=== PATIENT | female | born 1960 | race Caucasian/White ===

== ENCOUNTER 2016-06-16 14:40 | Emergency (ER) | payer OTHER ==
[2016-06-16] MEDS ORDERED: ONDANSETRON 4 MG/2 ML VIAL IVP STA ×2 (17:26→18:56)
[2016-06-16] MEDS ORDERED: SODIUM CHLORIDE 0.9% 1,000 ML IV STA ×2 (17:26)
--- NOTE | 2016-06-16 17:30 | ED ---
General Adult HPI - General Chief complaint: Recheck/Abnormal Lab/Rx Stated complaint: diabetes, sugar high Time Seen by Provider: 06/16/16 17:19 Source: patient, RN notes reviewed Mode of arrival: ambulatory - History of Present Illness Initial comments: Patient is a 56-year-old female who presents emergency room today with a chief complaint of elevated blood glucose. She does admit that earlier today her meter read high. She states last dose of insulin was around lunchtime. She states after that she checked her sugar and meter was elevated. Did not give her number. She states she has had some symptoms of nausea. Does make to some lower abdominal pain. Does make to a slight migraine headache that is just starting. Patient states she's felt a little dizzy. She denies any other complaints or symptoms. Patient denies any recent fever, chills, shortness of breath, chest pain, back pain, vomiting, numbness or tingling, dysuria or hematuria, constipation or diarrhea, headaches or visual changes, or any other complaints. - Related Data Home Medications Medication Instructions Recorded Confirmed Insulin Glargine,Hum.rec.anlog 30 unit SQ HS 03/29/14 06/16/16 [Lantus Solostar] Atorvastatin [Lipitor] 80 mg PO HS 04/28/15 06/16/16 Clopidogrel [Plavix] 75 mg PO DAILY 04/28/15 06/16/16 Insulin Glulisine [Apidra] 7 unit SQ AC-TID 04/28/15 06/16/16 Levothyroxine Sodium [Synthroid] 200 mcg PO DAILY 04/28/15 06/16/16 Omeprazole [PriLOSEC] 20 mg PO BID 04/28/15 06/16/16 Venlafaxine HCl ER [Effexor XR] 150 mg PO DAILY 04/28/15 06/16/16 cloNIDine HCL [Catapres] 0.1 mg PO HS 04/28/15 06/16/16 Ergocalciferol [Vitamin D2 50,000 unit PO TU 10/11/15 06/16/16 (DRISDOL)] Aspirin 81 mg PO HS 11/09/15 06/16/16 Loratadine [Claritin] 10 mg PO DAILY 11/09/15 06/16/16 Calcium Carbonate [Calcium] 600 mg PO DAILY 03/07/16 06/16/16 Multivitamins, Thera [Multivitamin] 1 tab PO DAILY 03/07/16 06/16/16 Gabapentin [Neurontin] 300 mg PO TID 05/01/16 06/16/16 Previous Rx's Medication Instructions Recorded Linagliptin [Tradjenta] 5 mg PO DAILY #30 tablet 05/13/16 metFORMIN HCL [Glucophage] 500 mg PO AC-SUPPER tab 05/16/16 Allergies Allergy/AdvReac Type Severity Reaction Status Date / Time latex Allergy Rash/Hives Verified 06/16/16 16:45 Sulfa (Sulfonamide Allergy Rash/Hives Verified 06/16/16 16:45 Antibiotics) hydrocodone AdvReac Nausea Verified 06/16/16 16:45 prochlorperazine edisylate AdvReac Vomiting Verified 06/16/16 16:45 [From Compazine] prochlorperazine maleate AdvReac Vomiting Verified 06/16/16 16:45 [From Compazine] Review of Systems ROS Statement: Those systems with pertinent positive or pertinent negative responses have been documented in the HPI. ROS Other: All systems not noted in ROS Statement are negative. 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 Source:: URINE E.COLI, EC GALLINARUM Past Surgical History: Appendectomy, Section, Heart Catheterization Additional Past Surgical History / Comment(s): thyroidectomy(non functioning) heart cath 06-18-12 100% occluded lad unable to stent, part of lt kidney removed d /t cancer Past Anesthesia/Blood Transfusion Reactions: No Reported Reaction Past Psychological History: Anxiety, Depression Additional Psychological History / Comment(s): TAKES EFFEXOR FOR DEPRESSION STATED SHE FEELS MAINTAINED ON THAT MEDICATION.DENIES ANY THOUGHTS OF HARMING SELF.pt lives with her twin sister,is independant,gets ssi assistance. Smoking Status: Current every day smoker Past Alcohol Use History: None Reported Additional Past Alcohol Use History / Comment(s): STARTED SMOKING AT AGE 10.HAD WORKED UP TO 3 PPD BUT HAS CUT DOWN IN ATTEMP TO QUIT NOQ SMOKES 1 PPD Past Drug Use History: Marijuana Additional Drug Use History / Comment(s): OCC USES MARIJUANA-LASRT USED 1 WEEK AGO. - Past Family History Father Family Medical History: Myocardial Infarction ([place]) Additional Family Medical History / Comment(s): from mi at age 48 Mother Family Medical History: Cancer Additional Family Medical History / Comment(s): maeve breasts removed d/t cancer, hysterectomy d/t cancer General Exam - General Exam Comments Initial Comments: General: The patient is awake and alert, in no distress, and does not appear acutely ill. Eye: Pupils are equal, round and reactive to light, extra-ocular movements are intact. No nystagmus. There is normal conjunctiva bilaterally. No signs of icterus. Ears, nose, mouth and throat: There are moist mucous membranes and no oral lesions. Neck: The neck is supple, there is no tenderness or JVD. Cardiovascular: There is a regular rate and rhythm. No murmur, rub or gallop is appreciated. Respiratory: Lungs are clear to auscultation, respirations are non-labored, breath sounds are equal. No wheezes, stridor, rales, or rhonchi. Gastrointestinal: Soft, non-distended, non-tender abdomen without masses or organomegaly noted. There is no rebound or guarding present. No CVA tenderness. Bowel sounds are unremarkable. Musculoskeletal: Normal ROM, no tenderness. Strength 5/5. Sensation intact. Pulses equal bilaterally 2+. Neurological: A&O x 3. CN II-XII intact, There are no obvious motor or sensory deficits. Coordination appears grossly intact. Speech is normal. Skin: Skin is warm and dry and no rashes or lesions are noted. Psychiatric: Cooperative, appropriate mood & affect, normal judgment. Course Vital Signs 06/16/16 06/16/16 06/16/16 16:41 18:23 18:45 Temperature 97.9 F Pulse Rate 94 80 81 Respiratory 18 18 15 Rate Blood Pressure 132/82 121/71 127/79 O2 Sat by Pulse 98 98 100 Oximetry 06/16/16 19:46 Temperature Pulse Rate 86 Respiratory 16 Rate Blood Pressure 127/79 O2 Sat by Pulse 98 Oximetry EKG Findings - EKG Comments: EKG Findings:: EKG performed at 1734: Shows normal sinus rhythm at 83 beats per minute. MD interval 128. QRS 86. QT/QTC 384/451. No acute ST changes. Medical Decision Making - Medical Decision Making Patient's labs been reviewed. Does show elevated blood glucose. Patient's acetone negative. Patient feeling better after nausea medication and fluids here in emergency room. Patient's also complained of a migraine headache. States migraines located in the front. States consistent with migraines is had in the past. States she usually takes Excedrin. Was given Excedrin here in emergency room. Patient also given Toradol for migraine. States she's feeling better. Patient states she does have an appointment with her family doctor this coming week. Patient will be discharged home advised continued sliding scale and following up with family doctor. Advised return if symptoms increase or worsen or for any other concerns. - Lab Data Result diagrams: 06/16/16 18:20 06/16/16 18:20 Lab Results 06/16/16 06/16/16 06/16/16 Range/Units 17:33 18:20 18:20 WBC 5.2 (3.8-10.6) k/uL RBC 4.21 (3.80-5.40) m/uL Hgb 11.8 (11.4-16.0) gm/dL Hct 36.2 (34.0-46.0) % MCV 86.0 (80.0-100.0) fL MCH 28.1 (25.0-35.0) pg MCHC 32.7 (31.0-37.0) g/dL RDW 14.0 (11.5-15.5) % Plt Count 180 (150-450) k/uL Neutrophils % 46 % Lymphocytes % 42 % Monocytes % 5 % Eosinophils % 4 % Basophils % 0 % Neutrophils # 2.4 (1.3-7.7) k/uL Lymphocytes # 2.2 (1.0-4.8) k/uL Monocytes # 0.3 (0-1.0) k/uL Eosinophils # 0.2 (0-0.7) k/uL Basophils # 0.0 (0-0.2) k/uL Sodium 134 L (137-145) mmol/L Potassium 4.3 (3.5-5.1) mmol/L Chloride 94 L (98-107) mmol/L Carbon Dioxide 29 (22-30) mmol/L Anion Gap 11 mmol/L BUN 16 (7-17) mg/dL Creatinine 0.80 (0.52-1.04) mg/dL Est GFR (MDRD) Af Amer >60 (>60 ml/min/1.73 sqM) Est GFR (MDRD) Non-Af >60 (>60 ml/min/1.73 sqM) Glucose 465 H* (74-99) mg/dL POC Glucose (mg/dL) 515 H (75-99) mg/dL POC Glu Heat Treater Helper ID [place] Calcium 9.9 (8.4-10.2) mg/dL Total Bilirubin 0.4 (0.2-1.3) mg/dL AST 19 (14-36) U/L ALT 33 (9-52) U/L Alkaline Phosphatase 137 H (38-126) U/L Total Protein 6.5 (6.3-8.2) g/dL Albumin 4.0 (3.5-5.0) g/dL Amylase <30 L (30-110) U/L Lipase 85 (23-300) U/L Urine Color Urine Appearance (Clear) Urine pH (5.0-8.0) Ur Specific [place] (1.001-1.035) Urine Protein (Negative) Urine Glucose (UA) (Negative) Urine Ketones (Negative) Urine Blood (Negative) Urine Nitrate (Negative) Urine Bilirubin (Negative) Urine Urobilinogen (<2.0) mg/dL Ur Leukocyte Esterase (Negative) Acetone, Qual Negative (Negative) 06/16/16 06/16/16 06/16/16 Range/Units 18:20 18:48 19:45 WBC (3.8-10.6) k/uL RBC (3.80-5.40) m/uL Hgb (11.4-16.0) gm/dL Hct (34.0-46.0) % MCV (80.0-100.0) fL MCH (25.0-35.0) pg MCHC (31.0-37.0) g/dL RDW (11.5-15.5) % Plt Count (150-450) k/uL Neutrophils % % Lymphocytes % % Monocytes % % Eosinophils % % Basophils % % Neutrophils # (1.3-7.7) k/uL Lymphocytes # (1.0-4.8) k/uL Monocytes # (0-1.0) k/uL Eosinophils # (0-0.7) k/uL Basophils # (0-0.2) k/uL Sodium (137-145) mmol/L Potassium (3.5-5.1) mmol/L Chloride (98-107) mmol/L Carbon Dioxide (22-30) mmol/L Anion Gap mmol/L BUN (7-17) mg/dL Creatinine (0.52-1.04) mg/dL Est GFR (MDRD) Af Amer (>60 ml/min/1.73 sqM) Est GFR (MDRD) Non-Af (>60 ml/min/1.73 sqM) Glucose (74-99) mg/dL POC Glucose (mg/dL) 388 H 305 H (75-99) mg/dL POC Glu Heat Treater Helper ID Ana Gomez Erin Calcium (8.4-10.2) mg/dL Total Bilirubin (0.2-1.3) mg/dL AST (14-36) U/L ALT (9-52) U/L Alkaline Phosphatase (38-126) U/L Total Protein (6.3-8.2) g/dL Albumin (3.5-5.0) g/dL Amylase (30-110) U/L Lipase (23-300) U/L Urine Color Light Yellow Urine Appearance Clear (Clear) Urine pH 7.0 (5.0-8.0) Ur Specific [place] 1.019 (1.001-1.035) Urine Protein Negative (Negative) Urine Glucose (UA) 4+ H (Negative) Urine Ketones Negative (Negative) Urine Blood Negative (Negative) Urine Nitrate Negative (Negative) Urine Bilirubin Negative (Negative) Urine Urobilinogen <2.0 (<2.0) mg/dL Ur Leukocyte Esterase Negative (Negative) Acetone, Qual (Negative) Disposition Clinical Impression: Hyperglycemia, Migraine, Nausea & vomiting Disposition: HOME SELF-CARE Condition: Good Instructions: Diabetic Hyperglycemia (ED) Additional Instructions: Please follow-up with family doctor in the next 2 days of symptoms have not improved. Please return to emergency room if the symptoms increase or worsen or for any other concerns. Referrals: Josep Nagel MD [Primary Care Provider] - 1-2 days Time of Disposition: 20:02
[2016-06-16 17:34] LABS: Glucose,Whole Blood 515 mg/dL (75-99)
[2016-06-16] MEDS ORDERED: INSULIN LISPRO (humaLOG) 300 UNIT/3 ML VIAL SQ ONE ×2 (17:41→18:54)
--- NOTE | 2016-06-16 18:17 | XR ---
EXAMINATION TYPE: XR KUB DATE OF EXAM: 06/16/2016 6:10 PM COMPARISON: 05/01/2016 HISTORY: Abdominal pain TECHNIQUE: 2 views FINDINGS: Bowel gas pattern is normal. There is no sign of intestinal obstruction or pneumoperitoneum . Fecal pattern is normal. Lung bases are clear. IMPRESSION: Nonacute abdomen.
[2016-06-16] MEDS ORDERED: ASPIRIN-ACET-CAFF 250-250-65MG 1 EACH TAB PO STA (18:29)
[2016-06-16 18:42] LABS: Appearance,Urine Clear (Clear); Bilirubin,Urine Negative (Negative); Glucose,Urine (UA) 4+ (Negative); Ketones,Urine Negative (Negative); Leukocyte Esterase,Urine Negative (Negative); Nitrite,Urine Negative (Negative); Protein,Urine Negative (Negative); Specific Gravity,Urine 1.019 (1.001-1.035); UA Billing (MACRO vs. MICRO) CHEM; Urobilinogen,Urine <2.0 mg/dL (<2.0)
[2016-06-16 18:51] LABS: Basophils % (A) 0 %; CH 29.7; CHCM 34.7; Eosinophils # (A) 0.2 k/uL (0-0.7); Eosinophils % (A) 4 %; HCT 36.2 % (34.0-46.0); HDW 2.96; HGB 11.8 gm/dL (11.4-16.0); Luc % (Auto) 2; Lymphocytes # (A) 2.2 k/uL (1.0-4.8); Lymphocytes % (A) 42 %; MCH 28.1 pg (25.0-35.0); MCHC 32.7 g/dL (31.0-37.0); Mean Platelet Volume 7.8; Monocytes # (A) 0.3 k/uL (0-1.0); Monocytes % (A) 5 %; Neutrophils # (A) 2.4 k/uL (1.3-7.7); Neutrophils % (A) 46 %; RBC 4.21 m/uL (3.80-5.40); WBC 5.2 k/uL (3.8-10.6)
[2016-06-16 18:51] LABS: Glucose,Whole Blood 388 mg/dL (75-99)
[2016-06-16 18:53] LABS: ALT 33 U/L (9-52); AST 19 U/L (14-36); Alkaline Phosphatase 137 U/L (38-126); Amylase <30 U/L (30-110); Anion Gap 11 mmol/L; Blood Urea Nitrogen 16 mg/dL (7-17); Calcium 9.9 mg/dL (8.4-10.2); Carbon Dioxide 29 mmol/L (22-30); Chloride 94 mmol/L (98-107); Non-African American GFR(MDRD) >60 (>60 ml/min/1.73 sqM); Potassium 4.3 mmol/L (3.5-5.1); Sodium 134 mmol/L (137-145); Total Bilirubin 0.4 mg/dL (0.2-1.3); Total Protein 6.5 g/dL (6.3-8.2)
[2016-06-16 19:20] LABS: Glucose 465 mg/dL (74-99)
[2016-06-16] MEDS ORDERED: KETOROLAC 30 MG/ML 1 ML VIAL IVP STA (19:37)
[2016-06-16 19:46] LABS: Glucose,Whole Blood 305 mg/dL (75-99)
[2016-06-16 20:27] VITALS: BP 132/75; PULSE 83; RESP 20; TEMP 97.7
== END 2016-06-16 20:27 | disposition home or self-care (01) ==
LOC: EC 14:40
DX: E11.65 Type 2 diabetes mellitus with hyperglycemia (principal); G43.909 Migraine, unspecified, not intractable, without status migrainosus; I10 Essential (primary) hypertension; K21.9 Gastro-esophageal reflux disease without esophagitis; E78.5 Hyperlipidemia, unspecified; E07.9 Disorder of thyroid, unspecified; F32.9 Major depressive disorder, single episode, unspecified; F41.9 Anxiety disorder, unspecified; F17.200 Nicotine dependence, unspecified, uncomplicated; I25.2 Old myocardial infarction; Z79.4 Long term (current) use of insulin; Z79.84 Long term (current) use of oral hypoglycemic drugs; Z79.02 Long term (current) use of antithrombotics/antiplatelets; Z79.82 Long term (current) use of aspirin; Z79.899 Other long term (current) drug therapy; Z91.040 Latex allergy status; Z88.2 Allergy status to sulfonamides
CPT/HCPCS: 99285; 96374; 96375; 96376; 96361 ×2; 36415; 93005; 80053; 82150; 82009; 83690; 85025; 81003; 74000; J2405; J1885

== ENCOUNTER 2016-07-05 13:57 | Emergency (ER) | payer OTHER ==
[2016-07-05 14:33] VITALS: RESP 16
[2016-07-05] MEDS ORDERED: SODIUM CHLORIDE 0.9% 1,000 ML IV STA (15:00)
--- NOTE | 2016-07-05 15:03 | ED ---
General Adult HPI - General Chief complaint: Recheck/Abnormal Lab/Rx Stated complaint: High Sugar Time Seen by Provider: 07/05/16 14:55 Source: patient, RN notes reviewed Mode of arrival: wheelchair Limitations: no limitations - History of Present Illness Initial comments: 56-year-old female presents emergency Department chief complaint diarrhea, hyperglycemia. Patient states she's been having ongoing diarrhea she states she has about 3 episodes a week. Patient denies any abdominal pain associated with. She states she does have some right flank pain and she has urinary tract infections frequently. Patient denies any vomiting states she saline nauseated. Patient states that she was at [facility] in which she checked her blood sugar and told it was high. She went home rechecked it was 550. Patient states that she did take her Lantus this morning along with her pager. She states that she did not eat lunch and did not take her up he drilled at lunch. Patient states that she has not been taken her Januvia as it recently has not been covered by her insurance. Patient denies any chest pain or shortness breath. Denies any dysuria or hematuria. - Related Data Home Medications Medication Instructions Recorded Confirmed Insulin Glargine,Hum.rec.anlog 30 unit SQ W/SUPPER 03/29/14 07/05/16 [Lantus Solostar] Atorvastatin [Lipitor] 80 mg PO HS 04/28/15 07/05/16 Clopidogrel [Plavix] 75 mg PO DAILY 04/28/15 07/05/16 Insulin Glulisine [Apidra] 7 unit SQ AC-BID 04/28/15 07/05/16 Levothyroxine Sodium [Synthroid] 200 mcg PO DAILY 04/28/15 07/05/16 Omeprazole [PriLOSEC] 20 mg PO BID 04/28/15 07/05/16 Venlafaxine HCl ER [Effexor XR] 150 mg PO DAILY 04/28/15 07/05/16 cloNIDine HCL [Catapres] 0.1 mg PO HS 04/28/15 07/05/16 Ergocalciferol [Vitamin D2 50,000 unit PO TU 10/11/15 07/05/16 (DRISDOL)] Loratadine [Claritin] 10 mg PO DAILY 11/09/15 07/05/16 Calcium Carbonate [Calcium] 600 mg PO DAILY 03/07/16 07/05/16 Multivitamins, Thera [Multivitamin] 1 tab PO DAILY 03/07/16 07/05/16 Gabapentin [Neurontin] 300 mg PO TID 05/01/16 07/05/16 Insulin Glargine,Hum.rec.anlog 15 unit SQ DAILY 07/05/16 07/05/16 [Lantus Solostar] metFORMIN HCL [Glucophage] 500 mg PO BID 07/05/16 07/05/16 Previous Rx's Medication Instructions Recorded Linagliptin [Tradjenta] 5 mg PO DAILY #30 tablet 05/13/16 Ondansetron Odt [Zofran ODT] 4 mg PO Q8HR PRN #15 tab 06/16/16 Allergies Allergy/AdvReac Type Severity Reaction Status Date / Time latex Allergy Rash/Hives Verified 07/05/16 14:50 Sulfa (Sulfonamide Allergy Rash/Hives Verified 07/05/16 14:50 Antibiotics) hydrocodone AdvReac Nausea Verified 07/05/16 14:50 prochlorperazine edisylate AdvReac Vomiting Verified 07/05/16 14:50 [From Compazine] prochlorperazine maleate AdvReac Vomiting Verified 07/05/16 14:50 [From Compazine] Review of Systems ROS Statement: Those systems with pertinent positive or pertinent negative responses have been documented in the HPI. ROS Other: All systems not noted in ROS Statement are negative. 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 Source:: URINE E.COLI, EC GALLINARUM Past Surgical History: Appendectomy, Section, Heart Catheterization Additional Past Surgical History / Comment(s): thyroidectomy(non functioning) heart cath 06-18-12 100% occluded lad unable to stent, part of lt kidney removed d /t cancer Past Anesthesia/Blood Transfusion Reactions: No Reported Reaction Past Psychological History: Anxiety, Depression Additional Psychological History / Comment(s): TAKES EFFEXOR FOR DEPRESSION STATED SHE FEELS MAINTAINED ON THAT MEDICATION.DENIES ANY THOUGHTS OF HARMING SELF.pt lives with her twin sister,is independant,gets ssi assistance. Smoking Status: Current every day smoker Past Alcohol Use History: None Reported Additional Past Alcohol Use History / Comment(s): STARTED SMOKING AT AGE 10.HAD WORKED UP TO 3 PPD BUT HAS CUT DOWN IN ATTEMP TO QUIT NOQ SMOKES 1 PPD Past Drug Use History: Marijuana Additional Drug Use History / Comment(s): OCC USES MARIJUANA-LASRT USED 1 WEEK AGO. - Past Family History Father Family Medical History: Myocardial Infarction ([place]) Additional Family Medical History / Comment(s): from [place] at age 48 Mother Family Medical History: Cancer Additional Family Medical History / Comment(s): maeve breasts removed d/t cancer, hysterectomy d/t cancer General Exam Limitations: no limitations General appearance: alert, in no apparent distress Head exam: Present: atraumatic, normocephalic, normal inspection Neck exam: Present: normal inspection, full ROM. Absent: tenderness, meningismus, lymphadenopathy Respiratory exam: Present: normal lung sounds bilaterally. Absent: respiratory distress, wheezes, rales, rhonchi, stridor Cardiovascular Exam: Present: normal rhythm, tachycardia, normal heart sounds. Absent: systolic murmur, diastolic murmur, rubs, gallop, clicks GI/Abdominal exam: Present: soft, normal bowel sounds. Absent: distended, tenderness, guarding, rebound, rigid Back exam: Absent: CVA tenderness (R), CVA tenderness (L) Skin exam: Present: warm, dry, intact, normal color. Absent: rash Course Vital Signs 07/05/16 07/05/16 14:29 15:56 Temperature 98.3 F Pulse Rate 118 H 88 Respiratory 16 16 Rate Blood Pressure 110/75 118/74 O2 Sat by Pulse 96 Oximetry Medical Decision Making - Medical Decision Making 56-year-old female presented emergency department with chief complaint of hyperglycemia. Patient's hyperglycemia is most likely related to her not taken her Januvia. I discussed her that she is on insulin and that if she is not going to take oral medications that they need to adjust her insulin dosing. Patient blood glucose went from 620 07/19/1963. Patient is requesting to be discharged at this time. I did advise that she needs to closely monitor her blood sugar at home, give herself her a Gee weavershakiraleandreturnifsymptomsworsen. - Lab Data Result diagrams: 07/05/16 15:36 07/05/16 15:36 Lab Results 07/05/16 07/05/16 07/05/16 Range/Units 15:36 15:36 15:36 WBC 6.6 (3.8-10.6) k/uL RBC 4.67 (3.80-5.40) m/uL Hgb 13.2 (11.4-16.0) gm/dL Hct 39.9 (34.0-46.0) % MCV 85.5 (80.0-100.0) fL MCH 28.3 (25.0-35.0) pg MCHC 33.1 (31.0-37.0) g/dL RDW 13.9 (11.5-15.5) % Plt Count 227 (150-450) k/uL Neutrophils % 64 % Lymphocytes % 29 % Monocytes % 3 % Eosinophils % 2 % Basophils % 0 % Neutrophils # 4.2 (1.3-7.7) k/uL Lymphocytes # 1.9 (1.0-4.8) k/uL Monocytes # 0.2 (0-1.0) k/uL Eosinophils # 0.2 (0-0.7) k/uL Basophils # 0.0 (0-0.2) k/uL Sodium 134 L (137-145) mmol/L Potassium 4.5 (3.5-5.1) mmol/L Chloride 95 L (98-107) mmol/L Carbon Dioxide 24 (22-30) mmol/L Anion Gap 15 mmol/L BUN 17 (7-17) mg/dL Creatinine 0.78 (0.52-1.04) mg/dL Est GFR (MDRD) Af Amer >60 (>60 ml/min/1.73 sqM) Est GFR (MDRD) Non-Af >60 (>60 ml/min/1.73 sqM) Glucose 620 H* (74-99) mg/dL POC Glucose (mg/dL) (75-99) mg/dL POC Glu Speech And Language Assistant ID Calcium 10.1 (8.4-10.2) mg/dL Total Bilirubin 0.5 (0.2-1.3) mg/dL AST 20 (14-36) U/L ALT 31 (9-52) U/L Alkaline Phosphatase 191 H (38-126) U/L Total Protein 7.3 (6.3-8.2) g/dL Albumin 4.3 (3.5-5.0) g/dL Amylase <30 L (30-110) U/L Lipase 105 (23-300) U/L Urine Color Light Yellow Urine Appearance Clear (Clear) Urine pH 5.0 (5.0-8.0) Ur Specific [place] 1.025 (1.001-1.035) Urine Protein Negative (Negative) Urine Glucose (UA) 4+ H (Negative) Urine Ketones Negative (Negative) Urine Blood Negative (Negative) Urine Nitrate Negative (Negative) Urine Bilirubin Negative (Negative) Urine Urobilinogen <2.0 (<2.0) mg/dL Ur Leukocyte Esterase Negative (Negative) Acetone, Qual Negative (Negative) 07/05/16 07/05/16 07/05/16 Range/Units 15:51 15:52 17:27 WBC (3.8-10.6) k/uL RBC (3.80-5.40) m/uL Hgb (11.4-16.0) gm/dL Hct (34.0-46.0) % MCV (80.0-100.0) fL MCH (25.0-35.0) pg MCHC (31.0-37.0) g/dL RDW (11.5-15.5) % Plt Count (150-450) k/uL Neutrophils % % Lymphocytes % % Monocytes % % Eosinophils % % Basophils % % Neutrophils # (1.3-7.7) k/uL Lymphocytes # (1.0-4.8) k/uL Monocytes # (0-1.0) k/uL Eosinophils # (0-0.7) k/uL Basophils # (0-0.2) k/uL Sodium (137-145) mmol/L Potassium (3.5-5.1) mmol/L Chloride (98-107) mmol/L Carbon Dioxide (22-30) mmol/L Anion Gap mmol/L BUN (7-17) mg/dL Creatinine (0.52-1.04) mg/dL Est GFR (MDRD) Af Amer (>60 ml/min/1.73 sqM) Est GFR (MDRD) Non-Af (>60 ml/min/1.73 sqM) Glucose (74-99) mg/dL POC Glucose (mg/dL) 577 H 592 H 364 H (75-99) mg/dL POC Glu Speech And Language Assistant Melvin Connor, Debbie Cooper Calcium (8.4-10.2) mg/dL Total Bilirubin (0.2-1.3) mg/dL AST (14-36) U/L ALT (9-52) U/L Alkaline Phosphatase (38-126) U/L Total Protein (6.3-8.2) g/dL Albumin (3.5-5.0) g/dL Amylase (30-110) U/L Lipase (23-300) U/L Urine Color Urine Appearance (Clear) Urine pH (5.0-8.0) Ur Specific [place] (1.001-1.035) Urine Protein (Negative) Urine Glucose (UA) (Negative) Urine Ketones (Negative) Urine Blood (Negative) Urine Nitrate (Negative) Urine Bilirubin (Negative) Urine Urobilinogen (<2.0) mg/dL Ur Leukocyte Esterase (Negative) Acetone, Qual (Negative) Disposition Clinical Impression: Hyperglycemia Disposition: HOME SELF-CARE Condition: Stable Instructions: Diabetic Hyperglycemia (ED) Additional Instructions: Please return to the Emergency Department if symptoms worsen or any other concerns. Time of Disposition: 17:33
[2016-07-05 15:44] LABS: Basophils % (A) 0 %; CHCM 34.1; Eosinophils # (A) 0.2 k/uL (0-0.7); Eosinophils % (A) 2 %; HCT 39.9 % (34.0-46.0); HDW 3.19; HGB 13.2 gm/dL (11.4-16.0); Luc # (Auto) 0.08; Luc % (Auto) 1; Lymphocytes # (A) 1.9 k/uL (1.0-4.8); Lymphocytes % (A) 29 %; MCH 28.3 pg (25.0-35.0); MCHC 33.1 g/dL (31.0-37.0); MCV 85.5 fL (80.0-100.0); Mean Platelet Volume 7.4; Monocytes # (A) 0.2 k/uL (0-1.0); Monocytes % (A) 3 %; Neutrophils # (A) 4.2 k/uL (1.3-7.7); Neutrophils % (A) 64 %; RBC 4.67 m/uL (3.80-5.40); RDW 13.9 % (11.5-15.5); WBC 6.6 k/uL (3.8-10.6); WBC (Perox) 6.71
[2016-07-05 15:48] LABS: Appearance,Urine Clear (Clear); Bilirubin,Urine Negative (Negative); Glucose,Urine (UA) 4+ (Negative); Ketones,Urine Negative (Negative); Leukocyte Esterase,Urine Negative (Negative); Nitrite,Urine Negative (Negative); Protein,Urine Negative (Negative); Specific Gravity,Urine 1.025 (1.001-1.035); UA Billing (MACRO vs. MICRO) CHEM; Urobilinogen,Urine <2.0 mg/dL (<2.0)
[2016-07-05] MEDS ORDERED: INSULIN REGULAR 100 UNIT/ML VIAL IV ONE (15:55)
[2016-07-05 16:05] LABS: Glucose,Whole Blood 577 mg/dL (75-99)
[2016-07-05 16:05] LABS: Glucose,Whole Blood 592 mg/dL (75-99)
[2016-07-05 16:31] LABS: ALT 31 U/L (9-52); AST 20 U/L (14-36); Alkaline Phosphatase 191 U/L (38-126); Amylase <30 U/L (30-110); Anion Gap 15 mmol/L; Blood Urea Nitrogen 17 mg/dL (7-17); Calcium 10.1 mg/dL (8.4-10.2); Carbon Dioxide 24 mmol/L (22-30); Chloride 95 mmol/L (98-107); Non-African American GFR(MDRD) >60 (>60 ml/min/1.73 sqM); Potassium 4.5 mmol/L (3.5-5.1); Sodium 134 mmol/L (137-145); Total Bilirubin 0.5 mg/dL (0.2-1.3); Total Protein 7.3 g/dL (6.3-8.2)
[2016-07-05 16:40] LABS: Glucose 620 mg/dL (74-99)
[2016-07-05] MEDS ORDERED: SODIUM CHLORIDE 0.9% 1,000 ML IV ONE (16:42)
[2016-07-05 17:30] LABS: Glucose,Whole Blood 364 mg/dL (75-99)
[2016-07-05 17:54] VITALS: BP 128/82; PULSE 76; TEMP 98
[2016-07-05] MEDS ORDERED: KETOROLAC 30 MG/ML 1 ML VIAL IVP STA (18:04)
== END 2016-07-05 18:35 | disposition home or self-care (01) ==
LOC: EC 13:57
DX: E11.65 Type 2 diabetes mellitus with hyperglycemia (principal); R19.7 Diarrhea, unspecified; I10 Essential (primary) hypertension; R10.9 Unspecified abdominal pain; E78.5 Hyperlipidemia, unspecified; E07.9 Disorder of thyroid, unspecified; K21.9 Gastro-esophageal reflux disease without esophagitis; I25.2 Old myocardial infarction; F32.9 Major depressive disorder, single episode, unspecified; F41.9 Anxiety disorder, unspecified; G25.81 Restless legs syndrome; J45.909 Unspecified asthma, uncomplicated; Z85.528 Personal history of other malignant neoplasm of kidney; Z79.4 Long term (current) use of insulin; Z79.02 Long term (current) use of antithrombotics/antiplatelets; Z79.84 Long term (current) use of oral hypoglycemic drugs; Z88.5 Allergy status to narcotic agent; Z88.2 Allergy status to sulfonamides; Z88.8 Allergy status to other drugs, medicaments and biological substances; Z91.040 Latex allergy status; F17.200 Nicotine dependence, unspecified, uncomplicated; Z87.440 Personal history of urinary (tract) infections
CPT/HCPCS: 36415; 80053; 82150; 82009; 83690; 85025; 81003; 87086; 96374; 96361 ×3; 99283; J1885

== ENCOUNTER 2016-09-04 14:52 | Emergency (ER) | payer OTHER ==
[2016-09-04 15:03] LABS: Glucose,Whole Blood 166 mg/dL (75-99)
[2016-09-04 15:08] VITALS: RESP 16
--- NOTE | 2016-09-04 16:01 | ED ---
General Adult HPI - General Chief complaint: Dizziness Stated complaint: VERTIGO, DIABETIC Time Seen by Provider: 09/04/16 15:01 Source: patient, EMS, RN notes reviewed, old records reviewed Mode of arrival: EMS Limitations: no limitations - History of Present Illness Initial comments: This is a 56-year-old female with a ER for evaluation. Today this patient presents for evaluation of multiple complaints. Patient states she has history of dizziness with history of vertigo for 3 weeks. Patient also complains of her blood sugar being low. Patient did take some sugar at home. Patient has multiple medical comorbidities is but states her main issue right now is that she wants to kill her boyfriend. He's been going in and out of the emergency room or see her heart attack and that is something that bothers her. She states she is very stressed very depressed and has been admitted to psychiatric floor and states that she needs psychiatric treatment at this time - Related Data Home Medications Medication Instructions Recorded Confirmed Insulin Glargine,Hum.rec.anlog 30 unit SQ W/SUPPER 03/29/14 09/04/16 [Lantus Solostar] Clopidogrel [Plavix] 75 mg PO DAILY 04/28/15 09/04/16 Insulin Glulisine [Apidra] 10 unit SQ AC-BID 04/28/15 09/04/16 Levothyroxine Sodium [Synthroid] 200 mcg PO DAILY 04/28/15 09/04/16 Omeprazole [PriLOSEC] 40 mg PO DAILY 04/28/15 09/04/16 Venlafaxine HCl ER [Effexor XR] 150 mg PO DAILY 04/28/15 09/04/16 cloNIDine HCL [Catapres] 0.1 mg PO HS 04/28/15 09/04/16 Ergocalciferol [Vitamin D2 50,000 unit PO TU 10/11/15 09/04/16 (DRISDOL)] Insulin Glargine,Hum.rec.anlog 20 unit SQ W/BRKFST 07/05/16 09/04/16 [Lantus Solostar] Aspirin [Adult Low Dose Aspirin EC] 81 mg PO DAILY 09/04/16 09/04/16 Atorvastatin [Lipitor] 40 mg PO HS 09/04/16 09/04/16 Baclofen 10 mg PO DAILY 09/04/16 09/04/16 Insulin Glargine,Hum.rec.anlog 10 unit SQ W/LUNCH 09/04/16 09/04/16 [Lantus Solostar] Naproxen [Naprosyn] 500 mg PO BID 09/04/16 09/04/16 Allergies Allergy/AdvReac Type Severity Reaction Status Date / Time bee pollen Allergy Unknown Verified 09/04/16 15:26 latex Allergy Rash/Hives Verified 09/04/16 15:26 Sulfa (Sulfonamide Allergy Rash/Hives Verified 09/04/16 15:26 Antibiotics) hydrocodone AdvReac Nausea Verified 09/04/16 15:26 morphine AdvReac Unknown Verified 09/04/16 15:26 prochlorperazine edisylate AdvReac Vomiting Verified 09/04/16 15:26 [From Compazine] prochlorperazine maleate AdvReac Vomiting Verified 09/04/16 15:26 [From Compazine] Review of Systems ROS Statement: Those systems with pertinent positive or pertinent negative responses have been documented in the HPI. ROS Other: All systems not noted in ROS Statement are negative. Past Medical History Past Medical History: Asthma, Cancer, Chest Pain / Angina, Diabetes Mellitus, GERD/Reflux, Hyperlipidemia, Hypertension, Myocardial Infarction ([place]), Thyroid Disorder Additional Past Medical History / Comment(s): rls, KIDNEY CANCER, Last Myocardial Infarction Date:: 2012 History of Any Multi-Drug Resistant Organisms: ESBL Date of last positivie culture/infection: 05/07/16 ESBL, 05/15/16 VRE MDRO Source:: URINE E.COLI, EC GALLINARUM Past Surgical History: Appendectomy, Section, Heart Catheterization Additional Past Surgical History / Comment(s): thyroidectomy(non functioning) heart cath 06-18-12 100% occluded lad unable to stent, part of lt kidney removed d /t cancer Past Anesthesia/Blood Transfusion Reactions: No Reported Reaction Past Psychological History: Anxiety, Depression Additional Psychological History / Comment(s): TAKES EFFEXOR FOR DEPRESSION STATED SHE FEELS MAINTAINED ON THAT MEDICATION.DENIES ANY THOUGHTS OF HARMING SELF.pt lives with her twin sister,is independant,gets ssi assistance. Smoking Status: Current every day smoker Past Alcohol Use History: None Reported Additional Past Alcohol Use History / Comment(s): STARTED SMOKING AT AGE 10.HAD WORKED UP TO 3 PPD BUT HAS CUT DOWN IN ATTEMP TO QUIT NOQ SMOKES 1 PPD Past Drug Use History: Marijuana Additional Drug Use History / Comment(s): OCC USES MARIJUANA-LASRT USED 1 WEEK AGO. - Past Family History Father Family Medical History: Myocardial Infarction ([place]) Additional Family Medical History / Comment(s): from [place] at age 48 Mother Family Medical History: Cancer Additional Family Medical History / Comment(s): maeve breasts removed d/t cancer, hysterectomy d/t cancer General Exam Limitations: no limitations General appearance: alert, in no apparent distress Head exam: Present: atraumatic, normocephalic, normal inspection Eye exam: Present: normal appearance, PERRL, EOMI. Absent: scleral icterus, conjunctival injection, periorbital swelling ENT exam: Present: normal exam, mucous membranes moist Neck exam: Present: normal inspection. Absent: tenderness, meningismus, lymphadenopathy Respiratory exam: Present: normal lung sounds bilaterally. Absent: respiratory distress, wheezes, rales, rhonchi, stridor Cardiovascular Exam: Present: regular rate, normal rhythm, normal heart sounds. Absent: systolic murmur, diastolic murmur, rubs, gallop, clicks GI/Abdominal exam: Present: soft, normal bowel sounds. Absent: distended, tenderness, guarding, rebound, rigid Extremities exam: Present: normal inspection, full ROM, normal capillary refill. Absent: tenderness, pedal edema, joint swelling, calf tenderness Back exam: Present: normal inspection Neurological exam: Present: alert, oriented X3, CN II-XII intact Psychiatric exam: Present: normal affect, normal mood Skin exam: Present: warm, dry, intact, normal color. 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
[2016-09-04 19:46] VITALS: BP 129/77; PULSE 77; TEMP 98.1
== END 2016-09-04 19:45 | disposition home or self-care (01) ==
LOC: EC 14:52
DX: E11.9 Type 2 diabetes mellitus without complications (principal); F32.9 Major depressive disorder, single episode, unspecified; R42 Dizziness and giddiness; K21.9 Gastro-esophageal reflux disease without esophagitis; E78.5 Hyperlipidemia, unspecified; F41.9 Anxiety disorder, unspecified; I10 Essential (primary) hypertension; I25.2 Old myocardial infarction; E07.9 Disorder of thyroid, unspecified; F17.200 Nicotine dependence, unspecified, uncomplicated; Z79.4 Long term (current) use of insulin; Z79.82 Long term (current) use of aspirin; Z79.1 Long term (current) use of non-steroidal anti-inflammatories (NSAID); Z79.899 Other long term (current) drug therapy; Z91.030 Bee allergy status; Z91.040 Latex allergy status; Z88.2 Allergy status to sulfonamides; Z88.5 Allergy status to narcotic agent; Z88.8 Allergy status to other drugs, medicaments and biological substances; Z95.818 Presence of other cardiac implants and grafts
CPT/HCPCS: 36415; 82075; 99284

== ENCOUNTER 2016-09-16 07:50 | Inpatient (IN) | payer OTHER ==
[2016-09-16] MEDS ORDERED: SODIUM CHLORIDE 0.9% 1,000 ML IV STA (08:05)
[2016-09-16] MEDS ORDERED: ONDANSETRON 4 MG/2 ML VIAL IVP STA (08:21)
[2016-09-16] MEDS ORDERED: HYDROmorphone 1 MG/ML 1 ML SYRINGE IVP STA ×2 (08:21→11:02)
--- NOTE | 2016-09-16 08:32 | ED ---
Abdominal Pain HPI - General Chief Complaint: Abdominal Pain Stated Complaint: abd pain,diff breathing Time Seen by Provider: 09/16/16 08:04 Source: patient, EMS Mode of arrival: EMS - History of Present Illness Initial Comments: 56-year-old female patient presents to emergency department today for evaluation of upper abdominal pain and multiple episodes of vomiting. She states that symptoms started last night. Patient describes the pain as sharp and crampy, mostly in the left upper quadrant. She denies any constipation or diarrhea. She denies any blood in her vomit. Patient denies any dysuria, hematuria, urinary urgency. She states she has been urinating more frequently. Patient states she is mildly short of breath. She does have a cough but states this is chronic due to her smoking. She denies any chest, neck, or back pain. She denies any fever or chills. - Related Data Home Medications Medication Instructions Recorded Confirmed Insulin Glargine,Hum.rec.anlog 30 unit SQ W/SUPPER 03/29/14 09/16/16 [Lantus Solostar] Clopidogrel [Plavix] 75 mg PO DAILY 04/28/15 09/16/16 Insulin Glulisine [Apidra] 10 unit SQ AC-BID 04/28/15 09/16/16 Levothyroxine Sodium [Synthroid] 200 mcg PO DAILY 04/28/15 09/16/16 Omeprazole [PriLOSEC] 40 mg PO DAILY 04/28/15 09/16/16 Venlafaxine HCl ER [Effexor XR] 150 mg PO DAILY 04/28/15 09/16/16 cloNIDine HCL [Catapres] 0.1 mg PO HS 04/28/15 09/16/16 Ergocalciferol [Vitamin D2 50,000 unit PO TU 10/11/15 09/16/16 (DRISDOL)] Insulin Glargine,Hum.rec.anlog 20 unit SQ W/BRKFST 07/05/16 09/16/16 [Lantus Solostar] Aspirin [Adult Low Dose Aspirin EC] 81 mg PO DAILY 09/04/16 09/16/16 Atorvastatin [Lipitor] 40 mg PO HS 09/04/16 09/16/16 Baclofen 10 mg PO DAILY 09/04/16 09/16/16 Insulin Glargine,Hum.rec.anlog 10 unit SQ W/LUNCH 09/04/16 09/16/16 [Lantus Solostar] Naproxen [Naprosyn] 500 mg PO BID 09/04/16 09/16/16 Allergies Allergy/AdvReac Type Severity Reaction Status Date / Time bee pollen Allergy Unknown Verified 09/16/16 08:26 latex Allergy Rash/Hives Verified 09/16/16 08:26 Sulfa (Sulfonamide Allergy Rash/Hives Verified 09/16/16 08:26 Antibiotics) hydrocodone AdvReac Nausea Verified 09/16/16 08:26 morphine AdvReac Unknown Verified 09/16/16 08:26 prochlorperazine edisylate AdvReac Vomiting Verified 09/16/16 08:26 [From Compazine] prochlorperazine maleate AdvReac Vomiting Verified 09/16/16 08:26 [From Compazine] Review of Systems ROS Statement: Those systems with pertinent positive or pertinent negative responses have been documented in the HPI. ROS Other: All systems not noted in ROS Statement are negative. Past Medical History Past Medical History: Asthma, Cancer, Chest Pain / Angina, Diabetes Mellitus, GERD/Reflux, Hyperlipidemia, Hypertension, Myocardial Infarction ([place]), Thyroid Disorder Additional Past Medical History / Comment(s): rls, KIDNEY CANCER, Last Myocardial Infarction Date:: 2012 History of Any Multi-Drug Resistant Organisms: ESBL Date of last positivie culture/infection: 05/07/16 ESBL, 05/15/16 VRE MDRO Source:: URINE E.COLI, EC GALLINARUM Past Surgical History: Appendectomy, Section, Heart Catheterization Additional Past Surgical History / Comment(s): thyroidectomy(non functioning) heart cath 06-18-12 100% occluded lad unable to stent, part of lt kidney removed d /t cancer Past Anesthesia/Blood Transfusion Reactions: No Reported Reaction Past Psychological History: Anxiety, Depression Additional Psychological History / Comment(s): TAKES EFFEXOR FOR DEPRESSION STATED SHE FEELS MAINTAINED ON THAT MEDICATION.DENIES ANY THOUGHTS OF HARMING SELF.pt lives with her twin sister,is independant,gets ssi assistance. Smoking Status: Current every day smoker Past Alcohol Use History: None Reported Additional Past Alcohol Use History / Comment(s): STARTED SMOKING AT AGE 10.HAD WORKED UP TO 3 PPD BUT HAS CUT DOWN IN ATTEMP TO QUIT NOQ SMOKES 1 PPD Past Drug Use History: Marijuana Additional Drug Use History / Comment(s): OCC USES MARIJUANA-LASRT USED 1 WEEK AGO. - Past Family History Father Family Medical History: Myocardial Infarction ([place]) Additional Family Medical History / Comment(s): from [place] at age 48 Mother Family Medical History: Cancer Additional Family Medical History / Comment(s): maeve breasts removed d/t cancer, hysterectomy d/t cancer General Exam General appearance: alert, in no apparent distress Eye exam: Present: normal appearance, PERRL, EOMI. Absent: scleral icterus, conjunctival injection, periorbital swelling ENT exam: Present: normal exam, normal oropharynx, mucous membranes moist Neck exam: Present: normal inspection. Absent: tenderness, meningismus, lymphadenopathy Respiratory exam: Present: normal lung sounds bilaterally. Absent: respiratory distress, wheezes, rales, rhonchi, stridor Cardiovascular Exam: Present: normal rhythm, tachycardia, normal heart sounds. Absent: systolic murmur, diastolic murmur, rubs, gallop, clicks GI/Abdominal exam: Present: soft, tenderness (Left upper quadrant, midepigastric ), normal bowel sounds. Absent: distended, guarding, rebound, rigid Back exam: Present: normal inspection Neurological exam: Present: alert, oriented X3, CN II-XII intact Psychiatric exam: Present: normal affect, normal mood Skin exam: Present: warm, dry, intact, normal color. Absent: rash Course Vital Signs 09/16/16 09/16/16 09/16/16 07:51 09:53 11:10 Temperature 98.8 F 99.3 F 98.3 F Pulse Rate 126 H 110 H 110 H Respiratory 18 16 18 Rate Blood Pressure 164/91 121/69 163/97 O2 Sat by Pulse 98 99 98 Oximetry Medical Decision Making - Medical Decision Making Case was discussed with Dr. Hill by Dr. Dawkins. They felt they she may need ICU treatment. He did discuss with Dr. melchor and felt that she is stable for telemetry. Patient was started on antibiotics at this time consult surgery. Patient most likely has lung metastasis from her prior kidney cancer rather than septic emboli. Patient will be treated for pneumonia and small bowel obstruction.. Patient has no vomiting at this time. - Lab Data Result diagrams: 09/16/16 08:00 09/16/16 08:00 Lab Results 09/16/16 09/16/16 09/16/16 Range/Units 08:00 08:00 08:00 WBC 7.7 (3.8-10.6) k/uL RBC 4.83 (3.80-5.40) m/uL Hgb 13.4 (11.4-16.0) gm/dL Hct 42.8 (34.0-46.0) % MCV 88.6 (80.0-100.0) fL MCH 27.7 (25.0-35.0) pg MCHC 31.3 (31.0-37.0) g/dL RDW 13.9 (11.5-15.5) % Plt Count 266 (150-450) k/uL Neutrophils % 73 % Lymphocytes % 21 % Monocytes % 3 % Eosinophils % 1 % Basophils % 0 % Neutrophils # 5.6 (1.3-7.7) k/uL Lymphocytes # 1.6 (1.0-4.8) k/uL Monocytes # 0.2 (0-1.0) k/uL Eosinophils # 0.1 (0-0.7) k/uL Basophils # 0.0 (0-0.2) k/uL PT 10.4 (9.0-12.0) sec INR 1.0 (<1.1) APTT 18.6 L (22.0-30.0) sec D-Dimer (<0.60) mg/L FEU Sodium 143 (137-145) mmol/L Potassium 5.2 H (3.5-5.1) mmol/L Chloride 101 (98-107) mmol/L Carbon Dioxide 28 (22-30) mmol/L Anion Gap 14 mmol/L BUN 13 (7-17) mg/dL Creatinine 0.64 (0.52-1.04) mg/dL Est GFR (MDRD) Af Amer >60 (>60 ml/min/1.73 sqM) Est GFR (MDRD) Non-Af >60 (>60 ml/min/1.73 sqM) Glucose 365 H (74-99) mg/dL Calcium 10.3 H (8.4-10.2) mg/dL Total Bilirubin 0.6 (0.2-1.3) mg/dL AST 22 (14-36) U/L ALT 36 (9-52) U/L Alkaline Phosphatase 168 H (38-126) U/L Troponin I (0.000-0.034) ng/mL Total Protein 7.4 (6.3-8.2) g/dL Albumin 4.3 (3.5-5.0) g/dL Amylase 47 (30-110) U/L Lipase 63 (23-300) U/L Urine Color Urine Appearance (Clear) Urine pH (5.0-8.0) Ur Specific [place] (1.001-1.035) Urine Protein (Negative) Urine Glucose (UA) (Negative) Urine Ketones (Negative) Urine Blood (Negative) Urine Nitrite (Negative) Urine Bilirubin (Negative) Urine Urobilinogen (<2.0) mg/dL Ur Leukocyte Esterase (Negative) Acetone, Qual (Negative) 09/16/16 09/16/16 09/16/16 Range/Units 08:00 08:00 08:00 WBC (3.8-10.6) k/uL RBC (3.80-5.40) m/uL Hgb (11.4-16.0) gm/dL Hct (34.0-46.0) % MCV (80.0-100.0) fL MCH (25.0-35.0) pg MCHC (31.0-37.0) g/dL RDW (11.5-15.5) % Plt Count (150-450) k/uL Neutrophils % % Lymphocytes % % Monocytes % % Eosinophils % % Basophils % % Neutrophils # (1.3-7.7) k/uL Lymphocytes # (1.0-4.8) k/uL Monocytes # (0-1.0) k/uL Eosinophils # (0-0.7) k/uL Basophils # (0-0.2) k/uL PT (9.0-12.0) sec INR (<1.1) APTT (22.0-30.0) sec D-Dimer 13.57 H (<0.60) mg/L FEU Sodium (137-145) mmol/L Potassium (3.5-5.1) mmol/L Chloride (98-107) mmol/L Carbon Dioxide (22-30) mmol/L Anion Gap mmol/L BUN (7-17) mg/dL Creatinine (0.52-1.04) mg/dL Est GFR (MDRD) Af Amer (>60 ml/min/1.73 sqM) Est GFR (MDRD) Non-Af (>60 ml/min/1.73 sqM) Glucose (74-99) mg/dL Calcium (8.4-10.2) mg/dL Total Bilirubin (0.2-1.3) mg/dL AST (14-36) U/L ALT (9-52) U/L Alkaline Phosphatase (38-126) U/L Troponin I <0.012 (0.000-0.034) ng/mL Total Protein (6.3-8.2) g/dL Albumin (3.5-5.0) g/dL Amylase (30-110) U/L Lipase (23-300) U/L Urine Color Urine Appearance (Clear) Urine pH (5.0-8.0) Ur Specific [place] (1.001-1.035) Urine Protein (Negative) Urine Glucose (UA) (Negative) Urine Ketones (Negative) Urine Blood (Negative) Urine Nitrite (Negative) Urine Bilirubin (Negative) Urine Urobilinogen (<2.0) mg/dL Ur Leukocyte Esterase (Negative) Acetone, Qual Positive (Negative) 09/16/16 Range/Units 09:12 WBC (3.8-10.6) k/uL RBC (3.80-5.40) m/uL Hgb (11.4-16.0) gm/dL Hct (34.0-46.0) % MCV (80.0-100.0) fL MCH (25.0-35.0) pg MCHC (31.0-37.0) g/dL RDW (11.5-15.5) % Plt Count (150-450) k/uL Neutrophils % % Lymphocytes % % Monocytes % % Eosinophils % % Basophils % % Neutrophils # (1.3-7.7) k/uL Lymphocytes # (1.0-4.8) k/uL Monocytes # (0-1.0) k/uL Eosinophils # (0-0.7) k/uL Basophils # (0-0.2) k/uL PT (9.0-12.0) sec INR (<1.1) APTT (22.0-30.0) sec D-Dimer (<0.60) mg/L FEU Sodium (137-145) mmol/L Potassium (3.5-5.1) mmol/L Chloride (98-107) mmol/L Carbon Dioxide (22-30) mmol/L Anion Gap mmol/L BUN (7-17) mg/dL Creatinine (0.52-1.04) mg/dL Est GFR (MDRD) Af Amer (>60 ml/min/1.73 sqM) Est GFR (MDRD) Non-Af (>60 ml/min/1.73 sqM) Glucose (74-99) mg/dL Calcium (8.4-10.2) mg/dL Total Bilirubin (0.2-1.3) mg/dL AST (14-36) U/L ALT (9-52) U/L Alkaline Phosphatase (38-126) U/L Troponin I (0.000-0.034) ng/mL Total Protein (6.3-8.2) g/dL Albumin (3.5-5.0) g/dL Amylase (30-110) U/L Lipase (23-300) U/L Urine Color Yellow Urine Appearance Clear (Clear) Urine pH 6.5 (5.0-8.0) Ur Specific [place] 1.019 (1.001-1.035) Urine Protein Negative (Negative) Urine Glucose (UA) 4+ H (Negative) Urine Ketones Trace H (Negative) Urine Blood Negative (Negative) Urine Nitrite Negative (Negative) Urine Bilirubin Negative (Negative) Urine Urobilinogen <2.0 (<2.0) mg/dL Ur Leukocyte Esterase Negative (Negative) Acetone, Qual (Negative) - EKG Data -: EKG Interpreted by Me 09/16/16 08:35 EKG obtained at 08 26 reveals sinus tachycardia, minimal voltage criteria for LVH, or maybe normal variant. Anterior infarct with age undetermined. Ventricular rate 120, VA interval 140, QRS duration 84, QT 332, QTC 469. No evidence of ST elevation or depression. Disposition Clinical Impression: Small bowel obstruction, Pneumonia, Lung metastasis, DKA (diabetic ketoacidoses ) Disposition: ADMITTED IP TO THIS [facility] Condition: Fair
[2016-09-16 08:43] LABS: Basophils % (A) 0 %; CH 28.3; CHCM 32.1; Eosinophils # (A) 0.1 k/uL (0-0.7); Eosinophils % (A) 1 %; HCT 42.8 % (34.0-46.0); HGB 13.4 gm/dL (11.4-16.0); Luc # (Auto) 0.09; Luc % (Auto) 1; Lymphocytes # (A) 1.6 k/uL (1.0-4.8); Lymphocytes % (A) 21 %; MCH 27.7 pg (25.0-35.0); MCHC 31.3 g/dL (31.0-37.0); MCV 88.6 fL (80.0-100.0); Mean Platelet Volume 7.1; Monocytes # (A) 0.2 k/uL (0-1.0); Monocytes % (A) 3 %; Neutrophils # (A) 5.6 k/uL (1.3-7.7); Neutrophils % (A) 73 %; RBC 4.83 m/uL (3.80-5.40); RDW 13.9 % (11.5-15.5); WBC 7.7 k/uL (3.8-10.6); WBC (Perox) 8.51
[2016-09-16 08:47] LABS: Prothrombin Time 10.4 sec (9.0-12.0)
--- NOTE | 2016-09-16 08:47 | XR ---
EXAMINATION TYPE: XR chest 2V DATE OF EXAM: 09/16/2016 8:41 AM HISTORY: SOB. REFERENCE: Previous study dated 06/09/2016. FINDINGS: There is a stable nodular density in the left lower lung. There is some patchy bilateral in filtrates. The heart is not enlarged. Pleural spaces are clear. IMPRESSION: 1. PATCHY BILATERAL INFILTRATES MAY REPRESENT PNEUMONIA. 2. EVIDENCE OF OLD GRANULOMATOUS DISEASE.
--- NOTE | 2016-09-16 08:48 | XR ---
EXAMINATION TYPE: XR KUB DATE OF EXAM ORDERED: 09/16/2016 8:41 AM HISTORY: abdominal pain. COMPARISON: Previous study dated 06/16/2016. FINDINGS: There are 2 mildly prominent loops of small bowel in the midabdomen on the right side of t he abdomen. There are numerous air-fluid levels. There is no evidence of free air. No unusual calcifi cations are seen. IMPRESSION: FINDINGS MOST CONSISTENT WITH EARLY ILEUS.
[2016-09-16 08:56] LABS: ALT 36 U/L (9-52); AST 22 U/L (14-36); Alkaline Phosphatase 168 U/L (38-126); Amylase 47 U/L (30-110); Anion Gap 14 mmol/L; Blood Urea Nitrogen 13 mg/dL (7-17); Calcium 10.3 mg/dL (8.4-10.2); Carbon Dioxide 28 mmol/L (22-30); Chloride 101 mmol/L (98-107); Glucose 365 mg/dL (74-99); Non-African American GFR(MDRD) >60 (>60 ml/min/1.73 sqM); Potassium 5.2 mmol/L (3.5-5.1); Sodium 143 mmol/L (137-145); Total Bilirubin 0.6 mg/dL (0.2-1.3); Total Protein 7.4 g/dL (6.3-8.2)
[2016-09-16 09:05] LABS: Partial Thromboplastin Time 18.6 sec (22.0-30.0)
[2016-09-16 09:30] LABS: Appearance,Urine Clear (Clear); Bilirubin,Urine Negative (Negative); Glucose,Urine (UA) 4+ (Negative); Ketones,Urine Trace (Negative); Leukocyte Esterase,Urine Negative (Negative); Nitrite,Urine Negative (Negative); PH, Urine 6.5 (5.0-8.0); Protein,Urine Negative (Negative); Specific Gravity,Urine 1.019 (1.001-1.035); UA Billing (MACRO vs. MICRO) CHEM; Urobilinogen,Urine <2.0 mg/dL (<2.0)
[2016-09-16] MEDS ORDERED: RX INFO: IV CONTRAST WAS GIVEN 1 EACH MISC MISCELLANE PRN (09:53)
--- NOTE | 2016-09-16 10:56 | CT ---
EXAMINATION TYPE: CT angio chest DATE OF EXAM: 09/16/2016 10:40 AM COMPARISON: CTA chest May 15, 2016 HISTORY: SOB, Difficulty breathing and Abdominal pain CT DLP: 1861 mGycm. Automated Exposure Control for Dose Reduction was Utilized. CONTRAST: CTA scan of the thorax is performed with IV Contrast, patient injected with 100 ml mL of Omnipaque 35 0, pulmonary embolism protocol. MIP Images are created on CT scanner and reviewed. FINDINGS: LUNGS: There are multifocal areas of nodular infiltrates bilaterally more prominent in the upper lobe s versus lower lobes. There are 2 cavitary lesions seen in the right midlung, largest measures 1.4 x 1.2 cm on axial image 47. No pleural effusion or pneumothorax is seen. There is stable calcified 11 m m nodule in the left lower lobe on axial image 76. MEDIASTINUM: There is satisfactory enhancement of the pulmonary artery and its branches, there is no CT evidence for pulmonary embolism. There are no greater than 1 cm noncalcified hilar or mediastinal lymph nodes. There are prominent but calcified subcarinal and left hilar lymph nodes . No pericardi al effusion is seen. Heart size is stable and mildly enlarged. OTHER: Please refer to same day CT abdomen and pelvis report for complete details of the upper abdome n. Osseous structures are demineralized. There is multilevel disc space narrowing with subchondral cy stic change and endplate sclerosis and spurring in the mid to lower thoracic spine redemonstrated. IMPRESSION: 1. No CT evidence for pulmonary embolism. 2. Multifocal bilateral nodular infiltrates with some cavitary lesions present most prominent in uppe r lungs, findings are strongly suggestive of septic emboli of infectious etiology. Clinical correlati on advised.
[2016-09-16] MEDS ORDERED: LEVOFLOXACIN 750MG-D5W PMX 750 MG in DEXTROSE/WATER 1 150ML.BAG IVPB STA (10:58)
--- NOTE | 2016-09-16 11:07 | CT ---
EXAMINATION TYPE: CT abdomen pelvis w con DATE OF EXAM: 09/16/2016 10:39 AM REFERENCE: Previous study dated 05/01/2016. HISTORY: Pain HISTORY: SOB, Difficulty breathing and Abdominal pain REFERENCE: NONE CT DLP: 1861 mGy Automated exposure control for dose reduction was used. TECHNIQUE: Helical acquisition through the abdomen and pelvis was obtained following the oral ingesti on of without Oral Contrast and following intravenous administration of 100 ml mL of Omnipaque 350. T he data was reformatted in axial, coronal and sagittal projections. FINDINGS: There is a calcified granuloma in the posterior basal segment of the left lower lobe. Ther e is dependent atelectasis within the lungs. There is no pleural or pericardial fluid. The heart is m ildly prominent. Within the abdomen, the gallbladder is contracted. The liver is normal in size. There is pneumobilia. The spleen appears normal. There is a stable 1.6 cm right adrenal mass. The left adrenal gland appears normal. There is been a partial nephrectomy on the left. There is a stable 6.6 x 14 mm calcification in the p osterior middle pole calyx of the left kidney. This may be the beginning of a staghorn calculus. This is unchanged from previous. Right kidney appears normal. The pancreas is unremarkable. There is atheromatous calcification of the abdominal aorta. There is no significant retroperitoneal, iliac or inguinal adenopathy. There is a fibroid uterus. The ovaries are not visualized with certainty. There is no significant diverticular change and there is no radiographic evidence of diverticulitis. There is dilatation of the small bowel without a definite transition point. There is some free fluid within the pelvis. There appears to been some previous gastric surgery. There is a ventral hernia containing fat only. There is a 2.5 cm neck. The fat within the hernia appe ars somewhat attenuated. No free air is seen. There is a bilateral lysis at L5 with a grade 1 bordering on grade 2 spondylolisthesis of L5 on S1. T here is degenerative disc disease and sclerotic endplate changes at L1 to in several of the dorsal ve rtebra. No bony destructive lesion is seen. IMPRESSION: 1. SMALL BOWEL OBSTRUCTION WITHOUT A DEFINITE TRANSITION POINT. 2. EVIDENCE OF OLD GRANULOMATOUS DISEASE. 3. PNEUMOBILIA. 4. STATUS POST PARTIAL LEFT NEPHRECTOMY. THERE IS A STABLE LEFT-SIDED RENAL CALCULUS WHICH MAY BE AN EARLY STAGHORN CALCULUS. 5. STABLE, 1.6 CM RIGHT ADRENAL MASS. 6. FIBROID UTERUS. 7. VENTRAL HERNIA CONTAINING FAT ONLY. THE FAT WITHIN THE HERNIA APPEARS SOMEWHAT INDURATED. 8. BILATERAL LYSIS AT L5 WITH A GRADE 1 BORDERING ON GRADE 2 SPONDYLOLISTHESIS OF L5 ON S1. 9. MODERATE DEGENERATIVE CHANGES WITHIN THE SPINE.
[2016-09-16] MEDS ORDERED: SODIUM CHLORIDE 0.9% 1,000 ML IV ONE (11:11)
[2016-09-16] MEDS ORDERED: INSULIN REGULAR 100 UNIT in SODIUM CHLORIDE 0.9% 100 ML IV ONE ×4 (11:14)
[2016-09-16] MEDS ORDERED: SODIUM CHLORIDE 0.9% 1,000 ML IV SCH (11:15)
[2016-09-16] MEDS ORDERED: NALOXONE 0.4 MG/ML 1 ML VIAL IV PRN (11:22)
[2016-09-16] MEDS ORDERED: PIPERACILLIN-TAZOBACTAM 3.375 GM in DEXTROSE/WATER 1 50ML.BAG IVPB STA (11:28)
[2016-09-16 12:59] LABS: Glucose,Whole Blood 324 mg/dL (75-99)
[2016-09-16] MEDS ORDERED: Potassium Replacement Protocol 1 EACH MISC MISCELLANE PRN (13:24)
[2016-09-16] MEDS ORDERED: Magnesium Replacement Protocol 1 EACH MISC MISCELLANE PRN (13:24)
[2016-09-16] MEDS ORDERED: D5-0.45% NACL WITH KCL 20MEQ/L 1,000 ML IV SCH (13:30)
[2016-09-16] MEDS: INSULIN REGULAR 100 UNIT in SODIUM CHLORIDE 0.9% 100 ML IV SCH ×3 (13:30→18:24)
[2016-09-16] MEDS: SODIUM CHLORIDE 0.9% 1,000 ML IV SCH ×3 (13:45→18:10)
[2016-09-16 13:57] LABS: Glucose,Whole Blood 268 mg/dL (75-99)
[2016-09-16 14:01] LABS: Hemoglobin A1C 14.4 % (4.2-6.1)
[2016-09-16] MEDS: ONDANSETRON 4 MG/2 ML VIAL IVP PRN ×2 (14:41→23:09)
[2016-09-16 14:44] LABS: Blood Urea Nitrogen 12 mg/dL (7-17); Non-African American GFR(MDRD) >60 (>60 ml/min/1.73 sqM); Phosphorous 4.1 mg/dL (2.5-4.5); Potassium 4.5 mmol/L (3.5-5.1)
[2016-09-16 15:00] LABS: Glucose,Whole Blood 200 mg/dL (75-99)
[2016-09-16] MEDS: HYDROmorphone 1 MG/ML 1 ML SYRINGE IV PRN ×3 (15:07→21:14)
[2016-09-16 15:53] LABS: Glucose,Whole Blood 138 mg/dL (75-99)
[2016-09-16 16:21] LABS: Glucose,Whole Blood 147 mg/dL (75-99)
[2016-09-16] MEDS: INSULIN LISPRO (humaLOG) 300 UNIT/3 ML VIAL SQ SCH (17:22)
[2016-09-16 18:07] LABS: Glucose,Whole Blood 226 mg/dL (75-99)
--- NOTE | 2016-09-16 18:15 | P.CNPUL ---
History of Present Illness Consult date: 09/16/16 Reason for consult: abnormal CXR/CT History of present illness: This is a 56-year-old female patient with a previous history of renal cell carcinoma status post partial nephrectomy approximately 10 years ago, along with previous history of cholecystectomy, presented to the burst department with a few days history of abdominal pain and distention. The patient was mario alberto yet she hasn't had any bowel movements over the past 24-48 hours. In addition, over the past 24 hours the patient had multiple episodes of emesis. Denied having any bright red blood per rectum. No melena. No hematochezia. The patient came into the burst department for that reason and as part of further investigation a CAT scan of the chest abdomen and pelvis was done. A CAT scan of the abdomen and pelvis showed evidence of small bowel obstruction without a definitive transition point. There was evidence of a granuloma in the left lower lobe. There is also evidence of partial left nephrectomy with a stable left sided renal calculus which may be an early staghorn calculus. There was evidence of a ventral hernia containing fat only. There was evidence of bilateral lysis at the level of L5 spine and moderate degenerative changes in the spine. The CAT scan of the chest however showed multifocal areas of moderate infiltrates bilaterally predominantly in the upper lobe and 2 of these lesions were essentially cavitating and the largest measuring 1.4 x 1.2 cm in size on the right. This raises the suspicion for metastatic emboli versus septic emboli versus metastatic cancer. Clinically, the patient denies having any respiratory difficulties. No cough or sputum production. No chest tightness. No wheezing. No hemoptysis. In addition, she denies having any fever. Most of any endocarditis or valvular heart disease. No history of any cardiac problems. The patient was treated in the past for a gram-negative urine checked infection with E. coli and she had a PICC line inserted that was subsequently removed after the completion of IV antibiotics which included IV Invanz treatment. This was essentially during a hospitalization back in April 2016 and this was done under the supervision of Dr. Mills. The echocardiogram from that time in April 2016 showed no significant abnormalities and the patient ejection fraction was around 55% with some segmental wall motion abnormalities especially in the basal and inferior wall of the myocardium. The valves were all essentially within normal limits. Currently, the patient has no leukocytosis, she is afebrile, she has no hypotension and she is on 2 L of oxygen nasal cannula and her pulse ox is 98% Review of Systems For review of system was done and the positive findings are almost above the history of present illness Past Medical History Past Medical History: Asthma, Cancer, Chest Pain / Angina, COPD, CVA/TIA, Diabetes Mellitus, GERD/Reflux, Hyperlipidemia, Hypertension, Myocardial Infarction ([place]), Syncope, Thyroid Disorder Additional Past Medical History / Comment(s): Left renal cell carcinoma status post partial nephrectomy, CVA 4, diabetes mellitus, COPD, hypothyroidism, chronic back pain, urine checked infection with sepsis secondary to ESBL producing E. coli in April 2016 requiring a PICC line insertion for IV antibiotics, coronary artery disease with previous [place], restless leg syndrome, peripheral neuropathy, hypertension, hypothyroidism, hyperlipidemia, GE reflux, depression Last Myocardial Infarction Date:: 2012 History of Any Multi-Drug Resistant Organisms: ESBL Date of last positivie culture/infection: 05/07/16 ESBL, 05/15/16 VRE MDRO Source:: URINE E.COLI, EC GALLINARUM Past Surgical History: Appendectomy, Section, Heart Catheterization Additional Past Surgical History / Comment(s): thyroidectomy(non functioning) heart cath 06-18-12 100% occluded LAD unable to stent, partial nephrectomy for a left kidney renal cell carcinoma, PICC line insertion (since removed), colonoscopy, bilateral cataract removal with lens implants, 2 C-Sections. Past Anesthesia/Blood Transfusion Reactions: No Reported Reaction Past Psychological History: Anxiety, Depression Additional Psychological History / Comment(s): TAKES EFFEXOR FOR DEPRESSION STATED SHE FEELS MAINTAINED ON THAT MEDICATION.DENIES ANY THOUGHTS OF HARMING SELF. Pt lives with her significant other and is independant. Smoking Status: Current every day smoker Past Alcohol Use History: None Reported Additional Past Alcohol Use History / Comment(s): STARTED SMOKING AT AGE 10.HAD WORKED UP TO 3 PPD BUT HAS CUT DOWN IN ATTEMPT TO QUIT NOW SMOKES 1 PPD Past Drug Use History: Marijuana Additional Drug Use History / Comment(s): OCC USES MARIJUANA-LASRT USED 3 WEEKS AGO. - Past Family History Father Family Medical History: Myocardial Infarction ([place]) Additional Family Medical History / Comment(s): from [place] at age 48 Mother Family Medical History: Cancer Additional Family Medical History / Comment(s): maeve breasts removed d/t cancer, hysterectomy d/t cancer Medications and Allergies Home Medications Medication Instructions Recorded Confirmed Type Insulin Glargine,Hum.rec.anlog 30 unit SQ W/SUPPER 03/29/14 09/16/16 History [Lantus Solostar] Clopidogrel [Plavix] 75 mg PO DAILY 04/28/15 09/16/16 History Insulin Glulisine [Apidra] 10 unit SQ AC-BID 04/28/15 09/16/16 History Levothyroxine Sodium [Synthroid] 200 mcg PO DAILY 04/28/15 09/16/16 History Omeprazole [PriLOSEC] 40 mg PO DAILY 04/28/15 09/16/16 History Venlafaxine HCl ER [Effexor XR] 150 mg PO DAILY 04/28/15 09/16/16 History cloNIDine HCL [Catapres] 0.1 mg PO HS 04/28/15 09/16/16 History Ergocalciferol [Vitamin D2 50,000 unit PO TU 10/11/15 09/16/16 History (DRISDOL)] Insulin Glargine,Hum.rec.anlog 20 unit SQ W/BRKFST 07/05/16 09/16/16 History [Lantus Solostar] Aspirin [Adult Low Dose Aspirin EC] 81 mg PO DAILY 09/04/16 09/16/16 History Atorvastatin [Lipitor] 40 mg PO HS 09/04/16 09/16/16 History Baclofen 10 mg PO DAILY 09/04/16 09/16/16 History Insulin Glargine,Hum.rec.anlog 10 unit SQ W/LUNCH 09/04/16 09/16/16 History [Lantus Solostar] Naproxen [Naprosyn] 500 mg PO BID 09/04/16 09/16/16 History Allergies Allergy/AdvReac Type Severity Reaction Status Date / Time bee pollen Allergy Unknown Verified 09/16/16 08:26 latex Allergy Rash/Hives Verified 09/16/16 08:26 Sulfa (Sulfonamide Allergy Rash/Hives Verified 09/16/16 08:26 Antibiotics) hydrocodone AdvReac Nausea Verified 09/16/16 08:26 morphine AdvReac Unknown Verified 09/16/16 08:26 prochlorperazine edisylate AdvReac Vomiting Verified 09/16/16 08:26 [From Compazine] prochlorperazine maleate AdvReac Vomiting Verified 09/16/16 08:26 [From Compazine] Physical Exam Vitals: Vital Signs Temp Pulse Pulse Resp BP BP Pulse Ox 09/16/16 15:42 97.1 F L 126 H 18 132/74 98 09/16/16 13:36 97 F L 102 H 18 99 09/16/16 13:17 98.2 F 104 H 20 117/74 99 Intake and Output 09/16/16 09/16/16 09/16/16 06:59 14:59 22:59 Intake Total 1003.074 13.784 Balance 1003.074 13.784 Intake: Amount of Fluid Infused ( 1000 ml) Intake, IV Titration 3.074 13.784 Amount Insulin Regular 100 unit 3.074 13.784 In Sodium Chloride 0.9% 100 ml @ 0.1 UNITS/KG/HR 5.95 mls/hr IV .[id number] [facility] Rx#:[id number] Head exam was generally normal. There was no scleral icterus or corneal arcus. Mucous membranes were moist.Neck was supple and without jugular venous distension, thyromegaly, or carotid bruits. Carotids were easily palpable bilaterally. There was no adenopathy.Lungs were clear to auscultation and percussion, and with normal diaphragmatic excursion. No wheezes or rales were noted. Cardiac exam revealed the PMI to be normally situated and sized. The rhythm was regular and no extrasystoles were noted during several minutes of auscultation. The first and second heart sounds were normal and physiologic splitting of the second heart sound was noted. There were no murmurs, rubs, clicks, or gallops. Abdomen is slightly distended. There is no direct tenderness. There is no rebound tenderness. There is no guarding. Bowel sounds are hypoactive at the present. No ascites.Examination of the extremities revealed easily palpable radial, femoral and pedal pulses. There was no cyanosis, clubbing or edema. Results - Laboratory Findings CBC and BMP: 09/16/16 08:00 09/16/16 14:04 PT/INR, D-dimer PT 10.4 sec (9.0-12.0) 09/16/16 08:00 INR 1.0 (<1.1) 09/16/16 08:00 D-Dimer 13.57 mg/L FEU (<0.60) H 09/16/16 08:00 Abnormal lab findings: Abnormal Labs 09/16/16 09/16/16 09/16/16 12:49 13:56 14:58 POC Glucose (mg/dL) 324 H 268 H 200 H 09/16/16 09/16/16 15:52 16:20 POC Glucose (mg/dL) 138 H 147 H - Diagnostic Findings Chest x-ray: image reviewed CT scan - chest: image reviewed Assessment and Plan Plan: Assessment 1 bilateral pulmonary lesions with 2 a cavitating disease involving the right lung, largest being 1.4 cm in size. Rule out metastatic poorly lesions with early cavitation, rule out septic emboli. Tuberculosis felt to be less likely. Other necrotizing pneumonia are felt to be less likely specially the patient is not acting septic at all. Vasculitis is also less likely taken in account the patient's clinical circumstances. Note that a CAT scan of the chest that was done back in April 2016 showed no abnormalities in the upper lobes. 2 renal cell carcinoma status post partial nephrectomy on the left 3 CVA 4 with some residual left-sided weakness 4 COPD 5 coronary artery disease 6 history of recent urine checked infection force the patient was hospitalized back in April 2016 and the patient was found to have an ESBL producing E. coli requiring inpatient and then outpatient IV antibiotics utilizing a PICC line and IV Invanz 7 previous myocardial infarction 8 peripheral neuropathy 9 hypertension 10 restless leg syndrome 11 COPD 12 chronic back pain. 13 hypothyroidism 14 smoker Plan Sent 2 sets of blood cultures. Cover the patient with empiric antibiotic coverage utilizing IV Zosyn. Obtain echocardiogram to assess the patient's LV function and rule out any right-sided endocarditis. Check MAYA, p-ANCA and c- ANCA along with a sed rate as part of vasculitis workup. Cardiology consultation. ID consultation. Bronchoscopy if the above-mentioned workup comes back negative. Time with Patient: Greater than 30
--- NOTE | 2016-09-16 19:21 | P.PN ---
Progress Note - Text Patient seen and evaluated with history of small bowel obstruction. She reports at that time requiring surgery for relief. Recommend NG tube placement with IVF hydration. Please see full dictated consult.
[2016-09-16 19:35] LABS: Glucose,Whole Blood 218 mg/dL (75-99)
--- NOTE | 2016-09-16 20:05 | P.CONS ---
History of Present Illness - Reason for Consult Consult date: 09/16/16 - Chief Complaint Nausea and emesis - History of Present Illness 56-year-old female who has a history of multiple medical troubles that includes diabetes mellitus type 2 poorly controlled over time, the history of ESBL E. coli infection with sepsis, renal cell carcinoma with left partial nephrectomy. She presents to the emergency center with approximately a day of increasing abdominal pain in the periumbilical area associated with multiple bouts of nausea and emesis. She was unable to take in food or fluids. She was at her blood sugars were becoming elevated in counseling she presented to the emergency center she had markedly elevated blood sugar, she was acetone positive , A presentation evaluations performed including imaging studies showed evidence of a small bowel obstruction. She continues been admitted and receiving fluids. Antibiotic therapy was started with concerns of her prior urine infection and abdominal infection. With concerns of sepsis the infectious diseases consultation was requested. This time the patient feels quite poorly. She has ongoing periumbilical abdominal pain that she relates as a 7 out of 10. She has relate the nausea seems to be slightly better. She did have emesis a while ago. She's been evaluated by general surgery and NG tube will be placed to see if this can improve her symptoms. Of note she's had computed tomography scan that shows evidence of new abnormalities into her chest. Concerns to cavitary pneumonia, metastatic disease, septic pulmonary emboli. Review of Systems 56-year-old woman feels very poorly with ongoing abdominal pain, nausea and some weakness HEENT:Denies headache or acute visual change. Denies sinus or mouth discomforts. Denies neck stiffness or pain. Denies significant oral cavity pain. Denies difficulty on swallowing. Lungs: Denies significant shortness of breath, cough, sputum production, or hemoptysis. Cardiovascular: Denies significant shortness of breath, chest pain, chest wall pain, orthopnea, dyspnea on exertion, syncope Gastrointestinal: As per the HPI Musculoskeletal: denies significant myalgias or arthralgias. No new joint swelling. Denies new back pain. Skin: Denies new rash or lesions. No new ulcers or wounds are related.. Neuro: Denies headache or visual change. Denies any new onset weakness or difficulty with ambulation. Denies falls or seizures. Psychiatric: Chronic anxiety Endocrine: Has fatigue and has had lost weight with the acute illness but not ongoing weight loss Past Medical History Past Medical History: Asthma, Cancer, Chest Pain / Angina, COPD, CVA/TIA, Diabetes Mellitus, GERD/Reflux, Hyperlipidemia, Hypertension, Myocardial Infarction ([place]), Syncope, Thyroid Disorder Additional Past Medical History / Comment(s): Left renal cell carcinoma status post partial nephrectomy, CVA 4, diabetes mellitus, COPD, hypothyroidism, chronic back pain, urine checked infection with sepsis secondary to ESBL producing E. coli in April 2016 requiring a PICC line insertion for IV antibiotics, coronary artery disease with previous [place], restless leg syndrome, peripheral neuropathy, hypertension, hypothyroidism, hyperlipidemia, GE reflux, depression Last Myocardial Infarction Date:: 2012 History of Any Multi-Drug Resistant Organisms: ESBL Year Discovered:: 05/07/16 ESBL, 05/15/16 VRE MDRO Source:: URINE E.COLI, EC GALLINARUM Past Surgical History: Appendectomy, Section, Heart Catheterization Additional Past Surgical History / Comment(s): thyroidectomy(non functioning) heart cath 06-18-12 100% occluded LAD unable to stent, partial nephrectomy for a left kidney renal cell carcinoma, PICC line insertion (since removed), colonoscopy, bilateral cataract removal with lens implants, 2 C-Sections. Past Anesthesia/Blood Transfusion Reactions: No Reported Reaction Past Psychological History: Anxiety, Depression Additional Psychological History / Comment(s): TAKES EFFEXOR FOR DEPRESSION STATED SHE FEELS MAINTAINED ON THAT MEDICATION.DENIES ANY THOUGHTS OF HARMING SELF. Pt lives with her significant other in [facility] and is independant. Smoking Status: Current every day smoker Past Alcohol Use History: None Reported Additional Past Alcohol Use History / Comment(s): STARTED SMOKING AT AGE 10.HAD WORKED UP TO 3 PPD BUT HAS CUT DOWN IN ATTEMPT TO QUIT NOW SMOKES 1 PPD Past Drug Use History: Marijuana Additional Drug Use History / Comment(s): [facility] USES MARIJUANA-LASRT USED 3 WEEKS AGO. - Past Family History Father Family Medical History: Myocardial Infarction ([place]) Additional Family Medical History / Comment(s): from [place] age 48 Mother Family Medical History: Cancer Additional Family Medical History / Comment(s): maeve breasts removed d/t cancer, hysterectomy d/t cancer Medications and Allergies Home Medications and Allergies Comment(s): Current Medications Clonidine (Catapres) 0.1 mg PO HS [facility] Heparin Sodium (Porcine) (Heparin) 5,000 unit SQ Q12HR [facility] Hydromorphone HCl (Dilaudid) 0.5 mg IV Q3HR PRN PRN Reason: Severe Pain Last Admin: 09/16/16 18:11 Dose: 0.5 mg Sodium Chloride (Saline 0.9%) 1,000 mls @ 75 mls/hr IV .[id number] [facility] Last Admin: 09/16/16 18:10 Dose: 75 mls/hr Insulin Human Regular 100 unit (/ Sodium Chloride) 101 mls @ 0 mls/hr IV .Q0M [facility]; Titrate PRN Reason: Protocol Last Admin: 09/16/16 18:24 Dose: 4 units/hr, 4.04 mls/hr Insulin Human Lispro (Humalog) 8 unit SQ AC-TID [facility] Last Admin: 09/16/16 17:22 Dose: Not Given Levothyroxine Sodium (Synthroid) 200 mcg PO DAILY@0630 [facility] Miscellaneous Information (Rx Info: Iv Contrast Was Given) 1 each MISCELLANE DAILY PRN PRN Reason: Per Protocol Stop: 09/18/16 09:53 Last Admin: 09/16/16 09:54 Dose: 1 each Miscellaneous Information (Magnesium Per Protocol) 1 each MISCELLANE DAILY PRN ; Protocol PRN Reason: Per Protocol Miscellaneous Information (Potassium Per Protocol) 1 each MISCELLANE DAILY PRN PRN Reason: Per Protocol Naloxone HCl (Narcan) 0.2 mg IV Q2M PRN PRN Reason: Opioid Reversal Ondansetron HCl (Zofran) 4 mg IVP Q8HR PRN PRN Reason: Nausea And Vomiting Last Admin: 09/16/16 14:41 Dose: 4 mg Venlafaxine HCl (Effexor Xr) 150 mg PO DAILY [facility] Home Medications Medication Instructions Recorded Confirmed Type Insulin Glargine,Hum.rec.anlog 30 unit SQ W/SUPPER 03/29/14 09/16/16 History [Lantus Solostar] Clopidogrel [Plavix] 75 mg PO DAILY 04/28/15 09/16/16 History Insulin Glulisine [Apidra] 10 unit SQ AC-BID 04/28/15 09/16/16 History Levothyroxine Sodium [Synthroid] 200 mcg PO DAILY 04/28/15 09/16/16 History Omeprazole [PriLOSEC] 40 mg PO DAILY 04/28/15 09/16/16 History Venlafaxine HCl ER [Effexor XR] 150 mg PO DAILY 04/28/15 09/16/16 History cloNIDine HCL [Catapres] 0.1 mg PO HS 04/28/15 09/16/16 History Ergocalciferol [Vitamin D2 50,000 unit PO TU 10/11/15 09/16/16 History (DRISDOL)] Insulin Glargine,Hum.rec.anlog 20 unit SQ W/BRKFST 07/05/16 09/16/16 History [Lantus Solostar] Aspirin [Adult Low Dose Aspirin EC] 81 mg PO DAILY 09/04/16 09/16/16 History Atorvastatin [Lipitor] 40 mg PO HS 09/04/16 09/16/16 History Baclofen 10 mg PO DAILY 09/04/16 09/16/16 History Insulin Glargine,Hum.rec.anlog 10 unit SQ W/LUNCH 09/04/16 09/16/16 History [Lantus Solostar] Naproxen [Naprosyn] 500 mg PO BID 09/04/16 09/16/16 History Allergies Allergy/AdvReac Type Severity Reaction Status Date / Time bee pollen Allergy Unknown Verified 09/16/16 08:26 latex Allergy Rash/Hives Verified 09/16/16 08:26 Sulfa (Sulfonamide Allergy Rash/Hives Verified 09/16/16 08:26 Antibiotics) hydrocodone AdvReac Nausea Verified 09/16/16 08:26 morphine AdvReac Unknown Verified 09/16/16 08:26 prochlorperazine edisylate AdvReac Vomiting Verified 09/16/16 08:26 [From Compazine] prochlorperazine maleate AdvReac Vomiting Verified 09/16/16 08:26 [From Compazine] Physical Exam Vitals: Vital Signs Temp Pulse Pulse Resp BP BP Pulse Ox 09/16/16 15:42 97.1 F L 126 H 18 132/74 98 09/16/16 13:36 97 F L 102 H 18 99 09/16/16 13:17 98.2 F 104 H 20 117/74 99 Intake and Output 09/16/16 09/16/16 09/16/16 06:59 14:59 22:59 Intake Total 1003.074 13.784 Balance 1003.074 13.784 Intake: Amount of Fluid Infused ( 1000 ml) Intake, IV Titration 3.074 13.784 Amount Insulin Regular 100 unit 3. 13.784 In Sodium Chloride 0.9% 100 ml @ 0.1 UNITS/KG/HR 5.95 mls/hr IV .[id number] [facility] Rx#:[id number] Other: Weight 63.3 kg Patient Weight 09/17/16 06:59 Weight 63.3 kg HEENT: Anicteric conjunctiva are pink and moist nasal mucosa grossly intact without significant lesions, there is no thrush. Fully edentulous Neck: The neck is supple without significant lymphadenopathy or thyromegaly. Lungs: Symmetrical air entry with few expiratory wheezes no chris bronchial sounds. Heart: Regular rate and rhythm with an audible S1-S2, no S3 no S4. There is no significant murmur click or rub, PMI was nondisplaced. Abdomen: Minimally distended. Few high pitched bowel sounds, distinctly tender over the periumbilical area, and then the was not rigid and there was no rebound Extremities: The upper extremities have excellent pulses they are symmetric, no significant petechiae or telangiectasia. No splinter hemorrhages were noted. The lower extremities are free from significant edema. The peripheral pulses were 2+ and symmetric. Neuro: Awake alert oriented to person place and time. There are no acute new gross focal sensory motor deficits. Results CBC & Chem 7: 09/16/16 08:00 09/16/16 14:04 Labs: Abnormal Lab Results - Last 24 Hours (Table) 09/16/16 09/16/16 09/16/16 Range/Units 12:49 13:56 14:58 POC Glucose (mg/dL) 324 H 268 H 200 H (75-99) mg/dL 09/16/16 09/16/16 09/16/16 Range/Units 15:52 16:20 18:06 POC Glucose (mg/dL) 138 H 147 H 226 H (75-99) mg/dL 09/16/16 Range/Units 19:34 POC Glucose (mg/dL) 218 H (75-99) mg/dL Laboratory Results WBC 7.7 k/uL (3.8-10.6) 09/16/16 08:00 RBC 4.83 m/uL (3.80-5.40) 09/16/16 08:00 Hgb 13.4 gm/dL (11.4-16.0) 09/16/16 08:00 Hct 42.8 % (34.0-46.0) 09/16/16 08:00 MCV 88.6 fL (80.0-100.0) 09/16/16 08:00 MCH 27.7 pg (25.0-35.0) 09/16/16 08:00 MCHC 31.3 g/dL (31.0-37.0) 09/16/16 08:00 RDW 13.9 % (11.5-15.5) 09/16/16 08:00 Plt Count 266 k/uL (150-450) 09/16/16 08:00 Neutrophils % 73 % 09/16/16 08:00 Lymphocytes % 21 % 09/16/16 08:00 Monocytes % 3 % 09/16/16 08:00 Eosinophils % 1 % 09/16/16 08:00 Basophils % 0 % 09/16/16 08:00 Neutrophils # 5.6 k/uL (1.3-7.7) 09/16/16 08:00 Lymphocytes # 1.6 k/uL (1.0-4.8) 09/16/16 08:00 Monocytes # 0.2 k/uL (0-1.0) 09/16/16 08:00 Eosinophils # 0.1 k/uL (0-0.7) 09/16/16 08:00 Basophils # 0.0 k/uL (0-0.2) 09/16/16 08:00 PT 10.4 sec (9.0-12.0) 09/16/16 08:00 INR 1.0 (<1.1) 09/16/16 08:00 APTT 18.6 sec (22.0-30.0) L 09/16/16 08:00 D-Dimer 13.57 mg/L FEU (<0.60) H 09/16/16 08:00 Sodium 142 mmol/L (137-145) 09/16/16 14:04 Potassium 4.5 mmol/L (3.5-5.1) 09/16/16 14:04 Chloride 106 mmol/L (98-107) 09/16/16 14:04 Carbon Dioxide 25 mmol/L (22-30) 09/16/16 14:04 Anion Gap 11 mmol/L 09/16/16 14:04 BUN 12 mg/dL (7-17) 09/16/16 14:04 Creatinine 0.62 mg/dL (0.52-1.04) 09/16/16 14:04 Est GFR (MDRD) Af Amer >60 (>60 ml/min/1.73 sqM) 09/16/16 14:04 Est GFR (MDRD) Non-Af >60 (>60 ml/min/1.73 sqM) 09/16/16 14:04 Glucose 365 mg/dL (74-99) H 09/16/16 08:00 POC Glucose (mg/dL) 218 mg/dL (75-99) H 09/16/16 19:34 POC Glu [employer] Worker Bartolo Chamberlain 09/16/16 19:[address] Glu mg/dL 367 mg/dL 09/16/16 08:51 Hemoglobin A1c 14.4 % (4.2-6.1) H 09/16/16 08:51 Plasma Lactic Acid Ab 1.1 mmol/L (0.7-2.0) 09/16/16 11:09 Calcium 10.3 mg/dL (8.4-10.2) H 09/16/16 08:00 Phosphorus 4.1 mg/dL (2.5-4.5) 09/16/16 14:04 Total Bilirubin 0.6 mg/dL (0.2-1.3) 09/16/16 08:00 AST 22 U/L (14-36) 09/16/16 08:00 ALT 36 U/L (9-52) 09/16/16 08:00 Alkaline Phosphatase 168 U/L (38-126) H 09/16/16 08:00 Troponin I <0.012 ng/mL (0.000-0.034) 09/16/16 08:00 Total Protein 7.4 g/dL (6.3-8.2) 09/16/16 08:00 Albumin 4.3 g/dL (3.5-5.0) 09/16/16 08:00 Amylase 47 U/L (30-110) 09/16/16 08:00 Lipase 63 U/L (23-300) 09/16/16 08:00 Urine Color Yellow 09/16/16 09:12 Urine Appearance Clear (Clear) 09/16/16 09:12 Urine pH 6.5 (5.0-8.0) 09/16/16 09:12 Ur Specific Julian 1.019 (1.001-1.035) 09/16/16 09:12 Urine Protein Negative (Negative) 09/16/16 09:12 Urine Glucose (UA) 4+ (Negative) H 09/16/16 09:12 Urine Ketones Trace (Negative) H 09/16/16 09:12 Urine Blood Negative (Negative) 09/16/16 09:12 Urine Nitrite Negative (Negative) 09/16/16 09:12 Urine Bilirubin Negative (Negative) 09/16/16 09:12 Urine Urobilinogen <2.0 mg/dL (<2.0) 09/16/16 09:12 Ur Leukocyte Esterase Negative (Negative) 09/16/16 09:12 Acetone, Qual Positive (Negative) 09/16/16 08:00 Rheumatoid Factor <9 IU/mL (<12) 09/16/16 08:00 History of ESBL E. coli Assessment and Plan (1) Small bowel obstruction Narrative/Plan: 56-year-old woman presents to emergency center with significant abdominal pain who was found to have evidence of a small bowel obstruction has been seen by surgery. Plans for NG tube placement and monitoring. Pain control appears to be adequate at this time. She also had what appears to be diabetic ketoacidosis his admission there is no much improved and is on a reducing insulin drip. Also receiving fluids. Does have a history of ESBL E. coli urinary tract infection. Of note because of her symptoms on admission ,imaging was performed showing the difficulty of the small bowel obstruction, however imaging of the chest showed evidence of 2 cavitary lung lesions with the largest being 1.4 x 1.2 cm in the right midlung. Concern from the radiologist would be to underlying septic pulmonary emboli versus metastasis with her history of renal cell carcinoma. At this time workup for endocarditis will be performed with multiple blood cultures and echocardiogram have been ordered. Pulmonology will be looking for possible vasculitis as etiology of the pulmonary process. She does not appear to have a urinary tract infection at this time. After blood cultures have been drawn antibiotic therapy with Zosyn has been requested but workup is in process. Status: Acute (2) DKA (diabetic ketoacidoses) Status: Acute (3) History of renal cell carcinoma Status: Acute (4) Cavitary lesion of lung Status: Acute
--- NOTE | 2016-09-16 20:34 | HP ---
DATE OF ADMISSION: 09/16/2016 CHIEF COMPLAINT: Abdominal pain as well as shortness of breath. HISTORY OF PRESENT ILLNESS: This 56-year-old woman with a past medical history of asthma, COPD, history of chest pain, CVA, TIA, diabetes mellitus, type 2, GERD, hypertension, hyperlipidemia, history of myocardial infarction, history of hypothyroidism, history of left kidney cancer with partial nephrectomy at [facility] about 10 years ago, also had gallbladder surgery at [facility]. The patient is complaining of abdominal pain which is diffusely situated, mostly in the upper abdomen with multiple episodes of vomiting since last night. The pain was crampy. There was no radiation. There was no diarrhea. Patient was rather constipated and the patient came to [facility], admitted for further evaluation and treatment. The patient also did not take her insulin for diabetes, and her blood sugar was found to be high. The ketones were positive but anion gap was normal as well as CO2 normal also. The D-dimer was found to be 13.57. The patient had multiple evaluations, including chest CTA as well as abdomen and pelvis CT. The abdomen and pelvis CT showed small bowel obstruction without definite transition point; evidence of old granulomatous disease; pneumobilia; as well as partial left nephrectomy, stable, and right adrenal mass which is stable, ventral hernia, bilateral lysis at the L5 with a grade 1 spondylolisthesis and moderate degenerative changes in the spine also. The CTA of the chest showed no CT evidence of pulmonary embolism; multifocal bilateral nodule infiltrate with some cavitary lesions present, most prominent in the upper lungs. Findings are suggestive of septic emboli of infectious etiology. Clinical correlation suggested. The patient is admitted for further evaluation and treatment. There is no history of any fever, rigor or chills at this time. PAST MEDICAL HISTORY: 1. History of asthma. 2. COPD. 3. CVA, TIA. 4. Diabetes mellitus, type 2. 5. GERD. 6. Hypertension. 7. Hyperlipidemia. 8. History of myocardial infarction. 9. Syncope. 10. Hypothyroidism. 11. History of cardiac catheterization. 12. ESBL. 13. Anxiety. 14. Depression. HOME MEDICATIONS: 1. Clonidine. 2. Catapres 0.1 p.o. at bedtime. 3. Effexor XR 150 mg daily. 4. Prilosec 40 mg daily. 5. Naprosyn 500 mg b.i.d. 6. Synthroid 200 mcg p.o. daily. 7. Apidra 10 units before meals b.i.d. 8. Lantus 10 units with lunch and 20 units with breakfast and 30 units with supper. 9. Drisdol 50,000 units Friday. 10. Plavix 75 mg p.o. daily. 11. Baclofen 10 mg daily. 12. Lipitor 40 mg at bedtime. 13. Aspirin 81 mg p.o. daily. ALLERGIES: 1. BEE POLLEN. 2. LATEX. 3. SULFA. 4. HYDROCODONE. 5. MORPHINE. 6. PROCHLORPERAZINE. FAMILY HISTORY: History of myocardial infarction in the family. SOCIAL HISTORY: History of smoking; cut down the smoking. Occasional alcohol intake. No history of substance abuse. REVIEW OF SYSTEMS: ENT: No diminished hearing. No diminished vision. CARDIOVASCULAR SYSTEM: As mentioned earlier. RESPIRATORY SYSTEM: As mentioned earlier. GI: As mentioned earlier. : As mentioned earlier. NERVOUS SYSTEM: No numbness or weakness. ALLERGY/IMMUNOLOGY: No asthma or hayfever. MUSCULOSKELETAL: As mentioned earlier. HEMATOLOGY/ONCOLOGY: As mentioned earlier. ENDOCRINE: As mentioned earlier. CONSTITUTIONAL: As mentioned earlier. DERMATOLOGY: Negative. RHEUMATOLOGY: Negative. PSYCHIATRY: As mentioned earlier. PHYSICAL EXAMINATION: Patient is alert and oriented x3. Pulse is 126, blood pressure 132/74, respiration 18, temperature 97.1, pulse ox 98% on 2 L. HEENT: Conjunctivae normal. Oral mucosa moist. NECK: No jugular venous distention. No carotid bruit. No lymph node enlargement. CARDIOVASCULAR SYSTEM: S1 normal. S2 normal. No S3. No S4. RESPIRATORY SYSTEM: Breath sounds diminished at the bases. A few scattered rhonchi and crackles. ABDOMEN: Soft. Mild diffuse discomfort on palpation. No guarding. No rigidity. No mass palpable. LEGS: No edema. No swelling. NERVOUS SYSTEM: Higher functions as mentioned earlier. Moves all 4 limbs. No focal motor or sensory deficit. LYMPHATICS: No lymph node palpable in neck, axillae or groin. SKIN: No ulcer, rash, bleeding. LABS: CBC within normal limits. D-dimer is 13.57. Glucose 138. Hemoglobin A1C is 14.4. Calcium is 10.3. Serum acetone is positive. Urine ketones: only trace. ASSESSMENT: 1. Small bowel obstruction or paralytic ileus. 2. Sepsis of undetermined etiology with possible septic emboli with cavitary lesions in both lungs. 3. Uncontrolled diabetes mellitus, type 2, without any evidence of diabetic ketoacidosis. 4. Possible starvation ketoacidosis from vomiting. 5. Increased D-dimer without any evidence of pulmonary embolism. 6. History of asthma, chronic obstructive pulmonary disease. 7. History of cerebrovascular accident, transient ischemic attack. 8. Diabetes mellitus, type 2. 9. Gastroesophageal reflux disease. 10. Hypertension. 11. Hyperlipidemia. 12. History of myocardial infarction. 13. History of syncope. 14. Hypothyroidism. 15. History of left kidney cancer with partial nephrectomy. 16. Peripheral neuropathy secondary to diabetes mellitus, type 2. 17. Hemoglobin A1C of 14 with uncontrolled diabetes mellitus, type 2. 18. Chronic back pain and degenerative joint disease. 19. History of vertigo. 20. History of sepsis. 21. History of ESBL. 22. History of anxiety, depression. 23. History of continued ongoing nicotine dependence. 24. History of tetrahydrocannabinol. 25. FULL CODE. RECOMMENDATIONS AND DISCUSSION: In this 56-year-old woman who presented with multiple complex medical issues, we will monitor the patient closely, continue the current medications, continue with symptomatic treatment. Otherwise, I recommend broad-spectrum IV antibiotics. Obtain a surgical evaluation. I would also recommend infectious disease evaluation as well as pulmonary evaluation. Overall prognosis guarded because of multiple complex medical issues. The CT results are reviewed personally by me and chest x-ray was also done which showed increased bronchial vascularity. Otherwise, prognosis guarded because of multiple complex medical issues. Further recommendations to follow. A copy of this dictation is being forwarded to Dr. Schroeder, who is the primary physician. Discussed with the patient, who understands and agrees. Discussed with staff. See orders for further details. Will keep the patient currently n.p.o. except for medications until further recommendations or further notice.
[2016-09-16] MEDS: cloNIDine HCL 0.1 MG TAB PO SCH (21:08)
[2016-09-16] MEDS: HEPARIN SODIUM,PORCINE 5,000 UNIT/ML 1 ML VIAL SQ SCH (21:18)
[2016-09-16 22:00] LABS: Glucose,Whole Blood 119 mg/dL (75-99)
[2016-09-16 22:59] LABS: Glucose,Whole Blood 156 mg/dL (75-99)
[2016-09-16] MEDS: PIPERACILLIN-TAZOBACTAM 3.375 GM in DEXTROSE/WATER 1 50ML.BAG IVPB SCH (23:08)
[2016-09-17] MEDS: HYDROmorphone 1 MG/ML 1 ML SYRINGE IV PRN ×6 (00:44→22:55)
[2016-09-17 01:22] LABS: Glucose,Whole Blood 174 mg/dL (75-99)
[2016-09-17 03:07] LABS: Glucose,Whole Blood 172 mg/dL (75-99)
[2016-09-17 05:05] LABS: Glucose,Whole Blood 161 mg/dL (75-99)
--- NOTE | 2016-09-17 07:12 | P.PN ---
Progress Note - Text Please see full dictated consult. Patient with history of bowel obstruction. Recommend nasogastric tube decompression. We'll follow.
[2016-09-17 07:13] LABS: Glucose,Whole Blood 214 mg/dL (75-99)
--- NOTE | 2016-09-17 08:35 | XR ---
EXAMINATION TYPE: XR abdomen 2V DATE OF EXAM: 09/17/2016 6:42 AM COMPARISON: 09/16/2016 HISTORY: Bowel obstruction TECHNIQUE: One view abdominal series FINDINGS: The osseous structures are intact. The bowel gas pattern is nonspecific. The persistent dilated smal l bowel loops within the upper and mid abdomen. Extensive retained fecal debris throughout the colon. Calcified granuloma left lower lobe. Arthropathy of the shoulders. Numerous air-fluid levels are seen. Linear lucency in the right upper q uadrant could potentially be biliary correlate clinically. IMPRESSION: 1. Nonspecific abdomen. Findings again suspicious for small bowel obstruction. 2. Findings suggest pneumobilia.
[2016-09-17 09:08] LABS: Glucose,Whole Blood 180 mg/dL (75-99)
[2016-09-17] MEDS: SODIUM CHLORIDE 0.9% 1,000 ML IV SCH ×2 (09:10→15:36)
[2016-09-17] MEDS: VENLAFAXINE HCL ER 150 MG CAP PO SCH (09:22)
[2016-09-17] MEDS: INSULIN LISPRO (humaLOG) 300 UNIT/3 ML VIAL SQ SCH ×3 (09:22→17:21)
[2016-09-17] MEDS: LEVOTHYROXINE 100 MCG TAB PO SCH (09:22)
[2016-09-17] MEDS: PIPERACILLIN-TAZOBACTAM 3.375 GM in DEXTROSE/WATER 1 50ML.BAG IVPB SCH ×3 (09:30→22:37)
[2016-09-17] MEDS: HEPARIN SODIUM,PORCINE 5,000 UNIT/ML 1 ML VIAL SQ SCH ×2 (09:30→19:57)
[2016-09-17 09:55] LABS: Basophils % (A) 0 %; CH 28.3; CHCM 32.7; Eosinophils # (A) 0.1 k/uL (0-0.7); Eosinophils % (A) 1 %; HCT 38.5 % (34.0-46.0); HDW 2.78; HGB 12.9 gm/dL (11.4-16.0); Luc # (Auto) 0.08; Luc % (Auto) 1; Lymphocytes # (A) 1.2 k/uL (1.0-4.8); Lymphocytes % (A) 19 %; MCH 29.2 pg (25.0-35.0); MCHC 33.5 g/dL (31.0-37.0); MCV 87.2 fL (80.0-100.0); Monocytes # (A) 0.2 k/uL (0-1.0); Monocytes % (A) 3 %; Neutrophils # (A) 4.8 k/uL (1.3-7.7); Neutrophils % (A) 76 %; RBC 4.42 m/uL (3.80-5.40); WBC 6.3 k/uL (3.8-10.6); WBC (Perox) 6.51
[2016-09-17] MEDS: ONDANSETRON 4 MG/2 ML VIAL IVP PRN ×2 (10:30→18:45)
[2016-09-17 10:44] LABS: ALT 24 U/L (9-52); AST 18 U/L (14-36); Alkaline Phosphatase 118 U/L (38-126); Anion Gap 12 mmol/L; Blood Urea Nitrogen 9 mg/dL (7-17); Calcium 9.8 mg/dL (8.4-10.2); Carbon Dioxide 26 mmol/L (22-30); Chloride 105 mmol/L (98-107); Glucose 180 mg/dL (74-99); Non-African American GFR(MDRD) >60 (>60 ml/min/1.73 sqM); Potassium 4.5 mmol/L (3.5-5.1); Sodium 143 mmol/L (137-145); Total Bilirubin 0.5 mg/dL (0.2-1.3); Total Protein 6.3 g/dL (6.3-8.2)
--- NOTE | 2016-09-17 11:27 | ECHOF ---
Referral Reason:rule out vegetation MEASUREMENTS -------- HEIGHT: 160.0 cm WEIGHT: 59.0 kg BP: 117/74 RVIDd: 2.9 cm (< 3.3) IVSd: 1.2 cm (0.6 - 1.1) LVIDd: 4.4 cm (3.9 - 5.3) LVPWd: 1.3 cm (0.6 - 1.1) IVSs: 1.8 cm LVIDs: 3.5 cm LVPWs: 1.5 cm LA Diam: 3.2 cm (2.7 - 3.8) LAESV Index (A-L): 29.85 ml/m Ao Diam: 3.2 cm (2.0 - 3.7) AV Cusp: 2.2 cm (1.5 - 2.6) LA Diam: 2.7 cm (2.7 - 3.8) MV EXCURSION: 18.395 mm (> 18.000) MV EF SLOPE: 155 mm/s (70 - 150) EPSS: 0.6 cm MV E Manoj: 0.98 m/s MV DecT: 103 ms MV A Manoj: 0.54 m/s MV E/A Ratio: 1.82 RAP: 5.00 mmHg RVSP: 28.51 mmHg FINDINGS -------- Resting tachycardia (HR>100bpm). This was a technically good study. There is mild concentric left ventricular hypertrophy. Overall left ventricular systolic function is low-normal with, an EF between 50 - 55 %. The right ventricle is normal in size. LA is midly dilated 29-33ml/m2. The right atrium is normal in size. Aortic valve is trileaflet and is mildly thickened. The mitral valve leaflets are mildly thickened. Mild mitral annular calcification present. There is trace mitral regurgitation. Possible MV loose chordea Mild tricuspid regurgitation present. The right ventricular systolic pressure, as measured by Doppler, is 28.51mmHg. Pulmonic valve appears structurally normal. The aortic root size is normal. Normal inferior vena cava with normal inspiratory collapse consistent with estimated right atrial pressure of 5 mmHg. There is no pericardial effusion. CONCLUSIONS -------- 1. Resting tachycardia (HR>100bpm). 2. There is trace mitral regurgitation. 3. Possible MV loose chordea 4. Mild tricuspid regurgitation present. 5. The right ventricular systolic pressure, as measured by Doppler, is 28.51mmHg. 6. Pulmonic valve appears structurally normal. 7. The aortic root size is normal. 8. Normal inferior vena cava with normal inspiratory collapse consistent with estimated right atrial pressure of 5 mmHg. 9. There is no pericardial effusion. 10. There is mild concentric left ventricular hypertrophy. 11. Overall left ventricular systolic function is low-normal with, an EF between 50 - 55 %. 12. The right ventricle is normal in size. 13. LA is midly dilated 29-33ml/m2. 14. The right atrium is normal in size. 15. Aortic valve is trileaflet and is mildly thickened. 16. The mitral valve leaflets are mildly thickened. 17. Mild mitral annular calcification present. [employer] APPRENTICE: Clement Dial RDCS
[2016-09-17 11:28] LABS: Glucose,Whole Blood 153 mg/dL (75-99)
--- NOTE | 2016-09-17 12:00 | P.PN ---
Subjective This is a 56-year-old female patient with a previous history of renal cell carcinoma status post partial nephrectomy approximately 10 years ago, along with previous history of cholecystectomy, presented to the burst department with a few days history of abdominal pain and distention. The patient was mario alberto yet she hasn't had any bowel movements over the past 24-48 hours. In addition, over the past 24 hours the patient had multiple episodes of emesis. Denied having any bright red blood per rectum. No melena. No hematochezia. The patient came into the burst department for that reason and as part of further investigation a CAT scan of the chest abdomen and pelvis was done. A CAT scan of the abdomen and pelvis showed evidence of small bowel obstruction without a definitive transition point. There was evidence of a granuloma in the left lower lobe. There is also evidence of partial left nephrectomy with a stable left sided renal calculus which may be an early staghorn calculus. There was evidence of a ventral hernia containing fat only. There was evidence of bilateral lysis at the level of L5 spine and moderate degenerative changes in the spine. The CAT scan of the chest however showed multifocal areas of moderate infiltrates bilaterally predominantly in the upper lobe and 2 of these lesions were essentially cavitating and the largest measuring 1.4 x 1.2 cm in size on the right. This raises the suspicion for metastatic emboli versus septic emboli versus metastatic cancer. Clinically, the patient denies having any respiratory difficulties. No cough or sputum production. No chest tightness. No wheezing. No hemoptysis. In addition, she denies having any fever. Most of any endocarditis or valvular heart disease. No history of any cardiac problems. The patient was treated in the past for a gram-negative urine checked infection with E. coli and she had a PICC line inserted that was subsequently removed after the completion of IV antibiotics which included IV Invanz treatment. This was essentially during a hospitalization back in April 2016 and this was done under the supervision of Dr. Mills. The echocardiogram from that time in April 2016 showed no significant abnormalities and the patient ejection fraction was around 55% with some segmental wall motion abnormalities especially in the basal and inferior wall of the myocardium. The valves were all essentially within normal limits. Currently, the patient has no leukocytosis, she is afebrile, she has no hypotension and she is on 2 L of oxygen nasal cannula and her pulse ox is 98% On 09/17/2016 the patient is being seen in follow-up. She was hospitalized yesterday for a bowel obstruction and subsequently she was found to have bilateral pulmonary nodules that discussed earlier. There is a suspicion for septic versus malignant cancerous pulmonary emboli. In any rate, the patient was still having some abdominal distention and nausea and emesis and earlier this morning and NG tube was inserted and total of 400 mL of gastric juice was aspirated. She has having bowel movements still and she is not completely obstructed and I suspect she has a partial small bowel obstruction. She has adequate bowel sounds. No respiratory difficulties. No fever or chills. Blood cultures were sent and the results are still pending for now. Echocardiogram was also done and the results are still pending for now. No respiratory difficulties whatsoever. Objective - Vital Signs Vital signs: Vital Signs Temp 98.3 F 09/17/16 08:00 Pulse 108 H 09/17/16 08:00 Resp 18 09/17/16 08:00 BP 149/65 09/17/16 08:00 Pulse Ox 95 09/17/16 08:00 Intake & Output 09/16/16 09/17/16 09/17/16 18:59 06:59 18:59 Intake Total 1016.858 472.902 11.000 Output Total 600 58 Balance 1016.858 -127.098 -47.000 Weight 63.3 kg 62.8 kg Intake: Amount of Fluid Infused ( 1000 ml) Intake, IV Titration 16.858 472.902 11.000 Amount Insulin Regular 100 unit 16.858 In Sodium Chloride 0.9% 100 ml @ 0.1 UNITS/KG/HR 5.95 mls/hr IV .[id number] D[facility] Rx#:[id number] Insulin Regular 100 unit 22.902 11.000 In Sodium Chloride 0.9% 100 ml @ Titrate IV .Q0M [facility] Rx#:[id number] Piperacillin-Tazobactam 3 50 .375 gm In Dextrose/Water 1 50ml.bag @ 12.5 mls/hr IVPB Q8HR [facility] Rx#: [id number] Sodium Chloride 0.9% 1, 400 000 ml @ 75 mls/hr IV . [id number] [facility]GA Rx#:[id number] Oral 0 Output: Gastric Drainage 50 Urine 600 Stool 8 Other: Voiding Method Toilet Toilet # Voids 1 1 # Bowel Movements 2 # Emeses 2 - Exam Head exam was generally normal. The patient has an NG tube in place. There was no scleral icterus or corneal arcus. Mucous membranes were moist.Neck was supple and without jugular venous distension, thyromegaly, or carotid bruits. Carotids were easily palpable bilaterally. There was no adenopathy.Lungs were clear to auscultation and percussion, and with normal diaphragmatic excursion. No wheezes or rales were noted. Cardiac exam revealed the PMI to be normally situated and sized. The rhythm was regular and no extrasystoles were noted during several minutes of auscultation. The first and second heart sounds were normal and physiologic splitting of the second heart sound was noted. There were no murmurs, rubs, clicks, or gallops. Abdomen is slightly distended. There is no direct tenderness. There is no rebound tenderness. There is no guarding. Bowel sounds are hypoactive at the present. No ascites.Examination of the extremities revealed easily palpable radial, femoral and pedal pulses. There was no cyanosis, clubbing or edema. - Labs CBC & Chem 7: 09/17/16 09:28 09/17/16 09:28 Labs: Abnormal Lab Results - Last 24 Hours (Table) 09/16/16 09/16/16 09/16/16 Range/Units 12:49 13:56 14:58 Glucose (74-99) mg/dL POC Glucose (mg/dL) 324 H 268 H 200 H (75-99) mg/dL 09/16/16 09/16/16 09/16/16 Range/Units 15:52 16:20 18:06 Glucose (74-99) mg/dL POC Glucose (mg/dL) 138 H 147 H 226 H (75-99) mg/dL 09/16/16 09/16/16 09/16/16 Range/Units 19:34 21:59 22:57 Glucose (74-99) mg/dL POC Glucose (mg/dL) 218 H 119 H 156 H (75-99) mg/dL 09/17/16 09/17/16 09/17/16 Range/Units 01:10 03:05 05:04 Glucose (74-99) mg/dL POC Glucose (mg/dL) 174 H 172 H 161 H (75-99) mg/dL 09/17/16 09/17/16 09/17/16 Range/Units 07:01 09:04 09:28 Glucose 180 H (74-99) mg/dL POC Glucose (mg/dL) 214 H 180 H (75-99) mg/dL 09/17/16 Range/Units 11:07 Glucose (74-99) mg/dL POC Glucose (mg/dL) 153 H (75-99) mg/dL Assessment and Plan Plan: Assessment 1 bilateral pulmonary lesions with 2 a cavitating disease involving the right lung, largest being 1.4 cm in size. Rule out metastatic poorly lesions with early cavitation, rule out septic emboli. Tuberculosis felt to be less likely. Other necrotizing pneumonia are felt to be less likely specially the patient is not acting septic at all. Vasculitis is also less likely taken in account the patient's clinical circumstances. Note that a CAT scan of the chest that was done back in April 2016 showed no abnormalities in the upper lobes. On 09/17/2016, the workup is in progress. Results of the blood culture on echocardiogram are still pending for now. Meanwhile vasculitis workup is also been sent. 2 renal cell carcinoma status post partial nephrectomy on the left 3 small bowel obstruction, likely partial and the patient has an NG tube in place for persistent nausea and emesis. General surgeries on the case. She likely has bowel adhesions taken account of extensive intra-abdominal surgeries in the past. 4 COPD 5 coronary artery disease 6 history of recent urine checked infection force the patient was hospitalized back in April 2016 and the patient was found to have an ESBL producing E. coli requiring inpatient and then outpatient IV antibiotics utilizing a PICC line and IV Invanz 7 previous myocardial infarction 8 peripheral neuropathy 9 hypertension 10 restless leg syndrome 11 COPD 12 chronic back pain. 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 Awaiting blood culture. Awaiting echocardiogram. ID consult was obtained. Will be kept on IV Zosyn. We'll follow.
[2016-09-17 13:43] LABS: Glucose,Whole Blood 163 mg/dL (75-99)
[2016-09-17 15:23] LABS: Glucose,Whole Blood 149 mg/dL (75-99)
--- NOTE | 2016-09-17 15:32 | P.GSCN ---
History of Present Illness Consult date: 09/17/16 Reason for Consult: Surgical eval possible small bowel obstruction History of present illness: A 56-year-old female being seen at the request of the attending for surgical eval for left upper quadrant abdominal pain suspect small bowel obstruction. Patient stated that she been experiencing upper abdominal pain with multiple episodes of vomiting and inability keep fluids down. She described the pain as sharp and cramping mostly in the left upper quadrant. There was no change in bowel habits. There is no constipation or loose stools. Patient denied vomiting any blood. CAT scan of the abdomen and pelvis was done. It showed evidence of a small bowel obstruction without a definitive transition point.. Additionally the patient did have a CAT scan of the chest it showed multifocal areas of moderate infiltrates bilaterally upper lobes. Pulmonology participating in the plan of care. Patient's past surgical history significant for left renal cell cancer status post left partial nephrectomy. Additionally patient is a history of a small bowel obstruction reportedly requiring surgery for relief. Nasal gastric tube was inserted this morning with 400 mL returned abdomen softer patient states she had 2 bowel movements last night is not passing gas not belching Review of Systems Essentially unremarkable except as mentioned in the present illness Past Medical History Past Medical History: Asthma, Cancer, Chest Pain / Angina, COPD, CVA/TIA, Diabetes Mellitus, GERD/Reflux, Hyperlipidemia, Hypertension, Myocardial Infarction ([place]), Syncope, Thyroid Disorder Additional Past Medical History / Comment(s): Left renal cell carcinoma status post partial nephrectomy, CVA 4, diabetes mellitus, COPD, hypothyroidism, chronic back pain, urine checked infection with sepsis secondary to ESBL producing E. coli in April 2016 requiring a PICC line insertion for IV antibiotics, coronary artery disease with previous [place], restless leg syndrome, peripheral neuropathy, hypertension, hypothyroidism, hyperlipidemia, GE reflux, depression Last Myocardial Infarction Date:: 2012 History of Any Multi-Drug Resistant Organisms: ESBL Year Discovered:: 05/07/16 ESBL, 05/15/16 VRE MDRO Source:: URINE E.COLI, EC GALLINARUM Past Surgical History: Appendectomy, Section, Heart Catheterization Additional Past Surgical History / Comment(s): thyroidectomy(non functioning) heart cath 1-3-13 100% occluded LAD unable to stent, partial nephrectomy for a left kidney renal cell carcinoma, PICC line insertion (since removed), colonoscopy, bilateral cataract removal with lens implants, 2 C-Sections. Past Anesthesia/Blood Transfusion Reactions: No Reported Reaction Past Psychological History: Anxiety, Depression Additional Psychological History / Comment(s): TAKES EFFEXOR FOR DEPRESSION STATED SHE FEELS MAINTAINED ON THAT MEDICATION.DENIES ANY THOUGHTS OF HARMING SELF. Pt lives with her significant other in [facility] and is independant. Smoking Status: Current every day smoker Past Alcohol Use History: None Reported Additional Past Alcohol Use History / Comment(s): STARTED SMOKING AT AGE 10.HAD WORKED UP TO 3 PPD BUT HAS CUT DOWN IN ATTEMPT TO QUIT NOW SMOKES 1 PPD Past Drug Use History: Marijuana Additional Drug Use History / Comment(s): [facility] USES MARIJUANA-LASRT USED 3 WEEKS AGO. - Past Family History Father Family Medical History: Myocardial Infarction ([place]) Additional Family Medical History / Comment(s): from [place] at age 48 Mother Family Medical History: Cancer Additional Family Medical History / Comment(s): maeve breasts removed d/t cancer, hysterectomy d/t cancer Medications and Allergies Home Medications Medication Instructions Recorded Confirmed Type Insulin Glargine,Hum.rec.anlog 30 unit SQ W/SUPPER 03/29/14 09/16/16 History [Lantus Solostar] Clopidogrel [Plavix] 75 mg PO DAILY 04/28/15 09/16/16 History Insulin Glulisine [Apidra] 10 unit SQ AC-BID 04/28/15 09/16/16 History Levothyroxine Sodium [Synthroid] 200 mcg PO DAILY 04/28/15 09/16/16 History Omeprazole [PriLOSEC] 40 mg PO DAILY 04/28/15 09/16/16 History Venlafaxine HCl ER [Effexor XR] 150 mg PO DAILY 04/28/15 09/16/16 History cloNIDine HCL [Catapres] 0.1 mg PO HS 04/28/15 09/16/16 History Ergocalciferol [Vitamin D2 50,000 unit PO TU 10/11/15 09/16/16 History (DRISDOL)] Insulin Glargine,Hum.rec.anlog 20 unit SQ W/BRKFST 07/05/16 09/16/16 History [Lantus Solostar] Aspirin [Adult Low Dose Aspirin EC] 81 mg PO DAILY 09/04/16 09/16/16 History Atorvastatin [Lipitor] 40 mg PO HS 09/04/16 09/16/16 History Baclofen 10 mg PO DAILY 09/04/16 09/16/16 History Insulin Glargine,Hum.rec.anlog 10 unit SQ W/LUNCH 09/04/16 09/16/16 History [Lantus Solostar] Naproxen [Naprosyn] 500 mg PO BID 09/04/16 09/16/16 History Allergies Allergy/AdvReac Type Severity Reaction Status Date / Time bee pollen Allergy Unknown Verified 09/16/16 08:26 latex Allergy Rash/Hives Verified 09/16/16 08:26 Sulfa (Sulfonamide Allergy Rash/Hives Verified 09/16/16 08:26 Antibiotics) hydrocodone AdvReac Nausea Verified 09/16/16 08:26 morphine AdvReac Unknown Verified 09/16/16 08:26 prochlorperazine edisylate AdvReac Vomiting Verified 09/16/16 08:26 [From Compazine] prochlorperazine maleate AdvReac Vomiting Verified 09/16/16 08:26 [From Compazine] Surgical - Exam Vital Signs Temp Pulse Resp BP Pulse Ox 98.8 F 126 H 18 164/91 98 09/16/16 07:51 09/16/16 07:51 09/16/16 07:51 09/16/16 07:51 09/16/16 07:51 GENERAL APPEARANCE: 56-year-old female patient is alert, oriented, in no acute distress. VITAL SIGNS: Reviewed HEENT: Head is normocephalic and atraumatic. Pupils are equal and reactive. The nares are patent. Oropharynx is clear without lesions. NECK: Supple without lymphadenopathy. Traches midline. HEART: S1, S2. Regular rate and rhythm. Denying chest pain monitor sinus LUNGS: No crackles or wheezes are heard. Bilateral adequate air movement sats are 96% on room air ABDOMEN: Soft, slight tenderness, slightly distended with good bowel sounds. No peritoneal signs. No palpable organomegaly or masses. Nasal gastric tube connected to suction states had 2 bowel movements last night states urinating no difficulty EXTREMITIES: Normal skin color and turgor. No cyanosis, rash, ulceration, clubbing or edema. Radial pedal pulses are 2/4 bilaterally. NEUROLOGICAL: No focal deficits. Strength and sensation are grossly intact. Results - Labs 09/17/16 09:28 09/17/16 09:28 Abnormal Lab Results - Last 24 Hours (Table) 09/16/16 09/16/16 09/16/16 Range/Units 15:52 16:20 18:06 Glucose (74-99) mg/dL POC Glucose (mg/dL) 138 H 147 H 226 H (75-99) mg/dL 09/16/16 09/16/16 09/16/16 Range/Units 19:34 21:59 22:57 Glucose (74-99) mg/dL POC Glucose (mg/dL) 218 H 119 H 156 H (75-99) mg/dL 09/17/16 09/17/16 09/17/16 Range/Units 01:10 03:05 05:04 Glucose (74-99) mg/dL POC Glucose (mg/dL) 174 H 172 H 161 H (75-99) mg/dL 09/17/16 09/17/16 09/17/16 Range/Units 07:01 09:04 09:28 Glucose 180 H (74-99) mg/dL POC Glucose (mg/dL) 214 H 180 H (75-99) mg/dL 09/17/16 09/17/16 Range/Units 11:07 13:41 Glucose (74-99) mg/dL POC Glucose (mg/dL) 153 H 163 H (75-99) mg/dL Microbiology - Last 24 Hours (Table) 09/16/16 21:45 Urine Culture - Preliminary Urine,Voided Diabetes panel 09/17/16 Range/Units 09:28 Sodium 143 (137-145) mmol/L Potassium 4.5 (3.5-5.1) mmol/L Chloride 105 (98-107) mmol/L Carbon Dioxide 26 (22-30) mmol/L BUN 9 (7-17) mg/dL Creatinine 0.65 (0.52-1.04) mg/dL Glucose 180 H (74-99) mg/dL Calcium 9.8 (8.4-10.2) mg/dL AST 18 (14-36) U/L ALT 24 (9-52) U/L Alkaline Phosphatase 118 (38-126) U/L Total Protein 6.3 (6.3-8.2) g/dL Albumin 3.6 (3.5-5.0) g/dL Calcium panel 09/17/16 Range/Units 09:28 Calcium 9.8 (8.4-10.2) mg/dL Albumin 3.6 (3.5-5.0) g/dL Pituitary panel 09/17/16 Range/Units 09:28 Sodium 143 (137-145) mmol/L Potassium 4.5 (3.5-5.1) mmol/L Chloride 105 (98-107) mmol/L Carbon Dioxide 26 (22-30) mmol/L BUN 9 (7-17) mg/dL Creatinine 0.65 (0.52-1.04) mg/dL Glucose 180 H (74-99) mg/dL Calcium 9.8 (8.4-10.2) mg/dL Adrenal panel 09/17/16 Range/Units 09:28 Sodium 143 (137-145) mmol/L Potassium 4.5 (3.5-5.1) mmol/L Chloride 105 (98-107) mmol/L Carbon Dioxide 26 (22-30) mmol/L BUN 9 (7-17) mg/dL Creatinine 0.65 (0.52-1.04) mg/dL Glucose 180 H (74-99) mg/dL Calcium 9.8 (8.4-10.2) mg/dL Total Bilirubin 0.5 (0.2-1.3) mg/dL AST 18 (14-36) U/L ALT 24 (9-52) U/L Alkaline Phosphatase 118 (38-126) U/L Total Protein 6.3 (6.3-8.2) g/dL Albumin 3.6 (3.5-5.0) g/dL Assessment and Plan Plan: Impression Present on admission abdominal pain suspect due to a partial small bowel obstruction Chronic nicotine dependency greater than a 40 year history 1 pack a day COPD no evidence of acute exacerbation History of renal cell carcinoma CAT scan of the chest show cavitary lesion lung CAT scan of the chest bilateral pulmonary nodules Persistent abdominal nausea emesis abdominal distention relieved with a nasal gastric tube 400 mL obtained after insertion done on September 17 Echocardiogram done on September 16 left ventricular systolic function low normal with an EF between 50 and 55%. Depressive disorder nonspecified History of a prior CVA with mild residual left-sided weakness UTI in April 2016 found to have ESBL with E. coli Chronic back pain Plan Continue with the nasal gastric tube connected to suction pain control Monitor labs IV fluid for hydration DVT and GI prophylaxis Attempt to increase activity as tolerated Thank you for allowing us to participate in the surgical management of your patient further surgical recommendations pending The above dictated assessment and findings were discussed with dr Magdalena Richards and the plan of care have been dictated as directed. Shaina Dockery nurse practitioner acting as a scribe for Magdalena
[2016-09-17] MEDS: INSULIN REGULAR 100 UNIT in SODIUM CHLORIDE 0.9% 100 ML IV SCH (15:38)
[2016-09-17] MEDS ORDERED: TEMAZEPAM 15 MG CAP PO PRN (16:57)
[2016-09-17 17:04] LABS: Glucose,Whole Blood 132 mg/dL (75-99)
--- NOTE | 2016-09-17 17:26 | P.PN ---
Subjective Date of service 09/17/2016. Progress note being dictated for Dr. Hill. Interval history: This is a 56-year-old female admitted with possible small bowel obstruction and multiple other medical issues. Evaluated by surgery. Abdominal x-ray reporting nonspecific abdomen, suspicious for small bowel obstruction with extensive retained fecal debris throughout the colon. NG tube placed for decompression, 400 MLS immediate return. States she had 2 bowel movements earlier this morning. Blood cultures pending. CT reported no evidence for PE, multifocal bilateral nodular infiltrates with some cavitary lesions present with prominent in upper lungs, suggestive of septic emboli to infectious etiology Review of systems: HEENT: Denies headache or focal deficits. Denies any dizziness or lightheadedness. Respiratory: Denies any increased shortness of breath. Cardiac: Denies any chest pain, palpitations. GI: Denies any nausea, vomiting, or diarrhea. Denies any abdominal tenderness. : Denies any dysuria. Psychiatry: Denies any anxiety or depression. Active Medications Clonidine (Catapres) 0.1 mg PO HS [facility] Last Admin: 09/16/16 21:08 Dose: Not Given Heparin Sodium (Porcine) (Heparin) 5,000 unit SQ Q12HR [facility] Last Admin: 09/17/16 09:30 Dose: 5,000 unit Hydromorphone HCl (Dilaudid) 0.5 mg IV Q3HR PRN PRN Reason: Severe Pain Last Admin: 09/17/16 13:02 Dose: 0.5 mg Sodium Chloride (Saline 0.9%) 1,000 mls @ 75 mls/hr IV .[id number] [facility] Last Admin: 09/17/16 15:36 Dose: Not Given Insulin Human Regular 100 unit (/ Sodium Chloride) 101 mls @ 0 mls/hr IV .Q0M [facility]; Titrate PRN Reason: Protocol Last Admin: 09/17/16 15:38 Dose: 1 units/hr, 1.01 mls/hr Piperacillin/Tazobactam/ (Dextrose 3.375 gm/ IV Solution) 50 mls @ 12.5 mls/hr IVPB Q8HR [facility] Last Admin: 09/17/16 15:38 Dose: 12.5 mls/hr Insulin Human Lispro (Humalog) 8 unit SQ AC-TID [facility] Last Admin: 09/17/16 11:16 Dose: Not Given Levothyroxine Sodium (Synthroid) 200 mcg PO DAILY@0630 [facility] Last Admin: 09/17/16 09:22 Dose: Not Given Miscellaneous Information (Rx Info: Iv Contrast Was Given) 1 each MISCELLANE DAILY PRN PRN Reason: Per Protocol Stop: 09/18/16 09:53 Last Admin: 09/16/16 09:54 Dose: 1 each Miscellaneous Information (Magnesium Per Protocol) 1 each MISCELLANE DAILY PRN ; Protocol PRN Reason: Per Protocol Miscellaneous Information (Potassium Per Protocol) 1 each MISCELLANE DAILY PRN PRN Reason: Per Protocol Naloxone HCl (Narcan) 0.2 mg IV Q2M PRN PRN Reason: Opioid Reversal Ondansetron HCl (Zofran) 4 mg IVP Q8HR PRN PRN Reason: Nausea And Vomiting Last Admin: 09/17/16 10:30 Dose: 4 mg Venlafaxine HCl (Effexor Xr) 150 mg PO DAILY [facility] Last Admin: 09/17/16 09:22 Dose: Not Given Objective - Vital Signs Vital signs: Vital Signs Temp 98.6 F 09/17/16 12:00 Pulse 98 09/17/16 12:00 Resp 18 09/17/16 12:00 BP 152/68 09/17/16 12:00 Pulse Ox 96 09/17/16 12:00 Intake & Output 09/16/16 09/17/16 09/17/16 18:59 06:59 18:59 Intake Total 1016.858 472.902 13.458 Output Total 600 62 Balance 1016.858 -127.098 -48.542 Weight 63.3 kg 62.8 kg 62.8 kg Intake: Amount of Fluid Infused ( 1000 ml) Intake, IV Titration 16.858 472.902 13.458 Amount Insulin Regular 100 unit 16.858 In Sodium Chloride 0.9% 100 ml @ 0.1 UNITS/KG/HR 5.95 mls/hr IV .[id number] [facility] Rx#:[id number] Insulin Regular 100 unit 22.902 13.458 In Sodium Chloride 0.9% 100 ml @ Titrate IV .Q0M [facility] Rx#:[id number] Piperacillin-Tazobactam 3 50 .375 gm In Dextrose/Water 1 50ml.bag @ 12.5 mls/hr IVPB Q8HR [facility] Rx#: [id number] Sodium Chloride 0.9% 1, 400 000 ml @ 75 mls/hr IV . [id number] [facility] Rx#:[id number] Oral 0 Output: Gastric Drainage 50 Urine 600 Stool 12 Other: Voiding Method Toilet Toilet # Voids 1 1 # Bowel Movements 2 # Emeses 2 - Exam PHYSICAL EXAM: VITAL SIGNS: As above GENERAL: [Sitting up in bed, tired appearing] HEENT: [Pupils equal conjunctiva normal.] NECK: [Supple, no JVD] RESPIRATORY EFFORT:[Normal] LUNGS: [Essentially clear, bilateral bases diminished, no rhonchi, wheezing or crackles] CARDIOVASCULAR[regular S1-S2, no murmurs rubs or gallops no edema] GI: [Abdomen softer, distended, minimally generalized diffuse tenderness, hypoactive bowel sounds. No guarding, no rigidity.] PSYCH: [Alert and oriented -3, mood and affect normal.] NEURO: [No focal deficits, moves all 4 extremities, strength and sensation grossly intact] - Labs CBC & Chem 7: 09/17/16 09:28 09/17/16 09:28 Labs: Abnormal Lab Results - Last 24 Hours (Table) 09/16/16 09/16/16 09/16/16 Range/Units 14:58 15:52 16:20 Glucose (74-99) mg/dL POC Glucose (mg/dL) 200 H 138 H 147 H (75-99) mg/dL 09/16/16 09/16/16 09/16/16 Range/Units 18:06 19:34 21:59 Glucose (74-99) mg/dL POC Glucose (mg/dL) 226 H 218 H 119 H (75-99) mg/dL 09/16/16 09/17/16 09/17/16 Range/Units 22:57 01:10 03:05 Glucose (74-99) mg/dL POC Glucose (mg/dL) 156 H 174 H 172 H (75-99) mg/dL 09/17/16 09/17/16 09/17/16 Range/Units 05:04 07:01 09:04 Glucose (74-99) mg/dL POC Glucose (mg/dL) 161 H 214 H 180 H (75-99) mg/dL 09/17/16 09/17/1617 Range/Units 09:28 11:07 13:41 Glucose 180 H (74-99) mg/dL POC Glucose (mg/dL) 153 H 163 H (75-99) mg/dL Microbiology - Last 24 Hours (Table) 09/16/16 21:45 Urine Culture - Preliminary Urine,Voided Assessment and Plan Plan: 1. [Small bowel obstruction, possibly partial,]. 2. [Sepsis of undetermined etiology with possible septic emboli with cavitary lesions in bilateral lung]. 3. [Diabetes mellitus type 2, uncontrolled without evidence of DKA, on insulin drip]. Hemoglobin A1c 14 4. [Possible starvation ketoacidosis secondary to vomiting]. 5. [Increased d-dimer without evidence of pulmonary embolism]. 6. [History of intermittent chronic asthma, COPD]. 7. [History of CVA, TIA]. 8. Gastroesophageal reflux disease 9. Hypertension 10. Hyperlipidemia 11. CAD, history of [place] 12. Hypothyroidism 13. History of left kidney cancer with partial nephrectomy 14. Peripheral neuropathy secondary to diabetes mellitus II 15. Chronic back pain with degenerative joint disease 16. History of ESBL 17. History of anxiety and depression 18. continued ongoing nicotine dependence 19. History of THC. Plan: Continue on current medication regime, broad spectrum antibiotics, monitoring and symptomatic treatment. Follow blood cultures closely. Antibiotics as per infectious disease. GI and DVT prophylaxis in place. Maintain IV fluid hydration. Restoril added to med regime for patient's complaints of insomnia. Maintain insulin drip with close monitoring of Accu- Cheks. Increase activity as tolerated. Follow closely with surgery. Smoking cessation readdressed .Further recommendations to follow. Prognosis guarded given multiple complex medical issues. The impression and plan of care has been dictated as directed. : I performed a H&P examination of this patient and discussed the same with the dictator. I agree with the dictator's note. Any additional findings/opinions/ etc. will be noted.
--- NOTE | 2016-09-17 18:52 | PN ---
DATE OF SERVICE: 09/15/2016 This 56-year-old woman who was admitted with small bowel obstruction, paralytic ileus, also had possible sepsis. The patient also has been seen by multiple consultants. Patient is still has NG tube in situ. Seen and evaluated the patient along with the nurse practitioner. Please refer to the nurse practitioner notes and impression documented for further information. Prognosis guarded. Further recommendations to follow.
[2016-09-17 18:53] LABS: Glucose,Whole Blood 169 mg/dL (75-99)
[2016-09-17] MEDS: cloNIDine HCL 0.1 MG TAB PO SCH (19:35)
[2016-09-17 21:05] LABS: Glucose,Whole Blood 153 mg/dL (75-99)
[2016-09-17 23:06] LABS: Glucose,Whole Blood 161 mg/dL (75-99)
[2016-09-17 23:20] LABS: Glucose,Whole Blood 176 mg/dL (75-99)
[2016-09-18 01:02] LABS: Glucose,Whole Blood 147 mg/dL (75-99)
[2016-09-18] MEDS: HYDROmorphone 1 MG/ML 1 ML SYRINGE IV PRN ×6 (01:22→20:05)
[2016-09-18] MEDS: INSULIN LISPRO (humaLOG) 300 UNIT/3 ML VIAL SQ SCH ×3 (03:06→13:27)
[2016-09-18] MEDS: ONDANSETRON 4 MG/2 ML VIAL IVP PRN ×2 (03:12→10:53)
[2016-09-18 03:22] LABS: Glucose,Whole Blood 173 mg/dL (75-99)
[2016-09-18 04:55] LABS: Glucose,Whole Blood 160 mg/dL (75-99)
[2016-09-18] MEDS: LEVOTHYROXINE 100 MCG TAB PO SCH (06:09)
[2016-09-18 07:30] LABS: Glucose,Whole Blood 162 mg/dL (75-99)
--- NOTE | 2016-09-18 08:28 | XR ---
EXAMINATION TYPE: XR abdomen 2V DATE OF EXAM ORDERED: 09/18/2016 6:33 AM HISTORY: Bowel obstruction. COMPARISON: Previous study dated 09/17/2016. FINDINGS: There is evidence of pneumobilia. There are innumerable air-fluid levels within the small bowel. There is no bowel dilatation or free a ir. An NG tube is been passed. The tip is within the stomach. There is moderate feces on the right si de of the colon. IMPRESSION: STABLE APPEARANCE TO THE ABDOMEN WITH FINDINGS CONSISTENT WITH SMALL BOWEL OBSTRUCTION VERSUS ILEUS.
[2016-09-18] MEDS: VENLAFAXINE HCL ER 150 MG CAP PO SCH (08:49)
[2016-09-18] MEDS: HEPARIN SODIUM,PORCINE 5,000 UNIT/ML 1 ML VIAL SQ SCH ×2 (09:04→20:04)
[2016-09-18] MEDS: PIPERACILLIN-TAZOBACTAM 3.375 GM in DEXTROSE/WATER 1 50ML.BAG IVPB SCH ×2 (09:04→15:22)
[2016-09-18] MEDS: SODIUM CHLORIDE 0.9% 1,000 ML IV SCH (09:04)
--- NOTE | 2016-09-18 09:28 | P.PN ---
Subjective A 56-year-old female being seen this morning on rounds. Currently resting in bed. Patient states the abdominal pain "feels the same it's no better no worse " patient states is not passing any gas. Patient reports that she had 3 bowel movements yesterday no stool this morning. Nasogastric tube is in place connected to suction. Abdominal x-ray reviewed shows findings consistent with a small bowel obstruction or ileus. Abdomen currently soft a few hypoactive bowel tones noted afebrile. Patient's been seen by surgical service at the request of the attending for an evaluation of a possible small bowel obstruction. Nasogastric tube for the last 8 hours 900 mL documented Objective - Vital Signs Vital signs: Vital Signs Temp 97.9 F 09/18/16 04:00 Pulse 108 H 09/18/16 04:00 Resp 17 09/18/16 04:00 BP 155/87 09/18/16 04:00 Pulse Ox 99 09/18/16 04:00 Intake & Output 09/17/16 09/18/16 09/18/16 18:59 06:59 18:59 Intake Total 17.626 13.986 3.523 Output Total 458 1304 Balance -440.374 -1290.014 3.523 Weight 62.8 kg 61 kg Intake: Intake, IV Titration 17.626 13.986 3.523 Amount Insulin Regular 100 unit 17.626 13.986 3.523 In Sodium Chloride 0.9% 100 ml @ Titrate IV .Q0M [facility] Rx#:[id number] Oral 0 Output: Gastric Drainage 450 500 Urine 800 Stool 8 4 Other: Voiding Method Toilet Bedside Commode # Voids 1 1 # Bowel Movements 2 - Exam Physical exam A 56-year-old female resting in bed pleasant cooperative oriented 3. Patient states anxious to get out of bed" Lungs essentially clear with adequate air movement sats are documented 96% on room air Heart S1-S2 audible regular denying chest pain monitor sinus rhythm no ectopy no murmur Abdomen soft no facial grimacing with palpitation to the abdominal wall nasal gastric tube connected to suction no stool no gas states urinating no difficulty extremities no evidence of edema bilaterally - Labs CBC & Chem 7: 09/17/16 09:28 09/17/16 09:28 Labs: Abnormal Lab Results - Last 24 Hours (Table) 09/17/16 09/17/16 09/17/16 Range/Units 09:28 11:07 13:41 Glucose 180 H (74-99) mg/dL POC Glucose (mg/dL) 153 H 163 H (75-99) mg/dL 09/17/16 09/17/16 09/17/16 Range/Units 15:11 17:01 18:51 Glucose (74-99) mg/dL POC Glucose (mg/dL) 149 H 132 H 169 H (75-99) mg/dL 09/17/16 09/17/16 09/17/16 Range/Units 21:04 23:04 23:08 Glucose (74-99) mg/dL POC Glucose (mg/dL) 153 H 161 H 176 H (75-99) mg/dL 09/18/16 09/18/16 09/18/16 Range/Units 00:57 03:21 04:53 Glucose (74-99) mg/dL POC Glucose (mg/dL) 147 H 173 H 160 H (75-99) mg/dL 09/18/16 Range/Units 07:18 Glucose (74-99) mg/dL POC Glucose (mg/dL) 162 H (75-99) mg/dL Microbiology - Last 24 Hours (Table) 09/16/16 21:15 Blood Culture - Preliminary Blood No Growth after 24 hours 09/16/16 21:45 Urine Culture - Preliminary Urine,Voided Assessment and Plan Plan: Impression Present on admission abdominal pain suspect due to a partial small bowel obstruction Chronic nicotine dependency greater than a 40 year history 1 pack a day COPD no evidence of acute exacerbation History of renal cell carcinoma CAT scan of the chest show cavitary lesion lung CAT scan of the chest bilateral pulmonary nodules Persistent abdominal nausea emesis abdominal distention relieved with a nasal gastric tube 400 mL obtained after insertion done on September 17 Echocardiogram done on September 16 left ventricular systolic function low normal with an EF between 50 and 55%. Depressive disorder nonspecified History of a prior CVA with mild residual left-sided weakness UTI in April 2016 found to have ESBL with E. coli Chronic back pain Plan Continue with the nasal gastric tube connected to suction pain control Monitor labs IV fluid for hydration DVT and GI prophylaxis Attempt to increase activity as tolerated Thank you for allowing us to participate in the surgical management of your patient further surgical recommendations pending The above dictated assessment and findings were discussed with dr Magdalena Impression and the plan of care have been dictated as directed. Shaina Dockery nurse practitioner acting as a scribe for Magdalena
[2016-09-18 09:30] LABS: Glucose,Whole Blood 150 mg/dL (75-99)
[2016-09-18] MEDS: PANTOPRAZOLE 40 MG/10 ML VIAL IVP SCH ×2 (10:53→20:04)
[2016-09-18 10:54] LABS: Glucose,Whole Blood 145 mg/dL (75-99)
[2016-09-18] MEDS: NICOTINE 21MG/24HR PATCH TRANSDERM SCH (11:49)
[2016-09-18 13:25] LABS: Glucose,Whole Blood 157 mg/dL (75-99)
[2016-09-18 15:26] LABS: Glucose,Whole Blood 133 mg/dL (75-99)
[2016-09-18 15:49] LABS: C-ANCA <1:20 Titer (<1:20); P-ANCA <1:20 Titer (<1:20)
--- NOTE | 2016-09-18 16:09 | P.PN ---
Subjective Date of service 09/18/2016. Progress note being dictated for Dr. Hill. Interval history: This is a 56-year-old female admitted with possible small bowel obstruction and multiple other medical issues. NG tube placed yesterday for decompression. Persistent abdominal pain, denies worsening. No bowel movements nor flatus this morning, states 3 bowel movements yesterday. Abdominal x-ray repeated, reporting stable appearance, consistent small bowel obstruction versus ileus. Review of systems: HEENT: Denies headache or focal deficits. Denies any dizziness or lightheadedness. Respiratory: Denies any increased shortness of breath. Cardiac: Denies any chest pain, palpitations. GI: Denies any nausea, vomiting, or diarrhea. Denies any abdominal tenderness. : Denies any dysuria. Psychiatry: Denies any anxiety or depression. Active Medications Clonidine (Catapres) 0.1 mg PO HS [facility] Last Admin: 09/17/16 19:35 Dose: Not Given Heparin Sodium (Porcine) (Heparin) 5,000 unit SQ Q12HR [facility] Last Admin: 09/18/16 09:04 Dose: 5,000 unit Hydromorphone HCl (Dilaudid) 0.5 mg IV Q3HR PRN PRN Reason: Severe Pain Last Admin: 09/18/16 11:49 Dose: 0.5 mg Sodium Chloride (Saline 0.9%) 1,000 mls @ 75 mls/hr IV .[id number] [facility] Last Admin: 09/18/16 09:04 Dose: 75 mls/hr Insulin Human Regular 100 unit (/ Sodium Chloride) 101 mls @ 0 mls/hr IV .Q0M [facility]; Titrate PRN Reason: Protocol Last Titration: 09/18/16 15:44 Dose: 0 units/hr, 0 mls/hr Piperacillin/Tazobactam/ (Dextrose 3.375 gm/ IV Solution) 50 mls @ 12.5 mls/hr IVPB Q8HR [facility] Last Admin: 09/18/16 15:22 Dose: 12.5 mls/hr Insulin Human Lispro (Humalog) 8 unit SQ AC-TID [facility] Last Admin: 09/18/16 13:27 Dose: Not Given Levothyroxine Sodium (Synthroid) 200 mcg PO DAILY@0630 [facility] Last Admin: 09/18/16 06:09 Dose: 200 mcg Miscellaneous Information (Magnesium Per Protocol) 1 each MISCELLANE DAILY PRN ; Protocol PRN Reason: Per Protocol Miscellaneous Information (Potassium Per Protocol) 1 each MISCELLANE DAILY PRN PRN Reason: Per Protocol Naloxone HCl (Narcan) 0.2 mg IV Q2M PRN PRN Reason: Opioid Reversal Nicotine (Habitrol 21mg/24hr Patch) 1 patch TRANSDERM DAILY [facility] Last Admin: 09/18/16 11:49 Dose: 1 patch Ondansetron HCl (Zofran) 4 mg IVP Q8HR PRN PRN Reason: Nausea And Vomiting Last Admin: 09/18/16 10:53 Dose: 4 mg Pantoprazole Sodium (Protonix) 40 mg IVP BID [facility] Last Admin: 09/18/16 10:53 Dose: 40 mg Temazepam (Restoril) 15 mg PO HS PRN PRN Reason: Insomnia Last Admin: 09/17/16 21:17 Dose: 15 mg Venlafaxine HCl (Effexor Xr) 150 mg PO DAILY [facility] Last Admin: 09/18/16 08:49 Dose: Not Given Objective - Vital Signs Vital signs: Vital Signs Temp 97.9 F 09/18/16 04:00 Pulse 108 H 09/18/16 04:00 Resp 17 09/18/16 04:00 BP 155/87 09/18/16 04:00 Pulse Ox 99 09/18/16 04:00 Intake & Output 09/17/16 09/18/16 09/18/16 18:59 06:59 18:59 Intake Total 17.626 13.986 3.523 Output Total 458 1304 Balance -440.374 -1290.014 3.523 Weight 62.8 kg 61 kg Intake: Intake, IV Titration 17.626 13.986 3.523 Amount Insulin Regular 100 unit 17.626 13.986 3.523 In Sodium Chloride 0.9% 100 ml @ Titrate IV .Q0M [facility] Rx#:[id number] Oral 0 Output: Gastric Drainage 450 500 Urine 800 Stool 8 4 Other: Voiding Method Toilet Bedside Commode # Voids 1 1 # Bowel Movements 2 - Exam PHYSICAL EXAM: VITAL SIGNS: As above GENERAL: [Sitting up in bed, no acute distress] HEENT: [Pupils equal conjunctiva normal. NG tube present] NECK: [Supple, no JVD] RESPIRATORY EFFORT:[Normal] LUNGS: [Essentially clear, bilateral bases diminished, no rhonchi, wheezing or crackles] CARDIOVASCULAR[regular S1-S2, no murmurs rubs or gallops no edema] GI: [Abdomen softer, distended, minimally generalized diffuse tenderness, hypoactive bowel sounds. No guarding, no rigidity.] PSYCH: [Alert and oriented -3, mood and affect normal.] NEURO: [No focal deficits, moves all 4 extremities, strength and sensation grossly intact] Microbiology 09/16/16 08:00 Blood Blood Culture - Preliminary No Growth after 48 hours 09/16/16 21:45 Urine,Voided Urine Culture - Final 09/16/16 21:15 Blood Blood Culture - Preliminary No Growth after 24 hours - Labs CBC & Chem 7: 09/17/16 09:28 09/17/16 09:28 Labs: Abnormal Lab Results - Last 24 Hours (Table) 09/17/16 09/17/16 09/17/16 Range/Units 09:28 11:07 13:41 Glucose 180 H (74-99) mg/dL POC Glucose (mg/dL) 153 H 163 H (75-99) mg/dL 09/17/16 09/17/16 09/17/16 Range/Units 15:11 17:01 18:51 Glucose (74-99) mg/dL POC Glucose (mg/dL) 149 H 132 H 169 H (75-99) mg/dL 09/17/16 09/17/16 09/17/16 Range/Units 21:04 23:04 23:08 Glucose (74-99) mg/dL POC Glucose (mg/dL) 153 H 161 H 176 H (75-99) mg/dL 09/18/16 09/18/16 09/18/16 Range/Units 00:57 03:21 04:53 Glucose (74-99) mg/dL POC Glucose (mg/dL) 147 H 173 H 160 H (75-99) mg/dL 09/18/16 Range/Units 07:18 Glucose (74-99) mg/dL POC Glucose (mg/dL) 162 H (75-99) mg/dL Microbiology - Last 24 Hours (Table) 09/16/16 21:15 Blood Culture - Preliminary Blood No Growth after 24 hours 09/16/16 21:45 Urine Culture - Preliminary Urine,Voided Assessment and Plan Plan: 1. [Small bowel obstruction, possibly partial, possible ileus]. 2. [Sepsis of undetermined etiology with possible septic emboli with cavitary lesions in bilateral lung]. 3. [Diabetes mellitus type 2, uncontrolled without evidence of DKA, on insulin drip]. Hemoglobin A1c 14 4. [Possible starvation ketoacidosis secondary to vomiting]. 5. [Increased d-dimer without evidence of pulmonary embolism]. 6. [History of intermittent chronic asthma, COPD]. 7. [History of CVA, TIA]. 8. Gastroesophageal reflux disease 9. Hypertension 10. Hyperlipidemia 11. CAD, history of [place] 12. Hypothyroidism 13. History of left kidney cancer with partial nephrectomy 14. Peripheral neuropathy secondary to diabetes mellitus II 15. Chronic back pain with degenerative joint disease 16. History of ESBL 17. History of anxiety and depression 18. continued ongoing nicotine dependence 19. History of THC. Plan: Continue on current medication regime, broad spectrum antibiotics, monitoring and symptomatic treatment. Maintain IV fluid hydration. Potential Surgery tomorrow .Follow blood cultures closely. Antibiotics as per infectious disease. GI and DVT prophylaxis in place. Maintain IV fluid hydration. Maintain insulin drip with close monitoring of Accu-Cheks. Increase activity as tolerated. Follow closely with surgery. Smoking cessation readdressed .Further recommendations to follow. Prognosis guarded given multiple complex medical issues. The impression and plan of care has been dictated as directed. : I performed a H&P examination of this patient and discussed the same with the dictator. I agree with the dictator's note. Any additional findings/opinions/ etc. will be noted.
[2016-09-18 17:29] LABS: Glucose,Whole Blood 135 mg/dL (75-99)
[2016-09-18 18:59] LABS: Glucose,Whole Blood 163 mg/dL (75-99)
--- NOTE | 2016-09-18 19:46 | P.PN ---
Progress Note - Text Patient seen and reevaluated this evening. Despite conservative measures including placement of a nasogastric tube, she denies any passage of flatus. She still reports diffuse abdominal pain. She has history of multiple abdominal surgeries which puts her at risk for intra- abdominal adhesions. I have recommended open exploratory laparotomy with planned incisions described. Possibility of small bowel resection was also reviewed with her in detail. All her questions were answered. We'll proceed with exploration tomorrow.
[2016-09-18] MEDS: cloNIDine HCL 0.1 MG TAB PO SCH (20:04)
--- NOTE | 2016-09-18 20:09 | PN ---
DATE OF SERVICE: 09/18/2016 This 56-year-old woman who was admitted with multiple medical problems, including small bowel obstruction also suspected sepsis also, the patient diabetes mellitus also and starvation ketoacidosis as well. Surgery is planning surgery, surgery. Seen and evaluated the patient along with nurse practitioner. Please refer to the nurse practitioner notes and impression; documented as a scribe for further information. Prognosis guarded. Further recommendations to follow. MTDD
[2016-09-18 20:48] LABS: Glucose,Whole Blood 235 mg/dL (75-99)
--- NOTE | 2016-09-18 22:43 | P.PN ---
Subjective Principal diagnosis: Nausea and emesis 56-year-old female who has a history of multiple medical troubles that includes diabetes mellitus type 2 poorly controlled over time, the history of ESBL E. coli infection with sepsis, renal cell carcinoma with left partial nephrectomy. She presents to the emergency center with approximately a day of increasing abdominal pain in the periumbilical area associated with multiple bouts of nausea and emesis. She was unable to take in food or fluids. She was at her blood sugars were becoming elevated in counseling she presented to the emergency center she had markedly elevated blood sugar, she was acetone positive , A presentation evaluations performed including imaging studies showed evidence of a small bowel obstruction. She continues been admitted and receiving fluids. Antibiotic therapy was started with concerns of her prior urine infection and abdominal infection. With concerns of sepsis the infectious diseases consultation was requested. This time the patient feels quite poorly. She has ongoing periumbilical abdominal pain that she relates as a 7 out of 10. She has relate the nausea seems to be slightly better. She did have emesis a while ago. She's been evaluated by general surgery and NG tube will be placed to see if this can improve her symptoms. Of note she's had computed tomography scan that shows evidence of new abnormalities into her chest. Concerns to cavitary pneumonia, metastatic disease, septic pulmonary emboli. Apparently is going to the operating room tomorrow for exploratory laparotomy Objective - Vital Signs Vital signs: Vital Signs Temp 98 F 09/18/16 20:00 Pulse 108 H 09/18/16 20:00 Resp 18 09/18/16 20:00 BP 162/72 09/18/16 20:00 Pulse Ox 100 09/18/16 20:00 Intake & Output 09/18/16 09/18/16 09/19/16 06:59 18:59 06:59 Intake Total 13.986 14.408 361.7 Output Total 1304 300 Balance -1290.014 -285.592 361.7 Weight 61 kg Intake: Intake, IV Titration 13.986 14.408 1.7 Amount Insulin Regular 100 unit 13.986 14.408 1.7 In Sodium Chloride 0.9% 100 ml @ Titrate IV .Q0M [facility] Rx#:[id number] Oral 0 360 Output: Gastric Drainage 500 Urine 800 300 Stool 4 Other: Voiding Method Bedside Commode Bedside Commode Bedside Commode # Voids 1 - Exam HEENT: Anicteric conjunctiva are pink and moist nasal mucosa grossly intact without significant lesions, there is no thrush. Fully edentulous Neck: The neck is supple without significant lymphadenopathy or thyromegaly. Lungs: Symmetrical air entry with few expiratory wheezes no chris bronchial sounds. Heart: Regular rate and rhythm with an audible S1-S2, no S3 no S4. There is no significant murmur click or rub, PMI was nondisplaced. Abdomen: Minimally distended. Few high pitched bowel sounds, distinctly tender over the periumbilical area, and then the was not rigid and there was no rebound Extremities: The upper extremities have excellent pulses they are symmetric, no significant petechiae or telangiectasia. No splinter hemorrhages were noted. The lower extremities are free from significant edema. The peripheral pulses were 2+ and symmetric. Neuro: Awake alert oriented to person place and time. There are no acute new gross focal sensory motor deficits. - Labs CBC & Chem 7: 09/17/16 09:28 09/17/16 09:28 Labs: Abnormal Lab Results - Last 24 Hours (Table) 09/17/16 09/17/16 09/18/16 Range/Units 23:04 23:08 00:57 POC Glucose (mg/dL) 161 H 176 H 147 H (75-99) mg/dL 09/18/16 09/18/16 09/18/16 Range/Units 03:21 04:53 07:18 POC Glucose (mg/dL) 173 H 160 H 162 H (75-99) mg/dL 09/18/16 09/18/16 09/18/16 Range/Units 09:00 10:52 13:23 POC Glucose (mg/dL) 150 H 145 H 157 H (75-99) mg/dL 09/18/16 09/18/16 09/18/16 Range/Units 15:13 17:19 18:58 POC Glucose (mg/dL) 133 H 135 H 163 H (75-99) mg/dL 09/18/16 Range/Units 20:47 POC Glucose (mg/dL) 235 H (75-99) mg/dL Microbiology - Last 24 Hours (Table) 09/16/16 21:45 Urine Culture - Final Urine,Voided 09/16/16 21:15 Blood Culture - Preliminary Blood No Growth after 24 hours Laboratory Results WBC 6.3 k/uL (3.8-10.6) 09/17/16 09:28 RBC 4.42 m/uL (3.80-5.40) 09/17/16 09: Hgb 12.9 gm/dL (11.4-16.0) 09/17/16: Hct 38.5 % (34.0-46.0) 09/17/16: MCV 87.2 fL (80.0-100.0) 09/17/16: MCH 29.2 pg (25.0-35.0) 09/17/16: MCHC 33.5 g/dL (31.0-37.0) 09/17/16: RDW 14.0 % (11.5-15.5) 09/17/16: Plt Count 195 k/uL (150-450) 09/17/16 09: Neutrophils % 76 % 09/17/16 09: Lymphocytes % 19 % 09/17/16 09: Monocytes % 3 % 09/17/16 09:28 Eosinophils % 1 % 09/17/16 09: Basophils % 0 % 09/17/16:28 Neutrophils # 4.8 k/uL (1.3-7.7) 09/17/16 09: Lymphocytes # 1.2 k/uL (1.0-4.8) 09/17/16 09: Monocytes # 0.2 k/uL (0-1.0) 09/17/16: Eosinophils # 0.1 k/uL (0-0.7) 09/17/16 09: Basophils # 0.0 k/uL (0-0.2) 09/17/16 09: ESR 25 mm/hr (0-20) H 09/16/16 08:00 PT 10.4 sec (9.0-12.0) 09/16/16 08:00 INR 1.0 (<1.1) 09/16/16 08:00 APTT 18.6 sec (22.0-30.0) L 09/16/16 08:00 D-Dimer 13.57 mg/L FEU (<0.60) H 09/16/16 08:00 Sodium 143 mmol/L (137-145) 09/17/16 09:28 Potassium 4.5 mmol/L (3.5-5.1) 09/17/16 09:28 Chloride 105 mmol/L (98-107) 09/17/16 09:28 Carbon Dioxide 26 mmol/L (22-30) 09/17/16 09:28 Anion Gap 12 mmol/L 09/17/16 09:28 BUN 9 mg/dL (7-17) 09/17/16 09:28 Creatinine 0.65 mg/dL (0.52-1.04) 09/17/16 09:28 Est GFR (MDRD) Af Amer >60 (>60 ml/min/1.73 sqM) 09/17/16 09:28 Est GFR (MDRD) Non-Af >60 (>60 ml/min/1.73 sqM) 09/17/16 09:28 Glucose 180 mg/dL (74-99) H 09/17/16 09:28 POC Glucose (mg/dL) 235 mg/dL (75-99) H 09/18/16 20:47 POC Glu [employer] Ewa Jerez 09/18/16 20:[address] Glu mg/dL 367 mg/dL 09/16/16 08:51 Hemoglobin A1c 14.4 % (4.2-6.1) H 09/16/16 08:51 Plasma Lactic Acid Ab 1.1 mmol/L (0.7-2.0) 09/16/16 11:09 Calcium 9.8 mg/dL (8.4-10.2) 09/17/16 09:28 Phosphorus 4.1 mg/dL (2.5-4.5) 09/16/16 14:04 Total Bilirubin 0.5 mg/dL (0.2-1.3) 09/17/16 09:28 AST 18 U/L (14-36) 09/17/16 09:28 ALT 24 U/L (9-52) 09/17/16 09:28 Alkaline Phosphatase 118 U/L (38-126) 09/17/16 09:28 Troponin I <0.012 ng/mL (0.000-0.034) 09/16/16 08:00 Total Protein 6.3 g/dL (6.3-8.2) 09/17/16 09:28 Albumin 3.6 g/dL (3.5-5.0) 09/17/16 09:28 Amylase 47 U/L (30-110) 09/16/16 08:00 Lipase 63 U/L (23-300) 09/16/16 08:00 Urine Color Yellow 09/16/16 09:12 Urine Appearance Clear (Clear) 09/16/16 09:12 Urine pH 6.5 (5.0-8.0) 09/16/16 09:12 Ur Specific Reedy 1.019 (1.001-1.035) 09/16/16 09:12 Urine Protein Negative (Negative) 09/16/16 09:12 Urine Glucose (UA) 4+ (Negative) H 09/16/16 09:12 Urine Ketones Trace (Negative) H 09/16/16 09:12 Urine Blood Negative (Negative) 09/16/16 09:12 Urine Nitrite Negative (Negative) 09/16/16 09:12 Urine Bilirubin Negative (Negative) 09/16/16 09:12 Urine Urobilinogen <2.0 mg/dL (<2.0) 09/16/16 09:12 Ur Leukocyte Esterase Negative (Negative) 09/16/16 09:12 Acetone, Qual Positive (Negative) 09/16/16 08:00 Rheumatoid Factor <9 IU/mL (<12) 09/16/16 08:00 c-ANCA <1:20 Titer (<1:20) 09/16/16 08:00 p-ANCA <1:20 Titer (<1:20) 09/16/16 08:00 Microbiology 09/16/16 08:00 Blood Blood Culture - Preliminary No Growth after 48 hours 09/16/16 21:45 Urine,Voided Urine Culture - Final 09/16/16 21:15 Blood Blood Culture - Preliminary No Growth after 24 hours Assessment and Plan (1) Small bowel obstruction Narrative/Plan: 56-year-old woman presents to emergency center with significant abdominal pain who was found to have evidence of a small bowel obstruction has been seen by surgery. Plans for NG tube placement and monitoring. Pain control appears to be adequate at this time. She also had what appears to be diabetic ketoacidosis his admission there is no much improved and is on a reducing insulin drip. Also receiving fluids. Does have a history of ESBL E. coli urinary tract infection. Of note because of her symptoms on admission ,imaging was performed showing the difficulty of the small bowel obstruction, however imaging of the chest showed evidence of 2 cavitary lung lesions with the largest being 1.4 x 1.2 cm in the right midlung. Concern from the radiologist would be to underlying septic pulmonary emboli versus metastasis with her history of renal cell carcinoma. At this time workup for endocarditis will be performed with multiple blood cultures and echocardiogram have been ordered. Pulmonology will be looking for possible vasculitis as etiology of the pulmonary process. She does not appear to have a urinary tract infection at this time. After blood cultures have been drawn antibiotic therapy with Zosyn has been requested but workup is in process. Cultures are negative so far. Would not alter antibiotic therapy until after the surgical intervention tomorrow. Status: Acute (2) DKA (diabetic ketoacidoses) Status: Acute (3) History of renal cell carcinoma Status: Acute (4) Cavitary lesion of lung Status: Acute
[2016-09-18 23:05] LABS: Glucose,Whole Blood 219 mg/dL (75-99)
[2016-09-19] MEDS ORDERED: LACTATED RINGERS 1,000 ML IV ONE ×4 (00:22→23:06)
[2016-09-19] MEDS: SODIUM CHLORIDE 0.9% 1,000 ML IV SCH (00:39)
[2016-09-19] MEDS: HYDROmorphone 1 MG/ML 1 ML SYRINGE IV PRN ×6 (00:39→18:06)
[2016-09-19] MEDS: PIPERACILLIN-TAZOBACTAM 3.375 GM in DEXTROSE/WATER 1 50ML.BAG IVPB SCH ×3 (00:54→16:35)
[2016-09-19] MEDS: ONDANSETRON 4 MG/2 ML VIAL IVP PRN ×3 (00:58→14:56)
[2016-09-19 00:59] LABS: Glucose,Whole Blood 177 mg/dL (75-99)
[2016-09-19 02:56] LABS: Glucose,Whole Blood 188 mg/dL (75-99)
[2016-09-19] MEDS: LEVOTHYROXINE 100 MCG TAB PO SCH (04:57)
[2016-09-19 05:05] LABS: Glucose,Whole Blood 184 mg/dL (75-99)
[2016-09-19] MEDS ORDERED: SODIUM CHLORIDE 0.9% 2,000 ML IV ONE (06:08)
--- NOTE | 2016-09-19 06:10 | P.HPADDEND ---
H&P Addendum H&P Addendum Date: 09/19/16 The patient presents with previous history of small bowel obstruction. Despite hospitalization, her abdominal pain continues. She has not been able to pass flatus in several days despite nasogastric tube decompression. Surgical intervention with open exploratory laparotomy and possible bowel section was reviewed. We'll continue with nasogastric tube postop. In the interim, IV fluid hydration for dehydration.
[2016-09-19 07:07] LABS: Basophils % (A) 0 %; CHCM 32.4; Eosinophils # (A) 0.1 k/uL (0-0.7); Eosinophils % (A) 1 %; HCT 34.3 % (34.0-46.0); HDW 2.89; HGB 11.5 gm/dL (11.4-16.0); Luc % (Auto) 2; Lymphocytes # (A) 1.5 k/uL (1.0-4.8); Lymphocytes % (A) 27 %; MCH 29.2 pg (25.0-35.0); MCHC 33.5 g/dL (31.0-37.0); MCV 87.1 fL (80.0-100.0); Mean Platelet Volume 6.8; Monocytes # (A) 0.3 k/uL (0-1.0); Monocytes % (A) 5 %; Neutrophils # (A) 3.7 k/uL (1.3-7.7); Neutrophils % (A) 65 %; RBC 3.94 m/uL (3.80-5.40); RDW 13.9 % (11.5-15.5); WBC 5.6 k/uL (3.8-10.6)
[2016-09-19 07:18] LABS: ALT 24 U/L (9-52); AST 12 U/L (14-36); Alkaline Phosphatase 87 U/L (38-126); Anion Gap 12 mmol/L; Blood Urea Nitrogen 9 mg/dL (7-17); Calcium 8.9 mg/dL (8.4-10.2); Carbon Dioxide 24 mmol/L (22-30); Chloride 106 mmol/L (98-107); Glucose 157 mg/dL (74-99); Non-African American GFR(MDRD) >60 (>60 ml/min/1.73 sqM); Potassium 3.6 mmol/L (3.5-5.1); Sodium 142 mmol/L (137-145); Total Bilirubin 0.4 mg/dL (0.2-1.3); Total Protein 5.8 g/dL (6.3-8.2)
[2016-09-19] MEDS: HEPARIN SODIUM,PORCINE 5,000 UNIT/ML 1 ML VIAL SQ SCH (07:23)
[2016-09-19] MEDS: NICOTINE 21MG/24HR PATCH TRANSDERM SCH (07:23)
[2016-09-19] MEDS: PANTOPRAZOLE 40 MG/10 ML VIAL IVP SCH (07:23)
[2016-09-19 07:24] LABS: Glucose,Whole Blood 161 mg/dL (75-99)
[2016-09-19] MEDS: VENLAFAXINE HCL ER 150 MG CAP PO SCH (07:24)
[2016-09-19] MEDS: INSULIN LISPRO (humaLOG) 300 UNIT/3 ML VIAL SQ SCH ×3 (07:26→17:14)
[2016-09-19 09:03] LABS: Glucose,Whole Blood 141 mg/dL (75-99)
--- NOTE | 2016-09-19 09:29 | P.PN ---
Subjective Date of service 09/19/2016. Progress note being dictated for Dr. Hill. Interval history: This is a 56-year-old female admitted with small bowel obstruction and multiple other medical issues. Maintained on IV fluid hydration , NG tube for decompression, Zosyn, insulin drip. Persistent abdominal pain, mildly improved currently rating it at a" 6 ". Passing flatus this morning. No bowel movements. Yesterday abdominal x-ray repeated, reporting consistent small bowel obstruction versus ileus, scheduled for surgery this afternoon. Denies chest pain, palpitations or increased shortness of breath. Afebrile. Review of systems: HEENT: Denies headache or focal deficits. Denies any dizziness or lightheadedness. Respiratory: Denies any increased shortness of breath. Cardiac: Denies any chest pain, palpitations. GI: Denies any nausea, vomiting, or diarrhea. Complains of decreasing abdominal pain as mentioned above. : Denies any dysuria. Psychiatry: Denies any anxiety or depression. Active Medications Generic Name Dose Route Start Last Admin Trade Name Freq PRN Reason Stop Dose Admin Clonidine 0.1 mg 09/16/16 21:00 09/18/16 20:04 Catapres PO 0.1 mg HS [facility] Administration Heparin Sodium (Porcine) 5,000 unit 09/16/16 21:00 09/19/16 07:23 Heparin SQ Not Given Q12HR [facility] Hydromorphone HCl 0.5 mg 09/16/16 11:22 09/19/16 07:42 Dilaudid IV 0.5 mg Q3HR PRN Administration Severe Pain Sodium Chloride 1,000 mls @ 75 mls/hr 09/16/16 16:30 09/19/16 00:39 Saline 0.9% IV 75 mls/hr .[id number] [facility] Administration Insulin Human Regular 100 unit 101 mls @ 0 mls/hr 09/16/16 17:00 09/19/16 04: 50 / Sodium Chloride IV 1.48 units/hr .Q0M [facility] 1.5 mls/hr Protocol Titration Titrate Piperacillin/Tazobactam/ 50 mls @ 12.5 mls/hr 09/17/16 00:00 09/19/16 07:44 Dextrose 3.375 gm/ IV Solution IVPB 12.5 mls/hr Q8HR [facility] Administration Insulin Human Lispro 8 unit 09/16/16 17:30 09/19/16 07:26 Humalog SQ Not Given AC-TID [facility] Levothyroxine Sodium 200 mcg 09/17/16 06:30 09/19/16 04:57 Synthroid PO 200 mcg DAILY@0630 [facility] Administration Miscellaneous Information 1 each 09/16/16 13:24 Magnesium Per Protocol MISCELLANE DAILY PRN Per Protocol Protocol Miscellaneous Information 1 each 09/16/16 13:24 Potassium Per Protocol MISCELLANE DAILY PRN Per Protocol Naloxone HCl 0.2 mg 09/16/16 11:22 Narcan IV Q2M PRN Opioid Reversal Nicotine 1 patch 09/18/16 11:00 09/19/16 07:23 Habitrol 21mg/24hr Patch TRANSDERM 1 patch DAILY [facility] Administration Ondansetron HCl 4 mg 09/16/16 11:22 09/19/16 08:35 Zofran IVP 4 mg Q8HR PRN Administration Nausea And Vomiting Pantoprazole Sodium 40 mg 09/18/16 09:30 09/19/16 07:23 Protonix IVP 40 mg BID [facility] Administration Temazepam 15 mg 09/17/16 16:57 09/17/16 21:17 Restoril PO 15 mg HS PRN Administration Insomnia Venlafaxine HCl 150 mg 09/17/16 09:00 09/19/16 07:24 Effexor Xr PO Not Given DAILY [facility] Objective - Vital Signs Vital signs: Vital Signs Temp 98.3 F 09/19/16 07:19 Pulse 102 H 09/19/16 07:19 Resp 16 09/19/16 07:19 BP 143/75 09/19/16 07:19 Pulse Ox 96 09/19/16 07:19 Intake & Output 09/18/16 09/19/16 09/19/16 18:59 06:59 18:59 Intake Total 14.408 953.223 Output Total 300 150 Balance -285.592 803.223 Intake: Intake, IV Titration 14.408 593.223 Amount Insulin Regular 100 unit 14.408 18.223 In Sodium Chloride 0.9% 100 ml @ Titrate IV .Q0M [facility] Rx#:[id number] Piperacillin-Tazobactam 3 50 .375 gm In Dextrose/Water 1 50ml.bag @ 12.5 mls/hr IVPB Q8HR [facility] Rx#: [id number] Sodium Chloride 0.9% 1, 525 000 ml @ 75 mls/hr IV . [id number] [facility] Rx#:[id number] Oral 360 Output: Gastric Drainage 150 Urine 300 Other: Voiding Method Bedside Commode Bedside Commode # Voids 3 - Exam PHYSICAL EXAM: VITAL SIGNS: As above GENERAL: [Lying in bed, no acute distress] HEENT: [Pupils equal conjunctiva normal. NG tube present] NECK: [Supple, no JVD] RESPIRATORY EFFORT:[Normal] LUNGS: [Essentially clear, bilateral bases diminished, no rhonchi, wheezing or crackles] CARDIOVASCULAR[regular S1-S2, no murmurs rubs or gallops no edema] GI: [Abdomen softer, distended, minimally generalized diffuse tenderness, hypoactive bowel sounds. No guarding, no rigidity.] PSYCH: [Alert and oriented -3, mood and affect normal.] NEURO: [No focal deficits, moves all 4 extremities, strength and sensation grossly intact] Microbiology 09/16/16 21:15 Blood Blood Culture - Preliminary No Growth after 48 hours 09/16/16 08:00 Blood Blood Culture - Preliminary No Growth after 48 hours 09/16/16 21:45 Urine,Voided Urine Culture - Final - Labs CBC & Chem 7: 09/19/16 06:48 09/19/16 06:48 Labs: Abnormal Lab Results - Last 24 Hours (Table) 09/18/16 09/18/16 09/18/16 Range/Units 09:00 10:52 13:23 Glucose (74-99) mg/dL POC Glucose (mg/dL) 150 H 145 H 157 H (75-99) mg/dL AST (14-36) U/L Total Protein (6.3-8.2) g/dL Albumin (3.5-5.0) g/dL 09/18/16 09/18/16 09/18/16 Range/Units 15:13 17:19 18:58 Glucose (74-99) mg/dL POC Glucose (mg/dL) 133 H 135 H 163 H (75-99) mg/dL AST (14-36) U/L Total Protein (6.3-8.2) g/dL Albumin (3.5-5.0) g/dL 09/18/16 09/18/16 09/19/16 Range/Units 20:47 23:04 00:58 Glucose (74-99) mg/dL POC Glucose (mg/dL) 235 H 219 H 177 H (75-99) mg/dL AST (14-36) U/L Total Protein (6.3-8.2) g/dL Albumin (3.5-5.0) g/dL 09/19/16 09/19/16 09/19/16 Range/Units 02:53 04:50 06:48 Glucose 157 H (74-99) mg/dL POC Glucose (mg/dL) 188 H 184 H (75-99) mg/dL AST 12 L (14-36) U/L Total Protein 5.8 L (6.3-8.2) g/dL Albumin 3.2 L (3.5-5.0) g/dL 09/19/16 09/19/16 Range/Units 07:22 09:00 Glucose (74-99) mg/dL POC Glucose (mg/dL) 161 H 141 H (75-99) mg/dL AST (14-36) U/L Total Protein (6.3-8.2) g/dL Albumin (3.5-5.0) g/dL Microbiology - Last 24 Hours (Table) 09/16/16 21:15 Blood Culture - Preliminary Blood No Growth after 48 hours 09/16/16 21:45 Urine Culture - Final Urine,Voided Assessment and Plan Plan: 1. [Small bowel obstruction, possibly partial, possible ileus]. 2. [Sepsis of undetermined etiology with possible septic emboli with cavitary lesions in bilateral lung]. 3. [Diabetes mellitus type 2, uncontrolled without evidence of DKA, on insulin drip]. Hemoglobin A1c 14 4. [Possible starvation ketoacidosis secondary to vomiting]. 5. [Increased d-dimer without evidence of pulmonary embolism]. 6. [History of intermittent chronic asthma, COPD]. 7. [History of CVA, TIA]. 8. Gastroesophageal reflux disease 9. Hypertension 10. Hyperlipidemia 11. CAD, history of MO 12. Hypothyroidism 13. History of left kidney cancer with partial nephrectomy 14. Peripheral neuropathy secondary to diabetes mellitus II 15. Chronic back pain with degenerative joint disease 16. History of ESBL 17. History of anxiety and depression 18. continued ongoing nicotine dependence 19. History of THC. Plan: Continue on current medication regime, GI and DVT prophylaxis, broad spectrum antibiotics, monitoring and symptomatic treatment. Maintain IV fluid hydration. Pending Surgery today .Follow blood cultures closely. Antibiotics as per infectious disease. Maintain insulin drip with close monitoring of Accu -Cheks. Follow closely with surgery. Smoking cessation readdressed .Further recommendations to follow. Prognosis guarded given multiple complex medical issues. The impression and plan of care has been dictated as directed. .: I performed a H&P examination of this patient and discussed the same with the dictator. I agree with the dictator's note. Any additional findings/opinions/ etc. will be noted.
[2016-09-19 11:19] LABS: Glucose,Whole Blood 114 mg/dL (75-99)
[2016-09-19 12:32] LABS: Glucose,Whole Blood 160 mg/dL (75-99)
[2016-09-19 13:44] LABS: Glucose,Whole Blood 148 mg/dL (75-99)
[2016-09-19 15:01] LABS: Glucose,Whole Blood 157 mg/dL (75-99)
[2016-09-19 17:17] LABS: Glucose,Whole Blood 142 mg/dL (75-99)
--- NOTE | 2016-09-19 18:06 | P.PN ---
Subjective This is a 56-year-old female patient with a previous history of renal cell carcinoma status post partial nephrectomy approximately 10 years ago, along with previous history of cholecystectomy, presented to the burst department with a few days history of abdominal pain and distention. The patient was mario alberto yet she hasn't had any bowel movements over the past 24-48 hours. In addition, over the past 24 hours the patient had multiple episodes of emesis. Denied having any bright red blood per rectum. No melena. No hematochezia. The patient came into the burst department for that reason and as part of further investigation a CAT scan of the chest abdomen and pelvis was done. A CAT scan of the abdomen and pelvis showed evidence of small bowel obstruction without a definitive transition point. There was evidence of a granuloma in the left lower lobe. There is also evidence of partial left nephrectomy with a stable left sided renal calculus which may be an early staghorn calculus. There was evidence of a ventral hernia containing fat only. There was evidence of bilateral lysis at the level of L5 spine and moderate degenerative changes in the spine. The CAT scan of the chest however showed multifocal areas of moderate infiltrates bilaterally predominantly in the upper lobe and 2 of these lesions were essentially cavitating and the largest measuring 1.4 x 1.2 cm in size on the right. This raises the suspicion for metastatic emboli versus septic emboli versus metastatic cancer. Clinically, the patient denies having any respiratory difficulties. No cough or sputum production. No chest tightness. No wheezing. No hemoptysis. In addition, she denies having any fever. Most of any endocarditis or valvular heart disease. No history of any cardiac problems. The patient was treated in the past for a gram-negative urine checked infection with E. coli and she had a PICC line inserted that was subsequently removed after the completion of IV antibiotics which included IV Invanz treatment. This was essentially during a hospitalization back in April 2016 and this was done under the supervision of Dr. Mills. The echocardiogram from that time in April 2016 showed no significant abnormalities and the patient ejection fraction was around 55% with some segmental wall motion abnormalities especially in the basal and inferior wall of the myocardium. The valves were all essentially within normal limits. Currently, the patient has no leukocytosis, she is afebrile, she has no hypotension and she is on 2 L of oxygen nasal cannula and her pulse ox is 98% On 09/17/2016 the patient is being seen in follow-up. She was hospitalized yesterday for a bowel obstruction and subsequently she was found to have bilateral pulmonary nodules that discussed earlier. There is a suspicion for septic versus malignant cancerous pulmonary emboli. In any rate, the patient was still having some abdominal distention and nausea and emesis and earlier this morning and NG tube was inserted and total of 400 mL of gastric juice was aspirated. She has having bowel movements still and she is not completely obstructed and I suspect she has a partial small bowel obstruction. She has adequate bowel sounds. No respiratory difficulties. No fever or chills. Blood cultures were sent and the results are still pending for now. Echocardiogram was also done and the results are still pending for now. No respiratory difficulties whatsoever. On 09/19/2016 the patient remains on a surgical floor. The patient still has an NG tube in place. Doppler was considerably high. Abdomen remains somewhat distended and the patient will be taken to the operating room for an explanation. The patient is dry heaving and she is quite nauseated. No cough. No sputum production. No chest that is. No wheezing. Would consider been negative. Echocardiogram shows no evidence of endocarditis. Objective - Vital Signs Vital signs: Vital Signs Temp 98.5 F 09/19/16 16:00 Pulse 88 09/19/16 16:00 Resp 16 09/19/16 16:00 BP 154/76 09/19/16 16:00 Pulse Ox 98 09/19/16 16:00 Intake & Output 09/18/16 09/19/16 09/19/16 18:59 06:59 18:59 Intake Total 14.408 956.223 6 Output Total 273 424 7764 Balance -285.592 806.223 -1406 Weight 61 kg Intake: Intake, IV Titration 14.408 596.223 6 Amount Insulin Regular 100 unit 14.408 21.223 6 In Sodium Chloride 0.9% 100 ml @ Titrate IV .Q0M [facility] Rx#:[id number] Piperacillin-Tazobactam 3 50 .375 gm In Dextrose/Water 1 50ml.bag @ 12.5 mls/hr IVPB Q8HR [facility] Rx#: [id number] Sodium Chloride 0.9% 1, 525 000 ml @ 75 mls/hr IV . [id number] [facility] Rx#:[id number] Oral 360 Output: Gastric Drainage 150 200 Urine 300 1200 Stool 12 Other: Voiding Method Bedside Commode Bedside Commode Bedside Commode # Voids 3 3 # Bowel Movements 1 - Exam Head exam was generally normal. The patient has an NG tube in place. There was no scleral icterus or corneal arcus. Mucous membranes were moist.Neck was supple and without jugular venous distension, thyromegaly, or carotid bruits. Carotids were easily palpable bilaterally. There was no adenopathy.Lungs were clear to auscultation and percussion, and with normal diaphragmatic excursion. No wheezes or rales were noted. Cardiac exam revealed the PMI to be normally situated and sized. The rhythm was regular and no extrasystoles were noted during several minutes of auscultation. The first and second heart sounds were normal and physiologic splitting of the second heart sound was noted. There were no murmurs, rubs, clicks, or gallops. Abdomen is slightly distended. There is no direct tenderness. There is no rebound tenderness. There is no guarding. Bowel sounds are hypoactive at the present. No ascites.Examination of the extremities revealed easily palpable radial, femoral and pedal pulses. There was no cyanosis, clubbing or edema. - Labs CBC & Chem 7: 09/19/16 06:48 09/19/16 06:48 Labs: Abnormal Lab Results - Last 24 Hours (Table) 09/18/16 09/18/16 09/18/16 Range/Units 18:58 20:47 23:04 Glucose (74-99) mg/dL POC Glucose (mg/dL) 163 H 235 H 219 H (75-99) mg/dL AST (14-36) U/L Total Protein (6.3-8.2) g/dL Albumin (3.5-5.0) g/dL 09/19/16 09/19/16 09/19/16 Range/Units 00:58 02:53 04:50 Glucose (74-99) mg/dL POC Glucose (mg/dL) 177 H 188 H 184 H (75-99) mg/dL AST (14-36) U/L Total Protein (6.3-8.2) g/dL Albumin (3.5-5.0) g/dL 04/06/17 04/06/17 04/06/17 Range/Units 06:48 07:22 09:00 Glucose 157 H (74-99) mg/dL POC Glucose (mg/dL) 161 H 141 H (75-99) mg/dL AST 12 L (14-36) U/L Total Protein 5.8 L (6.3-8.2) g/dL Albumin 3.2 L (3.5-5.0) g/dL 09/19/16 09/19/16 09/19/16 Range/Units 11:12 12:29 13:40 Glucose (74-99) mg/dL POC Glucose (mg/dL) 114 H 160 H 148 H (75-99) mg/dL AST (14-36) U/L Total Protein (6.3-8.2) g/dL Albumin (3.5-5.0) g/dL 09/19/16 09/19/16 Range/Units 14:57 16:56 Glucose (74-99) mg/dL POC Glucose (mg/dL) 157 H 142 H (75-99) mg/dL AST (14-36) U/L Total Protein (6.3-8.2) g/dL Albumin (3.5-5.0) g/dL Microbiology - Last 24 Hours (Table) 09/16/16 21:15 Blood Culture - Preliminary Blood No Growth after 48 hours Assessment and Plan Plan: Assessment 1 bilateral pulmonary lesions with 2 a cavitating disease involving the right lung, largest being 1.4 cm in size. Rule out metastatic poorly lesions with early cavitation, rule out septic emboli. Tuberculosis felt to be less likely. Other necrotizing pneumonia are felt to be less likely specially the patient is not acting septic at all. Vasculitis is also less likely taken in account the patient's clinical circumstances. Note that a CAT scan of the chest that was done back in April 2016 showed no abnormalities in the upper lobes. On 09/17/2016, the workup is in progress. Results of the blood culture on echocardiogram are still pending for now. Meanwhile vasculitis workup is also been sent. On 09/19/2016, there is no clear evidence of any septic emboli to the lungs. Echocardiogram was negative. Blood cultures of been negative. 2 renal cell carcinoma status post partial nephrectomy on the left 3 small bowel obstruction, awaiting surgical exploration 4 COPD 5 coronary artery disease 6 history of recent urine checked infection force the patient was hospitalized back in April 2016 and the patient was found to have an ESBL producing E. coli requiring inpatient and then outpatient IV antibiotics utilizing a PICC line and IV Invanz 7 previous myocardial infarction 8 peripheral neuropathy 9 hypertension 10 restless leg syndrome 11 COPD 12 chronic back pain. 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 Keep NG tube in place. We'll follow. Keep IV fluids. Will follow.
[2016-09-19] MEDS: fentaNYL (PF) 50 MCG/ML 2 ML AMP IV ONE ×2 (20:04→20:25)
[2016-09-19] MEDS: MIDAZOLAM 2 MG/2 ML VIAL IV ONE ×2 (20:05→20:25)
--- NOTE | 2016-09-19 20:23 | PN ---
DATE OF SERVICE: 09/19/2016 56-year-old woman was admitted with features of small bowel obstruction and multiple other complex medical issues. Also the patient has NG tube. I have seen and evaluated the patient with the nurse practitioner. Please refer to the nurse practitioner's notes and impression documented as a scribe for further information. Surgery is planning possible laparotomy and surgery today. Guarded prognosis. Further recommendations to follow.
[2016-09-19] MEDS ORDERED: fentaNYL (PF) 50 MCG/ML 2 ML AMP ONE (20:36)
[2016-09-19] MEDS ORDERED: SUCCINYLCHOLINE CHLORIDE 100 MG/5 ML SYR IV ONE (20:36)
[2016-09-19] MEDS ORDERED: LIDOCAINE 1% INJ 10MG/ML (20 ML MDV) ONE (20:36)
[2016-09-19] MEDS ORDERED: NEOSTIGMINE 1 MG/ML 10 ML VIAL ONE (20:36)
[2016-09-19] MEDS ORDERED: PROPOFOL 10 MG/ML 20 ML VIAL IV ONE (20:36)
[2016-09-19] MEDS ORDERED: HYDROmorphone (PF) 1 MG/ML ONE (20:36)
[2016-09-19] MEDS ORDERED: SODIUM CHLORIDE 0.9% 1,000 ML IV ONE (20:36)
[2016-09-19] MEDS ORDERED: VECURONIUM 10 MG VIAL IV ONE (20:36)
[2016-09-19] MEDS ORDERED: GLYCOPYRROLATE 0.2 MG/ML 2 ML VIAL ONE (20:36)
[2016-09-19] MEDS ORDERED: PHENYLEPHRINE-0.9% NACL SYG 1 MG/10 ML SYRINGE ONE (20:36)
[2016-09-19] MEDS ORDERED: NALBUPHINE 10 MG/ML AMPUL IV PRN (20:58)
[2016-09-19] MEDS ORDERED: NALOXONE 0.4 MG/ML 1 ML VIAL IV PRN (20:58)
[2016-09-19] MEDS ORDERED: BUPIVACAIN-EPI 0.25%-1:200,000 30 ML VIAL SQ ONE (21:15)
[2016-09-19 22:18] LABS: Glucose,Whole Blood 154 mg/dL (75-99)
--- NOTE | 2016-09-19 23:20 | P.PN ---
Subjective Principal diagnosis: Nausea and emesis 56-year-old female who has a history of multiple medical troubles that includes diabetes mellitus type 2 poorly controlled over time, the history of ESBL E. coli infection with sepsis, renal cell carcinoma with left partial nephrectomy. She presents to the emergency center with approximately a day of increasing abdominal pain in the periumbilical area associated with multiple bouts of nausea and emesis. She was unable to take in food or fluids. She was at her blood sugars were becoming elevated in counseling she presented to the emergency center she had markedly elevated blood sugar, she was acetone positive , A presentation evaluations performed including imaging studies showed evidence of a small bowel obstruction. She continues been admitted and receiving fluids. Antibiotic therapy was started with concerns of her prior urine infection and abdominal infection. With concerns of sepsis the infectious diseases consultation was requested. This time the patient feels quite poorly. She has ongoing periumbilical abdominal pain that she relates as a 7 out of 10. She has relate the nausea seems to be slightly better. She did have emesis a while ago. She's been evaluated by general surgery and NG tube will be placed to see if this can improve her symptoms. Of note she's had computed tomography scan that shows evidence of new abnormalities into her chest. Concerns to cavitary pneumonia, metastatic disease, septic pulmonary emboli. Apparently is going to the operating room tonight for exploratory laparotomy Objective - Vital Signs Vital signs: Vital Signs Temp 98.5 F 09/19/16 16:00 Pulse 88 09/19/16 16:00 Resp 16 09/19/16 16:00 BP 154/76 09/19/16 16:00 Pulse Ox 98 09/19/16 16:00 Intake & Output 09/19/16 09/19/16 09/20/16 06:59 18:59 06:59 Intake Total 956.223 6 1800 Output Total 150 1412 Balance 806.223 -1406 1800 Weight 61 kg Intake: IV 1800 Intake, IV Titration 596.223 6 Amount Insulin Regular 100 unit 21.223 6 In Sodium Chloride 0.9% 100 ml @ Titrate IV .Q0M [facility] Rx#:[id number] Piperacillin-Tazobactam 3 50 .375 gm In Dextrose/Water 1 50ml.bag @ 12.5 mls/hr IVPB Q8HR [facility] Rx#: [id number] Sodium Chloride 0.9% 1, 525 000 ml @ 75 mls/hr IV . [id number] [facility] Rx#:[id number] Oral 360 Output: Gastric Drainage 150 200 Urine 1200 Stool 12 Other: Voiding Method Bedside Commode Bedside Commode # Voids 3 3 # Bowel Movements 1 - Exam HEENT: Anicteric conjunctiva are pink and moist nasal mucosa grossly intact without significant lesions, there is no thrush. Fully edentulous Neck: The neck is supple without significant lymphadenopathy or thyromegaly. Lungs: Symmetrical air entry with few expiratory wheezes no chris bronchial sounds. Heart: Regular rate and rhythm with an audible S1-S2, no S3 no S4. There is no significant murmur click or rub, PMI was nondisplaced. Abdomen: Minimally distended. Few high pitched bowel sounds, distinctly tender over the periumbilical area, and then the was not rigid and there was no rebound Extremities: The upper extremities have excellent pulses they are symmetric, no significant petechiae or telangiectasia. No splinter hemorrhages were noted. The lower extremities are free from significant edema. The peripheral pulses were 2+ and symmetric. Neuro: Awake alert oriented to person place and time. Anxious. There are no acute new gross focal sensory motor deficits. - Labs CBC & Chem 7: 09/19/16 06:48 09/19/16 06:48 Labs: Abnormal Lab Results - Last 24 Hours (Table) 09/19/16 09/19/16 09/19/16 Range/Units 00:58 02:53 04:50 Glucose (74-99) mg/dL POC Glucose (mg/dL) 177 H 188 H 184 H (75-99) mg/dL AST (14-36) U/L Total Protein (6.3-8.2) g/dL Albumin (3.5-5.0) g/dL 09/19/16 09/19/16 09/19/16 Range/Units 06:48 07:22 09:00 Glucose 157 H (74-99) mg/dL POC Glucose (mg/dL) 161 H 141 H (75-99) mg/dL AST 12 L (14-36) U/L Total Protein 5.8 L (6.3-8.2) g/dL Albumin 3.2 L (3.5-5.0) g/dL 09/19/16 09/19/16 09/19/16 Range/Units 11:12 12:29 13:40 Glucose (74-99) mg/dL POC Glucose (mg/dL) 114 H 160 H 148 H (75-99) mg/dL AST (14-36) U/L Total Protein (6.3-8.2) g/dL Albumin (3.5-5.0) g/dL 09/19/16 09/19/16 09/19/16 Range/Units 14:57 16:56 21:55 Glucose (74-99) mg/dL POC Glucose (mg/dL) 157 H 142 H 154 H (75-99) mg/dL AST (14-36) U/L Total Protein (6.3-8.2) g/dL Albumin (3.5-5.0) g/dL Microbiology - Last 24 Hours (Table) 09/16/16 21:15 Blood Culture - Preliminary Blood No Growth after 48 hours Laboratory Results WBC 5.6 k/uL (3.8-10.6) 09/19/16 06:48 RBC 3.94 m/uL (3.80-5.40) 09/19/16 06:48 Hgb 11.5 gm/dL (11.4-16.0) 09/19/16 06:48 Hct 34.3 % (34.0-46.0) 09/19/16 06:48 MCV 87.1 fL (80.0-100.0) 09/19/16 06:48 MCH 29.2 pg (25.0-35.0) 09/19/16 06:48 MCHC 33.5 g/dL (31.0-37.0) 09/19/16 06:48 RDW 13.9 % (11.5-15.5) 09/19/16 06:48 Plt Count 213 k/uL (150-450) 09/19/16 06:48 Neutrophils % 65 % 09/19/16 06:48 Lymphocytes % 27 % 09/19/16 06:48 Monocytes % 5 % 09/19/16 06:48 Eosinophils % 1 % 09/19/16 06:48 Basophils % 0 % 09/19/16 06:48 Neutrophils # 3.7 k/uL (1.3-7.7) 09/19/16 06:48 Lymphocytes # 1.5 k/uL (1.0-4.8) 09/19/16 06:48 Monocytes # 0.3 k/uL (0-1.0) 09/19/16 06:48 Eosinophils # 0.1 k/uL (0-0.7) 09/19/16 06:48 Basophils # 0.0 k/uL (0-0.2) 09/19/16 06:48 ESR 25 mm/hr (0-20) H 09/16/16 08:00 PT 10.4 sec (9.0-12.0) 09/16/16 08:00 INR 1.0 (<1.1) 09/16/16 08:00 APTT 18.6 sec (22.0-30.0) L 09/16/16 08:00 D-Dimer 13.57 mg/L FEU (<0.60) H 09/16/16 08:00 Sodium 142 mmol/L (137-145) 09/19/16 06:48 Potassium 3.6 mmol/L (3.5-5.1) 09/19/16 06:48 Chloride 106 mmol/L (98-107) 09/19/16 06:48 Carbon Dioxide 24 mmol/L (22-30) 09/19/16 06:48 Anion Gap 12 mmol/L 09/19/16 06:48 BUN 9 mg/dL (7-17) 09/19/16 06:48 Creatinine 0.60 mg/dL (0.52-1.04) 09/19/16 06:48 Est GFR (MDRD) Af Amer >60 (>60 ml/min/1.73 sqM) 09/19/16 06:48 Est GFR (MDRD) Non-Af >60 (>60 ml/min/1.73 sqM) 09/19/16 06:48 Glucose 157 mg/dL (74-99) H 09/19/16 06:48 POC Glucose (mg/dL) 154 mg/dL (75-99) H 09/19/16 21:55 POC Glu Lead Dental Assistant CAMILLE Nicolette Resendiz 09/19/16 21:[address] Glu mg/dL 367 mg/dL 09/16/16 08:51 Hemoglobin A1c 14.4 % (4.2-6.1) H 09/16/16 08:51 Plasma Lactic Acid Ab 1.1 mmol/L (0.7-2.0) 09/16/16 11:09 Calcium 8.9 mg/dL (8.4-10.2) 09/19/16 06:48 Phosphorus 4.1 mg/dL (2.5-4.5) 09/16/16 14:04 Total Bilirubin 0.4 mg/dL (0.2-1.3) 09/19/16 06:48 AST 12 U/L (14-36) L 09/19/16 06:48 ALT 24 U/L (9-52) 09/19/16 06:48 Alkaline Phosphatase 87 U/L (38-126) 09/19/16 06:48 Troponin I <0.012 ng/mL (0.000-0.034) 09/16/16 08:00 Total Protein 5.8 g/dL (6.3-8.2) L 09/19/16 06:48 Albumin 3.2 g/dL (3.5-5.0) L 09/19/16 06:48 Amylase 47 U/L (30-110) 09/16/16 08:00 Lipase 63 U/L (23-300) 09/16/16 08:00 Urine Color Yellow 09/16/16 09:12 Urine Appearance Clear (Clear) 09/16/16 09:12 Urine pH 6.5 (5.0-8.0) 09/16/16 09:12 Ur Specific [place] 1.019 (1.001-1.035) 09/16/16 09:12 Urine Protein Negative (Negative) 09/16/16 09:12 Urine Glucose (UA) 4+ (Negative) H 09/16/16 09:12 Urine Ketones Trace (Negative) H 09/16/16 09:12 Urine Blood Negative (Negative) 09/16/16 09:12 Urine Nitrite Negative (Negative) 09/16/16 09:12 Urine Bilirubin Negative (Negative) 09/16/16 09:12 Urine Urobilinogen <2.0 mg/dL (<2.0) 09/16/16 09:12 Ur Leukocyte Esterase Negative (Negative) 09/16/16 09:12 Acetone, Qual Positive (Negative) 09/16/16 08:00 Rheumatoid Factor <9 IU/mL (<12) 09/16/16 08:00 c-ANCA <1:20 Titer (<1:20) 09/16/16 08:00 p-ANCA <1:20 Titer (<1:20) 09/16/16 08:00 Blood Type A Positive 09/19/16 12:22 Blood Type Confirm A Positive 09/19/16 06:48 Blood Type Recheck CABO Indicated 09/19/16 12:22 Antibody Screen NEGATIVE 09/19/16 12:22 Spec Expiration Date 09/22/2016 - 232109/19/16 12:22 Microbiology 09/16/16 08:00 Blood Blood Culture - Preliminary No Growth after 72 hours 09/16/16 21:15 Blood Blood Culture - Preliminary No Growth after 48 hours 09/16/16 21:45 Urine,Voided Urine Culture - Final Assessment and Plan (1) Small bowel obstruction Narrative/Plan: 56-year-old woman presents to emergency center with significant abdominal pain who was found to have evidence of a small bowel obstruction has been seen by surgery. Plans for NG tube placement and monitoring. Pain control appears to be adequate at this time. She also had what appears to be diabetic ketoacidosis his admission there is no much improved and is on a reducing insulin drip. Also receiving fluids. Does have a history of ESBL E. coli urinary tract infection. Of note because of her symptoms on admission ,imaging was performed showing the difficulty of the small bowel obstruction, however imaging of the chest showed evidence of 2 cavitary lung lesions with the largest being 1.4 x 1.2 cm in the right midlung. Concern from the radiologist would be to underlying septic pulmonary emboli versus metastasis with her history of renal cell carcinoma. At this time workup for endocarditis will be performed with multiple blood cultures and echocardiogram have been ordered. Pulmonology will be looking for possible vasculitis as etiology of the pulmonary process. She does not appear to have a urinary tract infection at this time. After blood cultures have been drawn antibiotic therapy with Zosyn has been requested but workup is in process. Cultures are negative so far. Would not alter antibiotic therapy until after the surgical intervention tonight. We have further data. Status: Acute (2) DKA (diabetic ketoacidoses) Status: Acute (3) History of renal cell carcinoma Status: Acute (4) Cavitary lesion of lung Status: Acute
[2016-09-20] MEDS: BUPIVACAINE (PF) 0.5% 50 ML, HYDROmorphone 5 MG in SODIUM CHLORIDE 0.9% 198 ML EPIDURAL PRN (01:00)
[2016-09-20] MEDS ORDERED: ACETAMINOPHEN IV (For NPO) 1,000 MG in EMPTY BAG 1 BAG IVPB ONE (01:08)
--- NOTE | 2016-09-20 01:08 | P.PCN ---
Date of Procedure: 09/19/16 Preoperative Diagnosis: Small bowel obstruction, history of sepsis, history of multiple abdominal surgeries, history of intestinal adhesions Postoperative Diagnosis: Same, frozen abdomen, bowel obstruction with 6 feet of food bezoar Procedure(s) Performed: 1. Open exploratory laparotomy 2. Extensive lysis of adhesions over 3-1/2 hours. 3. Evacuation of over 6 feet of incarcerated food bezoar involving mid to distal jejunum 4. Small bowel resection, mid jejunum 5. Repair of incarcerated incisional hernia epigastrium 4 cm involving omentum 6. Abdominal washout 6 L. 7. Placement of round up and 19 CATHRYN drain via right lower quadrant Anesthesia: GETA, local (30 mL Marcaine with Epinephrine), epidural Surgeon: Piedad Nichols Estimated Blood Loss (ml): 500 Pathology: other (Food bezoar) Condition: stable Disposition: floor Operative Findings: 1. Frozen abdomen involving the mid jejunum dilated. 2. Ileum completely decompressed and without pathology. 3. Findings of hepaticojejunostomy from previous open chevron incision and common bile duct repair 4. Retained incarcerated food bezoar over 6 feet involving the jejunum via decompressive enterotomy 5. Incarcerated hernia 4 cm incision involving the epigastrium 6. Abdominal washout over 6 L normal saline. 7. CATHRYN drain along the right lower quadrant. 8. After 3-1/2-4 hours extensive lysis of adhesions and evacuation of incarcerated food bezoar, small bowel along jejunum with free flowing effluent. 9. Patient reported immediate improvement of abdominal pain in the recovery area.
[2016-09-20] MEDS ORDERED: ONDANSETRON 4 MG/2 ML VIAL IVP ONE (01:09)
[2016-09-20 01:12] LABS: Glucose,Whole Blood 199 mg/dL (75-99)
[2016-09-20] MEDS: diphenhydrAMINE 50 MG/ML 1 ML VIAL IVP PRN ×4 (01:19→22:38)
[2016-09-20] MEDS: cloNIDine HCL 0.1 MG TAB PO SCH (01:56)
[2016-09-20] MEDS: HEPARIN SODIUM,PORCINE 5,000 UNIT/ML 1 ML VIAL SQ SCH ×3 (01:56→22:05)
[2016-09-20] MEDS: SODIUM CHLORIDE 0.9% 1,000 ML IV SCH ×9 (01:56→22:08)
[2016-09-20] MEDS: PANTOPRAZOLE 40 MG/10 ML VIAL IVP SCH ×2 (01:57→14:27)
[2016-09-20] MEDS: ONDANSETRON 4 MG/2 ML VIAL IVP PRN ×3 (02:07→15:07)
[2016-09-20] MEDS: PIPERACILLIN-TAZOBACTAM 3.375 GM in DEXTROSE/WATER 1 50ML.BAG IVPB SCH ×3 (02:50→15:07)
[2016-09-20 03:36] LABS: Glucose,Whole Blood 216 mg/dL (75-99)
[2016-09-20 05:32] LABS: Glucose,Whole Blood 187 mg/dL (75-99)
[2016-09-20] MEDS: LEVOTHYROXINE 100 MCG TAB PO SCH (06:00)
--- NOTE | 2016-09-20 06:42 | PN ---
DATE OF SERVICE: 09/19/2016 This 56-year-old woman who was admitted with small bowel obstruction, possibly partial is not improving at this time. The patient slated to undergo surgery because of the continued symptoms. Seen and evaluated the patient along with the nurse practitioner. Please refer to nurse practitioner notes and impression documented for further information. Prognosis guarded. Further recommendations to follow.
[2016-09-20 07:22] LABS: Glucose,Whole Blood 128 mg/dL (75-99)
[2016-09-20] MEDS ORDERED: SODIUM CHLORIDE 0.9% 300 ML IV ONE (07:30)
[2016-09-20] MEDS ORDERED: SODIUM CHLORIDE 0.9% 2,000 ML IV ONE (07:38)
[2016-09-20] MEDS ORDERED: SCOPOLAMINE 1.5MG/72HR PATCH TRANSDERM STA (07:44)
[2016-09-20 08:21] LABS: ALT 39 U/L (9-52); AST 27 U/L (14-36); Alkaline Phosphatase 79 U/L (38-126); Anion Gap 14 mmol/L; Blood Urea Nitrogen 14 mg/dL (7-17); Calcium 8.1 mg/dL (8.4-10.2); Carbon Dioxide 19 mmol/L (22-30); Chloride 109 mmol/L (98-107); Glucose 103 mg/dL (74-99); Magnesium 1.1 mg/dL (1.6-2.3); Non-African American GFR(MDRD) >60 (>60 ml/min/1.73 sqM); Potassium 3.5 mmol/L (3.5-5.1); Sodium 142 mmol/L (137-145); Total Bilirubin 0.6 mg/dL (0.2-1.3); Total Protein 4.7 g/dL (6.3-8.2)
[2016-09-20] MEDS: INSULIN LISPRO (humaLOG) 300 UNIT/3 ML VIAL SQ SCH ×3 (08:34→18:01)
--- NOTE | 2016-09-20 08:37 | P.PN ---
Progress Note - Text [id number] Anesthesia POD 1. Status Post exploratory laparotomy, extensive lysis of adhesions, small bowel resection, etc. under general endotracheal anesthesia with an epidrual catheter placed at T10 for post surgical pain releif. VAS (2, 5) with Bupivicaine 0.1 % and Dilaudid 20 mcg / cc running at 3 cc / hr. Lower extremity strength (4/4). Minimal sedation. Site looks OK.
[2016-09-20 09:08] LABS: Basophils % (A) 0 %; CH 28.1; CHCM 31.8; Eosinophils % (A) 1 %; HCT 33.3 % (34.0-46.0); HDW 2.98; Hypochromasia Slight; Luc # (Auto) 0.06; Luc % (Auto) 1; Lymphocytes # (A) 1.2 k/uL (1.0-4.8); Lymphocytes % (A) 17 %; MCH 29.3 pg (25.0-35.0); MCHC 33.1 g/dL (31.0-37.0); MCV 88.6 fL (80.0-100.0); Mean Platelet Volume 8.9; Monocytes # (A) 0.4 k/uL (0-1.0); Monocytes % (A) 5 %; Neutrophils # (A) 5.3 k/uL (1.3-7.7); Neutrophils % (A) 76 %; RBC 3.76 m/uL (3.80-5.40); RDW 13.9 % (11.5-15.5); WBC 6.9 k/uL (3.8-10.6); WBC (Perox) 7.13
[2016-09-20 10:02] LABS: Glucose,Whole Blood 145 mg/dL (75-99)
[2016-09-20 10:26] LABS: Glucose,Whole Blood 188 mg/dL (75-99)
[2016-09-20 11:33] VITALS: BMI 23.8
[2016-09-20 12:10] LABS: Glucose,Whole Blood 309 mg/dL (75-99)
[2016-09-20] MEDS: METOCLOPRAMIDE 5 MG/ML 2 ML VIAL IVP SCH ×2 (12:14→18:04)
[2016-09-20] MEDS: NICOTINE 21MG/24HR PATCH TRANSDERM SCH (12:14)
--- NOTE | 2016-09-20 14:12 | P.PN ---
Subjective 56-year-old female being seen on rounds this morning. Currently resting in bed. Did note the systolic blood pressures in the 80s. Patient is receiving a fluid bolus. Patient states pain medication has been effective for pain control. This not passing gas no stool. Patients being treated for small bowel obstruction in a patient who has had a history of multiple abdominal surgeries with intestinal adhesions. Patient underwent on September 19 Open exploratory laparotomy 2. Extensive lysis of adhesions over 3-1/2 hours. 3. Evacuation of over 6 feet of incarcerated food bezoar involving mid to distal jejunum 4. Small bowel resection, mid jejunum 5. Repair of incarcerated incisional hernia epigastrium 4 cm involving omentum 6. Abdominal washout 6 L. 7. Placement of round up and 19 CATHRYN drain via right lower quadrant frozen abdomen, bowel obstruction with 6 feet of food bezoar Operative Findings: 1. Frozen abdomen involving the mid jejunum dilated. 2. Ileum completely decompressed and without pathology. 3. Findings of hepaticojejunostomy from previous open chevron incision and common bile duct repair 4. Retained incarcerated food bezoar over 6 feet involving the jejunum via decompressive enterotomy 5. Incarcerated hernia 4 cm incision involving the epigastrium 6. Abdominal washout over 6 L normal saline. 7. CATHRYN drain along the right lower quadrant. 8. After 3-1/2-4 hours extensive lysis of adhesions and evacuation of incarcerated food bezoar, small bowel along jejunum with free flowing effluent. 9. Patient reported immediate improvement of abdominal pain in the recovery area. Objective - Vital Signs Vital signs: Vital Signs Temp 99.1 F 09/20/16 07:00 Pulse 110 H 09/20/16 10:09 Resp 16 09/20/16 07:00 BP 101/48 09/20/16 10:09 Pulse Ox 96 09/20/16 07:00 Intake & Output 09/19/16 09/20/16 09/20/16 18:59 06:59 18:59 Intake Total 6 2817.268 3.242 Output Total 1412 460 300 Balance -1406 2357.268 -296.758 Weight 61 kg 61.2 kg 61.2 kg Intake: IV 2800 Intake, IV Titration 6 17.268 3.242 Amount Insulin Regular 100 unit 6 17.268 3.242 In Sodium Chloride 0.9% 100 ml @ Titrate IV .Q0M [facility] Rx#:[id number] Output: Gastric Drainage 200 250 300 Drainage 210 Abdomen 210 Urine 1200 Stool 12 Other: Voiding Method Bedside Commode Indwelling Catheter Indwelling Catheter # Voids 3 # Bowel Movements 1 - Exam Physical exam A 56-year-old female resting in bed pleasant cooperative oriented 3. Nasal gastric tube in place. Did note the systolic blood pressures in the 80s patient currently is receiving IV fluid bolus Lungs essentially clear with adequate air movement sats are documented 96% on room air Heart S1-S2 audible regular denying chest pain monitor sinus rhythm no ectopy no murmur Abdomen soft surgical dressing abdominal dry with a Sundar-Cortez drain in place serous drainage noted in the bulb nasal gastric tube connected to suction no stool no gas states urinating no difficulty indwelling Mccann catheter in place extremities no evidence of edema bilaterally - Labs CBC & Chem 7: 09/20/16 07:11 09/20/16 07:11 Labs: Abnormal Lab Results - Last 24 Hours (Table) 09/19/16 09/19/16 09/19/16 Range/Units 14:57 16:56 21:55 RBC (3.80-5.40) m/uL Hgb (11.4-16.0) gm/dL Hct (34.0-46.0) % Chloride (98-107) mmol/L Carbon Dioxide (22-30) mmol/L Glucose (74-99) mg/dL POC Glucose (mg/dL) 157 H 142 H 154 H (75-99) mg/dL Calcium (8.4-10.2) mg/dL Magnesium (1.6-2.3) mg/dL Total Protein (6.3-8.2) g/dL Albumin (3.5-5.0) g/dL 09/20/16 09/20/16 09/20/16 Range/Units 01:10 03:15 05:01 RBC (3.80-5.40) m/uL Hgb (11.4-16.0) gm/dL Hct (34.0-46.0) % Chloride (98-107) mmol/L Carbon Dioxide (22-30) mmol/L Glucose (74-99) mg/dL POC Glucose (mg/dL) 199 H 216 H 187 H (75-99) mg/dL Calcium (8.4-10.2) mg/dL Magnesium (1.6-2.3) mg/dL Total Protein (6.3-8.2) g/dL Albumin (3.5-5.0) g/dL 09/20/16 09/20/16 09/20/16 Range/Units 07:04 07:11 07:11 RBC 3.76 L (3.80-5.40) m/uL Hgb 11.0 L (11.4-16.0) gm/dL Hct 33.3 L (34.0-46.0) % Chloride 109 H (98-107) mmol/L Carbon Dioxide 19 L (22-30) mmol/L Glucose 103 H (74-99) mg/dL POC Glucose (mg/dL) 128 H (75-99) mg/dL Calcium 8.1 L (8.4-10.2) mg/dL Magnesium 1.1 L (1.6-2.3) mg/dL Total Protein 4.7 L (6.3-8.2) g/dL Albumin 2.6 L (3.5-5.0) g/dL 09/20/16 09/20/16 09/20/16 Range/Units 08:18 10:05 12:08 RBC (3.80-5.40) m/uL Hgb (11.4-16.0) gm/dL Hct (34.0-46.0) % Chloride (98-107) mmol/L Carbon Dioxide (22-30) mmol/L Glucose (74-99) mg/dL POC Glucose (mg/dL) 145 H 188 H 309 H (75-99) mg/dL Calcium (8.4-10.2) mg/dL Magnesium (1.6-2.3) mg/dL Total Protein (6.3-8.2) g/dL Albumin (3.5-5.0) g/dL Microbiology - Last 24 Hours (Table) 09/16/16 21:15 Blood Culture - Preliminary Blood No Growth after 72 hours Assessment and Plan Plan: Impression Present on admission abdominal pain suspect due to a partial small bowel obstruction Chronic nicotine dependency greater than a 40 year history 1 pack a day COPD no evidence of acute exacerbation History of renal cell carcinoma CAT scan of the chest show cavitary lesion lung CAT scan of the chest bilateral pulmonary nodules Persistent abdominal nausea emesis abdominal distention relieved with a nasal gastric tube 400 mL obtained after insertion done on September 17 Echocardiogram done on September 16 left ventricular systolic function low normal with an EF between 50 and 55%. Depressive disorder nonspecified History of a prior CVA with mild residual left-sided weakness UTI in April 2016 found to have ESBL with E. coli Chronic back pain Postoperative Diagnosis: , frozen abdomen small bowel, bowel obstruction with 6 feet of food bezoar noted Procedure(s) Performed: On 09/19/2016 1. Open exploratory laparotomy 2. Extensive lysis of adhesions over 3-1/2 hours. 3. Evacuation of over 6 feet of incarcerated food bezoar involving mid to distal jejunum 4. Small bowel resection, mid jejunum 5. Repair of incarcerated incisional hernia epigastrium 4 cm involving omentum 6. Abdominal washout 6 L. 7. Placement of round up and 19 CATHRYN drain via right lower quadrant Plan Continue with the nasal gastric tube connected to suction pain control Monitor labs IV fluid for hydration DVT and GI prophylaxis Attempt to increase activity as tolerated Clear liquid diet Increase activity ambulate in [place] at least 3 times a day Continue postop surgical care Repeat labs in the morning The above dictated assessment and findings were discussed with dr Magdalena Richards and the plan of care have been dictated as directed. Shaina Dockery nurse practitioner acting as a scribe for Magdalena
[2016-09-20 14:21] LABS: Glucose,Whole Blood 283 mg/dL (75-99)
[2016-09-20] MEDS: INSULIN REGULAR 100 UNIT in SODIUM CHLORIDE 0.9% 100 ML IV SCH (16:12)
[2016-09-20 16:15] LABS: Glucose,Whole Blood 222 mg/dL (75-99)
--- NOTE | 2016-09-20 16:39 | PN ---
DATE OF SERVICE: 09/20/2016 This 56-year-old woman who was admitted with small-bowel obstruction had exploratory laparotomy, open, with lysis of adhesions and evacuation of 6 feet of incarcerated food bezoar involving the mid to distal jejunum, history of small bowel resection, repair of incarcerated incisional hernia and abdominal washout and placement of the CATHRYN drain by Dr. Nichols yesterday. Currently the patient's CATHRYN drain of abdominal pain postoperatively. Seen and evaluated the patient along with the nurse practitioner. Please refer to the nurse practitioner's notes and impressions documented as a scribe for further information. Further recommendations to follow. MTDD
--- NOTE | 2016-09-20 17:13 | P.PN ---
Subjective Date of service 09/20/2016. Progress note being dictated for Dr. Hill. Interval history: This is a 56-year-old female admitted with small bowel obstruction and multiple other medical issues. Maintained on IV fluid hydration , NG tube Zosyn, insulin drip. Yesterday underwent exploratory laparotomy, extensive lysis of adhesions, evacuation of incarcerated food bezoar, small bowel resection, repair of incarcerated incisional hernia. Tolerated procedure well. No flatus or bowel movement .Pain controlled on epidural. This morning became mildly hypotensive with systolic blood pressure decreased into the 80s, tachycardic with heart rate in the 120s, asymptomatic. Receiving a total of 2 L fluid boluses. Anesthesia evaluated epidural with rate decreased. CBC pending. Mildly febrile, 99.1. Review of systems: HEENT: Denies headache or focal deficits. Denies any dizziness or lightheadedness. Respiratory: Denies any increased shortness of breath. Cardiac: Denies any chest pain, palpitations. GI: Denies any nausea, vomiting, or diarrhea. States pain controlled on epidural. : Denies any dysuria. Psychiatry: Denies any anxiety or depression. Active Medications Diphenhydramine HCl (Benadryl) 25 mg IVP Q6HR PRN PRN Reason: Itching Last Admin: 09/20/16 16:22 Dose: 25 mg Heparin Sodium (Porcine) (Heparin) 5,000 unit SQ Q12HR [facility] Last Admin: 09/20/16 12:14 Dose: 5,000 unit Hydromorphone HCl (Dilaudid) 0.5 mg IV Q3HR PRN PRN Reason: Severe Pain Last Admin: 09/19/16 18:06 Dose: 0.5 mg Sodium Chloride (Saline 0.9%) 1,000 mls @ 150 mls/hr IV .Q6H40M [facility] Last Admin: 09/20/16 16:13 Dose: 150 mls/hr Insulin Human Regular 100 unit (/ Sodium Chloride) 101 mls @ 0 mls/hr IV .Q0M [facility]; Titrate PRN Reason: Protocol Last Admin: 09/20/16 16:12 Dose: 1 units/hr, 1.01 mls/hr Piperacillin/Tazobactam/ (Dextrose 3.375 gm/ IV Solution) 50 mls @ 12.5 mls/hr IVPB Q8HR [facility] Last Admin: 09/20/16 15:07 Dose: 12.5 mls/hr Bupivacaine HCl 50 ml/Hydromorphone HCl 5 mg/ Sodium Chloride 250.5 mls @ 0 mls /hr EPIDURAL .Q0M PRN; Protocol; Per Protocol PRN Reason: Pain Control Last Admin: 09/20/16 01:00 Dose: 0 mls Insulin Human Lispro (Humalog) 8 unit SQ AC-TID [facility] Last Admin: 09/20/16 12:12 Dose: Not Given Metoclopramide HCl (Reglan) 10 mg IVP Q6HR [facility] Last Admin: 09/20/16 12:14 Dose: 10 mg Miscellaneous Information (Magnesium Per Protocol) 1 each MISCELLANE DAILY PRN ; Protocol PRN Reason: Per Protocol Miscellaneous Information (Potassium Per Protocol) 1 each MISCELLANE DAILY PRN PRN Reason: Per Protocol Nalbuphine HCl (Nubain) 2.5 mg IV Q4HR PRN PRN Reason: Itching Last Admin: 09/20/16 03:07 Dose: 2.5 mg Naloxone HCl (Narcan) 0.2 mg IV Q2M PRN PRN Reason: Opioid Reversal Nicotine (Habitrol 21mg/24hr Patch) 1 patch TRANSDERM DAILY [facility] Last Admin: 09/20/16 12:14 Dose: 1 patch Ondansetron HCl (Zofran) 4 mg IVP Q6HR PRN PRN Reason: Nausea And Vomiting Last Admin: 09/20/16 15:07 Dose: 4 mg Pantoprazole Sodium (Protonix) 40 mg PO AC-BID [facility] Objective - Vital Signs Vital signs: Vital Signs Temp 99.1 F 09/20/16 07:00 Pulse 126 H 09/20/16 07:00 Resp 16 09/20/16 07:00 BP 84/46 09/20/16 07:00 Pulse Ox 96 09/20/16 07:00 Intake & Output 09/19/16 09/20/16 09/20/16 18:59 06:59 18:59 Intake Total 6 2817.268 2.167 Output Total 1412 460 Balance -1406 2357.268 2.167 Weight 61 kg 61.2 kg Intake: IV 2800 Intake, IV Titration 6 .268 2.167 Amount Insulin Regular 100 unit 6 .268 2.167 In Sodium Chloride 0.9% 100 ml @ Titrate IV .Q0M [facility] Rx#:[id number] Output: Gastric Drainage 200 250 Drainage 210 Abdomen 210 Urine 1200 Stool 12 Other: Voiding Method Bedside Commode Indwelling Catheter Indwelling Catheter # Voids 3 # Bowel Movements 1 - Exam PHYSICAL EXAM: VITAL SIGNS: As above GENERAL: [Lying in bed, no acute distress] HEENT: [Pupils equal conjunctiva normal. NG tube present] NECK: [Supple, no JVD] RESPIRATORY EFFORT:[Normal] LUNGS: [Essentially clear, bilateral bases diminished, no rhonchi, wheezing or crackles] CARDIOVASCULAR[regular S1-S2, no murmurs rubs or gallops no edema] GI: [Abdomen soft, status post surgery, dressing clean dry and intact, CATHRYN present with serous drainage,hypoactive bowel sounds..] PSYCH: [Alert and oriented -3, mood and affect normal. NEURO: [No focal deficits, moves all 4 extremities, strength and sensation grossly intact] Microbiology 09/16/16 21:15 Blood Blood Culture - Preliminary No Growth after 48 hours 09/16/16 08:00 Blood Blood Culture - Preliminary No Growth after 48 hours 09/16/16 21:45 Urine,Voided Urine Culture - Final - Labs CBC & Chem 7: 09/20/16 07:11 09/20/16 07:11 Labs: Abnormal Lab Results - Last 24 Hours (Table) 09/19/16 09/19/16 09/19/16 Range/Units 11:12 12:29 13:40 RBC (3.80-5.40) m/uL Hgb (11.4-16.0) gm/dL Hct (34.0-46.0) % Chloride (98-107) mmol/L Carbon Dioxide (22-30) mmol/L Glucose (74-99) mg/dL POC Glucose (mg/dL) 114 H 160 H 148 H (75-99) mg/dL Calcium (8.4-10.2) mg/dL Magnesium (1.6-2.3) mg/dL Total Protein (6.3-8.2) g/dL Albumin (3.5-5.0) g/dL 09/19/16 09/19/16 09/19/16 Range/Units 14:57 16:56 21:55 RBC (3.80-5.40) m/uL Hgb (11.4-16.0) gm/dL Hct (34.0-46.0) % Chloride (98-107) mmol/L Carbon Dioxide (22-30) mmol/L Glucose (74-99) mg/dL POC Glucose (mg/dL) 157 H 142 H 154 H (75-99) mg/dL Calcium (8.4-10.2) mg/dL Magnesium (1.6-2.3) mg/dL Total Protein (6.3-8.2) g/dL Albumin (3.5-5.0) g/dL 09/20/16 09/20/16 09/20/16 Range/Units 01:10 03:15 05:01 RBC (3.80-5.40) m/uL Hgb (11.4-16.0) gm/dL Hct (34.0-46.0) % Chloride (98-107) mmol/L Carbon Dioxide (22-30) mmol/L Glucose (74-99) mg/dL POC Glucose (mg/dL) 199 H 216 H 187 H (75-99) mg/dL Calcium (8.4-10.2) mg/dL Magnesium (1.6-2.3) mg/dL Total Protein (6.3-8.2) g/dL Albumin (3.5-5.0) g/dL 09/20/16 09/20/16 09/20/16 Range/Units 07:04 07:11 07:11 RBC 3.76 L (3.80-5.40) m/uL Hgb 11.0 L (11.4-16.0) gm/dL Hct 33.3 L (34.0-46.0) % Chloride 109 H (98-107) mmol/L Carbon Dioxide 19 L (22-30) mmol/L Glucose 103 H (74-99) mg/dL POC Glucose (mg/dL) 128 H (75-99) mg/dL Calcium 8.1 L (8.4-10.2) mg/dL Magnesium 1.1 L (1.6-2.3) mg/dL Total Protein 4.7 L (6.3-8.2) g/dL Albumin 2.6 L (3.5-5.0) g/dL Microbiology - Last 24 Hours (Table) 09/16/16 21:15 Blood Culture - Preliminary Blood No Growth after 72 hours Assessment and Plan Plan: 1. [Small bowel obstruction, status post exploratory laparotomy, open, with lysis of adhesions and evacuation of 6 feet of incarcerated food bezoar, repair of incarcerated incisional hernia, abdominal washout ]. 2. [Sepsis of undetermined etiology with possible septic emboli with cavitary lesions in bilateral lung]. 3. [Diabetes mellitus type 2, uncontrolled without evidence of DKA, on insulin drip]. Hemoglobin A1c 14 4. [Possible starvation ketoacidosis secondary to vomiting]. 5. [Increased d-dimer without evidence of pulmonary embolism]. 6. [History of intermittent chronic asthma, COPD]. 7. [History of CVA, TIA]. 8. Gastroesophageal reflux disease 9. Hypertension 10. Hyperlipidemia 11. CAD, history of [place] 12. Hypothyroidism 13. History of left kidney cancer with partial nephrectomy 14. Peripheral neuropathy secondary to diabetes mellitus II 15. Chronic back pain with degenerative joint disease 16. History of ESBL 17. History of anxiety and depression 18. continued ongoing nicotine dependence 19. History of THC. Plan: Continue on current medication regime, GI and DVT prophylaxis, broad spectrum antibiotics, monitoring and symptomatic treatment. CBC/labs pending. Maintain IV fluid hydration. Diet advancement as per surgery.Follow cultures closely. Antibiotics as per infectious disease. Maintain insulin drip with close monitoring of Accu-Cheks. Follow closely with surgery. Further recommendations to follow. Prognosis guarded given multiple complex medical issues. The impression and plan of care has been dictated as directed. : I performed a H&P examination of this patient and discussed the same with the dictator. I agree with the dictator's note. Any additional findings/opinions/ etc. will be noted.
[2016-09-20] MEDS: PANTOPRAZOLE 40 MG TABLET PO SCH (18:01)
[2016-09-20 18:10] LABS: Glucose,Whole Blood 184 mg/dL (75-99)
[2016-09-20 20:05] LABS: Glucose,Whole Blood 253 mg/dL (75-99)
[2016-09-20 22:30] LABS: Glucose,Whole Blood 283 mg/dL (75-99)
--- NOTE | 2016-09-20 22:30 | P.PN ---
Subjective Principal diagnosis: Nausea and emesis 56-year-old female who has a history of multiple medical troubles that includes diabetes mellitus type 2 poorly controlled over time, the history of ESBL E. coli infection with sepsis, renal cell carcinoma with left partial nephrectomy. She presents to the emergency center with approximately a day of increasing abdominal pain in the periumbilical area associated with multiple bouts of nausea and emesis. She was unable to take in food or fluids. She was at her blood sugars were becoming elevated in counseling she presented to the emergency center she had markedly elevated blood sugar, she was acetone positive , A presentation evaluations performed including imaging studies showed evidence of a small bowel obstruction. She continues been admitted and receiving fluids. Antibiotic therapy was started with concerns of her prior urine infection and abdominal infection. As noted she had worsened and now has been taken to the OR for the resection and is feeling much better today. Objective - Vital Signs Vital signs: Vital Signs Temp 97.2 F L 09/20/16 15:00 Pulse 110 H 09/20/16 16:34 Resp 18 09/20/16 15:00 BP 137/67 09/20/16 15:00 Pulse Ox 96 09/20/16 15:00 Intake & Output 09/20/16 09/20/16 09/21/16 06:59 18:59 06:59 Intake Total 2817.268 2975.529 Output Total 460 1660 Balance 2357.268 1315.529 Weight 61.2 kg 61.2 kg Intake: IV 2800 2950 Piperacillin-Tazobactam 3 50 .375 gm In Dextrose/Water 1 50ml.bag @ 12.5 mls/hr IVPB Q8HR [facility] Rx#: [id number] Sodium Chloride 0.9% 1, 600 000 ml @ 150 mls/hr IV . Q6H40M [facility] Rx#:[id number] Sodium Chloride 0.9% 2, 2000 000 ml @ 999 mls/hr IV . Q2H1M [facility] Rx#:[id number] Sodium Chloride 0.9% 300 300 ml @ 999 mls/hr IV .Q19M [facility] Rx#:[id number] Intake, IV Titration 17.268 25.529 Amount Insulin Regular 100 unit 17.268 25.529 In Sodium Chloride 0.9% 100 ml @ Titrate IV .Q0M [facility] Rx#:[id number] Output: Gastric Drainage 250 1200 Drainage 210 60 Abdomen 210 60 Urine 400 Other: Voiding Method Indwelling Catheter Indwelling Catheter - Exam HEENT: Anicteric conjunctiva are pink and moist nasal mucosa grossly intact without significant lesions, there is no thrush. Fully edentulous Neck: The neck is supple without significant lymphadenopathy or thyromegaly. Lungs: Symmetrical air entry with few expiratory wheezes no chris bronchial sounds. Heart: Regular rate and rhythm with an audible S1-S2, no S3 no S4. There is no significant murmur click or rub, PMI was nondisplaced. Abdomen: post operative abdomen with some tenderness Extremities: The upper extremities have excellent pulses they are symmetric, no significant petechiae or telangiectasia. No splinter hemorrhages were noted. The lower extremities are free from significant edema. The peripheral pulses were 2+ and symmetric. Neuro: Awake alert oriented to person place and time. Anxious. There are no acute new gross focal sensory motor deficits. - Labs CBC & Chem 7: 09/20/16 07:11 09/20/16 07:11 Labs: Abnormal Lab Results - Last 24 Hours (Table) 09/20/16 09/20/16 09/20/16 Range/Units 01:10 03:15 05:01 RBC (3.80-5.40) m/uL Hgb (11.4-16.0) gm/dL Hct (34.0-46.0) % Chloride (98-107) mmol/L Carbon Dioxide (22-30) mmol/L Glucose (74-99) mg/dL POC Glucose (mg/dL) 199 H 216 H 187 H (75-99) mg/dL Calcium (8.4-10.2) mg/dL Magnesium (1.6-2.3) mg/dL Total Protein (6.3-8.2) g/dL Albumin (3.5-5.0) g/dL 09/20/16 09/20/16 09/20/16 Range/Units 07:04 07:11 07:11 RBC 3.76 L (3.80-5.40) m/uL Hgb 11.0 L (11.4-16.0) gm/dL Hct 33.3 L (34.0-46.0) % Chloride 109 H (98-107) mmol/L Carbon Dioxide 19 L (22-30) mmol/L Glucose 103 H (74-99) mg/dL POC Glucose (mg/dL) 128 H (75-99) mg/dL Calcium 8.1 L (8.4-10.2) mg/dL Magnesium 1.1 L (1.6-2.3) mg/dL Total Protein 4.7 L (6.3-8.2) g/dL Albumin 2.6 L (3.5-5.0) g/dL 09/20/16 09/20/16 09/20/16 Range/Units 08:18 10:05 12:08 RBC (3.80-5.40) m/uL Hgb (11.4-16.0) gm/dL Hct (34.0-46.0) % Chloride (98-107) mmol/L Carbon Dioxide (22-30) mmol/L Glucose (74-99) mg/dL POC Glucose (mg/dL) 145 H 188 H 309 H (75-99) mg/dL Calcium (8.4-10.2) mg/dL Magnesium (1.6-2.3) mg/dL Total Protein (6.3-8.2) g/dL Albumin (3.5-5.0) g/dL 09/20/16 09/20/16 09/20/16 Range/Units 14:09 16:11 18:05 RBC (3.80-5.40) m/uL Hgb (11.4-16.0) gm/dL Hct (34.0-46.0) % Chloride (98-107) mmol/L Carbon Dioxide (22-30) mmol/L Glucose (74-99) mg/dL POC Glucose (mg/dL) 283 H 222 H 184 H (75-99) mg/dL Calcium (8.4-10.2) mg/dL Magnesium (1.6-2.3) mg/dL Total Protein (6.3-8.2) g/dL Albumin (3.5-5.0) g/dL 09/20/16 Range/Units 19:58 RBC (3.80-5.40) m/uL Hgb (11.4-16.0) gm/dL Hct (34.0-46.0) % Chloride (98-107) mmol/L Carbon Dioxide (22-30) mmol/L Glucose (74-99) mg/dL POC Glucose (mg/dL) 253 H (75-99) mg/dL Calcium (8.4-10.2) mg/dL Magnesium (1.6-2.3) mg/dL Total Protein (6.3-8.2) g/dL Albumin (3.5-5.0) g/dL Microbiology - Last 24 Hours (Table) 09/16/16 21:15 Blood Culture - Preliminary Blood No Growth after 72 hours Laboratory Results WBC 6.9 k/uL (3.8-10.6) 09/20/16 07:11 RBC 3.76 m/uL (3.80-5.40) L 09/20/16 07:11 Hgb 11.0 gm/dL (11.4-16.0) L 09/20/16 07:11 Hct 33.3 % (34.0-46.0) L 09/20/16 07:11 MCV 88.6 fL (80.0-100.0) 09/20/16 07:11 MCH 29.3 pg (25.0-35.0) 09/20/16 07:11 MCHC 33.1 g/dL (31.0-37.0) 09/20/16 07:11 RDW 13.9 % (11.5-15.5) 09/20/16 07:11 Plt Count 151 k/uL (150-450) 09/20/16 07:11 Neutrophils % 76 % 09/20/16 07:11 Lymphocytes % 17 % 09/20/16 07:11 Monocytes % 5 % 09/20/16 07:11 Eosinophils % 1 % 09/20/16 07:11 Basophils % 0 % 09/20/16 07:11 Neutrophils # 5.3 k/uL (1.3-7.7) 09/20/16 07:11 Lymphocytes # 1.2 k/uL (1.0-4.8) 09/20/16 07:11 Monocytes # 0.4 k/uL (0-1.0) 09/20/16 07:11 Eosinophils # 0.0 k/uL (0-0.7) 09/20/16 07:11 Basophils # 0.0 k/uL (0-0.2) 09/20/16 07:11 Hypochromasia Slight 09/20/16 07:11 ESR 25 mm/hr (0-20) H 09/16/16 08:00 PT 10.4 sec (9.0-12.0) 09/16/16 08:00 INR 1.0 (<1.1) 09/16/16 08:00 APTT 18.6 sec (22.0-30.0) L 09/16/16 08:00 D-Dimer 13.57 mg/L FEU (<0.60) H 09/16/16 08:00 Sodium 142 mmol/L (137-145) 09/20/16 07:11 Potassium 3.5 mmol/L (3.5-5.1) 09/20/16 07:11 Chloride 109 mmol/L (98-107) H 09/20/16 07:11 Carbon Dioxide 19 mmol/L (22-30) L 09/20/16 07:11 Anion Gap 14 mmol/L 09/20/16 07:11 BUN 14 mg/dL (7-17) 09/20/16 07:11 Creatinine 0.91 mg/dL (0.52-1.04) 09/20/16 07:11 Est GFR (MDRD) Af Amer >60 (>60 ml/min/1.73 sqM) 09/20/16 07:11 Est GFR (MDRD) Non-Af >60 (>60 ml/min/1.73 sqM) 09/20/16 07:11 Glucose 103 mg/dL (74-99) H 09/20/16 07:11 POC Glucose (mg/dL) 253 mg/dL (75-99) H 09/20/16 19:58 POC Glu [employer] [place] Ewa Gannon 09/20/16 19:[address] Glu mg/dL 367 mg/dL 09/16/16 08:51 Hemoglobin A1c 14.4 % (4.2-6.1) H 09/16/16 08:51 Plasma Lactic Acid Ab 1.1 mmol/L (0.7-2.0) 09/16/16 11:09 Calcium 8.1 mg/dL (8.4-10.2) L 09/20/16 07:11 Phosphorus 4.1 mg/dL (2.5-4.5) 09/16/16 14:04 Magnesium 1.1 mg/dL (1.6-2.3) L 09/20/16 07:11 Total Bilirubin 0.6 mg/dL (0.2-1.3) 09/20/16 07:11 AST 27 U/L (14-36) 09/20/16 07:11 ALT 39 U/L (9-52) 09/20/16 07:11 Alkaline Phosphatase 79 U/L (38-126) 09/20/16 07:11 Troponin I <0.012 ng/mL (0.000-0.034) 09/16/16 08:00 Total Protein 4.7 g/dL (6.3-8.2) L 09/20/16 07:11 Albumin 2.6 g/dL (3.5-5.0) L 09/20/16 07:11 Amylase 47 U/L (30-110) 09/16/16 08:00 Lipase 63 U/L (23-300) 09/16/16 08:00 Urine Color Yellow 09/16/16 09:12 Urine Appearance Clear (Clear) 09/16/16 09:12 Urine pH 6.5 (5.0-8.0) 09/16/16 09:12 Ur Specific [place] 1.019 (1.001-1.035) 09/16/16 09:12 Urine Protein Negative (Negative) 09/16/16 09:12 Urine Glucose (UA) 4+ (Negative) H 09/16/16 09:12 Urine Ketones Trace (Negative) H 09/16/16 09:12 Urine Blood Negative (Negative) 09/16/16 09:12 Urine Nitrite Negative (Negative) 09/16/16 09:12 Urine Bilirubin Negative (Negative) 09/16/16 09:12 Urine Urobilinogen <2.0 mg/dL (<2.0) 09/16/16 09:12 Ur Leukocyte Esterase Negative (Negative) 09/16/16 09:12 Acetone, Qual Positive (Negative) 09/16/16 08:00 Rheumatoid Factor <9 IU/mL (<12) 09/16/16 08:00 c-ANCA <1:20 Titer (<1:20) 09/16/16 08:00 p-ANCA <1:20 Titer (<1:20) 09/16/16 08:00 Blood Type A Positive 09/19/16 12:22 Blood Type Confirm A Positive 09/19/16 06:48 Blood Type Recheck CABO Indicated 09/19/16 12:22 Antibody Screen NEGATIVE 09/19/16 12:22 Spec Expiration Date 09/22/2016 - 232109/19/16 12:22 Microbiology 09/16/16 08:00 Blood Blood Culture - Preliminary No Growth after 96 hours 09/16/16 21:15 Blood Blood Culture - Preliminary No Growth after 72 hours 09/16/16 21:45 Urine,Voided Urine Culture - Final Assessment and Plan (1) Small bowel obstruction Narrative/Plan: 56-year-old woman presents to emergency center with significant abdominal pain who was found to have evidence of a small bowel obstruction has been seen by surgery. Plans for NG tube placement and monitoring. Pain control appears to be adequate at this time. She also had what appears to be diabetic ketoacidosis his admission there is no much improved and is on a reducing insulin drip. Also receiving fluids. Does have a history of ESBL E. coli urinary tract infection. Of note because of her symptoms on admission ,imaging was performed showing the difficulty of the small bowel obstruction, however imaging of the chest showed evidence of 2 cavitary lung lesions with the largest being 1.4 x 1.2 cm in the right midlung. Concern from the radiologist would be to underlying septic pulmonary emboli versus metastasis with her history of renal cell carcinoma. At this time workup for endocarditis will be performed with multiple blood cultures and echocardiogram have been ordered. Pulmonology will be looking for possible vasculitis as etiology of the pulmonary process. She does not appear to have a urinary tract infection at this time. Continue Zosyn for now] did well with surgery Status: Acute (2) DKA (diabetic ketoacidoses) Status: Acute (3) History of renal cell carcinoma Status: Acute (4) Cavitary lesion of lung Status: Acute
[2016-09-21 00:03] LABS: Glucose,Whole Blood 183 mg/dL (75-99)
[2016-09-21] MEDS: PIPERACILLIN-TAZOBACTAM 3.375 GM in DEXTROSE/WATER 1 50ML.BAG IVPB SCH ×4 (00:40→21:39)
[2016-09-21] MEDS: METOCLOPRAMIDE 5 MG/ML 2 ML VIAL IVP SCH ×5 (00:42→23:57)
[2016-09-21 03:30] LABS: Glucose,Whole Blood 151 mg/dL (75-99)
[2016-09-21 04:25] LABS: Glucose,Whole Blood 158 mg/dL (75-99)
[2016-09-21] MEDS: SODIUM CHLORIDE 0.9% 1,000 ML IV SCH ×3 (05:28→10:34)
[2016-09-21 06:04] LABS: Glucose,Whole Blood 133 mg/dL (75-99)
[2016-09-21 07:00] LABS: Basophils % (A) 0 %; CH 28.2; CHCM 31.5; Eosinophils # (A) 0.2 k/uL (0-0.7); Eosinophils % (A) 2 %; HCT 28.7 % (34.0-46.0); HDW 2.95; Hypochromasia Slight; Luc # (Auto) 0.15; Luc % (Auto) 2; Lymphocytes # (A) 1.2 k/uL (1.0-4.8); Lymphocytes % (A) 12 %; MCHC 31.1 g/dL (31.0-37.0); Mean Platelet Volume 7.4; Monocytes # (A) 0.5 k/uL (0-1.0); Monocytes % (A) 5 %; Neutrophils # (A) 7.8 k/uL (1.3-7.7); Neutrophils % (A) 80 %; RBC 3.19 m/uL (3.80-5.40); RDW 14.5 % (11.5-15.5); WBC 9.8 k/uL (3.8-10.6); WBC (Perox) 10.47
[2016-09-21 07:07] LABS: HGB 8.9 gm/dL (11.4-16.0)
[2016-09-21 07:26] LABS: ALT 31 U/L (9-52); AST 16 U/L (14-36); Alkaline Phosphatase 71 U/L (38-126); Anion Gap 8 mmol/L; Blood Urea Nitrogen 14 mg/dL (7-17); Carbon Dioxide 22 mmol/L (22-30); Chloride 110 mmol/L (98-107); Glucose 131 mg/dL (74-99); Non-African American GFR(MDRD) >60 (>60 ml/min/1.73 sqM); Potassium 3.1 mmol/L (3.5-5.1); Sodium 140 mmol/L (137-145); Total Bilirubin 0.3 mg/dL (0.2-1.3); Total Protein 4.4 g/dL (6.3-8.2)
[2016-09-21 08:17] LABS: Glucose,Whole Blood 172 mg/dL (75-99)
[2016-09-21] MEDS: INSULIN LISPRO (humaLOG) 300 UNIT/3 ML VIAL SQ SCH ×3 (08:56→23:55)
[2016-09-21] MEDS: diphenhydrAMINE 50 MG/ML 1 ML VIAL IVP PRN (09:30)
[2016-09-21] MEDS: NICOTINE 21MG/24HR PATCH TRANSDERM SCH (09:44)
[2016-09-21] MEDS: PANTOPRAZOLE 40 MG TABLET PO SCH (09:45)
[2016-09-21] MEDS: HEPARIN SODIUM,PORCINE 5,000 UNIT/ML 1 ML VIAL SQ SCH ×2 (09:46→21:11)
[2016-09-21] MEDS ORDERED: PANTOPRAZOLE 40 MG/10 ML VIAL IVP SCH (10:00)
[2016-09-21 10:22] LABS: Glucose,Whole Blood 196 mg/dL (75-99)
--- NOTE | 2016-09-21 11:23 | P.PN ---
Subjective Principal diagnosis: Bowel obstruction with sepsis The patient is a 56-year-old female who is status post extensive lysis of adhesions over 4-1/2 hours with bowel resection. She is postoperative day #2. She reports improvement of her abdominal pain. No passage of flatus. No bowel movements this morning. Her pain is well-controlled. She still has her epidural. Objective - Vital Signs Vital signs: Vital Signs Temp 98 F 09/21/16 07:00 Pulse 103 H 09/21/16 07:00 Resp 16 09/21/16 07:00 BP 112/55 09/21/16 07:00 Pulse Ox 94 L 09/21/16 07:00 Intake & Output 09/20/16 09/21/16 09/21/16 18:59 06:59 18:59 Intake Total 2975.529 1732.638 79.279 Output Total 1660 350 125 Balance 0503.797 1133.638 -45.721 Weight 61.2 kg 61.2 kg Intake: IV 2950 1725 Piperacillin-Tazobactam 3 50 .375 gm In Dextrose/Water 1 50ml.bag @ 12.5 mls/hr IVPB Q8HR [facility] Rx#: [id number] Sodium Chloride 0.9% 1, 600 1725 000 ml @ 150 mls/hr IV . Q6H40M [facility] Rx#:[id number] Sodium Chloride 0.9% 2, 2000 000 ml @ 999 mls/hr IV . Q2H1M [facility] Rx#:[id number] Sodium Chloride 0.9% 300 300 ml @ 999 mls/hr IV .Q19M [facility] Rx#:[id number] Intake, IV Titration 25.529 7.638 4.279 Amount Insulin Regular 100 unit 25.529 7.638 4.279 In Sodium Chloride 0.9% 100 ml @ Titrate IV .Q0M [facility] Rx#:[id number] Oral 75 Output: Gastric Drainage 1200 125 Drainage 60 22 Abdomen 60 22 Urine 400 320 Uretheral (Mccann) 320 Stool 8 Other: Voiding Method Indwelling Catheter Indwelling Catheter - Exam GENERAL: Well developed and in no acute distress. Pleasant. HEENT: No sclera icterus. Extraocular movements grossly intact. Moist buccal mucosa. Head is atraumatic, normocephalic. Hears conversational speech. No nasal drainage. Nasogastric tube present. Edentulous. NECK: Supple without lymphadenopathy. No JV distention. CHEST: Non-labored respirations and equal bilateral excursions. CARDIOVASCULAR: Regular rate and rhythm. Palpable 2+ radial pulses. ABDOMEN: Soft, minimal alexa-incisional tenderness. Dressing intact with minimal serosanguineous shadowing along the inferior portion of the incision. CATHRYN serosanguineous. MUSCULOSKELETAL: No clubbing, cyanosis or edema. NEUROLOGIC: No focal or lateralizing signs. PSYCH: Appropriate affect. Alert and oriented to person, place and time. - Labs CBC & Chem 7: 09/21/16 06:22 09/21/16 06:22 Labs: Abnormal Lab Results - Last 24 Hours (Table) 09/20/16 09/20/16 09/20/16 Range/Units 12:08 14:09 16:11 RBC (3.80-5.40) m/uL Hgb (11.4-16.0) gm/dL Hct (34.0-46.0) % Neutrophils # (1.3-7.7) k/uL Potassium (3.5-5.1) mmol/L Chloride (98-107) mmol/L Glucose (74-99) mg/dL POC Glucose (mg/dL) 309 H 283 H 222 H (75-99) mg/dL Calcium (8.4-10.2) mg/dL Total Protein (6.3-8.2) g/dL Albumin (3.5-5.0) g/dL 09/20/16 09/20/16 09/20/16 Range/Units 18:05 19:58 22:29 RBC (3.80-5.40) m/uL Hgb (11.4-16.0) gm/dL Hct (34.0-46.0) % Neutrophils # (1.3-7.7) k/uL Potassium (3.5-5.1) mmol/L Chloride (98-107) mmol/L Glucose (74-99) mg/dL POC Glucose (mg/dL) 184 H 253 H 283 H (75-99) mg/dL Calcium (8.4-10.2) mg/dL Total Protein (6.3-8.2) g/dL Albumin (3.5-5.0) g/dL 09/21/16 09/21/16 09/21/16 Range/Units 00:01 03:23 04:08 RBC (3.80-5.40) m/uL Hgb (11.4-16.0) gm/dL Hct (34.0-46.0) % Neutrophils # (1.3-7.7) k/uL Potassium (3.5-5.1) mmol/L Chloride (98-107) mmol/L Glucose (74-99) mg/dL POC Glucose (mg/dL) 183 H 151 H 158 H (75-99) mg/dL Calcium (8.4-10.2) mg/dL Total Protein (6.3-8.2) g/dL Albumin (3.5-5.0) g/dL 09/21/16 09/21/16 09/21/16 Range/Units 05:57 06:22 06:22 RBC 3.19 L (3.80-5.40) m/uL Hgb 8.9 L D (11.4-16.0) gm/dL Hct 28.7 L (34.0-46.0) % Neutrophils # 7.8 H (1.3-7.7) k/uL Potassium 3.1 L (3.5-5.1) mmol/L Chloride 110 H (98-107) mmol/L Glucose 131 H (74-99) mg/dL POC Glucose (mg/dL) 133 H (75-99) mg/dL Calcium 8.0 L (8.4-10.2) mg/dL Total Protein 4.4 L (6.3-8.2) g/dL Albumin 2.2 L (3.5-5.0) g/dL 09/21/16 09/21/16 Range/Units 08:15 10:19 RBC (3.80-5.40) m/uL Hgb (11.4-16.0) gm/dL Hct (34.0-46.0) % Neutrophils # (1.3-7.7) k/uL Potassium (3.5-5.1) mmol/L Chloride (98-107) mmol/L Glucose (74-99) mg/dL POC Glucose (mg/dL) 172 H 196 H (75-99) mg/dL Calcium (8.4-10.2) mg/dL Total Protein (6.3-8.2) g/dL Albumin (3.5-5.0) g/dL Microbiology - Last 24 Hours (Table) 09/16/16 21:15 Blood Culture - Preliminary Blood No Growth after 96 hours Assessment and Plan (1) S/P small bowel resection Status: Acute (2) Peritoneal adhesions Status: Acute (3) S/P exploratory laparotomy Status: Acute (4) Small bowel obstruction Status: Acute (5) Hypomagnesemia Status: Acute (6) Hypokalemia due to inadequate potassium intake Status: Acute (7) Inadequate dietary intake of protein Status: Acute (8) Poorly controlled type 2 diabetes mellitus Status: Acute (9) Dehydration Status: Acute (10) Gastroesophageal reflux disease Status: Acute (11) Diabetic gastroparesis Status: Acute Plan: 1. Replace magnesium. 2. Replace potassium. IV fluid adjusted to include potassium. 3. Discontinue protonix as this intact denies his magnesium metabolism and potassium. 4. Insulin sliding scale as patient is on clear liquid diet. 5. Continue NG tube until passage of flatus or bowel movement. 6. Antibiotic management per infectious disease. 7. Discontinue epidural on postop day #3 with Mccann catheter removal at that time. 8. IV fluid hydration for dehydration.
[2016-09-21 11:52] LABS: Glucose,Whole Blood 169 mg/dL (75-99)
[2016-09-21] MEDS: MAGNESIUM SULFATE-D5W PMX 1 GM in DEXTROSE/WATER 1 100ML.BAG IVPB SCH ×4 (13:30→19:48)
[2016-09-21] MEDS: 0.9% NACL WITH KCL 40 MEQ/L 1,000 ML IV SCH ×2 (13:34→22:23)
[2016-09-21 15:29] LABS: Hemoglobin A1C 13.4 % (4.2-6.1)
[2016-09-21] MEDS: SCOPOLAMINE 1.5MG/72HR PATCH TRANSDERM SCH (15:48)
[2016-09-21] MEDS: POTASSIUM CHLORIDE 20 MEQ, LIDOCAINE 2% INJ 20 MG in SODIUM CHLORIDE 0.9% 100 ML IVPB SCH ×3 (15:50→20:34)
[2016-09-21 17:58] LABS: Glucose,Whole Blood 297 mg/dL (75-99)
--- NOTE | 2016-09-21 18:26 | P.PN ---
Subjective Principal diagnosis: Nausea and emesis 56-year-old female who has a history of multiple medical troubles that includes diabetes mellitus type 2 poorly controlled over time, the history of ESBL E. coli infection with sepsis, renal cell carcinoma with left partial nephrectomy. She presents to the emergency center with approximately a day of increasing abdominal pain in the periumbilical area associated with multiple bouts of nausea and emesis. She was unable to take in food or fluids. She was at her blood sugars were becoming elevated in counseling she presented to the emergency center she had markedly elevated blood sugar, she was acetone positive , A presentation evaluations performed including imaging studies showed evidence of a small bowel obstruction. She continues been admitted and receiving fluids. Antibiotic therapy was started with concerns of her prior urine infection and abdominal infection. As noted she had worsened and now has been taken to the OR for the resection and is feeling much better today. Objective - Vital Signs Vital signs: Vital Signs Temp 98.8 F 09/21/16 15:00 Pulse 113 H 09/21/16 15:00 Resp 16 09/21/16 15:00 BP 126/89 09/21/16 15:00 Pulse Ox 94 L 09/21/16 15:00 Intake & Output 09/20/16 09/21/16 09/21/16 18:59 06:59 18:59 Intake Total 2975.529 1732.638 203.353 Output Total 1660 350 725 Balance 6793.901 7725.638 -521.647 Weight 61.2 kg 61.2 kg Intake: IV 2950 1725 Piperacillin-Tazobactam 3 50 .375 gm In Dextrose/Water 1 50ml.bag @ 12.5 mls/hr IVPB Q8HR [facility] Rx#: [id number] Sodium Chloride 0.9% 1, 600 1725 000 ml @ 150 mls/hr IV . Q6H40M [facility] Rx#:[id number] Sodium Chloride 0.9% 2, 2000 000 ml @ 999 mls/hr IV . Q2H1M ONE Rx#:[id number] Sodium Chloride 0.9% 300 300 ml @ 999 mls/hr IV .Q19M ONE Rx#:[id number] Intake, IV Titration 25.529 7.638 8.353 Amount Insulin Regular 100 unit 25.529 7.638 8.353 In Sodium Chloride 0.9% 100 ml @ Titrate IV .Q0M [facility] Rx#:[id number] Oral 195 Output: Gastric Drainage 1200 125 Drainage 60 22 Abdomen 60 22 Urine 400 320 600 Uretheral (Mccann) 320 600 Stool 8 Other: Voiding Method Indwelling Catheter Indwelling Catheter - Exam HEENT: Anicteric conjunctiva are pink and moist nasal mucosa grossly intact without significant lesions, there is no thrush. Fully edentulous Neck: The neck is supple without significant lymphadenopathy or thyromegaly. Lungs: Symmetrical air entry with few expiratory wheezes no chris bronchial sounds. Heart: Regular rate and rhythm with an audible S1-S2, no S3 no S4. There is no significant murmur click or rub, PMI was nondisplaced. Abdomen: post operative abdomen with some tenderness Extremities: The upper extremities have excellent pulses they are symmetric, no significant petechiae or telangiectasia. No splinter hemorrhages were noted. The lower extremities are free from significant edema. The peripheral pulses were 2+ and symmetric. Neuro: Awake alert oriented to person place and time. Anxious. There are no acute new gross focal sensory motor deficits. - Labs CBC & Chem 7: 09/21/16 06:22 09/21/16 06:22 Labs: Abnormal Lab Results - Last 24 Hours (Table) 09/20/16 09/20/16 09/21/16 Range/Units 19:58 22:29 00:01 RBC (3.80-5.40) m/uL Hgb (11.4-16.0) gm/dL Hct (34.0-46.0) % Neutrophils # (1.3-7.7) k/uL Potassium (3.5-5.1) mmol/L Chloride (98-107) mmol/L Glucose (74-99) mg/dL POC Glucose (mg/dL) 253 H 283 H 183 H (75-99) mg/dL Hemoglobin A1c (4.2-6.1) % Calcium (8.4-10.2) mg/dL Phosphorus (2.5-4.5) mg/dL Magnesium (1.6-2.3) mg/dL Total Protein (6.3-8.2) g/dL Albumin (3.5-5.0) g/dL 09/21/16 09/21/16 09/21/16 Range/Units 03:23 04:08 05:57 RBC (3.80-5.40) m/uL Hgb (11.4-16.0) gm/dL Hct (34.0-46.0) % Neutrophils # (1.3-7.7) k/uL Potassium (3.5-5.1) mmol/L Chloride (98-107) mmol/L Glucose (74-99) mg/dL POC Glucose (mg/dL) 151 H 158 H 133 H (75-99) mg/dL Hemoglobin A1c (4.2-6.1) % Calcium (8.4-10.2) mg/dL Phosphorus (2.5-4.5) mg/dL Magnesium (1.6-2.3) mg/dL Total Protein (6.3-8.2) g/dL Albumin (3.5-5.0) g/dL 09/21/16 09/21/16 09/21/16 Range/Units 06:22 06:22 06:22 RBC 3.19 L (3.80-5.40) m/uL Hgb 8.9 L D (11.4-16.0) gm/dL Hct 28.7 L (34.0-46.0) % Neutrophils # 7.8 H (1.3-7.7) k/uL Potassium 3.1 L (3.5-5.1) mmol/L Chloride 110 H (98-107) mmol/L Glucose 131 H (74-99) mg/dL POC Glucose (mg/dL) (75-99) mg/dL Hemoglobin A1c 13.4 H (4.2-6.1) % Calcium 8.0 L (8.4-10.2) mg/dL Phosphorus (2.5-4.5) mg/dL Magnesium (1.6-2.3) mg/dL Total Protein 4.4 L (6.3-8.2) g/dL Albumin 2.2 L (3.5-5.0) g/dL 09/21/16 09/21/16 09/21/16 Range/Units 06:22 06:22 08:15 RBC (3.80-5.40) m/uL Hgb (11.4-16.0) gm/dL Hct (34.0-46.0) % Neutrophils # (1.3-7.7) k/uL Potassium (3.5-5.1) mmol/L Chloride (98-107) mmol/L Glucose (74-99) mg/dL POC Glucose (mg/dL) 172 H (75-99) mg/dL Hemoglobin A1c (4.2-6.1) % Calcium (8.4-10.2) mg/dL Phosphorus 2.2 L (2.5-4.5) mg/dL Magnesium 1.2 L (1.6-2.3) mg/dL Total Protein (6.3-8.2) g/dL Albumin (3.5-5.0) g/dL 09/21/16 09/21/16 09/21/16 Range/Units 10:19 11:49 17:44 RBC (3.80-5.40) m/uL Hgb (11.4-16.0) gm/dL Hct (34.0-46.0) % Neutrophils # (1.3-7.7) k/uL Potassium (3.5-5.1) mmol/L Chloride (98-107) mmol/L Glucose (74-99) mg/dL POC Glucose (mg/dL) 196 H 169 H 297 H (75-99) mg/dL Hemoglobin A1c (4.2-6.1) % Calcium (8.4-10.2) mg/dL Phosphorus (2.5-4.5) mg/dL Magnesium (1.6-2.3) mg/dL Total Protein (6.3-8.2) g/dL Albumin (3.5-5.0) g/dL Microbiology - Last 24 Hours (Table) 09/16/16 21:15 Blood Culture - Preliminary Blood No Growth after 96 hours Laboratory Results WBC 9.8 k/uL (3.8-10.6) 09/21/16 06:22 RBC 3.19 m/uL (3.80-5.40) L 09/21/16 06:22 Hgb 8.9 gm/dL (11.4-16.0) L D 09/21/16 06:22 Hct 28.7 % (34.0-46.0) L 09/21/16 06:22 MCV 90.0 fL (80.0-100.0) 09/21/16 06:22 MCH 28.0 pg (25.0-35.0) 09/21/16 06:22 MCHC 31.1 g/dL (31.0-37.0) 09/21/16 06:22 RDW 14.5 % (11.5-15.5) 09/21/16 06:22 Plt Count 197 k/uL (150-450) 09/21/16 06:22 Neutrophils % 80 % 09/21/16 06:22 Lymphocytes % 12 % 09/21/16 06:22 Monocytes % 5 % 09/21/16 06:22 Eosinophils % 2 % 09/21/16 06:22 Basophils % 0 % 09/21/16 06:22 Neutrophils # 7.8 k/uL (1.3-7.7) H 09/21/16 06:22 Lymphocytes # 1.2 k/uL (1.0-4.8) 09/21/16 06:22 Monocytes # 0.5 k/uL (0-1.0) 09/21/16 06:22 Eosinophils # 0.2 k/uL (0-0.7) 09/21/16 06:22 Basophils # 0.0 k/uL (0-0.2) 09/21/16 06:22 Hypochromasia Slight 09/21/16 06:22 ESR 25 mm/hr (0-20) H 09/16/16 08:00 PT 10.4 sec (9.0-12.0) 09/16/16 08:00 INR 1.0 (<1.1) 09/16/16 08:00 APTT 18.6 sec (22.0-30.0) L 09/16/16 08:00 D-Dimer 13.57 mg/L FEU (<0.60) H 09/16/16 08:00 Sodium 140 mmol/L (137-145) 09/21/16 06:22 Potassium 3.1 mmol/L (3.5-5.1) L 09/21/16 06:22 Chloride 110 mmol/L (98-107) H 09/21/16 06:22 Carbon Dioxide 22 mmol/L (22-30) 09/21/16 06:22 Anion Gap 8 mmol/L 09/21/16 06:22 BUN 14 mg/dL (7-17) 09/21/16 06:22 Creatinine 0.76 mg/dL (0.52-1.04) 09/21/16 06:22 Est GFR (MDRD) Af Amer >60 (>60 ml/min/1.73 sqM) 09/21/16 06:22 Est GFR (MDRD) Non-Af >60 (>60 ml/min/1.73 sqM) 09/21/16 06:22 Glucose 131 mg/dL (74-99) H 09/21/16 06:22 POC Glucose (mg/dL) 297 mg/dL (75-99) H 09/21/16 17:44 POC Glu [employer] ID Ivy Jennings 09/21/16 17:[address] Glu mg/dL 338 mg/dL 09/21/16 06:22 Hemoglobin A1c 13.4 % (4.2-6.1) H 09/21/16 06:22 Plasma Lactic Acid Ab 1.1 mmol/L (0.7-2.0) 09/16/16 11:09 Calcium 8.0 mg/dL (8.4-10.2) L 09/21/16 06:22 Phosphorus 2.2 mg/dL (2.5-4.5) L 09/21/16 06:22 Magnesium 1.2 mg/dL (1.6-2.3) L 09/21/16 06:22 Total Bilirubin 0.3 mg/dL (0.2-1.3) 09/21/16 06:22 AST 16 U/L (14-36) 09/21/16 06:22 ALT 31 U/L (9-52) 09/21/16 06:22 Alkaline Phosphatase 71 U/L (38-126) 09/21/16 06:22 Troponin I <0.012 ng/mL (0.000-0.034) 09/16/16 08:00 Total Protein 4.4 g/dL (6.3-8.2) L 09/21/16 06:22 Albumin 2.2 g/dL (3.5-5.0) L 09/21/16 06:22 Amylase 47 U/L (30-110) 09/16/16 08:00 Lipase 63 U/L (23-300) 09/16/16 08:00 Urine Color Yellow 09/16/16 09:12 Urine Appearance Clear (Clear) 09/16/16 09:12 Urine pH 6.5 (5.0-8.0) 09/16/16 09:12 Ur Specific [place] 1.019 (1.001-1.035) 09/16/16 09:12 Urine Protein Negative (Negative) 09/16/16 09:12 Urine Glucose (UA) 4+ (Negative) H 09/16/16 09:12 Urine Ketones Trace (Negative) H 09/16/16 09:12 Urine Blood Negative (Negative) 09/16/16 09:12 Urine Nitrite Negative (Negative) 09/16/16 09:12 Urine Bilirubin Negative (Negative) 09/16/16 09:12 Urine Urobilinogen <2.0 mg/dL (<2.0) 09/16/16 09:12 Ur Leukocyte Esterase Negative (Negative) 09/16/16 09:12 Acetone, Qual Positive (Negative) 09/16/16 08:00 Rheumatoid Factor <9 IU/mL (<12) 09/16/16 08:00 c-ANCA <1:20 Titer (<1:20) 09/16/16 08:00 p-ANCA <1:20 Titer (<1:20) 09/16/16 08:00 Blood Type A Positive 09/19/16 12:22 Blood Type Confirm A Positive 09/19/16 06:48 Blood Type Recheck CABO Indicated 09/19/16 12:22 Antibody Screen NEGATIVE 09/19/16 12:22 Spec Expiration Date 09/22/2016232109/19/16 12:22 Microbiology 09/16/16 08:00 Blood Blood Culture - Preliminary No Growth after 120 hours 09/16/16 21:15 Blood Blood Culture - Preliminary No Growth after 96 hours 09/16/16 21:45 Urine,Voided Urine Culture - Final Assessment and Plan (1) Small bowel obstruction Narrative/Plan: 56-year-old woman presents to emergency center with significant abdominal pain who was found to have evidence of a small bowel obstruction has been seen by surgery. Plans for NG tube placement and monitoring. Pain control appears to be adequate at this time. She also had what appears to be diabetic ketoacidosis his admission there is no much improved and is on a reducing insulin drip. Also receiving fluids. Does have a history of ESBL E. coli urinary tract infection. Of note because of her symptoms on admission ,imaging was performed showing the difficulty of the small bowel obstruction, however imaging of the chest showed evidence of 2 cavitary lung lesions with the largest being 1.4 x 1.2 cm in the right midlung. Concern from the radiologist would be to underlying septic pulmonary emboli versus metastasis with her history of renal cell carcinoma. At this time workup for endocarditis will be performed with multiple blood cultures and echocardiogram have been ordered. Pulmonology will be looking for possible vasculitis as etiology of the pulmonary process. She does not appear to have a urinary tract infection at this time. Continue Zosyn for now] and is showing some improvement. did well with surgery and is having some improvement looks forward is sitting up further today. Status: Acute (2) DKA (diabetic ketoacidoses) Status: Acute (3) History of renal cell carcinoma Status: Acute (4) Cavitary lesion of lung Status: Acute
--- NOTE | 2016-09-21 18:45 | P.PN ---
Progress Note - Text 09/21 1862 56-year-old female status post exploratory lap with Dr. Nichols. We will solution running at 5 mL an hour with a VAS of 5. No motor or sensory deficits. Plan to DC epidural morning
[2016-09-21] MEDS: BUPIVACAINE (PF) 0.5% 50 ML, HYDROmorphone 5 MG in SODIUM CHLORIDE 0.9% 198 ML EPIDURAL PRN (19:04)
--- NOTE | 2016-09-21 20:25 | PN ---
DATE OF SERVICE: 09/21/2016 This 56-year-old woman who was admitted with small-bowel obstruction also had surgery. The patient is being closely monitored. The patient still has NG tube. No chest pain or palpitations. No fever. On exam, alert and oriented x3. Pulse 113, blood pressure 136/89, respirations 16, temperature 98.9, pulse ox 94% on room air. HEENT: Conjunctivae normal. NECK: No jugular venous distension. CARDIOVASCULAR: S1 and S2 muffled. RESPIRATORY: Breath sounds diminished in the bases. No rhonchi. No crackles. ABDOMEN: Soft, status post surgery. LEGS: No edema. No swelling. NERVOU SYSTEM: Nonfocal. LABS: Hemoglobin 8.9. Potassium is 3.1. Otherwise, albumin is 2.2. ASSESSMENT: 1. Small-bowel obstruction, status post exploratory laparotomy, open, with lysis of adhesions, evacuation of 6 feet incarcerated food bezoar, repair of incarcerated incisional hernia and abdominal washout. 2. Sepsis of undetermined etiology with possible septic emboli with a cavitary lesion in the bilateral lungs. 3. Diabetes mellitus type 2, uncontrolled, without any evidence for diabetic ketoacidosis, was on insulin drip. Hemoglobin A1c 14. 4. Possible starvation ketoacidosis secondary to vomiting present on admission. 5. Increased D-dimer with no evidence of pulmonary embolism. 6. History of intermittent chronic asthma, chronic obstructive pulmonary disease. 7. History of cerebrovascular accident, transient ischemic attack. 8. History of gastroesophageal reflux disease. 9. Hypertension. 10. Hyperlipidemia. 11. History of coronary artery disease. 12. History of myocardial infarction. 13. Hypothyroidism. 14. History of left kidney cancer with partial nephrectomy. 15. Peripheral neuropathy secondary to diabetes mellitus type 2. 16. Chronic back pain with degenerative joint disease. 17. History of extended-spectrum beta-lactamase Escherichia coli. 18. History of anxiety, depression. 19. History of ongoing nicotine dependence. 20. History of THC. RECOMMENDATIONS AND DISCUSSION: Recommend to continue current medications. Continue with monitoring and symptomatic treatment. Otherwise, at this time I would recommend continuing the current medications, follow closely, supplement the magnesium and potassium. Otherwise, repeat labs. Further recommendations to follow.
[2016-09-22 00:12] LABS: Glucose,Whole Blood 305 mg/dL (75-99)
[2016-09-22] MEDS: PIPERACILLIN-TAZOBACTAM 3.375 GM in DEXTROSE/WATER 1 50ML.BAG IVPB SCH ×3 (02:18→15:54)
[2016-09-22] MEDS: 0.9% NACL WITH KCL 40 MEQ/L 1,000 ML IV SCH ×4 (04:42→20:53)
[2016-09-22] MEDS: INSULIN LISPRO (humaLOG) 300 UNIT/3 ML VIAL SQ SCH ×3 (05:30→17:53)
[2016-09-22] MEDS: METOCLOPRAMIDE 5 MG/ML 2 ML VIAL IVP SCH ×3 (05:30→18:15)
[2016-09-22 05:38] LABS: Glucose,Whole Blood 223 mg/dL (75-99)
[2016-09-22] MEDS: NICOTINE 21MG/24HR PATCH TRANSDERM SCH (08:12)
[2016-09-22] MEDS: HEPARIN SODIUM,PORCINE 5,000 UNIT/ML 1 ML VIAL SQ SCH ×2 (08:13→20:44)
[2016-09-22] MEDS ORDERED: FAMOTIDINE 20 MG in SODIUM CHLORIDE 0.9% 50 ML IVPB SCH (09:00)
[2016-09-22 09:35] LABS: Basophils % (A) 0 %; CH 27.8; CHCM 30.3; Eosinophils # (A) 0.2 k/uL (0-0.7); Eosinophils % (A) 3 %; HCT 20.4 % (34.0-46.0); HDW 2.96; Hypochromasia Marked; Luc % (Auto) 2; Lymphocytes # (A) 0.7 k/uL (1.0-4.8); Lymphocytes % (A) 11 %; MCH 29.9 pg (25.0-35.0); MCHC 32.3 g/dL (31.0-37.0); MCV 92.4 fL (80.0-100.0); Mean Platelet Volume 7.8; Monocytes # (A) 0.4 k/uL (0-1.0); Monocytes % (A) 5 %; Neutrophils # (A) 5.2 k/uL (1.3-7.7); Neutrophils % (A) 79 %; RDW 14.5 % (11.5-15.5); WBC 6.6 k/uL (3.8-10.6); WBC (Perox) 6.65
[2016-09-22 09:38] LABS: HGB 6.6 gm/dL (11.4-16.0)
[2016-09-22 09:49] LABS: Polychromasia Present
[2016-09-22] MEDS ORDERED: FAMOTIDINE 20 MG in SODIUM CHLORIDE 0.9% 50 ML IVP SCH (09:50)
[2016-09-22 10:17] LABS: ALT 25 U/L (9-52); AST 11 U/L (14-36); Alkaline Phosphatase 92 U/L (38-126); Anion Gap 8 mmol/L; Blood Urea Nitrogen 8 mg/dL (7-17); Calcium 8.2 mg/dL (8.4-10.2); Carbon Dioxide 19 mmol/L (22-30); Chloride 114 mmol/L (98-107); Glucose 214 mg/dL (74-99); Magnesium 1.8 mg/dL (1.6-2.3); Non-African American GFR(MDRD) >60 (>60 ml/min/1.73 sqM); Potassium 4.6 mmol/L (3.5-5.1); Sodium 141 mmol/L (137-145); Total Bilirubin 0.4 mg/dL (0.2-1.3); Total Protein 4.7 g/dL (6.3-8.2)
--- NOTE | 2016-09-22 10:36 | P.PN ---
Subjective Principal diagnosis: Small bowel obstruction 56 years old female status post exploratory laparotomy, small bowel resection and primary anastomosis with extensive lysis of adhesion, postop day #3. No flatus or bowel movements yet. Nasogastric tube in position-dark output and no gross blood. No flatus or bowel movements yet. Epidural in place. Patient does not complain of incisional pain but states she feels tired. Objective - Vital Signs Vital signs: Vital Signs Temp 97.8 F 09/22/16 07:00 Pulse 94 09/22/16 07:00 Resp 15 09/22/16 07:00 BP 142/72 09/22/16 07:00 Pulse Ox 95 09/22/16 07:00 Intake & Output 09/21/16 09/22/16 09/22/16 18:59 06:59 18:59 Intake Total 676.856 3399 40 Output Total 850 820 Balance -033.162 3926 40 Intake: IV 650 Piperacillin-Tazobactam 3 50 .375 gm In Dextrose/Water 1 50ml.bag @ 12.5 mls/hr IVPB Q8HR [facility] Rx#: [id number] Sodium Chloride 0.9% 1, 600 000 ml @ 150 mls/hr IV . Q6H40M [facility] Rx#:[id number] Intake, IV Titration 8.353 1200 Amount 0.9% NaCl with KCl 40 Meq 1200 /l 1,000 ml @ 150 mls/hr IV .Q6H40M [facility] Rx#: [id number] Insulin Regular 100 unit 8.353 In Sodium Chloride 0.9% 100 ml @ Titrate IV .Q0M [facility] Rx#:[id number] Oral 195 40 Output: Gastric Drainage 250 50 Drainage 0 20 Abdomen 0 20 Urine 600 750 Uretheral (Mccann) 600 Other: Voiding Method Indwelling Catheter Indwelling Catheter Indwelling Catheter - Exam General: Patient is alert and oriented to time, place and person and cooperative with exam. HEENT: Pallor present, no icterus Chest: Bilateral equal breath sounds present. No wheezes, no crackles. Cardiovascular: Regular rate and rhythm. Abdomen: Mild distention present. The dressing is soaked on the lower aspect and is draining serous fluid. The inferior portion of the dressing has come off Integumentary: Bilateral pitting edema up to ankles Neurologic: Cranial nerves II-XII intact. Strength upper and lower extremities 5/5. No focal neurologic deficits. - Labs CBC & Chem 7: 09/22/16 08:26 09/22/16 09:43 Labs: Abnormal Lab Results - Last 24 Hours (Table) 09/21/16 09/21/16 09/21/16 Range/Units 06:22 06:22 06:22 RBC (3.80-5.40) m/uL Hgb (11.4-16.0) gm/dL Hct (34.0-46.0) % Plt Count (150-450) k/uL Lymphocytes # (1.0-4.8) k/uL Chloride (98-107) mmol/L Carbon Dioxide (22-30) mmol/L Glucose (74-99) mg/dL POC Glucose (mg/dL) (75-99) mg/dL Hemoglobin A1c 13.4 H (4.2-6.1) % Calcium (8.4-10.2) mg/dL Phosphorus 2.2 L (2.5-4.5) mg/dL Magnesium 1.2 L (1.6-2.3) mg/dL AST (14-36) U/L Total Protein (6.3-8.2) g/dL Albumin (3.5-5.0) g/dL 09/21/16 09/21/16 09/21/16 Range/Units 11:49 17:44 23:53 RBC (3.80-5.40) m/uL Hgb (11.4-16.0) gm/dL Hct (34.0-46.0) % Plt Count (150-450) k/uL Lymphocytes # (1.0-4.8) k/uL Chloride (98-107) mmol/L Carbon Dioxide (22-30) mmol/L Glucose (74-99) mg/dL POC Glucose (mg/dL) 169 H 297 H 305 H (75-99) mg/dL Hemoglobin A1c (4.2-6.1) % Calcium (8.4-10.2) mg/dL Phosphorus (2.5-4.5) mg/dL Magnesium (1.6-2.3) mg/dL AST (14-36) U/L Total Protein (6.3-8.2) g/dL Albumin (3.5-5.0) g/dL 09/22/16 09/22/16 09/22/16 Range/Units 05:28 08:26 09:43 RBC 2.20 L (3.80-5.40) m/uL Hgb 6.6 L* D (11.4-16.0) gm/dL Hct 20.4 L (34.0-46.0) % Plt Count 138 L (150-450) k/uL Lymphocytes # 0.7 L (1.0-4.8) k/uL Chloride 114 H (98-107) mmol/L Carbon Dioxide 19 L (22-30) mmol/L Glucose 214 H (74-99) mg/dL POC Glucose (mg/dL) 223 H (75-99) mg/dL Hemoglobin A1c (4.2-6.1) % Calcium 8.2 L (8.4-10.2) mg/dL Phosphorus (2.5-4.5) mg/dL Magnesium (1.6-2.3) mg/dL AST 11 L (14-36) U/L Total Protein 4.7 L (6.3-8.2) g/dL Albumin 2.3 L (3.5-5.0) g/dL Microbiology - Last 24 Hours (Table) 09/16/16 21:15 Blood Culture - Preliminary Blood No Growth after 120 hours Assessment and Plan (1) Diabetes Status: Acute (2) HTN (hypertension) Status: Acute Plan: 56 years old female status post exposure laparotomy, lysis of adhesions and small bowel resection with anastomosis postop day #3 1. A.m. labs noted. Repeat CBC and CMP, PT PTT INR stat 2. Discontinue epidural 3. Continue Mccann catheter for strict I's and O's 4. Reapply new dressing on the incision 5. DVT and GI prophylaxis 6. Encourage IS use
[2016-09-22 11:10] LABS: Basophils % (A) 0 %; CHCM 29.9; Eosinophils # (A) 0.3 k/uL (0-0.7); Eosinophils % (A) 4 %; HCT 29.4 % (34.0-46.0); HDW 2.87; Hypochromasia Marked; Luc # (Auto) 0.09; Luc % (Auto) 1; Lymphocytes # (A) 1.1 k/uL (1.0-4.8); Lymphocytes % (A) 12 %; MCH 28.1 pg (25.0-35.0); MCHC 29.8 g/dL (31.0-37.0); MCV 94.2 fL (80.0-100.0); Mean Platelet Volume 7.4; Monocytes # (A) 0.2 k/uL (0-1.0); Monocytes % (A) 2 %; Neutrophils # (A) 7.4 k/uL (1.3-7.7); Neutrophils % (A) 81 %; RBC 3.11 m/uL (3.80-5.40); RDW 14.5 % (11.5-15.5); WBC 9.1 k/uL (3.8-10.6); WBC (Perox) 9.38
[2016-09-22 11:13] LABS: HGB 8.8 gm/dL (11.4-16.0)
[2016-09-22 11:14] LABS: INR 1.1 (<1.1); Prothrombin Time 11.2 sec (9.0-12.0)
--- NOTE | 2016-09-22 11:33 | P.PN ---
Progress Note - Text 09/22 1035 56-year-old female status post exploratory lap with Dr. Nichols. Epidural solution running at 5 mL an hour, no motor or sensory deficit, no change in the pain score since yesterday, ambulating well. DC epidural nurse informed
[2016-09-22] MEDS: FAMOTIDINE 20 MG/2 ML VIAL IVP SCH (11:43)
[2016-09-22 11:50] LABS: Glucose,Whole Blood 293 mg/dL (75-99)
[2016-09-22 12:37] LABS: Iron 12 ug/dL (37-170)
[2016-09-22 12:46] LABS: % Iron Saturation 6.9 % (20-50); Total Iron Binding Capacity 173 ug/dL (265-497)
[2016-09-22] MEDS: SODIUM FERRIC GLUCONAT-SUCROSE 125 MG in SODIUM CHLORIDE 0.9% 100 ML IVPB SCH (14:38)
[2016-09-22 17:37] LABS: Glucose,Whole Blood 288 mg/dL (75-99)
[2016-09-22] MEDS: SODIUM PHOSPHATE 10 MMOL in SODIUM CHLORIDE 0.9% 250 ML IVPB SCH ×4 (18:39→23:30)
[2016-09-22] MEDS: HYDROmorphone 1 MG/ML 1 ML SYRINGE IV PRN (20:42)
--- NOTE | 2016-09-22 20:51 | PN ---
This 56-year-old woman who was admitted small bowel obstruction and also had exploratory laparotomy. The patient also had hemoglobin 6.6 at this time this morning, but apparently repeat hemoglobin came as 8.8, which is compatible with baseline. The patient has NG tube. On exam, alert and oriented times three. Pulse 94, blood pressure 142/72, respiratory rate 15, temperature 97.8, pulse ox 94% on room air. HEENT: Conjunctivae normal. NECK: No jugular venous distention. CARDIOVASCULAR: S1, S2 muffled. RESPIRATORY: Breath sounds diminished at the bases. A few scattered rhonchi. No crackles. ABDOMEN: Soft, status post surgery. Legs: No edema, no swelling. Nervous system: No focal deficits. LABS: At time shows WBC 9.1, hemoglobin 8.8. Glucose 293. ASSESSMENT: 1. Small bowel obstruction, status post exploratory laparotomy, open as well as lysis of lesions and evacuation of 6 feet incarcerated food bezoar, repair of incarcerated incisional hernia and as well as abdominal washout. 2. Sepsis of undetermined etiology with possible septic component with cavitary lesion in the bilateral legs present on admission. 3. Diabetes mellitus type 2, uncontrolled, without any evidence for diabetic ketoacidosis with insulin drip. Hemoglobin A1c 14. 4. Possible starvation ketoacidosis secondary to vomiting present on admission. 5. Increased d-dimer with no evidence of pulmonary embolus. 6. History of intermittent chronic asthma, chronic obstructive pulmonary disease. 7. History of cerebrovascular accident, transient ischemic attack. 8. History of gastroesophageal reflux disease. 9. Hypertension, essential. 10. Hyperlipidemia. 11. History of coronary artery disease. 12. History of myocardial infarction. 13. Hypothyroidism. 14. History of skin or kidney cancer with partial nephrectomy. 15. Peripheral neuropathy secondary to diabetes Type 2. 16. History of chronic pain and degenerative joint disease, back pain and degenerative joint disease. 17. History of spectrum beta lactamase Escherichia coli infection. 18. History of anxiety, depression. 19. History ongoing nicotine dependence. 20. History of THC. 21. FULL CODE. RECOMMENDATIONS AND DISCUSSION: In this 56-year-old woman who presented with multiple complex medical issues, we will monitor the patient closely. Continue the current medications. Continue symptomatic treatment. Otherwise, at this time, I would recommend continuing with monitoring along with the surgery, otherwise repeat labs will be ordered, hemoglobin as mentioned earlier lauren to 8.8 at this time and continue to monitor. Further recommendations to follow. MTDD
[2016-09-22 23:50] LABS: Glucose,Whole Blood 235 mg/dL (75-99)
[2016-09-23] MEDS: HYDROmorphone 1 MG/ML 1 ML SYRINGE IV PRN ×8 (00:15→23:39)
[2016-09-23] MEDS: METOCLOPRAMIDE 5 MG/ML 2 ML VIAL IVP SCH ×5 (00:17→23:14)
[2016-09-23] MEDS: PIPERACILLIN-TAZOBACTAM 3.375 GM in DEXTROSE/WATER 1 50ML.BAG IVPB SCH ×4 (00:18→23:53)
[2016-09-23] MEDS: INSULIN LISPRO (humaLOG) 300 UNIT/3 ML VIAL SQ SCH ×5 (00:26→23:53)
[2016-09-23] MEDS: 0.9% NACL WITH KCL 40 MEQ/L 1,000 ML IV SCH ×2 (05:48→13:37)
[2016-09-23 05:52] LABS: Glucose,Whole Blood 279 mg/dL (75-99)
[2016-09-23 07:18] LABS: Basophils % (A) 0 %; CH 27.7; CHCM 30.9; Eosinophils # (A) 0.3 k/uL (0-0.7); Eosinophils % (A) 5 %; HCT 24.7 % (34.0-46.0); HDW 3.01; Hypochromasia Moderate; Luc % (Auto) 2; Lymphocytes # (A) 1.3 k/uL (1.0-4.8); Lymphocytes % (A) 20 %; MCH 29.1 pg (25.0-35.0); MCHC 32.3 g/dL (31.0-37.0); MCV 90.1 fL (80.0-100.0); Monocytes # (A) 0.2 k/uL (0-1.0); Monocytes % (A) 3 %; Neutrophils # (A) 4.6 k/uL (1.3-7.7); Neutrophils % (A) 71 %; RBC 2.75 m/uL (3.80-5.40); RDW 14.4 % (11.5-15.5); WBC 6.5 k/uL (3.8-10.6); WBC (Perox) 6.61
[2016-09-23 07:34] LABS: Glucose 242 mg/dL (74-99); Total Protein 4.4 g/dL (6.3-8.2)
[2016-09-23 07:35] LABS: ALT 22 U/L (9-52); AST 13 U/L (14-36); Alkaline Phosphatase 76 U/L (38-126); Anion Gap 9 mmol/L; Blood Urea Nitrogen 3 mg/dL (7-17); Calcium 7.6 mg/dL (8.4-10.2); Carbon Dioxide 19 mmol/L (22-30); Chloride 111 mmol/L (98-107); Magnesium 1.3 mg/dL (1.6-2.3); Non-African American GFR(MDRD) >60 (>60 ml/min/1.73 sqM); Phosphorous 2.1 mg/dL (2.5-4.5); Potassium 3.6 mmol/L (3.5-5.1); Sodium 139 mmol/L (137-145); Total Bilirubin 0.3 mg/dL (0.2-1.3)
[2016-09-23] MEDS: SODIUM FERRIC GLUCONAT-SUCROSE 125 MG in SODIUM CHLORIDE 0.9% 100 ML IVPB SCH (08:01)
[2016-09-23] MEDS: NICOTINE 21MG/24HR PATCH TRANSDERM SCH (08:05)
[2016-09-23] MEDS: FAMOTIDINE 20 MG/2 ML VIAL IVP SCH (08:05)
[2016-09-23] MEDS: HEPARIN SODIUM,PORCINE 5,000 UNIT/ML 1 ML VIAL SQ SCH ×2 (08:05→20:07)
[2016-09-23] MEDS: MAGNESIUM SULFATE-D5W PMX 1 GM in DEXTROSE/WATER 1 100ML.BAG IVPB SCH ×3 (10:23→13:39)
--- NOTE | 2016-09-23 10:25 | P.PN ---
Subjective Date of service 09/23/2016. Progress note being dictated for Dr. Hill. Interval history: This is a 56-year-old female admitted with small bowel obstruction, status post exploratory laparotomy with extensive lysis of adhesions, evacuation of incarcerated food bezoar, small bowel resection, repair of incarcerated incisional hernia, and multiple other medical issues. Maintained on IV fluid hydration, NG tube Zosyn. Epidural has been discontinued , pain controlled on Dilaudid every 3 hours PRN. Passing both flatus and bowel movement. Surgery discussing potential removal of NG tube . Afebrile, T-max 99.1. Hemoglobin 8, asymptomatic. Review of systems: HEENT: Denies headache or focal deficits. Denies any dizziness or lightheadedness. Respiratory: Denies any increased shortness of breath. Denies shortness of breath with minimal exertion Cardiac: Denies any chest pain, palpitations. GI: Denies any nausea, vomiting, past a couple of loose stools, States pain controlled on Dilaudid. : Denies any dysuria. Psychiatry: Denies any anxiety or depression. Active Medications Diphenhydramine HCl (Benadryl) 25 mg IVP Q6HR PRN PRN Reason: Itching Last Admin: 09/21/16 09:30 Dose: 25 mg Famotidine (Pepcid) 20 mg IVP DAILY [facility] Last Admin: 09/23/16 08:05 Dose: 20 mg Heparin Sodium (Porcine) (Heparin) 5,000 unit SQ Q12HR [facility] Last Admin: 09/23/16 08:05 Dose: 5,000 unit Hydromorphone HCl (Dilaudid) 0.5 mg IV Q3HR PRN PRN Reason: Severe Pain Last Admin: 09/23/16 09:21 Dose: 0.5 mg Piperacillin/Tazobactam/ (Dextrose 3.375 gm/ IV Solution) 50 mls @ 12.5 mls/hr IVPB Q8HR [facility] Last Admin: 09/23/16 09:21 Dose: 12.5 mls/hr Bupivacaine HCl 50 ml/Hydromorphone HCl 5 mg/ Sodium Chloride 250.5 mls @ 0 mls /hr EPIDURAL .Q0M PRN; Protocol; Per Protocol PRN Reason: Pain Control Last Admin: 09/21/16 19:04 Dose: 5 mls/hr Potassium Chloride/Sodium Chloride (Ns-Kcl 40 Meq/L Iv Solution) 1,000 mls @ 100 mls/hr IV .Q10H [facility] Last Admin: 09/23/16 05:48 Dose: 100 mls/hr Ferric Sodium Gluconate 125 mg (/ Sodium Chloride) 110 mls @ 100 mls/hr IVPB DAILY [facility] Stop: 09/24/16 10:05 Last Admin: 09/23/16 08:01 Dose: 100 mls/hr Insulin Human Lispro (Humalog) 0 unit SQ Q6HR [facility] PRN Reason: Protocol Last Admin: 09/23/16 06:12 Dose: 4 unit Metoclopramide HCl (Reglan) 10 mg IVP Q6HR [facility] Last Admin: 09/23/16 06:17 Dose: 10 mg Miscellaneous Information (Magnesium Per Protocol) 1 each MISCELLANE DAILY PRN ; Protocol PRN Reason: Per Protocol Miscellaneous Information (Potassium Per Protocol) 1 each MISCELLANE DAILY PRN PRN Reason: Per Protocol Nalbuphine HCl (Nubain) 2.5 mg IV Q4HR PRN PRN Reason: Itching Last Admin: 09/20/16 03:07 Dose: 2.5 mg Naloxone HCl (Narcan) 0.2 mg IV Q2M PRN PRN Reason: Opioid Reversal Nicotine (Habitrol 21mg/24hr Patch) 1 patch TRANSDERM DAILY [facility] Last Admin: 09/23/16 08:05 Dose: 1 patch Ondansetron HCl (Zofran) 4 mg IVP Q6HR PRN PRN Reason: Nausea And Vomiting Last Admin: 09/20/16 15:07 Dose: 4 mg Scopolamine (Transderm-Scop 1.5mg/72hr Patch) 1 patch TRANSDERM Q72H [facility] Last Admin: 09/21/16 15:48 Dose: 1 patch Objective - Vital Signs Vital signs: Vital Signs Temp 98.7 F 09/23/16 01:57 Pulse 108 H 09/23/16 01:57 Resp 16 09/23/16 01:57 BP 128/69 09/23/16 01:57 Pulse Ox 97 09/23/16 01:57 Intake & Output 09/22/16 09/23/16 09/23/16 18:59 06:59 18:59 Intake Total 40 800 Output Total 804 620 Balance -764 180 Intake: IV 800 0.9% NaCl with KCl 40 Meq 800 /l 1,000 ml @ 100 mls/hr IV .Q10H [facility] Rx#: [id number] Oral 40 Output: Gastric Drainage 50 Drainage 0 20 Abdomen 0 20 Urine 800 550 Uretheral (Mccann) 800 Stool 4 Other: Voiding Method Indwelling Catheter Toilet - Exam PHYSICAL EXAM: VITAL SIGNS: As above GENERAL: [Lying in bed, no acute distress] HEENT: [Pupils equal conjunctiva normal. NG tube present] NECK: [Supple, no JVD] RESPIRATORY EFFORT:[Normal] LUNGS: [Essentially clear, bilateral bases diminished, occasional rhonchi, wheezing or crackles] CARDIOVASCULAR[regular S1-S2, no murmurs rubs or gallops no edema] GI: [Abdomen soft, status post surgery, positive bowel sounds PSYCH: [Alert and oriented -3, mood and affect normal. NEURO: [No focal deficits, moves all 4 extremities, strength and sensation grossly intact] Microbiology 09/16/16 21:15 Blood Blood Culture - Final No Growth after 144 hours 09/16/16 08:00 Blood Blood Culture - Final No Growth after 144 hours 09/16/16 21:45 Urine,Voided Urine Culture - Final - Labs CBC & Chem 7: 09/23/16 07:03 09/23/16 07:03 Labs: Abnormal Lab Results - Last 24 Hours (Table) 09/22/16 09/22/16 09/22/16 Range/Units 08:26 09:43 10:58 RBC 2.20 L 3.11 L (3.80-5.40) m/uL Hgb 6.6 L* D 8.8 L D (11.4-16.0) gm/dL Hct 20.4 L 29.4 L (34.0-46.0) % MCHC 29.8 L (31.0-37.0) g/dL Plt Count 138 L (150-450) k/uL Lymphocytes # 0.7 L (1.0-4.8) k/uL Chloride 114 H (98-107) mmol/L Carbon Dioxide 19 L (22-30) mmol/L BUN (7-17) mg/dL Glucose 214 H (74-99) mg/dL POC Glucose (mg/dL) (75-99) mg/dL Calcium 8.2 L (8.4-10.2) mg/dL Phosphorus (2.5-4.5) mg/dL Magnesium (1.6-2.3) mg/dL Iron 12 L (37-170) ug/dL TIBC 173 L (265-497) ug/dL % Saturation 6.9 L (20-50) % AST 11 L (14-36) U/L Total Protein 4.7 L (6.3-8.2) g/dL Albumin 2.3 L (3.5-5.0) g/dL 09/22/16 09/22/16 09/22/16 Range/Units 11:47 17:36 23:48 RBC (3.80-5.40) m/uL Hgb (11.4-16.0) gm/dL Hct (34.0-46.0) % MCHC (31.0-37.0) g/dL Plt Count (150-450) k/uL Lymphocytes # (1.0-4.8) k/uL Chloride (98-107) mmol/L Carbon Dioxide (22-30) mmol/L BUN (7-17) mg/dL Glucose (74-99) mg/dL POC Glucose (mg/dL) 293 H 288 H 235 H (75-99) mg/dL Calcium (8.4-10.2) mg/dL Phosphorus (2.5-4.5) mg/dL Magnesium (1.6-2.3) mg/dL Iron (37-170) ug/dL TIBC (265-497) ug/dL % Saturation (20-50) % AST (14-36) U/L Total Protein (6.3-8.2) g/dL Albumin (3.5-5.0) g/dL 09/23/16 09/23/16 09/23/16 Range/Units 05:47 07:03 07:03 RBC 2.75 L (3.80-5.40) m/uL Hgb 8.0 L (11.4-16.0) gm/dL Hct 24.7 L (34.0-46.0) % MCHC (31.0-37.0) g/dL Plt Count (150-450) k/uL Lymphocytes # (1.0-4.8) k/uL Chloride 111 H (98-107) mmol/L Carbon Dioxide 19 L (22-30) mmol/L BUN 3 L (7-17) mg/dL Glucose 242 H (74-99) mg/dL POC Glucose (mg/dL) 279 H (75-99) mg/dL Calcium 7.6 L (8.4-10.2) mg/dL Phosphorus 2.1 L (2.5-4.5) mg/dL Magnesium 1.3 L (1.6-2.3) mg/dL Iron (37-170) ug/dL TIBC (265-497) ug/dL % Saturation (20-50) % AST 13 L (14-36) U/L Total Protein 4.4 L (6.3-8.2) g/dL Albumin 2.2 L (3.5-5.0) g/dL Microbiology - Last 24 Hours (Table) 09/16/16 21:15 Blood Culture - Final Blood No Growth after 144 hours Assessment and Plan Plan: 1. [Small bowel obstruction, status post exploratory laparotomy, open, with lysis of adhesions and evacuation of 6 feet of incarcerated food bezoar, repair of incarcerated incisional hernia, abdominal washout ]. 2. [Sepsis of undetermined etiology with possible septic emboli with cavitary lesions in bilateral lung, present on admission]. 3. [Diabetes mellitus type 2, uncontrolled without evidence of DKA, Hemoglobin A1c 14 4. [Possible starvation ketoacidosis secondary to vomiting]. 5. [Increased d-dimer without evidence of pulmonary embolism]. 6. [History of intermittent chronic asthma, COPD]. 7. [History of CVA, TIA]. 8. Gastroesophageal reflux disease 9. Hypertension 10. Hyperlipidemia 11. CAD, history of UT 12. Hypothyroidism 13. History of left kidney cancer with partial nephrectomy 14. Peripheral neuropathy secondary to diabetes mellitus II 15. Chronic back pain with degenerative joint disease 16. History of ESBL 17. History of anxiety and depression 18. continued ongoing nicotine dependence 19. History of THC. 20. Hypomagnesemia Plan: Continue on current medication regime, GI and DVT prophylaxis, broad spectrum antibiotics, monitoring and symptomatic treatment. Electrolyte supplements ordered, repeat lites at 1600. CBC/labs pending. Maintain IV fluid hydration. Potential DC of NG tube today with diet advancement as per surgery.aggressive pulmonary toileting .Follow cultures closely. Antibiotics as per infectious disease. close monitoring of Accu-Cheks. Follow closely with surgery. Further recommendations to follow. Prognosis guarded given multiple complex medical issues. The impression and plan of care has been dictated as directed. : I performed a H&P examination of this patient and discussed the same with the dictator. I agree with the dictator's note. Any additional findings/opinions/ etc. will be noted.
[2016-09-23 11:34] LABS: Glucose,Whole Blood 297 mg/dL (75-99)
--- NOTE | 2016-09-23 14:50 | P.PN ---
Subjective 56-year-old female being seen up ambulating in the room has been up ambulating in the hallway. Patient states is passing flatus had 1 small stool this afternoon reportedly had 2 stools earlier. Patient states she's anxious to have the nasal gastric tube removed. Patient is postop on September 19 underwent lysis of adhesions evacuation of an incarcerated food bezor small bowel resection and repair of an incarcerated incisional hernia. Objective - Vital Signs Vital signs: Vital Signs Temp 98.2 F 09/23/16 13:47 Pulse 71 09/23/16 13:47 Resp 16 09/23/16 13:47 BP 142/78 09/23/16 13:47 Pulse Ox 98 09/23/16 13:47 Intake & Output 09/22/16 09/23/16 09/23/16 18:59 06:59 18:59 Intake Total 40 800 Output Total 804 620 Balance -764 180 Intake: IV 800 0.9% NaCl with KCl 40 Meq 800 /l 1,000 ml @ 100 mls/hr IV .Q10H [facility] Rx#: [id number] Oral 40 Output: Gastric Drainage 50 Drainage 0 20 Abdomen 0 20 Urine 800 550 Uretheral (Mccann) 800 Stool 4 Other: Voiding Method Indwelling Catheter Toilet - Exam Physical exam A 56-year-old female pleasant cooperative oriented 3. Nasal gastric tube in place. Up ambulating in the room Lungs essentially clear with adequate air movement sats are documented 96% on room air Heart S1-S2 audible regular denying chest pain monitor sinus rhythm no ectopy no murmur Abdomen soft surgical dressing abdominal dry with a Sundar-Cortez drain in place serous drainage noted in the bulb nasal gastric tube in place clamped tolerating clear liquids states passing gas 1 small stool this afternoon no nausea no vomiting extremities no evidence of edema bilaterally - Labs CBC & Chem 7: 09/23/16 07:03 09/23/16 07:03 Labs: Abnormal Lab Results - Last 24 Hours (Table) 09/22/16 09/22/16 09/23/16 Range/Units 17:36 23:48 05:47 RBC (3.80-5.40) m/uL Hgb (11.4-16.0) gm/dL Hct (34.0-46.0) % Chloride (98-107) mmol/L Carbon Dioxide (22-30) mmol/L BUN (7-17) mg/dL Glucose (74-99) mg/dL POC Glucose (mg/dL) 288 H 235 H 279 H (75-99) mg/dL Calcium (8.4-10.2) mg/dL Phosphorus (2.5-4.5) mg/dL Magnesium (1.6-2.3) mg/dL AST (14-36) U/L Total Protein (6.3-8.2) g/dL Albumin (3.5-5.0) g/dL 09/23/16 09/23/16 09/23/16 Range/Units 07:03 07:03 11:33 RBC 2.75 L (3.80-5.40) m/uL Hgb 8.0 L (11.4-16.0) gm/dL Hct 24.7 L (34.0-46.0) % Chloride 111 H (98-107) mmol/L Carbon Dioxide 19 L (22-30) mmol/L BUN 3 L (7-17) mg/dL Glucose 242 H (74-99) mg/dL POC Glucose (mg/dL) 297 H (75-99) mg/dL Calcium 7.6 L (8.4-10.2) mg/dL Phosphorus 2.1 L (2.5-4.5) mg/dL Magnesium 1.3 L (1.6-2.3) mg/dL AST 13 L (14-36) U/L Total Protein 4.4 L (6.3-8.2) g/dL Albumin 2.2 L (3.5-5.0) g/dL Microbiology - Last 24 Hours (Table) 09/16/16 21:15 Blood Culture - Final Blood No Growth after 144 hours Assessment and Plan Plan: Impression Present on admission abdominal pain suspect due to a partial small bowel obstruction Chronic nicotine dependency greater than a 40 year history 1 pack a day COPD no evidence of acute exacerbation History of renal cell carcinoma CAT scan of the chest show cavitary lesion lung CAT scan of the chest bilateral pulmonary nodules Persistent abdominal nausea emesis abdominal distention relieved with a nasal gastric tube 400 mL obtained after insertion done on September 17 Echocardiogram done on September 16 left ventricular systolic function low normal with an EF between 50 and 55%. Depressive disorder nonspecified History of a prior CVA with mild residual left-sided weakness UTI in April 2016 found to have ESBL with E. coli Chronic back pain Postoperative Diagnosis: , frozen abdomen small bowel, bowel obstruction with 6 feet of food bezoar noted Procedure(s) Performed: On 09/19/2016 1. Open exploratory laparotomy 2. Extensive lysis of adhesions over 3-1/2 hours. 3. Evacuation of over 6 feet of incarcerated food bezoar involving mid to distal jejunum 4. Small bowel resection, mid jejunum 5. Repair of incarcerated incisional hernia epigastrium 4 cm involving omentum 6. Abdominal washout 6 L. 7. Placement of round up and 19 CATHRYN drain via right lower quadrant Plan Remove the nasal gastric tube pain control Monitor labs IV fluid for hydration DVT and GI prophylaxis Attempt to increase activity as tolerated Advance the diet Increase activity ambulate in velarde at least 3 times a day Continue postop surgical care Repeat labs in the morning The above dictated assessment and findings were discussed with dr Magdalena Richards and the plan of care have been dictated as directed. Shaina Dockery nurse practitioner acting as a scribe for Magdalena
--- NOTE | 2016-09-23 15:16 | P.PN ---
Subjective Principal diagnosis: Acute small bowel obstruction requiring exploratory laparotomy and lysis of adhesions. This is a 56-year-old female patient with a previous history of renal cell carcinoma status post partial nephrectomy approximately 10 years ago, along with previous history of cholecystectomy, presented to the burst department with a few days history of abdominal pain and distention. The patient was mario alberto yet she hasn't had any bowel movements over the past 24-48 hours. In addition, over the past 24 hours the patient had multiple episodes of emesis. Denied having any bright red blood per rectum. No melena. No hematochezia. The patient came into the burst department for that reason and as part of further investigation a CAT scan of the chest abdomen and pelvis was done. A CAT scan of the abdomen and pelvis showed evidence of small bowel obstruction without a definitive transition point. There was evidence of a granuloma in the left lower lobe. There is also evidence of partial left nephrectomy with a stable left sided renal calculus which may be an early staghorn calculus. There was evidence of a ventral hernia containing fat only. There was evidence of bilateral lysis at the level of L5 spine and moderate degenerative changes in the spine. The CAT scan of the chest however showed multifocal areas of moderate infiltrates bilaterally predominantly in the upper lobe and 2 of these lesions were essentially cavitating and the largest measuring 1.4 x 1.2 cm in size on the right. This raises the suspicion for metastatic emboli versus septic emboli versus metastatic cancer. Clinically, the patient denies having any respiratory difficulties. No cough or sputum production. No chest tightness. No wheezing. No hemoptysis. In addition, she denies having any fever. Most of any endocarditis or valvular heart disease. No history of any cardiac problems. The patient was treated in the past for a gram-negative urine checked infection with E. coli and she had a PICC line inserted that was subsequently removed after the completion of IV antibiotics which included IV Invanz treatment. This was essentially during a hospitalization back in April 2016 and this was done under the supervision of Dr. Mills. The echocardiogram from that time in April 2016 showed no significant abnormalities and the patient ejection fraction was around 55% with some segmental wall motion abnormalities especially in the basal and inferior wall of the myocardium. The valves were all essentially within normal limits. Currently, the patient has no leukocytosis, she is afebrile, she has no hypotension and she is on 2 L of oxygen nasal cannula and her pulse ox is 98% On 09/17/2016 the patient is being seen in follow-up. She was hospitalized yesterday for a bowel obstruction and subsequently she was found to have bilateral pulmonary nodules that discussed earlier. There is a suspicion for septic versus malignant cancerous pulmonary emboli. In any rate, the patient was still having some abdominal distention and nausea and emesis and earlier this morning and NG tube was inserted and total of 400 mL of gastric juice was aspirated. She has having bowel movements still and she is not completely obstructed and I suspect she has a partial small bowel obstruction. She has adequate bowel sounds. No respiratory difficulties. No fever or chills. Blood cultures were sent and the results are still pending for now. Echocardiogram was also done and the results are still pending for now. No respiratory difficulties whatsoever. On 09/19/2016 the patient remains on a surgical floor. The patient still has an NG tube in place. Doppler was considerably high. Abdomen remains somewhat distended and the patient will be taken to the operating room for an explanation. The patient is dry heaving and she is quite nauseated. No cough. No sputum production. No chest that is. No wheezing. Would consider been negative. Echocardiogram shows no evidence of endocarditis. On 09/23/2016, patient is status post expiratory laparotomy and extensive lysis of adhesions with evacuation of food bezoar, small bowel resection, repair of incarcerated incisional hernia, and we have been seeing her for cavitary lesions in both lungs, felt to be likely either metastatic or septic emboli. These are to be addressed on an outpatient basis when the patient is discharged home eventually. No active pulmonary symptoms at present. CBC was reviewed basic metabolic profile was also noted. Objective - Vital Signs Vital signs: Vital Signs Temp 98.2 F 09/23/16 13:47 Pulse 71 09/23/16 13:47 Resp 16 09/23/16 13:47 BP 142/78 09/23/16 13:47 Pulse Ox 98 09/23/16 13:47 Intake & Output 09/22/16 09/23/16 09/23/16 18:59 06:59 18:59 Intake Total 40 800 Output Total 804 620 Balance -764 180 Intake: IV 800 0.9% NaCl with KCl 40 Meq 800 /l 1,000 ml @ 100 mls/hr IV .Q10H [facility] Rx#: [id number] Oral 40 Output: Gastric Drainage 50 Drainage 0 20 Abdomen 0 20 Urine 800 550 Uretheral (Mccann) 800 Stool 4 Other: Voiding Method Indwelling Catheter Toilet - Exam GENERAL: [Lying in bed, no acute distress] HEENT: [Pupils equal conjunctiva normal. NG tube present] NECK: [Supple, no JVD] RESPIRATORY EFFORT:[Normal] LUNGS: [Essentially clear, bilateral bases diminished, occasional rhonchi, wheezing or crackles] CARDIOVASCULAR[regular S1-S2, no murmurs rubs or gallops no edema] GI: [Abdomen soft, status post surgery, positive bowel sounds PSYCH: [Alert and oriented -3, mood and affect normal. NEURO: [No focal deficits, moves all 4 extremities, strength and sensation grossly intact] - Labs CBC & Chem 7: 09/23/16 07:03 09/23/16 07:03 Labs: Abnormal Lab Results - Last 24 Hours (Table) 09/22/16 09/22/16 09/23/16 Range/Units 17:36 23:48 05:47 RBC (3.80-5.40) m/uL Hgb (11.4-16.0) gm/dL Hct (34.0-46.0) % Chloride (98-107) mmol/L Carbon Dioxide (22-30) mmol/L BUN (7-17) mg/dL Glucose (74-99) mg/dL POC Glucose (mg/dL) 288 H 235 H 279 H (75-99) mg/dL Calcium (8.4-10.2) mg/dL Phosphorus (2.5-4.5) mg/dL Magnesium (1.6-2.3) mg/dL AST (14-36) U/L Total Protein (6.3-8.2) g/dL Albumin (3.5-5.0) g/dL 09/23/16 09/23/16 09/23/16 Range/Units 07:03 07:03 11:33 RBC 2.75 L (3.80-5.40) m/uL Hgb 8.0 L (11.4-16.0) gm/dL Hct 24.7 L (34.0-46.0) % Chloride 111 H (98-107) mmol/L Carbon Dioxide 19 L (22-30) mmol/L BUN 3 L (7-17) mg/dL Glucose 242 H (74-99) mg/dL POC Glucose (mg/dL) 297 H (75-99) mg/dL Calcium 7.6 L (8.4-10.2) mg/dL Phosphorus 2.1 L (2.5-4.5) mg/dL Magnesium 1.3 L (1.6-2.3) mg/dL AST 13 L (14-36) U/L Total Protein 4.4 L (6.3-8.2) g/dL Albumin 2.2 L (3.5-5.0) g/dL Microbiology - Last 24 Hours (Table) 09/16/16 21:15 Blood Culture - Final Blood No Growth after 144 hours Assessment and Plan Plan: 1 bilateral pulmonary lesions with 2 a cavitating disease involving the right lung, largest being 1.4 cm in size. Rule out metastatic poorly lesions with early cavitation, rule out septic emboli. Tuberculosis felt to be less likely. Other necrotizing pneumonia are felt to be less likely specially the patient is not acting septic at all. Vasculitis is also less likely taken in account the patient's clinical circumstances. Note that a CAT scan of the chest that was done back in April 2016 showed no abnormalities in the upper lobes. On 09/17/2016, the workup is in progress. Results of the blood culture on echocardiogram are still pending for now. Meanwhile vasculitis workup is also been sent. On 09/19/2016, there is no clear evidence of any septic emboli to the lungs. Echocardiogram was negative. Blood cultures of been negative. On 09/23/2016, patient is status post exploratory laparotomy as noted above in history of the present illness, and lysis of adhesions. Relatively uneventful postoperative course so far. 2 renal cell carcinoma status post partial nephrectomy on the left 3 small bowel obstruction, awaiting surgical exploration 4 COPD 5 coronary artery disease 6 history of recent urine checked infection force the patient was hospitalized back in April 2016 and the patient was found to have an ESBL producing E. coli requiring inpatient and then outpatient IV antibiotics utilizing a PICC line and IV Invanz 7 previous myocardial infarction 8 peripheral neuropathy 9 hypertension 10 restless leg syndrome 11 COPD 12 chronic back pain. 13 hypothyroidism 14 CVA 4 with some residual left-sided weakness 15 smoker Recommendation: Continue present treatment plan, must have outpatient follow-up upon discharge with Dr. Carey for her pulmonary nodules or cavitary lesions which need to be addressed on an outpatient basis. Time with Patient: Less than 30
[2016-09-23] MEDS: ONDANSETRON 4 MG/2 ML VIAL IVP PRN (15:27)
[2016-09-23] MEDS: POTASSIUM CHLORIDE 20 MEQ, LIDOCAINE 2% INJ 20 MG in SODIUM CHLORIDE 0.9% 100 ML IVPB SCH ×2 (15:32→17:31)
[2016-09-23 17:27] LABS: Glucose,Whole Blood 275 mg/dL (75-99)
--- NOTE | 2016-09-23 18:23 | P.PN ---
Progress Note - Text Patient seen and reevaluated this evening. She is passing flatus. She had a bowel movement him. Abdominal pain moderately improved since after surgery. Electrolytes are being corrected including low magnesium and low phosphate. May advance diet with protein supplements. Patient is surgically clear for discharge home upon correction of electrolytes and tolerating diet. Follow-up in the office 1 week.
[2016-09-23] MEDS: SODIUM PHOSPHATE 10 MMOL in SODIUM CHLORIDE 0.9% 250 ML IVPB SCH ×2 (20:00→23:07)
--- NOTE | 2016-09-23 21:12 | PN ---
DATE OF SERVICE: 09/23/2016 This 56-year-old woman who was admitted after bowel surgery had electrolyte imbalance, also. Seen and evaluated the patient along with the nurse practitioner. Please refer to the nurse practitioner's notes and impressions documented as a scribe for further information. Continue to follow with Surgery. The patient appears to be improving at this point. Further recommendations to follow.
--- NOTE | 2016-09-23 22:13 | P.PN ---
Subjective Principal diagnosis: Nausea and emesis 56-year-old female who has a history of multiple medical troubles that includes diabetes mellitus type 2 poorly controlled over time, the history of ESBL E. coli infection with sepsis, renal cell carcinoma with left partial nephrectomy. She presents to the emergency center with approximately a day of increasing abdominal pain in the periumbilical area associated with multiple bouts of nausea and emesis. She was unable to take in food or fluids. She was at her blood sugars were becoming elevated in counseling she presented to the emergency center she had markedly elevated blood sugar, she was acetone positive , A presentation evaluations performed including imaging studies showed evidence of a small bowel obstruction. She continues been admitted and receiving fluids. Antibiotic therapy was started with concerns of her prior urine infection and abdominal infection. She is status post resection. Doing considerably better. NG tube was removed. Eating food and feeling considerably better. Objective - Vital Signs Vital signs: Vital Signs Temp 99.2 F 09/23/16 20:00 Pulse 100 09/23/16 20:00 Resp 16 09/23/16 20:00 BP 142/87 09/23/16 20:00 Pulse Ox 98 09/23/16 20:00 Intake & Output 09/23/16 09/23/16 09/24/16 06:59 18:59 06:59 Intake Total 800 850 Output Total 620 Balance 180 850 Intake: IV 800 850 0.9% NaCl with KCl 40 Meq 800 400 /l 1,000 ml @ 100 mls/hr IV .Q10H [facility] Rx#: [id number] Magnesium Sulfate-D5w Pmx 300 1 gm In Dextrose/Water 1 100ml.bag @ 100 mls/hr IVPB Q1H [facility] Rx#: [id number] Piperacillin-Tazobactam 3 50 .375 gm In Dextrose/Water 1 50ml.bag @ 12.5 mls/hr IVPB Q8HR [facility] Rx#: [id number] Sodium Ferric Gluconat- 100 Sucrose 125 mg In Sodium Chloride 0.9% 100 ml @ 100 mls/hr IVPB DAILY [facility]GA Rx#:[id number] Output: Gastric Drainage 50 Drainage 20 Abdomen 20 Urine 550 Other: Voiding Method Toilet - Exam HEENT: Anicteric conjunctiva are pink and moist nasal mucosa grossly intact without significant lesions, there is no thrush. Fully edentulous Neck: The neck is supple without significant lymphadenopathy or thyromegaly. Lungs: Symmetrical air entry with few expiratory wheezes no chris bronchial sounds. Heart: Regular rate and rhythm with an audible S1-S2, no S3 no S4. There is no significant murmur click or rub, PMI was nondisplaced. Abdomen: post operative abdomen positive bowel sounds soft very little tenderness. Return of GI function is noted Extremities: The upper extremities have excellent pulses they are symmetric, no significant petechiae or telangiectasia. No splinter hemorrhages were noted. The lower extremities are free from significant edema. The peripheral pulses were 2+ and symmetric. Neuro: Awake alert oriented to person place and time. Anxious. There are no acute new gross focal sensory motor deficits. - Labs CBC & Chem 7: 09/23/16 07:03 09/23/16 07:03 Labs: Abnormal Lab Results - Last 24 Hours (Table) 09/22/16 09/23/16 09/23/16 Range/Units 23:48 05:47 07:03 RBC 2.75 L (3.80-5.40) m/uL Hgb 8.0 L (11.4-16.0) gm/dL Hct 24.7 L (34.0-46.0) % Chloride (98-107) mmol/L Carbon Dioxide (22-30) mmol/L BUN (7-17) mg/dL Glucose (74-99) mg/dL POC Glucose (mg/dL) 235 H 279 H (75-99) mg/dL Calcium (8.4-10.2) mg/dL Phosphorus (2.5-4.5) mg/dL Magnesium (1.6-2.3) mg/dL AST (14-36) U/L Total Protein (6.3-8.2) g/dL Albumin (3.5-5.0) g/dL 09/23/16 09/23/16 09/23/16 Range/Units 07:03 11:33 17:26 RBC (3.80-5.40) m/uL Hgb (11.4-16.0) gm/dL Hct (34.0-46.0) % Chloride 111 H (98-107) mmol/L Carbon Dioxide 19 L (22-30) mmol/L BUN 3 L (7-17) mg/dL Glucose 242 H (74-99) mg/dL POC Glucose (mg/dL) 297 H 275 H (75-99) mg/dL Calcium 7.6 L (8.4-10.2) mg/dL Phosphorus 2.1 L (2.5-4.5) mg/dL Magnesium 1.3 L (1.6-2.3) mg/dL AST 13 L (14-36) U/L Total Protein 4.4 L (6.3-8.2) g/dL Albumin 2.2 L (3.5-5.0) g/dL Microbiology - Last 24 Hours (Table) 09/16/16 21:15 Blood Culture - Final Blood No Growth after 144 hours Laboratory Results WBC 6.5 k/uL (3.8-10.6) 09/23/16 07:03 RBC 2.75 m/uL (3.80-5.40) L 09/23/16 07:03 Hgb 8.0 gm/dL (11.4-16.0) L 09/23/16 07:03 Hct 24.7 % (34.0-46.0) L 09/23/16 07:03 MCV 90.1 fL (80.0-100.0) 09/23/16 07:03 MCH 29.1 pg (25.0-35.0) 09/23/16 07:03 MCHC 32.3 g/dL (31.0-37.0) 09/23/16 07:03 RDW 14.4 % (11.5-15.5) 09/23/16 07:03 Plt Count 201 k/uL (150-450) 09/23/16 07:03 Neutrophils % 71 % 09/23/16 07:03 Lymphocytes % 20 % 09/23/16 07:03 Monocytes % 3 % 09/23/16 07:03 Eosinophils % 5 % 09/23/16 07:03 Basophils % 0 % 09/23/16 07:03 Neutrophils # 4.6 k/uL (1.3-7.7) 09/23/16 07:03 Lymphocytes # 1.3 k/uL (1.0-4.8) 09/23/16 07:03 Monocytes # 0.2 k/uL (0-1.0) 09/23/16 07:03 Eosinophils # 0.3 k/uL (0-0.7) 09/23/16 07:03 Basophils # 0.0 k/uL (0-0.2) 09/23/16 07:03 Polychromasia Present 09/22/16 08:26 Hypochromasia Moderate 09/23/16 07:03 ESR 25 mm/hr (0-20) H 09/16/16 08:00 PT 11.2 sec (9.0-12.0) 09/22/16 10:58 INR 1.1 (<1.1) 09/22/16 10:58 APTT 18.6 sec (22.0-30.0) L 09/16/16 08:00 D-Dimer 13.57 mg/L FEU (<0.60) H 09/16/16 08:00 Sodium 139 mmol/L (137-145) 09/23/16 07:03 Potassium 3.6 mmol/L (3.5-5.1) 09/23/16 07:03 Chloride 111 mmol/L (98-107) H 09/23/16 07:03 Carbon Dioxide 19 mmol/L (22-30) L 09/23/16 07:03 Anion Gap 9 mmol/L 09/23/16 07:03 BUN 3 mg/dL (7-17) L 09/23/16 07:03 Creatinine 0.56 mg/dL (0.52-1.04) 09/23/16 07:03 Est GFR (MDRD) Af Amer >60 (>60 ml/min/1.73 sqM) 09/23/16 07:03 Est GFR (MDRD) Non-Af >60 (>60 ml/min/1.73 sqM) 09/23/16 07:03 Glucose 242 mg/dL (74-99) H 09/23/16 07:03 POC Glucose (mg/dL) 275 mg/dL (75-99) H 09/23/16 17:26 POC Glu Flake Drier ID Pia Cleary 09/23/16 17:[address] Glu mg/dL 338 mg/dL 09/21/16 06:22 Hemoglobin A1c 13.4 % (4.2-6.1) H 09/21/16 06:22 Plasma Lactic Acid Ab 1.1 mmol/L (0.7-2.0) 09/16/16 11:09 Calcium 7.6 mg/dL (8.4-10.2) L 09/23/16 07:03 Phosphorus 2.1 mg/dL (2.5-4.5) L 09/23/16 07:03 Magnesium 1.9 mg/dL (1.6-2.3) 09/23/16 16:36 Iron 12 ug/dL (37-170) L 09/22/16 09:43 TIBC 173 ug/dL (265-497) L 09/22/16 09:43 % Saturation 6.9 % (20-50) L 09/22/16 09:43 Total Bilirubin 0.3 mg/dL (0.2-1.3) 09/23/16 07:03 AST 13 U/L (14-36) L 09/23/16 07:03 ALT 22 U/L (9-52) 09/23/16 07:03 Alkaline Phosphatase 76 U/L (38-126) 09/23/16 07:03 Troponin I <0.012 ng/mL (0.000-0.034) 09/16/16 08:00 Total Protein 4.4 g/dL (6.3-8.2) L 09/23/16 07:03 Albumin 2.2 g/dL (3.5-5.0) L 09/23/16 07:03 Amylase 47 U/L (30-110) 09/16/16 08:00 Lipase 63 U/L (23-300) 09/16/16 08:00 Urine Color Yellow 09/16/16 09:12 Urine Appearance Clear (Clear) 09/16/16 09:12 Urine pH 6.5 (5.0-8.0) 09/16/16 09:12 Ur Specific [place] 1.019 (1.001-1.035) 09/16/16 09:12 Urine Protein Negative (Negative) 09/16/16 09:12 Urine Glucose (UA) 4+ (Negative) H 09/16/16 09:12 Urine Ketones Trace (Negative) H 09/16/16 09:12 Urine Blood Negative (Negative) 09/16/16 09:12 Urine Nitrite Negative (Negative) 09/16/16 09:12 Urine Bilirubin Negative (Negative) 09/16/16 09:12 Urine Urobilinogen <2.0 mg/dL (<2.0) 09/16/16 09:12 Ur Leukocyte Esterase Negative (Negative) 09/16/16 09:12 Acetone, Qual Positive (Negative) 09/16/16 08:00 Rheumatoid Factor <9 IU/mL (<12) 09/16/16 08:00 c-ANCA <1:20 Titer (<1:20) 09/16/16 08:00 p-ANCA <1:20 Titer (<1:20) 09/16/16 08:00 Blood Type A Positive 09/19/16 12:22 Blood Type Confirm A Positive 09/19/16 06:48 Blood Type Recheck CABO Indicated 09/19/16 12:22 Antibody Screen NEGATIVE 09/19/16 12:22 Spec Expiration Date 09/22/2016232109/19/16 12:22 Microbiology 09/16/16 21:15 Blood Blood Culture - Final No Growth after 144 hours 09/16/16 08:00 Blood Blood Culture - Final No Growth after 144 hours 09/16/16 21:45 Urine,Voided Urine Culture - Final Assessment and Plan (1) Small bowel obstruction Narrative/Plan: 56-year-old woman presents to emergency center with significant abdominal pain who was found to have evidence of a small bowel obstruction has been seen by surgery. Plans for NG tube placement and monitoring. Pain control appears to be adequate at this time. She also had what appears to be diabetic ketoacidosis on admission and is resolved Does have a history of ESBL E. coli urinary tract infection. Of note because of her symptoms on admission ,imaging was performed showing the difficulty of the small bowel obstruction, however imaging of the chest showed evidence of 2 cavitary lung lesions with the largest being 1.4 x 1.2 cm in the right midlung. Concern from the radiologist would be to underlying septic pulmonary emboli versus metastasis with her history of renal cell carcinoma. At this time workup for endocarditis was negative, Pulmonology will be looking for possible vasculitis as etiology of the pulmonary process. She does not appear to have a urinary tract infection at this time. Continue Zosyn for now] and is showing some improvement. did well with surgery continues to improve. NG is out. Eating food. Feels considerably better. Likely transmission to oral Augmentin 875 mg to complete 7 days of therapy. Status: Acute (2) DKA (diabetic ketoacidoses) Status: Acute (3) History of renal cell carcinoma Status: Acute (4) Cavitary lesion of lung Status: Acute
[2016-09-23 23:50] LABS: Glucose,Whole Blood 226 mg/dL (75-99)
[2016-09-24] MEDS: SODIUM PHOSPHATE 10 MMOL in SODIUM CHLORIDE 0.9% 250 ML IVPB SCH (01:35)
[2016-09-24] MEDS: 0.9% NACL WITH KCL 40 MEQ/L 1,000 ML IV SCH ×2 (01:35→13:01)
[2016-09-24] MEDS: HYDROmorphone 1 MG/ML 1 ML SYRINGE IV PRN ×4 (02:37→14:17)
[2016-09-24] MEDS: METOCLOPRAMIDE 5 MG/ML 2 ML VIAL IVP SCH ×3 (06:00→19:07)
[2016-09-24 06:01] LABS: Glucose,Whole Blood 220 mg/dL (75-99)
[2016-09-24] MEDS: INSULIN LISPRO (humaLOG) 300 UNIT/3 ML VIAL SQ SCH ×4 (06:14→21:55)
[2016-09-24 08:07] LABS: Basophils % (A) 0 %; CH 28.2; CHCM 32.8; Eosinophils # (A) 0.3 k/uL (0-0.7); Eosinophils % (A) 6 %; HCT 26.9 % (34.0-46.0); HDW 3.03; Luc % (Auto) 2; Lymphocytes # (A) 1.4 k/uL (1.0-4.8); Lymphocytes % (A) 25 %; MCH 29.1 pg (25.0-35.0); MCHC 33.6 g/dL (31.0-37.0); MCV 86.5 fL (80.0-100.0); Monocytes # (A) 0.2 k/uL (0-1.0); Monocytes % (A) 4 %; Neutrophils # (A) 3.7 k/uL (1.3-7.7); Neutrophils % (A) 64 %; RBC 3.11 m/uL (3.80-5.40); RDW 14.4 % (11.5-15.5); WBC 5.7 k/uL (3.8-10.6); WBC (Perox) 5.97
[2016-09-24 08:18] LABS: ALT 26 U/L (9-52); AST 12 U/L (14-36); Alkaline Phosphatase 80 U/L (38-126); Anion Gap 9 mmol/L; Blood Urea Nitrogen <2 mg/dL (7-17); Calcium 8.2 mg/dL (8.4-10.2); Carbon Dioxide 24 mmol/L (22-30); Chloride 104 mmol/L (98-107); Glucose 187 mg/dL (74-99); Magnesium 1.4 mg/dL (1.6-2.3); Non-African American GFR(MDRD) >60 (>60 ml/min/1.73 sqM); Phosphorous 3.6 mg/dL (2.5-4.5); Sodium 137 mmol/L (137-145); Total Bilirubin 0.3 mg/dL (0.2-1.3); Total Protein 4.9 g/dL (6.3-8.2)
[2016-09-24] MEDS: MAGNESIUM SULFATE-D5W PMX 1 GM in DEXTROSE/WATER 1 100ML.BAG IVPB SCH ×4 (09:00→15:27)
[2016-09-24] MEDS: NICOTINE 21MG/24HR PATCH TRANSDERM SCH (09:48)
[2016-09-24] MEDS: PIPERACILLIN-TAZOBACTAM 3.375 GM in DEXTROSE/WATER 1 50ML.BAG IVPB SCH ×2 (09:48→17:29)
[2016-09-24] MEDS: FAMOTIDINE 20 MG/2 ML VIAL IVP SCH (09:48)
[2016-09-24] MEDS: HEPARIN SODIUM,PORCINE 5,000 UNIT/ML 1 ML VIAL SQ SCH ×2 (09:51→21:55)
--- NOTE | 2016-09-24 10:49 | P.PN ---
Subjective Acute small bowel obstruction requiring exploratory laparotomy and lysis of adhesions. This is a 56-year-old female patient with a previous history of renal cell carcinoma status post partial nephrectomy approximately 10 years ago, along with previous history of cholecystectomy, presented to the burst department with a few days history of abdominal pain and distention. The patient was mario alberto yet she hasn't had any bowel movements over the past 24-48 hours. In addition, over the past 24 hours the patient had multiple episodes of emesis. Denied having any bright red blood per rectum. No melena. No hematochezia. The patient came into the burst department for that reason and as part of further investigation a CAT scan of the chest abdomen and pelvis was done. A CAT scan of the abdomen and pelvis showed evidence of small bowel obstruction without a definitive transition point. There was evidence of a granuloma in the left lower lobe. There is also evidence of partial left nephrectomy with a stable left sided renal calculus which may be an early staghorn calculus. There was evidence of a ventral hernia containing fat only. There was evidence of bilateral lysis at the level of L5 spine and moderate degenerative changes in the spine. The CAT scan of the chest however showed multifocal areas of moderate infiltrates bilaterally predominantly in the upper lobe and 2 of these lesions were essentially cavitating and the largest measuring 1.4 x 1.2 cm in size on the right. This raises the suspicion for metastatic emboli versus septic emboli versus metastatic cancer. Clinically, the patient denies having any respiratory difficulties. No cough or sputum production. No chest tightness. No wheezing. No hemoptysis. In addition, she denies having any fever. Most of any endocarditis or valvular heart disease. No history of any cardiac problems. The patient was treated in the past for a gram-negative urine checked infection with E. coli and she had a PICC line inserted that was subsequently removed after the completion of IV antibiotics which included IV Invanz treatment. This was essentially during a hospitalization back in April 2016 and this was done under the supervision of Dr. Mills. The echocardiogram from that time in April 2016 showed no significant abnormalities and the patient ejection fraction was around 55% with some segmental wall motion abnormalities especially in the basal and inferior wall of the myocardium. The valves were all essentially within normal limits. Currently, the patient has no leukocytosis, she is afebrile, she has no hypotension and she is on 2 L of oxygen nasal cannula and her pulse ox is 98% On 09/17/2016 the patient is being seen in follow-up. She was hospitalized yesterday for a bowel obstruction and subsequently she was found to have bilateral pulmonary nodules that discussed earlier. There is a suspicion for septic versus malignant cancerous pulmonary emboli. In any rate, the patient was still having some abdominal distention and nausea and emesis and earlier this morning and NG tube was inserted and total of 400 mL of gastric juice was aspirated. She has having bowel movements still and she is not completely obstructed and I suspect she has a partial small bowel obstruction. She has adequate bowel sounds. No respiratory difficulties. No fever or chills. Blood cultures were sent and the results are still pending for now. Echocardiogram was also done and the results are still pending for now. No respiratory difficulties whatsoever. On 09/19/2016 the patient remains on a surgical floor. The patient still has an NG tube in place. Doppler was considerably high. Abdomen remains somewhat distended and the patient will be taken to the operating room for an explanation. The patient is dry heaving and she is quite nauseated. No cough. No sputum production. No chest that is. No wheezing. Would consider been negative. Echocardiogram shows no evidence of endocarditis. On 09/23/2016, patient is status post expiratory laparotomy and extensive lysis of adhesions with evacuation of food bezoar, small bowel resection, repair of incarcerated incisional hernia, and we have been seeing her for cavitary lesions in both lungs, felt to be likely either metastatic or septic emboli. These are to be addressed on an outpatient basis when the patient is discharged home eventually. No active pulmonary symptoms at present. CBC was reviewed basic metabolic profile was also noted. She was seen again today 09/24/2016 in follow-up on the surgical floor. She is awake and alert in no acute distress. She's been up ambulating in the hallway without distress. She denies any shortness of breath, cough or congestion. She is doing well with her incentive spirometer. She is maintaining good O2 saturations in the high 90s on room air. She is afebrile. Her hemoglobin is stable at 9.0. Her electrolytes are within normal limits. Objective - Vital Signs Vital signs: Vital Signs Temp 98.3 F 09/24/16 07:00 Pulse 98 09/24/16 07:00 Resp 16 09/24/16 07:00 BP 156/78 09/24/16 07:00 Pulse Ox 98 09/24/16 07:00 Intake & Output 09/23/16 09/24/16 09/24/16 18:59 06:59 18:59 Intake Total 850 100 Output Total 5 Balance 850 95 Intake: IV 850 0.9% NaCl with KCl 40 Meq 400 /l 1,000 ml @ 100 mls/hr IV .Q10H [facility] Rx#: [id number] Magnesium Sulfate-D5w Pmx 300 1 gm In Dextrose/Water 1 100ml.bag @ 100 mls/hr IVPB Q1H [facility] Rx#: [id number] Piperacillin-Tazobactam 3 50 .375 gm In Dextrose/Water 1 50ml.bag @ 12.5 mls/hr IVPB Q8HR [facility] Rx#: [id number] Sodium Ferric Gluconat- 100 Sucrose 125 mg In Sodium Chloride 0.9% 100 ml @ 100 mls/hr IVPB DAILY [facility] Rx#:[id number] Oral 100 Output: Drainage 5 Abdomen 5 Other: Voiding Method Toilet # Voids 5 - Exam GENERAL EXAM: Alert, active, comfortable in no apparent distress. HEAD: Normocephalic. EYES: Normal reaction of pupils, equal size. NOSE: Clear with pink turbinates. THROAT: No erythema or exudates. NECK: No masses, no JVD. CHEST: No chest wall deformity. LUNGS: Equal air entry with no crackles, wheeze, rhonchi or dullness. CVS: S1 and S2 normal with no audible mumurs, regular rhythm. ABDOMEN: Dressing dry and intact. CATHRYN drain in place, normal bowel sounds, no guarding or rigidity. SPINE: No scoliosis or deformity SKIN: No rashes CENTRAL NERVOUS SYSTEM: No focal deficits, tone is normal in all 4 extremities. Extremities: There is no significant peripheral edema. No clubbing, no cyanosis. Peripheral pulses are intact. - Labs CBC & Chem 7: 09/24/16 07:38 09/24/16 07:38 Labs: Abnormal Lab Results - Last 24 Hours (Table) 09/23/16 09/23/16 09/23/16 Range/Units 11:33 17:26 23:47 RBC (3.80-5.40) m/uL Hgb (11.4-16.0) gm/dL Hct (34.0-46.0) % BUN (7-17) mg/dL Glucose (74-99) mg/dL POC Glucose (mg/dL) 297 H 275 H 226 H (75-99) mg/dL Calcium (8.4-10.2) mg/dL Magnesium (1.6-2.3) mg/dL AST (14-36) U/L Total Protein (6.3-8.2) g/dL Albumin (3.5-5.0) g/dL 09/24/16 09/24/16 09/24/16 Range/Units 05:46 07:38 07:38 RBC 3.11 L (3.80-5.40) m/uL Hgb 9.0 L (11.4-16.0) gm/dL Hct 26.9 L (34.0-46.0) % BUN <2 L (7-17) mg/dL Glucose 187 H (74-99) mg/dL POC Glucose (mg/dL) 220 H (75-99) mg/dL Calcium 8.2 L (8.4-10.2) mg/dL Magnesium 1.4 L (1.6-2.3) mg/dL AST 12 L (14-36) U/L Total Protein 4.9 L (6.3-8.2) g/dL Albumin 2.5 L (3.5-5.0) g/dL Assessment and Plan Plan: Impression: 1 bilateral pulmonary lesions with 2 a cavitating disease involving the right lung, largest being 1.4 cm in size. Rule out metastatic poorly lesions with early cavitation, rule out septic emboli. Tuberculosis felt to be less likely. Other necrotizing pneumonia are felt to be less likely specially the patient is not acting septic at all. Vasculitis is also less likely taken in account the patient's clinical circumstances. Note that a CAT scan of the chest that was done back in April 2016 showed no abnormalities in the upper lobes. 2 renal cell carcinoma status post partial nephrectomy on the left 3 small bowel obstruction, status post exploratory laparotomy with extensive lysis of adhesions and evacuation of over 6 feet of incarcerated food bezoar involving mid to distal jejunum and small bowel resection mid jejunum, repair of incarcerated incisional hernia. 4 COPD 5 coronary artery disease 6 history of recent urine tract infection force the patient was hospitalized back in April 2016 and the patient was found to have an ESBL producing E. coli requiring inpatient and then outpatient IV antibiotics utilizing a PICC line and IV Invanz 7 previous myocardial infarction 8 peripheral neuropathy 9 hypertension 10 restless leg syndrome 11 chronic back pain. 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 Plan: The patient was seen and evaluated by Dr. Sunshine. She is stable from the pulmonary standpoint. The plan is for outpatient workup regarding to the cavitary lesions and pulmonary nodules. She will follow-up in our office in 1- 2 weeks' time. We'll repeat a chest x-ray then. He would also benefit from full pulmonary function testing to evaluate the severity of her COPD and make recommendations for her maintenance medications. She is again educated regarding the importance of complete smoking cessation. NicoDerm patches in place. She is also educated regarding the increased use of the incentive spirometer and cough and deep breathing exercises.
[2016-09-24] MEDS: SODIUM FERRIC GLUCONAT-SUCROSE 125 MG in SODIUM CHLORIDE 0.9% 100 ML IVPB SCH (11:32)
[2016-09-24 12:09] LABS: Glucose,Whole Blood 322 mg/dL (75-99)
[2016-09-24] MEDS ORDERED: INSULIN GLARGINE 100 UNIT/ML 10 ML VIAL SQ SCH ×4 (12:30→22:00)
--- NOTE | 2016-09-24 14:37 | P.PN ---
Subjective 56-year-old female being seen on rounds is up ambulating in the hallway. Patient states pain medication effective for pain control. Patient is tolerating the diet patient denies any chest pain or shortness of breath. Patient currently is on room air keeping a sat 95%. Hemoglobin stable at 9. Electrolytes are within normal limits. Patient states she's anxious to be discharged home. Infectious diseases recommendations reviewed. The recommending that at the time of discharge patient to be discharged home on Augmentin 875 to complete a 7 day course of therapy. Patient is postop on September 19 small bowel resection and a repair of an incarcerated incisional hernia Objective - Vital Signs Vital signs: Vital Signs Temp 98.3 F 09/24/16 07:00 Pulse 98 09/24/16 07:00 Resp 16 09/24/16 07:00 BP 156/78 09/24/16 07:00 Pulse Ox 98 09/24/16 07:00 Intake & Output 09/23/16 09/24/16 09/24/16 18:59 06:59 18:59 Intake Total 850 100 100 Output Total 5 Balance 850 95 100 Intake: IV 850 0.9% NaCl with KCl 40 Meq 400 /l 1,000 ml @ 100 mls/hr IV .Q10H [facility] Rx#: [id number] Magnesium Sulfate-D5w Pmx 300 1 gm In Dextrose/Water 1 100ml.bag @ 100 mls/hr IVPB Q1H [facility] Rx#: [id number] Piperacillin-Tazobactam 3 50 .375 gm In Dextrose/Water 1 50ml.bag @ 12.5 mls/hr IVPB Q8HR [facility] Rx#: [id number] Sodium Ferric Gluconat- 100 Sucrose 125 mg In Sodium Chloride 0.9% 100 ml @ 100 mls/hr IVPB DAILY [facility] Rx#:[id number] Oral 100 100 Output: Drainage 5 Abdomen 5 Other: Voiding Method Toilet # Voids 5 - Exam Physical exam A 56-year-old female pleasant cooperative oriented 3. Up ambulating in the room Lungs essentially clear with adequate air movement sats are documented 96% on room air Heart S1-S2 audible regular denying chest pain Abdomen soft surgical dressing abdominal dry with a Sundar-Cortez drain in place serous drainage noted in the bulb states passing gas no nausea no vomiting stool noted extremities no evidence of edema bilaterally - Labs CBC & Chem 7: 09/24/16 07:38 09/24/16 07:38 Labs: Abnormal Lab Results - Last 24 Hours (Table) 09/23/16 09/23/16 09/24/16 Range/Units 17:26 23:47 05:46 RBC (3.80-5.40) m/uL Hgb (11.4-16.0) gm/dL Hct (34.0-46.0) % BUN (7-17) mg/dL Glucose (74-99) mg/dL POC Glucose (mg/dL) 275 H 226 H 220 H (75-99) mg/dL Calcium (8.4-10.2) mg/dL Magnesium (1.6-2.3) mg/dL AST (14-36) U/L Total Protein (6.3-8.2) g/dL Albumin (3.5-5.0) g/dL 09/24/16 09/24/16 09/24/16 Range/Units 07:38 07:38 11:51 RBC 3.11 L (3.80-5.40) m/uL Hgb 9.0 L (11.4-16.0) gm/dL Hct 26.9 L (34.0-46.0) % BUN <2 L (7-17) mg/dL Glucose 187 H (74-99) mg/dL POC Glucose (mg/dL) 322 H (75-99) mg/dL Calcium 8.2 L (8.4-10.2) mg/dL Magnesium 1.4 L (1.6-2.3) mg/dL AST 12 L (14-36) U/L Total Protein 4.9 L (6.3-8.2) g/dL Albumin 2.5 L (3.5-5.0) g/dL Assessment and Plan Plan: Impression Present on admission abdominal pain suspect due to a partial small bowel obstruction Chronic nicotine dependency greater than a 40 year history 1 pack a day COPD no evidence of acute exacerbation History of renal cell carcinoma CAT scan of the chest show cavitary lesion lung CAT scan of the chest bilateral pulmonary nodules Persistent abdominal nausea emesis abdominal distention relieved with a nasal gastric tube 400 mL obtained after insertion done on September 17 Echocardiogram done on September 16 left ventricular systolic function low normal with an EF between 50 and 55%. Depressive disorder nonspecified History of a prior CVA with mild residual left-sided weakness UTI in April 2016 found to have ESBL with E. coli Chronic back pain Postoperative Diagnosis: , frozen abdomen small bowel, bowel obstruction with 6 feet of food bezoar noted Procedure(s) Performed: On 09/19/2016 1. Open exploratory laparotomy 2. Extensive lysis of adhesions over 3-1/2 hours. 3. Evacuation of over 6 feet of incarcerated food bezoar involving mid to distal jejunum 4. Small bowel resection, mid jejunum 5. Repair of incarcerated incisional hernia epigastrium 4 cm involving omentum 6. Abdominal washout 6 L. 7. Placement of round up and 19 CATHRYN drain via right lower quadrant Plan From a surgical perspective patient is clear for discharge follow-up in the Dr. Nichols office in one week pain control DVT and GI prophylaxis Advance the diet Increase activity ambulate in [place] at least 3 times a day The above dictated assessment and findings were discussed with dr Nichols Impression and the plan of care have been dictated as directed. Shaina Dockery nurse practitioner acting as a scribe for Magdalena
[2016-09-24] MEDS: SCOPOLAMINE 1.5MG/72HR PATCH TRANSDERM SCH (14:42)
[2016-09-24 15:05] LABS: Glucose,Whole Blood 358 mg/dL (75-99)
[2016-09-24] MEDS ORDERED: INSULIN LISPRO (humaLOG) 300 UNIT/3 ML VIAL SQ ONE (15:05)
[2016-09-24] MEDS: INSULIN GLARGINE 100 UNIT/ML 10 ML VIAL SQ SCH (15:06)
[2016-09-24 16:42] LABS: Glucose,Whole Blood 290 mg/dL (75-99)
--- NOTE | 2016-09-24 17:46 | P.PN ---
Subjective Date of service 09/24/2016. Progress note being dictated for Dr. Hill. Interval history: This is a 56-year-old female admitted with small bowel obstruction, status post exploratory laparotomy with extensive lysis of adhesions, evacuation of incarcerated food bezoar, small bowel resection, repair of incarcerated incisional hernia, and multiple other medical issues. Continues on Zosyn. Pain management converted to oral Ultram, pain previously controlled on IV Dilaudid. NG tube has been discontinued, passing both flatus and bowel movement. Diet advanced this morning to soft foods, consistent carb, tolerated well with no nausea vomiting or diarrhea. Blood sugars elevated. Denies chest pain, palpitations or increasing shortness of breath. Objective - Vital Signs Vital signs: Vital Signs Temp 98.3 F 09/24/16 07:00 Pulse 98 09/24/16 07:00 Resp 16 09/24/16 07:00 BP 156/78 09/24/16 07:00 Pulse Ox 98 09/24/16 07:00 Intake & Output 09/23/16 09/24/16 09/24/16 18:59 06:59 18:59 Intake Total 030 849 0241 Output Total 5 Balance 571 08 7734 Intake: IV 850 1100 0.9% NaCl with KCl 40 Meq 400 500 /l 1,000 ml @ 100 mls/hr IV .Q10H DURGA Rx#: [id number] Magnesium Sulfate-D5w Pmx 300 1 gm In Dextrose/Water 1 100ml.bag @ 100 mls/hr IVPB Q1H DURGA Rx#: [id number] Magnesium Sulfate-D5w Pmx 200 1 gm In Dextrose/Water 1 100ml.bag @ 100 mls/hr IVPB Q1H [facility]GA Rx#: [id number] Piperacillin-Tazobactam 3 50 50 .375 gm In Dextrose/Water 1 50ml.bag @ 12.5 mls/hr IVPB Q8HR [facility]GA Rx#: [id number] Sodium Ferric Gluconat- 100 100 Sucrose 125 mg In Sodium Chloride 0.9% 100 ml @ 100 mls/hr IVPB DAILY DURGA Rx#:[id number] Sodium Phosphate 10 mmol 250 In Sodium Chloride 0.9% 250 ml @ 125 mls/hr IVPB Q2H DURGA Rx#:[id number] Oral 100 100 Output: Drainage 5 Abdomen 5 Other: Voiding Method Toilet # Voids 5 - Exam PHYSICAL EXAM: VITAL SIGNS: As above GENERAL: [Lying in bed, no acute distress] HEENT: [Pupils equal conjunctiva normal. NG tube present] NECK: [Supple, no JVD] RESPIRATORY EFFORT:[Normal] LUNGS: [Essentially clear, bilateral bases diminished, occasional rhonchi, wheezing or crackles] CARDIOVASCULAR[regular S1-S2, no murmurs rubs or gallops no edema] GI: [Abdomen soft, status post surgery, positive bowel sounds, CATHRYN present with minimal serous drainage PSYCH: [Alert and oriented -3, mood and affect normal. NEURO: [No focal deficits, moves all 4 extremities, strength and sensation grossly intact] Microbiology 09/16/16 21:15 Blood Blood Culture - Final No Growth after 144 hours 09/16/16 08:00 Blood Blood Culture - Final No Growth after 144 hours 09/16/16 21:45 Urine,Voided Urine Culture - Final - Labs CBC & Chem 7: 09/24/16 07:38 09/24/16 07:38 Labs: Abnormal Lab Results - Last 24 Hours (Table) 09/23/16 09/24/16 09/24/16 Range/Units 23:47 05:46 07:38 RBC 3.11 L (3.80-5.40) m/uL Hgb 9.0 L (11.4-16.0) gm/dL Hct 26.9 L (34.0-46.0) % BUN (7-17) mg/dL Glucose (74-99) mg/dL POC Glucose (mg/dL) 226 H 220 H (75-99) mg/dL Calcium (8.4-10.2) mg/dL Magnesium (1.6-2.3) mg/dL AST (14-36) U/L Total Protein (6.3-8.2) g/dL Albumin (3.5-5.0) g/dL 09/24/16 09/24/16 09/24/16 Range/Units 07:38 11:51 15:00 RBC (3.80-5.40) m/uL Hgb (11.4-16.0) gm/dL Hct (34.0-46.0) % BUN <2 L (7-17) mg/dL Glucose 187 H (74-99) mg/dL POC Glucose (mg/dL) 322 H 358 H (75-99) mg/dL Calcium 8.2 L (8.4-10.2) mg/dL Magnesium 1.4 L (1.6-2.3) mg/dL AST 12 L (14-36) U/L Total Protein 4.9 L (6.3-8.2) g/dL Albumin 2.5 L (3.5-5.0) g/dL 09/24/16 Range/Units 16:40 RBC (3.80-5.40) m/uL Hgb (11.4-16.0) gm/dL Hct (34.0-46.0) % BUN (7-17) mg/dL Glucose (74-99) mg/dL POC Glucose (mg/dL) 290 H (75-99) mg/dL Calcium (8.4-10.2) mg/dL Magnesium (1.6-2.3) mg/dL AST (14-36) U/L Total Protein (6.3-8.2) g/dL Albumin (3.5-5.0) g/dL Assessment and Plan Plan: 1. [Small bowel obstruction, status post exploratory laparotomy, open, with lysis of adhesions and evacuation of 6 feet of incarcerated food bezoar, repair of incarcerated incisional hernia, abdominal washout ]. 2. [Sepsis of undetermined etiology with possible septic emboli with cavitary lesions in bilateral lung, present on admission]. Further workup outpatient with pulmonary. 3. [Diabetes mellitus type 2, uncontrolled without evidence of DKA, Hemoglobin A1c 14 4. [Possible starvation ketoacidosis secondary to vomiting]. 5. [Increased d-dimer without evidence of pulmonary embolism]. 6. [History of intermittent chronic asthma, COPD]. 7. [History of CVA, TIA]. 8. Gastroesophageal reflux disease 9. Hypertension 10. Hyperlipidemia 11. CAD, history of [place] 12. Hypothyroidism 13. History of left kidney cancer with partial nephrectomy 14. Peripheral neuropathy secondary to diabetes mellitus II 15. Chronic back pain with degenerative joint disease 16. History of ESBL 17. History of anxiety and depression 18. continued ongoing nicotine dependence 19. History of THC. 20. Hypomagnesemia Plan: Continue on current medication regime, GI and DVT prophylaxis, broad spectrum antibiotics, monitoring and symptomatic treatment. Diet changed to consistent carb/ soft, insulin sliding scale administration schedule changed to before meals and at bedtime , Lantus to be given as ordered. Close monitoring of Accu-Cheks. Pain management recently changed from IV push Dilaudid to oral tramadol, monitor pain control overnight. Electrolyte supplements ordered, repeat lites at 1600. Continue with aggressive pulmonary toileting .Antibiotics as per infectious disease. Discharge planning in progress for tomorrow pending pain and blood sugars controlled. Further recommendations to follow. Prognosis guarded given multiple complex medical issues. The impression and plan of care has been dictated as directed. : I performed a H&P examination of this patient and discussed the same with the dictator. I agree with the dictator's note. Any additional findings/opinions/ etc. will be noted.
--- NOTE | 2016-09-24 20:25 | P.PN ---
Progress Note - Text Patient seen and -reevaluated this evening. She has moderate drainage along the inferior portion of her incision. She is having bowel movements and passing much flatus. I personally changed her dressings with waterproof foam tape. Patient kept for uncontrolled blood sugars by medicine. Patient is clear from surgical standpoint for discharge when medically cleared.
[2016-09-24] MEDS ORDERED: SODIUM CHLORIDE 0.9% 1,000 ML IV SCH (20:30)
[2016-09-24 20:51] LABS: Glucose,Whole Blood 94 mg/dL (75-99)
[2016-09-24] MEDS: traMADol 50 MG TAB PO SCH ×2 (21:48→21:55)
[2016-09-24] MEDS: ONDANSETRON 4 MG/2 ML VIAL IVP PRN (22:05)
[2016-09-25] MEDS: PIPERACILLIN-TAZOBACTAM 3.375 GM in DEXTROSE/WATER 1 50ML.BAG IVPB SCH ×2 (01:10→09:05)
[2016-09-25] MEDS: METOCLOPRAMIDE 5 MG/ML 2 ML VIAL IVP SCH ×3 (01:10→13:09)
[2016-09-25] MEDS ORDERED: INSULIN GLARGINE 100 UNIT/ML 10 ML VIAL SQ SCH (07:30)
--- NOTE | 2016-09-25 07:54 | PN ---
DATE OF SERVICE: 09/24/2016 This is a 56-year-old woman who was admitted with small bowel obstruction and exploratory laparotomy, is being closely monitored. The patient has low blood sugars at this time. Seen and evaluated the patient with the nurse practitioner. Please refer to the nurse practitioner's notes and impressions document as ascribed for information. Will monitor the patient closely. Further recommendations to follow.
[2016-09-25 08:02] LABS: Glucose,Whole Blood 238 mg/dL (75-99)
[2016-09-25 08:41] VITALS: BP 142/80; PULSE 102; RESP 18; TEMP 98.3
[2016-09-25] MEDS: INSULIN GLARGINE 100 UNIT/ML 10 ML VIAL SQ SCH (08:52)
[2016-09-25] MEDS: INSULIN LISPRO (humaLOG) 300 UNIT/3 ML VIAL SQ SCH ×2 (08:53→13:34)
[2016-09-25] MEDS: NICOTINE 21MG/24HR PATCH TRANSDERM SCH (08:54)
[2016-09-25] MEDS: FAMOTIDINE 20 MG/2 ML VIAL IVP SCH (08:54)
[2016-09-25] MEDS: HEPARIN SODIUM,PORCINE 5,000 UNIT/ML 1 ML VIAL SQ SCH (08:54)
[2016-09-25] MEDS ORDERED: ASPIRIN 81 MG CHEW PO SCH (09:00)
[2016-09-25] MEDS: traMADol 50 MG TAB PO SCH ×2 (09:03→13:15)
--- NOTE | 2016-09-25 09:35 | P.OP ---
Date of Procedure: 09/20/16 Description of Procedure: SURGEON: BRIDGET ARRINGTON MD PREOPERATIVE DIAGNOSIS: 1. Complete small bowel obstruction. 2. History of chronic constipation. 3. Previous history of bowel obstruction. 4. Peritonitis, generalized. 5. Poorly controlled diabetes type 2, insulin-dependent. 6. History of diabetic neuropathy. 7. Previous history of myocardial infarction. 8. History of renal cell carcinoma. 9. Previous history of cerebrovascular accident. 10. Chronic obstructive pulmonary disease. 11. Hypertensive heart disease. 12. Gastroesophageal reflux disease. 13. Asthma. 14. Hypothyroidism. 15. Previous history of sepsis. POSTOPERATIVE DIAGNOSIS: 1. Complete small bowel obstruction. 2. History of chronic constipation. 3. Previous history of bowel obstruction. 4. Peritonitis, generalized. 5. Poorly controlled diabetes type 2, insulin-dependent. 6. History of diabetic neuropathy. 7. Previous history of myocardial infarction. 8. History of renal cell carcinoma. 9. Previous history of cerebrovascular accident. 10. Chronic obstructive pulmonary disease. 11. Hypertensive heart disease. 12. Gastroesophageal reflux disease. 13. Asthma. 14. Hypothyroidism. 15. Previous history of sepsis. 16. Multiple intra-abdominal adhesions with frozen abdomen. 17. Retained food bezoar of 6 feet. 18. Incarcerated incisional hernia, along epigastrium. PROCEDURES PERFORMED: 1. Open exploratory laparotomy 2. Extensive lysis of adhesions over 3-1/2 hours. 3. Evacuation of over 6 feet of incarcerated food bezoar involving mid to distal jejunum 4. Small bowel resection, mid jejunum with primary anastomosis. 5. Repair of incarcerated incisional hernia epigastrium 4 cm involving omentum 6. Abdominal washout 6 L. 7. Placement of round #19 CATHRYN drain via right lower quadrant ANESTHESIA: GETA, local (30 mL Marcaine with Epinephrine), epidural ESTIMATED BLOOD LOSS: 50 mL. SPECIMENS REMOVED: other (Food bezoar) COMPLICATIONS: None. Operative Findings: 1. Frozen abdomen involving the mid jejunum dilated. 2. Ileum completely decompressed. 3. Findings of hepaticojejunostomy from previous open chevron incision and common bile duct repair 4. Retained incarcerated food bezoar over 6 feet involving the jejunum via decompressive enterotomy 5. Incarcerated incisional hernia 4 cm incision involving the epigastrium 6. Abdominal washout over 6 L normal saline. 7. CATHRYN drain along the right lower quadrant. 8. After 3-1/2-4 hours extensive lysis of adhesions and evacuation of incarcerated food bezoar, small bowel along jejunum with free flowing effluent. 9. Patient reported immediate improvement of abdominal pain in the recovery area. INDICATIONS: The patient is a 56-year-old female who presents with chronic constipation. She then developed bowel obstruction with diagnostic imaging confirming findings. She also developed increased abdominal pain and peritonitis. Surgical intervention was described as conservative measures failed. Benefits and risks of surgical intervention was described including however not limited to bleeding, infection, need for further surgery, small bowel resection, cosmetic deformity, and pain for which informed consent was obtained. DESCRIPTION: The patient was brought to the operating room. After general induction, the abdomen was prepped and draped in a standard sterile fashion using ChloraPrep. Nasogastric tube had been present. A Mccann catheter was placed. Ioban draping was also placed. A time-out protocol was confirmed with surgical team regarding the patient's name including procedure to be performed. Preoperative antibiotics were administered. Bilateral SCDs were placed. A midline abdominal incision was placed from the epigastrium down to the pubis. The abdomen was entered carefully using Metzenbaum scissor. Careful entry into the abdomen was performed using blunt dissection including sharp dissection using the Metzenbaum scissors. Immediately, frozen abdomen with multiple interloop adhesions were found. Additionally, a 4 cm incarcerated incisional hernia along the epigastrium was found involving the omentum and small bowel. The omentum and small bowel was carefully mobilized to reduce the incisional hernia. Along the lower abdomen, the small bowel was adherent. Sharp lysis of adhesions was performed with a Metzenbaum scissors. Multiple areas of chronic small bowel obstruction along the ileum and jejunum was found. Extensive lysis of adhesions was performed throughout the small bowel whereby along the proximal bowel, a hepaticojejunostomy was identified. Extensive lysis of adhesions occurred well over 3+ hours. Retrograde inspection of the small bowel was performed to the ligament of Treitz. All adhesive bands were addressed using a Metzenbaum scissor including electro-Bovie cautery. Proximal small bowel dilatation was still present. A thick impacted food bezoar was palpated throughout the jejunum over 6 feet. The small bowel was ran at least another 2 more times proximally and distally to confirm all lysis of adhesions. No spillage had occurred during the case. Next, a decompressive enterotomy was performed along the distal jejunum whereby immediately thick fibrous spinach including broccoli with a green beans was evacuated from the small bowel as a cause of her bowel obstruction. The small bowel was resected using linear dot with a primary anastomosis in a side-to- side fashion. A 3-0 silk stay suture was placed for anti-tension stitch. The abdominal cavity was copiously irrigated with 6 liters of warm normal saline solution. Aerobic and anaerobic cultures were sent. A #19 round CATHRYN drain was placed along the right lateral abdominal wall given moderate fluid and irrigation which was used during the case. A 2-0 nylon drain stitch was placed. A CATHRYN bulb was placed. Her incisional ventral hernia was repaired primarily using double-stranded 0 PDS. Similarly, the abdomen was closed using double-stranded 0 PDS. Around the umbilicus was reapproximated using 3-0 Vicryl. The rest of the incisions were reapproximated using 3-0 Vicryl and then stainless steel skin dot were used for closure of the rest of the abdomen. The subcutaneous tissue was copiously irrigated using warm normal saline solution. Antibiotic Optfioam dressing was placed along the midline and around the CATHRYN insertion site. At the end of the procedure, needle, sponge, and instrument count had been verified correct by neurosurgical nurse practitioner. The patient had tolerated the procedure well and was taken to the postanesthesia care unit in stable condition with Mccann catheter in place. An abdominal binder was placed. The sponge instrument count and needle counts were verified correct by neurosurgical nurse practitioner. The patient was awoken from anesthesia in stable condition. The patient's family were pleased with the level of care.
[2016-09-25 12:35] LABS: Glucose,Whole Blood 226 mg/dL (75-99)
--- NOTE | 2016-09-25 14:50 | P.PN ---
Subjective 56 year old female being seen on rounds is currently up ambulating in the hallway. Patient states anxious to be discharged home was tolerating a diet passing gas. With episodes of stooling Surgical dressing was changed with waterproof foam tape yesterday by the surgeon. Hyperglycemic episodes are being addressed by medicine. From a surgical perspective patient is medically cleared to be discharged Objective - Vital Signs Vital signs: Vital Signs Temp 98.3 F 09/25/16 07:00 Pulse 102 H 09/25/16 07:00 Resp 18 09/25/16 07:00 BP 142/80 09/25/16 07:00 Pulse Ox 97 09/25/16 07:00 Intake & Output 09/24/16 09/25/16 09/25/16 18:59 06:59 18:59 Intake Total 1200 Balance 1200 Intake: IV 1100 0.9% NaCl with KCl 40 Meq 500 /l 1,000 ml @ 100 mls/hr IV .Q10H [facility]GA Rx#: [id number] Magnesium Sulfate-D5w Pmx 200 1 gm In Dextrose/Water 1 100ml.bag @ 100 mls/hr IVPB Q1H [facility]GA Rx#: [id number] Piperacillin-Tazobactam 3 50 .375 gm In Dextrose/Water 1 50ml.bag @ 12.5 mls/hr IVPB Q8HR [facility]GA Rx#: [id number] Sodium Ferric Gluconat- 100 Sucrose 125 mg In Sodium Chloride 0.9% 100 ml @ 100 mls/hr IVPB DAILY DURGA Rx#:[id number] Sodium Phosphate 10 mmol 250 In Sodium Chloride 0.9% 250 ml @ 125 mls/hr IVPB Q2H DURGA Rx#:[id number] Oral 100 Other: Voiding Method Toilet Toilet # Voids 3 1 # Bowel Movements 4 - Exam Physical exam A 56-year-old female pleasant cooperative oriented 3. Up ambulating in the room Lungs essentially clear with adequate air movement sats are documented 96% on room air Heart S1-S2 audible regular denying chest pain Abdomen soft surgical dressing abdominal dry with a Sundar-Cortez drain in place serous drainage noted in the bulb states passing gas no nausea no vomiting stool noted extremities no evidence of edema bilaterally - Labs CBC & Chem 7: 09/24/16 07:38 09/24/16 07:38 Labs: Abnormal Lab Results - Last 24 Hours (Table) 09/24/16 09/24/16 09/25/16 Range/Units 15:00 16:40 07:58 POC Glucose (mg/dL) 358 H 290 H 238 H (75-99) mg/dL 09/25/16 Range/Units 12:32 POC Glucose (mg/dL) 226 H (75-99) mg/dL Assessment and Plan Plan: Impression Present on admission abdominal pain suspect due to a partial small bowel obstruction Chronic nicotine dependency greater than a 40 year history 1 pack a day COPD no evidence of acute exacerbation History of renal cell carcinoma CAT scan of the chest show cavitary lesion lung CAT scan of the chest bilateral pulmonary nodules Persistent abdominal nausea emesis abdominal distention relieved with a nasal gastric tube 400 mL obtained after insertion done on September 17 Echocardiogram done on September 16 left ventricular systolic function low normal with an EF between 50 and 55%. Depressive disorder nonspecified History of a prior CVA with mild residual left-sided weakness UTI in April 2016 found to have ESBL with E. coli Chronic back pain Postoperative Diagnosis: , frozen abdomen small bowel, bowel obstruction with 6 feet of food bezoar noted Procedure(s) Performed: On 09/19/2016 1. Open exploratory laparotomy 2. Extensive lysis of adhesions over 3-1/2 hours. 3. Evacuation of over 6 feet of incarcerated food bezoar involving mid to distal jejunum 4. Small bowel resection, mid jejunum 5. Repair of incarcerated incisional hernia epigastrium 4 cm involving omentum 6. Abdominal washout 6 L. 7. Placement of round up and 19 CATHRYN drain via right lower quadrant Plan From a surgical perspective patient is clear for discharge follow-up in the Dr. Nichols office in one week The above dictated assessment and findings were discussed with dr Nichols Impression and the plan of care have been dictated as directed. Shaina Dockery nurse practitioner acting as a scribe for Magdalena
[2016-09-25] MEDS ORDERED: ATORVASTATIN 40 MG TAB PO SCH (21:00)
--- NOTE | 2016-09-25 23:40 | P.DS ---
Providers Date of admission: 09/16/16 11:24 Expected date of discharge: 09/25/16 Attending physician: Danielle Woods Consults: 09/16/16 16:03 Consult Physician Routine Consulting Provider: Gage Mills Consult Reason/Comments: sepsis Do you want consulting provider notified?: Yes Dr. Koenig, Surgery Primary care physician: Alexandre Dupont [facility] Course: Final Diagnoses : 1. [Small bowel obstruction, status post exploratory laparotomy, open, with lysis of adhesions and evacuation of 6 feet of incarcerated food bezoar, repair of incarcerated incisional hernia, abdominal washout ]. 2. Possible septic emboli with cavitary lesions in bilateral lung, present on admission] Further workup outpatient with pulmonary. 3. [Diabetes mellitus type 2, uncontrolled without evidence of DKA, Hemoglobin A1c 14 4. [Possible starvation ketoacidosis secondary to vomiting]. 5. [Increased d-dimer without evidence of pulmonary embolism]. 6. [History of intermittent chronic asthma, COPD]. 7. [History of CVA, TIA]. 8. Gastroesophageal reflux disease 9. Hypertension 10. Hyperlipidemia 11. CAD, history of [place] 12. Hypothyroidism 13. History of left kidney cancer with partial nephrectomy 14. Peripheral neuropathy secondary to diabetes mellitus II 15. Chronic back pain with degenerative joint disease 16. History of ESBL 17. History of anxiety and depression 18. continued ongoing nicotine dependence 19. History of THC. 20. Hypomagnesemia Hospital course: This is a 56-year-old female admitted with small bowel obstruction and multiple other medical issues. Evaluated by surgery and underwent exploratory laparotomy with extensive lysis of adhesions, evacuation of incarcerated food bezoar, small bowel resection, repair of incarcerated incisional hernia, and multiple other medical issues. Maintained on Zosyn as per ID. evaluated by pulmonary. CT reported no evidence for PE, multifocal bilateral nodular infiltrates with some cavitary lesions present with prominent in upper lungs, suggestive of septic emboli to infectious etiology; Further pulmonary workup outpatient.significant clinical improvement .Cleared for discharge by both infectious disease and surgery. Patient is being discharged home with home care in a stable condition with guarded prognosis. Patient Condition at Discharge: Stable Plan - Discharge Summary New Discharge Prescriptions: Albuterol Inhaler [Ventolin Hfa Inhaler] 1 - 2 puff INHALATION Q6HR PRN #1 inhaler PRN Reason: Shortness Of Breath Amoxic-Pot Clav 875-125Mg [Augmentin 875-125] 1 tab PO Q12HR #10 tablet Budesonide-Formot 160-4.5 Mcg [Symbicort 160-4.5 Mcg Inhaler] 2 puff INHALATION BID #1 inhaler Nicotine 21Mg/24Hr Patch [Habitrol] 1 patch TRANSDERM DAILY #30 patch traMADol HCl [Ultram] 50 mg PO QID #30 tab Discharge Medication List Clopidogrel [Plavix] 75 mg PO DAILY 04/28/15 [History] Levothyroxine Sodium [Synthroid] 200 mcg PO DAILY 04/28/15 [History] Omeprazole [PriLOSEC] 40 mg PO DAILY 04/28/15 [History] Venlafaxine HCl ER [Effexor XR] 150 mg PO DAILY 04/28/15 [History] Ergocalciferol [Vitamin D2 (DRISDOL)] 50,000 unit PO TU 10/11/15 [History] Insulin Glargine,Hum.rec.anlog [Lantus Solostar] 20 unit SQ W/BRKFST 07/05/16 [ History] Aspirin [Adult Low Dose Aspirin EC] 81 mg PO DAILY 09/04/16 [History] Atorvastatin [Lipitor] 40 mg PO HS 09/04/16 [History] Amoxic-Pot Clav 875-125Mg [Augmentin 875-125] 1 tab PO Q12HR #10 tablet [Rx] Insulin Glulisine [Apidra] 10 unit SQ AC-BID #0 09/24/16 [Rx] Nicotine 21Mg/24Hr Patch [Habitrol] 1 patch TRANSDERM DAILY #30 patch 09/24/16 [ Rx] Albuterol Inhaler [Ventolin Hfa Inhaler] 1 - 2 puff INHALATION Q6HR PRN #1 inhaler 09/25/16 [Rx] Budesonide-Formot 160-4.5 Mcg [Symbicort 160-4.5 Mcg Inhaler] 2 puff INHALATION BID #1 inhaler 09/25/16 [Rx] Insulin Glargine,Hum.rec.anlog [Lantus Solostar] 30 unit SQ HS #0 09/25/16 [Rx] traMADol HCl [Ultram] 50 mg PO QID #30 tab 04/12/17 [Rx] Follow up Appointment(s)/Referral(s): Yamile Sunshine MD [STAFF PHYSICIAN] - 10/07/16 10:00 am (for workup regarding pulmonary nodules, cavitary lesions) Kiah Schroeder MD [Primary Care Provider] - 09/30/16 1:40 pm Gage Mills MD [STAFF PHYSICIAN] - As Needed (FOLLOW UP NEEDED ONLY IF ANY PROBLEMS.) Piedad Nichols MD [STAFF PHYSICIAN] - 10/01/16 2:40 pm (Please call to confirm time) [facility], [NON-STAFF] - Ambulatory/Diagnostic Orders: Complete Blood Count w/diff [LAB.AMB] Time Frame: 3 Days, Location: Determined By Patient Miscellaneous Lab Order [LAB.AMB] Time Frame: 3 Days, Location: Determined By Patient Patient Instructions/Handouts: *Surgery [facility] - Scopalamine Patch Instructions, Sundar-Cortez Drain Care (DC), Bowel Resection (DC), Exploratory Laparotomy (DC) , Hypomagnesemia (GEN), Abdominal Binder (GEN) Activity/Diet/Wound Care/Special Instructions: No lifting of 4 pounds in 4 weeks. Protein shakes at least 2-3 times daily. Diet soft consistent carb Accu-Cheks before meals and at bedtime, maintain log, and take to PCP for further recommendations wound care as per surgery Discharge Disposition: HOME WITH HOME HEALTH SERVICES
== END 2016-09-25 16:25 | disposition home health service (06) | DRG 853 ==
LOC: EC 07:50 → 6SEL 11:24 → 3SUR 09-18 16:13
PROVIDERS: ADMIT Hospitalist; ATTEND Hospitalist
PROC: 0DBA0ZZ Excision of Jejunum, Open Approach (ICD-10-PCS; 2016-09-19)
PROC: 0DN60ZZ Release Stomach, Open Approach (ICD-10-PCS; 2016-09-19)
PROC: 0DCA0ZZ Extirpation of Matter from Jejunum, Open Approach (ICD-10-PCS; 2016-09-19)
PROC: 0DNA0ZZ Release Jejunum, Open Approach (ICD-10-PCS; 2016-09-19)
PROC: 3E1M38Z Irrigation of Peritoneal Cavity using Irrigating Substance, Percutaneous Approach (ICD-10-PCS; 2016-09-19)
PROC: 0WQF0ZZ Repair Abdominal Wall, Open Approach (ICD-10-PCS; principal; 2016-09-19 17:05)
DX: A41.9 Sepsis, unspecified organism (principal); I26.90 Septic pulmonary embolism without acute cor pulmonale; I76 Septic arterial embolism; K65.0 Generalized (acute) peritonitis; E87.2 Acidosis; I95.9 Hypotension, unspecified; E11.42 Type 2 diabetes mellitus with diabetic polyneuropathy; I69.354 Hemiplegia and hemiparesis following cerebral infarction affecting left non-dominant side; K43.0 Incisional hernia with obstruction, without gangrene; E11.65 Type 2 diabetes mellitus with hyperglycemia; T18.3XXA Foreign body in small intestine, initial encounter; E11.43 Type 2 diabetes mellitus with diabetic autonomic (poly)neuropathy; I25.82 Chronic total occlusion of coronary artery; E83.42 Hypomagnesemia; K31.84 Gastroparesis; I25.2 Old myocardial infarction; R00.0 Tachycardia, unspecified; E86.0 Dehydration; E87.6 Hypokalemia; I25.10 Atherosclerotic heart disease of native coronary artery without angina pectoris; T38.3X6A Underdosing of insulin and oral hypoglycemic [antidiabetic] drugs, initial encounter; N20.0 Calculus of kidney; K66.0 Peritoneal adhesions (postprocedural) (postinfection); E89.0 Postprocedural hypothyroidism; T73.0XXA Starvation, initial encounter; J98.4 Other disorders of lung; I11.9 Hypertensive heart disease without heart failure; M43.10 Spondylolisthesis, site unspecified; J45.20 Mild intermittent asthma, uncomplicated; E78.5 Hyperlipidemia, unspecified; K21.9 Gastro-esophageal reflux disease without esophagitis; G25.81 Restless legs syndrome; F12.90 Cannabis use, unspecified, uncomplicated; M47.9 Spondylosis, unspecified; J44.9 Chronic obstructive pulmonary disease, unspecified; G89.29 Other chronic pain; G47.00 Insomnia, unspecified; K59.09 Other constipation; F17.200 Nicotine dependence, unspecified, uncomplicated; F41.9 Anxiety disorder, unspecified; F32.9 Major depressive disorder, single episode, unspecified; Z82.49 Family history of ischemic heart disease and other diseases of the circulatory system; Z79.899 Other long term (current) drug therapy; Z79.82 Long term (current) use of aspirin; Z79.02 Long term (current) use of antithrombotics/antiplatelets; Z79.4 Long term (current) use of insulin; Z90.5 Acquired absence of kidney; Z85.528 Personal history of other malignant neoplasm of kidney; Z88.5 Allergy status to narcotic agent; Z88.2 Allergy status to sulfonamides; Z88.8 Allergy status to other drugs, medicaments and biological substances; Z87.19 Personal history of other diseases of the digestive system; Z86.19 Personal history of other infectious and parasitic diseases; Z87.440 Personal history of urinary (tract) infections; Z91.030 Bee allergy status; Z91.040 Latex allergy status; Z79.1 Long term (current) use of non-steroidal anti-inflammatories (NSAID); Z71.3 Dietary counseling and surveillance; Z71.6 Tobacco abuse counseling; Z80.3 Family history of malignant neoplasm of breast; Z80.49 Family history of malignant neoplasm of other genital organs; Z98.42 Cataract extraction status, left eye; Z98.41 Cataract extraction status, right eye; Z96.1 Presence of intraocular lens; Z90.49 Acquired absence of other specified parts of digestive tract
CPT/HCPCS: 36415; 71020; 71275; 74000; 74020; 74177; 80051; 80053; 81003; 82009; 82150; 82565; 83036; 83540; 83550; 83605; 83690; 83735; 84100; 84484; 84520; 85025; 85379; 85610; 85652; 85730; 86255; 86431; 86850; 86900; 86901; 87040; 87086; 88304; 93005; 93306; 96361; 96365; 96366; 96367; 96375; 96376; 99285

== ENCOUNTER 2016-09-30 01:12 | Inpatient (IN) | payer OTHER ==
[2016-09-30 01:58] LABS: Glucose,Whole Blood 281 mg/dL (75-99)
[2016-09-30] MEDS: SODIUM CHLORIDE 0.9% 500 ML IV SCH ×2 (02:17→03:34)
[2016-09-30 02:19] LABS: Appearance,Urine Clear (Clear); Bilirubin,Urine Negative (Negative); Glucose,Urine (UA) 4+ (Negative); Ketones,Urine Negative (Negative); Leukocyte Esterase,Urine Negative (Negative); Nitrite,Urine Negative (Negative); Protein,Urine Negative (Negative); Specific Gravity,Urine 1.025 (1.001-1.035); UA Billing (MACRO vs. MICRO) CHEM; Urobilinogen,Urine <2.0 mg/dL (<2.0)
[2016-09-30 02:22] LABS: Basophils % (A) 0 %; CH 28.6; CHCM 31.9; Eosinophils # (A) 0.5 k/uL (0-0.7); Eosinophils % (A) 7 %; HCT 31.5 % (34.0-46.0); HDW 2.84; HGB 9.9 gm/dL (11.4-16.0); Luc # (Auto) 0.18; Luc % (Auto) 2; Lymphocytes # (A) 1.6 k/uL (1.0-4.8); Lymphocytes % (A) 21 %; MCH 28.3 pg (25.0-35.0); MCHC 31.4 g/dL (31.0-37.0); MCV 90.2 fL (80.0-100.0); Monocytes # (A) 0.2 k/uL (0-1.0); Monocytes % (A) 3 %; Neutrophils # (A) 5.1 k/uL (1.3-7.7); Neutrophils % (A) 67 %; RBC 3.49 m/uL (3.80-5.40); WBC 7.7 k/uL (3.8-10.6); WBC (Perox) 7.93
[2016-09-30 02:29] LABS: ALT 19 U/L (9-52); AST 14 U/L (14-36); Alkaline Phosphatase 116 U/L (38-126); Anion Gap 11 mmol/L; Blood Urea Nitrogen 8 mg/dL (7-17); Calcium 8.9 mg/dL (8.4-10.2); Carbon Dioxide 25 mmol/L (22-30); Chloride 99 mmol/L (98-107); Glucose 255 mg/dL (74-99); Non-African American GFR(MDRD) >60 (>60 ml/min/1.73 sqM); Partial Thromboplastin Time 24.4 sec (22.0-30.0); Potassium 4.6 mmol/L (3.5-5.1); Prothrombin Time 10.1 sec (9.0-12.0); Sodium 135 mmol/L (137-145); Total Bilirubin 0.2 mg/dL (0.2-1.3); Total Protein 5.8 g/dL (6.3-8.2)
[2016-09-30] MEDS ORDERED: SODIUM CHLORIDE 0.9% 1,000 ML IV ONE ×2 (02:40)
[2016-09-30] MEDS ORDERED: INSULIN REGULAR 100 UNIT/ML VIAL IV STA (02:40)
--- NOTE | 2016-09-30 02:56 | XR ---
EXAM: XR Chest, 1 View. CLINICAL HISTORY: Reason: Fever TECHNIQUE: Frontal view of the chest. COMPARISON: No relevant prior studies available. FINDINGS: Lungs: Bilateral pulmonary hyperinflation. No focal consolidation. Stable left lower lobe calcified pulmonary nodule. Pleural space: Unremarkable. No pneumothorax. Heart: Unremarkable. No cardiomegaly. Mediastinum: Unremarkable. Bones/joints: No acute osseous abnormality. IMPRESSION: No acute cardiopulmonary process.
[2016-09-30] MEDS ORDERED: ONDANSETRON 4 MG/2 ML VIAL IVP STA (03:35)
[2016-09-30] MEDS ORDERED: MORPHINE SULFATE 4 MG/ML SYRINGE IV STA (03:35)
[2016-09-30] MEDS ORDERED: HYDROmorphone 1 MG/ML 1 ML SYRINGE IVP STA ×2 (03:39→05:44)
--- NOTE | 2016-09-30 03:42 | XR ---
EXAM: XR Abdomen Complete, 2 or More Views. CLINICAL HISTORY: Reason: Pain TECHNIQUE: Frontal view of the abdomen/pelvis with upright view of the abdomen. COMPARISON: 09/18/2016 FINDINGS: Lower thorax: Stable calcified left lower lobe pulmonary nodule. Intraperitoneal space: No pneumatosis or pneumoperitoneum. Gastrointestinal tract: Nonspecific bowel gas pattern. Air-fluid levels are seen throughout the abdomen. No dilation. Bones/joints: No acute osseous abnormality. Soft tissues: Skin dot project over the midline lower abdomen and pelvis. IMPRESSION: Nonspecific bowel gas pattern with multiple air-fluid levels, possibly an ileus or obstruction. No pneumatosis or pneumoperitoneum.
[2016-09-30 05:28] LABS: Glucose,Whole Blood 106 mg/dL (75-99)
[2016-09-30] MEDS ORDERED: NALOXONE 0.4 MG/ML 1 ML VIAL IV PRN (06:28)
--- NOTE | 2016-09-30 06:46 | ED ---
Abdominal Pain HPI - General Chief Complaint: Recheck/Abnormal Lab/Rx Stated Complaint: Hyperglycemia/Dizziness Time Seen by Provider: 09/30/16 01:29 Source: patient Mode of arrival: ambulatory Limitations: no limitations - History of Present Illness Initial Comments: As patient is a 56-year-old woman who presents with complaint that over the past day she has been feeling worse than when she left after surgery. She states that she has had an increase in abdominal pain, and she is having nausea and vomiting. She also noted which took her blood sugar that was elevated. The patient had surgery here on September 19 for which she describes as a bowel obstruction. She states that she had a small piece of intestine removed. Patient states that she had gone home and had been doing okay then over the past day or so noted that she was having a little bit of increasing pain and then over the course of last night developed nausea and vomiting. She has not been able keep much in way of fluids down. Her blood sugar has been running high overnight. Patient denies fever or chills. She denies cough or shortness of breath. She has not noted a change in urination. MD Complaint: abdominal pain -: hour(s) Location: periumbilical Radiation: none Severity: moderate Quality: cramping, aching Consistency: constant Improves With: nothing Worsens With: nothing Associated Symptoms: nausea, vomiting - Related Data Home Medications Medication Instructions Recorded Confirmed Clopidogrel [Plavix] 75 mg PO DAILY 04/28/15 09/30/16 Levothyroxine Sodium [Synthroid] 200 mcg PO DAILY 04/28/15 09/30/16 Omeprazole [PriLOSEC] 40 mg PO DAILY 04/28/15 09/30/16 Venlafaxine HCl ER [Effexor XR] 150 mg PO DAILY 04/28/15 09/30/16 Ergocalciferol [Vitamin D2 50,000 unit PO TU 10/11/15 09/30/16 (DRISDOL)] Insulin Glargine,Hum.rec.anlog 20 unit SQ W/BRKFST 07/05/16 09/30/16 [Lantus Solostar] Aspirin [Adult Low Dose Aspirin EC] 81 mg PO DAILY 09/04/16 09/30/16 Atorvastatin [Lipitor] 40 mg PO HS 09/04/16 09/30/16 Budesonide-Formot 160-4.5 Mcg 2 puff INHALATION RT-BID 09/30/16 09/30/16 [Symbicort 160-4.5 Mcg Inhaler] Previous Rx's Medication Instructions Recorded Amoxic-Pot Clav 875-125Mg 1 tab PO Q12HR #10 tablet 09/24/16 [Augmentin 875-125] Insulin Glulisine [Apidra] 10 unit SQ AC-BID #0 09/24/16 Nicotine 21Mg/24Hr Patch [Habitrol] 1 patch TRANSDERM DAILY #30 patch 09/24/16 Albuterol Inhaler [Ventolin Hfa 1 - 2 puff INHALATION Q6HR PRN #1 09/25/16 Inhaler] inhaler Insulin Glargine,Hum.rec.anlog 30 unit SQ HS #0 09/25/16 [Lantus Solostar] traMADol HCl [Ultram] 50 mg PO QID #30 tab 09/25/16 Allergies Allergy/AdvReac Type Severity Reaction Status Date / Time bee pollen Allergy Unknown Verified 09/30/16 07:46 latex Allergy Rash/Hives Verified 09/30/16 07:46 Sulfa (Sulfonamide Allergy Rash/Hives Verified 09/30/16 07:46 Antibiotics) hydrocodone AdvReac Nausea Verified 09/30/16 07:46 morphine AdvReac Unknown Verified 09/30/16 07:46 prochlorperazine edisylate AdvReac Vomiting Verified 09/30/16 07:46 [From Compazine] prochlorperazine maleate AdvReac Vomiting Verified 09/30/16 07:46 [From Compazine] Review of Systems ROS Statement: Those systems with pertinent positive or pertinent negative responses have been documented in the HPI. ROS Other: All systems not noted in ROS Statement are negative. Constitutional: Denies: fever, chills Respiratory: Denies: cough, dyspnea, wheezes Cardiovascular: Denies: chest pain, palpitations, edema Gastrointestinal: Reports: as per HPI, abdominal pain, nausea, vomiting, diarrhea. Denies: hematemesis, melena, hematochezia Genitourinary: Denies: dysuria, hematuria Musculoskeletal: Denies: back pain Skin: Denies: rash Neurological: Reports: weakness (Generalized). Denies: headache, numbness Past Medical History Past Medical History: Asthma, Cancer, Chest Pain / Angina, COPD, CVA/TIA, Diabetes Mellitus, GERD/Reflux, Hyperlipidemia, Hypertension, Myocardial Infarction ([place]), Syncope, Thyroid Disorder Additional Past Medical History / Comment(s): Left renal cell carcinoma status post partial nephrectomy, CVA 4, diabetes mellitus, COPD, hypothyroidism, chronic back pain, urine checked infection with sepsis secondary to ESBL producing E. coli in April 2016 requiring a PICC line insertion for IV antibiotics, coronary artery disease with previous [place], restless leg syndrome, peripheral neuropathy, hypertension, hypothyroidism, hyperlipidemia, GE reflux, depression Last Myocardial Infarction Date:: 2012 History of Any Multi-Drug Resistant Organisms: ESBL Date of last positivie culture/infection: 05/07/16 ESBL, 05/15/16 VRE MDRO Source:: URINE E.COLI, EC GALLINARUM Past Surgical History: Appendectomy, Section, Heart Catheterization Additional Past Surgical History / Comment(s): thyroidectomy(non functioning) heart cath 06-18-12 100% occluded LAD unable to stent, partial nephrectomy for a left kidney renal cell carcinoma, PICC line insertion (since removed), colonoscopy, bilateral cataract removal with lens implants, 2 C-Sections. Past Anesthesia/Blood Transfusion Reactions: No Reported Reaction Past Psychological History: Anxiety, Depression Additional Psychological History / Comment(s): TAKES EFFEXOR FOR DEPRESSION STATED SHE FEELS MAINTAINED ON THAT MEDICATION.DENIES ANY THOUGHTS OF HARMING SELF. Pt lives with her significant other in [facility] and is independant. Smoking Status: Current every day smoker Past Alcohol Use History: None Reported Additional Past Alcohol Use History / Comment(s): STARTED SMOKING AT AGE 10.HAD WORKED UP TO 3 PPD BUT HAS CUT DOWN IN ATTEMPT TO QUIT NOW SMOKES 1 PPD Past Drug Use History: Marijuana Additional Drug Use History / Comment(s): OCC USES MARIJUANA-LASRT USED 3 WEEKS AGO. - Past Family History Father Family Medical History: Myocardial Infarction ([place]) Additional Family Medical History / Comment(s): from [place] at age 48 Mother Family Medical History: Cancer Additional Family Medical History / Comment(s): maeve breasts removed d/t cancer, hysterectomy d/t cancer General Exam Limitations: no limitations General appearance: alert, in no apparent distress Head exam: Present: atraumatic, normocephalic ENT exam: Present: mucous membranes dry Neck exam: Present: normal inspection Respiratory exam: Present: normal lung sounds bilaterally. Absent: respiratory distress, wheezes, rales, rhonchi, stridor Cardiovascular Exam: Present: normal rhythm, tachycardia, normal heart sounds. Absent: systolic murmur, diastolic murmur, rubs, gallop GI/Abdominal exam: Present: soft, tenderness (Patient has some mild periumbilical tenderness, no rebound or guarding.), diminished bowel sounds. Absent: distended, guarding, rebound, rigid, mass, pulsatile mass, hernia Extremities exam: Present: normal inspection, normal capillary refill. Absent: pedal edema, calf tenderness Back exam: Present: normal inspection. Absent: CVA tenderness (R), CVA tenderness (L) Neurological exam: Present: alert Skin exam: Present: warm, dry, intact, normal color. Absent: rash Course Vital Signs 09/30/16 09/30/16 09/30/16 01:14 05:45 07:33 Temperature 99.4 F 98.3 F Pulse Rate 113 H 86 88 Respiratory 18 16 17 Rate Blood Pressure 138/79 120/63 116/64 O2 Sat by Pulse 96 97 97 Oximetry 09/30/16 07:51 Temperature 98 F Pulse Rate Respiratory Rate Blood Pressure O2 Sat by Pulse Oximetry Medical Decision Making - Medical Decision Making Patient is a 56-year-old woman with history of diabetes and recent surgical procedure. She does appear to be somewhat dry and the labs show an increased lactic acid. Patient is given fluid bolus. The studies show possible ileus versus possible small bowel obstruction. Case discussed with Dr. Harrington who is covering for Dr. Nichols and will admit the patient. - Lab Data Result diagrams: 10/01/16 08:58 10/01/16 08:58 Lab Results 09/30/16 09/30/16 09/30/16 Range/Units 01:20 01:57 02:02 WBC 7.7 (3.8-10.6) k/uL RBC 3.49 L (3.80-5.40) m/uL Hgb 9.9 L (11.4-16.0) gm/dL Hct 31.5 L (34.0-46.0) % MCV 90.2 (80.0-100.0) fL MCH 28.3 (25.0-35.0) pg MCHC 31.4 (31.0-37.0) g/dL RDW 16.0 H (11.5-15.5) % Plt Count 506 H (150-450) k/uL Neutrophils % 67 % Lymphocytes % 21 % Monocytes % 3 % Eosinophils % 7 % Basophils % 0 % Neutrophils # 5.1 (1.3-7.7) k/uL Lymphocytes # 1.6 (1.0-4.8) k/uL Monocytes # 0.2 (0-1.0) k/uL Eosinophils # 0.5 (0-0.7) k/uL Basophils # 0.0 (0-0.2) k/uL PT (9.0-12.0) sec INR (<1.1) APTT (22.0-30.0) sec Sodium (137-145) mmol/L Potassium (3.5-5.1) mmol/L Chloride (98-107) mmol/L Carbon Dioxide (22-30) mmol/L Anion Gap mmol/L BUN (7-17) mg/dL Creatinine (0.52-1.04) mg/dL Est GFR (MDRD) Af Amer (>60 ml/min/1.73 sqM) Est GFR (MDRD) Non-Af (>60 ml/min/1.73 sqM) Glucose (74-99) mg/dL POC Glucose (mg/dL) 348 H 281 H (75-99) mg/dL POC Glu Product Merchandiser ID Leoncio RosemaryNeto Mejia [address]imated [address] Glu mg/dL mg/dL Hemoglobin A1c (4.2-6.1) % Plasma Lactic Acid Ab (0.7-2.0) mmol/L Calcium (8.4-10.2) mg/dL Phosphorus (2.5-4.5) mg/dL Magnesium (1.6-2.3) mg/dL Total Bilirubin (0.2-1.3) mg/dL AST (14-36) U/L ALT (9-52) U/L Alkaline Phosphatase (38-126) U/L Total Protein (6.3-8.2) g/dL Albumin (3.5-5.0) g/dL Urine Color Urine Appearance (Clear) Urine pH (5.0-8.0) Ur Specific [place] (1.001-1.035) Urine Protein (Negative) Urine Glucose (UA) (Negative) Urine Ketones (Negative) Urine Blood (Negative) Urine Nitrite (Negative) Urine Bilirubin (Negative) Urine Urobilinogen (<2.0) mg/dL Ur Leukocyte Esterase (Negative) Acetone, Qual (Negative) 09/30/16 09/30/16 09/30/16 Range/Units 02:02 02:02 02:02 WBC (3.8-10.6) k/uL RBC (3.80-5.40) m/uL Hgb (11.4-16.0) gm/dL Hct (34.0-46.0) % MCV (80.0-100.0) fL MCH (25.0-35.0) pg MCHC (31.0-37.0) g/dL RDW (11.5-15.5) % Plt Count (150-450) k/uL Neutrophils % % Lymphocytes % % Monocytes % % Eosinophils % % Basophils % % Neutrophils # (1.3-7.7) k/uL Lymphocytes # (1.0-4.8) k/uL Monocytes # (0-1.0) k/uL Eosinophils # (0-0.7) k/uL Basophils # (0-0.2) k/uL PT 10.1 (9.0-12.0) sec INR 1.0 (<1.1) APTT 24.4 (22.0-30.0) sec Sodium 135 L (137-145) mmol/L Potassium 4.6 (3.5-5.1) mmol/L Chloride 99 (98-107) mmol/L Carbon Dioxide 25 (22-30) mmol/L Anion Gap 11 mmol/L BUN 8 (7-17) mg/dL Creatinine 0.80 (0.52-1.04) mg/dL Est GFR (MDRD) Af Amer >60 (>60 ml/min/1.73 sqM) Est GFR (MDRD) Non-Af >60 (>60 ml/min/1.73 sqM) Glucose 255 H (74-99) mg/dL POC Glucose (mg/dL) (75-99) mg/dL POC Glu Product Merchandiser ID Estimated Ave Glu mg/dL mg/dL Hemoglobin A1c (4.2-6.1) % Plasma Lactic Acid Ab 4.4 H* (0.7-2.0) mmol/L Calcium 8.9 (8.4-10.2) mg/dL Phosphorus (2.5-4.5) mg/dL Magnesium (1.6-2.3) mg/dL Total Bilirubin 0.2 (0.2-1.3) mg/dL AST 14 (14-36) U/L ALT 19 (9-52) U/L Alkaline Phosphatase 116 (38-126) U/L Total Protein 5.8 L (6.3-8.2) g/dL Albumin 3.1 L (3.5-5.0) g/dL Urine Color Urine Appearance (Clear) Urine pH (5.0-8.0) Ur Specific [place] (1.001-1.035) Urine Protein (Negative) Urine Glucose (UA) (Negative) Urine Ketones (Negative) Urine Blood (Negative) Urine Nitrite (Negative) Urine Bilirubin (Negative) Urine Urobilinogen (<2.0) mg/dL Ur Leukocyte Esterase (Negative) Acetone, Qual (Negative) 09/30/16 09/30/16 09/30/16 Range/Units 02:02 02:02 02:02 WBC (3.8-10.6) k/uL RBC (3.80-5.40) m/uL Hgb (11.4-16.0) gm/dL Hct (34.0-46.0) % MCV (80.0-100.0) fL MCH (25.0-35.0) pg MCHC (31.0-37.0) g/dL RDW (11.5-15.5) % Plt Count (150-450) k/uL Neutrophils % % Lymphocytes % % Monocytes % % Eosinophils % % Basophils % % Neutrophils # (1.3-7.7) k/uL Lymphocytes # (1.0-4.8) k/uL Monocytes # (0-1.0) k/uL Eosinophils # (0-0.7) k/uL Basophils # (0-0.2) k/uL PT (9.0-12.0) sec INR (<1.1) APTT (22.0-30.0) sec Sodium (137-145) mmol/L Potassium (3.5-5.1) mmol/L Chloride (98-107) mmol/L Carbon Dioxide (22-30) mmol/L Anion Gap mmol/L BUN (7-17) mg/dL Creatinine (0.52-1.04) mg/dL Est GFR (MDRD) Af Amer (>60 ml/min/1.73 sqM) Est GFR (MDRD) Non-Af (>60 ml/min/1.73 sqM) Glucose (74-99) mg/dL POC Glucose (mg/dL) (75-99) mg/dL POC Glu Product Merchandiser ID Estimated Ave Glu mg/dL mg/dL Hemoglobin A1c (4.2-6.1) % Plasma Lactic Acid Ab (0.7-2.0) mmol/L Calcium (8.4-10.2) mg/dL Phosphorus 2.0 L (2.5-4.5) mg/dL Magnesium 1.6 (1.6-2.3) mg/dL Total Bilirubin (0.2-1.3) mg/dL AST (14-36) U/L ALT (9-52) U/L Alkaline Phosphatase (38-126) U/L Total Protein (6.3-8.2) g/dL Albumin (3.5-5.0) g/dL Urine Color Light Yellow Urine Appearance Clear (Clear) Urine pH 7.0 (5.0-8.0) Ur Specific [place] 1.025 (1.001-1.035) Urine Protein Negative (Negative) Urine Glucose (UA) 4+ H (Negative) Urine Ketones Negative (Negative) Urine Blood Negative (Negative) Urine Nitrite Negative (Negative) Urine Bilirubin Negative (Negative) Urine Urobilinogen <2.0 (<2.0) mg/dL Ur Leukocyte Esterase Negative (Negative) Acetone, Qual Negative (Negative) 09/30/16 09/30/16 09/30/16 Range/Units 02:02 05:26 05:56 WBC (3.8-10.6) k/uL RBC (3.80-5.40) m/uL Hgb (11.4-16.0) gm/dL Hct (34.0-46.0) % MCV (80.0-100.0) fL MCH (25.0-35.0) pg MCHC (31.0-37.0) g/dL RDW (11.5-15.5) % Plt Count (150-450) k/uL Neutrophils % % Lymphocytes % % Monocytes % % Eosinophils % % Basophils % % Neutrophils # (1.3-7.7) k/uL Lymphocytes # (1.0-4.8) k/uL Monocytes # (0-1.0) k/uL Eosinophils # (0-0.7) k/uL Basophils # (0-0.2) k/uL PT (9.0-12.0) sec INR (<1.1) APTT (22.0-30.0) sec Sodium (137-145) mmol/L Potassium (3.5-5.1) mmol/L Chloride (98-107) mmol/L Carbon Dioxide (22-30) mmol/L Anion Gap mmol/L BUN (7-17) mg/dL Creatinine (0.52-1.04) mg/dL Est GFR (MDRD) Af Amer (>60 ml/min/1.73 sqM) Est GFR (MDRD) Non-Af (>60 ml/min/1.73 sqM) Glucose (74-99) mg/dL POC Glucose (mg/dL) 106 H (75-99) mg/dL POC Glu Product Merchandiser ID Shu Antony Estimated [address] Glu mg/dL 289 mg/dL Hemoglobin A1c 11.7 H (4.2-6.1) % Plasma Lactic Acid Ab 1.3 (0.7-2.0) mmol/L Calcium (8.4-10.2) mg/dL Phosphorus (2.5-4.5) mg/dL Magnesium (1.6-2.3) mg/dL Total Bilirubin (0.2-1.3) mg/dL AST (14-36) U/L ALT (9-52) U/L Alkaline Phosphatase (38-126) U/L Total Protein (6.3-8.2) g/dL Albumin (3.5-5.0) g/dL Urine Color Urine Appearance (Clear) Urine pH (5.0-8.0) Ur Specific [place] (1.001-1.035) Urine Protein (Negative) Urine Glucose (UA) (Negative) Urine Ketones (Negative) Urine Blood (Negative) Urine Nitrite (Negative) Urine Bilirubin (Negative) Urine Urobilinogen (<2.0) mg/dL Ur Leukocyte Esterase (Negative) Acetone, Qual (Negative) Disposition Clinical Impression: Lactic acid acidosis, Hyperglycemia, Ileus Disposition: ADMITTED IP TO THIS HOSP Condition: Fair
[2016-09-30 07:27] LABS: Glucose,Whole Blood 348 mg/dL (75-99)
[2016-09-30] MEDS: SODIUM CHLORIDE 0.9% 1,000 ML IV SCH ×3 (07:34→21:16)
[2016-09-30] MEDS: ONDANSETRON 4 MG/2 ML VIAL IVP PRN (07:34)
[2016-09-30] MEDS ORDERED: PANTOPRAZOLE 40 MG/10 ML VIAL IV SCH (09:00)
--- NOTE | 2016-09-30 09:18 | P.PN ---
Progress Note - Text AXR reviewed. Findings consistent with ileus NOT OBSTRUCTION. Correct electrolytes. Please see full dictated report.
[2016-09-30] MEDS: HYDROmorphone 1 MG/ML 1 ML SYRINGE IV PRN ×2 (09:34→12:17)
[2016-09-30 11:55] LABS: Glucose,Whole Blood 231 mg/dL (75-99)
[2016-09-30 12:32] LABS: Magnesium 1.6 mg/dL (1.6-2.3)
[2016-09-30] MEDS ORDERED: ALBUTEROL NEBULIZED 2.5 MG/3 ML INHALATION PRN (12:39)
[2016-09-30] MEDS: INSULIN LISPRO (humaLOG) 300 UNIT/3 ML VIAL SQ SCH ×4 (12:53→21:06)
--- NOTE | 2016-09-30 13:30 | P.GSHP ---
History of Present Illness H&P Date: 09/30/16 This is a 56-year-old female who presented on September 30 to the emergency room for chief complaint of developing nausea vomiting abdominal pain. Patient stated that she did check her blood sugar prior to coming into the emergency room was greater than 450. Patient was just discharged on September 25 at that time the patient was treated for small bowel obstruction status post exploratory laparotomy open with lysis of adhesions evacuation of 6 feet of incarcerated food and a repair of incarcerated incisional hernia with an abdominal washout. Patient stated that she been doing relatively well up until the day of the event. X-ray of the abdomen obtained in the emergency room possible ileus no evidence of an obstruction lactic acid was elevated to 4.4 be checked was 1.3 electrolytes were reviewed within normal limits. At the time of this evaluation the patient's blood sugar was 231. Patient denied abdominal pain and stated that she was hungry and no longer was experiencing an nausea sensation or vomiting episodes - Review of Systems Comment: Essentially unremarkable except mentioned in the present illness Past Medical History Past Medical History: Asthma, Cancer, Chest Pain / Angina, COPD, CVA/TIA, Diabetes Mellitus, GERD/Reflux, Hyperlipidemia, Hypertension, Myocardial Infarction ([place]), Syncope, Thyroid Disorder Additional Past Medical History / Comment(s): Pt recently admitted to [facility] on 09/16/16 with SBO with surgery/possible septic emboli with cavitary lesions bilateral lungs. Other hx: left renal cell carcinoma status post partial nephrectomy, CVA 4, diabetes mellitus, COPD, hypothyroidism, chronic back pain , urine checked infection with sepsis secondary to ESBL producing E. coli in April 2016 requiring a PICC line insertion for IV antibiotics, coronary artery disease with previous [place], restless leg syndrome, peripheral neuropathy, hypertension, hypothyroidism, hyperlipidemia, GE reflux, depression Last Myocardial Infarction Date:: 2012 History of Any Multi-Drug Resistant Organisms: ESBL Date of last positivie culture/infection: 05/07/16 ESBL, 05/15/16 VRE MDRO Source:: URINE E.COLI, EC GALLINARUM Past Surgical History: Appendectomy, Bowel Resection, Section, Heart Catheterization Additional Past Surgical History / Comment(s): 09/23/16 exploratory laparotomy, lysis of adhesions bowel resection d/t obstruction evacuation incarcerated food bezoar/repair incarcerated incisional hernia with abdominal washout. Other sx hx: thyroidectomy(non functioning) heart cath 1-3- 100% occluded LAD unable to stent, partial nephrectomy for a left kidney renal cell carcinoma, PICC line insertion (since removed), colonoscopy, bilateral cataract removal with lens implants, 2 C-Sections. Past Anesthesia/Blood Transfusion Reactions: No Reported Reaction Past Psychological History: Anxiety, Depression Additional Psychological History / Comment(s): TAKES EFFEXOR FOR DEPRESSION STATED SHE FEELS MAINTAINED ON THAT MEDICATION.DENIES ANY THOUGHTS OF HARMING SELF. Pt lives with her significant other in [facility] and is independant. She is able to drive, but does not own a car. She arranges rides thru [place] or uses a cab. Smoking Status: Former smoker Past Alcohol Use History: None Reported Additional Past Alcohol Use History / Comment(s): STARTED SMOKING AT AGE 10.HAD WORKED UP TO 3 PPD BUT QUIT 09/16/16. Past Drug Use History: Marijuana Additional Drug Use History / Comment(s): [facility] USES MARIJUANA-LASRT USED 3 WEEKS AGO. - Past Family History Father Family Medical History: Myocardial Infarction ([place]) Additional Family Medical History / Comment(s): [place] at age 48 Mother Family Medical History: Cancer Additional Family Medical History / Comment(s): maeve breasts removed d/t cancer, hysterectomy d/t cancer Medications and Allergies Home Medications Medication Instructions Recorded Confirmed Type Clopidogrel [Plavix] 75 mg PO DAILY 04/28/15 09/30/16 History Levothyroxine Sodium [Synthroid] 200 mcg PO DAILY 04/28/15 09/30/16 History Omeprazole [PriLOSEC] 40 mg PO DAILY 04/28/15 09/30/16 History Venlafaxine HCl ER [Effexor XR] 150 mg PO DAILY 04/28/15 09/30/16 History Ergocalciferol [Vitamin D2 50,000 unit PO TU 10/11/15 09/30/16 History (DRISDOL)] Insulin Glargine,Hum.rec.anlog 20 unit SQ W/BRKFST 07/05/16 09/30/16 History [Lantus Solostar] Aspirin [Adult Low Dose Aspirin EC] 81 mg PO DAILY 09/04/16 09/30/16 History Atorvastatin [Lipitor] 40 mg PO HS 09/04/16 09/30/16 History Budesonide-Formot 160-4.5 Mcg 2 puff INHALATION RT-BID 09/30/16 09/30/16 History [Symbicort 160-4.5 Mcg Inhaler] Allergies Allergy/AdvReac Type Severity Reaction Status Date / Time bee pollen Allergy Unknown Verified 09/30/16 07:46 latex Allergy Rash/Hives Verified 09/30/16 07:46 Sulfa (Sulfonamide Allergy Rash/Hives Verified 09/30/16 07:46 Antibiotics) hydrocodone AdvReac Nausea Verified 09/30/16 07:46 morphine AdvReac Unknown Verified 09/30/16 07:46 prochlorperazine edisylate AdvReac Vomiting Verified 09/30/16 07:46 [From Compazine] prochlorperazine maleate AdvReac Vomiting Verified 09/30/16 07:46 [From Compazine] Surgical - Exam Vital Signs Temp Pulse Resp BP Pulse Ox 99.4 F 113 H 18 138/79 96 09/30/16 01:14 09/30/16 01:14 09/30/16 01:14 09/30/16 01:14 09/30/16 01:14 GENERAL APPEARANCE: 56-year-old female sitting up in bed patient is alert, oriented, in no acute distress. VITAL SIGNS: Reviewed HEENT: Head is normocephalic and atraumatic. Pupils are equal and reactive. The nares are patent. Oropharynx is clear without lesions. NECK: Supple without lymphadenopathy. Traches midline. HEART: S1, S2. Regular rate and rhythm. No murmur noted LUNGS: No crackles or wheezes are heard. Adequate air movement bilaterally sats are 97% on room air ABDOMEN: Soft, nontender, nondistended with good bowel sounds. No peritoneal signs. No palpable organomegaly or masses. EXTREMITIES: Normal skin color and turgor. No cyanosis, rash, ulceration, clubbing or edema. Radial pedal pulses are 2/4 bilaterally. NEUROLOGICAL: No focal deficits. Strength and sensation are grossly intact. Results - Labs 09/30/16 02:02 09/30/16 02:02 Abnormal Lab Results - Last 24 Hours (Table) 09/30/16 Range/Units 11:53 POC Glucose (mg/dL) 231 H (75-99) mg/dL
[2016-09-30 14:02] LABS: Hemoglobin A1C 11.7 % (4.2-6.1)
[2016-09-30 14:33] VITALS: BMI 23.0
[2016-09-30] MEDS: traMADol 50 MG TAB PO SCH ×3 (14:54→22:16)
[2016-09-30] MEDS: MAGNESIUM SULFATE-D5W PMX 1 GM in DEXTROSE/WATER 1 100ML.BAG IVPB SCH ×4 (15:35→21:05)
--- NOTE | 2016-09-30 16:38 | CONS ---
DATE OF CONSULTATION: REASON FOR CONSULTATION: Lactic acidosis, dehydration and diarrhea and management of insulin. 56-year-old who came in with complaints of nausea, vomiting and lower abdominal pain and patient was having diarrhea since her discharge. Patient underwent expiratory laparotomy and lysis of adhesions. Patient denied any fever, chills. Patient denied any cough, runny nose or dysuria. Patient does have lactic acidosis. Patient is on Augmentin. Patient started having diarrhea on Augmentin and patient since we stopped Augmentin yesterday the patient did not have any diarrhea. Try to obtain Clostridium difficile for testing although patient did not have diarrhea today. Patient's lactic acid improved at this point of time to 1.3, 4.4 and IV fluids will be decreased. Patient's blood sugars are fairly controlled today. Surgery is going to remove the dot tomorrow. REVIEW OF SYSTEMS: CONSTITUTIONAL: No fever, no malaise, no fatigue. HEENT: No recent visual problems or hearing problems. Denied any sore throat. CARDIOVASCULAR: No chest pain, orthopnea, PND, no palpitations, no syncope. PULMONARY: No shortness of breath, no cough, no hemoptysis. GASTROINTESTINAL: As described in HPI. NEUROLOGICAL: No headaches, no weakness, no numbness. HEMATOLOGICAL: Denies any bleeding or petechiae. GENITOURINARY: Denies any burning micturition, frequency, or urgency. MUSCULOSKELETAL/RHEUMATOLOGICAL: Denies any joint pain, swelling, or any muscle pain. ENDOCRINE: Denies any polyuria or polydipsia. The rest of the 14 point review of systems is negative. PAST MEDICAL HISTORY: Diabetes mellitus, COPD, cerebrovascular accident/transient ischemic attack in the past, asthma, recent adhesiolysis and patient was discharged on Augmentin. Patient has ESBL in the past, anxiety, depression. Patient quit smoking on September 16, 2016, used to smoke 3 packs per day and patient has occasional use of marijuana. Denied any alcohol abuse. FAMILY HISTORY: Father had myocardial infarction, at age 48. Mother had cancer with bilateral breast removed which is breast cancer. Home medications: 1. Plavix. 2. Levothyroxine. 3. Omeprazole. 4. Venlafaxine. 5. Ergocalciferol. 6. Glargine. 7. Lantus 20 units subcutaneous with breakfast. 8. Aspirin. 9. Atorvastatin. 10. Budesonide. 11. Formoterol. Not sure why patient is on both aspirin and Plavix, will leave further management of those 2 antiplatelet medications to the primary care physician. ALLERGIES: BEE POLLEN, LATEX, SULFA DRUGS, HYDROCODONE, MORPHINE AND COMPAZINE. PHYSICAL EXAMINATION: Temperature 98.5, pulse of 88, respiratory rate of 17, blood pressure 116/64, saturating at 97% on room air. GENERAL: The patient is thin built. Alert and oriented x3, not in any acute distress. HEENT: Pupils are round and equally reacting to light. EOMI. No scleral icterus. No conjunctival pallor. Normocephalic, atraumatic. No pharyngeal erythema. No thyromegaly. CARDIOVASCULAR: S1 and S2 present. No murmurs, rubs, or gallops. PULMONARY: Chest is clear to auscultation, no wheezing or crackles. ABDOMEN: Soft, nontender, nondistended, normoactive bowel sounds. No palpable organomegaly. MUSCULOSKELETAL: No joint swelling or deformity. EXTREMITIES: No cyanosis, clubbing, or pedal edema. NEUROLOGICAL: Gross neurological examination did not reveal any focal deficits. SKIN: No rashes. LABORATORY DATA: Hemoglobin A1c is 11.7. Patient appears to be noncompliant with medications. Lactic acid is 4.4, now come down to 1.3. UA is negative. Chest x-ray did not show any abnormality. Abdominal x-ray showed some dilation and nonspecific bowel gas pattern. ASSESSMENT AND PLAN: 1. Lactic acidosis I believe this is secondary to diarrhea and dehydration. Patient received IV fluids. Recommend to continue with IV fluids and the patient actually from medical perspective, if ready to be discharged from surgical perspective as her diarrhea resolved. 2. Diarrhea secondary to antibiotic use and unable to obtain Clostridium difficile testing as her diarrhea already resolved with discontinuation of antibiotics. 3. Diabetes mellitus. We will start her on her home insulin regimen along with sliding scale. We uptitrate the insulin. If patient is staying here, patient appears to be highly noncompliant with medications, counseling regarding that was provided. Dietary counseling was provided as well. 4. Patient has cavitary lesions in the bilateral lungs for which patient will undergo outpatient work-up by pulmonary. 5. Type 2 diabetes mellitus. 6. Chronic obstructive pulmonary disease without any acute exacerbation. Patient continues to smoke. Extensive counseling regarding that was provided. 7. Hyperlipidemia. 8. Hypertension. 9. Left kidney cancer with partial nephrectomy. 10. Chronic low back pain and degenerative joint disease. 11. Anxiety, depression. For above-mentioned chronic medical problems, we can go ahead and continue her home medications. Thank you for letting me participate in this patient's care. Will continue to follow the patient on as-needed basis. Patient is not in chronic obstructive pulmonary disease exacerbation , can continue inhaled steroids and will not require any systemic steroids.
[2016-09-30 17:09] LABS: Glucose,Whole Blood 181 mg/dL (75-99)
--- NOTE | 2016-09-30 20:49 | P.PN ---
Progress Note - Text Patient evaluated this evening. She's tolerating diet regular. She is passing some flatus. She still reports diarrhea. Recommend C. diff study.
[2016-09-30] MEDS: ATORVASTATIN 40 MG TAB PO SCH (21:05)
[2016-09-30 21:13] LABS: Glucose,Whole Blood 111 mg/dL (75-99)
[2016-09-30] MEDS: INSULIN GLARGINE 100 UNIT/ML 10 ML VIAL SQ SCH (21:13)
[2016-09-30] MEDS: SYMBICORT 160-4.5 MCG INHALER INHALATION SCH (21:22)
[2016-09-30] MEDS: SODIUM PHOSPHATE 10 MMOL in SODIUM CHLORIDE 0.9% 250 ML IVPB SCH (22:17)
[2016-10-01] MEDS: SODIUM PHOSPHATE 10 MMOL in SODIUM CHLORIDE 0.9% 250 ML IVPB SCH ×2 (01:10→03:25)
[2016-10-01] MEDS: ONDANSETRON 4 MG/2 ML VIAL IVP PRN ×2 (02:06→18:19)
[2016-10-01 02:11] LABS: Glucose,Whole Blood 271 mg/dL (75-99)
[2016-10-01] MEDS: LEVOTHYROXINE 100 MCG TAB PO SCH (05:33)
[2016-10-01 07:14] LABS: Glucose,Whole Blood 249 mg/dL (75-99)
[2016-10-01] MEDS: INSULIN LISPRO (humaLOG) 300 UNIT/3 ML VIAL SQ SCH ×6 (07:48→21:40)
[2016-10-01] MEDS: INSULIN GLARGINE 100 UNIT/ML 10 ML VIAL SQ SCH ×2 (07:48→21:40)
[2016-10-01] MEDS: NICOTINE 21MG/24HR PATCH TRANSDERM SCH (07:49)
[2016-10-01] MEDS: CLOPIDOGREL 75 MG TAB PO SCH (07:49)
[2016-10-01] MEDS: VENLAFAXINE HCL ER 150 MG CAP PO SCH (07:49)
[2016-10-01] MEDS: SODIUM CHLORIDE 0.9% 1,000 ML IV SCH ×3 (07:49→22:28)
[2016-10-01] MEDS: PANTOPRAZOLE 40 MG TABLET PO SCH (07:49)
[2016-10-01] MEDS: ASPIRIN 81 MG CHEW PO SCH (07:49)
[2016-10-01] MEDS: traMADol 50 MG TAB PO SCH ×4 (07:49→22:26)
[2016-10-01] MEDS: SYMBICORT 160-4.5 MCG INHALER INHALATION SCH ×2 (08:52→20:16)
[2016-10-01 09:18] LABS: Basophils % (A) 0 %; CHCM 31.7; Eosinophils # (A) 0.5 k/uL (0-0.7); Eosinophils % (A) 8 %; HCT 30.3 % (34.0-46.0); HDW 3.08; HGB 9.5 gm/dL (11.4-16.0); Hypochromasia Slight; Luc # (Auto) 0.12; Luc % (Auto) 2; Lymphocytes # (A) 1.5 k/uL (1.0-4.8); Lymphocytes % (A) 24 %; MCH 28.7 pg (25.0-35.0); MCHC 31.2 g/dL (31.0-37.0); MCV 92.1 fL (80.0-100.0); Mean Platelet Volume 6.5; Monocytes # (A) 0.2 k/uL (0-1.0); Monocytes % (A) 4 %; Neutrophils # (A) 3.9 k/uL (1.3-7.7); Neutrophils % (A) 62 %; RBC 3.29 m/uL (3.80-5.40); RDW 15.8 % (11.5-15.5); WBC 6.2 k/uL (3.8-10.6); WBC (Perox) 6.53
[2016-10-01 09:28] LABS: Anion Gap 8 mmol/L; Blood Urea Nitrogen 5 mg/dL (7-17); Calcium 7.7 mg/dL (8.4-10.2); Carbon Dioxide 27 mmol/L (22-30); Chloride 105 mmol/L (98-107); Glucose 134 mg/dL (74-99); Magnesium 1.9 mg/dL (1.6-2.3); Non-African American GFR(MDRD) >60 (>60 ml/min/1.73 sqM); Phosphorous 3.4 mg/dL (2.5-4.5); Potassium 3.9 mmol/L (3.5-5.1); Sodium 140 mmol/L (137-145)
[2016-10-01 11:48] LABS: Glucose,Whole Blood 141 mg/dL (75-99)
--- NOTE | 2016-10-01 11:55 | CDI ---
In responding to this query, please exercise your independent professional judgment. The [facility] Coding Staff and Clinical Documentation Specialists appreciate your assistance in clarifying documentation, maintaining compliance with coding guidelines, accurately documenting patients condition and capturing severity of illness. The fact that a question is asked does not imply that any particular answer is desired or expected. Communication forms are a method of clarifying documentation and are not made part of the Legal Health Record. Thank you in advance for your clarification. Last Revision, August 2015 Teresita Rasmussen [address] [place] [address] Documentation Clarification Form Date: 10/01/2016 11:09:00 AM From: Karina Manzanares RN, CCDS Admit Date: 09/30/2016 6:29:00 AM Patient Name: Lala Kenyon Visit Number: [id number] Discharge Date: Dr. Piedad Nichols/Shaina Dockery [employer] Ileus, not obstruction is documented in the progress note on 09/30/16 History/Risk Factors: Asthma COPD, CVA/TIA, Diabetes mellitus, Hypertension, current every day smoker Clinical Indicators: Patient was having nausea, vomiting, and abdominal pain. She is post-op small bowel obstruction post exploratory laparotomy open with lysis of adhesions evacuation of 6 feed of incarcerated food bezoar/repair incarcerated incisional hernia with abdominal washout. Vital signs: 138/79 113 18 99.4 96 % RA Labs: HBG 9.9, HCT 31.5, Lactic acid 4.4 Abdominal XR: nonspecific bowel gas pattern with multiple air-fluid levels, possibly an ileus or obstruction. Treatment: IV@125 hr Monitor Labs Zofran IV PRN In order to accurately reflect this patients severity of illness, please clarify if the post-operative diagnosis is: An expected post-procedural or post-surgical condition Integral to the procedure Inherent to the procedure An unexpected post-procedural or post-surgical condition, related to the patients underlying medical co morbidities Other, please specify Unable to determine Please document in your progress notes and discharge summary in order to capture severity of illness and risk of mortality. Include clinical findings that support your diagnosis. FYI: Press F11 to launch patient chart Place X here if this finding has no clinical significance, is not applicable or if you are not able to provide any additional documentation. ileus secondary to patient's co-morbidities has been added to the discharge summary. MTDD
[2016-10-01] MEDS ORDERED: ERGOCALCIFEROL 50,000 UNIT CAP PO SCH (12:00)
[2016-10-01 12:39] LABS: Iron 43 ug/dL (37-170)
[2016-10-01 12:50] LABS: % Iron Saturation 22.3 % (20-50); Total Iron Binding Capacity 193 ug/dL (265-497)
--- NOTE | 2016-10-01 13:06 | P.PN ---
Subjective 56 -year-old female being seen on rounds with the surgical attending this morning. Patient states continues to feel nauseated no stool no emesis. Patient reportedly was able to tolerate a breakfast tray this morning eating greater than 75%. Nursing reports that this been increased serous drainage to the mid incision line dot in place Patient is postop 09/19/2016 from a small bowel obstruction post exploratory laparotomy open with a lysis of adhesions evacuation of 6 feet of incarcerated food BEZOAR repair incarcerated incisional hernia with an abdominal washout patient was discharged on September 25 Patient returned to the emergency room on September 30 after being discharged on the . Patient stated that she noted increased abdominal pain was having episodes of nausea vomiting. Patient additionally noted that her blood sugars have been running high when she was at home. Subsequently the patient did return to the emergency room to be evaluated for the above-mentioned symptoms. Objective - Vital Signs Vital signs: Vital Signs Temp 98.9 F 10/01/16 07:00 Pulse 90 10/01/16 07:00 Resp 20 10/01/16 07:00 BP 163/85 10/01/16 07:00 Pulse Ox 98 10/01/16 07:00 Intake & Output 09/30/16 10/01/16 10/01/16 18:59 06:59 18:59 Intake Total 500 Balance 500 Weight 58.967 kg Intake: Oral 500 Other: Voiding Method Toilet Toilet Diaper Diaper # Voids 4 3 2 # Bowel Movements 2 - Exam GENERAL APPEARANCE: 56-year-old female patient is alert, oriented, in no acute distress. Up ambulating in the room VITAL SIGNS: Reviewed HEENT: Head is normocephalic and atraumatic. Pupils are equal and reactive. The nares are patent. Oropharynx is clear without lesions. NECK: Supple without lymphadenopathy. Traches midline. HEART: S1, S2. Regular rate and rhythm. No murmur noted LUNGS: No crackles or wheezes are heard. On room air no shortness of breath noted ABDOMEN: Soft, nontender, nondistended with good bowel sounds. No peritoneal signs. No palpable organomegaly or masses. Surgical dressings dry abdominal binder in place 2 stools documented this morning. Patient reports a sensation of nausea but no decrease appetite no emesis EXTREMITIES: Normal skin color and turgor. No cyanosis, rash, ulceration, clubbing or edema. Radial pedal pulses are 2/4 bilaterally. NEUROLOGICAL: No focal deficits. Strength and sensation are grossly intact. - Labs CBC & Chem 7: 10/01/16 08:58 10/01/16 08:58 Labs: Abnormal Lab Results - Last 24 Hours (Table) 09/30/16 09/30/16 10/01/16 Range/Units 17:08 21:01 02:08 RBC (3.80-5.40) m/uL Hgb (11.4-16.0) gm/dL Hct (34.0-46.0) % RDW (11.5-15.5) % Plt Count (150-450) k/uL BUN (7-17) mg/dL Glucose (74-99) mg/dL POC Glucose (mg/dL) 181 H 111 H 271 H (75-99) mg/dL Calcium (8.4-10.2) mg/dL TSH (0.465-4.680) mIU/L 10/01/16 10/01/16 10/01/16 Range/Units 07:10 08:58 08:58 RBC 3.29 L (3.80-5.40) m/uL Hgb 9.5 L (11.4-16.0) gm/dL Hct 30.3 L (34.0-46.0) % RDW 15.8 H (11.5-15.5) % Plt Count 516 H (150-450) k/uL BUN 5 L (7-17) mg/dL Glucose 134 H (74-99) mg/dL POC Glucose (mg/dL) 249 H (75-99) mg/dL Calcium 7.7 L (8.4-10.2) mg/dL TSH 5.230 H (0.465-4.680) mIU/L 10/01/16 Range/Units 11:44 RBC (3.80-5.40) m/uL Hgb (11.4-16.0) gm/dL Hct (34.0-46.0) % RDW (11.5-15.5) % Plt Count (150-450) k/uL BUN (7-17) mg/dL Glucose (74-99) mg/dL POC Glucose (mg/dL) 141 H (75-99) mg/dL Calcium (8.4-10.2) mg/dL TSH (0.465-4.680) mIU/L Assessment and Plan Plan: Impression Present on admission nausea vomiting frequent stooling suspect ileus with no evidence of a small bowel obstruction Present on admission hypoglycemic episode Type 2 diabetes insulin requiring uncontrolled without evidence of DKA hemoglobin A1c 14 Electrolyte abnormality significant hypo-magnesium, hypophosphorous present on admission Recent discharge 25 of September small bowel resection status post exploratory laparotomy open with lysis of adhesions and evacuation of 6 feet of incarcerated food repair of incarcerated incisional hernia abdominal washout Present on admission abdominal pain nausea vomiting abdominal findings consistent with an ileus no evidence of small bowel obstruction unexpected postsurgical condition Plan Pain control IV fluid for rehydration Electrolytes to be corrected keep in a therapeutic range monitor medical service to address hyperglycemic episodes Resume home meds as appropriate DVT and GI prophylaxis Further recommendations pending The above dictated assessment and findings were discussed with dr Nichols Impression and the plan of care have been dictated as directed. Shaina Dockery nurse practitioner acting as a scribe for Dr. Nichols.
[2016-10-01 16:44] LABS: Glucose,Whole Blood 115 mg/dL (75-99)
--- NOTE | 2016-10-01 17:39 | P.PN ---
Subjective Date of service 10/01/2016. Progress note being dictated for Dr. Hill. Interval history: This is a 56-year-old female admitted with lactic acidosis, diarrhea, dehydration in a patient with recent small bowel obstruction, post exploratory laparotomy, lysis of adhesions, evacuation of 6feet of incarcerated food Bezoar, incarcerated incisional hernia repair. Good diet intake, consuming 50 to 75% with no further diarrhea. Passing flatus and bms. Abdominal dressing changed this morning with reported serous drainage. Afebrile , normal WBC. Urine culture negative, preliminary blood culture negative. TSH 5.23, free T4 0.71. Currently denies abdominal pain, states controlled on Ultram. Denies chest pain, palpitations or increasing shortness of breath. Ambulating, tolerating increase in exertion well. Objective - Vital Signs Vital signs: Vital Signs Temp 96.6 F L 10/01/16 15:00 Pulse 89 10/01/16 15:00 Resp 20 10/01/16 15:00 BP 146/82 10/01/16 15:00 Pulse Ox 97 10/01/16 15:00 Intake & Output 09/30/16 10/01/16 10/01/16 18:59 06:59 18:59 Intake Total 500 Balance 500 Weight 58.967 kg Intake: Oral 500 Other: Voiding Method Toilet Toilet Diaper Diaper # Voids 4 3 2 # Bowel Movements 2 - Exam PHYSICAL EXAM: VITAL SIGNS: As above GENERAL: [Sitting up in bed, no acute distress] HEENT: [Pupils equal conjunctiva normal. Mucosa moist] NECK: [Supple, no JVD] RESPIRATORY EFFORT:[Normal] LUNGS: [Clear to auscultation, no wheezing crackles or rhonchi] CARDIOVASCULAR[regular S1 and S2, no murmurs rubs or gallops, no edema. GI: soft , status post recent surgery ,nondistended, abdominal dressing clean dry and intact, positive bowel sounds. Abdominal binder present.] PSYCH: [Alert and oriented -3, mood and affect normal.] SKIN: [] NEURO: [Gross neurological examination did not reveal any focal deficits, moves all 4 extremities, strength and sensation grossly intact] - Labs CBC & Chem 7: 10/01/16 08:58 10/01/16 08:58 Labs: Abnormal Lab Results - Last 24 Hours (Table) 04/09/30/16 10/01/16 Range/Units 17:08 21:01 02:08 RBC (3.80-5.40) m/uL Hgb (11.4-16.0) gm/dL Hct (34.0-46.0) % RDW (11.5-15.5) % Plt Count (150-450) k/uL BUN (7-17) mg/dL Glucose (74-99) mg/dL POC Glucose (mg/dL) 181 H 111 H 271 H (75-99) mg/dL Calcium (8.4-10.2) mg/dL TIBC (265-497) ug/dL TSH (0.465-4.680) mIU/L Free T4 (0.78-2.19) ng/dL 10/01/16 10/01/16 10/01/16 Range/Units 07:10 08:58 08:58 RBC 3.29 L (3.80-5.40) m/uL Hgb 9.5 L (11.4-16.0) gm/dL Hct 30.3 L (34.0-46.0) % RDW 15.8 H (11.5-15.5) % Plt Count 516 H (150-450) k/uL BUN 5 L (7-17) mg/dL Glucose 134 H (74-99) mg/dL POC Glucose (mg/dL) 249 H (75-99) mg/dL Calcium 7.7 L (8.4-10.2) mg/dL TIBC 193 L (265-497) ug/dL TSH 5.230 H (0.465-4.680) mIU/L Free T4 0.71 L (0.78-2.19) ng/dL 10/01/16 10/01/16 Range/Units 11:44 16:42 RBC (3.80-5.40) m/uL Hgb (11.4-16.0) gm/dL Hct (34.0-46.0) % RDW (11.5-15.5) % Plt Count (150-450) k/uL BUN (7-17) mg/dL Glucose (74-99) mg/dL POC Glucose (mg/dL) 141 H 115 H (75-99) mg/dL Calcium (8.4-10.2) mg/dL TIBC (265-497) ug/dL TSH (0.465-4.680) mIU/L Free T4 (0.78-2.19) ng/dL Assessment and Plan Plan: 1. [Lactic acidosis secondary to diarrhea, dehydration. 2. [Diarrhea secondary to antibiotic use, subsided with discontinuation of antibiotics 3. [Diabetes mellitus type II. 4. History of cavitary lesions bilateral lungs, further outpatient workup with pulmonary. 5. [COPD without acute exacerbation of]. 6. [Ongoing nicotine abuse]. 7. Hypothyroidism, subtherapeutic. 8. Hyperlipidemia 9. Hypertension 10. Left kidney cancer partial nephrectomy 11. Chronic low back pain with degenerative joint disease 12. Anxiety, depression Plan: Continue on current medication regime , PPI, monitoring and symptomatic treatment. Levothyroxine dose increased. Maintain IV fluid hydration. Close monitoring of electrolytes with repeat labs ordered for a.m. close monitoring of Accu-Cheks,currently controlled. Discharge planning in progress for tomorrow as per surgery. Further recommendations to follow. The impression and plan of care has been dictated as directed. : I performed a H&P examination of this patient and discussed the same with the dictator. I agree with the dictator's note. Any additional findings/opinions/ etc. will be noted.
--- NOTE | 2016-10-01 20:42 | PN ---
DATE OF SERVICE: 10/01/2016 This 56-year-old woman who was admitted with lactic acid and dehydration is being closely monitored. Seen and evaluated the patient along with the nurse practitioner. Please refer to the nurse practitioner's notes and impressions documented as a scribe for further information. Continue to monitor. Further recommendations to follow.
[2016-10-01 21:03] LABS: Glucose,Whole Blood 58 mg/dL (75-99)
[2016-10-01 21:15] LABS: Glucose,Whole Blood 63 mg/dL (75-99)
[2016-10-01 21:31] LABS: Glucose,Whole Blood 80 mg/dL (75-99)
[2016-10-01] MEDS: ATORVASTATIN 40 MG TAB PO SCH (22:27)
[2016-10-01 23:12] VITALS: TEMP 97.9
[2016-10-02 02:06] LABS: Glucose,Whole Blood 173 mg/dL (75-99)
[2016-10-02] MEDS: LEVOTHYROXINE 100 MCG TAB PO SCH (06:03)
[2016-10-02] MEDS ORDERED: LEVOTHYROXINE 25 MCG TAB PO SCH (06:30)
[2016-10-02 07:16] LABS: Glucose,Whole Blood 134 mg/dL (75-99)
[2016-10-02 07:50] VITALS: BP 139/72; PULSE 80; RESP 20
[2016-10-02] MEDS: SYMBICORT 160-4.5 MCG INHALER INHALATION SCH (07:55)
[2016-10-02] MEDS: SODIUM CHLORIDE 0.9% 1,000 ML IV SCH (08:02)
[2016-10-02] MEDS: INSULIN GLARGINE 100 UNIT/ML 10 ML VIAL SQ SCH (08:17)
[2016-10-02] MEDS: NICOTINE 21MG/24HR PATCH TRANSDERM SCH (08:18)
[2016-10-02] MEDS: INSULIN LISPRO (humaLOG) 300 UNIT/3 ML VIAL SQ SCH ×3 (08:19→12:28)
[2016-10-02] MEDS: ASPIRIN 81 MG CHEW PO SCH (08:19)
[2016-10-02] MEDS: CLOPIDOGREL 75 MG TAB PO SCH (08:19)
[2016-10-02] MEDS: PANTOPRAZOLE 40 MG TABLET PO SCH (08:19)
[2016-10-02] MEDS: VENLAFAXINE HCL ER 150 MG CAP PO SCH (08:19)
[2016-10-02] MEDS: traMADol 50 MG TAB PO SCH ×2 (08:23→11:00)
[2016-10-02 12:06] LABS: Glucose,Whole Blood 75 mg/dL (75-99)
--- NOTE | 2016-10-02 14:36 | P.DS ---
Providers Date of admission: 09/30/16 06:29 Expected date of discharge: 10/02/16 Attending physician: Tiburcio Harrington Consults: 09/30/16 06:32 Consult Physician Routine Consulting Provider: Danielle Hill Consult Reason/Comments: medical managment Do you want consulting provider notified?: Yes Primary care physician: Alexandre Hogan [facility] Course: This is a 56-year-old female who presented on September 30 to the emergency room for chief complaint of developing nausea vomiting abdominal pain. Patient stated that she did check her blood sugar prior to coming into the emergency room was greater than 450. Patient was just discharged on September 25 at that time the patient was treated for small bowel obstruction status post exploratory laparotomy open with lysis of adhesions evacuation of 6 feet of incarcerated food and a repair of incarcerated incisional hernia with an abdominal washout. Patient stated that she been doing relatively well up until the day of the event. X-ray of the abdomen obtained in the emergency room possible ileus no evidence of an obstruction lactic acid was elevated to 4.4 be checked was 1.3 electrolytes were reviewed within normal limits. At the time of this evaluation the patient's blood sugar was 231. Patient denied abdominal pain and stated that she was hungry and no longer was experiencing an nausea sensation or vomiting episodes patient was monitored closely throughout the hospitalization. Patient was able to have diet advanced was tolerating. Time of discharge patient was passing gas tolerating a diet had no frequent stooling Is up ambulating in the [place] blood sugars were monitored closely by medicine service. Patient's hemoglobin A1c was 11.7. Insulin was adjusted for better glycemic control the blood and urine cultures were negative patient had no further frequent loose stools. Patient was felt to be hemodynamically stable and appropriate proceed with a discharge to home Impression Present on admission nausea vomiting frequent stooling suspect ileus with no evidence of a small bowel obstruction Present on admission hypoglycemic episode Type 2 diabetes insulin requiring uncontrolled without evidence of DKA hemoglobin A1c 14 Electrolyte abnormality significant hypo-magnesium, hypophosphorous present on admission Recent discharge 25 of September small bowel resection status post exploratory laparotomy open with lysis of adhesions and evacuation of 6 feet of incarcerated food repair of incarcerated incisional hernia abdominal washout Present on admission abdominal pain nausea vomiting abdominal findings consistent with an ileus no evidence of small bowel obstruction unexpected postsurgical condition The above dictated assessment and findings were discussed with dr Nancy Manriquez covering for Dr. Nichols. Impression and the plan of care have been dictated as directed. Shaina Dockery nurse practitioner acting as a scribe for Dr. Mcmanus covering for Dr. Nichols Patient Condition at Discharge: Fair Plan - Discharge Summary Discharge Medication List Clopidogrel [Plavix] 75 mg PO DAILY 04/28/15 [History] Levothyroxine Sodium [Synthroid] 200 mcg PO DAILY 04/28/15 [History] Omeprazole [PriLOSEC] 40 mg PO DAILY 04/28/15 [History] Venlafaxine HCl ER [Effexor XR] 150 mg PO DAILY 04/28/15 [History] Ergocalciferol [Vitamin D2 (DRISDOL)] 50,000 unit PO TU 10/11/15 [History] Insulin Glargine,Hum.rec.anlog [Lantus Solostar] 20 unit SQ W/BRKFST 07/05/16 [ History] Aspirin [Adult Low Dose Aspirin EC] 81 mg PO DAILY 09/04/16 [History] Atorvastatin [Lipitor] 40 mg PO HS 09/04/16 [History] Amoxic-Pot Clav 875-125Mg [Augmentin 875-125] 1 tab PO Q12HR #10 tablet [Rx] Insulin Glulisine [Apidra] 10 unit SQ AC-BID #0 09/24/16 [Rx] Nicotine 21Mg/24Hr Patch [Habitrol] 1 patch TRANSDERM DAILY #30 patch 09/24/16 [ Rx] Albuterol Inhaler [Ventolin Hfa Inhaler] 1 - 2 puff INHALATION Q6HR PRN #1 inhaler 09/25/16 [Rx] Insulin Glargine,Hum.rec.anlog [Lantus Solostar] 30 unit SQ HS #0 09/25/16 [Rx] traMADol HCl [Ultram] 50 mg PO QID #30 tab 09/25/16 [Rx] Budesonide-Formot 160-4.5 Mcg [Symbicort 160-4.5 Mcg Inhaler] 2 puff INHALATION RT-BID 09/30/16 [History] Follow up Appointment(s)/Referral(s): Kiah Schroeder MD [Primary Care Provider] - 1-2 days [facility], [NON-STAFF] - Piedad Nichols MD [STAFF PHYSICIAN] - 1 Week Activity/Diet/Wound Care/Special Instructions: No lifting for 4 weeks anything greater than 4 pounds Protein shakes at least twice a day Diet consist of a soft carb Accu-Cheks before meals and at bedtime maintain a log intake to your primary care provider's office on Friday Discharge Disposition: HOME WITH HOME HEALTH SERVICES
--- NOTE | 2016-10-02 22:35 | P.PN ---
Subjective Date of service 10/02/2016. Progress note being dictated for Dr. Hill. Interval history: This is a 56-year-old female admitted with lactic acidosis, diarrhea, dehydration in a patient with recent small bowel obstruction, post exploratory laparotomy, lysis of adhesions, evacuation of 6feet of incarcerated food Bezoar, incarcerated incisional hernia repair. Doing well, ambulating in hallway, tolerating increase in exertion well. Consuming 75-100 % with no further diarrhea. Positive bowel movement . Afebrile, Urine culture negative, preliminary blood culture negative. Abdominal pain controlled on Ultram. Denies chest pain, palpitations or increasing shortness of breath. Objective - Vital Signs Vital signs: Vital Signs Temp 97.9 F 10/02/16 07:00 Pulse 80 10/02/16 07:00 Resp 20 10/02/16 07:00 BP 139/72 10/02/16 07:00 Pulse Ox 95 10/02/16 07:00 Intake & Output 10/01/16 10/02/16 10/02/16 18:59 06:59 18:59 Intake Total 440 240 Balance 440 240 Intake: Oral 440 240 Other: Voiding Method Toilet Toilet Diaper Diaper # Voids 2 1 # Bowel Movements 0 - Exam PHYSICAL EXAM: VITAL SIGNS: As above GENERAL: [Sitting up in bed, no acute distress] HEENT: [Pupils equal conjunctiva normal. Mucosa moist] NECK: [Supple, no JVD] RESPIRATORY EFFORT:[Normal] LUNGS: [Clear to auscultation, no wheezing crackles or rhonchi] CARDIOVASCULAR[regular S1 and S2, no murmurs rubs or gallops, no edema. GI: soft , status post recent surgery ,nondistended, abdominal dressing clean dry and intact, positive bowel sounds. Abdominal binder present.] PSYCH: [Alert and oriented -3, mood and affect normal.] NEURO: [Gross neurological examination did not reveal any focal deficits, moves all 4 extremities, strength and sensation grossly intact] Microbiology 09/30/16 02:02 Blood Blood Culture - Preliminary No Growth after 48 hours 09/30/16 02:02 Urine,Voided Urine Culture - Final - Labs CBC & Chem 7: 10/01/16 08:58 10/01/16 08:58 Labs: Abnormal Lab Results - Last 24 Hours (Table) 10/01/16 10/01/16 10/01/16 Range/Units 08:58 11:44 16:42 BUN 5 L (7-17) mg/dL Glucose 134 H (74-99) mg/dL POC Glucose (mg/dL) 141 H 115 H (75-99) mg/dL Calcium 7.7 L (8.4-10.2) mg/dL TIBC 193 L (265-497) ug/dL TSH 5.230 H (0.465-4.680) mIU/L Free T4 0.71 L (0.78-2.19) ng/dL 10/01/16 10/01/16 10/02/16 Range/Units 20:57 21:14 02:02 BUN (7-17) mg/dL Glucose (74-99) mg/dL POC Glucose (mg/dL) 58 L 63 L 173 H (75-99) mg/dL Calcium (8.4-10.2) mg/dL TIBC (265-497) ug/dL TSH (0.465-4.680) mIU/L Free T4 (0.78-2.19) ng/dL 10/02/16 Range/Units 07:06 BUN (7-17) mg/dL Glucose (74-99) mg/dL POC Glucose (mg/dL) 134 H (75-99) mg/dL Calcium (8.4-10.2) mg/dL TIBC (265-497) ug/dL TSH (0.465-4.680) mIU/L Free T4 (0.78-2.19) ng/dL Assessment and Plan Plan: 1. [Lactic acidosis secondary to diarrhea, dehydration. 2. [Diarrhea secondary to antibiotic use, subsided with discontinuation of antibiotics 3. [Diabetes mellitus type II. 4. History of cavitary lesions bilateral lungs, further outpatient workup with pulmonary. 5. [COPD without acute exacerbation of]. 6. [Ongoing nicotine abuse]. 7. Hypothyroidism, subtherapeutic. Levothyroxine dose increased. 8. Hyperlipidemia 9. Hypertension 10. Left kidney cancer partial nephrectomy 11. Chronic low back pain with degenerative joint disease 12. Anxiety, depression Plan: Continue on current medication regime , PPI, monitoring and symptomatic treatment. Discharge planning in progress for today as per surgery. Follow up with Dr. Schroeder in 3 days. close monitoring of Accu-Cheks, patient to maintain log and take to follow-up visit with PCP for further recommendations. Repeat in 3 months TSH/FREE T4 as levothyroxine dose increased. The impression and plan of care has been dictated as directed. : I performed a H&P examination of this patient and discussed the same with the dictator. I agree with the dictator's note. Any additional findings/opinions/ etc. will be noted.
--- NOTE | 2016-10-02 22:51 | PN ---
DATE OF SERVICE: 10/02/2016 This 56-year-old woman who was admitted after lactic acidosis, dehydration, is improving significantly. Seen and evaluated the patient along with nurse practitioner. Please refer to the nurse practitioner notes and impression documented as a scribe for further information. Further recommendations to follow.
== END 2016-10-02 15:31 | disposition home health service (06) | DRG 389 ==
LOC: EC 01:12 → 4MS4W 06:29
PROVIDERS: ADMIT Surgery; ATTEND Surgery
DX: K56.7 Ileus, unspecified (principal); E87.2 Acidosis; K52.1 Toxic gastroenteritis and colitis; E11.42 Type 2 diabetes mellitus with diabetic polyneuropathy; E11.649 Type 2 diabetes mellitus with hypoglycemia without coma; E03.9 Hypothyroidism, unspecified; E11.65 Type 2 diabetes mellitus with hyperglycemia; E78.5 Hyperlipidemia, unspecified; E86.0 Dehydration; F17.200 Nicotine dependence, unspecified, uncomplicated; F32.9 Major depressive disorder, single episode, unspecified; F41.9 Anxiety disorder, unspecified; G25.81 Restless legs syndrome; G89.29 Other chronic pain; I10 Essential (primary) hypertension; I25.10 Atherosclerotic heart disease of native coronary artery without angina pectoris; I25.2 Old myocardial infarction; J44.9 Chronic obstructive pulmonary disease, unspecified; J45.909 Unspecified asthma, uncomplicated; K21.9 Gastro-esophageal reflux disease without esophagitis; F12.90 Cannabis use, unspecified, uncomplicated; M54.5 Low back pain; E83.42 Hypomagnesemia; E83.39 Other disorders of phosphorus metabolism; T36.0X5A Adverse effect of penicillins, initial encounter; J98.9 Respiratory disorder, unspecified; Z79.02 Long term (current) use of antithrombotics/antiplatelets; Z79.4 Long term (current) use of insulin; Z79.82 Long term (current) use of aspirin; Z79.899 Other long term (current) drug therapy; Z91.14 Patient's other noncompliance with medication regimen; Z85.528 Personal history of other malignant neoplasm of kidney; Z88.5 Allergy status to narcotic agent; Z88.2 Allergy status to sulfonamides; Z88.8 Allergy status to other drugs, medicaments and biological substances; Z91.040 Latex allergy status; Z82.49 Family history of ischemic heart disease and other diseases of the circulatory system; Y92.009 Unspecified place in unspecified non-institutional (private) residence as the place of occurrence of the external cause
CPT/HCPCS: 36415; 71010; 74020; 80048; 80053; 81003; 82009; 82728; 83036; 83540; 83550; 83605; 83735; 84100; 84439; 84443; 85025; 85610; 85730; 87040; 87086; 93005; 94640; 96361; 96374; 96375; 96376; 99285

== ENCOUNTER 2016-10-21 17:12 | Emergency (ER) | payer OTHER ==
[2016-10-21 17:19] VITALS: RESP 18
[2016-10-21 17:48] LABS: Anisocytosis Slight; Basophils % (A) 0 %; CH 29.5; CHCM 32.5; Eosinophils # (A) 0.3 k/uL (0-0.7); Eosinophils % (A) 3 %; HCT 36.7 % (34.0-46.0); HDW 3.01; HGB 11.7 gm/dL (11.4-16.0); Luc # (Auto) 0.13; Luc % (Auto) 1; Lymphocytes # (A) 2.5 k/uL (1.0-4.8); Lymphocytes % (A) 22 %; MCH 29.1 pg (25.0-35.0); MCHC 31.9 g/dL (31.0-37.0); MCV 91.1 fL (80.0-100.0); Mean Platelet Volume 7.2; Monocytes # (A) 0.4 k/uL (0-1.0); Monocytes % (A) 3 %; Neutrophils # (A) 7.9 k/uL (1.3-7.7); Neutrophils % (A) 70 %; RBC 4.03 m/uL (3.80-5.40); RDW 16.4 % (11.5-15.5); WBC 11.3 k/uL (3.8-10.6); WBC (Perox) 11.68
[2016-10-21 18:03] LABS: ALT 28 U/L (9-52); AST 18 U/L (14-36); Alkaline Phosphatase 115 U/L (38-126); Anion Gap 16 mmol/L; Blood Urea Nitrogen 22 mg/dL (7-17); Calcium 10.3 mg/dL (8.4-10.2); Carbon Dioxide 27 mmol/L (22-30); Chloride 100 mmol/L (98-107); Glucose 79 mg/dL (74-99); Non-African American GFR(MDRD) >60 (>60 ml/min/1.73 sqM); Potassium 3.8 mmol/L (3.5-5.1); Sodium 143 mmol/L (137-145); Total Bilirubin 0.3 mg/dL (0.2-1.3)
--- NOTE | 2016-10-21 18:38 | ED ---
Recheck HPI - General Chief Complaint: Recheck/Abnormal Lab/Rx Stated Complaint: Hypergylcemia Time Seen by Provider: 10/21/16 17:12 Source: patient, EMS, RN notes reviewed Mode of arrival: EMS Limitations: no limitations - History of Present Illness Initial Comments: This is a 56-year-old female history diabetes who apparently took her medications today and apparently did eat but after taking apple was noted she did not respond and wake up easily. She was found have a low blood sugar. She was brought here by EMS. She was given glucose which did improve her sugar and her responsiveness. She is still a bit confused upon arrival for EMS. No reports of trauma fevers chills nausea vomiting sweats or other symptoms. MD Complaint: abnormal lab - Related Data Home Medications Medication Instructions Recorded Confirmed Clopidogrel [Plavix] 75 mg PO DAILY 04/28/15 10/21/16 Levothyroxine Sodium [Synthroid] 200 mcg PO DAILY 04/28/15 10/21/16 Ergocalciferol [Vitamin D2 50,000 unit PO TU 10/11/15 10/21/16 (DRISDOL)] Insulin Glargine,Hum.rec.anlog 20 unit SQ W/BRKFST 07/05/16 10/21/16 [Lantus Solostar] Aspirin [Adult Low Dose Aspirin EC] 81 mg PO DAILY 09/04/16 10/21/16 Budesonide-Formot 160-4.5 Mcg 2 puff INHALATION RT-BID 09/30/16 10/21/16 [Symbicort 160-4.5 Mcg Inhaler] Albuterol Inhaler [Ventolin Hfa 1 - 2 puff INHALATION RT-Q6H PRN 10/21/16 Inhaler] Atorvastatin [Lipitor] 80 mg PO HS 10/21/16 10/21/16 Clindamycin [Cleocin] 150 mg PO Q8H 10/21/16 10/21/16 HYDROcodone/APAP 5-325MG [[place] 1 tab PO Q6HR PRN 10/21/16 10/21/16 5-325] Insulin Glargine,Hum.rec.anlog 50 unit SQ HS 10/21/16 10/21/16 [Lantus Solostar] Insulin Glulisine [Apidra] See Protocol SQ AC-BID 10/21/16 10/21/16 Loratadine [Claritin] 10 mg PO DAILY PRN 10/21/16 10/21/16 Omeprazole [PriLOSEC] 40 mg PO DAILY 10/21/16 10/21/16 Venlafaxine HCl [Venlafaxine HCl 225 mg PO DAILY 10/21/16 10/21/16 ER] Previous Rx's Medication Instructions Recorded Insulin Glulisine [Apidra] 10 unit SQ AC-BID #0 09/24/16 Allergies Allergy/AdvReac Type Severity Reaction Status Date / Time latex Allergy Rash/Hives Verified 10/21/16 17:31 Sulfa (Sulfonamide Allergy Rash/Hives Verified 10/21/16 17:31 Antibiotics) venom-honey bee Allergy Anaphylaxis Verified 10/21/16 17:31 morphine AdvReac Decreased Verified 10/21/16 17:31 Blood Pressure prochlorperazine edisylate AdvReac Vomiting Verified 10/21/16 17:31 [From Compazine] prochlorperazine maleate AdvReac Vomiting Verified 10/21/16 17:31 [From Compazine] Review of Systems ROS Statement: Those systems with pertinent positive or pertinent negative responses have been documented in the HPI. ROS Other: All systems not noted in ROS Statement are negative. Past Medical History Past Medical History: Diabetes Mellitus Additional Past Medical History / Comment(s): Pt recently admitted to [facility] on 09/16/16 with SBO with surgery/possible septic emboli with cavitary lesions bilateral lungs. Other hx: left renal cell carcinoma status post partial nephrectomy, CVA 4, diabetes mellitus, COPD, hypothyroidism, chronic back pain , urine checked infection with sepsis secondary to ESBL producing E. coli in April 2016 requiring a PICC line insertion for IV antibiotics, coronary artery disease with previous [place], restless leg syndrome, peripheral neuropathy, hypertension, hypothyroidism, hyperlipidemia, GE reflux, depression Last Myocardial Infarction Date:: 2012 History of Any Multi-Drug Resistant Organisms: ESBL Date of last positivie culture/infection: 05/07/16 ESBL, 05/15/16 VRE MDRO Source:: URINE E.COLI, EC GALLINARUM Past Surgical History: Appendectomy, Bowel Resection, Section, Heart Catheterization Additional Past Surgical History / Comment(s): 09/23/16 exploratory laparotomy, lysis of adhesions bowel resection d/t obstruction evacuation incarcerated food bezoar/repair incarcerated incisional hernia with abdominal washout. Other sx hx: thyroidectomy(non functioning) heart cath 06-18-12 100% occluded LAD unable to stent, partial nephrectomy for a left kidney renal cell carcinoma, PICC line insertion (since removed), colonoscopy, bilateral cataract removal with lens implants, 2 C-Sections. Past Anesthesia/Blood Transfusion Reactions: No Reported Reaction Past Psychological History: Anxiety, Depression Additional Psychological History / Comment(s): TAKES EFFEXOR FOR DEPRESSION STATED SHE FEELS MAINTAINED ON THAT MEDICATION.DENIES ANY THOUGHTS OF HARMING SELF. Pt lives with her significant other in [facility] and is independant. She is able to drive, but does not own a car. She arranges rides thru [place] or uses a cab. Smoking Status: Former smoker Past Alcohol Use History: None Reported Additional Past Alcohol Use History / Comment(s): STARTED SMOKING AT AGE 10.HAD WORKED UP TO 3 PPD BUT QUIT 09/16/16. Past Drug Use History: Marijuana Additional Drug Use History / Comment(s): [facility] USES MARIJUANA-LASRT USED 3 WEEKS AGO. - Past Family History Father Family Medical History: Myocardial Infarction ([place]) Additional Family Medical History / Comment(s): from [place] at age 48 Mother Family Medical History: Cancer Additional Family Medical History / Comment(s): maeve breasts removed d/t cancer, hysterectomy d/t cancer General Exam - General Exam Comments Initial Comments: This is a well-developed well-nourished awake alert oriented history female Limitations: no limitations General appearance: alert, in no apparent distress Head exam: Present: atraumatic, normocephalic, normal inspection Eye exam: Present: normal appearance, PERRL, EOMI. Absent: scleral icterus, conjunctival injection, periorbital swelling ENT exam: Present: normal exam, mucous membranes moist Neck exam: Present: normal inspection. Absent: tenderness, meningismus, lymphadenopathy Respiratory exam: Present: normal lung sounds bilaterally. Absent: respiratory distress, wheezes, rales, rhonchi, stridor Cardiovascular Exam: Present: regular rate, normal rhythm, normal heart sounds. Absent: systolic murmur, diastolic murmur, rubs, gallop, clicks GI/Abdominal exam: Present: soft, normal bowel sounds. Absent: distended, tenderness, guarding, rebound, rigid Extremities exam: Present: normal inspection, full ROM, normal capillary refill. Absent: tenderness, pedal edema, joint swelling, calf tenderness Back exam: Present: normal inspection Neurological exam: Present: alert, oriented X3, CN II-XII intact Psychiatric exam: Present: normal affect, normal mood Skin exam: Present: warm, dry, intact, normal color. Absent: rash Course Vital Signs 10/21/16 17:16 Temperature 97.8 F Pulse Rate 99 Respiratory 18 Rate Blood Pressure 143/77 O2 Sat by Pulse 100 Oximetry - Reevaluation(s) Reevaluation #1: 10/21/16 18:38 The patient does have chronic abdominal pain she is complaining somewhat of pain to her exam was unremarkable she'll be given some Bentyl. She will be discharged her mentation and glucose level has remained adequate. Medical Decision Making - Lab Data Result diagrams: 10/21/16 17:36 10/21/16 17:36 Lab Results 10/21/16 10/21/16 Range/Units 17:36 17:36 WBC 11.3 H (3.8-10.6) k/uL RBC 4.03 (3.80-5.40) m/uL Hgb 11.7 (11.4-16.0) gm/dL Hct 36.7 (34.0-46.0) % MCV 91.1 (80.0-100.0) fL MCH 29.1 (25.0-35.0) pg MCHC 31.9 (31.0-37.0) g/dL RDW 16.4 H (11.5-15.5) % Plt Count 406 (150-450) k/uL Neutrophils % 70 % Lymphocytes % 22 % Monocytes % 3 % Eosinophils % 3 % Basophils % 0 % Neutrophils # 7.9 H (1.3-7.7) k/uL Lymphocytes # 2.5 (1.0-4.8) k/uL Monocytes # 0.4 (0-1.0) k/uL Eosinophils # 0.3 (0-0.7) k/uL Basophils # 0.0 (0-0.2) k/uL Anisocytosis Slight Sodium 143 (137-145) mmol/L Potassium 3.8 (3.5-5.1) mmol/L Chloride 100 (98-107) mmol/L Carbon Dioxide 27 (22-30) mmol/L Anion Gap 16 mmol/L BUN 22 H (7-17) mg/dL Creatinine 0.81 (0.52-1.04) mg/dL Est GFR (MDRD) Af Amer >60 (>60 ml/min/1.73 sqM) Est GFR (MDRD) Non-Af >60 (>60 ml/min/1.73 sqM) Glucose 79 (74-99) mg/dL Calcium 10.3 H (8.4-10.2) mg/dL Total Bilirubin 0.3 (0.2-1.3) mg/dL AST 18 (14-36) U/L ALT 28 (9-52) U/L Alkaline Phosphatase 115 (38-126) U/L Total Protein 8.0 (6.3-8.2) g/dL Albumin 4.6 (3.5-5.0) g/dL Disposition Clinical Impression: Hypoglycemia, Chronic abdominal pain Disposition: HOME SELF-CARE Condition: Good Instructions: Abdominal Pain (ED), Hypoglycemia in a Person with Diabetes (ED)
[2016-10-21] MEDS ORDERED: DICYCLOMINE 10 MG CAP PO STA (18:40)
[2016-10-21 18:45] VITALS: BP 122/69; PULSE 93; TEMP 98.9
[2016-10-22 07:35] LABS: Glucose,Whole Blood 121 mg/dL (75-99)
== END 2016-10-21 18:47 | disposition home or self-care (01) ==
LOC: EC 17:12
DX: E11.649 Type 2 diabetes mellitus with hypoglycemia without coma (principal); G89.29 Other chronic pain; R10.9 Unspecified abdominal pain; E11.40 Type 2 diabetes mellitus with diabetic neuropathy, unspecified; E03.9 Hypothyroidism, unspecified; I25.10 Atherosclerotic heart disease of native coronary artery without angina pectoris; I25.2 Old myocardial infarction; I10 Essential (primary) hypertension; E78.5 Hyperlipidemia, unspecified; K21.9 Gastro-esophageal reflux disease without esophagitis; F32.9 Major depressive disorder, single episode, unspecified; J44.9 Chronic obstructive pulmonary disease, unspecified; Z86.73 Personal history of transient ischemic attack (TIA), and cerebral infarction without residual deficits; Z95.5 Presence of coronary angioplasty implant and graft; Z88.2 Allergy status to sulfonamides; Z88.5 Allergy status to narcotic agent; Z88.8 Allergy status to other drugs, medicaments and biological substances; Z91.030 Bee allergy status; Z91.040 Latex allergy status; Z79.02 Long term (current) use of antithrombotics/antiplatelets; Z79.4 Long term (current) use of insulin; Z79.51 Long term (current) use of inhaled steroids; Z79.82 Long term (current) use of aspirin; Z79.899 Other long term (current) drug therapy; Z87.891 Personal history of nicotine dependence
CPT/HCPCS: 36415; 80053; 85025; 99285

== ENCOUNTER 2016-10-25 10:02 | Inpatient (IN) | payer OTHER ==
[2016-10-24 11:59] VITALS: BMI 23.9
[~2016-10-25 10:02] MED LIST: DEXAMETHASONE SOD PHOSPHATE 10 MG/ML 1 ML VIAL IV ONE; HEPARIN SODIUM,PORCINE 5,000 UNIT/ML 1 ML VIAL SQ ONE; MIDAZOLAM 2 MG/2 ML VIAL IV PRN; ONDANSETRON 4 MG/2 ML VIAL IVP ONE; Pre Op ABX Message 1 EACH MISC MISCELLANE ONE; SCOPOLAMINE 1.5MG/72HR PATCH TRANSDERM ONE
[2016-10-25] MEDS ORDERED: VANCOMYCIN 1,500 MG in SODIUM CHLORIDE 0.9% 250 ML IVPB ONE (11:00)
[2016-10-25] MEDS: LACTATED RINGERS 1,000 ML IV SCH (11:25)
[2016-10-25] MEDS ORDERED: LIDOCAINE 1% 20 ML VIAL (10MG/ML) FOR IV START INTRADERMA ONE (11:26)
[2016-10-25 11:29] LABS: Glucose,Whole Blood 179 mg/dL (75-99)
[2016-10-25 11:32] LABS: Anisocytosis Slight; Basophils % (A) 0 %; CH 29.4; CHCM 32.4; Eosinophils # (A) 0.3 k/uL (0-0.7); Eosinophils % (A) 5 %; HCT 34.4 % (34.0-46.0); HGB 11.3 gm/dL (11.4-16.0); Luc # (Auto) 0.11; Luc % (Auto) 2; Lymphocytes % (A) 32 %; MCH 30.1 pg (25.0-35.0); MCV 91.2 fL (80.0-100.0); Monocytes # (A) 0.2 k/uL (0-1.0); Monocytes % (A) 4 %; Neutrophils # (A) 3.5 k/uL (1.3-7.7); Neutrophils % (A) 58 %; RBC 3.77 m/uL (3.80-5.40); RDW 16.2 % (11.5-15.5); WBC 6.1 k/uL (3.8-10.6); WBC (Perox) 6.23
--- NOTE | 2016-10-25 14:05 | P.GSHP ---
History of Present Illness H&P Date: 10/25/16 CHIEF COMPLAINT: Chronic abdominal wound. HISTORY OF PRESENT ILLNESS: The patient is a 56-year-old female who presents personal history of coafr-gwne-vmlnkrtbn enterococcus. Separately she has a chronic abdominal wound. Now she preseents for debridement. PAST MEDICAL HISTORY: Please see list. PAST SURGICAL HISTORY: Please see list. MEDICATIONS: Please see list. ALLERGIES: Please see list. SOCIAL HISTORY: No illicit drug use FAMILY HISTORY: No reports of Crohn disease or ulcerative colitis. REVIEW OF ORGAN SYSTEMS: CONSTITUTIONAL: No reports of fevers or chills. GI: Denies any blood in stools or constipation. PHYSICAL EXAM: VITAL SIGNS: Stable GENERAL: Well-developed and pleasant in no acute distress. HEENT: No scleral icterus. Extraocular movements grossly intact. Moist buccal mucosa. NECK: Supple without lymphadenopathy. CHEST: Unlabored respirations. Equal bilateral excursions. CARDIOVASCULAR: Regular rate and rhythm. Distal 2+ pulses. ABDOMEN: Soft, nondistended. Moderate fibrinous exudate midline wound 5 x 6 cm extending to the subcutaneous tissue and fascia. MUSCULOSKELETAL: No clubbing, cyanosis, or edema. ASSESSMENT: 1. Chronic abdominal wound. 2. History of rscwn-lvgu-ankfbrqml enterococcus. PLAN: 1. Vancomycin preoperatively. 2. Recommend excisional wound debridement with application of wound VAC. 3. Inpatient hospitalization discussed. 4. DVT prophylaxis. 5. Antibiotic prophylaxis however with treatment vancomycin. Past Medical History Past Medical History: COPD, CVA/TIA, Diabetes Mellitus, GERD/Reflux, Hyperlipidemia, Hypertension, Myocardial Infarction (DC), Thyroid Disorder Additional Past Medical History / Comment(s): Open incision to abdomen.Pt recently admitted to [facility] on 09/16/16 with SBO with surgery/possible septic emboli with cavitary lesions bilateral lungs. Other hx: left renal cell carcinoma status post partial nephrectomy, CVA 4, diabetes mellitus, COPD, hypothyroidism, chronic back pain, urine checked infection with sepsis secondary to ESBL producing E. coli in April 2016 requiring a PICC line insertion for IV antibiotics, coronary artery disease with previous [place], restless leg syndrome, peripheral neuropathy, hypertension, hypothyroidism, hyperlipidemia, GE reflux, depression Last Myocardial Infarction Date:: 2012 History of Any Multi-Drug Resistant Organisms: ESBL Date of last positivie culture/infection: 05/07/16 ESBL, 05/15/16 VRE MDRO Source:: URINE E.COLI, EC GALLINARUM Past Surgical History: Appendectomy, Bowel Resection, Section, Heart Catheterization Additional Past Surgical History / Comment(s): 09/23/16 exploratory laparotomy, lysis of adhesions bowel resection d/t obstruction evacuation incarcerated food bezoar/repair incarcerated incisional hernia with abdominal washout. Other sx hx: thyroidectomy(non functioning) heart cath 06-18-12 100% occluded LAD unable to stent, partial nephrectomy for a left kidney renal cell carcinoma, PICC line insertion (since removed), colonoscopy, bilateral cataract removal with lens implants, 2 C-Sections. Past Anesthesia/Blood Transfusion Reactions: No Reported Reaction Past Psychological History: Anxiety, Depression Additional Psychological History / Comment(s): TAKES EFFEXOR FOR DEPRESSION STATED SHE FEELS MAINTAINED ON THAT MEDICATION.DENIES ANY THOUGHTS OF HARMING SELF. Pt lives with her significant other in [facility] and is independant. She is able to drive, but does not own a car. She arranges rides thru [place] or uses a cab. Smoking Status: Former smoker Past Alcohol Use History: None Reported Additional Past Alcohol Use History / Comment(s): STARTED SMOKING AT AGE 10.HAD WORKED UP TO 3 PPD BUT QUIT 09/16/16. Past Drug Use History: Marijuana Additional Drug Use History / Comment(s): [facility] USES MARIJUANA-LAST USED September prior to surg. - Past Family History Father Family Medical History: Myocardial Infarction ([place]) Additional Family Medical History / Comment(s): from [place] at age 48 Mother Family Medical History: Cancer Additional Family Medical History / Comment(s): maeve breasts removed d/t cancer, hysterectomy d/t cancer Medications and Allergies Home Medications Medication Instructions Recorded Confirmed Type Clopidogrel [Plavix] 75 mg PO DAILY 04/28/15 10/24/16 History Levothyroxine Sodium [Synthroid] 200 mcg PO QAM 04/28/15 10/24/16 History Ergocalciferol [Vitamin D2 50,000 unit PO TU 10/11/15 10/24/16 History (ISDOL)] Insulin Glargine,Hum.rec.anlog 20 unit SQ W/BRKFST 07/05/16 10/24/16 History [Lantus Solostar] Aspirin [Adult Low Dose Aspirin EC] 81 mg PO DAILY 09/04/16 10/24/16 History Budesonide-Formot 160-4.5 Mcg 2 puff INHALATION RT-BID 09/30/16 10/24/16 History [Symbicort 160-4.5 Mcg Inhaler] Albuterol Inhaler [Ventolin Hfa 1 - 2 puff INHALATION RT-Q6H PRN 10/21/16 History Inhaler] Atorvastatin [Lipitor] 80 mg PO HS 10/21/16 10/24/16 History Insulin Glargine,Hum.rec.anlog 50 unit SQ HS 10/21/16 10/24/16 History [Lantus Solostar] Insulin Glulisine [Apidra] See Protocol SQ AC-BID 10/21/16 10/24/16 History Loratadine [Claritin] 10 mg PO DAILY PRN 10/21/16 10/24/16 History Omeprazole [PriLOSEC] 40 mg PO QAM 10/21/16 10/24/16 History Venlafaxine HCl [Venlafaxine HCl 225 mg PO QAM 10/21/16 10/24/16 History ER] Insulin Glulisine [Apidra] 10 unit SQ BID-W/MEALS 10/24/16 10/24/16 History Allergies Allergy/AdvReac Type Severity Reaction Status Date / Time latex Allergy Rash/Hives Verified 10/25/16 11:00 Sulfa (Sulfonamide Allergy Rash/Hives Verified 10/25/16 11:00 Antibiotics) venom-honey bee Allergy Anaphylaxis Verified 10/25/16 11:00 morphine AdvReac Decreased Verified 10/25/16 11:00 Blood Pressure prochlorperazine edisylate AdvReac Vomiting Verified 10/25/16 11:00 [From Compazine] prochlorperazine maleate AdvReac Vomiting Verified 10/25/16 11:00 [From Compazine] Surgical - Exam Vital Signs Temp Pulse Resp BP Pulse Ox 98.1 F 90 16 118/76 100 10/25/16 10:50 10/25/16 10:50 10/25/16 10:50 10/25/16 10:50 10/25/16 10:50 Results - Labs 10/25/16 11:22 Abnormal Lab Results - Last 24 Hours (Table) 10/25/16 10/25/16 Range/Units 11:19 11:22 RBC 3.77 L (3.80-5.40) m/uL Hgb 11.3 L (11.4-16.0) gm/dL RDW 16.2 H (11.5-15.5) % POC Glucose (mg/dL) 179 H (75-99) mg/dL
[2016-10-25] MEDS ORDERED: LIDOCAINE 1% INJ 10MG/ML (20 ML MDV) ONE (14:38)
[2016-10-25] MEDS ORDERED: MIDAZOLAM 2 MG/2 ML VIAL ONE (14:38)
[2016-10-25] MEDS ORDERED: fentaNYL (PF) 50 MCG/ML 2 ML AMP ONE (14:38)
[2016-10-25] MEDS ORDERED: ePHEDrine 50 MG/ML 1 ML AMP ONE (14:38)
[2016-10-25] MEDS ORDERED: SUCCINYLCHOLINE CHLORIDE 100 MG/5 ML SYR IV ONE (14:38)
[2016-10-25] MEDS ORDERED: PROPOFOL 10 MG/ML 20 ML VIAL IV ONE (14:38)
[2016-10-25] MEDS ORDERED: IV VANCOMYCIN PER PHARMACY 1 EACH MISC MISCELLANE PRN (15:25)
--- NOTE | 2016-10-25 15:25 | P.PCN ---
Date of Procedure: 10/25/16 Preoperative Diagnosis: Chronic abdominal wound with full-thickness necrosis Postoperative Diagnosis: Same, history of multidrug resistant enterococcus Procedure(s) Performed: Full thickness excision of necrotic abdominal wound 4 x 6 x 2 cm, abdominal wall lavage pulse back 2 liters; application of wound vac small sponge Anesthesia: JOSE Surgeon: Piedad Nichols Estimated Blood Loss (ml): 50 Pathology: other Condition: stable Disposition: floor Operative Findings: Full-thickness necrosis of abdominal wall wound 4 x 6 x 2 cm depth. Necrotic wound completely excised down to fascia. Healthy bleeding tissue is obtained. Aerobic and anaerobic cultures obtained. Small wound VAC sponge cut to size and placed to -125 mmHg pressure. No leaks in the system.
[2016-10-25] MEDS ORDERED: LACTATED RINGERS 1,000 ML IV ONE ×2 (15:31→17:13)
[2016-10-25] MEDS ORDERED: NALOXONE 0.4 MG/ML 1 ML VIAL IV PRN (15:31)
[2016-10-25] MEDS ORDERED: ONDANSETRON 4 MG/2 ML VIAL IVP PRN (15:31)
[2016-10-25] MEDS ORDERED: LORATADINE 10 MG TAB PO PRN (15:34)
[2016-10-25] MEDS: HYDROmorphone 1 MG/ML 1 ML SYRINGE IVP PRN ×3 (15:37→16:46)
[2016-10-25 16:26] LABS: Glucose,Whole Blood 204 mg/dL (75-99)
[2016-10-25] MEDS ORDERED: INSULIN LISPRO (humaLOG) 300 UNIT/3 ML VIAL SQ ONE (16:32)
[2016-10-25] MEDS: INSULIN LISPRO (humaLOG) 300 UNIT/3 ML VIAL SQ SCH ×3 (18:44→21:55)
[2016-10-25] MEDS: ATORVASTATIN 80 MG TAB PO SCH (20:01)
[2016-10-25] MEDS: HYDROmorphone 2 MG/ML 1 ML SYRINGE IVP PRN ×2 (20:01→23:22)
--- NOTE | 2016-10-25 20:57 | P.PN ---
Subjective Principal diagnosis: Chronic abdominal wound The patient is resting comfortably. She reports feeling much better since her procedure. She is tolerating diet. Her pain is well-controlled. The patient is status post full-thickness excision of the chronic abdominal wound and application of wound VAC. Objective - Vital Signs Vital signs: Vital Signs Temp 99.4 F 10/25/16 18:32 Pulse 84 10/25/16 18:32 Resp 18 10/25/16 18:32 BP 145/88 10/25/16 18:32 Pulse Ox 95 10/25/16 18:32 Intake & Output 10/25/16 10/25/16 10/26/16 06:59 18:59 06:59 Intake Total 1150 Output Total 450 Balance 700 Weight 61.235 kg Intake: IV 1150 Output: Urine 400 Estimated Blood Loss 50 - Exam GENERAL: Well developed and in no acute distress. Pleasant. HEENT: No sclera icterus. Extraocular movements grossly intact. Moist buccal mucosa. Head is atraumatic, normocephalic. Hears conversational speech. No nasal drainage. NECK: Supple without lymphadenopathy. No JV distention. CHEST: Non-labored respirations and equal bilateral excursions. CARDIOVASCULAR: Regular rate and rhythm. Palpable 2+ radial pulses. ABDOMEN: Wound Vac dressing clean dry and intact. Serosanguineous drainage along the wound VAC system. No leaks identified. Abdomen is soft nontender nondistended. MUSCULOSKELETAL: No clubbing, cyanosis or edema. NEUROLOGIC: No focal or lateralizing signs. PSYCH: Appropriate affect. Alert and oriented to person, place and time. - Labs CBC & Chem 7: 10/25/16 11:22 Labs: Abnormal Lab Results - Last 24 Hours (Table) 10/25/16 10/25/16 10/25/16 Range/Units 11:19 11:22 16:23 RBC 3.77 L (3.80-5.40) m/uL Hgb 11.3 L (11.4-16.0) gm/dL RDW 16.2 H (11.5-15.5) % POC Glucose (mg/dL) 179 H 204 H (75-99) mg/dL Microbiology - Last 24 Hours (Table) 10/25/16 15:00 Anaerobic Culture - Preliminary Abdomen 10/25/16 15:00 Wound Culture - Preliminary Abdomen Assessment and Plan (1) Glycopeptide resistant enterococcus infection, multi-drug resistance Status: Acute (2) At risk for readmission to hospital Status: Acute (3) Chronic abdominal pain Status: Acute (4) HTN (hypertension) Status: Acute (5) Hyperglycemia Status: Resolved Plan: 1. She has previous wound cultures consistent with enterococcus multidrug resistance except to vancomycin. We'll continue with vancomycin postop. 2. Recommend wound VAC for discharge with dimensions of 4 x 6 x 2 cm abdominal wound and small wound VAC sponge. Will need changes 3 times a week including Friday. 3. Consultation to infectious disease also obtained for antibiotic management inpatient and upon discharge.
[2016-10-25 21:20] LABS: Glucose,Whole Blood 313 mg/dL (75-99)
[2016-10-25 21:36] LABS: Hemoglobin A1C 10.2 % (4.2-6.1)
[2016-10-25] MEDS: INSULIN GLARGINE 100 UNIT/ML 10 ML VIAL SQ SCH (21:55)
[2016-10-25] MEDS: VANCOMYCIN 1,250 MG in SODIUM CHLORIDE 0.9% 250 ML IVPB SCH (23:24)
[2016-10-26] MEDS: HYDROmorphone 2 MG/ML 1 ML SYRINGE IVP PRN ×6 (02:05→18:56)
[2016-10-26] MEDS: LEVOTHYROXINE 100 MCG TAB PO SCH (05:43)
[2016-10-26] MEDS: LACTATED RINGERS 1,000 ML IV SCH (05:45)
[2016-10-26 07:40] LABS: Glucose,Whole Blood 47 mg/dL (75-99)
[2016-10-26 07:40] LABS: Glucose,Whole Blood 49 mg/dL (75-99)
[2016-10-26] MEDS ORDERED: DEXTROSE 50%-WATER 50 ML SYRINGE IVP ONE (07:40)
[2016-10-26 08:02] LABS: Glucose,Whole Blood 194 mg/dL (75-99)
[2016-10-26] MEDS: INSULIN LISPRO (humaLOG) 300 UNIT/3 ML VIAL SQ SCH ×5 (08:24→17:57)
[2016-10-26] MEDS: PANTOPRAZOLE 40 MG TABLET PO SCH (08:49)
[2016-10-26] MEDS: INSULIN GLARGINE 100 UNIT/ML 10 ML VIAL SQ SCH (08:49)
[2016-10-26 09:12] LABS: Basophils % (A) 0 %; CH 29.3; CHCM 32.1; Eosinophils # (A) 0.2 k/uL (0-0.7); Eosinophils % (A) 3 %; HDW 2.98; Hypochromasia Slight; Luc # (Auto) 0.12; Luc % (Auto) 2; Lymphocytes # (A) 2.5 k/uL (1.0-4.8); Lymphocytes % (A) 37 %; MCH 29.5 pg (25.0-35.0); MCHC 32.1 g/dL (31.0-37.0); MCV 91.8 fL (80.0-100.0); Mean Platelet Volume 7.1; Monocytes # (A) 0.3 k/uL (0-1.0); Monocytes % (A) 4 %; Neutrophils # (A) 3.6 k/uL (1.3-7.7); Neutrophils % (A) 54 %; RBC 3.38 m/uL (3.80-5.40); WBC 6.7 k/uL (3.8-10.6); WBC (Perox) 6.56
[2016-10-26 09:26] LABS: ALT 27 U/L (9-52); AST 19 U/L (14-36); Alkaline Phosphatase 86 U/L (38-126); Anion Gap 7 mmol/L; Blood Urea Nitrogen 15 mg/dL (7-17); Calcium 9.3 mg/dL (8.4-10.2); Carbon Dioxide 30 mmol/L (22-30); Chloride 106 mmol/L (98-107); Glucose 141 mg/dL (74-99); Non-African American GFR(MDRD) >60 (>60 ml/min/1.73 sqM); Potassium 4.2 mmol/L (3.5-5.1); Sodium 143 mmol/L (137-145); Total Bilirubin 0.2 mg/dL (0.2-1.3); Total Protein 6.3 g/dL (6.3-8.2)
[2016-10-26] MEDS: VENLAFAXINE HCL ER 75 MG CAP PO SCH (09:57)
[2016-10-26] MEDS: CLOPIDOGREL 75 MG TAB PO SCH (09:57)
[2016-10-26] MEDS: ASPIRIN 81 MG CHEW PO SCH (09:57)
[2016-10-26 12:01] LABS: Glucose,Whole Blood 135 mg/dL (75-99)
[2016-10-26] MEDS: VANCOMYCIN 1,250 MG in SODIUM CHLORIDE 0.9% 250 ML IVPB SCH (12:32)
--- NOTE | 2016-10-26 16:13 | OP ---
DATE OF SERVICE: 10/25/2016 SURGEON: BRIDGET ARRINGTON MD PREOPERATIVE DIAGNOSES: 1. History of chronic abdominal wound at umbilicus secondary to non-healing from poorly controlled diabetes. 2. History of poorly controlled diabetes type 2. 3. High risk for readmission. 4. Hypothyroidism. 5. Gastroesophageal reflux disease. 6. History of multidrug resistant enterococcus. 7. Previous history of myocardial infarction. 8. History of multiple abdominal adhesions. 9. Previous history of exploratory laparotomy for bowel obstruction. 10. History of chronic enterococcus infection complicating wound healing. POSTOPERATIVE DIAGNOSES: 1. History of chronic abdominal wound at umbilicus secondary to non-healing from poorly controlled diabetes. 2. History of poorly controlled diabetes type 2. 3. High risk for readmission. 4. Hypothyroidism. 5. Gastroesophageal reflux disease. 6. History of multidrug resistant enterococcus. 7. Previous history of myocardial infarction. 8. History of multiple abdominal adhesions. 9. Previous history of exploratory laparotomy for bowel obstruction. 10. Chronic abdominal wound 4 x 6 x 2 cm with full thickness necrosis. 11. History of chronic enterococcus infection complicating wound healing. OPERATION: 1. Full thickness excision of necrotic abdominal wound 4 x 6 x 2 cm periumbilical area. 2. Abdominal wall lavage 2 liters normal saline. 3. Application of small wound V.A.C. subcutaneous tissue 4 x 6 x 2 cm. ANESTHESIA: General. ESTIMATED BLOOD LOSS: 50 mL SPECIMENS: 1. Full thickness necrosis abdominal wall wound. 2. Aerobic and anaerobic cultures. CONDITION: Stable. COMPLICATIONS: None. OPERATIVE FINDINGS: 1. Full thickness necrosis along the periumbilical area creating a chronic wound 4 x 6 x 2 cm. The wound dimensions are at least 24 square centimeters. 2. Complete excision was performed down to the fascia. 3. Application of small wound V.A.C. sponge placed to -125 mmHg pressure with no leaks in the system. INDICATIONS: Lala Kenyon is a 56-year-old female who over a month ago had an emergent exploratory laparotomy for small bowel obstruction. An enterectomy was performed and she had a foreign body bezoar requiring evacuation. Since then, however, she has poorly controlled diabetes as well as multiple readmissions. Secondary to now a chronic abdominal wound, now she presents for further surgical intervention. Benefits and risks of bleeding, infection, placement of wound V.A.C. sponge were also described. DESCRIPTION: Patient is brought to the operating room, laid in supine position. After general induction, the abdomen had been prepped and draped in standard sterile fashion. Attention was brought to the midline whereby a timeout protocol was confirmed regarding the patient's name including procedures to be performed. The measurements of the wound was consistent with 4 x 6 x 2 cm depth. Using a #10 blade the necrotic tissue was excised full thickness down to the fascia. The specimen was passed off for pathological assessment. Next, of the bed of the tissue, sharp excisional debridement using the Metzenbaum scissors was also performed to excise any necrotic tissue including subcutaneous tissue. Sharp excisional debridement was taken down to healthy bleeding tissues of the fascia. Again, the size of the defect was at least 4 x 6 x 2 cm. Next, using a water jet pulse lavage of 2 liters, the wound was copiously irrigated. Aerobic and anaerobic cultures were obtained along the base of the wound. A small wound VAC sponge was cut to size and placed along the depth of the tissue. Mastisol was placed along the skin. Tegaderm was also placed along the skin and had been cut to size. A scissor was used to create a defect of at least a quarter size over the actual dome of the wound VAC sponge. A negative suction adapter was placed and set to -125 mmHg pressure. No leaks were identified in the system. The patient was transferred to postanesthesia care unit in stable condition. Intraoperative findings were described to the patient's family. The patient will continue for IV vancomycin for history of multidrug resistant enterococcus. Wound VAC management was also described for discharge management. ANAY JAIMES MD [facility]PITALRemi
[2016-10-26 17:04] LABS: Glucose,Whole Blood 113 mg/dL (75-99)
[2016-10-26] MEDS ORDERED: ALBUTEROL NEBULIZED 2.5 MG/3 ML INHALATION PRN (19:06)
[2016-10-26] MEDS ORDERED: ALBUTEROL NEBULIZED 2.5 MG/3 ML INHALATION SCH (20:00)
--- NOTE | 2016-10-26 22:34 | P.PN ---
Subjective S/P Full thickness excision of necrotic abdominal wound 4 x 6 x 2 cm, abdominal wall lavage pulse back 2 liters; application of wound vac small sponge. Patient doing well. Tolerating diet. No acute events overnight. Objective - Vital Signs Vital signs: Vital Signs Temp 97.3 F L 10/26/16 15:00 Pulse 92 10/26/16 15:00 Resp 19 10/26/16 15:00 BP 153/82 10/26/16 15:00 Pulse Ox 97 10/26/16 15:00 Intake & Output 10/26/16 10/26/16 10/27/16 06:59 18:59 06:59 Weight 61.235 kg Other: # Voids 4 3 # Bowel Movements 1 1 - Exam General: Alert and orineted Abdomen: Wound vac is intact - Labs CBC & Chem 7: 10/26/16 08:04 10/26/16 08:04 Labs: Abnormal Lab Results - Last 24 Hours (Table) 10/25/16 10/25/16 10/26/16 Range/Units 11:22 21:17 07:35 RBC (3.80-5.40) m/uL Hgb (11.4-16.0) gm/dL Hct (34.0-46.0) % RDW (11.5-15.5) % Glucose (74-99) mg/dL POC Glucose (mg/dL) 313 H 49 L (75-99) mg/dL Hemoglobin A1c 10.2 H (4.2-6.1) % 10/26/16 10/26/16 10/26/16 Range/Units 07:37 08:00 08:04 RBC 3.38 L (3.80-5.40) m/uL Hgb 10.0 L (11.4-16.0) gm/dL Hct 31.0 L (34.0-46.0) % RDW 16.0 H (11.5-15.5) % Glucose (74-99) mg/dL POC Glucose (mg/dL) 47 L 194 H (75-99) mg/dL Hemoglobin A1c (4.2-6.1) % 10/26/16 10/26/16 10/26/16 Range/Units 08:04 11:58 17:03 RBC (3.80-5.40) m/uL Hgb (11.4-16.0) gm/dL Hct (34.0-46.0) % RDW (11.5-15.5) % Glucose 141 H (74-99) mg/dL POC Glucose (mg/dL) 135 H 113 H (75-99) mg/dL Hemoglobin A1c (4.2-6.1) % Microbiology - Last 24 Hours (Table) 10/25/16 15:00 Gram Stain - Preliminary Abdomen Wound Culture - Preliminary 10/25/16 15:00 Anaerobic Culture - Preliminary Abdomen Assessment and Plan (1) HTN (hypertension) Status: Acute (2) Poorly controlled type 2 diabetes mellitus Status: Acute Plan: 1. Wound vac change on friday 2. Consult case management for discharge planning home with wound vac
[2016-10-26] MEDS ORDERED: HYDROmorphone 2 MG/ML 1 ML SYRINGE ONE (23:00)
[2016-10-26] MEDS ORDERED: ATORVASTATIN 80 MG TAB ONE (23:00)
[2016-10-26 23:05] LABS: Glucose,Whole Blood 63 mg/dL (75-99)
[2016-10-26 23:06] LABS: Glucose,Whole Blood 77 mg/dL (75-99)
[2016-10-27] MEDS: SYMBICORT 160-4.5 MCG INHALER INHALATION SCH ×3 (00:23→20:23)
[2016-10-27] MEDS: HYDROmorphone 2 MG/ML 1 ML SYRINGE IVP PRN ×2 (01:50→11:18)
[2016-10-27] MEDS: LEVOTHYROXINE 100 MCG TAB PO SCH (05:54)
[2016-10-27] MEDS: LACTATED RINGERS 1,000 ML IV SCH (05:59)
[2016-10-27 06:55] LABS: Glucose,Whole Blood 247 mg/dL (75-99)
[2016-10-27] MEDS: ATORVASTATIN 80 MG TAB PO SCH ×2 (08:00→21:33)
[2016-10-27] MEDS: INSULIN GLARGINE 100 UNIT/ML 10 ML VIAL SQ SCH ×3 (08:00→21:33)
[2016-10-27] MEDS: VANCOMYCIN 1,250 MG in SODIUM CHLORIDE 0.9% 250 ML IVPB SCH (08:01)
[2016-10-27] MEDS: INSULIN LISPRO (humaLOG) 300 UNIT/3 ML VIAL SQ SCH ×7 (08:01→21:33)
[2016-10-27] MEDS: VENLAFAXINE HCL ER 75 MG CAP PO SCH (08:50)
[2016-10-27] MEDS: ASPIRIN 81 MG CHEW PO SCH (08:51)
[2016-10-27] MEDS: CLOPIDOGREL 75 MG TAB PO SCH (08:51)
[2016-10-27] MEDS: PANTOPRAZOLE 40 MG TABLET PO SCH (08:51)
--- NOTE | 2016-10-27 08:52 | CONS ---
DATE OF CONSULTATION: 10/26/2016 REASON FOR CONSULTATION: Infected abdominal wound with enterococcus infection. HISTORY OF PRESENT ILLNESS: The patient is a 56-year-old female with a chronic nonhealing wound tract over the abdominal area with a previous infection with penicillin resistant Enterococcus. It was sensitive to vancomycin. The patient has been elected to be admitted to the hospital on 10/25/2016 for debridement of the same wound and antibiotic therapy. Patient was taken to the OR yesterday afternoon and she did have full-thickness excision of the necrotic abdominal wound 4 x 6 x 2 cm, abdominal wound lavage, application of the wound VAC. With the previous culture positive for enterococcus, the patient was started on vancomycin and ID was consulted for recommendations regarding antibiotic therapy. Patient remains to be afebrile this morning. The patient denies significant chest pain or shortness of breath. No significant abdominal pain. No nausea, no vomiting and no diarrhea. REVIEW OF SYSTEMS: CONSTITUTIONAL: Positive for weakness. No high-grade fever. EYES: No complaint. ENT: No complaint. RESPIRATORY: No complaint. CARDIOVASCULAR: No complaint. GENITOURINARY: No complaint. GASTROINTESTINAL: As per HPI. MUSCULOSKELETAL: No complaint. INTEGUMENTARY: No complaint. PSYCHOLOGICAL: No complaint. PAST MEDICAL HISTORY: Diabetes mellitus, hypertension, hyperlipidemia, coronary artery disease, CVA, TIA, COPD, hypothyroidism, abdominal wound infection and VRE infection. PAST SURGICAL HISTORY: , heart catheterization, bowel resection, appendectomy, exploratory laparotomy, lysis of adhesions and chronic wound to the abdominal area. SOCIAL HISTORY: The patient did have history of smoking, smoked about 3 packs per day; quit back in 09/16/2016. Did have some marijuana use. FAMILY HISTORY: Father history of ID, from an ID at the age of 48. Mother with history of breast cancer. ALLERGIES: LATEX, SULFA. Medications include the patient is currently on aspirin, Lipitor, Plavix, vitamin D2, Dilaudid, Lantus, Humalog, lactated Ringers, Synthroid, Claritin, Narcan, Zofran, Protonix, and vancomycin 1250 q.12. On examination, blood pressure 140/82 with a pulse of 98, temperature 98. She is 94% on room air. General description is a middle-age female lying in bed in no distress. No tachypnea or accessory muscle of respiration use. HEENT examination shows pallor. There is no scleral icterus. Oral mucous membranes dry. NECK: Trachea central. There is no thyromegaly. LUNGS: Unlabored breathing. Clear to auscultation anteriorly. HEART: S1, S2. Regular rate and rhythm. ABDOMEN: Soft with the wound VAC applied. No tenderness. No swelling or redness. EXTREMITIES: No edema feet Skin examination no rashes no mass palpable. NEUROLOGICAL: The patient is awake, alert, oriented x3. Mood and affect normal. LABS: Hemoglobin is 10, white count 6.7, BUN of 15, creatinine 0.60. Cultures are obtained and currently pending. Previous culture has been positive for enterococcus that was sensitive to vancomycin. DIAGNOSTIC IMPRESSION: Patient with chronic nonhealing abdominal wound with secondary infection. Culture was positive for enterococcus status post excision and debridement of the same with no evidence of any deep abscess that needed to be drained out. The patient did not have any fever, no elevated white count. PLAN: 1. Vancomycin, pharmacy to dose to continue while awaiting for the culture to finalize. 2. Depending upon the culture results and clinical response over the weekend will adjust antibiotics if needed. 3. As the patient is known to Dr. Mills, patient will be signed off to him on Friday. Thank you for this consultation. Will follow this patient along with you. JAN
[2016-10-27] MEDS ORDERED: VANCOMYCIN TROUGH DUE 1 EACH MISC MISCELLANE ONE (11:00)
--- NOTE | 2016-10-27 11:26 | P.PN ---
Subjective S/P Full thickness excision of necrotic abdominal wound 4 x 6 x 2 cm, abdominal wall lavage pulse back 2 liters; application of wound vac small sponge. Patient doing well. Tolerating diet. No acute events overnight. Objective - Vital Signs Vital signs: Vital Signs Temp 97.9 F 10/27/16 07:00 Pulse 85 10/27/16 07:00 Resp 19 10/27/16 07:00 BP 157/89 10/27/16 07:00 Pulse Ox 97 10/27/16 07:00 Intake & Output 10/26/16 10/27/16 10/27/16 18:59 06:59 18:59 Weight 61.235 kg Other: # Voids 3 1 2 # Bowel Movements 1 1 - Exam General: Alert and orineted Abdomen: Wound vac is intact - Labs CBC & Chem 7: 10/26/16 08:04 10/26/16 08:04 Labs: Abnormal Lab Results - Last 24 Hours (Table) 10/26/16 10/26/16 10/26/16 Range/Units 11:58 17:03 21:23 POC Glucose (mg/dL) 135 H 113 H 63 L (75-99) mg/dL 10/27/16 Range/Units 06:43 POC Glucose (mg/dL) 247 H (75-99) mg/dL Microbiology - Last 24 Hours (Table) 10/25/16 20:07 Blood Culture - Preliminary Blood No Growth after 24 hours 10/25/16 19:36 Blood Culture - Preliminary Blood No Growth after 24 hours Assessment and Plan (1) HTN (hypertension) Status: Acute (2) Poorly controlled type 2 diabetes mellitus Status: Acute Plan: 1. Wound vac change on friday 2. Consult case management for discharge planning home with wound vac 3. On IV vancomycin- Final cultures pending 4.ID following
[2016-10-27 12:32] LABS: Glucose,Whole Blood 149 mg/dL (75-99)
[2016-10-27] MEDS: HYDROcodone/APAP 5-325MG 1 EACH TAB PO PRN ×2 (14:09→20:06)
--- NOTE | 2016-10-27 14:12 | CONS ---
DATE OF CONSULTATION: REASON FOR CONSULTATION: Advice regarding COPD and multiple other medical issues requested by Dr. Nichols. HISTORY OF PRESENT ILLNESS: This 56-year-old woman with a past medical history of multiple medical problems including COPD, cerebrovascular accident, transient ischemic attack, diabetes mellitus, gastroesophageal reflux disease, hypertension, hyperlipidemia, myocardial infarction, history of bowel resection, history of section, being followed by Dr. Schroeder in the outpatient setting was admitted by Dr. Nichols for chronic abdominal wound and history of multiresistant enterococcus. The patient underwent full thickness excision of the necrotic abdominal wound as well as abdominal wall lavage and application of small wound VAC by Dr. Nichols. There is no history of fever, rigors. No history of headaches, loss of consciousness, seizures at this time. PAST MEDICAL HISTORY: History of COPD, history of diabetes mellitus, history of GERD, history of hypertension, hyperlipidemia, history of myocardial infarction, history of small bowel obstruction with surgery, history of possible septic emboli with a calcification in the bilateral legs, COPD, appendectomy and bowel resection. Medications prior to admission include home medications are: 1. Prilosec 40 mg in the morning. 3. Apidra 10 mg subcu b.i.d. 4. Lantus. 5. Zoloft 50 mg q.h.s. 6. Lantus 20 units subcu breakfast. 7. Drisdol 50,000 p.o. Friday. 8. Plavix 75 mg daily. 9. Symbicort 160/4.5, 2 puffs b.i.d. 10. Lipitor 80 mg q.h.s.. 11. Aspirin 81 mg p.o. daily. 12. Ventolin 1 to 2 puffs q.6 p.r.n. 13. Effexor ER 225 mg p.o. daily. 14. Synthroid 200 mg q.a.m. 15. Murdock 5 q.6 p.r.n. ALLERGIES: LATEX, SULFA, VENOM, MORPHINE, FAMILY HISTORY: History of myocardial infarction. SOCIAL HISTORY: Previous history of smoking. Present THC. REVIEW OF SYSTEMS: ENT: No diminished hearing or diminished vision CARDIOVASCULAR: No angina or palpitations. RESPIRATORY: As mentioned earlier. GI: As mentioned earlier. : No dysuria. NERVOUS SYSTEM: No numbness or weakness. ALLERGY/IMMUNOLOGY: As mentioned earlier. MUSCULOSKELETAL: As mentioned earlier. HEMATOLOGY: As mentioned earlier. ENDOCRINE: As mentioned earlier. CONSTITUTIONAL: As mentioned earlier. DERMATOLOGY: Negative. RHEUMATOLOGY: Negative. PSYCHIATRY: As mentioned earlier. PHYSICAL EXAMINATION: Patient is alert and oriented x3. Pulse is 92, blood pressure 150/82, respirations 19, temperature 97.3, pulse ox 97% on room air. HEENT: Conjunctivae normal. Oral mucosa moist. NECK: No jugular venous distention. No carotid bruit. No lymph node enlargement. CARDIOVASCULAR: S1 and S2, muffled. No S3, no S4. RESPIRATORY: Breath sounds diminished at the bases. Bilateral scattered rhonchi and expiratory wheezing and crackles. ABDOMEN: Soft. Mild diffuse discomfort. Status post surgery, wound VAC applied in the middle. LEGS: No edema, no swelling. NERVOUS SYSTEM: Higher function as mentioned. Moves all four limbs. No focal motor deficits. LYMPHATIC: No lymphadenopathy in the neck, axillae or groin. SKIN: No ulcer, rash or bleeding. LABS: At this time shows WBC 6.3, hemoglobin is 10, glucose 194. ASSESSMENT: 1. Chronic abdominal wall wound status post excision, abdominal wall lavage and application of the wound VAC. 2. Diabetes mellitus type 2. 3. History of cavitary lesion and bilateral possible septic emboli. 4. History of chronic obstructive pulmonary disease. 5. History of nicotine dependence. 6. Tetrahydrocannabinol. 7. Hypothyroidism. 8. Hyperlipidemia. 9. Hypertension. 10. Left kidney cancer, partial nephrectomy. 11. Chronic low back pain, degenerative joint disease. 12. Anxiety and depression, not otherwise specified. 13. Increased random blood sugar. 14. Anemia, normocytic anemia of chronic disease. 15. History of multidrug resistant enterococcus. 16. History of myocardial infarction. 17. History of multiple abdominal adhesions. 18. History of recent exploratory laparotomy and bowel surgery. 19. History of ESBL Escherichia coli. 20. History of restless leg syndrome. 21. Peripheral neuropathy secondary to diabetes mellitus type 2. 22. History of gastroesophageal reflux disease. 23. History of incarcerated food bezoar. 24. History of thyroidectomy. 25. FULL CODE. RECOMMENDATIONS AND DISCUSSION: In this 56-year-old woman who presented with multiple complex medical issues, will monitor the patient closely. Continue with the current medications, continue with symptomatic treatment. I recommend to resume the home dose of insulin including Lantus twice daily and coverage. Otherwise, DVT prophylaxis. Will resume the rest of the home medications. Follow the patient closely and antibiotics. Infectious Disease evaluation has been sought. Further recommendations to follow. MTDD
[2016-10-27 17:28] LABS: Glucose,Whole Blood 172 mg/dL (75-99)
[2016-10-27 22:14] LABS: Glucose,Whole Blood 118 mg/dL (75-99)
[2016-10-28] MEDS: HYDROcodone/APAP 5-325MG 1 EACH TAB PO PRN ×4 (06:14→21:55)
[2016-10-28] MEDS: LACTATED RINGERS 1,000 ML IV SCH (06:15)
[2016-10-28] MEDS: LEVOTHYROXINE 100 MCG TAB PO SCH (06:33)
[2016-10-28 07:39] LABS: Glucose,Whole Blood 175 mg/dL (75-99)
[2016-10-28] MEDS: CLOPIDOGREL 75 MG TAB PO SCH (08:25)
[2016-10-28] MEDS: PANTOPRAZOLE 40 MG TABLET PO SCH (08:26)
[2016-10-28] MEDS: ASPIRIN 81 MG CHEW PO SCH (08:26)
[2016-10-28] MEDS: VENLAFAXINE HCL ER 75 MG CAP PO SCH (08:26)
[2016-10-28] MEDS: INSULIN GLARGINE 100 UNIT/ML 10 ML VIAL SQ SCH ×2 (08:26→21:50)
[2016-10-28] MEDS: SYMBICORT 160-4.5 MCG INHALER INHALATION SCH ×2 (08:30→19:48)
[2016-10-28] MEDS: INSULIN LISPRO (humaLOG) 300 UNIT/3 ML VIAL SQ SCH ×6 (08:31→21:49)
[2016-10-28] MEDS ORDERED: LIDOCAINE 2% INJ 20 MG/ML (20 ML MDV) ONE (09:44)
[2016-10-28] MEDS ORDERED: LIDOCAINE 2% INJ 20 MG/ML SQ ONE (09:49)
[2016-10-28 10:08] LABS: Basophils % (A) 0 %; CH 29.2; CHCM 31.6; Eosinophils # (A) 0.4 k/uL (0-0.7); Eosinophils % (A) 7 %; HCT 36.5 % (34.0-46.0); HDW 2.85; HGB 11.4 gm/dL (11.4-16.0); Hypochromasia Slight; Luc # (Auto) 0.08; Luc % (Auto) 1; Lymphocytes # (A) 1.8 k/uL (1.0-4.8); Lymphocytes % (A) 32 %; MCH 29.1 pg (25.0-35.0); MCHC 31.3 g/dL (31.0-37.0); MCV 92.9 fL (80.0-100.0); Monocytes # (A) 0.2 k/uL (0-1.0); Monocytes % (A) 3 %; Neutrophils # (A) 3.2 k/uL (1.3-7.7); Neutrophils % (A) 57 %; RBC 3.93 m/uL (3.80-5.40); RDW 15.9 % (11.5-15.5); WBC 5.6 k/uL (3.8-10.6); WBC (Perox) 5.81
[2016-10-28 10:42] LABS: ALT 31 U/L (9-52); AST 28 U/L (14-36); Alkaline Phosphatase 100 U/L (38-126); Anion Gap 10 mmol/L; Blood Urea Nitrogen 19 mg/dL (7-17); Calcium 9.5 mg/dL (8.4-10.2); Carbon Dioxide 30 mmol/L (22-30); Chloride 103 mmol/L (98-107); Glucose 194 mg/dL (74-99); Non-African American GFR(MDRD) >60 (>60 ml/min/1.73 sqM); Potassium 4.5 mmol/L (3.5-5.1); Sodium 143 mmol/L (137-145); Total Bilirubin 0.4 mg/dL (0.2-1.3); Total Protein 7.1 g/dL (6.3-8.2)
[2016-10-28] MEDS ORDERED: HYDROmorphone 1 MG/ML 1 ML SYRINGE IVP STA (10:42)
--- NOTE | 2016-10-28 10:44 | PN ---
DATE OF SERVICE: 10/27/2016 Reason for followup is abdominal wound infection. INTERVAL HISTORY: The patient is afebrile. She is currently breathing comfortably. Denies any significant pain in the abdominal area. Denies any chest pain, shortness of breath or cough. On examination, blood pressure is 151/80 with a pulse of 95, temperature 97.3. She is 98% on room air. General description is a middle-age female, lying in bed in no distress. RESPIRATORY SYSTEM: Unlabored breathing. Clear to auscultation anteriorly. HEART: S1, S2, regular rate and rhythm. ABDOMEN: Soft. Wound is currently packed with a wound VAC. LABS: Hemoglobin is 10, white count of 6.7. Wound culture with MSSA enterococcus. DIAGNOSTIC IMPRESSION AND PLAN: Patient with an infected abdominal wound, status post resection with wound VAC application, culture positive for methicillin-sensitive Staphylococcus aureus and enterococcus which is resistant to PCN. She is currently on vancomycin. Patient will get a PICC line and continue on IV vanco for at least 2 weeks with close outpatient followup. Continue supportive care. JAN
--- NOTE | 2016-10-28 11:44 | IR ---
PICC LINE PLACEMENT: HISTORY: Infection requiring long-term antibiotic therapy PROCEDURE: Ultrasound and fluoroscopic guidance of PICC line placement. COMPLICATIONS: None ANESTHESIA: 1. 1% Lidocaine locally. FINDINGS/TECHNIQUE: The procedure was explained to the patient. The risks, complications, benefits and alternatives were discussed and any questions were answered. Informed consent was obtained. The patient was placed supine on the fluoroscopic table and prepped and draped in the usual sterile fash ion. Utilizing a 21 gauge needle and sonographic and fluoroscopic guidance, access in the left basi lic vein was achieved and there is placement of a 0.018 guidewire. The vein is patent. A 4-F sheath was placed over the guidewire. The guidewire and dilator were removed and a 4-F. PICC line was plac ed through the sheath with the tip at the level of the SVC. The sheath was removed, the catheter was flushed and sutured into position. The patient was stable throughout the procedure and remained sta ble upon discharge from the Department of Radiology. The vein puncture was patent under ultrasound. A guerrero scale image was obtained to document patency of the vein punctured. All elements of the maximal barrier technique were utilized. FLUOROSCOPY TIME: 0.5 minute IMPRESSION: Successful PICC line placement under ultrasound and fluoroscopic guidance.
[2016-10-28 11:49] LABS: Glucose,Whole Blood 115 mg/dL (75-99)
[2016-10-28] MEDS ORDERED: VANCOMYCIN 1,000 MG in SODIUM CHLORIDE 0.9% 250 ML IVPB SCH (12:15)
--- NOTE | 2016-10-28 13:05 | PN ---
DATE OF SERVICE: 10/27/2016 This is a 56-year-old woman who was admitted with chronic abdominal wall wound infection. Wound had excision and abdominal lavage and wound VAC. At this time no chest pain or palpitation. No fever. The wound cultures are growing staph aureus and enterococcus gallinarium. The staph is MSSA, the enterococcus, multiple drug test . Patient is also being followed by Infectious Disease. Currently, the patient is on vancomycin. No chest pain, no palpitation, no fever. On exam, alert and oriented x3. The pulse is 95, blood pressure 151/80, respirations 18, temperature 97.3, pulse ox 98% on room air. HEENT: Conjunctivae normal. NECK: No jugular venous distension. CARDIOVASCULAR: S1, S2, muffled. RESPIRATORY: Breath sounds diminished at the bases. A few scattered rhonchi, no crackles. ABDOMEN: Soft, status post surgery. LEGS: No edema, no swelling. NERVOUS SYSTEM: No focal deficits. LABS: WBC 6.7, hemoglobin is 10. ASSESSMENT: 1. Chronic abdominal wall wound infection, status post excision, abdominal wall lavage and application of the wound VAC. 2. Diabetes mellitus type 2. 3. History of cavitary lesion and bilateral possible septic emboli. 4. History of chronic obstructive pulmonary disease. 5. History of nicotine dependence. 6. THC. 7. Hypothyroidism. 8. Hyperlipidemia. 9. Essential hypertension. 10. Left kidney cancer, partial nephrectomy 11. Chronic low back pain, degenerative joint disease. 12. Anxiety, depression, not otherwise specified. 13. Increased random blood sugar. 14. Anemia, normocytic anemia of chronic disease. 15. History of multidrug resistant enterococcus. 16. History of myocardial infarction. 17. History of multiple abdominal adhesions. 18. History of recent exploratory laparotomy and bowel surgery. 19. History of ESPL Escherichia coli. 20. History of restless leg syndrome. 21. History of neuropathy secondary to diabetes mellitus type 2. 22. History of gastroesophageal reflux disease. 23. History of incarcerated food bezoar. 24. History of thyroidectomy. 25. FULL CODE. RECOMMENDATION: In this 56-year-old woman who presented with multiple complex medical issues, will monitor the patient closely. Continue with the current antibiotics and symptomatic treatment with antibiotics. Otherwise guarded prognosis because of multiple complex medical issues and further recommendations to follow. MTDD
--- NOTE | 2016-10-28 15:31 | P.PN ---
Subjective Date of service 10/28/2016. Progress note being dictated for Dr. Hill. Interval history: This is a 56-year-old female admitted with chronic abdominal wound infection status post I&D with wound VAC applied. T-max 99. Wound cultures positive for MSSA. PICC line placed this morning for outpatient IV antibiotic therapy. Denies abdominal pain. Good diet intake with no nausea or vomiting. No chest pain, palpitations or shortness of breath. Objective - Vital Signs Vital signs: Vital Signs Temp 99.0 F 10/28/16 15:00 Pulse 100 10/28/16 15:00 Resp 18 10/28/16 15:00 BP 143/83 10/28/16 15:00 Pulse Ox 97 10/28/16 15:00 Intake & Output 10/27/16 10/28/16 10/28/16 18:59 06:59 18:59 Intake Total 300 Balance 300 Intake: Oral 300 Other: # Voids 3 1 4 # Bowel Movements 1 0 - Exam PHYSICAL EXAM: VITAL SIGNS: As above GENERAL: [Sitting up in a chair, no acute distress] HEENT: [Pupils equal conjunctiva normal. No conjunctival pallor] NECK: [Supple, no JVD] RESPIRATORY EFFORT:[ Normal] LUNGS: [Essentially clear, bilateral bases diminished] CARDIOVASCULAR[ regular S1 and S2, no murmurs rubs or gallops, no edema] GI: [Abdomen soft, wound VAC present/dressing clean dry and intact, positive bowel sounds.] PSYCH: [Alert and oriented -3, mood and affect normal.] NEURO: [No focal deficits, moves all 4 extremities, strength and sensation grossly intact] Microbiology 10/25/16 20:07 Blood Blood Culture - Preliminary No Growth after 48 hours 10/25/16 19:36 Blood Blood Culture - Preliminary No Growth after 48 hours 10/25/16 15:00 Abdomen Gram Stain - Final 10/25/16 15:00 Abdomen Wound Culture - Final Staphylococcus aureus Enterococcus gallinarum 10/25/16 15:00 Abdomen Anaerobic Culture - Preliminary - Labs CBC & Chem 7: 10/28/16 09:23 10/28/16 09:23 Labs: Abnormal Lab Results - Last 24 Hours (Table) 10/27/16 10/27/16 10/28/16 Range/Units 17:27 21:33 07:36 RDW (11.5-15.5) % BUN (7-17) mg/dL Glucose (74-99) mg/dL POC Glucose (mg/dL) 172 H 118 H 175 H (75-99) mg/dL 10/28/16 10/28/16 10/28/16 Range/Units 09:23 09:23 11:48 RDW 15.9 H (11.5-15.5) % BUN 19 H (7-17) mg/dL Glucose 194 H (74-99) mg/dL POC Glucose (mg/dL) 115 H (75-99) mg/dL Microbiology - Last 24 Hours (Table) 10/25/16 20:07 Blood Culture - Preliminary Blood No Growth after 48 hours 10/25/16 19:36 Blood Culture - Preliminary Blood No Growth after 48 hours 10/25/16 15:00 Gram Stain - Final Abdomen Wound Culture - Final Staphylococcus aureus Enterococcus gallinarum 10/25/16 15:00 Anaerobic Culture - Preliminary Abdomen Assessment and Plan Plan: 1. [ Chronic abdominal wall wound infection, status post I&D with lavage and application of wound VAC]. Cultures positive for MSSA 2. [ Diabetes mellitus type 2]. 3. [ The cavitary lesion lesion, bilateral, possible septic emboli]. 4. [ COPD, without acute exacerbation]. 5. [ Nicotine dependence, history of]. 6. [ THC]. 7. [ Hypothyroidism]. 8. Hyperlipidemia 9. Essential hypertension 10. Left kidney cancer, partial nephrectomy 11. Chronic low back pain, degenerative joint disease 12. Anxiety, depression, not otherwise specified 13. Anemia, normocytic, of chronic disease 14. History of multiple drug resistant enterococcus, history of ESBL E. coli 15. CAD, history of [place] 16. History of multiple abdominal adhesions 17. History of recent exploratory laparotomy and bowel surgery 18. Restless leg syndrome 19. 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 Gastroesophageal reflux disease 21. Incarcerated food bezoar,hx of Plan: Continue on current medication regime ,monitoring and symptomatic treatment. PICC line has been placed. Antibiotics as per ID. Prognosis guarded secondary to multiple complex medical issues. Discharge planning in progress for [facility] rehab pending preauthorization. Further recommendations to follow. The impression and plan of care has been dictated as directed. : I performed a H&P examination of this patient and discussed the same with the dictator. I agree with the dictator's note. Any additional findings/opinions/ etc. will be noted.
[2016-10-28 16:54] LABS: Glucose,Whole Blood 203 mg/dL (75-99)
--- NOTE | 2016-10-28 18:57 | PN ---
DATE OF SERVICE: 10/28/2016 Reason for follow-up: Abdominal wound infection. INTERVAL HISTORY: The patient is afebrile. He is currently breathing comfortably. Abdominal pain is currently controlled except at time of dressing changes. Patient denies any significant chest pain or shortness of breath. No cough. She does have a PICC line. On examination, blood pressure 140/95 with a pulse of 83, temperature 96.7. She is 98% on room air. General description is a middle-age female lying in bed in no distress. RESPIRATORY SYSTEM: Unlabored breathing. Clear to auscultation anteriorly. HEART: S1, S2. Regular rate and rhythm. ABDOMEN: Soft. No tenderness. LABS: Hemoglobin 11.4, white count 5.6, BUN of 19, creatinine 0.65. Wound culture with MSSA enterococcus. DIAGNOSTIC IMPRESSION AND PLAN: Patient with abdominal wound infection status post debridement. Overall wound is clean. In view of the sensitivities of enterococcus, the patient will be maintained on vancomycin to cover for both pathogens, pharmacy to dose target trough of 15 for another 2 weeks, local wound to continue with the wound VAC with outpatient follow-up. [facility]
[2016-10-28] MEDS: VANCOMYCIN 1,000 MG in SODIUM CHLORIDE 0.9% 250 ML IVPB SCH (20:25)
[2016-10-28 21:17] LABS: Glucose,Whole Blood 176 mg/dL (75-99)
[2016-10-28] MEDS: ATORVASTATIN 80 MG TAB PO SCH (21:50)
[2016-10-29] MEDS: LACTATED RINGERS 1,000 ML IV SCH (06:22)
[2016-10-29] MEDS: SYMBICORT 160-4.5 MCG INHALER INHALATION SCH (07:45)
[2016-10-29 08:10] LABS: Glucose,Whole Blood 114 mg/dL (75-99)
[2016-10-29 08:10] LABS: Glucose,Whole Blood 59 mg/dL (75-99)
--- NOTE | 2016-10-29 08:28 | PN ---
This 56-year-old woman who was admitted with necrotic abdominal wall wound and other multiple medical issues is being closely monitored. ECF rehab is planned. Seen and evaluated the patient along with nurse practitioner. Please refer to the nurse practitioner notes and impression documented as a scribe for further information. Prognosis guarded. Further recommendations to follow.
[2016-10-29] MEDS: INSULIN LISPRO (humaLOG) 300 UNIT/3 ML VIAL SQ SCH ×3 (08:54→13:26)
[2016-10-29] MEDS: LEVOTHYROXINE 100 MCG TAB PO SCH (08:58)
[2016-10-29] MEDS: VANCOMYCIN 1,000 MG in SODIUM CHLORIDE 0.9% 250 ML IVPB SCH (08:58)
[2016-10-29] MEDS: PANTOPRAZOLE 40 MG TABLET PO SCH (08:58)
[2016-10-29] MEDS: VENLAFAXINE HCL ER 75 MG CAP PO SCH (08:59)
[2016-10-29] MEDS: CLOPIDOGREL 75 MG TAB PO SCH (08:59)
[2016-10-29] MEDS: ASPIRIN 81 MG CHEW PO SCH (08:59)
[2016-10-29] MEDS: INSULIN GLARGINE 100 UNIT/ML 10 ML VIAL SQ SCH (09:05)
[2016-10-29] MEDS: HYDROcodone/APAP 5-325MG 1 EACH TAB PO PRN ×2 (09:05→16:06)
--- NOTE | 2016-10-29 11:53 | CDI ---
In responding to this query, please exercise your independent professional judgment. The [facility] Coding Staff and Clinical Documentation Specialists appreciate your assistance in clarifying documentation, maintaining compliance with coding guidelines, accurately documenting patients condition and capturing severity of illness. The fact that a question is asked does not imply that any particular answer is desired or expected. Communication forms are a method of clarifying documentation and are not made part of the Legal Health Record. Thank you in advance for your clarification. Last Revision, April 2015 Teresita Rasmussen [address] [place] [address] Documentation Clarification Form Date: 10/29/2016 11:02:00 AM From: Karina Glenna Admit Date: 10/25/2016 3:28:00 PM Patient Name: Lala Kenyon Visit Number: [id number] Discharge Date: Dr. Piedad Nichols Chronic abdominal woumd is documented in the H&P and progress notes Patient history/risk factors: Diabetes mellitus type 2, uncontrolled, CAD, Hypertension, CVA, COPD, Abdominal wound infection and VRE INFECTION Clinical Indicators: Present with history of multi-drug resistant enterococcus. She has a chronic abdominal wound. She is post-op Open Exploratory laparotomy for bowel obstruction, small bowel resection, lysis of adhesion, on 09/20/16 Lab findings: DWBC 6.1, HGB 11.3, HCT 34.4, Hemoglobin A1c 10.2, Vital Signs: 118/76 90 16 98.1 Other Clinical Indicators: ID: chronic nonhealing wound tract over the abdominal area with a previous infection with penicillin resistant Enterococcus. admitted for debridement of the same wound, and antibiotic therapy. Treatment: IV Vancomycin Excisional debridement with wound VAC management Pain management In your professional opinion, can you please further clarify the chronic abdominal wound? An unexpected post-procedural or post-surgical condition related to: (specify, e.g. complication of care, noncompliance, Other specify) Wound, infection postoperative Wound Surgical, nonhealing Due to: Disruption, infection, Other/unspecified Other, please specify Unable to determine Please document in your progress notes and discharge summary in order to capture severity of illness and risk of mortality. Include clinical findings that support your diagnosis. FYI: Press F11 to launch patient chart. Place X here if this finding has no clinical significance, is not applicable or if you are not able to provide any additional documentation. Wound Surgical, nonhealing Due to: Disruption, infection, Other/unspecified Patient has chronic infections in the past from the same organism, as a result, non-healing from poorly controlled diabetes and chronic infection present prior to surgical intervention....NOT A COMPLICATION OF CARE MTDD
[2016-10-29 12:23] LABS: Glucose,Whole Blood 319 mg/dL (75-99)
--- NOTE | 2016-10-29 13:13 | PN ---
DATE OF SERVICE: 10/29/2016 Reason for followup is infected abdominal wound. INTERVAL HISTORY: The patient is afebrile. He is currently feeling better, breathing comfortably. Still complaining of some pain around the abdominal wound area, but no worsening. Denies any chest pain, shortness of breath or cough. No diarrhea. On examination, blood pressure is 127/71 with a pulse of 86, temperature 98.5. She is 97% on room air. General description is a middle-age female up in the chair in no distress. RESPIRATORY SYSTEM: Unlabored breathing. Clear to auscultation anteriorly. HEART: S1, S2, regular rate and rhythm. ABDOMEN: Soft, no tenderness. LABS: White count of 5.6. DIAGNOSTIC IMPRESSION AND PLAN: Patient with infected abdominal wound with methicillin-susceptible Staphylococcus aureus and enterococcus was resistant to penicillin. Hence, the patient is currently on vancomycin, pharmacy to dose, target of 15 for another 2 weeks along with local wound care with wound VAC to be changed Friday, Friday, Friday with continuous pressure of 125 mmHg and black foam. Plan of care discussed with the liaison sudeep Ratliff and the RN.
[2016-10-29] MEDS: ERGOCALCIFEROL 50,000 UNIT CAP PO SCH ×2 (13:28→14:13)
--- NOTE | 2016-10-29 13:48 | P.DS ---
<SarkisMichelleShaina M - Last Filed: 10/29/16 12:57> Providers Date of admission: 10/25/16 15:28 Expected date of discharge: 10/29/16 Attending physician: Piedad Nichols Consults: 10/25/16 15:30 Consult Physician Routine Consulting Provider: Angelita Santos Consult Reason/Comments: Multidrug Resistant enterococcus Do you want consulting provider notified?: Yes 10/25/16 15:33 Consult Physician Routine Consulting Provider: Danielle Hill Consult Reason/Comments: Medical management Do you want consulting provider notified?: Yes Primary care physician: Stated None Hospital Course: A 56-year-old female well known to the attending service presented for debridement of a abdominal wound. Patient has a history of multi-drug- resistant enterococcus. The recommendations were that the patient undergo excisional wound debridement with application of a wound VAC. Patient has an abdominal wound moderate fibrinous exudate midline wound 5 x 6 cm extending to the subcutaneous tissue and fascia. Patient was just discharged on October 02 patient on September 25 was treated for small bowel resection status post exploratory laparotomy open with lysis of adhesions and evacuation of 6 feet of incarcerated food repair of an incarcerated incisional hernia with abdominal washout that admission the patient was discharged after stabilizing the patient to home 10/25/2016 patient underwent full-thickness excision of necrotic abdominal wound 4 x 6 x 2 abdominal wall a rash with application of a wound VAC operative findings showed full-thickness necrosis of the abdominal wound 4 x 6 x 2 cm depth. Necrotic wound completely excised down to fascia. Healthy tissue obtained. Cultures were also obtained. [place] disease participated in the plan of care. Blood culture showed no growth but the abdominal wound cultures Positive for MSSA. Patient per recommendations of infectious disease did undergo a PICC line patient was felt to be a candidate to be transferred to [facility] subacute rehab. Impression discharge diagnosis Status post full-thickness excision of the chronic abdominal wound with application of a wound VAC on 10/25/2016 Unexpected postsurgical condition abdominal wound suspect due to comorbidities type 2 diabetes uncontrolled hemoglobin A1c 10.5 A recent exploratory laparotomy for small bowel resection lysin of adhesions with an incarcerated food bezoar done on 09/25/2016 Peripheral Neuropathy secondary to type 2 diabetes Restless leg syndrome Known coronary artery disease stable History of [id number] enterococcus with a history of ESBL E. coli April 2016 Anxiety depressive disorder nonspecified Left kidney cancer partial nephrectomy COPD without acute exacerbation hyperlipidemia Urine culture positive for ESBL E. coli 05/15/2016 Excisional debridement with wound VAC management 10/25/2016 Unable to determine abdominal wound surgical nonhealing Chronic debility Type 2 diabetes uncontrolled globin A1c 10.5 Chronic back pain History of a prior CVA with residual left-sided weakness Small bowel obstruction status post exploratory laparotomy extensive lysis of adhesions evacuation of over 6 feet of incarcerated food bezoar involving the mid to distal duodenum and small bowel resection and repair of incarcerated incisional hernia done on 09/25/2016 The above dictated assessment and findings were discussed with dr Nichols. Impression and the plan of care have been dictated as directed. Shaina Dockery nurse practitioner acting as a scribe for Dr. Nichols Patient Condition at Discharge: Stable Plan - Discharge Summary New Discharge Prescriptions: RX: HYDROcodone/APAP 5-325MG [Drummond 5-325] 1 each PO Q6HR PRN #20 tab PRN Reason: Pain RX: INSULIN LISPRO (HumaLOG) [humaLOG] 0 unit SQ ACHS #1 vial RX: Vancomycin 1,000 mg IVPB Q12H #28 bag Discharge Medication List RX: Clopidogrel [Plavix] 75 mg PO DAILY 04/28/15 [History] RX: Levothyroxine Sodium [Synthroid] 200 mcg PO QAM 04/28/15 [History] RX: Ergocalciferol [Vitamin D2 (DRISDOL)] 50,000 unit PO TU 10/11/15 [History] RX: Insulin Glargine,Hum.rec.anlog [Lantus Solostar] 20 unit SQ W/BRKFST [History] RX: Aspirin [Adult Low Dose Aspirin EC] 81 mg PO DAILY 09/04/16 [History] RX: Budesonide-Formot 160-4.5 Mcg [Symbicort 160-4.5 Mcg Inhaler] 2 puff INHALATION RT-BID 09/30/16 [History] RX: Albuterol Inhaler [Ventolin Hfa Inhaler] 1 - 2 puff INHALATION RT-Q6H PRN [History] RX: Atorvastatin [Lipitor] 80 mg PO HS 10/21/16 [History] RX: Insulin Glargine,Hum.rec.anlog [Lantus Solostar] 50 unit SQ HS 10/21/16 [ History] RX: Loratadine [Claritin] 10 mg PO DAILY PRN 10/21/16 [History] RX: Omeprazole [PriLOSEC] 40 mg PO QAM 10/21/16 [History] RX: Venlafaxine HCl [Venlafaxine HCl ER] 225 mg PO QAM 10/21/16 [History] RX: Albuterol Nebulized [Ventolin Nebulized] 2.5 mg INHALATION RT-Q4H PRN #0 nebu 10/28/16 [Rx] RX: HYDROcodone/APAP 5-325MG [Drummond 5-325] 1 each PO Q6HR PRN #20 tab 10/28/16 [ Rx] RX: INSULIN LISPRO (HumaLOG) [humaLOG] 0 unit SQ ACHS #1 vial 10/28/16 [Rx] RX: Insulin Glulisine [Apidra] 10 unit SQ BID-W/MEALS #0 10/28/16 [Rx] RX: Vancomycin 1,000 mg IVPB Q12H vial 10/29/16 [Rx] RX: Vancomycin 1,000 mg IVPB Q12H #28 bag 10/29/16 [Rx] Follow up Appointment(s)/Referral(s): Kiah Schroeder MD [REFERRING] - 1 Week (After DC from [facility]) Donnell Cancino MD [STAFF PHYSICIAN] - 3 Days (While at [facility]) Piedad Nichols MD [STAFF PHYSICIAN] - 11/19/16 Patient Instructions/Handouts: Chronic Wound Care (GEN), Negative Pressure Wound Therapy (DC) Activity/Diet/Wound Care/Special Instructions: [facility] wound VAC/Wound Care/antibiotics as per ID DIet: Cardiac Activity: as tolerated CBC,BMP in 3 days Discharge Disposition: TRANSFER TO [facility] <Piedad Nichols - Last Filed: 11/01/16 18:21> - Discharge Diagnosis(es) (1) Glycopeptide resistant enterococcus infection, multi-drug resistance Status: Acute (2) At risk for readmission to hospital Status: Acute (3) Chronic abdominal pain Status: Acute (4) HTN (hypertension) Status: Acute (5) Hyperglycemia Status: Resolved (6) Necrosis of surgical wound Status: Acute Procedures: Debridement of abdominal wall with application of wound vac
[2016-10-29 14:46] VITALS: BP 149/83; PULSE 88; RESP 16; TEMP 100.3
--- NOTE | 2016-10-29 17:04 | P.PN ---
Subjective Date of service 10/28/2016. Progress note being dictated for Dr. Hill. Interval history: This is a 56-year-old female admitted with chronic abdominal wound infection status post I&D with wound VAC applied. T-max 100.3. Wound cultures positive for MSSA/enterococcus Gallinarum. Maintained on IV antibiotic therapy via PICC line. Wound VAC in place. Denies abdominal pain. Good diet intake with no nausea or vomiting. No chest pain, palpitations or shortness of breath. Objective - Vital Signs Vital signs: Vital Signs Temp 100.3 F H 10/29/16 14:45 Pulse 88 10/29/16 14:45 Resp 16 10/29/16 15:07 BP 149/83 10/29/16 14:45 Pulse Ox 98 10/29/16 14:45 Intake & Output 10/28/16 10/29/16 10/29/16 18:59 06:59 18:59 Intake Total 400 3710 Balance 400 3710 Intake: Intake, IV Titration 250 Amount Vancomycin 1,000 mg In 250 Sodium Chloride 0.9% 250 ml @ 125 mls/hr IVPB Q12H [facility] Rx#:[id number] Oral 400 3460 Other: # Voids 4 2 5 # Bowel Movements 0 - Exam PHYSICAL EXAM: VITAL SIGNS: As above GENERAL: [Sitting up in bed, no acute distress] HEENT: [Pupils equal conjunctiva normal. No conjunctival pallor] NECK: [Supple, no JVD] RESPIRATORY EFFORT:[ Normal] LUNGS: [Essentially clear, bilateral bases diminished] CARDIOVASCULAR[ regular S1 and S2, no murmurs rubs or gallops, no edema] GI: [Abdomen soft, wound VAC present/dressing clean dry and intact, positive bowel sounds.] PSYCH: [Alert and oriented -3, mood and affect normal.] NEURO: [No focal deficits, moves all 4 extremities, strength and sensation grossly intact] Microbiology 10/25/16 15:00 Abdomen Anaerobic Culture - Final 10/25/16 20:07 Blood Blood Culture - Preliminary No Growth after 72 hours 10/25/16 19:36 Blood Blood Culture - Preliminary No Growth after 72 hours 10/25/16 15:00 Abdomen Gram Stain - Final 10/25/16 15:00 Abdomen Wound Culture - Final Staphylococcus aureus Enterococcus gallinarum - Labs CBC & Chem 7: 10/28/16 09:23 10/28/16 09:23 Labs: Abnormal Lab Results - Last 24 Hours (Table) 10/28/16 10/29/16 10/29/16 Range/Units 21:14 07:44 08:07 POC Glucose (mg/dL) 176 H 59 L 114 H (75-99) mg/dL 10/29/16 Range/Units 12:19 POC Glucose (mg/dL) 319 H (75-99) mg/dL Microbiology - Last 24 Hours (Table) 10/25/16 15:00 Anaerobic Culture - Final Abdomen 10/25/16 20:07 Blood Culture - Preliminary Blood No Growth after 72 hours 10/25/16 19:36 Blood Culture - Preliminary Blood No Growth after 72 hours Assessment and Plan Plan: 1. [ Chronic abdominal wall wound infection, status post I&D with lavage and application of wound VAC]. Cultures positive for MSSA/enterococcus Gallinarum. 2. [ Diabetes mellitus type 2]. 3. [ The cavitary lesion lesion, bilateral, possible septic emboli]. 4. [ COPD, without acute exacerbation]. 5. [ Nicotine dependence, history of]. 6. [ THC]. 7. [ Hypothyroidism]. 8. Hyperlipidemia 9. Essential hypertension 10. Left kidney cancer, partial nephrectomy 11. Chronic low back pain, degenerative joint disease 12. Anxiety, depression, not otherwise specified 13. Anemia, normocytic, of chronic disease 14. History of multiple drug resistant enterococcus, history of ESBL E. coli 15. CAD, history of [place] 16. History of multiple abdominal adhesions 17. History of recent exploratory laparotomy and bowel surgery 18. Restless leg syndrome 19. 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 Gastroesophageal reflux disease 21. Incarcerated food bezoar,hx of 22. Status post PICC line placement. Plan: Continue on current medication regime ,monitoring and symptomatic treatment. Antibiotics as per ID. Discharge planning in progress for [facility] rehab pending preauthorization. Further recommendations to follow. The impression and plan of care has been dictated as directed. : I performed a H&P examination of this patient and discussed the same with the dictator. I agree with the dictator's note. Any additional findings/opinions/ etc. will be noted.
--- NOTE | 2016-10-29 22:06 | PN ---
DATE OF SERVICE: 10/29/2016 This 56-year-old woman who was admitted with chronic a abdominal wound had surgery. The patient is slated [facility] for rehab. ( ) is pending at this time. I have seen and evaluated the patient with the nurse practitioner. Please refer to the nurse practitioner's notes and impressions documented as scribe for further information. Monitor blood sugar closely. further recommendations to follow.
[2016-10-30] MEDS ORDERED: VANCOMYCIN TROUGH DUE 1 EACH MISC MISCELLANE ONE (07:00)
== END 2016-10-29 17:05 | DRG 571 ==
LOC: OR 10:02 → 4MS4W 15:28
PROVIDERS: ADMIT Surgery Plastic and Reconstructive Surgery; ATTEND Surgery Plastic and Reconstructive Surgery
PROC: 0HB7XZZ Excision of Abdomen Skin, External Approach (ICD-10-PCS; principal; 2016-10-25 11:30)
PROC: 02HV33Z Insertion of Infusion Device into Superior Vena Cava, Percutaneous Approach (ICD-10-PCS; 2016-10-28 09:39)
DX: S31.105A Unspecified open wound of abdominal wall, periumbilic region without penetration into peritoneal cavity, initial encounter (principal); I69.354 Hemiplegia and hemiparesis following cerebral infarction affecting left non-dominant side; E11.42 Type 2 diabetes mellitus with diabetic polyneuropathy; I25.82 Chronic total occlusion of coronary artery; L08.9 Local infection of the skin and subcutaneous tissue, unspecified; B95.2 Enterococcus as the cause of diseases classified elsewhere; I25.10 Atherosclerotic heart disease of native coronary artery without angina pectoris; D63.8 Anemia in other chronic diseases classified elsewhere; B95.61 Methicillin susceptible Staphylococcus aureus infection as the cause of diseases classified elsewhere; E11.65 Type 2 diabetes mellitus with hyperglycemia; J44.9 Chronic obstructive pulmonary disease, unspecified; I25.2 Old myocardial infarction; I10 Essential (primary) hypertension; G89.29 Other chronic pain; K21.9 Gastro-esophageal reflux disease without esophagitis; M54.5 Low back pain; E89.0 Postprocedural hypothyroidism; E78.5 Hyperlipidemia, unspecified; R53.1 Weakness; F32.9 Major depressive disorder, single episode, unspecified; F41.9 Anxiety disorder, unspecified; G25.81 Restless legs syndrome; F12.90 Cannabis use, unspecified, uncomplicated; Z79.02 Long term (current) use of antithrombotics/antiplatelets; Z16.24 Resistance to multiple antibiotics; Z79.82 Long term (current) use of aspirin; Z79.51 Long term (current) use of inhaled steroids; Z79.899 Other long term (current) drug therapy; Z79.4 Long term (current) use of insulin; Z79.2 Long term (current) use of antibiotics; Z87.891 Personal history of nicotine dependence; Z80.3 Family history of malignant neoplasm of breast; Z82.49 Family history of ischemic heart disease and other diseases of the circulatory system; Z85.528 Personal history of other malignant neoplasm of kidney; Z71.3 Dietary counseling and surveillance; Z90.5 Acquired absence of kidney; Z87.440 Personal history of urinary (tract) infections; Z87.19 Personal history of other diseases of the digestive system; Z90.49 Acquired absence of other specified parts of digestive tract; Z98.42 Cataract extraction status, left eye; Z98.41 Cataract extraction status, right eye; Z96.1 Presence of intraocular lens; Z16.11 Resistance to penicillins; Z79.891 Long term (current) use of opiate analgesic; Z88.5 Allergy status to narcotic agent; Z88.2 Allergy status to sulfonamides; Z88.8 Allergy status to other drugs, medicaments and biological substances; Z91.030 Bee allergy status; Z91.040 Latex allergy status
CPT/HCPCS: 36569; 76937; 77001; 80053; 80202; 83036; 85025; 87040; 87070; 87075; 87077; 87186; 87205; 88304; 94640

== ENCOUNTER 2017-01-06 23:18 | Inpatient (IN) | payer OTHER ==
[2017-01-07] MEDS ORDERED: HYDROmorphone 1 MG/ML 1 ML SYRINGE IVP STA (00:03)
[2017-01-07] MEDS ORDERED: ONDANSETRON 4 MG/2 ML VIAL IVP STA (00:03)
[2017-01-07] MEDS ORDERED: SODIUM CHLORIDE 0.9% 500 ML IV STA (00:03)
[2017-01-07] MEDS ORDERED: RX INFO: IV CONTRAST WAS GIVEN 1 EACH MISC MISCELLANE PRN (00:04)
[2017-01-07 00:39] LABS: Basophils % (A) 1 %; CH 28.7; CHCM 33.9; Eosinophils # (A) 0.2 k/uL (0-0.7); Eosinophils % (A) 4 %; HCT 36.8 % (34.0-46.0); HDW 3.11; HGB 12.4 gm/dL (11.4-16.0); Luc # (Auto) 0.09; Luc % (Auto) 2; Lymphocytes # (A) 1.9 k/uL (1.0-4.8); Lymphocytes % (A) 37 %; MCH 28.6 pg (25.0-35.0); MCHC 33.7 g/dL (31.0-37.0); Monocytes # (A) 0.2 k/uL (0-1.0); Monocytes % (A) 4 %; Neutrophils # (A) 2.7 k/uL (1.3-7.7); Neutrophils % (A) 53 %; RBC 4.34 m/uL (3.80-5.40); RDW 14.7 % (11.5-15.5); WBC 5.1 k/uL (3.8-10.6); WBC (Perox) 4.84
[2017-01-07 00:50] LABS: ALT 38 U/L (9-52); AST 22 U/L (14-36); Alkaline Phosphatase 155 U/L (38-126); Amylase <30 U/L (30-110); Anion Gap 15 mmol/L; Blood Urea Nitrogen 21 mg/dL (7-17); Calcium 9.1 mg/dL (8.4-10.2); Carbon Dioxide 21 mmol/L (22-30); Chloride 95 mmol/L (98-107); Non-African American GFR(MDRD) >60 (>60 ml/min/1.73 sqM); Potassium 4.5 mmol/L (3.5-5.1); Sodium 131 mmol/L (137-145); Total Bilirubin 0.4 mg/dL (0.2-1.3); Total Protein 6.6 g/dL (6.3-8.2)
[2017-01-07 00:58] LABS: Glucose 579 mg/dL (74-99)
[2017-01-07 01:08] LABS: Appearance,Urine Cloudy (Clear); Bacteria,Urine Rare /hpf; Bilirubin,Urine Negative (Negative); Glucose,Urine (UA) 4+ (Negative); Leukocyte Esterase,Urine Moderate (Negative); Mucus,Urine Rare /hpf; Nitrite,Urine Negative (Negative); PH, Urine 5.5 (5.0-8.0); Particle Count 2380; Protein,Urine Negative (Negative); RBC,Urine 3 /hpf (0-5); Specific Gravity,Urine 1.022 (1.001-1.035); UA Billing (MACRO vs. MICRO) MICRO; Urobilinogen,Urine <2.0 mg/dL (<2.0); WBC,Urine 56 /hpf (0-5)
[2017-01-07 01:17] LABS: Ketones,Urine 2+ (Negative)
[2017-01-07] MEDS ORDERED: SODIUM CHLORIDE 0.9% 1,000 ML IV STA (01:18)
[2017-01-07 01:27] LABS: Glucose,Whole Blood 513 mg/dL (75-99)
[2017-01-07] MEDS ORDERED: INSULIN LISPRO (humaLOG) 300 UNIT/3 ML VIAL SQ ONE (01:29)
[2017-01-07 02:16] LABS: Glucose,Whole Blood 455 mg/dL (75-99)
--- NOTE | 2017-01-07 02:42 | CT ---
CT abdomen and pelvis with contrast INDICATION: abdominal pain TECHNIQUE: Multiple, contiguous axial cuts of the abdomen and pelvis are obtained from the lung bases to the ischial tuberosities following the administration of 100 cc omnipaque 300. Sagittal and coronal reformatted images are available. Radiation Dose: DLP: 548.6 mGy-cm This CT exam was performed using one or more of the following dose reduction techniques: automated exposure control, adjustment of the mA and/or kV according to patient size, and/or use of iterative reconstruction technique. COMPARISON: CT abdomen/pelvis 09/16/16 FINDINGS: Nonspecific 4 mm ground-glass opacity in the right lower lobe series 7 image 40. Redemonstrated calcification at the left lower lobe. The heart is unchanged in size. The liver appears normal in size. Redemonstrated pneumobilia. The gallbladder is contracted limiting evaluation. Stable appearance of the spleen. There is nonspecific prominence of the proximal pancreatic duct. There is a 1.5 cm right adrenal gland nodule. The left adrenal gland appears unremarkable. Mild prominence of right renal pelvis. The distal ureters are not well identified. There may have been a left partial nephrectomy. Again seen is a prominent calcification in the left kidney. No evidence for hydronephrosis. The bladder appears thickened for the degree of distention. There may be postsurgical material along the anterior gastric body. The appendix is not reliably identified. There is nonspecific prominence of the small bowel in the left abdomen measuring up to 3.3 cm. There are postsurgical changes of the midline abdominal wall below the level the umbilicus containing small cluster of air. There are inflammatory changes of the abdominal fat along the surgical margin. There are surgical material in the midline lower abdomen. Heterogeneous enhancement of the uterus with areas of lobulation. Atherosclerotic calcifications of the aorta. Multilevel degenerative changes of the lumbar spine. There is a pars defects at L5. There is partial fusion of L5/S1 with grade 1 anterolisthesis of L5/S1. IMPRESSION: 1. Prominence of the small bowel in the left abdomen measuring up to 3.3 cm which may be an area of ileus vs bowel obstruction. 2. Midline lower abdominal surgical changes with small foci of air within the surgical margins which may be related to recent manipulation, however infection is not entirely excluded. Please correlate for timing of surgery. 3. Redemonstrated pneumobilia. 4. Prominence of the proximal pancreatic duct. 5. Likely fibroid uterus. Bladder appears thickened for the degree of distention. Please correlate with urinalysis. 6. Nonspecific 4 mm ground-glass opacity in the right lower lobe. 7. There is a 1.5 cm right adrenal nodule, grossly unchanged in size since prior exam.
[2017-01-07 02:56] LABS: Glucose,Whole Blood 395 mg/dL (75-99)
[2017-01-07] MEDS ORDERED: ONDANSETRON 4 MG/2 ML VIAL IVP PRN (03:02)
[2017-01-07] MEDS ORDERED: NALOXONE 0.4 MG/ML 1 ML VIAL IV PRN (03:02)
--- NOTE | 2017-01-07 03:10 | ED ---
General Adult HPI - General Chief complaint: Skin/Abscess/Foreign Body Stated complaint: open wound/stomach Time Seen by Provider: 01/06/17 23:52 Source: patient Mode of arrival: ambulatory Limitations: no limitations - History of Present Illness Initial comments: 56-year-old female patient presents to emergency department today for evaluation of an open wound to her periumbilical region. Patient states that after her shower this evening she noticed some blood coming from her umbilicus. Patient states that the bleeding has not stopped even with a dressing applied. Patient is also complaining of some right-sided abdominal pain. Patient states that she woke with abdominal pain this morning, she states it is constant, and describes it as crampy pain. She has also had diarrhea for the last 2 days. Patient states the diarrhea started as watery, but now comes out as soft, thin pencillike stools. Patient denies any nausea, vomiting, chest pain, shortness of breath, fever, chills, dizziness, weakness, dysuria, urinary urgency, or frequency. Patient does have an extensive abdominal surgical history including a laparotomy performed for bowel obstruction and lysis of adhesions in September 2016. After the surgery patient did develop a necrotic wound to the surgical site near the umbilicus. She underwent subsequent surgery in October 2016 to remove the necrotic tissue, and had therapy with a wound VAC as well as IV antibiotics via PICC line at [facility]. Patient states that at her last visit with Dr. Koenig, she was told the wound was completely healed and was pain-free. - Related Data Home Medications Medication Instructions Recorded Confirmed Clopidogrel [Plavix] 75 mg PO DAILY 04/28/15 01/06/17 Levothyroxine Sodium [Synthroid] 200 mcg PO QAM 04/28/15 01/06/17 Ergocalciferol [Vitamin D2 50,000 unit PO TU 10/11/15 01/06/17 (DRISDOL)] Insulin Glargine,Hum.rec.anlog 20 unit SQ W/BRKFST 07/05/16 01/06/17 [Lantus Solostar] Aspirin [Adult Low Dose Aspirin EC] 81 mg PO DAILY 09/04/16 01/06/17 Budesonide-Formot 160-4.5 Mcg 2 puff INHALATION RT-BID 09/30/16 01/06/17 [Symbicort 160-4.5 Mcg Inhaler] Albuterol Inhaler [Ventolin Hfa 1 - 2 puff INHALATION RT-Q6H PRN 10/21/16 Inhaler] Atorvastatin [Lipitor] 80 mg PO HS 10/21/16 01/06/17 Insulin Glargine,Hum.rec.anlog 50 unit SQ HS 10/21/16 01/06/17 [Lantus Solostar] Loratadine [Claritin] 10 mg PO DAILY PRN 10/21/16 01/06/17 Omeprazole [PriLOSEC] 40 mg PO QAM 10/21/16 01/06/17 Venlafaxine HCl [Venlafaxine HCl 225 mg PO QAM 10/21/16 01/06/17 ER] Previous Rx's Medication Instructions Recorded Albuterol Nebulized [Ventolin 2.5 mg INHALATION RT-Q4H PRN #0 10/28/16 Nebulized] nebu HYDROcodone/APAP 5-325MG [Pillow 1 each PO Q6HR PRN #20 tab 10/28/16 5-325] INSULIN LISPRO (HumaLOG) [humaLOG] 0 unit SQ ACHS #1 vial 10/28/16 Insulin Glulisine [Apidra] 10 unit SQ BID-W/MEALS #0 10/28/16 Allergies Allergy/AdvReac Type Severity Reaction Status Date / Time latex Allergy Rash/Hives Verified 01/06/17 23:25 Sulfa (Sulfonamide Allergy Rash/Hives Verified 01/06/17 23:25 Antibiotics) venom-honey bee Allergy Anaphylaxis Verified 01/06/17 23:25 morphine AdvReac Decreased Verified 01/06/17 23:25 Blood Pressure prochlorperazine edisylate AdvReac Vomiting Verified 01/06/17 23:25 [From Compazine] prochlorperazine maleate AdvReac Vomiting Verified 01/06/17 23:25 [From Compazine] Review of Systems ROS Statement: Those systems with pertinent positive or pertinent negative responses have been documented in the HPI. ROS Other: All systems not noted in ROS Statement are negative. Past Medical History Past Medical History: COPD, CVA/TIA, Diabetes Mellitus, GERD/Reflux, Hyperlipidemia, Hypertension, Myocardial Infarction (MD), Thyroid Disorder Additional Past Medical History / Comment(s): Open incision to abdomen.Pt recently admitted to [facility] on 09/16/16 with SBO with surgery/possible septic emboli with cavitary lesions bilateral lungs. Other hx: left renal cell carcinoma status post partial nephrectomy, CVA 4, diabetes mellitus, COPD, hypothyroidism, chronic back pain, urine checked infection with sepsis secondary to ESBL producing E. coli in April 2016 requiring a PICC line insertion for IV antibiotics, coronary artery disease with previous MD, restless leg syndrome, peripheral neuropathy, hypertension, hypothyroidism, hyperlipidemia, GE reflux, depression Last Myocardial Infarction Date:: 2012 History of Any Multi-Drug Resistant Organisms: ESBL Date of last positivie culture/infection: 05/07/16 ESBL, 05/15/16 VRE MDRO Source:: URINE E.COLI, EC GALLINARUM Past Surgical History: Appendectomy, Bowel Resection, Section, Heart Catheterization Additional Past Surgical History / Comment(s): 09/23/16 exploratory laparotomy, lysis of adhesions bowel resection d/t obstruction evacuation incarcerated food bezoar/repair incarcerated incisional hernia with abdominal washout. Other sx hx: thyroidectomy(non functioning) heart cath 06-18-12 100% occluded LAD unable to stent, partial nephrectomy for a left kidney renal cell carcinoma, PICC line insertion (since removed), colonoscopy, bilateral cataract removal with lens implants, 2 C-Sections. Past Anesthesia/Blood Transfusion Reactions: No Reported Reaction Past Psychological History: Anxiety, Depression Smoking Status: Former smoker Past Alcohol Use History: None Reported Past Drug Use History: Marijuana - Past Family History Father Family Medical History: Myocardial Infarction (MD) Additional Family Medical History / Comment(s): from [place] at age 48 Mother Family Medical History: Cancer Additional Family Medical History / Comment(s): maeve breasts removed d/t cancer, hysterectomy d/t cancer General Exam Limitations: no limitations General appearance: alert, in no apparent distress Eye exam: Present: normal appearance, PERRL, EOMI. Absent: scleral icterus, conjunctival injection, periorbital swelling ENT exam: Present: normal exam, mucous membranes moist Neck exam: Present: normal inspection. Absent: tenderness, meningismus, lymphadenopathy Respiratory exam: Present: normal lung sounds bilaterally. Absent: respiratory distress, wheezes, rales, rhonchi, stridor Cardiovascular Exam: Present: regular rate, normal rhythm, normal heart sounds. Absent: systolic murmur, diastolic murmur, rubs, gallop, clicks GI/Abdominal exam: Present: soft, tenderness (Right upper quadrant, right lower quadrant), normal bowel sounds, other (Open wound draining a small amount of serosanguineous fluid noted over postsurgical scarring near the umbilicus). Absent: distended, guarding, rebound, rigid Neurological exam: Present: alert, oriented X3, CN II-XII intact Psychiatric exam: Present: normal affect, normal mood Skin exam: Present: warm, dry, intact, normal color. Absent: rash Course Vital Signs 01/06/17 01/07/17 01/07/17 23:22 00:34 01:30 Temperature 97 F L 99.3 F 98.6 F Pulse Rate 92 93 94 Respiratory 18 18 16 Rate Blood Pressure 138/83 127/81 158/77 O2 Sat by Pulse 99 98 96 Oximetry Medical Decision Making - Medical Decision Making His initial female patient presented to emergency department today for evaluation of a draining wound to her umbilicus, as well as some right-sided abdominal pain. Patient was found to be hyperglycemic with a positive acetone. Patient's urine did show possible infection, patient is asymptomatic at this time, will await culture. Patient also had some changes on CT of the abdomen and pelvis. Patient will be admitted to Dr. Hill's group with consult to Dr. Koenig for further evaluation. - Lab Data Result diagrams: 01/07/17 00:25 01/07/17 00:25 Lab Results 01/07/17 01/07/17 01/07/17 Range/Units 00:25 00:25 00:25 WBC 5.1 (3.8-10.6) k/uL RBC 4.34 (3.80-5.40) m/uL Hgb 12.4 (11.4-16.0) gm/dL Hct 36.8 (34.0-46.0) % MCV 85.0 (80.0-100.0) fL MCH 28.6 (25.0-35.0) pg MCHC 33.7 (31.0-37.0) g/dL RDW 14.7 (11.5-15.5) % Plt Count 182 (150-450) k/uL Neutrophils % 53 % Lymphocytes % 37 % Monocytes % 4 % Eosinophils % 4 % Basophils % 1 % Neutrophils # 2.7 (1.3-7.7) k/uL Lymphocytes # 1.9 (1.0-4.8) k/uL Monocytes # 0.2 (0-1.0) k/uL Eosinophils # 0.2 (0-0.7) k/uL Basophils # 0.0 (0-0.2) k/uL Sodium 131 L (137-145) mmol/L Potassium 4.5 (3.5-5.1) mmol/L Chloride 95 L (98-107) mmol/L Carbon Dioxide 21 L (22-30) mmol/L Anion Gap 15 mmol/L BUN 21 H (7-17) mg/dL Creatinine 0.80 (0.52-1.04) mg/dL Est GFR (MDRD) Af Amer >60 (>60 ml/min/1.73 sqM) Est GFR (MDRD) Non-Af >60 (>60 ml/min/1.73 sqM) Glucose 579 H* (74-99) mg/dL POC Glucose (mg/dL) (75-99) mg/dL POC Glu [employer] ID Calcium 9.1 (8.4-10.2) mg/dL Total Bilirubin 0.4 (0.2-1.3) mg/dL AST 22 (14-36) U/L ALT 38 (9-52) U/L Alkaline Phosphatase 155 H (38-126) U/L Total Protein 6.6 (6.3-8.2) g/dL Albumin 4.2 (3.5-5.0) g/dL Amylase <30 L (30-110) U/L Lipase 77 (23-300) U/L Urine Color Urine Appearance (Clear) Urine pH (5.0-8.0) Ur Specific [place] (1.001-1.035) Urine Protein (Negative) Urine Glucose (UA) (Negative) Urine Ketones (Negative) Urine Blood (Negative) Urine Nitrite (Negative) Urine Bilirubin (Negative) Urine Urobilinogen (<2.0) mg/dL Ur Leukocyte Esterase (Negative) Urine RBC (0-5) /hpf Urine WBC (0-5) /hpf Urine WBC Clumps (None) /hpf Urine Bacteria (None) /hpf Urine Mucus (None) /hpf Acetone, Qual Positive (Negative) 01/07/17 01/07/17 01/07/17 Range/Units 00:43 01:25 02:15 WBC (3.8-10.6) k/uL RBC (3.80-5.40) m/uL Hgb (11.4-16.0) gm/dL Hct (34.0-46.0) % MCV (80.0-100.0) fL MCH (25.0-35.0) pg MCHC (31.0-37.0) g/dL RDW (11.5-15.5) % Plt Count (150-450) k/uL Neutrophils % % Lymphocytes % % Monocytes % % Eosinophils % % Basophils % % Neutrophils # (1.3-7.7) k/uL Lymphocytes # (1.0-4.8) k/uL Monocytes # (0-1.0) k/uL Eosinophils # (0-0.7) k/uL Basophils # (0-0.2) k/uL Sodium (137-145) mmol/L Potassium (3.5-5.1) mmol/L Chloride (98-107) mmol/L Carbon Dioxide (22-30) mmol/L Anion Gap mmol/L BUN (7-17) mg/dL Creatinine (0.52-1.04) mg/dL Est GFR (MDRD) Af Amer (>60 ml/min/1.73 sqM) Est GFR (MDRD) Non-Af (>60 ml/min/1.73 sqM) Glucose (74-99) mg/dL POC Glucose (mg/dL) 513 H 455 H (75-99) mg/dL POC Glu [employer] Hel[employer] ID White, Ai White, Ai Calcium (8.4-10.2) mg/dL Total Bilirubin (0.2-1.3) mg/dL AST (14-36) U/L ALT (9-52) U/L Alkaline Phosphatase (38-126) U/L Total Protein (6.3-8.2) g/dL Albumin (3.5-5.0) g/dL Amylase (30-110) U/L Lipase (23-300) U/L Urine Color Light Yellow Urine Appearance Cloudy H (Clear) Urine pH 5.5 (5.0-8.0) Ur Specific [place] 1.022 (1.001-1.035) Urine Protein Negative (Negative) Urine Glucose (UA) 4+ H (Negative) Urine Ketones 2+ H (Negative) Urine Blood Negative (Negative) Urine Nitrite Negative (Negative) Urine Bilirubin Negative (Negative) Urine Urobilinogen <2.0 (<2.0) mg/dL Ur Leukocyte Esterase Moderate H (Negative) Urine RBC 3 (0-5) /hpf Urine WBC 56 H (0-5) /hpf Urine WBC Clumps Few H (None) /hpf Urine Bacteria Rare H (None) /hpf Urine Mucus Rare H (None) /hpf Acetone, Qual (Negative) 01/07/17 Range/Units 02:53 WBC (3.8-10.6) k/uL RBC (3.80-5.40) m/uL Hgb (11.4-16.0) gm/dL Hct (34.0-46.0) % MCV (80.0-100.0) fL MCH (25.0-35.0) pg MCHC (31.0-37.0) g/dL RDW (11.5-15.5) % Plt Count (150-450) k/uL Neutrophils % % Lymphocytes % % Monocytes % % Eosinophils % % Basophils % % Neutrophils # (1.3-7.7) k/uL Lymphocytes # (1.0-4.8) k/uL Monocytes # (0-1.0) k/uL Eosinophils # (0-0.7) k/uL Basophils # (0-0.2) k/uL Sodium (137-145) mmol/L Potassium (3.5-5.1) mmol/L Chloride (98-107) mmol/L Carbon Dioxide (22-30) mmol/L Anion Gap mmol/L BUN (7-17) mg/dL Creatinine (0.52-1.04) mg/dL Est GFR (MDRD) Af Amer (>60 ml/min/1.73 sqM) Est GFR (MDRD) Non-Af (>60 ml/min/1.73 sqM) Glucose (74-99) mg/dL POC Glucose (mg/dL) 395 H (75-99) mg/dL POC Glu [employer] ID Arft, Benjamin Calcium (8.4-10.2) mg/dL Total Bilirubin (0.2-1.3) mg/dL AST (14-36) U/L ALT (9-52) U/L Alkaline Phosphatase (38-126) U/L Total Protein (6.3-8.2) g/dL Albumin (3.5-5.0) g/dL Amylase (30-110) U/L Lipase (23-300) U/L Urine Color Urine Appearance (Clear) Urine pH (5.0-8.0) Ur Specific [place] (1.001-1.035) Urine Protein (Negative) Urine Glucose (UA) (Negative) Urine Ketones (Negative) Urine Blood (Negative) Urine Nitrite (Negative) Urine Bilirubin (Negative) Urine Urobilinogen (<2.0) mg/dL Ur Leukocyte Esterase (Negative) Urine RBC (0-5) /hpf Urine WBC (0-5) /hpf Urine WBC Clumps (None) /hpf Urine Bacteria (None) /hpf Urine Mucus (None) /hpf Acetone, Qual (Negative) - Radiology Data Radiology results: report reviewed, image reviewed CT abdomen and pelvis with contrast reveals prominence of the small bowel the left abdomen measuring up to 3.3 cm which may be an area of ileus versus bowel structure. Midline lower abdominal surgical changes and small foci of air within the surgical margins which may be related to recent manipulation, however infection is not entirely excluded. Please correlate for timing of surgery. Redemonstrated pneumobilia. Prominence of the proximal pancreatic duct. Likely fibroid uterus bladder appears thickened for the degree of distention. Sclerae with urinalysis. Nonspecific 4 mm groundglass opacity in the right lower lobe. There is a 1.5 cm right adrenal nodule, grossly unchanged and size since prior exam. Disposition Clinical Impression: Hyperglycemia, Abdominal pain Disposition: ADMITTED IP TO THIS [facility] Condition: Stable Referrals: Kiah Schroeder MD [Primary Care Provider] - 1-2 days Decision to Admit Reason: Admit from EC Decision Date: 01/07/17 Decision Time: 03:10
[2017-01-07] MEDS: SODIUM CHLORIDE 0.9% 1,000 ML IV SCH ×2 (03:17→16:24)
[2017-01-07] MEDS: HYDROmorphone 1 MG/ML 1 ML SYRINGE IV PRN ×3 (05:29→21:32)
[2017-01-07 07:28] LABS: Glucose,Whole Blood 171 mg/dL (75-99)
[2017-01-07 07:39] VITALS: RESP 16
[2017-01-07] MEDS: INSULIN LISPRO (humaLOG) 300 UNIT/3 ML VIAL SQ SCH ×6 (07:54→21:35)
[2017-01-07] MEDS ORDERED: ALBUTEROL NEBULIZED 2.5 MG/3 ML INHALATION PRN (11:25)
[2017-01-07] MEDS ORDERED: LORATADINE 10 MG TAB PO PRN (11:25)
[2017-01-07] MEDS ORDERED: IV VANCOMYCIN PER PHARMACY 1 EACH MISC MISCELLANE PRN (11:33)
--- NOTE | 2017-01-07 11:48 | P.HPIM ---
History of Present Illness 56-year-old female patient presents to emergency department today for evaluation of an open wound to her periumbilical region. Patient states that after her shower this evening she noticed some pus coming from her umbilicus. Patient states that the bleeding has not stopped even with a dressing applied. Patient is also complaining of some right-sided abdominal pain. Patient states that she woke with abdominal pain this morning, she states it is constant , and describes it as crampy pain. She has also had diarrhea for the last 2 days. Patient denies any nausea, vomiting, chest pain, shortness of breath, fever, chills, dizziness, weakness, dysuria, urinary urgency, or frequency. Patient does have an extensive abdominal surgical history including a laparotomy performed for bowel obstruction and lysis of adhesions in September 2016. After the surgery patient did develop a necrotic wound to the surgical site near the umbilicus. She underwent subsequent surgery in October 2016 to remove the necrotic tissue, and had therapy with a wound VAC as well as IV antibiotics via PICC line at [facility]. Patient states that at her last visit with Dr. Nichols, she was told the wound was completely healed and was pain- free. Patient had a CAT scan of the abdomen which did not show an abscess but suspicious for ileus although patient does not have any clinical signs or symptoms of ileus. Surgery will evaluate the patient. Patient does have significant amount of pus in the medical area for a for which wound cultures were obtained and patient was started on IV vancomycin. And patient the had a nodule on the adrenal gland unchanged compared to the previous exam. Patient blood sugars are very high because of which had patient is having these recurrent infections patient has enterococcus in the past and Staphylococcus in the past and vancomycin should cover both. Patient was on IV insulin which will be discontinued and patient was started on her home regimen will watch her overnight with IV antibiotics and possibly day of discharge tomorrow no oral antibiotics and surgical evaluation is pending Review of Systems REVIEW OF SYSTEMS: CONSTITUTIONAL: No fever, no malaise, no fatigue. HEENT: No recent visual problems or hearing problems. Denied any sore throat. CARDIOVASCULAR: No chest pain, orthopnea, PND, no palpitations, no syncope. PULMONARY: No shortness of breath, no cough, no hemoptysis. GASTROINTESTINAL: No diarrhea, no nausea, no vomiting, no abdominal pain. Normoactive bowel sounds. NEUROLOGICAL: No headaches, no weakness, no numbness. HEMATOLOGICAL: Denies any bleeding or petechiae. GENITOURINARY: Denies any burning micturition, frequency, or urgency. MUSCULOSKELETAL/RHEUMATOLOGICAL: Denies any joint pain, swelling, or any muscle pain. ENDOCRINE: Denies any polyuria or polydipsia. The rest of the 14-point review of systems is negative. Past Medical History Past Medical History: COPD, CVA/TIA, Diabetes Mellitus, GERD/Reflux, Hyperlipidemia, Hypertension, Myocardial Infarction (ND), Thyroid Disorder Additional Past Medical History / Comment(s): Open incision to abdomen.Pt recently admitted to [facility] on 09/16/16 with SBO with surgery/possible septic emboli with cavitary lesions bilateral lungs. Other hx: left renal cell carcinoma status post partial nephrectomy, CVA 4, diabetes mellitus, COPD, hypothyroidism, chronic back pain, urine checked infection with sepsis secondary to ESBL producing E. coli in April 2016 requiring a PICC line insertion for IV antibiotics, coronary artery disease with previous ND, restless leg syndrome, peripheral neuropathy, hypertension, hypothyroidism, hyperlipidemia, GE reflux, depression Last Myocardial Infarction Date:: 2012 History of Any Multi-Drug Resistant Organisms: ESBL, VRE Date of last positivie culture/infection: 05/07/16 ESBL, 05/15/16 VRE MDRO Source:: URINE E.COLI, EC GALLINARUM Past Surgical History: Appendectomy, Bowel Resection, Section, Heart Catheterization Additional Past Surgical History / Comment(s): 09/23/16 exploratory laparotomy, lysis of adhesions bowel resection d/t obstruction evacuation incarcerated food bezoar/repair incarcerated incisional hernia with abdominal washout. Other sx hx: thyroidectomy(non functioning) heart cath --13 100% occluded LAD unable to stent, partial nephrectomy for a left kidney renal cell carcinoma, PICC line insertion (since removed), colonoscopy, bilateral cataract removal with lens implants, 2 C-Sections. Past Anesthesia/Blood Transfusion Reactions: No Reported Reaction Past Psychological History: Anxiety, Depression Additional Psychological History / Comment(s): TAKES EFFEXOR FOR DEPRESSION STATED SHE FEELS MAINTAINED ON THAT MEDICATION.DENIES ANY THOUGHTS OF HARMING SELF. Pt lives with her significant other in [facility] and is independant. She is able to drive, but does not own a car. She arranges rides thru [place] or uses a cab. Smoking Status: Former smoker Past Alcohol Use History: None Reported Additional Past Alcohol Use History / Comment(s): STARTED SMOKING AT AGE 10.HAD WORKED UP TO 3 PPD BUT QUIT 09/16/16. Past Drug Use History: Marijuana Additional Drug Use History / Comment(s): OCC USES MARIJUANA-LAST USED September prior to surg. - Past Family History Father Family Medical History: Myocardial Infarction (ND) Additional Family Medical History / Comment(s): from mi at age 48 Mother Family Medical History: Cancer Additional Family Medical History / Comment(s): maeve breasts removed d/t cancer, hysterectomy d/t cancer Medications and Allergies Home Medications Medication Instructions Recorded Confirmed Type Clopidogrel [Plavix] 75 mg PO DAILY 04/28/15 01/07/17 History Levothyroxine Sodium [Synthroid] 200 mcg PO DAILY 04/28/15 01/07/17 History Insulin Glargine,Hum.rec.anlog 25 unit SQ W/BRKFST 07/05/16 01/07/17 History [Lantus Solostar] Aspirin [Adult Low Dose Aspirin EC] 81 mg PO HS 09/04/16 01/07/17 History Budesonide-Formot 160-4.5 Mcg 2 puff INHALATION RT-BID 09/30/16 01/07/17 History [Symbicort 160-4.5 Mcg Inhaler] Albuterol Inhaler [Ventolin Hfa 2 puff INHALATION RT-Q6H PRN 10/21/16 01/07/17 History Inhaler] Insulin Glargine,Hum.rec.anlog 50 unit SQ HS 10/21/16 01/07/17 History [Lantus Solostar] Loratadine [Claritin] 10 mg PO DAILY PRN 10/21/16 01/07/17 History Venlafaxine HCl [Venlafaxine HCl 225 mg PO DAILY 10/21/16 01/07/17 History ER] Atorvastatin [Lipitor] 40 mg PO DAILY 01/07/17 01/07/17 History Baclofen 10 mg PO BID 01/07/17 01/07/17 History Gabapentin [Neurontin] 200 mg PO BID 01/07/17 01/07/17 History Insulin Glulisine [Apidra] 10 unit SQ TID-W/MEALS 01/07/17 01/07/17 History Levothyroxine Sodium [Synthroid] 25 mcg PO DAILY 01/07/17 01/07/17 History Naproxen 500 mg PO BID 01/07/17 01/07/17 History Omeprazole [PriLOSEC] 20 mg PO BID 01/07/17 01/07/17 History cloNIDine HCL [Catapres] 0.1 mg PO HS 01/07/17 01/07/17 History Allergies Allergy/AdvReac Type Severity Reaction Status Date / Time latex Allergy Rash/Hives Verified 01/07/17 08:10 Sulfa (Sulfonamide Allergy Rash/Hives Verified 01/07/17 08:10 Antibiotics) venom-honey bee Allergy Anaphylaxis Verified 01/07/17 08:10 morphine AdvReac Decreased Verified 01/07/17 08:10 Blood Pressure prochlorperazine edisylate AdvReac Vomiting Verified 01/07/17 08:10 [From Compazine] prochlorperazine maleate AdvReac Vomiting Verified 01/07/17 08:10 [From Compazine] Physical Exam Vitals: Vital Signs Temp Pulse Pulse Resp BP BP Pulse Ox 01/07/17 07:00 97.5 F L 83 16 104/54 99 01/07/17 04:37 97 F L 77 20 138/72 98 01/07/17 03:19 98.4 F 79 16 110/68 97 01/07/17 01:30 98.6 F 94 16 158/77 96 01/07/17 00:34 99.3 F 93 18 127/81 98 01/06/17 23:22 97 F L 92 18 138/83 99 Intake and Output 01/06/17 01/07/17 01/07/17 22:59 06:59 14:59 Intake Total 0 Balance 0 Intake: Oral 0 Other: Voiding Method Toilet Toilet Weight 61.689 kg PHYSICAL EXAMINATION: GENERAL: The patient is alert and oriented x3, not in any acute distress. Well developed, well nourished. HEENT: Pupils are round and equally reacting to light. EOMI. No scleral icterus. No conjunctival pallor. Normocephalic, atraumatic. No pharyngeal erythema. No thyromegaly. CARDIOVASCULAR: S1 and S2 present. No murmurs, rubs, or gallops. PULMONARY: Chest is clear to auscultation, no wheezing or crackles. ABDOMEN: Soft, nontender, nondistended, normoactive bowel sounds. No palpable organomegaly. MUSCULOSKELETAL: No joint swelling or deformity. EXTREMITIES: No cyanosis, clubbing, or pedal edema. NEUROLOGICAL: Gross neurological examination did not reveal any focal deficits. SKIN: Patient has purulent drainage in the apical area without any significant redness. Results CBC & Chem 7: 01/07/17 00:25 01/07/17 00:25 Labs: Abnormal Lab Results - Last 24 Hours (Table) 01/07/17 01/07/17 01/07/17 Range/Units 00:25 00:43 01:25 Sodium 131 L (137-145) mmol/L Chloride 95 L (98-107) mmol/L Carbon Dioxide 21 L (22-30) mmol/L BUN 21 H (7-17) mg/dL Glucose 579 H* (74-99) mg/dL POC Glucose (mg/dL) 513 H (75-99) mg/dL Alkaline Phosphatase 155 H (38-126) U/L Amylase <30 L (30-110) U/L Urine Appearance Cloudy H (Clear) Urine Glucose (UA) 4+ H (Negative) Urine Ketones 2+ H (Negative) Ur Leukocyte Esterase Moderate H (Negative) Urine WBC 56 H (0-5) /hpf Urine WBC Clumps Few H (None) /hpf Urine Bacteria Rare H (None) /hpf Urine Mucus Rare H (None) /hpf 01/07/17 01/07/17 01/07/17 Range/Units 02:15 02:53 07:23 Sodium (137-145) mmol/L Chloride (98-107) mmol/L Carbon Dioxide (22-30) mmol/L BUN (7-17) mg/dL Glucose (74-99) mg/dL POC Glucose (mg/dL) 455 H 395 H 171 H (75-99) mg/dL Alkaline Phosphatase (38-126) U/L Amylase (30-110) U/L Urine Appearance (Clear) Urine Glucose (UA) (Negative) Urine Ketones (Negative) Ur Leukocyte Esterase (Negative) Urine WBC (0-5) /hpf Urine WBC Clumps (None) /hpf Urine Bacteria (None) /hpf Urine Mucus (None) /hpf Thrombosis Risk Factor Assmnt - Choose All That Apply Any of the Below Risk Factors Present?: Yes Each Factor Represents 1 point: Age 41-60 years, History of prior major surgery (<1month) Each Risk Factor Represents 2 Points: Major surgery Thrombosis Risk Factor Assessment Total Risk Factor Score: 4 Thrombosis Risk Factor Assessment Level: Moderate Risk Assessment and Plan Plan: #1 wound infection: Possible abscesses low in the medical area, patient will be started on vancomycin which should cover both enterococcus and MRSA that was seen during her previous hospitalization. #2 severe hyperglycemia: Uncontrolled blood sugars and type 2 diabetes mellitus. Patient blood sugars improved with IV insulin patient will be resumed back on hold home regimen and will watch her overnight. Patient states she is compliant with her medications. Patient recurrent infections are probably due to hyperglycemia. Because of which controlling her blood sugars is really important at this time. Diabetic education. #3 COPD without any acute exacerbatio. #4 hyperlipidemia #5 hypertension #6 hypothyroidism: Patient is on very high-dose of levothyroxine which will be continued and TSH will be obtained. #7 gastroesophageal reflux disease #8 cerebrovascular accident in the past #9 coronary artery disease For rest of the above-mentioned chronic medical problems. Ortega continue her home medications.
[2017-01-07] MEDS ORDERED: VANCOMYCIN 1,500 MG in SODIUM CHLORIDE 0.9% 250 ML IVPB ONE (12:00)
[2017-01-07 12:23] LABS: Glucose,Whole Blood 282 mg/dL (75-99)
[2017-01-07] MEDS: ESOMEPRAZOLE 20 MG in SODIUM CHLORIDE 0.9% 50 ML IVPB SCH (12:55)
--- NOTE | 2017-01-07 15:31 | P.GSCN ---
History of Present Illness Consult date: 01/07/17 Reason for Consult: Open wound History of present illness: The patient is a 56-year-old white female who presented to the emergency room for evaluation of an open wound in her periumbilical region. Of significance is the fact that the patient on September 19 underwent a surgical resection for lysis of adhesions hernia repair and as per the patient skin removal the patient subsequently developed a wound infection and October 25 underwent a surgical procedure to debride the umbilical wound drain it and insert a PICC line. She subsequently had a wound VAC placed and was transferred to a alf facility where she received IV antibiotics until November 25. The patient was then discharged home and was doing well with the wound being packed with saline and dry gauze. She last week's Dr. Nichols in the office and everything seemed to be healed well. She states that last night she was in the shower and when she pushed the area of the wound opened and she had some drainage of purulent material and bloody discharge. She denies any fever or chills. She has had some diarrhea but denies any nausea or vomiting. Patient had a CAT scan performed of the abdomen which did not show any abscess. Past surgical history: 1. Appendectomy 2. Cholecystectomy if followed by surgery for injury of the common bile duct 3. Bilateral cataract surgery 4. Ganglion cyst on her wrist 5. Thyroid removed 6. Partial nephrectomy for renal cell carcinoma 7. Surgery for small bowel obstruction 8. Lysis of adhesions, hernia repair 9. Debridement of infected wound with wound VAC placement of PICC line placement Past medical history: 1. Hypertension 2. Diabetes 3. Anxiety depression 4. Asthma 6. WA in the past 7. Diarrhea 8. UTIs 9. Right adrenal nodule seen on CAT scan Review of systems: HEENT: Negative Heart: WA, murmur since Lungs: Asthma GI: Diarrhea : UTI's Review of Systems - Constitutional Reports as per HPI - Cardiovascular Reports as per HPI - Respiratory Reports as per HPI - Gastrointestinal Reports as per HPI, Reports diarrhea - Genitourinary Genitourinary: Reports as per HPI - Integumentary Integumentary Comment(s): tatoos - Psychiatric Reports as per HPI, Reports anxiety, Reports depression - Endocrine Reports high blood sugars Past Medical History Past Medical History: COPD, CVA/TIA, Diabetes Mellitus, GERD/Reflux, Hyperlipidemia, Hypertension, Myocardial Infarction (WA), Thyroid Disorder Additional Past Medical History / Comment(s): Open incision to abdomen.Pt recently admitted to [facility] on 09/16/16 with SBO with surgery/possible septic emboli with cavitary lesions bilateral lungs. Other hx: left renal cell carcinoma status post partial nephrectomy, CVA 4, diabetes mellitus, COPD, hypothyroidism, chronic back pain, urine checked infection with sepsis secondary to ESBL producing E. coli in April 2016 requiring a PICC line insertion for IV antibiotics, coronary artery disease with previous WA, restless leg syndrome, peripheral neuropathy, hypertension, hypothyroidism, hyperlipidemia, GE reflux, depression Last Myocardial Infarction Date:: 2012 History of Any Multi-Drug Resistant Organisms: ESBL, VRE Year Discovered:: 05/07/16 ESBL, 05/15/16 VRE MDRO Source:: URINE E.COLI, EC GALLINARUM Past Surgical History: Appendectomy, Bowel Resection, Section, Heart Catheterization Additional Past Surgical History / Comment(s): 09/23/16 exploratory laparotomy, lysis of adhesions bowel resection d/t obstruction evacuation incarcerated food bezoar/repair incarcerated incisional hernia with abdominal washout. Other sx hx: thyroidectomy(non functioning) heart cath 06-18-12 100% occluded LAD unable to stent, partial nephrectomy for a left kidney renal cell carcinoma, PICC line insertion (since removed), colonoscopy, bilateral cataract removal with lens implants, 2 C-Sections. Past Anesthesia/Blood Transfusion Reactions: No Reported Reaction Past Psychological History: Anxiety, Depression Additional Psychological History / Comment(s): TAKES EFFEXOR FOR DEPRESSION STATED SHE FEELS MAINTAINED ON THAT MEDICATION.DENIES ANY THOUGHTS OF HARMING SELF. Pt lives with her significant other in [facility] and is independant. She is able to drive, but does not own a car. She arranges rides thru [place] or uses a cab. Smoking Status: Former smoker Past Alcohol Use History: None Reported Additional Past Alcohol Use History / Comment(s): STARTED SMOKING AT AGE 10.HAD WORKED UP TO 3 PPD BUT QUIT 09/16/16. Past Drug Use History: Marijuana Additional Drug Use History / Comment(s): OCC USES MARIJUANA-LAST USED September prior to surg. - Past Family History Father Family Medical History: Myocardial Infarction (WA) Additional Family Medical History / Comment(s): from mi at age 48 Mother Family Medical History: Cancer Additional Family Medical History / Comment(s): maeve breasts removed d/t cancer, hysterectomy d/t cancer Medications and Allergies Home Medications Medication Instructions Recorded Confirmed Type Clopidogrel [Plavix] 75 mg PO DAILY 04/28/15 01/07/17 History Levothyroxine Sodium [Synthroid] 200 mcg PO DAILY 04/28/15 01/07/17 History Insulin Glargine,Hum.rec.anlog 25 unit SQ W/BRKFST 07/05/16 01/07/17 History [Lantus Solostar] Aspirin [Adult Low Dose Aspirin EC] 81 mg PO HS 09/04/16 01/07/17 History Budesonide-Formot 160-4.5 Mcg 2 puff INHALATION RT-BID 09/30/16 01/07/17 History [Symbicort 160-4.5 Mcg Inhaler] Albuterol Inhaler [Ventolin Hfa 2 puff INHALATION RT-Q6H PRN 10/21/16 01/07/17 History Inhaler] Insulin Glargine,Hum.rec.anlog 50 unit SQ HS 10/21/16 01/07/17 History [Lantus Solostar] Loratadine [Claritin] 10 mg PO DAILY PRN 10/21/16 01/07/17 History Venlafaxine HCl [Venlafaxine HCl 225 mg PO DAILY 10/21/16 01/07/17 History ER] Atorvastatin [Lipitor] 40 mg PO DAILY 01/07/17 01/07/17 History Baclofen 10 mg PO BID 01/07/17 01/07/17 History Gabapentin [Neurontin] 200 mg PO BID 01/07/17 01/07/17 History Insulin Glulisine [Apidra] 10 unit SQ TID-W/MEALS 01/07/17 01/07/17 History Levothyroxine Sodium [Synthroid] 25 mcg PO DAILY 01/07/17 01/07/17 History Naproxen 500 mg PO BID 01/07/17 01/07/17 History Omeprazole [PriLOSEC] 20 mg PO BID 01/07/17 01/07/17 History cloNIDine HCL [Catapres] 0.1 mg PO HS 01/07/17 01/07/17 History Allergies Allergy/AdvReac Type Severity Reaction Status Date / Time latex Allergy Rash/Hives Verified 01/07/17 08:10 Sulfa (Sulfonamide Allergy Rash/Hives Verified 01/07/17 08:10 Antibiotics) venom-honey bee Allergy Anaphylaxis Verified 01/07/17 08:10 morphine AdvReac Decreased Verified 01/07/17 08:10 Blood Pressure prochlorperazine edisylate AdvReac Vomiting Verified 01/07/17 08:10 [From Compazine] prochlorperazine maleate AdvReac Vomiting Verified 01/07/17 08:10 [From Compazine] Surgical - Exam Vital Signs Temp Pulse Resp BP Pulse Ox 97 F L 92 18 138/83 99 01/06/17 23:22 01/06/17 23:22 01/06/17 23:22 01/06/17 23:22 01/06/17 23:22 - General obese - Eyes normal ocular movement - ENT normal pinna, normal nares, no hearing loss - Neck no masses, trachea midline, no lymphadectomy - Respiratory normal expansion, normal respiratory effort, clear to auscultation - Cardiovascular Rhythm: regular Heart Sounds: normal: S1, S2 - Abdomen Multiple well-healed scars from prior surgery Infraumbilical incision with granulation tissue, no active bleeding, and no purulent drainage Abdomen: soft, bowel sounds Hernia: none - Integumentary Tattoos - Psychiatric oriented to time, oriented to person, oriented to place, speech is normal Results - Labs 01/07/17 00:25 01/07/17 00:25 Abnormal Lab Results - Last 24 Hours (Table) 01/07/17 01/07/17 01/07/17 Range/Units 00:25 00:43 01:25 Sodium 131 L (137-145) mmol/L Chloride 95 L (98-107) mmol/L Carbon Dioxide 21 L (22-30) mmol/L BUN 21 H (7-17) mg/dL Glucose 579 H* (74-99) mg/dL POC Glucose (mg/dL) 513 H (75-99) mg/dL Alkaline Phosphatase 155 H (38-126) U/L Amylase <30 L (30-110) U/L Urine Appearance Cloudy H (Clear) Urine Glucose (UA) 4+ H (Negative) Urine Ketones 2+ H (Negative) Ur Leukocyte Esterase Moderate H (Negative) Urine WBC 56 H (0-5) /hpf Urine WBC Clumps Few H (None) /hpf Urine Bacteria Rare H (None) /hpf Urine Mucus Rare H (None) /hpf 01/07/17 01/07/17 01/07/17 Range/Units 02:15 02:53 07:23 Sodium (137-145) mmol/L Chloride (98-107) mmol/L Carbon Dioxide (22-30) mmol/L BUN (7-17) mg/dL Glucose (74-99) mg/dL POC Glucose (mg/dL) 455 H 395 H 171 H (75-99) mg/dL Alkaline Phosphatase (38-126) U/L Amylase (30-110) U/L Urine Appearance (Clear) Urine Glucose (UA) (Negative) Urine Ketones (Negative) Ur Leukocyte Esterase (Negative) Urine WBC (0-5) /hpf Urine WBC Clumps (None) /hpf Urine Bacteria (None) /hpf Urine Mucus (None) /hpf 01/07/17 Range/Units 12:19 Sodium (137-145) mmol/L Chloride (98-107) mmol/L Carbon Dioxide (22-30) mmol/L BUN (7-17) mg/dL Glucose (74-99) mg/dL POC Glucose (mg/dL) 282 H (75-99) mg/dL Alkaline Phosphatase (38-126) U/L Amylase (30-110) U/L Urine Appearance (Clear) Urine Glucose (UA) (Negative) Urine Ketones (Negative) Ur Leukocyte Esterase (Negative) Urine WBC (0-5) /hpf Urine WBC Clumps (None) /hpf Urine Bacteria (None) /hpf Urine Mucus (None) /hpf Diabetes panel 01/07/17 Range/Units 00:25 Sodium 131 L (137-145) mmol/L Potassium 4.5 (3.5-5.1) mmol/L Chloride 95 L (98-107) mmol/L Carbon Dioxide 21 L (22-30) mmol/L BUN 21 H (7-17) mg/dL Creatinine 0.80 (0.52-1.04) mg/dL Glucose 579 H* (74-99) mg/dL Calcium 9.1 (8.4-10.2) mg/dL AST 22 (14-36) U/L ALT 38 (9-52) U/L Alkaline Phosphatase 155 H (38-126) U/L Total Protein 6.6 (6.3-8.2) g/dL Albumin 4.2 (3.5-5.0) g/dL Calcium panel 01/07/17 Range/Units 00:25 Calcium 9.1 (8.4-10.2) mg/dL Albumin 4.2 (3.5-5.0) g/dL Pituitary panel 01/07/17 Range/Units 00:25 Sodium 131 L (137-145) mmol/L Potassium 4.5 (3.5-5.1) mmol/L Chloride 95 L (98-107) mmol/L Carbon Dioxide 21 L (22-30) mmol/L BUN 21 H (7-17) mg/dL Creatinine 0.80 (0.52-1.04) mg/dL Glucose 579 H* (74-99) mg/dL Calcium 9.1 (8.4-10.2) mg/dL Adrenal panel 01/07/17 Range/Units 00:25 Sodium 131 L (137-145) mmol/L Potassium 4.5 (3.5-5.1) mmol/L Chloride 95 L (98-107) mmol/L Carbon Dioxide 21 L (22-30) mmol/L BUN 21 H (7-17) mg/dL Creatinine 0.80 (0.52-1.04) mg/dL Glucose 579 H* (74-99) mg/dL Calcium 9.1 (8.4-10.2) mg/dL Total Bilirubin 0.4 (0.2-1.3) mg/dL AST 22 (14-36) U/L ALT 38 (9-52) U/L Alkaline Phosphatase 155 H (38-126) U/L Total Protein 6.6 (6.3-8.2) g/dL Albumin 4.2 (3.5-5.0) g/dL - Imaging CT scan - abdomen: report reviewed Assessment and Plan Plan: Impression/plan: 1. Open wound infraumbilical area in recent surgical site patient has been started on vancomycin 2. Hyperglycemia 3. COPD 4. Hyperlipidemia 5. Hypertension 6. Hypothyroidism 7. Reflux disease 8. Prior [place] 9. CVA in the past 10. History of renal cell carcinoma 11. Anxiety/depression Plan: 1. At this time patient does not have an acute wound which would require any I& D would agree with obtaining cultures and IV antibiotics as appropriate. 2. Medical management of above medical conditions
[2017-01-07 17:31] LABS: Glucose,Whole Blood 169 mg/dL (75-99)
[2017-01-07] MEDS: SYMBICORT 160-4.5 MCG INHALER INHALATION SCH (19:20)
[2017-01-07] MEDS: GABAPENTIN 100 MG CAP PO SCH (19:57)
[2017-01-07] MEDS: BACLOFEN 10 MG TAB PO SCH (19:57)
[2017-01-07] MEDS ORDERED: INSULIN GLARGINE 100 UNIT/ML 10 ML VIAL SQ SCH (21:00)
[2017-01-07] MEDS ORDERED: NON-FORMULARY DRUG (Omeprazole 20 MG) PO SCH (21:00)
[2017-01-07] MEDS ORDERED: ASPIRIN 81 MG CHEW PO SCH (21:00)
[2017-01-07 21:12] LABS: Glucose,Whole Blood 171 mg/dL (75-99)
[2017-01-07] MEDS: VANCOMYCIN 1,000 MG in SODIUM CHLORIDE 0.9% 250 ML IVPB SCH (23:57)
[2017-01-08] MEDS: HYDROmorphone 1 MG/ML 1 ML SYRINGE IV PRN ×2 (03:11→09:58)
[2017-01-08] MEDS ORDERED: LEVOTHYROXINE 25 MCG TAB PO SCH (06:30)
[2017-01-08] MEDS: SODIUM CHLORIDE 0.9% 1,000 ML IV SCH (06:32)
[2017-01-08] MEDS: LEVOTHYROXINE 100 MCG TAB PO SCH (06:32)
[2017-01-08] MEDS ORDERED: INSULIN GLARGINE 100 UNIT/ML 10 ML VIAL SQ SCH (07:30)
[2017-01-08 07:39] LABS: Glucose,Whole Blood 390 mg/dL (75-99)
[2017-01-08] MEDS: INSULIN LISPRO (humaLOG) 300 UNIT/3 ML VIAL SQ SCH ×4 (07:51→13:35)
[2017-01-08] MEDS: BACLOFEN 10 MG TAB PO SCH (07:53)
[2017-01-08] MEDS: GABAPENTIN 100 MG CAP PO SCH (07:55)
[2017-01-08] MEDS: ESOMEPRAZOLE 20 MG in SODIUM CHLORIDE 0.9% 50 ML IVPB SCH (08:06)
[2017-01-08 08:11] VITALS: BP 145/88; PULSE 83; TEMP 98.4
[2017-01-08] MEDS: SYMBICORT 160-4.5 MCG INHALER INHALATION SCH (08:42)
[2017-01-08] MEDS ORDERED: ATORVASTATIN 40 MG TAB PO SCH (09:00)
[2017-01-08] MEDS ORDERED: CLOPIDOGREL 75 MG TAB PO SCH (09:00)
[2017-01-08] MEDS ORDERED: VENLAFAXINE HCL ER 75 MG CAP PO SCH (09:00)
--- NOTE | 2017-01-08 10:21 | P.PN ---
Subjective Patient is a 56-year-old white female who is status post an September surgical lysis of adhesions, hernia repair. Patient subsequently developed a wound infection and had a wound VAC placed and was placed on IV antibiotics until November 25. Patient returns at this time with an opening of her infraumbilical wound. The area appears to be granulating well and is clean. There is a question of some minimal discharge from the base of the wound. The patient herself denies any discharge from the wound. Patient has been started on antibiotics as per medicine. Wound culture from 01/07/17 showed few gram-positive cocci culture in progress Blood culture 01/08/2017 after 24 hours Objective - Vital Signs Vital signs: Vital Signs Temp 98.4 F 01/08/17 07:00 Pulse 83 01/08/17 07:00 Resp 16 01/08/17 07:00 BP 145/88 01/08/17 07:00 Pulse Ox 97 01/08/17 07:00 Intake & Output 01/07/17 01/08/17 01/08/17 18:59 06:59 18:59 Intake Total 760 Balance 760 Intake: Oral 760 Other: Voiding Method Toilet Toilet # Voids 1 1 - Constitutional General appearance: Present: average body habitus - Respiratory Details: Decreased breath sounds at the bases - Cardiovascular Rhythm: regular Heart sounds: normal: S1, S2 - Gastrointestinal Gastrointestinal Comment(s): Infraumbilical incision was granulation tissue, no definite drainage or evidence of infection General gastrointestinal: Present: normal bowel sounds, soft - Integumentary Integumentary Comment(s): Infraumbilical incision with some granulation tissue no definite drainage from the site - Psychiatric Psychiatric: Present: A&O x's 3, appropriate affect, intact judgment & insight - Labs CBC & Chem 7: 01/07/17 00:25 01/07/17 00:25 Labs: Abnormal Lab Results - Last 24 Hours (Table) 01/07/17 01/07/17 01/07/17 Range/Units 12:19 17:11 21:10 POC Glucose (mg/dL) 282 H 169 H 171 H (75-99) mg/dL 01/08/17 Range/Units 07:34 POC Glucose (mg/dL) 390 H (75-99) mg/dL Microbiology - Last 24 Hours (Table) 01/07/17 00:25 Blood Culture - Preliminary Blood No Growth after 24 hours 01/07/17 00:25 Gram Stain - Preliminary Abdomen Wound Culture - Preliminary Assessment and Plan Plan: Impression/plan: 1. Open wound infraumbilical area in recent surgical site patient has been started on vancomycin 2. Hyperglycemia 3. COPD 4. Hyperlipidemia 5. Hypertension 6. Hypothyroidism 7. Reflux disease 8. Prior IN 9. CVA in the past 10. History of renal cell carcinoma 11. Anxiety/depression Plan: 1. At this time patient does not have an acute wound which would require any I& D would agree with obtaining cultures and IV antibiotics as appropriate. 2. Medical management of above medical conditions 3. We'll follow closely to assure that there is not a fistula at the infraumbilical site, however at this time there is no drainage to indicate this , additionally cultures only showed gram-positive cocci awaiting final results
[2017-01-08 10:34] LABS: Basophils % (A) 1 %; CH 28.2; CHCM 32.9; Eosinophils # (A) 0.2 k/uL (0-0.7); Eosinophils % (A) 6 %; HCT 34.8 % (34.0-46.0); HDW 3.11; HGB 11.5 gm/dL (11.4-16.0); Luc # (Auto) 0.08; Luc % (Auto) 2; Lymphocytes # (A) 0.6 k/uL (1.0-4.8); Lymphocytes % (A) 19 %; MCH 28.4 pg (25.0-35.0); Mean Platelet Volume 7.9; Monocytes # (A) 0.1 k/uL (0-1.0); Monocytes % (A) 4 %; Neutrophils # (A) 2.3 k/uL (1.3-7.7); Neutrophils % (A) 69 %; RBC 4.04 m/uL (3.80-5.40); RDW 14.5 % (11.5-15.5); WBC 3.3 k/uL (3.8-10.6)
[2017-01-08 10:57] LABS: ALT 54 U/L (9-52); AST 80 U/L (14-36); Alkaline Phosphatase 140 U/L (38-126); Anion Gap 8 mmol/L; Blood Urea Nitrogen 9 mg/dL (7-17); Calcium 8.7 mg/dL (8.4-10.2); Carbon Dioxide 24 mmol/L (22-30); Chloride 105 mmol/L (98-107); Glucose 309 mg/dL (74-99); Non-African American GFR(MDRD) >60 (>60 ml/min/1.73 sqM); Potassium 4.5 mmol/L (3.5-5.1); Sodium 137 mmol/L (137-145); Total Bilirubin 0.1 mg/dL (0.2-1.3); Total Protein 5.6 g/dL (6.3-8.2)
[2017-01-08 12:07] LABS: Glucose,Whole Blood 189 mg/dL (75-99)
[2017-01-08] MEDS: VANCOMYCIN 1,000 MG in SODIUM CHLORIDE 0.9% 250 ML IVPB SCH (13:34)
--- NOTE | 2017-01-08 14:21 | P.DS ---
Providers Date of admission: 01/07/17 03:10 Attending physician: Danielle Hill Consults: 01/07/17 03:02 Consult Physician Stat Consulting Provider: Piedad Nichols Consult Reason/Comments: Abdominal Pain, Abdominal Wound Do you want consulting provider notified?: Yes 01/08/17 10:50 Consult Physician Urgent Consulting Provider: Gage Mills Reason/Comments: Antibiotic recommendation Do you want consulting provider notified?: Yes Primary care physician: Alexandre Dupont [facility] Course: 56-year-old female admitted for surgical site area infection in the medical area. Patient cultures are presently showing gram-positive cocci. Patient will not need any surgical drainage at this point of time patient can be managed as an outpatient. I did discuss with Dr. Mills on on phone and patient will follow with Dr. Mills as an outpatient. Plan was made to discharge patient on Augmentin for about a week. Patient blood sugars were not under control. But had blood sugars and prevent uncontrolled on home regimen. Excessive counseling regarding compliance with diuretic medications and diabetic diet was provided and patient will be discharged today. Patient did receive diabetic education here. PHYSICAL EXAMINATION: GENERAL: The patient is alert and oriented x3, not in any acute distress. Well developed, well nourished. HEENT: Pupils are round and equally reacting to light. EOMI. No scleral icterus. No conjunctival pallor. Normocephalic, atraumatic. No pharyngeal erythema. No thyromegaly. CARDIOVASCULAR: S1 and S2 present. No murmurs, rubs, or gallops. PULMONARY: Chest is clear to auscultation, no wheezing or crackles. ABDOMEN: Soft, nontender, nondistended, normoactive bowel sounds. No palpable organomegaly. MUSCULOSKELETAL: No joint swelling or deformity. EXTREMITIES: No cyanosis, clubbing, or pedal edema. NEUROLOGICAL: Gross neurological examination did not reveal any focal deficits. SKIN: No rashes. #1 wound infection: umblical area. Management as mentioned above #2 severe hyperglycemia: Uncontrolled blood sugars and type 2 diabetes mellitus. #3 COPD without any acute exacerbatio. #4 hyperlipidemia #5 hypertension #6 hypothyroidism: Patient is on very high-dose of levothyroxine which will be continued and TSH will be obtained. #7 gastroesophageal reflux disease #8 cerebrovascular accident in the past #9 coronary artery disease #10 pseudohyponatremia secondary to hyperglycemia which resolved at this point of time. Patient Condition at Discharge: Stable Plan - Discharge Summary New Discharge Prescriptions: Discontinued cloNIDine HCL [Catapres] 0.1 mg PO HS No Action Levothyroxine Sodium [Synthroid] 200 mcg PO DAILY Clopidogrel [Plavix] 75 mg PO DAILY Insulin Glargine,Hum.rec.anlog [Lantus Solostar] 25 unit SQ W/BRKFST Aspirin [Adult Low Dose Aspirin EC] 81 mg PO HS Budesonide-Formot 160-4.5 Mcg [Symbicort 160-4.5 Mcg Inhaler] 2 puff INHALATION RT-BID Venlafaxine HCl [Venlafaxine HCl ER] 225 mg PO DAILY Loratadine [Claritin] 10 mg PO DAILY PRN PRN Reason: Allergy Symptoms Insulin Glargine,Hum.rec.anlog [Lantus Solostar] 50 unit SQ HS Albuterol Inhaler [Ventolin Hfa Inhaler] 2 puff INHALATION RT-Q6H PRN PRN Reason: Shortness Of Breath Naproxen 500 mg PO BID Atorvastatin [Lipitor] 40 mg PO DAILY Baclofen 10 mg PO BID Omeprazole [PriLOSEC] 20 mg PO BID Levothyroxine Sodium [Synthroid] 25 mcg PO DAILY Insulin Glulisine [Apidra] 10 unit SQ TID-W/MEALS Gabapentin [Neurontin] 200 mg PO BID Discharge Medication List Clopidogrel [Plavix] 75 mg PO DAILY 04/28/15 [History] Levothyroxine Sodium [Synthroid] 200 mcg PO DAILY 04/28/15 [History] Insulin Glargine,Hum.rec.anlog [Lantus Solostar] 25 unit SQ W/BRKFST 07/05/16 [ History] Aspirin [Adult Low Dose Aspirin EC] 81 mg PO HS 09/04/16 [History] Budesonide-Formot 160-4.5 Mcg [Symbicort 160-4.5 Mcg Inhaler] 2 puff INHALATION RT-BID 09/30/16 [History] Albuterol Inhaler [Ventolin Hfa Inhaler] 2 puff INHALATION RT-Q6H PRN 10/21/16 [ History] Insulin Glargine,Hum.rec.anlog [Lantus Solostar] 50 unit SQ HS 10/21/16 [History ] Loratadine [Claritin] 10 mg PO DAILY PRN 10/21/16 [History] Venlafaxine HCl [Venlafaxine HCl ER] 225 mg PO DAILY 10/21/16 [History] Atorvastatin [Lipitor] 40 mg PO DAILY 01/07/17 [History] Baclofen 10 mg PO BID 01/07/17 [History] Gabapentin [Neurontin] 200 mg PO BID 01/07/17 [History] Insulin Glulisine [Apidra] 10 unit SQ TID-W/MEALS 01/07/17 [History] Levothyroxine Sodium [Synthroid] 25 mcg PO DAILY 01/07/17 [History] Naproxen 500 mg PO BID 01/07/17 [History] Omeprazole [PriLOSEC] 20 mg PO BID 01/07/17 [History] Amoxic-Pot Clav 875-125Mg [Augmentin 875-125] 1 tab PO Q12HR #14 tablet [Rx] Follow up Appointment(s)/Referral(s): Kiah Schroeder MD [Primary Care Provider] - 3 Days [facility], [NON-STAFF] - Gage Mills MD [STAFF PHYSICIAN] - 1 Week Discharge Disposition: HOME SELF-CARE
[2017-01-09] MEDS ORDERED: PANTOPRAZOLE 40 MG TABLET PO SCH (07:30)
== END 2017-01-08 16:35 | disposition home health service (06) | DRG 863 ==
LOC: EC 23:18 → 4MS4W 01-07 03:10
PROVIDERS: ADMIT Hospitalist; ATTEND Hospitalist
DX: T81.4XXA Infection following a procedure, initial encounter (principal); E11.40 Type 2 diabetes mellitus with diabetic neuropathy, unspecified; I25.82 Chronic total occlusion of coronary artery; E11.65 Type 2 diabetes mellitus with hyperglycemia; I10 Essential (primary) hypertension; J44.9 Chronic obstructive pulmonary disease, unspecified; E78.5 Hyperlipidemia, unspecified; E03.9 Hypothyroidism, unspecified; K21.9 Gastro-esophageal reflux disease without esophagitis; Z86.73 Personal history of transient ischemic attack (TIA), and cerebral infarction without residual deficits; I25.10 Atherosclerotic heart disease of native coronary artery without angina pectoris; F41.8 Other specified anxiety disorders; I25.2 Old myocardial infarction; E27.9 Disorder of adrenal gland, unspecified; G25.81 Restless legs syndrome; Z79.82 Long term (current) use of aspirin; Z79.51 Long term (current) use of inhaled steroids; Z79.02 Long term (current) use of antithrombotics/antiplatelets; Z79.1 Long term (current) use of non-steroidal anti-inflammatories (NSAID); Z79.4 Long term (current) use of insulin; Z79.899 Other long term (current) drug therapy; Z87.891 Personal history of nicotine dependence; Z87.440 Personal history of urinary (tract) infections; Z90.49 Acquired absence of other specified parts of digestive tract; Z85.528 Personal history of other malignant neoplasm of kidney; Z90.5 Acquired absence of kidney; Z98.42 Cataract extraction status, left eye; Z98.41 Cataract extraction status, right eye; Z96.1 Presence of intraocular lens; F12.90 Cannabis use, unspecified, uncomplicated
CPT/HCPCS: 36415; 74177; 80053; 81001; 82009; 82150; 83036; 83690; 85025; 87040; 87070; 87205; 94640; 96361; 96374; 96375; 99284

== ENCOUNTER → 2017-02-20 | Outpatient (CLI) | payer OTHER | END | disposition home or self-care (01) | LOC: LABWHC1 13:50 | PROVIDERS: ATTEND Internal Medicine | DX: R10.84 Generalized abdominal pain (principal); R19.7 Diarrhea, unspecified; Z79.2 Long term (current) use of antibiotics | CPT/HCPCS: 87328; 87329; 89055 ==

== ENCOUNTER → 2017-03-14 | Outpatient (CLI) | payer OTHER ==
--- NOTE | 2017-03-17 11:37 | MM ---
Reason for exam: screening (asymptomatic). Last mammogram was performed 1 year and 10 months ago. History: Patient history of other cancer. Family history of breast cancer in mother, breast cancer in maternal grandmother, breast cancer in maternal aunt, and breast cancer in maternal cousin. Physical Findings: A clinical breast exam by your physician is recommended on an annual basis and results should be correlated with mammographic findings. MG Screening Mammo w CAD Bilateral CC and MLO view(s) were taken. Prior study comparison: May 10, 2015, mammogram, performed at [facility]. April 07, 2014, mammogram, performed at [facility]. There are scattered fibroglandular densities. Finding: There are few typically benign round calcifications in the right breast. There is no discrete abnormality. ASSESSMENT: Negative, BI-RAD 1 RECOMMENDATION: Routine screening mammogram of both breasts in 1 year.
== END | disposition home or self-care (01) ==
LOC: RADMAMWWP 14:29
PROVIDERS: ATTEND Internal Medicine
DX: Z12.31 Encounter for screening mammogram for malignant neoplasm of breast (principal)

== ENCOUNTER 2017-05-05 14:57 | Emergency (ER) | payer OTHER ==
[2017-05-05] MEDS ORDERED: ONDANSETRON 4 MG/2 ML VIAL IVP STA (16:36)
[2017-05-05] MEDS ORDERED: FAMOTIDINE 20 MG/2 ML VIAL IV STA (16:36)
[2017-05-05] MEDS ORDERED: SODIUM CHLORIDE 0.9% 500 ML IV STA ×2 (16:38→17:13)
--- NOTE | 2017-05-05 16:38 | ED ---
General Adult HPI - General Chief complaint: Abdominal Pain Stated complaint: nausea/sore throat Time Seen by Provider: 05/05/17 16:30 Source: patient, RN notes reviewed, old records reviewed Mode of arrival: ambulatory Limitations: no limitations - History of Present Illness Initial comments: Patient's a 57-year-old female who presents emergency room today with chief complaint of sore throat, with nausea and some soft stool over the last 3 days. She states the stool cultures been green. No diarrhea. Patient doesn't show cramping type abdominal pain off-and-on. No abdominal pain at this time. Doesn 't that she's felt nauseated but no vomiting. Patient also admits to a sore throat over the last 2 days. States it hurts when she swallows. She denies any other complaints or associated symptoms. Patient denies any recent fever, chills, shortness of breath, chest pain, back pain, numbness or tingling, dysuria or hematuria, constipation, headaches or visual changes, or any other complaints. - Related Data Home Medications Medication Instructions Recorded Confirmed Levothyroxine Sodium [Synthroid] 200 mcg PO DAILY 04/28/15 05/05/17 Insulin Glargine,Hum.rec.anlog 25 unit SQ W/BRKFST 07/05/16 05/05/17 [Lantus Solostar] Aspirin [Adult Low Dose Aspirin EC] 81 mg PO HS 09/04/16 05/05/17 Budesonide-Formot 160-4.5 Mcg 2 puff INHALATION RT-BID 09/30/16 05/05/17 [Symbicort 160-4.5 Mcg Inhaler] Albuterol Inhaler [Ventolin Hfa 2 puff INHALATION RT-Q6H PRN 10/21/16 05/05/17 Inhaler] Insulin Glargine,Hum.rec.anlog 55 unit SQ HS 10/21/16 05/05/17 [Lantus Solostar] Loratadine [Claritin] 10 mg PO DAILY PRN 10/21/16 05/05/17 Venlafaxine HCl [Venlafaxine HCl 225 mg PO DAILY 10/21/16 05/05/17 ER] Naproxen 500 mg PO BID 01/07/17 05/05/17 Omeprazole [PriLOSEC] 20 mg PO BID 01/07/17 05/05/17 Butalbital/Aspirin/Caffeine 1 tab PO BID PRN 05/05/17 05/05/17 [Lckgix-Whwvxzr-Xgwckrsx 50-325-40 mg] Cariprazine HCl [Vraylar] 1.5 mg PO DAILY 05/05/17 05/05/17 Cyclobenzaprine [Flexeril] 10 mg PO BID PRN 05/05/17 05/05/17 INSULIN LISPRO (HumaLOG) [HumaLOG] 10 unit SQ AC-TID 05/05/17 05/05/17 Nicotine 21Mg/24Hr Patch [Habitrol 1 patch TRANSDERM DAILY 05/05/17 05/05/17 21Mg/24Hr Patch] Previous Rx's Medication Instructions Recorded Nitrofurantoin Monohyd/M-Cryst 100 mg PO Q12HR #14 cap 05/05/17 [Macrobid] Ondansetron Odt [Zofran ODT] 4 mg PO Q8HR PRN #20 tab 05/05/17 Allergies Allergy/AdvReac Type Severity Reaction Status Date / Time latex Allergy Rash/Hives Verified 05/05/17 16:29 Sulfa (Sulfonamide Allergy Rash/Hives Verified 05/05/17 16:29 Antibiotics) venom-honey bee Allergy Anaphylaxis Verified 05/05/17 16:29 morphine AdvReac Decreased Verified 05/05/17 16:29 Blood Pressure prochlorperazine edisylate AdvReac Vomiting Verified 05/05/17 16:29 [From Compazine] prochlorperazine maleate AdvReac Vomiting Verified 05/05/17 16:29 [From Compazine] Review of Systems ROS Statement: Those systems with pertinent positive or pertinent negative responses have been documented in the HPI. ROS Other: All systems not noted in ROS Statement are negative. Past Medical History Past Medical History: COPD, CVA/TIA, Diabetes Mellitus, GERD/Reflux, Hyperlipidemia, Hypertension, Myocardial Infarction ([place]), Thyroid Disorder Additional Past Medical History / Comment(s): Open incision to abdomen.Pt recently admitted to [facility] on 09/16/16 with SBO with surgery/possible septic emboli with cavitary lesions bilateral lungs. Other hx: left renal cell carcinoma status post partial nephrectomy, CVA 4, diabetes mellitus, COPD, hypothyroidism, chronic back pain, urine checked infection with sepsis secondary to ESBL producing E. coli in April 2016 requiring a PICC line insertion for IV antibiotics, coronary artery disease with previous [place], restless leg syndrome, peripheral neuropathy, hypertension, hypothyroidism, hyperlipidemia, GE reflux, depression Last Myocardial Infarction Date:: 2012 History of Any Multi-Drug Resistant Organisms: ESBL, VRE Date of last positivie culture/infection: 05/07/16 ESBL, 05/15/16 VRE MDRO Source:: URINE E.COLI, EC GALLINARUM Past Surgical History: Appendectomy, Bowel Resection, Section, Heart Catheterization Additional Past Surgical History / Comment(s): 09/23/16 exploratory laparotomy, lysis of adhesions bowel resection d/t obstruction evacuation incarcerated food bezoar/repair incarcerated incisional hernia with abdominal washout. Other sx hx: thyroidectomy(non functioning) heart cath 06-18-12 100% occluded LAD unable to stent, partial nephrectomy for a left kidney renal cell carcinoma, PICC line insertion (since removed), colonoscopy, bilateral cataract removal with lens implants, 2 C-Sections. Past Anesthesia/Blood Transfusion Reactions: No Reported Reaction Past Psychological History: Anxiety, Depression Smoking Status: Current every day smoker Past Alcohol Use History: None Reported Past Drug Use History: Marijuana - Past Family History Father Family Medical History: Myocardial Infarction ([place]) Additional Family Medical History / Comment(s): from mi at age 48 Mother Family Medical History: Cancer Additional Family Medical History / Comment(s): maeve breasts removed d/t cancer, hysterectomy d/t cancer General Exam - General Exam Comments Initial Comments: General: The patient is awake and alert, in no distress, and does not appear acutely ill. Eye: Pupils are equal, round and reactive to light, extra-ocular movements are intact. No nystagmus. There is normal conjunctiva bilaterally. No signs of icterus. Ears, nose, mouth and throat: There are moist mucous membranes and no oral lesions. Neck: The neck is supple, there is no tenderness or JVD. Cardiovascular: There is a regular rate and rhythm. No murmur, rub or gallop is appreciated. Respiratory: Lungs are clear to auscultation, respirations are non-labored, breath sounds are equal. No wheezes, stridor, rales, or rhonchi. Gastrointestinal: Soft, non-distended, non-tender abdomen without masses or organomegaly noted. There is no rebound or guarding present. No CVA tenderness. Bowel sounds are unremarkable. Musculoskeletal: Normal ROM, no tenderness. Strength 5/5. Sensation intact. Pulses equal bilaterally 2+. Neurological: A&O x 3. CN II-XII intact, There are no obvious motor or sensory deficits. Coordination appears grossly intact. Speech is normal. Skin: Skin is warm and dry and no rashes or lesions are noted. Psychiatric: Cooperative, appropriate mood & affect, normal judgment. Limitations: no limitations Course Vital Signs 05/05/17 05/05/17 15:09 17:43 Temperature 98.8 F Pulse Rate 112 H 84 Respiratory 20 16 Rate Blood Pressure 104/66 105/60 O2 Sat by Pulse 98 97 Oximetry Medical Decision Making - Medical Decision Making Patient reexamined at this time shows no signs of distress. Her repeat blood sugar is in the 330s. Patient says she would like to just take her insulin when she gets home. Her urinalysis does show evidence for an infection. Will be started on antibiotic. Does admit to a sore throat. Strep test is negative.. Patient most likely viral illness. Will be treated with nausea medication for symptoms. Abdomen soft nontender will be discharged home and advised follow-up family doctor next 2 days return if any symptoms increase worsen appropriate concerns. Patient states understanding and is in agreement with the plan. - Lab Data Result diagrams: 05/05/17 16:53 05/05/17 16:53 Lab Results 05/05/17 05/05/17 05/05/17 Range/Units 16:53 16:53 16:53 WBC 5.7 (3.8-10.6) k/uL RBC 4.95 (3.80-5.40) m/uL Hgb 14.2 (11.4-16.0) gm/dL Hct 44.1 (34.0-46.0) % MCV 89.1 (80.0-100.0) fL MCH 28.7 (25.0-35.0) pg MCHC 32.2 (31.0-37.0) g/dL RDW 15.6 H (11.5-15.5) % Plt Count 211 (150-450) k/uL Neutrophils % 73 % Lymphocytes % 19 % Monocytes % 6 % Eosinophils % 1 % Basophils % 0 % Neutrophils # 4.1 (1.3-7.7) k/uL Lymphocytes # 1.1 (1.0-4.8) k/uL Monocytes # 0.3 (0-1.0) k/uL Eosinophils # 0.1 (0-0.7) k/uL Basophils # 0.0 (0-0.2) k/uL Sodium 135 L (137-145) mmol/L Potassium 3.9 (3.5-5.1) mmol/L Chloride 98 (98-107) mmol/L Carbon Dioxide 24 (22-30) mmol/L Anion Gap 13 mmol/L BUN 9 (7-17) mg/dL Creatinine 0.61 (0.52-1.04) mg/dL Est GFR (MDRD) Af Amer >60 (>60 ml/min/1.73 sqM) Est GFR (MDRD) Non-Af >60 (>60 ml/min/1.73 sqM) Glucose 430 H (74-99) mg/dL POC Glucose (mg/dL) (75-99) mg/dL POC Glu Soil [employer] Teacher ID Calcium 9.7 (8.4-10.2) mg/dL Total Bilirubin 0.3 (0.2-1.3) mg/dL AST 21 (14-36) U/L ALT 35 (9-52) U/L Alkaline Phosphatase 176 H (38-126) U/L Total Protein 7.0 (6.3-8.2) g/dL Albumin 4.1 (3.5-5.0) g/dL Lipase 18 L (23-300) U/L Urine Color Urine Appearance (Clear) Urine pH (5.0-8.0) Ur Specific [place] (1.001-1.035) Urine Protein (Negative) Urine Glucose (UA) (Negative) Urine Ketones (Negative) Urine Blood (Negative) Urine Nitrite (Negative) Urine Bilirubin (Negative) Urine Urobilinogen (<2.0) mg/dL Ur Leukocyte Esterase (Negative) Urine RBC (0-5) /hpf Urine WBC (0-5) /hpf Urine WBC Clumps (None) /hpf Ur Squamous Epith Cells (0-4) /hpf Urine Bacteria (None) /hpf Urine Yeast (Budding) (None) /hpf Group A Strep Rapid Negative (Negative) 05/05/17 05/05/17 Range/Units 16:53 17:57 WBC (3.8-10.6) k/uL RBC (3.80-5.40) m/uL Hgb (11.4-16.0) gm/dL Hct (34.0-46.0) % MCV (80.0-100.0) fL MCH (25.0-35.0) pg MCHC (31.0-37.0) g/dL RDW (11.5-15.5) % Plt Count (150-450) k/uL Neutrophils % % Lymphocytes % % Monocytes % % Eosinophils % % Basophils % % Neutrophils # (1.3-7.7) k/uL Lymphocytes # (1.0-4.8) k/uL Monocytes # (0-1.0) k/uL Eosinophils # (0-0.7) k/uL Basophils # (0-0.2) k/uL Sodium (137-145) mmol/L Potassium (3.5-5.1) mmol/L Chloride (98-107) mmol/L Carbon Dioxide (22-30) mmol/L Anion Gap mmol/L BUN (7-17) mg/dL Creatinine (0.52-1.04) mg/dL Est GFR (MDRD) Af Amer (>60 ml/min/1.73 sqM) Est GFR (MDRD) Non-Af (>60 ml/min/1.73 sqM) Glucose (74-99) mg/dL POC Glucose (mg/dL) 332 H (75-99) mg/dL POC Glu Soil [employer] Teacher ID Thor Rodriguez Calcium (8.4-10.2) mg/dL Total Bilirubin (0.2-1.3) mg/dL AST (14-36) U/L ALT (9-52) U/L Alkaline Phosphatase (38-126) U/L Total Protein (6.3-8.2) g/dL Albumin (3.5-5.0) g/dL Lipase (23-300) U/L Urine Color Light Yellow Urine Appearance Clear (Clear) Urine pH 5.5 (5.0-8.0) Ur Specific [place] 1.027 (1.001-1.035) Urine Protein Negative (Negative) Urine Glucose (UA) 4+ H (Negative) Urine Ketones 2+ H (Negative) Urine Blood Negative (Negative) Urine Nitrite Negative (Negative) Urine Bilirubin Negative (Negative) Urine Urobilinogen <2.0 (<2.0) mg/dL Ur Leukocyte Esterase Trace H (Negative) Urine RBC 1 (0-5) /hpf Urine WBC 24 H (0-5) /hpf Urine WBC Clumps Few H (None) /hpf Ur Squamous Epith Cells 1 (0-4) /hpf Urine Bacteria Moderate H (None) /hpf Urine Yeast (Budding) Rare H (None) /hpf Group A Strep Rapid (Negative) Disposition Clinical Impression: UTI (urinary tract infection), Nausea & vomiting, Acute pharyngitis Disposition: HOME SELF-CARE Condition: Good Instructions: Pharyngitis (ED) Additional Instructions: Please use medication as discussed. Please follow-up with family doctor in the next 2 days of symptoms have not improved. Please return to emergency room if the symptoms increase or worsen or for any other concerns. Prescriptions: Nitrofurantoin Monohyd/M-Cryst [Macrobid] 100 mg PO Q12HR #14 cap Ondansetron Odt [Zofran ODT] 4 mg PO Q8HR PRN #20 tab PRN Reason: Nausea Referrals: Kiah Schroeder MD [Primary Care Provider] - 1-2 days Time of Disposition: 18:01
[2017-05-05 17:06] LABS: Basophils % (A) 0 %; CH 29.1; CHCM 32.9; Eosinophils # (A) 0.1 k/uL (0-0.7); Eosinophils % (A) 1 %; HCT 44.1 % (34.0-46.0); HDW 2.77; HGB 14.2 gm/dL (11.4-16.0); Luc # (Auto) 0.05; Luc % (Auto) 1; Lymphocytes # (A) 1.1 k/uL (1.0-4.8); Lymphocytes % (A) 19 %; MCH 28.7 pg (25.0-35.0); MCHC 32.2 g/dL (31.0-37.0); MCV 89.1 fL (80.0-100.0); Mean Platelet Volume 8.1; Monocytes # (A) 0.3 k/uL (0-1.0); Monocytes % (A) 6 %; Neutrophils # (A) 4.1 k/uL (1.3-7.7); Neutrophils % (A) 73 %; RBC 4.95 m/uL (3.80-5.40); RDW 15.6 % (11.5-15.5); WBC 5.7 k/uL (3.8-10.6)
[2017-05-05 17:10] LABS: Appearance,Urine Clear (Clear); Bacteria,Urine Moderate /hpf; Bilirubin,Urine Negative (Negative); Glucose,Urine (UA) 4+ (Negative); Leukocyte Esterase,Urine Trace (Negative); Nitrite,Urine Negative (Negative); PH, Urine 5.5 (5.0-8.0); Particle Count 885; Protein,Urine Negative (Negative); RBC,Urine 1 /hpf (0-5); Specific Gravity,Urine 1.027 (1.001-1.035); Squamous Epithelial Cell,Urine 1 /hpf (0-4); UA Billing (MACRO vs. MICRO) MICRO; Urobilinogen,Urine <2.0 mg/dL (<2.0); WBC,Urine 24 /hpf (0-5)
[2017-05-05 17:11] LABS: Ketones,Urine 2+ (Negative)
[2017-05-05 17:29] LABS: ALT 35 U/L (9-52); AST 21 U/L (14-36); Alkaline Phosphatase 176 U/L (38-126); Anion Gap 13 mmol/L; Blood Urea Nitrogen 9 mg/dL (7-17); Calcium 9.7 mg/dL (8.4-10.2); Carbon Dioxide 24 mmol/L (22-30); Chloride 98 mmol/L (98-107); Glucose 430 mg/dL (74-99); Non-African American GFR(MDRD) >60 (>60 ml/min/1.73 sqM); Potassium 3.9 mmol/L (3.5-5.1); Sodium 135 mmol/L (137-145); Total Bilirubin 0.3 mg/dL (0.2-1.3)
[2017-05-05 17:44] VITALS: BP 105/60; PULSE 84; RESP 16
--- NOTE | 2017-05-05 17:51 | XR ---
EXAMINATION TYPE: XR KUB DATE OF EXAM: 05/05/2017 COMPARISON: 09/30/2016 HISTORY: Abdominal pain TECHNIQUE: 2 views FINDINGS: There is no sign of intestinal obstruction or pneumoperitoneum. Fecal pattern is normal. Th ere is a calcified granuloma in the left lower lobe. There are no pathologic calcifications over the kidneys. IMPRESSION: Nonacute abdomen.
[2017-05-05 17:59] LABS: Glucose,Whole Blood 332 mg/dL (75-99)
[2017-05-05 18:32] VITALS: TEMP 97.7
== END 2017-05-05 18:30 | disposition home or self-care (01) ==
LOC: EC 14:57
DX: N39.0 Urinary tract infection, site not specified (principal); R11.2 Nausea with vomiting, unspecified; J02.9 Acute pharyngitis, unspecified; J44.9 Chronic obstructive pulmonary disease, unspecified; E11.42 Type 2 diabetes mellitus with diabetic polyneuropathy; K21.9 Gastro-esophageal reflux disease without esophagitis; E03.9 Hypothyroidism, unspecified; G89.29 Other chronic pain; F32.9 Major depressive disorder, single episode, unspecified; F41.9 Anxiety disorder, unspecified; I25.2 Old myocardial infarction; F17.200 Nicotine dependence, unspecified, uncomplicated; Z79.1 Long term (current) use of non-steroidal anti-inflammatories (NSAID); Z79.4 Long term (current) use of insulin; Z79.51 Long term (current) use of inhaled steroids; Z79.82 Long term (current) use of aspirin; Z79.899 Other long term (current) drug therapy; Z88.2 Allergy status to sulfonamides; Z88.5 Allergy status to narcotic agent; Z88.8 Allergy status to other drugs, medicaments and biological substances; Z91.030 Bee allergy status; Z91.040 Latex allergy status; Z85.528 Personal history of other malignant neoplasm of kidney; Z90.5 Acquired absence of kidney; Z90.49 Acquired absence of other specified parts of digestive tract
CPT/HCPCS: 36415; 80053; 83690; 85025; 81001; 87081; 87430; 74000; 99284; 96374; 96375; 96361; J2405

== ENCOUNTER 2017-07-31 15:31 | Emergency (ER) | payer OTHER ==
[2017-07-31] MEDS ORDERED: SODIUM CHLORIDE 0.9% 1,000 ML IV STA (16:13)
[2017-07-31] MEDS ORDERED: ONDANSETRON 4 MG/2 ML VIAL IVP STA (16:13)
--- NOTE | 2017-07-31 16:15 | ED ---
General Adult HPI - General Chief complaint: Recheck/Abnormal Lab/Rx Stated complaint: Dizzy/Sugar @ 810 Time Seen by Provider: 07/31/17 16:06 Source: patient, RN notes reviewed Mode of arrival: wheelchair - History of Present Illness Initial comments: Patient's a 57-year-old female significant past medical history for diabetes, who presents emergency room today with chief complaint of elevated blood sugar. She states that she was called by the doctor's office today and told that her blood sugar was elevated on the labs that she had obtained recently. She does admit that she's had increased urinary frequency and increased thirst. She does admit to feeling nauseated. She denies any other complaints or symptoms. Patient denies any recent fever, chills, shortness of breath, chest pain, back pain, abdominal pain, vomiting, numbness or tingling, dysuria or hematuria, constipation or diarrhea, headaches or visual changes, or any other complaints. - Related Data Home Medications Medication Instructions Recorded Confirmed Levothyroxine Sodium [Synthroid] 200 mcg PO DAILY 04/28/15 07/31/17 Insulin Glargine,Hum.rec.anlog 50 unit SQ W/BRKFST 07/05/16 07/31/17 [Lantus Solostar] Aspirin [Adult Low Dose Aspirin EC] 81 mg PO HS 09/04/16 07/31/17 Budesonide-Formot 160-4.5 Mcg 2 puff INHALATION RT-BID 09/30/16 07/31/17 [Symbicort 160-4.5 Mcg Inhaler] Albuterol Inhaler [Ventolin Hfa 2 puff INHALATION RT-Q6H PRN 10/21/16 07/31/17 Inhaler] Insulin Glargine,Hum.rec.anlog 100 unit SQ HS 10/21/16 07/31/17 [Lantus Solostar] Loratadine [Claritin] 10 mg PO QAM 10/21/16 07/31/17 Venlafaxine HCl [Venlafaxine HCl 225 mg PO DAILY 10/21/16 07/31/17 ER] Naproxen 500 mg PO BID 01/07/17 07/31/17 Omeprazole [PriLOSEC] 20 mg PO BID 01/07/17 07/31/17 Butalbital/Aspirin/Caffeine 1 tab PO BID PRN 05/05/17 07/31/17 [Iuajrb-Jvcpvob-Ffkrimtm 50-325-40 mg] Cariprazine HCl [Vraylar] 1.5 mg PO DAILY 05/05/17 07/31/17 Cyclobenzaprine [Flexeril] 10 mg PO BID PRN 05/05/17 07/31/17 INSULIN LISPRO (HumaLOG) [humaLOG] 15 unit SQ AC-TID 05/05/17 07/31/17 Nicotine 21Mg/24Hr Patch [Habitrol] 1 patch TRANSDERM DAILY 05/05/17 07/31/17 Atorvastatin [Lipitor] 80 mg PO DAILY 07/31/17 07/31/17 Clopidogrel [Plavix] 75 mg PO DAILY 07/31/17 07/31/17 INSULIN LISPRO (HumaLOG) [HumaLOG] See Protocol SQ AC-TID 07/31/17 07/31/17 Levothyroxine Sodium [Synthroid] 25 mcg PO DAILY 07/31/17 07/31/17 Meclizine [Antivert] 12.5 - 25 mg PO TID PRN 07/31/17 07/31/17 Nystatin 100,000Unit/gm Cream 1 applic TOPICAL BID 07/31/17 07/31/17 [Mycostatin Cream] metFORMIN HCL [Glucophage] 500 mg PO BID 07/31/17 07/31/17 Allergies Allergy/AdvReac Type Severity Reaction Status Date / Time grass pollen Allergy Unknown Verified 07/31/17 16:44 latex Allergy Rash/Hives Verified 07/31/17 16:44 Sulfa (Sulfonamide Allergy Rash/Hives/ Verified 07/31/17 16:44 Antibiotics) Swelling venom-honey bee Allergy Anaphylaxis Verified 07/31/17 16:44 morphine AdvReac Decreased Verified 07/31/17 16:44 Blood Pressure prochlorperazine edisylate AdvReac Vomiting Verified 07/31/17 16:44 [From Compazine] prochlorperazine maleate AdvReac Vomiting Verified 07/31/17 16:44 [From Compazine] Review of Systems ROS Statement: Those systems with pertinent positive or pertinent negative responses have been documented in the HPI. ROS Other: All systems not noted in ROS Statement are negative. Past Medical History Past Medical History: COPD, CVA/TIA, Diabetes Mellitus, GERD/Reflux, Hyperlipidemia, Hypertension, Myocardial Infarction (SC), Thyroid Disorder Additional Past Medical History / Comment(s): Open incision to abdomen.Pt recently admitted to [facility] on 09/16/16 with SBO with surgery/possible septic emboli with cavitary lesions bilateral lungs. Other hx: left renal cell carcinoma status post partial nephrectomy, CVA 4, diabetes mellitus, COPD, hypothyroidism, chronic back pain, urine checked infection with sepsis secondary to ESBL producing E. coli in April 2016 requiring a PICC line insertion for IV antibiotics, coronary artery disease with previous SC, restless leg syndrome, peripheral neuropathy, hypertension, hypothyroidism, hyperlipidemia, GE reflux, depression Last Myocardial Infarction Date:: 2012 History of Any Multi-Drug Resistant Organisms: ESBL, VRE Date of last positivie culture/infection: 05/07/16 ESBL, 05/15/16 VRE MDRO Source:: URINE E.COLI, EC GALLINARUM Past Surgical History: Appendectomy, Bowel Resection, Section, Heart Catheterization Additional Past Surgical History / Comment(s): 09/23/16 exploratory laparotomy, lysis of adhesions bowel resection d/t obstruction evacuation incarcerated food bezoar/repair incarcerated incisional hernia with abdominal washout. Other sx hx: thyroidectomy(non functioning) heart cath 13 100% occluded LAD unable to stent, partial nephrectomy for a left kidney renal cell carcinoma, PICC line insertion (since removed), colonoscopy, bilateral cataract removal with lens implants, 2 C-Sections. Past Anesthesia/Blood Transfusion Reactions: No Reported Reaction Past Psychological History: Anxiety, Depression Smoking Status: Current every day smoker Past Alcohol Use History: None Reported Past Drug Use History: None Reported, Marijuana - Past Family History Father Family Medical History: Myocardial Infarction (SC) Additional Family Medical History / Comment(s): from mi at age 48 Mother Family Medical History: Cancer Additional Family Medical History / Comment(s): maeve breasts removed d/t cancer, hysterectomy d/t cancer General Exam - General Exam Comments Initial Comments: General: The patient is awake and alert, in no distress, and does not appear acutely ill. Eye: Pupils are equal, round and reactive to light, extra-ocular movements are intact. No nystagmus. There is normal conjunctiva bilaterally. No signs of icterus. Ears, nose, mouth and throat: There are moist mucous membranes and no oral lesions. Neck: The neck is supple, there is no tenderness or JVD. Cardiovascular: There is a regular rate and rhythm. No murmur, rub or gallop is appreciated. Respiratory: Lungs are clear to auscultation, respirations are non-labored, breath sounds are equal. No wheezes, stridor, rales, or rhonchi. Gastrointestinal: Soft, non-distended, non-tender abdomen without masses or organomegaly noted. There is no rebound or guarding present. No CVA tenderness. Musculoskeletal: Normal ROM, no tenderness. Strength 5/5. Sensation intact. Pulses equal bilaterally 2+. Neurological: A&O x 3. CN II-XII intact, There are no obvious motor or sensory deficits. Coordination appears grossly intact. Speech is normal. Skin: Skin is warm and dry and no rashes or lesions are noted. Psychiatric: Cooperative, appropriate mood & affect, normal judgment. Course Vital Signs 07/31/17 07/31/17 15:58 17:13 Temperature 99.1 F Pulse Rate 111 H 88 Respiratory 18 16 Rate Blood Pressure 139/95 141/85 O2 Sat by Pulse 98 97 Oximetry Medical Decision Making - Medical Decision Making Patient reexamined at this time shows no signs of distress or x-ray of the right wrist is negative. Patient will be treated with an Pedro wrap advised ice elevate and follow 7-10 days if symptoms persist for repeat x-ray. Patient's labs do show elevated blood glucose. Patient was given a liter bolus and also Humalog here in the emergency room. Blood sugar has improved. Patient feeling better. Acetone negative. Case was discussed with attending physician . Patient will be discharged home advised follow-up family doctor over the next 2 days. Advised return if any symptoms increase worsen. - Lab Data Result diagrams: 07/31/17 16:19 07/31/17 16:19 Lab Results 07/31/17 07/31/17 07/31/17 Range/Units 16:10 16:19 16:19 WBC 5.2 (3.8-10.6) k/uL RBC 4.16 (3.80-5.40) m/uL Hgb 12.1 (11.4-16.0) gm/dL Hct 38.5 (34.0-46.0) % MCV 92.6 (80.0-100.0) fL MCH 29.0 (25.0-35.0) pg MCHC 31.3 (31.0-37.0) g/dL RDW 13.9 (11.5-15.5) % Plt Count 232 (150-450) k/uL Neutrophils % 56 % Lymphocytes % 37 % Monocytes % 3 % Eosinophils % 2 % Basophils % 1 % Neutrophils # 2.9 (1.3-7.7) k/uL Lymphocytes # 1.9 (1.0-4.8) k/uL Monocytes # 0.2 (0-1.0) k/uL Eosinophils # 0.1 (0-0.7) k/uL Basophils # 0.0 (0-0.2) k/uL Sodium 127 L (137-145) mmol/L Potassium 4.9 (3.5-5.1) mmol/L Chloride 88 L (98-107) mmol/L Carbon Dioxide 26 (22-30) mmol/L Anion Gap 13 mmol/L BUN 20 H (7-17) mg/dL Creatinine 0.71 (0.52-1.04) mg/dL Est GFR (MDRD) Af Amer >60 (>60 ml/min/1.73 sqM) Est GFR (MDRD) Non-Af >60 (>60 ml/min/1.73 sqM) Glucose 616 H* (74-99) mg/dL POC Glucose (mg/dL) >600 H (75-99) mg/dL POC Glu Stator Plate Washer ID [facility] [place] Calcium 9.9 (8.4-10.2) mg/dL Total Bilirubin 0.3 (0.2-1.3) mg/dL AST 27 (14-36) U/L ALT 25 (9-52) U/L Alkaline Phosphatase 111 (38-126) U/L Total Protein 6.6 (6.3-8.2) g/dL Albumin 4.1 (3.5-5.0) g/dL Urine Color Urine Appearance (Clear) Urine pH (5.0-8.0) Ur Specific [place] (1.001-1.035) Urine Protein (Negative) Urine Glucose (UA) (Negative) Urine Ketones (Negative) Urine Blood (Negative) Urine Nitrite (Negative) Urine Bilirubin (Negative) Urine Urobilinogen (<2.0) mg/dL Ur Leukocyte Esterase (Negative) Acetone, Qual Negative (Negative) 07/31/17 07/31/17 07/31/17 Range/Units 16:19 17:22 18:48 WBC (3.8-10.6) k/uL RBC (3.80-5.40) m/uL Hgb (11.4-16.0) gm/dL Hct (34.0-46.0) % MCV (80.0-100.0) fL MCH (25.0-35.0) pg MCHC (31.0-37.0) g/dL RDW (11.5-15.5) % Plt Count (150-450) k/uL Neutrophils % % Lymphocytes % % Monocytes % % Eosinophils % % Basophils % % Neutrophils # (1.3-7.7) k/uL Lymphocytes # (1.0-4.8) k/uL Monocytes # (0-1.0) k/uL Eosinophils # (0-0.7) k/uL Basophils # (0-0.2) k/uL Sodium (137-145) mmol/L Potassium (3.5-5.1) mmol/L Chloride (98-107) mmol/L Carbon Dioxide (22-30) mmol/L Anion Gap mmol/L BUN (7-17) mg/dL Creatinine (0.52-1.04) mg/dL Est GFR (MDRD) Af Amer (>60 ml/min/1.73 sqM) Est GFR (MDRD) Non-Af (>60 ml/min/1.73 sqM) Glucose (74-99) mg/dL POC Glucose (mg/dL) 498 H 357 H (75-99) mg/dL POC Glu Stator Plate Washer ID [place], [place] Calcium (8.4-10.2) mg/dL Total Bilirubin (0.2-1.3) mg/dL AST (14-36) U/L ALT (9-52) U/L Alkaline Phosphatase (38-126) U/L Total Protein (6.3-8.2) g/dL Albumin (3.5-5.0) g/dL Urine Color Light Yellow Urine Appearance Clear (Clear) Urine pH 6.0 (5.0-8.0) Ur Specific [place] 1.025 (1.001-1.035) Urine Protein Negative (Negative) Urine Glucose (UA) 4+ H (Negative) Urine Ketones Negative (Negative) Urine Blood Negative (Negative) Urine Nitrite Negative (Negative) Urine Bilirubin Negative (Negative) Urine Urobilinogen <2.0 (<2.0) mg/dL Ur Leukocyte Esterase Negative (Negative) Acetone, Qual (Negative) Disposition Clinical Impression: Hyperglycemia, Wrist sprain Disposition: HOME SELF-CARE Condition: Good Instructions: Wrist Sprain (ED) Additional Instructions: Please follow up with the family doctor over the next 2 days. Please return to emergency room symptoms increase or worsen. Please continue to ice elevate the right wrist this 4 times a day for 20 minutes at a time. Please follow-up 7-10 days if symptoms persist for repeat x-rays as discussed. Referrals: Kiah Schroeder MD [Primary Care Provider] - 1-2 days Time of Disposition: 19:04
[2017-07-31 16:44] LABS: Glucose,Whole Blood >600 mg/dL (75-99)
[2017-07-31 16:45] LABS: Appearance,Urine Clear (Clear); Bilirubin,Urine Negative (Negative); Blood,Urine Negative (Negative); Color,Urine Light Yellow; Glucose,Urine (UA) 4+ (Negative); Ketones,Urine Negative (Negative); Leukocyte Esterase,Urine Negative (Negative); Nitrite,Urine Negative (Negative); Protein,Urine Negative (Negative); Specific Gravity,Urine 1.025 (1.001-1.035); Urobilinogen,Urine <2.0 mg/dL (<2.0)
[2017-07-31 16:47] LABS: Basophils % (A) 1 %; Eosinophils # (A) 0.1 k/uL (0-0.7); Eosinophils % (A) 2 %; HCT 38.5 % (34.0-46.0); HGB 12.1 gm/dL (11.4-16.0); Lymphocytes # (A) 1.9 k/uL (1.0-4.8); Lymphocytes % (A) 37 %; MCHC 31.3 g/dL (31.0-37.0); MCV 92.6 fL (80.0-100.0); Monocytes # (A) 0.2 k/uL (0-1.0); Monocytes % (A) 3 %; Neutrophils # (A) 2.9 k/uL (1.3-7.7); Neutrophils % (A) 56 %; Platelet Count 232 k/uL (150-450); RBC 4.16 m/uL (3.80-5.40); RDW 13.9 % (11.5-15.5); WBC 5.2 k/uL (3.8-10.6)
[2017-07-31 16:55] LABS: ALT 25 U/L (9-52); AST 27 U/L (14-36); Albumin 4.1 g/dL (3.5-5.0); Alkaline Phosphatase 111 U/L (38-126); Anion Gap 13 mmol/L; Blood Urea Nitrogen 20 mg/dL (7-17); Calcium 9.9 mg/dL (8.4-10.2); Carbon Dioxide 26 mmol/L (22-30); Chloride 88 mmol/L (98-107); Potassium 4.9 mmol/L (3.5-5.1); Sodium 127 mmol/L (137-145); Total Bilirubin 0.3 mg/dL (0.2-1.3); Total Protein 6.6 g/dL (6.3-8.2)
[2017-07-31 17:11] LABS: Glucose 616 mg/dL (74-99)
[2017-07-31] MEDS ORDERED: INSULIN ASPART 100 UNIT/ML 1 ML 10 ML VIAL SQ ONE (17:23)
[2017-07-31 17:44] LABS: Glucose,Whole Blood 498 mg/dL (75-99)
--- NOTE | 2017-07-31 18:22 | XR ---
EXAMINATION TYPE: XR wrist complete RT DATE OF EXAM: 07/31/2017 COMPARISON: 10/11/2015 HISTORY: Pain TECHNIQUE: 4 views FINDINGS: I see no fracture nor dislocation. There is minor spurring at the first carpometacarpal magda nt. There are no erosions. Scaphoid is intact. IMPRESSION: No acute abnormality of the right wrist. No change.
[2017-07-31 18:59] LABS: Glucose,Whole Blood 357 mg/dL (75-99)
[2017-07-31 19:14] VITALS: BP 150/78; PULSE 89; RESP 8; TEMP 98.6
== END 2017-07-31 19:14 | disposition home or self-care (01) ==
LOC: EC 15:31
DX: S63.501A Unspecified sprain of right wrist, initial encounter (principal); E11.65 Type 2 diabetes mellitus with hyperglycemia; J44.9 Chronic obstructive pulmonary disease, unspecified; I10 Essential (primary) hypertension; E78.5 Hyperlipidemia, unspecified; K21.9 Gastro-esophageal reflux disease without esophagitis; I25.2 Old myocardial infarction; E03.9 Hypothyroidism, unspecified; I25.10 Atherosclerotic heart disease of native coronary artery without angina pectoris; F32.9 Major depressive disorder, single episode, unspecified; F41.9 Anxiety disorder, unspecified; F17.200 Nicotine dependence, unspecified, uncomplicated; Z86.73 Personal history of transient ischemic attack (TIA), and cerebral infarction without residual deficits; Z85.528 Personal history of other malignant neoplasm of kidney; Z91.09 Other allergy status, other than to drugs and biological substances; Z91.040 Latex allergy status; Z88.2 Allergy status to sulfonamides; Z91.030 Bee allergy status; Z88.5 Allergy status to narcotic agent; Z88.8 Allergy status to other drugs, medicaments and biological substances; Z79.4 Long term (current) use of insulin; Z79.51 Long term (current) use of inhaled steroids; Z79.82 Long term (current) use of aspirin; Z79.02 Long term (current) use of antithrombotics/antiplatelets; Z79.84 Long term (current) use of oral hypoglycemic drugs; Z79.899 Other long term (current) drug therapy; X58.XXXA Exposure to other specified factors, initial encounter
CPT/HCPCS: 36415; 80053; 82009; 85025; 81003; 73110; 99284; 96374; 96361; J2405

== ENCOUNTER 2017-08-15 12:57 | Inpatient (IN) | payer OTHER ==
[2017-08-15] MEDS ORDERED: SODIUM CHLORIDE 0.9% 500 ML IV STA (13:40)
[2017-08-15] MEDS ORDERED: SODIUM CHLORIDE 0.9% 1,000 ML IV STA (13:40)
[2017-08-15 13:46] LABS: Glucose,Whole Blood 587 mg/dL (75-99)
[2017-08-15 13:48] LABS: Glucose,Whole Blood >600 mg/dL (75-99)
--- NOTE | 2017-08-15 13:53 | ED ---
General Adult HPI - General Chief complaint: Recheck/Abnormal Lab/Rx Stated complaint: Dizzy, Light headed, High Sugar Time Seen by Provider: 08/15/17 13:40 Source: patient, RN notes reviewed, old records reviewed Mode of arrival: ambulatory Limitations: no limitations - History of Present Illness Initial comments: This is a 57-year-old female to the ER for evaluation. Patient coming in for evaluation regarding and regular blood sugars. But sugars were high low. Patient is on insulin. No recent change in medications. No nausea vomiting or diarrhea. Patient states she has been having struggling with full her blood.. No nausea vomiting or diarrhea. No fevers. No chest pain shortness of breath or abdominal pain - Related Data Home Medications Medication Instructions Recorded Confirmed Levothyroxine Sodium [Synthroid] 200 mcg PO DAILY 04/28/15 08/15/17 Insulin Glargine,Hum.rec.anlog 20 unit SQ W/BRKFST 07/05/16 08/15/17 [Lantus Solostar] Aspirin [Adult Low Dose Aspirin EC] 81 mg PO HS 09/04/16 08/15/17 Albuterol Inhaler [Ventolin Hfa 2 puff INHALATION RT-Q6H PRN 10/21/16 08/15/17 Inhaler] Insulin Glargine,Hum.rec.anlog 40 unit SQ HS 10/21/16 08/15/17 [Lantus Solostar] Loratadine [Claritin] 10 mg PO QAM 10/21/16 08/15/17 Venlafaxine HCl [Venlafaxine HCl 225 mg PO DAILY 10/21/16 08/15/17 ER] Omeprazole [PriLOSEC] 20 mg PO BID 01/07/17 08/15/17 Butalbital/Aspirin/Caffeine 1 tab PO BID PRN 05/05/17 08/15/17 [Lqcxue-Qfhbksb-Larvlxir 50-325-40 mg] Cariprazine HCl [Vraylar] 1.5 mg PO DAILY 05/05/17 08/15/17 Cyclobenzaprine [Flexeril] 10 mg PO BID PRN 05/05/17 08/15/17 INSULIN LISPRO (HumaLOG) [humaLOG] 10 unit SQ AC-TID 05/05/17 08/15/17 Atorvastatin [Lipitor] 80 mg PO DAILY 07/31/17 08/15/17 Clopidogrel [Plavix] 75 mg PO DAILY 07/31/17 08/15/17 INSULIN LISPRO (HumaLOG) [HumaLOG] See Protocol SQ AC-TID 07/31/17 08/15/17 Levothyroxine Sodium [Synthroid] 25 mcg PO DAILY 07/31/17 08/15/17 Meclizine [Antivert] 12.5 - 25 mg PO TID PRN 07/31/17 08/15/17 metFORMIN HCL [Glucophage] 500 mg PO BID 07/31/17 08/15/17 Cyanocobalamin (Vitamin B-12) 1,000 mcg PO DAILY 08/15/17 08/15/17 [Vitamin B-12] Multivitamins, Thera [Multivitamin 1 tab PO DAILY 08/15/17 08/15/17 (formulary)] Allergies Allergy/AdvReac Type Severity Reaction Status Date / Time grass pollen Allergy Unknown Verified 08/15/17 14:07 latex Allergy Rash/Hives Verified 08/15/17 14:07 Sulfa (Sulfonamide Allergy Rash/Hives/ Verified 08/15/17 14:07 Antibiotics) Swelling venom-honey bee Allergy Anaphylaxis Verified 08/15/17 14:07 morphine AdvReac Decreased Verified 08/15/17 14:07 Blood Pressure prochlorperazine edisylate AdvReac Vomiting Verified 08/15/17 14:07 [From Compazine] prochlorperazine maleate AdvReac Vomiting Verified 08/15/17 14:07 [From Compazine] Review of Systems ROS Statement: Those systems with pertinent positive or pertinent negative responses have been documented in the HPI. ROS Other: All systems not noted in ROS Statement are negative. Past Medical History Past Medical History: COPD, CVA/TIA, Diabetes Mellitus, GERD/Reflux, Hyperlipidemia, Hypertension, Myocardial Infarction (MS), Thyroid Disorder Additional Past Medical History / Comment(s): Open incision to abdomen.Pt recently admitted to [facility] on 09/16/16 with SBO with surgery/possible septic emboli with cavitary lesions bilateral lungs. Other hx: left renal cell carcinoma status post partial nephrectomy, CVA 4, diabetes mellitus, COPD, hypothyroidism, chronic back pain, urine checked infection with sepsis secondary to ESBL producing E. coli in April 2016 requiring a PICC line insertion for IV antibiotics, coronary artery disease with previous MS, restless leg syndrome, peripheral neuropathy, hypertension, hypothyroidism, hyperlipidemia, GE reflux, depression Last Myocardial Infarction Date:: 2012 History of Any Multi-Drug Resistant Organisms: ESBL, VRE Date of last positivie culture/infection: 05/07/16 ESBL, 05/15/16 VRE MDRO Source:: URINE E.COLI, EC GALLINARUM Past Surgical History: Appendectomy, Bowel Resection, Section, Heart Catheterization Additional Past Surgical History / Comment(s): 09/23/16 exploratory laparotomy, lysis of adhesions bowel resection d/t obstruction evacuation incarcerated food bezoar/repair incarcerated incisional hernia with abdominal washout. Other sx hx: thyroidectomy(non functioning) heart cath 06-18-12 100% occluded LAD unable to stent, partial nephrectomy for a left kidney renal cell carcinoma, PICC line insertion (since removed), colonoscopy, bilateral cataract removal with lens implants, 2 C-Sections. Past Anesthesia/Blood Transfusion Reactions: No Reported Reaction Past Psychological History: Anxiety, Depression Smoking Status: Current every day smoker Past Alcohol Use History: None Reported Past Drug Use History: None Reported, Marijuana - Past Family History Father Family Medical History: Myocardial Infarction (MS) Additional Family Medical History / Comment(s): from mi at age 48 Mother Family Medical History: Cancer Additional Family Medical History / Comment(s): maeve breasts removed d/t cancer, hysterectomy d/t cancer General Exam Limitations: no limitations General appearance: alert, in no apparent distress Head exam: Present: atraumatic, normocephalic, normal inspection Eye exam: Present: normal appearance, PERRL, EOMI. Absent: scleral icterus, conjunctival injection, periorbital swelling ENT exam: Present: normal exam, mucous membranes dry Neck exam: Present: normal inspection. Absent: tenderness, meningismus, lymphadenopathy Respiratory exam: Present: normal lung sounds bilaterally. Absent: respiratory distress, wheezes, rales, rhonchi, stridor Cardiovascular Exam: Present: normal rhythm, tachycardia, normal heart sounds. Absent: systolic murmur, diastolic murmur, rubs, gallop, clicks GI/Abdominal exam: Present: soft, normal bowel sounds. Absent: distended, tenderness, guarding, rebound, rigid Extremities exam: Present: normal inspection, full ROM, normal capillary refill. Absent: tenderness, pedal edema, joint swelling, calf tenderness Back exam: Present: normal inspection Neurological exam: Present: alert, oriented X3, CN II-XII intact Psychiatric exam: Present: normal affect, normal mood Skin exam: Present: warm, dry, intact, normal color. Absent: rash Course Vital Signs 08/15/17 13:27 Temperature 99.7 F H Pulse Rate 109 H Respiratory 15 Rate Blood Pressure 123/89 O2 Sat by Pulse 97 Oximetry - Reevaluation(s) Reevaluation #1: 08/15/17 15:17 Patient is feeling better with IV fluid resuscitation EKG Findings - EKG Comments: EKG Findings:: EKG shows normal sinus rhythm rate of 98, OK 136, QRS 86, QTc 469 Medical Decision Making - Medical Decision Making 57 female the ER for evaluation. Patient was essay for evaluation regarding possible blood sugars. Patient's blood sugars severely elevated severe dehydration will admit for blood sugar control and medication adjustment - Lab Data Result diagrams: 08/15/17 13:55 08/15/17 13:55 Lab Results 08/15/17 08/15/17 08/15/17 Range/Units 13:32 13:44 13:54 WBC (3.8-10.6) k/uL RBC (3.80-5.40) m/uL Hgb (11.4-16.0) gm/dL Hct (34.0-46.0) % MCV (80.0-100.0) fL MCH (25.0-35.0) pg MCHC (31.0-37.0) g/dL RDW (11.5-15.5) % Plt Count (150-450) k/uL Neutrophils % % Lymphocytes % % Monocytes % % Eosinophils % % Basophils % % Neutrophils # (1.3-7.7) k/uL Lymphocytes # (1.0-4.8) k/uL Monocytes # (0-1.0) k/uL Eosinophils # (0-0.7) k/uL Basophils # (0-0.2) k/uL Sodium (137-145) mmol/L Potassium (3.5-5.1) mmol/L Chloride (98-107) mmol/L Carbon Dioxide (22-30) mmol/L Anion Gap mmol/L BUN (7-17) mg/dL Creatinine (0.52-1.04) mg/dL Est GFR (MDRD) Af Amer (>60 ml/min/1.73 sqM) Est GFR (MDRD) Non-Af (>60 ml/min/1.73 sqM) Glucose (74-99) mg/dL POC Glucose (mg/dL) >600 H 587 H (75-99) mg/dL POC Glu Marketing Operations Manager ID Ana Gomez Nicole Calcium (8.4-10.2) mg/dL Phosphorus (2.5-4.5) mg/dL Magnesium (1.6-2.3) mg/dL Total Bilirubin (0.2-1.3) mg/dL AST (14-36) U/L ALT (9-52) U/L Alkaline Phosphatase (38-126) U/L Total Protein (6.3-8.2) g/dL Albumin (3.5-5.0) g/dL Urine Color Light Yellow Urine Appearance Clear (Clear) Urine pH 5.5 (5.0-8.0) Ur Specific [place] 1.020 (1.001-1.035) Urine Protein Negative (Negative) Urine Glucose (UA) 4+ H (Negative) Urine Ketones Negative (Negative) Urine Blood Negative (Negative) Urine Nitrite Negative (Negative) Urine Bilirubin Negative (Negative) Urine Urobilinogen <2.0 (<2.0) mg/dL Ur Leukocyte Esterase Negative (Negative) Acetone, Qual (Negative) 08/15/17 08/15/17 08/15/17 Range/Units 13:55 13:55 15:09 WBC 3.4 L (3.8-10.6) k/uL RBC 3.78 L (3.80-5.40) m/uL Hgb 11.2 L (11.4-16.0) gm/dL Hct 34.4 (34.0-46.0) % MCV 91.1 (80.0-100.0) fL MCH 29.5 (25.0-35.0) pg MCHC 32.4 (31.0-37.0) g/dL RDW 14.2 (11.5-15.5) % Plt Count 205 (150-450) k/uL Neutrophils % 48 % Lymphocytes % 42 % Monocytes % 4 % Eosinophils % 2 % Basophils % 1 % Neutrophils # 1.6 (1.3-7.7) k/uL Lymphocytes # 1.4 (1.0-4.8) k/uL Monocytes # 0.1 (0-1.0) k/uL Eosinophils # 0.1 (0-0.7) k/uL Basophils # 0.0 (0-0.2) k/uL Sodium 131 L (137-145) mmol/L Potassium 5.0 (3.5-5.1) mmol/L Chloride 94 L (98-107) mmol/L Carbon Dioxide 23 (22-30) mmol/L Anion Gap 14 mmol/L BUN 16 (7-17) mg/dL Creatinine 0.70 (0.52-1.04) mg/dL Est GFR (MDRD) Af Amer >60 (>60 ml/min/1.73 sqM) Est GFR (MDRD) Non-Af >60 (>60 ml/min/1.73 sqM) Glucose 649 H* (74-99) mg/dL POC Glucose (mg/dL) >600 H (75-99) mg/dL POC Glu Marketing Operations Manager ID Margaret Chou Calcium 9.3 (8.4-10.2) mg/dL Phosphorus 3.8 (2.5-4.5) mg/dL Magnesium 1.6 (1.6-2.3) mg/dL Total Bilirubin 0.2 (0.2-1.3) mg/dL AST 49 H (14-36) U/L ALT 34 (9-52) U/L Alkaline Phosphatase 121 (38-126) U/L Total Protein 6.7 (6.3-8.2) g/dL Albumin 4.1 (3.5-5.0) g/dL Urine Color Urine Appearance (Clear) Urine pH (5.0-8.0) Ur Specific [place] (1.001-1.035) Urine Protein (Negative) Urine Glucose (UA) (Negative) Urine Ketones (Negative) Urine Blood (Negative) Urine Nitrite (Negative) Urine Bilirubin (Negative) Urine Urobilinogen (<2.0) mg/dL Ur Leukocyte Esterase (Negative) Acetone, Qual Negative (Negative) Disposition Clinical Impression: HHNC (hyperglycemic hyperosmolar nonketotic coma) Disposition: ADMITTED IP TO THIS HOSP Condition: Fair Referrals: Kiah Schroeder MD [Primary Care Provider] - 1-2 days
[2017-08-15] MEDS: SODIUM CHLORIDE 0.9% 1,000 ML IV STA ×3 (14:04→15:58)
[2017-08-15 14:11] LABS: Basophils % (A) 1 %; Eosinophils # (A) 0.1 k/uL (0-0.7); Eosinophils % (A) 2 %; HCT 34.4 % (34.0-46.0); HGB 11.2 gm/dL (11.4-16.0); Lymphocytes # (A) 1.4 k/uL (1.0-4.8); Lymphocytes % (A) 42 %; MCH 29.5 pg (25.0-35.0); MCHC 32.4 g/dL (31.0-37.0); MCV 91.1 fL (80.0-100.0); Mean Platelet Volume 7.4; Monocytes # (A) 0.1 k/uL (0-1.0); Monocytes % (A) 4 %; Neutrophils # (A) 1.6 k/uL (1.3-7.7); Neutrophils % (A) 48 %; Platelet Count 205 k/uL (150-450); RBC 3.78 m/uL (3.80-5.40); RDW 14.2 % (11.5-15.5); WBC 3.4 k/uL (3.8-10.6)
[2017-08-15 14:13] LABS: Appearance,Urine Clear (Clear); Bilirubin,Urine Negative (Negative); Blood,Urine Negative (Negative); Color,Urine Light Yellow; Glucose,Urine (UA) 4+ (Negative); Ketones,Urine Negative (Negative); Leukocyte Esterase,Urine Negative (Negative); PH, Urine 5.5 (5.0-8.0); Protein,Urine Negative (Negative); Urobilinogen,Urine <2.0 mg/dL (<2.0)
[2017-08-15 14:24] LABS: ALT 34 U/L (9-52); AST 49 U/L (14-36); Albumin 4.1 g/dL (3.5-5.0); Alkaline Phosphatase 121 U/L (38-126); Anion Gap 14 mmol/L; Blood Urea Nitrogen 16 mg/dL (7-17); Calcium 9.3 mg/dL (8.4-10.2); Carbon Dioxide 23 mmol/L (22-30); Chloride 94 mmol/L (98-107); Phosphorus 3.8 mg/dL (2.5-4.5); Sodium 131 mmol/L (137-145); Total Bilirubin 0.2 mg/dL (0.2-1.3); Total Protein 6.7 g/dL (6.3-8.2)
[2017-08-15 14:41] LABS: Glucose 649 mg/dL (74-99)
[2017-08-15 15:11] LABS: Glucose,Whole Blood >600 mg/dL (75-99)
[2017-08-15] MEDS ORDERED: INSULIN REGULAR BOLUS (FROM DRIP BAG) IV ONE (15:14)
[2017-08-15] MEDS ORDERED: INSULIN REGULAR 100 UNIT in SODIUM CHLORIDE 0.9% 100 ML IV SCH (15:15)
[2017-08-15] MEDS: SODIUM CHLORIDE 0.9% 1,000 ML IV SCH (15:54)
--- NOTE | 2017-08-15 16:00 | ED ---
Medical Decision Making - Medical Decision Making 57 female the ER for evaluation of uncontrolled blood sugar. Patient having elevated blood sugar here in the ER which is respond insulin fluid challenge. Patient be admitted to continue her left foot monitoring and blood sugar control - Lab Data Result diagrams: 08/15/17 13:55 08/15/17 13:55 Lab Results 08/15/17 08/15/17 08/15/17 Range/Units 13:32 13:44 13:54 WBC (3.8-10.6) k/uL RBC (3.80-5.40) m/uL Hgb (11.4-16.0) gm/dL Hct (34.0-46.0) % MCV (80.0-100.0) fL MCH (25.0-35.0) pg MCHC (31.0-37.0) g/dL RDW (11.5-15.5) % Plt Count (150-450) k/uL Neutrophils % % Lymphocytes % % Monocytes % % Eosinophils % % Basophils % % Neutrophils # (1.3-7.7) k/uL Lymphocytes # (1.0-4.8) k/uL Monocytes # (0-1.0) k/uL Eosinophils # (0-0.7) k/uL Basophils # (0-0.2) k/uL Sodium (137-145) mmol/L Potassium (3.5-5.1) mmol/L Chloride (98-107) mmol/L Carbon Dioxide (22-30) mmol/L Anion Gap mmol/L BUN (7-17) mg/dL Creatinine (0.52-1.04) mg/dL Est GFR (MDRD) Af Amer (>60 ml/min/1.73 sqM) Est GFR (MDRD) Non-Af (>60 ml/min/1.73 sqM) Glucose (74-99) mg/dL POC Glucose (mg/dL) >600 H 587 H (75-99) mg/dL POC Glu Nurse Transition Ana Brody Nicole Calcium (8.4-10.2) mg/dL Phosphorus (2.5-4.5) mg/dL Magnesium (1.6-2.3) mg/dL Total Bilirubin (0.2-1.3) mg/dL AST (14-36) U/L ALT (9-52) U/L Alkaline Phosphatase (38-126) U/L Total Protein (6.3-8.2) g/dL Albumin (3.5-5.0) g/dL Urine Color Light Yellow Urine Appearance Clear (Clear) Urine pH 5.5 (5.0-8.0) Ur Specific [place] 1.020 (1.001-1.035) Urine Protein Negative (Negative) Urine Glucose (UA) 4+ H (Negative) Urine Ketones Negative (Negative) Urine Blood Negative (Negative) Urine Nitrite Negative (Negative) Urine Bilirubin Negative (Negative) Urine Urobilinogen <2.0 (<2.0) mg/dL Ur Leukocyte Esterase Negative (Negative) Acetone, Qual (Negative) 08/15/17 08/15/17 08/15/17 Range/Units 13:55 13:55 15:09 WBC 3.4 L (3.8-10.6) k/uL RBC 3.78 L (3.80-5.40) m/uL Hgb 11.2 L (11.4-16.0) gm/dL Hct 34.4 (34.0-46.0) % MCV 91.1 (80.0-100.0) fL MCH 29.5 (25.0-35.0) pg MCHC 32.4 (31.0-37.0) g/dL RDW 14.2 (11.5-15.5) % Plt Count 205 (150-450) k/uL Neutrophils % 48 % Lymphocytes % 42 % Monocytes % 4 % Eosinophils % 2 % Basophils % 1 % Neutrophils # 1.6 (1.3-7.7) k/uL Lymphocytes # 1.4 (1.0-4.8) k/uL Monocytes # 0.1 (0-1.0) k/uL Eosinophils # 0.1 (0-0.7) k/uL Basophils # 0.0 (0-0.2) k/uL Sodium 131 L (137-145) mmol/L Potassium 5.0 (3.5-5.1) mmol/L Chloride 94 L (98-107) mmol/L Carbon Dioxide 23 (22-30) mmol/L Anion Gap 14 mmol/L BUN 16 (7-17) mg/dL Creatinine 0.70 (0.52-1.04) mg/dL Est GFR (MDRD) Af Amer >60 (>60 ml/min/1.73 sqM) Est GFR (MDRD) Non-Af >60 (>60 ml/min/1.73 sqM) Glucose 649 H* (74-99) mg/dL POC Glucose (mg/dL) >600 H (75-99) mg/dL POC Glu Nurse Transition ID Margaret Chou Calcium 9.3 (8.4-10.2) mg/dL Phosphorus 3.8 (2.5-4.5) mg/dL Magnesium 1.6 (1.6-2.3) mg/dL Total Bilirubin 0.2 (0.2-1.3) mg/dL AST 49 H (14-36) U/L ALT 34 (9-52) U/L Alkaline Phosphatase 121 (38-126) U/L Total Protein 6.7 (6.3-8.2) g/dL Albumin 4.1 (3.5-5.0) g/dL Urine Color Urine Appearance (Clear) Urine pH (5.0-8.0) Ur Specific [place] (1.001-1.035) Urine Protein (Negative) Urine Glucose (UA) (Negative) Urine Ketones (Negative) Urine Blood (Negative) Urine Nitrite (Negative) Urine Bilirubin (Negative) Urine Urobilinogen (<2.0) mg/dL Ur Leukocyte Esterase (Negative) Acetone, Qual Negative (Negative) Disposition Clinical Impression: Hyperglycemia Disposition: ADMITTED IP TO THIS HOSP Condition: Fair
[2017-08-15 16:27] LABS: Glucose,Whole Blood 422 mg/dL (75-99)
[2017-08-15] MEDS: D5-0.45% NACL WITH KCL 20MEQ/L 1,000 ML IV SCH (16:57)
[2017-08-15 17:02] LABS: Glucose,Whole Blood 280 mg/dL (75-99)
[2017-08-15 17:22] LABS: Glucose,Whole Blood 244 mg/dL (75-99)
[2017-08-15 18:25] LABS: Glucose,Whole Blood 127 mg/dL (75-99)
[2017-08-15 18:49] LABS: Anion Gap 7 mmol/L; Blood Urea Nitrogen 13 mg/dL (7-17); Carbon Dioxide 26 mmol/L (22-30); Chloride 108 mmol/L (98-107); Glucose 123 mg/dL (74-99); Phosphorus 1.9 mg/dL (2.5-4.5); Potassium 3.4 mmol/L (3.5-5.1); Sodium 141 mmol/L (137-145)
[2017-08-15 19:02] LABS: Glucose,Whole Blood 216 mg/dL (75-99)
[2017-08-15 19:57] LABS: Glucose,Whole Blood 215 mg/dL (75-99)
[2017-08-15 21:06] LABS: Glucose,Whole Blood 213 mg/dL (75-99)
[2017-08-15] MEDS ORDERED: CYCLOBENZAPRINE 10 MG TAB PO PRN (22:00)
[2017-08-15] MEDS ORDERED: MECLIZINE 25 MG TAB PO PRN (22:00)
[2017-08-15 22:32] LABS: Anion Gap 7 mmol/L; Blood Urea Nitrogen 13 mg/dL (7-17); Carbon Dioxide 24 mmol/L (22-30); Chloride 105 mmol/L (98-107); Glucose 232 mg/dL (74-99); Phosphorus 2.3 mg/dL (2.5-4.5); Potassium 3.5 mmol/L (3.5-5.1); Sodium 136 mmol/L (137-145)
[2017-08-15 22:33] LABS: Glucose,Whole Blood 245 mg/dL (75-99)
--- NOTE | 2017-08-15 22:43 | HP ---
HISTORY AND PHYSICAL DATE OF SERVICE: 08/15/2017 CHIEF COMPLAINTS: High blood sugars. HISTORY OF PRESENT ILLNESS: This 57-year-old woman with a the past medical history of multiple medical problems including CVA, TIA, COPD, diabetes, GERD, hypertension, hyperlipidemia, myocardial infarction, hypothyroidism being followed by Dr. Schroeder in the outpatient setting was noted to have a high blood sugars at home. The sugars were more than 500 and the patient came to [facility] Emergency Room and was admitted for further evaluation and treatment. There is no history of fever, rigors. No history of any headache, loss of consciousness, seizures. The blood sugars have been adjusted , being in the outpatient setting at this time. There is no evidence of ketosis. PAST MEDICAL HISTORY: History of CVA, TIA, COPD, diabetes, GERD, hypertension, hyperlipidemia, history of myocardial infarction, history of small bowel obstruction, history of appendectomy. MEDICATIONS: Prior to admission home medications are: 1. Metformin. 2. Glucophage 500 mg p.o. b.i.d. 3. Effexor SR 225 mg. 4. Prilosec 20 mg b.i.d. 5. Multivitamins one p.o. daily. 6. Antivert 12.5 mg t.i.d. p.r.n. 7. Claritin 10 mg q.p.m. 8. Synthroid 225 mcg p.o. daily. 9. Lantus 40 units subcu q.h.s. and 10 units subcu with breakfast,. 10.Humalog 10 units a.c. t.i.d. 11.Flexeril 10 mg b.i.d. p.r.n. 12.Vitamin B2 1000 mcg p.o. daily. 13.Plavix 75 mg mg p.o. 15.Butalbital 1 tab p.o. b.i.d. p.r.n. 16.Lipitor 80 mg. 17.Aspirin 81 mg q.h.s. 18.Ventolin HFA 1 to 2 puffs q.6h p.r.n. ALLERGIES: ARE GRASS, POLLEN, LATEX, SULFA, VENOM, MORPHINE, PROPOFOL, COMPAZINE. FAMILY HISTORY: History of myocardial infarction in the family. SOCIAL HISTORY: No history of smoking. History of marijuana. REVIEW OF SYSTEMS: ENT: No diminished vision. No diminished hearing. CARDIOVASCULAR: No angina or palpitations. RESPIRATORY: As mentioned earlier. GI no nausea or vomiting. : No dysuria. Central nervous system: No numbness. Allergy/Immunology: No asthma or hayfever. Musculoskeletal: As mentioned earlier. Hematology/Oncology: As mentioned earlier. ENDOCRINE: As mentioned earlier. Constitutional: As mentioned earlier. Dermatology: Negative. Rheumatology: Negative. Psychiatric: As mentioned earlier. PHYSICAL EXAMINATION: The patient is alert and oriented times three. Pulse 88, blood pressure 147/69, respiration 16, temp is normal. Pulse ox 99% on room air. HEENT: Conjunctivae normal. Oral mucosa moist. Neck is no jugular venous distention. No carotid bruit. No lymph node enlargement. Cardiovascular System; S1, S2 muffled. Respiration: Breath sounds diminished in the bases. A few scattered rhonchi and no crackles. ABDOMEN: Soft, nontender. No mass palpable. Healed scars are present otherwise. LEGS: No edema and no swelling. NERVOUS SYSTEM: Higher functions as mentioned earlier. Moves all four extremities. No focal deficits. Lymphatics: No lymph nodes palpable in the neck , axillae or groin. SKIN: No ulcer, rashes or bleeding. LABS: WBCntd hemoglobin 11.2, potassium 3.4, CO2 is 26, and glucose noted. ASSESSMENT: 1. Diabetes type 2 uncontrolled. 2. Hypokalemia. 3. No evidence of ketosis. 4. Chronic obstructive pulmonary disease. 5. Cerebrovascular accident, transient ischemic attack. 6. Gastroesophageal reflux disease. 7. Hyperlipidemia. 8. Hypertension. 9. History of myocardial infarction. 10.History of small bowel obstruction surgery and complications previously. 11.History of left renal cell carcinoma. 12.History of chronic obstructive pulmonary disease. 13.Hypothyroidism. 14.Chronic back pain/degenerative joint disease. 15.History of ESBL E coli. 16.History of PICC line. 17.History of peripheral neuropathy. 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 19.History of appendectomy. 20.History of bowel obstruction. 21.Anxiety, depression. 22.History of nicotine dependence. RECOMMENDATIONS AND DISCUSSION: This 57-year-old woman who presented with multiple complex medical issues, we will monitor the patient closely. Continue the current medications, continue management and symptomatic treatment, insulin drip. Otherwise resume the home medications. DVT prophylaxis. We will follow the patient closely. ketosis and guarded prognosis. Further recommendations to follow. Copy of dictation being forwarded to Dr. Schroeder who is the primary physician. We will reinitiate the metformin too. MMODL / IJN: [id number] / JAN
[2017-08-15 23:30] LABS: Glucose,Whole Blood 207 mg/dL (75-99)
[2017-08-16 00:30] LABS: Glucose,Whole Blood 146 mg/dL (75-99)
[2017-08-16 01:14] LABS: Glucose,Whole Blood 158 mg/dL (75-99)
[2017-08-16 02:05] LABS: Glucose,Whole Blood 232 mg/dL (75-99)
[2017-08-16] MEDS ORDERED: INSULIN DETEMIR 100 UNIT/ML 10 ML VIAL SQ SCH ×2 (02:56→07:30)
[2017-08-16] MEDS ORDERED: INSULIN DETEMIR 100 UNIT/ML 10 ML VIAL SQ ONE (03:04)
[2017-08-16 03:14] LABS: Glucose,Whole Blood 245 mg/dL (75-99)
[2017-08-16 06:33] LABS: Glucose,Whole Blood 271 mg/dL (75-99)
[2017-08-16 06:49] LABS: Anion Gap 4 mmol/L; Blood Urea Nitrogen 14 mg/dL (7-17); Calcium 8.5 mg/dL (8.4-10.2); Carbon Dioxide 28 mmol/L (22-30); Chloride 106 mmol/L (98-107); Glucose 269 mg/dL (74-99); Potassium 4.3 mmol/L (3.5-5.1); Sodium 138 mmol/L (137-145)
[2017-08-16] MEDS: INSULIN ASPART 100 UNIT/ML 1 ML 10 ML VIAL SQ SCH ×7 (07:18→21:10)
[2017-08-16 07:39] LABS: Basophils % (A) 0 %; Eosinophils # (A) 0.1 k/uL (0-0.7); Eosinophils % (A) 3 %; HCT 34.1 % (34.0-46.0); Lymphocytes # (A) 1.7 k/uL (1.0-4.8); Lymphocytes % (A) 43 %; MCH 29.1 pg (25.0-35.0); MCHC 32.4 g/dL (31.0-37.0); MCV 89.9 fL (80.0-100.0); Mean Platelet Volume 7.3; Monocytes # (A) 0.2 k/uL (0-1.0); Monocytes % (A) 5 %; Neutrophils # (A) 1.9 k/uL (1.3-7.7); Neutrophils % (A) 47 %; Platelet Count 189 k/uL (150-450); RDW 14.4 % (11.5-15.5)
[2017-08-16] MEDS ORDERED: INFLUENZA VACCINE (6 MOS+) 60 MCG/0.5 ML SYRINGE IM ONE (09:00)
[2017-08-16] MEDS: VENLAFAXINE HCL ER 75 MG CAP PO SCH (10:12)
[2017-08-16] MEDS: CARIPRAZINE HCL 1.5 MG PO SCH (10:12)
[2017-08-16] MEDS: NICOTINE 14MG/24HR PATCH TRANSDERM SCH (10:12)
[2017-08-16] MEDS: CYANOCOBALAMIN 500 MCG TAB PO SCH (10:13)
[2017-08-16] MEDS: LEVOTHYROXINE 100 MCG TAB PO SCH (10:13)
[2017-08-16] MEDS: CLOPIDOGREL 75 MG TAB PO SCH (10:14)
[2017-08-16] MEDS: HEPARIN SODIUM,PORCINE 5,000 UNIT/ML 1 ML VIAL SQ SCH ×2 (10:14→21:10)
[2017-08-16] MEDS: LEVOTHYROXINE 25 MCG TAB PO SCH (10:15)
[2017-08-16] MEDS: PANTOPRAZOLE 40 MG TABLET PO SCH ×2 (10:15→21:10)
[2017-08-16] MEDS: MULTIVITAMINS, THERA 1 EACH TAB PO SCH (10:15)
[2017-08-16] MEDS: metFORMIN 500 MG TAB PO SCH ×2 (10:15→21:10)
[2017-08-16] MEDS: LORATADINE 10 MG TAB PO SCH (10:16)
[2017-08-16] MEDS: ATORVASTATIN 80 MG TAB PO SCH (10:16)
[2017-08-16] MEDS: D5-0.45% NACL WITH KCL 20MEQ/L 1,000 ML IV SCH ×3 (10:17→21:51)
[2017-08-16 12:18] LABS: Glucose,Whole Blood 88 mg/dL (75-99)
[2017-08-16] MEDS: SODIUM CHLORIDE 0.9% 1,000 ML IV SCH (12:32)
[2017-08-16 14:15] LABS: Hemoglobin A1C 18.1 % (4.0-6.0)
[2017-08-16 15:29] LABS: Glucose,Whole Blood 76 mg/dL (75-99)
[2017-08-16] MEDS: ALPRAZolam 0.25 MG TAB PO PRN (16:03)
[2017-08-16 17:14] LABS: Glucose,Whole Blood 199 mg/dL (75-99)
[2017-08-16 20:57] LABS: Glucose,Whole Blood 205 mg/dL (75-99)
[2017-08-16] MEDS: INSULIN DETEMIR 100 UNIT/ML 10 ML VIAL SQ SCH (21:10)
[2017-08-16] MEDS: TEMAZEPAM 15 MG CAP PO PRN (21:10)
[2017-08-16] MEDS: ASPIRIN 81 MG PO SCH (21:11)
--- NOTE | 2017-08-16 22:39 | PN ---
PROGRESS NOTE DATE OF SERVICE: 08/16/2017 This 57-year-old woman is admitted with diabetes mellitus type 2, uncontrolled, is being closely monitored. No chest pain. No palpitations. No fever. EXAM: Alert, oriented x3. Pulse 100 blood. Pressure 160/93, respirations 18, temperature 97.8, pulse ox 99% on room air. HEENT: Conjunctivae normal. NECK: No jugular venous distention. CARDIOVASCULAR: S1, S2 muffled. RESPIRATORY: Breath sounds diminished in the bases. A few rhonchi. No crackles. ABDOMEN: Soft, nontender. No mass palpable. LEGS: No edema. NERVOUS SYSTEM: Nonfocal. LABS: Hemoglobin is 11. Accu-Cheks 270, 180, 76, 199 and 205. ASSESSMENT: 1. Diabetes mellitus type 2, uncontrolled. 2. Hypokalemia. 3. No evidence of ketosis. 4. Chronic obstructive pulmonary disease. 5. Cerebrovascular accident, transient ischemic attack history. 6. Gastroesophageal reflux disease. 7. Hyperlipidemia. 8. Hypertension. 9. History of myocardial infarction. 10.History of small-bowel obstruction surgery and complications previously. 11.History of renal cell carcinoma, left. 12.History of chronic obstructive pulmonary disease. 13.History of hypothyroidism. 14.History of chronic back pain, degenerative joint disease. 15.History extended-spectrum beta lactamase Escherichia coli. 16.History of percutaneously inserted central catheter line. 17.History of peripheral neuropathy. 18.History of vancomycin-resistant Enterococcus. 19.History of appendectomy. 20.History of bowel obstruction. 21.History of depression, anxiety. 22.History of nicotine dependence. RECOMMENDATIONS AND DISCUSSION: In this 57-year-old woman who presented with multiple complex medical issues, will monitor the patient closely. We will initiate reduced dose of Lantus at night. Monitor blood sugars closely. Prognosis guarded. Patient has brittle diabetes mellitus. Continue the rest of the medications. Guarded prognosis. Further recommendations to follow. MMODL / IJN: [id number] /
[2017-08-17] MEDS: D5-0.45% NACL WITH KCL 20MEQ/L 1,000 ML IV SCH ×3 (05:35→17:18)
[2017-08-17 06:02] LABS: Glucose,Whole Blood 316 mg/dL (75-99)
[2017-08-17 06:45] LABS: Basophils % (A) 0 %; Eosinophils # (A) 0.1 k/uL (0-0.7); Eosinophils % (A) 4 %; HCT 37.8 % (34.0-46.0); Lymphocytes # (A) 1.5 k/uL (1.0-4.8); Lymphocytes % (A) 40 %; MCH 29.3 pg (25.0-35.0); MCHC 31.7 g/dL (31.0-37.0); MCV 92.3 fL (80.0-100.0); Mean Platelet Volume 6.8; Monocytes # (A) 0.2 k/uL (0-1.0); Monocytes % (A) 4 %; Neutrophils # (A) 1.9 k/uL (1.3-7.7); Neutrophils % (A) 49 %; Platelet Count 222 k/uL (150-450); RBC 4.09 m/uL (3.80-5.40); RDW 14.2 % (11.5-15.5); WBC 3.8 k/uL (3.8-10.6)
[2017-08-17 07:00] LABS: Anion Gap 5 mmol/L; Blood Urea Nitrogen 18 mg/dL (7-17); Calcium 9.3 mg/dL (8.4-10.2); Carbon Dioxide 28 mmol/L (22-30); Chloride 105 mmol/L (98-107); Glucose 272 mg/dL (74-99); Potassium 4.3 mmol/L (3.5-5.1); Sodium 138 mmol/L (137-145)
[2017-08-17] MEDS: INSULIN ASPART 100 UNIT/ML 1 ML 10 ML VIAL SQ SCH ×7 (07:21→21:46)
[2017-08-17] MEDS ORDERED: INSULIN DETEMIR 100 UNIT/ML 10 ML VIAL SQ SCH (07:30)
[2017-08-17] MEDS: SODIUM CHLORIDE 0.9% 1,000 ML IV SCH (08:50)
[2017-08-17] MEDS: CYANOCOBALAMIN 500 MCG TAB PO SCH (08:55)
[2017-08-17] MEDS: VENLAFAXINE HCL ER 75 MG CAP PO SCH (08:56)
[2017-08-17] MEDS: LEVOTHYROXINE 100 MCG TAB PO SCH (08:56)
[2017-08-17] MEDS: CLOPIDOGREL 75 MG TAB PO SCH (08:57)
[2017-08-17] MEDS: LEVOTHYROXINE 25 MCG TAB PO SCH (08:57)
[2017-08-17] MEDS: metFORMIN 500 MG TAB PO SCH ×2 (08:57→20:03)
[2017-08-17] MEDS: HEPARIN SODIUM,PORCINE 5,000 UNIT/ML 1 ML VIAL SQ SCH ×2 (08:57→20:03)
[2017-08-17] MEDS: MULTIVITAMINS, THERA 1 EACH TAB PO SCH (08:58)
[2017-08-17] MEDS: ATORVASTATIN 80 MG TAB PO SCH (08:58)
[2017-08-17] MEDS: NICOTINE 14MG/24HR PATCH TRANSDERM SCH (08:58)
[2017-08-17] MEDS: PANTOPRAZOLE 40 MG TABLET PO SCH ×2 (08:58→20:03)
[2017-08-17] MEDS: LORATADINE 10 MG TAB PO SCH (08:59)
[2017-08-17] MEDS: CARIPRAZINE HCL 1.5 MG PO SCH (08:59)
[2017-08-17] MEDS: ALPRAZolam 0.25 MG TAB PO PRN (09:40)
[2017-08-17 12:03] LABS: Glucose,Whole Blood 73 mg/dL (75-99)
[2017-08-17] MEDS: BUTALB/APAP/CAFF 50-325-40MG TAB PO PRN (15:53)
[2017-08-17 17:15] LABS: Glucose,Whole Blood 291 mg/dL (75-99)
--- NOTE | 2017-08-17 18:28 | PN ---
PROGRESS NOTE DATE OF SERVICE: 08/17/2017 This 57-year-old woman was admitted with diabetes mellitus type 2 uncontrolled, is being closely monitored. No chest pain. No palpitations. No fever. Patient complains of weakness. EXAM: Alert and oriented x3. Pulse is 96, blood pressure 150/92, respiration 18, temperature 97.4, pulse ox 100% on room air. HEENT: Conjunctivae normal. Oral mucosa normal. NECK: No jugular venous distention. CARDIOVASCULAR: S1, S2. RESPIRATORY: Breath sounds diminished in the bases. No rhonchi, no crackles. ABDOMEN: Soft, nontender. LEGS: No edema, no swelling. NERVOUS SYSTEM: No focal deficits. LABS: CBC within normal limits. Accu-Cheks 272, 316, 73. ASSESSMENT: 1. Diabetes mellitus type 2 uncontrolled. 2. Hypokalemia. 3. No evidence of ketosis. 4. Brittle diabetes mellitus type 2. 5. Chronic obstructive pulmonary disease. 6. Cerebrovascular accident, transient ischemic attack history. 7. Gastroesophageal reflux disease. 8. Hyperlipidemia. 9. Hypertension. 10.History of myocardial infarction. 11.History of small bowel obstruction surgery as well as complications previously. 12.History of renal cell carcinoma of the left. 13.History of chronic obstructive pulmonary disease. 14.History of hypothyroidism. 15.Chronic back pain, degenerative joint disease. 16.History of ESBL E coli. 17.History of PICC line. 18.History of peripheral neuropathy. 19.History of VRE. 20.History of appendectomy. 21.History of bowel obstruction. 22.History of depression, anxiety. 23.History of nicotine dependence. RECOMMENDATIONS AND DISCUSSION: I recommend to continue current medications and symptomatic treatment. At this time I would recommend continue to monitor the insulin. I would recommend twice daily insulin and premeal insulin also to be changed. See orders for details. Guarded prognosis. Further recommendations to follow. MMODL / IJN: [id number] /
[2017-08-17] MEDS: ASPIRIN 81 MG PO SCH (20:03)
[2017-08-17 20:53] LABS: Glucose,Whole Blood 195 mg/dL (75-99)
[2017-08-17] MEDS: ALBUTEROL NEBULIZED 2.5 MG/3 ML INHALATION PRN (21:30)
[2017-08-17] MEDS: INSULIN DETEMIR 100 UNIT/ML 10 ML VIAL SQ SCH (21:46)
[2017-08-17] MEDS: TEMAZEPAM 15 MG CAP PO PRN (22:02)
[2017-08-17 22:06] LABS: Glucose,Whole Blood 316 mg/dL (75-99)
[2017-08-18] MEDS: ALPRAZolam 0.25 MG TAB PO PRN ×3 (00:23→22:34)
[2017-08-18] MEDS: BUTALB/APAP/CAFF 50-325-40MG TAB PO PRN ×2 (00:23→08:51)
[2017-08-18 06:04] LABS: Glucose,Whole Blood 143 mg/dL (75-99)
[2017-08-18] MEDS: D5-0.45% NACL WITH KCL 20MEQ/L 1,000 ML IV SCH ×2 (06:15→06:17)
[2017-08-18] MEDS: SODIUM CHLORIDE 0.9% 1,000 ML IV SCH (06:16)
[2017-08-18 06:44] LABS: Basophils % (A) 1 %; Eosinophils # (A) 0.2 k/uL (0-0.7); Eosinophils % (A) 5 %; HCT 36.9 % (34.0-46.0); HGB 11.7 gm/dL (11.4-16.0); Lymphocytes # (A) 1.9 k/uL (1.0-4.8); Lymphocytes % (A) 50 %; MCH 29.7 pg (25.0-35.0); MCHC 31.8 g/dL (31.0-37.0); MCV 93.3 fL (80.0-100.0); Mean Platelet Volume 6.8; Monocytes # (A) 0.1 k/uL (0-1.0); Monocytes % (A) 4 %; Neutrophils # (A) 1.5 k/uL (1.3-7.7); Neutrophils % (A) 39 %; Platelet Count 229 k/uL (150-450); RBC 3.95 m/uL (3.80-5.40); RDW 14.4 % (11.5-15.5); WBC 3.8 k/uL (3.8-10.6)
[2017-08-18 06:57] LABS: Anion Gap 8 mmol/L; Blood Urea Nitrogen 25 mg/dL (7-17); Calcium 9.6 mg/dL (8.4-10.2); Carbon Dioxide 30 mmol/L (22-30); Chloride 103 mmol/L (98-107); Glucose 135 mg/dL (74-99); Potassium 4.5 mmol/L (3.5-5.1); Sodium 141 mmol/L (137-145)
[2017-08-18] MEDS: INSULIN ASPART 100 UNIT/ML 1 ML 10 ML VIAL SQ SCH ×7 (07:03→22:36)
[2017-08-18] MEDS: ALBUTEROL NEBULIZED 2.5 MG/3 ML INHALATION PRN ×2 (08:05→15:28)
[2017-08-18] MEDS: cefTRIAXone IN SWFI 1,000 MG/10 ML SYRINGE IVP SCH (08:35)
[2017-08-18] MEDS: NICOTINE 14MG/24HR PATCH TRANSDERM SCH (08:35)
[2017-08-18] MEDS: CYANOCOBALAMIN 500 MCG TAB PO SCH (08:36)
[2017-08-18] MEDS: VENLAFAXINE HCL ER 75 MG CAP PO SCH (08:36)
[2017-08-18] MEDS: HEPARIN SODIUM,PORCINE 5,000 UNIT/ML 1 ML VIAL SQ SCH ×2 (08:36→22:35)
[2017-08-18] MEDS: CARIPRAZINE HCL 1.5 MG PO SCH (08:36)
[2017-08-18] MEDS: LEVOTHYROXINE 100 MCG TAB PO SCH (08:37)
[2017-08-18] MEDS: CLOPIDOGREL 75 MG TAB PO SCH (08:37)
[2017-08-18] MEDS: LEVOTHYROXINE 25 MCG TAB PO SCH (08:37)
[2017-08-18] MEDS: metFORMIN 500 MG TAB PO SCH ×2 (08:38→22:35)
[2017-08-18] MEDS: LORATADINE 10 MG TAB PO SCH (08:38)
[2017-08-18] MEDS: MULTIVITAMINS, THERA 1 EACH TAB PO SCH (08:38)
[2017-08-18] MEDS: PANTOPRAZOLE 40 MG TABLET PO SCH ×2 (08:38→22:35)
[2017-08-18] MEDS: ATORVASTATIN 80 MG TAB PO SCH (08:38)
[2017-08-18 12:12] LABS: Glucose,Whole Blood 312 mg/dL (75-99)
[2017-08-18] MEDS: INSULIN DETEMIR 100 UNIT/ML 10 ML VIAL SQ SCH ×2 (13:04→22:36)
[2017-08-18 17:18] LABS: Glucose,Whole Blood 243 mg/dL (75-99)
--- NOTE | 2017-08-18 18:04 | P.PN ---
Subjective Progress Note Date: 08/18/17 Progress note being dictated for Dr. Hill. Interval history: This is a 57-year-old female admitted with uncontrolled diabetes mellitus type 2. Hemoglobin A1c 18.1. Blood sugars uncontrolled ranging from 140s to low 300s. Denies chest pain, palpitations. Objective - Vital Signs Vital signs: Vital Signs Temp 98.7 F 08/18/17 16:22 Pulse 94 08/18/17 16:22 Resp 19 08/18/17 16:22 BP 146/74 08/18/17 16:22 Pulse Ox 97 08/18/17 16:22 Intake & Output 08/17/17 08/18/17 08/18/17 18:59 06:59 18:59 Intake Total 600 400 Output Total 300 1700 900 Balance 300 -1300 -900 Weight 51.5 kg Intake: IV 400 Sodium Chloride 0.9% 1, 400 000 ml @ 50 mls/hr IV . Q20H DURGA Rx#:[id number] Oral 600 Output: Urine 300 1700 900 Other: Voiding Method Toilet Toilet # Voids 2 - Exam PHYSICAL EXAM: VITAL SIGNS: As above GENERAL: Sitting up in bed, no acute distress HEENT: Conjunctivae normal. eyes normal. Oral mucosa moist NECK: No JVD. No thyroid enlargement. No LNs CARDIOVASCULAR: S1, S2 muffled. No murmur RESPIRATION: Breath sounds diminished in the bases. No rhonchi or crackles. ABDOMEN: Soft, nontender. No guarding. no masses palpable.Bowel sounds heard. LEGS: No edema. no swelling PSYCHIATRY: Alert and oriented -3, mood and affect normal. NERVOUS SYSTEM: Cranial N 2-12 grossly normal. Moves all 4 limbs. Diffuse weakness No focal deficits. Joints: No active swelling. No inflammation. - Labs CBC & Chem 7: 08/18/17 05:31 08/18/17 05:31 Labs: Abnormal Lab Results - Last 24 Hours (Table) 08/17/17 08/17/17 08/18/17 Range/Units 20:52 22:05 05:31 BUN 25 H (7-17) mg/dL Glucose 135 H (74-99) mg/dL POC Glucose (mg/dL) 195 H 316 H (75-99) mg/dL 08/18/17 08/18/17 08/18/17 Range/Units 06:02 11:48 17:13 BUN (7-17) mg/dL Glucose (74-99) mg/dL POC Glucose (mg/dL) 143 H 312 H 243 H (75-99) mg/dL Microbiology - Last 24 Hours (Table) 08/15/17 13:54 Urine Culture - Final Urine,Voided Enterobacter aerogenes Assessment and Plan Assessment: 1. Brittle Diabetes mellitus type 2, uncontrolled, hemoglobin A1c 18.1 2. Hypokalemia, resolved 3. No evidence of ketosis 4. COPD 5. CVA, TIA 6. Gastroesophageal reflux disease 7. Hyperlipidemia 8. Hypertension 9. CAD, history of 10. History of renal cell carcinoma of the left 11. Chronic back pain, degenerative joint disease Plan: Continue current medication regime ,monitoring and symptomatic treatment. Levemir increased to 20 units twice a day, 6 units a pre-meal insulin in addition to sliding scale. Close monitoring of Accu-Cheks. Patient may be transferred off telemetry unit to [facility]. Discharge planning in progress for tomorrow. The impression and plan of care has been dictated as directed. : I performed a history and examination of this patient, discussed the same with the dictator. I agree with the dictator's note ,documented as a scribe. Any additional findings or plans will be noted.
[2017-08-18 21:41] LABS: Glucose,Whole Blood 208 mg/dL (75-99)
[2017-08-18] MEDS: ASPIRIN 81 MG PO SCH (22:35)
[2017-08-18] MEDS: TEMAZEPAM 15 MG CAP PO PRN (22:40)
[2017-08-19] MEDS: SODIUM CHLORIDE 0.9% 1,000 ML IV SCH (01:39)
[2017-08-19 07:27] LABS: Glucose,Whole Blood 86 mg/dL (75-99)
[2017-08-19 07:33] LABS: Basophils % (A) 1 %; Eosinophils # (A) 0.2 k/uL (0-0.7); Eosinophils % (A) 4 %; HCT 35.1 % (34.0-46.0); HGB 11.7 gm/dL (11.4-16.0); Lymphocytes # (A) 1.8 k/uL (1.0-4.8); Lymphocytes % (A) 47 %; MCH 29.8 pg (25.0-35.0); MCHC 33.3 g/dL (31.0-37.0); MCV 89.5 fL (80.0-100.0); Mean Platelet Volume 7.2; Monocytes # (A) 0.2 k/uL (0-1.0); Monocytes % (A) 5 %; Neutrophils # (A) 1.6 k/uL (1.3-7.7); Neutrophils % (A) 41 %; Platelet Count 237 k/uL (150-450); RBC 3.92 m/uL (3.80-5.40); RDW 14.4 % (11.5-15.5); WBC 3.8 k/uL (3.8-10.6)
[2017-08-19] MEDS: INSULIN ASPART 100 UNIT/ML 1 ML 10 ML VIAL SQ SCH ×4 (07:33→13:44)
[2017-08-19 07:44] VITALS: BP 138/90; PULSE 92; RESP 18; TEMP 97.6
[2017-08-19 07:47] LABS: Anion Gap 8 mmol/L; Blood Urea Nitrogen 24 mg/dL (7-17); Calcium 9.7 mg/dL (8.4-10.2); Carbon Dioxide 30 mmol/L (22-30); Chloride 106 mmol/L (98-107); Glucose 84 mg/dL (74-99); Potassium 4.9 mmol/L (3.5-5.1); Sodium 144 mmol/L (137-145)
[2017-08-19] MEDS: ALPRAZolam 0.25 MG TAB PO PRN (08:25)
[2017-08-19] MEDS: NICOTINE 14MG/24HR PATCH TRANSDERM SCH (08:26)
[2017-08-19] MEDS: CLOPIDOGREL 75 MG TAB PO SCH (08:26)
[2017-08-19] MEDS: cefTRIAXone IN SWFI 1,000 MG/10 ML SYRINGE IVP SCH (08:26)
[2017-08-19] MEDS: VENLAFAXINE HCL ER 75 MG CAP PO SCH (08:26)
[2017-08-19] MEDS: HEPARIN SODIUM,PORCINE 5,000 UNIT/ML 1 ML VIAL SQ SCH (08:26)
[2017-08-19] MEDS: metFORMIN 500 MG TAB PO SCH (08:27)
[2017-08-19] MEDS: MULTIVITAMINS, THERA 1 EACH TAB PO SCH (08:27)
[2017-08-19] MEDS: LORATADINE 10 MG TAB PO SCH (08:27)
[2017-08-19] MEDS: PANTOPRAZOLE 40 MG TABLET PO SCH (08:27)
[2017-08-19] MEDS: CYANOCOBALAMIN 500 MCG TAB PO SCH (08:28)
[2017-08-19] MEDS: ATORVASTATIN 80 MG TAB PO SCH (08:29)
[2017-08-19] MEDS: INSULIN DETEMIR 100 UNIT/ML 10 ML VIAL SQ SCH (08:29)
[2017-08-19] MEDS: CARIPRAZINE HCL 1.5 MG PO SCH (08:30)
[2017-08-19] MEDS: LEVOTHYROXINE 100 MCG TAB PO SCH (09:01)
[2017-08-19] MEDS: LEVOTHYROXINE 25 MCG TAB PO SCH (09:01)
[2017-08-19 12:30] LABS: Glucose,Whole Blood 128 mg/dL (75-99)
--- NOTE | 2017-08-19 23:45 | DS ---
DISCHARGE SUMMARY DATE OF SERVICE: 08/19/2017 FINAL DIAGNOSES: 1. Brittle diabetes mellitus, type 2, uncontrolled, with hyperglycemia. Hemoglobin A1c 18.1. 2. Hypokalemia, resolved. 3. No evidence of ketosis. 4. Chronic obstructive pulmonary disease. 5. Cerebrovascular accident, transient ischemic attack. 6. History of gastroesophageal reflux disease. 7. Hyperlipidemia. 8. Hypertension. 9. Coronary artery disease history. 10.History of renal cell carcinoma on the left. 11.Chronic back pain, degenerative joint disease. DISCHARGE DISPOSITION: The patient will be discharged in stable condition with guarded prognosis. HISTORY OF PRESENT ILLNESS: This 57-year-old woman with a past medical history of multiple medical problems was admitted with diabetes mellitus and hyperglycemia. There was no evidence of ketosis. Treated with adjust dosage of insulin. The patient improved significantly. Because of the brittleness of diabetes, also recommend diabetic education outpatient in the outpatient setting as well as possibly consultation for an insulin pump. On exam, vitals are stable. CARDIOVASCULAR SYSTEM: S1, S2 muffled. ABDOMEN: Soft. NERVOUS SYSTEM: No focal deficit. DISCHARGE ADVICE AND MEDICATIONS: 1. Diet is cardiac. 2. Activity limited until followup. 3. Follow up with Dr. Schroeder in 2 to 3 days with Accu-Cheks before meals and at bedtime. 4. Follow up with Endocrine, Dr. Wahl. 5. Ventolin HFA 2 puffs q.i.d. p.r.n. 6. Ecotrin 81 mg at bedtime. 7. Lipitor 80 mg p.o. daily. 8. Butalbital 1 tablet b.i.d. p.r.n. 9. Cariprazine 1.5 mg p.o. daily. 10.Ceftin 500 mg p.o. b.i.d. for 5 days. 11.Plavix 75 mg p.o. daily. 12.Vitamin B12 1000 mg daily. 13.Flexeril 10 mg b.i.d. p.r.n. 14.Insulin Lantus 20 units subcutaneously b.i.d. 15.Humalog scale. 16.Humalog 6 units t.i.d. plus scale. Hold if Accu-Chek is less than 120. 17.Synthroid 225 mcg p.o. daily. 18.Claritin 10 mg p.o. each morning. 19.Antivert 12.5 to 25 mg p.r.n. 20.Glucophage 500 mg p.o. b.i.d. 21.Multivitamins 1 p.o. daily. 22.Habitrol 14 daily. 23.Prilosec 20 mg p.o. b.i.d. 24.Effexor XR 225 mg p.o. daily. MMODL / IJN: [id number] /
== END 2017-08-19 14:59 | disposition home or self-care (01) | DRG 638 ==
LOC: EC 12:57 → 6SEL 15:14 → 4MS4W 08-18 16:04
PROVIDERS: ADMIT Hospitalist; ATTEND Hospitalist
DX: E11.65 Type 2 diabetes mellitus with hyperglycemia (principal); N39.0 Urinary tract infection, site not specified; E03.9 Hypothyroidism, unspecified; B96.89 Other specified bacterial agents as the cause of diseases classified elsewhere; E78.5 Hyperlipidemia, unspecified; E87.6 Hypokalemia; F32.9 Major depressive disorder, single episode, unspecified; F41.9 Anxiety disorder, unspecified; G89.29 Other chronic pain; I10 Essential (primary) hypertension; I25.10 Atherosclerotic heart disease of native coronary artery without angina pectoris; I25.2 Old myocardial infarction; J44.9 Chronic obstructive pulmonary disease, unspecified; K21.9 Gastro-esophageal reflux disease without esophagitis; Z82.49 Family history of ischemic heart disease and other diseases of the circulatory system; Z85.528 Personal history of other malignant neoplasm of kidney; Z86.73 Personal history of transient ischemic attack (TIA), and cerebral infarction without residual deficits; Z87.891 Personal history of nicotine dependence; Z90.49 Acquired absence of other specified parts of digestive tract; M19.90 Unspecified osteoarthritis, unspecified site; Z88.2 Allergy status to sulfonamides; Z88.5 Allergy status to narcotic agent; Z91.030 Bee allergy status; Z91.040 Latex allergy status
CPT/HCPCS: 36415; 80048; 80051; 80053; 81003; 82009; 82565; 82947; 83036; 83735; 84100; 84520; 85025; 87077; 87086; 87186; 90686; 93005; 94640; 96360; 96361; 99285

== ENCOUNTER → 2017-08-26 | Outpatient (CLI) | payer OTHER | END | disposition home or self-care (01) | LOC: DBWHC3 14:11 | PROVIDERS: ATTEND Internal Medicine | DX: E11.65 Type 2 diabetes mellitus with hyperglycemia (principal); Z79.84 Long term (current) use of oral hypoglycemic drugs | CPT/HCPCS: G0108 ×2 ==

== ENCOUNTER 2017-08-28 17:03 | Emergency (ER) | payer OTHER ==
[2017-08-28 17:08] VITALS: BP 168/81; RESP 18; TEMP 96.7
[2017-08-28] MEDS ORDERED: ACETAMINOPHEN TAB 325 MG TAB PO STA (17:24)
--- NOTE | 2017-08-28 17:42 | XR ---
EXAMINATION TYPE: XR ankle complete RT DATE OF EXAM: 08/28/2017 COMPARISON: 03/29/2014 HISTORY: Pain TECHNIQUE: 3 views FINDINGS: Ankle mortise is anatomic. I see no fracture nor dislocation. There is a plantar calcaneal spur. IMPRESSION: Calcaneal spurring. No fracture. No adverse change compared to old exam.
--- NOTE | 2017-08-28 17:45 | XR ---
EXAMINATION TYPE: XR foot complete RT DATE OF EXAM: 08/28/2017 COMPARISON: 03/29/2014 HISTORY: Pain TECHNIQUE: 3 views. Findings I see no fracture nor dislocation. Metatarsals are intact. There are no erosions. I see no focal bon e destruction. There is a plantar calcaneal spur. IMPRESSION: Negative right foot exam.
--- NOTE | 2017-08-28 17:51 | ED ---
Lower Extremity Injury HPI - General Chief Complaint: Extremity Injury, Lower Stated Complaint: Ankle pain Time Seen by Provider: 08/28/17 17:16 Source: patient Mode of arrival: wheelchair Limitations: no limitations - History of Present Illness Initial Comments: 57-year-old female patient presents to the emergency department today for complaints of right ankle pain. Patient states that earlier today she twisted her ankle twice. States that after she went home she felt like her ankle gave out on her and she fell down. She denies hitting her head or losing consciousness with the fall. She denies any neck or back pain. States that she is continuing to have pain to the right ankle. She denies any numbness or tingling. Denies any swelling of the foot. Denies any previous injury to the ankle. Patient denies any headache, chest pain, shortness of breath, dizziness, weakness, abdominal pain, nausea, vomiting, or difficulties with bowel movements or urination. - Related Data Home Medications Medication Instructions Recorded Confirmed Levothyroxine Sodium [Synthroid] 200 mcg PO DAILY 04/28/15 08/28/17 Aspirin [Adult Low Dose Aspirin EC] 81 mg PO HS 09/04/16 08/28/17 Albuterol Inhaler [Ventolin Hfa 2 puff INHALATION RT-Q6H PRN 10/21/16 08/28/17 Inhaler] Loratadine [Claritin] 10 mg PO QAM 10/21/16 08/28/17 Venlafaxine HCl [Venlafaxine HCl 225 mg PO DAILY 10/21/16 08/28/17 ER] Omeprazole [PriLOSEC] 20 mg PO BID 01/07/17 08/28/17 Butalbital/Aspirin/Caffeine 1 tab PO BID PRN 05/05/17 08/28/17 [Hstufw-Tkmaaqx-Gvkixcly 50-325-40 mg] Cariprazine HCl [Vraylar] 1.5 mg PO DAILY 05/05/17 08/28/17 Cyclobenzaprine [Flexeril] 10 mg PO BID PRN 05/05/17 08/28/17 Atorvastatin [Lipitor] 80 mg PO DAILY 07/31/17 08/28/17 Clopidogrel [Plavix] 75 mg PO DAILY 07/31/17 08/28/17 Levothyroxine Sodium [Synthroid] 25 mcg PO DAILY 07/31/17 08/28/17 Meclizine [Antivert] 12.5 - 25 mg PO TID PRN 07/31/17 08/28/17 metFORMIN HCL [Glucophage] 500 mg PO BID 07/31/17 08/28/17 Cyanocobalamin (Vitamin B-12) 1,000 mcg PO DAILY 08/15/17 08/28/17 [Vitamin B-12] Multivitamins, Thera [Multivitamin 1 tab PO DAILY 08/15/17 08/28/17 (formulary)] Previous Rx's Medication Instructions Recorded INSULIN LISPRO (HumaLOG) [humaLOG] 0 unit SQ ACHS #1 vial 08/19/17 INSULIN LISPRO (HumaLOG) [humaLOG] 6 unit SQ AC-TID #0 08/19/17 Insulin Glargine,Hum.rec.anlog 20 unit SQ BID #1 insuln.pen 08/19/17 [Lantus Solostar] Allergies Allergy/AdvReac Type Severity Reaction Status Date / Time grass pollen Allergy Unknown Verified 08/28/17 17:12 latex Allergy Rash/Hives Verified 08/28/17 17:12 Sulfa (Sulfonamide Allergy Rash/Hives/ Verified 08/28/17 17:12 Antibiotics) Swelling venom-honey bee Allergy Anaphylaxis Verified 08/28/17 17:12 morphine AdvReac Decreased Verified 08/28/17 17:12 Blood Pressure prochlorperazine edisylate AdvReac Vomiting Verified 08/28/17 17:12 [From Compazine] prochlorperazine maleate AdvReac Vomiting Verified 08/28/17 17:12 [From Compazine] Review of Systems ROS Statement: Those systems with pertinent positive or pertinent negative responses have been documented in the HPI. ROS Other: All systems not noted in ROS Statement are negative. Past Medical History Past Medical History: COPD, CVA/TIA, Diabetes Mellitus, GERD/Reflux, Hyperlipidemia, Hypertension, Myocardial Infarction ([place]), Thyroid Disorder Additional Past Medical History / Comment(s): Open incision to abdomen.Pt recently admitted to [facility] on 09/16/16 with SBO with surgery/possible septic emboli with cavitary lesions bilateral lungs. Other hx: left renal cell carcinoma status post partial nephrectomy, CVA 4, diabetes mellitus, COPD, hypothyroidism, chronic back pain, urine checked infection with sepsis secondary to ESBL producing E. coli in April 2016 requiring a PICC line insertion for IV antibiotics, coronary artery disease with previous [place], restless leg syndrome, peripheral neuropathy, hypertension, hypothyroidism, hyperlipidemia, GE reflux, depression Last Myocardial Infarction Date:: 2012 History of Any Multi-Drug Resistant Organisms: ESBL, VRE Date of last positivie culture/infection: 05/07/16 ESBL, 05/15/16 VRE MDRO Source:: URINE E.COLI, EC GALLINARUM Past Surgical History: Appendectomy, Bowel Resection, Section, Heart Catheterization Additional Past Surgical History / Comment(s): 09/23/16 exploratory laparotomy, lysis of adhesions bowel resection d/t obstruction evacuation incarcerated food bezoar/repair incarcerated incisional hernia with abdominal washout. Other sx hx: thyroidectomy(non functioning) heart cath 06-18-12 100% occluded LAD unable to stent, partial nephrectomy for a left kidney renal cell carcinoma, PICC line insertion (since removed), colonoscopy, bilateral cataract removal with lens implants, 2 C-Sections. Past Anesthesia/Blood Transfusion Reactions: No Reported Reaction Past Psychological History: Anxiety, Depression Smoking Status: Current every day smoker Past Alcohol Use History: Rare Past Drug Use History: None Reported - Past Family History Father Family Medical History: Myocardial Infarction ([place]) Additional Family Medical History / Comment(s): from [place] at age 48 Mother Family Medical History: Cancer Additional Family Medical History / Comment(s): maeve breasts removed d/t cancer, hysterectomy d/t cancer General Exam Limitations: no limitations General appearance: alert, in no apparent distress, other (This is a well- developed, well-nourished adult female patient in no acute distress. Vital signs upon presentation are temperature 96.7F, pulse 116, respirations 18, blood pressure 168/81, pulse ox 100% on room air.) Eye exam: Present: normal appearance, PERRL, EOMI. Absent: scleral icterus, conjunctival injection, periorbital swelling Neck exam: Present: normal inspection, full ROM, other (Nontender, no step-off, no deformity to firm midline palpation of the posterior cervical spine. Full range of motion without pain or limitation.). Absent: tenderness, meningismus, lymphadenopathy Respiratory exam: Present: normal lung sounds bilaterally. Absent: respiratory distress, wheezes, rales, rhonchi, stridor Cardiovascular Exam: Present: regular rate, normal rhythm, normal heart sounds. Absent: systolic murmur, diastolic murmur, rubs, gallop, clicks Extremities exam: Present: normal inspection, full ROM, tenderness (Tenderness over the right lateral malleolus. Tenderness over the base of the fifth metatarsal.), normal capillary refill, other (Skin to the right ankle and foot is pink, warm, and dry. Cap refills less than 3 seconds. Pedal and posttibial pulses are 2+ and equal bilaterally.). Absent: pedal edema, joint swelling, calf tenderness Back exam: Present: normal inspection, other (Nontender, no step-off, no deformity to firm midline palpation of the thoracic and lumbar vertebrae. Full range of motion without pain or limitation.). Absent: vertebral tenderness Neurological exam: Present: alert, oriented X3, CN II-XII intact Psychiatric exam: Present: normal affect, normal mood Skin exam: Present: warm, dry, intact, normal color. Absent: rash Course Vital Signs 08/28/17 08/28/17 17:04 18:03 Temperature 96.7 F L Pulse Rate 116 H 89 Respiratory 18 18 Rate Blood Pressure 168/81 O2 Sat by Pulse 100 98 Oximetry Medical Decision Making - Medical Decision Making 57-year-old female patient presents to the emergency department today for evaluation of right ankle and foot pain. Physical examination was relatively unremarkable other than some tenderness over the right lateral malleolus. Distal pulses are intact. Neurovascular status was intact. X-ray of the ankle and foot showed no acute osseous abnormalities. I did inform patient she most likely is suffering from a sprain. She'll be placed in an Pedro wrap and instructed to rest, ice, and elevate the extremity. She was instructed to obtain repeat x-rays in 7-10 days if her symptoms are not improved. She is instructed to return here immediately for any other new, worsening, or concerning symptoms. She verbalizes understanding and agrees this plan. - Radiology Data Radiology results: report reviewed, image reviewed 3 views of the right foot are obtained and show no fracture nor dislocation. Metatarsals are intact. There are no erosions. I see no focal bone destruction. There is a plantar calcaneal spur. Impression by Dr. Braxton shows negative) exam. 3 views of the right ankle are obtained. Ankle mortise is anatomic. I see no fracture nor dislocation. There is a plantar calcaneal spur. Impression by Dr. Braxton shows calcaneal spurring. No fracture. No adverse change compared to old exam. Disposition Clinical Impression: Right ankle sprain Disposition: HOME SELF-CARE Condition: Good Instructions: Ankle Sprain (ED) Additional Instructions: Use splint for comfort. Keep leg elevated, apply ice, and rest the ankle. Ice 20 minutes at a time at least 4 times daily. Follow-up with your primary care physician for recheck in 1-2 days. Return here immediately for any new, worsening, or concerning symptoms. Referrals: Kiah Schroeder MD [Primary Care Provider] - 1-2 days Time of Disposition: 17:51
[2017-08-28 18:04] VITALS: PULSE 89
== END 2017-08-28 18:22 | disposition home or self-care (01) ==
LOC: EC 17:03
DX: S93.401A Sprain of unspecified ligament of right ankle, initial encounter (principal); E11.9 Type 2 diabetes mellitus without complications; K21.9 Gastro-esophageal reflux disease without esophagitis; E78.5 Hyperlipidemia, unspecified; I10 Essential (primary) hypertension; I25.2 Old myocardial infarction; E03.9 Hypothyroidism, unspecified; F41.9 Anxiety disorder, unspecified; F32.9 Major depressive disorder, single episode, unspecified; F17.200 Nicotine dependence, unspecified, uncomplicated; Z86.73 Personal history of transient ischemic attack (TIA), and cerebral infarction without residual deficits; Z85.528 Personal history of other malignant neoplasm of kidney; Z90.5 Acquired absence of kidney; Z98.890 Other specified postprocedural states; Z79.02 Long term (current) use of antithrombotics/antiplatelets; Z79.82 Long term (current) use of aspirin; Z79.84 Long term (current) use of oral hypoglycemic drugs; Z79.899 Other long term (current) drug therapy; Z88.2 Allergy status to sulfonamides; Z88.5 Allergy status to narcotic agent; Z88.8 Allergy status to other drugs, medicaments and biological substances; Z91.030 Bee allergy status; Z91.040 Latex allergy status; Z91.048 Other nonmedicinal substance allergy status; X50.1XXA Overexertion from prolonged static or awkward postures, initial encounter; W18.39XA Other fall on same level, initial encounter; Y92.009 Unspecified place in unspecified non-institutional (private) residence as the place of occurrence of the external cause
CPT/HCPCS: 99283

== ENCOUNTER 2017-09-08 18:45 | Emergency (ER) | payer OTHER ==
--- NOTE | 2017-09-08 19:41 | XR ---
EXAMINATION TYPE: XR chest 2V DATE OF EXAM: 09/08/2017 COMPARISON: 05/11/2017 HISTORY: Chest pain TECHNIQUE: Frontal and lateral views of the chest are obtained. FINDINGS: Heart and mediastinum are normal. There is a 2 cm calcified granuloma in the left lower lo be. The other lung robertson are clear. There is no pleural effusion. Bony thorax is intact. IMPRESSION: No active cardiopulmonary disease no change.
[2017-09-08 19:46] LABS: Basophils % (A) 1 %; Eosinophils # (A) 0.2 k/uL (0-0.7); Eosinophils % (A) 5 %; HCT 34.8 % (34.0-46.0); HGB 11.4 gm/dL (11.4-16.0); Lymphocytes # (A) 2.1 k/uL (1.0-4.8); Lymphocytes % (A) 44 %; MCH 30.1 pg (25.0-35.0); MCHC 32.7 g/dL (31.0-37.0); Mean Platelet Volume 6.8; Monocytes # (A) 0.2 k/uL (0-1.0); Monocytes % (A) 4 %; Neutrophils # (A) 2.1 k/uL (1.3-7.7); Neutrophils % (A) 45 %; Platelet Count 299 k/uL (150-450); RBC 3.78 m/uL (3.80-5.40); RDW 14.5 % (11.5-15.5); WBC 4.8 k/uL (3.8-10.6)
[2017-09-08 19:51] LABS: ALT 39 U/L (9-52); AST 29 U/L (14-36); Alkaline Phosphatase 109 U/L (38-126); Anion Gap 13 mmol/L; Blood Urea Nitrogen 18 mg/dL (7-17); Calcium 9.2 mg/dL (8.4-10.2); Carbon Dioxide 23 mmol/L (22-30); Chloride 99 mmol/L (98-107); Magnesium 1.9 mg/dL (1.6-2.3); Potassium 4.7 mmol/L (3.5-5.1); Sodium 135 mmol/L (137-145); Total Bilirubin 0.2 mg/dL (0.2-1.3); Total Protein 6.5 g/dL (6.3-8.2)
[2017-09-08 19:54] LABS: Glucose 471 mg/dL (74-99)
[2017-09-08 19:56] LABS: Prothrombin Time 9.6 sec (9.0-12.0)
[2017-09-08 20:01] LABS: Partial Thromboplastin Time 22.3 sec (22.0-30.0)
[2017-09-08 20:13] LABS: Creatine Kinase 204 U/L (30-135)
[2017-09-08 20:25] LABS: Troponin I <0.012 ng/mL (0.000-0.034)
[2017-09-08 20:27] LABS: Creatine Kinase MB 2.6 ng/mL (0.0-2.4)
[2017-09-08] MEDS ORDERED: SODIUM CHLORIDE 0.9% 1,000 ML IV ONE (21:03)
[2017-09-08] MEDS ORDERED: INSULIN REGULAR 100 UNIT/ML VIAL IV ONE (21:03)
[2017-09-08] MEDS ORDERED: ALBUTEROL NEBULIZED 2.5 MG/3 ML INHALATION STA (21:06)
[2017-09-08] MEDS ORDERED: ASPIRIN 81 MG PO STA (21:06)
--- NOTE | 2017-09-08 21:09 | ED ---
Chest Pain HPI - General Chief Complaint: Chest Pain Stated Complaint: CHEST PAIN, HAS HEART Hx Time Seen by Provider: 09/08/17 20:43 Source: patient, RN notes reviewed, old records reviewed Mode of arrival: ambulatory Limitations: no limitations - History of Present Illness Initial Comments: This is a 57-year-old female presents to the emergency department today chief complaint of right sided chest pain onset 1 hour ago. Patient reports that she was outside gardening when this occurred. She states that it's right-sided chest pain in her ribs and sensory and reports when she moves and presses on her ribs the pain is reproducible. She also reports though at this time she has some bilateral hands and arm numbness and tingling. She does have a history of heart attacks and strokes. She reports that she has nausea and is felt a little bit dizzy. - Related Data Home Medications Medication Instructions Recorded Confirmed Levothyroxine Sodium [Synthroid] 200 mcg PO DAILY 04/28/15 09/08/17 Aspirin [Adult Low Dose Aspirin EC] 81 mg PO HS 09/04/16 09/08/17 Albuterol Inhaler [Ventolin Hfa 2 puff INHALATION RT-Q6H PRN 10/21/16 09/08/17 Inhaler] Loratadine [Claritin] 10 mg PO QAM 10/21/16 09/08/17 Venlafaxine HCl [Venlafaxine HCl 225 mg PO DAILY 10/21/16 09/08/17 ER] Omeprazole [PriLOSEC] 20 mg PO BID 01/07/17 09/08/17 Butalbital/Aspirin/Caffeine 1 tab PO BID PRN 05/05/17 09/08/17 [Pogunc-Pmoibbw-Wbtqaeqq 50-325-40 mg] Cariprazine HCl [Vraylar] 1.5 mg PO DAILY 05/05/17 09/08/17 Cyclobenzaprine [Flexeril] 10 mg PO BID PRN 05/05/17 09/08/17 Atorvastatin [Lipitor] 80 mg PO DAILY 07/31/17 09/08/17 Clopidogrel [Plavix] 75 mg PO DAILY 07/31/17 09/08/17 Levothyroxine Sodium [Synthroid] 25 mcg PO DAILY 07/31/17 09/08/17 Meclizine [Antivert] 12.5 - 25 mg PO TID PRN 07/31/17 09/08/17 metFORMIN HCL [Glucophage] 500 mg PO BID 07/31/17 09/08/17 Cyanocobalamin (Vitamin B-12) 1,000 mcg PO DAILY 08/15/17 09/08/17 [Vitamin B-12] Multivitamins, Thera [Multivitamin 1 tab PO DAILY 08/15/17 09/08/17 (formulary)] ALPRAZolam [Xanax] 0.125 mg PO BID 09/08/17 09/08/17 Nicotine 14Mg/24Hr Patch [Habitrol 1 patch TRANSDERM DAILY 09/08/17 09/08/17 14Mg/24Hr Patch] hydrOXYzine HCL 10 mg PO HS 09/08/17 09/08/17 Previous Rx's Medication Instructions Recorded INSULIN LISPRO (HumaLOG) [humaLOG] 0 unit SQ ACHS #1 vial 08/19/17 INSULIN LISPRO (HumaLOG) [humaLOG] 6 unit SQ AC-TID #0 08/19/17 Insulin Glargine,Hum.rec.anlog 20 unit SQ BID #1 insuln.pen 08/19/17 [Lantus Solostar] Cyclobenzaprine [Flexeril] 10 mg PO TID #20 tab 09/09/17 Ibuprofen [Motrin] 600 mg PO Q6HR PRN #20 tab 09/09/17 traMADol HCl [Ultram] 50 mg PO Q4H PRN #10 tab 09/09/17 Allergies Allergy/AdvReac Type Severity Reaction Status Date / Time grass pollen Allergy Unknown Verified 09/08/17 20:53 latex Allergy Rash/Hives Verified 09/08/17 20:53 Sulfa (Sulfonamide Allergy Rash/Hives/ Verified 09/08/17 20:53 Antibiotics) Swelling venom-honey bee Allergy Anaphylaxis Verified 09/08/17 20:53 morphine AdvReac Decreased Verified 09/08/17 20:53 Blood Pressure prochlorperazine edisylate AdvReac Vomiting Verified 09/08/17 20:53 [From Compazine] prochlorperazine maleate AdvReac Vomiting Verified 09/08/17 20:53 [From Compazine] Review of Systems ROS Statement: Those systems with pertinent positive or pertinent negative responses have been documented in the HPI. ROS Other: All systems not noted in ROS Statement are negative. EKG Findings - EKG Comments: EKG Findings:: EKG shows sinus tachycardia, possible left atrial enlargement. Left ventricular hypertrophy. Nonspecific T-wave abnormality. Abnormal EKG noted. Ventricular rate of 108 bpm. OR interval 142 ms. QRS duration 80 ms. QT QTc is 366/490 ms. Past Medical History Past Medical History: COPD, CVA/TIA, Diabetes Mellitus, GERD/Reflux, Hyperlipidemia, Hypertension, Myocardial Infarction ([place]), Thyroid Disorder Additional Past Medical History / Comment(s): Open incision to abdomen.Pt recently admitted to [facility] on 09/16/16 with SBO with surgery/possible septic emboli with cavitary lesions bilateral lungs. Other hx: left renal cell carcinoma status post partial nephrectomy, CVA 4, diabetes mellitus, COPD, hypothyroidism, chronic back pain, urine checked infection with sepsis secondary to ESBL producing E. coli in April 2016 requiring a PICC line insertion for IV antibiotics, coronary artery disease with previous [place], restless leg syndrome, peripheral neuropathy, hypertension, hypothyroidism, hyperlipidemia, GE reflux, depression Last Myocardial Infarction Date:: 2012 History of Any Multi-Drug Resistant Organisms: ESBL, VRE Date of last positivie culture/infection: 05/07/16 ESBL, 05/15/16 VRE MDRO Source:: URINE E.COLI, EC GALLINARUM Past Surgical History: Appendectomy, Bowel Resection, Section, Heart Catheterization Additional Past Surgical History / Comment(s): 09/23/16 exploratory laparotomy, lysis of adhesions bowel resection d/t obstruction evacuation incarcerated food bezoar/repair incarcerated incisional hernia with abdominal washout. Other sx hx: thyroidectomy(non functioning) heart cath 113 100% occluded LAD unable to stent, partial nephrectomy for a left kidney renal cell carcinoma, PICC line insertion (since removed), colonoscopy, bilateral cataract removal with lens implants, 2 C-Sections. Past Anesthesia/Blood Transfusion Reactions: No Reported Reaction Past Psychological History: Anxiety, Depression Smoking Status: Former smoker Past Alcohol Use History: Rare Past Drug Use History: None Reported - Past Family History Father Family Medical History: Myocardial Infarction ([place]) Additional Family Medical History / Comment(s): from [place] at age 48 Mother Family Medical History: Cancer Additional Family Medical History / Comment(s): maeve breasts removed d/t cancer, hysterectomy d/t cancer General Exam - General Exam Comments Initial Comments: This is a 57-year-old female. No acute distress. Limitations: no limitations General appearance: alert, in no apparent distress Head exam: Present: atraumatic, normocephalic, normal inspection Eye exam: Present: normal appearance, PERRL, EOMI. Absent: scleral icterus, conjunctival injection, periorbital swelling ENT exam: Present: normal exam, normal oropharynx, mucous membranes moist Neck exam: Present: normal inspection. Absent: tenderness, meningismus, lymphadenopathy Respiratory exam: Present: normal lung sounds bilaterally, chest wall tenderness (Right-sided rib chest wall tenderness.). Absent: respiratory distress, wheezes, rales, rhonchi, stridor Cardiovascular Exam: Present: regular rate, normal rhythm, normal heart sounds. Absent: systolic murmur, diastolic murmur, rubs, gallop, clicks GI/Abdominal exam: Present: soft, normal bowel sounds. Absent: distended, tenderness, guarding, rebound, rigid Extremities exam: Present: normal inspection, full ROM, normal capillary refill. Absent: tenderness, pedal edema, joint swelling, calf tenderness Back exam: Present: normal inspection Neurological exam: Present: alert, oriented X3, CN II-XII intact Psychiatric exam: Present: normal affect, normal mood Skin exam: Present: warm, dry, intact, normal color. Absent: rash Course Vital Signs 09/08/17 09/08/17 09/08/17 18:51 21:55 22:03 Temperature 97.8 F Pulse Rate 108 H 103 H 110 H Respiratory 18 16 16 Rate Blood Pressure 164/84 O2 Sat by Pulse 97 Oximetry 09/08/17 09/09/17 23:37 01:12 Temperature 97.7 F Pulse Rate 103 H 107 H Respiratory 17 16 Rate Blood Pressure 136/78 153/79 O2 Sat by Pulse 98 97 Oximetry Chest Pain MDM - MDM This is a 57-year-old female presents to the emergency department today chief complaint of right sided chest pain onset 1 hour ago. Patient reports that she was outside gardening when this occurred. She states that it's right-sided chest pain in her ribs and sensory and reports when she moves and presses on her ribs the pain is reproducible. Patient EKG shows no acute chagnes from previous. Initial labs are unremarkable. CXR was normal. She is tender to palpation over right ribs. She was given toradol adn norflex and felt somewhat better. Patient had a repeat troponin which was still negative. Discussed placing patient on antiinflammatory medication for rib pain and advised to follow up with PCP. Return parameters discussed. Disposition Clinical Impression: Rib pain on right side Disposition: HOME SELF-CARE Condition: Good Instructions: Costochondritis (ED) Additional Instructions: Patient denies alternate Motrin and Tylenol. Continue to put heat and ice over the area. Follow-up with primary care provider. Return to emergency department if any alarming signs or symptoms occur. Prescriptions: Cyclobenzaprine [Flexeril] 10 mg PO TID #20 tab Ibuprofen [Motrin] 600 mg PO Q6HR PRN #20 tab PRN Reason: Pain traMADol HCl [Ultram] 50 mg PO Q4H PRN #10 tab PRN Reason: Pain Referrals: Kiah Schroeder MD [Primary Care Provider] - 1-2 days Time of Disposition: 00:40
[2017-09-08] MEDS ORDERED: SODIUM CHLORIDE 0.9% 1,000 ML IV SCH (21:15)
[2017-09-08] MEDS ORDERED: KETOROLAC 30 MG/ML 1 ML VIAL IVP STA (22:47)
[2017-09-08] MEDS ORDERED: CYCLOBENZAPRINE 10 MG TAB PO STA (22:48)
[2017-09-08] MEDS ORDERED: ORPHENADRINE 30 MG/ML 2 ML VIAL IVP STA (23:26)
[2017-09-09 01:14] VITALS: BP 153/79; PULSE 107; RESP 16; TEMP 97.7
[2017-09-09 01:15] LABS: Glucose,Whole Blood 179 mg/dL (75-99)
== END 2017-09-09 01:14 | disposition home or self-care (01) ==
LOC: EC 18:45
DX: R07.81 Pleurodynia (principal); E11.9 Type 2 diabetes mellitus without complications; E78.5 Hyperlipidemia, unspecified; I10 Essential (primary) hypertension; I25.2 Old myocardial infarction; E03.9 Hypothyroidism, unspecified; F41.9 Anxiety disorder, unspecified; K21.9 Gastro-esophageal reflux disease without esophagitis; I25.10 Atherosclerotic heart disease of native coronary artery without angina pectoris; Z86.73 Personal history of transient ischemic attack (TIA), and cerebral infarction without residual deficits; Z95.5 Presence of coronary angioplasty implant and graft; Z85.528 Personal history of other malignant neoplasm of kidney; Z87.891 Personal history of nicotine dependence; Z79.82 Long term (current) use of aspirin; Z79.899 Other long term (current) drug therapy; Z79.02 Long term (current) use of antithrombotics/antiplatelets; Z79.84 Long term (current) use of oral hypoglycemic drugs; Z91.048 Other nonmedicinal substance allergy status; Z91.040 Latex allergy status; Z88.2 Allergy status to sulfonamides; Z91.030 Bee allergy status; Z88.5 Allergy status to narcotic agent; Z88.8 Allergy status to other drugs, medicaments and biological substances
CPT/HCPCS: 99285; 96374; 96375; 96361 ×4; 36415 ×2; 94640; 93005; 85379; 80053; 82550; 82553; 83735; 84484; 85025; 85610; 85730; 83036; 71046; J2360; J1885

== ENCOUNTER 2017-10-29 22:22 | Observation (INO) | payer OTHER ==
[2017-10-29] MEDS ORDERED: SODIUM CHLORIDE 0.9% 1,000 ML IV STA (22:37)
[2017-10-29] MEDS ORDERED: ASPIRIN 81 MG PO STA (22:37)
[2017-10-29] MEDS ORDERED: NITROGLYCERIN OINT 1 INCH/GM PACKET TOPICAL STA (22:37)
--- NOTE | 2017-10-29 22:40 | ED ---
General Adult HPI - General Chief complaint: Chest Pain Stated complaint: Chest Pain Time Seen by Provider: 10/29/17 22:25 Source: patient, EMS, RN notes reviewed Mode of arrival: EMS Limitations: no limitations - History of Present Illness Initial comments: Patient is a pleasant 57-year-old female presenting to the emergency department with complaints of chest discomfort. Patient has not felt well for the past few days. Patient has had some chest discomfort that she states is somewhat similar to previous cardiac problems. Patient is having some nausea and sweating. No dyspnea. Discomfort is mild at this time. Patient is also been having some diarrhea. Patient does have some lower back discomfort is well however that is chronic and unchanged. - Related Data Home Medications Medication Instructions Recorded Confirmed Levothyroxine Sodium [Synthroid] 200 mcg PO DAILY 04/28/15 10/29/17 Aspirin [Adult Low Dose Aspirin EC] 81 mg PO HS 09/04/16 10/29/17 Albuterol Inhaler [Ventolin Hfa 2 puff INHALATION RT-Q6H PRN 10/21/16 10/29/17 Inhaler] Loratadine [Claritin] 10 mg PO QAM 10/21/16 10/29/17 Venlafaxine HCl [Venlafaxine HCl 225 mg PO DAILY 10/21/16 10/29/17 ER] Omeprazole [PriLOSEC] 20 mg PO BID 01/07/17 10/29/17 Cariprazine HCl [Vraylar] 1.5 mg PO DAILY 05/05/17 10/29/17 Cyclobenzaprine [Flexeril] 10 mg PO BID PRN 05/05/17 10/29/17 Clopidogrel [Plavix] 75 mg PO DAILY 07/31/17 10/29/17 Meclizine [Antivert] 12.5 - 25 mg PO TID PRN 07/31/17 10/29/17 metFORMIN HCL [Glucophage] 500 mg PO BID 07/31/17 10/29/17 Cyanocobalamin (Vitamin B-12) 1,000 mcg PO DAILY 08/15/17 10/29/17 [Vitamin B-12] Multivitamins, Thera [Multivitamin 1 tab PO DAILY 08/15/17 10/29/17 (formulary)] ALPRAZolam [Xanax] 0.125 mg PO BID 09/08/17 10/29/17 Nicotine 14Mg/24Hr Patch [Habitrol 1 patch TRANSDERM DAILY 09/08/17 10/29/17 14Mg/24Hr Patch] hydrOXYzine HCL 10 mg PO HS PRN 09/08/17 10/29/17 Albuterol Nebulized (Conc) 2.5 mg INHALATION RT-Q6H PRN 10/29/17 10/29/17 [Ventolin Nebulized (Conc)] Buta/APAP/Caf/Cod 84-744-88-30 1 cap PO Q4H PRN 10/29/17 10/29/17 [Fioricet w/Cod 35-607-06-30MG] INSULIN LISPRO (HumaLOG) [humaLOG] See Protocol SQ ACHS 10/29/17 10/29/17 Mupirocin 2% Oint [Bactroban 2% 1 applic TOPICAL TID PRN 10/29/17 10/29/17 Oint] Pioglitazone [Actos] 15 mg PO DAILY 10/29/17 10/29/17 Promethazine 6.25MG/5Ml [Phenergan 6.25 mg PO Q6H PRN 10/29/17 10/29/17 Syrup] amLODIPine/ATORVASTATIN [Caduet 10 1 tab PO HS 10/29/17 10/29/17 mg-80 mg Tablet] Previous Rx's Medication Instructions Recorded INSULIN LISPRO (HumaLOG) [humaLOG] 6 unit SQ AC-TID #0 08/19/17 Insulin Glargine,Hum.rec.anlog 20 unit SQ BID #1 insuln.pen 08/19/17 [Lantus Solostar] Allergies Allergy/AdvReac Type Severity Reaction Status Date / Time grass pollen Allergy Unknown Verified 10/29/17 22:50 latex Allergy Rash/Hives Verified 10/29/17 22:50 Sulfa (Sulfonamide Allergy Rash/Hives/ Verified 10/29/17 22:50 Antibiotics) Swelling venom-honey bee Allergy Anaphylaxis Verified 10/29/17 22:50 morphine AdvReac Decreased Verified 10/29/17 22:50 Blood Pressure prochlorperazine edisylate AdvReac Vomiting Verified 10/29/17 22:50 [From Compazine] prochlorperazine maleate AdvReac Vomiting Verified 10/29/17 22:50 [From Compazine] Review of Systems ROS Statement: Those systems with pertinent positive or pertinent negative responses have been documented in the HPI. ROS Other: All systems not noted in ROS Statement are negative. Constitutional: Denies: fever Eyes: Denies: eye pain ENT: Denies: ear pain Respiratory: Denies: cough Cardiovascular: Reports: chest pain Endocrine: Reports: fatigue Gastrointestinal: Reports: nausea, diarrhea Genitourinary: Denies: dysuria Musculoskeletal: Reports: back pain (Chronic) Skin: Denies: rash Past Medical History Past Medical History: COPD, CVA/TIA, Diabetes Mellitus, GERD/Reflux, Hyperlipidemia, Hypertension, Myocardial Infarction (PR), Thyroid Disorder Additional Past Medical History / Comment(s): Open incision to abdomen.Pt recently admitted to [facility] on 09/16/16 with SBO with surgery/possible septic emboli with cavitary lesions bilateral lungs. Other hx: left renal cell carcinoma status post partial nephrectomy, CVA 4, diabetes mellitus, COPD, hypothyroidism, chronic back pain, urine checked infection with sepsis secondary to ESBL producing E. coli in April 2016 requiring a PICC line insertion for IV antibiotics, coronary artery disease with previous PR, restless leg syndrome, peripheral neuropathy, hypertension, hypothyroidism, hyperlipidemia, GE reflux, depression Last Myocardial Infarction Date:: 2012 History of Any Multi-Drug Resistant Organisms: ESBL, MRSA, VRE Date of last positivie culture/infection: 05/07/16 ESBL, 05/15/16 VRE MDRO Source:: URINE E.COLI, EC GALLINARUM Past Surgical History: Appendectomy, Bowel Resection, Section, Heart Catheterization Additional Past Surgical History / Comment(s): 09/23/16 exploratory laparotomy, lysis of adhesions bowel resection d/t obstruction evacuation incarcerated food bezoar/repair incarcerated incisional hernia with abdominal washout. Other sx hx: thyroidectomy(non functioning) heart cath 13 100% occluded LAD unable to stent, partial nephrectomy for a left kidney renal cell carcinoma, PICC line insertion (since removed), colonoscopy, bilateral cataract removal with lens implants, 2 C-Sections. Past Anesthesia/Blood Transfusion Reactions: No Reported Reaction Past Psychological History: Anxiety, Depression Smoking Status: Current some day smoker Past Alcohol Use History: Rare Past Drug Use History: None Reported - Past Family History Father Family Medical History: Myocardial Infarction (PR) Additional Family Medical History / Comment(s): from [place] at age 48 Mother Family Medical History: Cancer Additional Family Medical History / Comment(s): maeve breasts removed d/t cancer, hysterectomy d/t cancer General Exam Limitations: no limitations General appearance: alert, in no apparent distress Head exam: Present: atraumatic Eye exam: Present: normal appearance, PERRL ENT exam: Present: normal oropharynx Neck exam: Present: normal inspection Respiratory exam: Present: normal lung sounds bilaterally Cardiovascular Exam: Present: regular rate, normal rhythm Expanded Peripheral pulses: 2+: Radial (R), Radial (L), Dorsalis Pedis (R), Dorsalis Pedis (L) GI/Abdominal exam: Present: soft. Absent: tenderness, pulsatile mass Extremities exam: Present: normal inspection. Absent: pedal edema, calf tenderness Back exam: Present: tenderness (Mild tenderness lower lumbar spine) Neurological exam: Present: alert Psychiatric exam: Present: normal affect, normal mood Skin exam: Present: normal color Course Vital Signs 10/29/17 10/29/17 10/29/17 22:27 22:35 23:24 Temperature 97.1 F L 97.4 F L Pulse Rate 104 H 100 Respiratory 16 16 16 Rate Blood Pressure 122/64 159/67 O2 Sat by Pulse 99 100 Oximetry EKG Findings - EKG Comments: EKG Findings:: Sinus tachycardia 102. KS 118. QRS 98. QT 452. QTC 458. Normal axis. LVH criteria. Lateral T wave inversion. Septal Q waves. Medical Decision Making - Medical Decision Making Patient reevaluated and resting comfortably in bed. No skin and chest discomfort at this time. Patient updated on results and plan. Case was discussed in detail with Dr. Alvarado, who will admit for Dr. Severino. - Lab Data Result diagrams: 10/29/17 22:35 10/29/17 22:35 Lab Results 10/29/17 10/29/17 10/29/17 Range/Units 22:35 22:35 22:35 WBC 5.1 (3.8-10.6) k/uL RBC 3.79 L (3.80-5.40) m/uL Hgb 11.2 L (11.4-16.0) gm/dL Hct 33.8 L (34.0-46.0) % MCV 89.1 (80.0-100.0) fL MCH 29.5 (25.0-35.0) pg MCHC 33.2 (31.0-37.0) g/dL RDW 14.1 (11.5-15.5) % Plt Count 217 (150-450) k/uL Neutrophils % 48 % Lymphocytes % 42 % Monocytes % 4 % Eosinophils % 4 % Basophils % 0 % Neutrophils # 2.5 (1.3-7.7) k/uL Lymphocytes # 2.2 (1.0-4.8) k/uL Monocytes # 0.2 (0-1.0) k/uL Eosinophils # 0.2 (0-0.7) k/uL Basophils # 0.0 (0-0.2) k/uL PT (9.0-12.0) sec INR (<1.2) APTT (22.0-30.0) sec Sodium 144 (137-145) mmol/L Potassium 3.6 (3.5-5.1) mmol/L Chloride 108 H (98-107) mmol/L Carbon Dioxide 23 (22-30) mmol/L Anion Gap 13 mmol/L BUN 22 H (7-17) mg/dL Creatinine 0.70 (0.52-1.04) mg/dL Est GFR (CKD-EPI)AfAm >90 (>60 ml/min/1.73 sqM) Est GFR (CKD-EPI)NonAf >90 (>60 ml/min/1.73 sqM) Glucose 70 L (74-99) mg/dL Calcium 9.0 (8.4-10.2) mg/dL Magnesium 1.8 (1.6-2.3) mg/dL Total Bilirubin 0.2 (0.2-1.3) mg/dL AST 34 (14-36) U/L ALT 38 (9-52) U/L Alkaline Phosphatase 93 (38-126) U/L Total Creatine Kinase 90 (30-135) U/L CK-MB (CK-2) 1.5 (0.0-2.4) ng/mL CK-MB (CK-2) Rel Index 1.7 Troponin I <0.012 (0.000-0.034) ng/mL Total Protein 6.1 L (6.3-8.2) g/dL Albumin 3.6 (3.5-5.0) g/dL Amylase 42 (30-110) U/L Lipase 81 (23-300) U/L 10/29/17 Range/Units 22:35 WBC (3.8-10.6) k/uL RBC (3.80-5.40) m/uL Hgb (11.4-16.0) gm/dL Hct (34.0-46.0) % MCV (80.0-100.0) fL MCH (25.0-35.0) pg MCHC (31.0-37.0) g/dL RDW (11.5-15.5) % Plt Count (150-450) k/uL Neutrophils % % Lymphocytes % % Monocytes % % Eosinophils % % Basophils % % Neutrophils # (1.3-7.7) k/uL Lymphocytes # (1.0-4.8) k/uL Monocytes # (0-1.0) k/uL Eosinophils # (0-0.7) k/uL Basophils # (0-0.2) k/uL PT 9.6 (9.0-12.0) sec INR 1.0 (<1.2) APTT 21.2 L (22.0-30.0) sec Sodium (137-145) mmol/L Potassium (3.5-5.1) mmol/L Chloride (98-107) mmol/L Carbon Dioxide (22-30) mmol/L Anion Gap mmol/L BUN (7-17) mg/dL Creatinine (0.52-1.04) mg/dL Est GFR (CKD-EPI)AfAm (>60 ml/min/1.73 sqM) Est GFR (CKD-EPI)NonAf (>60 ml/min/1.73 sqM) Glucose (74-99) mg/dL Calcium (8.4-10.2) mg/dL Magnesium (1.6-2.3) mg/dL Total Bilirubin (0.2-1.3) mg/dL AST (14-36) U/L ALT (9-52) U/L Alkaline Phosphatase (38-126) U/L Total Creatine Kinase (30-135) U/L CK-MB (CK-2) (0.0-2.4) ng/mL CK-MB (CK-2) Rel Index Troponin I (0.000-0.034) ng/mL Total Protein (6.3-8.2) g/dL Albumin (3.5-5.0) g/dL Amylase (30-110) U/L Lipase (23-300) U/L - Radiology Data Radiology results: image reviewed (Chest x-ray shows no acute process.) Disposition Clinical Impression: Chest pain Disposition: ADMITTED IP TO THIS HOSP Is patient prescribed a controlled substance at d/c from ED?: No Referrals: Lee Severino MD [Primary Care Provider] - 1-2 days Decision Time: 00:12
[2017-10-29 23:01] LABS: Basophils % (A) 0 %; Eosinophils # (A) 0.2 k/uL (0-0.7); Eosinophils % (A) 4 %; HCT 33.8 % (34.0-46.0); HGB 11.2 gm/dL (11.4-16.0); Lymphocytes # (A) 2.2 k/uL (1.0-4.8); Lymphocytes % (A) 42 %; MCH 29.5 pg (25.0-35.0); MCHC 33.2 g/dL (31.0-37.0); MCV 89.1 fL (80.0-100.0); Mean Platelet Volume 6.9; Monocytes # (A) 0.2 k/uL (0-1.0); Monocytes % (A) 4 %; Neutrophils # (A) 2.5 k/uL (1.3-7.7); Neutrophils % (A) 48 %; Platelet Count 217 k/uL (150-450); RBC 3.79 m/uL (3.80-5.40); RDW 14.1 % (11.5-15.5); WBC 5.1 k/uL (3.8-10.6)
[2017-10-29 23:09] LABS: Prothrombin Time 9.6 sec (9.0-12.0)
[2017-10-29 23:10] LABS: ALT 38 U/L (9-52); AST 34 U/L (14-36); Albumin 3.6 g/dL (3.5-5.0); Alkaline Phosphatase 93 U/L (38-126); Amylase 42 U/L (30-110); Anion Gap 13 mmol/L; Blood Urea Nitrogen 22 mg/dL (7-17); Carbon Dioxide 23 mmol/L (22-30); Chloride 108 mmol/L (98-107); Glucose 70 mg/dL (74-99); Lipase 81 U/L (23-300); Magnesium 1.8 mg/dL (1.6-2.3); Potassium 3.6 mmol/L (3.5-5.1); Sodium 144 mmol/L (137-145); Total Bilirubin 0.2 mg/dL (0.2-1.3); Total Protein 6.1 g/dL (6.3-8.2)
[2017-10-29 23:20] LABS: Partial Thromboplastin Time 21.2 sec (22.0-30.0)
[2017-10-29 23:24] LABS: Creatine Kinase 90 U/L (30-135)
[2017-10-29 23:36] LABS: Creatine Kinase MB 1.5 ng/mL (0.0-2.4); Troponin I <0.012 ng/mL (0.000-0.034)
--- NOTE | 2017-10-29 23:45 | XR ---
EXAMINATION TYPE: XR chest 2V DATE OF EXAM: 10/29/2017 COMPARISON: 09/08/2017 HISTORY: COPD. Chest pain. TECHNIQUE: Frontal and lateral views of the chest are obtained. FINDINGS: There is a 1 cm calcified granuloma in the left lower lobe. Heart and mediastinum are norm al. The lungs are clear of consolidation. There is no heart failure. There are chest leads. Bony thor ax is intact. IMPRESSION: Old granulomatous disease. No active cardiopulmonary disease. No change.
[2017-10-30] MEDS ORDERED: NITROGLYCERIN SL TABS 0.4 MG TAB SUBLINGUAL PRN (00:13)
[2017-10-30 04:46] LABS: Creatine Kinase 73 U/L (30-135)
[2017-10-30 04:58] LABS: Creatine Kinase MB 1.2 ng/mL (0.0-2.4); Troponin I <0.012 ng/mL (0.000-0.034)
[2017-10-30] MEDS: NITROGLYCERIN OINT 1 INCH/GM PACKET TOPICAL SCH ×2 (05:21→12:27)
[2017-10-30 07:05] LABS: Glucose,Whole Blood 100 mg/dL (75-99)
[2017-10-30 08:04] VITALS: RESP 18
[2017-10-30] MEDS ORDERED: LISINOPRIL 5 MG TAB PO SCH (09:00)
[2017-10-30] MEDS ORDERED: METOPROLOL SUCCINATE (ER) 25 MG TAB.ER.24H PO SCH (09:00)
[2017-10-30] MEDS ORDERED: ASPIRIN 325 MG TAB PO SCH (09:00)
[2017-10-30 09:06] LABS: Glucose,Whole Blood 46 mg/dL (75-99)
[2017-10-30] MEDS ORDERED: ATORVASTATIN 80 MG TAB PO SCH ×2 (09:15→21:00)
[2017-10-30 09:28] LABS: Glucose,Whole Blood 68 mg/dL (75-99)
[2017-10-30 09:42] LABS: Glucose,Whole Blood 98 mg/dL (75-99)
[2017-10-30] MEDS ORDERED: CYCLOBENZAPRINE 10 MG TAB PO PRN (09:55)
[2017-10-30] MEDS ORDERED: BUTA/APAP/CAF/COD 50-325-40-30 CAP PO PRN (09:55)
[2017-10-30] MEDS ORDERED: ALBUTEROL NEBULIZED 2.5 MG/3 ML INHALATION PRN (09:55)
[2017-10-30] MEDS ORDERED: ALBUTEROL INHALER 60 PUFF/8 GM INHALER INHALATION PRN (09:55)
[2017-10-30] MEDS ORDERED: hydrOXYzine HCL 10 MG TAB PO PRN (09:55)
--- NOTE | 2017-10-30 10:30 | XR ---
EXAMINATION TYPE: XR abdomen 2V DATE OF EXAM: 10/30/2017 COMPARISON: 10/29/2017 HISTORY: Left upper quadrant pain TECHNIQUE: One view abdominal series FINDINGS: The osseous structures are intact. The bowel gas pattern is nonspecific. Granuloma left lung base no delta. Extensive retained fecal debris throughout the colon. Metallic device overlying the right abdome n is seen which may be related to the patient's history of implanted insulin device. IMPRESSION: 1. Nonspecific abdomen. Extensive retained fecal debris throughout the colon. 2. Left lower lobe granuloma.
[2017-10-30] MEDS ORDERED: SODIUM CHLORIDE 0.9% 1,000 ML IV SCH (10:45)
[2017-10-30 10:48] LABS: Creatine Kinase 73 U/L (30-135)
--- NOTE | 2017-10-30 10:56 | P.HPIM ---
History of Present Illness H&P Date: 10/30/17 Chief Complaint: Shortness of breath, chest pain, nausea vomiting and diarrhea HISTORY AND PHYSICAL AND DISCHARGE SUMMARY: This is a 57-year-old female patient of Dr. Severino with a past medical history of diabetes mellitus type [address] Harsh Rodríguez, hypertension, hyperlipidemia, previous myocardial infarction with known coronary artery disease, left renal cell carcinoma, CVA, COPD, hypothyroidism, gastroesophageal reflux disease, recurrent depression. Patient states that she saw Thomas POWELL and Dr. Harsh Rodríguez's office yesterday in the morning and her insulins were adjusted as she was having low blood sugars. She was changed to Lantus 18 units at bedtime and Humalog 8 units with meals plus scale. Patient is also on Actos and metformin. Patient does not know what her hemoglobin A1c is. She states she also saw Dr. Jean yesterday because she has had back pain with history of renal cancer, diarrhea about 3 times every day for the past 3 days and nausea and vomiting. Vomiting was onset last night. Dr. Salter was going to order her an ultrasound which was scheduled for today. Patient states yesterday her blood sugar was down to 54 this was around 6:30 at dinner time and continued to decline during the night. She ate dinner and did not take her insulin. She has also had chest pain on the left side of her chest that goes into the left base of her neck that has been going on for the past few days on and off but seemed worse last evening. She states she has some shortness of breath with it. She recently stopped smoking on October 26 and started on Chantix. She has not home O2 dependent. She also complains of left upper quadrant abdominal pain. Patient came into [facility] emergency center for evaluation. EKG showed T-wave inversion in V4, V5 and V6. Blood sugar was 70 when she arrived. Troponin was 0.012. 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 No active cardio pulmonary disease. No change. Patient was started on nitroglycerin ointment and serial troponins were ordered and patient placed on the observation floor and consult with cardiology. Abdominal x-ray showed nonspecific abdomen. Extensive retained fecal debris throughout the colon. Left lower lobe granuloma. Hemoglobin A1c was 11.9. Patient was seen by cardiology and cleared for discharge home. Discharge Medication List Levothyroxine Sodium [Synthroid] 200 mcg PO DAILY 04/28/15 [History] Aspirin [Adult Low Dose Aspirin EC] 81 mg PO HS 09/04/16 [History] Albuterol Inhaler [Ventolin Hfa Inhaler] 2 puff INHALATION RT-Q6H PRN 10/21/16 [ History] Loratadine [Claritin] 10 mg PO QAM 10/21/16 [History] Venlafaxine HCl [Venlafaxine HCl ER] 225 mg PO DAILY 10/21/16 [History] Cariprazine HCl [Vraylar] 1.5 mg PO DAILY 05/05/17 [History] Cyclobenzaprine [Flexeril] 10 mg PO BID PRN 05/05/17 [History] Clopidogrel [Plavix] 75 mg PO DAILY 07/31/17 [History] Meclizine [Antivert] 12.5 - 25 mg PO TID PRN 07/31/17 [History] metFORMIN HCL [Glucophage] 500 mg PO BID 07/31/17 [History] Cyanocobalamin (Vitamin B-12) [Vitamin B-12] 1,000 mcg PO DAILY 08/15/17 [ History] Multivitamins, Thera [Multivitamin (formulary)] 1 tab PO DAILY 08/15/17 [History ] ALPRAZolam [Xanax] 0.125 mg PO BID 09/08/17 [History] hydrOXYzine HCL 10 mg PO HS PRN 09/08/17 [History] Albuterol Nebulized (Conc) [Ventolin Nebulized (Conc)] 2.5 mg INHALATION RT-Q6H PRN 10/29/17 [History] Buta/APAP/Caf/Cod 46-433-20-30 [Fioricet w/Cod 97-047-88-30MG] 1 cap PO Q4H PRN 10/29/17 [History] INSULIN LISPRO (HumaLOG) [humaLOG] See Protocol SQ ACHS 10/29/17 [History] Pioglitazone [Actos] 15 mg PO DAILY 10/29/17 [History] Promethazine 6.25MG/5Ml [Phenergan Syrup] 6.25 mg PO Q6H PRN 10/29/17 [History] Atorvastatin [Lipitor] 80 mg PO HS #30 tab 05/17/18 [Rx] INSULIN LISPRO (HumaLOG) [humaLOG] 8 unit SQ AC-TID 10/30/17 [History] Insulin Glargine,Hum.rec.anlog [Lantus Solostar] 18 unit SQ HS 10/30/17 [History ] Lisinopril [Zestril] 10 mg PO DAILY #30 tab 10/30/17 [Rx] Metoprolol Succinate (ER) [Toprol XL] 25 mg PO DAILY 10/30/17 [History] Ranitidine HCl [Zantac] 75 mg PO BID 10/30/17 [History] Review of Systems All systems: negative Constitutional: Denies chills, Denies fever Eyes: denies blurred vision, denies pain Ears, nose, mouth and throat: Denies headache, Denies sore throat, Denies vertigo Cardiovascular: Reports chest pain, Reports shortness of breath, Denies leg edema, Denies lightheadedness, Denies syncope Respiratory: Denies cough, Denies excessive sputum, Denies hemoptysis, Denies home oxygen, Denies wheezing Gastrointestinal: Reports abdominal pain, Reports diarrhea, Reports nausea, Reports vomiting Genitourinary: Denies dysuria, Denies hematuria Musculoskeletal: Denies myalgias Integumentary: Denies pruritus, Denies rash Neurological: Denies numbness, Denies weakness Psychiatric: Denies anxiety, Denies depression Endocrine: Denies fatigue, Denies weight change Past Medical History Past Medical History: COPD, CVA/TIA, Diabetes Mellitus, GERD/Reflux, Hyperlipidemia, Hypertension, Myocardial Infarction ([place]), Thyroid Disorder Additional Past Medical History / Comment(s): 09/16/16 with SBO with surgery/ possible septic emboli with cavitary lesions bilateral lungs.Other hx: left renal cell carcinoma status post partial nephrectomy, CVA 4, diabetes mellitus , COPD, hypothyroidism, chronic back pain, urine checked infection with sepsis secondary to ESBL producing E. coli in April 2016 requiring a PICC line insertion for IV antibiotics, coronary artery disease with previous [place], restless leg syndrome, peripheral neuropathy, hypertension, hypothyroidism, hyperlipidemia, GE reflux, depression Last Myocardial Infarction Date:: 2012 History of Any Multi-Drug Resistant Organisms: ESBL, MRSA, VRE Date of last positivie culture/infection: 05/07/16 ESBL, 05/15/16 VRE MDRO Source:: URINE E.COLI, EC GALLINARUM Past Surgical History: Appendectomy, Bowel Resection, Section, Heart Catheterization Additional Past Surgical History / Comment(s): 09/23/16 exploratory laparotomy, lysis of adhesions bowel resection d/t obstruction evacuation incarcerated food bezoar/repair incarcerated incisional hernia with abdominal washout. Other sx hx: thyroidectomy(non functioning) heart cath 06-18-12 100% occluded LAD unable to stent, partial nephrectomy for a left kidney renal cell carcinoma, PICC line insertion (since removed), colonoscopy, bilateral cataract removal with lens implants, 2 C-Sections. Past Anesthesia/Blood Transfusion Reactions: No Reported Reaction Past Psychological History: Anxiety, Depression Smoking Status: Current some day smoker Past Alcohol Use History: Rare Additional Past Alcohol Use History / Comment(s): STARTED SMOKING AT AGE 8 and smokes one to one and half packs per day for 50 years. She started Chantix on 10/26/2017 and is smoking a couple ciggs. per day. 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 Past Drug Use History: None Reported - Past Family History Sister(s) Family Medical History: Cancer, Sleep Apnea/CPAP/BIPAP Additional Family Medical History / Comment(s): Patient has one sister that from liver cancer, borderline DM, PAD, hep. c. Brother(s) Family Medical History: Cancer, Coronary Artery Disease (CAD), Hyperlipidemia Additional Family Medical History / Comment(s): Patient has 1 brother with past ETOH, past drug abuse. She has a second brother that has from throat cancer. Daughter(s) Family Medical History: Myocardial Infarction ([place]) Additional Family Medical History / Comment(s): daughter at 23y/o from massive [place] Father Family Medical History: Myocardial Infarction ([place]) Additional Family Medical History / Comment(s): from mi at age 44 Mother Family Medical History: Cancer Additional Family Medical History / Comment(s): maeve breasts removed d/t cancer, hysterectomy d/t cancer. Mother from metastatic breast cancer. Medications and Allergies Home Medications Medication Instructions Recorded Confirmed Type Levothyroxine Sodium [Synthroid] 200 mcg PO DAILY 04/28/15 10/29/17 History Aspirin [Adult Low Dose Aspirin EC] 81 mg PO HS 09/04/16 10/29/17 History Albuterol Inhaler [Ventolin Hfa 2 puff INHALATION RT-Q6H PRN 10/21/16 10/30/17 History Inhaler] Loratadine [Claritin] 10 mg PO QAM 10/21/16 10/29/17 History Venlafaxine HCl [Venlafaxine HCl 225 mg PO DAILY 10/21/16 10/29/17 History ER] Cariprazine HCl [Vraylar] 1.5 mg PO DAILY 05/05/17 10/29/17 History Cyclobenzaprine [Flexeril] 10 mg PO BID PRN 05/05/17 10/30/17 History Clopidogrel [Plavix] 75 mg PO DAILY 07/31/17 10/29/17 History Meclizine [Antivert] 12.5 - 25 mg PO TID PRN 07/31/17 10/29/17 History metFORMIN HCL [Glucophage] 500 mg PO BID 07/31/17 10/29/17 History Cyanocobalamin (Vitamin B-12) 1,000 mcg PO DAILY 08/15/17 10/29/17 History [Vitamin B-12] Multivitamins, Thera [Multivitamin 1 tab PO DAILY 08/15/17 10/30/17 History (formulary)] ALPRAZolam [Xanax] 0.125 mg PO BID 09/08/17 10/29/17 History hydrOXYzine HCL 10 mg PO HS PRN 09/08/17 10/30/17 History Albuterol Nebulized (Conc) 2.5 mg INHALATION RT-Q6H PRN 10/29/17 10/30/17 History [Ventolin Nebulized (Conc)] Buta/APAP/Caf/Cod 05-893-09-30 1 cap PO Q4H PRN 10/29/17 10/30/17 History [Fioricet w/Cod 70-579-70-30MG] INSULIN LISPRO (HumaLOG) [humaLOG] See Protocol SQ ACHS 10/29/17 10/30/17 History Pioglitazone [Actos] 15 mg PO DAILY 10/29/17 10/29/17 History Promethazine 6.25MG/5Ml [Phenergan 6.25 mg PO Q6H PRN 10/29/17 10/30/17 History Syrup] Atorvastatin [Lipitor] 80 mg PO HS #30 tab 05/17/18 Rx INSULIN LISPRO (HumaLOG) [humaLOG] 8 unit SQ AC-TID 10/30/17 10/30/17 History Insulin Glargine,Hum.rec.anlog 18 unit SQ HS 10/30/17 10/30/17 History [Lantus Solostar] Lisinopril [Zestril] 10 mg PO DAILY #30 tab 10/30/17 Rx Metoprolol Succinate (ER) [Toprol 25 mg PO DAILY 10/30/17 10/30/17 History XL] Ranitidine HCl [Zantac] 75 mg PO BID 10/30/17 10/30/17 History Allergies Allergy/AdvReac Type Severity Reaction Status Date / Time grass pollen Allergy Unknown Verified 10/30/17 01:42 latex Allergy Rash/Hives Verified 10/30/17 01:42 Sulfa (Sulfonamide Allergy Rash/Hives/ Verified 10/30/17 01:42 Antibiotics) Swelling venom-honey bee Allergy Anaphylaxis Verified 10/30/17 01:42 morphine AdvReac Decreased Verified 10/30/17 01:42 Blood Pressure prochlorperazine edisylate AdvReac Vomiting Verified 10/30/17 01:42 [From Compazine] Physical Exam Vitals: Vital Signs Temp Pulse Pulse Resp BP BP Pulse Ox 10/30/17 08:00 106 H 18 10/30/17 07:40 98.0 F 106 H 18 96/50 99 10/30/17 04:00 98.4 F 97 16 116/68 100 10/30/17 01:55 16 10/30/17 01:11 97.7 F 101 H 16 140/79 99 10/30/17 00:31 97.5 F L 96 16 159/67 98 10/29/17 23:24 97.4 F L 100 16 159/67 100 10/29/17 22:35 16 10/29/17 22:27 97.1 F L 104 H 16 122/64 99 Intake and Output 10/29/17 10/30/17 10/30/17 22:59 06:59 14:59 Other: Voiding Method Toilet Toilet Weight 62.142 kg - Constitutional General appearance: average body habitus, no no acute distress - EENT Eyes: no anicteric sclerae, PERRLA ENT: hearing grossly normal - Neck Neck: no lymphadenopathy, normal ROM, no rigidity, no stridor, no thyromegaly - Respiratory Respiratory: bilateral: CTA, negative: diminished, dullness, rales, rhonchi, wheezing - Cardiovascular Rhythm: regular Heart sounds: normal: S1, S2 Abnormal Heart Sounds: systolic murmur - Gastrointestinal General gastrointestinal: no decreased bowel sounds, no distended, no hepatomegaly, normal bowel sounds, no organomegaly, no rigid, no splenomegaly, tenderness Localized gastrointestinal: tender: LUQ - Integumentary Integumentary: no rash, no ulcer - Neurologic Neurologic: CNII-XII intact - Musculoskeletal Musculoskeletal: strength equal bilaterally, no right sided weakness, no left sided weakness - Psychiatric Psychiatric: A&O x's 3, appropriate affect, intact judgment & insight Results CBC & Chem 7: 10/29/17 22:35 10/29/17 22:35 Labs: Abnormal Lab Results - Last 24 Hours (Table) 10/29/17 10/29/17 10/29/17 Range/Units 22:35 22:35 22:35 RBC 3.79 L (3.80-5.40) m/uL Hgb 11.2 L (11.4-16.0) gm/dL Hct 33.8 L (34.0-46.0) % APTT 21.2 L (22.0-30.0) sec Chloride 108 H (98-107) mmol/L BUN 22 H (7-17) mg/dL Glucose 70 L (74-99) mg/dL POC Glucose (mg/dL) (75-99) mg/dL Total Protein 6.1 L (6.3-8.2) g/dL 10/30/17 10/30/17 10/30/17 Range/Units 07:01 09:04 09:22 RBC (3.80-5.40) m/uL Hgb (11.4-16.0) gm/dL Hct (34.0-46.0) % APTT (22.0-30.0) sec Chloride (98-107) mmol/L BUN (7-17) mg/dL Glucose (74-99) mg/dL POC Glucose (mg/dL) 100 H 46 L 68 L (75-99) mg/dL Total Protein (6.3-8.2) g/dL Thrombosis Risk Factor Assmnt - DVT/VTE Prophylaxis DVT/VTE Prophylaxis: Pharmacologic Prophylaxis ordered - Choose All That Apply Any of the Below Risk Factors Present?: Yes Each Factor Represents 1 point: Abnormal pulmonary function (COPD), Hx of IBD Other Risk Factors: Yes Each Risk Factor Represents 2 Points: Age 61-74 years Each Risk Factor Represents 3 Points: History of DVT/PE Other congenital or acquired thrombophilia - If yes, enter type in comment: No Thrombosis Risk Factor Assessment Total Risk Factor Score: 7 Thrombosis Risk Factor Assessment Level: High Risk Assessment and Plan Plan: 1. Left-sided chest pain in a patient with history of coronary artery disease and previous myocardial infarction. Troponins have been negative on 2 draws. Cardiology consult is appreciated. Echocardiogram to be obtained from their office. Continue aspirin 81 mg daily, Plavix 75 mg daily, Toprol-XL 25 mg daily , Nitro-Bid ointment and Nitrostat as needed. 2. Left upper quadrant abdominal pain along with nausea vomiting and diarrhea. Patient is not had any diarrhea since last evening. Continue to monitor. Patient has been given Zofran with improvement of nausea and vomiting. Abdominal x-ray ordered. IV fluids 0.9 normal saline at 75 mL per hour. 3. Diabetes mellitus type 2 with hypoglycemia, uncontrolled. Hemoglobin A1c ordered. Long acting and short acting scheduled insulins discontinued and patient will be on NovoLog scale only. Hemoglobin A1c to be checked. Actos and metformin on hold. 4. Hypertension. Continue Norvasc 10 mg at bedtime, lisinopril 5 mg daily. 5. Previous history of CVA. Continue Plavix and Lipitor. 6. Hypothyroidism. Continue levothyroxine 200 g daily. 7. Hyperlipidemia. Continue on Lipitor 80 mg daily. 8. Recurrent depression. Continue venlafaxine 225 mg daily. 9. Tobacco use and dependence. Patient stopped smoking on October 26. Patient has been using Chantix.. 10. GI prophylaxis. Pepcid. 11. DVT prophylaxis. Heparin subcu. Patient will be admitted to the hospital for a minimum of 2 night stay. Discharge plan: Return home Impression and plan of care have been directed as dictated by the signing physician. Hayley Ferrari nurse practitioner acting as scribe for signing physician.
[2017-10-30 11:01] LABS: Creatine Kinase MB 1.5 ng/mL (0.0-2.4); Troponin I <0.012 ng/mL (0.000-0.034)
[2017-10-30 11:05] LABS: Glucose,Whole Blood 63 mg/dL (75-99)
[2017-10-30 11:28] LABS: Glucose,Whole Blood 59 mg/dL (75-99)
[2017-10-30 11:40] LABS: Glucose,Whole Blood 108 mg/dL (75-99)
[2017-10-30 12:01] LABS: Hemoglobin A1C 11.9 % (4.0-6.0)
[2017-10-30 12:20] LABS: Glucose,Whole Blood 147 mg/dL (75-99)
[2017-10-30] MEDS: INSULIN ASPART 100 UNIT/ML 1 ML 10 ML VIAL SQ SCH ×2 (13:42→17:46)
[2017-10-30] MEDS ORDERED: BISACODYL 10 MG SUPP RECTAL STA (13:46)
[2017-10-30] MEDS ORDERED: LISINOPRIL 5 MG TAB PO STA (13:46)
--- NOTE | 2017-10-30 14:29 | P.CRDCN ---
History of Present Illness Consult date: 10/30/17 History of present illness: Mrs. Kenyon is a pleasant 57-year-old female past medical history significant for systolic heart failure, non-ischemic cardiomyopathy, diabetes mellitus, hypertension, dyslipidemia, gastroesophageal reflux disease, CVA, COPD and hypothyroidism. She follows with Dr. Sierra in the office. She was recently in the office in August after not following for [address] that time Dr[address] Sierra scheduled her for an echocardiogram and stress test. The stress test was negative for reversible cardiac ischemia. The echocardiogram showed a decrease in her systolic function to EF 40% with mild TR, moderate MR and moderately dilated LA. At that time her medications were adjusted appropriately and she was started on toprol and lisinopril. We have been asked to see her in consultation for chest pain. She states for the last few days she has had diarrhea and mild nausea with no vomiting. She has been back and forth to her physician adjusting her insulin dosing recently because her sugars have been on the low side. She states yesterday evening. She checked her sugar and it was in the 50s she started experiencing tightness in the left precordial region that radiated up into her neck. She denies radiation into the back jaw or arm. She was mildly short of breath during this episode and still with ongoing nausea. The pain was very nonspecific and intermittent in nature. It is described as a dull ache she denies associated palpitations, dizziness, vomiting or diaphoresis. She has had no further symptoms of chest pain since arriving into the hospital. Telemetry tracings have been unremarkable. EKG sinus mechanism T-wave abnormalities noted in the inferior and lateral leads. Mild ST depression less than 0.5 mm noted in lead 1. These findings are consistent on previous EKG. Chest x-ray reveals old granulomatous disease with no acute cardiopulmonary process. Laboratory data reviewed, hemoglobin 11.2, platelets 217, sodium 144, potassium 3.6, creatinine 0.7, magnesium 1.8, cardiac enzymes negative 3 Current cardiac medications include Plavix 75 mg daily, aspirin 81 mg daily and Caduet . She also takes promethazine, albuterol, Zantac, Fioricet, hydroxyzine, Flexeril, insulin, venlafaxine, metformin, Antivert, Claritin, Synthroid and Xanax. Review of Systems At the time of my exam: CONSTITUTIONAL: Denies fever. Denies chills. EYES: Denies blurred vision. Denies vision changes. Denies eye pain. EARS, NOSE, MOUTH & THROAT: Denies headache. Denies sore throat. Denies ear pain. CARDIOVASCULAR: Denies chest pain. Denies shortness of breath. Denies orthopnea. Denies PND. Denies palpitations. RESPIRATORY: Denies cough. GASTROINTESTINAL: Denies abdominal pain. Denies diarrhea. Denies constipation. Complains of ongoing nausea. Denies vomiting. MUSCULOSKELETAL: Denies myalgias. INTEGUMENTARY: Denies pruitis. Denies rash. NEUROLOGIC: Denies numbness. Denies tingling. Denies weakness. PSYCHIATRIC: Denies anxiety. Denies depression. ENDOCRINE: Denies fatigue. Denies weight change. Denies polydipsia. Denies polyurina. GENITOURINARY: Denies burning, hematuria or urgency with micturation. HEMATOLOGIC: Denies history of anemia. Denies bleeding. Past Medical History Past Medical History: COPD, CVA/TIA, Diabetes Mellitus, GERD/Reflux, Hyperlipidemia, Hypertension, Myocardial Infarction (VT), Thyroid Disorder Additional Past Medical History / Comment(s): 09/16/16 with SBO with surgery/ possible septic emboli with cavitary lesions bilateral lungs.Other hx: left renal cell carcinoma status post partial nephrectomy, CVA 4, diabetes mellitus , COPD, hypothyroidism, chronic back pain, urine checked infection with sepsis secondary to ESBL producing E. coli in April 2016 requiring a PICC line insertion for IV antibiotics, coronary artery disease with previous VT, restless leg syndrome, peripheral neuropathy, hypertension, hypothyroidism, hyperlipidemia, GE reflux, depression Last Myocardial Infarction Date:: 2012 History of Any Multi-Drug Resistant Organisms: ESBL, MRSA, VRE Date of last positivie culture/infection: 05/07/16 ESBL, 05/15/16 VRE MDRO Source:: URINE E.COLI, EC GALLINARUM Past Surgical History: Appendectomy, Bowel Resection, Section, Heart Catheterization Additional Past Surgical History / Comment(s): 09/23/16 exploratory laparotomy, lysis of adhesions bowel resection d/t obstruction evacuation incarcerated food bezoar/repair incarcerated incisional hernia with abdominal washout. Other sx hx: thyroidectomy(non functioning) heart cath 06-18-12 100% occluded LAD unable to stent, partial nephrectomy for a left kidney renal cell carcinoma, PICC line insertion (since removed), colonoscopy, bilateral cataract removal with lens implants, 2 C-Sections. Past Anesthesia/Blood Transfusion Reactions: No Reported Reaction Past Psychological History: Anxiety, Depression Smoking Status: Current some day smoker Past Alcohol Use History: Rare Additional Past Alcohol Use History / Comment(s): STARTED SMOKING AT AGE 8 and smokes one to one and half packs per day for 50 years. She started Chantix on 10/26/2017 and is smoking a couple ciggs. per day. 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 Past Drug Use History: None Reported - Past Family History Sister(s) Family Medical History: Cancer, Sleep Apnea/CPAP/BIPAP Additional Family Medical History / Comment(s): Patient has one sister that from liver cancer, borderline DM, PAD, hep. c. Brother(s) Family Medical History: Cancer, Coronary Artery Disease (CAD), Hyperlipidemia Additional Family Medical History / Comment(s): Patient has 1 brother with past ETOH, past drug abuse. She has a second brother that has from throat cancer. Daughter(s) Family Medical History: Myocardial Infarction (VT) Additional Family Medical History / Comment(s): daughter at 23y/o from massive VT Father Family Medical History: Myocardial Infarction (VT) Additional Family Medical History / Comment(s): from mi at age 44 Mother Family Medical History: Cancer Additional Family Medical History / Comment(s): maeve breasts removed d/t cancer, hysterectomy d/t cancer. Mother from metastatic breast cancer. Medications and Allergies Home Medications Medication Instructions Recorded Confirmed Type Levothyroxine Sodium [Synthroid] 200 mcg PO DAILY 04/28/15 10/29/17 History Aspirin [Adult Low Dose Aspirin EC] 81 mg PO HS 09/04/16 10/29/17 History Albuterol Inhaler [Ventolin Hfa 2 puff INHALATION RT-Q6H PRN 10/21/16 10/30/17 History Inhaler] Loratadine [Claritin] 10 mg PO QAM 10/21/16 10/29/17 History Venlafaxine HCl [Venlafaxine HCl 225 mg PO DAILY 10/21/16 10/29/17 History ER] Cariprazine HCl [Vraylar] 1.5 mg PO DAILY 05/05/17 10/29/17 History Cyclobenzaprine [Flexeril] 10 mg PO BID PRN 05/05/17 10/30/17 History Clopidogrel [Plavix] 75 mg PO DAILY 07/31/17 10/29/17 History Meclizine [Antivert] 12.5 - 25 mg PO TID PRN 07/31/17 10/29/17 History metFORMIN HCL [Glucophage] 500 mg PO BID 07/31/17 10/29/17 History Cyanocobalamin (Vitamin B-12) 1,000 mcg PO DAILY 08/15/17 10/29/17 History [Vitamin B-12] Multivitamins, Thera [Multivitamin 1 tab PO DAILY 08/15/17 10/30/17 History (formulary)] ALPRAZolam [Xanax] 0.125 mg PO BID 09/08/17 10/29/17 History hydrOXYzine HCL 10 mg PO HS PRN 09/08/17 10/30/17 History Albuterol Nebulized (Conc) 2.5 mg INHALATION RT-Q6H PRN 10/29/17 10/30/17 History [Ventolin Nebulized (Conc)] Buta/APAP/Caf/Cod [id number] 1 cap PO Q4H PRN 10/29/17 10/30/17 History [Fioricet w/Cod 06-779-04-30MG] INSULIN LISPRO (HumaLOG) [humaLOG] See Protocol SQ ACHS 10/29/17 10/30/17 History Pioglitazone [Actos] 15 mg PO DAILY 10/29/17 10/29/17 History Promethazine 6.25MG/5Ml [Phenergan 6.25 mg PO Q6H PRN 10/29/17 10/30/17 History Syrup] amLODIPine/ATORVASTATIN [Caduet 10 1 tab PO HS 10/29/17 10/29/17 History mg-80 mg Tablet] INSULIN LISPRO (HumaLOG) [humaLOG] 8 unit SQ AC-TID 10/30/17 10/30/17 History Insulin Glargine,Hum.rec.anlog 18 unit SQ HS 10/30/17 10/30/17 History [Lantus Solostar] Ranitidine HCl [Zantac] 75 mg PO BID 10/30/17 10/30/17 History Allergies Allergy/AdvReac Type Severity Reaction Status Date / Time grass pollen Allergy Unknown Verified 10/30/17 01:42 latex Allergy Rash/Hives Verified 10/30/17 01:42 Sulfa (Sulfonamide Allergy Rash/Hives/ Verified 10/30/17 01:42 Antibiotics) Swelling venom-honey bee Allergy Anaphylaxis Verified 10/30/17 01:42 morphine AdvReac Decreased Verified 10/30/17 01:42 Blood Pressure prochlorperazine edisylate AdvReac Vomiting Verified 10/30/17 01:42 [From Compazine] Physical Exam Vitals: Vital Signs Temp Pulse Pulse Resp BP BP Pulse Ox 10/30/17 12:00 90 18 10/30/17 10:58 98.0 F 90 136/77 95 10/30/17 08:00 106 H 18 10/30/17 07:40 98.0 F 106 H 18 96/50 99 10/30/17 04:00 98.4 F 97 16 116/68 100 10/30/17 01:55 16 10/30/17 01:11 97.7 F 101 H 16 140/79 99 10/30/17 00:31 97.5 F L 96 16 159/67 98 10/29/17 23:24 97.4 F L 100 16 159/67 100 10/29/17 22:35 16 10/29/17 22:27 97.1 F L 104 H 16 122/64 99 Intake and Output 10/29/17 10/30/17 10/30/17 22:59 06:59 14:59 Other: Voiding Method Toilet Toilet Weight 62.142 kg Blood pressure 136/77 heart rate 90 afebrile maintaining oxygen saturation on room air GENERAL: This is a 57-year-old female in no apparent distress at the time of my examination. HEENT: Head is atraumatic, normocephalic. Pupils are equal, round. Sclerae anicteric. Conjunctivae are clear. Mucous membranes of the mouth are moist. Neck is supple. There is no jugular venous distention. No carotid bruit is heard. LUNGS: Clear to auscultation no wheezes, rales or rhonchi. No chest wall tenderness is noted on palpation or with deep breathing. HEART: Regular rate and rhythm with systolic murmur at the base, no rubs or gallops. S1 and S2 heard. ABDOMEN: Soft, nontender. Bowel sounds are heard. No organomegaly noted. EXTREMITIES: No evidence of peripheral edema and no calf tenderness noted. VASCULAR: Radial and dorsalis pedis pulses palpated, no evidence of clubbing. NEUROLOGIC: Patient is awake, alert and oriented x3. Results 10/29/17 22:35 10/29/17 22:35 Cardiac Enzymes 10/29/17 10/29/17 10/30/17 Range/Units 22:35 22:35 03:53 AST 34 (14-36) U/L CK-MB (CK-2) 1.5 1.2 (0.0-2.4) ng/mL Troponin I <0.012 <0.012 (0.000-0.034) ng/mL 10/30/17 Range/Units 09:56 AST (14-36) U/L CK-MB (CK-2) 1.5 (0.0-2.4) ng/mL Troponin I <0.012 (0.000-0.034) ng/mL Coagulation 10/29/17 Range/Units 22:35 PT 9.6 (9.0-12.0) sec APTT 21.2 L (22.0-30.0) sec CBC 10/29/17 Range/Units 22:35 WBC 5.1 (3.8-10.6) k/uL RBC 3.79 L (3.80-5.40) m/uL Hgb 11.2 L (11.4-16.0) gm/dL Hct 33.8 L (34.0-46.0) % Plt Count 217 (150-450) k/uL Comprehensive Metabolic Panel 10/29/17 Range/Units 22:35 Sodium 144 (137-145) mmol/L Potassium 3.6 (3.5-5.1) mmol/L Chloride 108 H (98-107) mmol/L Carbon Dioxide 23 (22-30) mmol/L BUN 22 H (7-17) mg/dL Creatinine 0.70 (0.52-1.04) mg/dL Glucose 70 L (74-99) mg/dL Calcium 9.0 (8.4-10.2) mg/dL AST 34 (14-36) U/L ALT 38 (9-52) U/L Alkaline Phosphatase 93 (38-126) U/L Total Protein 6.1 L (6.3-8.2) g/dL Albumin 3.6 (3.5-5.0) g/dL Current Medications Generic Name Dose Route Start Last Admin Trade Name Freq PRN Reason Stop Dose Admin Acetam/Butalbital/Caffeine/Codeine 1 each 10/30/17 09:55 Fioricet W/Codeine PO Q4H PRN Headache Albuterol Sulfate 2.5 mg 10/30/17 09:55 Ventolin Nebulized INHALATION RT-Q6H PRN Shortness Of Breath Alprazolam 0.125 mg 10/30/17 21:00 Xanax PO BID [facility] Amlodipine Besylate 10 mg 10/30/17 21:00 Norvasc PO HS [facility] Aspirin 81 mg 10/30/17 21:00 Aspirin PO HS [facility] Atorvastatin Calcium 80 mg 10/30/17 21:00 Lipitor PO HS [facility] Clopidogrel Bisulfate 75 mg 10/31/17 09:00 Plavix PO DAILY [facility] Cyanocobalamin 1,000 mcg 10/31/17 12:00 Vitamin B-12 PO 1200 [facility] Cyclobenzaprine HCl 10 mg 10/30/17 09:55 Flexeril PO BID PRN Muscle Spasm Famotidine 20 mg 10/31/17 09:00 Pepcid PO DAILY [facility] Hydroxyzine HCl 10 mg 10/30/17 09:55 Atarax PO HS PRN Itching Sodium Chloride 1,000 mls @ 75 mls/hr 10/30/17 10:45 10/30/17 10:59 Saline 0.9% IV 75 mls/hr .[id number] [facility] Administration Insulin Aspart 0 unit 10/30/17 12:30 Novolog SQ ACHS [facility] Protocol Levothyroxine Sodium 200 mcg 10/31/17 06:30 Synthroid PO 0630 [facility] Lisinopril 5 mg 10/30/17 09:00 10/30/17 10:59 Zestril PO 5 mg DAILY [facility] Administration Loratadine 10 mg 10/31/17 09:00 Claritin PO QAM [facility] Metoprolol Succinate 25 mg 10/30/17 09:00 10/30/17 10:59 Toprol Xl PO 25 mg DAILY [facility] Administration Nitroglycerin 1 inch 10/30/17 06:00 10/30/17 12:27 Nitro-Bid Oint TOPICAL Not Given Q6HR [facility] Nitroglycerin 0.4 mg 10/30/17 00:13 Nitrostat SUBLINGUAL Q5M PRN Chest Pain Patient's Own ( 1.5 mg 10/31/17 09:00 Cariprazine Hcl [ PO Vraylar] 1.5 Mg) DAILY [facility] Venlafaxine HCl 225 mg 10/31/17 09:00 Effexor Xr PO DAILY [facility] Intake and Output 10/29/17 10/30/17 10/30/17 22:59 06:59 14:59 Other: Voiding Method Toilet Toilet Weight 62.142 kg 10/29/17 22:35 10/29/17 22:35 Assessment and Plan Assessment: ASSESSMENT 1. Chest pain, atypical. An acute coronary event has been ruled out. She has recent normal Lexiscan stress test in the office. 2. History of coronary artery disease, mild nonobstructive 3. Chronic systolic heart failure, currently euvolemic 4. Hypertension 5. Dyslipidemia 6. COPD 7. Diabetes mellitus 8. Chronic tobacco abuse PLAN Medications should be updated to include lisinopril and Toprol. These were started by Dr. Sierra last month. We will discontinue her amlodipine and increase her lisinopril to 10 mg daily. Continue with atorvastatin 80 mg daily. An acute coronary event has been ruled out. Remove nitroglycerin paste and increase activity. Assess for ongoing symptoms of chest discomfort. If she continues to be chest pain-free she is stable from a cardiac perspective. Follow-up with Dr. Sierra upon discharge. Nurse Practitioner note has been reviewed, I agree with a documented findings and plan of care. Patient was seen and examined.
[2017-10-30 17:13] VITALS: BP 146/84; PULSE 97; TEMP 98.5
[2017-10-30 17:27] LABS: Glucose,Whole Blood 263 mg/dL (75-99)
[2017-10-30] MEDS ORDERED: AMLODIPINE PO SCH (21:00)
[2017-10-30] MEDS ORDERED: INSULIN GLARGINE HUM REC ANLOG 18 UNIT SQ SCH (21:00)
[2017-10-30] MEDS ORDERED: amLODIPine 10 MG TAB PO SCH (21:00)
[2017-10-30] MEDS ORDERED: ATORVASTATIN PO SCH (21:00)
[2017-10-30] MEDS ORDERED: FAMOTIDINE 20 MG TAB PO SCH (21:00)
[2017-10-30] MEDS ORDERED: ASPIRIN 81 MG PO SCH (21:00)
[2017-10-30] MEDS ORDERED: ALPRAZolam 0.25 MG TAB PO SCH (21:00)
[2017-10-31] MEDS ORDERED: LEVOTHYROXINE 100 MCG TAB PO SCH (06:30)
[2017-10-31] MEDS ORDERED: LORATADINE 10 MG TAB PO SCH (09:00)
[2017-10-31] MEDS ORDERED: CLOPIDOGREL 75 MG TAB PO SCH (09:00)
[2017-10-31] MEDS ORDERED: LISINOPRIL 10 MG TAB PO SCH (09:00)
[2017-10-31] MEDS ORDERED: CARIPRAZINE HCL 1.5 MG PO SCH (09:00)
[2017-10-31] MEDS ORDERED: VENLAFAXINE HCL ER 75 MG CAP PO SCH (09:00)
[2017-10-31] MEDS ORDERED: FAMOTIDINE 20 MG TAB PO SCH (09:00)
[2017-10-31] MEDS ORDERED: CYANOCOBALAMIN 500 MCG TAB PO SCH (12:00)
== END 2017-10-30 19:20 | disposition home or self-care (01) ==
LOC: EC 22:22 → SUPCPDRO 22:22 → 3OBS 10-30 00:13
PROVIDERS: ADMIT Internal Medicine; ATTEND Internal Medicine
DX: R07.89 Other chest pain (principal); R10.12 Left upper quadrant pain; R19.7 Diarrhea, unspecified; R11.2 Nausea with vomiting, unspecified; I25.10 Atherosclerotic heart disease of native coronary artery without angina pectoris; I11.0 Hypertensive heart disease with heart failure; I50.22 Chronic systolic (congestive) heart failure; J84.10 Pulmonary fibrosis, unspecified; K21.9 Gastro-esophageal reflux disease without esophagitis; J44.9 Chronic obstructive pulmonary disease, unspecified; F33.9 Major depressive disorder, recurrent, unspecified; E78.5 Hyperlipidemia, unspecified; E11.649 Type 2 diabetes mellitus with hypoglycemia without coma; I42.9 Cardiomyopathy, unspecified; E03.9 Hypothyroidism, unspecified; G89.29 Other chronic pain; M54.9 Dorsalgia, unspecified; E11.42 Type 2 diabetes mellitus with diabetic polyneuropathy; F41.9 Anxiety disorder, unspecified; F17.210 Nicotine dependence, cigarettes, uncomplicated; I25.2 Old myocardial infarction; Z90.5 Acquired absence of kidney; Z79.82 Long term (current) use of aspirin; Z79.890 Hormone replacement therapy; Z79.4 Long term (current) use of insulin; Z79.02 Long term (current) use of antithrombotics/antiplatelets; Z79.899 Other long term (current) drug therapy; Z86.73 Personal history of transient ischemic attack (TIA), and cerebral infarction without residual deficits; Z85.528 Personal history of other malignant neoplasm of kidney; Z86.718 Personal history of other venous thrombosis and embolism; Z86.14 Personal history of Methicillin resistant Staphylococcus aureus infection; Z16.21 Resistance to vancomycin; Z16.12 Extended spectrum beta lactamase (ESBL) resistance; Z88.5 Allergy status to narcotic agent; Z88.2 Allergy status to sulfonamides; Z88.8 Allergy status to other drugs, medicaments and biological substances; Z91.038 Other insect allergy status; Z91.040 Latex allergy status; Z91.048 Other nonmedicinal substance allergy status; Z82.49 Family history of ischemic heart disease and other diseases of the circulatory system; Z80.8 Family history of malignant neoplasm of other organs or systems; Z83.1 Family history of other infectious and parasitic diseases; Z80.3 Family history of malignant neoplasm of breast; Z84.89 Family history of other specified conditions; Z81.1 Family history of alcohol abuse and dependence; Z81.4 Family history of other substance abuse and dependence
CPT/HCPCS: 99285 ×2; 36415; 94760; 93005; 80053; 82150; 82550 ×2; 82553 ×2; 83690; 83735; 84484 ×2; 85025; 85610; 85730; 83036; 71046; 74019; G0378

== ENCOUNTER 2018-03-20 14:44 | Day surgery (SDC) | payer OTHER ==
[2018-03-18 10:49] VITALS: BMI 25.7
[~2018-03-20 14:44] MED LIST changes: -HEPARIN SODIUM,PORCINE 5,000 UNIT/ML 1 ML VIAL SQ ONE; +LACTATED RINGERS 1,000 ML IV SCH; -Pre Op ABX Message 1 EACH MISC MISCELLANE ONE; +ceFAZolin IN SWFI 2 GM/20 ML SYRINGE IVP ONE; +fentaNYL (PF) 50 MCG/ML 2 ML AMP IV PRN
[2018-03-20 16:06] LABS: Glucose,Whole Blood 299 mg/dL (75-99)
[2018-03-20 16:06] LABS: Glucose,Whole Blood 272 mg/dL (75-99)
[2018-03-20] MEDS ORDERED: INSULIN ASPART 100 UNIT/ML 1 ML 10 ML VIAL SQ ONE (16:11)
[2018-03-20 16:41] LABS: Glucose,Whole Blood 273 mg/dL (75-99)
[2018-03-20 18:10] LABS: Glucose,Whole Blood 156 mg/dL (75-99)
[2018-03-20] MEDS ORDERED: LIDOCAINE 1% INJ 10MG/ML (20 ML MDV) ONE (19:08)
[2018-03-20] MEDS ORDERED: fentaNYL (PF) 50 MCG/ML 2 ML AMP ONE (19:08)
[2018-03-20] MEDS ORDERED: MIDAZOLAM 2 MG/2 ML VIAL ONE (19:08)
[2018-03-20] MEDS ORDERED: PROPOFOL 10 MG/ML 20 ML VIAL IV ONE (19:08)
[2018-03-20] MEDS ORDERED: HYDROmorphone (PF) 1 MG/ML ONE (19:08)
[2018-03-20] MEDS ORDERED: HYDROcodone/APAP 5-325MG 1 EACH TAB PO PRN (20:22)
--- NOTE | 2018-03-20 20:34 | P.OP ---
Date of Procedure: 03/20/18 Preoperative Diagnosis: 1. Closed, completely displaced left 2nd and 3rd metatarsal neck fractures 2. Minimally displaced left 4th metatarsal neck fracture 3. Type 2 diabetes Postoperative Diagnosis: Same Procedure(s) Performed: 1. Open reduction and percutaneous pinning left second metatarsal neck fracture 2. Open reduction and percutaneous pinning left third metatarsal neck fracture 3. Nonoperative management of left fourth metatarsal neck fracture Anesthesia: GETA Surgeon: Charly Pradhan Estimated Blood Loss (ml): 10 IV fluids (ml): 350 Pathology: none sent Condition: stable Disposition: PACU Indications for Procedure: The patient is a 50-year-old female with multiple medical problems including type 2 diabetes. She sustained an isolated injury to her left foot resulting in completely displaced left second and third metatarsal neck fractures. The patient was met with me in the office to discuss treatment options. Due to her second and third metatarsal neck fractures being completely displaced I recommended reduction and pinning in the operating room. We discussed potential risks and complications of surgery including but not limited to risks from anesthesia, risk of superficial infection, risk of deep infection, risk of delayed wound healing, risk of fracture nonunion, risk of fracture malunion, risk of pin site complications including infection and migration, risk of damage to local blood vessels or nerves, risk of inability to regain preinjury level of function, risk of chronic pain, risk of chronic swelling, risk of metatarsalgia, risk of need for further surgery, risk of DVT risk of PE risk of other medical complications and possibly loss of life or limb. The patient voiced her understanding of this and provided her verbal and written consent to go forward with surgery. Description of Procedure: The patient was identified in preoperative holding and the correct left leg was marked with my initials. I reviewed the consent form with the patient and all of her questions were answered. The patient was brought back to the operating room by anesthesia. She was positioned on the OR table and a general anesthetic was administered. A tourniquet was applied to the proximal aspect of the left leg. A bump was placed under the left buttock internally rotating the leg to neutral all bony prominences were well-padded. The left leg was then prepped and draped in the standard sterile fashion. Prior to starting surgery timeout was performed identifying the correct patient, operative extremity, and procedure. The patient's leg was then elevated, exsanguinated with an Esmarch bandage, and the tourniquet was inflated to 250 mmHg. A radiolucent triangle was placed under the knee to facilitate imaging. I began by making several stab incisions in the second and third webspace. I attempted to use a dental pick to percutaneously reduce her metatarsal neck fractures, after several attempts I was unable to reduce were really move the metatarsal heads Cecilai decided to make a webspace incision and perform an open reduction. A longitudinal incision was made in the second webspace. Dissection was carried down carefully to the subcutaneous tissues. The second metatarsal neck fracture was identified. The distal fragment was identified and a double-ended 0.0625 K wire was driven antegrade through the fracture, out the metatarsal head, and through the skin. I held the second metatarsal neck fracture reduced and an rn first assistant drove the K wire into the metatarsal shaft. I verified that the fracture was reduced and 3 planes with fluoroscopy. I then proceeded to perform a similar closed reduction pinning of the third metatarsal neck fracture. The third metatarsal neck fracture was more distal than the second so the reduction was a little more difficult to obtain. The double- ended 0.0625 K wire was driven out of the metatarsal head and skin. I held the third metatarsal reduced to the shaft and an rn first assistant drove the K wire across the fracture site up into the shaft. Clinically the fracture appeared to be reduced but on x-ray there was lateral displacement. Due to the difficulty in reducing the fracture accept that it. Final fluoroscopic images were taken verifying that the K wires were within bone at the fractures were adequately reduced. The wound was copiously irrigated and closed in layers. I verified that all instrument, sponge, and sharp counts were correct. The tourniquet was let down. A sterile dressing consisting of Betadine soaked Adaptic, 4 x 4, and web roll was applied. The drapes were taken down and a tall cam boot was applied. The patient was awoken from her anesthetic and transferred to PACU having tolerated the procedure well. Plan: The patient is going to be admitted for observation due to her diabetes and need for physical therapy. Internal medicine will be consulted for postoperative medical management. She can heel weight-bear in a tall boot. She will need twice daily pin site care with a Q-tip dipped in peroxide. She will need pain medication and aspirin for DVT prophylaxis. She will need follow -up in the office 2 weeks following discharge.
[2018-03-20] MEDS ORDERED: DEXTROSE 50%-WATER 50 ML SYRINGE IVP ONE (20:45)
[2018-03-20 20:58] LABS: Glucose,Whole Blood 108 mg/dL (75-99)
[2018-03-20 20:58] LABS: Glucose,Whole Blood 45 mg/dL (75-99)
[2018-03-20 20:58] LABS: Glucose,Whole Blood 40 mg/dL (75-99)
[2018-03-20] MEDS ORDERED: SODIUM CHLORIDE 0.9% 1,000 ML IV ONE (21:07)
[2018-03-20] MEDS: LACTATED RINGERS 1,000 ML IV SCH (22:57)
[2018-03-20] MEDS ORDERED: ALBUTEROL NEB (CONC) 2.5 MG/0.5 ML INHALATION PRN (23:20)
[2018-03-20] MEDS ORDERED: ALBUTEROL NEBULIZED 2.5 MG/3 ML INHALATION PRN (23:20)
[2018-03-20] MEDS ORDERED: hydrOXYzine HCL 10 MG TAB PO PRN (23:20)
[2018-03-20] MEDS: HYDROmorphone 1 MG/ML 1 ML SYRINGE IVP PRN (23:36)
[2018-03-21] MEDS: HYDROcodone/APAP 5-325MG 1 EACH TAB PO PRN ×3 (01:57→15:07)
[2018-03-21] MEDS: ceFAZolin IN SWFI 2 GM/20 ML SYRINGE IVP SCH ×2 (03:14→12:53)
[2018-03-21] MEDS: HYDROmorphone 1 MG/ML 1 ML SYRINGE IVP PRN ×2 (03:14→06:22)
--- NOTE | 2018-03-21 05:55 | FL ---
FLUOROSCOPY 31 seconds of fluoroscopy time were utilized during internal fixation of the left foot. 5 images docu ment the procedure.
[2018-03-21] MEDS ORDERED: LEVOTHYROXINE 100 MCG TAB PO SCH (06:30)
[2018-03-21 06:54] LABS: Glucose,Whole Blood 436 mg/dL (75-99)
[2018-03-21] MEDS: INSULIN ASPART 100 UNIT/ML 1 ML 10 ML VIAL SQ SCH ×4 (08:26→12:52)
[2018-03-21] MEDS: LACTATED RINGERS 1,000 ML IV SCH (08:59)
[2018-03-21] MEDS ORDERED: LORATADINE 10 MG TAB PO SCH (09:00)
[2018-03-21] MEDS ORDERED: CARIPRAZINE HCL 1.5 MG PO SCH (09:00)
[2018-03-21] MEDS ORDERED: VENLAFAXINE HCL ER 75 MG CAP PO SCH (09:00)
[2018-03-21] MEDS ORDERED: traMADol 50 MG TAB PO SCH (09:00)
[2018-03-21] MEDS ORDERED: PIOGLITAZONE 15 MG TAB PO SCH (09:00)
[2018-03-21] MEDS ORDERED: SYMBICORT 160-4.5 MCG INHALER INHALATION SCH (09:00)
[2018-03-21] MEDS ORDERED: ENOXAPARIN 30 MG/0.3 ML SYRINGE SQ SCH (09:00)
[2018-03-21] MEDS ORDERED: metFORMIN 500 MG TAB PO SCH (09:00)
[2018-03-21] MEDS ORDERED: CLOPIDOGREL 75 MG TAB PO SCH (09:00)
[2018-03-21 11:39] LABS: Glucose,Whole Blood 367 mg/dL (75-99)
[2018-03-21] MEDS ORDERED: INSULIN ASPART 100 UNIT/ML 1 ML 10 ML VIAL SQ SCH (12:30)
--- NOTE | 2018-03-21 13:35 | P.CONS ---
History of Present Illness - Reason for Consult Consult date: 03/21/18 Medical management - History of Present Illness This is a 58-year-old female who presents for surgical intervention of a metatarsal fracture to the left foot with Dr. Pradhan. Fracture occurred after tripping while walking on the sidewalk. Patient has a history of diabetes type [address] Harsh Rodríguez, hypothyroidism, gastroesophageal reflux disease, recurrent depression. Patient underwent surgical repair of the second third and fourth metatarsal fracture, post surgical repair pins in place. Patient is being seen for diabetes mellitus management and physical/OT therapy. Patient denies any complaints at this time. She denies chest pain, shortness of breath, nausea or vomiting, or diarrhea and constipation. She does report a history of having elevated blood sugars that has required hospitalization in the past, last hospitalization was at the end of January. She is followed by Dr. Jean. Patient does report history of coronary artery disease, deep vein thrombosis, hyperlipidemia, hypertension, [place], left renal cell carcinoma with partial nephrectomy 7 years ago, CVA, rheumatoid arthritis, and sleep apnea requiring a CPAP machine. Patient has a history of multidrug resistant organisms including ESBL, MRSA, VRE. Last day of positive culture with 10/01 for MRSA to the upper lip. Review of Systems All systems: negative Constitutional: Denies fatigue, Denies chills, Denies fever Eyes: denies blurred vision, denies pain Ears, nose, mouth and throat: Denies headache, Denies sore throat Cardiovascular: Reports decreased exercise tolerance, Reports dyspnea on exertion, Denies chest pain, Denies lightheadedness, Denies shortness of breath , Denies syncope Respiratory: Denies cough, Denies cough with sputum, Denies dyspnea, Denies excessive sputum, Denies hemoptysis, Denies home oxygen, Denies wheezing Gastrointestinal: Denies abdominal pain, Denies diarrhea, Denies nausea, Denies vomiting Genitourinary: Denies dysuria Musculoskeletal: Denies myalgias, reports left foot pain Integumentary: Denies pruritus, Denies rash Neurological: Denies numbness, Denies weakness Psychiatric: Denies anxiety, Denies depression Endocrine: Denies fatigue, Denies weight change Past Medical History Past Medical History: Coronary Artery Disease (CAD), Cancer, COPD, CVA/TIA, Diabetes Mellitus, Deep Vein Thrombosis (DVT), Eye Disorder, GERD/Reflux, Hyperlipidemia, Hypertension, Myocardial Infarction ([place]), Renal Disease, Rheumatoid Arthritis (RA), Sleep Apnea/CPAP/BIPAP, Syncope, Thyroid Disorder Additional Past Medical History / Comment(s): 09/16/16 with SBO with surgery/ possible septic emboli with cavitary lesions bilateral lungs. Hx: left renal cell carcinoma with partial nephrectomy 7 yrs ago, CVA 4, last 1 month ago, no residual effects, DVT left leg 7-8 yrs ago, hypothyroidism, chronic back pain, hx UTI with sepsis secondary to ESBL producing E. coli Nov2015 requiring PICC line insertion for IV antibiotics, restless leg syndrome, peripheral neropathy. Hx bilateral glaucoma, hx syncope r/t low blood sugars. No CPAP use. Last Myocardial Infarction Date:: 2012 History of Any Multi-Drug Resistant Organisms: ESBL, MRSA, VRE Year Discovered:: 05/07/16 ESBL, 05/15/16 VRE, MRSA 09/2017 - upper lip MDRO Source:: URINE E.COLI, EC GALLINARUM Past Surgical History: Appendectomy, Bowel Resection, Section, Heart Catheterization, Hernia Repair Additional Past Surgical History / Comment(s): 09/30 exploratory laparotomy, lysis of adhesions bowel resection d/t obstruction. Hx: repair incarcerated incisional hernia with abdominal washout, thyroidectomy(non functioning), heart cath 06/28 - 100% occluded, unable to stent, partial nephrectomy for left kidney renal cell carcinoma, PICC line insertion (since removed), colonoscopy, bilateral cataract removal with lens implants, 2 Sections. Past Anesthesia/Blood Transfusion Reactions: No Reported Reaction Past Psychological History: Anxiety, Depression Additional Psychological History / Comment(s): TAKES EFFEXOR FOR DEPRESSION STATED SHE FEELS MAINTAINED ON THAT MEDICATION.DENIES ANY THOUGHTS OF HARMING SELF. Pt lives with her significant other in [facility] and is independant. She is able to drive, but does not own a car. She arranges rides thru [employer] or uses a cab. Smoking Status: Former smoker (Patient quit smoking 2 weeks ago. A history of smoking 40 years, 1 pack a day) Past Alcohol Use History: None Reported Additional Past Alcohol Use History / Comment(s): STARTED SMOKING AT AGE 8, smoked one to one and half packs per day for 50 years. She started Chantix on 10/26/2017, cut back to 1-2 ciagrettes and quit smoking 2 weeks ago. 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 Past Drug Use History: Cocaine, Marijuana Additional Drug Use History / Comment(s): USES MARIJUANA 1-2X monthly, last used 2 weeks ago. Hx of addiction to cocaine, has not used in 20 yrs. - Past Family History Sister(s) Family Medical History: Cancer, Sleep Apnea/CPAP/BIPAP Additional Family Medical History / Comment(s): Patient has one sister that from liver cancer, borderline DM, PAD, hep. c. Brother(s) Family Medical History: Cancer, Coronary Artery Disease (CAD), Deep Vein Thrombosis (DVT), Hyperlipidemia Additional Family Medical History / Comment(s): Patient has 1 brother with past ETOH, past drug abuse, DVT's. She has a second brother that has from throat cancer. Daughter(s) Family Medical History: Diabetes Mellitus, Myocardial Infarction ([place]) Additional Family Medical History / Comment(s): Daughter at 23 yrs old from massive [place]. Father Family Medical History: Myocardial Infarction ([place]) Additional Family Medical History / Comment(s): from mi at age 44 Mother Family Medical History: Cancer Additional Family Medical History / Comment(s): maeve breasts removed d/t cancer, hysterectomy d/t cancer. Mother from metastatic breast cancer. Medications and Allergies Home Medications Medication Instructions Recorded Confirmed Type Levothyroxine Sodium [Synthroid] 200 mcg PO QAM 04/28/15 03/20/18 History Aspirin [Adult Low Dose Aspirin EC] 81 mg PO HS 09/04/16 03/20/18 History Albuterol Inhaler [Ventolin Hfa 2 puff INHALATION RT-Q6H PRN 10/21/16 03/20/18 History Inhaler] Loratadine [Claritin] 10 mg PO QAM 10/21/16 03/20/18 History Venlafaxine HCl [Venlafaxine HCl 225 mg PO QAM 10/21/16 03/20/18 History ER] Cariprazine HCl [Vraylar] 1.5 mg PO DAILY 05/05/17 03/20/18 History Clopidogrel [Plavix] 75 mg PO DAILY 07/31/17 03/20/18 History Meclizine [Antivert] 12.5 - 25 mg PO TID PRN 07/31/17 03/20/18 History metFORMIN HCL [Glucophage] 1,000 mg PO BID 07/31/17 03/20/18 History Multivitamins, Thera [Multivitamin 1 tab PO DAILY 08/15/17 03/20/18 History (formulary)] hydrOXYzine HCL 10 mg PO HS PRN 09/08/17 03/20/18 History Albuterol Nebulized (Conc) 2.5 mg INHALATION RT-Q6H PRN 10/29/17 03/20/18 History [Ventolin Nebulized (Conc)] INSULIN LISPRO (HumaLOG) [humaLOG] See Protocol SQ ACHS 10/29/17 03/20/18 History Pioglitazone [Actos] 15 mg PO QAM 10/29/17 03/20/18 History Atorvastatin [Lipitor] 80 mg PO HS #30 tab 10/30/17 03/20/18 Rx INSULIN LISPRO (HumaLOG) [humaLOG] 5 unit SQ AC-TID 10/30/17 03/20/18 History Metoprolol Succinate (ER) [Toprol 25 mg PO HS 10/30/17 03/20/18 History XL] Cyanocobalamin [Vitamin B-12 1,000 mcg SQ QMONTH 03/18/18 03/20/18 History Injection] Insulin Degludec [Tresiba 7 unit SQ AC-SUPPER 03/18/18 03/20/18 History Flextouch U-100] Lisinopril [Zestril] 10 mg PO HS 03/18/18 03/20/18 History Pantoprazole Sodium [Protonix] 40 mg PO HS 03/18/18 03/20/18 History traMADol HCL [Ultram] 50 mg PO BID 03/18/18 03/20/18 History Budesonide-Formot 160-4.5 Mcg 2 puff INHALATION BID 03/20/18 03/20/18 History [Symbicort 160-4.5 Mcg Inhaler] Allergies Allergy/AdvReac Type Severity Reaction Status Date / Time grass pollen Allergy Unknown Verified 03/20/18 15:12 latex Allergy Rash/Hives Verified 03/20/18 15:12 Sulfa (Sulfonamide Allergy Rash/Hives/ Verified 03/20/18 15:12 Antibiotics) Swelling venom-honey bee Allergy Anaphylaxis Verified 03/20/18 15:12 morphine AdvReac Decreased Verified 03/20/18 15:12 Blood Pressure prochlorperazine edisylate AdvReac Vomiting Verified 03/20/18 15:12 [From Compazine] Physical Exam Vitals: Vital Signs Temp Pulse Resp BP BP Pulse Ox 03/21/18 08:24 107 H 03/21/18 08:23 97.9 F 111 H 16 177/86 97 03/20/18 23:36 94 164/81 03/20/18 23:00 102 H 166/80 03/20/18 22:45 101 H 170/83 03/20/18 22:30 172/84 03/20/18 22:15 169/83 03/20/18 22:00 110 H 161/70 03/20/18 21:45 108 H 176/86 03/20/18 21:30 98.9 F 96 16 167/74 97 03/20/18 21:06 97 16 173/81 97 03/20/18 20:45 102 H 16 164/79 100 03/20/18 20:30 104 H 16 181/89 100 03/20/18 20:20 97.9 F 94 10 L 188/85 97 03/20/18 15:59 99.5 F 89 16 172/78 93 L Intake and Output 03/20/18 03/21/18 03/21/18 22:59 06:59 14:59 Intake Total 1000 800 320 Output Total 10 Balance 990 800 320 Intake: IV 1000 Intake, IV Titration 800 Amount Lactated Ringers 1,000 ml 800 @ 100 mls/hr IV .Q10H [facility] Rx#:[id number] Oral 320 Output: Estimated Blood Loss 10 Other: Voiding Method Bedpan # Voids 1 3 Weight 65.771 kg Gen: This is a 58-year-old female, in no acute distress, cooperative, average habitus HEENT: Head is atraumatic, normocephalic. Pupils equal, round. Sclerae is anicteric. NECK: Supple. No JVD. No lymphadenopathy. No thyromegaly. LUNGS: Clear to auscultation. No wheezes or rhonchi. No intercostal retractions. HEART: Regular rate and rhythm. No murmur. ABDOMEN: Soft. Bowel sounds are present. No masses. No tenderness. EXTREMITIES: No pedal edema. No calf tenderness. OCL noted to left lower extremity, surgical dressing in place, pins in place, no drainage noted at the site. NEUROLOGICAL: Patient is awake, alert and oriented x3. Cranial nerves 2 through 12 are grossly intact. Results Labs: Abnormal Lab Results - Last 24 Hours (Table) 03/20/18 03/20/18 03/20/18 Range/Units 15:46 15:53 16:39 POC Glucose (mg/dL) 299 H 272 H 273 H (75-99) mg/dL 03/20/18 03/20/18 03/20/18 Range/Units 18:08 20:38 20:40 POC Glucose (mg/dL) 156 H 40 L 45 L (75-99) mg/dL 03/20/18 03/21/18 03/21/18 Range/Units 20:55 06:51 11:37 POC Glucose (mg/dL) 108 H 436 H 367 H (75-99) mg/dL Assessment and Plan Plan: 1. Metatarsal fracture status post surgical intervention, tall cam boot in place, pain care of Q-tip dipped in peroxide twice daily, heel weightbearing Intal boot, consult for physical therapy. Pain management: transition from IV pain management to by mouth pain management, [place] 5-325 as needed every 6 hours , and tramadol 50 mg by mouth twice a day 2. Diabetes mellitus type 2, continue Levemir 7 units before meals, NovoLog 5 units before meals 3 times a day, NovoLog 2 units before meals at bedtime, NovoLog sliding scale as needed, continue metformin, continue Actos 3. Hypertension continues lisinopril, continue metoprolol 4. COPD, continue Ventolin, continue Symbicort 5. Hyperlipidemia, continue Lipitor 6. Coronary artery disease, continue aspirin, Plavix 7. Hypothyroidism, continue Synthroid next 8. Depression, continue Effexor 9. GERD, continue Protonix 40 mg by mouth at night 10. ALLERGIC rhinitis, continue loratadine 11. DVT prophylaxis, continue Lovenox Discharge plan: Home with PT/OT X Impression and plan of care have been directed as dictated by the signing physician. Alexa Rubio nurse practitioner acting as scribe for signing physician.
--- NOTE | 2018-03-21 14:14 | P.DS ---
Providers Date of admission: 03/20/2018 Expected date of discharge: 03/21/18 Attending physician: Charly Pradhan Consults: 03/20/18 20:24 Consult Physician Routine Consulting Provider: Sahra Elder Consult Reason/Comments: post op medical management Do you want consulting provider notified?: Yes, Notify in am Primary care physician: Sahra Elder - Discharge Diagnosis(es) (1) Closed fracture of neck of metatarsal bone of left foot Current Visit: Yes Status: Acute (2) CAD (coronary artery disease) Current Visit: No Status: Acute (3) HTN (hypertension) Current Visit: No Status: Acute (4) Hyperlipemia Current Visit: No Status: Acute (5) Poorly controlled type 2 diabetes mellitus Current Visit: No Status: Acute Hospital Course: This is a pleasant 58-year-old female who presented with close completely displaced left second and third metatarsal neck fractures and minimally displaced left fourth metatarsal neck fracture. She was admitted for an open reduction and percutaneous pinning of the left second metatarsal fracture and left third metatarsal neck fracture. The patient tolerated the procedure well and did well postoperatively. She has been discontinued from IV narcotic pain medications. Her pain continues to be controlled with [place] 5 mg/325 mg. Patient does for she is ready for discharge home. She has a wheeled walker at home which she may use to eat and ambulation. Condition on day of discharge stable. Patient will be discharged home. Patient was cleared preoperatively for surgery by Dr. Elder. Patient currently denies any nausea, vomiting, fever, or chills. Patient is eating and voiding freely without difficulty. Patient may shower Tegaderm dressing intact. Patient should keep dressing and Pedro wrap intact over the left lower extremity. She should keep the dressing dry. She may elevate and apply ice for comfort and support as needed over left lower extremity. She may ambulate on heel only on the left lower extremity. An opioid start talking form has been signed by the patient and myself and placed in the patient's chart. MAPS has been reviewed today, 03/21/2018, with an overall overdosed risk of 410. Prescriptions for [place] 5 mg/325 mg 1-2 tabs every 6 hours as needed for pain, dispensed #56 and aspirin 325 mg 1 tab by mouth twice per day dispense #28 have been written, signed, and placed in the patient's chart. Patient does have a medical history which includes diabetes mellitus type 2, hypertension, COPD, hyperlipidemia, coronary artery disease, and hypothyroidism. Patient should discontinue Ultram at discharge while taking prescribed [place] 5 mg/325 mg. She may resume other prescribed home medications but should hold aspirin 81 mg while taking prescribed aspirin 325 mg. She may resume aspirin 81 mg following completion of her aspirin 325 mg. Physical Exam on day of discharge: Patient is awake, alert, and oriented 3 Vital signs stable Good chest excursion with deep inspiration and expiration Abdomen soft nontender No signs or symptoms of DVT; no calf pain Dressing over the left lower extremity is clean, dry, and intact No active drainage or obvious infection over the left foot or toes of left foot Patient is able to wiggle toes of the left foot No pain with palpation over the left knee Procedures: Open reduction and percutaneous pinning of the left second metatarsal neck fracture and left third metatarsal neck fracture. Patient Condition at Discharge: Stable Plan - Discharge Summary New Discharge Prescriptions: New Aspirin 325 mg PO BID #28 tab Hydrocodone/Acetaminophen [[place] 5-325] 1 - 2 each PO Q6HR PRN #56 tab PRN Reason: Pain No Action Levothyroxine Sodium [Synthroid] 200 mcg PO QAM Aspirin [Adult Low Dose Aspirin EC] 81 mg PO HS Venlafaxine HCl [Venlafaxine HCl ER] 225 mg PO QAM Loratadine [Claritin] 10 mg PO QAM Albuterol Inhaler [Ventolin Hfa Inhaler] 2 puff INHALATION RT-Q6H PRN PRN Reason: Shortness Of Breath Cariprazine HCl [Vraylar] 1.5 mg PO DAILY metFORMIN HCL [Glucophage] 1,000 mg PO BID Meclizine [Antivert] 12.5 - 25 mg PO TID PRN PRN Reason: Vertigo Clopidogrel [Plavix] 75 mg PO DAILY Multivitamins, Thera [Multivitamin (formulary)] 1 tab PO DAILY hydrOXYzine HCL 10 mg PO HS PRN PRN Reason: Itching Pioglitazone [Actos] 15 mg PO QAM INSULIN LISPRO (HumaLOG) [humaLOG] See Protocol SQ ACHS Albuterol Nebulized (Conc) [Ventolin Nebulized (Conc)] 2.5 mg INHALATION RT- Q6H PRN PRN Reason: Shortness Of Breath INSULIN LISPRO (HumaLOG) [humaLOG] 5 unit SQ AC-TID Metoprolol Succinate (ER) [Toprol XL] 25 mg PO HS Atorvastatin [Lipitor] 80 mg PO HS #30 tab Lisinopril [Zestril] 10 mg PO HS Cyanocobalamin [Vitamin B-12 Injection] 1,000 mcg SQ QMONTH Pantoprazole Sodium [Protonix] 40 mg PO HS Insulin Degludec [Tresiba Flextouch U-100] 7 unit SQ AC-SUPPER traMADol HCL [Ultram] 50 mg PO BID Budesonide-Formot 160-4.5 Mcg [Symbicort 160-4.5 Mcg Inhaler] 2 puff INHALATION BID Discharge Medication List Levothyroxine Sodium [Synthroid] 200 mcg PO QAM 04/28/15 [History] Aspirin [Adult Low Dose Aspirin EC] 81 mg PO HS 09/04/16 [History] Albuterol Inhaler [Ventolin Hfa Inhaler] 2 puff INHALATION RT-Q6H PRN 10/21/16 [ History] Loratadine [Claritin] 10 mg PO QAM 10/21/16 [History] Venlafaxine HCl [Venlafaxine HCl ER] 225 mg PO QAM 10/21/16 [History] Cariprazine HCl [Vraylar] 1.5 mg PO DAILY 05/05/17 [History] Clopidogrel [Plavix] 75 mg PO DAILY 07/31/17 [History] Meclizine [Antivert] 12.5 - 25 mg PO TID PRN 07/31/17 [History] metFORMIN HCL [Glucophage] 1,000 mg PO BID 07/31/17 [History] Multivitamins, Thera [Multivitamin (formulary)] 1 tab PO DAILY 08/15/17 [History ] hydrOXYzine HCL 10 mg PO HS PRN 09/08/17 [History] Albuterol Nebulized (Conc) [Ventolin Nebulized (Conc)] 2.5 mg INHALATION RT-Q6H PRN 10/29/17 [History] INSULIN LISPRO (HumaLOG) [humaLOG] See Protocol SQ ACHS 10/29/17 [History] Pioglitazone [Actos] 15 mg PO QAM 10/29/17 [History] Atorvastatin [Lipitor] 80 mg PO HS #30 tab 10/30/17 [Rx] INSULIN LISPRO (HumaLOG) [humaLOG] 5 unit SQ AC-TID 10/30/17 [History] Metoprolol Succinate (ER) [Toprol XL] 25 mg PO HS 10/30/17 [History] Cyanocobalamin [Vitamin B-12 Injection] 1,000 mcg SQ QMONTH 03/18/18 [History] Insulin Degludec [Tresiba Flextouch U-100] 7 unit SQ AC-SUPPER 03/18/18 [History ] Lisinopril [Zestril] 10 mg PO HS 03/18/18 [History] Pantoprazole Sodium [Protonix] 40 mg PO HS 03/18/18 [History] traMADol HCL [Ultram] 50 mg PO BID 03/18/18 [History] Budesonide-Formot 160-4.5 Mcg [Symbicort 160-4.5 Mcg Inhaler] 2 puff INHALATION BID 03/20/18 [History] Aspirin 325 mg PO BID #28 tab 03/21/18 [Rx] Hydrocodone/Acetaminophen [[place] 5-325] 1 - 2 each PO Q6HR PRN #56 tab 03/21/18 [Rx] Follow up Appointment(s)/Referral(s): Charly Pradhan MD [Medical Doctor] - 10 Days (Patient may follow-up with Dr. Pradhan at [facility] in 7-10 days following discharge. ) Activity/Diet/Wound Care/Special Instructions: 1. Keep dressing over the left lower extremity clean, dry, and intact 2. Patient may ambulate on heel only on the left lower extremity 3. Patient may use wheeled walker to aid in ambulation as needed 4. Patient may elevate and apply ice over the left lower extremity for comfort support as needed 5. Take medications as prescribed Discharge Disposition: HOME SELF-CARE
[2018-03-21 14:49] VITALS: BP 163/87; PULSE 81; RESP 17; TEMP 98.4
[2018-03-21] MEDS ORDERED: INSULIN DETEMIR 100 UNIT/ML 10 ML VIAL SQ SCH (17:30)
[2018-03-21] MEDS ORDERED: METOPROLOL SUCCINATE (ER) 25 MG TAB.ER.24H PO SCH (21:00)
[2018-03-21] MEDS ORDERED: ASPIRIN 81 MG PO SCH (21:00)
[2018-03-21] MEDS ORDERED: LISINOPRIL 10 MG TAB PO SCH (21:00)
[2018-03-21] MEDS ORDERED: ATORVASTATIN 80 MG TAB PO SCH (21:00)
[2018-03-21] MEDS ORDERED: PANTOPRAZOLE 40 MG TABLET PO SCH (21:00)
[2018-04-01] MEDS ORDERED: CYANOCOBALAMIN 1,000 MCG/ML 1 ML VIAL SQ SCH (09:00)
== END 2018-03-21 15:30 | disposition home or self-care (01) ==
LOC: OR 14:44 → 3SUR 20:31 → OR 03-21 15:30
PROVIDERS: ATTEND Orthopaedic Surgery
DX: S92.322A Displaced fracture of second metatarsal bone, left foot, initial encounter for closed fracture (principal); S92.332A Displaced fracture of third metatarsal bone, left foot, initial encounter for closed fracture; S92.342A Displaced fracture of fourth metatarsal bone, left foot, initial encounter for closed fracture; W01.0XXA Fall on same level from slipping, tripping and stumbling without subsequent striking against object, initial encounter; F17.210 Nicotine dependence, cigarettes, uncomplicated; I25.10 Atherosclerotic heart disease of native coronary artery without angina pectoris; I10 Essential (primary) hypertension; K21.9 Gastro-esophageal reflux disease without esophagitis; E78.2 Mixed hyperlipidemia; E10.65 Type 1 diabetes mellitus with hyperglycemia; Z79.4 Long term (current) use of insulin; R21 Rash and other nonspecific skin eruption; F32.9 Major depressive disorder, single episode, unspecified; I80.9 Phlebitis and thrombophlebitis of unspecified site; H81.49 Vertigo of central origin, unspecified ear; E03.9 Hypothyroidism, unspecified; J44.9 Chronic obstructive pulmonary disease, unspecified; Z86.718 Personal history of other venous thrombosis and embolism; Z79.02 Long term (current) use of antithrombotics/antiplatelets; I69.359 Hemiplegia and hemiparesis following cerebral infarction affecting unspecified side; Z82.49 Family history of ischemic heart disease and other diseases of the circulatory system; Z79.82 Long term (current) use of aspirin; Z79.890 Hormone replacement therapy; Z79.899 Other long term (current) drug therapy; Z79.891 Long term (current) use of opiate analgesic; Z79.51 Long term (current) use of inhaled steroids; Z88.5 Allergy status to narcotic agent; Z88.2 Allergy status to sulfonamides; Z88.8 Allergy status to other drugs, medicaments and biological substances; Z91.040 Latex allergy status
CPT/HCPCS: 94640; 97162; 73620; 28485 ×2; C1713; J2250; J2405; J2001; J3010; J1650; J1170 ×2; J2704; J0690 ×2

== ENCOUNTER 2018-04-21 17:56 | Emergency (ER) | payer OTHER ==
[2018-04-21] MEDS ORDERED: ONDANSETRON 4 MG/2 ML VIAL IVP STA (18:55)
[2018-04-21] MEDS ORDERED: PANTOPRAZOLE 40 MG/10 ML VIAL IVP STA (18:55)
[2018-04-21] MEDS ORDERED: HYDROmorphone 1 MG/ML 1 ML SYRINGE IVP STA (18:55)
[2018-04-21] MEDS ORDERED: SODIUM CHLORIDE 0.9% 1,000 ML IV STA ×2 (18:55)
[2018-04-21] MEDS ORDERED: KETOROLAC 30 MG/ML 1 ML VIAL IVP STA (18:55)
--- NOTE | 2018-04-21 18:59 | ED ---
Abdominal Pain HPI - General Source: patient, RN notes reviewed, old records reviewed Mode of arrival: ambulatory Limitations: no limitations <Shaista Hidalgo - Last Filed: 04/22/18 04:22> <Yanci Lion - Last Filed: 04/22/18 05:09> - General Chief Complaint: Abdominal Pain Stated Complaint: Flank pain Time Seen by Provider: 04/21/18 18:40 - History of Present Illness Initial Comments: Patient is a 58-year-old female presents emergency department today acutely right-sided abdominal pain and flank pain. Patient denies any changes in urination or bowel habits. Patient states she's been no chest pain or shortness of breath. Patient relates that her pain has been progressive over the past 2 days. She does report she's been vomiting. Patient states she's had diarrhea as well. His surgical history is quite extensive including bowel resection, cholecystectomy appendectomy, sections. Patient has had no recent fevers or chills. She reports that he pain will occasionally radiate towards the flank and side but no significant back pain. (Shaista Hidalgo) - Related Data Home Medications Medication Instructions Recorded Confirmed Levothyroxine Sodium [Synthroid] 200 mcg PO QAM 04/28/15 04/21/18 Aspirin [Adult Low Dose Aspirin EC] 81 mg PO HS 09/04/16 04/21/18 Albuterol Inhaler [Ventolin Hfa 2 puff INHALATION RT-Q6H PRN 10/21/16 04/21/18 Inhaler] Loratadine [Claritin] 10 mg PO QAM 10/21/16 04/21/18 Venlafaxine HCl [Venlafaxine HCl 225 mg PO QAM 10/21/16 04/21/18 ER] Cariprazine HCl [Vraylar] 1.5 mg PO DAILY 05/05/17 04/21/18 Meclizine [Antivert] 12.5 - 25 mg PO TID PRN 07/31/17 04/21/18 metFORMIN HCL [Glucophage] 1,000 mg PO BID 07/31/17 04/21/18 Multivitamins, Thera [Multivitamin 1 tab PO DAILY 08/15/17 04/21/18 (formulary)] hydrOXYzine HCL 10 mg PO HS PRN 09/08/17 04/21/18 Albuterol Nebulized (Conc) 2.5 mg INHALATION RT-Q6H PRN 10/29/17 04/21/18 [Ventolin Nebulized (Conc)] INSULIN LISPRO (HumaLOG) [humaLOG] See Protocol SQ ACHS 10/29/17 04/21/18 Pioglitazone [Actos] 15 mg PO QAM 10/29/17 04/21/18 INSULIN LISPRO (HumaLOG) [humaLOG] 5 unit SQ AC-TID 10/30/17 04/21/18 Metoprolol Succinate (ER) [Toprol 25 mg PO HS 10/30/17 04/21/18 XL] Insulin Degludec [Tresiba 7 unit SQ AC-SUPPER 03/18/18 04/21/18 Flextouch U-100] Lisinopril [Zestril] 10 mg PO HS 03/18/18 04/21/18 Pantoprazole Sodium [Protonix] 40 mg PO HS 03/18/18 04/21/18 Budesonide-Formot 160-4.5 Mcg 2 puff INHALATION BID 03/20/18 04/21/18 [Symbicort 160-4.5 Mcg Inhaler] Atorvastatin [Lipitor] 40 mg PO HS 04/21/18 04/21/18 Cephalexin [Keflex] 500 mg PO QID 04/21/18 04/21/18 Cyanocobalamin (Vitamin B-12) 1,000 mcg PO Q30D 04/21/18 04/21/18 [Vitamin B-12] Hydrocodone/Acetaminophen [Reagan 1 - 2 tab PO Q6HR PRN 04/21/18 04/21/18 5-325] Previous Rx's Medication Instructions Recorded Ibuprofen 600 mg PO TID #20 tablet 04/21/18 Sucralfate [Carafate] 1 gm PO ACHS #20 tablet 04/21/18 Allergies Allergy/AdvReac Type Severity Reaction Status Date / Time grass pollen Allergy Unknown Verified 04/21/18 19:24 latex Allergy Rash/Hives Verified 04/21/18 19:24 Sulfa (Sulfonamide Allergy Rash/Hives/ Verified 04/21/18 19:24 Antibiotics) Swelling venom-honey bee Allergy Anaphylaxis Verified 04/21/18 19:24 morphine AdvReac Decreased Verified 04/21/18 19:24 Blood Pressure prochlorperazine edisylate AdvReac Vomiting Verified 04/21/18 19:24 [From Compazine] Review of Systems ROS Other: All systems not noted in ROS Statement are negative. <Shaista Hidalgo - Last Filed: 04/22/18 04:22> ROS Other: All systems not noted in ROS Statement are negative. <Yanci Lion - Last Filed: 04/22/18 05:09> ROS Statement: Those systems with pertinent positive or pertinent negative responses have been documented in the HPI. Past Medical History Past Medical History: Coronary Artery Disease (CAD), Cancer, COPD, CVA/TIA, Diabetes Mellitus, Deep Vein Thrombosis (DVT), Eye Disorder, GERD/Reflux, Hyperlipidemia, Hypertension, Myocardial Infarction ([place]), Renal Disease, Rheumatoid Arthritis (RA), Sleep Apnea/CPAP/BIPAP, Syncope, Thyroid Disorder Additional Past Medical History / Comment(s): 09/16/16 with SBO with surgery/ possible septic emboli with cavitary lesions bilateral lungs. Hx: left renal cell carcinoma with partial nephrectomy 7 yrs ago, CVA 4, last 1 month ago, no residual effects, DVT left leg 7-8 yrs ago, hypothyroidism, chronic back pain, hx UTI with sepsis secondary to ESBL producing E. coli 2015 requiring PICC line insertion for IV antibiotics, restless leg syndrome, peripheral neropathy. Hx bilateral glaucoma, hx syncope r/t low blood sugars. No CPAP use. Last Myocardial Infarction Date:: 2012 History of Any Multi-Drug Resistant Organisms: ESBL, MRSA, VRE Date of last positivie culture/infection: 05/07/16 ESBL, 05/15/16 VRE, MRSA 2017 - upper lip MDRO Source:: URINE E.COLI, EC GALLINARUM Past Surgical History: Appendectomy, Bowel Resection, Section, Heart Catheterization, Hernia Repair Additional Past Surgical History / Comment(s): 09/30 exploratory laparotomy, lysis of adhesions bowel resection d/t obstruction. Hx: repair incarcerated incisional hernia with abdominal washout, thyroidectomy(non functioning), heart cath 06/28 - 100% occluded, unable to stent, partial nephrectomy for left kidney renal cell carcinoma, PICC line insertion (since removed), colonoscopy, bilateral cataract removal with lens implants, 2 Sections. Past Anesthesia/Blood Transfusion Reactions: No Reported Reaction Past Psychological History: Anxiety, Depression Smoking Status: Former smoker Past Alcohol Use History: None Reported Past Drug Use History: Cocaine, Marijuana - Past Family History Sister(s) Family Medical History: Cancer, Sleep Apnea/CPAP/BIPAP Additional Family Medical History / Comment(s): Patient has one sister that from liver cancer, borderline DM, PAD, hep. c. Brother(s) Family Medical History: Cancer, Coronary Artery Disease (CAD), Deep Vein Thrombosis (DVT), Hyperlipidemia Additional Family Medical History / Comment(s): Patient has 1 brother with past ETOH, past drug abuse, DVT's. She has a second brother that has from throat cancer. Daughter(s) Family Medical History: Diabetes Mellitus, Myocardial Infarction ([place]) Additional Family Medical History / Comment(s): Daughter at 23 yrs old from massive [place]. Father Family Medical History: Myocardial Infarction ([place]) Additional Family Medical History / Comment(s): from mi at age 44 Mother Family Medical History: Cancer Additional Family Medical History / Comment(s): maeve breasts removed d/t cancer, hysterectomy d/t cancer. Mother from metastatic breast cancer. <Shaista Hidalgo - Last Filed: 04/22/18 04:22> General Exam Limitations: no limitations General appearance: alert, in no apparent distress Head exam: Present: atraumatic, normocephalic, normal inspection Eye exam: Present: normal appearance, PERRL, EOMI. Absent: scleral icterus, conjunctival injection, periorbital swelling ENT exam: Present: normal exam, mucous membranes moist Neck exam: Present: normal inspection. Absent: tenderness, meningismus, lymphadenopathy Respiratory exam: Present: normal lung sounds bilaterally. Absent: respiratory distress, wheezes, rales, rhonchi, stridor Cardiovascular Exam: Present: regular rate, normal rhythm, normal heart sounds. Absent: systolic murmur, diastolic murmur, rubs, gallop, clicks GI/Abdominal exam: Present: soft, tenderness (Right upper quadrant and right flank tenderness.), normal bowel sounds. Absent: distended, guarding, rebound, rigid Extremities exam: Present: normal inspection, full ROM, normal capillary refill. Absent: tenderness, pedal edema, joint swelling, calf tenderness Back exam: Present: normal inspection Neurological exam: Present: alert, oriented X3, CN II-XII intact Psychiatric exam: Present: normal affect, normal mood Skin exam: Present: warm, dry, intact, normal color. Absent: rash <Shaista Hidalgo - Last Filed: 04/22/18 04:22> <Yanci Lion P - Last Filed: 04/22/18 05:09> - General Exam Comments Initial Comments: 58-year-old female. Alert and oriented. Patient appears in no acute distress. (Shaista Hidalgo) Vital Signs 04/21/18 04/21/18 04/21/18 18:31 21:10 22:53 Temperature 98.2 F 97.2 F L Pulse Rate 104 H 87 81 Respiratory 20 15 17 Rate Blood Pressure 116/78 138/74 112/72 O2 Sat by Pulse 98 97 98 Oximetry Medical Decision Making - Lab Data Result diagrams: 04/21/18 19:12 04/21/18 19:12 - Radiology Data Radiology results: report reviewed <Shaista Hidalgo - Last Filed: 04/22/18 04:22> - Lab Data Result diagrams: 04/21/18 19:12 04/21/18 19:12 <Yanci Lion P - Last Filed: 04/22/18 05:09> - Medical Decision Making 50-year-old female presents Patient reports a chief complaint of right upper quadrant right flank abdominal pain. Patient reports her pain is mainly right ribs in the low. Patient's lab work was negative for acute process. EKG shows no significant changes. Patient white blood cell count and liver enzymes are within normal limits. Patient continued to complain of some right upper quadrant pain. Concern for possible colitis. At this time Patient did have CT which was negative for any acute process. She does feel better on reevaluation and denies any significant pain. While in the emergency department she did have episodes of low blood sugar and was given juice and then half an amp 50. She reports improvement of her symptoms. Discussed the Patient can follow-up with primary care physician tomorrow. Discussed strict return parameters. ( Shaista Hidalgo) I was available for consultation in the emergency department. The history and physical exam were done by the midlevel provider. I was consulted for this patient's care. I reviewed the case with the midlevel provider and based on their presentation of the patient, I agree with the assessment, medical decision making and plan of care as documented. (Yanci Lion) - Lab Data Lab Results 04/21/18 04/21/18 04/21/18 Range/Units 19:01 19:12 19:12 WBC 5.5 (3.8-10.6) k/uL RBC 3.86 (3.80-5.40) m/uL Hgb 11.3 L (11.4-16.0) gm/dL Hct 34.4 (34.0-46.0) % MCV 89.0 (80.0-100.0) fL MCH 29.2 (25.0-35.0) pg MCHC 32.8 (31.0-37.0) g/dL RDW 14.3 (11.5-15.5) % Plt Count 255 (150-450) k/uL Neutrophils % 46 % Lymphocytes % 43 % Monocytes % 4 % Eosinophils % 5 % Basophils % 0 % Neutrophils # 2.5 (1.3-7.7) k/uL Lymphocytes # 2.4 (1.0-4.8) k/uL Monocytes # 0.2 (0-1.0) k/uL Eosinophils # 0.3 (0-0.7) k/uL Basophils # 0.0 (0-0.2) k/uL PT (9.0-12.0) sec INR (<1.2) APTT (22.0-30.0) sec Sodium 140 (137-145) mmol/L Potassium 4.5 (3.5-5.1) mmol/L Chloride 108 H (98-107) mmol/L Carbon Dioxide 21 L (22-30) mmol/L Anion Gap 11 mmol/L BUN 18 H (7-17) mg/dL Creatinine 0.80 (0.52-1.04) mg/dL Est GFR (CKD-EPI)AfAm >90 (>60 ml/min/1.73 sqM) Est GFR (CKD-EPI)NonAf 82 (>60 ml/min/1.73 sqM) Glucose 162 H (74-99) mg/dL POC Glucose (mg/dL) (75-99) mg/dL POC Glu Veterinary Poultry Inspector ID Calcium 10.4 H (8.4-10.2) mg/dL Total Bilirubin 0.3 (0.2-1.3) mg/dL AST 19 (14-36) U/L ALT 20 (9-52) U/L Alkaline Phosphatase 84 (38-126) U/L Total Protein 7.2 (6.3-8.2) g/dL Albumin 4.3 (3.5-5.0) g/dL Amylase 36 (30-110) U/L Lipase 36 (23-300) U/L Urine Color Yellow Urine Appearance Clear (Clear) Urine pH 5.0 (5.0-8.0) Ur Specific [place] 1.024 (1.001-1.035) Urine Protein Negative (Negative) Urine Glucose (UA) 4+ H (Negative) Urine Ketones Negative (Negative) Urine Blood Negative (Negative) Urine Nitrite Negative (Negative) Urine Bilirubin Negative (Negative) Urine Urobilinogen <2.0 (<2.0) mg/dL Ur Leukocyte Esterase Negative (Negative) 04/21/18 04/21/18 04/21/18 Range/Units 19:12 21:35 21:54 WBC (3.8-10.6) k/uL RBC (3.80-5.40) m/uL Hgb (11.4-16.0) gm/dL Hct (34.0-46.0) % MCV (80.0-100.0) fL MCH (25.0-35.0) pg MCHC (31.0-37.0) g/dL RDW (11.5-15.5) % Plt Count (150-450) k/uL Neutrophils % % Lymphocytes % % Monocytes % % Eosinophils % % Basophils % % Neutrophils # (1.3-7.7) k/uL Lymphocytes # (1.0-4.8) k/uL Monocytes # (0-1.0) k/uL Eosinophils # (0-0.7) k/uL Basophils # (0-0.2) k/uL PT 9.7 (9.0-12.0) sec INR 1.0 (<1.2) APTT 18.7 L (22.0-30.0) sec Sodium (137-145) mmol/L Potassium (3.5-5.1) mmol/L Chloride (98-107) mmol/L Carbon Dioxide (22-30) mmol/L Anion Gap mmol/L BUN (7-17) mg/dL Creatinine (0.52-1.04) mg/dL Est GFR (CKD-EPI)AfAm (>60 ml/min/1.73 sqM) Est GFR (CKD-EPI)NonAf (>60 ml/min/1.73 sqM) Glucose (74-99) mg/dL POC Glucose (mg/dL) 67 L 69 L (75-99) mg/dL POC Glu Veterinary Poultry Inspector ID Gabbie, Bartolo [place], Bartolo Calcium (8.4-10.2) mg/dL Total Bilirubin (0.2-1.3) mg/dL AST (14-36) U/L ALT (9-52) U/L Alkaline Phosphatase (38-126) U/L Total Protein (6.3-8.2) g/dL Albumin (3.5-5.0) g/dL Amylase (30-110) U/L Lipase (23-300) U/L Urine Color Urine Appearance (Clear) Urine pH (5.0-8.0) Ur Specific [place] (1.001-1.035) Urine Protein (Negative) Urine Glucose (UA) (Negative) Urine Ketones (Negative) Urine Blood (Negative) Urine Nitrite (Negative) Urine Bilirubin (Negative) Urine Urobilinogen (<2.0) mg/dL Ur Leukocyte Esterase (Negative) 04/21/18 Range/Units 22:18 WBC (3.8-10.6) k/uL RBC (3.80-5.40) m/uL Hgb (11.4-16.0) gm/dL Hct (34.0-46.0) % MCV (80.0-100.0) fL MCH (25.0-35.0) pg MCHC (31.0-37.0) g/dL RDW (11.5-15.5) % Plt Count (150-450) k/uL Neutrophils % % Lymphocytes % % Monocytes % % Eosinophils % % Basophils % % Neutrophils # (1.3-7.7) k/uL Lymphocytes # (1.0-4.8) k/uL Monocytes # (0-1.0) k/uL Eosinophils # (0-0.7) k/uL Basophils # (0-0.2) k/uL PT (9.0-12.0) sec INR (<1.2) APTT (22.0-30.0) sec Sodium (137-145) mmol/L Potassium (3.5-5.1) mmol/L Chloride (98-107) mmol/L Carbon Dioxide (22-30) mmol/L Anion Gap mmol/L BUN (7-17) mg/dL Creatinine (0.52-1.04) mg/dL Est GFR (CKD-EPI)AfAm (>60 ml/min/1.73 sqM) Est GFR (CKD-EPI)NonAf (>60 ml/min/1.73 sqM) Glucose (74-99) mg/dL POC Glucose (mg/dL) 184 H (75-99) mg/dL POC Glu Veterinary Poultry Inspector ID Bartolo Cartwright Calcium (8.4-10.2) mg/dL Total Bilirubin (0.2-1.3) mg/dL AST (14-36) U/L ALT (9-52) U/L Alkaline Phosphatase (38-126) U/L Total Protein (6.3-8.2) g/dL Albumin (3.5-5.0) g/dL Amylase (30-110) U/L Lipase (23-300) U/L Urine Color Urine Appearance (Clear) Urine pH (5.0-8.0) Ur Specific [place] (1.001-1.035) Urine Protein (Negative) Urine Glucose (UA) (Negative) Urine Ketones (Negative) Urine Blood (Negative) Urine Nitrite (Negative) Urine Bilirubin (Negative) Urine Urobilinogen (<2.0) mg/dL Ur Leukocyte Esterase (Negative) 04/21/18 19:28 EKG shows normal sinus rhythm, left ventricular ectopy with repolarization abnormality. Abnormal EKG. Ventricular rate of 97 bpm. FL interval is 126 ms. QRS duration 92 ms. QT QTc is 332/447 ms. (Shaista Hidalgo) - Radiology Data CT is negative for any acute process. (Shaista Hidalgo) Disposition Is patient prescribed a controlled substance at d/c from ED?: No Time of Disposition: 22:39 <Shaista Hidalgo - Last Filed: 04/22/18 04:22> <Yanci Lion - Last Filed: 04/22/18 05:09> Clinical Impression: Right lateral abdominal pain, Nausea & vomiting Disposition: HOME SELF-CARE Condition: Good Additional Instructions: Patient has follow-up with primary care physician. Return to emergency department if any alarming signs or symptoms occur. Prescriptions: Ibuprofen 600 mg PO TID #20 tablet Sucralfate [Carafate] 1 gm PO ACHS #20 tablet Referrals: Lee Severino MD [Primary Care Provider] - 1-2 days
[2018-04-21 19:24] LABS: Basophils % (A) 0 %; Eosinophils # (A) 0.3 k/uL (0-0.7); Eosinophils % (A) 5 %; HCT 34.4 % (34.0-46.0); HGB 11.3 gm/dL (11.4-16.0); Lymphocytes # (A) 2.4 k/uL (1.0-4.8); Lymphocytes % (A) 43 %; MCH 29.2 pg (25.0-35.0); MCHC 32.8 g/dL (31.0-37.0); Monocytes # (A) 0.2 k/uL (0-1.0); Monocytes % (A) 4 %; Neutrophils # (A) 2.5 k/uL (1.3-7.7); Neutrophils % (A) 46 %; Platelet Count 255 k/uL (150-450); RBC 3.86 m/uL (3.80-5.40); RDW 14.3 % (11.5-15.5); WBC 5.5 k/uL (3.8-10.6)
[2018-04-21 19:26] LABS: Appearance,Urine Clear (Clear); Bilirubin,Urine Negative (Negative); Blood,Urine Negative (Negative); Color,Urine Yellow; Glucose,Urine (UA) 4+ (Negative); Ketones,Urine Negative (Negative); Leukocyte Esterase,Urine Negative (Negative); Nitrite,Urine Negative (Negative); Protein,Urine Negative (Negative); Specific Gravity,Urine 1.024 (1.001-1.035); Urobilinogen,Urine <2.0 mg/dL (<2.0)
[2018-04-21 19:39] LABS: ALT 20 U/L (9-52); AST 19 U/L (14-36); Albumin 4.3 g/dL (3.5-5.0); Alkaline Phosphatase 84 U/L (38-126); Amylase 36 U/L (30-110); Anion Gap 11 mmol/L; Blood Urea Nitrogen 18 mg/dL (7-17); Calcium 10.4 mg/dL (8.4-10.2); Carbon Dioxide 21 mmol/L (22-30); Chloride 108 mmol/L (98-107); Glucose 162 mg/dL (74-99); Lipase 36 U/L (23-300); Potassium 4.5 mmol/L (3.5-5.1); Sodium 140 mmol/L (137-145); Total Bilirubin 0.3 mg/dL (0.2-1.3); Total Protein 7.2 g/dL (6.3-8.2)
--- NOTE | 2018-04-21 19:40 | XR ---
EXAMINATION TYPE: XR KUB, 2 views DATE OF EXAM: 04/21/2018 COMPARISON: NONE HISTORY: Abdominal pain, right side TECHNIQUE: 2 upright views FINDINGS: The visualized lung bases and pleural spaces are negative. There is no pneumoperitoneum or pneumatosis. Bowel gas pattern is normal. No acute soft tissue or skeletal findings. IMPRESSION: Negative examination.
[2018-04-21 19:59] LABS: Prothrombin Time 9.7 sec (9.0-12.0)
[2018-04-21 20:07] LABS: Partial Thromboplastin Time 18.7 sec (22.0-30.0)
[2018-04-21 21:37] LABS: Glucose,Whole Blood 67 mg/dL (75-99)
[2018-04-21 21:55] LABS: Glucose,Whole Blood 69 mg/dL (75-99)
[2018-04-21] MEDS ORDERED: DEXTROSE 50%-WATER 50 ML SYRINGE IVP STA (21:58)
--- NOTE | 2018-04-21 22:03 | CT ---
EXAMINATION TYPE: CT abdomen pelvis w con DATE OF EXAM: 04/21/2018 COMPARISON: 01/07/2017 HISTORY: right sided abdominal pain, nausea, vomiting CT DLP: 705.7 mGycm Automated exposure control for dose reduction was used. TECHNIQUE: Helical acquisition of images was performed from the lung bases through the pelvis. CONTRAST: Performed without Oral Contrast and with IV Contrast, patient injected with 100 mL of Isovue 300. FINDINGS: VISUALIZED LOWER CHEST: (1) A 12 mm left lower lobe pulmonary calcification is noted, consistent with granuloma; this is unchanged from the prior study. (2) Small endocardial calcification noted at the left ventricular apex consistent with remote apical myocardial infarction. Mild cardiomegaly and barbara nary calcifications redemonstrated. LIVER/GB: There is a branching that workup of intrahepatic gas, similar to the prior study and presum ably representing biliary air, but clinical confirmation requested. PANCREAS: No significant abnormality is seen. SPLEEN: No significant abnormality is seen. ADRENALS: No significant abnormality is seen. KIDNEYS: No acute findings. Atrophic left kidney redemonstrated, with staghorn upper pole calcificati on stable in appearance. PERITONEAL CAVITY: No pneumoperitoneum or fluid. ABDOMINAL ADENOPATHY: None visualized REPRODUCTIVE ORGANS: No significant abnormality is seen URINARY BLADDER: No significant abnormality is seen. PELVIC ADENOPATHY: None visualized. OSSEOUS STRUCTURES: No significant abnormality is seen. BOWEL: No significant abnormality is seen. VASCULATURE: No acute findings. IMPRESSION: NO DEFINITE ACUTE PROCESS, ABOVE.
[2018-04-21 22:29] LABS: Glucose,Whole Blood 184 mg/dL (75-99)
[2018-04-21 22:53] VITALS: BP 112/72; PULSE 81; RESP 17; TEMP 97.2
== END 2018-04-21 22:53 | disposition home or self-care (01) ==
LOC: EC 17:56
DX: R10.11 Right upper quadrant pain (principal); R11.2 Nausea with vomiting, unspecified; R19.7 Diarrhea, unspecified; R07.81 Pleurodynia; I25.10 Atherosclerotic heart disease of native coronary artery without angina pectoris; J44.9 Chronic obstructive pulmonary disease, unspecified; E11.40 Type 2 diabetes mellitus with diabetic neuropathy, unspecified; K21.9 Gastro-esophageal reflux disease without esophagitis; E78.5 Hyperlipidemia, unspecified; I10 Essential (primary) hypertension; I25.2 Old myocardial infarction; M06.9 Rheumatoid arthritis, unspecified; G47.30 Sleep apnea, unspecified; Z99.89 Dependence on other enabling machines and devices; F32.9 Major depressive disorder, single episode, unspecified; F41.9 Anxiety disorder, unspecified; E03.9 Hypothyroidism, unspecified; G25.81 Restless legs syndrome; Z85.528 Personal history of other malignant neoplasm of kidney; Z86.718 Personal history of other venous thrombosis and embolism; Z86.73 Personal history of transient ischemic attack (TIA), and cerebral infarction without residual deficits; Z86.14 Personal history of Methicillin resistant Staphylococcus aureus infection; Z87.891 Personal history of nicotine dependence; Z79.4 Long term (current) use of insulin; Z79.51 Long term (current) use of inhaled steroids; Z79.82 Long term (current) use of aspirin; Z79.899 Other long term (current) drug therapy; Z88.2 Allergy status to sulfonamides; Z88.5 Allergy status to narcotic agent; Z91.030 Bee allergy status; Z91.040 Latex allergy status; Z91.048 Other nonmedicinal substance allergy status; Z88.8 Allergy status to other drugs, medicaments and biological substances; Z95.818 Presence of other cardiac implants and grafts; Z90.49 Acquired absence of other specified parts of digestive tract
CPT/HCPCS: 36415; 93005; 80053; 82150; 83690; 85025; 85610; 85730; 81003; 74018; 74177; 99285; 96374; 96375 ×4; 96361 ×3; J2405; J1885; J1170; C9113; Q9967

== ENCOUNTER 2019-03-29 13:37 | Emergency (ER) | payer OTHER ==
[2019-03-29 13:53] VITALS: RESP 16; TEMP 97.9
[2019-03-29] MEDS ORDERED: SODIUM CHLORIDE 0.9% 1,000 ML IV ONE (14:06)
[2019-03-29] MEDS ORDERED: SODIUM CHLORIDE 0.9% 1,000 ML IV SCH (14:15)
--- NOTE | 2019-03-29 14:23 | ED ---
Nausea/Vomiting/Diarrhea HPI - General Chief complaint: Nausea/Vomiting/Diarrhea Stated complaint: Nausea, Diarrhea, Headache Time Seen by Provider: 03/29/19 14:04 Source: patient Mode of arrival: ambulatory Limitations: no limitations - History of Present Illness Initial comments: 59-year-old female with history of DM, HTN, CVA, CAD with stent, appendectomy, previous bowel obstruction with resection, hernia repair presenting for multiple complaints-wiht main complaints of nausea, vomiting, diarrhea x 4 days. Patient states that she has had diarrhea since of last week approximately 4 days ago. Patient states she has been taking Imodium however she continues to have large amounts of brown diarrhea. Patient denies any melanotic stools or hematochezia. Patient states she has also had vomiting and since she's been vomiting she has had a chest pressure, she states there is an occasional sharp pain, but nothing consistent. Denies current on history taking/exam. Patient denies radiation of the pain, or pattern with exertion.Patient denies leg swelling, SOB. Patient states that she was more concerned about the nausea, vomiting and lower abdominal pain. Mostly left to middle of the lower abdomen, its crampy in nature without radiation, increases with bouts of diarrhea. No specific alleviating factors. Patient states she has recorded a fever at home the the past two days that went away today. Patient denies hematemesis, back pain. Patient does admit to occasional headache but states this is very consistent with her chronic migraines. She denies any sudden onset headache best the worst headache of her life, neck stiffness, photophobia, speech changes, weakness or sensation deficits of the UE or LE. Patient states she was not really concerned of the headache. - Related Data Home Medications Medication Instructions Recorded Confirmed Aspirin [Adult Low Dose Aspirin EC] 81 mg PO DAILY 09/04/16 03/29/19 Venlafaxine HCl [Venlafaxine HCl 225 mg PO QAM 10/21/16 03/29/19 ER] Cariprazine HCl [Vraylar] 1.5 mg PO DAILY 05/05/17 03/29/19 Meclizine [Antivert] 12.5 - 25 mg PO TID PRN 07/31/17 03/29/19 Lisinopril [Zestril] 10 mg PO HS 03/18/18 03/29/19 Pantoprazole Sodium [Protonix] 40 mg PO HS 03/18/18 03/29/19 Atorvastatin [Lipitor] 40 mg PO HS 04/21/18 03/29/19 Hydrocodone/Acetaminophen [[place] 1 - 2 tab PO Q6HR PRN 04/21/18 03/29/19 5-325] Albuterol Sulfate [Proair Hfa] 1 - 2 puff INHALATION RT-Q6H PRN 03/29/19 03/29/19 Cyclobenzaprine [Flexeril] 5 mg PO BID 03/29/19 03/29/19 Gabapentin [Neurontin] 100 mg PO BID 03/29/19 03/29/19 Glucagon Emergency Kit 1 mg IM ONCE PRN 03/29/19 03/29/19 Insulin Lispro [Admelog] See Protocol SQ CONTINUOUS 03/29/19 03/29/19 Levothyroxine Sodium [Synthroid] 175 mcg PO [id number] 03/29/19 03/29/19 Levothyroxine Sodium [Synthroid] 262.5 mcg PO KUNZ 03/29/19 03/29/19 Loratadine [Claritin] 10 mg PO DAILY 03/29/19 03/29/19 Metoprolol Tartrate [Lopressor] 25 mg PO DAILY 03/29/19 03/29/19 Ranitidine HCl [Zantac] 150 mg PO DAILY 03/29/19 03/29/19 Allergies Allergy/AdvReac Type Severity Reaction Status Date / Time grass pollen Allergy Unknown Verified 03/29/19 15:14 latex Allergy Rash/Hives Verified 03/29/19 15:14 Sulfa (Sulfonamide Allergy Rash/Hives/ Verified 03/29/19 15:14 Antibiotics) Swelling venom-honey bee Allergy Anaphylaxis Verified 03/29/19 15:14 morphine AdvReac Decreased Verified 03/29/19 15:14 Blood Pressure prochlorperazine edisylate AdvReac Vomiting Verified 03/29/19 15:14 [From Compazine] Review of Systems ROS Statement: Those systems with pertinent positive or pertinent negative responses have been documented in the HPI. ROS Other: All systems not noted in ROS Statement are negative. Past Medical History Past Medical History: Coronary Artery Disease (CAD), Cancer, COPD, CVA/TIA, Diabetes Mellitus, Deep Vein Thrombosis (DVT), Eye Disorder, GERD/Reflux, Hyperlipidemia, Hypertension, Myocardial Infarction (OR), Renal Disease, Rheumatoid Arthritis (RA), Sleep Apnea/CPAP/BIPAP, Syncope, Thyroid Disorder Additional Past Medical History / Comment(s): 09/16/16 with SBO with surgery/possible septic emboli with cavitary lesions bilateral lungs. Hx: left renal cell carcinoma with partial nephrectomy 7 yrs ago, CVA 4, last 1 month ago, no residual effects, DVT left leg 7-8 yrs ago, hypothyroidism, chronic back pain, hx UTI with sepsis secondary to ESBL producing E. coli Nov2015 requiring PICC line insertion for IV antibiotics, restless leg syndrome, peripheral neropathy. Hx bilateral glaucoma, hx syncope r/t low blood sugars. No CPAP use. Last Myocardial Infarction Date:: 2012 History of Any Multi-Drug Resistant Organisms: ESBL, MRSA, VRE Date of last positivie culture/infection: 05/07/16 ESBL, 05/15/16 VRE, MRSA 09/2017 - upper lip MDRO Source:: URINE E.COLI, EC GALLINARUM Past Surgical History: Appendectomy, Bowel Resection, Section, Heart Catheterization, Hernia Repair Additional Past Surgical History / Comment(s): 09/30 exploratory laparotomy, lysis of adhesions bowel resection d/t obstruction. Hx: repair incarcerated incisional hernia with abdominal washout, thyroidectomy(non functioning), heart cath 06/28 - 100% occluded, unable to stent, partial nephrectomy for left kidney renal cell carcinoma, PICC line insertion (since removed), colonoscopy, bilateral cataract removal with lens implants, 2 Sections. Past Anesthesia/Blood Transfusion Reactions: No Reported Reaction Past Psychological History: Anxiety, Depression Smoking Status: Former smoker Past Alcohol Use History: None Reported Past Drug Use History: Cocaine, Marijuana - Past Family History Sister(s) Family Medical History: Cancer, Sleep Apnea/CPAP/BIPAP Additional Family Medical History / Comment(s): Patient has one sister that from liver cancer, borderline DM, PAD, hep. c. Brother(s) Family Medical History: Cancer, Coronary Artery Disease (CAD), Deep Vein Thrombosis (DVT), Hyperlipidemia Additional Family Medical History / Comment(s): Patient has 1 brother with past ETOH, past drug abuse, DVT's. She has a second brother that has from throat cancer. Daughter(s) Family Medical History: Diabetes Mellitus, Myocardial Infarction (OR) Additional Family Medical History / Comment(s): Daughter at 23 yrs old from massive OR. Father Family Medical History: Myocardial Infarction (OR) Additional Family Medical History / Comment(s): from mi at age 44 Mother Family Medical History: Cancer Additional Family Medical History / Comment(s): maeve breasts removed d/t cancer, hysterectomy d/t cancer. Mother from metastatic breast cancer. General Exam - General Exam Comments Initial Comments: General: The patient is awake and alert, in no distress, and does not appear acutely ill. Eye: +3 mm pupils are equal, round and reactive to light, extra-ocular move ments are intact. No nystagmus. There is normal conjunctiva bilaterally. No signs of icterus. Ears, nose, mouth and throat: There are moist mucous membranes and no oral lesions. Neck: The neck is supple, there is no tenderness or JVD. Cardiovascular: There is a regular rate and rhythm. No murmur, rub or gallop is appreciated. Negative Stoddard sign. No diaphoresis. Respiratory: Lungs are clear to auscultation, respirations are non-labored, breath sounds are equal. No wheezes, stridor, rales, or rhonchi. Gastrointestinal: Soft, non-distended, abdomen tender to palpation of the left lower quadrant and mid lower just inferior to the umbilicus, the abdomen without masses or organomegaly noted-no noted hernias. There is no rebound or guarding present. No CVA tenderness. Bowel sounds are unremarkable. Musculoskeletal: Normal ROM, no tenderness. Strength 5/5. Sensation intact. Radial pulses equal bilaterally 2+. Neurological: A&O x 3. CN II-XII intact, There are no obvious motor or sensory deficits. Coordination appears grossly intact. Speech is normal. Skin: Skin is warm and dry and no rashes or lesions are noted. Psychiatric: Cooperative, appropriate mood & affect, normal judgment. Limitations: no limitations Course Vital Signs 03/29/19 03/29/19 13:50 17:06 Temperature 97.9 F 97.9 F Pulse Rate 90 78 Respiratory 16 16 Rate Blood Pressure 137/88 151/76 O2 Sat by Pulse 100 99 Oximetry Medical Decision Making - Medical Decision Making Well-appearing 59-year-old female presenting for nausea vomiting diarrhea x 4 days. Patient's laboratory studies unremarkable. Patient states that she has had chest pain within the last 4 days none current. Troponin negative. EKG compared to previous no acute findings EKG reviewed/interpreted by my attending provider. Patient has no leukocytosis. Stool sample was platelike no chris diarrhea. CT negative for acute process. Clearly in her seen on previous studies. Patient denies any current chest pain appears well. At this time do feel patient is stable for discharge with outpatient primary care follow-up and follow-up with her flap presser. Case discussed in detail with attending provider who recommended discharge. Patient discharged appearing well. agreeable with discharge and return parameters. - Lab Data Result diagrams: 03/29/19 14:17 03/29/19 14:17 Lab Results 03/29/19 03/29/19 03/29/19 Range/Units 14:17 14:17 14:17 WBC 4.6 (3.8-10.6) k/uL RBC 3.93 (3.80-5.40) m/uL Hgb 11.4 (11.4-16.0) gm/dL Hct 34.7 (34.0-46.0) % MCV 88.1 (80.0-100.0) fL MCH 28.9 (25.0-35.0) pg MCHC 32.8 (31.0-37.0) g/dL RDW 14.7 (11.5-15.5) % Plt Count 235 (150-450) k/uL Neutrophils % 55 % Lymphocytes % 36 % Monocytes % 4 % Eosinophils % 2 % Basophils % 0 % Neutrophils # 2.6 (1.3-7.7) k/uL Lymphocytes # 1.7 (1.0-4.8) k/uL Monocytes # 0.2 (0-1.0) k/uL Eosinophils # 0.1 (0-0.7) k/uL Basophils # 0.0 (0-0.2) k/uL Sodium 142 (137-145) mmol/L Potassium 4.3 (3.5-5.1) mmol/L Chloride 114 H (98-107) mmol/L Carbon Dioxide 21 L (22-30) mmol/L Anion Gap 7 mmol/L BUN 21 H (7-17) mg/dL Creatinine 1.07 H (0.52-1.04) mg/dL Est GFR (CKD-EPI)AfAm 66 (>60 ml/min/1.73 sqM) Est GFR (CKD-EPI)NonAf 57 (>60 ml/min/1.73 sqM) Glucose 138 H (74-99) mg/dL Plasma Lactic Acid Ab 0.6 L (0.7-2.0) mmol/L Calcium 8.8 (8.4-10.2) mg/dL Total Bilirubin 0.1 L (0.2-1.3) mg/dL AST 22 (14-36) U/L ALT 19 (9-52) U/L Alkaline Phosphatase 119 (38-126) U/L Troponin I (0.000-0.034) ng/mL Total Protein 6.4 (6.3-8.2) g/dL Albumin 3.7 (3.5-5.0) g/dL Lipase 29 (23-300) U/L Urine Color Urine Appearance (Clear) Urine pH (5.0-8.0) Ur Specific [place] (1.001-1.035) Urine Protein (Negative) Urine Glucose (UA) (Negative) Urine Ketones (Negative) Urine Blood (Negative) Urine Nitrite (Negative) Urine Bilirubin (Negative) Urine Urobilinogen (<2.0) mg/dL Ur Leukocyte Esterase (Negative) Urine RBC (0-5) /hpf Urine WBC (0-5) /hpf Ur Squamous Epith Cells (0-4) /hpf Urine Bacteria (None) /hpf Hyaline Casts (0-2) /lpf Urine Mucus (None) /hpf 03/29/19 03/29/19 Range/Units 14:17 14:17 WBC (3.8-10.6) k/uL RBC (3.80-5.40) m/uL Hgb (11.4-16.0) gm/dL Hct (34.0-46.0) % MCV (80.0-100.0) fL MCH (25.0-35.0) pg MCHC (31.0-37.0) g/dL RDW (11.5-15.5) % Plt Count (150-450) k/uL Neutrophils % % Lymphocytes % % Monocytes % % Eosinophils % % Basophils % % Neutrophils # (1.3-7.7) k/uL Lymphocytes # (1.0-4.8) k/uL Monocytes # (0-1.0) k/uL Eosinophils # (0-0.7) k/uL Basophils # (0-0.2) k/uL Sodium (137-145) mmol/L Potassium (3.5-5.1) mmol/L Chloride (98-107) mmol/L Carbon Dioxide (22-30) mmol/L Anion Gap mmol/L BUN (7-17) mg/dL Creatinine (0.52-1.04) mg/dL Est GFR (CKD-EPI)AfAm (>60 ml/min/1.73 sqM) Est GFR (CKD-EPI)NonAf (>60 ml/min/1.73 sqM) Glucose (74-99) mg/dL Plasma Lactic Acid Ab (0.7-2.0) mmol/L Calcium (8.4-10.2) mg/dL Total Bilirubin (0.2-1.3) mg/dL AST (14-36) U/L ALT (9-52) U/L Alkaline Phosphatase (38-126) U/L Troponin I <0.012 (0.000-0.034) ng/mL Total Protein (6.3-8.2) g/dL Albumin (3.5-5.0) g/dL Lipase (23-300) U/L Urine Color Yellow Urine Appearance Clear (Clear) Urine pH 5.5 (5.0-8.0) Ur Specific [place] 1.027 (1.001-1.035) Urine Protein Trace H (Negative) Urine Glucose (UA) Negative (Negative) Urine Ketones Negative (Negative) Urine Blood Negative (Negative) Urine Nitrite Negative (Negative) Urine Bilirubin Negative (Negative) Urine Urobilinogen <2.0 (<2.0) mg/dL Ur Leukocyte Esterase Small H (Negative) Urine RBC 1 (0-5) /hpf Urine WBC 19 H (0-5) /hpf Ur Squamous Epith Cells 3 (0-4) /hpf Urine Bacteria Rare H (None) /hpf Hyaline Casts 5 H (0-2) /lpf Urine Mucus Rare H (None) /hpf - EKG Data EKG Comments: Ventricular rate 80 bpm, AR interval 138 ms, QRS duration 86 ms, QT/QTC 374/431 ms. Normal sinus T-wave abnormality appreciated on previous EKG no change. No ST elevation or depression. EKG percent interpreted reviewed by my attending provider Disposition Clinical Impression: Diarrhea, Vomiting, Lower abdominal pain, UTI (urinary tract infection), Chest pain Disposition: HOME SELF-CARE Condition: Good Instructions (If sedation given, give patient instructions): Acute Nausea and Vomiting (ED), Acute Diarrhea (ED) Additional Instructions: Please use medication as discussed. Please follow-up with family doctor in the next 2 days, please make an appointment with your flap presser. Please return to emergency room if the symptoms increase or worsen or for any other concerns, return of chest pressure/pain. Is patient prescribed a controlled substance at d/c from ED?: No Referrals: Lee Severino MD [Primary Care Provider] - 1-2 days Time of Disposition: 17:00
[2019-03-29 14:35] LABS: Basophils % (A) 0 %; Eosinophils # (A) 0.1 k/uL (0-0.7); Eosinophils % (A) 2 %; HCT 34.7 % (34.0-46.0); HGB 11.4 gm/dL (11.4-16.0); Lymphocytes # (A) 1.7 k/uL (1.0-4.8); Lymphocytes % (A) 36 %; MCH 28.9 pg (25.0-35.0); MCHC 32.8 g/dL (31.0-37.0); MCV 88.1 fL (80.0-100.0); Mean Platelet Volume 6.2; Monocytes # (A) 0.2 k/uL (0-1.0); Monocytes % (A) 4 %; Neutrophils # (A) 2.6 k/uL (1.3-7.7); Neutrophils % (A) 55 %; Platelet Count 235 k/uL (150-450); RBC 3.93 m/uL (3.80-5.40); RDW 14.7 % (11.5-15.5); WBC 4.6 k/uL (3.8-10.6)
[2019-03-29 14:38] LABS: Albumin 3.7 g/dL (3.5-5.0); Calcium 8.8 mg/dL (8.4-10.2); Potassium 4.3 mmol/L (3.5-5.1); Total Bilirubin 0.1 mg/dL (0.2-1.3); Total Protein 6.4 g/dL (6.3-8.2)
[2019-03-29 15:01] LABS: Appearance,Urine Clear (Clear); Bacteria,Urine Rare /hpf; Bilirubin,Urine Negative (Negative); Blood,Urine Negative (Negative); Color,Urine Yellow; Glucose,Urine (UA) Negative (Negative); Hyaline Casts,Urine 5 /lpf (0-2); Ketones,Urine Negative (Negative); Leukocyte Esterase,Urine Small (Negative); Mucus,Urine Rare /hpf; Nitrite,Urine Negative (Negative); PH, Urine 5.5 (5.0-8.0); Protein,Urine Trace (Negative); RBC,Urine 1 /hpf (0-5); Specific Gravity,Urine 1.027 (1.001-1.035); Squamous Epithelial Cell,Urine 3 /hpf (0-4); Urobilinogen,Urine <2.0 mg/dL (<2.0); WBC,Urine 19 /hpf (0-5)
--- NOTE | 2019-03-29 15:08 | XR ---
EXAMINATION TYPE: XR chest 2V DATE OF EXAM: 03/29/2019 COMPARISON: NONE HISTORY: Chest pain and pressure. History of COPD. Nausea and vomiting as well as diarrhea for 4 days TECHNIQUE: Frontal and lateral views of the chest are obtained. FINDINGS: There is no focal air space opacity, pleural effusion, or pneumothorax seen. Minimal plate like subsegmental atelectasis in the left. Nodular left basilar opacity is similar to 2018 and may re present an overlying nipple shadow. The cardiac silhouette size is upper limits of normal. The osse ous structures are intact. Mild multilevel degenerative changes of the spine. IMPRESSION: 1. Minimal left basilar subsegmental atelectasis otherwise no acute cardiopulmonary process. 2. Nodular density overlying the left lower lung is unchanged from 2018 and could represent a nipple shadow. Nonemergent follow-up x-ray with nipple markers could be performed or CT thorax.
--- NOTE | 2019-03-29 15:56 | CT ---
EXAMINATION TYPE: CT abdomen pelvis w con DATE OF EXAM: 03/29/2019 COMPARISON: 04/21/2018 INDICATION: Left lower quadrant abdominal pain history of adhesions DLP: 940.6 mGycm, Automated exposure control for dose reduction was used. CONTRAST: 100 mL of Isovue 300. Study performed without Oral Contrast TECHNIQUE: Axial images were obtained from above the diaphragm to the pubic rami in the axial plane a t 5 mm thick sections. Reconstructed images are reviewed on the computer in the coronal plane. FINDINGS: Limited CT sections are obtained the lung bases. A 1.0 cm calcification in the posterior lateral lef t lung base.. CT ABDOMEN: Liver: Biliary air is present. Spleen: Normal Pancreas: Normal Adrenal glands: The adrenal glands are normal. Gallbladder: There is air within the gallbladder. Kidneys: No masses are evident. No hydronephrosis is present. No cysts are present. Delayed images were obtained through the kidneys, which remain unremarkable. Left kidney is small compared to the r ight. There is a calcification in the superior pole left kidney measuring 0.6 cm. Aorta: Vascular calcification is within the aorta. Inferior vena cava: Normal. CT PELVIS: Loops of bowel within the abdomen and pelvis are normal. There are loops of bowel which are incom pletely distended or lack oral contrast limiting their evaluation. Appendix: Normal as visualized. Urinary bladder: Normal as visualized. Genitourinary structures: Uterus and ovaries are not identified. Osseous structures: No suspicious lytic or sclerotic lesions. Spondylolysis of L5 is present. IMPRESSIONS: 1. Biliary air. 2. No significant interval change.
[2019-03-29 17:07] VITALS: BP 151/76; PULSE 78
== END 2019-03-29 17:05 | disposition home or self-care (01) ==
LOC: EC 13:37
DX: N39.0 Urinary tract infection, site not specified (principal); R07.9 Chest pain, unspecified; R19.7 Diarrhea, unspecified; I25.10 Atherosclerotic heart disease of native coronary artery without angina pectoris; E11.9 Type 2 diabetes mellitus without complications; K21.9 Gastro-esophageal reflux disease without esophagitis; I10 Essential (primary) hypertension; E78.5 Hyperlipidemia, unspecified; I25.2 Old myocardial infarction; G47.30 Sleep apnea, unspecified; E03.9 Hypothyroidism, unspecified; J44.9 Chronic obstructive pulmonary disease, unspecified; Z79.82 Long term (current) use of aspirin; Z79.4 Long term (current) use of insulin; Z79.890 Hormone replacement therapy; Z79.899 Other long term (current) drug therapy; Z91.018 Allergy to other foods; Z91.040 Latex allergy status; Z88.2 Allergy status to sulfonamides; Z91.030 Bee allergy status; Z88.5 Allergy status to narcotic agent; Z88.8 Allergy status to other drugs, medicaments and biological substances; Z87.891 Personal history of nicotine dependence; Z85.528 Personal history of other malignant neoplasm of kidney; Z86.73 Personal history of transient ischemic attack (TIA), and cerebral infarction without residual deficits; Z90.5 Acquired absence of kidney; Z86.718 Personal history of other venous thrombosis and embolism; Z95.5 Presence of coronary angioplasty implant and graft
CPT/HCPCS: 36415; 93005; 80053; 83605; 83690; 84484; 85025; 81001; 71046; 74177; 99284; 96365; 96361 ×2; J0696; Q9967

== ENCOUNTER 2019-05-05 13:56 | Emergency (ER) | payer OTHER ==
--- NOTE | 2019-05-05 14:28 | ED ---
General Adult HPI - General Chief complaint: Shortness of Breath Stated complaint: Sob Time Seen by Provider: 05/05/19 14:12 Source: patient Mode of arrival: ambulatory Limitations: no limitations - History of Present Illness Initial comments: Dictation was produced using [employer] dictation software. please excuse any grammatical, word or spelling errors. Chief Complaint: 59-year-old female past medical history coronary artery disease, COPD, CVA, DVT presents with chest pain and left lower extremity pain. History of Present Illness: She is 59-year-old female she woke up this morning with sharp left-sided chest pain and rates it the back. Patient states that she also has pain in the left lower extremity and calf area. Patient has a past medical history of DVT. Patient's physician and feeling sick with runny nose. Denies any overt sick contacts. She is a poor historian. Patient denies any associated diaphoresis. This pain is sharp. It's worse with deep inspiration radiates to the left back. Patient has been coughing. Cough is nonproductive of sputum. The ROS documented in this emergency department record has been reviewed and confirmed by me. Those systems with pertinent positive or negative responses have been documented in the HPI. All other systems are other negative and/or noncontributory. PHYSICAL EXAM: General Impression: Alert and oriented x3, not in acute distress HEENT: Normocephalic atraumatic, extra-ocular movements intact, pupils equal and reactive to light bilaterally, mucous membranes moist. Cardiovascular: Heart regular rate and rhythm, S1&S2 audible, no murmurs, rubs or gallops Chest: Lungs clear to auscultation bilaterally, no rhonchi, no wheeze, no rales Abdomen: Bowel sounds present, abdomen soft, non-tender, non-distended, no organomegaly Musculoskeletal: Pulses present and equal in all extremities, no peripheral edema Motor: no focal deficits noted Neurological: CN II-XII grossly intact, no focal motor or sensory deficits noted Skin: Intact with no visualized rashes Psych: Normal affect and mood ED course: 59 y old female presents with atypical chest pain. He also has complaints of left lower extremity pain. Chart review shows that patient's history of DVT. Upon arrival are within acceptable limits. Medications were reviewed. Patient is not on any anticoagulation medications. Abdomen evaluation obtained. No leukocytosis. Hemoglobin stable. Coag panel unremarkable. D-dimer is 1.21. Metabolic panel shows findings within acceptable limits. She is glucose 299. Negative cardiac enzymes. Brain natruretic peptide 500. Urinalysis x-rays not acute. Given elevated d-dimer CT injured the chest was ordered along with venous Doppler ultrasound of the bilateral lower extremities. Venous Doppler of the lower extreme she shows chronic right lower extremity DVT that was present and stable since [address] angioma is negative for pulmonary emboli. No other acute findings seen on CT of the chest. Patient reports still feeling short of breath however she is well-appearing. She is not tachypneic or showing any signs of respi ratory distress. no Clinical suspicion for congestive heart failure or pulmonary emboli. Patient is ambulatory at baseline. Patient is understandable and agreeable to disposition. She is told to follow-up with primary care physician for outpatient management of dyspnea. EKG interpretation: Ventricular rate 93, normal sinus rhythm, AL interval 134, care is 80, QTc 460. No AL prolongation, no QTC prolongation, no ST or T-wave changes noted. EKG compared to 03/29/2019 showing no changes. Overall, this EKG is unremarkable - Related Data Home Medications Medication Instructions Recorded Confirmed Aspirin [Adult Low Dose Aspirin EC] 81 mg PO DAILY 09/04/16 03/29/19 Venlafaxine HCl [Venlafaxine HCl 225 mg PO QAM 10/21/16 03/29/19 ER] Cariprazine HCl [Vraylar] 1.5 mg PO DAILY 05/05/17 03/29/19 Meclizine [Antivert] 12.5 - 25 mg PO TID PRN 07/31/17 03/29/19 Lisinopril [Zestril] 10 mg PO HS 03/18/18 03/29/19 Pantoprazole Sodium [Protonix] 40 mg PO HS 03/18/18 03/29/19 Atorvastatin [Lipitor] 40 mg PO HS 04/21/18 03/29/19 Hydrocodone/Acetaminophen [Loraine 1 - 2 tab PO Q6HR PRN 04/21/18 03/29/19 5-325] Albuterol Sulfate [Proair Hfa] 1 - 2 puff INHALATION RT-Q6H PRN 03/29/19 03/29/19 Cyclobenzaprine [Flexeril] 5 mg PO BID 03/29/19 03/29/19 Gabapentin [Neurontin] 100 mg PO BID 03/29/19 03/29/19 Glucagon Emergency Kit 1 mg IM ONCE PRN 03/29/19 03/29/19 Insulin Lispro [Admelog] See Protocol SQ CONTINUOUS 03/29/19 03/29/19 Levothyroxine Sodium [Synthroid] 175 mcg PO [id number] 03/29/19 03/29/19 Levothyroxine Sodium [Synthroid] 262.5 mcg PO KUNZ 03/29/19 03/29/19 Loratadine [Claritin] 10 mg PO DAILY 03/29/19 03/29/19 Metoprolol Tartrate [Lopressor] 25 mg PO DAILY 03/29/19 03/29/19 Ranitidine HCl [Zantac] 150 mg PO DAILY 03/29/19 03/29/19 Allergies Allergy/AdvReac Type Severity Reaction Status Date / Time grass pollen Allergy Unknown Verified 05/05/19 14:00 latex Allergy Rash/Hives Verified 05/05/19 14:00 Sulfa (Sulfonamide Allergy Rash/Hives/ Verified 05/05/19 14:00 Antibiotics) Swelling venom-honey bee Allergy Anaphylaxis Verified 05/05/19 14:00 morphine AdvReac Decreased Verified 05/05/19 14:00 Blood Pressure prochlorperazine edisylate AdvReac Vomiting Verified 05/05/19 14:00 [From Compazine] Review of Systems ROS Statement: Those systems with pertinent positive or pertinent negative responses have been documented in the HPI. ROS Other: All systems not noted in ROS Statement are negative. Past Medical History Past Medical History: Coronary Artery Disease (CAD), Cancer, COPD, CVA/TIA, Diabetes Mellitus, Deep Vein Thrombosis (DVT), Eye Disorder, GERD/Reflux, Hyperlipidemia, Hypertension, Myocardial Infarction ([place]), Renal Disease, Rheumatoid Arthritis (RA), Sleep Apnea/CPAP/BIPAP, Syncope, Thyroid Disorder Additional Past Medical History / Comment(s): 09/16/16 with SBO with surgery/possible septic emboli with cavitary lesions bilateral lungs. Hx: left renal cell carcinoma with partial nephrectomy 7 yrs ago, CVA 4, last 1 month ago, no residual effects, DVT left leg 7-8 yrs ago, hypothyroidism, chronic back pain, hx UTI with sepsis secondary to ESBL producing E. coli Nov2015 requiring PICC line insertion for IV antibiotics, restless leg syndrome, peripheral neropathy. Hx bilateral glaucoma, hx syncope r/t low blood sugars. No CPAP use. Last Myocardial Infarction Date:: 2012 History of Any Multi-Drug Resistant Organisms: ESBL, MRSA, VRE Date of last positivie culture/infection: 05/07/16 ESBL, 05/15/16 VRE, MRSA 09/2017 - upper lip MDRO Source:: URINE E.COLI, EC GALLINARUM Past Surgical History: Appendectomy, Bowel Resection, Section, Heart Catheterization, Hernia Repair Additional Past Surgical History / Comment(s): 09/30 exploratory laparotomy, lysis of adhesions bowel resection d/t obstruction. Hx: repair incarcerated incisional hernia with abdominal washout, thyroidectomy(non functioning), heart cath 06/28 - 100% occluded, unable to stent, partial nephrectomy for left kidney renal cell carcinoma, PICC line insertion (since removed), colonoscopy, bilateral cataract removal with lens implants, 2 Sections. Past Anesthesia/Blood Transfusion Reactions: No Reported Reaction Past Psychological History: Anxiety, Depression Smoking Status: Former smoker Past Alcohol Use History: None Reported Past Drug Use History: Cocaine, Marijuana - Past Family History Sister(s) Family Medical History: Cancer, Sleep Apnea/CPAP/BIPAP Additional Family Medical History / Comment(s): Patient has one sister that from liver cancer, borderline DM, PAD, hep. c. Brother(s) Family Medical History: Cancer, Coronary Artery Disease (CAD), Deep Vein Thro mbosis (DVT), Hyperlipidemia Additional Family Medical History / Comment(s): Patient has 1 brother with past ETOH, past drug abuse, DVT's. She has a second brother that has from throat cancer. Daughter(s) Family Medical History: Diabetes Mellitus, Myocardial Infarction ([place]) Additional Family Medical History / Comment(s): Daughter at 23 yrs old from massive [place]. Father Family Medical History: Myocardial Infarction ([place]) Additional Family Medical History / Comment(s): from [place] at age 44 Mother Family Medical History: Cancer Additional Family Medical History / Comment(s): maeve breasts removed d/t cancer, hysterectomy d/t cancer. Mother from metastatic breast cancer. General Exam Limitations: no limitations Course Vital Signs 05/05/19 05/05/19 14:00 15:28 Temperature 98.0 F Pulse Rate 99 96 Respiratory 20 18 Rate Blood Pressure 128/80 131/85 O2 Sat by Pulse 98 97 Oximetry Medical Decision Making - Lab Data Result diagrams: 05/05/19 15:02 05/05/19 15:02 Lab Results 05/05/19 05/05/19 05/05/19 Range/Units 15:02 15:02 15:02 WBC 5.1 (3.8-10.6) k/uL RBC 3.71 L (3.80-5.40) m/uL Hgb 11.2 L (11.4-16.0) gm/dL Hct 33.7 L (34.0-46.0) % MCV 90.8 (80.0-100.0) fL MCH 30.2 (25.0-35.0) pg MCHC 33.2 (31.0-37.0) g/dL RDW 14.7 (11.5-15.5) % Plt Count 238 (150-450) k/uL Neutrophils % 55 % Lymphocytes % 35 % Monocytes % 4 % Eosinophils % 4 % Basophils % 0 % Neutrophils # 2.8 (1.3-7.7) k/uL Lymphocytes # 1.8 (1.0-4.8) k/uL Monocytes # 0.2 (0-1.0) k/uL Eosinophils # 0.2 (0-0.7) k/uL Basophils # 0.0 (0-0.2) k/uL PT 9.5 (9.0-12.0) sec INR 0.9 (<1.2) APTT 23.5 (22.0-30.0) sec D-Dimer 1.21 H (<0.60) mg/L FEU Sodium 142 (137-145) mmol/L Potassium 4.4 (3.5-5.1) mmol/L Chloride 112 H (98-107) mmol/L Carbon Dioxide 21 L (22-30) mmol/L Anion Gap 9 mmol/L BUN 20 H (7-17) mg/dL Creatinine 1.07 H (0.52-1.04) mg/dL Est GFR (CKD-EPI)AfAm 66 (>60 ml/min/1.73 sqM) Est GFR (CKD-EPI)NonAf 57 (>60 ml/min/1.73 sqM) Glucose 299 H (74-99) mg/dL Calcium 9.1 (8.4-10.2) mg/dL Magnesium 1.7 (1.6-2.3) mg/dL Troponin I (0.000-0.034) ng/mL NT-Pro-B Natriuret Pep pg/mL 05/05/19 05/05/19 Range/Units 15:02 15:02 WBC (3.8-10.6) k/uL RBC (3.80-5.40) m/uL Hgb (11.4-16.0) gm/dL Hct (34.0-46.0) % MCV (80.0-100.0) fL MCH (25.0-35.0) pg MCHC (31.0-37.0) g/dL RDW (11.5-15.5) % Plt Count (150-450) k/uL Neutrophils % % Lymphocytes % % Monocytes % % Eosinophils % % Basophils % % Neutrophils # (1.3-7.7) k/uL Lymphocytes # (1.0-4.8) k/uL Monocytes # (0-1.0) k/uL Eosinophils # (0-0.7) k/uL Basophils # (0-0.2) k/uL PT (9.0-12.0) sec INR (<1.2) APTT (22.0-30.0) sec D-Dimer (<0.60) mg/L FEU Sodium (137-145) mmol/L Potassium (3.5-5.1) mmol/L Chloride (98-107) mmol/L Carbon Dioxide (22-30) mmol/L Anion Gap mmol/L BUN (7-17) mg/dL Creatinine (0.52-1.04) mg/dL Est GFR (CKD-EPI)AfAm (>60 ml/min/1.73 sqM) Est GFR (CKD-EPI)NonAf (>60 ml/min/1.73 sqM) Glucose (74-99) mg/dL Calcium (8.4-10.2) mg/dL Magnesium (1.6-2.3) mg/dL Troponin I <0.012 (0.000-0.034) ng/mL NT-Pro-B Natriuret Pep 561 pg/mL Disposition Clinical Impression: Dyspnea Disposition: HOME SELF-CARE Condition: Good Instructions (If sedation given, give patient instructions): Dyspnea (ED) Is patient prescribed a controlled substance at d/c from ED?: No Referrals: Lee Severino MD [Primary Care Provider] - 1-2 days Time of Disposition: 16:48
--- NOTE | 2019-05-05 14:46 | XR ---
EXAMINATION TYPE: XR chest 2V DATE OF EXAM: 05/05/2019 COMPARISON: 03/29/2019 TECHNIQUE: PA and lateral views submitted. HISTORY: Pain FINDINGS: The lungs are clear and there is no pneumothorax, pleural effusion, or focal pneumonia. Calcified g ranuloma left lower lobe. Linear density left upper lobe compatible scarring or atelectasis. Diffuse osteopenia. No overt failure. Heart size normal. Degenerative change of the spine. IMPRESSION: 1. No acute process.
[2019-05-05 15:27] LABS: Calcium 9.1 mg/dL (8.4-10.2); Magnesium 1.7 mg/dL (1.6-2.3); Potassium 4.4 mmol/L (3.5-5.1)
[2019-05-05 15:30] VITALS: RESP 18
[2019-05-05 15:32] LABS: INR 0.9 (<1.2); Partial Thromboplastin Time 23.5 sec (22.0-30.0); Prothrombin Time 9.5 sec (9.0-12.0)
[2019-05-05 15:40] LABS: Basophils % (A) 0 %; Eosinophils # (A) 0.2 k/uL (0-0.7); Eosinophils % (A) 4 %; HCT 33.7 % (34.0-46.0); HGB 11.2 gm/dL (11.4-16.0); Lymphocytes # (A) 1.8 k/uL (1.0-4.8); Lymphocytes % (A) 35 %; MCH 30.2 pg (25.0-35.0); MCHC 33.2 g/dL (31.0-37.0); MCV 90.8 fL (80.0-100.0); Mean Platelet Volume 6.2; Monocytes # (A) 0.2 k/uL (0-1.0); Monocytes % (A) 4 %; Neutrophils # (A) 2.8 k/uL (1.3-7.7); Neutrophils % (A) 55 %; Platelet Count 238 k/uL (150-450); RBC 3.71 m/uL (3.80-5.40); RDW 14.7 % (11.5-15.5); WBC 5.1 k/uL (3.8-10.6)
[2019-05-05 15:50] LABS: D-Dimer 1.21 mg/L FEU (<0.60)
--- NOTE | 2019-05-05 16:26 | CT ---
EXAMINATION TYPE: CT angio chest DATE OF EXAM: 05/05/2019 COMPARISON: CTA chest September 16, 2016 HISTORY: Shortness of breath CT DLP: 338.8 mGycm. Automated Exposure Control for Dose Reduction was Utilized. CONTRAST: CTA scan of the thorax is performed with IV Contrast, patient injected with 80 mL of Isovue 370, pulm onary embolism protocol. MIP Images are created on CT scanner and reviewed. FINDINGS: LUNGS: Mild underlying emphysematous changes redemonstrated. No pleural effusion or pneumothorax is s een. There is large calcified nodule or granuloma posteriorly in the left lower lobe redemonstrated. No suspicious consolidation. MEDIASTINUM: There is satisfactory enhancement of the pulmonary artery and its branches, there is no CT evidence for pulmonary embolism. There are no greater than 1 cm noncalcified hilar or mediastinal lymph nodes. Prominent but calcified subcarinal and right infrahilar lymph nodes are redemonstrated No cardiomegaly or pericardial effusion is seen. Coronary artery calcification is redemonstrated whi ch is noted marker for underlying coronary artery disease. OTHER: Central pneumobilia redemonstrated was present in 2017 study. Underlying scoliotic curvature a gain seen. Osseous structures are demineralized. Multilevel vacuum disc phenomenon along with disc sp jerri narrowing and spurring in the thoracic spine is redemonstrated. IMPRESSION: No CT evidence for acute pulmonary embolism. No suspicious new acute pulmonary process.
--- NOTE | 2019-05-05 17:00 | US ---
EXAMINATION TYPE: US venous doppler duplex LE BI DATE OF EXAM: 05/05/2019 4:45 PM COMPARISON: Bilateral lower extremity DVT September 09, 2012 CLINICAL HISTORY: rule out PE. SOB, history of DVT right leg SIDE PERFORMED: bilateral TECHNIQUE: The lower extremity deep venous system is examined utilizing real time linear array sonog radhika with graded compression, doppler sonography and color-flow sonography. VESSELS IMAGED: External Iliac Vein (EIV) Common Femoral Vein Deep Femoral Vein Greater Saphenous Vein * Femoral Vein Popliteal Vein Small Saphenous Vein * Proximal Calf Veins (* superficial vessels) Right Leg: Possible Chronic appearing DVT noted right femoral vein mid and popliteal vein distal , t hready flow with partial compression Left Leg: No evidence of DVT Grayscale, color doppler, spectral doppler imaging performed of the deep veins of the right lower ext remity. There is normal flow, compressibility, vascular waveforms. Persistent incomplete compressib ility of the mid to distal right femoral vein into the popliteal vein with decreased flow similar to prior study. IMPRESSION: Stable partial occlusive chronic DVT right lower extremity. No new acute DVT is evident.
[2019-05-05 17:20] VITALS: BP 139/82; PULSE 98; TEMP 97.8
== END 2019-05-05 17:15 | disposition home or self-care (01) ==
LOC: EC 13:56
DX: R06.02 Shortness of breath (principal); F41.9 Anxiety disorder, unspecified; F32.9 Major depressive disorder, single episode, unspecified; I25.10 Atherosclerotic heart disease of native coronary artery without angina pectoris; J44.9 Chronic obstructive pulmonary disease, unspecified; K21.9 Gastro-esophageal reflux disease without esophagitis; E78.5 Hyperlipidemia, unspecified; I10 Essential (primary) hypertension; I25.2 Old myocardial infarction; M06.9 Rheumatoid arthritis, unspecified; E03.9 Hypothyroidism, unspecified; G89.29 Other chronic pain; M54.9 Dorsalgia, unspecified; E11.42 Type 2 diabetes mellitus with diabetic polyneuropathy; H40.9 Unspecified glaucoma; G25.81 Restless legs syndrome; Z79.82 Long term (current) use of aspirin; Z79.890 Hormone replacement therapy; Z79.4 Long term (current) use of insulin; Z79.51 Long term (current) use of inhaled steroids; Z79.899 Other long term (current) drug therapy; Z91.040 Latex allergy status; Z88.2 Allergy status to sulfonamides; Z91.030 Bee allergy status; Z88.5 Allergy status to narcotic agent; Z88.8 Allergy status to other drugs, medicaments and biological substances; Z95.5 Presence of coronary angioplasty implant and graft; Z86.73 Personal history of transient ischemic attack (TIA), and cerebral infarction without residual deficits; Z86.718 Personal history of other venous thrombosis and embolism; Z87.891 Personal history of nicotine dependence; Z85.528 Personal history of other malignant neoplasm of kidney; Z82.49 Family history of ischemic heart disease and other diseases of the circulatory system; Z90.5 Acquired absence of kidney
CPT/HCPCS: 36415; 71046; 71275; 80048; 83735; 83880; 84484; 85025; 85379; 85610; 85730; 93970; 99285

== ENCOUNTER 2019-12-23 14:13 | Emergency (ER) | payer OTHER ==
[2019-12-23 15:27] LABS: Phencyclidine Screen,Urine Not Detected (NotDetected); Urn Cannabinoid Scrn Detected (NotDetected)
[2019-12-23 15:28] LABS: Amphetamine Screen,Urine Not Detected (NotDetected); Barbiturate Screen,Urine Not Detected (NotDetected); Benzodiazepines Screen,Urine Not Detected (NotDetected); Cocaine Screen,Urine Not Detected (NotDetected); Methadone Screen, Urine Not Detected (NotDetected); Opiate Screen,Urine Detected (NotDetected); Oxycodone Screen, Urine Not Detected (NotDetected); Tricyclic Antidepressant,Urine Detected (NotDetected)
--- NOTE | 2019-12-23 16:16 | ED ---
Psych HPI - General Chief Complaint: Psychiatric Symptoms Stated Complaint: Depression Time Seen by Provider: 12/23/19 14:20 Source: patient, RN notes reviewed Mode of arrival: ambulatory Limitations: no limitations - History of Present Illness Initial Comments: 59-year-old female sent emergency department for psychiatric evaluation. Patient states that she is depressed she is not suicidal. She does have a long history of depression has been admitted to [facility] in the past. She states she is on Effexor which is not helping. Patient denies any homicidal ideation she does use medical marijuana denies any other illicit drug use no alcohol abuse. - Related Data Home Medications Medication Instructions Recorded Confirmed Venlafaxine HCl [Venlafaxine HCl 225 mg PO DAILY 10/21/16 12/23/19 ER] Hydrocodone/Acetaminophen [Kewadin 1 tab PO BID PRN 04/21/18 12/23/19 5-325] Albuterol Sulfate [Proair Hfa] 2 puff INHALATION RT-Q6H PRN 03/29/19 12/23/19 Cyclobenzaprine [Flexeril] 5 mg PO BID PRN 03/29/19 12/23/19 Insulin Lispro [Admelog] 0.01 unit SQ-PUMP CONTINUOUS 03/29/19 12/23/19 Loratadine [Claritin] 10 mg PO DAILY 03/29/19 12/23/19 Albuterol Nebulized [Ventolin 2.5 mg INHALATION RT-QID PRN 12/23/19 12/23/19 Nebulized] Aspirin 81 mg PO DAILY 12/23/19 12/23/19 Atorvastatin [Lipitor] 80 mg PO DAILY 12/23/19 12/23/19 Beclomethasone Dip 80 Mcg/Puff 2 puff INHALATION RT-BID 12/23/19 12/23/19 [Qvar 80 mcg] Cariprazine HCl [Vraylar] 1.5 mg PO DAILY 12/23/19 12/23/19 Gabapentin [Neurontin] 300 mg PO BID 12/23/19 12/23/19 Levothyroxine Sodium [Synthroid] 150 mcg PO DAILY 12/23/19 12/23/19 Pioglitazone [Actos] 15 mg PO DAILY 12/23/19 12/23/19 Topiramate [Topamax] 50 mg PO HS 12/23/19 12/23/19 Allergies Allergy/AdvReac Type Severity Reaction Status Date / Time grass pollen Allergy Unknown Verified 12/23/19 15:47 latex Allergy Rash/Hives Verified 12/23/19 15:47 Sulfa (Sulfonamide Allergy Rash/Hives/ Verified 12/23/19 15:47 Antibiotics) Swelling venom-honey bee Allergy Anaphylaxis Verified 12/23/19 15:47 morphine AdvReac Decreased Verified 12/23/19 15:47 Blood Pressure prochlorperazine edisylate AdvReac Vomiting Verified 12/23/19 15:47 [From Compazine] Review of Systems ROS Statement: Those systems with pertinent positive or pertinent negative responses have been documented in the HPI. ROS Other: All systems not noted in ROS Statement are negative. Past Medical History Past Medical History: Coronary Artery Disease (CAD), Cancer, COPD, CVA/TIA, Diabetes Mellitus, Deep Vein Thrombosis (DVT), Eye Disorder, GERD/Reflux, Hyperlipidemia, Hypertension, Myocardial Infarction ([place]), Renal Disease, Rheumatoid Arthritis (RA), Sleep Apnea/CPAP/BIPAP, Syncope, Thyroid Disorder Additional Past Medical History / Comment(s): 09/16/16 with SBO with surgery/possible septic emboli with cavitary lesions bilateral lungs. Hx: left renal cell carcinoma with partial nephrectomy 7 yrs ago, CVA 4, last 1 month ago, no residual effects, DVT left leg 7-8 yrs ago, hypothyroidism, chronic back pain, hx UTI with sepsis secondary to ESBL producing E. coli 2015 req uiring PICC line insertion for IV antibiotics, restless leg syndrome, peripheral neropathy. Hx bilateral glaucoma, hx syncope r/t low blood sugars. No CPAP use. Last Myocardial Infarction Date:: 2012 History of Any Multi-Drug Resistant Organisms: ESBL, MRSA, VRE Date of last positivie culture/infection: 05/07/16 ESBL, 05/15/16 VRE, MRSA 09/2017 - upper lip MDRO Source:: URINE E.COLI, EC GALLINARUM Past Surgical History: Appendectomy, Bowel Resection, Section, Heart Catheterization, Hernia Repair Additional Past Surgical History / Comment(s): 09/30 exploratory laparotomy, lysis of adhesions bowel resection d/t obstruction. Hx: repair incarcerated incisional hernia with abdominal washout, thyroidectomy(non functioning), heart cath 06/28 - 100% occluded, unable to stent, partial nephrectomy for left kidney renal cell carcinoma, PICC line insertion (since removed), colonoscopy, bilateral cataract removal with lens implants, 2 Sections. Past Anesthesia/Blood Transfusion Reactions: No Reported Reaction Past Psychological History: Anxiety, Depression Smoking Status: Former smoker Past Alcohol Use History: None Reported Past Drug Use History: Cocaine, Marijuana - Past Family History Sister(s) Family Medical History: Cancer, Sleep Apnea/CPAP/BIPAP Additional Family Medical History / Comment(s): Patient has one sister that from liver cancer, borderline DM, PAD, hep. c. Brother(s) Family Medical History: Cancer, Coronary Artery Disease (CAD), Deep Vein Thrombosis (DVT), Hyperlipidemia Additional Family Medical History / Comment(s): Patient has 1 brother with past ETOH, past drug abuse, DVT's. She has a second brother that has from throat cancer. Daughter(s) Family Medical History: Diabetes Mellitus, Myocardial Infarction ([place]) Additional Family Medical History / Comment(s): Daughter at 23 yrs old from massive [place]. Father Family Medical History: Myocardial Infarction ([place]) Additional Family Medical History / Comment(s): from [place] at age 44 Mother Family Medical History: Cancer Additional Family Medical History / Comment(s): maeve breasts removed d/t cancer, hysterectomy d/t cancer. Mother from metastatic breast cancer. General Exam Limitations: no limitations General appearance: alert, in no apparent distress Head exam: Present: atraumatic, normocephalic, normal inspection Eye exam: Present: normal appearance, PERRL, EOMI. Absent: scleral icterus, conjunctival injection, periorbital swelling ENT exam: Present: normal exam, normal oropharynx, mucous membranes moist Neck exam: Present: normal inspection, full ROM. Absent: tenderness, meningismus, lymphadenopathy Respiratory exam: Present: normal lung sounds bilaterally. Absent: respiratory distress, wheezes, rales, rhonchi, stridor Cardiovascular Exam: Present: regular rate, normal rhythm, normal heart sounds. Absent: systolic murmur, diastolic murmur, rubs, gallop, clicks Neurological exam: Present: alert, oriented X3, CN II-XII intact, reflexes normal. Absent: motor sensory deficit Psychiatric exam: Present: depressed Skin exam: Present: warm, dry, intact, normal color. Absent: rash Course Vital Signs 12/23/19 12/23/19 12/23/19 14:16 14:19 15:19 Temperature 98.1 F Pulse Rate 99 Respiratory 18 18 18 Rate Blood Pressure 121/82 O2 Sat by Pulse 96 Oximetry Medical Decision Making - Medical Decision Making Patient evaluated by EPS case discussed with psychiatrist recommends outpatient treatment with [facility] she has set up with this she has a safety plan and is not suicidal. - Lab Data Lab Results 12/23/19 Range/Units 14:43 Urine Opiates Screen Detected H (NotDetected) Ur Oxycodone Screen Not Detected (NotDetected) Urine Methadone Screen Not Detected (NotDetected) Ur Propoxyphene Screen Not Detected (NotDetected) Ur Barbiturates Screen Not Detected (NotDetected) U Tricyclic Antidepress Detected H (NotDetected) Ur Phencyclidine Scrn Not Detected (NotDetected) Ur Amphetamines Screen Not Detected (NotDetected) U Methamphetamines Scrn Not Detected (NotDetected) U Benzodiazepines Scrn Not Detected (NotDetected) Urine Cocaine Screen Not Detected (NotDetected) U Marijuana (THC) Screen Detected H (NotDetected) Disposition Clinical Impression: Depression Disposition: HOME SELF-CARE Condition: Stable Instructions (If sedation given, give patient instructions): Depression (ED) Additional Instructions: Please return to the Emergency Department if symptoms worsen or any other concerns. Is patient prescribed a controlled substance at d/c from ED?: No Referrals: Lee Severino MD [Primary Care Provider] - 1-2 days Time of Disposition: 16:32
[2019-12-24 10:14] VITALS: BP 142/74; PULSE 83; RESP 18; TEMP 98.2
== END 2019-12-23 17:12 | disposition home or self-care (01) ==
LOC: EC 14:13
DX: F32.9 Major depressive disorder, single episode, unspecified (principal); I25.10 Atherosclerotic heart disease of native coronary artery without angina pectoris; J44.9 Chronic obstructive pulmonary disease, unspecified; E11.42 Type 2 diabetes mellitus with diabetic polyneuropathy; K21.9 Gastro-esophageal reflux disease without esophagitis; E78.5 Hyperlipidemia, unspecified; I10 Essential (primary) hypertension; I25.2 Old myocardial infarction; M06.9 Rheumatoid arthritis, unspecified; E07.9 Disorder of thyroid, unspecified; F41.9 Anxiety disorder, unspecified; G47.30 Sleep apnea, unspecified; Z79.51 Long term (current) use of inhaled steroids; Z79.82 Long term (current) use of aspirin; Z79.890 Hormone replacement therapy; Z79.899 Other long term (current) drug therapy; Z79.01 Long term (current) use of anticoagulants; Z88.2 Allergy status to sulfonamides; Z88.5 Allergy status to narcotic agent; Z88.8 Allergy status to other drugs, medicaments and biological substances; Z91.048 Other nonmedicinal substance allergy status; Z91.040 Latex allergy status; Z91.030 Bee allergy status; Z87.891 Personal history of nicotine dependence; Z86.14 Personal history of Methicillin resistant Staphylococcus aureus infection; Z86.718 Personal history of other venous thrombosis and embolism; Z86.73 Personal history of transient ischemic attack (TIA), and cerebral infarction without residual deficits; Z95.5 Presence of coronary angioplasty implant and graft; Z90.89 Acquired absence of other organs; Z98.42 Cataract extraction status, left eye; Z98.41 Cataract extraction status, right eye; Z96.1 Presence of intraocular lens; Z90.5 Acquired absence of kidney; Z85.528 Personal history of other malignant neoplasm of kidney; Z99.89 Dependence on other enabling machines and devices; Z96.41 Presence of insulin pump (external) (internal); Z80.3 Family history of malignant neoplasm of breast; Z80.8 Family history of malignant neoplasm of other organs or systems
CPT/HCPCS: 80306; 82075; 99284

== ENCOUNTER 2020-04-06 08:52 | Inpatient (IN) | payer OTHER ==
[2020-04-06] MEDS ORDERED: IV FLUID CONTINUATION 1,000 ML IV ONE (09:55)
[2020-04-06] MEDS ORDERED: fentaNYL (PF) 50 MCG/ML 2 ML AMP ONE (10:16)
[2020-04-06] MEDS ORDERED: fentaNYL (PF) 50 MCG/ML 2 ML AMP IV ONE (10:17)
[2020-04-06] MEDS ORDERED: MIDAZOLAM 2 MG/2 ML VIAL IV ONE (10:19)
[2020-04-06] MEDS ORDERED: LIDOCAINE 1%-EPI 1:100,000 20 ML VIAL SQ ONE (10:22)
[2020-04-06] MEDS ORDERED: BIVALIRUDIN 250 MG in SODIUM CHLORIDE 0.9% 50 ML IV ONE (10:26)
[2020-04-06] MEDS ORDERED: BIVALIRUDIN BOLUS 250 MG/50 ML IV ONE (10:26)
[2020-04-06] MEDS: NITROGLYCERIN 1000MCG/10ML SYRINGE INTRACORON ONE ×2 (10:36→10:42)
[2020-04-06] MEDS ORDERED: niCARdipine 25 MG/10 ML VIAL ONE (10:41)
[2020-04-06] MEDS ORDERED: niCARdipine Syringe (1,000 mcg/10 mL) INTRACORON ONE (10:42)
[2020-04-06] MEDS ORDERED: HYDROmorphone 1 MG/ML 1 ML SYRINGE ONE (10:45)
[2020-04-06] MEDS ORDERED: IOPAMIDOL-370 125ML BTL INJ ONE (10:49)
[2020-04-06] MEDS ORDERED: HYDROcodone/APAP 5-325MG 1 EACH TAB PO PRN (10:52)
[2020-04-06] MEDS ORDERED: ALBUTEROL NEBULIZED 2.5 MG/3 ML INHALATION PRN (10:52)
[2020-04-06] MEDS ORDERED: CYCLOBENZAPRINE 5 MG TAB PO PRN (10:52)
[2020-04-06] MEDS ORDERED: ALBUTEROL HFA INHALER INHALATION PRN (10:52)
[2020-04-06] MEDS ORDERED: MAG HYDROX/AL HYDROX/SIMETH 30 ML CUP PO PRN (10:53)
[2020-04-06] MEDS ORDERED: RX INFO: IV CONTRAST WAS GIVEN 1 EACH MISC MISCELLANE PRN (10:53)
[2020-04-06] MEDS ORDERED: ZOLPIDEM 5 MG TAB PO PRN (10:53)
[2020-04-06] MEDS ORDERED: NITROGLYCERIN SL TABS 0.4 MG TAB SUBLINGUAL PRN (10:53)
[2020-04-06] MEDS ORDERED: ATROPINE SULFATE 0.1 MG/ML 10ML SYRINGE IV PRN (10:53)
[2020-04-06] MEDS ORDERED: CLOPIDOGREL 75 MG TAB PO ONE (10:54)
[2020-04-06] MEDS ORDERED: SODIUM CHLORIDE 0.9% 1,000 ML IV SCH (11:00)
[2020-04-06 11:32] LABS: Glucose,Whole Blood 174 mg/dL (75-99)
--- NOTE | 2020-04-06 14:05 | PTCA ---
PERCUTANEOUSTRANS CORORONARY ANGIOGRAPHY PERCUTANEOUS CORONARY INTERVENTION: DATE OF SERVICE: 04/06/2020 PERFORMING PHYSICIAN: Wellington Kurtz MD. PROCEDURE PERFORMED: Successful stenting of the proximal left anterior descending artery using 2.5 x 15 mm Xience MAVIS with an excellent angiographic result and reduction of stenosis from 80% to 0%. INDICATION: This is a 60-year-old female patient who sees Dr. Sierra in the office as an outpatient with known coronary artery disease as well as hypertension and dyslipidemia who was admitted to [facility] with chest discomfort and continues to have chest discomfort with exertion concerning for angina. She underwent a heart catheterization over there and that revealed critical disease involving the left anterior descending artery. Because of that, she was brought today to undergo an intervention. APPROACH: Right common femoral artery. COMPLICATION: None. LEVEL OF SEDATION: Moderate with sedation length of 24 minutes. PROCEDURE DESCRIPTION: Please refer to the diagnostic heart catheterization was performed at [facility]. Using 0.35 wire, I did XI did change the old 6-Ethiopian 11 cm sheath into a new 6-Ethiopian 11 cm sheath. Anticoagulation was initiated using Angiomax with bolus and drip per protocol. Subsequently, I did engage the left main using a JL3 guide. I did wire the LAD using a whisper wire. I did balloon angioplasty using 2.0 x 12 mm balloon before I deployed 2.5 x 15 mm Xience MAVIS where the stent was positioned under fluoroscopy guidance and deployed under 12 atmospheres for 20 seconds. The following angiogram showed excellent angiographic results and the procedure was completed without any complication. POSTPROCEDURE MANAGEMENT: 1. Dual anti-platelet therapy. 2. Risk factor modifications. 3. Follow up with the patient. MMODL / IJN: [id number] /
[2020-04-06 14:31] VITALS: BMI 27.7
[2020-04-06 14:59] LABS: Glucose,Whole Blood 110 mg/dL (75-99)
[2020-04-06] MEDS: INSULIN LISPRO (For Pump) 100 UNIT/ML VIAL SQ-PUMP SCH (15:47)
[2020-04-06 17:11] LABS: Glucose,Whole Blood 151 mg/dL (75-99)
[2020-04-06] MEDS: FLUTICASONE 110 MCG INHALER INHALATION SCH (19:30)
[2020-04-06] MEDS: GABAPENTIN 300 MG CAP PO SCH (20:12)
[2020-04-06 20:49] LABS: Glucose,Whole Blood 164 mg/dL (75-99)
[2020-04-06] MEDS ORDERED: TOPIRAMATE 25 MG TAB PO SCH (21:00)
--- NOTE | 2020-04-06 23:45 | P.HPIM ---
History of Present Illness H&P Date: 04/06/20 Chief Complaint: Non-ST SC, CAD post PCI and stent placement of the proximal LAD, severe hyp 60-year-old female one of Dr. hung's patient with past medical history of CAD, COPD, type 2 diabetes and chronic kidney disease who was hospitalized at [facility] last weekend with non-ST SC along with worsening shortness of breath and nonketotic hyperglycemia blood sugar running 300-400 time. Patient was stabilized the continue having chest pain on and off ended up coming for heart cath at [facility] showed significant blockage of the proximal LAD. Patient was sent to the cathode maker at [facility] and ended up haing an angioplasty and stent placement of the proxml LAD with Dr Kurtz successfully was sarted onanicagulation antiplatelet agent along with higher dose of statin and admitted to the hospital afterward for the above problem. Review of Systems CONSTITUTIONAL: Well-developed no acute respiratory distress. Morbidly obese laying in bed EYES: No icterus sclerae, no conjunctivitis. EARS, NOSE, MOUTH, THROAT, and FACE: No sore throat, lymphadenopathy, carotid bruits or deformity. RESPIRATORY: Positive shortness of breath cough wheezes. CARDIOVASCULAR: Positive PND orthopnea and angina. Patient no angina., Palpitation, PND, Orthopnea, or angina. GASTROINTESTINAL: No Abd pain, Nausea or vomiting, no Diarrhea or constipation, No GI Bleed, no distention or masses. GENITOURINARY: Negative for Hematuria or UTI, no kidney stones. INTEGUMENT/BREAST: Negative for any muscular injury with mild osteoarthritis.. HEMATOLOGIC/LYMPHATIC: Negative for bleed or purpura. MUSCULOSKELTAL: Negative for Myalgia or arthralgia. NEURLOGICAL: No LOC, Sz or syncope, blurred vision dizziness or abnormality.. BEHAVIORAL/PSYCH: Negative. ENDOCRINE: Negative. Past Medical History Past Medical History: Coronary Artery Disease (CAD), Cancer, COPD, CVA/TIA, Diabetes Mellitus, Deep Vein Thrombosis (DVT), Eye Disorder, GERD/Reflux, Hearing Disorder / Deafness, Hyperlipidemia, Hypertension, Myocardial Infarction (SC), Renal Disease, Rheumatoid Arthritis (RA), Sleep Apnea/CPAP/BIPAP, Syncope, Thyroid Disorder Additional Past Medical History / Comment(s): 09/16/16 with SBO with surgery/possible septic emboli with cavitary lesions bilateral lungs. 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 coli Nov. 2015 requiring PICC line insertion for IV antibiotics, restless leg syndrome, peripheral neropathy. Hx bilateral glaucoma, hx syncope r/t low blood sugars. No CPAP use. - December 2019 Last Myocardial Infarction Date:: 2012 History of Any Multi-Drug Resistant Organisms: ESBL, MRSA, VRE Date of last positivie culture/infection: 05/07/16 ESBL, 05/15/16 VRE, MRSA 09/2017 - upper lip MDRO Source:: URINE E.COLI, EC GALLINARUM Past Surgical History: Appendectomy, Bowel Resection, Section, Heart Catheterization With Stent, Hernia Repair Additional Past Surgical History / Comment(s): 09/30 exploratory laparotomy, lysis of adhesions bowel resection d/t obstruction. Hx: repair incarcerated incisional hernia with abdominal washout, thyroidectomy(non functioning), heart cath 06/28 - 100% occluded, unable to stent, partial nephrectomy for left kidney renal cell carcinoma, PICC line insertion (since removed), colonoscopy, bilateral cataract removal with lens implants, 2 Sections. Past Anesthesia/Blood Transfusion Reactions: No Reported Reaction Date of Last Stent Placement:: 04/06/2020 Past Psychological History: Anxiety, Depression Additional Psychological History / Comment(s): TAKES EFFEXOR FOR DEPRESSION STATED SHE FEELS MAINTAINED ON THAT MEDICATION.DENIES ANY THOUGHTS OF HARMING SELF. Pt lives with her significant other in [facility] and is independant. She is able to drive, but does not own a car. She arranges rides thru [place] or uses a cab. Smoking Status: Current some day smoker Past Alcohol Use History: None Reported Additional Past Alcohol Use History / Comment(s): STARTED SMOKING AT AGE 8, smoked one to one and half packs per day for 50 years. She started Chantix on 10/26/2017, cut back to 1-2 ciagrettes and quit smoking 2 weeks ago. 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 Past Drug Use History: Cocaine, Marijuana Additional Drug Use History / Comment(s): USES MARIJUANA 1-2X monthly, last used 2 weeks ago. Hx of addiction to cocaine, has not used in 20 yrs. - Past Family History Sister(s) Family Medical History: Cancer, Sleep Apnea/CPAP/BIPAP Additional Family Medical History / Comment(s): Patient has one sister that from liver cancer, borderline DM, PAD, hep. c. Brother(s) Family Medical History: Cancer, Coronary Artery Disease (CAD), Deep Vein Thrombosis (DVT), Hyperlipidemia Additional Family Medical History / Comment(s): Patient has 1 brother with past ETOH, past drug abuse, DVT's. She has a second brother that has from throat cancer. Daughter(s) Family Medical History: Diabetes Mellitus, Myocardial Infarction (SC) Additional Family Medical History / Comment(s): Daughter at 23 yrs old from massive SC. Father Family Medical History: Myocardial Infarction (SC) Additional Family Medical History / Comment(s): from mi at age 44 Mother Family Medical History: Cancer Additional Family Medical History / Comment(s): maeve breasts removed d/t cancer, hysterectomy d/t cancer. Mother from metastatic breast cancer. Medications and Allergies Home Medications Medication Instructions Recorded Confirmed Type Venlafaxine HCl [Venlafaxine HCl 225 mg PO DAILY 10/21/16 04/06/20 History ER] Albuterol Sulfate [Proair Hfa] 2 puff INHALATION RT-Q6H PRN 03/29/19 04/06/20 History Cyclobenzaprine [Flexeril] 5 mg PO BID PRN 03/29/19 04/06/20 History Insulin Lispro [Admelog] 0.01 unit SQ-PUMP CONTINUOUS 03/29/19 04/06/20 History Loratadine [Claritin] 10 mg PO DAILY 03/29/19 04/06/20 History Albuterol Nebulized [Ventolin 2.5 mg INHALATION RT-QID PRN 12/23/19 04/06/20 History Nebulized] Aspirin 81 mg PO DAILY 12/23/19 04/06/20 History Atorvastatin [Lipitor] 80 mg PO HS 12/23/19 04/06/20 History Beclomethasone Dip 80 Mcg/Puff 2 puff INHALATION RT-BID 12/23/19 04/06/20 History [Qvar 80 mcg] Levothyroxine Sodium [Synthroid] 150 mcg PO DAILY 12/23/19 04/06/20 History Pioglitazone [Actos] 15 mg PO DAILY 12/23/19 04/06/20 History Topiramate [Topamax] 50 mg PO HS 12/23/19 04/06/20 History Diclofenac Sodium [Voltaren Gel] 2 gram TOPICAL QID PRN 04/06/20 04/06/20 History Isosorbide Mononitrate ER [Imdur] 60 mg PO DAILY 04/06/20 04/06/20 History Meclizine [Antivert] 12.5 mg PO TID PRN 04/06/20 04/06/20 History Metoprolol Succinate (ER) [Toprol 50 mg PO HS 04/06/20 04/06/20 History Xl] Nitroglycerin Sl Tabs [Nitrostat] 0.4 mg SL Q5M PRN 04/06/20 04/06/20 History Pantoprazole Sodium [Protonix] 40 mg PO DAILY 04/06/20 04/06/20 History Vitamin B Complex 1 cap PO DAILY 04/06/20 04/06/20 History Vitamin C Gummy(Unknown Dose) 1 tab PO DAILY 04/06/20 04/06/20 History Allergies Allergy/AdvReac Type Severity Reaction Status Date / Time grass pollen Allergy Unknown Verified 12/23/19 15:47 latex Allergy Rash/Hives Verified 12/23/19 15:47 Sulfa (Sulfonamide Allergy Rash/Hives/ Verified 12/23/19 15:47 Antibiotics) Swelling venom-honey bee Allergy Anaphylaxis Verified 12/23/19 15:47 morphine AdvReac Decreased Verified 12/23/19 15:47 Blood Pressure prochlorperazine edisylate AdvReac Vomiting Verified 12/23/19 15:47 [From Compazine] Physical Exam Vitals: Vital Signs Pulse Resp BP Pulse Ox 04/06/20 14:45 76 17 123/58 98 04/06/20 14:30 75 16 117/76 99 04/06/20 14:15 70 16 109/72 93 L 04/06/20 14:00 89 16 129/84 97 04/06/20 13:38 65 16 115/65 96 04/06/20 12:22 72 16 119/55 99 04/06/20 12:01 72 16 110/62 04/06/20 11:38 79 16 104/53 10/22/20 11:23 74 16 126/85 10/22/20 11:08 73 16 128/87 99 Intake and Output 04/06/20 04/06/20 04/06/20 06:59 14:59 22:59 Intake Total 640 Output Total 750 Balance -110 Intake: IV 400 Sodium Chloride 0.9% 1, 250 000 ml @ 75 mls/hr IV . [id number] [facility] Rx#:[id number] Oral 240 Output: Urine 750 Other: Weight 71 kg General Appearance: Alert, cooperative, no distress, morbidly obese Neck HEENT: Supple, no lymphadenopathy, no thyroid enlargement, no carotid bruits. Lungs: Decreased breath some bilateral rhonchi possible mild crackles mild expiratory wheezes. Chest Wall: Decrease expansion with deep inspiration no tenderness and no defor mity was found on exam, no costochondral pain or discomfort. Heart: Regular rate and rhythm, S1, S2 normal, no murmur, rub or gallop. Back: Symmetric, no curvature, ROM normal, no CVA tenderness. Abdomen: Soft, non-tender, bowel sounds active all four quadrants, no masses, no organomegaly. Extremities: Extremities normal, atraumatic, no cyanosis or edema. Pulses: 2+ and symmetric. Skin: Skin color, texture, tugor normal, no rashes or lesions. Neurologic: Alert oriented x3 cranial nerves II through XII intact, no motor deficit, no abnormal balance or gait. Results Labs: Abnormal Lab Results - Last 24 Hours (Table) 04/06/20 04/06/20 04/06/20 Range/Units 11:30 14:54 17:04 POC Glucose (mg/dL) 174 H 110 H 151 H (75-99) mg/dL Thrombosis Risk Factor Assmnt - DVT/VTE Prophylaxis DVT/VTE Prophylaxis: Pharmacologic Prophylaxis ordered, Mechanical Prophylaxis ordered - Choose All That Apply Each Factor Represents 1 point: Age 41-60 years, Obesity (BMI >25) Other Risk Factors: No Other congenital or acquired thrombophilia - If yes, enter type in comment: No Thrombosis Risk Factor Assessment Total Risk Factor Score: 2 Thrombosis Risk Factor Assessment Level: Low Risk Assessment and Plan Assessment: 1 non-ST SC: Patient ended up going to the cathode maker had a PCI and stent darius cement of the proximal LAD doing well so far continue secondary prevention. 2 significant CAD with more blockage in the proximal LAD post PCI and stent placement. 3 nonketotic hyperglycemia: Patient seen endocrinology along with her primary care physician on regular basis she is on insulin pump which start her insulin back again continue Accu-Chek with sliding scales coverage for now. 4 COPD: With worsening symptoms she has been on DuoNeb and Flovent continue medication. 5 Hyperlipidemia: Patient remain on atorvastatin 80 mg daily. 6 Hypothyroidism: Continue patient on levothyroxine 150 g daily. 7 Chronic depression: Patient doing well on Topamax and Effexor. 8 Chronic neuropathy: Patient is on gabapentin 300 mg twice a day. 9 Chronic kidney disease: Repeat BUN/creatinine tomorrow morning. 10 GI prophylaxis: Continue patient on pantoprazole 40 mg daily. 12 DVT prophylaxis: Patient is on anticoagulation currently continue knee-high ALEXANDRE hose and Venodyne boots. CODE STATUS: Full code. Admit patient to the inpatient service for more than 2 nights.
[2020-04-07 02:16] LABS: Glucose,Whole Blood 140 mg/dL (75-99)
[2020-04-07 06:22] LABS: Glucose,Whole Blood 95 mg/dL (75-99)
[2020-04-07] MEDS ORDERED: LEVOTHYROXINE 75 MCG TAB PO SCH (06:30)
[2020-04-07] MEDS: FLUTICASONE 110 MCG INHALER INHALATION SCH (07:23)
[2020-04-07] MEDS: GABAPENTIN 300 MG CAP PO SCH (08:11)
[2020-04-07 08:54] LABS: Basophils % (A) 0 %; Eosinophils # (A) 0.2 k/uL (0-0.7); Eosinophils % (A) 4 %; HCT 35.6 % (34.0-46.0); HGB 11.5 gm/dL (11.4-16.0); Lymphocytes # (A) 1.5 k/uL (1.0-4.8); Lymphocytes % (A) 37 %; MCH 30.1 pg (25.0-35.0); MCHC 32.3 g/dL (31.0-37.0); MCV 93.2 fL (80.0-100.0); Mean Platelet Volume 7.5; Monocytes # (A) 0.2 k/uL (0-1.0); Monocytes % (A) 5 %; Neutrophils # (A) 2.1 k/uL (1.3-7.7); Neutrophils % (A) 53 %; Platelet Count 190 k/uL (150-450); RBC 3.82 m/uL (3.80-5.40); RDW 13.9 % (11.5-15.5)
[2020-04-07] MEDS ORDERED: VENLAFAXINE HCL ER 75 MG CAP PO SCH (09:00)
[2020-04-07] MEDS ORDERED: ASPIRIN 81 MG PO SCH (09:00)
[2020-04-07] MEDS ORDERED: ATORVASTATIN 80 MG TAB PO SCH (09:00)
[2020-04-07] MEDS ORDERED: METOPROLOL SUCCINATE (ER) 50 MG TAB.ER.24H PO SCH (09:00)
[2020-04-07] MEDS ORDERED: PIOGLITAZONE 15 MG TAB PO SCH (09:00)
[2020-04-07] MEDS ORDERED: LORATADINE 10 MG TAB PO SCH (09:00)
[2020-04-07] MEDS ORDERED: CLOPIDOGREL 75 MG TAB PO SCH (09:00)
[2020-04-07 09:06] LABS: Albumin 3.4 g/dL (3.5-5.0); Calcium 8.7 mg/dL (8.4-10.2); Potassium 4.8 mmol/L (3.5-5.1); Total Bilirubin 0.3 mg/dL (0.2-1.3)
[2020-04-07 11:14] VITALS: BP 129/74; PULSE 82; RESP 18; TEMP 96.8
[2020-04-07 11:50] LABS: Glucose,Whole Blood 208 mg/dL (75-99)
--- NOTE | 2020-04-07 11:56 | P.PN ---
Subjective This is a pleasant 60-year-old female past medical history significant for coronary artery disease, diabetes mellitus, hypertension, dyslipidemia, COPD and chronic kidney disease. She underwent successful PCI of the proximal LAD in the setting of a non-ST elevated myocardial infarction. She is seen and examined resting comfortably sitting up in the chair in no acute distress. Right femoral access site is clean, dry and intact with no evidence of bleeding, bruising, hematoma or ecchymosis. Distal pulses are intact. Repeat EKG this morning reveals sinus mechanism with T-wave inversions noted in the lateral leads. Blood pressure 129/74 heart rate 82 afebrile maintaining oxygen saturation on room air. Laboratory data reviewed, CBC unremarkable, sodium 136, potassium 4.8, creatinine 1.07. Currently maintained on aspirin, atorvastatin and Plavix. GENERAL: Well-appearing, well-nourished and in no acute distress. NECK: Supple without JVD or thyromegaly. LUNGS: Breath sounds clear to auscultation bilaterally. Respiration equal and unlabored. No wheezes, rales or rhonchi. HEART: Regular rate and rhythm without murmurs, rubs or gallops. S1 and S2 heard. EXTREMITIES: Normal range of motion, no edema. No clubbing or cyanosis. Peripheral pulses intact. ASSESSMENT Non-ST elevated myocardial infarction Coronary artery disease Diabetes mellitus COPD Hypertension Chronic kidney disease PLAN Continue dual antiplatelet therapy. Resume toprol and discontined Follow-up in the office with Dr. Sierra in one week. Patient has not initiated on FRANSISCO/ARB due to chronic kidney disease. Nurse Practitioner note has been reviewed, I agree with a documented findings and plan of care. Patient was seen and examined. Objective - Vital Signs Vital signs: Vital Signs Temp 96.8 F L 04/07/20 11:10 Pulse 82 04/07/20 11:10 Resp 18 04/07/20 11:10 BP 129/74 04/07/20 11:10 Pulse Ox 100 04/07/20 11:10 Intake & Output 04/06/20 04/07/20 04/07/20 18:59 06:59 18:59 Intake Total 880 476 Output Total 750 Balance 130 476 Weight 71 kg Intake: IV 400 Sodium Chloride 0.9% 1, 250 000 ml @ 75 mls/hr IV . [id number] [facility] Rx#:[id number] Oral 480 476 Output: Urine 750 Other: # Voids 3 3 - Labs CBC & Chem 7: 04/07/20 08:27 04/07/20 08:27 Labs: Abnormal Lab Results - Last 24 Hours (Table) 04/06/20 04/06/20 04/06/20 Range/Units 14:54 17:04 20:48 Sodium (137-145) mmol/L BUN (7-17) mg/dL Creatinine (0.52-1.04) mg/dL Glucose (74-99) mg/dL POC Glucose (mg/dL) 110 H 151 H 164 H (75-99) mg/dL Total Protein (6.3-8.2) g/dL Albumin (3.5-5.0) g/dL 04/07/20 04/07/20 Range/Units 02:15 08:27 Sodium 136 L (137-145) mmol/L BUN 28 H (7-17) mg/dL Creatinine 1.07 H (0.52-1.04) mg/dL Glucose 169 H (74-99) mg/dL POC Glucose (mg/dL) 140 H (75-99) mg/dL Total Protein 6.0 L (6.3-8.2) g/dL Albumin 3.4 L (3.5-5.0) g/dL
[2020-04-07] MEDS ORDERED: INSULIN ASPART (NovoLOG) 100 UNIT/ML VIAL SQ ONE (11:59)
[2020-04-07] MEDS: INSULIN LISPRO (For Pump) 100 UNIT/ML VIAL SQ-PUMP SCH (12:00)
--- NOTE | 2020-04-07 14:53 | P.DS ---
Providers Date of admission: 04/06/20 09:51 Expected date of discharge: 04/07/20 Attending physician: Gage Sy Consults: 04/06/20 10:53 Consult Physician Routine Consulting Provider: [facility] Consult Reason/Comments: Post Interventional patient Do you want consulting provider notified?: Already Contacted Primary care physician: [facility] [place] [facility] Course: 60-year-old female one of Dr. hung's patient with past medical history of CAD, COPD, type 2 diabetes and chronic kidney disease who was hospitalized at [facility] last weekend with non-ST MD along with worsening shortness of breath and nonketotic hyperglycemia blood sugar running 300-400 time. Patient was stabilized the continue having chest pain on and off ended up coming for heart cath at [facility] showed significant blockage of the proximal LAD. Patient was sent to the dental laboratory technology teacher at [facility] today and ended up haing an angioplasty and stent placement of the proxml LAD with Dr Kurtz successfully was sarted onanicagulation antiplatelet agent along with higher dose of statin and admitted to the hospital afterward for the above problem. 04/07: Patient denies having any chest pain or shortness of breath. She has been seen by cardiology and cleared for discharge home today. Medication reconciliation is completed and cardiology has discontinued Imdur. Patient will follow-up in the office with Dr. Kurtz. She has been afebrile, heart rate 82, blood pressure 129/74, pulse ox 100% on room air. CBC is unremarkable with hemoglobin 11.5. Sodium 136, BUN 20 and creatinine 1.07. Blood sugars ranging between 95 and 208. Patient has insulin pump supplies and will manage her blood sugars. Patient will be discharged home today in stable condition. DISCHARGE DIAGNOSES 1 non-ST MD 2 significant CAD status post stent proximal LAD 3 nonketotic hyperglycemia 4 COPD 5 Hyperlipidemia 6 Hypothyroidism 7 recurrent depression 8 Chronic neuropathy 9 Chronic kidney disease Discharge plan: Home Impression and plan of care have been directed as dictated by the signing physician. Hayley Ferrari nurse practitioner acting as scribe for signing physician. Patient Condition at Discharge: Good Plan - Discharge Summary New Discharge Prescriptions: New Cariprazine HCl [Vraylar] 1.5 mg PO DAILY #0 Gabapentin [Neurontin] 300 mg PO BID cap Clopidogrel [Plavix] 75 mg PO DAILY #30 tab Continue Venlafaxine HCl [Venlafaxine HCl ER] 225 mg PO DAILY Loratadine [Claritin] 10 mg PO DAILY Insulin Lispro [Admelog] 0.01 unit SQ-PUMP CONTINUOUS Cyclobenzaprine [Flexeril] 5 mg PO BID PRN PRN Reason: Muscle Spasm Albuterol Sulfate [Proair Hfa] 2 puff INHALATION RT-Q6H PRN PRN Reason: Shortness Of Breath Topiramate [Topamax] 50 mg PO HS Pioglitazone [Actos] 15 mg PO DAILY Beclomethasone Dip 80 Mcg/Puff [Qvar 80 mcg] 2 puff INHALATION RT-BID Levothyroxine Sodium [Synthroid] 150 mcg PO DAILY Atorvastatin [Lipitor] 80 mg PO HS Aspirin 81 mg PO DAILY Albuterol Nebulized [Ventolin Nebulized] 2.5 mg INHALATION RT-QID PRN PRN Reason: Wheezing Vitamin B Complex 1 cap PO DAILY Pantoprazole Sodium [Protonix] 40 mg PO DAILY Nitroglycerin Sl Tabs [Nitrostat] 0.4 mg SL Q5M PRN PRN Reason: Chest Pain Metoprolol Succinate (ER) [Toprol XL] 50 mg PO HS Meclizine [Antivert] 12.5 mg PO TID PRN PRN Reason: dizziness Diclofenac Sodium [Voltaren Gel] 2 gram TOPICAL QID PRN PRN Reason: Chest Wall Pain Vitamin C Gummy(Unknown Dose) 1 tab PO DAILY Discontinued Isosorbide Mononitrate ER [Imdur] 60 mg PO DAILY Discharge Medication List Venlafaxine HCl [Venlafaxine HCl ER] 225 mg PO DAILY 10/21/16 [History] Albuterol Sulfate [Proair Hfa] 2 puff INHALATION RT-Q6H PRN 03/29/19 [History] Cyclobenzaprine [Flexeril] 5 mg PO BID PRN 03/29/19 [History] Insulin Lispro [Admelog] 0.01 unit SQ-PUMP CONTINUOUS 03/29/19 [History] Loratadine [Claritin] 10 mg PO DAILY 03/29/19 [History] Albuterol Nebulized [Ventolin Nebulized] 2.5 mg INHALATION RT-QID PRN 12/23/19 [History] Aspirin 81 mg PO DAILY 12/23/19 [History] Atorvastatin [Lipitor] 80 mg PO HS 12/23/19 [History] Beclomethasone Dip 80 Mcg/Puff [Qvar 80 mcg] 2 puff INHALATION RT-BID 12/23/19 [History] Levothyroxine Sodium [Synthroid] 150 mcg PO DAILY 12/23/19 [History] Pioglitazone [Actos] 15 mg PO DAILY 12/23/19 [History] Topiramate [Topamax] 50 mg PO HS 12/23/19 [History] Diclofenac Sodium [Voltaren Gel] 2 gram TOPICAL QID PRN 04/06/20 [History] Meclizine [Antivert] 12.5 mg PO TID PRN 04/06/20 [History] Metoprolol Succinate (ER) [Toprol XL] 50 mg PO HS 04/06/20 [History] Nitroglycerin Sl Tabs [Nitrostat] 0.4 mg SL Q5M PRN 04/06/20 [History] Pantoprazole Sodium [Protonix] 40 mg PO DAILY 04/06/20 [History] Vitamin B Complex 1 cap PO DAILY 04/06/20 [History] Vitamin C Gummy(Unknown Dose) 1 tab PO DAILY 04/06/20 [History] Cariprazine HCl [Vraylar] 1.5 mg PO DAILY #0 04/07/20 [Rx] Clopidogrel [Plavix] 75 mg PO DAILY #30 tab 04/07/20 [Rx] Gabapentin [Neurontin] 300 mg PO BID cap 04/07/20 [Rx] Follow up Appointment(s)/Referral(s): Lee Severino MD [Primary Care Provider] - 1 Week (Office is currently closed, please call on Friday04/10/20 to schedule a follow-up appoinment during normal business hours.) Germán Sierra MD [STAFF PHYSICIAN] - 04/14/20 9:15 am Patient Instructions/Handouts: *Surgery [facility] - After Heart Catheterization - Nurse Instructions Discharge Disposition: HOME SELF-CARE
== END 2020-04-07 13:17 | disposition home or self-care (01) | DRG 247 ==
LOC: 3SCARD 09:51
PROVIDERS: ADMIT Internal Medicine Geriatric Medicine; ATTEND Internal Medicine Geriatric Medicine
PROC: 027034Z Dilation of Coronary Artery, One Artery with Drug-eluting Intraluminal Device, Percutaneous Approach (ICD-10-PCS; principal; 2020-04-06 11:55)
DX: I21.4 Non-ST elevation (NSTEMI) myocardial infarction (principal); F33.9 Major depressive disorder, recurrent, unspecified; I25.10 Atherosclerotic heart disease of native coronary artery without angina pectoris; E11.22 Type 2 diabetes mellitus with diabetic chronic kidney disease; E11.65 Type 2 diabetes mellitus with hyperglycemia; E78.5 Hyperlipidemia, unspecified; E89.0 Postprocedural hypothyroidism; F17.210 Nicotine dependence, cigarettes, uncomplicated; F41.9 Anxiety disorder, unspecified; G25.81 Restless legs syndrome; E11.42 Type 2 diabetes mellitus with diabetic polyneuropathy; H91.90 Unspecified hearing loss, unspecified ear; I12.9 Hypertensive chronic kidney disease with stage 1 through stage 4 chronic kidney disease, or unspecified chronic kidney disease; J44.9 Chronic obstructive pulmonary disease, unspecified; M06.9 Rheumatoid arthritis, unspecified; N18.9 Chronic kidney disease, unspecified; G47.33 Obstructive sleep apnea (adult) (pediatric); H40.9 Unspecified glaucoma; K21.9 Gastro-esophageal reflux disease without esophagitis; E78.00 Pure hypercholesterolemia, unspecified; L30.9 Dermatitis, unspecified; G89.29 Other chronic pain; M54.9 Dorsalgia, unspecified; E66.01 Morbid (severe) obesity due to excess calories; Z68.27 Body mass index [BMI] 27.0-27.9, adult; Z79.4 Long term (current) use of insulin; Z79.82 Long term (current) use of aspirin; Z79.890 Hormone replacement therapy; Z79.899 Other long term (current) drug therapy; Z85.528 Personal history of other malignant neoplasm of kidney; Z86.14 Personal history of Methicillin resistant Staphylococcus aureus infection; Z86.73 Personal history of transient ischemic attack (TIA), and cerebral infarction without residual deficits; Z90.5 Acquired absence of kidney; Z95.5 Presence of coronary angioplasty implant and graft; Z96.41 Presence of insulin pump (external) (internal); Z98.42 Cataract extraction status, left eye; Z98.41 Cataract extraction status, right eye; Z96.1 Presence of intraocular lens; Z86.19 Personal history of other infectious and parasitic diseases; Z86.718 Personal history of other venous thrombosis and embolism; Z87.440 Personal history of urinary (tract) infections; Z87.11 Personal history of peptic ulcer disease; Z87.19 Personal history of other diseases of the digestive system; Z90.49 Acquired absence of other specified parts of digestive tract; Z98.890 Other specified postprocedural states; Z88.1 Allergy status to other antibiotic agents; Z91.030 Bee allergy status; Z91.040 Latex allergy status; Z88.5 Allergy status to narcotic agent; Z88.2 Allergy status to sulfonamides; Z91.048 Other nonmedicinal substance allergy status; Z80.0 Family history of malignant neoplasm of digestive organs; Z80.8 Family history of malignant neoplasm of other organs or systems; Z82.49 Family history of ischemic heart disease and other diseases of the circulatory system; Z83.3 Family history of diabetes mellitus; Z80.3 Family history of malignant neoplasm of breast; Z81.1 Family history of alcohol abuse and dependence; Z83.79 Family history of other diseases of the digestive system
CPT/HCPCS: 80053; 85025; 94640; 94760

== ENCOUNTER 2020-05-12 20:51 | Observation (INO) | payer OTHER ==
[2020-05-12] MEDS ORDERED: ONDANSETRON 4 MG/2 ML VIAL IVP STA (21:15)
[2020-05-12] MEDS ORDERED: MORPHINE SULFATE 2 MG/ML SYRINGE IVP STA (21:15)
[2020-05-12] MEDS ORDERED: ASPIRIN 81 MG PO STA (21:15)
--- NOTE | 2020-05-12 21:28 | ED ---
General Adult HPI <Guerrero Fontenot - Last Filed: 05/12/20 23:08> - General Source: patient Mode of arrival: wheelchair <Shu Antony - Last Filed: 05/12/20 23:45> - General Chief complaint: Chest Pain Stated complaint: Chest Pain,Dizziness Time Seen by Provider: 05/12/20 21:09 - History of Present Illness Initial comments: 60-year-old female patient with past medical history significant for coronary artery disease, most recent stent 04/06/2020, COPD, CVA, diabetes mellitus, DVT, hyperlipidemia, hypertension presents to the emergency department today for evaluation of chest pain started approximately 2 hours ago when she was dancing. Patient states the pain is over her left chest and it feels like something is sitting on her. She states there is pain radiating down the left arm as well. Patient states it is felt like this in the past with her MIs. She reports nausea no vomiting. Denies sweats. Denies any dizziness or fainting. Denies any increased swelling or pain to the legs. Patient did take a baby aspirin this morning. Patient denies any recent rash, fever, chills, cough, abdominal pain, back pain, numbness, tingling, hematuria, dysuria, urinary urgency, urinary frequency, headache, visual changes, or any other complaints. (Shu Antony) - Related Data Home Medications Medication Instructions Recorded Confirmed Venlafaxine HCl [Venlafaxine HCl 225 mg PO DAILY 10/21/16 04/06/20 ER] Albuterol Sulfate [Proair Hfa] 2 puff INHALATION RT-Q6H PRN 03/29/19 04/06/20 Cyclobenzaprine [Flexeril] 5 mg PO BID PRN 03/29/19 04/06/20 Insulin Lispro [Admelog] 0.01 unit SQ-PUMP CONTINUOUS 03/29/19 04/06/20 Loratadine [Claritin] 10 mg PO DAILY 03/29/19 04/06/20 Albuterol Nebulized [Ventolin 2.5 mg INHALATION RT-QID PRN 12/23/19 04/06/20 Nebulized] Aspirin 81 mg PO DAILY 12/23/19 04/06/20 Atorvastatin [Lipitor] 80 mg PO HS 12/23/19 04/06/20 Beclomethasone Dip 80 Mcg/Puff 2 puff INHALATION RT-BID 12/23/19 04/06/20 [Qvar 80 mcg] Levothyroxine Sodium [Synthroid] 150 mcg PO DAILY 12/23/19 04/06/20 Pioglitazone [Actos] 15 mg PO DAILY 12/23/19 04/06/20 Topiramate [Topamax] 50 mg PO HS 12/23/19 04/06/20 Diclofenac Sodium [Voltaren Gel] 2 gram TOPICAL QID PRN 04/06/20 04/06/20 Meclizine [Antivert] 12.5 mg PO TID PRN 04/06/20 04/06/20 Metoprolol Succinate (ER) [Toprol 50 mg PO HS 04/06/20 04/06/20 XL] Nitroglycerin Sl Tabs [Nitrostat] 0.4 mg SL Q5M PRN 04/06/20 04/06/20 Pantoprazole Sodium [Protonix] 40 mg PO DAILY 04/06/20 04/06/20 Vitamin B Complex 1 cap PO DAILY 04/06/20 04/06/20 Vitamin C Gummy(Unknown Dose) 1 tab PO DAILY 04/06/20 04/06/20 Previous Rx's Medication Instructions Recorded Cariprazine HCl [Vraylar] 1.5 mg PO DAILY #0 04/07/20 Clopidogrel [Plavix] 75 mg PO DAILY #30 tab 04/07/20 Gabapentin [Neurontin] 300 mg PO BID cap 04/07/20 Allergies Allergy/AdvReac Type Severity Reaction Status Date / Time grass pollen Allergy Unknown Verified 05/12/20 21:07 latex Allergy Rash/Hives Verified 05/12/20 21:07 Sulfa (Sulfonamide Allergy Rash/Hives/ Verified 05/12/20 21:07 Antibiotics) Swelling venom-honey bee Allergy Anaphylaxis Verified 05/12/20 21:07 morphine AdvReac Decreased Verified 05/12/20 21:07 Blood Pressure prochlorperazine edisylate AdvReac Vomiting Verified 05/12/20 21:07 [From Compazine] Review of Systems ROS Other: All systems not noted in ROS Statement are negative. <Guerrero Fontenot - Last Filed: 05/12/20 23:08> ROS Other: All systems not noted in ROS Statement are negative. <Shu Antony - Last Filed: 05/12/20 23:45> ROS Statement: Those systems with pertinent positive or pertinent negative responses have been documented in the HPI. Past Medical History Past Medical History: Coronary Artery Disease (CAD), Cancer, COPD, CVA/TIA, Diabetes Mellitus, Deep Vein Thrombosis (DVT), Eye Disorder, GERD/Reflux, Hearing Disorder / Deafness, Hyperlipidemia, Hypertension, Myocardial Infarction (SD), Renal Disease, Rheumatoid Arthritis (RA), Sleep Apnea/CPAP/BIPAP, Syncope, Thyroid Disorder Additional Past Medical History / Comment(s): 09/16/16 with SBO with surgery/possible septic emboli with cavitary lesions bilateral lungs. 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 coli 2015 requiring PICC line insertion for IV antibiotics, restless leg syndrome, peripheral neropathy. Hx bilateral glaucoma, hx syncope r/t low blood sugars. No CPAP use. SD- December 2019 Last Myocardial Infarction Date:: 2012 History of Any Multi-Drug Resistant Organisms: ESBL, MRSA, VRE Date of last positivie culture/infection: 05/07/16 ESBL, 05/15/16 VRE, MRSA 09/2017 - upper lip MDRO Source:: URINE E.COLI, EC GALLINARUM Past Surgical History: Appendectomy, Bowel Resection, Section, Heart Catheterization With Stent, Hernia Repair Additional Past Surgical History / Comment(s): 09/30 exploratory laparotomy, lysis of adhesions bowel resection d/t obstruction. Hx: repair incarcerated incisional hernia with abdominal washout, thyroidectomy(non functioning), heart cath 06/28 - 100% occluded, unable to stent, partial nephrectomy for left kidney renal cell carcinoma, PICC line insertion (since removed), colonoscopy, bilater al cataract removal with lens implants, 2 Sections. Past Anesthesia/Blood Transfusion Reactions: No Reported Reaction Date of Last Stent Placement:: 04/06/2020 Past Psychological History: Anxiety, Depression Smoking Status: Current some day smoker Past Alcohol Use History: None Reported Past Drug Use History: Cocaine, Marijuana - Past Family History Sister(s) Family Medical History: Cancer, Sleep Apnea/CPAP/BIPAP Additional Family Medical History / Comment(s): Patient has one sister that from liver cancer, borderline DM, PAD, hep. c. Brother(s) Family Medical History: Cancer, Coronary Artery Disease (CAD), Deep Vein Thrombosis (DVT), Hyperlipidemia Additional Family Medical History / Comment(s): Patient has 1 brother with past ETOH, past drug abuse, DVT's. She has a second brother that has from throat cancer. Daughter(s) Family Medical History: Diabetes Mellitus, Myocardial Infarction (SD) Additional Family Medical History / Comment(s): Daughter at 23 yrs old from massive SD. Father Family Medical History: Myocardial Infarction (SD) Additional Family Medical History / Comment(s): from mi at age 44 Mother Family Medical History: Cancer Additional Family Medical History / Comment(s): maeve breasts removed d/t cancer, hysterectomy d/t cancer. Mother from metastatic breast cancer. <Shu Antony M - Last Filed: 05/12/20 23:45> General Exam General appearance: alert, in no apparent distress, other (This is a well-dev eloped, well-nourished adult female patient in no acute distress. Vital signs upon presentation are temperature 97.9F, pulse 81, respirations 18, blood pressure 111/78, pulse ox 100% on room air.) Eye exam: Present: normal appearance, PERRL, EOMI. Absent: scleral icterus, conjunctival injection, periorbital swelling ENT exam: Present: normal exam, normal oropharynx, mucous membranes moist Respiratory exam: Present: normal lung sounds bilaterally. Absent: respiratory distress, wheezes, rales, rhonchi, stridor Cardiovascular Exam: Present: regular rate, normal rhythm, normal heart sounds. Absent: systolic murmur, diastolic murmur, rubs, gallop, clicks GI/Abdominal exam: Present: soft, normal bowel sounds. Absent: distended, tenderness, guarding, rebound, rigid Neurological exam: Present: alert, oriented X3, CN II-XII intact Psychiatric exam: Present: normal affect, normal mood Skin exam: Present: warm, dry, intact, normal color. Absent: rash <Shu Antony M - Last Filed: 05/12/20 23:45> Course Vital Signs 05/12/20 21:05 Temperature 97.9 F Pulse Rate 81 Respiratory 18 Rate Blood Pressure 111/78 O2 Sat by Pulse 100 Oximetry EKG Findings - EKG Comments: EKG Findings:: EKG obtained at 2113 shows normal sinus rhythm with ventricular 79, para interval 144, QRS duration 84, QT 346, QTC 396. There are some borderline elevation in V1, V2, V3, and depression and V6 questionable V5. These are not significantly changed from previous EKG at 04/07/2020. <Shu Antony - Last Filed: 05/12/20 23:45> Medical Decision Making - Lab Data Result diagrams: 05/12/20 21:45 05/12/20 21:45 <Guerrero Fontenot - Last Filed: 05/12/20 23:08> - Lab Data Result diagrams: 05/12/20 21:45 05/12/20 21:45 - Radiology Data Radiology results: report reviewed, image reviewed <Shu Antony - Last Filed: 05/12/20 23:45> - Medical Decision Making I saw this patient in conjunction with the nurse practitioner. I performed independent history and physical exam. Agree with case management. (Guerrero Fontenot) 60-year-old female patient presented to the emergency department today for evaluation of chest pain and nausea that started approximately 2 hours prior to arrival while dancing. Physical examination reveals clear equal lung sounds. Abdomen soft and nontender. EKG did show some mild elevation and depressions however this is consistent with her previous EKG from March of this year. Labs reviewed and revealed normal troponin. Patient did have glucose of 931, sodium 119, potassium 5.9, mild kidney injury at the BUN at 30, creatinine 1.17. Patient did admit to not having her insulin pump on for the last two days. We will give IV fluids and insulin. Patient will be admitted or serial trop and cardiology consultation. (Shu Antony) - Lab Data Lab Results 05/12/20 05/12/20 05/12/20 Range/Units 21:45 21:45 21:45 WBC 7.0 (3.8-10.6) k/uL RBC 4.54 (3.80-5.40) m/uL Hgb 13.4 (11.4-16.0) gm/dL Hct 42.0 (34.0-46.0) % MCV 92.6 (80.0-100.0) fL MCH 29.5 (25.0-35.0) pg MCHC 31.9 (31.0-37.0) g/dL RDW 13.8 (11.5-15.5) % Plt Count 230 (150-450) k/uL MPV 7.7 Neutrophils % 68 % Lymphocytes % 25 % Monocytes % 4 % Eosinophils % 2 % Basophils % 1 % Neutrophils # 4.8 (1.3-7.7) k/uL Lymphocytes # 1.7 (1.0-4.8) k/uL Monocytes # 0.3 (0-1.0) k/uL Eosinophils # 0.1 (0-0.7) k/uL Basophils # 0.0 (0-0.2) k/uL Sodium 119 L* (137-145) mmol/L Potassium 5.9 H (3.5-5.1) mmol/L Chloride 87 L (98-107) mmol/L Carbon Dioxide 19 L (22-30) mmol/L Anion Gap 13 mmol/L BUN 30 H (7-17) mg/dL Creatinine 1.17 H (0.52-1.04) mg/dL Est GFR (CKD-EPI)AfAm 59 (>60 ml/min/1.73 sqM) Est GFR (CKD-EPI)NonAf 51 (>60 ml/min/1.73 sqM) Glucose 931 H* (74-99) mg/dL POC Glucose (mg/dL) (75-99) mg/dL POC Glu Nurse Rn Bsn ID Calcium 9.7 (8.4-10.2) mg/dL Magnesium 2.0 (1.6-2.3) mg/dL Total Bilirubin 0.4 (0.2-1.3) mg/dL AST 21 (14-36) U/L ALT 13 (4-34) U/L Alkaline Phosphatase 151 H (38-126) U/L Troponin I <0.012 (0.000-0.034) ng/mL Total Protein 7.1 (6.3-8.2) g/dL Albumin 4.2 (3.5-5.0) g/dL Lipase 99 (23-300) U/L Acetone, Qual (Negative) 05/12/20 05/12/20 Range/Units 21:45 22:43 WBC (3.8-10.6) k/uL RBC (3.80-5.40) m/uL Hgb (11.4-16.0) gm/dL Hct (34.0-46.0) % MCV (80.0-100.0) fL MCH (25.0-35.0) pg MCHC (31.0-37.0) g/dL RDW (11.5-15.5) % Plt Count (150-450) k/uL MPV Neutrophils % % Lymphocytes % % Monocytes % % Eosinophils % % Basophils % % Neutrophils # (1.3-7.7) k/uL Lymphocytes # (1.0-4.8) k/uL Monocytes # (0-1.0) k/uL Eosinophils # (0-0.7) k/uL Basophils # (0-0.2) k/uL Sodium (137-145) mmol/L Potassium (3.5-5.1) mmol/L Chloride (98-107) mmol/L Carbon Dioxide (22-30) mmol/L Anion Gap mmol/L BUN (7-17) mg/dL Creatinine (0.52-1.04) mg/dL Est GFR (CKD-EPI)AfAm (>60 ml/min/1.73 sqM) Est GFR (CKD-EPI)NonAf (>60 ml/min/1.73 sqM) Glucose (74-99) mg/dL POC Glucose (mg/dL) >600 H (75-99) mg/dL POC Glu Nurse Rn Bsn ID Ligia Patel Calcium (8.4-10.2) mg/dL Magnesium (1.6-2.3) mg/dL Total Bilirubin (0.2-1.3) mg/dL AST (14-36) U/L ALT (4-34) U/L Alkaline Phosphatase (38-126) U/L Troponin I (0.000-0.034) ng/mL Total Protein (6.3-8.2) g/dL Albumin (3.5-5.0) g/dL Lipase (23-300) U/L Acetone, Qual Positive (Negative) - Radiology Data Two-view x-ray of the chest is obtained. Report is reviewed in its entirety. Impression by Dr. Braxton shows no active cardiopulmonary disease. There is clearing of some and lateral atelectasis left lower lobe compared to old exam. Normal heart. (Shu Antony) Disposition <Guerrero Fontenot - Last Filed: 05/12/20 23:08> Decision to Admit Reason: Admit from EC Decision Date: 05/12/20 Decision Time: 23:17 <Shu Antony - Last Filed: 05/12/20 23:45> Clinical Impression: Chest pain, Hyperglycemia Disposition: ADMITTED IP TO THIS [facility] Condition: Serious
[2020-05-12 21:54] LABS: Basophils % (A) 1 %; Eosinophils # (A) 0.1 k/uL (0-0.7); Eosinophils % (A) 2 %; HGB 13.4 gm/dL (11.4-16.0); Lymphocytes # (A) 1.7 k/uL (1.0-4.8); Lymphocytes % (A) 25 %; MCH 29.5 pg (25.0-35.0); MCHC 31.9 g/dL (31.0-37.0); MCV 92.6 fL (80.0-100.0); Mean Platelet Volume 7.7; Monocytes # (A) 0.3 k/uL (0-1.0); Monocytes % (A) 4 %; Neutrophils # (A) 4.8 k/uL (1.3-7.7); Neutrophils % (A) 68 %; Platelet Count 230 k/uL (150-450); RBC 4.54 m/uL (3.80-5.40); RDW 13.8 % (11.5-15.5)
--- NOTE | 2020-05-12 22:14 | XR ---
EXAMINATION TYPE: XR chest 2V DATE OF EXAM: 05/12/2020 COMPARISON: 05/05/2019 HISTORY: Short of breath. Chest pain. TECHNIQUE: FINDINGS: There is calcified 1 cm granuloma left lower lobe. Heart is normal. There are no hilar mass es. Mediastinum is normal. There is no pleural effusion. There are chest leads. IMPRESSION: No active cardiopulmonary disease. There is clearing of some minimal atelectasis left low er lobe compared to old exam. Normal heart.
[2020-05-12 22:21] LABS: Albumin 4.2 g/dL (3.5-5.0); Calcium 9.7 mg/dL (8.4-10.2); Potassium 5.9 mmol/L (3.5-5.1); Total Bilirubin 0.4 mg/dL (0.2-1.3); Total Protein 7.1 g/dL (6.3-8.2)
[2020-05-12 22:54] LABS: Glucose,Whole Blood >600 mg/dL (75-99)
[2020-05-12] MEDS ORDERED: SODIUM CHLORIDE 0.9% 1,000 ML IV ONE (22:58)
[2020-05-12] MEDS ORDERED: INSULIN REGULAR 100 UNIT/ML VIAL IV STA (22:59)
[2020-05-12] MEDS ORDERED: NITROGLYCERIN SL TABS 0.4 MG TAB SUBLINGUAL PRN (23:14)
[2020-05-12 23:30] LABS: Glucose,Whole Blood >600 mg/dL (75-99)
[2020-05-12 23:56] LABS: Glucose,Whole Blood >600 mg/dL (75-99)
[2020-05-13] MEDS ORDERED: INSULIN REGULAR 100 UNIT/ML VIAL IV STA (00:25)
[2020-05-13 00:52] LABS: INR 0.9 (<1.2); Partial Thromboplastin Time 22.1 sec (22.0-30.0); Prothrombin Time 9.4 sec (9.0-12.0)
[2020-05-13 01:45] LABS: Glucose,Whole Blood 485 mg/dL (75-99)
[2020-05-13] MEDS ORDERED: INSULIN REGULAR 100 UNIT/ML VIAL SQ STA (02:22)
[2020-05-13 04:18] LABS: Glucose,Whole Blood 479 mg/dL (75-99)
[2020-05-13] MEDS ORDERED: SODIUM CHLORIDE 0.9% 1,000 ML IV ONE (04:47)
[2020-05-13 06:31] LABS: Cholesterol 176 mg/dL (<200); HDL Cholesterol 45 mg/dL (40-60); LDL Cholesterol,Calculated 60 mg/dL (0-99); Triglycerides 357 mg/dL (<150)
[2020-05-13 06:34] LABS: Glucose,Whole Blood 369 mg/dL (75-99)
[2020-05-13] MEDS: CLOPIDOGREL 75 MG TAB PO SCH (08:05)
[2020-05-13] MEDS: METOPROLOL TARTRATE 25 MG TAB PO SCH ×2 (08:08→22:06)
[2020-05-13] MEDS ORDERED: ASPIRIN 325 MG TAB PO SCH (09:00)
[2020-05-13] MEDS ORDERED: ASPIRIN 81 MG PO SCH (09:00)
[2020-05-13 09:58] LABS: Glucose,Whole Blood 432 mg/dL (75-99)
[2020-05-13] MEDS: INSULIN ASPART (NovoLOG) 100 UNIT/ML VIAL SQ SCH ×4 (10:01→22:04)
[2020-05-13] MEDS ORDERED: NITROGLYCERIN SL TABS 0.4 MG TAB SUBLINGUAL PRN (11:02)
[2020-05-13] MEDS ORDERED: MECLIZINE 12.5 MG TAB PO PRN (11:02)
[2020-05-13] MEDS ORDERED: ALBUTEROL NEBULIZED 2.5 MG/3 ML INHALATION PRN ×2 (11:02)
[2020-05-13] MEDS ORDERED: DICLOFENAC SODIUM GEL 100 GM TUBE TOPICAL PRN (11:02)
[2020-05-13] MEDS ORDERED: VENLAFAXINE HCL 75 MG TAB PO SCH (11:15)
[2020-05-13] MEDS ORDERED: SODIUM POLYSTYRENE SULFONATE 15 GM/60 ML BOTTLE PO ONE (11:30)
[2020-05-13 11:47] LABS: Glucose,Whole Blood 463 mg/dL (75-99)
[2020-05-13] MEDS: NON FORMULARY DRUG (Cariprazine Hcl [Vraylar] 1.5 MG Capsule) PO SCH (12:24)
[2020-05-13] MEDS: INSULIN DETEMIR (LEVEMIR) 100 UNIT/ML SYR SQ SCH (12:24)
[2020-05-13] MEDS: PIOGLITAZONE 15 MG TAB PO SCH (12:25)
[2020-05-13] MEDS: VENLAFAXINE HCL ER 75 MG CAP PO SCH (12:25)
[2020-05-13] MEDS ORDERED: INSULIN ASPART (NovoLOG) 100 UNIT/ML VIAL SQ SCH ×2 (12:30→17:30)
[2020-05-13] MEDS: ISOSORBIDE MONONITRATE ER 60 MG TAB.ER.24H PO SCH (12:32)
[2020-05-13] MEDS: LORATADINE 10 MG TAB PO SCH (12:32)
[2020-05-13] MEDS: CYANOCOBALAMIN 500 MCG TAB PO SCH (12:33)
[2020-05-13] MEDS: PANTOPRAZOLE 40 MG TABLET PO SCH (12:33)
[2020-05-13] MEDS: LEVOTHYROXINE 75 MCG TAB PO SCH (12:33)
--- NOTE | 2020-05-13 12:59 | P.CRDCN ---
History of Present Illness Consult date: 05/13/20 History of present illness: CHIEF COMPLAINT: Chest pain HISTORY OF PRESENT ILLNESS: This is a 60 -year old female with a past medical history significant for diabetes, hypertension, hyperlipidemia, COPD, and coronary artery disease. Patient follows in the office with Dr. Sierra. We have been asked to see the patient in consultation for chest pain. It is noted the patient recently had a stent placement to the LAD on 04/06/2020. Patient reports she has been taking her aspirin and Plavix as prescribed. Patient states she began having some discomfort in her chest yesterday. She states the pain radiated down her arm and into her jaw. She states this pain was different than the pain she experienced when she required a stent. At the time of examination this morning the patient denies any chest pain or pressure. She denies shortness of breath. Patient was found to be hyperglycemic as well. She states she ran out of her insulin at home. DIAGNOSTICS: EKG reveals sinus rhythm with no new signs of ischemia Chest xray no active cardiac coronary disease. There is clearing of some minimal atelectasis left lower lobe compared to old exam. Laboratory data: WBC 7.0. Hemoglobin 13.4. Platelet count 230. Sodium 119. Potassium 5.9. BUN 30. Creatinine 1.17. Glucose 930. Troponin negative 3 Current home cardiac medications include Aldactone 25 mg daily, metoprolol 25 mg daily, Imdur 69 g daily, Plavix 35 mg daily, Lipitor 80 mg daily, and aspirin 81 mg daily REVIEW OF SYSTEMS: At the time of my exam: CONSTITUTIONAL: Denies fever or chills. HEENT: Denies blurred vision, vision changes, or eye pain. Denies hemoptysis CARDIOVASCULAR: Denies chest pain, orthopnea, PND or palpitations RESPIRATORY: No shortness of breath. GASTROINTESTINAL: Denies abdominal pain. Denies nausea or vomiting. HEMATOLOGIC: Denies bleeding disorders. GENITOURINARY: Denies any blood in urine. SKIN: Denies pruitis. Denies rash. PHYSICAL EXAM: VITAL SIGNS: Reviewed. GENERAL: Well-developed in no acute distress. HEENT: Head is normocephalic. Pupils are equal, round. Sclerae anicteric. Mucous membranes of the mouth are moist. Neck supple. No JVD or thyromegaly LUNGS: Respirations even and unlabored. Lungs essentially clear to auscultation bilaterally. HEART: Regular rate and rhythm. S1 and S2 heard. ABDOMEN: Soft. Nondistended. Nontender. EXTREMITIES: Normal range of motion. No clubbing or cyanosis. Peripheral pulses intact. No lower extremity edema NEUROLOGIC: Awake and alert. Oriented x 3. ASSESSMENT: Chest pain, troponins negative 3, no evidence of acute coronary syndrome Coronary artery disease with recent stent placement to the LAD, 04/06/2020 Hyperglycemia, secondary to patient running out of her insulin Diabetes mellitus Hypertension Hyperlipidemia COPD Hypothyroidism PLAN: An acute coronary event has been ruled out Decrease aspirin to 81 mg daily Patient had a recent echocardiogram at [facility]. Will obtain report. Resume home cardiac medications Further recommendations pending patient's course Nurse practitioner note has been reviewed by physician. Signing provider agrees with the documented findings, assessment, and plan of care. Past Medical History Past Medical History: Coronary Artery Disease (CAD), Cancer, COPD, CVA/TIA, Diabetes Mellitus, Deep Vein Thrombosis (DVT), Eye Disorder, GERD/Reflux, Hearing Disorder / Deafness, Hyperlipidemia, Hypertension, Myocardial Infarction (MT), Renal Disease, Rheumatoid Arthritis (RA), Sleep Apnea/CPAP/BIPAP, Syncope, Thyroid Disorder Additional Past Medical History / Comment(s): 09/16/16 with SBO with surgery/possible septic emboli with cavitary lesions bilateral lungs. 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 coli 2015 requiring P ICC line insertion for IV antibiotics, restless leg syndrome, peripheral neropathy. Hx bilateral glaucoma, hx syncope r/t low blood sugars. No CPAP use. MT- December 2019 Last Myocardial Infarction Date:: 2019 History of Any Multi-Drug Resistant Organisms: ESBL, MRSA, VRE Date of last positivie culture/infection: 05/07/16 ESBL, 05/15/16 VRE, MRSA 09/2017 - upper lip MDRO Source:: URINE E.COLI, EC GALLINARUM Past Surgical History: Appendectomy, Bowel Resection, Section, Heart Catheterization With Stent, Hernia Repair Additional Past Surgical History / Comment(s): 09/30 exploratory laparotomy, lysis of adhesions bowel resection d/t obstruction. Hx: repair incarcerated incisional hernia with abdominal washout, thyroidectomy(non functioning), heart cath 06/28 - 100% occluded, unable to stent, partial nephrectomy for left kidney renal cell carcinoma, PICC line insertion (since removed), colonoscopy, bilateral cataract removal with lens implants, 2 Sections.Stent placed 03/2020 Past Anesthesia/Blood Transfusion Reactions: No Reported Reaction Date of Last Stent Placement:: 04/06/2020 Smoking Status: Former smoker - Past Family History Sister(s) Family Medical History: Cancer, Sleep Apnea/CPAP/BIPAP Additional Family Medical History / Comment(s): Patient has one sister that from liver cancer, borderline DM, PAD, hep. c. Brother(s) Family Medical History: Cancer, Coronary Artery Disease (CAD), Deep Vein Thrombosis (DVT), Hyperlipidemia Additional Family Medical History / Comment(s): Patient has 1 brother with past ETOH, past drug abuse, DVT's. She has a second brother that has from throat cancer. Daughter(s) Family Medical History: Diabetes Mellitus, Myocardial Infarction (MT) Additional Family Medical History / Comment(s): Daughter at 23 yrs old from massive MT. Father Family Medical History: Myocardial Infarction (MT) Additional Family Medical History / Comment(s): from mi at age 44 Mother Family Medical History: Cancer Additional Family Medical History / Comment(s): maeve breasts removed d/t cancer, hysterectomy d/t cancer. Mother from metastatic breast cancer. Medications and Allergies Home Medications Medication Instructions Recorded Confirmed Type Venlafaxine HCl [Venlafaxine HCl 225 mg PO DAILY 10/21/16 05/13/20 History ER] Albuterol Sulfate [Proair Hfa] 2 puff INHALATION RT-Q6H PRN 03/29/19 05/13/20 History Cyclobenzaprine [Flexeril] 5 mg PO BID PRN 03/29/19 05/13/20 History Insulin Lispro [Admelog] 0.01 unit SQ-PUMP CONTINUOUS 03/29/19 05/13/20 History Loratadine [Claritin] 10 mg PO DAILY 03/29/19 05/13/20 History Albuterol Nebulized [Ventolin 2.5 mg INHALATION RT-QID PRN 12/23/19 05/13/20 History Nebulized] Aspirin 81 mg PO DAILY 12/23/19 05/13/20 History Atorvastatin [Lipitor] 80 mg PO HS 12/23/19 05/13/20 History Beclomethasone Dip 80 Mcg/Puff 2 puff INHALATION RT-BID 12/23/19 05/13/20 History [Qvar 80 mcg] Levothyroxine Sodium [Synthroid] 150 mcg PO DAILY 12/23/19 05/13/20 History Pioglitazone [Actos] 15 mg PO DAILY 12/23/19 05/13/20 History Topiramate [Topamax] 50 mg PO HS 12/23/19 05/13/20 History Diclofenac Sodium [Voltaren Gel] 2 gram TOPICAL QID PRN 04/06/20 05/13/20 H istory Meclizine [Antivert] 12.5 mg PO TID PRN 04/06/20 05/13/20 History Nitroglycerin Sl Tabs [Nitrostat] 0.4 mg SL Q5M PRN 04/06/20 05/13/20 History Pantoprazole Sodium [Protonix] 40 mg PO DAILY 04/06/20 05/13/20 History Clopidogrel [Plavix] 75 mg PO DAILY #30 tab 04/07/20 05/13/20 Rx Gabapentin [Neurontin] 300 mg PO BID cap 04/07/20 05/13/20 Rx Ascorbic Acid [Vitamin C] 1,000 mg PO DAILY 05/13/20 05/13/20 History Cariprazine HCl [Vraylar] 1.5 mg PO DAILY 05/13/20 05/13/20 History Cyanocobalamin (Vitamin B-12) 1,000 mcg PO DAILY 05/13/20 05/13/20 History [Vitamin B-12] Isosorbide Mononitrate ER [Imdur] 60 mg PO DAILY 05/13/20 05/13/20 History Metoprolol Tartrate [Lopressor] 25 mg PO DAILY 05/13/20 05/13/20 History Multivitamins, Thera [Multivitamin 1 tab PO DAILY 05/13/20 05/13/20 History (formulary)] Spironolactone [Aldactone] 25 mg PO DAILY 05/13/20 05/13/20 History Allergies Allergy/AdvReac Type Severity Reaction Status Date / Time grass pollen Allergy Unknown Verified 05/12/20 21:07 latex Allergy Rash/Hives Verified 05/12/20 21:07 Sulfa (Sulfonamide Allergy Rash/Hives/ Verified 05/12/20 21:07 Antibiotics) Swelling venom-honey bee Allergy Anaphylaxis Verified 05/12/20 21:07 morphine AdvReac Decreased Verified 05/12/20 21:07 Blood Pressure prochlorperazine edisylate AdvReac Vomiting Verified 05/12/20 21:07 [From Compazine] Physical Exam Vitals: Vital Signs Temp Pulse Pulse Resp BP BP BP 05/13/20 12:35 97.1 F L 73 18 117/74 05/13/20 10:28 76 18 109/70 05/13/20 08:00 97.7 F 87 18 109/70 05/13/20 02:00 85 20 116/78 05/13/20 01:00 92 19 116/78 05/12/20 22:00 124/79 05/12/20 21:25 82 20 115/101 05/12/20 21:05 97.9 F 81 18 111/78 Pulse Ox 05/13/20 12:35 99 05/13/20 10:28 94 L 05/13/20 08:00 100 05/13/20 02:00 98 05/13/20 01:00 99 05/12/20 22:00 05/12/20 21:25 99 05/12/20 21:05 100 Intake and Output 05/12/20 05/13/20 05/13/20 22:59 06:59 14:59 Other: Voiding Method Toilet Weight 77.111 kg 77.111 kg Results 05/12/20 21:45 05/12/20 21:45 Cardiac Enzymes 05/12/20 05/12/20 05/13/20 Range/Units 21:45 21:45 00:00 AST 21 (14-36) U/L Troponin I <0.012 <0.012 (0.000-0.034) ng/mL 05/13/20 Range/Units 01:34 AST (14-36) U/L Troponin I <0.012 (0.000-0.034) ng/mL Coagulation 05/13/20 Range/Units 00:00 PT 9.4 (9.0-12.0) sec APTT 22.1 (22.0-30.0) sec Lipids 05/13/20 Range/Units 05:45 Triglycerides 357 H (<150) mg/dL Cholesterol 176 (<200) mg/dL HDL Cholesterol 45 (40-60) mg/dL CBC 05/12/20 Range/Units 21:45 WBC 7.0 (3.8-10.6) k/uL RBC 4.54 (3.80-5.40) m/uL Hgb 13.4 (11.4-16.0) gm/dL Hct 42.0 (34.0-46.0) % Plt Count 230 (150-450) k/uL Comprehensive Metabolic Panel 05/12/20 Range/Units 21:45 Sodium 119 L* (137-145) mmol/L Potassium 5.9 H (3.5-5.1) mmol/L Chloride 87 L (98-107) mmol/L Carbon Dioxide 19 L (22-30) mmol/L BUN 30 H (7-17) mg/dL Creatinine 1.17 H (0.52-1.04) mg/dL Glucose 931 H* (74-99) mg/dL Calcium 9.7 (8.4-10.2) mg/dL AST 21 (14-36) U/L ALT 13 (4-34) U/L Alkaline Phosphatase 151 H (38-126) U/L Total Protein 7.1 (6.3-8.2) g/dL Albumin 4.2 (3.5-5.0) g/dL Current Medications Generic Name Dose Route Start Last Admin Trade Name Freq PRN Reason Stop Dose Admin Albuterol Sulfate 2.5 mg 05/13/20 11:02 Albuterol Nebulized 2.5 Mg/3 Ml INHALATION RT-QID PRN Wheezing Albuterol Sulfate 2.5 mg 05/13/20 11:02 Albuterol Nebulized 2.5 Mg/3 Ml INHALATION RT-Q6H PRN Shortness Of Breath Ascorbic Acid 1,000 mg 05/14/20 09:00 Ascorbic Acid 500 Mg Tab PO DAILY [facility] Aspirin 81 mg 05/14/20 09:00 Aspirin 81 Mg PO DAILY [facility] Atorvastatin Calcium 80 mg 05/13/20 21:00 Atorvastatin 80 Mg Tab PO HS [facility] Clopidogrel Bisulfate 75 mg 05/13/20 09:00 05/13/20 08:05 Clopidogrel 75 Mg Tab PO 75 mg DAILY [facility] Administration Cyanocobalamin 1,000 mcg 05/13/20 11:15 05/13/20 12:33 Cyanocobalamin 500 Mcg Tab PO 1,000 mcg DAILY [facility] Administration Diclofenac Sodium 2 gm 05/13/20 11:02 Diclofenac Sodium Gel 100 Gm Tube TOPICAL QID PRN Chest Wall Pain Fluticasone Propionate 2 puff 05/13/20 20:00 Fluticasone 110 Mcg Inhaler INHALATION RT-BID [facility] Gabapentin 300 mg 05/13/20 11:15 Gabapentin 300 Mg Cap PO BID [facility] Insulin Aspart 0 unit 05/13/20 07:30 05/13/20 12:18 Insulin Aspart (Novolog) 100 Unit/Ml Vial SQ 8 unit ACHS [facility] Administration Protocol Insulin Aspart 5 unit 05/13/20 12:30 05/13/20 12:18 Insulin Aspart (Novolog) 100 Unit/Ml Vial SQ 5 unit AC-TID [facility] Administration Insulin Detemir 30 unit 05/13/20 12:30 05/13/20 12:24 Insulin Detemir (Levemir) 100 Unit/Ml Syr SQ 30 unit DAILY@0700 [facility] Administration Isosorbide Mononitrate 60 mg 05/13/20 11:15 05/13/20 12:32 Isosorbide Mononitrate Er 60 Mg Tab.Er.24h PO 60 mg DAILY [facility] Administration Levothyroxine Sodium 150 mcg 05/13/20 11:15 05/13/20 12:33 Levothyroxine 75 Mcg Tab PO 150 mcg 0630 [facility] Administration Loratadine 10 mg 05/13/20 11:15 05/13/20 12:32 Loratadine 10 Mg Tab PO 10 mg DAILY [facility] Administration Meclizine HCl 12.5 mg 05/13/20 11:02 Meclizine 12.5 Mg Tab PO TID PRN dizziness Metoprolol Tartrate 25 mg 05/13/20 09:00 05/13/20 08:08 Metoprolol Tartrate 25 Mg Tab PO 25 mg BID [facility] Administration Multivitamins 1 each 05/13/20 11:15 Multivitamins, Thera 1 Each Tab PO DAILY [facility] Nitroglycerin 0.4 mg 05/12/20 23:14 Nitroglycerin Sl Tabs 0.4 Mg Tab SUBLINGUAL Q5M PRN Chest Pain Nitroglycerin 0.4 mg 05/13/20 11:02 Nitroglycerin Sl Tabs 0.4 Mg Tab SUBLINGUAL Q5M PRN Chest Pain Non-Formulary Medication 1.5 mg 05/13/20 11:15 05/13/20 12:24 Cariprazine Hcl [Vraylar] PO Not Given DAILY [facility] Pantoprazole Sodium 40 mg 05/13/20 11:15 05/13/20 12:33 Pantoprazole 40 Mg Tablet PO 40 mg DAILY [facility] Administration Pioglitazone HCl 15 mg 05/13/20 11:15 05/13/20 12:25 Pioglitazone 15 Mg Tab PO 15 mg DAILY [facility] Administration Topiramate 50 mg 05/13/20 21:00 Topiramate 25 Mg Tab PO HS [facility] Venlafaxine HCl 225 mg 05/13/20 11:15 05/13/20 12:25 Venlafaxine Hcl Er 75 Mg Cap PO 225 mg DAILY [facility] Administration Intake and Output 05/12/20 05/13/20 05/13/20 22:59 06:59 14:59 Other: Voiding Method Toilet Weight 77.111 kg 77.111 kg Patient Weight 05/14/20 06:59 Weight 77.111 kg 05/12/20 21:45 05/12/20 21:45
[2020-05-13 14:12] LABS: Glucose,Whole Blood 333 mg/dL (75-99)
[2020-05-13 15:30] LABS: ALT 11 U/L (4-34); AST 20 U/L (14-36); African American GFR (CKD) 72 (>60 ml/min/1.73 sqM); Albumin 3.7 g/dL (3.5-5.0); Alkaline Phosphatase 120 U/L (38-126); Anion Gap 9 mmol/L; Blood Urea Nitrogen 30 mg/dL (7-17); Calcium 9.2 mg/dL (8.4-10.2); Carbon Dioxide 19 mmol/L (22-30); Chloride 103 mmol/L (98-107); Glucose 390 mg/dL (74-99); Non-African American GFR(CKD) 62 (>60 ml/min/1.73 sqM); Potassium 4.1 mmol/L (3.5-5.1); Sodium 131 mmol/L (137-145); Total Bilirubin 0.3 mg/dL (0.2-1.3); Total Protein 6.5 g/dL (6.3-8.2)
[2020-05-13 16:19] VITALS: TEMP 98
[2020-05-13] MEDS: MULTIVITAMINS, THERA 1 EACH TAB PO SCH (16:20)
[2020-05-13] MEDS: GABAPENTIN 300 MG CAP PO SCH ×2 (16:20→22:06)
[2020-05-13 16:43] LABS: Glucose,Whole Blood 246 mg/dL (75-99)
--- NOTE | 2020-05-13 18:56 | P.HPIM ---
History of Present Illness H&P Date: 05/13/20 1-year-old female one of Dr. hung's patient with past medical history of CAD, COPD, type 2 diabetes and chronic kidney disease with history of noncompliance with insulin come, we've known her multiple times from the previous admission secondary to hyperglycemia, and chest pain. She was last hospitalized 04/06/2020, from a non-STEMI diagnosis of [facility] that time, and transferred to [facility]. She required an angioplasty and stent to proximal LAD, with Dr. Kurtz she is now on multiple medications for her cardiac disease, however in the emergency room, she was found to have blood sugars of over 900, patient complaining of chest pain dizziness, as her sugars were over 9 00. Apparently patient has multiple problems requiring admissions for hyperglycemia, either her insulin medication is running out, or her safety needle or her insulin pump reservoir your is running out, and this time she mentioned that she has ran out of the reservoir, she hasn't used any insulin for the past 48 hours, as she feels that the insulin needle is uncomfortable. She follows with Dr. Maryuri franks. We started her on insulin drip in the emergency room, and transition to pre-meal basal bolus, Levemir tonight at 30 mg 1 dose, with subsequent insulin pump Would be restarted tomorrow at 7:00. H&P was seen by cardiology for which they felt that it is a noncardiac cause pain she does also have pre-existing costochondritis and osteoporosis. She denies any cough no fever. Patient was in the emergency room for this visit, until a bed is available in the [facility] unit. In the emergency room, In the emergency room, sodium was 119, CO2 of 19, creatinine of 1.17, glucose of 131, WBC count normal, sodium currently at 131, potassium of 4.1, pCO2 of 19, lipase normal 99, triglyceride elevated at 357, LDL of 60. Serum acetone was positive on admission, which has cleared on today's examination. Review of Systems Constitutional: Reports as per HPI, Reports fatigue, Reports malaise, Denies anorexia, Denies chills, Denies chronic headaches, Denies chronic pain, Denies daytime sleepiness, Denies fever, Denies lethargy, Denies night sweats, Denies poor appetite, Denies sweats, Denies weakness, Denies weight gain, Denies weight loss Ears, nose, mouth and throat: Reports as per HPI Breasts: Reports as per HPI Cardiovascular: Reports as per HPI, Reports chest pain Respiratory: Reports as per HPI Gastrointestinal: Reports as per HPI, Denies abdominal pain, Denies belching, Denies bloating, Denies BRBPR, Denies change in bowel habits, Denies coffee ground emesis, Denies constipation, Denies diarrhea, Denies dyspepsia, Denies early satiety, Denies excessive gas, Denies heartburn, Denies hematemesis, Denies hematochezia, Denies indigestion, Denies jaundice, Denies lactose intolerance, Denies loss of appetite, Denies melena, Denies nausea, Denies vomiting Genitourinary: Reports as per HPI Menstruation: Reports as per HPI Musculoskeletal: Reports as per HPI, Denies arm numbness/tingling, Denies atrophy, Denies fractures, Denies frequent falls, Denies gait dysfunction, Denies hot joints, Denies leg numbness/tingling, Denies limitation of motion, Denies loss of height, Denies low back pain, Denies morning stiffness, Denies muscle cramps, Denies muscle weakness, Denies myalgias, Denies neck pain, Denies neck stiffness, Denies prior amputations, Denies redness of joints, Denies shooting arm pain, Denies shooting leg pain Integumentary: Reports as per HPI Neurological: Reports as per HPI, Denies aphasia, Denies ataxia, Denies balance difficulties, Denies burning pain, Denies change in mentation, Denies change in smell/taste, Denies change in speech, Denies confusion, Denies convulsions, Denies double vision, Denies gait dysfunction, Denies head injury, Denies headaches, Denies hearing difficulties, Denies lack of coordination, Denies loss of vision, Denies memory loss, Denies migraines, Denies motor disturbance, Denies numbness, Denies paralysis, Denies paresthesias, Denies seizures, Denies sensory deficit, Denies spasticity, Denies syncope, Denies tic, Denies tingling, Denies transient paralysis, Denies tremors, Denies vertigo, Denies weakness, Denies visual changes Psychiatric: Reports as per HPI, Reports anxiety Endocrine: Reports as per HPI, Reports cold intolerance Past Medical History Past Medical History: Coronary Artery Disease (CAD), Cancer, COPD, CVA/TIA, D iabetes Mellitus, Deep Vein Thrombosis (DVT), Eye Disorder, GERD/Reflux, Hearing Disorder / Deafness, Hyperlipidemia, Hypertension, Myocardial Infarction (NE), Renal Disease, Rheumatoid Arthritis (RA), Sleep Apnea/CPAP/BIPAP, Syncope, Thyroid Disorder Additional Past Medical History / Comment(s): 09/16/16 with SBO with surgery/possible septic emboli with cavitary lesions bilateral lungs. 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 coli 2015 requiring PICC line insertion for IV antibiotics, restless leg syndrome, peripheral neropathy. Hx bilateral glaucoma, hx syncope r/t low blood sugars. No CPAP use. NE- December 2019 Last Myocardial Infarction Date:: 2019 History of Any Multi-Drug Resistant Organisms: ESBL, MRSA, VRE Date of last positivie culture/infection: 05/07/16 ESBL, 05/15/16 VRE, MRSA 09/2017 - upper lip MDRO Source:: URINE E.COLI, EC GALLINARUM Past Surgical History: Appendectomy, Bowel Resection, Section, Heart Catheterization With Stent, Hernia Repair Additional Past Surgical History / Comment(s): 09/30 exploratory laparotomy, lysis of adhesions bowel resection d/t obstruction. Hx: repair incarcerated incisional hernia with abdominal washout, thyroidectomy(non functioning), heart cath 06/28 - 100% occluded, unable to stent, partial nephrectomy for left kidney renal cell carcinoma, PICC line insertion (since removed), colonoscopy, bilateral cataract removal with lens implants, 2 Sections.Stent placed 03/2020 Past Anesthesia/Blood Transfusion Reactions: No Reported Reaction Date of Last Stent Placement:: 04/06/2020 Smoking Status: Former smoker - Past Family History Sister(s) Family Medical History: Cancer, Sleep Apnea/CPAP/BIPAP Additional Family Medical History / Comment(s): Patient has one sister that from liver cancer, borderline DM, PAD, hep. c. Brother(s) Family Medical History: Cancer, Coronary Artery Disease (CAD), Deep Vein Thrombosis (DVT), Hyperlipidemia Additional Family Medical History / Comment(s): Patient has 1 brother with past ETOH, past drug abuse, DVT's. She has a second brother that has from throat cancer. Daughter(s) Family Medical History: Diabetes Mellitus, Myocardial Infarction (NE) Additional Family Medical History / Comment(s): Daughter at 23 yrs old from massive NE. Father Family Medical History: Myocardial Infarction (NE) Additional Family Medical History / Comment(s): from mi at age 44 Mother Family Medical History: Cancer Additional Family Medical History / Comment(s): maeve breasts removed d/t cancer, hysterectomy d/t cancer. Mother from metastatic breast cancer. Medications and Allergies Home Medications Medication Instructions Recorded Confirmed Type Venlafaxine HCl [Venlafaxine HCl 225 mg PO DAILY 10/21/16 05/13/20 History ER] Albuterol Sulfate [Proair Hfa] 2 puff INHALATION RT-Q6H PRN 03/29/19 05/13/20 History Cyclobenzaprine [Flexeril] 5 mg PO BID PRN 03/29/19 05/13/20 History Insulin Lispro [Admelog] 0.01 unit SQ-PUMP CONTINUOUS 03/29/19 05/13/20 History Loratadine [Claritin] 10 mg PO DAILY 03/29/19 05/13/20 History Albuterol Nebulized [Ventolin 2.5 mg INHALATION RT-QID PRN 12/23/19 05/13/20 History Nebulized] Aspirin 81 mg PO DAILY 12/23/19 05/13/20 History Atorvastatin [Lipitor] 80 mg PO HS 12/23/19 05/13/20 History Beclomethasone Dip 80 Mcg/Puff 2 puff INHALATION RT-BID 12/23/19 05/13/20 History [Qvar 80 mcg] Levothyroxine Sodium [Synthroid] 150 mcg PO DAILY 12/23/19 05/13/20 History Pioglitazone [Actos] 15 mg PO DAILY 12/23/19 05/13/20 History Topiramate [Topamax] 50 mg PO HS 12/23/19 05/13/20 History Diclofenac Sodium [Voltaren Gel] 2 gram TOPICAL QID PRN 04/06/20 05/13/20 History Meclizine [Antivert] 12.5 mg PO TID PRN 04/06/20 05/13/20 History Nitroglycerin Sl Tabs [Nitrostat] 0.4 mg SL Q5M PRN 04/06/20 05/13/20 History Pantoprazole Sodium [Protonix] 40 mg PO DAILY 04/06/20 05/13/20 History Clopidogrel [Plavix] 75 mg PO DAILY #30 tab 04/07/20 05/13/20 Rx Gabapentin [Neurontin] 300 mg PO BID cap 04/07/20 05/13/20 Rx Ascorbic Acid [Vitamin C] 1,000 mg PO DAILY 05/13/20 05/13/20 History Cariprazine HCl [Vraylar] 1.5 mg PO DAILY 05/13/20 05/13/20 History Cyanocobalamin (Vitamin B-12) 1,000 mcg PO DAILY 05/13/20 05/13/20 History [Vitamin B-12] Isosorbide Mononitrate ER [Imdur] 60 mg PO DAILY 05/13/20 05/13/20 History Metoprolol Tartrate [Lopressor] 25 mg PO DAILY 05/13/20 05/13/20 History Multivitamins, Thera [Multivitamin 1 tab PO DAILY 05/13/20 05/13/20 History (formulary)] Spironolactone [Aldactone] 25 mg PO DAILY 05/13/20 05/13/20 History Allergies Allergy/AdvReac Type Severity Reaction Status Date / Time grass pollen Allergy Unknown Verified 05/12/20 21:07 latex Allergy Rash/Hives Verified 05/12/20 21:07 Sulfa (Sulfonamide Allergy Rash/Hives/ Verified 05/12/20 21:07 Antibiotics) Swelling venom-honey bee Allergy Anaphylaxis Verified 05/12/20 21:07 morphine AdvReac Decreased Verified 05/12/20 21:07 Blood Pressure prochlorperazine edisylate AdvReac Vomiting Verified 05/12/20 21:07 [From Compazine] Physical Exam Vitals: Vital Signs Temp Pulse Pulse Resp BP BP BP 05/13/20 12:35 97.1 F L 73 18 117/74 05/13/20 10:28 76 18 109/70 05/13/20 08:00 97.7 F 87 18 109/70 05/13/20 02:00 85 20 116/78 05/13/20 01:00 92 19 116/78 05/12/20 22:00 124/79 05/12/20 21:25 82 20 115/101 05/12/20 21:05 97.9 F 81 18 111/78 Pulse Ox 05/13/20 12:35 99 05/13/20 10:28 94 L 05/13/20 08:00 100 05/13/20 02:00 98 05/13/20 01:00 99 05/12/20 22:00 05/12/20 21:25 99 05/12/20 21:05 100 Intake and Output 05/12/20 05/13/20 05/13/20 22:59 06:59 14:59 Other: Voiding Method Toilet Weight 77.111 kg 77.111 kg - Constitutional General appearance: cooperative, no acute distress - EENT Eyes: anicteric sclerae, EOMI, PERRLA, dentition normal, normal appearance ENT: normal oropharynx - Neck Neck: normal ROM - Respiratory Respiratory: bilateral: CTA, negative: diminished, dullness, rales, rhonchi, wheezing - Cardiovascular Rhythm: regular Heart sounds: normal: S1, S2 Abnormal Heart Sounds: no systolic murmur, no diastolic murmur, no rub, no S3 Gallop, no S4 Gallop, no click, no other - Gastrointestinal General gastrointestinal: normal bowel sounds, soft - Integumentary Integumentary: normal, normal turgor - Neurologic Neurologic: CNII-XII intact - Musculoskeletal Musculoskeletal: gait normal, strength equal bilaterally Results CBC & Chem 7: 05/12/20 21:45 05/13/20 05:45 Labs: Abnormal Lab Results - Last 24 Hours (Table) 05/12/20 05/12/20 05/12/20 Range/Units 21:45 22:43 23:29 Sodium 119 L* (137-145) mmol/L Potassium 5.9 H (3.5-5.1) mmol/L Chloride 87 L (98-107) mmol/L Carbon Dioxide 19 L (22-30) mmol/L BUN 30 H (7-17) mg/dL Creatinine 1.17 H (0.52-1.04) mg/dL Glucose 931 H* (74-99) mg/dL POC Glucose (mg/dL) >600 H >600 H (75-99) mg/dL Alkaline Phosphatase 151 H (38-126) U/L Triglycerides (<150) mg/dL 05/12/20 05/13/20 05/13/20 Range/Units 23:54 01:41 04:17 Sodium (137-145) mmol/L Potassium (3.5-5.1) mmol/L Chloride (98-107) mmol/L Carbon Dioxide (22-30) mmol/L BUN (7-17) mg/dL Creatinine (0.52-1.04) mg/dL Glucose (74-99) mg/dL POC Glucose (mg/dL) >600 H 485 H 479 H (75-99) mg/dL Alkaline Phosphatase (38-126) U/L Triglycerides (<150) mg/dL 05/13/20 05/13/20 05/13/20 Range/Units 05:45 06:33 09:56 Sodium (137-145) mmol/L Potassium (3.5-5.1) mmol/L Chloride (98-107) mmol/L Carbon Dioxide (22-30) mmol/L BUN (7-17) mg/dL Creatinine (0.52-1.04) mg/dL Glucose (74-99) mg/dL POC Glucose (mg/dL) 369 H 432 H (75-99) mg/dL Alkaline Phosphatase (38-126) U/L Triglycerides 357 H (<150) mg/dL 05/13/20 Range/Units 11:45 Sodium (137-145) mmol/L Potassium (3.5-5.1) mmol/L Chloride (98-107) mmol/L Carbon Dioxide (22-30) mmol/L BUN (7-17) mg/dL Creatinine (0.52-1.04) mg/dL Glucose (74-99) mg/dL POC Glucose (mg/dL) 463 H (75-99) mg/dL Alkaline Phosphatase (38-126) U/L Triglycerides (<150) mg/dL Laboratory Results WBC 7.0 k/uL (3.8-10.6) 05/12/20 21:45 RBC 4.54 m/uL (3.80-5.40) 05/12/20 21:45 Hgb 13.4 gm/dL (11.4-16.0) 05/12/20 21:45 Hct 42.0 % (34.0-46.0) 05/12/20 21:45 MCV 92.6 fL (80.0-100.0) 05/12/20 21:45 MCH 29.5 pg (25.0-35.0) 05/12/20 21:45 MCHC 31.9 g/dL (31.0-37.0) 05/12/20 21:45 RDW 13.8 % (11.5-15.5) 05/12/20 21:45 Plt Count 230 k/uL (150-450) 05/12/20 21:45 MPV 7.7 05/12/20 21:45 Neutrophils % 68 % 05/12/20 21:45 Lymphocytes % 25 % 05/12/20 21:45 Monocytes % 4 % 05/12/20 21:45 Eosinophils % 2 % 05/12/20 21:45 Basophils % 1 % 05/12/20 21:45 Neutrophils # 4.8 k/uL (1.3-7.7) 05/12/20 21:45 Lymphocytes # 1.7 k/uL (1.0-4.8) 05/12/20 21:45 Monocytes # 0.3 k/uL (0-1.0) 05/12/20 21:45 Eosinophils # 0.1 k/uL (0-0.7) 05/12/20 21:45 Basophils # 0.0 k/uL (0-0.2) 05/12/20 21:45 PT 9.4 sec (9.0-12.0) 05/13/20 00:00 INR 0.9 (<1.2) 05/13/20 00:00 APTT 22.1 sec (22.0-30.0) 05/13/20 00:00 Sodium 131 mmol/L (137-145) L 05/13/20 05:45 Potassium 4.1 mmol/L (3.5-5.1) 05/13/20 05:45 Chloride 103 mmol/L (98-107) 05/13/20 05:45 Carbon Dioxide 19 mmol/L (22-30) L 05/13/20 05:45 Anion Gap 9 mmol/L 05/13/20 05:45 BUN 30 mg/dL (7-17) H 05/13/20 05:45 Creatinine 0.99 mg/dL (0.52-1.04) 05/13/20 05:45 Est GFR (CKD-EPI)AfAm 72 (>60 ml/min/1.73 sqM) 05/13/20 05:45 Est GFR (CKD-EPI)NonAf 62 (>60 ml/min/1.73 sqM) 05/13/20 05:45 Glucose 390 mg/dL (74-99) H 05/13/20 05:45 POC Glucose (mg/dL) 246 mg/dL (75-99) H 05/13/20 16:40 POC Glu [employer] ID Brianna Burgess 05/13/20 16:40 Calcium 9.2 mg/dL (8.4-10.2) 05/13/20 05:45 Magnesium 2.0 mg/dL (1.6-2.3) 05/12/20 21:45 Total Bilirubin 0.3 mg/dL (0.2-1.3) 05/13/20 05:45 AST 20 U/L (14-36) 05/13/20 05:45 ALT 11 U/L (4-34) 05/13/20 05:45 Alkaline Phosphatase 120 U/L (38-126) 05/13/20 05:45 Troponin I <0.012 ng/mL (0.000-0.034) 05/13/20 01:34 Total Protein 6.5 g/dL (6.3-8.2) 05/13/20 05:45 Albumin 3.7 g/dL (3.5-5.0) 05/13/20 05:45 Triglycerides 357 mg/dL (<150) H 05/13/20 05:45 Cholesterol 176 mg/dL (<200) 05/13/20 05:45 LDL Cholesterol, Calc 60 mg/dL (0-99) 05/13/20 05:45 HDL Cholesterol 45 mg/dL (40-60) 05/13/20 05:45 Lipase 99 U/L (23-300) 05/12/20 21:45 Acetone, Qual Negative (Negative) 05/13/20 05:45 Thrombosis Risk Factor Assmnt - Choose All That Apply Any of the Below Risk Factors Present?: Yes Each Factor Represents 1 point: Age 41-60 years, Obesity (BMI >25) Other Risk Factors: Yes Each Risk Factor Represents 3 Points: History of DVT/PE Thrombosis Risk Factor Assessment Total Risk Factor Score: 5 Thrombosis Risk Factor Assessment Level: High Risk Assessment and Plan Plan: 1. DKA, secondary to diabetes mellitus2 noncompliance, on insulin pump, Severe hyperglycemia, currently her supplies her reservoir her safety needle her NovoLog are all in place, without any deficiency of supplies. Compliance again was advocated strictly enforced for her safety, and regimented program for diabetes control. Patient also was seen by Dr. Diann Wahl as well as extension educator for which diabetes is still uncontrolled. Multiple admissions secondary to noncompliance, we have given her Levemir 30 units, for tonight and resume insulin pump use in the morning at 6:00, NovoLog scale starting today, with pre-meal dose that would and at 12 midnight. 10 units pre-meal breakfast lunch and dinner. She has Accu-Cheks 4 times a day, patient will be a good candidate for dexcom or FreeStyle erik if insurance covers for it 2 history of recent non-ST NE 04/06/2020: Patient ended up going to the [facility] had a PCI and stent placement of the proximal LAD doing well so far continue secondary prevention.Presenting with chest pain, cardiology is following the patient, and released her for medical management. 2 significant CAD with more blockage in the proximal LAD post PCI and stent placement. 3 nonketotic hyperglycemia: Patient seen endocrinology along with her primary ca re physician on regular basis she is on insulin pump which start her insulin back again continue Accu-Chek with sliding scales coverage for now. 4 COPD: With worsening symptoms she has been on DuoNeb and Flovent continue medication. 5 Hyperlipidemia: Patient remain on atorvastatin 80 mg daily. 6 Hypothyroidism: Continue patient on levothyroxine 150 g daily. 7 Chronic depression: Patient doing well on Topamax and Effexor. 8 Chronic neuropathy: Patient is on gabapentin 300 mg twice a day. 9 Chronic kidney disease: Repeat BUN/creatinine tomorrow morning. 10 GI prophylaxis: Continue patient on pantoprazole 40 mg daily. 12 DVT prophylaxis: Patient is on anticoagulation currently continue knee-high ALEXANDRE hose and Venodyne boots. CODE STATUS: Full code.
[2020-05-13] MEDS: FLUTICASONE 110 MCG INHALER INHALATION SCH (19:56)
[2020-05-13] MEDS ORDERED: TOPIRAMATE 25 MG TAB PO SCH (21:00)
[2020-05-13] MEDS ORDERED: ATORVASTATIN 80 MG TAB PO SCH (21:00)
[2020-05-13 21:56] LABS: Glucose,Whole Blood 214 mg/dL (75-99)
[2020-05-14 05:53] LABS: Glucose,Whole Blood 150 mg/dL (75-99)
[2020-05-14] MEDS ORDERED: INSULIN PUMP ACTIVE INSULIN 1 EACH MISC MISCELLANE PRN (07:58)
[2020-05-14] MEDS ORDERED: INSULIN ASPART (NovoLOG) 100 UNIT/ML VIAL SQ PRN (07:58)
[2020-05-14] MEDS ORDERED: INSPUCOR MISCELLANE PRN (07:58)
[2020-05-14] MEDS ORDERED: INSULIN PUMP TARGET GLUCOSE 1 EACH MISC MISCELLANE PRN (07:58)
[2020-05-14] MEDS ORDERED: INSULIN PUMP BASAL RATES 1 EACH MISC MISCELLANE PRN (07:58)
[2020-05-14] MEDS: LEVOTHYROXINE 75 MCG TAB PO SCH (08:50)
[2020-05-14] MEDS: MULTIVITAMINS, THERA 1 EACH TAB PO SCH (08:50)
[2020-05-14] MEDS: CYANOCOBALAMIN 500 MCG TAB PO SCH (08:51)
[2020-05-14] MEDS: GABAPENTIN 300 MG CAP PO SCH (08:51)
[2020-05-14] MEDS: VENLAFAXINE HCL ER 75 MG CAP PO SCH (08:51)
[2020-05-14] MEDS: PIOGLITAZONE 15 MG TAB PO SCH (08:52)
[2020-05-14] MEDS: CLOPIDOGREL 75 MG TAB PO SCH (08:53)
[2020-05-14] MEDS: METOPROLOL TARTRATE 25 MG TAB PO SCH (08:53)
[2020-05-14] MEDS: PANTOPRAZOLE 40 MG TABLET PO SCH (08:53)
[2020-05-14] MEDS: LORATADINE 10 MG TAB PO SCH (08:53)
[2020-05-14] MEDS ORDERED: ASCORBIC ACID 500 MG TAB PO SCH (09:00)
[2020-05-14] MEDS ORDERED: ASPIRIN 81 MG PO SCH (09:00)
[2020-05-14] MEDS: FLUTICASONE 110 MCG INHALER INHALATION SCH (09:24)
[2020-05-14] MEDS: ISOSORBIDE MONONITRATE ER 60 MG TAB.ER.24H PO SCH (09:51)
[2020-05-14] MEDS: NON FORMULARY DRUG (Cariprazine Hcl [Vraylar] 1.5 MG Capsule) PO SCH (09:52)
[2020-05-14] MEDS: INSULIN PUMP MEAL BOLUS 1 UNIT MISC MISCELLANE SCH ×2 (09:52→13:23)
[2020-05-14 09:53] LABS: African American GFR (CKD) 70.9 (60.0-200.0); Albumin 4.1 g/dL (3.80-4.90); Albumin/Globulin Ratio 1.86 (1.60-3.17); Anion Gap 9.9 mmol/L (4.00-12.00); Calcium 9.3 mg/dL (8.7-10.3); Carbon Dioxide 26.1 mmol/L (21.6-31.8); Globulin 2.2 g/dL (1.6-3.3); Non-African American GFR(CKD) 61.2 (60.0-200.0); Potassium 3.5 mmol/L (3.5-5.5); Total Bilirubin 0.2 mg/dL (0.3-1.2); Total Protein 6.3 g/dL (6.2-8.2)
[2020-05-14] MEDS: INSULIN ASPART (NovoLOG) 100 UNIT/ML VIAL SQ SCH (10:12)
[2020-05-14] MEDS: INSULIN DETEMIR (LEVEMIR) 100 UNIT/ML SYR SQ SCH (10:12)
[2020-05-14 12:09] LABS: Glucose,Whole Blood 284 mg/dL (75-99)
--- NOTE | 2020-05-14 12:17 | P.DS ---
Providers Date of admission: 05/12/20 23:08 Attending physician: Sahra Elder Consults: 05/12/20 23:14 Consult Physician Urgent Consulting Provider: [facility] Consult Reason/Comments: Chest Pain Do you want consulting provider notified?: Yes Primary care physician: [facility] Course: 60-year-old female one of Dr. hung's patient with past medical history of CAD, COPD, type 2 diabetes and chronic kidney disease with history of noncompliance with insulin come, we've known her multiple times from the previous admission secondary to hyperglycemia, and chest pain. She was last hospitalized 04/06/2020, from a non-STEMI diagnosis of [facility] that time, and transferred to [facility]. She required an angioplasty and stent to proximal LAD, with Dr. Kurtz she is now on multiple medications for her cardiac disease, however in the emergency room, she was found to have blood sugars of over 900, patient complaining of chest pain dizziness, as her sugars were over 900. Apparently patient has multiple problems requiring admissions for hyperglycemia, either her insulin medication is running out, or her safety needle or her insulin pump reservoir your is running out, and this time she mentioned that she has ran out of the reservoir, she hasn't used any insulin for the past 48 hours, as she feels that the insulin needle is uncomfortable. She follows with Dr. Maryuri franks. We started her on insulin drip in the emergency room, and transition to pre-meal basal bolus, Levemir tonight at 30 mg 1 dose, with subsequent insulin pump Would be restarted tomorrow at 7:00. H&P was seen by cardiology for which they felt that it is a noncardiac cause pain she does also have pre-existing costochondritis and osteoporosis. She denies any cough no fever. Patient was in the emergency room for this visit, until a bed is available in the [facility] unit. In the emergency room, In the emergency room, sodium was 119, CO2 of 19, creatinine of 1.17, glucose of 131, WBC count normal, sodium currently at 131, potassium of 4.1, pCO2 of 19, lipase normal 99, triglyceride elevated at 357, LDL of 60. Serum acetone was positive on admission, which has cleared on today's examination. May 14: Patient's doing well, insulin pump was infusing this morning, patient is eating okay, no chest pain no shortness of breath, no fever no cough chills, patient educated regarding compliance for's use, no new treatment from cardiology, patient feels well enough to go home today follow-up with PCP Dr. Severino, in 1 weekFollow-up with cardiology Dr. Cowan one week, and follow-up with Dr. Wahl scheduled endocrine Final diagnosis Plan: 1. DKA, secondary to diabetes mellitus1 noncompliance, on insulin pump, Severe hyperglycemia, currently her supplies her reservoir her safety needle her NovoLog are all in place, without any deficiency of supplies. Compliance again was advocated strictly enforced for her safety, and regimented program for diabetes control. Patient also was seen by Dr. Diann Wahl as well as staff development educator for which diabetes is still uncontrolled. Multiple admissions secondary to noncompliance, we have given her Levemir 30 units, for tonight and resume insulin pump use in the morning at 6:00, NovoLog scale starting today, with pre-meal dose that would and at 12 midnight. 10 units pre-meal breakfast lunch and dinner. She has Accu-Cheks 4 times a day, patient will be a good candidate for dexcom or FreeStyle erik if insurance covers for it stabilized, still slow for discharge today, infusion pump running well 2 ruled out ACS during this admission history of recent non-ST TN 04/06/2020: Patient ended up going to the director of cardiac cath lab had a PCI and stent placement of the proximal LAD doing well so far continue secondary prevention.Presenting with chest pain, cardiology is following the patient, and released her for medical management. 2 significant CAD with more blockage in the proximal LAD post PCI and stent placement. Did by cardiology for discharge no med changes by cardiology no med changes ruled out [place] this admission 3 ketotic hyperglycemia: Patient seen endocrinology along with her primary care physician on regular basis she is on insulin pump which start her insulin back again continue Accu-Chek with sliding scales coverage for now. 4 COPD: With worsening symptoms she has been on DuoNeb and Flovent continue medication. 5 Hyperlipidemia: Patient remain on atorvastatin 80 mg daily. 6 Hypothyroidism: Continue patient on levothyroxine 150 g daily. 7 Chronic depression: Patient doing well on Topamax and Effexor. 8 Chronic neuropathy: Patient is on gabapentin 300 mg twice a day. 9 Chronic kidney disease: Repeat BUN/creatinine tomorrow morning. 10 GI prophylaxis: Continue patient on pantoprazole 40 mg daily. 12 DVT prophylaxis: Patient is on anticoagulation currently continue knee-high ALEXANDRE hose and Venodyne boots. CODE STATUS: Full code. Discharge Medication List Venlafaxine HCl [Venlafaxine HCl ER] 225 mg PO DAILY 10/21/16 [History] Albuterol Sulfate [Proair Hfa] 2 puff INHALATION RT-Q6H PRN 03/29/19 [History] Cyclobenzaprine [Flexeril] 5 mg PO BID PRN 03/29/19 [History] Insulin Lispro [Admelog] 0.01 unit SQ-PUMP CONTINUOUS 03/29/19 [History] Loratadine [Claritin] 10 mg PO DAILY 03/29/19 [History] Albuterol Nebulized [Ventolin Nebulized] 2.5 mg INHALATION RT-QID PRN 12/23/19 [History] Aspirin 81 mg PO DAILY 12/23/19 [History] Atorvastatin [Lipitor] 80 mg PO HS 12/23/19 [History] Beclomethasone Dip 80 Mcg/Puff [Qvar 80 mcg] 2 puff INHALATION RT-BID 12/23/19 [History] Levothyroxine Sodium [Synthroid] 150 mcg PO DAILY 12/23/19 [History] Pioglitazone [Actos] 15 mg PO DAILY 12/23/19 [History] Topiramate [Topamax] 50 mg PO HS 12/23/19 [History] Diclofenac Sodium [Voltaren Gel] 2 gram TOPICAL QID PRN 04/06/20 [History] Meclizine [Antivert] 12.5 mg PO TID PRN 04/06/20 [History] Nitroglycerin Sl Tabs [Nitrostat] 0.4 mg SL Q5M PRN 04/06/20 [History] Pantoprazole Sodium [Protonix] 40 mg PO DAILY 04/06/20 [History] Clopidogrel [Plavix] 75 mg PO DAILY #30 tab 04/07/20 [Rx] Gabapentin [Neurontin] 300 mg PO BID cap 04/07/20 [Rx] Ascorbic Acid [Vitamin C] 1,000 mg PO DAILY 05/13/20 [History] Cariprazine HCl [Vraylar] 1.5 mg PO DAILY 05/13/20 [History] Cyanocobalamin (Vitamin B-12) [Vitamin B-12] 1,000 mcg PO DAILY 05/13/20 [History] Isosorbide Mononitrate ER [Imdur] 60 mg PO DAILY 05/13/20 [History] Metoprolol Tartrate [Lopressor] 25 mg PO DAILY 05/13/20 [History] Multivitamins, Thera [Multivitamin (formulary)] 1 tab PO DAILY 05/13/20 [History] Spironolactone [Aldactone] 25 mg PO DAILY 05/13/20 [History] Patient Condition at Discharge: Serious Plan - Discharge Summary Discharge Rx Participant: Yes New Discharge Prescriptions: Continue Venlafaxine HCl [Venlafaxine HCl ER] 225 mg PO DAILY Loratadine [Claritin] 10 mg PO DAILY Insulin Lispro [Admelog] 0.01 unit SQ-PUMP CONTINUOUS Cyclobenzaprine [Flexeril] 5 mg PO BID PRN PRN Reason: Muscle Spasm Albuterol Sulfate [Proair Hfa] 2 puff INHALATION RT-Q6H PRN PRN Reason: Shortness Of Breath Topiramate [Topamax] 50 mg PO HS Pioglitazone [Actos] 15 mg PO DAILY Beclomethasone Dip 80 Mcg/Puff [Qvar 80 mcg] 2 puff INHALATION RT-BID Levothyroxine Sodium [Synthroid] 150 mcg PO DAILY Atorvastatin [Lipitor] 80 mg PO HS Aspirin 81 mg PO DAILY Albuterol Nebulized [Ventolin Nebulized] 2.5 mg INHALATION RT-QID PRN PRN Reason: Wheezing Pantoprazole Sodium [Protonix] 40 mg PO DAILY Nitroglycerin Sl Tabs [Nitrostat] 0.4 mg SL Q5M PRN PRN Reason: Chest Pain Meclizine [Antivert] 12.5 mg PO TID PRN PRN Reason: dizziness Diclofenac Sodium [Voltaren Gel] 2 gram TOPICAL QID PRN PRN Reason: Chest Wall Pain Gabapentin [Neurontin] 300 mg PO BID cap Clopidogrel [Plavix] 75 mg PO DAILY #30 tab Multivitamins, Thera [Multivitamin (formulary)] 1 tab PO DAILY Spironolactone [Aldactone] 25 mg PO DAILY Cyanocobalamin (Vitamin B-12) [Vitamin B-12] 1,000 mcg PO DAILY Ascorbic Acid [Vitamin C] 1,000 mg PO DAILY Metoprolol Tartrate [Lopressor] 25 mg PO DAILY Isosorbide Mononitrate ER [Imdur] 60 mg PO DAILY Cariprazine HCl [Vraylar] 1.5 mg PO DAILY Discharge Medication List Venlafaxine HCl [Venlafaxine HCl ER] 225 mg PO DAILY 10/21/16 [History] Albuterol Sulfate [Proair Hfa] 2 puff INHALATION RT-Q6H PRN 03/29/19 [History] Cyclobenzaprine [Flexeril] 5 mg PO BID PRN 03/29/19 [History] Insulin Lispro [Admelog] 0.01 unit SQ-PUMP CONTINUOUS 03/29/19 [History] Loratadine [Claritin] 10 mg PO DAILY 03/29/19 [History] Albuterol Nebulized [Ventolin Nebulized] 2.5 mg INHALATION RT-QID PRN 12/23/19 [History] Aspirin 81 mg PO DAILY 12/23/19 [History] Atorvastatin [Lipitor] 80 mg PO HS 12/23/19 [History] Beclomethasone Dip 80 Mcg/Puff [Qvar 80 mcg] 2 puff INHALATION RT-BID 12/23/19 [History] Levothyroxine Sodium [Synthroid] 150 mcg PO DAILY 12/23/19 [History] Pioglitazone [Actos] 15 mg PO DAILY 12/23/19 [History] Topiramate [Topamax] 50 mg PO HS 12/23/19 [History] Diclofenac Sodium [Voltaren Gel] 2 gram TOPICAL QID PRN 04/06/20 [History] Meclizine [Antivert] 12.5 mg PO TID PRN 04/06/20 [History] Nitroglycerin Sl Tabs [Nitrostat] 0.4 mg SL Q5M PRN 04/06/20 [History] Pantoprazole Sodium [Protonix] 40 mg PO DAILY 04/06/20 [History] Clopidogrel [Plavix] 75 mg PO DAILY #30 tab 04/07/20 [Rx] Gabapentin [Neurontin] 300 mg PO BID cap 04/07/20 [Rx] Ascorbic Acid [Vitamin C] 1,000 mg PO DAILY 05/13/20 [History] Cariprazine HCl [Vraylar] 1.5 mg PO DAILY 05/13/20 [History] Cyanocobalamin (Vitamin B-12) [Vitamin B-12] 1,000 mcg PO DAILY 05/13/20 [History] Isosorbide Mononitrate ER [Imdur] 60 mg PO DAILY 05/13/20 [History] Metoprolol Tartrate [Lopressor] 25 mg PO DAILY 05/13/20 [History] Multivitamins, Thera [Multivitamin (formulary)] 1 tab PO DAILY 05/13/20 [History] Spironolactone [Aldactone] 25 mg PO DAILY 05/13/20 [History] Follow up Appointment(s)/Referral(s): Dixon Wahl MD [REFERRING] - 1 Week Lee Severino MD [Primary Care Provider] - 1-2 days Germán Sierra MD [STAFF PHYSICIAN] - 1 Week
[2020-05-14 13:00] VITALS: BP 118/81; PULSE 78; RESP 16
--- NOTE | 2020-05-16 14:13 | CDI ---
Documentation Clarification Form Date: 05/16/20 From: Diamond Jones Phone: If you have a question about this query, please contact Colleen Foley, [employer] at [phone] between 8am and 5pm. Admit Date: 05/12/20 Discharge Date: 05/14/20 Patient Name: JAKOB WHITE Visit Number: [id number] ATTENTION: The Clinical Documentation Specialists (CDI) and [facility] Coding Staff appreciate your assistance in clarifying documentation. Please respond to the clarification below the line at the bottom and electronically sign. The CDI & [facility] Coding staff will review the response and follow-up if needed. Please note: Queries are made part of the Legal Health Record. If you have any questions, please contact the author of this message via ITS. Dear Dr. Sahra Elder, CKD is documented in the H&P and DS. History/Risk Factors: Type II DM w DKA, CKD, peripheral neuropathy & ophthalmic. Clinical Indicators: 05/12-05/14/20 Current BUN: 30, 30, 33 Current CR: 1.17, 0.99, 1.0 Current GFR: 51, 62, 61.2 Treatment: monitoring of BUN & CR In order to capture the severity of condition, please clarify the stage of the CKD, if known: CKD Stage 1 (GFR > 90) CKD Stage 2 (GFR 60-89) CKD Stage 3a (GFR 45-59) CKD Stage 3b (GFR 30-44) CKD Stage 4 (GFR 15-29) CKD Stage 5 (GFR <15) ESRD Other, please specify Unable to determine ckd 3a MTDD
== END 2020-05-14 14:29 | disposition home or self-care (01) ==
LOC: EC 20:51 → 3SCARD 23:08 → INTOOBSV 23:08 → 3SCARD 23:54 → 6NMEDSUR 05-13 18:11 → 5NMEDONC 05-13 20:33 → UNDODISIN 05-14 14:29
PROVIDERS: ADMIT Family Medicine; ATTEND Family Medicine
DX: E11.10 Type 2 diabetes mellitus with ketoacidosis without coma (principal); I25.10 Atherosclerotic heart disease of native coronary artery without angina pectoris; E89.0 Postprocedural hypothyroidism; Z96.41 Presence of insulin pump (external) (internal); Z79.4 Long term (current) use of insulin; T38.3X6A Underdosing of insulin and oral hypoglycemic [antidiabetic] drugs, initial encounter; I25.2 Old myocardial infarction; Z95.5 Presence of coronary angioplasty implant and graft; E11.65 Type 2 diabetes mellitus with hyperglycemia; E11.42 Type 2 diabetes mellitus with diabetic polyneuropathy; E11.39 Type 2 diabetes mellitus with other diabetic ophthalmic complication; E11.22 Type 2 diabetes mellitus with diabetic chronic kidney disease; N18.31 Chronic kidney disease, stage 3a; I12.9 Hypertensive chronic kidney disease with stage 1 through stage 4 chronic kidney disease, or unspecified chronic kidney disease; J44.9 Chronic obstructive pulmonary disease, unspecified; E78.5 Hyperlipidemia, unspecified; F32.9 Major depressive disorder, single episode, unspecified; M81.0 Age-related osteoporosis without current pathological fracture; K21.9 Gastro-esophageal reflux disease without esophagitis; M06.9 Rheumatoid arthritis, unspecified; H91.90 Unspecified hearing loss, unspecified ear; G47.30 Sleep apnea, unspecified; Z99.89 Dependence on other enabling machines and devices; G89.29 Other chronic pain; M54.9 Dorsalgia, unspecified; Z86.73 Personal history of transient ischemic attack (TIA), and cerebral infarction without residual deficits; Z86.718 Personal history of other venous thrombosis and embolism; Z87.440 Personal history of urinary (tract) infections; Z86.19 Personal history of other infectious and parasitic diseases; G25.81 Restless legs syndrome; M94.0 Chondrocostal junction syndrome [Tietze]; Z86.14 Personal history of Methicillin resistant Staphylococcus aureus infection; Z85.528 Personal history of other malignant neoplasm of kidney; Z87.891 Personal history of nicotine dependence; Z79.899 Other long term (current) drug therapy; Z79.82 Long term (current) use of aspirin; Z79.890 Hormone replacement therapy; Z91.030 Bee allergy status; Z91.040 Latex allergy status; Z88.5 Allergy status to narcotic agent; Z88.2 Allergy status to sulfonamides; Z88.8 Allergy status to other drugs, medicaments and biological substances; Z91.048 Other nonmedicinal substance allergy status; E66.9 Obesity, unspecified; Z68.29 Body mass index [BMI] 29.0-29.9, adult; Z86.711 Personal history of pulmonary embolism; Z91.14 Patient's other noncompliance with medication regimen; Z79.51 Long term (current) use of inhaled steroids; Z79.02 Long term (current) use of antithrombotics/antiplatelets; Z86.69 Personal history of other diseases of the nervous system and sense organs; Z90.5 Acquired absence of kidney; Z90.49 Acquired absence of other specified parts of digestive tract; Z87.19 Personal history of other diseases of the digestive system; Z98.42 Cataract extraction status, left eye; Z98.41 Cataract extraction status, right eye; Z96.1 Presence of intraocular lens; Z98.890 Other specified postprocedural states; Z98.891 History of uterine scar from previous surgery; Z83.1 Family history of other infectious and parasitic diseases; Z83.3 Family history of diabetes mellitus; Z80.3 Family history of malignant neoplasm of breast; Z82.49 Family history of ischemic heart disease and other diseases of the circulatory system; Z80.49 Family history of malignant neoplasm of other genital organs; Z80.0 Family history of malignant neoplasm of digestive organs; Z80.1 Family history of malignant neoplasm of trachea, bronchus and lung
CPT/HCPCS: 96361 ×2; 96374; 96375; 99285; 36415; 94640; 93005 ×2; 80061; 80053 ×3; 82009 ×2; 83690; 83735; 84484 ×2; 85025; 85610; 85730; 71046; G0378 ×5; J2405; J2270; 96360

== ENCOUNTER 2020-09-04 10:38 | Emergency (ER) | payer OTHER ==
[2020-09-04 10:45] VITALS: TEMP 97.9
--- NOTE | 2020-09-04 11:41 | ED ---
General Adult HPI - General Chief complaint: Fall Stated complaint: fall Time Seen by Provider: 09/04/20 10:45 Source: patient, RN notes reviewed Mode of arrival: ambulatory Limitations: no limitations - History of Present Illness Initial comments: 60-year-old female with a computed past medical history presents to the emergency room for a chief complaint of fall. Patient reports that 5 days ago she went to sit down on a bench and fell. States her left elbow went into the left side of her chest. Patient states that it has been painful since that time and will not get better. She states it is painful to take a deep breath and to press on the area. Patient states she no longer takes Plavix, no other blood thinners. Patient denies hitting her head or loss of consciousness. Denies headache or neck pain. Denies back pain. Patient denies any abdominal pain. Patient has no other complaints at this time including shortness of breath, chest pain, abdominal pain, nausea or vomiting, headache, or visual changes. - Related Data Home Medications Medication Instructions Recorded Confirmed Venlafaxine HCl [Venlafaxine HCl 225 mg PO DAILY 10/21/16 05/13/20 ER] Albuterol Sulfate [Proair Hfa] 2 puff INHALATION RT-Q6H PRN 03/29/19 05/13/20 Cyclobenzaprine [Flexeril] 5 mg PO BID PRN 03/29/19 05/13/20 Insulin Lispro [Admelog] 0.01 unit SQ-PUMP CONTINUOUS 03/29/19 05/13/20 Loratadine [Claritin] 10 mg PO DAILY 03/29/19 05/13/20 Albuterol Nebulized [Ventolin 2.5 mg INHALATION RT-QID PRN 12/23/19 05/13/20 Nebulized] Aspirin 81 mg PO DAILY 12/23/19 05/13/20 Atorvastatin [Lipitor] 80 mg PO HS 12/23/19 05/13/20 Beclomethasone Dip 80 Mcg/Puff 2 puff INHALATION RT-BID 12/23/19 05/13/20 [Qvar 80 mcg] Levothyroxine Sodium [Synthroid] 150 mcg PO DAILY 12/23/19 05/13/20 Pioglitazone [Actos] 15 mg PO DAILY 12/23/19 05/13/20 Topiramate [Topamax] 50 mg PO HS 12/23/19 05/13/20 Diclofenac Sodium [Voltaren Gel] 2 gram TOPICAL QID PRN 04/06/20 05/13/20 Meclizine [Antivert] 12.5 mg PO TID PRN 04/06/20 05/13/20 Nitroglycerin Sl Tabs [Nitrostat] 0.4 mg SL Q5M PRN 04/06/20 05/13/20 Pantoprazole Sodium [Protonix] 40 mg PO DAILY 04/06/20 05/13/20 Ascorbic Acid [Vitamin C] 1,000 mg PO DAILY 05/13/20 05/13/20 Cariprazine HCl [Vraylar] 1.5 mg PO DAILY 05/13/20 05/13/20 Cyanocobalamin (Vitamin B-12) 1,000 mcg PO DAILY 05/13/20 05/13/20 [Vitamin B-12] Isosorbide Mononitrate ER [Imdur] 60 mg PO DAILY 05/13/20 05/13/20 Metoprolol Tartrate [Lopressor] 25 mg PO DAILY 05/13/20 05/13/20 Multivitamins, Thera [Multivitamin 1 tab PO DAILY 05/13/20 05/13/20 (formulary)] Spironolactone [Aldactone] 25 mg PO DAILY 05/13/20 05/13/20 Previous Rx's Medication Instructions Recorded Clopidogrel [Plavix] 75 mg PO DAILY #30 tab 04/07/20 Gabapentin [Neurontin] 300 mg PO BID cap 04/07/20 Allergies Allergy/AdvReac Type Severity Reaction Status Date / Time grass pollen Allergy Unknown Verified 09/04/20 10:45 latex Allergy Rash/Hives Verified 09/04/20 10:45 Sulfa (Sulfonamide Allergy Rash/Hives/ Verified 09/04/20 10:45 Antibiotics) Swelling venom-honey bee Allergy Anaphylaxis Verified 09/04/20 10:45 morphine AdvReac Decreased Verified 09/04/20 10:45 Blood Pressure prochlorperazine edisylate AdvReac Vomiting Verified 09/04/20 10:45 [From Compazine] Review of Systems ROS Statement: Those systems with pertinent positive or pertinent negative responses have been documented in the HPI. ROS Other: All systems not noted in ROS Statement are negative. Past Medical History Past Medical History: Coronary Artery Disease (CAD), Cancer, COPD, CVA/TIA, Diabetes Mellitus, Deep Vein Thrombosis (DVT), Eye Disorder, GERD/Reflux, Hearing Disorder / Deafness, Hyperlipidemia, Hypertension, Myocardial Infarction (PR), Renal Disease, Rheumatoid Arthritis (RA), Sleep Apnea/CPAP/BIPAP, Syncope, Thyroid Disorder Additional Past Medical History / Comment(s): 09/16/16 with SBO with surgery/possible septic emboli with cavitary lesions bilateral lungs. 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 coli 2015 requiring PICC line insertion for IV antibiotics, restless leg syndrome, peripheral neropathy. Hx bilateral glaucoma, hx syncope r/t low blood sugars. No CPAP use. PR- December 2019 Last Myocardial Infarction Date:: 2019 History of Any Multi-Drug Resistant Organisms: ESBL, MRSA, VRE Date of last positivie culture/infection: 05/07/16 ESBL, 05/15/16 VRE, MRSA 09/2017 - upper lip MDRO Source:: URINE E.COLI, EC GALLINARUM Past Surgical History: Appendectomy, Bowel Resection, Section, Heart Catheterization With Stent, Hernia Repair Additional Past Surgical History / Comment(s): 09/30 exploratory laparotomy, lysis of adhesions bowel resection d/t obstruction. Hx: repair incarcerated incisional hernia with abdominal washout, thyroidectomy(non functioning), heart cath 06/28 - 100% occluded, unable to stent, partial nephrectomy for left kidney renal cell carcinoma, PICC line insertion (since removed), colonoscopy, bilateral cataract removal with lens implants, 2 Sections.Stent placed 03/2020 Past Anesthesia/Blood Transfusion Reactions: No Reported Reaction Date of Last Stent Placement:: 04/06/2020 Past Psychological History: Anxiety, Depression Smoking Status: Former smoker Past Alcohol Use History: None Reported Past Drug Use History: Marijuana - Past Family History Sister(s) Family Medical History: Cancer, Sleep Apnea/CPAP/BIPAP Additional Family Medical History / Comment(s): Patient has one sister that from liver cancer, borderline DM, PAD, hep. c. Brother(s) Family Medical History: Cancer, Coronary Artery Disease (CAD), Deep Vein Thrombosis (DVT), Hyperlipidemia Additional Family Medical History / Comment(s): Patient has 1 brother with past ETOH, past drug abuse, DVT's. She has a second brother that has from throat cancer. Daughter(s) Family Medical History: Diabetes Mellitus, Myocardial Infarction (PR) Additional Family Medical History / Comment(s): Daughter at 23 yrs old from massive PR. Father Family Medical History: Myocardial Infarction (PR) Additional Family Medical History / Comment(s): from mi at age 44 Mother Family Medical History: Cancer Additional Family Medical History / Comment(s): maeve breasts removed d/t cancer, hysterectomy d/t cancer. Mother from metastatic breast cancer. General Exam Limitations: no limitations General appearance: alert, in no apparent distress Head exam: Present: atraumatic, normocephalic, normal inspection Eye exam: Present: normal appearance, PERRL, EOMI. Absent: scleral icterus, conjunctival injection, periorbital swelling ENT exam: Present: normal exam, mucous membranes moist Neck exam: Present: normal inspection, full ROM. Absent: tenderness, m eningismus, lymphadenopathy Respiratory exam: Present: normal lung sounds bilaterally, chest wall tenderness (Tenderness noted to the left anterior chest wall, no ecchymosis). Absent: respiratory distress, wheezes, rales, rhonchi, stridor Cardiovascular Exam: Present: regular rate, normal rhythm, normal heart sounds. Absent: systolic murmur, diastolic murmur, rubs, gallop, clicks GI/Abdominal exam: Present: soft, normal bowel sounds. Absent: distended, tenderness, guarding, rebound, rigid Neurological exam: Present: alert Course Vital Signs 09/04/20 10:42 Temperature 97.9 F Pulse Rate 93 Respiratory 22 Rate Blood Pressure 163/81 O2 Sat by Pulse 100 Oximetry Medical Decision Making - Medical Decision Making Vitals are stable. Patient is 100% on room air. HPI physical exam is documented. She does have tenderness to the left lateral ribs however no ecchymosis. Patient is not on blood thinners. Rib and chest x-ray was obtained that showed probable local atelectasis, possible pleural effusion related to patient's trauma. However displaced rib fracture not evident on x-ray. At this times injury is 5 days out. She is oxygenating well. She was given pain medication for her symptoms. Patient is stable for discharge home. She will follow-up with her doctor. She was given incentive spirometer by respiratory therapy and discussed the risks of pneumonias. She will return here for any worsening symptoms.I discussed this case with attending Dr. Martinez who agrees with this assessment and treatment plan. Disposition Clinical Impression: Rib contusion Disposition: HOME SELF-CARE Condition: Good Instructions (If sedation given, give patient instructions): Rib Contusion (ED) Additional Instructions: Please take Tylenol [address] or operative machinery while taking this. Follow-up with your doctor. If you develop any worsening symptoms such as worsening pain, fevers, cough return to the emergency room. Is patient prescribed a controlled substance at d/c from ED?: No Referrals: Lee Severino MD [Primary Care Provider] - 1-2 days Time of Disposition: 12:27
--- NOTE | 2020-09-04 11:53 | XR ---
Chest x-ray and left RIBS HISTORY: Trauma and pain Frontal view of the chest, 4 views the left ribs correlated to prior chest x-ray 05/12/2020 There are some strand-like densities within the lungs. No evident pneumothorax. Some blunting left co stophrenic angle is noted. Probable calcified granuloma present in the left lower lobe. Bone minerali zation is reduced. There is a spinal curvature. Degenerative disc changes are present visualized spin e. No displaced rib fracture is evident. IMPRESSION: Probable local atelectasis, pleural effusion related to patient's trauma. Displaced rib f racture is not evident, increased sensitivity may be obtained with bone scan as indicated.
[2020-09-04] MEDS ORDERED: HYDROmorphone 0.5 MG/0.5 ML SYRINGE IM STA (12:04)
[2020-09-04] MEDS ORDERED: ACET/COD 300 MG/30 MG STARTER PACK 6 TAB BTL PO STA (12:18)
[2020-09-04 12:51] VITALS: BP 143/69; PULSE 90; RESP 18
== END 2020-09-04 13:14 | disposition home or self-care (01) ==
LOC: EC 10:38
DX: S20.219A Contusion of unspecified front wall of thorax, initial encounter (principal); I10 Essential (primary) hypertension; J44.9 Chronic obstructive pulmonary disease, unspecified; E11.42 Type 2 diabetes mellitus with diabetic polyneuropathy; E11.39 Type 2 diabetes mellitus with other diabetic ophthalmic complication; H42 Glaucoma in diseases classified elsewhere; E03.9 Hypothyroidism, unspecified; G89.29 Other chronic pain; M54.9 Dorsalgia, unspecified; E78.5 Hyperlipidemia, unspecified; M06.9 Rheumatoid arthritis, unspecified; K21.9 Gastro-esophageal reflux disease without esophagitis; H91.90 Unspecified hearing loss, unspecified ear; G47.30 Sleep apnea, unspecified; I25.2 Old myocardial infarction; F41.9 Anxiety disorder, unspecified; F32.9 Major depressive disorder, single episode, unspecified; Z79.899 Other long term (current) drug therapy; Z79.4 Long term (current) use of insulin; Z79.82 Long term (current) use of aspirin; Z79.890 Hormone replacement therapy; Z79.51 Long term (current) use of inhaled steroids; Z91.048 Other nonmedicinal substance allergy status; Z91.040 Latex allergy status; Z88.2 Allergy status to sulfonamides; Z91.030 Bee allergy status; Z88.5 Allergy status to narcotic agent; Z88.8 Allergy status to other drugs, medicaments and biological substances; Z87.891 Personal history of nicotine dependence; Z86.718 Personal history of other venous thrombosis and embolism; Z86.73 Personal history of transient ischemic attack (TIA), and cerebral infarction without residual deficits; Z99.89 Dependence on other enabling machines and devices; Z85.528 Personal history of other malignant neoplasm of kidney; W01.0XXA Fall on same level from slipping, tripping and stumbling without subsequent striking against object, initial encounter; Y92.009 Unspecified place in unspecified non-institutional (private) residence as the place of occurrence of the external cause
CPT/HCPCS: 71101; 99283; 96372; J1170

== ENCOUNTER → 2020-09-05 | Outpatient (CLI) | payer OTHER ==
[2020-09-05 21:02] LABS: Chol/HDL Ratio 3.04; LDL Cholesterol,Calculated 92.4 mg/dL (0.0-131.0); VLDL Calculation 21.6 mg/dL (5.00-40.00)
== END | disposition home or self-care (01) ==
LOC: LABWHC1 12:36
PROVIDERS: ATTEND Internal Medicine Cardiovascular Disease
DX: E78.2 Mixed hyperlipidemia (principal)
CPT/HCPCS: 36415; 80061; 84450; 84460

== ENCOUNTER 2020-09-30 17:03 | Emergency (ER) | payer OTHER ==
[2020-09-30 17:17] VITALS: RESP 16; TEMP 98
[2020-09-30] MEDS ORDERED: SODIUM CHLORIDE 0.9% 1,000 ML IV STA (17:39)
[2020-09-30] MEDS ORDERED: ONDANSETRON 4 MG/2 ML VIAL IVP STA (17:39)
[2020-09-30] MEDS ORDERED: HYDROmorphone 0.5 MG/0.5 ML SYRINGE IVP STA (17:39)
[2020-09-30] MEDS ORDERED: FAMOTIDINE 20 MG/2 ML VIAL IV STA (17:41)
--- NOTE | 2020-09-30 17:55 | ED ---
General Adult HPI - General Chief complaint: Abdominal Pain Stated complaint: Abd Pain Time Seen by Provider: 09/30/20 17:30 Source: patient, RN notes reviewed Mode of arrival: ambulatory Limitations: no limitations - History of Present Illness Initial comments: Patient is a pleasant 6-year-old female presenting to the emergency Department with complaints of abdominal discomfort. Onset of symptoms was today. Symptoms are similar to patient's previous hiatal hernia discomfort that she has had a few times in the past. No chest pain. Patient has had some nausea. No vomiting. No diarrhea or constipation. No fevers. Discomfort is in the epigastric region without radiation. - Related Data Home Medications Medication Instructions Recorded Confirmed Venlafaxine HCl [Venlafaxine HCl 225 mg PO DAILY 10/21/16 05/13/20 ER] Albuterol Sulfate [Proair Hfa] 2 puff INHALATION RT-Q6H PRN 03/29/19 05/13/20 Cyclobenzaprine [Flexeril] 5 mg PO BID PRN 03/29/19 05/13/20 Insulin Lispro [Admelog] 0.01 unit SQ-PUMP CONTINUOUS 03/29/19 05/13/20 Loratadine [Claritin] 10 mg PO DAILY 03/29/19 05/13/20 Albuterol Nebulized [Ventolin 2.5 mg INHALATION RT-QID PRN 12/23/19 05/13/20 Nebulized] Aspirin 81 mg PO DAILY 12/23/19 05/13/20 Atorvastatin [Lipitor] 80 mg PO HS 12/23/19 05/13/20 Beclomethasone Dip 80 Mcg/Puff 2 puff INHALATION RT-BID 12/23/19 05/13/20 [Qvar 80 mcg] Levothyroxine Sodium [Synthroid] 150 mcg PO DAILY 12/23/19 05/13/20 Pioglitazone [Actos] 15 mg PO DAILY 12/23/19 05/13/20 Topiramate [Topamax] 50 mg PO HS 12/23/19 05/13/20 Diclofenac Sodium [Voltaren Gel] 2 gram TOPICAL QID PRN 04/06/20 05/13/20 Meclizine [Antivert] 12.5 mg PO TID PRN 04/06/20 05/13/20 Nitroglycerin Sl Tabs [Nitrostat] 0.4 mg SL Q5M PRN 04/06/20 05/13/20 Pantoprazole Sodium [Protonix] 40 mg PO DAILY 04/06/20 05/13/20 Ascorbic Acid [Vitamin C] 1,000 mg PO DAILY 05/13/20 05/13/20 Cariprazine HCl [Vraylar] 1.5 mg PO DAILY 05/13/20 05/13/20 Cyanocobalamin (Vitamin B-12) 1,000 mcg PO DAILY 05/13/20 05/13/20 [Vitamin B-12] Isosorbide Mononitrate ER [Imdur] 60 mg PO DAILY 05/13/20 05/13/20 Metoprolol Tartrate [Lopressor] 25 mg PO DAILY 05/13/20 05/13/20 Multivitamins, Thera [Multivitamin 1 tab PO DAILY 05/13/20 05/13/20 (formulary)] Spironolactone [Aldactone] 25 mg PO DAILY 05/13/20 05/13/20 Previous Rx's Medication Instructions Recorded Clopidogrel [Plavix] 75 mg PO DAILY #30 tab 04/07/20 Gabapentin [Neurontin] 300 mg PO BID cap 04/07/20 Allergies Allergy/AdvReac Type Severity Reaction Status Date / Time grass pollen Allergy Unknown Verified 09/04/20 10:45 latex Allergy Rash/Hives Verified 09/04/20 10:45 Sulfa (Sulfonamide Allergy Rash/Hives/ Verified 09/04/20 10:45 Antibiotics) Swelling venom-honey bee Allergy Anaphylaxis Verified 09/04/20 10:45 morphine AdvReac Decreased Verified 09/04/20 10:45 Blood Pressure prochlorperazine edisylate AdvReac Vomiting Verified 09/04/20 10:45 [From Compazine] Review of Systems ROS Statement: Those systems with pertinent positive or pertinent negative responses have been documented in the HPI. ROS Other: All systems not noted in ROS Statement are negative. Constitutional: Denies: fever Eyes: Denies: eye pain ENT: Denies: ear pain Respiratory: Denies: cough Cardiovascular: Denies: chest pain Endocrine: Denies: fatigue Gastrointestinal: Reports: as per HPI, abdominal pain, nausea. Denies: vomiting Genitourinary: Denies: dysuria Musculoskeletal: Denies: back pain Skin: Denies: rash Neurological: Denies: headache Past Medical History Past Medical History: Coronary Artery Disease (CAD), Cancer, COPD, CVA/TIA, D iabetes Mellitus, Deep Vein Thrombosis (DVT), Eye Disorder, GERD/Reflux, Hearing Disorder / Deafness, Hyperlipidemia, Hypertension, Myocardial Infarction ([place]), Renal Disease, Rheumatoid Arthritis ([place]), Sleep Apnea/CPAP/BIPAP, Syncope, Thyroid Disorder Additional Past Medical History / Comment(s): 09/16/16 with SBO with surgery/possible septic emboli with cavitary lesions bilateral lungs. 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 coli 2015 requiring PICC line insertion for IV antibiotics, restless leg syndrome, peripheral neropathy. Hx bilateral glaucoma, hx syncope r/t low blood sugars. No CPAP use. [place]- December 2019 Last Myocardial Infarction Date:: 2019 History of Any Multi-Drug Resistant Organisms: ESBL, MRSA, VRE Date of last positivie culture/infection: 05/07/16 ESBL, 05/15/16 VRE, MRSA 09/2017 - upper lip MDRO Source:: URINE E.COLI, EC GALLINARUM Past Surgical History: Appendectomy, Bowel Resection, Section, Heart Catheterization With Stent, Hernia Repair Additional Past Surgical History / Comment(s): 09/30 exploratory laparotomy, lysis of adhesions bowel resection d/t obstruction. Hx: repair incarcerated incisional hernia with abdominal washout, thyroidectomy(non functioning), heart cath 06/28 - 100% occluded, unable to stent, partial nephrectomy for left kidney renal cell carcinoma, PICC line insertion (since removed), colonoscopy, bilateral cataract removal with lens implants, 2 Sections.Stent placed 03/2020 Past Anesthesia/Blood Transfusion Reactions: No Reported Reaction Date of Last Stent Placement:: 04/06/2020 Past Psychological History: Anxiety, Depression Smoking Status: Current some day smoker Past Alcohol Use History: None Reported Past Drug Use History: Marijuana - Past Family History Sister(s) Family Medical History: Cancer, Sleep Apnea/CPAP/BIPAP Additional Family Medical History / Comment(s): Patient has one sister that from liver cancer, borderline DM, PAD, hep. c. Brother(s) Family Medical History: Cancer, Coronary Artery Disease (CAD), Deep Vein Thrombosis (DVT), Hyperlipidemia Additional Family Medical History / Comment(s): Patient has 1 brother with past ETOH, past drug abuse, DVT's. She has a second brother that has from throat cancer. Daughter(s) Family Medical History: Diabetes Mellitus, Myocardial Infarction ([place]) Additional Family Medical History / Comment(s): Daughter at 23 yrs old from massive [place]. Father Family Medical History: Myocardial Infarction ([place]) Additional Family Medical History / Comment(s): from [place] at age 44 Mother Family Medical History: Cancer Additional Family Medical History / Comment(s): maeve breasts removed d/t cancer, hysterectomy d/t cancer. Mother from metastatic breast cancer. General Exam Limitations: no limitations General appearance: alert, in no apparent distress Head exam: Present: normocephalic Eye exam: Present: normal appearance Neck exam: Present: normal inspection Respiratory exam: Present: normal lung sounds bilaterally Cardiovascular Exam: Present: regular rate, normal rhythm Expanded Peripheral pulses: 2+: Dorsalis Pedis (R), Dorsalis Pedis (L) GI/Abdominal exam: Present: soft, tenderness (Moderate epigastric tenderness to palpation), normal bowel sounds. Absent: distended, guarding, rebound, rigid, pulsatile mass Extremities exam: Present: normal inspection. Absent: pedal edema, calf tenderness Neurological exam: Present: alert Psychiatric exam: Present: normal affect, normal mood Skin exam: Present: normal color Course Vital Signs 09/30/20 17:09 Temperature 98.0 F Pulse Rate 56 L Respiratory 16 Rate Blood Pressure 128/74 O2 Sat by Pulse 98 Oximetry Medical Decision Making - Medical Decision Making Patient reevaluated and feeling much better. Abdomen soft and nontender. Patient updated on results and need for follow-up. - Lab Data Result diagrams: 09/30/20 17:46 09/30/20 17:46 Lab Results 09/30/20 09/30/20 09/30/20 Range/Units 17:46 17:46 17:46 WBC 5.6 (3.8-10.6) k/uL RBC 4.01 (3.80-5.40) m/uL Hgb 11.9 (11.4-16.0) gm/dL Hct 35.5 (34.0-46.0) % MCV 88.5 (80.0-100.0) fL MCH 29.5 (25.0-35.0) pg MCHC 33.4 (31.0-37.0) g/dL RDW 14.3 (11.5-15.5) % Plt Count 212 (150-450) k/uL MPV 7.5 Neutrophils % 55 % Lymphocytes % 35 % Monocytes % 3 % Eosinophils % 5 % Basophils % 0 % Neutrophils # 3.1 (1.3-7.7) k/uL Lymphocytes # 2.0 (1.0-4.8) k/uL Monocytes # 0.2 (0-1.0) k/uL Eosinophils # 0.3 (0-0.7) k/uL Basophils # 0.0 (0-0.2) k/uL Sodium 138 (137-145) mmol/L Potassium 4.9 (3.5-5.1) mmol/L Chloride 104 (98-107) mmol/L Carbon Dioxide 29 (22-30) mmol/L Anion Gap 5 mmol/L BUN 22 H (7-17) mg/dL Creatinine 0.78 (0.52-1.04) mg/dL Est GFR (CKD-EPI)AfAm >90 (>60 ml/min/1.73 sqM) Est GFR (CKD-EPI)NonAf 83 (>60 ml/min/1.73 sqM) Glucose 249 H (74-99) mg/dL Calcium 9.0 (8.4-10.2) mg/dL Total Bilirubin 0.2 (0.2-1.3) mg/dL AST 25 (14-36) U/L ALT 16 (4-34) U/L Alkaline Phosphatase 125 (38-126) U/L Total Protein 6.7 (6.3-8.2) g/dL Albumin 4.1 (3.5-5.0) g/dL Amylase 34 (30-110) U/L Lipase 65 (23-300) U/L Urine Color Yellow Urine Appearance Clear (Clear) Urine pH 5.5 (5.0-8.0) Ur Specific [place] 1.025 (1.001-1.035) Urine Protein Negative (Negative) Urine Glucose (UA) 4+ H (Negative) Urine Ketones Negative (Negative) Urine Blood Negative (Negative) Urine Nitrite Negative (Negative) Urine Bilirubin Negative (Negative) Urine Urobilinogen <2.0 (<2.0) mg/dL Ur Leukocyte Esterase Negative (Negative) - Radiology Data Radiology results: report reviewed (Computed tomography scan of the abdomen and pelvis reveals no acute process.) Disposition Clinical Impression: Abdominal pain Disposition: HOME SELF-CARE Condition: Stable Instructions (If sedation given, give patient instructions): Abdominal Pain (ED) Additional Instructions: Please do follow-up with primary care physician in the being the week. Return for increased pain, vomiting, fever, worsening or changing symptoms or other concerns. Is patient prescribed a controlled substance at d/c from ED?: No Referrals: Lee Severino MD [Primary Care Provider] - 1-2 days Time of Disposition: 20:12
[2020-09-30 18:26] LABS: Appearance,Urine Clear (Clear); Bilirubin,Urine Negative (Negative); Blood,Urine Negative (Negative); Color,Urine Yellow; Glucose,Urine (UA) 4+ (Negative); Ketones,Urine Negative (Negative); Leukocyte Esterase,Urine Negative (Negative); Nitrite,Urine Negative (Negative); PH, Urine 5.5 (5.0-8.0); Protein,Urine Negative (Negative); Specific Gravity,Urine 1.025 (1.001-1.035); Urobilinogen,Urine <2.0 mg/dL (<2.0)
[2020-09-30 18:29] LABS: Basophils % (A) 0 %; Eosinophils # (A) 0.3 k/uL (0-0.7); Eosinophils % (A) 5 %; HCT 35.5 % (34.0-46.0); HGB 11.9 gm/dL (11.4-16.0); Lymphocytes % (A) 35 %; MCH 29.5 pg (25.0-35.0); MCHC 33.4 g/dL (31.0-37.0); MCV 88.5 fL (80.0-100.0); Mean Platelet Volume 7.5; Monocytes # (A) 0.2 k/uL (0-1.0); Monocytes % (A) 3 %; Neutrophils # (A) 3.1 k/uL (1.3-7.7); Neutrophils % (A) 55 %; Platelet Count 212 k/uL (150-450); RBC 4.01 m/uL (3.80-5.40); RDW 14.3 % (11.5-15.5); WBC 5.6 k/uL (3.8-10.6)
[2020-09-30 18:35] LABS: ALT 16 U/L (4-34); AST 25 U/L (14-36); African American GFR (CKD) >90 (>60 ml/min/1.73 sqM); Albumin 4.1 g/dL (3.5-5.0); Alkaline Phosphatase 125 U/L (38-126); Amylase 34 U/L (30-110); Anion Gap 5 mmol/L; Blood Urea Nitrogen 22 mg/dL (7-17); Carbon Dioxide 29 mmol/L (22-30); Chloride 104 mmol/L (98-107); Glucose 249 mg/dL (74-99); Lipase 65 U/L (23-300); Non-African American GFR(CKD) 83 (>60 ml/min/1.73 sqM); Potassium 4.9 mmol/L (3.5-5.1); Sodium 138 mmol/L (137-145); Total Bilirubin 0.2 mg/dL (0.2-1.3); Total Protein 6.7 g/dL (6.3-8.2)
--- NOTE | 2020-09-30 20:08 | CT ---
EXAMINATION TYPE: CT abdomen pelvis w con DATE OF EXAM: 09/30/2020 COMPARISON: 03/29/2019 HISTORY: Epigastric pain. CT DLP: 1010.8 mGycm Automated exposure control for dose reduction was used. CONTRAST: Performed with IV Contrast, patient injected with 100 mL of Isovue 300. Images obtained from the diaphragm to the floor the pelvis with IV contrast. There is 1.5 cm calcified granuloma in the left lower lobe. There is no pleural effusion. There is no pericardial effusion. Heart size is normal. Liver shows no focal defect. Gallbladder appears normal. Bile ducts are not dilated. Spleen is intact . There is no pancreatic mass. There is no adrenal mass. Left kidney shows irregular cortical thinning in the upper pole. There is n o hydronephrosis. There is 1 cm calculus upper pole left kidney. Delayed images show normal renal exc retion without evidence of obstruction. There is no retroperitoneal adenopathy. There is no free flui d in the pelvis. Bladder distends smoothly. Uterus is anteverted. There is no inguinal hernia. There is no evidence of pelvic mass. There is a first-degree L5-S1 spondylolisthesis. There is osteosclerosis at the L1-2 disc. There is n o lumbar compression fracture. There is mild sclerosis in the lower thoracic vertebral bodies. The hi p joints are intact. There is no hip dysplasia. There is no evidence of pelvic fracture. There is no mesenteric edema. There is no ascites or free air. There is no bowel obstruction. Appendi x is not seen. There is no sign of thickened appendix. IMPRESSION: There is clearing of the biliary air compared to old exam. No dilated ducts. Atrophy in the upper pole left kidney with calcification appear stable. No evidence of acute abdomen and pelvis.
[2020-09-30 20:24] VITALS: BP 120/72; PULSE 62
[2020-09-30 20:27] LABS: INR 0.9 (<1.2)
== END 2020-09-30 20:24 | disposition home or self-care (01) ==
LOC: EC 17:03
DX: R10.9 Unspecified abdominal pain (principal); I25.10 Atherosclerotic heart disease of native coronary artery without angina pectoris; J44.9 Chronic obstructive pulmonary disease, unspecified; E11.9 Type 2 diabetes mellitus without complications; E78.5 Hyperlipidemia, unspecified; I10 Essential (primary) hypertension; I25.2 Old myocardial infarction; M06.9 Rheumatoid arthritis, unspecified; E07.9 Disorder of thyroid, unspecified; F32.9 Major depressive disorder, single episode, unspecified; K21.9 Gastro-esophageal reflux disease without esophagitis; F41.9 Anxiety disorder, unspecified; F17.200 Nicotine dependence, unspecified, uncomplicated; F12.90 Cannabis use, unspecified, uncomplicated; Z86.73 Personal history of transient ischemic attack (TIA), and cerebral infarction without residual deficits; Z79.4 Long term (current) use of insulin; Z86.718 Personal history of other venous thrombosis and embolism; Z85.528 Personal history of other malignant neoplasm of kidney
CPT/HCPCS: 36415; 80053; 82150; 83690; 85025; 85610; 81003; 74177; 99284; 96374; 96375 ×2; J2405; J1170; Q9967

== ENCOUNTER 2020-10-08 10:52 | Observation (INO) | payer OTHER ==
[2020-10-08] MEDS ORDERED: NITROGLYCERIN SL TABS 0.4 MG TAB SUBLINGUAL STA ×3 (11:18)
[2020-10-08] MEDS ORDERED: ASPIRIN 81 MG PO STA (11:18)
--- NOTE | 2020-10-08 11:20 | ED ---
General Adult HPI - General Chief complaint: Chest Pain Stated complaint: CHEST PAIN Time Seen by Provider: 10/08/20 11:01 Source: patient, RN notes reviewed Mode of arrival: ambulatory Limitations: no limitations - History of Present Illness Initial comments: Patient is a pleasant 60-year-old female presenting to the emergency Department with complaints of chest discomfort. Onset of symptoms was a couple hours ago this morning. Patient has pressure in her chest without radiation. No associated dyspnea or diaphoresis. Patient has some mild nausea. Symptoms are somewhat similar to previous heart attack. Discomfort is moderate to severe at this time. No leg pain or leg swelling. - Related Data Home Medications Medication Instructions Recorded Confirmed Venlafaxine HCl [Venlafaxine HCl 225 mg PO DAILY 10/21/16 10/08/20 ER] Loratadine [Claritin] 10 mg PO DAILY 03/29/19 10/08/20 Aspirin 81 mg PO DAILY 12/23/19 10/08/20 Atorvastatin [Lipitor] 80 mg PO HS 12/23/19 10/08/20 Beclomethasone Dip 80 Mcg/Puff 2 puff INHALATION RT-BID 12/23/19 10/08/20 [Qvar 80 mcg] Pioglitazone [Actos] 15 mg PO DAILY 12/23/19 10/08/20 Topiramate [Topamax] 50 mg PO HS 12/23/19 10/08/20 Meclizine [Antivert] 12.5 mg PO DAILY 04/06/20 10/08/20 Nitroglycerin Sl Tabs [Nitrostat] 0.4 mg SL Q5M PRN 04/06/20 10/08/20 Pantoprazole Sodium [Protonix] 40 mg PO DAILY 04/06/20 10/08/20 Cariprazine HCl [Vraylar] 1.5 mg PO DAILY 05/13/20 10/08/20 Ergocalciferol [Vitamin D2 (1250 1,250 mcg PO WE 10/08/20 10/08/20 Mcg = 21187 Iu)] Insulin Aspart (For Pump) [NovoLOG 0.01 unit SQ-PUMP CONTINUOUS 10/08/20 10/08/20 (For Pump)] Levothyroxine Sodium [Synthroid] 175 mcg PO DAILY 10/08/20 10/08/20 Ondansetron Odt [Zofran Odt] 4 mg PO Q8H PRN 10/08/20 10/08/20 lisinopriL [Zestril] 10 mg PO DAILY 10/08/20 10/08/20 Previous Rx's Medication Instructions Recorded Clopidogrel [Plavix] 75 mg PO DAILY #30 tab 04/07/20 Gabapentin [Neurontin] 300 mg PO BID cap 04/07/20 Allergies Allergy/AdvReac Type Severity Reaction Status Date / Time grass pollen Allergy Unknown Verified 10/08/20 12:10 latex Allergy Rash/Hives Verified 10/08/20 12:10 Sulfa (Sulfonamide Allergy Rash/Hives/ Verified 10/08/20 12:10 Antibiotics) Swelling venom-honey bee Allergy Anaphylaxis Verified 10/08/20 12:10 morphine AdvReac Decreased Verified 10/08/20 12:10 Blood Pressure prochlorperazine edisylate AdvReac Vomiting Verified 10/08/20 12:10 [From Compazine] Review of Systems ROS Statement: Those systems with pertinent positive or pertinent negative responses have been documented in the HPI. ROS Other: All systems not noted in ROS Statement are negative. Constitutional: Denies: fever Eyes: Denies: eye pain ENT: Denies: ear pain Respiratory: Denies: cough, dyspnea Cardiovascular: Reports: as per HPI, chest pain Endocrine: Denies: fatigue Gastrointestinal: Denies: abdominal pain, vomiting Genitourinary: Denies: dysuria Musculoskeletal: Denies: back pain Skin: Denies: rash Neurological: Denies: weakness Past Medical History Past Medical History: Coronary Artery Disease (CAD), Cancer, COPD, CVA/TIA, Diabetes Mellitus, Deep Vein Thrombosis (DVT), Eye Disorder, GERD/Reflux, Hearing Disorder / Deafness, Hyperlipidemia, Hypertension, Myocardial Infarction ([place]), Renal Disease, Rheumatoid Arthritis (RA), Sleep Apnea/CPAP/BIPAP, Syncope, Thyroid Disorder Additional Past Medical History / Comment(s): 09/16/16 with SBO with surgery/possible septic emboli with cavitary lesions bilateral lungs. 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 coli 2015 requiring PICC line insertion for IV antibiotics, restless leg syndrome, peripheral neropathy. Hx bilateral glaucoma, hx syncope r/t low blood sugars. No CPAP use. [place]- December 2019 Last Myocardial Infarction Date:: 2019 History of Any Multi-Drug Resistant Organisms: ESBL, MRSA, VRE Date of last positivie culture/infection: 05/07/16 ESBL, 05/15/16 VRE, MRSA 09/2017 - upper lip MDRO Source:: URINE E.COLI, EC GALLINARUM Past Surgical History: Appendectomy, Bowel Resection, Section, Heart Catheterization With Stent, Hernia Repair Additional Past Surgical History / Comment(s): 09/30 exploratory laparotomy, ly sis of adhesions bowel resection d/t obstruction. Hx: repair incarcerated incisional hernia with abdominal washout, thyroidectomy(non functioning), heart cath 06/28 - 100% occluded, unable to stent, partial nephrectomy for left kidney renal cell carcinoma, PICC line insertion (since removed), colonoscopy, bilateral cataract removal with lens implants, 2 Sections.Stent placed 03/2020 Past Anesthesia/Blood Transfusion Reactions: No Reported Reaction Date of Last Stent Placement:: 04/06/2020 Past Psychological History: Anxiety, Depression Smoking Status: Current some day smoker Past Alcohol Use History: None Reported Past Drug Use History: Marijuana - Past Family History Sister(s) Family Medical History: Cancer, Sleep Apnea/CPAP/BIPAP Additional Family Medical History / Comment(s): Patient has one sister that from liver cancer, borderline DM, PAD, hep. c. Brother(s) Family Medical History: Cancer, Coronary Artery Disease (CAD), Deep Vein Thrombosis (DVT), Hyperlipidemia Additional Family Medical History / Comment(s): Patient has 1 brother with past ETOH, past drug abuse, DVT's. She has a second brother that has from throat cancer. Daughter(s) Family Medical History: Diabetes Mellitus, Myocardial Infarction ([place]) Additional Family Medical History / Comment(s): Daughter at 23 yrs old from massive [place]. Father Family Medical History: Myocardial Infarction ([place]) Additional Family Medical History / Comment(s): from [place] at age 44 Mother Family Medical History: Cancer Additional Family Medical History / Comment(s): maeve breasts removed d/t cancer, hysterectomy d/t cancer. Mother from metastatic breast cancer. General Exam Limitations: no limitations General appearance: alert, in no apparent distress Head exam: Present: normocephalic Eye exam: Present: normal appearance Neck exam: Present: normal inspection Respiratory exam: Present: normal lung sounds bilaterally Cardiovascular Exam: Present: regular rate, normal rhythm Expanded Peripheral pulses: 2+: Radial (R), Radial (L), Dorsalis Pedis (R), Dorsalis Pedis (L) GI/Abdominal exam: Present: soft. Absent: distended, tenderness Extremities exam: Present: normal inspection. Absent: pedal edema, calf tenderness Neurological exam: Present: alert Psychiatric exam: Present: normal affect, normal mood Skin exam: Present: normal color Course Vital Signs 10/08/20 10/08/20 10/08/20 10:53 11:25 11:36 Temperature 97.9 F Pulse Rate 86 74 75 Respiratory 16 18 16 Rate Blood Pressure 129/91 149/83 134/79 O2 Sat by Pulse 98 98 98 Oximetry EKG Findings - EKG Comments: EKG Findings:: Normal sinus rhythm with a rate of 71. [place] 142. QRS 86. QT 436. QTc 473. Normal axis. LVH. T-wave inversion V3 through V6. Medical Decision Making - Medical Decision Making Reevaluated and resting comfortably in bed. Patient states symptoms have improved. Patient updated on results and plan. Case was discussed in detail with Dr. Sy, who will admit covering for Dr. Severino. Acetone will be added. - Lab Data Result diagrams: 10/08/20 11:35 10/08/20 11:35 Lab Results 10/08/20 10/08/20 10/08/20 Range/Units 11:35 11:35 11:35 WBC 5.8 (3.8-10.6) k/uL RBC 4.26 (3.80-5.40) m/uL Hgb 12.8 (11.4-16.0) gm/dL Hct 38.4 (34.0-46.0) % MCV 90.0 (80.0-100.0) fL MCH 29.9 (25.0-35.0) pg MCHC 33.3 (31.0-37.0) g/dL RDW 14.2 (11.5-15.5) % Plt Count 269 (150-450) k/uL MPV 7.3 Neutrophils % 67 % Lymphocytes % 25 % Monocytes % 4 % Eosinophils % 4 % Basophils % 0 % Neutrophils # 3.9 (1.3-7.7) k/uL Lymphocytes # 1.4 (1.0-4.8) k/uL Monocytes # 0.2 (0-1.0) k/uL Eosinophils # 0.2 (0-0.7) k/uL Basophils # 0.0 (0-0.2) k/uL PT 10.2 (9.0-12.0) sec INR 0.9 (<1.2) APTT 21.7 L (22.0-30.0) sec Sodium 132 L (137-145) mmol/L Potassium 4.7 (3.5-5.1) mmol/L Chloride 98 (98-107) mmol/L Carbon Dioxide 23 (22-30) mmol/L Anion Gap 11 mmol/L BUN 23 H (7-17) mg/dL Creatinine 0.95 (0.52-1.04) mg/dL Est GFR (CKD-EPI)AfAm 76 (>60 ml/min/1.73 sqM) Est GFR (CKD-EPI)NonAf 66 (>60 ml/min/1.73 sqM) Glucose 590 H* (74-99) mg/dL Calcium 9.7 (8.4-10.2) mg/dL Magnesium 1.9 (1.6-2.3) mg/dL Total Bilirubin 0.6 (0.2-1.3) mg/dL AST 23 (14-36) U/L ALT 18 (4-34) U/L Alkaline Phosphatase 156 H (38-126) U/L Troponin I (0.000-0.034) ng/mL Total Protein 7.3 (6.3-8.2) g/dL Albumin 4.4 (3.5-5.0) g/dL 10/08/20 Range/Units 11:35 WBC (3.8-10.6) k/uL RBC (3.80-5.40) m/uL Hgb (11.4-16.0) gm/dL Hct (34.0-46.0) % MCV (80.0-100.0) fL MCH (25.0-35.0) pg MCHC (31.0-37.0) g/dL RDW (11.5-15.5) % Plt Count (150-450) k/uL MPV Neutrophils % % Lymphocytes % % Monocytes % % Eosinophils % % Basophils % % Neutrophils # (1.3-7.7) k/uL Lymphocytes # (1.0-4.8) k/uL Monocytes # (0-1.0) k/uL Eosinophils # (0-0.7) k/uL Basophils # (0-0.2) k/uL PT (9.0-12.0) sec INR (<1.2) APTT (22.0-30.0) sec Sodium (137-145) mmol/L Potassium (3.5-5.1) mmol/L Chloride (98-107) mmol/L Carbon Dioxide (22-30) mmol/L Anion Gap mmol/L BUN (7-17) mg/dL Creatinine (0.52-1.04) mg/dL Est GFR (CKD-EPI)AfAm (>60 ml/min/1.73 sqM) Est GFR (CKD-EPI)NonAf (>60 ml/min/1.73 sqM) Glucose (74-99) mg/dL Calcium (8.4-10.2) mg/dL Magnesium (1.6-2.3) mg/dL Total Bilirubin (0.2-1.3) mg/dL AST (14-36) U/L ALT (4-34) U/L Alkaline Phosphatase (38-126) U/L Troponin I 0.017 (0.000-0.034) ng/mL Total Protein (6.3-8.2) g/dL Albumin (3.5-5.0) g/dL Disposition Clinical Impression: Chest pain, Hyperglycemia Disposition: ADMITTED IP TO THIS HOSP Is patient prescribed a controlled substance at d/c from ED?: No Referrals: Lee Severino MD [Primary Care Provider] - 1-2 days Decision Time: 12:50
[2020-10-08 11:45] LABS: Basophils % (A) 0 %; Eosinophils # (A) 0.2 k/uL (0-0.7); Eosinophils % (A) 4 %; HCT 38.4 % (34.0-46.0); HGB 12.8 gm/dL (11.4-16.0); Lymphocytes # (A) 1.4 k/uL (1.0-4.8); Lymphocytes % (A) 25 %; MCH 29.9 pg (25.0-35.0); MCHC 33.3 g/dL (31.0-37.0); Mean Platelet Volume 7.3; Monocytes # (A) 0.2 k/uL (0-1.0); Monocytes % (A) 4 %; Neutrophils # (A) 3.9 k/uL (1.3-7.7); Neutrophils % (A) 67 %; Platelet Count 269 k/uL (150-450); RBC 4.26 m/uL (3.80-5.40); RDW 14.2 % (11.5-15.5); WBC 5.8 k/uL (3.8-10.6)
[2020-10-08 11:59] LABS: Albumin 4.4 g/dL (3.5-5.0); Calcium 9.7 mg/dL (8.4-10.2); Magnesium 1.9 mg/dL (1.6-2.3); Potassium 4.7 mmol/L (3.5-5.1); Total Bilirubin 0.6 mg/dL (0.2-1.3); Total Protein 7.3 g/dL (6.3-8.2)
[2020-10-08 12:03] LABS: INR 0.9 (<1.2); Prothrombin Time 10.2 sec (9.0-12.0)
[2020-10-08 12:10] LABS: Partial Thromboplastin Time 21.7 sec (22.0-30.0)
[2020-10-08] MEDS ORDERED: SODIUM CHLORIDE 0.9% 500 ML 500 ML IV STA (12:33)
[2020-10-08] MEDS ORDERED: INSULIN REGULAR 100 UNIT/ML VIAL SQ ONE (12:34)
[2020-10-08] MEDS ORDERED: NITROGLYCERIN SL TABS 0.4 MG TAB SUBLINGUAL PRN (12:51)
--- NOTE | 2020-10-08 12:53 | XR ---
EXAMINATION TYPE: XR chest 2V DATE OF EXAM: 10/08/2020 COMPARISON: Chest x-ray 09/04/2020, CT 05/05/2019 HISTORY: Chest pain TECHNIQUE: Frontal and lateral views of the chest are obtained. FINDINGS: There is no focal air space opacity, pleural effusion, or pneumothorax seen. The cardiac silhouette size is within normal limits. Nodular density present left lower lobe is calcified and sta ble. The osseous structures are intact. IMPRESSION: No acute cardiopulmonary process. Old granulomatous disease.
[2020-10-08 14:15] LABS: Glucose,Whole Blood 482 mg/dL (75-99)
[2020-10-08] MEDS: SODIUM CHLORIDE 0.9% 1,000 ML IV SCH (15:51)
[2020-10-08] MEDS ORDERED: ONDANSETRON ODT 4 MG TAB PO PRN (16:40)
--- NOTE | 2020-10-08 17:06 | P.HPIM ---
History of Present Illness H&P Date: 10/08/20 Chief Complaint: Chest pain/angina, DKA, CAD, COPD, hypertension, hyperlipid emia, depression HISTORY OF PRESENT ILLNESS: 60-year-old mildly overweight female one of Dr. Elder's patient with past medical history of CAD post CABG history of COPD, history of type 2 diabetes on insulin, history of DVT venous thrombosis and previous history of rheumatoid arthritis along with chronic kidney disease and obstructive sleep apnea who presented to demurs department at [facility] today complaining of midsternal chest pain started 2 hours before presentation without any radiation was associated with mild nausea with some palpitation and lightheadedness it reminded her for symptom when she had her IA in the past. Patient had no radiation with her chest pain no cough or wheezes. Her first CK with troponin came back negative she had a slight EKG abnormality with T waves inversion. To my surprise her blood sugar came back in the high 500 with acetone positive the patient was diagnosed with DKA as well. Starting on insulin drip beside her management for the chest pain which is acute coronary syndrome at this point till her troponin is negative patient be admitted seeing cardiology testing including echocardiogram and intervention to be determined based on her finding in the next 24 hours. REVIEW OF SYSTEMS: Constitutional: No fever, no chills, no night sweats. No weight change. No weakness, fatigue or lethargy. No daytime sleepiness. EENT: No headache. No blurred vision or double vision, no loss of vision. No loss of Hearing, no ringing in the ears, no dizziness. No nasal drainage or congestion. No epistaxis. No sore throat. Lungs: Positive chest pain mild shortness of breath no cough or wheezes. Cardiovascular: Positive chest pain with angina, no lower extremity edema. No palpitations. No paroxysmal nocturnal dyspnea. No orthopnea. No lightheadedness or dizziness. No syncopal episodes. Abdominal: No abdominal pain. No nausea, vomiting. No diarrhea. No constipation. No bloody or tarry stools.. No loss of appetite. Genitourinary: No dysuria, increased frequency, urgency. No urinary retention. Musculoskeletal: Positive myalgia and muscle pain No muscle weakness, no gait dy sfunction, no frequent falls. No back pain. No neck pain. Integumentary: No wounds, no lesions. No rash or pruritus. No unusual bruising. No change in hair or nails. Neurologic: No aphasia. No facial droop. No change in mentation. No head injury. No headache. No paralysis. No paresthesia. Psychiatric: No depression. No anxiety. No mood swings. Endocrine: Significant hyperglycemia with mild weight change. SOCIAL HISTORY: Start smoking at age 8 smoked one to one and half pack a day for 50 years she start Chantix back in 2018 and cut down smoking patient has giving up alcohol for the last 35 years she is marijuana 1-2 times a month history of cocaine in the past has not used for the last 20 years. FAMILY HISTORY: Her father from IA at age 44, mother from breast cancer, patient had one sister with history of sleep apnea from metastasis take cancer to the liver had history of hepatitis C most likely had hepatocellular cancer, patient's brother from coronary disease and DVT and second brother from throat cancer. She has a daughter who at age 73 from massive IA and has another one who has diabetes. PHYSICAL EXAMINATION: Gen: This is 60-year-old mildly overweight who does not look in any respiratory distress and was free of chest pain at the time was seen. HEENT: Head is atraumatic, normocephalic. Pupils equal, round. Sclerae is anicteric. NECK: Supple. No JVD. No lymphadenopathy. No thyromegaly. LUNGS: Clear to auscultation. No wheezes or rhonchi. No intercostal retractions. No chest wall tenderness or soreness HEART: Regular rate and rhythm. S1, S2, no murmur. ABDOMEN: Soft. Bowel sounds are present. No masses. No tenderness. EXTREMITIES: Positive edema with significant arthritis both side. NEUROLOGICAL: Patient is awake, alert and oriented x3. Cranial nerves 2 through 12 are grossly intact. ASSESSMENT AND PLAN: 1. Chest pain and angina: Patient be admitted to the hospital will consult cardiology CK with troponin 2 be done echocardiogram will be order if any abnormal testing patient might need further intervention if not patient will continue conservative management can benefit from doing stress test eventually. 2. DKA with significantly elevated blood sugar in the 500 with positive ketone, continue patient on DKA protocol continue hydration and continue insulin drip we will turn back her insulin pump as soon as possible in the next 24 hours. 3. Significant coronary artery disease post PCI and stent placement still seeing cardiology regular basis. 4. Hypertension: Has been on lisinopril 10 mg a day. She should be on small dose of beta rolo unless she is very bradycardic. 5. Hyperlipidemia continue atorvastatin at 80 mg daily. 6. Type 2 diabetes on insulin pump and still on Actos 15 mg daily along with 7. History of COPD: Continue Ventolin along with the Qvar and on demand DuoNeb. 8. Hypothyroidism: Continue levothyroxine at 175 g daily. 9. Chronic kidney disease: Mostly stage II continue to watch kidney function CMP been on daily 10. Chronic depression: Continue patient Vrylar, along with Topamax and Effexor. 11. Diabetic neuropathy: Has been on gabapentin 300 mg twice a day. 12. COVID-19 testing. Was negative. 13 severe GERD/GI prophylaxis: Continue patient on pantoprazole 40 mg daily. 14 DVT prophylaxis: Patient will have early mobilization along with knee-high ALEXANDRE hose still on aspirin and Plavix currently. CODE STATUS: Full code Patient will be admitted to the hospital for a minimum of 2 night stay. Past Medical History Past Medical History: Coronary Artery Disease (CAD), Cancer, COPD, CVA/TIA, Diabetes Mellitus, Deep Vein Thrombosis (DVT), Eye Disorder, GERD/Reflux, Hearing Disorder / Deafness, Hyperlipidemia, Hypertension, Myocardial Infarction (IA), Renal Disease, Rheumatoid Arthritis (RA), Sleep Apnea/CPAP/BIPAP, Syncope, Thyroid Disorder Additional Past Medical History / Comment(s): 09/16/16 with SBO with surgery/possible septic emboli with cavitary lesions bilateral lungs. 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 coli 2015 requiring PICC line insertion for IV antibiotics, restless leg syndrome, peripheral neropathy. Hx bilateral glaucoma, hx syncope r/t low blood sugars. No CPAP use. IA- December 2019 Last Myocardial Infarction Date:: 2019 History of Any Multi-Drug Resistant Organisms: ESBL, MRSA, VRE Date of last positivie culture/infection: 05/07/16 ESBL, 05/15/16 VRE, MRSA 09/2017 - upper lip MDRO Source:: URINE E.COLI, EC GALLINARUM Past Surgical History: Appendectomy, Bowel Resection, Section, Heart Catheterization With Stent, Hernia Repair Additional Past Surgical History / Comment(s): 09/30 exploratory laparotomy, lysis of adhesions bowel resection d/t obstruction. Hx: repair incarcerated incisional hernia with abdominal washout, thyroidectomy(non functioning), heart cath 06/28 - 100% occluded, unable to stent, partial nephrectomy for left kidney renal cell carcinoma, PICC line insertion (since removed), colonoscopy, bilateral cataract removal with lens implants, 2 Sections.Stent placed 03/2020 Past Anesthesia/Blood Transfusion Reactions: No Reported Reaction Date of Last Stent Placement:: 04/06/2020 Past Psychological History: Anxiety, Depression Smoking Status: Current some day smoker Past Alcohol Use History: None Reported Past Drug Use History: Marijuana - Past Family History Sister(s) Family Medical History: Cancer, Sleep Apnea/CPAP/BIPAP Additional Family Medical History / Comment(s): Patient has one sister that from liver cancer, borderline DM, PAD, hep. c. Brother(s) Family Medical History: Cancer, Coronary Artery Disease (CAD), Deep Vein Thrombosis (DVT), Hyperlipidemia Additional Family Medical History / Comment(s): Patient has 1 brother with past ETOH, past drug abuse, DVT's. She has a second brother that has from throat cancer. Daughter(s) Family Medical History: Diabetes Mellitus, Myocardial Infarction (IA) Additional Family Medical History / Comment(s): Daughter at 23 yrs old from massive [place]. Father Family Medical History: Myocardial Infarction (IA) Additional Family Medical History / Comment(s): from mi at age 44 Mother Family Medical History: Cancer Additional Family Medical History / Comment(s): maeve breasts removed d/t cancer, hysterectomy d/t cancer. Mother from metastatic breast cancer. Medications and Allergies Home Medications Medication Instructions Recorded Confirmed Type Venlafaxine HCl [Venlafaxine HCl 225 mg PO DAILY 10/21/16 10/08/20 History ER] Loratadine [Claritin] 10 mg PO DAILY 03/29/19 10/08/20 History Aspirin 81 mg PO DAILY 12/23/19 10/08/20 History Atorvastatin [Lipitor] 80 mg PO HS 12/23/19 10/08/20 History Beclomethasone Dip 80 Mcg/Puff 2 puff INHALATION RT-BID 12/23/19 10/08/20 History [Qvar 80 mcg] Pioglitazone [Actos] 15 mg PO DAILY 12/23/19 10/08/20 History Topiramate [Topamax] 50 mg PO HS 12/23/19 10/08/20 History Meclizine [Antivert] 12.5 mg PO DAILY 04/06/20 10/08/20 History Nitroglycerin Sl Tabs [Nitrostat] 0.4 mg SL Q5M PRN 04/06/20 10/08/20 History Pantoprazole Sodium [Protonix] 40 mg PO DAILY 04/06/20 10/08/20 History Clopidogrel [Plavix] 75 mg PO DAILY #30 tab 04/07/20 10/08/20 Rx Gabapentin [Neurontin] 300 mg PO BID cap 04/07/20 10/08/20 Rx Cariprazine HCl [Vraylar] 1.5 mg PO DAILY 05/13/20 10/08/20 History Ergocalciferol [Vitamin D2 (1250 1,250 mcg PO WE 10/08/20 10/08/20 History Mcg = 21925 Iu)] Insulin Aspart (For Pump) [NovoLOG 0.01 unit SQ-PUMP CONTINUOUS 10/08/20 10/08/20 History (For Pump)] Levothyroxine Sodium [Synthroid] 175 mcg PO DAILY 10/08/20 10/08/20 History Ondansetron Odt [Zofran Odt] 4 mg PO Q8H PRN 10/08/20 10/08/20 History lisinopriL [Zestril] 10 mg PO DAILY 10/08/20 10/08/20 History Allergies Allergy/AdvReac Type Severity Reaction Status Date / Time grass pollen Allergy Unknown Verified 10/08/20 12:10 latex Allergy Rash/Hives Verified 10/08/20 12:10 Sulfa (Sulfonamide Allergy Rash/Hives/ Verified 10/08/20 12:10 Antibiotics) Swelling venom-honey bee Allergy Anaphylaxis Verified 10/08/20 12:10 morphine AdvReac Decreased Verified 10/08/20 12:10 Blood Pressure prochlorperazine edisylate AdvReac Vomiting Verified 10/08/20 12:10 [From Compazine] Physical Exam Vitals: Vital Signs Temp Pulse Resp BP Pulse Ox 10/08/20 14:20 71 18 150/96 100 10/08/20 11:36 75 16 134/79 98 10/08/20 11:25 74 18 149/83 98 10/08/20 10:53 97.9 F 86 16 129/91 98 Intake and Output 10/08/20 10/08/20 10/08/20 06:59 14:59 22:59 Other: Weight 78.018 kg Results CBC & Chem 7: 10/08/20 11:35 10/08/20 11:35 Labs: Abnormal Lab Results - Last 24 Hours (Table) 10/08/20 10/08/20 10/08/20 Range/Units 11:35 11:35 14:13 APTT 21.7 L (22.0-30.0) sec Sodium 132 L (137-145) mmol/L BUN 23 H (7-17) mg/dL Glucose 590 H* (74-99) mg/dL POC Glucose (mg/dL) 482 H (75-99) mg/dL Alkaline Phosphatase 156 H (38-126) U/L
[2020-10-08 17:20] LABS: Glucose,Whole Blood 291 mg/dL (75-99)
[2020-10-08] MEDS: INSULIN ASPART (NovoLOG) 100 UNIT/ML VIAL SQ SCH ×2 (17:25→21:47)
[2020-10-08] MEDS: ATORVASTATIN 80 MG TAB PO SCH (20:15)
[2020-10-08] MEDS: TOPIRAMATE 25 MG TAB PO SCH (20:15)
[2020-10-08] MEDS: NITROGLYCERIN OINT 1 INCH/GM PACKET TOPICAL SCH (20:15)
[2020-10-08] MEDS: GABAPENTIN 300 MG CAP PO SCH (20:15)
[2020-10-08] MEDS: FLUTICASONE 110 MCG INHALER INHALATION SCH (20:47)
[2020-10-08 21:17] LABS: Glucose,Whole Blood 198 mg/dL (75-99)
[2020-10-09] MEDS: NITROGLYCERIN OINT 1 INCH/GM PACKET TOPICAL SCH ×2 (03:46→07:10)
[2020-10-09 03:57] LABS: Glucose,Whole Blood 252 mg/dL (75-99)
[2020-10-09 05:34] LABS: Cholesterol 211 mg/dL (<200); HDL Cholesterol 57 mg/dL (40-60); LDL Cholesterol,Calculated 104 mg/dL (0-99); Triglycerides 251 mg/dL (<150)
[2020-10-09] MEDS: LEVOTHYROXINE 88 MCG TAB PO SCH (06:11)
[2020-10-09] MEDS: SODIUM CHLORIDE 0.9% 1,000 ML IV SCH ×2 (06:12→20:12)
[2020-10-09] MEDS: PANTOPRAZOLE 40 MG TABLET PO SCH (06:12)
[2020-10-09 07:03] LABS: Glucose,Whole Blood 306 mg/dL (75-99)
[2020-10-09] MEDS: INSULIN ASPART (NovoLOG) 100 UNIT/ML VIAL SQ SCH ×5 (07:07→21:19)
[2020-10-09] MEDS: FLUTICASONE 110 MCG INHALER INHALATION SCH ×2 (08:59→20:49)
[2020-10-09] MEDS ORDERED: ASPIRIN 325 MG TAB PO SCH (09:00)
[2020-10-09] MEDS: ISOSORBIDE MONONITRATE ER 30 MG TAB.ER.24H PO SCH (10:07)
[2020-10-09] MEDS: ASPIRIN 81 MG PO SCH (10:07)
[2020-10-09] MEDS: LORATADINE 10 MG TAB PO SCH (10:08)
[2020-10-09] MEDS: CLOPIDOGREL 75 MG TAB PO SCH (10:08)
[2020-10-09] MEDS: NON FORMULARY DRUG (Cariprazine Hcl [Vraylar] 1.5 MG Capsule) PO SCH (10:08)
[2020-10-09] MEDS: GABAPENTIN 300 MG CAP PO SCH ×2 (10:08→20:17)
[2020-10-09] MEDS: MECLIZINE 12.5 MG TAB PO SCH (10:09)
[2020-10-09] MEDS: PIOGLITAZONE 15 MG TAB PO SCH (10:10)
[2020-10-09] MEDS: VENLAFAXINE HCL ER 75 MG CAP PO SCH (10:10)
[2020-10-09] MEDS ORDERED: INSULIN DETEMIR (LEVEMIR) 100 UNIT/ML SYR SQ SCH (10:30)
--- NOTE | 2020-10-09 11:26 | ECHOF ---
Referral Reason:cad MEASUREMENTS -------- HEIGHT: 160.0 cm WEIGHT: 78.0 kg BP: IVSd: 1.2 cm (0.6 - 1.1) LVIDd: 4.6 cm (3.9 - 5.3) LVPWd: 1.4 cm (0.6 - 1.1) IVSs: 1.6 cm LVIDs: 3.2 cm LVPWs: 1.8 cm LA Diam: 3.2 cm (2.7 - 3.8) LAESV Index (A-L): 37.43 ml/m Ao Diam: 3.0 cm (2.0 - 3.7) AV Cusp: 2.2 cm (1.5 - 2.6) MV EXCURSION: 17.918 mm (> 18.000) MV EF SLOPE: 78 mm/s (70 - 150) EPSS: 0.9 cm MV E Manoj: 0.40 m/s MV DecT: 254 ms MV A Manoj: 0.77 m/s MV E/A Ratio: 0.53 RAP: 5.00 mmHg RVSP: 18.74 mmHg FINDINGS -------- Sinus rhythm. This was a technically adequate study. The left ventricular size is normal. There is mild concentric left ventricular hypertrophy. Overa ll left ventricular systolic function is mildly impaired with, an EF between 45 - 50 %. Apical ante rior LV wall motion is hypokinetic. Apical septum LV wall motion is hypokinetic. The right ventricle is normal in size. LA is moderately dilated 34-39 ml/m2 The right atrial size is normal. The aortic valve is trileaflet, and appears structurally normal. No aortic stenosis or regurgitation. The mitral valve is normal. Mild mitral regurgitation is present. The tricuspid valve appears structurally normal. Mild tricuspid regurgitation present. Right vent ricular systolic pressure is normal at < 35 mmHg. There is no pulmonic regurgitation present. The aortic root size is normal. There is no pericardial effusion. CONCLUSIONS -------- 1. There is mild concentric left ventricular hypertrophy. 2. Overall left ventricular systolic function is mildly impaired with, an EF between 45 - 50 %. 3. Apical anterior LV wall motion is hypokinetic. 4. Apical septum LV wall motion is hypokinetic. 5. LA is moderately dilated 34-39 ml/m2 6. The aortic valve is trileaflet, and appears structurally normal. No aortic stenosis or regurgitati on. 7. Mild mitral regurgitation is present. 8. Mild tricuspid regurgitation present. 9. There is no pericardial effusion. [employer] OFFICER: Teresa Gutierrez RDCS
[2020-10-09 12:21] LABS: Glucose,Whole Blood 410 mg/dL (75-99)
[2020-10-09] MEDS ORDERED: INSULIN ASPART (NovoLOG) 100 UNIT/ML VIAL SQ SCH (12:30)
--- NOTE | 2020-10-09 12:33 | CONS ---
CONSULTATION Mrs. Kenyon is a 60-year-old female with known history of coronary artery disease, diabetes, hyperlipidemia and chronic tobacco use, who presented with symptoms of chest discomfort. The patient has underwent percutaneous revascularization of her LAD by Dr. Kurtz in March of last year. She follows on a regular basis with Dr. Sierra and has underwent a myocardial perfusion imaging on September 11 of this year that revealed a fixed apical wall defect with no evidence of inducible ischemia. Her discomfort occurred yesterday at rest, worse with deep breathing as well as with coughing. The patient was noted to have an elevated blood sugar on presentation with evidence of positive acetone consistent with DKA. She denies any change in her breathing, she has chronic dyspnea on exertion related to her chronic tobacco use. She has no peripheral edema. No PND or orthopnea. She has occasional dizziness. No palpitation. Her coronary risk factors are noted for the hypertension, hyperlipidemia, diabetes mellitus, and smoking. MEDICATION: Her medications at home include lisinopril 10 mg daily, venlafaxine, Topamax, Actos 15 mg daily, Protonix, Antivert, insulin, Plavix 75 mg daily, Lipitor 80 mg daily, aspirin once a day in addition to Qvar. REVIEW OF SYSTEMS: RESPIRATORY SYSTEM: She has dyspnea on exertion with cough reproducing the pain. GI SYSTEM: She denies any nausea and vomiting. No recent GI bleeding. SYSTEM: No dysuria or hematuria. NERVOUS SYSTEM: No history of seizure. She had a prior history of stroke. PHYSICAL EXAMINATION: She is a 60-year-old female, alert, oriented, no apparent distress. VITAL SIGNS: Blood pressure running in the 130s to 140s with a heart in the 80s. HEAD: Normocephalic. Eyes sclerae anicteric. NECK: Good carotid upstroke. No bruit. No jugular venous distention. LUNGS: Decreased air exchange. HEART: Regular rate and rhythm, S1, S2. No S3 with systolic murmur at the base. No diastolic murmur. No rub. CHEST WALL: With chest wall tenderness reproducing the pain. ABDOMEN: Soft, nontender. Positive bowel sounds. No organomegaly. EXTREMITIES: No edema. Intact distal pulses. LAB DATA: Lab data revealed a cholesterol of 211, LDL of 104. Troponin of 0.17, 0.023 and 0.22. Her blood sugar on admission was 590. Her BUN and creatinine are 23 and 0.95. Her hemoglobin is 12.8. EKG revealed a sinus mechanism with normal axis and intervals, evidence of left ventricular hypertrophy with repolarization changes, noted in the past. Her chest x- ray shows no acute infiltrate. IMPRESSION: 1. Diabetic ketoacidosis. 2. Chest discomfort, atypical for ischemic heart disease probably noncardiac, reproducible by palpation in the breathing consistent with noncardiac etiology. 3. History of coronary artery disease status post stenting of the left anterior descending. 4. Hypertension. 5. Hyperlipidemia. 6. Diabetes mellitus. RECOMMENDATION: From the cardiac standpoint, I will obtain echocardiogram with Doppler. If there is no new segmental wall motion abnormality, the patient should be able to be discharged home and followed as an outpatient with Dr. Sierra. Thank you for this consult. We will follow with you. MMODL / IJN: [id number] /
--- NOTE | 2020-10-09 13:28 | P.PN ---
Subjective Progress Note Date: 10/09/20 HISTORY OF PRESENT ILLNESS: 60-year-old mildly overweight female one of Dr. Elder's patient with past medical history of CAD post CABG history of COPD, history of type 2 diabetes on insulin, history of DVT venous thrombosis and previous history of rheumatoid arthritis along with chronic kidney disease and obstructive sleep apnea who presented to demurs department at [facility] today complaining of midsternal chest pain started 2 hours before presentation without any radiation was associated with mild nausea with some palpitation and lightheadedness it reminded her for symptom when she had her MO in the past. Patient had no radiation with her chest pain no cough or wheezes. Her first CK with troponin came back negative she had a slight EKG abnormality with T waves inversion. To my surprise her blood sugar came back in the high 500 with acetone positive the patient was diagnosed with DKA as well. Starting on insulin drip beside her management for the chest pain which is acute coronary syndrome at this point till her troponin is negative patient be admitted seeing cardiology testing including echocardiogram and intervention to be determined based on her finding in the next 24 hours. 10/09: No further chest pain or angina, blood sugar still quite bed elevated patient was started on insulin long-acting and bolus seems to bring the sugar down compared to yesterday. Patient had insulin pump she took it off before coming to the hospital which made the blood sugar much higher so far. Waiting for cardiology consult to decide on further plan patient apparently had a stress test with Dr. Cowan not too long ago and echocardiogram was done last admission. There is an order for echo to be done today her troponin continued to be negative at this point. REVIEW OF SYSTEMS: Constitutional: No fever, no chills, no night sweats. No weight change. No weakness, fatigue or lethargy. No daytime sleepiness. EENT: No headache. No blurred vision or double vision, no loss of vision. No loss of Hearing, no ringing in the ears, no dizziness. No nasal drainage or congestion. No epistaxis. No sore throat. Lungs: Positive chest pain mild shortness of breath no cough or wheezes. Cardiovascular: Positive chest pain with angina, no lower extremity edema. No palpitations. No paroxysmal nocturnal dyspnea. No orthopnea. No li ghtheadedness or dizziness. No syncopal episodes. Abdominal: No abdominal pain. No nausea, vomiting. No diarrhea. No constipation. No bloody or tarry stools.. No loss of appetite. Genitourinary: No dysuria, increased frequency, urgency. No urinary retention. Musculoskeletal: Positive myalgia and muscle pain No muscle weakness, no gait dysfunction, no frequent falls. No back pain. No neck pain. Integumentary: No wounds, no lesions. No rash or pruritus. No unusual bruising. No change in hair or nails. Neurologic: No aphasia. No facial droop. No change in mentation. No head injury. No headache. No paralysis. No paresthesia. Psychiatric: No depression. No anxiety. No mood swings. Endocrine: Significant hyperglycemia with mild weight change. PHYSICAL EXAMINATION: Gen: This is 60-year-old mildly overweight who does not look in any respiratory distress and was free of chest pain at the time was seen. HEENT: Head is atraumatic, normocephalic. Pupils equal, round. Sclerae is anicteric. NECK: Supple. No JVD. No lymphadenopathy. No thyromegaly. LUNGS: Clear to auscultation. No wheezes or rhonchi. No intercostal retractions. No chest wall tenderness or soreness HEART: Regular rate and rhythm. S1, S2, no murmur. ABDOMEN: Soft. Bowel sounds are present. No masses. No tenderness. EXTREMITIES: Positive edema with significant arthritis both side. NEUROLOGICAL: Patient is awake, alert and oriented x3. Cranial nerves 2 through 12 are grossly intact. ASSESSMENT AND PLAN: 1. Chest pain and angina: Patient be admitted to the hospital will consult cardiology CK with troponin 2 be done echocardiogram will be order if any abnormal testing patient might need further intervention if not patient will continue conservative management can benefit from doing stress test eventually. Troponin is negative so far pending on her echo in the consult from cardiology decided further management. 2. DKA with significantly elevated blood sugar in the 500 with positive ketone, continue patient on DKA protocol continue hydration and continue insulin drip we will turn back her insulin pump as soon as possible in the next 24 hours. Patient will be on Levemir 10 units at breakfast and dinner time along with NovoLog 8 minute before meals meals plus sliding scale titrate insulin to keep blood sugar under control. 3. Significant coronary artery disease post PCI and stent placement still seeing cardiology regular basis. 4. Hypertension: Has been on lisinopril 10 mg a day. She should be on small dose of beta rolo unless she is very bradycardic. 5. Hyperlipidemia continue atorvastatin at 80 mg daily. 6. Type 2 diabetes on insulin pump and still on Actos 15 mg daily along with 7. History of COPD: Continue Ventolin along with the Qvar and on demand DuoNeb. 8. Hypothyroidism: Continue levothyroxine at 175 g daily. 9. Chronic kidney disease: Mostly stage II continue to watch kidney function CMP been on daily 10. Chronic depression: Continue patient Vrylar, along with Topamax and Effexor. 11. Diabetic neuropathy: Has been on gabapentin 300 mg twice a day. 12. COVID-19 testing. Was negative. 13 severe GERD/GI prophylaxis: Continue patient on pantoprazole 40 mg daily. 14 DVT prophylaxis: Patient will have early mobilization along with knee-high ALEXANDRE hose still on aspirin and Plavix currently. Discharge planning: If no intervention required by cardiology blood sugars better by tomorrow morning patient might be able to go home. If her echo shows any wall motion abnormality patient might require intervention. Patient will be going back on her insulin pump as soon as she leaves the hospit al refused to bring her insulin pump with her to the hospital this point. Objective - Vital Signs Vital signs: Vital Signs Temp 97.6 F 10/09/20 03:00 Pulse 71 10/09/20 03:00 Resp 18 10/09/20 03:00 BP 142/61 10/09/20 03:00 Pulse Ox 100 10/09/20 03:00 Intake & Output 10/08/20 10/08/20 10/09/20 06:59 18:59 06:59 Weight 78.018 kg - Labs CBC & Chem 7: 10/08/20 11:35 10/08/20 11:35 Labs: Abnormal Lab Results - Last 24 Hours (Table) 10/08/20 10/08/20 10/08/20 Range/Units 11:35 11:35 14:13 APTT 21.7 L (22.0-30.0) sec Sodium 132 L (137-145) mmol/L BUN 23 H (7-17) mg/dL Glucose 590 H* (74-99) mg/dL POC Glucose (mg/dL) 482 H (75-99) mg/dL Alkaline Phosphatase 156 H (38-126) U/L Triglycerides (<150) mg/dL Cholesterol (<200) mg/dL LDL Cholesterol, Calc (0-99) mg/dL 10/08/20 10/08/20 10/09/20 Range/Units 17:18 21:16 03:55 APTT (22.0-30.0) sec Sodium (137-145) mmol/L BUN (7-17) mg/dL Glucose (74-99) mg/dL POC Glucose (mg/dL) 291 H 198 H 252 H (75-99) mg/dL Alkaline Phosphatase (38-126) U/L Triglycerides (<150) mg/dL Cholesterol (<200) mg/dL LDL Cholesterol, Calc (0-99) mg/dL 10/09/20 Range/Units 04:26 APTT (22.0-30.0) sec Sodium (137-145) mmol/L BUN (7-17) mg/dL Glucose (74-99) mg/dL POC Glucose (mg/dL) (75-99) mg/dL Alkaline Phosphatase (38-126) U/L Triglycerides 251 H (<150) mg/dL Cholesterol 211 H (<200) mg/dL LDL Cholesterol, Calc 104 H (0-99) mg/dL
[2020-10-09] MEDS: lisinopriL 10 MG TAB PO SCH (14:28)
[2020-10-09 17:17] LABS: Glucose,Whole Blood 358 mg/dL (75-99)
[2020-10-09] MEDS ORDERED: Acetaminophen-Codeine 300-30mg TAB PO PRN (17:36)
[2020-10-09 20:17] LABS: Glucose,Whole Blood 243 mg/dL (75-99)
[2020-10-09] MEDS: ATORVASTATIN 80 MG TAB PO SCH (20:17)
[2020-10-09] MEDS: TOPIRAMATE 25 MG TAB PO SCH (20:17)
[2020-10-09] MEDS: INSULIN DETEMIR (LEVEMIR) 100 UNIT/ML SYR SQ SCH (21:19)
[2020-10-10] MEDS: LEVOTHYROXINE 88 MCG TAB PO SCH (05:49)
[2020-10-10 07:55] VITALS: BP 127/81; PULSE 80; RESP 18; TEMP 97.7
[2020-10-10] MEDS: LORATADINE 10 MG TAB PO SCH (08:01)
[2020-10-10] MEDS: lisinopriL 10 MG TAB PO SCH (08:01)
[2020-10-10] MEDS: GABAPENTIN 300 MG CAP PO SCH (08:01)
[2020-10-10] MEDS: VENLAFAXINE HCL ER 75 MG CAP PO SCH (08:01)
[2020-10-10] MEDS: CLOPIDOGREL 75 MG TAB PO SCH (08:01)
[2020-10-10] MEDS: ASPIRIN 81 MG PO SCH (08:01)
[2020-10-10] MEDS: ISOSORBIDE MONONITRATE ER 30 MG TAB.ER.24H PO SCH (08:01)
[2020-10-10] MEDS: PANTOPRAZOLE 40 MG TABLET PO SCH (08:01)
[2020-10-10] MEDS: NON FORMULARY DRUG (Cariprazine Hcl [Vraylar] 1.5 MG Capsule) PO SCH (08:02)
[2020-10-10] MEDS: MECLIZINE 12.5 MG TAB PO SCH (08:02)
[2020-10-10] MEDS: FLUTICASONE 110 MCG INHALER INHALATION SCH (08:16)
[2020-10-10 08:19] LABS: Glucose,Whole Blood 315 mg/dL (75-99)
[2020-10-10] MEDS: INSULIN ASPART (NovoLOG) 100 UNIT/ML VIAL SQ SCH ×2 (09:24→09:25)
[2020-10-10] MEDS: INSULIN DETEMIR (LEVEMIR) 100 UNIT/ML SYR SQ SCH (09:25)
[2020-10-10] MEDS: PIOGLITAZONE 15 MG TAB PO SCH (09:25)
--- NOTE | 2020-10-10 12:41 | P.PN ---
Subjective This is a 60-year-old female past medical history significant for coronary artery disease, diabetes mellitus, dyslipidemia and chronic nicotine dependence. She follows in the office with Dr. Sierra. She is seen and examined sitting up in no acute distress. She has no symptoms of chest discomfort, shortness of breath, palpitations or dizziness. Blood pressure 127/81 heart rate 88 afebrile maintaining oxygen saturation on room air. Echocardiogram obtained reveals mildly impaired LV systolic function with ejection fraction 45- 50% with apical anterior septal wall motion hypokinesia. Consistent with previous echocardiograms with no changes noted. GENERAL: Well-appearing, well-nourished and in no acute distress. NECK: Supple without JVD or thyromegaly. LUNGS: Breath sounds clear to auscultation bilaterally. Respiration equal and unlabored. No wheezes, rales or rhonchi. HEART: Regular rate and rhythm with systolic ejection murmur at the base, no rubs or gallops. S1 and S2 heard. EXTREMITIES: Normal range of motion, no edema. No clubbing or cyanosis. Peripheral pulses intact. ASSESSMENT Diabetic ketoacidosis Chest pain, atypical Coronary artery disease status post PCI of the LAD Hypertension Dyslipidemia Diabetes mellitus PLAN Stable for discharge from a cardiac perspective. Follow-up with Dr. Sierra in the office in 2-3 weeks. Nurse Practitioner note has been reviewed, I agree with a documented findings and plan of care. Patient was seen and examined. Objective - Vital Signs Vital signs: Vital Signs Temp 97.7 F 10/10/20 07:00 Pulse 80 10/10/20 08:00 Resp 18 10/10/20 08:00 BP 127/81 10/10/20 07:00 Pulse Ox 99 10/10/20 07:00 Intake & Output 10/09/20 10/10/20 10/10/20 18:59 06:59 18:59 Intake Total 200 800 Balance 200 800 Intake: IV 200 Sodium Chloride 0.9% 1, 200 000 ml @ 100 mls/hr IV . Q10H DURGA Rx#:[id number] Intake, IV Titration 800 Amount Sodium Chloride 0.9% 1, 800 000 ml @ 100 mls/hr IV . Q10H DURGA Rx#:[id number] Other: Voiding Method Toilet Toilet Toilet # Voids 2 3 - Labs CBC & Chem 7: 10/08/20 11:35 10/08/20 11:35 Labs: Abnormal Lab Results - Last 24 Hours (Table) 10/09/20 10/09/20 10/10/20 Range/Units 17:15 20:16 07:02 POC Glucose (mg/dL) 358 H 243 H 315 H (75-99) mg/dL
[2020-10-11] MEDS ORDERED: ERGOCALCIFEROL 1,250 MCG (50,000 IU) CAPSULE PO SCH (09:00)
== END 2020-10-10 11:00 | disposition home or self-care (01) ==
LOC: EC 10:52 → 6NMEDSUR 12:51
PROVIDERS: ADMIT Internal Medicine Geriatric Medicine; ATTEND Internal Medicine Geriatric Medicine
DX: I25.119 Atherosclerotic heart disease of native coronary artery with unspecified angina pectoris (principal); E11.10 Type 2 diabetes mellitus with ketoacidosis without coma; I12.9 Hypertensive chronic kidney disease with stage 1 through stage 4 chronic kidney disease, or unspecified chronic kidney disease; E11.22 Type 2 diabetes mellitus with diabetic chronic kidney disease; N18.2 Chronic kidney disease, stage 2 (mild); E11.40 Type 2 diabetes mellitus with diabetic neuropathy, unspecified; R00.1 Bradycardia, unspecified; E78.5 Hyperlipidemia, unspecified; J44.9 Chronic obstructive pulmonary disease, unspecified; E89.0 Postprocedural hypothyroidism; K21.9 Gastro-esophageal reflux disease without esophagitis; G47.33 Obstructive sleep apnea (adult) (pediatric); I25.2 Old myocardial infarction; F32.9 Major depressive disorder, single episode, unspecified; F41.9 Anxiety disorder, unspecified; F17.200 Nicotine dependence, unspecified, uncomplicated; G25.81 Restless legs syndrome; H91.90 Unspecified hearing loss, unspecified ear; M06.9 Rheumatoid arthritis, unspecified; E66.3 Overweight; F12.90 Cannabis use, unspecified, uncomplicated; Z79.890 Hormone replacement therapy; Z79.02 Long term (current) use of antithrombotics/antiplatelets; Z79.82 Long term (current) use of aspirin; Z79.4 Long term (current) use of insulin; Z79.899 Other long term (current) drug therapy; Z88.5 Allergy status to narcotic agent; Z91.040 Latex allergy status; J30.1 Allergic rhinitis due to pollen; Z91.030 Bee allergy status; Z88.2 Allergy status to sulfonamides; Z88.8 Allergy status to other drugs, medicaments and biological substances; Z20.822 Contact with and (suspected) exposure to COVID-19; Z98.891 History of uterine scar from previous surgery; Z86.14 Personal history of Methicillin resistant Staphylococcus aureus infection; Z95.5 Presence of coronary angioplasty implant and graft; Z95.1 Presence of aortocoronary bypass graft; Z90.89 Acquired absence of other organs; Z96.41 Presence of insulin pump (external) (internal); Z96.1 Presence of intraocular lens; Z86.19 Personal history of other infectious and parasitic diseases; Z98.41 Cataract extraction status, right eye; Z98.42 Cataract extraction status, left eye; Z90.5 Acquired absence of kidney; Z86.59 Personal history of other mental and behavioral disorders; Z86.73 Personal history of transient ischemic attack (TIA), and cerebral infarction without residual deficits; Z85.528 Personal history of other malignant neoplasm of kidney; Z86.718 Personal history of other venous thrombosis and embolism; Z82.49 Family history of ischemic heart disease and other diseases of the circulatory system; Z83.3 Family history of diabetes mellitus; Z80.0 Family history of malignant neoplasm of digestive organs; Z80.8 Family history of malignant neoplasm of other organs or systems; Z80.3 Family history of malignant neoplasm of breast
CPT/HCPCS: 93005 ×2; 96360; 96361 ×2; 99285; 36415; 94640 ×4; 93306; 80061; 80053; 82009; 83735; 84484; 85025; 85610; 85730; 87635; 71046; G0378 ×3

== ENCOUNTER 2020-10-27 12:29 | Emergency (ER) | payer OTHER ==
[2020-10-27 12:33] VITALS: TEMP 97.8
[2020-10-27] MEDS ORDERED: MECLIZINE 25 MG TAB PO STA (12:58)
[2020-10-27] MEDS ORDERED: DIAZEPAM 5 MG/ML 2 ML INJ IVP STA (12:58)
--- NOTE | 2020-10-27 13:02 | ED ---
General Adult HPI - General Chief complaint: Dizziness Stated complaint: dizziness, nausea Time Seen by Provider: 10/27/20 12:30 Source: patient, RN notes reviewed, old records reviewed Mode of arrival: wheelchair Limitations: no limitations - History of Present Illness Initial comments: This is a 6-year-old female who states when she woke up this morning he got out of bed the room was spinning and she became very dizzy. Patient states this continues Tylenol. Patient states if she sits still the symptoms are much improved. Patient states anytime she moves her head the symptoms are worsened. Patient states she's not experienced this in the past. Patient denies any headache. Patient denies any numbness weakness. Patient denies any new deafn ess or tinnitus. Patient denies any chest pain palpitations difficulty breathing or shortness of breath. Patient denies any abdominal pain patient denies nausea vomiting diarrhea. Patient denies any recent fever chills or cough. Patient states when she was walking she feels slightly off balance. - Related Data Home Medications Medication Instructions Recorded Confirmed Venlafaxine HCl [Venlafaxine HCl 225 mg PO DAILY 10/21/16 10/27/20 ER] Loratadine [Claritin] 10 mg PO DAILY 03/29/19 10/27/20 Aspirin 81 mg PO DAILY 12/23/19 10/27/20 Atorvastatin [Lipitor] 80 mg PO HS 12/23/19 10/27/20 Beclomethasone Dip 80 Mcg/Puff 2 puff INHALATION RT-BID 12/23/19 10/27/20 [Qvar 80 mcg] Pioglitazone [Actos] 15 mg PO DAILY 12/23/19 10/27/20 Topiramate [Topamax] 50 mg PO HS 12/23/19 10/27/20 Meclizine [Antivert] 12.5 mg PO DAILY 04/06/20 10/27/20 Nitroglycerin Sl Tabs [Nitrostat] 0.4 mg SL Q5M PRN 04/06/20 10/27/20 Pantoprazole Sodium [Protonix] 40 mg PO DAILY 04/06/20 10/27/20 Cariprazine HCl [Vraylar] 1.5 mg PO DAILY 05/13/20 10/27/20 Ergocalciferol [Vitamin D2 (1250 1,250 mcg PO WE 10/08/20 10/27/20 Mcg = 19375 Iu)] Insulin Aspart (For Pump) [NovoLOG 0.01 unit SQ-PUMP CONTINUOUS 10/08/20 10/27/20 (For Pump)] Levothyroxine Sodium [Synthroid] 175 mcg PO DAILY 10/08/20 10/27/20 Ondansetron Odt [Zofran ODT] 4 mg PO Q8H PRN 10/08/20 10/27/20 lisinopriL [Zestril] 10 mg PO DAILY 10/08/20 10/27/20 Amitriptyline HCl [Elavil] 25 mg PO HS PRN 10/27/20 10/27/20 Butalb/APAP/Caff 50-325-40Mg 1 tab PO Q12H PRN 10/27/20 10/27/20 [Fioricet 50-325-40] Previous Rx's Medication Instructions Recorded Clopidogrel [Plavix] 75 mg PO DAILY #30 tab 04/07/20 Gabapentin [Neurontin] 300 mg PO BID cap 04/07/20 Isosorbide Mononitrate ER [Imdur] 30 mg PO DAILY #30 tab.er.24h 10/10/20 Meclizine [Antivert] 25 mg PO TID #20 tab 10/27/20 Allergies Allergy/AdvReac Type Severity Reaction Status Date / Time grass pollen Allergy Unknown Verified 10/27/20 14:36 latex Allergy Rash/Hives Verified 10/27/20 14:36 Sulfa (Sulfonamide Allergy Rash/Hives/ Verified 10/27/20 14:36 Antibiotics) Swelling venom-honey bee Allergy Anaphylaxis Verified 10/27/20 14:36 morphine AdvReac Decreased Verified 10/27/20 14:36 Blood Pressure prochlorperazine edisylate AdvReac Vomiting Verified 10/27/20 14:36 [From Compazine] Review of Systems ROS Statement: Those systems with pertinent positive or pertinent negative responses have been documented in the HPI. ROS Other: All systems not noted in ROS Statement are negative. Past Medical History Past Medical History: Coronary Artery Disease (CAD), Cancer, COPD, CVA/TIA, Diabetes Mellitus, Deep Vein Thrombosis (DVT), Eye Disorder, GERD/Reflux, Hearing Disorder / Deafness, Hyperlipidemia, Hypertension, Myocardial Infarction ([place]), Renal Disease, Rheumatoid Arthritis (RA), Sleep Apnea/CPAP/BIPAP, Syncope, Thyroid Disorder Additional Past Medical History / Comment(s): 09/16/16 with SBO with surgery/possible septic emboli with cavitary lesions bilateral lungs. 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 coli Nov2015 requiring PICC line insertion for IV antibiotics, restless leg syndrome, peripheral neropathy. Hx bilateral glaucoma, hx syncope r/t low blood sugars. No CPAP use. [place]- December 2019 Last Myocardial Infarction Date:: 2019 History of Any Multi-Drug Resistant Organisms: ESBL, MRSA, VRE Date of last positivie culture/infection: 05/07/16 ESBL, 05/15/16 VRE, MRSA 09/2017 - upper lip MDRO Source:: URINE E.COLI, EC GALLINARUM Past Surgical History: Appendectomy, Bowel Resection, Section, Heart Catheterization With Stent, Hernia Repair Additional Past Surgical History / Comment(s): 09/30 exploratory laparotomy, lysis of adhesions bowel resection d/t obstruction. Hx: repair incarcerated incisional hernia with abdominal washout, thyroidectomy(non functioning), heart cath 06/28 - 100% occluded, unable to stent, partial nephrectomy for left kidney renal cell carcinoma, PICC line insertion (since removed), colonoscopy, bilateral cataract removal with lens implants, 2 Sections.Stent placed 03/2020 Past Anesthesia/Blood Transfusion Reactions: No Reported Reaction Date of Last Stent Placement:: 04/06/2020 Past Psychological History: Anxiety, Depression Smoking Status: Former smoker Past Alcohol Use History: None Reported Past Drug Use History: Marijuana - Past Family History Sister(s) Family Medical History: Cancer, Sleep Apnea/CPAP/BIPAP Additional Family Medical History / Comment(s): Patient has one sister that from liver cancer, borderline DM, PAD, hep. c. Brother(s) Family Medical History: Cancer, Coronary Artery Disease (CAD), Deep Vein Thrombosis (DVT), Hyperlipidemia Additional Family Medical History / Comment(s): Patient has 1 brother with past ETOH, past drug abuse, DVT's. She has a second brother that has from throat cancer. Daughter(s) Family Medical History: Diabetes Mellitus, Myocardial Infarction ([place]) Additional Family Medical History / Comment(s): Daughter at 23 yrs old from massive VA. Father Family Medical History: Myocardial Infarction ([place]) Additional Family Medical History / Comment(s): from mi at age 44 Mother Family Medical History: Cancer Additional Family Medical History / Comment(s): maeve breasts removed d/t cancer, hysterectomy d/t cancer. Mother from metastatic breast cancer. General Exam - General Exam Comments Initial Comments: GENERAL: Patient is well-developed and well-nourished. Patient is nontoxic and well- hydrated and is in mild distress. ENT: Neck is soft and supple. No significant lymphadenopathy is noted. Oropharynx is clear. Moist mucous membranes. Neck has full range of motion without eliciting any pain. EYES: The sclera were anicteric and conjunctiva were pink and moist. Extraocular movements were intact and pupils were equal round and reactive to light. Eyelids were unremarkable. PULMONARY: Unlabored respirations. Good breath sounds bilaterally. No audible rales rhonchi or wheezing was noted. CARDIOVASCULAR: There is a regular rate and rhythm without any murmurs gallops or rubs. ABDOMEN: Soft and nontender with normal bowel sounds. No palpable organomegaly was noted. There is no palpable pulsatile mass. SKIN: Skin is clear with no lesions or rashes and otherwise unremarkable. NEUROLOGIC: Patient is alert and oriented x3. Cranial nerves II through XII are grossly intact. Motor and sensory are also intact. Normal speech, volume and content. Symmetrical smile. Cerebellar exam grossly intact. MUSCULOSKELETAL: Normal extremities with adequate strength and full range of motion. No lower extremity swelling or edema. No calf tenderness. LYMPHATICS: No significant lymphadenopathy is noted PSYCHIATRIC: Normal psychiatric evaluation. Limitations: no limitations Course Vital Signs 10/27/20 10/27/20 10/27/20 12:31 13:33 14:00 Temperature 97.8 F Pulse Rate 77 70 68 Respiratory 16 18 18 Rate Blood Pressure 144/95 121/78 119/71 O2 Sat by Pulse 99 96 98 Oximetry Medical Decision Making - Medical Decision Making EKG shows normal sinus rhythm at 72 bpm VA interval 250 QRS is 92 QT interval 414 QTC is 453. Patient's EKG shows no ST segment elevation however there is T- wave inversions in 1 and aVL and V4 through the V6 Patient got 8 units of regular insulin and a liter of fluid and her sugar was repeated was 271 she was acetone negative. Patient states she forgot to take her sugar this morning. Patient stated her vertigo was considerably better. Chest x-ray and CAT scan showed no acute abnormality. - Lab Data Result diagrams: 10/27/20 12:52 10/27/20 12:52 Lab Results 10/27/20 10/27/20 10/27/20 Range/Units 12:52 12:52 12:52 WBC 5.0 (3.8-10.6) k/uL RBC 4.09 (3.80-5.40) m/uL Hgb 12.2 (11.4-16.0) gm/dL Hct 37.9 (34.0-46.0) % MCV 92.8 (80.0-100.0) fL MCH 29.8 (25.0-35.0) pg MCHC 32.2 (31.0-37.0) g/dL RDW 14.4 (11.5-15.5) % Plt Count 202 (150-450) k/uL MPV 7.4 Neutrophils % 59 % Lymphocytes % 32 % Monocytes % 4 % Eosinophils % 4 % Basophils % 0 % Neutrophils # 2.9 (1.3-7.7) k/uL Lymphocytes # 1.6 (1.0-4.8) k/uL Monocytes # 0.2 (0-1.0) k/uL Eosinophils # 0.2 (0-0.7) k/uL Basophils # 0.0 (0-0.2) k/uL PT 10.1 (9.0-12.0) sec INR 0.9 (<1.2) APTT 22.6 (22.0-30.0) sec Sodium 134 L (137-145) mmol/L Potassium 5.4 H (3.5-5.1) mmol/L Chloride 99 (98-107) mmol/L Carbon Dioxide 25 (22-30) mmol/L Anion Gap 10 mmol/L BUN 21 H (7-17) mg/dL Creatinine 0.93 (0.52-1.04) mg/dL Est GFR (CKD-EPI)AfAm 78 (>60 ml/min/1.73 sqM) Est GFR (CKD-EPI)NonAf 68 (>60 ml/min/1.73 sqM) Glucose 608 H* (74-99) mg/dL POC Glucose (mg/dL) (75-99) mg/dL POC Glu Wedding Designer ID Calcium 9.0 (8.4-10.2) mg/dL Magnesium 1.9 (1.6-2.3) mg/dL Total Bilirubin 0.4 (0.2-1.3) mg/dL AST 19 (14-36) U/L ALT 14 (4-34) U/L Alkaline Phosphatase 130 H (38-126) U/L Troponin I (0.000-0.034) ng/mL Total Protein 6.7 (6.3-8.2) g/dL Albumin 4.1 (3.5-5.0) g/dL Acetone, Qual (Negative) 10/27/20 10/27/20 10/27/20 Range/Units 12:52 12:52 14:38 WBC (3.8-10.6) k/uL RBC (3.80-5.40) m/uL Hgb (11.4-16.0) gm/dL Hct (34.0-46.0) % MCV (80.0-100.0) fL MCH (25.0-35.0) pg MCHC (31.0-37.0) g/dL RDW (11.5-15.5) % Plt Count (150-450) k/uL MPV Neutrophils % % Lymphocytes % % Monocytes % % Eosinophils % % Basophils % % Neutrophils # (1.3-7.7) k/uL Lymphocytes # (1.0-4.8) k/uL Monocytes # (0-1.0) k/uL Eosinophils # (0-0.7) k/uL Basophils # (0-0.2) k/uL PT (9.0-12.0) sec INR (<1.2) APTT (22.0-30.0) sec Sodium (137-145) mmol/L Potassium (3.5-5.1) mmol/L Chloride (98-107) mmol/L Carbon Dioxide (22-30) mmol/L Anion Gap mmol/L BUN (7-17) mg/dL Creatinine (0.52-1.04) mg/dL Est GFR (CKD-EPI)AfAm (>60 ml/min/1.73 sqM) Est GFR (CKD-EPI)NonAf (>60 ml/min/1.73 sqM) Glucose (74-99) mg/dL POC Glucose (mg/dL) 271 H (75-99) mg/dL POC Glu Wedding Designer ID Lindy Best Calcium (8.4-10.2) mg/dL Magnesium (1.6-2.3) mg/dL Total Bilirubin (0.2-1.3) mg/dL AST (14-36) U/L ALT (4-34) U/L Alkaline Phosphatase (38-126) U/L Troponin I <0.012 (0.000-0.034) ng/mL Total Protein (6.3-8.2) g/dL Albumin (3.5-5.0) g/dL Acetone, Qual Negative (Negative) Disposition Clinical Impression: Hyperglycemia, Vertigo Disposition: HOME SELF-CARE Instructions (If sedation given, give patient instructions): Vertigo (ED), Diabetic Hyperglycemia (ED) Prescriptions: Meclizine [Antivert] 25 mg PO TID #20 tab Is patient prescribed a controlled substance at d/c from ED?: No Referrals: Oralia Wahl MD [Primary Care Provider] - 1-2 days Time of Disposition: 15:00
[2020-10-27 13:20] LABS: Basophils % (A) 0 %; Eosinophils # (A) 0.2 k/uL (0-0.7); Eosinophils % (A) 4 %; HCT 37.9 % (34.0-46.0); HGB 12.2 gm/dL (11.4-16.0); Lymphocytes # (A) 1.6 k/uL (1.0-4.8); Lymphocytes % (A) 32 %; MCH 29.8 pg (25.0-35.0); MCHC 32.2 g/dL (31.0-37.0); MCV 92.8 fL (80.0-100.0); Mean Platelet Volume 7.4; Monocytes # (A) 0.2 k/uL (0-1.0); Monocytes % (A) 4 %; Neutrophils # (A) 2.9 k/uL (1.3-7.7); Neutrophils % (A) 59 %; Platelet Count 202 k/uL (150-450); RBC 4.09 m/uL (3.80-5.40); RDW 14.4 % (11.5-15.5)
[2020-10-27 13:30] LABS: INR 0.9 (<1.2); Partial Thromboplastin Time 22.6 sec (22.0-30.0); Prothrombin Time 10.1 sec (9.0-12.0)
[2020-10-27 13:34] LABS: Albumin 4.1 g/dL (3.5-5.0); Magnesium 1.9 mg/dL (1.6-2.3); Potassium 5.4 mmol/L (3.5-5.1); Total Bilirubin 0.4 mg/dL (0.2-1.3); Total Protein 6.7 g/dL (6.3-8.2)
--- NOTE | 2020-10-27 13:40 | CT ---
EXAMINATION TYPE: CT brain wo con DATE OF EXAM: 10/27/2020 COMPARISON: 05/14/2016 HISTORY: dizziness CT DLP: 1098.[address] of the brain was performed. The ventricles, basal cisterns and sulci overlying the cerebral convexities demonstrate mild enlargem ent. Remote insult high right frontal parietal region. There is no evidence for intracranial hemorrhage or sulcal effacement. There is decreased attenuation about the periventricular white matter and deep white matter of both c erebral hemispheres, compatible with chronic small vessel ischemia. Differential diagnosis does inclu de demyelination. No mass effects are seen.No midline shift. Osseous calvarium is intact. If symptoms persist consider MRI. IMPRESSION: 1. Age related atrophic and chronic small vessel ischemic change without acute intracranial process s een at this time.
--- NOTE | 2020-10-27 13:41 | XR ---
EXAMINATION TYPE: XR chest 2V DATE OF EXAM: 10/27/2020 COMPARISON: Chest x-ray 10/08/2020 HISTORY: Chest pain TECHNIQUE: Frontal and lateral views of the chest are obtained. FINDINGS: There is no focal air space opacity, pleural effusion, or pneumothorax seen. The cardiac silhouette size is within normal limits. Calcified granuloma in the left lower lobe is stable. There are overlying cardiac leads, there is a spinal curvature. Right hemidiaphragm is chronically elevate d. The osseous structures are intact. IMPRESSION: No acute cardiopulmonary process.
[2020-10-27 13:49] VITALS: RESP 18
[2020-10-27] MEDS ORDERED: INSULIN REGULAR 100 UNIT/ML VIAL IV ONE (13:49)
[2020-10-27] MEDS ORDERED: SODIUM CHLORIDE 0.9% 1,000 ML IV ONE (13:49)
[2020-10-27 14:41] LABS: Glucose,Whole Blood 271 mg/dL (75-99)
[2020-10-27 15:39] VITALS: BP 102/66; PULSE 70
== END 2020-10-27 15:36 | disposition home or self-care (01) ==
LOC: EC 12:29
DX: E11.65 Type 2 diabetes mellitus with hyperglycemia (principal); R42 Dizziness and giddiness; I25.10 Atherosclerotic heart disease of native coronary artery without angina pectoris; J44.9 Chronic obstructive pulmonary disease, unspecified; K21.9 Gastro-esophageal reflux disease without esophagitis; H91.90 Unspecified hearing loss, unspecified ear; E78.5 Hyperlipidemia, unspecified; I10 Essential (primary) hypertension; I25.2 Old myocardial infarction; M06.9 Rheumatoid arthritis, unspecified; G47.30 Sleep apnea, unspecified; E03.9 Hypothyroidism, unspecified; F41.9 Anxiety disorder, unspecified; F32.9 Major depressive disorder, single episode, unspecified; F12.90 Cannabis use, unspecified, uncomplicated; Z86.73 Personal history of transient ischemic attack (TIA), and cerebral infarction without residual deficits; Z86.718 Personal history of other venous thrombosis and embolism; Z87.891 Personal history of nicotine dependence; Z79.890 Hormone replacement therapy; Z79.4 Long term (current) use of insulin; Z79.51 Long term (current) use of inhaled steroids; Z79.82 Long term (current) use of aspirin
CPT/HCPCS: 36415; 93005; 80053; 82009; 83735; 84484; 85025; 85610; 85730; 71046; 70450; 99285; 96374; 96361; J3360

== ENCOUNTER 2020-10-31 13:20 | Emergency (ER) | payer OTHER ==
[2020-10-31 13:23] VITALS: BP 138/80; PULSE 93; RESP 20; TEMP 98.3
--- NOTE | 2020-10-31 14:31 | ED ---
Skin/Abscess/FB HPI - General Chief complaint: Skin/Abscess/Foreign Body Stated complaint: rash Time Seen by Provider: 10/31/20 13:57 Source: patient, RN notes reviewed Mode of arrival: ambulatory Limitations: no limitations - History of Present Illness Initial comments: 60-year-old white female patient presents to the emergency room with complaints of left inguinal rash in midline incisional cleft rash since yesterday. Patient also states has dysuria since yesterday as well. Patient states her blood glucose levels have been running in the 280s which is normal for her. Patient is a 1-2 cigarette a day smoker. Patient has history of IDDM, asthma, COPD and sleep apnea. Patient denies any nausea vomiting or diarrhea, denies any fevers or cough. Patient states has never had a rash like this before. MD complaint: rash -: days(s) (1) Location: genitals (Left groin) Severity scale (1-10): 7 Quality: burning, other (Tender) Consistency: constant Improves with: none Worsens with: palpation Context: none Associated symptoms: other (Dysuria) Treatments Prior to Arrival: none - Related Data Home Medications Medication Instructions Recorded Confirmed Venlafaxine HCl [Venlafaxine HCl 225 mg PO DAILY 10/21/16 10/27/20 ER] Loratadine [Claritin] 10 mg PO DAILY 03/29/19 10/27/20 Aspirin 81 mg PO DAILY 12/23/19 10/27/20 Atorvastatin [Lipitor] 80 mg PO HS 12/23/19 10/27/20 Beclomethasone Dip 80 Mcg/Puff 2 puff INHALATION RT-BID 12/23/19 10/27/20 [Qvar 80 mcg] Pioglitazone [Actos] 15 mg PO DAILY 12/23/19 10/27/20 Topiramate [Topamax] 50 mg PO HS 12/23/19 10/27/20 Meclizine [Antivert] 12.5 mg PO DAILY 04/06/20 10/27/20 Nitroglycerin Sl Tabs [Nitrostat] 0.4 mg SL Q5M PRN 04/06/20 10/27/20 Pantoprazole Sodium [Protonix] 40 mg PO DAILY 04/06/20 10/27/20 Cariprazine HCl [Vraylar] 1.5 mg PO DAILY 05/13/20 10/27/20 Ergocalciferol [Vitamin D2 (1250 1,250 mcg PO WE 10/08/20 10/27/20 Mcg = 15157 Iu)] Insulin Aspart (For Pump) [NovoLOG 0.01 unit SQ-PUMP CONTINUOUS 10/08/20 10/27/20 (For Pump)] Levothyroxine Sodium [Synthroid] 175 mcg PO DAILY 10/08/20 10/27/20 Ondansetron Odt [Zofran ODT] 4 mg PO Q8H PRN 10/08/20 10/27/20 lisinopriL [Zestril] 10 mg PO DAILY 10/08/20 10/27/20 Amitriptyline HCl [Elavil] 25 mg PO HS PRN 10/27/20 10/27/20 Butalb/APAP/Caff 50-325-40Mg 1 tab PO Q12H PRN 10/27/20 10/27/20 [Fioricet 50-325-40] Previous Rx's Medication Instructions Recorded Clopidogrel [Plavix] 75 mg PO DAILY #30 tab 04/07/20 Gabapentin [Neurontin] 300 mg PO BID cap 04/07/20 Isosorbide Mononitrate ER [Imdur] 30 mg PO DAILY #30 tab.er.24h 10/10/20 Meclizine [Antivert] 25 mg PO TID #20 tab 10/27/20 Clotrimazole/Betamethasone Dip 1 applic TOPICAL BID 7 Days #1 tube 10/31/20 [Lotrisone Cream] Allergies Allergy/AdvReac Type Severity Reaction Status Date / Time grass pollen Allergy Unknown Verified 10/31/20 13:23 latex Allergy Rash/Hives Verified 10/31/20 13:23 Sulfa (Sulfonamide Allergy Rash/Hives/ Verified 10/31/20 13:23 Antibiotics) Swelling venom-honey bee Allergy Anaphylaxis Verified 10/31/20 13:23 morphine AdvReac Decreased Verified 10/31/20 13:23 Blood Pressure prochlorperazine edisylate AdvReac Vomiting Verified 10/31/20 13:23 [From Compazine] Review of Systems ROS Statement: Those systems with pertinent positive or pertinent negative responses have been documented in the HPI. ROS Other: All systems not noted in ROS Statement are negative. Past Medical History Past Medical History: Coronary Artery Disease (CAD), Cancer, COPD, CVA/TIA, Diabetes Mellitus, Deep Vein Thrombosis (DVT), Eye Disorder, GERD/Reflux, Hearing Disorder / Deafness, Hyperlipidemia, Hypertension, Myocardial Infarction ([place]), Renal Disease, Rheumatoid Arthritis (RA), Sleep Apnea/CPAP/BIPAP, Syncope, Thyroid Disorder Additional Past Medical History / Comment(s): 09/16/16 with SBO with surgery/possible septic emboli with cavitary lesions bilateral lungs. 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 coli Nov2015 requiring PICC line insertion for IV antibiotics, restless leg syndrome, peripheral neropathy. Hx bilateral glaucoma, hx syncope r/t low blood sugars. No CPAP use. [place]- December 2019 Last Myocardial Infarction Date:: 2019 History of Any Multi-Drug Resistant Organisms: ESBL, MRSA, VRE Date of last positivie culture/infection: 05/07/16 ESBL, 05/15/16 VRE, MRSA 09/2017 - upper lip MDRO Source:: URINE E.COLI, EC GALLINARUM Past Surgical History: Appendectomy, Bowel Resection, Section, Heart Catheterization With Stent, Hernia Repair Additional Past Surgical History / Comment(s): 09/30 exploratory laparotomy, lysis of adhesions bowel resection d/t obstruction. Hx: repair incarcerated in cisional hernia with abdominal washout, thyroidectomy(non functioning), heart cath 06/28 - 100% occluded, unable to stent, partial nephrectomy for left kidney renal cell carcinoma, PICC line insertion (since removed), colonoscopy, bilateral cataract removal with lens implants, 2 Sections.Stent placed 03/2020 Past Anesthesia/Blood Transfusion Reactions: No Reported Reaction Date of Last Stent Placement:: 04/06/2020 Past Psychological History: Anxiety, Depression Smoking Status: Former smoker Past Alcohol Use History: None Reported Past Drug Use History: Marijuana - Past Family History Sister(s) Family Medical History: Cancer, Sleep Apnea/CPAP/BIPAP Additional Family Medical History / Comment(s): Patient has one sister that from liver cancer, borderline DM, PAD, hep. c. Brother(s) Family Medical History: Cancer, Coronary Artery Disease (CAD), Deep Vein Thrombosis (DVT), Hyperlipidemia Additional Family Medical History / Comment(s): Patient has 1 brother with past ETOH, past drug abuse, DVT's. She has a second brother that has from throat cancer. Daughter(s) Family Medical History: Diabetes Mellitus, Myocardial Infarction ([place]) Additional Family Medical History / Comment(s): Daughter at 23 yrs old from massive [place]. Father Family Medical History: Myocardial Infarction ([place]) Additional Family Medical History / Comment(s): from [place] at age 44 Mother Family Medical History: Cancer Additional Family Medical History / Comment(s): maeve breasts removed d/t cancer, hysterectomy d/t cancer. Mother from metastatic breast cancer. General Exam Limitations: no limitations General appearance: alert, in no apparent distress Head exam: Present: atraumatic, normocephalic, normal inspection Eye exam: Present: normal appearance, PERRL, EOMI. Absent: scleral icterus, conjunctival injection, periorbital swelling ENT exam: Present: normal exam, normal oropharynx, mucous membranes moist Neck exam: Present: normal inspection, full ROM. Absent: tenderness, meningismus, lymphadenopathy, thyromegaly Respiratory exam: Present: normal lung sounds bilaterally. Absent: respiratory distress, wheezes, rales, rhonchi, stridor, chest wall tenderness, accessory muscle use, decreased breath sounds Cardiovascular Exam: Present: regular rate, normal rhythm, normal heart sounds. Absent: systolic murmur, diastolic murmur, rubs, gallop, clicks, JVD GI/Abdominal exam: Present: soft, normal bowel sounds. Absent: distended, tenderness, guarding, rebound, rigid, bruit, pulsatile mass Rectal exam: Present: deferred Extremities exam: Present: normal inspection, full ROM, normal capillary refill. Absent: tenderness, pedal edema, joint swelling, calf tenderness Back exam: Present: normal inspection, full ROM. Absent: tenderness, CVA tenderness (R), CVA tenderness (L) Neurological exam: Present: alert, oriented X3, CN II-XII intact Psychiatric exam: Present: normal affect, normal mood Skin exam: Present: warm, dry, normal color, erythema (Left inguinal midline incisional cleft , consistent with Lulu). Absent: rash, cyanosis, diaphoretic, pallor Course Vital Signs 10/31/20 13:21 Temperature 98.3 F Pulse Rate 93 Respiratory 20 Rate Blood Pressure 138/80 O2 Sat by Pulse 98 Oximetry Medical Decision Making - Lab Data Lab Results 10/31/20 Range/Units 14:56 Urine Color Yellow Urine Appearance Clear (Clear) Urine pH 5.5 (5.0-8.0) Ur Specific [place] 1.021 (1.001-1.035) Urine Protein Negative (Negative) Urine Glucose (UA) 4+ H (Negative) Urine Ketones Negative (Negative) Urine Blood Negative (Negative) Urine Nitrite Negative (Negative) Urine Bilirubin Negative (Negative) Urine Urobilinogen <2.0 (<2.0) mg/dL Ur Leukocyte Esterase Negative (Negative) Disposition Clinical Impression: Candidiasis, intertrigo Disposition: HOME SELF-CARE Condition: Good Instructions (If sedation given, give patient instructions): Skin Yeast Infection (ED) Additional Instructions: Use the medication as prescribed to your left groin rash and her abdominal rash twice a day. Follow-up with your primary care doctor in 1 week. Prescriptions: Clotrimazole/Betamethasone Dip [Lotrisone Cream] 1 applic TOPICAL BID 7 Days #1 tube Is patient prescribed a controlled substance at d/c from ED?: No Referrals: Oralia Wahl MD [Primary Care Provider] - 1-2 days Time of Disposition: 15:47
[2020-10-31 15:26] LABS: Appearance,Urine Clear (Clear); Bilirubin,Urine Negative (Negative); Blood,Urine Negative (Negative); Color,Urine Yellow; Glucose,Urine (UA) 4+ (Negative); Ketones,Urine Negative (Negative); Leukocyte Esterase,Urine Negative (Negative); Nitrite,Urine Negative (Negative); PH, Urine 5.5 (5.0-8.0); Protein,Urine Negative (Negative); Specific Gravity,Urine 1.021 (1.001-1.035); Urobilinogen,Urine <2.0 mg/dL (<2.0)
== END 2020-10-31 15:52 | disposition home or self-care (01) ==
LOC: EC 13:20
DX: B37.2 Candidiasis of skin and nail (principal); E11.9 Type 2 diabetes mellitus without complications; E78.5 Hyperlipidemia, unspecified; F32.9 Major depressive disorder, single episode, unspecified; F41.9 Anxiety disorder, unspecified; G25.81 Restless legs syndrome; I10 Essential (primary) hypertension; I25.10 Atherosclerotic heart disease of native coronary artery without angina pectoris; I25.2 Old myocardial infarction; J44.9 Chronic obstructive pulmonary disease, unspecified; K21.9 Gastro-esophageal reflux disease without esophagitis; M06.9 Rheumatoid arthritis, unspecified; H91.90 Unspecified hearing loss, unspecified ear; G47.30 Sleep apnea, unspecified; Z79.02 Long term (current) use of antithrombotics/antiplatelets; Z79.4 Long term (current) use of insulin; Z79.51 Long term (current) use of inhaled steroids; Z79.82 Long term (current) use of aspirin; Z85.528 Personal history of other malignant neoplasm of kidney; Z86.73 Personal history of transient ischemic attack (TIA), and cerebral infarction without residual deficits; Z87.891 Personal history of nicotine dependence; Z86.718 Personal history of other venous thrombosis and embolism; Z80.3 Family history of malignant neoplasm of breast; Z82.49 Family history of ischemic heart disease and other diseases of the circulatory system; Z83.3 Family history of diabetes mellitus; Z83.49 Family history of other endocrine, nutritional and metabolic diseases; Z88.2 Allergy status to sulfonamides; Z88.5 Allergy status to narcotic agent; Z88.8 Allergy status to other drugs, medicaments and biological substances; Z90.5 Acquired absence of kidney; Z91.040 Latex allergy status
CPT/HCPCS: 81003; 99282

== ENCOUNTER 2021-01-01 14:24 | Emergency (ER) | payer OTHER ==
[2021-01-01 14:36] LABS: Glucose,Whole Blood 212 mg/dL (75-99)
[2021-01-01 14:38] VITALS: TEMP 98.1
[2021-01-01] MEDS ORDERED: SODIUM CHLORIDE 0.9% 1,000 ML IV STA (15:29)
[2021-01-01 15:54] LABS: Basophils % (A) 1 %; Eosinophils # (A) 0.2 k/uL (0-0.7); Eosinophils % (A) 3 %; HCT 41.1 % (34.0-46.0); HGB 13.4 gm/dL (11.4-16.0); Lymphocytes # (A) 2.3 k/uL (1.0-4.8); Lymphocytes % (A) 43 %; MCH 29.1 pg (25.0-35.0); MCHC 32.8 g/dL (31.0-37.0); MCV 88.9 fL (80.0-100.0); Mean Platelet Volume 7.3; Monocytes # (A) 0.2 k/uL (0-1.0); Monocytes % (A) 4 %; Neutrophils # (A) 2.6 k/uL (1.3-7.7); Neutrophils % (A) 48 %; Platelet Count 269 k/uL (150-450); RBC 4.62 m/uL (3.80-5.40); RDW 14.5 % (11.5-15.5); WBC 5.4 k/uL (3.8-10.6)
[2021-01-01 16:01] LABS: Albumin 4.8 g/dL (3.5-5.0); Calcium 10.1 mg/dL (8.4-10.2); Potassium 4.1 mmol/L (3.5-5.1); Total Bilirubin 0.3 mg/dL (0.2-1.3); Total Protein 7.7 g/dL (6.3-8.2)
--- NOTE | 2021-01-01 17:07 | CT ---
EXAMINATION TYPE: CT brain wo con DATE OF EXAM: 01/01/2021 COMPARISON: 10/27/2020 HISTORY: Seizure activity. CT DLP: 1094.4 mGycm Automated exposure control for dose reduction was used. There is mild cerebral cortical atrophy. There is no mass effect nor midline shift. There is no sign of intracranial hemorrhage. There is 5 mm hypodensity in the anterior left thalamus consistent with o ld lacunar infarct. Unchanged. The calvarium is intact. Skull base is intact. There is normal aeratio n of the mastoid sinuses. There is 3 x 2 cm area of cortical hypodensity right posterior parietal lobe consistent with old franny ical infarct. Unchanged. IMPRESSION: Old right parietal cortical infarct. Old left thalamic infarct. No acute intracranial abnormality. No change.
--- NOTE | 2021-01-01 17:10 | ED ---
Seizure HPI - General Chief Complaint: Seizure Stated Complaint: Seizures Time Seen by Provider: 01/01/21 15:22 Source: patient, RN notes reviewed Mode of arrival: wheelchair Limitations: no limitations - History of Present Illness Initial Comments: Patient is a 60-year-old female that presents to the emergency department complaining of new onset seizures. She noted that she was lying in bed when she started to shake. She noted that her boyfriend noticed her and asked her if she was okay to which she responded am not sure. She noted that she did not lose consciousness did not lose her bladder function and did not have a postictal state. Patient was a well-appearing 60-year-old female in no apparent distress or pain while sitting up in bed during exam and interview. She denied any chest pain shortness of breath headache nausea vomiting diarrhea constipation fever fatigue chills confusion lightheadedness dizziness. - Related Data Home Medications Medication Instructions Recorded Confirmed Venlafaxine HCl [Venlafaxine HCl 225 mg PO DAILY 10/21/16 10/31/20 ER] Loratadine [Claritin] 10 mg PO DAILY 03/29/19 10/31/20 Aspirin 81 mg PO DAILY 12/23/19 10/31/20 Atorvastatin [Lipitor] 80 mg PO HS 12/23/19 10/31/20 Beclomethasone Dip 80 Mcg/Puff 2 puff INHALATION RT-BID 12/23/19 10/31/20 [Qvar 80 mcg] Pioglitazone [Actos] 15 mg PO DAILY 12/23/19 10/31/20 Topiramate [Topamax] 50 mg PO HS 12/23/19 10/31/20 Nitroglycerin Sl Tabs [Nitrostat] 0.4 mg SL Q5M PRN 04/06/20 10/31/20 Pantoprazole Sodium [Protonix] 40 mg PO DAILY 04/06/20 10/31/20 Cariprazine HCl [Vraylar] 1.5 mg PO DAILY 05/13/20 10/31/20 Ergocalciferol [Vitamin D2 (1250 1,250 mcg PO WE 10/08/20 10/31/20 Mcg = 07719 Iu)] Insulin Aspart (For Pump) [NovoLOG 0.01 unit SQ-PUMP CONTINUOUS 10/08/20 10/31/20 (For Pump)] Levothyroxine Sodium [Synthroid] 175 mcg PO DAILY 10/08/20 10/31/20 Ondansetron Odt [Zofran ODT] 4 mg PO Q8H PRN 10/08/20 10/31/20 Amitriptyline HCl [Elavil] 25 mg PO HS PRN 10/27/20 10/31/20 Butalb/APAP/Caff 50-325-40Mg 1 tab PO Q12H PRN 10/27/20 10/31/20 [Fioricet 50-325-40] Isosorbide Dinitrate [Isordil] 10 mg PO BID 10/31/20 10/31/20 Previous Rx's Medication Instructions Recorded Clopidogrel [Plavix] 75 mg PO DAILY #30 tab 04/07/20 Gabapentin [Neurontin] 300 mg PO BID cap 04/07/20 Meclizine [Antivert] 25 mg PO TID #20 tab 10/27/20 Clotrimazole/Betamethasone Dip 1 applic TOPICAL BID 7 Days #1 tube 10/31/20 [Lotrisone Cream] Allergies Allergy/AdvReac Type Severity Reaction Status Date / Time grass pollen Allergy Unknown Verified 01/01/21 14:38 latex Allergy Rash/Hives Verified 01/01/21 14:38 Sulfa (Sulfonamide Allergy Rash/Hives/ Verified 01/01/21 14:38 Antibiotics) Swelling venom-honey bee Allergy Anaphylaxis Verified 01/01/21 14:38 morphine AdvReac Decreased Verified 01/01/21 14:38 Blood Pressure prochlorperazine edisylate AdvReac Vomiting Verified 01/01/21 14:38 [From Compazine] Review of Systems ROS Statement: Those systems with pertinent positive or pertinent negative responses have been documented in the HPI. ROS Other: All systems not noted in ROS Statement are negative. Past Medical History Past Medical History: Coronary Artery Disease (CAD), Cancer, COPD, CVA/TIA, Diabetes Mellitus, Deep Vein Thrombosis (DVT), Eye Disorder, GERD/Reflux, Hearing Disorder / Deafness, Hyperlipidemia, Hypertension, Myocardial Infarction ([place]), Renal Disease, Rheumatoid Arthritis ([place]), Sleep Apnea/CPAP/BIPAP, Syncope, Thyroid Disorder Additional Past Medical History / Comment(s): 09/16/16 with SBO with delaney magalys/possible septic emboli with cavitary lesions bilateral lungs. 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 coli Nov2015 requiring PICC line insertion for IV antibiotics, restless leg syndrome, peripheral neropathy. Hx bilateral glaucoma, hx syncope r/t low blood sugars. No CPAP use. [place]- December 2019 Last Myocardial Infarction Date:: 2019 History of Any Multi-Drug Resistant Organisms: ESBL, MRSA, VRE Date of last positivie culture/infection: 05/07/16 ESBL, 05/15/16 VRE, MRSA 09/2017 - upper lip MDRO Source:: URINE E.COLI, EC GALLINARUM Past Surgical History: Appendectomy, Bowel Resection, Section, Heart Catheterization With Stent, Hernia Repair Additional Past Surgical History / Comment(s): 09/30 exploratory laparotomy, lysis of adhesions bowel resection d/t obstruction. Hx: repair incarcerated incisional hernia with abdominal washout, thyroidectomy(non functioning), heart cath 06/28 - 100% occluded, unable to stent, partial nephrectomy for left kidney renal cell carcinoma, PICC line insertion (since removed), colonoscopy, bilateral cataract removal with lens implants, 2 Sections.Stent placed 03/2020 Past Anesthesia/Blood Transfusion Reactions: No Reported Reaction Date of Last Stent Placement:: 04/06/2020 Past Psychological History: Anxiety, Depression Smoking Status: Former smoker Past Alcohol Use History: None Reported Past Drug Use History: Marijuana - Past Family History Sister(s) Family Medical History: Cancer, Sleep Apnea/CPAP/BIPAP Additional Family Medical History / Comment(s): Patient has one sister that from liver cancer, borderline DM, PAD, hep. c. Brother(s) Family Medical History: Cancer, Coronary Artery Disease (CAD), Deep Vein Thrombosis (DVT), Hyperlipidemia Additional Family Medical History / Comment(s): Patient has 1 brother with past ETOH, past drug abuse, DVT's. She has a second brother that has from thro at cancer. Daughter(s) Family Medical History: Diabetes Mellitus, Myocardial Infarction ([place]) Additional Family Medical History / Comment(s): Daughter at 23 yrs old from massive [place]. Father Family Medical History: Myocardial Infarction ([place]) Additional Family Medical History / Comment(s): from [place] at age 44 Mother Family Medical History: Cancer Additional Family Medical History / Comment(s): maeve breasts removed d/t cancer, hysterectomy d/t cancer. Mother from metastatic breast cancer. General Exam Limitations: no limitations General appearance: alert, in no apparent distress Head exam: Present: atraumatic, normocephalic, normal inspection Eye exam: Present: normal appearance, PERRL, EOMI. Absent: scleral icterus, conjunctival injection, periorbital swelling Neck exam: Present: normal inspection Respiratory exam: Present: normal lung sounds bilaterally. Absent: respiratory distress, wheezes, rales, rhonchi, stridor Cardiovascular Exam: Present: regular rate, normal rhythm, normal heart sounds. Absent: systolic murmur, diastolic murmur, rubs, gallop, clicks GI/Abdominal exam: Present: soft, normal bowel sounds. Absent: distended, tenderness, guarding, rebound, rigid Extremities exam: Present: normal inspection, full ROM, normal capillary refill. Absent: tenderness, pedal edema, joint swelling, calf tenderness Neurological exam: Present: alert, oriented X3 Expanded Patient oriented to: Present: person, place, time Speech: Present: fluid speech Cranial nerves: EOM's Intact: Normal, Tongue Deviation: Normal Cerebellar function: Finger to Nose: Normal, Heel to [place]: Normal Sensory exam: Upper Extremity Light Touch: Normal, Lower Extremity Light Touch: Normal Motor strength exam: RUE: 5, LUE: 5, RLE: 5, LLE: 5 Eye Response: (4) open spontaneously Motor Response: (6) obeys commands Verbal Response: (5) oriented Psychiatric exam: Present: normal affect, normal mood Skin exam: Present: warm, dry, intact, normal color. Absent: rash Course Vital Signs 01/01/21 14:34 Temperature 98.1 F Pulse Rate 115 H Respiratory 17 Rate Blood Pressure 95/68 O2 Sat by Pulse 98 Oximetry Medical Decision Making - Medical Decision Making 60-year-old female presenting for possible new onset seizure. Labs, CT of the brain, 1 L normal saline him a EKG ordered. Labs unremarkable. CT negative for any acute process. - Lab Data Result diagrams: 01/01/21 15:43 01/01/21 15:43 Lab Results 01/01/21 01/01/2121 Range/Units 14:34 15:43 15:43 WBC 5.4 (3.8-10.6) k/uL RBC 4.62 (3.80-5.40) m/uL Hgb 13.4 (11.4-16.0) gm/dL Hct 41.1 (34.0-46.0) % MCV 88.9 (80.0-100.0) fL MCH 29.1 (25.0-35.0) pg MCHC 32.8 (31.0-37.0) g/dL RDW 14.5 (11.5-15.5) % Plt Count 269 (150-450) k/uL MPV 7.3 Neutrophils % 48 % Lymphocytes % 43 % Monocytes % 4 % Eosinophils % 3 % Basophils % 1 % Neutrophils # 2.6 (1.3-7.7) k/uL Lymphocytes # 2.3 (1.0-4.8) k/uL Monocytes # 0.2 (0-1.0) k/uL Eosinophils # 0.2 (0-0.7) k/uL Basophils # 0.0 (0-0.2) k/uL Sodium 141 (137-145) mmol/L Potassium 4.1 (3.5-5.1) mmol/L Chloride 104 (98-107) mmol/L Carbon Dioxide 26 (22-30) mmol/L Anion Gap 11 mmol/L BUN 22 H (7-17) mg/dL Creatinine 0.93 (0.52-1.04) mg/dL Est GFR (CKD-EPI)AfAm 78 (>60 ml/min/1.73 sqM) Est GFR (CKD-EPI)NonAf 68 (>60 ml/min/1.73 sqM) Glucose 160 H (74-99) mg/dL POC Glucose (mg/dL) 212 H (75-99) mg/dL POC Glu Fuse Maker ID Lety Dooley Calcium 10.1 (8.4-10.2) mg/dL Magnesium (1.6-2.3) mg/dL Total Bilirubin 0.3 (0.2-1.3) mg/dL AST 26 (14-36) U/L ALT 19 (4-34) U/L Alkaline Phosphatase 144 H (38-126) U/L Total Protein 7.7 (6.3-8.2) g/dL Albumin 4.8 (3.5-5.0) g/dL 01/01/21 Range/Units 16:23 WBC (3.8-10.6) k/uL RBC (3.80-5.40) m/uL Hgb (11.4-16.0) gm/dL Hct (34.0-46.0) % MCV (80.0-100.0) fL MCH (25.0-35.0) pg MCHC (31.0-37.0) g/dL RDW (11.5-15.5) % Plt Count (150-450) k/uL MPV Neutrophils % % Lymphocytes % % Monocytes % % Eosinophils % % Basophils % % Neutrophils # (1.3-7.7) k/uL Lymphocytes # (1.0-4.8) k/uL Monocytes # (0-1.0) k/uL Eosinophils # (0-0.7) k/uL Basophils # (0-0.2) k/uL Sodium (137-145) mmol/L Potassium (3.5-5.1) mmol/L Chloride (98-107) mmol/L Carbon Dioxide (22-30) mmol/L Anion Gap mmol/L BUN (7-17) mg/dL Creatinine (0.52-1.04) mg/dL Est GFR (CKD-EPI)AfAm (>60 ml/min/1.73 sqM) Est GFR (CKD-EPI)NonAf (>60 ml/min/1.73 sqM) Glucose (74-99) mg/dL POC Glucose (mg/dL) (75-99) mg/dL POC Glu Fuse Maker ID Calcium (8.4-10.2) mg/dL Magnesium 1.8 (1.6-2.3) mg/dL Total Bilirubin (0.2-1.3) mg/dL AST (14-36) U/L ALT (4-34) U/L Alkaline Phosphatase (38-126) U/L Total Protein (6.3-8.2) g/dL Albumin (3.5-5.0) g/dL - EKG Data -: EKG Interpreted by Tn EKG shows normal: sinus rhythm Rate: normal EKG Comments: Ventricular rate 91 bpm, NV interval 146 ms, QRS duration 88 ms, QTC 437 ms, PRT axes 85/4/115. Normal sinus rhythm, possible left atrial enlargement, left ventricular hypertrophy, cannot rule out septal infarct, age undetermined, T-wave abnormality, consider lateral ischemia, abnormal ECG. EKG appears similar to previous studies. - Radiology Data Radiology results: report reviewed, image reviewed CT of the brain: Old right parietal cortical infarct. Old left femoral neck infarct. No acute intracranial abnormality. No change. Disposition Clinical Impression: New onset seizure Disposition: HOME SELF-CARE Condition: Stable Instructions (If sedation given, give patient instructions): Seizure/Epilepsy Discharge Instructions & Follow-Up Additional Instructions: Please return to the Emergency Department if symptoms worsen or any other concerns. Follow-up primary care in seizure clinic in the next several days. Is patient prescribed a controlled substance at d/c from ED?: No Referrals: Oralia Wahl MD [Primary Care Provider] - 1-2 days Time of Disposition: 17:24
[2021-01-01 17:38] VITALS: BP 138/91; PULSE 91; RESP 18
[2021-01-01 17:51] LABS: Appearance,Urine Cloudy (Clear); Bacteria,Urine Occasional /hpf; Bilirubin,Urine 1+ (Negative); Blood,Urine Negative (Negative); Cellular Casts,Urine 1 /lpf (0); Color,Urine Yellow; Glucose,Urine (UA) Negative (Negative); Granular Casts,Urine 1 /lpf (0); Hyaline Casts,Urine 106 /lpf (0-2); Ketones,Urine Trace (Negative); Leukocyte Esterase,Urine Moderate (Negative); Mucus,Urine Occasional /hpf; Nitrite,Urine Negative (Negative); PH, Urine 5.5 (5.0-8.0); Protein,Urine 1+ (Negative); RBC,Urine 2 /hpf (0-5); Specific Gravity,Urine 1.029 (1.001-1.035); Squamous Epithelial Cell,Urine 3 /hpf (0-4); WBC,Urine 17 /hpf (0-5)
[2021-01-01 17:54] LABS: Amphetamine Screen,Urine Not Detected (NotDetected); Benzodiazepines Screen,Urine Not Detected (NotDetected); Cocaine Screen,Urine Not Detected (NotDetected); Methadone Screen, Urine Not Detected (NotDetected); Opiate Screen,Urine Not Detected (NotDetected); Phencyclidine Screen,Urine Not Detected (NotDetected); Tricyclic Antidepressant,Urine Detected (NotDetected); Urn Cannabinoid Scrn Detected (NotDetected)
[2021-01-01 17:55] LABS: Barbiturate Screen,Urine Detected (NotDetected); Oxycodone Screen, Urine Not Detected (NotDetected)
== END 2021-01-01 17:38 | disposition home or self-care (01) ==
LOC: EC 14:24
DX: R56.9 Unspecified convulsions (principal); E11.9 Type 2 diabetes mellitus without complications; E78.5 Hyperlipidemia, unspecified; F32.9 Major depressive disorder, single episode, unspecified; F41.9 Anxiety disorder, unspecified; I10 Essential (primary) hypertension; I25.10 Atherosclerotic heart disease of native coronary artery without angina pectoris; I25.2 Old myocardial infarction; J44.9 Chronic obstructive pulmonary disease, unspecified; K21.9 Gastro-esophageal reflux disease without esophagitis; M06.9 Rheumatoid arthritis, unspecified; F12.90 Cannabis use, unspecified, uncomplicated; Z79.02 Long term (current) use of antithrombotics/antiplatelets; Z79.4 Long term (current) use of insulin; Z79.51 Long term (current) use of inhaled steroids; Z79.82 Long term (current) use of aspirin; Z79.890 Hormone replacement therapy; Z79.899 Other long term (current) drug therapy; Z80.3 Family history of malignant neoplasm of breast; Z82.49 Family history of ischemic heart disease and other diseases of the circulatory system; Z83.3 Family history of diabetes mellitus; Z83.49 Family history of other endocrine, nutritional and metabolic diseases; Z85.528 Personal history of other malignant neoplasm of kidney; Z86.718 Personal history of other venous thrombosis and embolism; Z86.73 Personal history of transient ischemic attack (TIA), and cerebral infarction without residual deficits; Z87.891 Personal history of nicotine dependence; Z88.2 Allergy status to sulfonamides; Z88.5 Allergy status to narcotic agent; Z88.8 Allergy status to other drugs, medicaments and biological substances; Z90.5 Acquired absence of kidney; Z91.040 Latex allergy status
CPT/HCPCS: 36415; 70450; 80053; 80306; 81001; 83735; 85025; 87086; 93005; 96360; 99285

== ENCOUNTER 2021-01-05 11:39 | Emergency (ER) | payer OTHER ==
[2021-01-05 11:43] VITALS: TEMP 98.1
--- NOTE | 2021-01-05 12:55 | ED ---
General Adult HPI - General Source: patient Mode of arrival: ambulatory Limitations: no limitations <Thalia Bardales - Last Filed: 01/06/21 06:09> <Angelica Mcguire - Last Filed: 01/06/21 08:56> - General Chief complaint: Skin/Abscess/Foreign Body Stated complaint: Bee sting Time Seen by Provider: 01/05/21 12:18 - History of Present Illness Initial comments: Patient is a 60-year-old female presenting to the emergency Department with complaints of a bee sting to her right middle finger that happened about 15 mi nutes prior to arrival. Patient states she has been told her whole life that she is ALLERGIC to bees and came in for further evaluation. She denies any chest pain or shortness of breath, no trouble breathing, no swelling of her finger, she has no further complaints. Upon arrival to the ER her vitals are stable. (Thalia Bardales) - Related Data Home Medications Medication Instructions Recorded Confirmed Venlafaxine HCl [Venlafaxine HCl 225 mg PO DAILY 10/21/16 10/31/20 ER] Loratadine [Claritin] 10 mg PO DAILY 03/29/19 10/31/20 Aspirin 81 mg PO DAILY 12/23/19 10/31/20 Atorvastatin [Lipitor] 80 mg PO HS 12/23/19 10/31/20 Beclomethasone Dip 80 Mcg/Puff 2 puff INHALATION RT-BID 12/23/19 10/31/20 [Qvar 80 mcg] Pioglitazone [Actos] 15 mg PO DAILY 12/23/19 10/31/20 Topiramate [Topamax] 50 mg PO HS 12/23/19 10/31/20 Nitroglycerin Sl Tabs [Nitrostat] 0.4 mg SL Q5M PRN 04/06/20 10/31/20 Pantoprazole Sodium [Protonix] 40 mg PO DAILY 04/06/20 10/31/20 Cariprazine HCl [Vraylar] 1.5 mg PO DAILY 05/13/20 10/31/20 Ergocalciferol [Vitamin D2 (1250 1,250 mcg PO WE 10/08/20 10/31/20 Mcg = 22681 Iu)] Insulin Aspart (For Pump) [NovoLOG 0.01 unit SQ-PUMP CONTINUOUS 10/08/20 10/31/20 (For Pump)] Levothyroxine Sodium [Synthroid] 175 mcg PO DAILY 10/08/20 10/31/20 Ondansetron Odt [Zofran ODT] 4 mg PO Q8H PRN 10/08/20 10/31/20 Amitriptyline HCl [Elavil] 25 mg PO HS PRN 10/27/20 10/31/20 Butalb/APAP/Caff 50-325-40Mg 1 tab PO Q12H PRN 10/27/20 10/31/20 [Fioricet 50-325-40] Isosorbide Dinitrate [Isordil] 10 mg PO BID 10/31/20 10/31/20 Previous Rx's Medication Instructions Recorded Clopidogrel [Plavix] 75 mg PO DAILY #30 tab 04/07/20 Gabapentin [Neurontin] 300 mg PO BID cap 04/07/20 Meclizine [Antivert] 25 mg PO TID #20 tab 10/27/20 Clotrimazole/Betamethasone Dip 1 applic TOPICAL BID 7 Days #1 tube 10/31/20 [Lotrisone Cream] Allergies Allergy/AdvReac Type Severity Reaction Status Date / Time grass pollen Allergy Unknown Verified 01/05/21 11:43 latex Allergy Rash/Hives Verified 01/05/21 11:43 Sulfa (Sulfonamide Allergy Rash/Hives/ Verified 01/05/21 11:43 Antibiotics) Swelling venom-honey bee Allergy Anaphylaxis Verified 01/05/21 11:43 morphine AdvReac Decreased Verified 01/05/21 11:43 Blood Pressure prochlorperazine edisylate AdvReac Vomiting Verified 01/05/21 11:43 [From Compazine] Review of Systems ROS Other: All systems not noted in ROS Statement are negative. <Thalia Bardales - Last Filed: 01/06/21 06:09> ROS Other: All systems not noted in ROS Statement are negative. <Angelica Mcguire - Last Filed: 01/06/21 08:56> ROS Statement: Those systems with pertinent positive or pertinent negative responses have been documented in the HPI. Past Medical History Past Medical History: Coronary Artery Disease (CAD), Cancer, COPD, CVA/TIA, Diabetes Mellitus, Deep Vein Thrombosis (DVT), Eye Disorder, GERD/Reflux, Hearing Disorder / Deafness, Hyperlipidemia, Hypertension, Myocardial Infarction ([place]), Renal Disease, Rheumatoid Arthritis (RA), Sleep Apnea/CPAP/BIPAP, Syncope, Thyroid Disorder Additional Past Medical History / Comment(s): 09/16/16 with SBO with surgery/possible septic emboli with cavitary lesions bilateral lungs. 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 coli Nov2015 requiring PICC line insertion for IV antibiotics, restless leg syndrome, peripheral neropathy. Hx bilateral glaucoma, hx syncope r/t low blood sugars. No CPAP use. [place]- December 2019 Last Myocardial Infarction Date:: 2019 History of Any Multi-Drug Resistant Organisms: ESBL, MRSA, VRE Date of last positivie culture/infection: 05/07/16 ESBL, 05/15/16 VRE, MRSA 09/2017 - upper lip MDRO Source:: URINE E.COLI, EC GALLINARUM Past Surgical History: Appendectomy, Bowel Resection, Section, Heart Catheterization With Stent, Hernia Repair Additional Past Surgical History / Comment(s): 09/30 exploratory laparotomy, lysis of adhesions bowel resection d/t obstruction. Hx: repair incarcerated incisional hernia with abdominal washout, thyroidectomy(non functioning), heart cath 06/28 - 100% occluded, unable to stent, partial nephrectomy for left kidney renal cell carcinoma, PICC line insertion (since removed), colonoscopy, bilateral cataract removal with lens implants, 2 Sections.Stent placed 03/2020 Past Anesthesia/Blood Transfusion Reactions: No Reported Reaction Date of Last Stent Placement:: 04/06/2020 Past Psychological History: Anxiety, Depression Smoking Status: Current every day smoker Past Alcohol Use History: None Reported Past Drug Use History: Marijuana - Past Family History Sister(s) Family Medical History: Cancer, Sleep Apnea/CPAP/BIPAP Additional Family Medical History / Comment(s): Patient has one sister that from liver cancer, borderline DM, PAD, hep. c. Brother(s) Family Medical History: Cancer, Coronary Artery Disease (CAD), Deep Vein Thrombosis (DVT), Hyperlipidemia Additional Family Medical History / Comment(s): Patient has 1 brother with past ETOH, past drug abuse, DVT's. She has a second brother that has from throat cancer. Daughter(s) Family Medical History: Diabetes Mellitus, Myocardial Infarction ([place]) Additional Family Medical History / Comment(s): Daughter at 23 yrs old from massive [place]. Father Family Medical History: Myocardial Infarction ([place]) Additional Family Medical History / Comment(s): from [place] at age 44 Mother Family Medical History: Cancer Additional Family Medical History / Comment(s): maeve breasts removed d/t cancer, hysterectomy d/t cancer. Mother from metastatic breast cancer. <Thalia Bardales - Last Filed: 01/06/21 06:09> General Exam Limitations: no limitations <Thalia Bardales - Last Filed: 01/06/21 06:09> - General Exam Comments Initial Comments: GENERAL: Patient is well-developed and well-nourished. Patient is nontoxic and in no acute distress. HEAD: Atraumatic, normocephalic. EYES: Pupils equal round and reactive to light, extraocular movements intact, sclera anicteric, conjunctiva are normal. Eyelids were unremarkable. ENT: TMs normal, nares patent, oropharynx clear without exudates. Moist mucous membranes. NECK: Normal range of motion, supple without lymphadenopathy or JVD. LUNGS: Unlabored respirations. Breath sounds clear to auscultation bilaterally and equal. No wheezes rales or rhonchi. HEART: Regular rate and rhythm without murmurs, rubs or gallops. ABDOMEN: Soft, nontender, normoactive bowel sounds. MUSCULOSKELETAL: Patient has some very mild swelling noted to the right middle digit, palmar aspect near the third MCP joint, where the sting happened. She has full joint range of motion. No clubbing or cyanosis. NEUROLOGICAL: Patient is alert and oriented x 3. SKIN: Warm, Dry, normal turgor, no rashes or lesions noted. (Thalia Bardales) Course Vital Signs 01/05/21 01/05/21 01/05/21 11:40 11:54 12:10 Temperature 98.1 F Pulse Rate 99 100 Respiratory 20 20 20 Rate Blood Pressure 145/79 148/93 O2 Sat by Pulse 99 100 Oximetry 01/05/21 12:58 Temperature Pulse Rate 84 Respiratory 22 Rate Blood Pressure 131/78 O2 Sat by Pulse 100 Oximetry Medical Decision Making <Thalia Bardales - Last Filed: 01/06/21 06:09> <Angelica Mcguire - Last Filed: 01/06/21 08:56> - Medical Decision Making Patient is a 60-year-old female here with complaints of a bee sting to her right middle finger it happened about 15 minutes prior to arrival. She was concerned that she has an ALLERGY to bees. Her exam is unremarkable, no acute findings. She has some very very mild swelling noted to the right middle finger, palmar aspect where the sting occurred. There is no erythema, no swelling of the rest of the right hand. She has no trouble breathing, no rashes. Patient was observed for approximately one hour in the ER without any further findings. She is stable for discharge. I recommended applying ice to the area, she may take Benadryl for any itchiness. She is agreeable to this plan of care and is stable for discharge. Return parameters were discussed with her and she verbalized understanding. Case discussed with Dr. Mcguire. (Thalia Bardales) I was available for consultation in the emergency department. The history and physical exam were done by the midlevel provider. I was consulted for this patients care. I reviewed the case with the midlevel provider and based on their presentation of the patient, I agree with the assessment, medical decision making and plan of care as documented. Chart was dictated using [employer] dictation software. Attempts were made to correct any dictation errors however some typographical errors may persist. (Angelica Mcguire) Disposition Is patient prescribed a controlled substance at d/c from ED?: No <Thalia Bardales - Last Filed: 01/06/21 06:09> <Angelica Mcguire - Last Filed: 01/06/21 08:56> Clinical Impression: Bee sting Disposition: HOME SELF-CARE Condition: Stable Instructions (If sedation given, give patient instructions): Insect Bite or Sting (ED) Additional Instructions: Please return to the Emergency Department if symptoms worsen or any other concerns. Apply ice to the area. If there is itching, may take Benadryl. Follow-up with your primary care physician. Referrals: Oralia Wahl MD [Primary Care Provider] - 1-2 days
[2021-01-05 13:00] VITALS: BP 131/78; PULSE 84; RESP 22
== END 2021-01-05 13:00 | disposition home or self-care (01) ==
LOC: EC 11:39
DX: T63.441A Toxic effect of venom of bees, accidental (unintentional), initial encounter (principal); J44.9 Chronic obstructive pulmonary disease, unspecified; I10 Essential (primary) hypertension; E03.9 Hypothyroidism, unspecified; E11.9 Type 2 diabetes mellitus without complications; E78.5 Hyperlipidemia, unspecified; I25.10 Atherosclerotic heart disease of native coronary artery without angina pectoris; I25.2 Old myocardial infarction; M06.9 Rheumatoid arthritis, unspecified; G47.30 Sleep apnea, unspecified; F32.9 Major depressive disorder, single episode, unspecified; F41.9 Anxiety disorder, unspecified; F17.200 Nicotine dependence, unspecified, uncomplicated; F12.90 Cannabis use, unspecified, uncomplicated; Z86.73 Personal history of transient ischemic attack (TIA), and cerebral infarction without residual deficits; Z86.718 Personal history of other venous thrombosis and embolism; Z79.890 Hormone replacement therapy; Z79.4 Long term (current) use of insulin; Z79.51 Long term (current) use of inhaled steroids; Z79.82 Long term (current) use of aspirin
CPT/HCPCS: 99283

== ENCOUNTER 2021-01-16 17:22 | Emergency (ER) | payer OTHER ==
[2021-01-16 18:08] VITALS: TEMP 98.1
[2021-01-16] MEDS ORDERED: SODIUM CHLORIDE 0.9% 500 ML 500 ML IV STA (18:43)
--- NOTE | 2021-01-16 18:50 | ED ---
General Adult HPI - General Chief complaint: Abdominal Pain Stated complaint: Abd pain Time Seen by Provider: 01/16/21 18:36 Source: patient, RN notes reviewed, old records reviewed Mode of arrival: ambulatory Limitations: no limitations - History of Present Illness Initial comments: 61-year-old female presenting for evaluation of abdominal pain. Patient states that she has had pain for about 3 weeks. This has worsened today. His right lower quadrant. She describes it as a burning sensation. Patient states she has had some constipation. No diarrhea. No vomiting she has had nausea. No fever. She has remote history of abdominal surgery. Patient is predominantly right lower quadrant and suprapubic region. Does not radiate. - Related Data Home Medications Medication Instructions Recorded Confirmed Venlafaxine HCl [Venlafaxine HCl 225 mg PO DAILY 10/21/16 01/16/21 ER] Loratadine [Claritin] 10 mg PO HS 03/29/19 01/16/21 Aspirin 81 mg PO DAILY 12/23/19 01/16/21 Atorvastatin [Lipitor] 80 mg PO HS 12/23/19 01/16/21 Pioglitazone [Actos] 15 mg PO DAILY 12/23/19 01/16/21 Pantoprazole Sodium [Protonix] 40 mg PO DAILY 04/06/20 01/16/21 Cariprazine HCl [Vraylar] 1.5 mg PO DAILY 05/13/20 01/16/21 Insulin Aspart (For Pump) [NovoLOG 0.01 unit SQ-PUMP CONTINUOUS 10/08/20 01/16/21 (For Pump)] Ondansetron Odt [Zofran ODT] 4 mg PO Q8H PRN 10/08/20 01/16/21 Amitriptyline HCl [Elavil] 25 mg PO HS 10/27/20 01/16/21 Butalb/APAP/Caff 50-325-40Mg 1 tab PO DAILY PRN 10/27/20 01/16/21 [Fioricet 50-325-40] Isosorbide Dinitrate [Isordil] 10 mg PO BID 10/31/20 01/16/21 Ascorbic Acid [Vitamin C] 500 mg PO DAILY 01/16/21 01/16/21 Cholecalciferol (Vitamin D3) 125 mcg PO DAILY 01/16/21 01/16/21 [Vitamin D3 (125 MCG = 5,000 IU)] Ezetimibe [Zetia] 10 mg PO DAILY 01/16/21 01/16/21 Levothyroxine Sodium [Synthroid] 150 mcg PO DAILY 01/16/21 01/16/21 Lisinopril [Zestril] 10 mg PO DAILY 01/16/21 01/16/21 Meclizine [Antivert] 25 mg PO HS 01/16/21 01/16/21 Multivitamins, Thera [Multivitamin 1 tab PO DAILY 01/16/21 01/16/21 (formulary)] diphenhydrAMINE HCL [Benadryl] 25 mg PO DAILY 01/16/21 01/16/21 Previous Rx's Medication Instructions Recorded Clopidogrel [Plavix] 75 mg PO DAILY #30 tab 04/07/20 Allergies Allergy/AdvReac Type Severity Reaction Status Date / Time grass pollen Allergy Unknown Verified 01/16/21 18:08 latex Allergy Rash/Hives Verified 01/16/21 18:08 Sulfa (Sulfonamide Allergy Rash/Hives/ Verified 01/16/21 18:08 Antibiotics) Swelling venom-honey bee Allergy Anaphylaxis Verified 01/16/21 18:08 morphine AdvReac Decreased Verified 01/16/21 18:08 Blood Pressure prochlorperazine edisylate AdvReac Vomiting Verified 01/16/21 18:08 [From Compazine] Review of Systems ROS Statement: Those systems with pertinent positive or pertinent negative responses have been documented in the HPI. ROS Other: All systems not noted in ROS Statement are negative. Past Medical History Past Medical History: Coronary Artery Disease (CAD), Cancer, COPD, CVA/TIA, Diabetes Mellitus, Deep Vein Thrombosis (DVT), Eye Disorder, GERD/Reflux, Hear ing Disorder / Deafness, Hyperlipidemia, Hypertension, Myocardial Infarction ([place]), Renal Disease, Rheumatoid Arthritis ([place]), Sleep Apnea/CPAP/BIPAP, Syncope, Thyroid Disorder Additional Past Medical History / Comment(s): 09/16/16 with SBO with surgery/possible septic emboli with cavitary lesions bilateral lungs. 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 coli 2015 requiring PICC line insertion for IV antibiotics, restless leg syndrome, peripheral neropathy. Hx bilateral glaucoma, hx syncope r/t low blood sugars. No CPAP use. [place]- December 2019 Last Myocardial Infarction Date:: 2019 History of Any Multi-Drug Resistant Organisms: ESBL, MRSA, VRE Date of last positivie culture/infection: 05/07/16 ESBL, 05/15/16 VRE, MRSA 09/2017 - upper lip MDRO Source:: URINE E.COLI, EC GALLINARUM Past Surgical History: Appendectomy, Bowel Resection, Section, Heart Catheterization With Stent, Hernia Repair Additional Past Surgical History / Comment(s): 09/30 exploratory laparotomy, lysis of adhesions bowel resection d/t obstruction. Hx: repair incarcerated incisional hernia with abdominal washout, thyroidectomy(non functioning), heart cath 06/28 - 100% occluded, unable to stent, partial nephrectomy for left kidney renal cell carcinoma, PICC line insertion (since removed), colonoscopy, bilateral cataract removal with lens implants, 2 Sections.Stent placed 03/2020 Past Anesthesia/Blood Transfusion Reactions: No Reported Reaction Date of Last Stent Placement:: 04/06/2020 Past Psychological History: Anxiety, Depression Smoking Status: Current every day smoker Past Alcohol Use History: None Reported Past Drug Use History: Marijuana - Past Family History Sister(s) Family Medical History: Cancer, Sleep Apnea/CPAP/BIPAP Additional Family Medical History / Comment(s): Patient has one sister that from liver cancer, borderline DM, PAD, hep. c. Brother(s) Family Medical History: Cancer, Coronary Artery Disease (CAD), Deep Vein Thrombosis (DVT), Hyperlipidemia Additional Family Medical History / Comment(s): Patient has 1 brother with past ETOH, past drug abuse, DVT's. She has a second brother that has from throat cancer. Daughter(s) Family Medical History: Diabetes Mellitus, Myocardial Infarction ([place]) Additional Family Medical History / Comment(s): Daughter at 23 yrs old from massive [place]. Father Family Medical History: Myocardial Infarction ([place]) Additional Family Medical History / Comment(s): from [place] at age 44 Mother Family Medical History: Cancer Additional Family Medical History / Comment(s): maeve breasts removed d/t cancer, hysterectomy d/t cancer. Mother from metastatic breast cancer. General Exam Limitations: no limitations General appearance: alert, in no apparent distress Head exam: Present: atraumatic, normocephalic Eye exam: Present: normal appearance, PERRL ENT exam: Present: normal exam Neck exam: Present: normal inspection. Absent: tenderness, meningismus Respiratory exam: Present: normal lung sounds bilaterally. Absent: respiratory distress, wheezes Cardiovascular Exam: Present: regular rate, normal rhythm GI/Abdominal exam: Present: soft, tenderness (Right lower quadrant tenderness to palpation). Absent: distended Extremities exam: Present: normal inspection, normal capillary refill. Absent: pedal edema, calf tenderness Neurological exam: Present: alert, oriented X3, CN II-XII intact. Absent: motor sensory deficit Psychiatric exam: Present: normal affect, normal mood Skin exam: Present: warm, dry, intact. Absent: cyanosis, diaphoretic Course Vital Signs 01/16/21 01/16/21 18:07 19:20 Temperature 98.1 F Pulse Rate 105 H 100 Respiratory 16 18 Rate Blood Pressure 111/76 130/75 O2 Sat by Pulse 99 100 Oximetry Medical Decision Making - Medical Decision Making 61-year-old female presenting for evaluation of right lower abdominal pain which is been present for the past 3 weeks. Patient is hemodynamically stable. Workup is initiated, the only abnormality is elevated blood glucose with a history of diabetes. CT is performed which shows air in the biliary system and the patient does indicate that she had a remote surgical procedure protecting her intestine to her common bile duct this was in the 1980s. She has no right upper quadrant or epigastric tenderness. Her pain is in the right lower quadrant. She will continue to follow up as an outpatient. Return parameters are discussed. If patient worsens she should return to the emergency department if she should develop fever she should return. - Lab Data Result diagrams: 01/16/21 19:11 01/16/21 19:11 Lab Results 01/16/21 01/16/21 01/16/21 Range/Units 19:11 19:11 19:11 WBC 7.1 (3.8-10.6) k/uL RBC 3.82 (3.80-5.40) m/uL Hgb 11.8 (11.4-16.0) gm/dL Hct 35.7 (34.0-46.0) % MCV 93.4 (80.0-100.0) fL MCH 30.8 (25.0-35.0) pg MCHC 33.0 (31.0-37.0) g/dL RDW 14.5 (11.5-15.5) % Plt Count 304 (150-450) k/uL MPV 7.6 Neutrophils % 66 % Lymphocytes % 27 % Monocytes % 4 % Eosinophils % 2 % Basophils % 0 % Neutrophils # 4.7 (1.3-7.7) k/uL Lymphocytes # 1.9 (1.0-4.8) k/uL Monocytes # 0.3 (0-1.0) k/uL Eosinophils # 0.2 (0-0.7) k/uL Basophils # 0.0 (0-0.2) k/uL PT (9.0-12.0) sec INR (<1.2) APTT (22.0-30.0) sec Sodium 135 L (137-145) mmol/L Potassium 5.0 (3.5-5.1) mmol/L Chloride 102 (98-107) mmol/L Carbon Dioxide 23 (22-30) mmol/L Anion Gap 10 mmol/L BUN 22 H (7-17) mg/dL Creatinine 1.18 H (0.52-1.04) mg/dL Est GFR (CKD-EPI)AfAm 58 (>60 ml/min/1.73 sqM) Est GFR (CKD-EPI)NonAf 50 (>60 ml/min/1.73 sqM) Glucose 479 H (74-99) mg/dL POC Glucose (mg/dL) (75-99) mg/dL POC Glu [employer] Teacher ID Plasma Lactic Acid Ab (0.7-2.0) mmol/L Calcium 9.2 (8.4-10.2) mg/dL Total Bilirubin <0.1 L (0.2-1.3) mg/dL AST 23 (14-36) U/L ALT 15 (4-34) U/L Alkaline Phosphatase 119 (38-126) U/L Total Protein 6.4 (6.3-8.2) g/dL Albumin 4.0 (3.5-5.0) g/dL Amylase 38 (30-110) U/L Lipase 55 (23-300) U/L Urine Color Yellow Urine Appearance Clear (Clear) Urine pH 5.0 (5.0-8.0) Ur Specific [employer] 1.029 (1.001-1.035) Urine Protein Trace H (Negative) Urine Glucose (UA) 4+ H (Negative) Urine Ketones Trace H (Negative) Urine Blood Negative (Negative) Urine Nitrite Negative (Negative) Urine Bilirubin Negative (Negative) Urine Urobilinogen <2.0 (<2.0) mg/dL Ur Leukocyte Esterase Trace H (Negative) Urine RBC 2 (0-5) /hpf Urine WBC 8 H (0-5) /hpf Ur Squamous Epith Cells 2 (0-4) /hpf Hyaline Casts 9 H (0-2) /lpf Urine Mucus Rare H (None) /hpf 01/16/21 01/16/21 01/16/21 Range/Units 19:11 19:11 22:11 WBC (3.8-10.6) k/uL RBC (3.80-5.40) m/uL Hgb (11.4-16.0) gm/dL Hct (34.0-46.0) % MCV (80.0-100.0) fL MCH (25.0-35.0) pg MCHC (31.0-37.0) g/dL RDW (11.5-15.5) % Plt Count (150-450) k/uL MPV Neutrophils % % Lymphocytes % % Monocytes % % Eosinophils % % Basophils % % Neutrophils # (1.3-7.7) k/uL Lymphocytes # (1.0-4.8) k/uL Monocytes # (0-1.0) k/uL Eosinophils # (0-0.7) k/uL Basophils # (0-0.2) k/uL PT 10.2 (9.0-12.0) sec INR 0.9 (<1.2) APTT 21.1 L (22.0-30.0) sec Sodium (137-145) mmol/L Potassium (3.5-5.1) mmol/L Chloride (98-107) mmol/L Carbon Dioxide (22-30) mmol/L Anion Gap mmol/L BUN (7-17) mg/dL Creatinine (0.52-1.04) mg/dL Est GFR (CKD-EPI)AfAm (>60 ml/min/1.73 sqM) Est GFR (CKD-EPI)NonAf (>60 ml/min/1.73 sqM) Glucose (74-99) mg/dL POC Glucose (mg/dL) 374 H (75-99) mg/dL POC Glu [employer] Teacher ID Olga Wang Plasma Lactic Acid Ab 1.6 (0.7-2.0) mmol/L Calcium (8.4-10.2) mg/dL Total Bilirubin (0.2-1.3) mg/dL AST (14-36) U/L ALT (4-34) U/L Alkaline Phosphatase (38-126) U/L Total Protein (6.3-8.2) g/dL Albumin (3.5-5.0) g/dL Amylase (30-110) U/L Lipase (23-300) U/L Urine Color Urine Appearance (Clear) Urine pH (5.0-8.0) Ur Specific [employer] (1.001-1.035) Urine Protein (Negative) Urine Glucose (UA) (Negative) Urine Ketones (Negative) Urine Blood (Negative) Urine Nitrite (Negative) Urine Bilirubin (Negative) Urine Urobilinogen (<2.0) mg/dL Ur Leukocyte Esterase (Negative) Urine RBC (0-5) /hpf Urine WBC (0-5) /hpf Ur Squamous Epith Cells (0-4) /hpf Hyaline Casts (0-2) /lpf Urine Mucus (None) /hpf Disposition Clinical Impression: Abdominal pain Disposition: HOME SELF-CARE Condition: Fair Instructions (If sedation given, give patient instructions): Abdominal Pain (ED) Is patient prescribed a controlled substance at d/c from ED?: No Referrals: Oralia Wahl MD [Primary Care Provider] - 1-2 days Time of Disposition: 22:15
[2021-01-16] MEDS: HYDROmorphone 0.5 MG/0.5 ML SYRINGE IVP STA ×2 (19:20→19:26)
[2021-01-16] MEDS ORDERED: HYDROmorphone 0.5 MG/0.5 ML SYRINGE IVP STA (19:23)
[2021-01-16 19:29] LABS: Basophils % (A) 0 %; Eosinophils # (A) 0.2 k/uL (0-0.7); Eosinophils % (A) 2 %; HCT 35.7 % (34.0-46.0); HGB 11.8 gm/dL (11.4-16.0); Lymphocytes # (A) 1.9 k/uL (1.0-4.8); Lymphocytes % (A) 27 %; MCH 30.8 pg (25.0-35.0); MCV 93.4 fL (80.0-100.0); Mean Platelet Volume 7.6; Monocytes # (A) 0.3 k/uL (0-1.0); Monocytes % (A) 4 %; Neutrophils # (A) 4.7 k/uL (1.3-7.7); Neutrophils % (A) 66 %; Platelet Count 304 k/uL (150-450); RBC 3.82 m/uL (3.80-5.40); RDW 14.5 % (11.5-15.5); WBC 7.1 k/uL (3.8-10.6)
[2021-01-16 19:31] VITALS: RESP 18
[2021-01-16 19:40] LABS: Appearance,Urine Clear (Clear); Bilirubin,Urine Negative (Negative); Blood,Urine Negative (Negative); Color,Urine Yellow; Glucose,Urine (UA) 4+ (Negative); Hyaline Casts,Urine 9 /lpf (0-2); Ketones,Urine Trace (Negative); Leukocyte Esterase,Urine Trace (Negative); Mucus,Urine Rare /hpf; Nitrite,Urine Negative (Negative); Protein,Urine Trace (Negative); RBC,Urine 2 /hpf (0-5); Specific Gravity,Urine 1.029 (1.001-1.035); Squamous Epithelial Cell,Urine 2 /hpf (0-4); Urobilinogen,Urine <2.0 mg/dL (<2.0); WBC,Urine 8 /hpf (0-5)
[2021-01-16 19:43] LABS: ALT 15 U/L (4-34); AST 23 U/L (14-36); African American GFR (CKD) 58 (>60 ml/min/1.73 sqM); Alkaline Phosphatase 119 U/L (38-126); Amylase 38 U/L (30-110); Anion Gap 10 mmol/L; Blood Urea Nitrogen 22 mg/dL (7-17); Calcium 9.2 mg/dL (8.4-10.2); Carbon Dioxide 23 mmol/L (22-30); Chloride 102 mmol/L (98-107); Glucose 479 mg/dL (74-99); Lipase 55 U/L (23-300); Non-African American GFR(CKD) 50 (>60 ml/min/1.73 sqM); Sodium 135 mmol/L (137-145); Total Bilirubin <0.1 mg/dL (0.2-1.3); Total Protein 6.4 g/dL (6.3-8.2)
[2021-01-16 19:46] LABS: INR 0.9 (<1.2); Prothrombin Time 10.2 sec (9.0-12.0)
[2021-01-16 19:52] LABS: Partial Thromboplastin Time 21.1 sec (22.0-30.0)
--- NOTE | 2021-01-16 21:01 | CT ---
EXAMINATION TYPE: CT abdomen pelvis wo con DATE OF EXAM: 01/16/2021 COMPARISON: 09/30/2020 HISTORY: burning abd pain x3 weeks CT DLP: 633.2 mGycm Automated exposure control for dose reduction was used. Images obtained from the diaphragm to the floor the pelvis without contrast. Lung bases are clear of infiltrate. There is 1 cm calcified granuloma left lower lobe. There is no pl eural effusion. Heart size is normal. There is some air in the biliary tree. Spleen is intact. There is no pancreatic mass. Liver has elen l size and contour. Stomach is intact. There is no adrenal mass. There is deformity of the left kidney with cortical thinning in the upper a nd lower pole with calcification. Right kidney appears normal. There is no hydronephrosis. There is n o retroperitoneal adenopathy. Abdominal aorta is atheromatous. There is no inguinal hernia. Uterus is anteverted. I see no pelvic mass. There is a first-degree L5-S1 spondylolisthesis. There is L5 spond ylolysis. There is narrowing of L5-S1 disc space. There is no lumbar compression fracture. The bony p drew is intact. Hip joints are intact. There is no ascites. There is no free air. There is no evidence of a bowel obstruction. IMPRESSION: There is some apparent cholecystectomy compared to old exam. There is reflux of air into the biliary tree anteriorly. No dilated ducts. This should be compared to the surgical history. Deformity of the left kidney consistent with scarring and possible chronic pyelonephritis. Unchanged.
[2021-01-16] MEDS ORDERED: INSULIN REGULAR 100 UNIT/ML VIAL (IV) IV ONE (21:17)
[2021-01-16 22:12] LABS: Glucose,Whole Blood 374 mg/dL (75-99)
[2021-01-17 00:15] VITALS: BP 126/74; PULSE 94
== END 2021-01-17 00:10 | disposition home or self-care (01) ==
LOC: EC 17:22
DX: R10.31 Right lower quadrant pain (principal); F17.200 Nicotine dependence, unspecified, uncomplicated; J44.9 Chronic obstructive pulmonary disease, unspecified; E78.5 Hyperlipidemia, unspecified; I10 Essential (primary) hypertension; I25.2 Old myocardial infarction; E03.9 Hypothyroidism, unspecified; K21.9 Gastro-esophageal reflux disease without esophagitis; M06.9 Rheumatoid arthritis, unspecified; Z91.040 Latex allergy status; Z90.49 Acquired absence of other specified parts of digestive tract; Z88.8 Allergy status to other drugs, medicaments and biological substances; Z91.09 Other allergy status, other than to drugs and biological substances; Z88.2 Allergy status to sulfonamides; Z88.5 Allergy status to narcotic agent; Z91.030 Bee allergy status; Z79.899 Other long term (current) drug therapy; Z96.41 Presence of insulin pump (external) (internal); Z79.890 Hormone replacement therapy
CPT/HCPCS: 36415; 80053; 82150; 83605; 83690; 85025; 85610; 85730; 81001; 74176; 99284; 96374; 96361; J1170

== ENCOUNTER 2021-02-27 18:42 | Observation (INO) | payer OTHER ==
[2021-02-27] MEDS ORDERED: SODIUM CHLORIDE 0.9% 1,000 ML IV STA (19:01)
--- NOTE | 2021-02-27 19:02 | ED ---
General Adult HPI - General Chief complaint: Syncope Stated complaint: Dizziness Time Seen by Provider: 02/27/21 18:44 Source: EMS Mode of arrival: EMS Limitations: no limitations - History of Present Illness Initial comments: Dictation was produced using [employer] dictation software. please excuse any grammatical, word or spelling errors. Chief Complaint: 61-year-old female multiple comorbidities presents to the emergency department for concerns of seizure versus syncope History of Present Illness: 61-year-old female she states that she leaves she had a seizure today. She felt like her body was shaking. She states she doesn't have a seizure doctor or take seizure medicines but she did have an EEG performed and was told she had seizures. Patient states she did not fully lose consciousness. It said today she's been feeling like the room is spinning. Patient denies any numbness stinging paresthesias to the extremities. States that she has room spinning is not worse with movements. Denies any headache. No neck pain. She states that she has internal shingles in her abdomen. The ROS documented in this emergency department record has been reviewed and confirmed by me. Those systems with pertinent positive or negative responses have been documented in the HPI. All other systems are other negative and/or noncontributory. PHYSICAL EXAM: General Impression: Alert and oriented x3, not in acute distress HEENT: Normocephalic atraumatic, extra-ocular movements intact, pupils equal and reactive to light bilaterally, mucous membranes moist. Cardiovascular: Heart regular rate and rhythm Chest: Able to complete full sentences, no retractions, no tachypnea Abdomen: abdomen soft, non-tender, non-distended, no organomegaly Musculoskeletal: Pulses present and equal in all extremities, no peripheral edema Motor: no focal deficits noted Neurological: CN II-XII grossly intact, no focal motor or sensory deficits no delta, direction changing nystagmus Skin: Intact with no visualized rashes Psych: Normal affect and mood ED course: 61-year-old female presents emergency department for seizure versus syncope. Vital signs upon arrival shows heart rate of 111, rest of vital signs within acceptable limits. Patient's medications are reviewed. She has direction changing nystagmus with persistent vertiginous symptoms. Chart review was performed. There does not appear to be any sort of workup for patient's vertigo. She is not quite the best historian. She does have a computed tomography scan from [facility] of this year showing old infarcted areas. Patient's event was unwitnessed. She states that she was fully awake during the event. Unlikely to be tonic-clonic seizure episode. Patient is direction changing nystagmus. Medications reviewed. No obvious source of nystagmus. EKG interpretation: Ventricular rate quality, sinus tachycardia, DC interval 146, QRS 82, QTC 479. No DC prolongation, no QTC prolongation, no ST or T-wave changes noted. EKG compared to 01/01/2021 showing no changes. Overall, this EKG is unremarkable CBC unremarkable. Coag panel is negative. Metabolic panel within except limits. Except for mild hyperglycemia and glucose of 60. Patient given dextrose. Serum glucoses will be measured. Patient's insulin pump was turned off. Serum alcohol is negative. Computed tomography scan of the brain and CT angios shows no acute processes. Patient reevaluated at bedside at 9:40 PM. She still complaining of vertiginous symptoms. She still having persistent direction changing nystagmus. His concerns of central cause of nystagmus versus vertebrobasilar insufficiency. Patient will be admitted with consultation to neurology. - Related Data Home Medications Medication Instructions Recorded Confirmed Venlafaxine HCl [Venlafaxine HCl 225 mg PO DAILY 10/21/16 02/27/21 ER] Loratadine [Claritin] 10 mg PO HS 03/29/19 02/27/21 Aspirin 81 mg PO DAILY 12/23/19 02/27/21 Atorvastatin [Lipitor] 80 mg PO HS 12/23/19 02/27/21 Pioglitazone [Actos] 15 mg PO DAILY 12/23/19 02/27/21 Pantoprazole Sodium [Protonix] 40 mg PO DAILY 04/06/20 02/27/21 Cariprazine HCl [Vraylar] 1.5 mg PO DAILY 05/13/20 02/27/21 Insulin Aspart (For Pump) [NovoLOG 0.01 unit SQ-PUMP CONTINUOUS 10/08/20 02/27/21 (For Pump)] Ondansetron Odt [Zofran ODT] 4 mg PO Q8H PRN 10/08/20 02/27/21 Amitriptyline HCl [Elavil] 25 mg PO HS 10/27/20 02/27/21 Butalb/APAP/Caff 50-325-40Mg 1 tab PO DAILY PRN 10/27/20 02/27/21 [Fioricet 50-325-40] Isosorbide Dinitrate [Isordil] 10 mg PO BID 10/31/20 02/27/21 Ascorbic Acid [Vitamin C] 500 mg PO DAILY 01/16/21 02/27/21 Cholecalciferol (Vitamin D3) 125 mcg PO DAILY 01/16/21 02/27/21 [Vitamin D3 (125 MCG = 5,000 IU)] Ezetimibe [Zetia] 10 mg PO DAILY 01/16/21 02/27/21 Levothyroxine Sodium [Synthroid] 150 mcg PO DAILY 01/16/21 02/27/21 Lisinopril [Zestril] 10 mg PO DAILY 01/16/21 02/27/21 Meclizine [Antivert] 25 mg PO HS 01/16/21 02/27/21 Multivitamins, Thera [Multivitamin 1 tab PO DAILY 01/16/21 02/27/21 (formulary)] diphenhydrAMINE HCL [Benadryl] 25 mg PO DAILY 01/16/21 02/27/21 Diclofenac Sodium Gel [Voltaren 2 gm TOPICAL QID PRN 02/27/21 02/27/21 Gel] Gabapentin [Neurontin] 300 mg PO TID PRN 02/27/21 02/27/21 Nitroglycerin Sl Tabs [Nitrostat] 0.4 mg SUBLINGUAL Q5M PRN 02/27/21 02/27/21 Sucralfate [Carafate] 1 gm PO HS 02/27/21 02/27/21 valACYclovir HCL [Valtrex] 1,000 mg PO TID 02/27/21 02/27/21 Previous Rx's Medication Instructions Recorded Clopidogrel [Plavix] 75 mg PO DAILY #30 tab 04/07/20 Allergies Allergy/AdvReac Type Severity Reaction Status Date / Time grass pollen Allergy Unknown Verified 02/27/21 20:55 latex Allergy Rash/Hives Verified 02/27/21 20:55 Sulfa (Sulfonamide Allergy Rash/Hives/ Verified 02/27/21 20:55 Antibiotics) Swelling venom-honey bee Allergy Anaphylaxis Verified 02/27/21 20:55 morphine AdvReac Decreased Verified 02/27/21 20:55 Blood Pressure prochlorperazine edisylate AdvReac Vomiting Verified 02/27/21 20:55 [From Compazine] Review of Systems ROS Statement: Those systems with pertinent positive or pertinent negative responses have been documented in the HPI. ROS Other: All systems not noted in ROS Statement are negative. Past Medical History Past Medical History: Coronary Artery Disease (CAD), Cancer, COPD, CVA/TIA, Diabetes Mellitus, Deep Vein Thrombosis (DVT), Eye Disorder, GERD/Reflux, Hearing Disorder / Deafness, Hyperlipidemia, Hypertension, Myocardial Infarction (NC), Renal Disease, Rheumatoid Arthritis (RA), Sleep Apnea/CPAP/BIPAP, Syncope, Thyroid Disorder Additional Past Medical History / Comment(s): 09/16/16 with SBO with surgery/possible septic emboli with cavitary lesions bilateral lungs. 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 coli 2015 requiring P ICC line insertion for IV antibiotics, restless leg syndrome, peripheral neropathy. Hx bilateral glaucoma, hx syncope r/t low blood sugars. No CPAP use. NC- December 2019 Last Myocardial Infarction Date:: 2019 History of Any Multi-Drug Resistant Organisms: ESBL, MRSA, VRE Date of last positivie culture/infection: 05/07/16 ESBL, 05/15/16 VRE, MRSA 09/2017 - upper lip MDRO Source:: URINE E.COLI, EC GALLINARUM Past Surgical History: Appendectomy, Bowel Resection, Section, Heart Catheterization With Stent, Hernia Repair Additional Past Surgical History / Comment(s): 09/30 exploratory laparotomy, lysis of adhesions bowel resection d/t obstruction. Hx: repair incarcerated incisional hernia with abdominal washout, thyroidectomy(non functioning), heart cath 06/28 - 100% occluded, unable to stent, partial nephrectomy for left kidney renal cell carcinoma, PICC line insertion (since removed), colonoscopy, bilateral cataract removal with lens implants, 2 Sections.Stent placed 03/2020 Past Anesthesia/Blood Transfusion Reactions: No Reported Reaction Date of Last Stent Placement:: 04/06/2020 Past Psychological History: Anxiety, Depression Smoking Status: Current every day smoker Past Alcohol Use History: None Reported Past Drug Use History: Marijuana - Past Family History Sister(s) Family Medical History: Cancer, Sleep Apnea/CPAP/BIPAP Additional Family Medical History / Comment(s): Patient has one sister that from liver cancer, borderline DM, PAD, hep. c. Brother(s) Family Medical History: Cancer, Coronary Artery Disease (CAD), Deep Vein Thrombosis (DVT), Hyperlipidemia Additional Family Medical History / Comment(s): Patient has 1 brother with past ETOH, past drug abuse, DVT's. She has a second brother that has from throat cancer. Daughter(s) Family Medical History: Diabetes Mellitus, Myocardial Infarction (NC) Additional Family Medical History / Comment(s): Daughter at 23 yrs old from massive NC. Father Family Medical History: Myocardial Infarction (NC) Additional Family Medical History / Comment(s): from mi at age 44 Mother Family Medical History: Cancer Additional Family Medical History / Comment(s): maeve breasts removed d/t cancer, hysterectomy d/t cancer. Mother from metastatic breast cancer. General Exam Limitations: no limitations Course Vital Signs 02/27/21 02/27/21 18:42 20:00 Temperature 98.7 F Pulse Rate 111 H 101 H Respiratory 18 18 Rate Blood Pressure 134/119 106/59 O2 Sat by Pulse 99 100 Oximetry Medical Decision Making - Lab Data Result diagrams: 02/27/21 19:01 02/27/21 19:01 Lab Results 02/27/21 02/27/21 02/27/21 Range/Units 19:01 19:01 19:01 WBC 7.1 (3.8-10.6) k/uL RBC 3.90 (3.80-5.40) m/uL Hgb 12.0 (11.4-16.0) gm/dL Hct 35.7 (34.0-46.0) % MCV 91.3 (80.0-100.0) fL MCH 30.8 (25.0-35.0) pg MCHC 33.7 (31.0-37.0) g/dL RDW 14.1 (11.5-15.5) % Plt Count 283 (150-450) k/uL MPV 7.4 Neutrophils % 48 % Lymphocytes % 42 % Monocytes % 5 % Eosinophils % 3 % Basophils % 0 % Neutrophils # 3.4 (1.3-7.7) k/uL Lymphocytes # 3.0 (1.0-4.8) k/uL Monocytes # 0.4 (0-1.0) k/uL Eosinophils # 0.2 (0-0.7) k/uL Basophils # 0.0 (0-0.2) k/uL PT 10.0 (9.0-12.0) sec INR 0.9 (<1.2) APTT 21.3 L (22.0-30.0) sec Sodium 139 (137-145) mmol/L Potassium 4.5 (3.5-5.1) mmol/L Chloride 103 (98-107) mmol/L Carbon Dioxide 26 (22-30) mmol/L Anion Gap 10 mmol/L BUN 17 (7-17) mg/dL Creatinine 1.19 H (0.52-1.04) mg/dL Est GFR (CKD-EPI)AfAm 57 (>60 ml/min/1.73 sqM) Est GFR (CKD-EPI)NonAf 49 (>60 ml/min/1.73 sqM) Glucose 68 L (74-99) mg/dL Plasma Lactic Acid Ab (0.7-2.0) mmol/L Calcium 10.0 (8.4-10.2) mg/dL Magnesium 1.8 (1.6-2.3) mg/dL Total Bilirubin 0.3 (0.2-1.3) mg/dL AST 24 (14-36) U/L ALT 13 (4-34) U/L Alkaline Phosphatase 100 (38-126) U/L Total Protein 6.7 (6.3-8.2) g/dL Albumin 4.1 (3.5-5.0) g/dL Serum Alcohol <10 mg/dL 02/27/21 Range/Units 19:01 WBC (3.8-10.6) k/uL RBC (3.80-5.40) m/uL Hgb (11.4-16.0) gm/dL Hct (34.0-46.0) % MCV (80.0-100.0) fL MCH (25.0-35.0) pg MCHC (31.0-37.0) g/dL RDW (11.5-15.5) % Plt Count (150-450) k/uL MPV Neutrophils % % Lymphocytes % % Monocytes % % Eosinophils % % Basophils % % Neutrophils # (1.3-7.7) k/uL Lymphocytes # (1.0-4.8) k/uL Monocytes # (0-1.0) k/uL Eosinophils # (0-0.7) k/uL Basophils # (0-0.2) k/uL PT (9.0-12.0) sec INR (<1.2) APTT (22.0-30.0) sec Sodium (137-145) mmol/L Potassium (3.5-5.1) mmol/L Chloride (98-107) mmol/L Carbon Dioxide (22-30) mmol/L Anion Gap mmol/L BUN (7-17) mg/dL Creatinine (0.52-1.04) mg/dL Est GFR (CKD-EPI)AfAm (>60 ml/min/1.73 sqM) Est GFR (CKD-EPI)NonAf (>60 ml/min/1.73 sqM) Glucose (74-99) mg/dL Plasma Lactic Acid Ab 1.9 (0.7-2.0) mmol/L Calcium (8.4-10.2) mg/dL Magnesium (1.6-2.3) mg/dL Total Bilirubin (0.2-1.3) mg/dL AST (14-36) U/L ALT (4-34) U/L Alkaline Phosphatase (38-126) U/L Total Protein (6.3-8.2) g/dL Albumin (3.5-5.0) g/dL Serum Alcohol mg/dL Disposition Clinical Impression: Vertigo Disposition: ADMITTED IP TO THIS HOSP Condition: Fair Referrals: Oralia Wahl MD [Primary Care Provider] - 1-2 days
[2021-02-27 19:12] LABS: Basophils % (A) 0 %; Eosinophils # (A) 0.2 k/uL (0-0.7); Eosinophils % (A) 3 %; HCT 35.7 % (34.0-46.0); Lymphocytes % (A) 42 %; MCH 30.8 pg (25.0-35.0); MCHC 33.7 g/dL (31.0-37.0); MCV 91.3 fL (80.0-100.0); Mean Platelet Volume 7.4; Monocytes # (A) 0.4 k/uL (0-1.0); Monocytes % (A) 5 %; Neutrophils # (A) 3.4 k/uL (1.3-7.7); Neutrophils % (A) 48 %; Platelet Count 283 k/uL (150-450); RDW 14.1 % (11.5-15.5); WBC 7.1 k/uL (3.8-10.6)
[2021-02-27 19:22] LABS: ALT 13 U/L (4-34); AST 24 U/L (14-36); African American GFR (CKD) 57 (>60 ml/min/1.73 sqM); Albumin 4.1 g/dL (3.5-5.0); Alcohol <10 mg/dL; Alkaline Phosphatase 100 U/L (38-126); Anion Gap 10 mmol/L; Blood Urea Nitrogen 17 mg/dL (7-17); Carbon Dioxide 26 mmol/L (22-30); Chloride 103 mmol/L (98-107); Glucose 68 mg/dL (74-99); Magnesium 1.8 mg/dL (1.6-2.3); Non-African American GFR(CKD) 49 (>60 ml/min/1.73 sqM); Potassium 4.5 mmol/L (3.5-5.1); Sodium 139 mmol/L (137-145); Total Bilirubin 0.3 mg/dL (0.2-1.3); Total Protein 6.7 g/dL (6.3-8.2)
[2021-02-27 19:28] LABS: INR 0.9 (<1.2)
[2021-02-27 19:29] LABS: Partial Thromboplastin Time 21.3 sec (22.0-30.0)
[2021-02-27] MEDS ORDERED: DEXTROSE 50% SYRINGE 50 ML IVP STA (19:35)
--- NOTE | 2021-02-27 19:55 | CT ---
EXAMINATION TYPE: CT brain wo con DATE OF EXAM: 02/27/2021 COMPARISON: 10/27/2020 HISTORY: ams, weakness, hx of cva CT DLP: 1046.2 mGycm Automated exposure control for dose reduction was used. There is mild cerebral atrophy. There is no mass effect nor midline shift. There is no sign of intrac ranial hemorrhage. There is 3 cm wedge-shaped area of hypodensity in the right posterior parietal lob e related to old infarct. The calvarium is intact. IMPRESSION: Old right parietal infarct. No acute intracranial abnormality.
--- NOTE | 2021-02-27 20:27 | CT ---
EXAMINATION TYPE: CT angio head neck DATE OF EXAM: 02/27/2021 COMPARISON: None HISTORY: cva CT DLP: 449.5 mGycm Automated exposure control for dose reduction was used. CONTRAST: Performed with IV Contrast, patient injected with 65cc mL of Isovue 370. There are 3-D post processed images. There is normal branching pattern of the great vessels on the aortic arch. There is bilateral arteria l flow in the subclavian arteries. There is arterial flow in the common internal and external carotid arteries bilaterally. There is wide patency of the carotid artery bifurcations. There is arterial flow in the anterior middle and posterior cerebral arteries. There is arterial flow in the vertebrobasilar artery system. There is no evidence of carotid or vertebral artery aneurysm o r dissection. There is no mass effect. There is no evidence of intracranial arterial stenosis. I see no sign of int racranial aneurysm or neovascularity. There is normal enhancement of the venous sinuses. IMPRESSION: Negative CT angiogram of the neck. Negative CT angiogram of the brain.
[2021-02-27] MEDS ORDERED: NALOXONE 0.4 MG/ML 1 ML VIAL IV PRN (21:35)
[2021-02-27] MEDS ORDERED: ONDANSETRON 4 MG/2 ML VIAL IVP PRN (21:35)
[2021-02-27] MEDS ORDERED: SODIUM CHLORIDE 0.9% 1,000 ML IV SCH (21:45)
[2021-02-27 22:00] LABS: Glucose,Whole Blood 142 mg/dL (75-99)
[2021-02-28 01:28] LABS: Glucose,Whole Blood 115 mg/dL (75-99)
[2021-02-28 01:28] LABS: Glucose,Whole Blood 138 mg/dL (75-99)
[2021-02-28 01:28] LABS: Glucose,Whole Blood 200 mg/dL (75-99)
[2021-02-28 02:11] LABS: Glucose,Whole Blood 259 mg/dL (75-99)
[2021-02-28] MEDS ORDERED: NITROGLYCERIN SL TABS 0.4 MG TAB SUBLINGUAL PRN (03:01)
[2021-02-28 03:06] LABS: Glucose,Whole Blood 269 mg/dL (75-99)
[2021-02-28] MEDS ORDERED: LEVOTHYROXINE 75 MCG TAB PO SCH (06:30)
[2021-02-28 07:03] VITALS: BP 133/74; PULSE 92; RESP 18; TEMP 98
[2021-02-28 07:26] LABS: Glucose,Whole Blood 287 mg/dL (75-99)
[2021-02-28] MEDS: INSULIN ASPART (NovoLOG) 100 UNIT/ML VIAL SQ SCH ×2 (08:16→12:44)
[2021-02-28] MEDS ORDERED: lisinopriL 10 MG TAB PO SCH (09:00)
[2021-02-28] MEDS ORDERED: PANTOPRAZOLE 40 MG TABLET PO SCH (09:00)
[2021-02-28] MEDS ORDERED: ASCORBIC ACID 500 MG TAB PO SCH (09:00)
[2021-02-28] MEDS ORDERED: ISOSORBIDE DINITRATE 10 MG TAB PO SCH (09:00)
[2021-02-28] MEDS ORDERED: ONDANSETRON ODT 4 MG TAB PO PRN (09:00)
[2021-02-28] MEDS ORDERED: VENLAFAXINE HCL ER 75 MG CAP PO SCH (09:00)
[2021-02-28] MEDS ORDERED: GABAPENTIN 300 MG CAP PO PRN (09:00)
[2021-02-28] MEDS ORDERED: DICLOFENAC SODIUM GEL 100 GM TUBE TOPICAL PRN (09:00)
[2021-02-28] MEDS ORDERED: CHOLECALCIFEROL 25 MCG (1000 IU) TABLET PO SCH (09:00)
[2021-02-28] MEDS ORDERED: ASPIRIN 81 MG PO SCH (09:00)
[2021-02-28] MEDS ORDERED: CLOPIDOGREL 75 MG TAB PO SCH (09:00)
[2021-02-28] MEDS ORDERED: valACYclovir HCL 1,000 MG TABLET PO SCH (09:00)
[2021-02-28] MEDS ORDERED: MULTIVITAMINS, THERA 1 EACH TAB PO SCH (09:00)
[2021-02-28] MEDS ORDERED: diphenhydrAMINE 25 MG CAP PO SCH (09:00)
[2021-02-28] MEDS ORDERED: PIOGLITAZONE 15 MG TAB PO SCH (09:00)
[2021-02-28] MEDS ORDERED: EZETIMIBE 10 MG TAB PO SCH (09:00)
[2021-02-28] MEDS ORDERED: BUTALB/APAP/CAFF 50-325-40MG TAB PO PRN (09:00)
[2021-02-28] MEDS ORDERED: NON FORMULARY DRUG (Cariprazine Hcl [Vraylar] 1.5 MG Capsule) PO SCH (09:00)
[2021-02-28 12:31] LABS: Glucose,Whole Blood 572 mg/dL (75-99)
[2021-02-28] MEDS ORDERED: INSULIN ASPART (NovoLOG) 100 UNIT/ML VIAL SQ ONE (12:36)
--- NOTE | 2021-02-28 12:42 | P.CNNES ---
History of Present Illness Consult date: 02/28/21 Requesting physician: Adrián Patton Reason for Consult: direction changing nystagmus History of Present Illness: This is a 61-year-old woman with medical history of stroke and TIA, diabetes mellitus, hypertension, hyperlipidemia, myocardial infarction, coronary artery disease status post stent who presented emergency department on 02/27/2021 for dizziness for the last 2 weeks. She notified me that she's feeling dizzy for the last 2 weeks and she feels that the room is spinning well and it seems that when she is moving around both she is resting her dizziness resolves. She denies of any ringing in the ears, any hearing loss that's new, any visual disturbance, any fevers. She denies of any focal weakness or numbness. She denies of any headache. She feels her dizziness is improved that today compared to initial presentation. She denies of any head trauma. She stated that she is on aspirin and Plavix but has stopped because she is to get it and get colonoscopy within a few days. She also notified him that she felt the room is spinning and on their examination the felt the patient the had persistent vertiginous symptoms with nystagmus and another diagnosis they suspected vertigo suspect vertebrobasilar insufficiency. According to the patient she has tremors but denies loss of consciousness but d enies jerking of extremities. She denies tongue bite or incontinence associated with episodes. Upon asking if she had any EEG that confirmed seizure she said she does not know. She denies telling me about seizure and upon speaking with primary team they are not aware she notified them she has seizure. According to EMR she has syncope episodes. Upon looking at the medical record the patient had an EEG in our facility and 2015 and it was normal. Upon asking the patient about her episode of stroke and TIA she said that she does not know. Patient is on multiple home medication as as stated earlier she is on aspirin 81, Plavix 75, insulin, Antivert, lisinopril, Synthroid, valacyclovir for her shingles, gabapentin 300 mg 1 tablet 3 times a day when necessary, Some of the workup in the hospital consisted of: CT of the head is reported as old right parietal infarct. No acute intracranial abnormality. CT angiography of the head and neck was reported as negative. CBC with differential is unremarkable Chemistry panel on presentation she had a serum glucose of 68 which is slightly low and the creatinine is 1.19 otherwise the rest of the chem history panel is unremarkable. Serum alcohol level was less than 10 Ugalde virus patient was not detected Review of Systems Review of system: The 12 point system was reviewed and apparent positive and negative per HPI. Past Medical History Past Medical History: Coronary Artery Disease (CAD), Cancer, COPD, CVA/TIA, Diabetes Mellitus, Deep Vein Thrombosis (DVT), Eye Disorder, GERD/Reflux, Hearing Disorder / Deafness, Hyperlipidemia, Hypertension, Myocardial Infarction ([place]), Renal Disease, Rheumatoid Arthritis ([place]), Sleep Apnea/CPAP/BIPAP, Syncope, Thyroid Disorder Additional Past Medical History / Comment(s): 09/16/16 with SBO with surgery/possible septic emboli with cavitary lesions bilateral lungs. 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 coli 2015 requiring PICC line insertion for IV antibiotics, restless leg syndrome, peripheral baljeet catrachita. Hx bilateral glaucoma, hx syncope r/t low blood sugars. No CPAP use. [place]- December 2019 Last Myocardial Infarction Date:: 2019 History of Any Multi-Drug Resistant Organisms: ESBL, MRSA, VRE Date of last positivie culture/infection: 05/07/16 ESBL, 05/15/16 VRE, MRSA 09/2017 - upper lip MDRO Source:: URINE E.COLI, EC GALLINARUM Past Surgical History: Appendectomy, Bowel Resection, Section, Heart Catheterization With Stent, Hernia Repair Additional Past Surgical History / Comment(s): 09/30 exploratory laparotomy, lysis of adhesions bowel resection d/t obstruction. Hx: repair incarcerated incisional hernia with abdominal washout, thyroidectomy(non functioning), heart cath 06/28 - 100% occluded, unable to stent, partial nephrectomy for left kidney renal cell carcinoma, PICC line insertion (since removed), colonoscopy, bilateral cataract removal with lens implants, 2 Sections.Stent placed 03/2020 Past Anesthesia/Blood Transfusion Reactions: No Reported Reaction Date of Last Stent Placement:: 04/06/2020 Past Psychological History: Anxiety, Depression Additional Psychological History / Comment(s): TAKES EFFEXOR FOR DEPRESSION STATED SHE FEELS MAINTAINED ON THAT MEDICATION.DENIES ANY THOUGHTS OF HARMING SELF. Pt lives with her significant other in [facility] and is independant. She is able to drive, but does not own a car. She arranges rides thru [place] or uses a cab. Smoking Status: Current every day smoker Past Alcohol Use History: None Reported Additional Past Alcohol Use History / Comment(s): STARTED SMOKING AT AGE 8, smoked one to one and half packs per day for 50 years. Stopped smoking 6 months ago. 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 Past Drug Use History: Marijuana Additional Drug Use History / Comment(s): USES MARIJUANA 1-2X monthly, last used 2 weeks ago. Hx of addiction to cocaine, has not used in 20 yrs. - Past Family History Sister(s) Family Medical History: Cancer, Sleep Apnea/CPAP/BIPAP Additional Family Medical History / Comment(s): Patient has one sister that from liver cancer, borderline DM, PAD, hep. c. Brother(s) Family Medical History: Cancer, Coronary Artery Disease (CAD), Deep Vein Thrombosis (DVT), Hyperlipidemia Additional Family Medical History / Comment(s): Patient has 1 brother with past ETOH, past drug abuse, DVT's. She has a second brother that has from throat cancer. Daughter(s) Family Medical History: Diabetes Mellitus, Myocardial Infarction ([place]) Additional Family Medical History / Comment(s): Daughter at 23 yrs old from massive [place]. Father Family Medical History: Myocardial Infarction ([place]) Additional Family Medical History / Comment(s): from mi at age 44 Mother Family Medical History: Cancer Additional Family Medical History / Comment(s): maeve breasts removed d/t cancer, hysterectomy d/t cancer. Mother from metastatic breast cancer. Medications and Allergies Home Medications Medication Instructions Recorded Confirmed Type Venlafaxine HCl [Venlafaxine HCl 225 mg PO DAILY 10/21/16 02/27/21 History ER] Loratadine [Claritin] 10 mg PO HS 03/29/19 02/27/21 History Aspirin 81 mg PO DAILY 12/23/19 02/27/21 History Atorvastatin [Lipitor] 80 mg PO HS 12/23/19 02/27/21 History Pioglitazone [Actos] 15 mg PO DAILY 12/23/19 02/27/21 History Pantoprazole Sodium [Protonix] 40 mg PO DAILY 04/06/20 02/27/21 History Clopidogrel [Plavix] 75 mg PO DAILY #30 tab 04/07/20 02/27/21 Rx Cariprazine HCl [Vraylar] 1.5 mg PO DAILY 05/13/20 02/27/21 History Insulin Aspart (For Pump) [NovoLOG 0.01 unit SQ-PUMP CONTINUOUS 10/08/20 02/27/21 History (For Pump)] Ondansetron Odt [Zofran ODT] 4 mg PO Q8H PRN 10/08/20 02/27/21 History Amitriptyline HCl [Elavil] 25 mg PO HS 10/27/20 02/27/21 History Butalb/APAP/Caff 50-325-40Mg 1 tab PO DAILY PRN 10/27/20 02/27/21 History [Fioricet 50-325-40] Isosorbide Dinitrate [Isordil] 10 mg PO BID 10/31/20 02/27/21 History Ascorbic Acid [Vitamin C] 500 mg PO DAILY 01/16/21 02/27/21 History Cholecalciferol (Vitamin D3) 125 mcg PO DAILY 01/16/21 02/27/21 History [Vitamin D3 (125 MCG = 5,000 IU)] Ezetimibe [Zetia] 10 mg PO DAILY 01/16/21 02/27/21 History Levothyroxine Sodium [Synthroid] 150 mcg PO DAILY 01/16/21 02/27/21 History Lisinopril [Zestril] 10 mg PO DAILY 01/16/21 02/27/21 History Meclizine [Antivert] 25 mg PO HS 01/16/21 02/27/21 History Multivitamins, Thera [Multivitamin 1 tab PO DAILY 01/16/21 02/27/21 History (formulary)] diphenhydrAMINE HCL [Benadryl] 25 mg PO DAILY 01/16/21 02/27/21 History Diclofenac Sodium Gel [Voltaren 2 gm TOPICAL QID PRN 02/27/21 02/27/21 History Gel] Gabapentin [Neurontin] 300 mg PO TID PRN 02/27/21 02/27/21 History Nitroglycerin Sl Tabs [Nitrostat] 0.4 mg SUBLINGUAL Q5M PRN 02/27/21 02/27/21 History Sucralfate [Carafate] 1 gm PO HS 02/27/21 02/27/21 History Allergies Allergy/AdvReac Type Severity Reaction Status Date / Time grass pollen Allergy Unknown Verified 02/27/21 20:55 latex Allergy Rash/Hives Verified 02/27/21 20:55 Sulfa (Sulfonamide Allergy Rash/Hives/ Verified 02/27/21 20:55 Antibiotics) Swelling venom-honey bee Allergy Anaphylaxis Verified 02/27/21 20:55 morphine AdvReac Decreased Verified 02/27/21 20:55 Blood Pressure prochlorperazine edisylate AdvReac Vomiting Verified 02/27/21 20:55 [From Compazine] Physical Examination - Vital Signs Vital Signs: Vital Signs Temp Pulse Pulse Resp BP BP Pulse Ox 02/28/21 07:00 98 F 92 18 133/74 98 02/28/21 02:00 91 16 02/28/21 01:14 98.2 F 87 16 103/66 99 02/27/21 22:36 98.1 F 91 16 102/66 99 02/27/21 21:58 98.3 F 98 18 104/61 97 02/27/21 20:00 101 H 18 106/59 100 02/27/21 18:42 98.7 F 111 H 18 134/119 99 Intake and Output 02/27/21 02/28/21 02/28/21 22:59 06:59 14:59 Intake Total 120 Balance 120 Intake: Oral 120 Other: Voiding Method Toilet # Voids 1 1 # Bowel Movements 0 Weight 61.235 kg GENERAL: The patient is lying in bed and is not in acute distress. CHEST: The heart rate is regular rate rhythm. No murmurs to auscultation. No carotid bruit bilaterally. LUNG: Clear to auscultation bilaterally no wheezing noted throughout. Not labored breathing. ABDOMEN/GI: Bowel sounds present in all 4 quadrants. No tenderness to palpation throughout. NEUROLOGICAL: Higher mental function: The patient is awake, alert, oriented to self, place and time. Patient is following commands. No aphasia and no neglect. Cranial nerves: The pupils are round, equal and reactive to light and accommodation. Visual robertson are full to confrontation throughout. Extraocular movement is intact no nystagmus is noted. Facial sensation is normal to touch throughout. The facial strength is normal throughout. Hearing is normal bilaterally to hand rub. Tongue is midline and moved [id number] without any difficulty. No dysarthria is noted. Shoulder shrug is normal bilaterally. Motor: The strength is 5 over 5 throughout. Normal tone and bulk. Cerebellum: Normal finger to nose heel to saez bilaterally. Sensation: Sensation is normal to touch throughout. Reflexes (right/left): 2+ throughout except ankles are 1+ bilaterally. Plantars are downgoing bilaterally. Results - Laboratory Findings CBC and BMP: 02/27/21 19:02/27/21 19:01 Abnormal Lab Findings: Abnormal Labs 02/27/21 02/27/21 02/27/21 19:01 19:01 21:58 APTT 21.3 L Creatinine 1.19 H Glucose 68 L POC Glucose (mg/dL) 142 H 02/27/21 02/28/21 02/28/21 23:06 00:11 01:14 APTT Creatinine Glucose POC Glucose (mg/dL) 115 H 138 H 200 H 02/28/21 02/28/21 02/28/21 02:09 03:05 07:05 APTT Creatinine Glucose POC Glucose (mg/dL) 259 H 269 H 287 H Assessment and Plan Assessment: Acute Vertigo for past 2 weeks: Seems peripheral. History of old right parietal stroke History of syncope (EEG in our facility in 2016 was reported as normal) Diabetes mellitus and presented with slight low sugar and the high 60s. History of coronary artery disease status post stent Hypertension Hyperlipidemia History of myocardial infarction Plan: MRI the brain with and without is ordered and is pending. Patient is on the right regimen for strokes and she is on dual antiplatelets and she stated that she is using for her heart but that's also sufficient for stroke prophylaxis. He is currently on Lipitor 80 mg daily at bedtime (from neurological stand point can be on lipitor 40mg qhs). She is on meclizine one tell a by mouth daily at bedtime Consulted PT and OT I ordered 2 1/2 hour ambulatory EEG and if patient has any seizure or epileptiform activity then recommend placing on antiepileptic drugs (EEG to be coordinated by interventional radiology tech). Will defer the rest of the medical management to the primary team. Upon discharge the patient needs to follow-up with a neurologist within 1-2 weeks as an outpatient. Thank you for the consultation. Valdez Valenzuela M.D. Neuro-hospitalist Time with Patient: Greater than 30
--- NOTE | 2021-02-28 13:05 | P.HPIM ---
History of Present Illness H&P Date: 02/28/21 HISTORY AND PHYSICAL AND DISCHARGE SUMMARY: HISTORY OF PRESENT ILLNESS: [id number] mildly overweight female one of Dr. Elder's patient with past medical history of CAD post CABG, history of COPD, history of type 2 diabetes on insulin pump, history of DVT venous thrombosis, stroke and TIA, and previous history of rheumatoid arthritis along with chronic kidney disease and obstructive sleep apnea. She was seen by Dr. Wahl and was started on Valtrex for suspected atypical shingles and patient has not taken 5 days of treatment. Patient states that she was [place] became dizzy but she has been feeling this way for the past 2 weeks as if the room is spinning. Patient presented to [facility] emergency center for evaluation. She was afebrile, heart rate 111, blood pressure 134/119 and repeat 106/59. Pulse ox 99% on room air. Her blood sugar was 68 and patient was taken off insulin pump and placed on Levemir 10 units at bedtime and NovoLog scale. Electrolytes were normal. Creatinine 1.19. Magnesium 1.8, liver function tests normal. Serum alcohol level was less than 10. Ugalde virus PCR not detected. Subsequently patient's blood sugars have risen up to the 500s. Additional insulin has been ordered and patient to resume insulin pump. CT of the head is reported as old right parietal infarct. No acute intracranial abnormality. CT angiography of the head and neck was reported as negative. Patient has been placed on the observation unit, consult with neurology and MRI of the brain ordered. Patient has been seen by neurology with recommendations for MRI of the brain with and without contrast, continue dual antiplatelet, Lipitor 80 mg at bedtime or 40 mg is sufficient. 2 half hour ambulatory EEG ordered, follow-up with neurology in 1-2 weeks as an outpatient. REVIEW OF SYSTEMS: Constitutional: No fever, no chills, no night sweats. No weight change. No weakness, fatigue or lethargy. No daytime sleepiness. EENT: No headache. No blurred vision or double vision, no loss of vision. No loss of Hearing, no ringing in the ears, reports dizziness. No nasal drainage or congestion. No epistaxis. No sore throat. Lungs: Denies chest pain no shortness of breath no cough or wheezes. Cardiovascular: No chest pain no angina, no lower extremity edema. No palpitations. No paroxysmal nocturnal dyspnea. No orthopnea. Reports lightheadedness or dizziness. No syncopal episodes. Abdominal: No abdominal pain. No nausea, vomiting. No diarrhea. No constipation. No bloody or tarry stools.. No loss of appetite. Genitourinary: No dysuria, increased frequency, urgency. No urinary retention. Musculoskeletal: Positive myalgia and muscle pain No muscle weakness, no gait dysfunction, no frequent falls. No back pain. No neck pain. Integumentary: No wounds, no lesions. No rash or pruritus. No unusual bruising. No change in hair or nails. Neurologic: No aphasia. No facial droop. No change in mentation. No head injury. No headache. No paralysis. No paresthesia. Psychiatric: No depression. No anxiety. No mood swings. Endocrine: Significant hyperglycemia with mild weight change. SOCIAL HISTORY: Start smoking at age 8 smoked one to one and half pack a day for 50 years she start Chantix back in 2018 and cut down smoking patient has giving up alcohol for the last 35 years she is marijuana 1-2 times a month history of cocaine in the past has not used for the last 20 years. FAMILY HISTORY: Her father from [place] at age 44, mother from breast cancer, patient had one sister with history of sleep apnea from metastasis take cancer to the liver had history of hepatitis C most likely had hepatocellular cancer, patient's brother from coronary disease and DVT and second brother from throat cancer. She has a daughter who at age 44 from massive [place] and has another one who has diabetes. PHYSICAL EXAMINATION: Gen: This is 61-year-old mildly overweight female patient, resting in bed and appears to be comfortable and in no acute distress. HEENT: Head is atraumatic, normocephalic. Pupils equal, round. Sclerae is anicteric. NECK: Supple. No JVD. No lymphadenopathy. No thyromegaly. LUNGS: Clear to auscultation. No wheezes or rhonchi. No intercostal retractions. No chest wall tenderness or soreness HEART: Regular rate and rhythm. S1, S2, no murmur. ABDOMEN: Soft. Bowel sounds are present. No masses. No tenderness. EXTREMITIES: Positive edema with significant arthritis both side. NEUROLOGICAL: Patient is awake, alert and oriented x3. Cranial nerves 2 through 12 are grossly intact. ASSESSMENT AND PLAN: 1. Acute vertigo 2 weeks of unclear etiology. MRI of the brain, 2-1/2 hour ambulatory EEG, follow-up with neurologist. 2. Hypoglycemia with subsequent hyperglycemia. Patient to resume insulin pump, additional insulin has been ordered. 3. Recent diagnosis of shingles. Valtrex discontinued. 4. Coronary artery disease post PCI and stent placement still seeing cardiology regular basis. Continue aspirin 81 mg daily, Lipitor 80 mg daily, Plavix 75 mg daily, Imdur 10 mg twice daily 5. Hypertension. Continue lisinopril 10 mg a day. 6. Hyperlipidemia. Continue atorvastatin at 80 mg daily. 7. Type 2 diabetes on insulin pump, uncontrolled with hyper and hypoglycemia. Continue Actos 15 mg daily and resume insulin pump. 8. History of COPD: Continue Ventolin along with the Qvar and on demand DuoNeb. 9. Hypothyroidism: Continue levothyroxine at 150 g daily. 10. Chronic kidney disease stage II, stable 11. Chronic depression: Continue patient Vrylar, along with Topamax and Effexor . 12. Diabetic neuropathy: Has been on gabapentin 300 mg twice a day, amitriptyline 25 mg at bedtime. 13. GERD/GI prophylaxis: Continue patient on pantoprazole 40 mg daily. 14. DVT prophylaxis: Patient will have early mobilization along with knee-high ALEXANDRE hose still on aspirin and Plavix currently. CODE STATUS: Full code Patient placed on the observation unit. DISCHARGE PLAN: Home DISCHARGE MEDICATIONS Venlafaxine HCl [Venlafaxine HCl ER] 225 mg PO DAILY 10/21/16 [History] Loratadine [Claritin] 10 mg PO HS 03/29/19 [History] Aspirin 81 mg PO DAILY 12/23/19 [History] Atorvastatin [Lipitor] 80 mg PO HS 12/23/19 [History] Pioglitazone [Actos] 15 mg PO DAILY 12/23/19 [History] Pantoprazole Sodium [Protonix] 40 mg PO DAILY 04/06/20 [History] Clopidogrel [Plavix] 75 mg PO DAILY #30 tab 04/07/20 [Rx] Cariprazine HCl [Vraylar] 1.5 mg PO DAILY 05/13/20 [History] Insulin Aspart (For Pump) [NovoLOG (For Pump)] 0.01 unit SQ-PUMP CONTINUOUS 10/08/20 [History] Ondansetron Odt [Zofran ODT] 4 mg PO Q8H PRN 10/08/20 [History] Amitriptyline HCl [Elavil] 25 mg PO HS 10/27/20 [History] Butalb/APAP/Caff 50-325-40Mg [Fioricet 50-325-40] 1 tab PO DAILY PRN 10/27/20 [History] Isosorbide Dinitrate [Isordil] 10 mg PO BID 10/31/20 [History] Ascorbic Acid [Vitamin C] 500 mg PO DAILY 01/16/21 [History] Cholecalciferol (Vitamin D3) [Vitamin D3 (125 MCG = 5,000 IU)] 125 mcg PO DAILY 01/16/21 [History] Ezetimibe [Zetia] 10 mg PO DAILY 01/16/21 [History] Levothyroxine Sodium [Synthroid] 150 mcg PO DAILY 01/16/21 [History] Lisinopril [Zestril] 10 mg PO DAILY 01/16/21 [History] Meclizine [Antivert] 25 mg PO HS 01/16/21 [History] Multivitamins, Thera [Multivitamin (formulary)] 1 tab PO DAILY 01/16/21 [History] diphenhydrAMINE HCL [Benadryl] 25 mg PO DAILY 01/16/21 [History] Diclofenac Sodium Gel [Voltaren Gel] 2 gm TOPICAL QID PRN 02/27/21 [History] Gabapentin [Neurontin] 300 mg PO TID PRN 02/27/21 [History] Nitroglycerin Sl Tabs [Nitrostat] 0.4 mg SUBLINGUAL Q5M PRN 02/27/21 [History] Sucralfate [Carafate] 1 gm PO HS 02/27/21 [History] Impression and plan of care have been directed as dictated by the signing physician. Hayley Ferrari nurse practitioner acting as scribe for signing physician. Past Medical History Past Medical History: Coronary Artery Disease (CAD), Cancer, COPD, CVA/TIA, Diabetes Mellitus, Deep Vein Thrombosis (DVT), Eye Disorder, GERD/Reflux, Hearing Disorder / Deafness, Hyperlipidemia, Hypertension, Myocardial Infarction ([place]), Renal Disease, Rheumatoid Arthritis (RA), Sleep Apnea/CPAP/BIPAP, Syncope, Thyroid Disorder Additional Past Medical History / Comment(s): 09/16/16 with SBO with surgery/possible septic emboli with cavitary lesions bilateral lungs. 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 coli Nov2015 requiring PICC line insertion for IV antibiotics, restless leg syndrome, peripheral neropathy. Hx bilateral glaucoma, hx syncope r/t low blood sugars. No CPAP use. - December 2019 Last Myocardial Infarction Date:: 2019 History of Any Multi-Drug Resistant Organisms: ESBL, MRSA, VRE Date of last positivie culture/infection: 05/07/16 ESBL, 05/15/16 VRE, MRSA 09/2017 - upper lip MDRO Source:: URINE E.COLI, EC GALLINARUM Past Surgical History: Appendectomy, Bowel Resection, Section, Heart Catheterization With Stent, Hernia Repair Additional Past Surgical History / Comment(s): 09/30 exploratory laparotomy, lysis of adhesions bowel resection d/t obstruction. Hx: repair incarcerated in cisional hernia with abdominal washout, thyroidectomy(non functioning), heart cath 06/28 - 100% occluded, unable to stent, partial nephrectomy for left kidney renal cell carcinoma, PICC line insertion (since removed), colonoscopy, bilateral cataract removal with lens implants, 2 Sections.Stent placed 03/2020 Past Anesthesia/Blood Transfusion Reactions: No Reported Reaction Date of Last Stent Placement:: 04/06/2020 Past Psychological History: Anxiety, Depression Additional Psychological History / Comment(s): TAKES EFFEXOR FOR DEPRESSION STATED SHE FEELS MAINTAINED ON THAT MEDICATION.DENIES ANY THOUGHTS OF HARMING SELF. Pt lives with her significant other in [facility] and is independant. She is able to drive, but does not own a car. She arranges rides thru [place] or uses a cab. Smoking Status: Current every day smoker Past Alcohol Use History: None Reported Additional Past Alcohol Use History / Comment(s): STARTED SMOKING AT AGE 8, smoked one to one and half packs per day for 50 years. Stopped smoking 6 months ago. 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 Past Drug Use History: Marijuana Additional Drug Use History / Comment(s): USES MARIJUANA 1-2X monthly, last used 2 weeks ago. Hx of addiction to cocaine, has not used in 20 yrs. - Past Family History Sister(s) Family Medical History: Cancer, Sleep Apnea/CPAP/BIPAP Additional Family Medical History / Comment(s): Patient has one sister that from liver cancer, borderline DM, PAD, hep. c. Brother(s) Family Medical History: Cancer, Coronary Artery Disease (CAD), Deep Vein Thrombosis (DVT), Hyperlipidemia Additional Family Medical History / Comment(s): Patient has 1 brother with past ETOH, past drug abuse, DVT's. She has a second brother that has from throat cancer. Daughter(s) Family Medical History: Diabetes Mellitus, Myocardial Infarction ([place]) Additional Family Medical History / Comment(s): Daughter at 23 yrs old from massive [place]. Father Family Medical History: Myocardial Infarction ([place]) Additional Family Medical History / Comment(s): from [place] at age 44 Mother Family Medical History: Cancer Additional Family Medical History / Comment(s): maeve breasts removed d/t cancer, hysterectomy d/t cancer. Mother from metastatic breast cancer. Medications and Allergies Home Medications Medication Instructions Recorded Confirmed Type Venlafaxine HCl [Venlafaxine HCl 225 mg PO DAILY 10/21/16 02/27/21 History ER] Loratadine [Claritin] 10 mg PO HS 03/29/19 02/27/21 History Aspirin 81 mg PO DAILY 12/23/19 02/27/21 History Atorvastatin [Lipitor] 80 mg PO HS 12/23/19 02/27/21 History Pioglitazone [Actos] 15 mg PO DAILY 12/23/19 02/27/21 History Pantoprazole Sodium [Protonix] 40 mg PO DAILY 04/06/20 02/27/21 History Clopidogrel [Plavix] 75 mg PO DAILY #30 tab 04/07/20 02/27/21 Rx Cariprazine HCl [Vraylar] 1.5 mg PO DAILY 05/13/20 02/27/21 History Insulin Aspart (For Pump) [NovoLOG 0.01 unit SQ-PUMP CONTINUOUS 10/08/20 02/27/21 History (For Pump)] Ondansetron Odt [Zofran ODT] 4 mg PO Q8H PRN 10/08/20 02/27/21 History Amitriptyline HCl [Elavil] 25 mg PO HS 10/27/20 02/27/21 History Butalb/APAP/Caff 50-325-40Mg 1 tab PO DAILY PRN 10/27/20 02/27/21 History [Fioricet 50-325-40] Isosorbide Dinitrate [Isordil] 10 mg PO BID 10/31/20 02/27/21 History Ascorbic Acid [Vitamin C] 500 mg PO DAILY 01/16/21 02/27/21 History Cholecalciferol (Vitamin D3) 125 mcg PO DAILY 01/16/21 02/27/21 History [Vitamin D3 (125 MCG = 5,000 IU)] Ezetimibe [Zetia] 10 mg PO DAILY 01/16/21 02/27/21 History Levothyroxine Sodium [Synthroid] 150 mcg PO DAILY 01/16/21 02/27/21 History Lisinopril [Zestril] 10 mg PO DAILY 01/16/21 02/27/21 History Meclizine [Antivert] 25 mg PO HS 01/16/21 02/27/21 History Multivitamins, Thera [Multivitamin 1 tab PO DAILY 01/16/21 02/27/21 History (formulary)] diphenhydrAMINE HCL [Benadryl] 25 mg PO DAILY 01/16/21 02/27/21 History Diclofenac Sodium Gel [Voltaren 2 gm TOPICAL QID PRN 02/27/21 02/27/21 History Gel] Gabapentin [Neurontin] 300 mg PO TID PRN 02/27/21 02/27/21 History Nitroglycerin Sl Tabs [Nitrostat] 0.4 mg SUBLINGUAL Q5M PRN 02/27/21 02/27/21 History Sucralfate [Carafate] 1 gm PO HS 02/27/21 02/27/21 History Allergies Allergy/AdvReac Type Severity Reaction Status Date / Time grass pollen Allergy Unknown Verified 02/27/21 20:55 latex Allergy Rash/Hives Verified 02/27/21 20:55 Sulfa (Sulfonamide Allergy Rash/Hives/ Verified 02/27/21 20:55 Antibiotics) Swelling venom-honey bee Allergy Anaphylaxis Verified 02/27/21 20:55 morphine AdvReac Decreased Verified 02/27/21 20:55 Blood Pressure prochlorperazine edisylate AdvReac Vomiting Verified 02/27/21 20:55 [From Compazine] Physical Exam Vitals: Vital Signs Temp Pulse Pulse Resp BP BP Pulse Ox 02/28/21 07:00 98 F 92 18 133/74 98 02/28/21 02:00 91 16 02/28/21 01:14 98.2 F 87 16 103/66 99 02/27/21 22:36 98.1 F 91 16 102/66 99 02/27/21 21:58 98.3 F 98 18 104/61 97 02/27/21 20:00 101 H 18 106/59 100 02/27/21 18:42 98.7 F 111 H 18 134/119 99 Intake and Output 02/27/21 02/28/21 02/28/21 22:59 06:59 14:59 Intake Total 120 Balance 120 Intake: Oral 120 Other: Voiding Method Toilet # Voids 1 1 # Bowel Movements 0 Weight 61.235 kg Results CBC & Chem 7: 02/27/21 19:01 02/27/21 19:01 Labs: Abnormal Lab Results - Last 24 Hours (Table) 02/27/21 02/27/21 02/27/21 Range/Units 19:01 19:01 21:58 APTT 21.3 L (22.0-30.0) sec Creatinine 1.19 H (0.52-1.04) mg/dL Glucose 68 L (74-99) mg/dL POC Glucose (mg/dL) 142 H (75-99) mg/dL 02/27/21 02/28/21 02/28/21 Range/Units 23:06 00:11 01:14 APTT (22.0-30.0) sec Creatinine (0.52-1.04) mg/dL Glucose (74-99) mg/dL POC Glucose (mg/dL) 115 H 138 H 200 H (75-99) mg/dL 02/28/21 02/28/21 02/28/21 Range/Units 02:09 03:05 07:05 APTT (22.0-30.0) sec Creatinine (0.52-1.04) mg/dL Glucose (74-99) mg/dL POC Glucose (mg/dL) 259 H 269 H 287 H (75-99) mg/dL Thrombosis Risk Factor Assmnt - Choose All That Apply Each Factor Represents 1 point: Abnormal pulmonary function (COPD), Acute [place] Each Risk Factor Represents 2 Points: Age 61-74 years Each Risk Factor Represents 3 Points: History of DVT/PE Other congenital or acquired thrombophilia - If yes, enter type in comment: No Thrombosis Risk Factor Assessment Total Risk Factor Score: 7 Thrombosis Risk Factor Assessment Level: High Risk
--- NOTE | 2021-02-28 14:00 | MR ---
EXAMINATION TYPE: MR brain wo/w con DATE OF EXAM: 02/28/2021 COMPARISON: CT brain from yesterday and older CT studies. HISTORY: Vertigo TECHNIQUE: Multiplanar, multisequence images of the brain and brainstem is performed without and with IV contras t, utilizing 6 mL intravenous Gadavist . FINDINGS: Diffusion weighted images demonstrate no evidence of a recent infarct or other diffusion ab normality. There is mild ventricular and sulcal prominence are demonstrated. Mild scattered areas of T2 hyperintensity are noted. There is focal area of encephalomalacia right parietal lobe near axial image 19 redemonstrated. Midline structures demonstrate normal morphology. The craniocervical junction appears within normal limits. Post contrast images demonstrate no abnormal enhancement. The dural venous sinuses appear pa tent. The visualized sinuses are clear and the globes are intact. No suspicious opacification of mast oid air cells. IMPRESSION: Mild diffuse age-related cerebral and chronic small vessel ischemic change with old right parietal infarct. No significant change from most recent CT brain studies.
[2021-02-28 14:39] LABS: Glucose,Whole Blood 239 mg/dL (75-99)
[2021-02-28] MEDS ORDERED: MECLIZINE 25 MG TAB PO SCH (21:00)
[2021-02-28] MEDS ORDERED: SUCRALFATE 1 GM TAB PO SCH (21:00)
[2021-02-28] MEDS ORDERED: INSULIN DETEMIR (LEVEMIR) 100 UNIT/ML SYR SQ SCH (21:00)
[2021-02-28] MEDS ORDERED: AMITRIPTYLINE HCL 25 MG TAB PO SCH (21:00)
[2021-02-28] MEDS ORDERED: ATORVASTATIN 80 MG TAB PO SCH (21:00)
[2021-02-28] MEDS ORDERED: LORATADINE 10 MG TAB PO SCH (21:00)
== END 2021-02-28 16:40 | disposition home or self-care (01) ==
LOC: EC 18:42 → 6NMEDSUR 21:35
PROVIDERS: ADMIT Internal Medicine; ATTEND Internal Medicine
DX: R42 Dizziness and giddiness (principal); Z20.822 Contact with and (suspected) exposure to COVID-19; E11.22 Type 2 diabetes mellitus with diabetic chronic kidney disease; E11.40 Type 2 diabetes mellitus with diabetic neuropathy, unspecified; E11.649 Type 2 diabetes mellitus with hypoglycemia without coma; E11.65 Type 2 diabetes mellitus with hyperglycemia; E66.3 Overweight; E78.5 Hyperlipidemia, unspecified; E89.0 Postprocedural hypothyroidism; F17.200 Nicotine dependence, unspecified, uncomplicated; F32.9 Major depressive disorder, single episode, unspecified; F41.9 Anxiety disorder, unspecified; G25.81 Restless legs syndrome; H55.09 Other forms of nystagmus; H91.90 Unspecified hearing loss, unspecified ear; I12.9 Hypertensive chronic kidney disease with stage 1 through stage 4 chronic kidney disease, or unspecified chronic kidney disease; I25.10 Atherosclerotic heart disease of native coronary artery without angina pectoris; I25.2 Old myocardial infarction; J44.9 Chronic obstructive pulmonary disease, unspecified; M06.9 Rheumatoid arthritis, unspecified; N18.2 Chronic kidney disease, stage 2 (mild); Z79.02 Long term (current) use of antithrombotics/antiplatelets; Z79.4 Long term (current) use of insulin; Z79.82 Long term (current) use of aspirin; Z79.890 Hormone replacement therapy; Z79.899 Other long term (current) drug therapy; Z80.0 Family history of malignant neoplasm of digestive organs; Z80.3 Family history of malignant neoplasm of breast; Z80.8 Family history of malignant neoplasm of other organs or systems; Z85.528 Personal history of other malignant neoplasm of kidney; Z86.14 Personal history of Methicillin resistant Staphylococcus aureus infection; Z86.718 Personal history of other venous thrombosis and embolism; Z86.73 Personal history of transient ischemic attack (TIA), and cerebral infarction without residual deficits; Z90.5 Acquired absence of kidney; Z95.1 Presence of aortocoronary bypass graft; Z95.5 Presence of coronary angioplasty implant and graft; Z96.41 Presence of insulin pump (external) (internal)
CPT/HCPCS: 96361 ×3; 96374; 99285; 36415; 93005; 80053; 83605; 83735; 85025; 85610; 85730; 87635; 70496; 70450; 70498; 70553; G0378 ×2; G0480; A9585; Q9967; 80320

== ENCOUNTER → 2021-03-08 | Outpatient (CLI) | payer OTHER | LOC: NEUROMAIN 07:50 | PROVIDERS: ATTEND Student in an Organized Health Care Education/Training Program | DX: R55 Syncope and collapse (principal); Z87.891 Personal history of nicotine dependence; Z91.040 Latex allergy status; Z88.2 Allergy status to sulfonamides; Z91.030 Bee allergy status; Z88.5 Allergy status to narcotic agent; Z91.09 Other allergy status, other than to drugs and biological substances; Z88.8 Allergy status to other drugs, medicaments and biological substances | CPT/HCPCS: 95713 ==

== ENCOUNTER 2021-09-13 16:03 | Emergency (ER) | payer OTHER ==
[2021-09-13 16:26] VITALS: RESP 16; TEMP 97.1
[2021-09-13] MEDS ORDERED: HYDROcodone/APAP 5-325MG 1 EACH TAB PO STA (17:45)
[2021-09-13] MEDS ORDERED: LIDOCAINE 5% PATCH TOPICAL STA (17:45)
--- NOTE | 2021-09-13 17:55 | ED ---
General Adult HPI - General Chief complaint: Back Pain/Injury Stated complaint: Back pain Time Seen by Provider: 09/13/21 17:01 Source: patient, RN notes reviewed, old records reviewed Mode of arrival: ambulatory Limitations: no limitations - History of Present Illness Initial comments: Patient's a 61-year-old female with an extensive past medical history including a recently diagnosed lumbar spine compression fracture who is in a back brace and is seeing a surgeon outpatient but is presenting seeking increased pain medications. She was only given Flexeril for home. She is requesting something somewhat stronger. She denies any saddle anesthesia, lower extremity weakness, urinary or bowel incontinence or retention. She is no other acute complaints at this time. She is pain over her lower lumbar spine in the midline. No radiation the pain. No other acute complaint at this time. States she cannot take NSAIDs due to her cardiac history. Has been attempting pain management with Flexeril and Tylenol at home. - Related Data Home Medications Medication Instructions Recorded Confirmed Venlafaxine HCl [Venlafaxine HCl 225 mg PO DAILY 10/21/16 08/10/21 ER] Loratadine [Claritin] 10 mg PO DAILY 03/29/19 08/10/21 Aspirin 81 mg PO DAILY 12/23/19 08/10/21 Atorvastatin [Lipitor] 80 mg PO HS 12/23/19 08/10/21 Pioglitazone [Actos] 15 mg PO DAILY 12/23/19 08/10/21 Pantoprazole Sodium [Protonix] 40 mg PO BID 04/06/20 08/10/21 Cariprazine HCl [Vraylar] 1.5 mg PO DAILY 05/13/20 08/10/21 Insulin Aspart (For Pump) [NovoLOG 0.01 unit SQ-PUMP CONTINUOUS 10/08/20 08/10/21 (For Pump)] Isosorbide Dinitrate [Isordil] 10 mg PO BID 10/31/20 08/10/21 Ezetimibe [Zetia] 10 mg PO DAILY 01/16/21 08/10/21 Levothyroxine Sodium [Synthroid] 150 mcg PO DAILY 01/16/21 08/10/21 Meclizine [Antivert] 25 mg PO Q8H PRN 01/16/21 08/10/21 Gabapentin [Neurontin] 300 mg PO TID PRN 02/27/21 08/10/21 Nitroglycerin Sl Tabs [Nitrostat] 0.4 mg SUBLINGUAL Q5M PRN 02/27/21 08/10/21 Sucralfate [Carafate] 1 gm PO HS 02/27/21 08/10/21 Previous Rx's Medication Instructions Recorded Clopidogrel [Plavix] 75 mg PO DAILY #90 tab 08/13/21 Metoprolol Tartrate [Lopressor] 12.5 mg PO BID #180 tab 08/13/21 lisinopriL [Zestril] 10 mg PO BID #180 tab 08/14/21 HYDROcodone/APAP 5-325MG [[place] 5] 1 each PO Q6HR PRN 3 Days #12 tab 09/13/21 Lidocaine 5% Patch [Lidoderm 5% 1 patch TOPICAL DAILY PRN 7 Days 09/13/21 Patch] #7 patch Allergies Allergy/AdvReac Type Severity Reaction Status Date / Time grass pollen Allergy Unknown Verified 09/13/21 16:25 latex Allergy Rash/Hives Verified 09/13/21 16:25 Sulfa (Sulfonamide Allergy Rash/Hives/ Verified 09/13/21 16:25 Antibiotics) Swelling venom-honey bee Allergy Anaphylaxis Verified 09/13/21 16:25 morphine AdvReac Decreased Verified 09/13/21 16:25 Blood Pressure prochlorperazine edisylate AdvReac Vomiting Verified 09/13/21 16:25 [From Compazine] Review of Systems ROS Statement: Those systems with pertinent positive or pertinent negative responses have been documented in the HPI. Review of Systems: CONST: Denies fever EYES: Denies blurry vision ENT: Denies nasal congestion C/V: Denies Chest pain RESP: Denies shortness of breath GI: Denies abdominal pain : Denies dysuria SKIN: Denies rash. MSK: Endorses back pain NEURO: Denies headache ROS Other: All systems not noted in ROS Statement are negative. Past Medical History Past Medical History: Coronary Artery Disease (CAD), Cancer, COPD, CVA/TIA, Diabetes Mellitus, Deep Vein Thrombosis (DVT), Eye Disorder, GERD/Reflux, Hearing Disorder / Deafness, Hyperlipidemia, Hypertension, Myocardial Infarction (AL), Renal Disease, Rheumatoid Arthritis (RA), Sleep Apnea/CPAP/BIPAP, Syncope, Thyroid Disorder Additional Past Medical History / Comment(s): 09/16/16 with SBO with surgery/possible septic emboli with cavitary lesions bilateral lungs. 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 coli Nov. 2015 requiring PICC line insertion for IV antibiotics, restless leg syndrome, peripheral neropathy. Hx bilateral glaucoma, hx syncope r/t low blood sugars. No CPAP use. AL- December 2019 Last Myocardial Infarction Date:: 2019 History of Any Multi-Drug Resistant Organisms: ESBL, MRSA, VRE Date of last positivie culture/infection: 05/07/16 ESBL, 05/15/16 VRE, MRSA 09/2017 - upper lip MDRO Source:: URINE E.COLI, EC GALLINARUM Past Surgical History: Appendectomy, Bowel Resection, Section, Heart Catheterization, Heart Catheterization With Stent, Hernia Repair Additional Past Surgical History / Comment(s): 09/30 exploratory laparotomy, lysis of adhesions bowel resection d/t obstruction. Hx: repair incarcerated incisional hernia with abdominal washout, thyroidectomy(non functioning), heart cath 06/28 - 100% occluded, unable to stent, partial nephrectomy for left kidney renal cell carcinoma, PICC line insertion (since removed), colonoscopy, bilateral cataract removal with lens implants, 2 Sections.Stent placed 03/2020 Past Anesthesia/Blood Transfusion Reactions: No Reported Reaction Date of Last Stent Placement:: 04/06/2020 Past Psychological History: Anxiety, Depression Smoking Status: Current every day smoker Past Alcohol Use History: None Reported Past Drug Use History: Marijuana - Past Family History Sister(s) Family Medical History: Cancer, Sleep Apnea/CPAP/BIPAP Additional Family Medical History / Comment(s): Patient has one sister that from liver cancer, borderline DM, PAD, hep. c. Brother(s) Family Medical History: Cancer, Coronary Artery Disease (CAD), Deep Vein Thrombosis (DVT), Hyperlipidemia Additional Family Medical History / Comment(s): Patient has 1 brother with past ETOH, past drug abuse, DVT's. She has a second brother that has from throat cancer. Daughter(s) Family Medical History: Diabetes Mellitus, Myocardial Infarction (AL) Additional Family Medical History / Comment(s): Daughter at 23 yrs old from massive AL. Father Family Medical History: Myocardial Infarction (AL) Additional Family Medical History / Comment(s): from mi at age 44 Mother Family Medical History: Cancer Additional Family Medical History / Comment(s): maeve breasts removed d/t cancer, hysterectomy d/t cancer. Mother from metastatic breast cancer. General Exam - General Exam Comments Initial Comments: General: Appears in mild distress secondary to back pain. Is wearing a back brace. HEAD: Normal with no signs of head trauma. EYES: PERRLA, EOMI, conjunctiva normal, no discharge. Pupils 3 mm and equal bilaterally. ENT: Hearing grossly intact, normal oropharynx. RESPIRATORY: Clear breath sounds bilaterally. No wheezes, rales, or rhonchi. C/V: Regular rate and rhythm. S1 and S2 auscultated, no edema, peripheral pulses 2+ and intact throughout ABD: Abd is soft, nontender, nondistended EXT: Normal range of motion, no obvious deformity. Patient does have lower lumbar spine tenderness to palpation in the midline. Does not radiate. SKIN: No rashes or lesions observed on exposed skin. NEURO: Alert and oriented 4. No focal sensory strength deficits. Limitations: no limitations Course Vital Signs 09/13/21 09/13/21 16:25 18:38 Temperature 97.1 F L Pulse Rate 111 H 98 Respiratory 16 16 Rate Blood Pressure 108/71 112/71 O2 Sat by Pulse 98 98 Oximetry Medical Decision Making - Medical Decision Making Based on patient's presentation and physical exam, does appear she is having isolated lumbar spine back pain. This is known, with her recently diagnosed compression fracture of her lumbar spine she has no acute symptoms otherwise. Has only been taking Flexeril and Tylenol at home for pain control. Is seeking more pain relief. I did offer the patient lidocaine patches was [place] here in the department. She accepted. She also be given a prescription for home. She was in agreement this plan. I do not believe that further laboratory studies or imaging are required at this time. She has no red flag symptoms or signs of cauda equina syndrome. I advised that she follow-up with her premade appointment with a surgeon in a few weeks. I will provide the patient with a prescription for [place] 5, lidocaine patch. I instructed the patient to follow up with their PCP in the next 3 days. I explained that the patient should return to the emergency department if they experience any worsening symptoms. Strict return precautions were discussed with the patient. The patient expressed understanding of these instructions. I answered all questions that the patient had. The patient was discharged home in good condition with their prescriptions and follow up information. Disposition Clinical Impression: Lumbar spine pain, Compression fracture Disposition: HOME SELF-CARE Condition: Good Instructions (If sedation given, give patient instructions): Acute Low Back Pain (ED) Prescriptions: Lidocaine 5% Patch [Lidoderm 5% Patch] 1 patch TOPICAL DAILY PRN 7 Days #7 patch PRN Reason: pain HYDROcodone/APAP 5-325MG [[place] 5] 1 each PO Q6HR PRN 3 Days #12 tab PRN Reason: Pain Is patient prescribed a controlled substance at d/c from ED?: Yes When asked, does pt state using other controlled substances?: No If prescribed controlled substance>3 days was MAPS reviewed?: Prescribed <3 Days If opioid is for acute pain is fill amount 7 days or less?: Yes If Rx opioid, was Start Talking consent form obtained?: Yes Referrals: Sahra Elder MD [Primary Care Provider] - 1-2 days
[2021-09-13 18:54] VITALS: BP 112/71; PULSE 98
== END 2021-09-13 18:38 | disposition home or self-care (01) ==
LOC: EC 16:03
DX: S32.010A Wedge compression fracture of first lumbar vertebra, initial encounter for closed fracture (principal); E11.9 Type 2 diabetes mellitus without complications; I25.10 Atherosclerotic heart disease of native coronary artery without angina pectoris; J44.9 Chronic obstructive pulmonary disease, unspecified; K21.9 Gastro-esophageal reflux disease without esophagitis; E78.5 Hyperlipidemia, unspecified; I10 Essential (primary) hypertension; I25.2 Old myocardial infarction; M06.9 Rheumatoid arthritis, unspecified; E07.9 Disorder of thyroid, unspecified; F41.9 Anxiety disorder, unspecified; F32.A Depression, unspecified; F17.200 Nicotine dependence, unspecified, uncomplicated; F12.90 Cannabis use, unspecified, uncomplicated; Z79.82 Long term (current) use of aspirin; Z79.4 Long term (current) use of insulin; Z79.02 Long term (current) use of antithrombotics/antiplatelets; Z91.040 Latex allergy status; Z82.2 Family history of deafness and hearing loss; Z88.5 Allergy status to narcotic agent; Z86.73 Personal history of transient ischemic attack (TIA), and cerebral infarction without residual deficits; Z86.718 Personal history of other venous thrombosis and embolism; Z87.440 Personal history of urinary (tract) infections; Z90.49 Acquired absence of other specified parts of digestive tract; X58.XXXA Exposure to other specified factors, initial encounter
CPT/HCPCS: 99283

== ENCOUNTER → 2021-09-26 | Outpatient (CLI) | payer OTHER ==
[2021-09-26 18:56] LABS: INR 0.94 (0.90-1.11); Prothrombin Time 10.4 sec (9.9-11.9)
[2021-09-26 19:07] LABS: Basophils # (A) 0.02 X 10*3/uL (0.00-0.10); Basophils % (A) 0.3 %; Eosinophils # (A) 0.14 X 10*3/uL (0.04-0.35); Eosinophils % (A) 2.3 %; HCT 38.7 % (37.2-46.3); HGB 12.3 g/dL (12.0-15.0); Immature Grans, Automated 0.2 %; Lymphocytes # (A) 1.85 X 10*3/uL (0.90-5.00); Lymphocytes % (A) 30.6 %; MCH 29.5 pg (27.0-32.0); MCHC 31.8 g/dL (32.0-37.0); MCV 92.8 fL (80.0-97.0); Mean Platelet Volume 11.1 fL (9.5-12.2); Monocytes # (A) 0.23 X 10*3/uL (0.20-1.00); Monocytes % (A) 3.8 %; NRBC Per 100 WBC 0 /100 WBCS (0.0-0.0); Neutrophils # (A) 3.79 X 10*3/uL (1.80-7.70); Neutrophils % (A) 62.8 %; Platelet Count 296 X 10*3/uL (140-440); RBC 4.17 X 10*6/uL (4.10-5.20); RDW 14.4 % (11.5-14.5); WBC 6.04 X 10*3/uL (4.50-10.00)
[2021-09-26 19:53] LABS: African American GFR (CKD) 43.1 (60.0-200.0); Anion Gap 19.5 mmol/L (10.00-18.00); BUN/Creat Ratio 23.4 Ratio (12.00-20.00); Blood Urea Nitrogen 35.1 mg/dL (9.0-27.0); Calcium 9.4 mg/dL (8.7-10.3); Carbon Dioxide 17.5 mmol/L (20.0-27.5); Non-African American GFR(CKD) 37.2 (60.0-200.0); Potassium 5.3 mmol/L (3.5-5.5)
== END | disposition home or self-care (01) ==
LOC: LABPAT 12:16
PROVIDERS: ATTEND Orthopaedic Surgery
DX: Z01.812 Encounter for preprocedural laboratory examination (principal); Z22.322 Carrier or suspected carrier of Methicillin resistant Staphylococcus aureus; S32.030A Wedge compression fracture of third lumbar vertebra, initial encounter for closed fracture; Y99.9 Unspecified external cause status
CPT/HCPCS: 80048; 85025; 85610; 86850; 86900; 86901

== ENCOUNTER → 2021-09-26 | Outpatient (CLI) | payer OTHER ==
[2021-09-26 19:15] LABS: ALT 15 U/L (8-44); AST 13 U/L (13-35); Chol/HDL Ratio 3.61 Ratio; LDL Cholesterol,Calculated 58.5 mg/dL (0.0-131.0)
== END | disposition home or self-care (01) ==
LOC: LABWHC1 12:20
PROVIDERS: ATTEND Nurse Practitioner Family
DX: E78.2 Mixed hyperlipidemia (principal)
CPT/HCPCS: 36415; 80061; 84450; 84460

== ENCOUNTER 2021-10-05 10:49 | Inpatient (IN) | payer OTHER ==
--- NOTE | 2021-10-05 12:34 | ED ---
General Adult HPI - General Chief complaint: Back Pain/Injury Stated complaint: Back Pain Time Seen by Provider: 10/05/21 12:06 Source: patient Mode of arrival: ambulatory Limitations: no limitations - History of Present Illness Initial comments: Dictation was produced using [employer] dictation software. please excuse any grammatical, word or spelling errors. Chief Complaint: 61-year-old female presents to the emergency department with lower back pain and right-sided rib pain History of Present Illness: 61-year-old female she suffered a recent spinal fracture. She is wearing a brace. States that 2 days ago she had a presyncopal episode causing her to fall. She states she landed on her buttocks. She states that since the fall she's been having worsening lower back pain and right-sided rib pain. Patient denies any full loss of consciousness. States that it hurts when she breathes. It hurts when she also tries to go about her daily business. Patient denies any numbness and paresthesias to the lower extremities. She is ambulatory walker at baseline. No saddle anesthesia, no urinary symptoms. The ROS documented in this emergency department record has been reviewed and confirmed by me. Those systems with pertinent positive or negative responses have been documented in the HPI. All other systems are other negative and/or noncontributory. PHYSICAL EXAM: General Impression: Alert and oriented x3, not in acute distress, wearing braces HEENT: Normocephalic atraumatic, extra-ocular movements intact, pupils equal and reactive to light bilaterally, mucous membranes moist. Cardiovascular: Heart regular rate and rhythm Chest: Able to complete full sentences, no retractions, no tachypnea, palpatory tenderness to the right anterior lower ribs Abdomen: abdomen soft, non-tender, non-distended, no organomegaly Musculoskeletal: Pulses present and equal in all extremities, no peripheral edema, palpatory tenderness to the entire lower back Motor: no focal deficits noted Neurological: CN II-XII grossly intact, no focal motor or sensory deficits noted Skin: Intact with no visualized rashes Psych: Normal affect and mood ED course: 61-year-old female with recent history of lumbar vertebral fractures presents to the emergency department for back pain and rib pain after fall 2 days ago. Vital Signs upon arrival are within acceptable limits. Patient is acute compression fracture of L3 vertebral body with 20% loss of height. CT of the chest abdomen and pelvis without contrast shows possible metastatic di sease to the bone. There does not appear to be any worsening wedge compression fracture at L3 Patient states she had a history of liver cancer that was treated with surgery. She states that she is in remission. She does not know any history of any sort of metastatic disease to the bone. Follow-up with any oncologist.. Laboratory evaluation obtained CBC, metabolic panel is unremarkable. Patient will be admitted with consultation to oncology. Patient admitted to [facility]. - Related Data Home Medications Medication Instructions Recorded Confirmed Venlafaxine HCl [Venlafaxine HCl 225 mg PO DAILY 10/21/16 10/02/21 ER] Loratadine [Claritin] 10 mg PO DAILY 03/29/19 10/02/21 Aspirin 81 mg PO DAILY 12/23/19 10/02/21 Atorvastatin [Lipitor] 80 mg PO HS 12/23/19 10/02/21 Pioglitazone [Actos] 15 mg PO DAILY 12/23/19 10/02/21 Pantoprazole Sodium [Protonix] 40 mg PO TID 04/06/20 10/02/21 Cariprazine HCl [Vraylar] 1.5 mg PO HS 05/13/20 10/02/21 Insulin Aspart (For Pump) [NovoLOG 0.01 unit SQ-PUMP CONTINUOUS 10/08/20 10/02/21 (For Pump)] Isosorbide Dinitrate [Isordil] 10 mg PO BID 10/31/20 10/02/21 Ezetimibe [Zetia] 10 mg PO DAILY 01/16/21 10/02/21 Levothyroxine Sodium [Synthroid] 150 mcg PO DAILY 01/16/21 10/02/21 Meclizine [Antivert] 25 mg PO TID 01/16/21 10/02/21 Nitroglycerin Sl Tabs [Nitrostat] 0.4 mg SUBLINGUAL Q5M PRN 02/27/21 10/02/21 Albuterol Sulfate [Proair Hfa] 1 puff INHALATION DIRECTED PRN 10/02/21 10/02/21 Beclomethasone Dip 80 Mcg/Puff 1 puff INHALATION BID 10/02/21 10/02/21 [Qvar 80 mcg] Cholecalciferol [Vitamin D3 (10 10 mcg PO DAILY 10/02/21 10/02/21 Mcg = 400 Iu)] Cyanocobalamin [Vitamin B-12] 500 mcg PO DAILY 10/02/21 10/02/21 Ferrous Sulfate [Feosol] 325 mg PO DAILY 10/02/21 10/02/21 Gabapentin 300 mg PO HS 10/02/21 10/02/21 Metoprolol Tartrate [Lopressor] 25 mg PO DAILY 10/02/21 10/02/21 Previous Rx's Medication Instructions Recorded Clopidogrel [Plavix] 75 mg PO DAILY #90 tab 08/13/21 lisinopriL [Zestril] 10 mg PO BID #180 tab 08/14/21 HYDROcodone/APAP 5-325MG [[place] 5] 1 each PO Q6HR PRN 3 Days #12 tab 09/13/21 Allergies Allergy/AdvReac Type Severity Reaction Status Date / Time grass pollen Allergy Unknown Verified 10/05/21 11:34 latex Allergy Rash/Hives Verified 10/05/21 11:34 Sulfa (Sulfonamide Allergy Rash/Hives/ Verified 10/05/21 11:34 Antibiotics) Swelling venom-honey bee Allergy Anaphylaxis Verified 10/05/21 11:34 morphine AdvReac Decreased Verified 10/05/21 11:34 Blood Pressure prochlorperazine edisylate AdvReac Vomiting Verified 10/05/21 11:34 [From Compazine] Review of Systems ROS Statement: Those systems with pertinent positive or pertinent negative responses have been documented in the HPI. ROS Other: All systems not noted in ROS Statement are negative. Past Medical History Past Medical History: Coronary Artery Disease (CAD), Cancer, COPD, CVA/TIA, Diabetes Mellitus, Deep Vein Thrombosis (DVT), Eye Disorder, GERD/Reflux, Hyperlipidemia, Hypertension, Myocardial Infarction (HI), Renal Disease, Rheumatoid Arthritis (RA), Sleep Apnea/CPAP/BIPAP, Syncope, Thyroid Disorder Additional Past Medical History / Comment(s): 09/16/16 with SBO with surgery/possible septic emboli with cavitary lesions bilateral lungs. 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 coli 2015 requiring PICC line insertion for IV antibiotics, restless leg syndrome, peripheral neropathy. Hx bilateral glaucoma, hx syncope r/t low blood sugars. No CPAP use. pt states had high blood sugar 1 week ago and was seen an [facility]. Last Myocardial Infarction Date:: 2019 History of Any Multi-Drug Resistant Organisms: ESBL, MRSA, VRE Date of last positivie culture/infection: 05/07/16 ESBL, 05/15/16 VRE, MRSA 09/2017 - upper lip MDRO Source:: URINE E.COLI, EC GALLINARUM Past Surgical History: Appendectomy, Bowel Resection, Section, Heart Catheterization, Heart Catheterization With Stent, Hernia Repair Additional Past Surgical History / Comment(s): 09/30 exploratory laparotomy with lysis of adhesions, bowel resection d/t obstruction. repair incarcerated incisional hernia with abdominal washout, thyroidectomy(non functioning), heart cath 06/28 - 100% occluded, unable to stent, partial left nephrectomy for left ki dney renal cell carcinoma, PICC line insertion (since removed), colonoscopy, bilateral cataract removal with lens implants, 2 Sections. cardiac Stent 03/2021 Past Anesthesia/Blood Transfusion Reactions: No Reported Reaction Date of Last Stent Placement:: 04/06/2021 Past Psychological History: Depression Smoking Status: Former smoker Past Alcohol Use History: None Reported Past Drug Use History: Marijuana - Past Family History Sister(s) Family Medical History: Cancer, Deep Vein Thrombosis (DVT) Additional Family Medical History / Comment(s): Patient has one sister that from liver cancer Brother(s) Family Medical History: Cancer, Deep Vein Thrombosis (DVT) Additional Family Medical History / Comment(s): Patient has 1 brother with past ETOH, past drug abuse, DVT's. She has a second brother that has from throat cancer. Daughter(s) Family Medical History: Diabetes Mellitus, Myocardial Infarction (HI) Additional Family Medical History / Comment(s): Daughter at 23 yrs old from massive HI. Father Family Medical History: Myocardial Infarction (HI) Additional Family Medical History / Comment(s): from mi at age 44 Mother Family Medical History: Cancer Additional Family Medical History / Comment(s): maeve breasts rcancer General Exam Limitations: no limitations Course Vital Signs 10/05/21 10/05/21 11:32 14:09 Temperature 98.8 F Pulse Rate 89 82 Respiratory 20 20 Rate Blood Pressure 119/80 116/70 O2 Sat by Pulse 97 98 Oximetry Medical Decision Making - Lab Data Result diagrams: 10/05/21 13:35 10/05/21 13:35 Lab Results 10/05/21 10/05/21 Range/Units 13:35 13:35 WBC 5.4 (3.8-10.6) k/uL RBC 3.68 L (3.80-5.40) m/uL Hgb 11.1 L (11.4-16.0) gm/dL Hct 34.5 (34.0-46.0) % MCV 93.8 (80.0-100.0) fL MCH 30.1 (25.0-35.0) pg MCHC 32.0 (31.0-37.0) g/dL RDW 14.3 (11.5-15.5) % Plt Count 257 (150-450) k/uL MPV 7.8 Neutrophils % 51 % Lymphocytes % 39 % Monocytes % 4 % Eosinophils % 5 % Basophils % 1 % Neutrophils # 2.8 (1.3-7.7) k/uL Lymphocytes # 2.1 (1.0-4.8) k/uL Monocytes # 0.2 (0-1.0) k/uL Eosinophils # 0.3 (0-0.7) k/uL Basophils # 0.0 (0-0.2) k/uL Sodium 137 (137-145) mmol/L Potassium 5.1 (3.5-5.1) mmol/L Chloride 102 (98-107) mmol/L Carbon Dioxide 28 (22-30) mmol/L Anion Gap 7 mmol/L BUN 23 H (7-17) mg/dL Creatinine 1.07 H (0.52-1.04) mg/dL Est GFR (CKD-EPI)AfAm 65 (>60 ml/min/1.73 sqM) Est GFR (CKD-EPI)NonAf 57 (>60 ml/min/1.73 sqM) Glucose 248 H (74-99) mg/dL Calcium 8.7 (8.4-10.2) mg/dL Disposition Clinical Impression: Metastatic bone cancer Disposition: ADMITTED IP TO THIS HOSP Condition: Fair Referrals: Sahra Elder MD [Primary Care Provider] - 1-2 days Decision Time: 14:18
--- NOTE | 2021-10-05 13:26 | CT ---
EXAMINATION TYPE: CT ChestAbdPelvis wo con DATE OF EXAM: 10/05/2021 COMPARISON: CT 01/16/2021, 08/11/2021 HISTORY: Back and rib pain CT DLP: 572.7 mGycm. Automated Exposure Control for Dose Reduction was Utilized. TECHNIQUE: CT scan of the thorax, abdomen and pelvis is performed without IV contrast. FINDINGS: Calcification noted at the cardiac apex, correlate for prior history of myocardial infarct. Coronary artery calcifications are present LUNGS: There is evidence of old granulomatous disease, calcified granuloma in the left lower lobe, th ere is no pleural or pericardial effusion MEDIASTINUM: There are no greater than 1 cm hilar or mediastinal lymph nodes. No pericardial effusi on is seen. There is calcification of the left hilar nodes, subcarinal node OTHER: No additional significant abnormality is seen. LIVER/GB: Pneumobilia is present, correlate for any history of instrumentation. Level of the gallblad martin appears somewhat irregular, may be contracted gallbladder, similar appearance to prior exam. PANCREAS: No significant abnormality is seen. SPLEEN: No significant abnormality is seen. ADRENALS: No significant abnormality is seen. KIDNEYS: Deformity of the left kidney appears chronic, there is nonobstructive calcification at the f or pole of left kidney has been present on previous exam measuring approximately 9 mm. BOWEL: Retained fecal debris present throughout the distribution of the colon. GENITAL ORGANS: No gross abnormality seen. LYMPH NODES: No greater than 1cm abdominal or pelvic lymph nodes are appreciated. OSSEOUS STRUCTURES: The vertical fracture through the body of L3 is again noted and show some scleros is. Endplate sclerosis at L1-2 is again noted and shows no change in alignment, no significant retrop ulsion. Multiple sclerotic areas are present within the thoracic spine. Spondylolysis at L5 with ante rolisthesis grade 1 L5-S1 again seen. There is thickening of the second rib, degenerative change betw een the second and third rib laterally on the right which is thought to be chronic. Sclerotic appeara nce of the right 12th rib is noted. There is a spinal curvature. OTHER: No significant additional abnormality is seen. IMPRESSION: Correlate for possible metastatic disease to bone. Fracture at L3 again noted without int erval change. Noncontrast exam. Coronary artery disease and additional findings and the heart is desc ribed. Pneumobilia, correlate.
[2021-10-05 13:42] LABS: Basophils % (A) 1 %; Eosinophils # (A) 0.3 k/uL (0-0.7); Eosinophils % (A) 5 %; HCT 34.5 % (34.0-46.0); HGB 11.1 gm/dL (11.4-16.0); Lymphocytes # (A) 2.1 k/uL (1.0-4.8); Lymphocytes % (A) 39 %; MCH 30.1 pg (25.0-35.0); MCV 93.8 fL (80.0-100.0); Mean Platelet Volume 7.8; Monocytes # (A) 0.2 k/uL (0-1.0); Monocytes % (A) 4 %; Neutrophils # (A) 2.8 k/uL (1.3-7.7); Neutrophils % (A) 51 %; Platelet Count 257 k/uL (150-450); RBC 3.68 m/uL (3.80-5.40); RDW 14.3 % (11.5-15.5); WBC 5.4 k/uL (3.8-10.6)
[2021-10-05 13:59] LABS: Calcium 8.7 mg/dL (8.4-10.2); Potassium 5.1 mmol/L (3.5-5.1)
[2021-10-05] MEDS ORDERED: oxyCODONE-APAP 10-325MG 1 EACH TAB PO STA (13:59)
[2021-10-05] MEDS ORDERED: ONDANSETRON 4 MG/2 ML VIAL IVP PRN (14:18)
[2021-10-05] MEDS ORDERED: NALOXONE 0.4 MG/ML 1 ML VIAL IV PRN ×2 (14:18→17:49)
[2021-10-05] MEDS: SODIUM CHLORIDE 0.9% 1,000 ML IV SCH (15:22)
[2021-10-05] MEDS ORDERED: INSPUCOR MISCELLANE PRN (17:46)
[2021-10-05] MEDS ORDERED: INSULIN PUMP BASAL RATES 1 EACH MISC MISCELLANE PRN (17:46)
[2021-10-05] MEDS ORDERED: INSULIN ASPART (NovoLOG) 100 UNIT/ML VIAL SQ PRN (17:46)
[2021-10-05 17:48] LABS: Glucose,Whole Blood 159 mg/dL (75-99)
[2021-10-05] MEDS ORDERED: NITROGLYCERIN SL TABS 0.4 MG TAB SUBLINGUAL PRN (17:50)
--- NOTE | 2021-10-05 18:01 | P.HPIM ---
History of Present Illness H&P Date: 10/05/21 Chief Complaint: fall 61-year-old female with history of coronary artery disease status post myocardial infarction last July with stent placement, had L3 spinal fracture while she was hospitalized in July. She presented to the emergency department due to right-sided rib pain. States that it hurts when she breathes. He states that she has been falling recently and that she felt almost 3 times. She thinks that she is falling due to dehydration. Denied focal weakness or numbness. Ortho was planning surgery on the L3 fx but according to patient insurance would not cover it and the surgery was cancelled. Denied having any cp or sob. No fevers. No loss of consciousness. Patient denies any numbness and paresthesias to the lower extremities. She is ambulatory walker at baseline. She lives with fiance. No urinary symptoms. CT of the chest abdomen and pelvis without contrast shows possible metastatic disease to the bone. There does not appear to be any worsening wedge compression fracture at L3. Patient was admitted for oncology evaluation. Review of Systems Complete review of system was performed, negative except for what is stated in HPI Past Medical History Past Medical History: Coronary Artery Disease (CAD), Cancer, COPD, CVA/TIA, Diabetes Mellitus, Deep Vein Thrombosis (DVT), Eye Disorder, GERD/Reflux, Hyperlipidemia, Hypertension, Myocardial Infarction (ND), Renal Disease, Rheumatoid Arthritis (RA), Sleep Apnea/CPAP/BIPAP, Syncope, Thyroid Disorder Additional Past Medical History / Comment(s): 09/16/16 with SBO with surgery/possible septic emboli with cavitary lesions bilateral lungs. 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 coli 2015 requiring PICC line insertion for IV antibiotics, restless leg syndrome, peripheral neropathy. Hx bilateral glaucoma, hx syncope r/t low blood sugars. No CPAP use. pt states had high blood sugar 1 week ago and was seen an [facility]. Last Myocardial Infarction Date:: 2019 History of Any Multi-Drug Resistant Organisms: ESBL, MRSA, VRE Date of last positivie culture/infection: 05/07/16 ESBL, 05/15/16 VRE, MRSA 09/2017 - upper lip MDRO Source:: URINE E.COLI, EC GALLINARUM Past Surgical History: Appendectomy, Bowel Resection, Section, Heart Catheterization, Heart Catheterization With Stent, Hernia Repair Additional Past Surgical History / Comment(s): 09/30 exploratory laparotomy with lysis of adhesions, bowel resection d/t obstruction. repair incarcerated incisional hernia with abdominal washout, thyroidectomy(non functioning), heart cath 06/28 - 100% occluded, unable to stent, partial left nephrectomy for left kidney renal cell carcinoma, PICC line insertion (since removed), colonoscopy, bilateral cataract removal with lens implants, 2 Sections. cardiac Stent 03/2021 Past Anesthesia/Blood Transfusion Reactions: No Reported Reaction Date of Last Stent Placement:: 04/06/2021 Past Psychological History: Depression Additional Psychological History / Comment(s): . Smoking Status: Former smoker Past Alcohol Use History: None Reported Additional Past Alcohol Use History / Comment(s): STARTED SMOKING AT AGE 8, smoked one to one and half packs per day for 50 years. quit smoking 2 months ago Past Drug Use History: Marijuana Additional Drug Use History / Comment(s): USES MARIJUANA daily , Hx of addiction to cocaine, has not used in 20 yrs. - Past Family History Sister(s) Family Medical History: Cancer, Deep Vein Thrombosis (DVT) Additional Family Medical History / Comment(s): Patient has one sister that from liver cancer Brother(s) Family Medical History: Cancer, Deep Vein Thrombosis (DVT) Additional Family Medical History / Comment(s): Patient has 1 brother with past ETOH, past drug abuse, DVT's. She has a second brother that has from throat cancer. Daughter(s) Family Medical History: Diabetes Mellitus, Myocardial Infarction (ND) Additional Family Medical History / Comment(s): Daughter at 23 yrs old from massive ND. Father Family Medical History: Myocardial Infarction (ND) Additional Family Medical History / Comment(s): from mi at age 44 Mother Family Medical History: Cancer Additional Family Medical History / Comment(s): maeve breasts rcancer Medications and Allergies Home Medications Medication Instructions Recorded Confirmed Type Venlafaxine HCl [Venlafaxine HCl 225 mg PO AC-BRKFST 10/21/16 10/05/21 History ER] Loratadine [Claritin] 10 mg PO DAILY 03/29/19 10/05/21 History Aspirin 81 mg PO DAILY 12/23/19 10/05/21 History Pioglitazone [Actos] 15 mg PO DAILY 12/23/19 10/05/21 History Pantoprazole Sodium [Protonix] 40 mg PO BID 04/06/20 10/05/21 History Cariprazine HCl [Vraylar] 1.5 mg PO DAILY 05/13/20 10/05/21 History Insulin Aspart (For Pump) [NovoLOG 0.01 unit SQ-PUMP CONTINUOUS 10/08/20 10/05/21 History (For Pump)] Isosorbide Dinitrate [Isordil] 10 mg PO BID 10/31/20 10/05/21 History Ezetimibe [Zetia] 10 mg PO DAILY 01/16/21 10/05/21 History Meclizine [Antivert] 25 mg PO TID PRN 01/16/21 10/05/21 History Nitroglycerin Sl Tabs [Nitrostat] 0.4 mg SUBLINGUAL Q5M PRN 02/27/21 10/05/21 History Clopidogrel [Plavix] 75 mg PO DAILY #90 tab 08/13/21 10/05/21 Rx Cholecalciferol [Vitamin D3 (10 10 mcg PO DAILY 10/02/21 10/05/21 History Mcg = 400 Iu)] Cyanocobalamin [Vitamin B-12] 500 mcg PO DAILY 10/02/21 10/05/21 History Ferrous Sulfate [Feosol] 325 mg PO DAILY 10/02/21 10/05/21 History Cyclobenzaprine [Flexeril] 10 mg PO DAILY 10/05/21 10/05/21 History Diclofenac Sodium Gel [Voltaren 4 gm TOPICAL TID 10/05/21 10/05/21 History Gel] Levothyroxine Sodium [Synthroid] 175 mcg PO DAILY 10/05/21 10/05/21 History Magnesium 200 mg PO DAILY 10/05/21 10/05/21 History Metoprolol Succinate (ER) [Toprol 25 mg PO DAILY 10/05/21 10/05/21 History Xl] lisinopriL [Zestril] 10 mg PO DAILY 10/05/21 10/05/21 History Allergies Allergy/AdvReac Type Severity Reaction Status Date / Time grass pollen Allergy Unknown Verified 10/05/21 15:31 latex Allergy Rash/Hives Verified 10/05/21 15:31 Sulfa (Sulfonamide Allergy Rash/Hives/ Verified 10/05/21 15:31 Antibiotics) Swelling venom-honey bee Allergy Anaphylaxis Verified 10/05/21 15:31 morphine AdvReac Decreased Verified 10/05/21 15:31 Blood Pressure prochlorperazine edisylate AdvReac Vomiting Verified 10/05/21 15:31 [From Compazine] Physical Exam Vitals: Vital Signs Temp Pulse Pulse Resp BP BP Pulse Ox 10/05/21 16:24 97.8 F 94 20 132/74 100 10/05/21 14:09 82 20 116/70 98 10/05/21 11:32 98.8 F 89 20 119/80 97 Intake and Output 10/05/21 10/05/21 10/05/21 06:59 14:59 22:59 Other: Weight 69.4 kg Constitutional: No acute distress, conversant, pleasant Eyes:Anicteric sclerae, moist conjunctiva, no lid-lag, PERRLA, ENMT: Oropharynx clear, no erythema, exudates Neck: Supple, FROM, no masses, or JVD, No carotid bruits, No thyromegaly Lungs: Clear to auscultation, Clear to percussion, Normal respiratory effort, no accessory muscle use Cardiovascular: Heart regular in rate and rhythm, No murmurs, gallops, or rubs, No peripheral edema Abdominal: Soft, Nontender, no guarding, rebound or rigidity, Normoactive bowel sounds, No hepatomegaly, No splenomegaly, No palpable mass Skin: Normal temperature, tone, texture, turgor, no induration, No subcutaneous nodules, No rash, lesions, No ulcers Extremities: No digital cyanosis, No clubbing, Pedal pulses intact and symmetrical, Radial pulses intact and symmetrical, No calf tenderness Psychiatric: Alert and oriented to person, place and time, appropriate affect, intact judgement Neuro: Muscles Strength 5/5 in all 4 extremities, Sensation to light touch grossly present throughout, Cranial nerves II-XII grossly intact, no focal sensory deficits Results CBC & Chem 7: 10/05/21 13:35 10/05/21 13:35 Labs: Abnormal Lab Results - Last 24 Hours (Table) 10/05/21 10/05/21 Range/Units 13:35 13:35 RBC 3.68 L (3.80-5.40) m/uL Hgb 11.1 L (11.4-16.0) gm/dL BUN 23 H (7-17) mg/dL Creatinine 1.07 H (0.52-1.04) mg/dL Glucose 248 H (74-99) mg/dL Thrombosis Risk Factor Assmnt - Choose All That Apply Any of the Below Risk Factors Present?: Yes Each Risk Factor Represents 2 Points: Age 61-74 years Each Risk Factor Represents 3 Points: History of DVT/PE Thrombosis Risk Factor Assessment Total Risk Factor Score: 5 Thrombosis Risk Factor Assessment Level: High Risk Assessment and Plan Plan: Bone mets Seen by oncology Bone scan ordered L3 Fracture [place] prn PT Frequent falls PT Diabetes 2 Hold actos Continue insulin pump with SSI with bs checks every ac and hs. Hypothyroidism Check TSH Continue levothyroxine CAD recent [place] GERD/Reflux, Hyperlipidemia, Hypertension All stable resume meds Admit to inpatient expected length of stay more than 2 midnights.
[2021-10-05] MEDS: Insulin Aspart (For Pump) 100 UNIT/ML VIAL SQ-PUMP SCH (18:09)
[2021-10-05] MEDS: PANTOPRAZOLE 40 MG TABLET PO SCH (18:10)
--- NOTE | 2021-10-05 18:16 | P.CONS ---
History of Present Illness - Reason for Consult Consult date: 10/05/21 Suspicious Bony lesions Requesting physician: Adrián Patton - Chief Complaint back pain - History of Present Illness Mrs Kenyon is a 61-year-old female past medical history including kidney cancer in approximately 2006 with nephrectomy through [facility]. She was seen recently in hospital after a fall at home, she was diagnosed with compression fracture. She states fall proceeded a recently diagnosed lumbar spine compression fracture. She was following with Dr. Eldridge as outpatient, admitting to unilateral paresthesias and worsening pain. This was what has brought her back to hospital as she states her pain is not controlled as outpatient.She is unable take NSAIDs due to her cardiac history. Has been attempting pain management with Flexeril and Tylenol at home without success. Review of her recent lumbar CT imaging and CT chest/abdomen and pelvis are non specific regarding diagnostic malignancy. We have been asked to further evaluate regarding possibility of metastatic bone lesions. Patient was seen by Dr. Bryan and myself in the Emergency department today. Review of Systems All systems: negative Constitutional: Reports as per HPI Past Medical History Past Medical History: Coronary Artery Disease (CAD), Cancer, COPD, CVA/TIA, Diabetes Mellitus, Deep Vein Thrombosis (DVT), Eye Disorder, GERD/Reflux, Hyperlipidemia, Hypertension, Myocardial Infarction ([place]), Renal Disease, Rheumatoid Arthritis (RA), Sleep Apnea/CPAP/BIPAP, Syncope, Thyroid Disorder Additional Past Medical History / Comment(s): 09/16/16 with SBO with surgery/possible septic emboli with cavitary lesions bilateral lungs. 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 coli Nov2015 requiring PICC line insertion for IV antibiotics, restless leg syndrome, peripheral neropathy. Hx bilateral glaucoma, hx syncope r/t low blood sugars. No CPAP use. pt states had high blood sugar 1 week ago and was seen an [facility]. Last Myocardial Infarction Date:: 2019 History of Any Multi-Drug Resistant Organisms: ESBL, MRSA, VRE Year Discovered:: 05/07/16 ESBL, 05/15/16 VRE, MRSA 09/2017 - upper lip MDRO Source:: URINE E.COLI, EC GALLINARUM Past Surgical History: Appendectomy, Bowel Resection, Section, Heart Catheterization, Heart Catheterization With Stent, Hernia Repair Additional Past Surgical History / Comment(s): 09/30 exploratory laparotomy with lysis of adhesions, bowel resection d/t obstruction. repair incarcerated incisional hernia with abdominal washout, thyroidectomy(non functioning), heart cath 06/28 - 100% occluded, unable to stent, partial left nephrectomy for left kidney renal cell carcinoma, PICC line insertion (since removed), colonoscopy, bilateral cataract removal with lens implants, 2 Sections. cardiac Stent 03/2021 Past Anesthesia/Blood Transfusion Reactions: No Reported Reaction Date of Last Stent Placement:: 04/06/2021 Past Psychological History: Depression Additional Psychological History / Comment(s): . Smoking Status: Former smoker Past Alcohol Use History: None Reported Additional Past Alcohol Use History / Comment(s): STARTED SMOKING AT AGE 8, smoked one to one and half packs per day for 50 years. quit smoking 2 months ago Past Drug Use History: Marijuana Additional Drug Use History / Comment(s): USES MARIJUANA daily , Hx of addiction to cocaine, has not used in 20 yrs. - Past Family History Sister(s) Family Medical History: Cancer, Deep Vein Thrombosis (DVT) Additional Family Medical History / Comment(s): Patient has one sister that from liver cancer Brother(s) Family Medical History: Cancer, Deep Vein Thrombosis (DVT) Additional Family Medical History / Comment(s): Patient has 1 brother with past ETOH, past drug abuse, DVT's. She has a second brother that has from throat cancer. Daughter(s) Family Medical History: Diabetes Mellitus, Myocardial Infarction (TN) Additional Family Medical History / Comment(s): Daughter at 23 yrs old from massive [place]. Father Family Medical History: Myocardial Infarction ([place]) Additional Family Medical History / Comment(s): from mi at age 44 Mother Family Medical History: Cancer Additional Family Medical History / Comment(s): maeve breasts rcancer Medications and Allergies Home Medications Medication Instructions Recorded Confirmed Type Venlafaxine HCl [Venlafaxine HCl 225 mg PO AC-BRKFST 10/21/16 10/05/21 History ER] Loratadine [Claritin] 10 mg PO DAILY 03/29/19 10/05/21 History Aspirin 81 mg PO DAILY 12/23/19 10/05/21 History Pioglitazone [Actos] 15 mg PO DAILY 12/23/19 10/05/21 History Pantoprazole Sodium [Protonix] 40 mg PO BID 04/06/20 10/05/21 History Cariprazine HCl [Vraylar] 1.5 mg PO DAILY 05/13/20 10/05/21 History Insulin Aspart (For Pump) [NovoLOG 0.01 unit SQ-PUMP CONTINUOUS 10/08/20 10/05/21 History (For Pump)] Isosorbide Dinitrate [Isordil] 10 mg PO BID 10/31/20 10/05/21 History Ezetimibe [Zetia] 10 mg PO DAILY 01/16/21 10/05/21 History Meclizine [Antivert] 25 mg PO TID PRN 01/16/21 10/05/21 History Nitroglycerin Sl Tabs [Nitrostat] 0.4 mg SUBLINGUAL Q5M PRN 02/27/21 10/05/21 History Clopidogrel [Plavix] 75 mg PO DAILY #90 tab 08/13/21 10/05/21 Rx Cholecalciferol [Vitamin D3 (10 10 mcg PO DAILY 10/02/21 10/05/21 History Mcg = 400 Iu)] Cyanocobalamin [Vitamin B-12] 500 mcg PO DAILY 10/02/21 10/05/21 History Ferrous Sulfate [Feosol] 325 mg PO DAILY 10/02/21 10/05/21 History Cyclobenzaprine [Flexeril] 10 mg PO DAILY 10/05/21 10/05/21 History Diclofenac Sodium Gel [Voltaren 4 gm TOPICAL TID 10/05/21 10/05/21 History Gel] Levothyroxine Sodium [Synthroid] 175 mcg PO DAILY 10/05/21 10/05/21 History Magnesium 200 mg PO DAILY 10/05/21 10/05/21 History Metoprolol Succinate (ER) [Toprol 25 mg PO DAILY 10/05/21 10/05/21 History Xl] lisinopriL [Zestril] 10 mg PO DAILY 10/05/21 10/05/21 History Allergies Allergy/AdvReac Type Severity Reaction Status Date / Time grass pollen Allergy Unknown Verified 10/05/21 15:31 latex Allergy Rash/Hives Verified 10/05/21 15:31 Sulfa (Sulfonamide Allergy Rash/Hives/ Verified 10/05/21 15:31 Antibiotics) Swelling venom-honey bee Allergy Anaphylaxis Verified 10/05/21 15:31 morphine AdvReac Decreased Verified 10/05/21 15:31 Blood Pressure prochlorperazine edisylate AdvReac Vomiting Verified 10/05/21 15:31 [From Compazine] Physical Exam Vitals: Vital Signs Temp Pulse Pulse Resp BP BP Pulse Ox 10/05/21 16:24 97.8 F 94 20 132/74 100 10/05/21 14:09 82 20 116/70 98 10/05/21 11:32 98.8 F 89 20 119/80 97 Intake and Output 10/05/21 10/05/21 10/05/21 06:59 14:59 22:59 Other: Weight 69.4 kg - Constitutional General appearance: cooperative, no acute distress - EENT Eyes: edentulous, EOMI, poor dentition ENT: NA/AT - Neck Neck: normal ROM - Respiratory Respiratory: bilateral: diminished - Cardiovascular Rhythm: regularly irregular leg Peripheral Edema: bilateral: Trace - Gastrointestinal General gastrointestinal: normal bowel sounds - Integumentary Integumentary: pale - Neurologic non focal - Musculoskeletal Musculoskeletal: generalized weakness - Psychiatric Psychiatric: A&O x's 3 Results CBC & Chem 7: 10/05/21 13:35 10/05/21 13:35 Labs: Abnormal Lab Results - Last 24 Hours (Table) 10/05/21 10/05/21 Range/Units 13:35 13:35 RBC 3.68 L (3.80-5.40) m/uL Hgb 11.1 L (11.4-16.0) gm/dL BUN 23 H (7-17) mg/dL Creatinine 1.07 H (0.52-1.04) mg/dL Glucose 248 H (74-99) mg/dL Comments: CT lumbar Spine CT scan - abdomen: report reviewed CT scan - chest: report reviewed CT scan - pelvis: report reviewed Assessment and Plan (1) History of kidney cancer Current Visit: Yes Status: Acute Code(s): Z85.528 - PERSONAL HISTORY OF OTHER MALIGNANT NEOPLASM OF KIDNEY SNOMED Code(s): 249991365 (2) DKA (diabetic ketoacidoses) Current Visit: No Status: Acute Code(s): E13.10 - OTH DIABETES MELLITUS WITH KETOACIDOSIS WITHOUT COMA SNOMED Code(s): 090997821 (3) Abnormal CT of spine Current Visit: Yes Status: Acute Code(s): R93.7 - ABNORMAL FINDINGS ON D IAGNOSTIC IMAGING OF PRT MS PENA SNOMED Code(s): 279444103 Plan: Will further evaluate with Bone scan to assess for metastatic cancer. Oncologic history is a bit missing due to these records being at outside hospital and patients historical story is a bit poor. [facility] following Pain management per ortho and primary teams Dr. Younger: I have completed the full history and physical and developed the above impression and plan, agree with dictation, dictated as a scribe.
[2021-10-05 20:08] LABS: Glucose,Whole Blood 182 mg/dL (75-99)
[2021-10-05] MEDS: INSULIN PUMP MEAL BOLUS 1 UNIT MISC MISCELLANE SCH (20:34)
[2021-10-05] MEDS: ISOSORBIDE DINITRATE 10 MG TAB PO SCH (20:34)
[2021-10-06] MEDS: HYDROcodone/APAP 5-325MG 1 EACH TAB PO PRN ×3 (01:23→17:49)
[2021-10-06 03:54] LABS: Glucose,Whole Blood 63 mg/dL (75-99)
[2021-10-06 04:25] LABS: Glucose,Whole Blood 59 mg/dL (75-99)
[2021-10-06 04:52] LABS: Glucose,Whole Blood 107 mg/dL (75-99)
[2021-10-06] MEDS ORDERED: LEVOTHYROXINE 88 MCG TAB PO SCH (06:30)
[2021-10-06 07:14] LABS: Glucose,Whole Blood 331 mg/dL (75-99)
[2021-10-06] MEDS: PANTOPRAZOLE 40 MG TABLET PO SCH ×2 (08:24→17:49)
[2021-10-06] MEDS: LORATADINE 10 MG TAB PO SCH (08:24)
[2021-10-06] MEDS: MAGNESIUM OXIDE 400 MG TAB PO SCH (08:24)
[2021-10-06] MEDS: ASPIRIN 81 MG PO SCH (08:24)
[2021-10-06] MEDS: EZETIMIBE 10 MG TAB PO SCH (08:24)
[2021-10-06] MEDS: INSULIN PUMP MEAL BOLUS 1 UNIT MISC MISCELLANE SCH ×4 (08:25→21:14)
[2021-10-06] MEDS: CYANOCOBALAMIN 500 MCG TAB PO SCH (08:25)
[2021-10-06] MEDS: PIOGLITAZONE 15 MG TAB PO SCH (08:25)
[2021-10-06] MEDS: VENLAFAXINE HCL ER 75 MG CAP PO SCH (08:25)
[2021-10-06] MEDS: lisinopriL 10 MG TAB PO SCH (08:25)
[2021-10-06] MEDS: CLOPIDOGREL 75 MG TAB PO SCH (08:25)
[2021-10-06] MEDS: METOPROLOL SUCCINATE (ER) 25 MG TAB.ER.24H PO SCH (08:25)
[2021-10-06] MEDS: CYCLOBENZAPRINE 10 MG TAB PO SCH (08:25)
[2021-10-06] MEDS: ISOSORBIDE DINITRATE 10 MG TAB PO SCH ×2 (08:25→21:14)
[2021-10-06] MEDS: CHOLECALCIFEROL 10 MCG (400 IU) TABLET PO SCH (08:25)
[2021-10-06] MEDS: FERROUS SULFATE 325 MG TAB PO SCH (08:25)
[2021-10-06] MEDS: NON FORMULARY DRUG (Cariprazine Hcl [Vraylar] 1.5 MG Capsule) PO SCH (08:26)
[2021-10-06 11:53] LABS: Glucose,Whole Blood 400 mg/dL (75-99)
--- NOTE | 2021-10-06 12:40 | P.PN ---
Subjective Progress Note Date: 10/06/21 Principal diagnosis: back pain States that she feels a little better today, had problems with hypoglycemia this am, currently hyper. She has insulin pump. Still with pain in the right side but less. Objective - Vital Signs Vital signs: Vital Signs Temp 98 F 10/06/21 07:00 Pulse 96 10/06/21 07:00 Resp 18 10/06/21 07:00 BP 119/72 10/06/21 07:00 Pulse Ox 99 10/06/21 07:00 Intake & Output 10/05/21 10/06/21 10/06/21 18:59 06:59 18:59 Intake Total 240 120 Balance 240 120 Weight 69.4 kg Intake: Oral 240 120 Other: # Voids 1 - Exam Constitutional: No acute distress, conversant, pleasant Eyes:Anicteric sclerae, moist conjunctiva, no lid-lag, PERRLA, ENMT: Oropharynx clear, no erythema, exudates Neck: Supple, FROM, no masses, or JVD, No carotid bruits, No thyromegaly Lungs: Clear to auscultation, Clear to percussion, Normal respiratory effort, no accessory muscle use Cardiovascular: Heart regular in rate and rhythm, No murmurs, gallops, or rubs, No peripheral edema Abdominal: Soft, Nontender, no guarding, rebound or rigidity, Normoactive bowel sounds, No hepatomegaly, No splenomegaly, No palpable mass Skin: Normal temperature, tone, texture, turgor, no induration, No subcutaneous nodules, No rash, lesions, No ulcers Extremities: No digital cyanosis, No clubbing, Pedal pulses intact and symmetrical, Radial pulses intact and symmetrical, No calf tenderness Psychiatric: Alert and oriented to person, place and time, appropriate affect, intact judgement Neuro: Muscles Strength 5/5 in all 4 extremities, Sensation to light touch grossly present throughout, Cranial nerves II-XII grossly intact, no focal sensory deficits - Labs CBC & Chem 7: 10/05/21 13:35 10/05/21 13:35 Labs: Abnormal Lab Results - Last 24 Hours (Table) 10/05/21 10/05/21 10/05/21 Range/Units 13:35 13:35 13:35 RBC 3.68 L (3.80-5.40) m/uL Hgb 11.1 L (11.4-16.0) gm/dL BUN 23 H (7-17) mg/dL Creatinine 1.07 H (0.52-1.04) mg/dL Glucose 248 H (74-99) mg/dL POC Glucose (mg/dL) (75-99) mg/dL Vitamin D 25-Hydroxy 22.4 L (30.0-100.0) ng/mL TSH (0.350-5.500) uIU/mL 10/05/21 10/05/21 10/06/21 Range/Units 17:47 20:07 03:53 RBC (3.80-5.40) m/uL Hgb (11.4-16.0) gm/dL BUN (7-17) mg/dL Creatinine (0.52-1.04) mg/dL Glucose (74-99) mg/dL POC Glucose (mg/dL) 159 H 182 H 63 L (75-99) mg/dL Vitamin D 25-Hydroxy (30.0-100.0) ng/mL TSH (0.350-5.500) uIU/mL 10/06/21 10/06/21 10/06/21 Range/Units 04:24 04:50 06:59 RBC (3.80-5.40) m/uL Hgb (11.4-16.0) gm/dL BUN (7-17) mg/dL Creatinine (0.52-1.04) mg/dL Glucose (74-99) mg/dL POC Glucose (mg/dL) 59 L 107 H 331 H (75-99) mg/dL Vitamin D 25-Hydroxy (30.0-100.0) ng/mL TSH (0.350-5.500) uIU/mL 10/06/21 10/06/21 Range/Units 07:14 11:51 RBC (3.80-5.40) m/uL Hgb (11.4-16.0) gm/dL BUN (7-17) mg/dL Creatinine (0.52-1.04) mg/dL Glucose (74-99) mg/dL POC Glucose (mg/dL) 400 H (75-99) mg/dL Vitamin D 25-Hydroxy (30.0-100.0) ng/mL TSH 12.700 H (0.350-5.500) uIU/mL Assessment and Plan Plan: Bone mets Seen by oncology Bone scan and MRI spine ordered--pending L3 Fracture [place] prn PT Frequent falls PT Diabetes 2 Hold actos Continue insulin pump with SSI with bs checks every ac and hs. Hypothyroidism TSH high, will increase levothyroxine to 200mcg daily. CAD recent IN GERD/Reflux, Hyperlipidemia, Hypertension All stable resume meds
[2021-10-06] MEDS: SODIUM CHLORIDE 0.9% 1,000 ML IV SCH (15:28)
--- NOTE | 2021-10-06 15:31 | MR ---
EXAMINATION TYPE: MR lspine/sacrum wo/w con DATE OF EXAM: 10/06/2021 COMPARISON: None HISTORY: Assess for cord imvolvement, metastatic bone disease, fall 6 weeks ago CONTRAST: Standard multiplanar, multisequence MRI departmental protocol images were obtained without contrast a nd with 7 mL intravenous Gadavist gadolinium contrast. Multiplanar multiecho imaging of the lumbar spine and sacrum without and with IV contrast. There is a 7 mm anterior subluxation of L5 in relation to S1. There is severe narrowing of L5-S1 disc space. On the T1 images there is abnormal decreased signal throughout the L3 vertebral body. There i s decreased signal on both sides of the L1-2 disc. There is 25% compression deformity of L3. There is biconcave deformity. There is small posterior disc bulge and spur formation at L1-2. There is no lum bar paraspinal mass. No pathologic fluid collection. The sacroiliac joints are intact. Contrast image s show enhancement of the L3 vertebral body. The sacrum and coccygeal segments show normal alignment. No fracture seen. There is mild enhancement of the L1-2 disc. IMPRESSION: Compression fracture of L3 with enhancement and consistent with subacute fracture. Degenerative first degree L4-5 spondylolisthesis. There is some mild enhancement at the L1-2 disc that could relate to chronic discitis. No significant spinal stenosis. No significant abnormality of the sacrum.
[2021-10-06 17:04] LABS: Glucose,Whole Blood 148 mg/dL (75-99)
[2021-10-06] MEDS: Insulin Aspart (For Pump) 100 UNIT/ML VIAL SQ-PUMP SCH (17:50)
[2021-10-06 20:18] LABS: Glucose,Whole Blood 130 mg/dL (75-99)
[2021-10-07 02:32] LABS: Glucose,Whole Blood 198 mg/dL (75-99)
[2021-10-07] MEDS: LEVOTHYROXINE 100 MCG TAB PO SCH (05:53)
[2021-10-07 07:02] LABS: Glucose,Whole Blood 135 mg/dL (75-99)
[2021-10-07] MEDS: INSULIN PUMP MEAL BOLUS 1 UNIT MISC MISCELLANE SCH ×4 (08:39→20:44)
[2021-10-07] MEDS: VENLAFAXINE HCL ER 75 MG CAP PO SCH (08:46)
[2021-10-07] MEDS: PANTOPRAZOLE 40 MG TABLET PO SCH ×2 (08:46→18:30)
[2021-10-07] MEDS: CYANOCOBALAMIN 500 MCG TAB PO SCH (08:46)
[2021-10-07] MEDS: HYDROcodone/APAP 5-325MG 1 EACH TAB PO PRN ×2 (08:46→18:56)
[2021-10-07] MEDS: FERROUS SULFATE 325 MG TAB PO SCH (08:47)
[2021-10-07] MEDS: CLOPIDOGREL 75 MG TAB PO SCH (08:47)
[2021-10-07] MEDS: MAGNESIUM OXIDE 400 MG TAB PO SCH (08:47)
[2021-10-07] MEDS: ASPIRIN 81 MG PO SCH (08:47)
[2021-10-07] MEDS: METOPROLOL SUCCINATE (ER) 25 MG TAB.ER.24H PO SCH (08:47)
[2021-10-07] MEDS: CHOLECALCIFEROL 10 MCG (400 IU) TABLET PO SCH (08:47)
[2021-10-07] MEDS: EZETIMIBE 10 MG TAB PO SCH (08:47)
[2021-10-07] MEDS: NON FORMULARY DRUG (Cariprazine Hcl [Vraylar] 1.5 MG Capsule) PO SCH (08:47)
[2021-10-07] MEDS: lisinopriL 10 MG TAB PO SCH (08:47)
[2021-10-07] MEDS: PIOGLITAZONE 15 MG TAB PO SCH (08:47)
[2021-10-07] MEDS: CYCLOBENZAPRINE 10 MG TAB PO SCH (08:47)
[2021-10-07] MEDS: LORATADINE 10 MG TAB PO SCH (08:47)
[2021-10-07] MEDS: ISOSORBIDE DINITRATE 10 MG TAB PO SCH ×2 (08:47→20:44)
[2021-10-07 11:44] LABS: Basophils # (A) 0.03 X 10*3/uL (0.00-0.10); Basophils % (A) 0.7 %; Eosinophils # (A) 0.24 X 10*3/uL (0.04-0.35); Eosinophils % (A) 5.9 %; HCT 32.4 % (37.2-46.3); Immature Grans, Automated 0.2 %; Lymphocytes % (A) 39.4 %; MCH 29.5 pg (27.0-32.0); MCHC 30.9 g/dL (32.0-37.0); MCV 95.6 fL (80.0-97.0); Mean Platelet Volume 10.5 fL (9.5-12.2); Monocytes # (A) 0.28 X 10*3/uL (0.20-1.00); Monocytes % (A) 6.9 %; NRBC Per 100 WBC 0 /100 WBCS (0.0-0.0); Neutrophils % (A) 46.9 %; Platelet Count 231 X 10*3/uL (140-440); RBC 3.39 X 10*6/uL (4.10-5.20); RDW 14.3 % (11.5-14.5); WBC 4.06 X 10*3/uL (4.50-10.00)
[2021-10-07 11:47] LABS: Glucose,Whole Blood 249 mg/dL (75-99)
[2021-10-07 11:55] LABS: ALT 12 U/L (8-44); AST 16 U/L (13-35); African American GFR (CKD) 62.8 (60.0-200.0); Albumin 3.5 g/dL (3.8-4.9); Albumin/Globulin Ratio 1.75 (1.60-3.17); Alkaline Phosphatase 111 U/L (41-126); BUN/Creat Ratio 20.82 Ratio (12.00-20.00); Blood Urea Nitrogen 22.9 mg/dL (9.0-27.0); Calcium 8.7 mg/dL (8.7-10.3); Carbon Dioxide 25.8 mmol/L (20.0-27.5); Chloride 104 mmol/L (96-109); Glucose 120 mg/dL (70-110); Non-African American GFR(CKD) 54.1 (60.0-200.0); Sodium 140 mmol/L (135-145); Total Bilirubin <0.15 mg/dL (0.30-1.20); Total Protein 5.5 g/dL (6.2-8.2)
--- NOTE | 2021-10-07 13:56 | P.PN ---
Subjective Progress Note Date: 10/07/21 Principal diagnosis: back pain Doing well. Still with back pain. No other complaints. Objective - Vital Signs Vital signs: Vital Signs Temp 97.9 F 10/07/21 06:51 Pulse 80 10/07/21 06:51 Resp 18 10/07/21 06:51 BP 93/53 10/07/21 06:51 Pulse Ox 98 10/07/21 06:51 Intake & Output 10/06/21 10/07/21 10/07/21 18:59 06:59 18:59 Intake Total 240 240 Balance 240 240 Intake: Oral 240 240 Other: # Voids 1 1 - Exam Constitutional: No acute distress, conversant, pleasant Eyes:Anicteric sclerae, moist conjunctiva, no lid-lag, PERRLA, ENMT: Oropharynx clear, no erythema, exudates Neck: Supple, FROM, no masses, or JVD, No carotid bruits, No thyromegaly Lungs: Clear to auscultation, Clear to percussion, Normal respiratory effort, no accessory muscle use Cardiovascular: Heart regular in rate and rhythm, No murmurs, gallops, or rubs, No peripheral edema Abdominal: Soft, Nontender, no guarding, rebound or rigidity, Normoactive bowel sounds, No hepatomegaly, No splenomegaly, No palpable mass Skin: Normal temperature, tone, texture, turgor, no induration, No subcutaneous nodules, No rash, lesions, No ulcers Extremities: No digital cyanosis, No clubbing, Pedal pulses intact and symmetrical, Radial pulses intact and symmetrical, No calf tenderness Psychiatric: Alert and oriented to person, place and time, appropriate affect, intact judgement Neuro: Muscles Strength 5/5 in all 4 extremities, Sensation to light touch grossly present throughout, Cranial nerves II-XII grossly intact, no focal sensory deficits - Labs CBC & Chem 7: 10/07/21 06:37 10/07/21 06:37 Labs: Abnormal Lab Results - Last 24 Hours (Table) 10/06/21 10/06/21 10/07/21 Range/Units 16:59 20:16 02:30 WBC (4.50-10.00) X 10*3/uL RBC (4.10-5.20) X 10*6/uL Hgb (12.0-15.0) g/dL Hct (37.2-46.3) % MCHC (32.0-37.0) g/dL Est GFR (CKD-EPI)NonAf (60.0-200.0) BUN/Creatinine Ratio (12.00-20.00) Ratio Glucose (70-110) mg/dL POC Glucose (mg/dL) 148 H 130 H 198 H (75-99) mg/dL Total Bilirubin (0.30-1.20) mg/dL Total Protein (6.2-8.2) g/dL Albumin (3.8-4.9) g/dL 10/07/21 10/07/21 10/07/21 Range/Units 06:37 06:37 06:51 WBC 4.06 L (4.50-10.00) X 10*3/uL RBC 3.39 L (4.10-5.20) X 10*6/uL Hgb 10.0 L (12.0-15.0) g/dL Hct 32.4 L (37.2-46.3) % MCHC 30.9 L (32.0-37.0) g/dL Est GFR (CKD-EPI)NonAf 54.1 L (60.0-200.0) BUN/Creatinine Ratio 20.82 H (12.00-20.00) Ratio Glucose 120 H (70-110) mg/dL POC Glucose (mg/dL) 135 H (75-99) mg/dL Total Bilirubin <0.15 L (0.30-1.20) mg/dL Total Protein 5.5 L (6.2-8.2) g/dL Albumin 3.5 L (3.8-4.9) g/dL 10/07/21 Range/Units 11:43 WBC (4.50-10.00) X 10*3/uL RBC (4.10-5.20) X 10*6/uL Hgb (12.0-15.0) g/dL Hct (37.2-46.3) % MCHC (32.0-37.0) g/dL Est GFR (CKD-EPI)NonAf (60.0-200.0) BUN/Creatinine Ratio (12.00-20.00) Ratio Glucose (70-110) mg/dL POC Glucose (mg/dL) 249 H (75-99) mg/dL Total Bilirubin (0.30-1.20) mg/dL Total Protein (6.2-8.2) g/dL Albumin (3.8-4.9) g/dL Assessment and Plan Plan: Bone mets Seen by oncology Bone scan pending MRI spine showed subacute L3 fx. No mets shown of MRI. L3 Fracture [place] prn PT Frequent falls PT Diabetes 2 Hold actos Continue insulin pump with SSI with bs checks every ac and hs. Hypothyroidism TSH high, increased levothyroxine to 200mcg daily. CAD recent [place] GERD/Reflux, Hyperlipidemia, Hypertension All stable resume meds
[2021-10-07 16:49] LABS: Glucose,Whole Blood 224 mg/dL (75-99)
[2021-10-07] MEDS: SODIUM CHLORIDE 0.9% 1,000 ML IV SCH (18:32)
[2021-10-07] MEDS: Insulin Aspart (For Pump) 100 UNIT/ML VIAL SQ-PUMP SCH (18:57)
[2021-10-07 20:31] LABS: Glucose,Whole Blood 148 mg/dL (75-99)
[2021-10-08 03:02] LABS: Glucose,Whole Blood 303 mg/dL (75-99)
[2021-10-08] MEDS ORDERED: ASPIRIN 81 MG ONE (08:00)
[2021-10-08] MEDS ORDERED: METOPROLOL SUCCINATE (ER) 25 MG TAB.ER.24H PO ONE (08:00)
[2021-10-08] MEDS ORDERED: CYANOCOBALAMIN 500 MCG TAB ONE (08:00)
[2021-10-08] MEDS ORDERED: VENLAFAXINE HCL 75 MG TAB ONE (08:00)
[2021-10-08] MEDS ORDERED: EZETIMIBE 10 MG TAB ONE (08:00)
[2021-10-08] MEDS ORDERED: lisinopriL 10 MG TAB ONE (08:00)
[2021-10-08] MEDS ORDERED: CHOLECALCIFEROL 10 MCG (400 IU) TABLET ONE (08:00)
[2021-10-08] MEDS ORDERED: CYCLOBENZAPRINE 10 MG TAB ONE (08:00)
[2021-10-08] MEDS ORDERED: PIOGLITAZONE 15 MG TAB ONE (08:00)
[2021-10-08] MEDS ORDERED: HYDROcodone/APAP 5-325MG 1 EACH TAB ONE (08:00)
[2021-10-08] MEDS ORDERED: LEVOTHYROXINE 100 MCG TAB ONE (08:00)
[2021-10-08] MEDS ORDERED: CLOPIDOGREL 75 MG TAB ONE (08:00)
[2021-10-08] MEDS ORDERED: LORATADINE 10 MG TAB ONE (08:00)
[2021-10-08] MEDS ORDERED: FERROUS SULFATE 325 MG TAB PO ONE (08:00)
[2021-10-08] MEDS ORDERED: ISOSORBIDE DINITRATE 10 MG TAB ONE (08:00)
[2021-10-08] MEDS ORDERED: PANTOPRAZOLE 40 MG TABLET PO ONE (08:00)
[2021-10-08] MEDS ORDERED: MAGNESIUM OXIDE 400 MG TAB ONE (08:00)
[2021-10-08 10:49] LABS: Glucose,Whole Blood 238 mg/dL (75-99)
[2021-10-08] MEDS: LEVOTHYROXINE 100 MCG TAB PO SCH (11:49)
[2021-10-08] MEDS: INSULIN PUMP MEAL BOLUS 1 UNIT MISC MISCELLANE SCH ×4 (11:50→21:33)
[2021-10-08] MEDS: VENLAFAXINE HCL ER 75 MG CAP PO SCH (11:52)
[2021-10-08] MEDS: PANTOPRAZOLE 40 MG TABLET PO SCH ×2 (11:52→17:35)
[2021-10-08] MEDS: CYANOCOBALAMIN 500 MCG TAB PO SCH (11:53)
[2021-10-08] MEDS: CHOLECALCIFEROL 10 MCG (400 IU) TABLET PO SCH (11:53)
[2021-10-08] MEDS: NON FORMULARY DRUG (Cariprazine Hcl [Vraylar] 1.5 MG Capsule) PO SCH (11:53)
[2021-10-08] MEDS: CLOPIDOGREL 75 MG TAB PO SCH (11:53)
[2021-10-08] MEDS: EZETIMIBE 10 MG TAB PO SCH (11:53)
[2021-10-08] MEDS: ASPIRIN 81 MG PO SCH (11:53)
[2021-10-08] MEDS: CYCLOBENZAPRINE 10 MG TAB PO SCH (11:53)
[2021-10-08] MEDS: LORATADINE 10 MG TAB PO SCH (11:54)
[2021-10-08] MEDS: METOPROLOL SUCCINATE (ER) 25 MG TAB.ER.24H PO SCH (11:54)
[2021-10-08] MEDS: lisinopriL 10 MG TAB PO SCH (11:54)
[2021-10-08] MEDS: FERROUS SULFATE 325 MG TAB PO SCH (11:54)
[2021-10-08] MEDS: ISOSORBIDE DINITRATE 10 MG TAB PO SCH ×2 (11:54→20:41)
[2021-10-08] MEDS: PIOGLITAZONE 15 MG TAB PO SCH (11:54)
[2021-10-08] MEDS: MAGNESIUM OXIDE 400 MG TAB PO SCH (11:54)
[2021-10-08 12:05] LABS: Glucose,Whole Blood 313 mg/dL (75-99)
--- NOTE | 2021-10-08 14:15 | NM ---
EXAMINATION TYPE: NM bone scan whole body DATE OF EXAM: 10/08/2021 COMPARISON: CT scan 10/05/2021 HISTORY: Pain Delayed whole-body scanning was performed following the injection of 24.0 mCi Tc 99m MDP. Images acq uired 3 hours post injection. FINDINGS: Intense abnormal uptake involving L3 compatible with recent or acute fracture as documented by recent CT scan. Moderate uptake seen throughout the thoracic and lumbar spine with curvature suggest degenerative richie nges. Areas of sclerosis in the upper thoracic segments are nonspecific. Abnormal uptake involving the anterior right rib cage appears to be related to previous fracture. Abnormal uptake involving the knees and shoulders likely post arthritic. IMPRESSION: 1. Intense abnormal uptake involving L3 corresponds to the acute fracture. Correlate for pathologic f racture. 2. Widely scattered areas of abnormal uptake throughout the thoracic and lumbar spine appears most li bettye degenerative. Correlate clinically. 3. Abnormal uptake involving the right rib cage appears to correspond to chronic rib deformities and CT scan and therefore most likely in the basis of remote fracture.
--- NOTE | 2021-10-08 15:26 | P.PN ---
Subjective Progress Note Date: 10/08/21 Hospital course: Patient is a very pleasant 61-year-old female with a past medical history of CAD with previous [place] and stent placement 2, hypertension, COPD, CVA/TIA with no reported deficits, obstructive sleep apnea, renal cell carcinoma with previous left partial nephrectomy, thyroidectomy, and insulin-dependent diabetes mellitus. She presented to the hospital on 10/05/21 secondary to right-sided rib pain and back pain. She underwent full evaluation and was admitted under our team with consultation to hematology/oncology secondary to concerns of suspicious bone lesions. CBC and CMP showing no significant abnormalities. TSH was 12.700 with normal free T4 of 1.340. EKG completed revealing sinus rhythm at 77 bpm with no noted T-wave or ST abnormalities. CT chest, abdomen, and pelvis without contrast concerning for possible metastatic bone disease. MRI lumbar spine and sacrum with and without contrast revealing compression fracture of L3 with enhancement and consistent with subacute fracture and degenerative first degree L4 through L5 spondylolisthesis. Plan is for patient to undergo bone scan later today. Physical exam: Patient seen and fully evaluated at bedside this morning. Patient reports continued right rib pain along with lower back pain. She denies having any headache, lightheadedness, dizziness, chest pain, palpitations, shortness of breath, cough, congestion, nausea, vomiting, or experiencing any numbness/tingling/weakness in her extremities. Patient scheduled to undergo bone scan later today. Vital signs reviewed and stable. General: Nontoxic, no distress and appears stated age. Derm: Skin warm and dry, normal coloration for ethnicity. Head: Atraumatic, normocephalic and symmetric. Eyes: EOMs intact, no lid lag, and anicteric sclera Mouth: no lip lesions, mucus membranes moist Cardiovascular: regular rate and rhythm with normal S1S2, no murmur, positive posterior tibial pulses bilaterally, and cap refill < 2 seconds. Lungs: Respirations even, regular, and unlabored on room air. Lungs CTA bilaterally, no rhonchi, no rales, no wheezing, and no accessory muscle usage. Abdominal: soft, nontender to palpation, no guarding, no appreciable organomegaly Ext: ROM intact. No gross muscle atrophy, no edema, no contractures Neuro: Speech clear, face symmetrical and CN II-XII grossly intact with no noted focal neuro deficits Psych: Alert and oriented to person, place, time, and situation. Appropriate and pleasant affect. Assessment and Plan of Care: Concerns for metastatic bone disease -Hematology/oncology following, patient undergo bone scan later today. Subacute L3 fracture -Patient following with orthospine surgery outpatient -Continue supportive care and pain management. -PT/OT to evaluate. Insulin-dependent diabetes mellitus -Hold Actos and continue with insulin pump and NovoLog sliding scale. Hypothyroidism secondary to history of thyroidectomy -Continue daily medication regimen with levothyroxine. Hypertension -Monitor vital signs and continue daily medication regimen CAD with previous [place] status post stents History of TIA/CVA -continue daily medication regimen with dual antiplatelet therapy with aspirin and Plavix CODE STATUS: Full code DVT prophylaxis: Heparin Discussed with: Patient and RN Anticipated discharge date: Clinical course to determine Anticipated discharge place: Home A total of 35 minutes was spent on the care of this complex patient more than 50% of the time was spent in counseling and care coordination. I reviewed the documentation as provided by the FUENTES above, who is the original author of this note. I agree with the documented assessment and plan, with the following changes: None Objective - Vital Signs Vital signs: Vital Signs Temp 97.8 F 10/08/21 14:56 Pulse 80 10/08/21 14:56 Resp 16 10/08/21 14:56 BP 124/77 10/08/21 14:56 Pulse Ox 97 10/08/21 14:56 Intake & Output 10/07/21 10/08/21 10/08/21 18:59 06:59 18:59 Intake Total 480 236 Balance 480 236 Intake: Oral 480 236 Other: # Voids 2 1 1 - Labs CBC & Chem 7: 10/07/21 06:37 10/07/21 06:37 Labs: Abnormal Lab Results - Last 24 Hours (Table) 10/07/21 10/07/21 10/08/21 Range/Units 16:47 20:30 03:00 POC Glucose (mg/dL) 224 H 148 H 303 H (75-99) mg/dL 10/08/21 10/08/21 Range/Units 07:28 12:04 POC Glucose (mg/dL) 238 H 313 H (75-99) mg/dL
[2021-10-08] MEDS: SODIUM CHLORIDE 0.9% 1,000 ML IV SCH (15:27)
[2021-10-08] MEDS: Insulin Aspart (For Pump) 100 UNIT/ML VIAL SQ-PUMP SCH (17:33)
[2021-10-08] MEDS: HYDROcodone/APAP 5-325MG 1 EACH TAB PO PRN (17:35)
[2021-10-08 17:54] LABS: Glucose,Whole Blood 261 mg/dL (75-99)
[2021-10-08 21:22] LABS: Glucose,Whole Blood 228 mg/dL (75-99)
[2021-10-08] MEDS: HEPARIN SODIUM,PORCINE/PF 5,000 UNIT/0.5 ML SYRINGE SQ SCH (23:54)
[2021-10-09 02:44] LABS: Glucose,Whole Blood 74 mg/dL (75-99)
[2021-10-09 04:10] LABS: Glucose,Whole Blood 153 mg/dL (75-99)
[2021-10-09] MEDS: LEVOTHYROXINE 100 MCG TAB PO SCH (05:49)
[2021-10-09 07:32] LABS: Glucose,Whole Blood 113 mg/dL (75-99)
[2021-10-09] MEDS: CYANOCOBALAMIN 500 MCG TAB PO SCH (08:12)
[2021-10-09] MEDS: PANTOPRAZOLE 40 MG TABLET PO SCH (08:12)
[2021-10-09] MEDS: EZETIMIBE 10 MG TAB PO SCH (08:12)
[2021-10-09] MEDS: CLOPIDOGREL 75 MG TAB PO SCH (08:12)
[2021-10-09] MEDS: HEPARIN SODIUM,PORCINE/PF 5,000 UNIT/0.5 ML SYRINGE SQ SCH (08:12)
[2021-10-09] MEDS: LORATADINE 10 MG TAB PO SCH (08:12)
[2021-10-09] MEDS: lisinopriL 10 MG TAB PO SCH (08:12)
[2021-10-09] MEDS: METOPROLOL SUCCINATE (ER) 25 MG TAB.ER.24H PO SCH (08:13)
[2021-10-09] MEDS: PIOGLITAZONE 15 MG TAB PO SCH (08:13)
[2021-10-09] MEDS: MAGNESIUM OXIDE 400 MG TAB PO SCH (08:13)
[2021-10-09] MEDS: FERROUS SULFATE 325 MG TAB PO SCH (08:13)
[2021-10-09] MEDS: ISOSORBIDE DINITRATE 10 MG TAB PO SCH (08:13)
[2021-10-09] MEDS: VENLAFAXINE HCL ER 75 MG CAP PO SCH (08:13)
[2021-10-09] MEDS: CYCLOBENZAPRINE 10 MG TAB PO SCH (08:13)
[2021-10-09] MEDS: ASPIRIN 81 MG PO SCH (08:13)
[2021-10-09] MEDS: INSULIN PUMP MEAL BOLUS 1 UNIT MISC MISCELLANE SCH (08:13)
[2021-10-09] MEDS: CHOLECALCIFEROL 10 MCG (400 IU) TABLET PO SCH (08:14)
[2021-10-09] MEDS: NON FORMULARY DRUG (Cariprazine Hcl [Vraylar] 1.5 MG Capsule) PO SCH (08:14)
[2021-10-09] MEDS: HYDROcodone/APAP 5-325MG 1 EACH TAB PO PRN (09:36)
--- NOTE | 2021-10-09 10:14 | P.PN ---
Subjective Progress Note Date: 10/09/21 Hospital course: Patient is a very pleasant 61-year-old female with a past medical history of CAD with previous DE and stent placement 2, hypertension, COPD, CVA/TIA with no reported deficits, obstructive sleep apnea, renal cell carcinoma with previous left partial nephrectomy, thyroidectomy, and insulin-dependent diabetes mellitus. She presented to the hospital on 10/05/21 secondary to right-sided rib pain and back pain. She underwent full evaluation and was admitted under our team with consultation to hematology/oncology secondary to concerns of suspicious bone lesions. CBC and CMP showing no significant abnormalities. TSH was 12.700 with normal free T4 of 1.340. EKG completed revealing sinus rhythm at 77 bpm with no noted T-wave or ST abnormalities. CT chest, abdomen, and pelvis without contrast concerning for possible metastatic bone disease. MRI lumbar spine and sacrum with and without contrast revealing compression fracture of L3 with enhancement and consistent with subacute fracture and degenerative first degree L4 through L5 spondylolisthesis. Plan is for patient to undergo bone scan later today. 10/09: Bone scan was completed yesterday which revealed intense abnormal uptake involving the L3 corresponds to the acute fracture. Correlate for pathologic fracture. Widely scattered areas of abnormal uptake throughout the thoracic and lumbar spine appears most likely degenerative. Correlate clinically. Abnormal uptake involving the right rib cage appears to correspond to chronic rib deformities and CAT scan and therefore most likely in the bases of remote fracture. Patient has been seen by Dr. Eldridge in she states that he was to perform surgery but her insurance denied the surgery. She continues to complain of low back pain that does not seem to be better since admission. We will add in consult for Dr. Eldridge Patient has been afebrile, heart rate in the 80s, blood pressure 114/56, pulse ox 95% on room air. Capillary blood glucose running 74-228. Physical Examination Gen: This is a 61-year-old female. Patient is resting in bed and appears to be comfortable. HEENT: Head is atraumatic, normocephalic. Pupils equal, round. Sclerae is anicteric. NECK: Supple. No JVD. No lymphadenopathy. No thyromegaly. LUNGS: Clear to auscultation. No wheezes or rhonchi. No intercostal retractions. HEART: Regular rate and rhythm. No murmur. ABDOMEN: Soft. Bowel sounds are present. No masses. No tenderness. EXTREMITIES: No pedal edema. No calf tenderness. NEUROLOGICAL: Patient is awake, alert and oriented x3. Cranial nerves 2 through 12 are grossly intact. Assessment and Plan of Care: Concerns for metastatic bone disease -Hematology/oncology following, bone scan as above. Subacute L3 pathologic fracture -Patient following with orthospine surgery outpatient, consult with Dr. Eldridge -Continue supportive care and pain management. -PT/OT to evaluate. Insulin-dependent diabetes mellitus -Continue Actos 15 mg daily and continue with insulin pump and NovoLog sliding scale. Hypothyroidism secondary to history of thyroidectomy -Continue levothyroxine 200 mg daily. Hypertension -Monitor vital signs and continue daily medication regimen including lisinopril 10 mg daily, Toprol-XL 25 mg daily CAD with previous DE status post stents History of TIA/CVA -Continue aspirin 81 mg daily, Plavix 75 mg daily, Imdur 10 mg twice daily, Toprol-XL 25 mg daily. CODE STATUS: Full code DVT prophylaxis: Heparin DISCHARGE PLAN Home Impression and plan of care have been directed as dictated by the signing physician. Hayley Ferrari nurse practitioner acting as scribe for signing physician. Objective - Vital Signs Vital signs: Vital Signs Temp 98.3 F 10/09/21 07:15 Pulse 87 10/09/21 07:15 Resp 14 10/09/21 07:15 BP 114/66 10/09/21 07:15 Pulse Ox 95 10/09/21 07:15 Intake & Output 10/08/21 10/09/21 10/09/21 18:59 06:59 18:59 Intake Total 596 240 Balance 596 240 Intake: Oral 596 240 Other: Voiding Method Toilet # Voids 1 1 - Labs CBC & Chem 7: 10/07/21 06:37 10/07/21 06:37 Labs: Abnormal Lab Results - Last 24 Hours (Table) 10/08/21 10/08/21 10/08/21 Range/Units 07:28 12:04 17:53 POC Glucose (mg/dL) 238 H 313 H 261 H (75-99) mg/dL 10/08/21 10/09/21 10/09/21 Range/Units 21:21 02:43 04:08 POC Glucose (mg/dL) 228 H 74 L 153 H (75-99) mg/dL 10/09/21 Range/Units 07:31 POC Glucose (mg/dL) 113 H (75-99) mg/dL
--- NOTE | 2021-10-09 11:04 | P.CNOR ---
History of Present Illness - [facility] Consult date: 10/09/21 Consult reason: low back pain History of present illness: History of Presenting Illness Patient is a pleasant 61-year-old female who presented to the ER for low back pain. Patient is known to our office following an L3 compression fracture s/p fall in hospital restroom approximately 6 weeks ago post stent placement. At that time a LSO brace was ordered for her to wear when ambulating or sitting up in chair. Patient states she has returned to the hospital due to an increase in pain in her lower back and right rib pain. Upon entering the room patient was standing at window without her brace present. Patient states she does not like to wear it. She denies any numbness or tingling to her perineal area. No loss of bowel or bladder. She does have c/o slight numbness that radiates down her right lower extremity. Patient is ambulating independently in room without difficulty. No surgical intervention at this time is warranted. May discharge from orthopedic standpoint. Review of Systems Pertinent postivites and negatives as dicussed in [facility], a complete review of systems was performed and all other sysytems are negative. Physical Examination General: The patient is awake and alert, in no acute distress Skin: Skin is warm and dry with no obvious rashes or lesions. Hairy patches absent, no dorsal skin dimples, no cafe au lait spots, and no surgical incisions. Eye: Pupils are equal, round and reactive to light, extra-ocular movements are intact; there is normal conjunctiva bilaterally. Neck: The neck is supple, there is no tenderness and ROM intact. Cardiovascular: There is a regular rate and rhythm. No murmur, rub or gallop is appreciated. Respiratory: Lungs are clear to auscultation, respirations are non-labored, breath sounds are equal. Gastrointestinal: Soft, non-distended, non-tender abdomen. Back: There is no tenderness to palpation in the midline, paralumbar, parathoracic or buttocks region. There is no obvious deformity. Musculoskeletal: ROM limited secondary to pain. Shoulder abduction 5/5, elbow flexors 5/5, wrist dorsiflexors 5/5. finger abductor 5/5, energy technician 5/5, hip flexor 5/5, knee flexor 5/5, ankle dorsiflexor 5/5, ankle plantarflexion 5/5 and extensor hallucis 5/5. Neurological: CN 2-12 intact. There are no obvious motor or sensory deficits. Movement and coordination equal and intact. Sensory exam to light touch intact C5-T1 and intact from L2-S1. Reflexes 2/4 in bilateral upper and lower extremities. Negative Hoffmans, babinski, and clonus signs. Psychiatric: Cooperative, appropriate mood & affect, normal judgment. Assessment and Plan 1. L3 A2 split fracture 2. Right lower radiculopathy -Continue wearing LSO brace with activity. -Continue with pain medication -Progress with home exercise and health maintenance programs. -No surgical intervention at this time. I reviewed and discussed this case with my attending Dr. Eldridge, whom has reviewed this chart and films and is in agreement with assessment and plan of care as outlined above. I have personally seen and examined the patient, performed the documentation and the assessment and plan as written. Number of minutes spent on the visit: 20 minutes. Past Medical History Past Medical History: Coronary Artery Disease (CAD), Cancer, COPD, CVA/TIA, Diabetes Mellitus, Deep Vein Thrombosis (DVT), Eye Disorder, GERD/Reflux, Hyperlipidemia, Hypertension, Myocardial Infarction (LA), Renal Disease, Rheumatoid Arthritis (RA), Sleep Apnea/CPAP/BIPAP, Syncope, Thyroid Disorder Additional Past Medical History / Comment(s): 09/16/16 with SBO with surgery/possible septic emboli with cavitary lesions bilateral lungs. 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 coli 2015 requiring PICC line insertion for IV antibiotics, restless leg syndrome, peripheral neropathy. Hx bilateral glaucoma, hx syncope r/t low blood sugars. No CPAP use. pt states had high blood sugar 1 week ago and was seen an [facility]. Last Myocardial Infarction Date:: 2019 History of Any Multi-Drug Resistant Organisms: ESBL, MRSA, VRE Year Discovered:: 05/07/16 ESBL, 05/15/16 VRE, MRSA 09/2017 - upper lip MDRO Source:: URINE E.COLI, EC GALLINARUM Past Surgical History: Appendectomy, Bowel Resection, Section, Heart Catheterization, Heart Catheterization With Stent, Hernia Repair Additional Past Surgical History / Comment(s): 09/30 exploratory laparotomy with lysis of adhesions, bowel resection d/t obstruction. repair incarcerated incisional hernia with abdominal washout, thyroidectomy(non functioning), heart cath 06/28 - 100% occluded, unable to stent, partial left nephrectomy for left kidney renal cell carcinoma, PICC line insertion (since removed), colonoscopy, bilateral cataract removal with lens implants, 2 Sections. cardiac Stent 03/2021 Past Anesthesia/Blood Transfusion Reactions: No Reported Reaction Date of Last Stent Placement:: 04/06/2021 Past Psychological History: Depression Additional Psychological History / Comment(s): . Smoking Status: Former smoker Past Alcohol Use History: None Reported Additional Past Alcohol Use History / Comment(s): STARTED SMOKING AT AGE 8, smoked one to one and half packs per day for 50 years. quit smoking 2 months ago Past Drug Use History: Marijuana Additional Drug Use History / Comment(s): USES MARIJUANA daily , Hx of addiction to cocaine, has not used in 20 yrs. - Past Family History Sister(s) Family Medical History: Cancer, Deep Vein Thrombosis (DVT) Additional Family Medical History / Comment(s): Patient has one sister that from liver cancer Brother(s) Family Medical History: Cancer, Deep Vein Thrombosis (DVT) Additional Family Medical History / Comment(s): Patient has 1 brother with past ETOH, past drug abuse, DVT's. She has a second brother that has from throat cancer. Daughter(s) Family Medical History: Diabetes Mellitus, Myocardial Infarction (LA) Additional Family Medical History / Comment(s): Daughter at 23 yrs old from massive LA. Father Family Medical History: Myocardial Infarction (LA) Additional Family Medical History / Comment(s): from mi at age 44 Mother Family Medical History: Cancer Additional Family Medical History / Comment(s): maeve breasts rcancer Medications and Allergies Home Medications Medication Instructions Recorded Confirmed Type Venlafaxine HCl [Venlafaxine HCl 225 mg PO AC-BRKFST 10/21/16 10/05/21 History ER] Loratadine [Claritin] 10 mg PO DAILY 03/29/19 10/05/21 History Aspirin 81 mg PO DAILY 12/23/19 10/05/21 History Pioglitazone [Actos] 15 mg PO DAILY 12/23/19 10/05/21 History Pantoprazole Sodium [Protonix] 40 mg PO BID 04/06/20 10/05/21 History Cariprazine HCl [Vraylar] 1.5 mg PO DAILY 05/13/20 10/05/21 History Insulin Aspart (For Pump) [NovoLOG 0.01 unit SQ-PUMP CONTINUOUS 10/08/20 10/05/21 History (For Pump)] Isosorbide Dinitrate [Isordil] 10 mg PO BID 10/31/20 10/05/21 History Ezetimibe [Zetia] 10 mg PO DAILY 01/16/21 10/05/21 History Meclizine [Antivert] 25 mg PO TID PRN 01/16/21 10/05/21 History Nitroglycerin Sl Tabs [Nitrostat] 0.4 mg SUBLINGUAL Q5M PRN 02/27/21 10/05/21 History Clopidogrel [Plavix] 75 mg PO DAILY #90 tab 08/13/21 10/05/21 Rx Cholecalciferol [Vitamin D3 (10 10 mcg PO DAILY 10/02/21 10/05/21 History Mcg = 400 Iu)] Cyanocobalamin [Vitamin B-12] 500 mcg PO DAILY 10/02/21 10/05/21 History Ferrous Sulfate [Feosol] 325 mg PO DAILY 10/02/21 10/05/21 History Cyclobenzaprine [Flexeril] 10 mg PO DAILY 10/05/21 10/05/21 History Diclofenac Sodium Gel [Voltaren 4 gm TOPICAL TID 10/05/21 10/05/21 History Gel] Levothyroxine Sodium [Synthroid] 175 mcg PO DAILY 10/05/21 10/05/21 History Magnesium 200 mg PO DAILY 10/05/21 10/05/21 History Metoprolol Succinate (ER) [Toprol 25 mg PO DAILY 10/05/21 10/05/21 History Xl] lisinopriL [Zestril] 10 mg PO DAILY 10/05/21 10/05/21 History Allergies Allergy/AdvReac Type Severity Reaction Status Date / Time grass pollen Allergy Unknown Verified 10/05/21 15:31 latex Allergy Rash/Hives Verified 10/05/21 15:31 Sulfa (Sulfonamide Allergy Rash/Hives/ Verified 10/05/21 15:31 Antibiotics) Swelling venom-honey bee Allergy Anaphylaxis Verified 10/05/21 15:31 morphine AdvReac Decreased Verified 10/05/21 15:31 Blood Pressure prochlorperazine edisylate AdvReac Vomiting Verified 10/05/21 15:31 [From Compazine] Results - Labs Labs: Abnormal Lab Results - Last 24 Hours (Table) 10/08/21 10/08/21 10/08/21 Range/Units 07:28 12:04 17:53 POC Glucose (mg/dL) 238 H 313 H 261 H (75-99) mg/dL 10/08/21 10/09/21 10/09/21 Range/Units 21:21 02:43 04:08 POC Glucose (mg/dL) 228 H 74 L 153 H (75-99) mg/dL 10/09/21 Range/Units 07:31 POC Glucose (mg/dL) 113 H (75-99) mg/dL H & H 10/05/21 10/07/21 Range/Units 13:35 06:37 Hgb 11.1 L 10.0 L (11.4-16.0) gm/dL Hct 34.5 32.4 L (34.0-46.0) % Result Diagrams: 10/07/21 06:37 10/07/21 06:37
--- NOTE | 2021-10-09 11:32 | P.PN ---
Subjective Progress Note Date: 10/09/21 Principal diagnosis: suspicious lumbar spine lesion, history of RCC In follow-up today patient has no new complaints, pain is currently controlled. Objective - Vital Signs Vital signs: Vital Signs Temp 98.3 F 10/09/21 07:15 Pulse 87 10/09/21 07:15 Resp 14 10/09/21 07:15 BP 114/66 10/09/21 07:15 Pulse Ox 95 10/09/21 07:15 Intake & Output 10/08/21 10/09/21 10/09/21 18:59 06:59 18:59 Intake Total 596 240 358 Balance 596 240 358 Intake: Oral 596 240 358 Other: Voiding Method Toilet # Voids 1 1 - Constitutional General appearance: Present: average body habitus, no acute distress - EENT Eyes: Present: anicteric sclerae ENT: Present: hearing grossly normal - Respiratory Details: Respirations even and unlabored at rest - Musculoskeletal Musculoskeletal: Present: strength equal bilaterally - Psychiatric Psychiatric: Present: A&O x's 3, appropriate affect, intact judgment & insight - Labs CBC & Chem 7: 10/07/21 06:37 10/07/21 06:37 Labs: Abnormal Lab Results - Last 24 Hours (Table) 10/08/21 10/08/21 10/08/21 Range/Units 12:04 17:53 21:21 POC Glucose (mg/dL) 313 H 261 H 228 H (75-99) mg/dL 10/09/21 10/09/21 10/09/21 Range/Units 02:43 04:08 07:31 POC Glucose (mg/dL) 74 L 153 H 113 H (75-99) mg/dL - Imaging and Cardiology nuclear medicine bone scan report reviewed Lumbar spine MRI report reviewed Assessment and Plan (1) Abnormal CT of spine Current Visit: Yes Status: Acute Priority: High Code(s): R93.7 - ABNORMAL FINDINGS ON DIAGNOSTIC IMAGING OF PRT MS SYS SNOMED Code(s): 209381649 (2) History of kidney cancer Current Visit: No Status: Chronic Priority: Medium Code(s): Z85.528 - PERSONAL HISTORY OF OTHER MALIGNANT NEOPLASM OF KIDNEY SNOMED Code(s): 721061810 Plan: Nuclear medicine bone scan report reviewed, no evidence of malignant findings. Pending Orthopedic Spine Surgeon review of the case. Would request biopsy if an orthopedic procedure, such as kyphoplasty or other, is performed. In regards to patient's history of RCC recommendation is for the patient to follow with her Primary Oncologist and continue follow-up for the same. Doctor attests: I performed a history and physical examination of this patient, developed impression and plan of care, discussed with dictator. I agree with dictators note, documented as a scribe.
[2021-10-09 11:42] LABS: Glucose,Whole Blood 269 mg/dL (75-99)
--- NOTE | 2021-10-09 11:52 | P.DS ---
Providers Date of admission: 10/05/21 17:49 Expected date of discharge: 10/09/21 Attending physician: Gage Sy Consults: 10/05/21 14:19 Consult Physician Routine Consulting Provider: Pedro Bryan Consult Reason/Comments: bone lesions suspicious Do you want consulting provider notified?: Yes 10/09/21 09:37 Consult Physician Routine Consulting Provider: Tho Eldridge Consult Reason/Comments: fracture l3 Do you want consulting provider notified?: Yes Primary care physician: Sahra Elder Hospital Course: Patient is a very pleasant 61-year-old female with a past medical history of CAD with previous AR and stent placement 2, hypertension, COPD, CVA/TIA with no reported deficits, obstructive sleep apnea, renal cell carcinoma with previous left partial nephrectomy, thyroidectomy, and insulin-dependent diabetes mellitus. She presented to the hospital on 10/05/21 secondary to right-sided rib pain and back pain. She underwent full evaluation and was admitted under our team with consultation to hematology/oncology secondary to concerns of suspicious bone lesions. CBC and CMP showing no significant abnormalities. TSH was 12.700 with normal free T4 of 1.340. EKG completed revealing sinus rhythm at 77 bpm with no noted T-wave or ST abnormalities. CT chest, abdomen, and pelvis without contrast concerning for possible metastatic bone disease. MRI lumbar spine and sacrum with and without contrast revealing compression fracture of L3 with enhancement and consistent with subacute fracture and degenerative first degree L4 through L5 spondylolisthesis. Plan is for patient to undergo bone scan later today. 10/09: Bone scan was completed yesterday which revealed intense abnormal uptake involving the L3 corresponds to the acute fracture. Correlate for pathologic fracture. Widely scattered areas of abnormal uptake throughout the thoracic and lumbar spine appears most likely degenerative. Correlate clinically. Abnormal uptake involving the right rib cage appears to correspond to chronic rib deformities and CAT scan and therefore most likely in the bases of remote fracture. Patient has been seen by Dr. Eldridge in she states that he was to perform surgery but her insurance denied the surgery. She continues to complain of low back pain that does not seem to be better since admission. We will add in consult for Dr. Eldridge Patient has been afebrile, heart rate in the 80s, blood pressure 114/56, pulse ox 95% on room air. Capillary blood glucose running 74-228. Patient was seen by orthopedics and oncology and cleared for discharge. Patient be discharged home today in stable condition. DISCHARGE DIAGNOSES Concerns for metastatic bone disease, not completely ruled out Subacute L3 pathologic fracture Diabetes mellitus type 2 insulin requiring Hypothyroidism secondary to history of thyroidectomy Hypertension CAD with previous AR status post stents History of TIA/CVA DISCHARGE PLAN Home Greater than 35 minutes was utilized and coordinating patient's discharge. Impression and plan of care have been directed as dictated by the signing physician. Hayley Ferrari nurse practitioner acting as scribe for signing physician. Patient Condition at Discharge: Fair Plan - Discharge Summary Discharge Rx Participant: No New Discharge Prescriptions: Continue Venlafaxine HCl [Venlafaxine HCl ER] 225 mg PO AC-BRKFST Loratadine [Claritin] 10 mg PO DAILY Pioglitazone [Actos] 15 mg PO DAILY Aspirin 81 mg PO DAILY Pantoprazole Sodium [Protonix] 40 mg PO BID Cariprazine HCl [Vraylar] 1.5 mg PO DAILY Insulin Aspart (For Pump) [NovoLOG (For Pump)] 0.01 unit SQ-PUMP CONTINUOUS Isosorbide Dinitrate [Isordil] 10 mg PO BID Meclizine [Antivert] 25 mg PO TID PRN PRN Reason: DIZZINESS Ezetimibe [Zetia] 10 mg PO DAILY Clopidogrel [Plavix] 75 mg PO DAILY #90 tab Cholecalciferol [Vitamin D3 (10 Mcg = 400 Iu)] 10 mcg PO DAILY Cyclobenzaprine [Flexeril] 10 mg PO DAILY Levothyroxine Sodium [Synthroid] 175 mcg PO DAILY Metoprolol Succinate (ER) [Toprol XL] 25 mg PO DAILY Nitroglycerin Sl Tabs [Nitrostat] 0.4 mg SUBLINGUAL Q5M PRN PRN Reason: Chest Pain Ferrous Sulfate [Iron (65 MG Elemental)] 325 mg PO DAILY Cyanocobalamin [Vitamin B-12] 500 mcg PO DAILY Diclofenac Sodium Gel [Voltaren Gel] 4 gm TOPICAL TID lisinopriL [Zestril] 10 mg PO DAILY Magnesium 200 mg PO DAILY Discharge Medication List Venlafaxine HCl [Venlafaxine HCl ER] 225 mg PO AC-BRKFST 10/21/16 [History] Loratadine [Claritin] 10 mg PO DAILY 03/29/19 [History] Aspirin 81 mg PO DAILY 12/23/19 [History] Pioglitazone [Actos] 15 mg PO DAILY 12/23/19 [History] Pantoprazole Sodium [Protonix] 40 mg PO BID 04/06/20 [History] Cariprazine HCl [Vraylar] 1.5 mg PO DAILY 05/13/20 [History] Insulin Aspart (For Pump) [NovoLOG (For Pump)] 0.01 unit SQ-PUMP CONTINUOUS 10/08/20 [History] Isosorbide Dinitrate [Isordil] 10 mg PO BID 10/31/20 [History] Ezetimibe [Zetia] 10 mg PO DAILY 01/16/21 [History] Meclizine [Antivert] 25 mg PO TID PRN 01/16/21 [History] Nitroglycerin Sl Tabs [Nitrostat] 0.4 mg SUBLINGUAL Q5M PRN 02/27/21 [History] Clopidogrel [Plavix] 75 mg PO DAILY #90 tab 08/13/21 [Rx] Cholecalciferol [Vitamin D3 (10 Mcg = 400 Iu)] 10 mcg PO DAILY 10/02/21 [History] Cyanocobalamin [Vitamin B-12] 500 mcg PO DAILY 10/02/21 [History] Ferrous Sulfate [Iron (65 MG Elemental)] 325 mg PO DAILY 10/02/21 [History] Cyclobenzaprine [Flexeril] 10 mg PO DAILY 10/05/21 [History] Diclofenac Sodium Gel [Voltaren Gel] 4 gm TOPICAL TID 10/05/21 [History] Levothyroxine Sodium [Synthroid] 175 mcg PO DAILY 10/05/21 [History] Magnesium 200 mg PO DAILY 10/05/21 [History] Metoprolol Succinate (ER) [Toprol XL] 25 mg PO DAILY 10/05/21 [History] lisinopriL [Zestril] 10 mg PO DAILY 10/05/21 [History] Follow up Appointment(s)/Referral(s): Sahra Elder MD [Primary Care Provider] - 1 Week (Review TSH/FT4 ) Discharge Disposition: HOME SELF-CARE
[2021-10-09 13:33] VITALS: BP 107/71; PULSE 86; RESP 15; TEMP 98.6
--- NOTE | 2021-10-12 11:24 | CDI ---
Documentation Clarification Form Date: 10/12/2021 11:11:00 AM From: Steph Priest Admit Date: 10/05/2021 05:49:00 PM Patient Name: Lala Kenyon Visit Number: [id number] Discharge Date: 10/09/2021 02:06:00 PM ATTENTION: The Clinical Documentation Specialists (CDI) and [facility] Coding Staff appreciate your assistance in clarifying documentation. Please respond to the clarification below the line at the bottom and electronically sign. The CDI & [facility] Coding staff will review the response and follow-up if needed. Please note: Queries are made part of the Legal Health Record. If you have any questions, please contact the author of this message via ITS. Dr. Rambo Moulton There is documentation of DKA in oncology consult on 10/05/21. No further documentation of DKA. Additional clarification is requested whether patient had DKA or was DKA ruled out. History/Risk Factors: Patient has DM hyper and hypoglycemia. Patient has an insulin pump. Clinical Indicators: patients glucose level on 10/06/21 was 400 Treatment: Patient is on insulin, has insulin pump, and antidiabetic medication Can you please clarify whether patient had DKA, was it ruled out? If patient did have DKA, was it POA or not? [ ] DKA - POA [ ] DKA - Not POA [ ] DKA ruled out [ ] Other, please specify [ ] Unable to determine DKA ruled out MTDD
== END 2021-10-09 14:06 | disposition home or self-care (01) | DRG 543 ==
LOC: EC 10:49 → 6NMEDSUR 14:18 → OBSVTOIN 17:49
PROVIDERS: ADMIT Internal Medicine Geriatric Medicine; ATTEND Internal Medicine Geriatric Medicine
DX: M48.56XA Collapsed vertebra, not elsewhere classified, lumbar region, initial encounter for fracture (principal); C79.51 Secondary malignant neoplasm of bone; M51.16 Intervertebral disc disorders with radiculopathy, lumbar region; M51.34 Other intervertebral disc degeneration, thoracic region; M43.16 Spondylolisthesis, lumbar region; E11.649 Type 2 diabetes mellitus with hypoglycemia without coma; E11.65 Type 2 diabetes mellitus with hyperglycemia; E11.42 Type 2 diabetes mellitus with diabetic polyneuropathy; E89.0 Postprocedural hypothyroidism; R29.6 Repeated falls; E86.0 Dehydration; F32.A Depression, unspecified; G25.81 Restless legs syndrome; J44.9 Chronic obstructive pulmonary disease, unspecified; M06.9 Rheumatoid arthritis, unspecified; I10 Essential (primary) hypertension; E78.5 Hyperlipidemia, unspecified; I25.10 Atherosclerotic heart disease of native coronary artery without angina pectoris; K21.9 Gastro-esophageal reflux disease without esophagitis; G47.33 Obstructive sleep apnea (adult) (pediatric); F14.21 Cocaine dependence, in remission; Z96.41 Presence of insulin pump (external) (internal); Z28.310 Unvaccinated for COVID-19; Z79.02 Long term (current) use of antithrombotics/antiplatelets; Z79.4 Long term (current) use of insulin; Z79.82 Long term (current) use of aspirin; Z79.84 Long term (current) use of oral hypoglycemic drugs; Z79.890 Hormone replacement therapy; Z79.899 Other long term (current) drug therapy; I25.2 Old myocardial infarction; Z86.14 Personal history of Methicillin resistant Staphylococcus aureus infection; Z86.73 Personal history of transient ischemic attack (TIA), and cerebral infarction without residual deficits; Z87.891 Personal history of nicotine dependence; Z90.5 Acquired absence of kidney; Z95.5 Presence of coronary angioplasty implant and graft; Z85.528 Personal history of other malignant neoplasm of kidney; Z85.05 Personal history of malignant neoplasm of liver; Z91.030 Bee allergy status; Z91.040 Latex allergy status; Z88.5 Allergy status to narcotic agent; Z88.2 Allergy status to sulfonamides; Z88.8 Allergy status to other drugs, medicaments and biological substances; Z91.048 Other nonmedicinal substance allergy status; Z91.81 History of falling; Z86.718 Personal history of other venous thrombosis and embolism; Z86.711 Personal history of pulmonary embolism; Z98.890 Other specified postprocedural states; Z90.49 Acquired absence of other specified parts of digestive tract; Z90.89 Acquired absence of other organs; Z86.19 Personal history of other infectious and parasitic diseases; Z87.440 Personal history of urinary (tract) infections; Z86.69 Personal history of other diseases of the nervous system and sense organs; Z98.42 Cataract extraction status, left eye; Z98.41 Cataract extraction status, right eye; Z96.1 Presence of intraocular lens; Z80.0 Family history of malignant neoplasm of digestive organs; Z80.1 Family history of malignant neoplasm of trachea, bronchus and lung; Z83.3 Family history of diabetes mellitus; Z82.49 Family history of ischemic heart disease and other diseases of the circulatory system; Z83.2 Family history of diseases of the blood and blood-forming organs and certain disorders involving the immune mechanism; Z81.3 Family history of other psychoactive substance abuse and dependence; Z80.3 Family history of malignant neoplasm of breast; Z82.41 Family history of sudden cardiac death; Z81.1 Family history of alcohol abuse and dependence
CPT/HCPCS: 36415; 71250; 72158; 72197; 74176; 78306; 80048; 80053; 82306; 83735; 84075; 84439; 84443; 85025; 93005; 99285

== ENCOUNTER → 2021-10-05 | Day surgery (SDC) | payer OTHER ==
[2021-10-02 14:31] VITALS: BMI 25.3
[~2021-10-05] MED LIST changes: +ACETAMINOPHEN TAB 500 MG TAB PO PRN; -DEXAMETHASONE SOD PHOSPHATE 10 MG/ML 1 ML VIAL IV ONE; +DEXAMETHASONE SOD PHOSPHATE 4 MG/ML 1 ML VIAL IV ONE; +GABAPENTIN 300 MG CAP PO PRN; +HYDROmorphone 0.5 MG/0.5 ML SYRINGE IVP PRN; -MIDAZOLAM 2 MG/2 ML VIAL IV PRN; +ONDANSETRON 4 MG/2 ML VIAL IVP PRN; -SCOPOLAMINE 1.5MG/72HR PATCH TRANSDERM ONE; +TRANEXAMIC ACID IN NACL,ISO-OS 1,000 MG in SALINE 1 100ML.BAG IVPB PRN; -ceFAZolin IN SWFI 2 GM/20 ML SYRINGE IVP ONE; -fentaNYL (PF) 50 MCG/ML 2 ML AMP IV PRN
--- NOTE | 2021-10-05 09:43 | P.HPOR ---
History of Present Illness H&P Date: 09/26/21 Chief Complaint: Back pain, severe debility, fracture .T:Title: [facility] Date of :[birth year] Age: 61 year Height: 5'3" Weight: 143 lbs BMI: 25.33 kg/m2 Occupation: N/A VAS: 10 CHIEF COMPLAINT: L3 fx HISTORY: Xrays brought xrays from outside facility which were reviewed New xrays taken in office Trauma or injury yes Work-Related No Pain description .Sharp, burning Location Posterior, diffuse Activity Modification Yes, unable to stand or ambulate for extended periods of time. Hand Dominance Right TREATMENTS COMPLETED: 6 weeks of PT completed? Month and Year of last PT date? No Physician directed home exercise completed? Yes, has trialed but could not complete as it exacerbates her symptoms. Medications List: Gabapentin 300mg without relief. Pt does take ASA, Plavix 75mg, Nitroglycerin Alternative interventions Chiropractic:None Massage therapy:None R.I.C.E: None Brace: Pt is wearing a TLSO brace which has helped with stability and gait Injections No prior injections. RFA: None SUBJECTIVE: Today Ms. Kenyon presents to the office for her lumbar spine. To review, the patient reports sustaining a fall in the hospital bathroom 5 weeks ago after having a stent implanted. During her fall, she landed on her back and right side. Following this incident she reports having a sharp increase in lumbar pain and radicular symptoms. Patient denies any back pain or radicular symptomology prior to her fall in the hospital. Since her fall she reports sharp, posterior lumbar pain radiating into the right lower extremity diffusely. With the pain she does also report diffuse numbness and tingling down the right lower extremity. Overall these symptoms are exacerbated with most activities but high impact movements like trying to walk up and down stairs make her symptoms acute. She notes that she is unable to complete most of her daily tasks due to the severity of her pain. As for treatments, she has been wearing a brace since the fall with some improvements to her stability and gait. Aside from this she has tried some light home exercises, which she had to discontinue as it exacerbated her pain. Otherwise she denies completing any other modalities since the fall. Patient denies any bladder or bowel retention/incontinence, no perineal numbness/tingling, and ambulates independently but does wear her brace to her visit today. Of note, she is a insulin dependent diabetic and has a history of heart disease and stent implantation. The patients' past social, medical, family, surgical history, as well as review of systems, have been reviewed. Please refer to the Neurosurgery History and Physical form that has been scanned in to our electronic medical record system. 14 points review of systems completed and as stated in HPI, all other systems reviewed are negative. Social History: Reviewed, see appropriate section of the chart for details. P3 Social History: Smoking: current smoker P3 Alcohol: none P3 Family History: Reviewed, see appropriate section of the chart for details. P2 Social History: Reviewed, see appropriate section of the chart for details. Past Medical History: Reviewed, see appropriate section of the chart for details. Pt did not bring list. Review of Systems 14 points review of systems completed and as stated in HPI, all other systems reviewed are negative. Past Medical History Past Medical History: Coronary Artery Disease (CAD), Cancer, COPD, CVA/TIA, Diabetes Mellitus, Deep Vein Thrombosis (DVT), Eye Disorder, GERD/Reflux, Hyperlipidemia, Hypertension, Myocardial Infarction (DE), Renal Disease, Rheumatoid Arthritis (RA), Sleep Apnea/CPAP/BIPAP, Syncope, Thyroid Disorder Additional Past Medical History / Comment(s): 09/16/16 with SBO with surgery/possible septic emboli with cavitary lesions bilateral lungs. 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 coli Nov2015 requiring PICC line insertion for IV antibiotics, restless leg syndrome, peripheral neropathy. Hx bilateral glaucoma, hx syncope r/t low blood sugars. No CPAP use. pt states had high blood sugar 1 week ago and was seen an [facility]. Last Myocardial Infarction Date:: 2019 History of Any Multi-Drug Resistant Organisms: ESBL, MRSA, VRE Date of last positivie culture/infection: 05/07/16 ESBL, 05/15/16 VRE, MRSA 09/2017 - upper lip MDRO Source:: URINE E.COLI, EC GALLINARUM Past Surgical History: Appendectomy, Bowel Resection, Section, Heart Catheterization, Heart Catheterization With Stent, Hernia Repair Additional Past Surgical History / Comment(s): 09/30 exploratory laparotomy with lysis of adhesions, bowel resection d/t obstruction. repair incarcerated incisional hernia with abdominal washout, thyroidectomy(non functioning), heart cath 06/28 - 100% occluded, unable to stent, partial left nephrectomy for left kidney renal cell carcinoma, PICC line insertion (since removed), colonoscopy, bilateral cataract removal with lens implants, 2 Sections. cardiac Stent 03/2021 Past Anesthesia/Blood Transfusion Reactions: No Reported Reaction Date of Last Stent Placement:: 04/06/2021 Smoking Status: Former smoker - Past Family History Sister(s) Family Medical History: Cancer, Deep Vein Thrombosis (DVT) Additional Family Medical History / Comment(s): Patient has one sister that from liver cancer Brother(s) Family Medical History: Cancer, Deep Vein Thrombosis (DVT) Additional Family Medical History / Comment(s): Patient has 1 brother with past ETOH, past drug abuse, DVT's. She has a second brother that has from throat cancer. Daughter(s) Family Medical History: Diabetes Mellitus, Myocardial Infarction (DE) Additional Family Medical History / Comment(s): Daughter at 23 yrs old from massive DE. Father Family Medical History: Myocardial Infarction (DE) Additional Family Medical History / Comment(s): from mi at age 44 Mother Family Medical History: Cancer Additional Family Medical History / Comment(s): maeve breasts rcancer Medications and Allergies Home Medications Medication Instructions Recorded Confirmed Type Venlafaxine HCl [Venlafaxine HCl 225 mg PO DAILY 10/21/16 10/02/21 History ER] Loratadine [Claritin] 10 mg PO DAILY 03/29/19 10/02/21 History Aspirin 81 mg PO DAILY 12/23/19 10/02/21 History Atorvastatin [Lipitor] 80 mg PO HS 12/23/19 10/02/21 History Pioglitazone [Actos] 15 mg PO DAILY 12/23/19 10/02/21 History Pantoprazole Sodium [Protonix] 40 mg PO TID 04/06/20 10/02/21 History Cariprazine HCl [Vraylar] 1.5 mg PO HS 05/13/20 10/02/21 History Insulin Aspart (For Pump) [NovoLOG 0.01 unit SQ-PUMP CONTINUOUS 10/08/20 10/02/21 History (For Pump)] Isosorbide Dinitrate [Isordil] 10 mg PO BID 10/31/20 10/02/21 History Ezetimibe [Zetia] 10 mg PO DAILY 01/16/21 10/02/21 History Levothyroxine Sodium [Synthroid] 150 mcg PO DAILY 01/16/21 10/02/21 History Meclizine [Antivert] 25 mg PO TID 01/16/21 10/02/21 History Nitroglycerin Sl Tabs [Nitrostat] 0.4 mg SUBLINGUAL Q5M PRN 02/27/21 10/02/21 History Clopidogrel [Plavix] 75 mg PO DAILY #90 tab 08/13/21 10/02/21 Rx lisinopriL [Zestril] 10 mg PO BID #180 tab 08/14/21 10/02/21 Rx HYDROcodone/APAP 5-325MG [Mize 5] 1 each PO Q6HR PRN 3 Days #12 tab 09/13/21 10/02/21 Rx Albuterol Sulfate [Proair Hfa] 1 puff INHALATION DIRECTED PRN 10/02/21 10/02/21 History Beclomethasone Dip 80 Mcg/Puff 1 puff INHALATION BID 10/02/21 10/02/21 History [Qvar 80 mcg] Cholecalciferol [Vitamin D3 (10 10 mcg PO DAILY 10/02/21 10/02/21 History Mcg = 400 Iu)] Cyanocobalamin [Vitamin B-12] 500 mcg PO DAILY 10/02/21 10/02/21 History Ferrous Sulfate [Feosol] 325 mg PO DAILY 10/02/21 10/02/21 History Gabapentin 300 mg PO HS 10/02/21 10/02/21 History Metoprolol Tartrate [Lopressor] 25 mg PO DAILY 10/02/21 10/02/21 History Allergies Allergy/AdvReac Type Severity Reaction Status Date / Time grass pollen Allergy Unknown Verified 09/13/21 16:25 latex Allergy Rash/Hives Verified 10/02/21 14:07 Sulfa (Sulfonamide Allergy Rash/Hives/ Verified 10/02/21 14:07 Antibiotics) Swelling venom-honey bee Allergy Anaphylaxis Verified 10/02/21 14:07 morphine AdvReac Decreased Verified 10/02/21 14:07 Blood Pressure prochlorperazine edisylate AdvReac Vomiting Verified 10/02/21 14:07 [From Compazine] Physical Examination Osteopathic Statement: *. No significant issues noted on an osteopathic structural exam other than those noted in the History and Physical/Consult. PHYSICAL EXAMINATION: General: Awake, alert, appropriate for age, in no acute distress. HEENT: No unusual neck masses around region of lateral neck triangle, thyroid, supraclavicular groove Heart: Regular rate and rhythm, normal S1, S2 and no murmur/gallop. Lungs: Clear to auscultation bilaterally with no use of accessory muscles. Extremities: Skin warm and dry without acute lesions, coloration, temperature, skin intact, no tenderness or erythema Integument: Hairy patches: Absent Dorsal skin dimples: Absent Cafe au lait spots: Absent Surgical incisions: No Palpation: Please see Pain drawing on Intake sheet for further detail. Midline spinal tenderness: Yes, through L2-L4 but most acute about L3 E6 Paralumbar tenderness: Yes E6 Parathoracic tenderness: No E6 Buttocks tenderness: No E6 Special findings: No POSTURAL and MUSCULO-SKELETAL EVALUATION: Coronal Balance: NEUTRAL Recumbent testing: Patient is able to lay flat on back Sagittal Balance: NEUTRAL Shoulder Profile: LEVEL Pelvic Girdle: LEVEL Neck ROM: UNRESTRICTED Lumbar ROM: RESTRICTED Shoulder ROM: Symmetrical Hip ROM: Symmetrical Knee ROM: Symmetrical Hands: Normal appearance, symmetrical Feet: Normal appearance, Symmetrical VASCULAR STATUS : LEFT RIGHT Wrist Pulses INTACT INTACT Pedal Pulses (Dors. pedis & post.tibialis) INTACT INTACT Color NORMAL NORMAL Edema Absent Absent NEUROLOGIC EXAMINATION: Mental Status:Awake and alert, fully oriented, with normal attention, concentration and memory, and fluent, appropriate speech. Cranial Nerves: I: Olfactory not tested. II: Visual acuity normal, no visual field deficit noted with confrontation. III,IV: Normal pupillary reflexes & intact extraocular movements without nystagmus. V,: Intact symmetrical facial sensation. VII: Intact symmetrical facial motor movement VIII: Hearing intact. IX,X: Intact gag, swallow, & normal voice. XI: Sternocleidomastoid, trapezius function intact. XII: Tongue midline with normal movements. L'hermitte's Sign: Negative / absent Spurling'Sign: Absent bilaterally. Cubital percussion test: Absent bilaterally. Adhikari-Tinel sign - Carpal region: Absent bilaterally. Straight Leg Raising: Absent bilaterally. Crossed straight leg raise: negative O8 MOTOR EXAM (0-5/5, N/T) STRENGTH RIGHT LEFT Shoulder Abd (not part of the CAROLINE score) 5 5 Elbow Flexors 5 5 Elbow Extensor 5 5 Wrist Dorsiflexors 5 5 Finger Abductor 5 5 Paralegal Instructor 5 5 Hip Flexor (Not part of CAROLINE Motor score) 4 5 Knee Flexor 4 5 Knee Extensor 4 5 Ankle dorsiflexor 4 5 Ankle plantarflexion 4 5 Extensor hallucis 4 5 REFLEXES(0-4/2, NT) RIGHT LEFT Upper Extremities 2 2 Lower Extremities 2 2 Pathological Reflexes RIGHT LEFT Adhikari's Absent Absent Clonus Absent Absent Babinski Absent Absent # Indicates mechanical impairment Muscle appearance: Symmetrical, without signs of atrophy or dystrophy. Rectal Tone:Deferred Sensory system (0-4, N/T) Test type RU MARI RL LL Joint-Position 2 2 2 2 Vibration 2 2 2 2 Pain & LT sense 2 2 2 2 Dermatomal Deficit: None None None None Gait and Functional Evaluation: Ambulatory aids: Independent Romberg's test: Intact bilaterally Toe heel walk / heel-toe walk intact while maintaining satisfactory balance? No Squatting/straightening w/o assistance to a min of 60 degree knee flexion? No Single leg stance: intact Trendelenburg sign negative bilaterally Hand and finger dexterity intact bilaterally? yes Disdiadochokinesis examination negative bilaterally? yes Results RADIOGRAPHIC STUDIES: XRay taken on 09/26/21 of Lumbar Spine and pelvis: L3 split fracture noted there is minor segmental kyphosis noted levels above and below. There is some early bone healing noted, but no consolidation as of yet. Overall alignment maintained. No other fractures noted. AP pelvis shows congruent level pelvis w/o fracture. CT taken on 08/11/2021 of the lumbar spine demonstrates: This demonstrates an L3 A2 split fracture with possible posterior extension. There is fairly well maintained alignment with minor segmental kyphosis at the levels above and below. There are no other fractures or lesions noted at this time. Assessment and Plan Assessment: 1. L3 A2 split fracture fracture 2. Right lower extremity radiculopathy 3. Right lower extremity weakness 4. Debility due to above Plan: 1. I discussed treatment options with the patient, including operative and non-operative options. At this time the patient is unable to tolerate her brace only. She is minimally active due to pain. She cannot perform her ADLs appropriately with just the brace due to pain and debility. We discussed different options including continued bracing and pain meds vs surgical stabilization and she has elected for surgical stabilization due to pain, debility and non progress with bracing. URGENT L2-L4 MIS stabilization due to patient pain and debility. Pt recently underwent stent placement but due to the nature of this fracture and her pain she cannot wait 6 months to have surgery. The indications, risks, benefits, and alternatives to surgery were discussed with the patient at length. Specifically (but not limited to) the risks of infection, stiffness, recurrence of symptoms, need for revision surgery, local numbness, neurovascular injury, and blood clots were discussed. The patient's questions were answered. The decision to proceed was made. Consent will be obtained for the procedure. We did discuss the risks of her insulin dependence as well as her history of heart disease, stent implantation, and taking ASA/Plavix with the abovementioned, she is understanding of these risks and is willing to proceed. 2. Given a script Mize 5/325mg to help relieve her pain. 3. Ordered an MRI without contrast of the lumbar spine to further examine her soft tissue pathology and for pre-operative planning. Supplements information discussed and given. Expressive Writing Program given and instructed on how to complete. Patient expressed understanding. Ambulate daily Take medications as directed Ice and rest for pain and swelling control. Home Exercise: The patient was given a packet, counselled and directed to participate in a home exercise program for thier current condition. This should also consist of 30 min twice daily of either walking or stationary bike/recumbant biking for cardiovascular health and/or low weight, high repetition resistive exercises along with the prescribed "spine rehab" packet given. They should limit their lifting bending and twisting and use good body mechanics when doing such movement in attempts to mitigate any further aggravation to their symptoms. If any of these exercises causes increased pain or discomfort they are instructed to modify the exercise so that it does not create pain, or to stop the particular exercise that causes them discomfort and consult with their PT about alternatives. Health Maintenance: Health maintenance handout given to the patient which covers topics such as nutritional support, supplementation for symptomatic relief as well as for bone health with vitamin D and calcium, smoking cessation, weight loss counselling and importance of daily exercise with examples and references for each. Medications Reviewed: In our visit today Ms. Kenyon and I have had a chance to go over my understanding of the patient's current condition, the natural course history without intervention and various interventional options. Questions were invited and answered, and the patient wishes to proceed as outlined above. I will be sure to keep you updated afterMs. Kenyon returns here for further follow-up. Thank you again for your referral. Please do not hesitate to contact me if you have any further questions. Signed and authenticated by: [facility] [id number] [facility], [address] [address]
== END ==
LOC: OR 09:14
PROVIDERS: ATTEND Orthopaedic Surgery
DX: S32.032A Unstable burst fracture of third lumbar vertebra, initial encounter for closed fracture (principal); Z53.8 Procedure and treatment not carried out for other reasons; R73.9 Hyperglycemia, unspecified; Z79.02 Long term (current) use of antithrombotics/antiplatelets; E11.44 Type 2 diabetes mellitus with diabetic amyotrophy; Z79.899 Other long term (current) drug therapy; F17.200 Nicotine dependence, unspecified, uncomplicated; I25.10 Atherosclerotic heart disease of native coronary artery without angina pectoris; I10 Essential (primary) hypertension; J44.9 Chronic obstructive pulmonary disease, unspecified; Z85.53 Personal history of malignant neoplasm of renal pelvis; Z86.73 Personal history of transient ischemic attack (TIA), and cerebral infarction without residual deficits; Z86.718 Personal history of other venous thrombosis and embolism; K21.9 Gastro-esophageal reflux disease without esophagitis; E78.5 Hyperlipidemia, unspecified; I25.2 Old myocardial infarction; M06.9 Rheumatoid arthritis, unspecified
CPT/HCPCS: 86850; 86900; 86901

== ENCOUNTER 2022-09-02 12:02 | Observation (INO) | payer OTHER ==
[2022-09-02] MEDS ORDERED: SODIUM CHLORIDE 0.9% 1,000 ML IV STA (12:40)
[2022-09-02] MEDS ORDERED: ASPIRIN 81 MG PO STA (12:40)
--- NOTE | 2022-09-02 12:44 | ED ---
General Adult HPI - General Chief complaint: Chest Pain Stated complaint: Chest Pains Time Seen by Provider: 09/02/22 12:10 Source: patient, RN notes reviewed, old records reviewed Mode of arrival: ambulatory Limitations: no limitations - History of Present Illness Initial comments: This is a 62-year-old female who presents emergency Department complaining of chest pain for the last 36 hours. Patient states the pain radiates from the center of her chest on her left arm. Patient states she has diabetes hypertension high cluster continues to smoke and has had 2 stents placed in the past approximately year ago. Patient denies any recent fevers chills or cough. Patient states this does make a little bit short of breath. Patient denies any nausea vomiting diarrhea. Patient denies any leg swelling or calf tenderness. Patient denies any lightheadedness or dizziness. - Related Data Home Medications Medication Instructions Recorded Confirmed Venlafaxine HCl [Effexor XR] 225 mg PO DAILY 10/21/16 07/15/22 Pantoprazole Sodium [Protonix] 40 mg PO BID 04/06/20 07/15/22 Cariprazine HCl [Vraylar] 1.5 mg PO HS 05/13/20 07/15/22 Insulin Aspart (For Pump) [NovoLOG 0.01 unit SQ-PUMP CONTINUOUS 10/08/2006/18 (For Pump)] Isosorbide Dinitrate [Isordil] 10 mg PO BID 10/31/20 07/15/22 Meclizine [Antivert] 25 mg PO TID PRN 01/16/21 07/15/22 Nitroglycerin Sl Tabs [Nitrostat] 0.4 mg SL Q5M PRN 02/27/21 07/15/22 Ferrous Sulfate [Iron (65 MG 325 mg PO DAILY 10/02/21 07/15/22 Elemental)] Metoprolol Succinate (ER) [Toprol 25 mg PO DAILY 10/05/21 07/15/22 XL] Atorvastatin [Lipitor] 80 mg PO HS 07/15/22 07/15/22 Cetirizine HCl [Zyrtec] 10 mg PO DAILY 07/15/22 07/15/22 Cholecalciferol [Vitamin D3 (125 125 mcg PO TID 07/15/22 07/15/22 Mcg = 5000 Iu)] Gabapentin 300 mg PO TID 07/15/22 07/15/22 Glucagon [Baqsimi] 1 spray NASAL DIRECTED PRN 07/15/22 07/15/22 Ipratropium-Albuterol Nebulize 3 ml INHALATION RT-QID PRN 07/15/22 07/15/22 [Duoneb 0.5 mg-3 mg/3 ml Soln] Levothyroxine Sodium [Synthroid] 50 mcg PO DAILY 07/15/22 07/15/22 Levothyroxine Sodium [Synthroid] 200 mcg PO DAILY 07/15/22 07/15/22 Magnesium Oxide [Mag-Ox] 400 mg PO DAILY 07/15/22 07/15/22 Multivitamins, Thera [Multivitamin 1 tab PO DAILY 07/15/22 07/15/22 (formulary)] calcitrioL [Calcitriol] 0.25 mcg PO SA 07/15/22 07/15/22 methocarbamoL [Robaxin] 500 mg PO TID PRN 07/15/22 07/15/22 traMADol HCL 50 mg PO TID 07/15/22 07/15/22 Previous Rx's Medication Instructions Recorded Aspirin 81 mg PO DAILY 21 Days #21 tab 07/20/22 Ticagrelor [Brilinta] 90 mg PO BID 60 Days #60 tab 07/20/22 Allergies Allergy/AdvReac Type Severity Reaction Status Date / Time grass pollen Allergy Unknown Verified 09/02/22 12:16 latex Allergy Rash/Hives Verified 09/02/22 12:16 Sulfa (Sulfonamide Allergy Rash/Hives/ Verified 09/02/22 12:16 Antibiotics) Swelling venom-honey bee Allergy Anaphylaxis Verified 09/02/22 12:16 morphine AdvReac Decreased Verified 09/02/22 12:16 Blood Pressure prochlorperazine edisylate AdvReac Vomiting Verified 09/02/22 12:16 [From Compazine] Review of Systems ROS Statement: Those systems with pertinent positive or pertinent negative responses have been documented in the HPI. ROS Other: All systems not noted in ROS Statement are negative. Past Medical History Past Medical History: Coronary Artery Disease (CAD), Cancer, COPD, CVA/TIA, Diabetes Mellitus, Deep Vein Thrombosis (DVT), Eye Disorder, GERD/Reflux, Hyperlipidemia, Hypertension, Myocardial Infarction (UT), Renal Disease, Rheumatoid Arthritis (RA), Sleep Apnea/CPAP/BIPAP, Syncope, Thyroid Disorder Additional Past Medical History / Comment(s): 09/16/16 with SBO with surgery/possible septic emboli with cavitary lesions bilateral lungs. 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 coli Nov2015 requiring PICC line insertion for IV antibiotics, restless leg syndr ome, peripheral neropathy. Hx bilateral glaucoma, hx syncope r/t low blood sugars. No CPAP use. pt states had high blood sugar 1 week ago and was seen an [facility]. Last Myocardial Infarction Date:: 2019 History of Any Multi-Drug Resistant Organisms: ESBL, MRSA, VRE Date of last positivie culture/infection: 05/07/16 ESBL, 05/15/16 VRE, MRSA 09/2017 - upper lip MDRO Source:: URINE E.COLI, EC GALLINARUM Past Surgical History: Appendectomy, Bowel Resection, Section, Heart Catheterization, Heart Catheterization With Stent, Hernia Repair Additional Past Surgical History / Comment(s): 09/30 exploratory laparotomy with lysis of adhesions, bowel resection d/t obstruction. repair incarcerated incisional hernia with abdominal washout, thyroidectomy(non functioning), heart cath 06/28 - 100% occluded, unable to stent, partial left nephrectomy for left kidney renal cell carcinoma, PICC line insertion (since removed), colonoscopy, bilateral cataract removal with lens implants, 2 Sections. cardiac Stent 03/2021 Past Anesthesia/Blood Transfusion Reactions: No Reported Reaction Date of Last Stent Placement:: 04/06/2021 Past Psychological History: Depression Smoking Status: Current every day smoker Past Alcohol Use History: None Reported Past Drug Use History: Marijuana - Past Family History Sister(s) Family Medical History: Cancer, Deep Vein Thrombosis (DVT) Additional Family Medical History / Comment(s): Patient has one sister that from liver cancer Brother(s) Family Medical History: Cancer, Deep Vein Thrombosis (DVT) Additional Family Medical History / Comment(s): Patient has 1 brother with past ETOH, past drug abuse, DVT's. She has a second brother that has from throat cancer. Daughter(s) Family Medical History: Diabetes Mellitus, Myocardial Infarction (UT) Additional Family Medical History / Comment(s): Daughter at 23 yrs old from massive UT. Father Family Medical History: Myocardial Infarction (UT) Additional Family Medical History / Comment(s): from mi at age 44 Mother Family Medical History: Cancer Additional Family Medical History / Comment(s): maeve breasts rcancer General Exam - General Exam Comments Initial Comments: GENERAL: Patient is well-developed and well-nourished. Patient is nontoxic and well- hydrated and is in mild distress. ENT: Neck is soft and supple. No significant lymphadenopathy is noted. Oropharynx is clear. Moist mucous membranes. Neck has full range of motion without eliciting any pain. EYES: The sclera were anicteric and conjunctiva were pink and moist. Extraocular movements were intact and pupils were equal round and reactive to light. Eyelids were unremarkable. PULMONARY: Unlabored respirations. Good breath sounds bilaterally. No audible rales rhonchi or wheezing was noted. CARDIOVASCULAR: There is a regular rate and rhythm without any murmurs gallops or rubs. ABDOMEN: Soft and nontender with normal bowel sounds. SKIN: Skin is clear with no lesions or rashes and otherwise unremarkable. NEUROLOGIC: Patient is alert and oriented x3. Cranial nerves II through XII are grossly intact. Motor and sensory are also intact. Normal speech, volume and content. Symmetrical smile. MUSCULOSKELETAL: Normal extremities with adequate strength and full range of motion. No lower extremity swelling or edema. No calf tenderness. LYMPHATICS: No significant lymphadenopathy is noted PSYCHIATRIC: Normal psychiatric evaluation. Limitations: no limitations Course Vital Signs 09/02/22 09/02/22 09/02/22 12:13 13:25 14:34 Temperature 97.4 F L Pulse Rate 62 89 81 Respiratory 22 17 17 Rate Blood Pressure 81/59 102/75 132/70 O2 Sat by Pulse 97 90 L Oximetry Medical Decision Making - Medical Decision Making EKG was interpreted by myself shows a sinus rhythm at 90 bpm NH interval 222 QRS is 89 Q-T intervals 366 QTC is 422. Patient's EKG shows T-wave inversions in leads V4 through V6 as well as 12 and aVF Was pt. sent in by a medical professional or institution (, PA, TRANSITION MANAGER, urgent care, hospital, or halfway...) When possible be specific @ -No Did you speak to anyone other than the patient for history (EMS, parent, family, police, friend...)? What history was obtained from this source @ -No Did you review nursing and triage notes (agree or disagree)? Why? @ -I reviewed and agree with nursing and triage notes Were old charts reviewed (outside hosp., previous admission, EMS record, old EKG, old radiological studies, urgent care reports/EKG's, halfway records)? Report findings @ -I reviewed prior lab results as well as prior radiological studies. Differential Diagnosis (chest pain, altered mental status, abdominal pain women, abdominal pain men, vaginal bleeding, weakness, fever, dyspnea, syncope, headache, dizziness, GI bleed, back pain, seizure, CVA, palpatations, mental health, musculoskeletal)? @ -Differential Chest Pain: Stable Angina, Unstable Angina, STEMI, NSTEMI Aortic Dissection, Pneumothorax, Musculoskeletal, Esophageal Spasm GERD, Cholecystitis, Pancreatitis, Zoster, this is not meant to be an all-inclusive list. EKG interpreted by me (3pts min.). @ -As above X-rays interpreted by me (1pt min.). @ -Chest x-ray was interpreted by myself as no acute normalities. CT interpreted by me (1pt min.). @ -None done U/S interpreted by me (1pt. min.). @ -None done What testing was considered but not performed or refused? (CT, X-rays, U/S, labs)? Why? @ -None What meds were considered but not given or refused? Why? @ -None Did you discuss the management of the patient with other professionals (professionals i.e. , PA, TRANSITION MANAGER, lab, RT, psych nurse, manager social work, python java developer, teacher, command center officer, case making machine operator)? Give summary @ -Spoke with [facility] hospitalist and admitted the patient to them. I wrote admitting orders Was smoking cessation discussed for >3mins.? @ -Yes Was critical care preformed (if so, how long)? @ -No Were there social determinants of health that impacted care today? How? (Homelessness, low income, unemployed, alcoholism, drug addiction, transportation, low edu. Level, literacy, decrease access to med. care, alf, rehab)? @ -No Was there de-escalation of care discussed even if they declined (Discuss DNR or withdrawal of care, Hospice)? DNR status @ -No What co-morbidities impacted this encounter? (DM, HTN, Smoking, COPD, CAD, Cancer, CVA, ARF, Chemo, Hep., AIDS, mental health diagnosis, sleep apnea, m orbid obesity)? @ -Diabetes hypertension smoking and high cholesterol Was patient admitted / discharged? Hospital course, mention meds given and route, prescriptions, significant lab abnormalities, going to OR and other pertinent info. @ -Patient was seen in emergency department patient was given aspirin and Nitropaste initially. Lab values came back patient continued to have chest pain and it was thought at this time that the patient needed to be admitted I spoke with [facility] agreed to admit the patient admitted the patient wrote admitting orders I consult cartilage. Patient's chest x-ray showed no acute abnormality. Undiagnosed new problem with uncertain prognosis? @ -No Drug Therapy requiring intensive monitoring for toxicity (Heparin, Nitro, Insulin, Cardizem)? @ -No Were any procedures done? @ -No Diagnosis/symptom? @ -Chest pain Acute, or Chronic, or Acute on Chronic? @ -Acute Uncomplicated (without systemic symptoms) or Complicated (systemic symptoms)? @ -Complicated Side effects of treatment? @ -No Exacerbation, Progression, or Severe Exacerbation? @ -No Poses a threat to life or bodily function? How? (Chest pain, [place], [place], pneumonia, PE, COPD, DKA, ARF, appy, cholecystitis, CVA, Diverticulitis, Homicidal, Suicidal, threat to staff... and all critical care pts) @ -Yes this could lead to myocardial infarction extremity distal end organ dysfunction - Lab Data Result diagrams: 09/02/22 12:54 09/02/22 12:54 Lab Results 09/02/22 09/02/22 09/02/22 Range/Units 12:54 12:54 12:54 WBC 6.0 (3.8-10.6) k/uL RBC 4.31 (3.80-5.40) m/uL Hgb 13.1 (11.4-16.0) gm/dL Hct 39.1 (34.0-46.0) % MCV 90.6 (80.0-100.0) fL MCH 30.4 (25.0-35.0) pg MCHC 33.5 (31.0-37.0) g/dL RDW 13.6 (11.5-15.5) % Plt Count 279 (150-450) k/uL MPV 8.1 Neutrophils % 68 % Lymphocytes % 25 % Monocytes % 4 % Eosinophils % 2 % Basophils % 0 % Neutrophils # 4.0 (1.3-7.7) k/uL Lymphocytes # 1.5 (1.0-4.8) k/uL Monocytes # 0.2 (0-1.0) k/uL Eosinophils # 0.1 (0-0.7) k/uL Basophils # 0.0 (0-0.2) k/uL PT 9.8 (9.0-12.0) sec INR 0.9 (<1.2) APTT 21.7 L (22.0-30.0) sec Sodium 133 L (137-145) mmol/L Potassium 5.3 H (3.5-5.1) mmol/L Chloride 97 L (98-107) mmol/L Carbon Dioxide 25 (22-30) mmol/L Anion Gap 11 mmol/L BUN 23 H (7-17) mg/dL Creatinine 1.46 H (0.52-1.04) mg/dL Est GFR (CKD-EPI)AfAm 44 (>60 ml/min/1.73 sqM) Est GFR (CKD-EPI)NonAf 38 (>60 ml/min/1.73 sqM) Glucose 332 H (74-99) mg/dL Calcium 10.0 (8.4-10.2) mg/dL Magnesium 2.2 (1.6-2.3) mg/dL Total Bilirubin 0.6 (0.2-1.3) mg/dL AST 26 (14-36) U/L ALT 18 (4-34) U/L Alkaline Phosphatase 139 H (38-126) U/L Troponin I (0.000-0.034) ng/mL Total Protein 8.1 (6.3-8.2) g/dL Albumin 4.8 (3.5-5.0) g/dL 09/02/22 Range/Units 12:54 WBC (3.8-10.6) k/uL RBC (3.80-5.40) m/uL Hgb (11.4-16.0) gm/dL Hct (34.0-46.0) % MCV (80.0-100.0) fL MCH (25.0-35.0) pg MCHC (31.0-37.0) g/dL RDW (11.5-15.5) % Plt Count (150-450) k/uL MPV Neutrophils % % Lymphocytes % % Monocytes % % Eosinophils % % Basophils % % Neutrophils # (1.3-7.7) k/uL Lymphocytes # (1.0-4.8) k/uL Monocytes # (0-1.0) k/uL Eosinophils # (0-0.7) k/uL Basophils # (0-0.2) k/uL PT (9.0-12.0) sec INR (<1.2) APTT (22.0-30.0) sec Sodium (137-145) mmol/L Potassium (3.5-5.1) mmol/L Chloride (98-107) mmol/L Carbon Dioxide (22-30) mmol/L Anion Gap mmol/L BUN (7-17) mg/dL Creatinine (0.52-1.04) mg/dL Est GFR (CKD-EPI)AfAm (>60 ml/min/1.73 sqM) Est GFR (CKD-EPI)NonAf (>60 ml/min/1.73 sqM) Glucose (74-99) mg/dL Calcium (8.4-10.2) mg/dL Magnesium (1.6-2.3) mg/dL Total Bilirubin (0.2-1.3) mg/dL AST (14-36) U/L ALT (4-34) U/L Alkaline Phosphatase (38-126) U/L Troponin I <0.012 (0.000-0.034) ng/mL Total Protein (6.3-8.2) g/dL Albumin (3.5-5.0) g/dL Disposition Clinical Impression: Chest pain Disposition: ADMITTED IP TO THIS HOSP Referrals: Sahra Elder MD [Primary Care Provider] - 1-2 days Time of Disposition: 15:47
[2022-09-02 13:09] LABS: Basophils % (A) 0 %; Eosinophils # (A) 0.1 k/uL (0-0.7); Eosinophils % (A) 2 %; HCT 39.1 % (34.0-46.0); HGB 13.1 gm/dL (11.4-16.0); Lymphocytes # (A) 1.5 k/uL (1.0-4.8); Lymphocytes % (A) 25 %; MCH 30.4 pg (25.0-35.0); MCHC 33.5 g/dL (31.0-37.0); MCV 90.6 fL (80.0-100.0); Mean Platelet Volume 8.1; Monocytes # (A) 0.2 k/uL (0-1.0); Monocytes % (A) 4 %; Neutrophils % (A) 68 %; Platelet Count 279 k/uL (150-450); RBC 4.31 m/uL (3.80-5.40); RDW 13.6 % (11.5-15.5)
[2022-09-02 13:25] LABS: Albumin 4.8 g/dL (3.5-5.0); Total Bilirubin 0.6 mg/dL (0.2-1.3); Total Protein 8.1 g/dL (6.3-8.2)
[2022-09-02 13:45] LABS: Magnesium 2.2 mg/dL (1.6-2.3); Potassium 5.3 mmol/L (3.5-5.1)
[2022-09-02 13:49] LABS: INR 0.9 (<1.2); Partial Thromboplastin Time 21.7 sec (22.0-30.0); Prothrombin Time 9.8 sec (9.0-12.0)
--- NOTE | 2022-09-02 15:31 | XR ---
EXAMINATION TYPE: XR chest 2V DATE OF EXAM: 09/02/2022 COMPARISON: 07/15/2022 TECHNIQUE: PA and lateral views submitted. HISTORY: Chest Pain FINDINGS: The lungs are clear and there is no pneumothorax, pleural effusion, or focal pneumonia. Heart size normal and no overt failure. Osseous structures demonstrate hypertrophic and degenerative changes of the spine. Calcified granuloma left lower lobe. Hyperinflation suggests COPD. Atherosclerotic change aorta. IMPRESSION: 1. No acute process. COPD.
[2022-09-02] MEDS ORDERED: NITROGLYCERIN SL TABS 0.4 MG TAB SUBLINGUAL PRN (15:47)
[2022-09-02] MEDS: PANTOPRAZOLE 40 MG/10 ML VIAL IVP SCH ×2 (16:57→20:54)
[2022-09-02] MEDS: NITROGLYCERIN OINT 1 INCH/GM PACKET TOPICAL SCH ×4 (18:39→20:03)
--- NOTE | 2022-09-03 00:08 | HP ---
HISTORY AND PHYSICAL CHIEF COMPLAINT: Chest pain. HISTORY OF PRESENT ILLNESS: This is a 62-year-old woman with a past medical history of multiple medical problems including COPD, CVA, diabetes type 2, was complaining of chest pain which was felt in the anterior part of chest for last 36 hours, which was radiating from the center to the left arm. Pain was 7/10 and the patient came to [facility] and admitted for further evaluation and treatment. The initial troponins are negative. The patient has multiple Jose abnormalities. The EKG showed some ST changes and the patient was admitted for further evaluation and treatment. There is no history of any fever, rigors, or chills. PAST MEDICAL HISTORY: Reviewed, include COPD, CVA, diabetes mellitus, history of DVT, rest of the history and rest of the chart is also reviewed. HOME MEDICATIONS: Reviewed include Robaxin, dose and rest of medications noted. ALLERGIES: Reviewed include grass pollen, rest of the allergies noted. FAMILY HISTORY: History of myocardial infarction in the family. SOCIAL HISTORY: History of THC, history of smoking. REVIEW OF SYSTEMS: A 14-point review is negative except as mentioned. PHYSICAL EXAMINATION: VITAL SIGNS: Pulse is 92, blood pressure 128/92, and respirations 18. HEENT: Conjunctivae normal. NECK: No jugular venous distention. CARDIOVASCULAR: S1, S2 muffled. RESPIRATIONS: Clear to auscultation. ABDOMEN: Soft, nontender. LEGS: No edema, no swelling. SKIN: No ulcer, rash, bleeding. JOINTS: No active deforming arthropathy. LABORATORY DATA: Creatinine 1.46, sodium 133. ASSESSMENT: 1. Chest pain, possible unstable angina. 2. Increased creatinine with chronic kidney disease, stage 4. 3. Cerebrovascular accident, transient ischemic attack. 4. Diabetes mellitus, type 2. 5. Deep vein thrombosis. 6. Hypertension. 7. Hyperlipidemia. 8. Multiple medical issues. RECOMMENDATIONS: This is a 62-year-old woman who presented with multiple complex medical issues, we will monitor the patient closely. I will recommend to continue current medications. Resume home medications once they are confirmed. I would also recommend cardiology consultation to rule out myocardial infarction. symptomatic treatment. Prognosis guarded because of multiple complex medical conditions. Further recommendations to follow, see orders for further details. MMODL / IJN: [id number] /
[2022-09-03 02:23] LABS: Glucose,Whole Blood 589 mg/dL (70-110)
[2022-09-03] MEDS ORDERED: IPRATROPIUM-ALBUTEROL 3 ML NEB INHALATION PRN (02:36)
[2022-09-03] MEDS ORDERED: NITROGLYCERIN SL TABS 0.4 MG TAB SUBLINGUAL PRN ×2 (02:36→08:35)
[2022-09-03] MEDS ORDERED: methocarbamoL 500 MG TAB PO PRN (02:36)
[2022-09-03] MEDS ORDERED: ZOLPIDEM 5 MG TAB PO PRN (02:36)
[2022-09-03] MEDS ORDERED: MECLIZINE 25 MG TAB PO PRN (02:36)
[2022-09-03] MEDS ORDERED: INSULIN DETEMIR (LEVEMIR) 100 UNIT/ML SYR SQ SCH (02:37)
[2022-09-03] MEDS ORDERED: DEXTROSE 50% SYRINGE 50 ML IVP PRN ×2 (02:40)
[2022-09-03] MEDS ORDERED: INSULIN ASPART (NovoLOG) 100 UNIT/ML VIAL SQ ONE (02:42)
[2022-09-03 04:36] LABS: Glucose,Whole Blood 410 mg/dL (70-110)
[2022-09-03] MEDS ORDERED: ACETAMINOPHEN TAB 325 MG TAB PO PRN (05:14)
[2022-09-03] MEDS: LEVOTHYROXINE 125 MCG TAB PO SCH (06:30)
[2022-09-03] MEDS ORDERED: HEPARIN SODIUM,PORCINE 2,500 UNIT in SODIUM CHLORIDE 0.9% 250 ML IRRIGATION PRN (07:00)
[2022-09-03] MEDS ORDERED: HEPARIN SODIUM,PORCINE 10,000 UNIT in SODIUM CHLORIDE 0.9% 1,000 ML IRRIGATION PRN (07:00)
[2022-09-03] MEDS: MULTIVITAMINS, THERA 1 EACH TAB PO SCH (08:12)
[2022-09-03] MEDS: MAGNESIUM OXIDE 400 MG TAB PO SCH (08:12)
[2022-09-03] MEDS: LORATADINE 10 MG TAB PO SCH (08:12)
[2022-09-03] MEDS: FERROUS SULFATE 325 MG TAB PO SCH (08:12)
[2022-09-03] MEDS: ASPIRIN 81 MG PO SCH (08:13)
[2022-09-03] MEDS: PANTOPRAZOLE 40 MG TABLET PO SCH ×2 (08:13→18:16)
[2022-09-03] MEDS: ISOSORBIDE DINITRATE 10 MG TAB PO SCH ×2 (08:13→22:21)
[2022-09-03] MEDS: CHOLECALCIFEROL 125 MCG (5000 IU) TABLET PO SCH ×3 (08:13→21:39)
[2022-09-03] MEDS: GABAPENTIN 300 MG CAP PO SCH ×3 (08:13→21:39)
[2022-09-03] MEDS: TICAGRELOR 90 MG TAB PO SCH ×2 (08:14→22:21)
[2022-09-03] MEDS: VENLAFAXINE HCL ER 75 MG CAP PO SCH (08:14)
[2022-09-03] MEDS ORDERED: ATORVASTATIN 80 MG TAB PO STA (08:35)
[2022-09-03] MEDS ORDERED: ASPIRIN 325 MG TAB PO STA (08:35)
[2022-09-03] MEDS ORDERED: ALPRAZolam 0.25 MG TAB PO PRN (08:35)
[2022-09-03] MEDS ORDERED: ALPRAZolam 0.5 MG TAB PO PRN (08:35)
[2022-09-03] MEDS ORDERED: ASPIRIN 81 MG PO STA (08:40)
[2022-09-03] MEDS ORDERED: METOPROLOL SUCCINATE (ER) 25 MG TAB.ER.24H PO SCH (09:00)
[2022-09-03] MEDS ORDERED: ASPIRIN 325 MG TAB PO SCH (09:00)
[2022-09-03] MEDS ORDERED: NON FORMULARY DRUG (Levothyroxine Sodium [Synthroid] 200 MCG Tablet) PO SCH (09:00)
[2022-09-03 09:49] LABS: Glucose,Whole Blood 332 mg/dL (70-110)
[2022-09-03] MEDS: SODIUM CHLORIDE 0.9% 1,000 ML IV SCH ×2 (09:57→23:53)
[2022-09-03] MEDS: INSULIN DETEMIR (LEVEMIR) 100 UNIT/ML SYR SQ SCH ×2 (10:27→21:33)
[2022-09-03] MEDS: INSULIN ASPART (NovoLOG) 100 UNIT/ML VIAL SQ SCH ×7 (10:27→21:33)
--- NOTE | 2022-09-03 12:07 | P.CRDCN ---
History of Present Illness Consult date: 09/03/22 Consult reason: chest pain History of present illness: History of present illness: This is a 62-year-old female patient of Dr. Harsh Sierra with past medical history of non-ST elevated myocardial infarction, history of angioplasty of the LAD in 2019 and the OM branch in 2021, hypertension, dyslipidemia, diabetes mellitus, COPD. We have been asked to evaluate the patient regarding chest pain. Patient did have a hospitalization in June of this year which time she was treated for TIA. Hemoglobin A1c was 10.5 at that time. Patient complains of pains in her chest when she was sitting and resting. She thought it was similar to when she had stents done in the past. Pain lasted for about a half hour she did not take nitroglycerin. She experienced a little shortness of breath and dizziness. She denies having any palpitations. No lower extremity edema. No PND. She does have a cough with green phlegm production. She is an active smoker and cut down to 4 cigarettes per day. Patient is seen today in the emergency center waiting for a bed on the observation unit EKG sinus rhythm with nonspecific ST changes similar to previous EKGs Chest x-ray: No acute process, COPD CBC unremarkable. INR 0.9. Sodium 133, potassium 5.3, BUN 23 creatinine 1.46. Blood sugar 332. Calcium 10, magnesium 2.2. Alkaline phosphatase 139, AST 26 and ALT 18. Troponin negative 3. Home cardiac medications: Aspirin 81 mg daily, atorvastatin 80 mg at bedtime, Imdur 10 mg twice daily, levothyroxine 250 g daily, magnesium oxide 400 mg daily, Toprol-XL 25 mg daily Nitrostat as needed, Brilinta 90 mg twice daily Echocardiogram 06/2022: EF 45-50%, mild mitral regurgitation, mild tricuspid regurgitation Cardiac catheterization PTCA 03/2020 with stenting of the proximal left anterior descending Cardiac catheterization PTCA 07/2021 with stenting of the first obtuse marginal branch of the left circumflex Review Of Systems: At the time of my evaluation: Constitutional: No fever, no chills. No weakness, fatigue or lethargy. EENT: No headache. No dizziness. Lungs: No shortness of breath, cough, no sputum production. No wheezing. Cardiovascular: No chest pain, no lower extremity edema. No palpitations. No paroxysmal nocturnal dyspnea. No orthopnea. No lightheadedness or dizziness. No syncopal episodes. Abdominal: No abdominal pain. No nausea, vomiting. No diarrhea. No constipation. No bloody or tarry stools. Genitourinary: No dysuria.. No urinary retention. Musculoskeletal: No myalgias. No muscle weakness, no frequent falls. No back pain. No neck pain. Integumentary: No wounds. No rash. No unusual bruising. Neurologic: No aphasia. No facial droop. No change in mentation. No head injury. No headache. Physical examination: Gen: This is a 62-year-old female. She is resting on ER stretcher and appears to be comfortable. VS: reviewed blood pressure 121/63 HEENT: Head is atraumatic, normocephalic. Pupils equal, round. Sclerae is anicteric. NECK: Supple. No JVD. . LUNGS: Clear to auscultation. No wheezes or rhonchi. No intercostal retractions. HEART: Regular rate and rhythm. Systolic murmur. ABDOMEN: Soft No tenderness. EXTREMITIES: No pedal edema. No calf tenderness. NEUROLOGICAL: Patient is awake, alert and oriented x3. Assessment: Chest pain, possible unstable angina Acute kidney injury History of coronary artery disease Hypertension Dyslipidemia Diabetes mellitus COPD Active tobacco use and dependence Plan: Resume patient's home cardiac medications Patient will be scheduled for cardiac catheterization tomorrow with Dr. Sierra Start patient on the cardiac cath preop orders, add IV fluids 0.9 normal saline at 75 mL per hour, nothing by mouth after midnight Recheck BMP in the morning prior to cardiac catheterization Further recommendations to follow based upon clinical course Thank you kindly for this consultation. Nurse practitioner note has been reviewed, I agree with documented findings and plan of care. Patient was seen and examined. Past Medical History Past Medical History: Coronary Artery Disease (CAD), Cancer, COPD, CVA/TIA, Diabetes Mellitus, Deep Vein Thrombosis (DVT), Eye Disorder, GERD/Reflux, Hyperlipidemia, Hypertension, Myocardial Infarction (NM), Renal Disease, Rheumatoid Arthritis (RA), Sleep Apnea/CPAP/BIPAP, Syncope, Thyroid Disorder Additional Past Medical History / Comment(s): 09/16/16 with SBO with surgery/possible septic emboli with cavitary lesions bilateral lungs. 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 coli 2015 requiring PICC line insertion for IV antibiotics, restless leg syndrome, peripheral neropathy. Hx bilateral glaucoma, hx syncope r/t low blood sugars. No CPAP use. pt states had high blood sugar 1 week ago and was seen an [facility]. Last Myocardial Infarction Date:: 2019 History of Any Multi-Drug Resistant Organisms: ESBL, MRSA, VRE Date of last positivie culture/infection: 05/07/16 ESBL, 05/15/16 VRE, MRSA 09/2017 - upper lip MDRO Source:: URINE E.COLI, EC GALLINARUM Past Surgical History: Appendectomy, Bowel Resection, Section, Heart Catheterization, Heart Catheterization With Stent, Hernia Repair Additional Past Surgical History / Comment(s): 09/30 exploratory laparotomy with lysis of adhesions, bowel resection d/t obstruction. repair incarcerated incisional hernia with abdominal washout, thyroidectomy(non functioning), heart cath 06/28 - 100% occluded, unable to stent, partial left nephrectomy for left kidney renal cell carcinoma, PICC line insertion (since removed), colonoscopy, bilateral cataract removal with lens implants, 2 Sections. cardiac Stent 03/2021 Past Anesthesia/Blood Transfusion Reactions: No Reported Reaction Date of Last Stent Placement:: 04/06/2021 Past Psychological History: Depression Smoking Status: Current every day smoker Past Alcohol Use History: None Reported Past Drug Use History: Marijuana - Past Family History Sister(s) Family Medical History: Cancer, Deep Vein Thrombosis (DVT) Additional Family Medical History / Comment(s): Patient has one sister that from liver cancer Brother(s) Family Medical History: Cancer, Deep Vein Thrombosis (DVT) Additional Family Medical History / Comment(s): Patient has 1 brother with past ETOH, past drug abuse, DVT's. She has a second brother that has from throat cancer. Daughter(s) Family Medical History: Diabetes Mellitus, Myocardial Infarction (NM) Additional Family Medical History / Comment(s): Daughter at 23 yrs old from massive NM. Father Family Medical History: Myocardial Infarction (NM) Additional Family Medical History / Comment(s): from mi at age 44 Mother Family Medical History: Cancer Additional Family Medical History / Comment(s): maeve breasts rcancer Medications and Allergies Home Medications Medication Instructions Recorded Confirmed Type Venlafaxine HCl [Effexor XR] 225 mg PO DAILY 10/21/16 09/02/22 History Pantoprazole Sodium [Protonix] 40 mg PO BID 04/06/20 09/02/22 History Cariprazine HCl [Vraylar] 1.5 mg PO HS 05/13/20 09/02/22 History Insulin Aspart (For Pump) [NovoLOG 0.01 unit SQ-PUMP CONTINUOUS 10/08/2009/02 History (For Pump)] Isosorbide Dinitrate [Isordil] 10 mg PO BID 10/31/20 09/02/22 History Meclizine [Antivert] 25 mg PO TID PRN 01/16/21 09/02/22 History Nitroglycerin Sl Tabs [Nitrostat] 0.4 mg SL Q5M PRN 02/27/21 09/02/22 History Ferrous Sulfate [Iron (65 MG 325 mg PO DAILY 10/02/21 09/02/22 History Elemental)] Metoprolol Succinate (ER) [Toprol 25 mg PO DAILY 10/05/21 09/02/22 History XL] Atorvastatin [Lipitor] 80 mg PO HS 07/15/22 09/02/22 History Cetirizine HCl [Zyrtec] 10 mg PO DAILY 07/15/22 09/02/22 History Cholecalciferol [Vitamin D3 (125 125 mcg PO TID 07/15/22 09/02/22 History Mcg = 5000 Iu)] Gabapentin 300 mg PO TID 07/15/22 09/02/22 History Glucagon [Baqsimi] 1 spray NASAL DIRECTED PRN 07/15/22 09/02/22 History Ipratropium-Albuterol Nebulize 3 ml INHALATION RT-QID PRN 07/15/22 09/02/22 History [Duoneb 0.5 mg-3 mg/3 ml Soln] Levothyroxine Sodium [Synthroid] 50 mcg PO DAILY 07/15/22 09/02/22 History Levothyroxine Sodium [Synthroid] 200 mcg PO DAILY 07/15/22 09/02/22 History Magnesium Oxide [Mag-Ox] 400 mg PO DAILY 07/15/22 09/02/22 History Multivitamins, Thera [Multivitamin 1 tab PO DAILY 07/15/22 09/02/22 History (formulary)] calcitrioL [Calcitriol] 0.25 mcg PO SA 07/15/22 09/02/22 History methocarbamoL [Robaxin] 500 mg PO TID PRN 07/15/22 09/02/22 History Aspirin 81 mg PO DAILY 21 Days #21 tab 07/20/22 09/02/22 Rx Ticagrelor [Brilinta] 90 mg PO BID 60 Days #60 tab 07/20/22 09/02/22 Rx Cyclobenzaprine [Flexeril] 10 mg PO HS 09/02/22 09/02/22 History Insulin Glargine [Lantus Vial] 26 unit SQ HS 09/02/22 09/02/22 History Zolpidem Tartrate [Ambien] 5 mg PO HS PRN 09/02/22 09/02/22 History Allergies Allergy/AdvReac Type Severity Reaction Status Date / Time grass pollen Allergy Unknown Verified 09/02/22 15:51 latex Allergy Rash/Hives Verified 09/02/22 15:51 Sulfa (Sulfonamide Allergy Rash/Hives/ Verified 09/02/22 15:51 Antibiotics) Swelling venom-honey bee Allergy Anaphylaxis Verified 09/02/22 15:51 morphine AdvReac Decreased Verified 09/02/22 15:51 Blood Pressure prochlorperazine edisylate AdvReac Vomiting Verified 09/02/22 15:51 [From Compazine] Physical Exam Vitals: Vital Signs Temp Pulse Resp BP Pulse Ox 09/03/22 06:00 82 16 142/124 97 09/03/22 05:00 85 16 142/70 98 09/03/22 04:00 87 12 135/48 100 09/03/22 03:00 85 16 149/69 98 09/03/22 02:00 91 18 113/77 97 09/03/22 01:10 84 14 113/77 97 09/03/22 00:20 82 16 129/96 98 09/02/22 23:33 98 19 122/96 99 09/02/22 22:18 90 17 114/68 96 09/02/22 20:56 102 H 18 119/72 99 09/02/22 20:04 97 17 117/92 98 09/02/22 18:18 102 H 19 123/70 100 09/02/22 16:59 87 18 114/74 100 09/02/22 15:56 97.8 F 92 18 128/92 93 L 09/02/22 14:34 81 17 132/70 90 L 09/02/22 13:25 89 17 102/75 97 09/02/22 12:13 97.4 F L 62 22 81/59 Results 09/02/22 12:54 09/02/22 12:54 Cardiac Enzymes 09/02/22 09/02/22 09/02/22 Range/Units 12:54 12:54 16:45 AST 26 (14-36) U/L Troponin I <0.012 <0.012 (0.000-0.034) ng/mL 09/02/22 Range/Units 20:09 AST (14-36) U/L Troponin I <0.012 (0.000-0.034) ng/mL Coagulation 09/02/22 Range/Units 12:54 PT 9.8 (9.0-12.0) sec APTT 21.7 L (22.0-30.0) sec CBC 09/02/22 Range/Units 12:54 WBC 6.0 (3.8-10.6) k/uL RBC 4.31 (3.80-5.40) m/uL Hgb 13.1 (11.4-16.0) gm/dL Hct 39.1 (34.0-46.0) % Plt Count 279 (150-450) k/uL Comprehensive Metabolic Panel 09/02/22 Range/Units 12:54 Sodium 133 L (137-145) mmol/L Potassium 5.3 H (3.5-5.1) mmol/L Chloride 97 L (98-107) mmol/L Carbon Dioxide 25 (22-30) mmol/L BUN 23 H (7-17) mg/dL Creatinine 1.46 H (0.52-1.04) mg/dL Glucose 332 H (74-99) mg/dL Calcium 10.0 (8.4-10.2) mg/dL AST 26 (14-36) U/L ALT 18 (4-34) U/L Alkaline Phosphatase 139 H (38-126) U/L Total Protein 8.1 (6.3-8.2) g/dL Albumin 4.8 (3.5-5.0) g/dL Current Medications Generic Name Dose Route Start Last Admin Trade Name Lucas PRN Reason Stop Dose Admin Acetaminophen 650 mg 09/03/22 05:14 09/03/22 06:30 Acetaminophen Tab 325 Mg Tab PO 650 mg Q6HR PRN Administration Fever and/ or Pain Albuterol/Ipratropium 3 ml 09/03/22 02:36 Ipratropium-Albuterol 3 Ml Neb INHALATION RT-QID PRN Shortness Of Breath Aspirin 81 mg 09/03/22 09:00 Aspirin 81 Mg PO DAILY [facility] Atorvastatin Calcium 80 mg 09/03/22 21:00 Atorvastatin 80 Mg Tab PO HS [facility] Calcitriol 0.25 mcg 09/07/22 09:00 Calcitriol 0.25 Mcg Cap PO SA [facility] Cholecalciferol 125 mcg 09/03/22 09:00 Cholecalciferol 125 Mcg (5000 Iu) Tablet PO TID [facility] Cyclobenzaprine HCl 10 mg 09/03/22 21:00 Cyclobenzaprine 10 Mg Tab PO HS [facility] Dextrose/Water 50 ml 09/03/22 02:40 Dextrose 50% Syringe 50 Ml IVP PER PROTOCOL PRN Hypoglycemia Protocol Dextrose/Water 25 ml 09/03/22 02:40 Dextrose 50% Syringe 50 Ml IVP PER PROTOCOL PRN Hypoglycemia Protocol Ferrous Sulfate 325 mg 09/03/22 09:00 Ferrous Sulfate 325 Mg Tab PO DAILY [facility] Gabapentin 300 mg 09/03/22 09:00 Gabapentin 300 Mg Cap PO TID [facility] Insulin Aspart 0 unit 09/03/22 07:30 Insulin Aspart (Novolog) 100 Unit/Ml Vial SQ ACHS [facility] Protocol Insulin Aspart 10 unit 09/03/22 07:30 Insulin Aspart (Novolog) 100 Unit/Ml Vial SQ AC-TID [facility] Insulin Detemir 26 unit 09/03/22 02:37 09/03/22 03:30 Insulin Detemir (Levemir) 100 Unit/Ml Syr SQ 26 unit HS [facility] Administration Isosorbide Dinitrate 10 mg 09/03/22 09:00 Isosorbide Dinitrate 10 Mg Tab PO BID [facility] Levothyroxine Sodium 250 mcg 09/03/22 06:30 09/03/22 06:30 Levothyroxine 125 Mcg Tab PO 250 mcg DAILY@0630 [facility] Administration Loratadine 10 mg 09/03/22 09:00 Loratadine 10 Mg Tab PO DAILY [facility] Magnesium Oxide 400 mg 09/03/22 09:00 Magnesium Oxide 400 Mg Tab PO DAILY [facility] Meclizine HCl 25 mg 09/03/22 02:36 Meclizine 25 Mg Tab PO TID PRN DIZZINESS Methocarbamol 500 mg 09/03/22 02:36 09/03/22 03:05 Methocarbamol 500 Mg Tab PO 500 mg TID PRN Administration Muscle Spasm Metoprolol Succinate 25 mg 09/03/22 09:00 Metoprolol Succinate (Er) 25 Mg Tab.Er.24h PO DAILY [facility] Multivitamins 1 each 09/03/22 09:00 Multivitamins, Thera 1 Each Tab PO DAILY [facility] Nitroglycerin 0.4 mg 09/02/22 15:47 Nitroglycerin Sl Tabs 0.4 Mg Tab SUBLINGUAL Q5M PRN Chest Pain Non-Formulary Medication 1.5 mg 09/03/22 21:00 Cariprazine Hcl [Vraylar] PO HS [facility] Pantoprazole Sodium 40 mg 09/03/22 07:30 Pantoprazole 40 Mg Tablet PO AC-BID [facility] Ticagrelor 90 mg 09/03/22 09:00 Ticagrelor 90 Mg Tab PO BID [facility] Venlafaxine HCl 225 mg 09/03/22 09:00 Venlafaxine Hcl Er 75 Mg Cap PO DAILY [facility] Zolpidem Tartrate 5 mg 09/03/22 02:36 Zolpidem 5 Mg Tab PO HS PRN Insomnia 09/02/22 12:54 09/02/22 12:54
[2022-09-03 12:10] LABS: Glucose,Whole Blood 372 mg/dL (70-110)
[2022-09-03 16:56] LABS: Glucose,Whole Blood 145 mg/dL (70-110)
[2022-09-03 17:34] LABS: African American GFR (CKD) 46.6 (60.0-200.0); BUN/Creat Ratio 17.36 Ratio (12.00-20.00); Blood Urea Nitrogen 24.3 mg/dL (9.0-27.0); Carbon Dioxide 16.4 mmol/L (20.0-27.5); Chloride 97 mmol/L (96-109); Chol/HDL Ratio 3.16 Ratio; Glucose 315 mg/dL (70-110); LDL Cholesterol,Calculated 47.4 mg/dL (0.0-131.0); Non-African American GFR(CKD) 40.2 (60.0-200.0); Sodium 133 mmol/L (135-145)
[2022-09-03 18:21] LABS: Glucose,Whole Blood 76 mg/dL (70-110)
[2022-09-03] MEDS ORDERED: ATORVASTATIN 80 MG TAB PO SCH (21:00)
[2022-09-03] MEDS ORDERED: CYCLOBENZAPRINE 10 MG TAB PO SCH (21:00)
[2022-09-03] MEDS ORDERED: NON FORMULARY DRUG (Cariprazine Hcl [Vraylar] 1.5 MG Capsule) PO SCH (21:00)
[2022-09-03 21:06] LABS: Glucose,Whole Blood 90 mg/dL (70-110)
--- NOTE | 2022-09-04 01:59 | P.PN ---
Subjective Progress Note Date: 09/03/22 This is a 62-year-old female who was recently admitted with chest pain that had been ongoing and radiating down the left arm. Cardiology following and planning for cardiac catheterization in a.m. Kidney functions elevated and would recommend gentle IV hydration with repeat labs in a.m. Patient's blood sugars were quite elevated on admission with home medications including long-acting, sliding scale, and pre-meal insulin ordered and will continue monitoring Accu- Cheks before meals and at bedtime. Patient will be nothing by mouth at midnight and will await cardiology consultation. Review of systems: Constitutional: No reports of fatigue, fever, or chills Cardiovascular: reports of chest pain , no palpitations Respiratory: No reports of shortness of breath or cough GI: no reports of nausea, no reports of vomiting, no diarrhea : No reports of dysuria or retention Neurovascular: No reports of generalized weakness All medications have been reviewed Active Medications Acetaminophen (Acetaminophen Tab 325 Mg Tab) 650 mg PO Q6HR PRN PRN Reason: Fever and/ or Pain Last Admin: 09/03/22 06:30 Dose: 650 mg Albuterol/Ipratropium (Ipratropium-Albuterol 3 Ml Neb) 3 ml INHALATION RT-QID PRN PRN Reason: Shortness Of Breath Last Admin: 09/03/22 07:46 Dose: 3 ml Alprazolam (Alprazolam 0.25 Mg Tab) 0.25 mg PO Q6HR PRN PRN Reason: Mild Anxiety Alprazolam (Alprazolam 0.5 Mg Tab) 0.5 mg PO Q6HR PRN PRN Reason: Moderate Anxiety Aspirin (Aspirin 81 Mg) 81 mg PO DAILY [facility] Stop: 09/23/22 09:01 Last Admin: 09/03/22 08:13 Dose: 81 mg Atorvastatin Calcium (Atorvastatin 80 Mg Tab) 80 mg PO [facility] Last Admin: 09/03/22 21:38 Dose: 80 mg Calcitriol (Calcitriol 0.25 Mcg Cap) 0.25 mcg PO SA [facility] Cholecalciferol (Cholecalciferol 125 Mcg (5000 Iu) Tablet) 125 mcg PO TID [facility] Last Admin: 09/03/22 21:39 Dose: 125 mcg Cyclobenzaprine HCl (Cyclobenzaprine 10 Mg Tab) 10 mg PO [facility] Last Admin: 09/03/22 21:38 Dose: 10 mg Dextrose/Water (Dextrose 50% Syringe 50 Ml) 50 ml IVP PER PROTOCOL PRN; Protocol PRN Reason: Hypoglycemia Dextrose/Water (Dextrose 50% Syringe 50 Ml) 25 ml IVP PER PROTOCOL PRN; Protocol PRN Reason: Hypoglycemia Ferrous Sulfate (Ferrous Sulfate 325 Mg Tab) 325 mg PO DAILY [facility] Last Admin: 09/03/22 08:12 Dose: 325 mg Gabapentin (Gabapentin 300 Mg Cap) 300 mg PO TID [facility] Last Admin: 09/03/22 21:39 Dose: 300 mg Sodium Chloride (Saline 0.9%) 1,000 mls @ 75 mls/hr IV .[id number] [facility] Last Admin: 09/03/22 23:53 Dose: Not Given Heparin Sodium (Porcine) 10, (000 unit/ Sodium Chloride) 1,001 mls @ 999 mls/hr IRRIGATION ONCE PRN PRN Reason: INTRA-OP Stop: 09/04/22 07:01 Heparin Sodium (Porcine) 2,500 (unit/ Sodium Chloride) 250.5 mls @ 250 mls/hr IRRIGATION ONCE PRN PRN Reason: INTRA-OP Stop: 09/04/22 07:01 Insulin Aspart (Insulin Aspart (Novolog) 100 Unit/Ml Vial) 0 unit SQ ACHS [facility]; Protocol Last Admin: 09/03/22 21:33 Dose: Not Given Insulin Aspart (Insulin Aspart (Novolog) 100 Unit/Ml Vial) 10 unit SQ AC-TID [facility] Last Admin: 09/03/22 18:14 Dose: Not Given Insulin Detemir (Insulin Detemir (Levemir) 100 Unit/Ml Syr) 26 unit SQ BID [facility] Last Admin: 09/03/22 21:33 Dose: Not Given Isosorbide Dinitrate (Isosorbide Dinitrate 10 Mg Tab) 10 mg PO BID [facility] Last Admin: 09/03/22 22:21 Dose: 10 mg Levothyroxine Sodium (Levothyroxine 125 Mcg Tab) 250 mcg PO DAILY@0630 [facility] Last Admin: 09/03/22 06:30 Dose: 250 mcg Loratadine (Loratadine 10 Mg Tab) 10 mg PO DAILY [facility] Last Admin: 09/03/22 08:12 Dose: 10 mg Magnesium Oxide (Magnesium Oxide 400 Mg Tab) 400 mg PO DAILY [facility] Last Admin: 09/03/22 08:12 Dose: 400 mg Meclizine HCl (Meclizine 25 Mg Tab) 25 mg PO TID PRN PRN Reason: DIZZINESS Methocarbamol (Methocarbamol 500 Mg Tab) 500 mg PO TID PRN PRN Reason: Muscle Spasm Last Admin: 09/03/22 03:05 Dose: 500 mg Metoprolol Succinate (Metoprolol Succinate (Er) 25 Mg Tab.Er.24h) 25 mg PO DAILY [facility] Last Admin: 09/03/22 08:20 Dose: Not Given Multivitamins (Multivitamins, Thera 1 Each Tab) 1 each PO DAILY [facility] Last Admin: 09/03/22 08:12 Dose: 1 each Nitroglycerin (Nitroglycerin Sl Tabs 0.4 Mg Tab) 0.4 mg SUBLINGUAL Q5M PRN PRN Reason: Chest Pain Non-Formulary Medication (Cariprazine Hcl [Vraylar]) 1.5 mg PO HS [facility] Last Admin: 09/03/22 21:38 Dose: 1.5 mg Pantoprazole Sodium (Pantoprazole 40 Mg Tablet) 40 mg PO AC-BID [facility] Last Admin: 09/03/22 18:16 Dose: 40 mg Ticagrelor (Ticagrelor 90 Mg Tab) 90 mg PO BID [facility] Last Admin: 09/03/22 22:21 Dose: 90 mg Venlafaxine HCl (Venlafaxine Hcl Er 75 Mg Cap) 225 mg PO DAILY [facility] Last Admin: 09/03/22 08:14 Dose: 225 mg Zolpidem Tartrate (Zolpidem 5 Mg Tab) 5 mg PO HS PRN PRN Reason: Insomnia PHYSICAL EXAMINATION: GENERAL: The patient is alert and oriented x4, Well developed, well nourished. HEENT: Pupils are round and equally reacting to light. EOMI. no scleral icterus. No conjunctival pallor. Normocephalic, atraumatic. No pharyngeal erythema. No thyromegaly. CARDIOVASCULAR: S1 and S2 muffled PULMONARY: diminished breath sounds bilaterally with no wheezing or rhonchi noted. ABDOMEN: soft. Nontender on exam. obese. non-distended, normoactive bowel sounds. No palpable organomegaly. MUSCULOSKELETAL: No joint swelling or deformity. EXTREMITIES: No cyanosis, clubbing, or pedal edema. NEUROLOGICAL: Gross neurological examination did not reveal any focal deficits. SKIN: No rashes. Assessment: Chest pain, possible unstable angina Increased creatinine with chronic kidney disease, stage IV History of CVA/TIA Diabetes mellitus, type II, insulin-dependent uncontrolled with hyperglycemia History of deep vein thrombosis Hypertension Hyperlipidemia GI prophylaxis DVT prophylaxis Full code Plan: Recommend to continue with current medications and management with cardiology following. Patient is being scheduled for cardiac catheterization in 24 hours. Blood sugars were elevated on admission although trending down nicely and patient will be nothing by mouth at midnight would recommend monitoring Accu- Cheks before meals and at bedtime and holding is becoming too low as patient will be nothing by mouth for cardiac procedure in the a.m. Continue gentle IV hydration with follow-up BMP in the a.m. Encouraged increased activity as tolerated Will await cardiology evaluation with catheterization and await report due to multiple complex medical issues, prognosis is guarded The impression and plan of care has been dictated by Yanci Arroyo, nurse practitioner as directed. Dr. Sergio MD I have performed a history and examination and MDM of this patient, discussed the same with the dictator, and agree with the dictator's assessment and plan as written ,documented as a scribe. Based on total visit time, I have performed more than 50% of the visit. Any additional findings or plans will be noted. Objective - Vital Signs Vital signs: Vital Signs Temp 97.8 F 09/02/22 15:56 Pulse 92 09/03/22 07:58 Resp 16 09/03/22 06:00 BP 142/124 09/03/22 06:00 Pulse Ox 97 09/03/22 07:49 FiO2 Intake & Output 09/02/22 09/03/22 09/03/22 18:59 06:59 18:59 Weight 54.431 kg - Labs CBC & Chem 7: 09/02/22 12:54 09/03/22 09:03 Labs: Abnormal Lab Results - Last 24 Hours (Table) 09/02/22 09/02/22 09/03/22 Range/Units 12:54 12:54 02:22 APTT 21.7 L (22.0-30.0) sec Sodium 133 L (137-145) mmol/L Potassium 5.3 H (3.5-5.1) mmol/L Chloride 97 L (98-107) mmol/L BUN 23 H (7-17) mg/dL Creatinine 1.46 H (0.52-1.04) mg/dL Glucose 332 H (74-99) mg/dL POC Glucose (mg/dL) 589 H (70-110) mg/dL Alkaline Phosphatase 139 H (38-126) U/L 09/03/22 Range/Units 04:35 APTT (22.0-30.0) sec Sodium (137-145) mmol/L Potassium (3.5-5.1) mmol/L Chloride (98-107) mmol/L BUN (7-17) mg/dL Creatinine (0.52-1.04) mg/dL Glucose (74-99) mg/dL POC Glucose (mg/dL) 410 H (70-110) mg/dL Alkaline Phosphatase (38-126) U/L
[2022-09-04] MEDS: INSULIN ASPART (NovoLOG) 100 UNIT/ML VIAL SQ SCH ×6 (05:58→17:40)
[2022-09-04 06:00] LABS: Glucose,Whole Blood 232 mg/dL (70-110)
[2022-09-04] MEDS: LEVOTHYROXINE 125 MCG TAB PO SCH (06:22)
[2022-09-04] MEDS: PANTOPRAZOLE 40 MG TABLET PO SCH ×2 (06:22→18:06)
[2022-09-04] MEDS ORDERED: METOPROLOL SUCCINATE (ER) 50 MG TAB.ER.24H PO SCH (09:00)
[2022-09-04] MEDS: MULTIVITAMINS, THERA 1 EACH TAB PO SCH (09:01)
[2022-09-04] MEDS: CHOLECALCIFEROL 125 MCG (5000 IU) TABLET PO SCH ×2 (09:01→16:00)
[2022-09-04] MEDS: ISOSORBIDE DINITRATE 10 MG TAB PO SCH (09:01)
[2022-09-04] MEDS: GABAPENTIN 300 MG CAP PO SCH ×2 (09:01→16:00)
[2022-09-04] MEDS: LORATADINE 10 MG TAB PO SCH (09:01)
[2022-09-04] MEDS: MAGNESIUM OXIDE 400 MG TAB PO SCH (09:01)
[2022-09-04] MEDS: FERROUS SULFATE 325 MG TAB PO SCH (09:01)
[2022-09-04] MEDS: VENLAFAXINE HCL ER 75 MG CAP PO SCH (09:02)
[2022-09-04] MEDS ORDERED: INSULIN ASPART (NovoLOG) 100 UNIT/ML VIAL SQ ONE (09:20)
[2022-09-04] MEDS ORDERED: ASPIRIN 325 MG TAB PO STA (10:04)
[2022-09-04] MEDS: ASPIRIN 81 MG PO SCH (10:10)
[2022-09-04] MEDS: TICAGRELOR 90 MG TAB PO SCH (10:11)
[2022-09-04 10:36] LABS: Basophils # (A) 0.01 X 10*3/uL (0.00-0.10); Basophils % (A) 0.2 %; Eosinophils # (A) 0.25 X 10*3/uL (0.04-0.35); Eosinophils % (A) 5.5 %; HCT 31.7 % (37.2-46.3); HGB 10.1 g/dL (12.0-15.0); Immature Grans, Automated 0.2 %; Lymphocytes % (A) 37.5 %; MCH 29.4 pg (27.0-32.0); MCHC 31.9 g/dL (32.0-37.0); MCV 92.2 fL (80.0-97.0); Mean Platelet Volume 10.6 fL (9.5-12.2); Monocytes # (A) 0.24 X 10*3/uL (0.20-1.00); Monocytes % (A) 5.3 %; NRBC Per 100 WBC 0 /100 WBCS (0.0-0.0); Neutrophils # (A) 2.32 X 10*3/uL (1.80-7.70); Neutrophils % (A) 51.3 %; Platelet Count 261 X 10*3/uL (140-440); RBC 3.44 X 10*6/uL (4.10-5.20); RDW 13.6 % (11.5-14.5); WBC 4.53 X 10*3/uL (4.50-10.00)
--- NOTE | 2022-09-04 10:39 | P.PN ---
Subjective Progress Note Date: 09/04/22 History of present illness: This is a 62-year-old female patient of Dr. Harsh Sierra with past medical history of non-ST elevated myocardial infarction, history of angioplasty of the LAD in 2019 and the OM branch in 2021, hypertension, dyslipidemia, diabetes mellitus, COPD. We have been asked to evaluate the patient regarding chest pain. Patient did have a hospitalization in June of this year which time she was treated for TIA. Hemoglobin A1c was 10.5 at that time. Patient complains of pains in her chest when she was sitting and resting. She thought it was similar to when she had stents done in the past. Pain lasted for about a half hour she did not take nitroglycerin. She experienced a little shortness of breath and dizziness. She denies having any palpitations. No lower extremity edema. No PND. She does have a cough with green phlegm production. She is an active smoker and cut down to 4 cigarettes per day. Patient is seen today in the emergency center waiting for a bed on the observation unit EKG sinus rhythm with nonspecific ST changes similar to previous EKGs Chest x-ray: No acute process, COPD CBC unremarkable. INR 0.9. Sodium 133, potassium 5.3, BUN 23 creatinine 1.46. Blood sugar 332. Calcium 10, magnesium 2.2. Alkaline phosphatase 139, AST 26 and ALT 18. Troponin negative 3. Home cardiac medications: Aspirin 81 mg daily, atorvastatin 80 mg at bedtime, Imdur 10 mg twice daily, levothyroxine 250 g daily, magnesium oxide 400 mg daily, Toprol-XL 25 mg daily Nitrostat as needed, Brilinta 90 mg twice daily Echocardiogram 06/2022: EF 45-50%, mild mitral regurgitation, mild tricuspid regurgitation Cardiac catheterization PTCA 03/2020 with stenting of the proximal left anterior descending Cardiac catheterization PTCA 07/2021 with stenting of the first obtuse marginal branch of the left circumflex 09/04 Patient is scheduled for cardiac catheterization today with Dr. Harsh Sierra. She has been on IV fluids to help improve her kidney function. At the time of this dictation, chemistry panel has not been reported. Repeat CBC reveals WBC 5.4, hemoglobin 10.1. Physical examination: Gen: This is a 62-year-old female. She is resting in bed and appears to be comfortable. VS: reviewed blood pressure 121/63 HEENT: Head is atraumatic, normocephalic. Pupils equal, round. Sclerae is anicteric. NECK: Supple. No JVD. . LUNGS: Clear to auscultation. No wheezes or rhonchi. No intercostal retractions. HEART: Regular rate and rhythm. Systolic murmur. ABDOMEN: Soft No tenderness. EXTREMITIES: No pedal edema. No calf tenderness. NEUROLOGICAL: Patient is awake, alert and oriented x3. Assessment: Chest pain, possible unstable angina Acute kidney injury History of coronary artery disease Hypertension Dyslipidemia Diabetes mellitus COPD Active tobacco use and dependence Plan: Resume patient's home cardiac medications Patient is scheduled for cardiac catheterization today with Dr. Sierra Continue IV fluids 0.9 normal saline at 75 mL per hour, nothing by mouth after midnight Awaiting BMP results Further recommendations to follow based upon clinical course Thank you kindly for this consultation. Nurse practitioner note has been reviewed, I agree with documented findings and plan of care. Patient was seen and examined. Objective - Vital Signs Vital signs: Vital Signs Temp 97.8 F 09/04/22 03:21 Pulse 103 H 09/04/22 03:21 Resp 16 09/04/22 03:21 BP 118/72 09/04/22 03:21 Pulse Ox 100 09/04/22 03:21 FiO2 Intake & Output 09/03/22 09/04/22 09/04/22 18:59 06:59 18:59 Intake Total 236 Balance 236 Weight 54.431 kg Intake: Oral 236 Other: # Voids 1 1 - Labs CBC & Chem 7: 09/04/22 06:54 09/03/22 09:03 Labs: Abnormal Lab Results - Last 24 Hours (Table) 09/03/22 09/03/22 09/03/22 Range/Units 09:03 09:03 09:46 Sodium 133 L (135-145) mmol/L Carbon Dioxide 16.4 L (20.0-27.5) mmol/L Anion Gap 19.60 H (10.00-18.00) mmol/L Est GFR (CKD-EPI)AfAm 46.6 L (60.0-200.0) Est GFR (CKD-EPI)NonAf 40.2 L (60.0-200.0) Glucose 315 H (70-110) mg/dL POC Glucose (mg/dL) 332 H (70-110) mg/dL Hemoglobin A1c 11.9 H (0.0-6.0) % Triglycerides 269.00 H (0.00-149.00) mg/dL VLDL Cholesterol, Calc 53.80 H (5.00-40.00) mg/dL 09/03/22 09/03/22 09/04/22 Range/Units 12:07 16:55 05:59 Sodium (135-145) mmol/L Carbon Dioxide (20.0-27.5) mmol/L Anion Gap (10.00-18.00) mmol/L Est GFR (CKD-EPI)AfAm (60.0-200.0) Est GFR (CKD-EPI)NonAf (60.0-200.0) Glucose (70-110) mg/dL POC Glucose (mg/dL) 372 H 145 H 232 H (70-110) mg/dL Hemoglobin A1c (0.0-6.0) % Triglycerides (0.00-149.00) mg/dL VLDL Cholesterol, Calc (5.00-40.00) mg/dL
[2022-09-04 11:44] LABS: ALT 8 U/L (8-44); AST 13 U/L (13-35); African American GFR (CKD) 56.1 (60.0-200.0); Albumin 3.7 g/dL (3.8-4.9); Albumin/Globulin Ratio 1.76 (1.60-3.17); Alkaline Phosphatase 102 U/L (41-126); BUN/Creat Ratio 17.58 Ratio (12.00-20.00); Blood Urea Nitrogen 21.1 mg/dL (9.0-27.0); Calcium 8.7 mg/dL (8.7-10.3); Chloride 103 mmol/L (96-109); Globulin 2.1 g/dL (1.6-3.3); Glucose 223 mg/dL (70-110); Non-African American GFR(CKD) 48.4 (60.0-200.0); Potassium 5.2 mmol/L (3.5-5.5); Sodium 136 mmol/L (135-145); Total Bilirubin <0.15 mg/dL (0.30-1.20); Total Protein 5.8 g/dL (6.2-8.2)
[2022-09-04 11:49] LABS: Glucose,Whole Blood 176 mg/dL (70-110)
[2022-09-04] MEDS ORDERED: fentaNYL (PF) 50 MCG/ML 2 ML AMP ONE (12:05)
[2022-09-04] MEDS ORDERED: fentaNYL (PF) 50 MCG/ML 2 ML AMP IV ONE (12:10)
[2022-09-04] MEDS ORDERED: MIDAZOLAM 2 MG/2 ML VIAL IV ONE (12:10)
[2022-09-04] MEDS ORDERED: LIDOCAINE 1% INJ 10MG/ML (5 ML VIAL-PF) SQ ONE (12:11)
[2022-09-04] MEDS ORDERED: SODIUM CHLORIDE 0.9% 1,000 ML IV ONE (12:11)
[2022-09-04] MEDS ORDERED: VERAPAMIL 2.5 MG/ML 2 ML AMP INTRAARTER ONE (12:17)
[2022-09-04] MEDS ORDERED: HEPARIN SODIUM 1,000 UN/ML (10ML VL) IV ONE (12:24)
[2022-09-04] MEDS ORDERED: IOPAMIDOL-370 125ML BTL INJ ONE (12:38)
[2022-09-04] MEDS: INSULIN DETEMIR (LEVEMIR) 100 UNIT/ML SYR SQ SCH (13:22)
[2022-09-04] MEDS: SODIUM CHLORIDE 0.9% 1,000 ML IV SCH (13:23)
[2022-09-04 13:58] VITALS: BMI 21.2
[2022-09-04 14:32] VITALS: TEMP 98
[2022-09-04 15:05] VITALS: RESP 16
[2022-09-04 16:03] VITALS: BP 135/86
[2022-09-04 16:47] VITALS: PULSE 79
[2022-09-04 17:20] LABS: Glucose,Whole Blood 42 mg/dL (70-110)
[2022-09-04 17:20] LABS: Glucose,Whole Blood 54 mg/dL (70-110)
[2022-09-04 17:20] LABS: Glucose,Whole Blood 65 mg/dL (70-110)
[2022-09-04 18:25] LABS: Glucose,Whole Blood 110 mg/dL (70-110)
--- NOTE | 2022-09-04 22:45 | CC ---
CARDIAC CATHETERIZATION REPORT INDICATIONS: Unstable angina in a patient with known CAD, status post prior revascularization of the LAD and circumflex coronary artery. PROCEDURE NOTE: After obtaining informed consent, left heart catheterization and coronary angiogram were performed via the right radial artery using standard Ruby catheters. The patient tolerated the procedure well without any obvious immediate complications. The patient received moderate conscious sedation. Total sedation time was 20 minutes. Right radial artery access was obtained using modified Seldinger technique. A 6-Turkmen sheath was placed. Catheters and wires were floated into the ascending aorta under fluoroscopic guidance. The patient received verapamil and heparin per protocol. A TR band was used for hemostasis at the end of the procedure. FINDINGS: 1. Hemodynamics: Left ventricular end-diastolic pressure is 8 to 10 mmHg. There is no significant gradient across the aortic valve. 2. Right coronary artery could not be selectively visualized. It appears as if it is originating anomalously from the distal circumflex coronary artery. Left main coronary artery appears calcified. It is a short vessel, free of stenosis, divides into left anterior descending coronary artery and circumflex coronary artery. Previously, the proximal LAD and circumflex coronary artery were stented. The circumflex stent appears patent. Just distal to the stent, there is a 30% to 40% stenosis. LAD; the stented segment appears patent. [id number] LAD is a very small-caliber vessel that is diffusely diseased, which was noted on a previous catheterization and we opted not to touch it at that time given the diffuse nature of the disease and relatively small-caliber vessel. CONCLUSION: Patent stents within the LAD and circumflex coronary artery with diffuse disease involving [id number] LAD. PLAN: I reviewed angiographic data with the patient and told her that her management is going to be in the form of optimal medical therapy. MMODL / IJN: [id number] /
--- NOTE | 2022-09-05 15:36 | P.DS ---
Providers Date of admission: 09/02/22 15:49 Expected date of discharge: 09/04/22 Attending physician: Danielle Hill Consults: 09/02/22 15:47 Consult Physician Urgent Consulting Provider: [facility] Consult Reason/Comments: Chest pain Do you want consulting provider notified?: Yes Primary care physician: Sahra Elder Hospital Course: Final diagnosis Chest pain, possible unstable angina, negative cardiac cath Increased creatinine with chronic kidney disease, stage IV, improving History of CVA/TIA Diabetes mellitus, type II, insulin-dependent uncontrolled with hyperglycemia History of deep vein thrombosis Hypertension Hyperlipidemia GI prophylaxis DVT prophylaxis Full code Discharge disposition Patient is being discharged in a stable condition with guarded prognosis to home. Patient will follow-up with Dr. Elder in the outpatient setting upon discharge. Patient is to follow-up with cardiology outpatient as scheduled. Total time taken is greater than 35 minutes. Hospital course This is a 62-year-old female who was recently admitted with chest pain and being closely monitored. Patient was evaluated by cardiology recommending cardiac catheterization and underwent catheterization showing some patent stents within the LAD and circumflex with diffuse disease of small caliber recommend optimal medical therapy and close outpatient follow-up. Please refer to cardiology note for further HPI. Patient also with diabetes insulin-dependent extremely noncompliant and poorly controlled. Patient does have insulin pump although was told by a doctor to remove the pump as it was not working. Unsure if the pump is functional or if the patient is having difficulty with understanding diabetes. Would recommend long-acting insulin and close monitoring of Accu- Cheks and follow-up with primary care provider this week. Patient encouraged to follow a strict heart healthy diabetic diet. Currently no reports of chest pain, shortness of breath, or palpitations. Patient is afebrile. No reports of nausea or vomiting and patient is tolerating diet. Patient will be discharged home today. Guarded prognosis Physical exam: Gen: This is a 62-year-old female who is awake, alert and oriented 3, elderly- appearing HEENT: Head is atraumatic, normocephalic. Pupils equal, round. Sclerae is anicteric. NECK: Supple. No JVD. No lymphadenopathy. No thyromegaly. LUNGS: Diminished breath sounds bilaterally with no wheezes or rhonchi. No intercostal retractions. HEART: S1, S2 are muffled ABDOMEN: Soft. Bowel sounds are present. No masses. No tenderness. EXTREMITIES: No pedal edema. No calf tenderness. NEUROLOGICAL: Patient is awake, alert and oriented x3. Cranial nerves 2 through 12 are grossly intact. Please refer to medication reconciliation sheet for a list of medications. The impression and plan of care has been dictated by Yanci Arroyo, Nurse Practitioner as directed. Dr. Sergio MD I have performed a history and examination and MDM of this patient, discussed the same with the dictator, and agree with the dictator's assessment and plan as written ,documented as a scribe. Based on total visit time, I have performed more than 50% of the visit. Patient Condition at Discharge: Stable Plan - Discharge Summary Discharge Rx Participant: Yes New Discharge Prescriptions: New Metoprolol Succinate (ER) [Toprol XL] 50 mg PO DAILY #30 tab Acetaminophen Tab [Tylenol] 650 mg PO Q6HR PRN tab PRN Reason: Fever And/ Or Pain Continue Venlafaxine HCl [Effexor XR] 225 mg PO DAILY Pantoprazole Sodium [Protonix] 40 mg PO BID Cariprazine HCl [Vraylar] 1.5 mg PO HS Isosorbide Dinitrate [Isordil] 10 mg PO BID Meclizine [Antivert] 25 mg PO TID PRN PRN Reason: DIZZINESS methocarbamoL [Robaxin] 500 mg PO TID PRN PRN Reason: Muscle Spasm Magnesium Oxide [Mag-Ox] 400 mg PO DAILY Levothyroxine Sodium [Synthroid] 200 mcg PO DAILY Levothyroxine Sodium [Synthroid] 50 mcg PO DAILY Cholecalciferol [Vitamin D3 (125 Mcg = 5000 Iu)] 125 mcg PO TID Cetirizine HCl [Zyrtec] 10 mg PO DAILY Nitroglycerin Sl Tabs [Nitrostat] 0.4 mg SL Q5M PRN PRN Reason: Chest Pain Ferrous Sulfate [Iron (65 MG Elemental)] 325 mg PO DAILY Multivitamins, Thera [Multivitamin (formulary)] 1 tab PO DAILY Ipratropium-Albuterol Nebulize [Duoneb 0.5 mg-3 mg/3 ml Soln] 3 ml INHALATION RT-QID PRN PRN Reason: Shortness Of Breath Glucagon [Baqsimi] 1 spray NASAL DIRECTED PRN PRN Reason: Severe Hypoglycemia Gabapentin 300 mg PO TID calcitrioL [Calcitriol] 0.25 mcg PO SA Atorvastatin [Lipitor] 80 mg PO HS Aspirin 81 mg PO DAILY 21 Days #21 tab Ticagrelor [Brilinta] 90 mg PO BID 60 Days #60 tab Cyclobenzaprine [Flexeril] 10 mg PO HS Zolpidem Tartrate [Ambien] 5 mg PO HS PRN PRN Reason: Insomnia Changed Insulin Glargine [Lantus Vial] 26 unit SQ BID 30 Days #4 each Discontinued Insulin Aspart (For Pump) [NovoLOG (For Pump)] 0.01 unit SQ-PUMP CONTINUOUS Metoprolol Succinate (ER) [Toprol XL] 25 mg PO DAILY Discharge Medication List Venlafaxine HCl [Effexor XR] 225 mg PO DAILY 10/21/16 [History] Pantoprazole Sodium [Protonix] 40 mg PO BID 04/06/20 [History] Cariprazine HCl [Vraylar] 1.5 mg PO HS 05/13/20 [History] Isosorbide Dinitrate [Isordil] 10 mg PO BID 10/31/20 [History] Meclizine [Antivert] 25 mg PO TID PRN 01/16/21 [History] Nitroglycerin Sl Tabs [Nitrostat] 0.4 mg SL Q5M PRN 02/27/21 [History] Ferrous Sulfate [Iron (65 MG Elemental)] 325 mg PO DAILY 10/02/21 [History] Atorvastatin [Lipitor] 80 mg PO HS 07/15/22 [History] Cetirizine HCl [Zyrtec] 10 mg PO DAILY 07/15/22 [History] Cholecalciferol [Vitamin D3 (125 Mcg = 5000 Iu)] 125 mcg PO TID 07/15/22 [History] Gabapentin 300 mg PO TID 07/15/22 [History] Glucagon [Baqsimi] 1 spray NASAL DIRECTED PRN 07/15/22 [History] Ipratropium-Albuterol Nebulize [Duoneb 0.5 mg-3 mg/3 ml Soln] 3 ml INHALATION RT-QID PRN 07/15/22 [History] Levothyroxine Sodium [Synthroid] 50 mcg PO DAILY 07/15/22 [History] Levothyroxine Sodium [Synthroid] 200 mcg PO DAILY 07/15/22 [History] Magnesium Oxide [Mag-Ox] 400 mg PO DAILY 07/15/22 [History] Multivitamins, Thera [Multivitamin (formulary)] 1 tab PO DAILY 07/15/22 [History] calcitrioL [Calcitriol] 0.25 mcg PO SA 07/15/22 [History] methocarbamoL [Robaxin] 500 mg PO TID PRN 07/15/22 [History] Aspirin 81 mg PO DAILY 21 Days #21 tab 07/20/22 [Rx] Ticagrelor [Brilinta] 90 mg PO BID 60 Days #60 tab 07/20/22 [Rx] Cyclobenzaprine [Flexeril] 10 mg PO HS 09/02/22 [History] Zolpidem Tartrate [Ambien] 5 mg PO HS PRN 09/02/22 [History] Acetaminophen Tab [Tylenol] 650 mg PO Q6HR PRN tab 09/04/22 [Rx] Insulin Glargine [Lantus Vial] 26 unit SQ BID 30 Days #4 each 09/04/22 [Rx] Metoprolol Succinate (ER) [Toprol XL] 50 mg PO DAILY #30 tab 09/04/22 [Rx] Follow up Appointment(s)/Referral(s): Sahra Elder MD [Primary Care Provider] - 09/06/22 10:30 am (with fanny mccarthy ) Germán Sierra MD [STAFF PHYSICIAN] - 09/16/22 1:30 pm Patient Instructions/Handouts: *[facility] - After Heart Catheterization - Day Care Worker Instructions Activity/Diet/Wound Care/Special Instructions: Activity Limited until follow-up Follow-up with primary care provider either this week or early next week Follow-up cardiology outpatient Continue taking medications as prescribed Continue to monitor blood sugars closely and keep a diary of all readings Continue with long-acting twice daily insulin and strict diabetic diet Discussed with her primary care provider about other alternatives as you are not using her insulin pump Discharge Disposition: HOME SELF-CARE
== END 2022-09-04 18:39 | disposition home or self-care (01) ==
LOC: EC 12:02 → OBSVTOIN 15:49 → INTOOBSV 15:49 → 6NMEDSUR 15:49 → UNDODISIN 09-04 18:39
PROVIDERS: ADMIT Hospitalist; ATTEND Hospitalist
DX: R07.89 Other chest pain (principal); N17.9 Acute kidney failure, unspecified; I12.9 Hypertensive chronic kidney disease with stage 1 through stage 4 chronic kidney disease, or unspecified chronic kidney disease; E11.22 Type 2 diabetes mellitus with diabetic chronic kidney disease; N18.4 Chronic kidney disease, stage 4 (severe); M54.9 Dorsalgia, unspecified; G89.29 Other chronic pain; G25.81 Restless legs syndrome; E11.42 Type 2 diabetes mellitus with diabetic polyneuropathy; E89.0 Postprocedural hypothyroidism; E11.65 Type 2 diabetes mellitus with hyperglycemia; I25.10 Atherosclerotic heart disease of native coronary artery without angina pectoris; J44.9 Chronic obstructive pulmonary disease, unspecified; K21.9 Gastro-esophageal reflux disease without esophagitis; F32.A Depression, unspecified; F12.90 Cannabis use, unspecified, uncomplicated; F17.210 Nicotine dependence, cigarettes, uncomplicated; I70.0 Atherosclerosis of aorta; J84.10 Pulmonary fibrosis, unspecified; E78.5 Hyperlipidemia, unspecified; I25.2 Old myocardial infarction; M06.9 Rheumatoid arthritis, unspecified; Z95.5 Presence of coronary angioplasty implant and graft; Z79.899 Other long term (current) drug therapy; Z79.4 Long term (current) use of insulin; Z88.2 Allergy status to sulfonamides; Z91.040 Latex allergy status; Z88.5 Allergy status to narcotic agent; Z86.73 Personal history of transient ischemic attack (TIA), and cerebral infarction without residual deficits; Z86.718 Personal history of other venous thrombosis and embolism; Z85.528 Personal history of other malignant neoplasm of kidney; Z98.42 Cataract extraction status, left eye; Z98.41 Cataract extraction status, right eye; Z96.1 Presence of intraocular lens; Z80.0 Family history of malignant neoplasm of digestive organs; Z80.1 Family history of malignant neoplasm of trachea, bronchus and lung; Z80.3 Family history of malignant neoplasm of breast; Z82.49 Family history of ischemic heart disease and other diseases of the circulatory system; Z80.8 Family history of malignant neoplasm of other organs or systems; Z63.4 Disappearance and death of family member; Z83.3 Family history of diabetes mellitus
CPT/HCPCS: 96376; 96361; 96374; 99285; 36415; 94640; 94760; 93005 ×2; 93458; 80061; 80053 ×2; 80048; 83735; 84484; 85025 ×2; 85610; 85730; 83036; 71046; G0378 ×3; C1769; C1894; J2250; J2001; J3010; J1644; C9113; Q9967

== ENCOUNTER 2022-09-08 10:36 | Emergency (ER) | payer OTHER ==
[2022-09-08] MEDS ORDERED: HYDROcodone/APAP 5-325MG 1 EACH TAB PO STA (11:09)
--- NOTE | 2022-09-08 11:13 | ED ---
Extremity Problem HPI - General Chief complaint: Extremity Problem,Nontraumatic Stated complaint: Right arm pain Time Seen by Provider: 09/08/22 10:51 Source: patient, RN notes reviewed, old records reviewed Mode of arrival: ambulatory Limitations: no limitations - History of Present Illness Initial comments: This is a nontoxic-appearing 62-year-old female presents to the emergency room with right forearm pain after having a cardiac catheterization done on . Patient states when pain medication wore off she has had constant pain. Worse with movement. Denies any chest pain or shortness of breath. No fevers. No nausea vomiting diarrhea. MD Complaint: extremity pain (right forearm) -: days(s) (4) Location: right, upper extremity History of Same: No Severity scale (1-10): 10 Quality: sharp Consistency: constant Improves with: nothing Worsens with: other (movement palpation) Associated Symptoms: denies other symptoms - Related Data Home Medications Medication Instructions Recorded Confirmed Venlafaxine HCl [Effexor XR] 225 mg PO DAILY 10/21/16 09/02/22 Pantoprazole Sodium [Protonix] 40 mg PO BID 04/06/20 09/02/22 Cariprazine HCl [Vraylar] 1.5 mg PO HS 05/13/20 09/02/22 Isosorbide Dinitrate [Isordil] 10 mg PO BID 10/31/20 09/02/22 Meclizine [Antivert] 25 mg PO TID PRN 01/16/21 09/02/22 Nitroglycerin Sl Tabs [Nitrostat] 0.4 mg SL Q5M PRN 02/27/21 09/02/22 Ferrous Sulfate [Iron (65 MG 325 mg PO DAILY 10/02/21 09/02/22 Elemental)] Atorvastatin [Lipitor] 80 mg PO HS 07/15/22 09/02/22 Cetirizine HCl [Zyrtec] 10 mg PO DAILY 07/15/22 09/02/22 Cholecalciferol [Vitamin D3 (125 125 mcg PO TID 07/15/22 09/02/22 Mcg = 5000 Iu)] Gabapentin 300 mg PO TID 07/15/22 09/02/22 Glucagon [Baqsimi] 1 spray NASAL DIRECTED PRN 07/15/22 09/02/22 Ipratropium-Albuterol Nebulize 3 ml INHALATION RT-QID PRN 07/15/22 09/02/22 [Duoneb 0.5 mg-3 mg/3 ml Soln] Levothyroxine Sodium [Synthroid] 50 mcg PO DAILY 07/15/22 09/02/22 Levothyroxine Sodium [Synthroid] 200 mcg PO DAILY 07/15/22 09/02/22 Magnesium Oxide [Mag-Ox] 400 mg PO DAILY 07/15/22 09/02/22 Multivitamins, Thera [Multivitamin 1 tab PO DAILY 07/15/22 09/02/22 (formulary)] calcitrioL [Calcitriol] 0.25 mcg PO SA 07/15/22 09/02/22 methocarbamoL [Robaxin] 500 mg PO TID PRN 07/15/22 09/02/22 Cyclobenzaprine [Flexeril] 10 mg PO HS 09/02/22 09/02/22 Zolpidem Tartrate [Ambien] 5 mg PO HS PRN 09/02/22 09/02/22 Previous Rx's Medication Instructions Recorded Aspirin 81 mg PO DAILY 21 Days #21 tab 07/20/22 Ticagrelor [Brilinta] 90 mg PO BID 60 Days #60 tab 07/20/22 Acetaminophen Tab [Tylenol] 650 mg PO Q6HR PRN tab 09/04/22 Insulin Glargine [Lantus Vial] 26 unit SQ BID 30 Days #4 each 09/04/22 Metoprolol Succinate (ER) [Toprol 50 mg PO DAILY #30 tab 09/04/22 XL] Allergies Allergy/AdvReac Type Severity Reaction Status Date / Time grass pollen Allergy Unknown Verified 09/08/22 10:43 latex Allergy Rash/Hives Verified 09/08/22 10:43 Sulfa (Sulfonamide Allergy Rash/Hives/ Verified 09/08/22 10:43 Antibiotics) Swelling venom-honey bee Allergy Anaphylaxis Verified 09/08/22 10:43 morphine AdvReac Decreased Verified 09/08/22 10:43 Blood Pressure prochlorperazine edisylate AdvReac Vomiting Verified 09/08/22 10:43 [From Compazine] Review of Systems ROS Statement: Those systems with pertinent positive or pertinent negative responses have been documented in the HPI. ROS Other: All systems not noted in ROS Statement are negative. Past Medical History Past Medical History: Coronary Artery Disease (CAD), Cancer, COPD, CVA/TIA, Diabetes Mellitus, Deep Vein Thrombosis (DVT), Eye Disorder, GERD/Reflux, Hyperlipidemia, Hypertension, Myocardial Infarction ([place]), Renal Disease, Rheumatoid Arthritis (RA), Sleep Apnea/CPAP/BIPAP, Syncope, Thyroid Disorder Additional Past Medical History / Comment(s): 09/16/16 with SBO with surgery/possible septic emboli with cavitary lesions bilateral lungs. 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 coli 2015 requiring PICC line insertion for IV antibiotics, restless leg syndrome, peripheral neuropathy. Hx bilateral glaucoma, hx syncope r/t low blood sugars. No CPAP use. pt states had high blood sugar 1 week ago and was seen an [facility]. Last Myocardial Infarction Date:: 2019 History of Any Multi-Drug Resistant Organisms: ESBL, MRSA, VRE Date of last positivie culture/infection: 05/07/16 ESBL, 05/15/16 VRE, MRSA 09/2017 - upper lip MDRO Source:: URINE E.COLI, EC GALLINARUM Past Surgical History: Appendectomy, Bowel Resection, Section, Heart Catheterization, Heart Catheterization With Stent, Hernia Repair Additional Past Surgical History / Comment(s): 09/30 exploratory laparotomy with lysis of adhesions, bowel resection d/t obstruction. repair incarcerated incisional hernia with abdominal washout, thyroidectomy(non functioning), heart cath 06/28 - 100% occluded, unable to stent, partial left nephrectomy for left kidney renal cell carcinoma, PICC line insertion (since removed), colonoscopy, bilateral cataract removal with lens implants, 2 Sections. cardiac S tent 03/2021 Past Anesthesia/Blood Transfusion Reactions: No Reported Reaction Date of Last Stent Placement:: 04/06/2021 Past Psychological History: Depression Smoking Status: Current every day smoker Past Alcohol Use History: None Reported Past Drug Use History: Marijuana - Past Family History Sister(s) Family Medical History: Cancer, Deep Vein Thrombosis (DVT) Additional Family Medical History / Comment(s): Patient has one sister that from liver cancer Brother(s) Family Medical History: Cancer, Deep Vein Thrombosis (DVT) Additional Family Medical History / Comment(s): Patient has 1 brother with past ETOH, past drug abuse, DVT's. She has a second brother that has from throat cancer. Daughter(s) Family Medical History: Diabetes Mellitus, Myocardial Infarction ([place]) Additional Family Medical History / Comment(s): Daughter at 23 yrs old from massive [place]. Father Family Medical History: Myocardial Infarction ([place]) Additional Family Medical History / Comment(s): from [place] at age 44 Mother Family Medical History: Cancer Additional Family Medical History / Comment(s): maeve breasts rcancer General Exam Limitations: no limitations General appearance: alert, in no apparent distress Head exam: Present: atraumatic Eye exam: Present: normal appearance. Absent: scleral icterus, conjunctival injection, periorbital swelling Neck exam: Absent: meningismus Respiratory exam: Absent: respiratory distress, accessory muscle use Cardiovascular Exam: Present: regular rate GI/Abdominal exam: Present: soft Right Shoulder Exam: Absent: tenderness Upper Arm exam: Present: full ROM. Absent: tenderness Elbow exam: Present: full ROM. Absent: tenderness Forearm Wrist exam: Present: full ROM, tenderness, other (pucture site right radial, no errythema, swelling or drainage). Absent: swelling, laceration, ecchymosis, deformity, crepitus, dislocation, erythema, tenderness over anatomical snuff box, pain with axial thumb loading Hand Wrist exam: Present: full ROM. Absent: tenderness, swelling Neuro motor exam: Present: wrist extension intact Neurosensory exam: Present: radial nerve intact, ulnar nerve intact, median nerve intact Vascular: Present: normal capillary refill, radial pulse. Absent: vascular compromise Neurological exam: Present: alert, oriented X3, CN II-XII intact Psychiatric exam: Present: normal affect, normal mood Skin exam: Present: warm, dry, normal color. Absent: cyanosis, diaphoretic, petechiae, pallor Course Vital Signs 09/08/22 09/08/22 10:41 12:35 Temperature 98.5 F 98.1 F Pulse Rate 85 82 Respiratory 20 14 Rate Blood Pressure 116/70 118/72 O2 Sat by Pulse 100 Oximetry Medical Decision Making - Medical Decision Making Ultrasound negative for DVT right upper extremity. Pulses are present. Skin is pink warm and dry. Patient was given a [place] with some relief. requesting a script for norco. Patient given tramadol and directed to continue gabapentin and f/u with pcp in the morning. she is agreeable to this plan of care. Case discussed with Dr. Martinez Was pt. sent in by a medical professional or institution ([facility] Collins, ASSIST[employer] WINEMAKER, urgent care, hospital, or longterm...) When possible be specific @ -No Did you speak to anyone other than the patient for history (EMS, parent, family, police, friend...)? What history was obtained from this source @ -No Did you review nursing and triage notes (agree or disagree)? Why? @ -I reviewed and agree with nursing and triage notes Were old charts reviewed (outside hosp., previous admission, EMS record, old EKG, old radiological studies, urgent care reports/EKG's, longterm records)? Report findings @ -No old charts were reviewed Differential Diagnosis (chest pain, altered mental status, abdominal pain women, abdominal pain men, vaginal bleeding, weakness, fever, dyspnea, syncope, headache, dizziness, GI bleed, back pain, seizure, CVA, palpatations, mental health, musculoskeletal)? @ -Thrombophlebitis, DVT, cellulitis, abscess, this is not an all inclusive list EKG interpreted by me (3pts min.). @ -n/a X-rays interpreted by me (1pt min.). @ -None done CT interpreted by me (1pt min.). @ -None done U/S interpreted by me (1pt. min.). @ -no What testing was considered but not performed or refused? (CT, X-rays, U/S, labs)? Why? @ -X-ray was considered however patient denies any trauma, full range of motion What meds were considered but not given or refused? Why? @ -None Did you discuss the management of the patient with other professionals (professionals i.e. [facility] Collins, ASSISTANT WINEMAKER, lab, RT, psych nurse, social service liaison, rope maker, teacher, sales and service officer, correctional case records supervisor)? Give summary @ -No Was smoking cessation discussed for >3mins.? @ -No Was critical care preformed (if so, how long)? @ -No Were there social determinants of health that impacted care today? How? (Homelessness, low income, unemployed, alcoholism, drug addiction, transportation, low edu. Level, literacy, decrease access to med. care, penitentiary, rehab)? @ -No Was there de-escalation of care discussed even if they declined (Discuss DNR or withdrawal of care, Hospice)? DNR status @ -No What co-morbidities impacted this encounter? (DM, HTN, Smoking, COPD, CAD, Cancer, CVA, ARF, Chemo, Hep., AIDS, mental health diagnosis, sleep apnea, morbid obesity)? @ -Patient has a history of coronary artery disease, CVA, diabetes, DVT, GERD, hypertension, hyperlipidemia, renal disease, rheumatoid arthritis, chronic back pain, hypothyroidism, restless leg syndrome, peripheral neuropathy Was patient admitted / discharged? Hospital course, mention meds given and route, prescriptions, significant lab abnormalities, going to OR and other pertinent info. @ -Discharged Undiagnosed new problem with uncertain prognosis? @ -No Drug Therapy requiring intensive monitoring for toxicity (Heparin, Nitro, Insulin, Cardizem)? @ -No Were any procedures done? @ -No Diagnosis/symptom? @ -Right arm pain, post cardiac catheterization Acute, or Chronic, or Acute on Chronic? @ -Acute Uncomplicated (without systemic symptoms) or Complicated (systemic symptoms)? @ -Uncomplicated Side effects of treatment? @ -No Exacerbation, Progression, or Severe Exacerbation? @ -No Poses a threat to life or bodily function? How? (Chest pain, [place], [place], pneumonia, PE, COPD, DKA, ARF, appy, cholecystitis, CVA, Diverticulitis, Homicidal, Suicidal, threat to staff... and all critical care pts) @ -No Disposition Clinical Impression: Arm pain, right Disposition: HOME SELF-CARE Condition: Good Instructions (If sedation given, give patient instructions): Arm Pain (ED) Additional Instructions: Tylenol and ice for pain. Follow-up with the primary care doctor tomorrow. Return with any numbness, swelling, discoloration or increased pain. Is patient prescribed a controlled substance at d/c from ED?: No Referrals: Sahra Elder MD [Primary Care Provider] - 1-2 days Time of Disposition: 12:29
--- NOTE | 2022-09-08 12:07 | US ---
EXAMINATION TYPE: US venous doppler duplex UE RT DATE OF EXAM: 09/08/2022 COMPARISON: NONE CLINICAL HISTORY: Right upper extremity pain following heart catheter x 3 days. SIDE PERFORMED: Right Right Arm: Negative for DVT IMPRESSION: 1. Right upper extremity ultrasound negative for deep venous thrombosis.
[2022-09-08] MEDS ORDERED: traMADol 50 MG STARTER PACK 3 TAB BTL PO STA (12:29)
[2022-09-08 12:37] VITALS: BP 118/72; PULSE 82; RESP 14; TEMP 98.1
== END 2022-09-08 12:39 | disposition home or self-care (01) ==
LOC: EC 10:36
DX: M79.631 Pain in right forearm (principal); E11.40 Type 2 diabetes mellitus with diabetic neuropathy, unspecified; I10 Essential (primary) hypertension; E78.5 Hyperlipidemia, unspecified; I25.10 Atherosclerotic heart disease of native coronary artery without angina pectoris; I25.2 Old myocardial infarction; E03.9 Hypothyroidism, unspecified; J44.9 Chronic obstructive pulmonary disease, unspecified; K21.9 Gastro-esophageal reflux disease without esophagitis; M06.9 Rheumatoid arthritis, unspecified; F32.A Depression, unspecified; F17.200 Nicotine dependence, unspecified, uncomplicated; F12.90 Cannabis use, unspecified, uncomplicated; Z86.73 Personal history of transient ischemic attack (TIA), and cerebral infarction without residual deficits; Z86.718 Personal history of other venous thrombosis and embolism; Z79.890 Hormone replacement therapy; Z79.899 Other long term (current) drug therapy; Z88.2 Allergy status to sulfonamides; Z88.6 Allergy status to analgesic agent; Z88.8 Allergy status to other drugs, medicaments and biological substances; Z91.040 Latex allergy status; Z91.030 Bee allergy status; Z91.048 Other nonmedicinal substance allergy status
CPT/HCPCS: 99284

== ENCOUNTER 2022-09-10 22:50 | Emergency (ER) | payer OTHER ==
[2022-09-10 22:58] VITALS: BP 123/73; PULSE 102; RESP 20; TEMP 98.2
[2022-09-10 23:48] LABS: Basophils % (A) 0 %; Eosinophils # (A) 0.2 k/uL (0-0.7); Eosinophils % (A) 4 %; HCT 31.7 % (34.0-46.0); HGB 10.3 gm/dL (11.4-16.0); Lymphocytes # (A) 1.6 k/uL (1.0-4.8); Lymphocytes % (A) 29 %; MCH 30.2 pg (25.0-35.0); MCHC 32.6 g/dL (31.0-37.0); MCV 92.7 fL (80.0-100.0); Mean Platelet Volume 7.8; Monocytes # (A) 0.3 k/uL (0-1.0); Monocytes % (A) 5 %; Neutrophils # (A) 3.2 k/uL (1.3-7.7); Neutrophils % (A) 60 %; Platelet Count 287 k/uL (150-450); RBC 3.41 m/uL (3.80-5.40); RDW 13.8 % (11.5-15.5); WBC 5.4 k/uL (3.8-10.6)
[2022-09-10] MEDS ORDERED: HYDROmorphone 0.5 MG/0.5 ML SYRINGE IVP STA (23:48)
[2022-09-10 23:57] LABS: ALT 21 U/L (4-34); AST 45 U/L (14-36); African American GFR (CKD) >90 (>60 ml/min/1.73 sqM); Albumin 3.8 g/dL (3.5-5.0); Alkaline Phosphatase 91 U/L (38-126); Anion Gap 5 mmol/L; Blood Urea Nitrogen 17 mg/dL (7-17); Calcium 8.5 mg/dL (8.4-10.2); Carbon Dioxide 26 mmol/L (22-30); Chloride 109 mmol/L (98-107); Glucose 127 mg/dL (74-99); Non-African American GFR(CKD) 86 (>60 ml/min/1.73 sqM); Sodium 140 mmol/L (137-145); Total Bilirubin 0.6 mg/dL (0.2-1.3); Total Protein 6.8 g/dL (6.3-8.2)
[2022-09-11 00:02] LABS: Potassium 5.1 mmol/L (3.5-5.1)
--- NOTE | 2022-09-11 00:04 | XR ---
EXAMINATION TYPE: XR chest 2V DATE OF EXAM: 09/10/2022 COMPARISON: NONE HISTORY: Pain TECHNIQUE: 2 views FINDINGS: Heart and mediastinum are normal. Lungs are clear of consolidation. There is a 8 mm calcifi ed granuloma left lower lobe. No pleural effusion. The bony thorax is intact. IMPRESSION: No active cardiopulmonary disease. No change.
--- NOTE | 2022-09-11 00:34 | ED ---
General Adult HPI - General Chief complaint: Chest Pain Stated complaint: Chest Pain,SOB Time Seen by Provider: 09/10/22 23:02 Source: patient, RN notes reviewed, old records reviewed Mode of arrival: wheelchair Limitations: no limitations - History of Present Illness Initial comments: 62-year-old female presenting for evaluation of chest discomfort. Symptoms began prior to arrival but the patient does report recurrent chest pain issues which she has been evaluated on multiple occasions 4. She also is complaining of some pain at the puncture site of her recent heart catheterization. Heart catheterization showed stable CAD without acute occlusion, no intervention was performed this was done 4 days prior. No fever. No cough. No dyspnea. - Related Data Home Medications Medication Instructions Recorded Confirmed Venlafaxine HCl [Effexor XR] 225 mg PO DAILY 10/21/16 09/02/22 Pantoprazole Sodium [Protonix] 40 mg PO BID 04/06/20 09/02/22 Cariprazine HCl [Vraylar] 1.5 mg PO HS 05/13/20 09/02/22 Isosorbide Dinitrate [Isordil] 10 mg PO BID 10/31/20 09/02/22 Meclizine [Antivert] 25 mg PO TID PRN 01/16/21 09/02/22 Nitroglycerin Sl Tabs [Nitrostat] 0.4 mg SL Q5M PRN 02/27/21 09/02/22 Ferrous Sulfate [Iron (65 MG 325 mg PO DAILY 10/02/21 09/02/22 Elemental)] Atorvastatin [Lipitor] 80 mg PO HS 07/15/22 09/02/22 Cetirizine HCl [Zyrtec] 10 mg PO DAILY 07/15/22 09/02/22 Cholecalciferol [Vitamin D3 (125 125 mcg PO TID 07/15/22 09/02/22 Mcg = 5000 Iu)] Gabapentin 300 mg PO TID 07/15/22 09/02/22 Glucagon [Baqsimi] 1 spray NASAL DIRECTED PRN 07/15/22 09/02/22 Ipratropium-Albuterol Nebulize 3 ml INHALATION RT-QID PRN 07/15/22 09/02/22 [Duoneb 0.5 mg-3 mg/3 ml Soln] Levothyroxine Sodium [Synthroid] 50 mcg PO DAILY 07/15/22 09/02/22 Levothyroxine Sodium [Synthroid] 200 mcg PO DAILY 07/15/22 09/02/22 Magnesium Oxide [Mag-Ox] 400 mg PO DAILY 07/15/22 09/02/22 Multivitamins, Thera [Multivitamin 1 tab PO DAILY 07/15/22 09/02/22 (formulary)] calcitrioL [Calcitriol] 0.25 mcg PO SA 07/15/22 09/02/22 methocarbamoL [Robaxin] 500 mg PO TID PRN 07/15/22 09/02/22 Cyclobenzaprine [Flexeril] 10 mg PO HS 09/02/22 09/02/22 Zolpidem Tartrate [Ambien] 5 mg PO HS PRN 09/02/22 09/02/22 Previous Rx's Medication Instructions Recorded Aspirin 81 mg PO DAILY 21 Days #21 tab 07/20/22 Ticagrelor [Brilinta] 90 mg PO BID 60 Days #60 tab 07/20/22 Acetaminophen Tab [Tylenol] 650 mg PO Q6HR PRN tab 09/04/22 Insulin Glargine [Lantus Vial] 26 unit SQ BID 30 Days #4 each 09/04/22 Metoprolol Succinate (ER) [Toprol 50 mg PO DAILY #30 tab 09/04/22 XL] Allergies Allergy/AdvReac Type Severity Reaction Status Date / Time grass pollen Allergy Unknown Verified 09/10/22 22:58 latex Allergy Rash/Hives Verified 09/10/22 22:58 Sulfa (Sulfonamide Allergy Rash/Hives/ Verified 09/10/22 22:58 Antibiotics) Swelling venom-honey bee Allergy Anaphylaxis Verified 09/10/22 22:58 morphine AdvReac Decreased Verified 09/10/22 22:58 Blood Pressure prochlorperazine edisylate AdvReac Vomiting Verified 09/10/22 22:58 [From Compazine] Review of Systems ROS Statement: Those systems with pertinent positive or pertinent negative responses have been documented in the HPI. ROS Other: All systems not noted in ROS Statement are negative. Past Medical History Past Medical History: Coronary Artery Disease (CAD), Cancer, COPD, CVA/TIA, Diabetes Mellitus, Deep Vein Thrombosis (DVT), Eye Disorder, GERD/Reflux, Hyperlipidemia, Hypertension, Myocardial Infarction ([place]), Renal Disease, Rheumatoid Arthritis (RA), Sleep Apnea/CPAP/BIPAP, Syncope, Thyroid Disorder Additional Past Medical History / Comment(s): 09/16/16 with SBO with surgery/ possible septic emboli with cavitary lesions bilateral lungs. 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 coli Nov2015 requiring PICC line insertion for IV antibiotics, restless leg syndrome, peripheral neuropathy. Hx bilateral glaucoma, hx syncope r/t low blood sugars. No CPAP use. pt states had high blood sugar 1 week ago and was seen an [facility]. Last Myocardial Infarction Date:: 2019 History of Any Multi-Drug Resistant Organisms: ESBL, MRSA, VRE Date of last positivie culture/infection: 05/07/16 ESBL, 05/15/16 VRE, MRSA 09/2017 - upper lip MDRO Source:: URINE E.COLI, EC GALLINARUM Past Surgical History: Appendectomy, Bowel Resection, Section, Heart Catheterization, Heart Catheterization With Stent, Hernia Repair Additional Past Surgical History / Comment(s): 09/30 exploratory laparotomy with lysis of adhesions, bowel resection d/t obstruction. repair incarcerated incisional hernia with abdominal washout, thyroidectomy(non functioning), heart cath 06/28 - 100% occluded, unable to stent, partial left nephrectomy for left kidney renal cell carcinoma, PICC line insertion (since removed), colonoscopy, bilateral cataract removal with lens implants, 2 Sections. cardiac Stent 03/2021 Past Anesthesia/Blood Transfusion Reactions: No Reported Reaction Date of Last Stent Placement:: 04/06/2021 Past Psychological History: Depression Smoking Status: Current every day smoker Past Alcohol Use History: None Reported Past Drug Use History: Marijuana - Past Family History Sister(s) Family Medical History: Cancer, Deep Vein Thrombosis (DVT) Additional Family Medical History / Comment(s): Patient has one sister that from liver cancer Brother(s) Family Medical History: Cancer, Deep Vein Thrombosis (DVT) Additional Family Medical History / Comment(s): Patient has 1 brother with past ETOH, past drug abuse, DVT's. She has a second brother that has from throat cancer. Daughter(s) Family Medical History: Diabetes Mellitus, Myocardial Infarction ([place]) Additional Family Medical History / Comment(s): Daughter at 23 yrs old from massive [place]. Father Family Medical History: Myocardial Infarction ([place]) Additional Family Medical History / Comment(s): from mi at age 44 Mother Family Medical History: Cancer Additional Family Medical History / Comment(s): maeve breasts rcancer General Exam Limitations: no limitations General appearance: alert, in no apparent distress Head exam: Present: atraumatic, normocephalic Eye exam: Present: normal appearance, PERRL ENT exam: Present: normal exam Neck exam: Present: normal inspection. Absent: tenderness, meningismus Respiratory exam: Present: normal lung sounds bilaterally. Absent: respiratory distress, wheezes Cardiovascular Exam: Present: regular rate, normal rhythm GI/Abdominal exam: Present: soft. Absent: distended, tenderness Extremities exam: Present: normal inspection, normal capillary refill, other (Tear puncture site shows no ecchymosis, no swelling or induration, no erythema, normal Refill in all 5 digits on the right hand). Absent: pedal edema Neurological exam: Present: alert, oriented X3, CN II-XII intact. Absent: motor sensory deficit Psychiatric exam: Present: normal affect, normal mood Skin exam: Present: warm, dry, intact Course Vital Signs 09/10/22 22:56 Temperature 98.2 F Pulse Rate 102 H Respiratory 20 Rate Blood Pressure 123/73 O2 Sat by Pulse 100 Oximetry - Reevaluation(s) Reevaluation #1: 09/11/22 01:17 Patient feeling better and wants to leave. EKG Findings - EKG Comments: EKG Findings:: EKG: Sinus tach rate of 102, LVH, no ST segment elevation, UT interval 140, QRS duration 86, QTC 403 - EKG Results: EKG: interpreted by ERMD Medical Decision Making - Medical Decision Making Was pt. sent in by a medical professional or institution (, PA, EXPEDITIONARY [employer], urgent care, hospital, or custodial...) When possible be specific @ -[No] Did you speak to anyone other than the patient for history (EMS, parent, family, police, friend...)? What history was obtained from this source @ -[No] Did you review nursing and triage notes (agree or disagree)? Why? @ -[I reviewed and agree with nursing and triage notes] Were old charts reviewed (outside hosp., previous admission, EMS record, old EKG, old radiological studies, urgent care reports/EKG's, custodial records)? Report findings @ -Reviewed heart catheterization from 4 days prior Differential Diagnosis (chest pain, altered mental status, abdominal pain women, abdominal pain men, vaginal bleeding, weakness, fever, dyspnea, syncope, headache, dizziness, GI bleed, back pain, seizure, CVA, palpatations, mental health, musculoskeletal)? @ -Differential Chest Pain: Stable Angina, Unstable Angina, STEMI, NSTEMI Aortic Dissection, Pneumothorax, Musculoskeletal, Esophageal Spasm GERD, Cholecystitis, Pancreatitis, Zoster, this is not meant to be an all-inclusive list. EKG interpreted by me (3pts min.). @ -[As above] X-rays interpreted by me (1pt min.). @ -Negative for acute cardiopulmonary findings CT interpreted by me (1pt min.). @ -[None done] U/S interpreted by me (1pt. min.). @ -[None done] What testing was considered but not performed or refused? (CT, X-rays, U/S, labs)? Why? @ -[None] What meds were considered but not given or refused? Why? @ -[None] Did you discuss the management of the patient with other professionals (professionals i.e. , PA, EX[employer], lab, RT, psych nurse, community mental health social worker, assistant director of financial aid, teacher, booking police officer, case sealer)? Give summary @ -[No] Was smoking cessation discussed for >3mins.? @ -[No] Was critical care preformed (if so, how long)? @ -[No] Were there social determinants of health that impacted care today? How? (Homelessness, low income, unemployed, alcoholism, drug addiction, transportation, low edu. Level, literacy, decrease access to med. care, senior living, rehab)? @ -[No] Was there de-escalation of care discussed even if they declined (Discuss DNR or withdrawal of care, Hospice)? DNR status @ -[No] What co-morbidities impacted this encounter? (DM, HTN, Smoking, COPD, CAD, Cancer, CVA, ARF, Chemo, Hep., AIDS, mental health diagnosis, sleep apnea, morbid obesity)? @ -[None] Was patient admitted / discharged? Hospital course, mention meds given and route, prescriptions, significant lab abnormalities, going to OR and other pertinent info. @ -[62-year-old female presenting for evaluation of right arm pain and chest pain. Workup reveals stable EKG without ST segment changes. Chest x-ray is clear. She has a mild anemia which is improved from prior. Her troponin is negative. Her complaint of right arm pain does not reveal any acute abnormalities on exam. Ultimately the patient is feeling better and wishes to leave. 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 She will return with worsening or changing symptoms.] Undiagnosed new problem with uncertain prognosis? @ -[No] Drug Therapy requiring intensive monitoring for toxicity (Heparin, Nitro, Insulin, Cardizem)? @ -[No] Were any procedures done? @ -[No] Diagnosis/symptom? @ -Chest pain, resolved Acute, or Chronic, or Acute on Chronic? @ -Acute on chronic Uncomplicated (without systemic symptoms) or Complicated (systemic symptoms)? @ -[default] Side effects of treatment? @ -[No] Exacerbation, Progression, or Severe Exacerbation? @ -[No] Poses a threat to life or bodily function? How? (Chest pain, [place], [place], pneumonia, PE, COPD, DKA, ARF, appy, cholecystitis, CVA, Diverticulitis, Homicidal, Suicidal, threat to staff... and all critical care pts) @ -Patient is informed of the risks including cardiac ischemia, worsening pain, arrhythmia. - Lab Data Result diagrams: 09/10/22 23:39 09/10/22 23:39 Lab Results 09/10/22 09/10/22 09/10/22 Range/Units 23:39 23:39 23:39 WBC 5.4 (3.8-10.6) k/uL RBC 3.41 L (3.80-5.40) m/uL Hgb 10.3 L (11.4-16.0) gm/dL Hct 31.7 L (34.0-46.0) % MCV 92.7 (80.0-100.0) fL MCH 30.2 (25.0-35.0) pg MCHC 32.6 (31.0-37.0) g/dL RDW 13.8 (11.5-15.5) % Plt Count 287 (150-450) k/uL MPV 7.8 Neutrophils % 60 % Lymphocytes % 29 % Monocytes % 5 % Eosinophils % 4 % Basophils % 0 % Neutrophils # 3.2 (1.3-7.7) k/uL Lymphocytes # 1.6 (1.0-4.8) k/uL Monocytes # 0.3 (0-1.0) k/uL Eosinophils # 0.2 (0-0.7) k/uL Basophils # 0.0 (0-0.2) k/uL Sodium 140 (137-145) mmol/L Potassium 5.1 (3.5-5.1) mmol/L Chloride 109 H (98-107) mmol/L Carbon Dioxide 26 (22-30) mmol/L Anion Gap 5 mmol/L BUN 17 (7-17) mg/dL Creatinine 0.75 (0.52-1.04) mg/dL Est GFR (CKD-EPI)AfAm >90 (>60 ml/min/1.73 sqM) Est GFR (CKD-EPI)NonAf 86 (>60 ml/min/1.73 sqM) Glucose 127 H (74-99) mg/dL Calcium 8.5 (8.4-10.2) mg/dL Total Bilirubin 0.6 (0.2-1.3) mg/dL AST 45 H (14-36) U/L ALT 21 (4-34) U/L Alkaline Phosphatase 91 (38-126) U/L Troponin I 0.033 (0.000-0.034) ng/mL Total Protein 6.8 (6.3-8.2) g/dL Albumin 3.8 (3.5-5.0) g/dL Disposition Clinical Impression: Chest pain Disposition: HOME SELF-CARE Condition: Fair Instructions (If sedation given, give patient instructions): Chest Pain (ED) Is patient prescribed a controlled substance at d/c from ED?: No Referrals: Sahra Elder MD [Primary Care Provider] - 1-2 days Time of Disposition: 01:20
[2022-09-11 01:43] LABS: INR 0.9 (<1.2); Prothrombin Time 9.5 sec (9.0-12.0)
[2022-09-11 01:49] LABS: Partial Thromboplastin Time 21.8 sec (22.0-30.0)
== END 2022-09-11 01:30 | disposition home or self-care (01) ==
LOC: EC 22:50
DX: R07.89 Other chest pain (principal); I25.10 Atherosclerotic heart disease of native coronary artery without angina pectoris; J44.9 Chronic obstructive pulmonary disease, unspecified; E11.9 Type 2 diabetes mellitus without complications; K21.9 Gastro-esophageal reflux disease without esophagitis; E78.5 Hyperlipidemia, unspecified; I10 Essential (primary) hypertension; I25.2 Old myocardial infarction; G47.30 Sleep apnea, unspecified; E07.9 Disorder of thyroid, unspecified; F32.A Depression, unspecified; F17.200 Nicotine dependence, unspecified, uncomplicated; F12.90 Cannabis use, unspecified, uncomplicated; Z79.890 Hormone replacement therapy; Z79.899 Other long term (current) drug therapy; Z88.2 Allergy status to sulfonamides; Z88.5 Allergy status to narcotic agent; Z91.030 Bee allergy status; Z88.6 Allergy status to analgesic agent; Z88.8 Allergy status to other drugs, medicaments and biological substances; Z91.040 Latex allergy status; Z86.73 Personal history of transient ischemic attack (TIA), and cerebral infarction without residual deficits; Z88.1 Allergy status to other antibiotic agents
CPT/HCPCS: 36415; 71046; 80053; 84484; 85025; 85610; 85730; 93005

== ENCOUNTER 2022-10-03 13:52 | Inpatient (IN) | payer OTHER ==
[2022-10-03] MEDS ORDERED: SODIUM CHLORIDE 0.9% 1,000 ML IV ONE ×2 (14:49→15:46)
[2022-10-03] MEDS ORDERED: DIPHENOX-ATROP 2.5-0.025 MG 1 EACH TAB PO STA (14:49)
[2022-10-03] MEDS ORDERED: ONDANSETRON 4 MG/2 ML VIAL IVP STA (14:49)
[2022-10-03 15:31] LABS: Albumin 4.3 g/dL (3.5-5.0); Calcium 9.4 mg/dL (8.4-10.2); Magnesium 2.5 mg/dL (1.6-2.3); Potassium 5.4 mmol/L (3.5-5.1); Total Bilirubin 0.4 mg/dL (0.2-1.3); Total Protein 6.9 g/dL (6.3-8.2)
[2022-10-03 15:38] LABS: Basophils % (A) 1 %; Eosinophils # (A) 0.2 k/uL (0-0.7); Eosinophils % (A) 3 %; HCT 35.7 % (34.0-46.0); HGB 11.7 gm/dL (11.4-16.0); Lymphocytes # (A) 1.4 k/uL (1.0-4.8); Lymphocytes % (A) 24 %; MCHC 32.8 g/dL (31.0-37.0); MCV 94.5 fL (80.0-100.0); Mean Platelet Volume 8.4; Monocytes # (A) 0.3 k/uL (0-1.0); Monocytes % (A) 4 %; Neutrophils # (A) 3.7 k/uL (1.3-7.7); Neutrophils % (A) 66 %; Platelet Count 273 k/uL (150-450); RBC 3.78 m/uL (3.80-5.40); RDW 13.7 % (11.5-15.5); WBC 5.7 k/uL (3.8-10.6)
[2022-10-03] MEDS ORDERED: INSULIN REGULAR 100 UNIT/ML VIAL (IV) IV ONE (15:46)
[2022-10-03] MEDS ORDERED: Potassium Replacement Protocol 1 EACH MISC MISCELLANE PRN (16:12)
[2022-10-03] MEDS ORDERED: Magnesium Replacement Protocol 1 EACH MISC MISCELLANE PRN (16:12)
[2022-10-03] MEDS ORDERED: DEXTROSE 50% SYRINGE 50 ML IVP PRN ×2 (16:12)
[2022-10-03] MEDS ORDERED: INSULIN REGULAR 100 UNIT in SODIUM CHLORIDE 0.9% 100 ML IV SCH ×2 (16:15→19:00)
--- NOTE | 2022-10-03 16:20 | XR ---
EXAMINATION TYPE: XR KUB DATE OF EXAM: 10/03/2022 4:07 PM INDICATION: Patient age:Female; 62 years old; Reason for study: Possible obstruction; COMPARISON: None. TECHNIQUE: One radiographic view of the abdomen was obtained. FINDINGS: The bowel gas pattern is nonspecific without dilated loops of small or large bowel. There i s no evidence for organomegaly or pneumoperitoneum. The osseous structures are intact. No abnormal calcifications are present. Fecal material and gas are demonstrated throughout the colon and rectum. IMPRESSION: Nonspecific bowel gas pattern without radiographic evidence for acute process. No evidence of obstruc tion.
[2022-10-03 16:43] LABS: Appearance,Urine Clear (Clear); Bilirubin,Urine Negative (Negative); Blood,Urine Negative (Negative); Color,Urine Light Yellow; Glucose,Urine (UA) 4+ (Negative); Ketones,Urine Negative (Negative); Leukocyte Esterase,Urine Negative (Negative); Nitrite,Urine Negative (Negative); Protein,Urine Negative (Negative); Urobilinogen,Urine <2.0 mg/dL (<2.0)
--- NOTE | 2022-10-03 16:47 | ED ---
General Adult HPI - General Chief complaint: Recheck/Abnormal Lab/Rx Stated complaint: dizzy, high blood sugar Time Seen by Provider: 10/03/22 14:00 Source: patient, RN notes reviewed, old records reviewed Mode of arrival: ambulatory Limitations: no limitations - History of Present Illness Initial comments: This is a 62-year-old female presents emergency department stating that she has been dizzy and been having quite a bit of diarrhea the last 2 days per patient states also been nauseated but has not vomited. Patient did not mention to me that her sugar was elevated but she didn't mention that to the nursing after receiving the patient. Patient denies any chest pain or difficulty breathing. Patient denies any recent fever chills or cough per patient denied any abdominal pain but again states she was nauseous and having diarrhea. Patient denied headache patient denied any numbness or weakness. - Related Data Home Medications Medication Instructions Recorded Confirmed Venlafaxine HCl [Effexor XR] 225 mg PO DAILY 10/21/16 10/03/22 Pantoprazole Sodium [Protonix] 40 mg PO BID 04/06/20 10/03/22 Cariprazine HCl [Vraylar] 1.5 mg PO HS 05/13/20 10/03/22 Isosorbide Dinitrate [Isordil] 10 mg PO BID 10/31/20 10/03/22 Meclizine [Antivert] 25 mg PO TID PRN 01/16/21 10/03/22 Nitroglycerin Sl Tabs [Nitrostat] 0.4 mg SL Q5M PRN 02/27/21 10/03/22 Ferrous Sulfate [Iron (65 MG 325 mg PO DAILY 10/02/21 10/03/22 Elemental)] Cetirizine HCl [Zyrtec] 10 mg PO DAILY 07/15/22 10/03/22 Cholecalciferol [Vitamin D3 (125 125 mcg PO TID 07/15/22 10/03/22 Mcg = 5000 Iu)] Gabapentin 300 mg PO TID 07/15/22 10/03/22 Glucagon [Baqsimi] 1 spray NASAL DIRECTED PRN 07/15/22 10/03/22 Ipratropium-Albuterol Nebulize 3 ml INHALATION RT-QID PRN 07/15/22 10/03/22 [Duoneb 0.5 mg-3 mg/3 ml Soln] Levothyroxine Sodium [Synthroid] 50 mcg PO DAILY 07/15/22 10/03/22 Levothyroxine Sodium [Synthroid] 200 mcg PO DAILY 07/15/22 10/03/22 Magnesium Oxide [Mag-Ox] 400 mg PO DAILY 07/15/22 10/03/22 Multivitamins, Thera [Multivitamin 1 tab PO DAILY 07/15/22 10/03/22 (formulary)] calcitrioL [Calcitriol] 0.25 mcg PO SA 07/15/22 10/03/22 methocarbamoL [Robaxin] 500 mg PO TID PRN 07/15/22 10/03/22 Cyclobenzaprine [Flexeril] 10 mg PO HS 09/02/22 10/03/22 Zolpidem Tartrate [Ambien] 5 mg PO HS PRN 09/02/22 10/03/22 Aspirin EC [Ecotrin Low Dose] 81 mg PO DAILY 10/03/22 10/03/22 Butalb/APAP/Caff 50-325-40Mg 1 tab PO BID PRN 10/03/22 10/03/22 [Fioricet 50-325-40] HYDROcodone/APAP 5-325MG [[place] 1 tab PO BID 10/03/22 10/03/22 5-325] INSULIN LISPRO (HumaLOG) [humaLOG] 6 units SQ AC-TID 10/03/22 10/03/22 INSULIN LISPRO (HumaLOG) [humaLOG] See Protocol SQ AC-TID 10/03/22 10/03/22 Insulin Glargine [Lantus Vial] 6 unit SQ BID 10/03/22 10/03/22 Sucralfate [Carafate] 1 gm PO ACHS 10/03/22 10/03/22 rOPINIRole HCL [Requip] 0.5 mg PO BID 10/03/22 10/03/22 traZODone HCL [Desyrel] 50 mg PO HS 10/03/22 10/03/22 Previous Rx's Medication Instructions Recorded Ticagrelor [Brilinta] 90 mg PO BID 60 Days #60 tab 07/20/22 Acetaminophen Tab [Tylenol] 650 mg PO Q6HR PRN tab 09/04/22 Metoprolol Succinate (ER) [Toprol 50 mg PO DAILY #30 tab 09/04/22 XL] Allergies Allergy/AdvReac Type Severity Reaction Status Date / Time grass pollen Allergy Unknown Verified 10/03/22 16:05 latex Allergy Rash/Hives Verified 10/03/22 16:05 Sulfa (Sulfonamide Allergy Rash/Hives/ Verified 10/03/22 16:05 Antibiotics) Swelling venom-honey bee Allergy Anaphylaxis Verified 10/03/22 16:05 morphine AdvReac Decreased Verified 10/03/22 16:05 Blood Pressure prochlorperazine edisylate AdvReac Vomiting Verified 10/03/22 16:05 [From Compazine] Review of Systems ROS Statement: Those systems with pertinent positive or pertinent negative responses have been documented in the HPI. ROS Other: All systems not noted in ROS Statement are negative. Past Medical History Past Medical History: Coronary Artery Disease (CAD), Cancer, COPD, CVA/TIA, Diabetes Mellitus, Deep Vein Thrombosis (DVT), Eye Disorder, GERD/Reflux, Hyperlipidemia, Hypertension, Myocardial Infarction (CA), Renal Disease, Rheumatoid Arthritis (RA), Sleep Apnea/CPAP/BIPAP, Syncope, Thyroid Disorder Additional Past Medical History / Comment(s): 09/16/16 with SBO with surgery/p ossible septic emboli with cavitary lesions bilateral lungs. 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 coli 2015 requiring PICC line insertion for IV antibiotics, restless leg syndrome, peripheral neur opathy. Hx bilateral glaucoma, hx syncope r/t low blood sugars. No CPAP use. pt states had high blood sugar 1 week ago and was seen an [facility]. Last Myocardial Infarction Date:: 2019 History of Any Multi-Drug Resistant Organisms: ESBL, MRSA, VRE Date of last positivie culture/infection: 05/07/16 ESBL, 05/15/16 VRE, MRSA 09/2017 - upper lip MDRO Source:: URINE E.COLI, EC GALLINARUM Past Surgical History: Appendectomy, Bowel Resection, Section, Heart Catheterization, Heart Catheterization With Stent, Hernia Repair Additional Past Surgical History / Comment(s): 09/30 exploratory laparotomy with lysis of adhesions, bowel resection d/t obstruction. repair incarcerated incisional hernia with abdominal washout, thyroidectomy(non functioning), heart cath 06/28 - 100% occluded, unable to stent, partial left nephrectomy for left kidney renal cell carcinoma, PICC line insertion (since removed), colonoscopy, bilateral cataract removal with lens implants, 2 Sections. cardiac Stent 03/2021 Past Anesthesia/Blood Transfusion Reactions: No Reported Reaction Date of Last Stent Placement:: 04/06/2021 Past Psychological History: Depression Smoking Status: Current every day smoker Past Alcohol Use History: None Reported Past Drug Use History: Marijuana - Past Family History Sister(s) Family Medical History: Cancer, Deep Vein Thrombosis (DVT) Additional Family Medical History / Comment(s): Patient has one sister that from liver cancer Brother(s) Family Medical History: Cancer, Deep Vein Thrombosis (DVT) Additional Family Medical History / Comment(s): Patient has 1 brother with past ETOH, past drug abuse, DVT's. She has a second brother that has from throat cancer. Daughter(s) Family Medical History: Diabetes Mellitus, Myocardial Infarction (CA) Additional Family Medical History / Comment(s): Daughter at 23 yrs old from massive CA. Father Family Medical History: Myocardial Infarction (CA) Additional Family Medical History / Comment(s): from mi at age 44 Mother Family Medical History: Cancer Additional Family Medical History / Comment(s): maeve breasts rcancer General Exam - General Exam Comments Initial Comments: GENERAL: Patient is well-developed and well-nourished. Patient is nontoxic and well- hydrated and is in mild distress. ENT: Neck is soft and supple. No significant lymphadenopathy is noted. Oropharynx is clear. Moist mucous membranes. Neck has full range of motion without eliciting any pain. EYES: The sclera were anicteric and conjunctiva were pink and moist. Extraocular movements were intact and pupils were equal round and reactive to light. Eyelids were unremarkable. PULMONARY: Unlabored respirations. Good breath sounds bilaterally. No audible rales rhonchi or wheezing was noted. CARDIOVASCULAR: There is a regular rate and rhythm without any murmurs gallops or rubs. ABDOMEN: Soft and nontender with normal bowel sounds. SKIN: Skin is clear with no lesions or rashes and otherwise unremarkable. NEUROLOGIC: Patient is alert and oriented x3. Cranial nerves II through XII are grossly intact. Motor and sensory are also intact. Normal speech, volume and content. Symmetrical smile. MUSCULOSKELETAL: Normal extremities with adequate strength and full range of motion. No lower extremity swelling or edema. No calf tenderness. LYMPHATICS: No significant lymphadenopathy is noted PSYCHIATRIC: Normal psychiatric evaluation. Limitations: no limitations Course Vital Signs 10/03/22 10/03/22 13:54 16:27 Temperature 97.4 F L Pulse Rate 69 86 Respiratory 20 18 Rate Blood Pressure 100/65 117/66 O2 Sat by Pulse 92 L 100 Oximetry Medical Decision Making - Medical Decision Making EKG was performed by myself EKG shows sinus rhythm at 83 bpm AL interval 232 QRS is 90 QT intervals 3 to anyone QTC is 4:30. Patient's EKG shows some ST segment elevation V1 and V2 and T-wave inversions in 1 and aVL all of which were seen her previous EKG. Was pt. sent in by a medical professional or institution (, PA, MEDICAL LABORATORY SPECIALIST, urgent care, hospital, or custodial...) When possible be specific @ -No Did you speak to anyone other than the patient for history (EMS, parent, family, police, friend...)? What history was obtained from this source @ -No Did you review nursing and triage notes (agree or disagree)? Why? @ -I reviewed and agree with nursing and triage notes Were old charts reviewed (outside hosp., previous admission, EMS record, old EKG, old radiological studies, urgent care reports/EKG's, custodial records)? Report findings @ -Reviewed patient's prior laboratory prior charts Differential Diagnosis (chest pain, altered mental status, abdominal pain women, abdominal pain men, vaginal bleeding, weakness, fever, dyspnea, syncope, headache, dizziness, GI bleed, back pain, seizure, CVA, palpatations, mental health, musculoskeletal)? @ -Differential Dizziness: Benign paroxysmal positional Vertigo, Menieres disease, otitis media, acoustic neuroma, vertebrobasilar insufficiency, cerebellar stroke, encephalitis, hypovolemic, arrhythmia, coronary artery syndrome, anemia, this is not meant to be an all-inclusive list EKG interpreted by me (3pts min.). @ -As above X-rays interpreted by me (1pt min.). @ -KUB was interpreted by myself as no acute abnormalities CT interpreted by me (1pt min.). @ -None done U/S interpreted by me (1pt. min.). @ -None done What testing was considered but not performed or refused? (CT, X-rays, U/S, labs)? Why? @ -None What meds were considered but not given or refused? Why? @ -None Did you discuss the management of the patient with other professionals (professionals i.e. Dr., PA, MEDICAL LABORATORY SPECIALIST, lab, RT, psych nurse, social media marketing analyst, brine tank tender, teacher, accounts officer, protective services case worker)? Give summary @ -I spoke with [facility] agreed to admit the patient a dmitted the patient wrote admitting orders Was smoking cessation discussed for >3mins.? @ -No Was critical care preformed (if so, how long)? @ -35 minutes Were there social determinants of health that impacted care today? How? (Homelessness, low income, unemployed, alcoholism, drug addiction, transportati on, low edu. Level, literacy, decrease access to med. care, fdc, rehab)? @ -No Was there de-escalation of care discussed even if they declined (Discuss DNR or withdrawal of care, Hospice)? DNR status @ -No What co-morbidities impacted this encounter? (DM, HTN, Smoking, COPD, CAD, Cancer, CVA, ARF, Chemo, Hep., AIDS, mental health diagnosis, sleep apnea, morbid obesity)? @ -None Was patient admitted / discharged? Hospital course, mention meds given and route, prescriptions, significant lab abnormalities, going to OR and other pertinent info. @ -Patient's blood sugar was over 700. I gave the patient insulin bolus after gave the patient do liters of normal saline. Patient also was placed on an insulin drip. I spoke with [facility] they agreed to admit the patient admitted the patient wrote admitting orders. Undiagnosed new problem with uncertain prognosis? @ -No Drug Therapy requiring intensive monitoring for toxicity (Heparin, Nitro, Insulin, Cardizem)? @ -No Were any procedures done? @ -No Diagnosis/symptom? @ -Hyperglycemic hyperosmolar nonketotic syndrome Acute, or Chronic, or Acute on Chronic? @ -Acute Uncomplicated (without systemic symptoms) or Complicated (systemic symptoms)? @ -Complicated Side effects of treatment? @ -No Exacerbation, Progression, or Severe Exacerbation? @ -No Poses a threat to life or bodily function? How? (Chest pain, USA, CA, pneumonia, PE, COPD, DKA, ARF, appy, cholecystitis, CVA, Diverticulitis, Homicidal, Suicidal, threat to staff... and all critical care pts) @ -This could lead to severe dehydration or electrolyte abnormalities Diagnosis/symptom? @ -Diarrhea Acute, or Chronic, or Acute on Chronic? @ -Acute Uncomplicated (without systemic symptoms) or Complicated (systemic symptoms)? @ -Uncomplicated Side effects of treatment? @ -none Exacerbation, Progression, or Severe Exacerbation] @ -no Poses a threat to life or bodily function? @ -no - Lab Data Result diagrams: 10/03/22 14:51 10/03/22 14:51 Lab Results 10/03/22 10/03/22 10/03/22 Range/Units 14:51 14:51 14:51 WBC 5.7 (3.8-10.6) k/uL RBC 3.78 L (3.80-5.40) m/uL Hgb 11.7 (11.4-16.0) gm/dL Hct 35.7 (34.0-46.0) % MCV 94.5 (80.0-100.0) fL MCH 31.0 (25.0-35.0) pg MCHC 32.8 (31.0-37.0) g/dL RDW 13.7 (11.5-15.5) % Plt Count 273 (150-450) k/uL MPV 8.4 Neutrophils % 66 % Lymphocytes % 24 % Monocytes % 4 % Eosinophils % 3 % Basophils % 1 % Neutrophils # 3.7 (1.3-7.7) k/uL Lymphocytes # 1.4 (1.0-4.8) k/uL Monocytes # 0.3 (0-1.0) k/uL Eosinophils # 0.2 (0-0.7) k/uL Basophils # 0.0 (0-0.2) k/uL Sodium 124 L (137-145) mmol/L Potassium 5.4 H (3.5-5.1) mmol/L Chloride 88 L (98-107) mmol/L Carbon Dioxide 22 (22-30) mmol/L Anion Gap 14 mmol/L BUN 45 H (7-17) mg/dL Creatinine 2.12 H (0.52-1.04) mg/dL Est GFR (CKD-EPI)AfAm 28 (>60 ml/min/1.73 sqM) Est GFR (CKD-EPI)NonAf 24 (>60 ml/min/1.73 sqM) Glucose 743 H* (74-99) mg/dL POC Glucose (mg/dL) (70-110) mg/dL POC Glu Burn Out Scarfing Operator ID Calcium 9.4 (8.4-10.2) mg/dL Magnesium 2.5 H (1.6-2.3) mg/dL Total Bilirubin 0.4 (0.2-1.3) mg/dL AST 22 (14-36) U/L ALT 19 (4-34) U/L Alkaline Phosphatase 133 H (38-126) U/L Troponin I (0.000-0.034) ng/mL Total Protein 6.9 (6.3-8.2) g/dL Albumin 4.3 (3.5-5.0) g/dL Urine Color Urine Appearance (Clear) Urine pH (5.0-8.0) Ur Specific [place] (1.001-1.035) Urine Protein (Negative) Urine Glucose (UA) (Negative) Urine Ketones (Negative) Urine Blood (Negative) Urine Nitrite (Negative) Urine Bilirubin (Negative) Urine Urobilinogen (<2.0) mg/dL Ur Leukocyte Esterase (Negative) Acetone, Qual Negative (Negative) 10/03/22 10/03/22 10/03/22 Range/Units 14:51 16:27 17:22 WBC (3.8-10.6) k/uL RBC (3.80-5.40) m/uL Hgb (11.4-16.0) gm/dL Hct (34.0-46.0) % MCV (80.0-100.0) fL MCH (25.0-35.0) pg MCHC (31.0-37.0) g/dL RDW (11.5-15.5) % Plt Count (150-450) k/uL MPV Neutrophils % % Lymphocytes % % Monocytes % % Eosinophils % % Basophils % % Neutrophils # (1.3-7.7) k/uL Lymphocytes # (1.0-4.8) k/uL Monocytes # (0-1.0) k/uL Eosinophils # (0-0.7) k/uL Basophils # (0-0.2) k/uL Sodium (137-145) mmol/L Potassium (3.5-5.1) mmol/L Chloride (98-107) mmol/L Carbon Dioxide (22-30) mmol/L Anion Gap mmol/L BUN (7-17) mg/dL Creatinine (0.52-1.04) mg/dL Est GFR (CKD-EPI)AfAm (>60 ml/min/1.73 sqM) Est GFR (CKD-EPI)NonAf (>60 ml/min/1.73 sqM) Glucose (74-99) mg/dL POC Glucose (mg/dL) 549 H (70-110) mg/dL POC Glu Burn Out Scarfing Operator ID Yanci Mondragon Calcium (8.4-10.2) mg/dL Magnesium (1.6-2.3) mg/dL Total Bilirubin (0.2-1.3) mg/dL AST (14-36) U/L ALT (4-34) U/L Alkaline Phosphatase (38-126) U/L Troponin I <0.012 (0.000-0.034) ng/mL Total Protein (6.3-8.2) g/dL Albumin (3.5-5.0) g/dL Urine Color Light Yellow Urine Appearance Clear (Clear) Urine pH 5.0 (5.0-8.0) Ur Specific [place] 1.020 (1.001-1.035) Urine Protein Negative (Negative) Urine Glucose (UA) 4+ H (Negative) Urine Ketones Negative (Negative) Urine Blood Negative (Negative) Urine Nitrite Negative (Negative) Urine Bilirubin Negative (Negative) Urine Urobilinogen <2.0 (<2.0) mg/dL Ur Leukocyte Esterase Negative (Negative) Acetone, Qual (Negative) Disposition Clinical Impression: Hyperosmolar hyperglycemic state (HHS) Disposition: ADMITTED IP TO THIS HOSP Referrals: Sahra Elder MD [Primary Care Provider] - 1-2 days Time of Disposition: 17:34
[2022-10-03 17:24] LABS: Glucose,Whole Blood 549 mg/dL (70-110)
[2022-10-03 18:36] LABS: Glucose,Whole Blood 429 mg/dL (70-110)
[2022-10-03] MEDS: SODIUM CHLORIDE 0.9% 1,000 ML IV SCH ×2 (19:06→23:55)
[2022-10-03] MEDS ORDERED: NITROGLYCERIN SL TABS 0.4 MG TAB SUBLINGUAL PRN (19:35)
[2022-10-03] MEDS ORDERED: IPRATROPIUM-ALBUTEROL 3 ML NEB INHALATION PRN (19:35)
[2022-10-03] MEDS ORDERED: MECLIZINE 25 MG TAB PO PRN (19:35)
[2022-10-03] MEDS ORDERED: ACETAMINOPHEN TAB 325 MG TAB PO PRN (19:35)
[2022-10-03] MEDS: INSULIN REGULAR 100 UNIT in SODIUM CHLORIDE 0.9% 100 ML IV SCH (20:55)
[2022-10-03 21:00] LABS: Glucose,Whole Blood 134 mg/dL (70-110)
[2022-10-03] MEDS ORDERED: ISOSORBIDE DINITRATE 10 MG TAB PO SCH (21:00)
[2022-10-03 21:06] LABS: Calcium 8.7 mg/dL (8.4-10.2); Potassium 3.9 mmol/L (3.5-5.1)
[2022-10-03] MEDS ORDERED: D5-0.45% NACL WITH KCL 20MEQ/L 1,000 ML IV SCH (21:30)
[2022-10-03 21:53] LABS: Glucose,Whole Blood 79 mg/dL (70-110)
[2022-10-03] MEDS: FAMOTIDINE 20 MG TAB PO SCH (22:03)
[2022-10-03] MEDS: SUCRALFATE 1 GM TAB PO SCH (22:03)
[2022-10-03] MEDS: TICAGRELOR 90 MG TAB PO SCH (22:03)
[2022-10-03 22:11] LABS: Glucose,Whole Blood 112 mg/dL (70-110)
[2022-10-03 22:40] LABS: Glucose,Whole Blood 131 mg/dL (70-110)
[2022-10-03 23:32] LABS: Glucose,Whole Blood 148 mg/dL (70-110)
[2022-10-04 00:05] LABS: Glucose,Whole Blood 186 mg/dL (70-110)
[2022-10-04 01:06] LABS: Potassium 4.5 mmol/L (3.5-5.1)
[2022-10-04 01:16] LABS: Glucose,Whole Blood 192 mg/dL (70-110)
[2022-10-04] MEDS ORDERED: INSULIN NPH 100 UNIT/ML 10 ML VIAL SQ ONE (02:00)
[2022-10-04 02:05] LABS: Glucose,Whole Blood 195 mg/dL (70-110)
[2022-10-04] MEDS: SODIUM CHLORIDE 0.9% 1,000 ML IV SCH ×2 (02:18→18:54)
[2022-10-04] MEDS: INSULIN ASPART (NovoLOG) 100 UNIT/ML VIAL SQ SCH ×8 (02:18→20:12)
[2022-10-04 03:19] LABS: Glucose,Whole Blood 177 mg/dL (70-110)
[2022-10-04] MEDS: LEVOTHYROXINE 50 MCG TAB PO SCH (06:21)
[2022-10-04] MEDS: SUCRALFATE 1 GM TAB PO SCH ×4 (06:21→20:52)
[2022-10-04] MEDS: LEVOTHYROXINE 100 MCG TAB PO SCH (06:21)
[2022-10-04 07:06] LABS: Glucose,Whole Blood 203 mg/dL (70-110)
[2022-10-04] MEDS: MULTIVITAMINS, THERA 1 EACH TAB PO SCH (08:13)
[2022-10-04] MEDS: TICAGRELOR 90 MG TAB PO SCH ×2 (08:14→20:52)
[2022-10-04] MEDS: ASPIRIN 81 MG PO SCH (08:14)
[2022-10-04] MEDS: LORATADINE 10 MG TAB PO SCH (08:14)
[2022-10-04] MEDS: INSULIN DETEMIR (LEVEMIR) 100 UNIT/ML SYR SQ SCH (08:14)
[2022-10-04] MEDS: FERROUS SULFATE 325 MG TAB PO SCH (08:14)
[2022-10-04] MEDS ORDERED: METOPROLOL SUCCINATE (ER) 50 MG TAB.ER.24H PO SCH (09:00)
[2022-10-04] MEDS ORDERED: SODIUM CHLORIDE 0.9% 1,000 ML IV ONE (09:40)
--- NOTE | 2022-10-04 09:43 | P.HPIM ---
History of Present Illness This is a pleasant 62 years old female with multiple medical problems, Coronary Artery Disease (CAD), COPD, CVA/TIA, Diabetes Mellitus, Deep Vein Thrombosis (DVT), GERD/Reflux, Hyperlipidemia, Hypertension, Rheumatoid Arthritis (RA), Sleep Apnea/CPAP/BIPAP, Syncope, hypothyroidism, left renal cell carcinoma with partial nephrectomy, CVA 4, last 5 yrs ago, no residual effects, DVT left leg 7-8 yrs ago, chronic back pain, degenerative disks, hx UTI with sepsis secondary to ESBL producing E. coli , restless leg syndrome, peripheral neuropathy. Hx bilateral glaucoma, Patient presents because she was feeling dizzy and felt like presyncope for the last 2 days associated with diarrhea and abdominal pain and also for 2 days. She had 5-6 bouts of bowel movement yesterday with no blood. Her pain is periumbilical, nonradiating was severe admission but now 5/10, Associated with nausea but no vomiting. She has low appetite. She denies chest pain or dyspnea currently. She states she has some dyspnea 2 days ago. Also she is complaining of from cough and green phlegm and runny nose but no sore throat. No fever. She has little dysuria but no urgency. No headache or weakness or numbness or confusion. She quit smoking about 10 days ago because her PCP Dr. Elder told her she has a spot in her lung. She denies alcohol. She uses marijuana occasionally. Once or twice a week. Patient is hypotensive this morning 91/59, baseline systolic blood pressure is around 100-120. Glucose is controlled. CBC is unremarkable. TSH is normal 1.5 Creatinine is elevated 2.1, common down to 1.4, baseline creatinine 0.7-1.1 Glucose on admission was 743, now is looking better. Liver enzymes not elevated. Troponin is negative 1. EKG showing criteria for LVH, normal sinus rhythm at 83, no significant ST-T changes, looks similar to old EKG KUB: Nonspecific bowel gas pattern Review of Systems Review of systems CONSTITUTIONAL: No fever, no malaise, no fatigue. HEENT: No recent visual problems or hearing problems. Denied any sore throat. CARDIOVASCULAR: No orthopnea, PND, no palpitations, no syncope. PULMONARY: No shortness of breath, no hemoptysis. GASTROINTESTINAL: No constipation, no vomiting, Normoactive bowel sounds. NEUROLOGICAL: No headaches, no weakness, no numbness. HEMATOLOGICAL: Denies any bleeding or petechiae. GENITOURINARY: Denies any burning micturition, frequency, or urgency. MUSCULOSKELETAL/RHEUMATOLOGICAL: Denies any joint pain, swelling, or any muscle pain. ENDOCRINE: Denies any polyuria or polydipsia. Past Medical History Past Medical History: Coronary Artery Disease (CAD), Cancer, COPD, CVA/TIA, Diabetes Mellitus, Deep Vein Thrombosis (DVT), Eye Disorder, GERD/Reflux, Hyperlipidemia, Hypertension, Myocardial Infarction (CT), Renal Disease, Rheumatoid Arthritis (RA), Sleep Apnea/CPAP/BIPAP, Syncope, Thyroid Disorder Additional Past Medical History / Comment(s): 09/16/16 with SBO with surgery/possible septic emboli with cavitary lesions bilateral lungs. 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 coli 2015 requiring PICC line insertion for IV antibiotics, restless leg syndrome, peripheral neuropathy. Hx bilateral glaucoma, hx syncope r/t low blood sugars. No CPAP use. pt states had high blood sugar 1 week ago and was seen an [facility]. Last Myocardial Infarction Date:: 2019 History of Any Multi-Drug Resistant Organisms: ESBL, MRSA, VRE Date of last positivie culture/infection: 05/07/16 ESBL, 05/15/16 VRE, MRSA 09/2017 - upper lip MDRO Source:: URINE E.COLI, EC GALLINARUM Past Surgical History: Appendectomy, Bowel Resection, Section, Heart Catheterization, Heart Catheterization With Stent, Hernia Repair Additional Past Surgical History / Comment(s): 09/30 exploratory laparotomy with lysis of adhesions, bowel resection d/t obstruction. repair incarcerated incisional hernia with abdominal washout, thyroidectomy(non functioning), heart cath 06/28 - 100% occluded, unable to stent, partial left nephrectomy for left kidney renal cell carcinoma, PICC line insertion (since removed), colonoscopy, bilateral cataract removal with lens implants, 2 Sections. cardiac Stent 03/2021 Past Anesthesia/Blood Transfusion Reactions: No Reported Reaction Date of Last Stent Placement:: 04/06/2021 Past Psychological History: Depression Smoking Status: Current every day smoker Past Alcohol Use History: None Reported Additional Past Alcohol Use History / Comment(s): STARTED SMOKING AT AGE 8, smoked one to one and half packs per day for 50 years. Quit smoking 2 months ago PT STATES SMOKES 3-4 CIGS PER DAY TRYING TO QUIT. Past Drug Use History: Marijuana Additional Drug Use History / Comment(s): Uses marijuana daily. Hx of addiction to cocaine, has not used in 20 years. - Past Family History Sister(s) Family Medical History: Cancer, Deep Vein Thrombosis (DVT) Additional Family Medical History / Comment(s): Patient has one sister that from liver cancer. Brother(s) Family Medical History: Cancer, Deep Vein Thrombosis (DVT) Additional Family Medical History / Comment(s): Patient has 1 brother with past ETOH, past drug abuse, DVTs. She has a second brother that has from throat cancer. Daughter(s) Family Medical History: Diabetes Mellitus, Myocardial Infarction (CT) Additional Family Medical History / Comment(s): Daughter at 23 yrs old from massive CT. Father Family Medical History: Myocardial Infarction (CT) Additional Family Medical History / Comment(s): from CT at age 44 Mother Family Medical History: Cancer Additional Family Medical History / Comment(s): B/L breast cancer Medications and Allergies Home Medications Medication Instructions Recorded Confirmed Type Venlafaxine HCl [Effexor XR] 225 mg PO DAILY 10/21/16 10/03/22 History Pantoprazole Sodium [Protonix] 40 mg PO BID 04/06/20 10/03/22 History Cariprazine HCl [Vraylar] 1.5 mg PO HS 05/13/20 10/03/22 History Isosorbide Dinitrate [Isordil] 10 mg PO BID 10/31/20 10/03/22 History Meclizine [Antivert] 25 mg PO TID PRN 01/16/21 10/03/22 History Nitroglycerin Sl Tabs [Nitrostat] 0.4 mg SL Q5M PRN 02/27/21 10/03/22 History Ferrous Sulfate [Iron (65 MG 325 mg PO DAILY 10/02/21 10/03/22 History Elemental)] Cetirizine HCl [Zyrtec] 10 mg PO DAILY 07/15/22 10/03/22 History Cholecalciferol [Vitamin D3 (125 125 mcg PO TID 07/15/22 10/03/22 History Mcg = 5000 Iu)] Gabapentin 300 mg PO TID 07/15/22 10/03/22 History Glucagon [Baqsimi] 1 spray NASAL DIRECTED PRN 07/15/22 10/03/22 History Ipratropium-Albuterol Nebulize 3 ml INHALATION RT-QID PRN 07/15/22 10/03/22 History [Duoneb 0.5 mg-3 mg/3 ml Soln] Levothyroxine Sodium [Synthroid] 50 mcg PO DAILY 07/15/22 10/03/22 History Levothyroxine Sodium [Synthroid] 200 mcg PO DAILY 07/15/22 10/03/22 History Magnesium Oxide [Mag-Ox] 400 mg PO DAILY 07/15/22 10/03/22 History Multivitamins, Thera [Multivitamin 1 tab PO DAILY 07/15/22 10/03/22 History (formulary)] calcitrioL [Calcitriol] 0.25 mcg PO SA 07/15/22 10/03/22 History methocarbamoL [Robaxin] 500 mg PO TID PRN 07/15/22 10/03/22 History Ticagrelor [Brilinta] 90 mg PO BID 60 Days #60 tab 07/20/22 10/03/22 Rx Cyclobenzaprine [Flexeril] 10 mg PO HS 09/02/22 10/03/22 History Zolpidem Tartrate [Ambien] 5 mg PO HS PRN 09/02/22 10/03/22 History Acetaminophen Tab [Tylenol] 650 mg PO Q6HR PRN tab 09/04/22 10/03/22 Rx Metoprolol Succinate (ER) [Toprol 50 mg PO DAILY #30 tab 09/04/22 10/03/22 Rx XL] Aspirin EC [Ecotrin Low Dose] 81 mg PO DAILY 10/03/22 10/03/22 History Butalb/APAP/Caff 50-325-40Mg 1 tab PO BID PRN 10/03/22 10/03/22 History [Fioricet 50-325-40] HYDROcodone/APAP 5-325MG [[place] 1 tab PO BID 10/03/22 10/03/22 History 5-325] INSULIN LISPRO (HumaLOG) [humaLOG] 6 units SQ AC-TID 10/03/22 10/03/22 History INSULIN LISPRO (HumaLOG) [humaLOG] See Protocol SQ AC-TID 10/03/22 10/03/22 History Insulin Glargine [Lantus Vial] 6 unit SQ BID 10/03/22 10/03/22 History Sucralfate [Carafate] 1 gm PO ACHS 10/03/22 10/03/22 History rOPINIRole HCL [Requip] 0.5 mg PO BID 10/03/22 10/03/22 History traZODone HCL [Desyrel] 50 mg PO HS 10/03/22 10/03/22 History Allergies Allergy/AdvReac Type Severity Reaction Status Date / Time grass pollen Allergy Unknown Verified 10/03/22 16:05 latex Allergy Rash/Hives Verified 10/03/22 16:05 Sulfa (Sulfonamide Allergy Rash/Hives/ Verified 10/03/22 16:05 Antibiotics) Swelling venom-honey bee Allergy Anaphylaxis Verified 10/03/22 16:05 morphine AdvReac Decreased Verified 10/03/22 16:05 Blood Pressure prochlorperazine edisylate AdvReac Vomiting Verified 10/03/22 16:05 [From Compazine] Physical Exam Vitals: Vital Signs Temp Pulse Pulse Resp BP BP Pulse Ox 10/04/22 08:11 98.3 F 89 18 91/59 94 L 10/04/22 03:40 98.0 F 77 16 90/55 99 10/03/22 23:40 97.9 F 80 16 92/60 90 L 10/03/22 22:39 77 20 93/56 99 10/03/22 22:04 80 18 91/50 97 10/03/22 21:04 83 18 83/62 98 10/03/22 19:51 88 18 107/56 98 10/03/22 16:27 86 18 117/66 100 10/03/22 13:54 97.4 F L 69 20 100/65 92 L Intake and Output 10/03/22 10/04/22 10/04/22 22:59 06:59 14:59 Intake Total 0.559 12.562 Balance 0.559 12.562 Intake: IV 10 Invasive Line 1 10 Intake, IV Titration 0.559 2.562 Amount Insulin Regular 100 unit 0.559 2.562 In Sodium Chloride 0.9% 100 ml @ 0.1 UNITS/KG/HR 5.589 mls/hr IV .Q18H5M DURGA Rx#:[id number] Other: # Voids 1 1 Weight 55.338 kg GENERAL: The patient is alert and oriented x3, not in any acute distress. Well developed, well nourished. HEENT: Pupils are round and equally reacting to light. EOMI. No scleral icterus. No conjunctival pallor. Normocephalic, atraumatic. No pharyngeal erythema. No thyromegaly. CARDIOVASCULAR: S1 and S2 present. No murmurs, rubs, or gallops. PULMONARY: Chest is clear to auscultation, no wheezing or crackles. -ABDOMEN: Soft, mild epigastric tenderness stended, normoactive bowel sounds. No palpable organomegaly. MUSCULOSKELETAL: No joint swelling or deformity. EXTREMITIES: No cyanosis, clubbing, or pedal edema. NEUROLOGICAL: Gross neurological examination did not reveal any focal deficits. SKIN: No rashes. no petechiae. Results CBC & Chem 7: 10/03/22 14:51 10/03/22 23:59 Labs: Abnormal Lab Results - Last 24 Hours (Table) 10/03/22 10/03/22 10/03/22 Range/Units 14:51 14:51 16:27 RBC 3.78 L (3.80-5.40) m/uL Sodium 124 L (137-145) mmol/L Potassium 5.4 H (3.5-5.1) mmol/L Chloride 88 L (98-107) mmol/L BUN 45 H (7-17) mg/dL Creatinine 2.12 H (0.52-1.04) mg/dL Glucose 743 H* (74-99) mg/dL POC Glucose (mg/dL) (70-110) mg/dL Magnesium 2.5 H (1.6-2.3) mg/dL Alkaline Phosphatase 133 H (38-126) U/L Urine Glucose (UA) 4+ H (Negative) 10/03/22 10/03/22 10/03/22 Range/Units 17:22 18:34 20:17 RBC (3.80-5.40) m/uL Sodium 134 L (137-145) mmol/L Potassium (3.5-5.1) mmol/L Chloride (98-107) mmol/L BUN 38 H (7-17) mg/dL Creatinine 1.61 H (0.52-1.04) mg/dL Glucose 181 H (74-99) mg/dL POC Glucose (mg/dL) 549 H 429 H (70-110) mg/dL Magnesium (1.6-2.3) mg/dL Alkaline Phosphatase (38-126) U/L Urine Glucose (UA) (Negative) 10/03/22 10/03/22 10/03/22 Range/Units 20:53 20:59 22:38 RBC (3.80-5.40) m/uL Sodium (137-145) mmol/L Potassium (3.5-5.1) mmol/L Chloride (98-107) mmol/L BUN (7-17) mg/dL Creatinine (0.52-1.04) mg/dL Glucose (74-99) mg/dL POC Glucose (mg/dL) 112 H 134 H 131 H (70-110) mg/dL Magnesium (1.6-2.3) mg/dL Alkaline Phosphatase (38-126) U/L Urine Glucose (UA) (Negative) 10/03/22 10/03/22 10/04/22 Range/Units 23:26 23:59 00:04 RBC (3.80-5.40) m/uL Sodium 134 L (137-145) mmol/L Potassium (3.5-5.1) mmol/L Chloride (98-107) mmol/L BUN 36 H (7-17) mg/dL Creatinine 1.47 H (0.52-1.04) mg/dL Glucose 143 H (74-99) mg/dL POC Glucose (mg/dL) 148 H 186 H (70-110) mg/dL Magnesium (1.6-2.3) mg/dL Alkaline Phosphatase (38-126) U/L Urine Glucose (UA) (Negative) 10/04/22 10/04/22 10/04/22 Range/Units 01:15 02:04 03:16 RBC (3.80-5.40) m/uL Sodium (137-145) mmol/L Potassium (3.5-5.1) mmol/L Chloride (98-107) mmol/L BUN (7-17) mg/dL Creatinine (0.52-1.04) mg/dL Glucose (74-99) mg/dL POC Glucose (mg/dL) 192 H 195 H 177 H (70-110) mg/dL Magnesium (1.6-2.3) mg/dL Alkaline Phosphatase (38-126) U/L Urine Glucose (UA) (Negative) 10/04/22 Range/Units 07:04 RBC (3.80-5.40) m/uL Sodium (137-145) mmol/L Potassium (3.5-5.1) mmol/L Chloride (98-107) mmol/L BUN (7-17) mg/dL Creatinine (0.52-1.04) mg/dL Glucose (74-99) mg/dL POC Glucose (mg/dL) 203 H (70-110) mg/dL Magnesium (1.6-2.3) mg/dL Alkaline Phosphatase (38-126) U/L Urine Glucose (UA) (Negative) Thrombosis Risk Factor Assmnt - Choose All That Apply Any of the Below Risk Factors Present?: Yes Each Factor Represents 1 point: Abnormal pulmonary function (COPD) Other Risk Factors: Yes Each Risk Factor Represents 2 Points: Age 61-74 years Each Risk Factor Represents 3 Points: History of DVT/PE Other congenital or acquired thrombophilia - If yes, enter type in comment: No Thrombosis Risk Factor Assessment Total Risk Factor Score: 6 Thrombosis Risk Factor Assessment Level: High Risk Assessment and Plan Assessment: Hypotension with dizziness Diabetes mellitus with hyperglycemia Acute kidney injury on chronic kidney disease, improvement Hypertension hyperlipidemia chronic kidney disease stage III history of left renal cell carcinoma status post left nephrectomy History of sleep apnea Hypothyroidism History of left renal carcinoma with partial nephrectomy History of stroke, no residual effect History of coronary artery disease COPD, not active issue History of coronary artery disease status post stent, last one was on March 2022 Specimens abuse with marijuana. Plan: Continue with aspirin and brilinita Continue with IV fluid, give bolus of normal saline Check CT of the abdomen without IV contrast check for C. diff Check UA and chest x-ray Check TSH, serum cortisol and procalcitonin for morning labs and repeat labs this morning Labs and medication were reviewed.. Continue same treatment. Continue with symptomatic treatment. Resume home medication. Monitor labs and vitals. DVT and GI prophylaxis. Further recommendations as per clinical course of the patient DVT prophylaxis: Subcutaneous heparin GI Prophylaxis: Pepcid Prognosis is guarded
--- NOTE | 2022-10-04 10:29 | XR ---
EXAMINATION TYPE: XR chest 2V DATE OF EXAM: 10/04/2022 COMPARISON: 09/11/2022 HISTORY: Cough TECHNIQUE: Frontal and lateral views of the chest are obtained. FINDINGS: The heart size is normal. The cardiomediastinal silhouette and pulmonary vasculature are within elen l limits. There is no focal consolidation, significant pleural effusion, or pneumothorax there is a s table calcified granuloma within the left lower lobe. There are 8mm rounded densities projecting over the bilateral humerus and just superior to the left clavicle. IMPRESSION: 1. No acute cardiopulmonary process. 2. Rounded densities projecting over the bilateral humerus and superior to the left clavicle of uncle ar etiology, as described above. This may be external to the patient.
[2022-10-04] MEDS: IOPAMIDOL CONTRAST (ORAL USE) VIAL PO PRN ×2 (11:07→11:54)
[2022-10-04 11:27] LABS: Glucose,Whole Blood 298 mg/dL (70-110)
[2022-10-04 11:38] LABS: Basophils % (A) 0 %; Eosinophils # (A) 0.3 k/uL (0-0.7); Eosinophils % (A) 6 %; HCT 32.3 % (34.0-46.0); HGB 10.7 gm/dL (11.4-16.0); Lymphocytes # (A) 1.3 k/uL (1.0-4.8); Lymphocytes % (A) 27 %; MCH 30.3 pg (25.0-35.0); MCHC 33.2 g/dL (31.0-37.0); MCV 91.4 fL (80.0-100.0); Mean Platelet Volume 8.3; Monocytes # (A) 0.3 k/uL (0-1.0); Monocytes % (A) 6 %; Neutrophils # (A) 2.8 k/uL (1.3-7.7); Neutrophils % (A) 60 %; Platelet Count 227 k/uL (150-450); RBC 3.54 m/uL (3.80-5.40); RDW 13.7 % (11.5-15.5); WBC 4.7 k/uL (3.8-10.6)
[2022-10-04 11:53] LABS: ALT 15 U/L (4-34); AST 24 U/L (14-36); African American GFR (CKD) 62 (>60 ml/min/1.73 sqM); Albumin 3.2 g/dL (3.5-5.0); Alkaline Phosphatase 93 U/L (38-126); Anion Gap 8 mmol/L; Bilirubin,Unconjugated 0.1 mg/dL (0.0-1.1); Blood Urea Nitrogen 29 mg/dL (7-17); Calcium 8.2 mg/dL (8.4-10.2); Carbon Dioxide 22 mmol/L (22-30); Chloride 103 mmol/L (98-107); Glucose 249 mg/dL (74-99); Non-African American GFR(CKD) 54 (>60 ml/min/1.73 sqM); Phosphorus 3.3 mg/dL (2.5-4.5); Potassium 5.1 mmol/L (3.5-5.1); Sodium 133 mmol/L (137-145); Total Bilirubin 0.1 mg/dL (0.2-1.3); Total Protein 5.7 g/dL (6.3-8.2)
--- NOTE | 2022-10-04 13:34 | CT ---
EXAMINATION TYPE: CT abdomen pelvis wo con DATE OF EXAM: 10/04/2022 HISTORY: Abdomen pain and diarrhea CT DLP: 464.2 mGycm. Automated Exposure Control for Dose Reduction was Utilized. TECHNIQUE: CT scan of the abdomen and pelvis is performed with oral but without IV contrast. COMPARISON: CT October 05, 2021 [address] older [address]s FINDINGS: Within the limitations of a non-contrast study, the following observations are made. LUNG BASES: There is a 8mm calcified nodule or benign granuloma with calcified left hilar lymph nodes in the peripheral left lower lobe redemonstrated. Findings consistent with old granulomatous disease . Calcification in the left ventricular apex again seen. [id number] left atrial and ventricular dilatation is redemonstrated. LIVER/GB: Pneumobilia on the left hepatic lobe redemonstrated. No new biliary dilatation. Suspect con tracted gallbladder with nondependent air axial image 25. PANCREAS: No significant abnormality is seen. SPLEEN: No significant abnormality is seen. ADRENALS: No significant abnormality is seen. KIDNEYS: There are adjacent renal calculi or large calculus in the upper to midpole left kidney redem onstrated. Some cortical volume loss in the upper to midpole level of the left kidney is redemonstrat ed. Stable round 1.6 cm prominence laterally from the upper pole left kidney favors retained cortex a xial image 25. No right-sided renal calculi. Mild pyelocaliectasis. No hydroureter. Possible UPJ stricture or stenos is. Correlate clinically. BOWEL: Oral contrast reaches the terminal ileum making evaluation of the distal bowel slightly subopt imal. No suspicious small or large bowel dilatation. GENITAL ORGANS: Anteverted uterus. LYMPH NODES: No greater than 1cm abdominal or pelvic lymph nodes are appreciated. OSSEOUS STRUCTURES: Persistent moderate to severe disc space narrowing with endplate sclerosis at the L1-L2 level. Persistent grade 1 anterolisthesis of L5 on S1. Bilateral pars defect noted. Advanced d isc space narrowing at this level redemonstrated. Vertical lucency with surrounding sclerosis involvi ng the L3 vertebra is redemonstrated. Mild height loss again seen. Pathologic fracture at this level cannot be excluded. No significant change from most recent CT. Multilevel disc space narrowing and va cuum disc phenomenon in the lower thoracic spine redemonstrated. OTHER: Moderate calcified plaque of the aorta extends into branch vessels. IMPRESSION: No bowel obstruction. No significant new or acute finding identified to account for patie nt's symptoms from most recent CT.
[2022-10-04 13:38] LABS: Glucose,Whole Blood 274 mg/dL (70-110)
[2022-10-04 14:48] VITALS: BMI 21.6
[2022-10-04 15:08] LABS: Appearance,Urine Clear (Clear); Bilirubin,Urine Negative (Negative); Blood,Urine Negative (Negative); Color,Urine Yellow; Glucose,Urine (UA) 4+ (Negative); Ketones,Urine Negative (Negative); Leukocyte Esterase,Urine Negative (Negative); Nitrite,Urine Negative (Negative); Protein,Urine Negative (Negative); Specific Gravity,Urine 1.016 (1.001-1.035); Urobilinogen,Urine <2.0 mg/dL (<2.0)
[2022-10-04 16:51] LABS: Glucose,Whole Blood 316 mg/dL (70-110)
[2022-10-04] MEDS: INSULIN REGULAR 100 UNIT in SODIUM CHLORIDE 0.9% 100 ML IV SCH (18:54)
[2022-10-04 20:06] LABS: Glucose,Whole Blood 103 mg/dL (70-110)
[2022-10-04] MEDS: FAMOTIDINE 20 MG TAB PO SCH (20:52)
[2022-10-05 02:03] LABS: Glucose,Whole Blood 349 mg/dL (70-110)
[2022-10-05] MEDS: INSULIN ASPART (NovoLOG) 100 UNIT/ML VIAL SQ SCH ×8 (02:48→20:25)
[2022-10-05] MEDS: SODIUM CHLORIDE 0.9% 1,000 ML IV SCH ×2 (06:02→20:35)
[2022-10-05 06:10] LABS: Glucose,Whole Blood 257 mg/dL (70-110)
[2022-10-05 08:03] LABS: Glucose,Whole Blood 426 mg/dL (70-110)
[2022-10-05] MEDS: INSULIN DETEMIR (LEVEMIR) 100 UNIT/ML SYR SQ SCH (08:06)
[2022-10-05] MEDS: TICAGRELOR 90 MG TAB PO SCH ×2 (08:06→20:29)
[2022-10-05] MEDS: FERROUS SULFATE 325 MG TAB PO SCH (08:06)
[2022-10-05] MEDS: ASPIRIN 81 MG PO SCH (08:06)
[2022-10-05] MEDS: LORATADINE 10 MG TAB PO SCH (08:06)
[2022-10-05] MEDS: MULTIVITAMINS, THERA 1 EACH TAB PO SCH (08:06)
[2022-10-05] MEDS: LEVOTHYROXINE 100 MCG TAB PO SCH (08:07)
[2022-10-05] MEDS: LEVOTHYROXINE 50 MCG TAB PO SCH (08:07)
[2022-10-05] MEDS: SUCRALFATE 1 GM TAB PO SCH ×4 (08:07→20:31)
[2022-10-05] MEDS ORDERED: LOPERAMIDE 2 MG CAP PO PRN (11:19)
[2022-10-05] MEDS ORDERED: LOPERAMIDE 2 MG CAP PO STA (11:19)
[2022-10-05] MEDS: INSULIN REGULAR 100 UNIT in SODIUM CHLORIDE 0.9% 100 ML IV SCH (11:20)
[2022-10-05 11:41] LABS: Glucose,Whole Blood 284 mg/dL (70-110)
[2022-10-05 12:27] LABS: Calcium 9.1 mg/dL (8.4-10.2); Magnesium 2.2 mg/dL (1.6-2.3)
[2022-10-05 12:34] LABS: Potassium 6.4 mmol/L (3.5-5.1)
[2022-10-05 13:07] LABS: Basophils % (A) 1 %; Eosinophils # (A) 0.3 k/uL (0-0.7); Eosinophils % (A) 7 %; HCT 36.5 % (34.0-46.0); HGB 11.9 gm/dL (11.4-16.0); Lymphocytes # (A) 1.1 k/uL (1.0-4.8); Lymphocytes % (A) 25 %; MCHC 32.6 g/dL (31.0-37.0); MCV 94.9 fL (80.0-100.0); Monocytes # (A) 0.2 k/uL (0-1.0); Monocytes % (A) 4 %; Neutrophils # (A) 2.7 k/uL (1.3-7.7); Neutrophils % (A) 63 %; Platelet Count 157 k/uL (150-450); RBC 3.85 m/uL (3.80-5.40); RDW 13.7 % (11.5-15.5); WBC 4.3 k/uL (3.8-10.6)
[2022-10-05] MEDS ORDERED: SODIUM BICARB 8.4% 50 ML SYR (1 MEQ/ML) IV STA (13:11)
[2022-10-05] MEDS ORDERED: CALCIUM GLUCONATE IN NACL 1 GM in SALINE 1 100ML.BAG IVPB ONE (13:11)
--- NOTE | 2022-10-05 15:35 | P.PN ---
Subjective This is a pleasant 62 years old female with multiple medical problems, Coronary Artery Disease (CAD), COPD, CVA/TIA, Diabetes Mellitus, Deep Vein Thrombosis (DVT), GERD/Reflux, Hyperlipidemia, Hypertension, Rheumatoid Arthritis (RA), Sleep Apnea/CPAP/BIPAP, Syncope, hypothyroidism, left renal cell carcinoma with partial nephrectomy, CVA 4, last 5 yrs ago, no residual effects, DVT left leg 7-8 yrs ago, chronic back pain, degenerative disks, hx UTI with sepsis secondary to ESBL producing E. coli , restless leg syndrome, peripheral neurop athy. Hx bilateral glaucoma, Patient presents because she was feeling dizzy and felt like presyncope for the last 2 days associated with diarrhea and abdominal pain and also for 2 days. She had 5-6 bouts of bowel movement yesterday with no blood. Her pain is periumbilical, nonradiating was severe admission but now 5/10, Associated with nausea but no vomiting. She has low appetite. She denies chest pain or dyspnea currently. She states she has some dyspnea 2 days ago. Also she is complaining of from cough and green phlegm and runny nose but no sore throat. No fever. She has little dysuria but no urgency. No headache or weakness or numbness or confusion. She quit smoking about 10 days ago because her PCP Dr. Elder told her she has a spot in her lung. She denies alcohol. She uses marijuana occasionally. Once or twice a week. Patient is hypotensive this morning 91/59, baseline systolic blood pressure is around 100-120. Glucose is controlled. CBC is unremarkable. TSH is normal 1.5 Creatinine is elevated 2.1, common down to 1.4, baseline creatinine 0.7-1.1 Glucose on admission was 743, now is looking better. Liver enzymes not elevated. Troponin is negative 1. EKG showing criteria for LVH, normal sinus rhythm at 83, no significant ST-T changes, looks similar to old EKG KUB: Nonspecific bowel gas pattern 10/05/2022 pt is doing generally well, her only symptom today diarrhea. She had 4 bowel movements last night into this morning and they are loosened and the closest w atery. Patient with no abdominal pain, no vomiting and she eats well after that S diet with no difficulty. No other new complaints. No chest pain or dyspnea. Significant was checked and it was negative. Throatcalcitonin is normal. We going to add Imodium when necessary and monitor for another [address] of the abdomen, chest x-ray and urinalysis were reviewed. Significant abnormality to explain patient presentation. Potassium is more than 6 with hemolyzed sample, calcium gluconate is given as well as sodium bicarb, recheck potassium 5.4. We going to recheck her potassium tomorrow morning. Patient also states that she takes Lantus 6 units twice a day at home and 6 units of NovoLog with meals as well as at bedtime. Therefore we corrected her current regimen and Levemir 12 units daily as well as 6 units with meals. We'll keep monitoring her sugar as it is slightly elevated. Objective - Vital Signs Vital signs: Vital Signs Temp 97.8 F 10/05/22 12:24 Pulse 97 10/05/22 12:24 Resp 16 10/05/22 12:24 BP 122/64 10/05/22 12:24 Pulse Ox 95 10/05/22 12:24 FiO2 Intake & Output 10/04/22 10/05/22 10/05/22 18:59 06:59 18:59 Intake Total 378 550 608 Balance 378 550 608 Weight 55.338 kg Intake: IV 20 10 10 Invasive Line 1 10 Invasive Line 2 10 10 10 Oral [phone] Other: # Voids 2 1 # Bowel Movements 2 - Exam GENERAL: The patient is alert and oriented x3, not in any acute distress. Well developed, well nourished. HEENT: Pupils are round and equally reacting to light. EOMI. No scleral icterus. No conjunctival pallor. Normocephalic, atraumatic. No pharyngeal erythema. No t hyromegaly. CARDIOVASCULAR: S1 and S2 present. No murmurs, rubs, or gallops. PULMONARY: Chest is clear to auscultation, no wheezing or crackles. ABDOMEN: Soft, nontender, nondistended, normoactive bowel sounds. No palpable organomegaly. MUSCULOSKELETAL: No joint swelling or deformity. EXTREMITIES: No cyanosis, clubbing, or pedal edema. NEUROLOGICAL: Gross neurological examination did not reveal any focal deficits. SKIN: No rashes. no petechiae. - Labs CBC & Chem 7: 10/05/22 11:34 10/05/22 14:47 Labs: Abnormal Lab Results - Last 24 Hours (Table) 10/03/22 10/04/22 10/04/22 Range/Units 14:51 11:12 16:50 Sodium (137-145) mmol/L Potassium (3.5-5.1) mmol/L BUN (7-17) mg/dL Glucose (74-99) mg/dL POC Glucose (mg/dL) 316 H (70-110) mg/dL Hemoglobin A1c 12.3 H (0.0-6.0) % Urine Glucose (UA) 4+ H (Negative) 10/05/22 10/05/22 10/05/22 Range/Units 02:01 06:08 08:02 Sodium (137-145) mmol/L Potassium (3.5-5.1) mmol/L BUN (7-17) mg/dL Glucose (74-99) mg/dL POC Glucose (mg/dL) 349 H 257 H 426 H (70-110) mg/dL Hemoglobin A1c (0.0-6.0) % Urine Glucose (UA) (Negative) 10/05/22 10/05/22 Range/Units 11:34 11:39 Sodium 136 L (137-145) mmol/L Potassium 6.4 H* (3.5-5.1) mmol/L BUN 25 H (7-17) mg/dL Glucose 266 H (74-99) mg/dL POC Glucose (mg/dL) 284 H (70-110) mg/dL Hemoglobin A1c (0.0-6.0) % Urine Glucose (UA) (Negative) Assessment and Plan Assessment: Diarrhea, mostly secondary to gastroenteritis may acute. Possible viral Hypotension with dizziness, improved Diabetes mellitus with hyperglycemia Acute kidney injury on chronic kidney disease, improvement Hyperkalemia, improving Hypertension hyperlipidemia chronic kidney disease stage III history of left renal cell carcinoma status post left nephrectomy History of sleep apnea Hypothyroidism History of left renal carcinoma with partial nephrectomy History of stroke, no residual effect History of coronary artery disease COPD, not active issue History of coronary artery disease status post stent, last one was on March 2022 Specimens abuse with marijuana. Plan: Continue with aspirin and brilinita Continue with IV fluid, Monitor potassium Continue with home dose of insulin and monitor her glucose Labs and medication were reviewed.. Continue same treatment. Continue with symptomatic treatment. Resume home medication. Monitor labs and vitals. DVT and GI prophylaxis. Further recommendations as per clinical course of the patient DVT prophylaxis: Subcutaneous heparin GI Prophylaxis: Pepcid Possible discharge in 24-48 hours she keeps improving
[2022-10-05 16:27] LABS: Glucose,Whole Blood 137 mg/dL (70-110)
[2022-10-05 20:10] LABS: Glucose,Whole Blood 110 mg/dL (70-110)
[2022-10-05] MEDS: FAMOTIDINE 20 MG TAB PO SCH (20:29)
[2022-10-05] MEDS: HEPARIN SODIUM,PORCINE/PF 5,000 UNIT/0.5 ML SYRINGE SQ SCH (20:29)
[2022-10-05] MEDS: HYDROcodone/APAP 5-325MG 1 EACH TAB PO PRN (22:58)
[2022-10-06 01:59] LABS: Glucose,Whole Blood 252 mg/dL (70-110)
[2022-10-06] MEDS: INSULIN ASPART (NovoLOG) 100 UNIT/ML VIAL SQ SCH ×8 (02:14→20:29)
[2022-10-06 04:44] LABS: Glucose,Whole Blood 169 mg/dL (70-110)
[2022-10-06 06:07] LABS: Glucose,Whole Blood 206 mg/dL (70-110)
[2022-10-06] MEDS: LEVOTHYROXINE 100 MCG TAB PO SCH (06:11)
[2022-10-06] MEDS: LEVOTHYROXINE 50 MCG TAB PO SCH (06:12)
[2022-10-06] MEDS: INSULIN DETEMIR (LEVEMIR) 100 UNIT/ML SYR SQ SCH (07:30)
[2022-10-06] MEDS: SUCRALFATE 1 GM TAB PO SCH ×4 (07:31→20:29)
[2022-10-06] MEDS: TICAGRELOR 90 MG TAB PO SCH ×2 (08:49→20:29)
[2022-10-06] MEDS: FERROUS SULFATE 325 MG TAB PO SCH (08:49)
[2022-10-06] MEDS: MULTIVITAMINS, THERA 1 EACH TAB PO SCH (08:49)
[2022-10-06] MEDS: HEPARIN SODIUM,PORCINE/PF 5,000 UNIT/0.5 ML SYRINGE SQ SCH (08:49)
[2022-10-06] MEDS: ASPIRIN 81 MG PO SCH (08:49)
[2022-10-06] MEDS: LORATADINE 10 MG TAB PO SCH (08:49)
[2022-10-06 08:54] LABS: Calcium 9.2 mg/dL (8.4-10.2); Potassium 5.2 mmol/L (3.5-5.1)
[2022-10-06] MEDS: SODIUM CHLORIDE 0.9% 1,000 ML IV SCH ×2 (09:40→14:25)
[2022-10-06 11:41] LABS: Glucose,Whole Blood 316 mg/dL (70-110)
[2022-10-06] MEDS ORDERED: SODIUM CHLORIDE 0.9% 500 ML 500 ML IV ONE (11:47)
[2022-10-06] MEDS: CHOLESTYRAMINE (WITH SUGAR) 4 GM PACKET PO SCH ×2 (12:54→18:17)
[2022-10-06 16:48] LABS: Glucose,Whole Blood 98 mg/dL (70-110)
[2022-10-06 17:38] LABS: Glucose,Whole Blood 77 mg/dL (70-110)
[2022-10-06 17:44] LABS: Glucose,Whole Blood 77 mg/dL (70-110)
[2022-10-06 17:59] LABS: Glucose,Whole Blood 109 mg/dL (70-110)
[2022-10-06 18:24] LABS: Glucose,Whole Blood 84 mg/dL (70-110)
[2022-10-06 18:37] LABS: Glucose,Whole Blood 175 mg/dL (70-110)
[2022-10-06 19:58] LABS: Glucose,Whole Blood 213 mg/dL (70-110)
[2022-10-06] MEDS: FAMOTIDINE 20 MG TAB PO SCH (20:29)
--- NOTE | 2022-10-06 20:59 | P.PN ---
Subjective This is a pleasant 62 years old female with multiple medical problems, Coronary Artery Disease (CAD), COPD, CVA/TIA, Diabetes Mellitus, Deep Vein Thrombosis (DVT), GERD/Reflux, Hyperlipidemia, Hypertension, Rheumatoid Arthritis (RA), Sleep Apnea/CPAP/BIPAP, Syncope, hypothyroidism, left renal cell carcinoma with partial nephrectomy, CVA 4, last 5 yrs ago, no residual effects, DVT left leg 7-8 yrs ago, chronic back pain, degenerative disks, hx UTI with sepsis secondary to ESBL producing E. coli , restless leg syndrome, peripheral neurop athy. Hx bilateral glaucoma, Patient presents because she was feeling dizzy and felt like presyncope for the last 2 days associated with diarrhea and abdominal pain and also for 2 days. She had 5-6 bouts of bowel movement yesterday with no blood. Her pain is periumbilical, nonradiating was severe admission but now 5/10, Associated with nausea but no vomiting. She has low appetite. She denies chest pain or dyspnea currently. She states she has some dyspnea 2 days ago. Also she is complaining of from cough and green phlegm and runny nose but no sore throat. No fever. She has little dysuria but no urgency. No headache or weakness or numbness or confusion. She quit smoking about 10 days ago because her PCP Dr. Elder told her she has a spot in her lung. She denies alcohol. She uses marijuana occasionally. Once or twice a week. Patient is hypotensive this morning 91/59, baseline systolic blood pressure is around 100-120. Glucose is controlled. CBC is unremarkable. TSH is normal 1.5 Creatinine is elevated 2.1, common down to 1.4, baseline creatinine 0.7-1.1 Glucose on admission was 743, now is looking better. Liver enzymes not elevated. Troponin is negative 1. EKG showing criteria for LVH, normal sinus rhythm at 83, no significant ST-T changes, looks similar to old EKG KUB: Nonspecific bowel gas pattern 10/05/2022 pt is doing generally well, her only symptom today diarrhea. She had 4 bowel movements last night into this morning and they are loosened and the closest w atery. Patient with no abdominal pain, no vomiting and she eats well after that S diet with no difficulty. No other new complaints. No chest pain or dyspnea. Significant was checked and it was negative. Throatcalcitonin is normal. We going to add Imodium when necessary and monitor for another [address] of the abdomen, chest x-ray and urinalysis were reviewed. Significant abnormality to explain patient presentation. Potassium is more than 6 with hemolyzed sample, calcium gluconate is given as well as sodium bicarb, recheck potassium 5.4. We going to recheck her potassium tomorrow morning. Patient also states that she takes Lantus 6 units twice a day at home and 6 units of NovoLog with meals as well as at bedtime. Therefore we corrected her current regimen and Levemir 12 units daily as well as 6 units with meals. We'll keep monitoring her sugar as it is slightly elevated. 10/06/2021 Patient remains dehydrated but mild, continue IV hydration until tonight, she still have diarrhea, Imodium did not help her much. Imodium signs glycerin. She still has no abdominal pain or tenderness and abdominal exam completely benign. No vomiting or nausea and she tolerates diet well, she says she had 2 bowel movements yesterday and through this morning and they were somewhat close. Her glucose is fluctuating however as we can better control through the day, patient informed she is better glucose control and she will follow up with her acoustical tile patternmaker Dr. Wahl next week as she states to me. She is walking the hallway with no difficulty She still has mild hyperkalemia, we discontinued subcutaneous heparin as patient is walking fine and she is low risk for DVT and to help her with hyperkalemia. Also will place her on low potassium diet. We'll check potassium tomorrow morning She remains on aspirin and brilinta Objective - Vital Signs Vital signs: Vital Signs Temp 98.2 F 10/06/22 08:48 Pulse 103 H 10/06/22 08:48 Resp 18 10/06/22 08:48 BP 130/80 10/06/22 08:48 Pulse Ox 96 10/06/22 08:48 FiO2 Intake & Output 10/05/22 10/06/22 10/06/22 18:59 06:59 18:59 Intake Total 1256 360 Balance 1256 360 Intake: Oral 1256 360 Other: Voiding Method Toilet # Voids 2 1 - Exam GENERAL: The patient is alert and oriented x3, not in any acute distress. Well developed, well nourished. HEENT: Pupils are round and equally reacting to light. EOMI. No scleral icterus. No conjunctival pallor. Normocephalic, atraumatic. No pharyngeal erythema. No thyromegaly. CARDIOVASCULAR: S1 and S2 present. No murmurs, rubs, or gallops. PULMONARY: Chest is clear to auscultation, no wheezing or crackles. ABDOMEN: Soft, nontender, nondistended, normoactive bowel sounds. No palpable organomegaly. MUSCULOSKELETAL: No joint swelling or deformity. EXTREMITIES: No cyanosis, clubbing, or pedal edema. NEUROLOGICAL: Gross neurological examination did not reveal any focal deficits. SKIN: No rashes. no petechiae. - Labs CBC & Chem 7: 10/05/22 11:34 10/06/22 08:12 Labs: Abnormal Lab Results - Last 24 Hours (Table) 10/05/22 10/05/22 10/06/22 Range/Units 14:47 16:22 01:58 Sodium (137-145) mmol/L Potassium 5.4 H (3.5-5.1) mmol/L BUN (7-17) mg/dL Glucose (74-99) mg/dL POC Glucose (mg/dL) 137 H 252 H (70-110) mg/dL 10/06/22 10/06/22 10/06/22 Range/Units 04:42 06:05 08:12 Sodium 134 L (137-145) mmol/L Potassium 5.2 H (3.5-5.1) mmol/L BUN 23 H (7-17) mg/dL Glucose 296 H (74-99) mg/dL POC Glucose (mg/dL) 169 H 206 H (70-110) mg/dL 10/06/22 Range/Units 11:40 Sodium (137-145) mmol/L Potassium (3.5-5.1) mmol/L BUN (7-17) mg/dL Glucose (74-99) mg/dL POC Glucose (mg/dL) 316 H (70-110) mg/dL Assessment and Plan Assessment: Diarrhea, mostly secondary to gastroenteritis may acute. Possible viral Hypotension with dizziness, improved Diabetes mellitus with hyperglycemia Acute kidney injury on chronic kidney disease, improvement Hyperkalemia, improving Hypertension hyperlipidemia chronic kidney disease stage III history of left renal cell carcinoma status post left nephrectomy History of sleep apnea Hypothyroidism History of left renal carcinoma with partial nephrectomy History of stroke, no residual effect History of coronary artery disease COPD, not active issue History of coronary artery disease status post stent, last one was on April 04 Specimens abuse with marijuana. Plan: Continue with aspirin and brilinita Discontinue IV fluids tonight Monitor potassium tomorrow. The subcutaneous heparin. A potassium diet Continue with home dose of insulin and monitor her glucose. Endocrinology follow-up outpatient Adde cholestyramine Labs and medication were reviewed.. Continue same treatment. Continue with symptomatic treatment. Resume home medication. Monitor labs and vitals. DVT and GI prophylaxis. Further recommendations as per clinical course of the patient DVT prophylaxis: Subcutaneous heparin GI Prophylaxis: Pepcid Possible discharge in 24-48 hours she keeps improving
[2022-10-06] MEDS: HYDROcodone/APAP 5-325MG 1 EACH TAB PO PRN (23:24)
[2022-10-07 02:11] LABS: Glucose,Whole Blood 131 mg/dL (70-110)
[2022-10-07] MEDS: INSULIN ASPART (NovoLOG) 100 UNIT/ML VIAL SQ SCH ×5 (02:22→12:25)
[2022-10-07 06:02] LABS: Glucose,Whole Blood 235 mg/dL (70-110)
[2022-10-07 06:24] LABS: African American GFR (CKD) >90 (>60 ml/min/1.73 sqM); Anion Gap 7 mmol/L; Blood Urea Nitrogen 19 mg/dL (7-17); Calcium 8.8 mg/dL (8.4-10.2); Carbon Dioxide 25 mmol/L (22-30); Chloride 106 mmol/L (98-107); Glucose 221 mg/dL (74-99); Non-African American GFR(CKD) 79 (>60 ml/min/1.73 sqM); Potassium 4.9 mmol/L (3.5-5.1); Sodium 138 mmol/L (137-145)
[2022-10-07] MEDS: SUCRALFATE 1 GM TAB PO SCH ×2 (06:42→12:25)
[2022-10-07] MEDS: LEVOTHYROXINE 100 MCG TAB PO SCH (06:42)
[2022-10-07] MEDS: INSULIN DETEMIR (LEVEMIR) 100 UNIT/ML SYR SQ SCH (06:42)
[2022-10-07] MEDS: LEVOTHYROXINE 50 MCG TAB PO SCH (06:42)
[2022-10-07] MEDS: MULTIVITAMINS, THERA 1 EACH TAB PO SCH (08:33)
[2022-10-07] MEDS: LORATADINE 10 MG TAB PO SCH (08:33)
[2022-10-07] MEDS: ASPIRIN 81 MG PO SCH (08:33)
[2022-10-07] MEDS: FERROUS SULFATE 325 MG TAB PO SCH (08:33)
[2022-10-07] MEDS: TICAGRELOR 90 MG TAB PO SCH (10:37)
[2022-10-07] MEDS: CHOLESTYRAMINE (WITH SUGAR) 4 GM PACKET PO SCH (10:37)
[2022-10-07 11:46] LABS: Glucose,Whole Blood 255 mg/dL (70-110)
[2022-10-07 15:12] VITALS: BP 131/82; PULSE 104; RESP 16; TEMP 98.9
--- NOTE | 2022-10-08 22:50 | P.DS ---
Providers Date of admission: 10/03/22 17:35 Attending physician: Danielle Hill Primary care physician: Sahra Elder Hospital Course: Final Diagnosis Diarrhea, mostly secondary to gastroenteritis may acute. Possible viral C.Dif negative. Hypotension with dizziness, improved Diabetes mellitus with hyperglycemia Acute kidney injury on chronic kidney disease, improvement Hyperkalemia, improving Hypertension hyperlipidemia Chronic kidney disease stage III history of left renal cell carcinoma status post left nephrectomy History of sleep apnea Hypothyroidism History of left renal carcinoma with partial nephrectomy History of stroke, no residual effect History of coronary artery disease COPD, not active issue History of coronary artery disease status post stent, last one was on March 2022 Marijuana use History of tobacco use, recently quit Discharge Disposition Patient is stable for discharge home. Resumed on home insulin regimen with lantus 26 units BID, novolog 6 units TID. Patient to follow up closely with her biodiesel product development manager within the week. Patient instructed to cut back on lantus to 18 units BID if she experiences a drop in blood glucose. Repeat labs in 2 to 3 days. Hospital Course This is a pleasant 62 years old female with multiple medical problems, Coronary Artery Disease (CAD), COPD, CVA/TIA, Diabetes Mellitus, Deep Vein Thrombosis (DVT), GERD/Reflux, Hyperlipidemia, Hypertension, Rheumatoid Arthritis (RA), Sleep Apnea/CPAP/BIPAP, Syncope, hypothyroidism, left renal cell carcinoma with partial nephrectomy, CVA 4, last 5 yrs ago, no residual effects, DVT left leg 7-8 yrs ago, chronic back pain, degenerative disks, hx UTI with sepsis secondary to ESBL producing E. coli , restless leg syndrome, peripheral neuropathy. Hx bilateral glaucoma. Patient presents because she was feeling dizzy and felt like presyncope for the last few days associated with diarrhea and abdominal pain and also for 2 days. She had 5-6 bouts of bowel movement yesterday mostly loose. She denies chest pain or dyspnea currently. She states she has some dyspnea 2 days ago. Also she is complaining of from cough and green phlegm and runny nose but no sore throat. No fever. Patient did report feeling like she had a cold this last week. Blood glucose has been high at home. She just saw her biodiesel product development manager 1 week ago. Patient has been on the insulin pump in the past currently using lantus 26 units BID and novolog 6 units TID. Initial work up reveals a blood glucose of 743. Liver enzymes not elevated. Troponin is negative 1. EKG showing criteria for LVH, normal sinus rhythm at 83, no significant ST-T changes, looks similar to old EKG KUB: Nonspecific bowel gas pattern. Patient was admitted for HHS which the serum osmolality was normal and patient did not appear to be in DKA. Patient also had an acute kidney injury on admission. Patient was treated with insulin gtt and hydration and blood glucose normalized. Creatinine improves to baseline. Patient was checked for C.Dif which was negative. Patients diarrhea has essentially res olved she reports 1 small loose BM in the last 24 hours and patient is tolerating diet now. The hyperglycemia was likely caused from a possible viral gastrotenteritis. Patient has had no fever. White count is normal. Most recent labs show sodium of 138, potassium of 4.9, BUN 19 creatinine 0.81. Blood glucose in the 210s. Patients lungs are clear S1 S2 auscultated and her abdomen is soft and nontender with normoactive bowel sounds. Patient is discharged home with above mentioned recommendations. Please see medication reconciliation for a list of current medication. Thank you for allowing us to participate in the care of this patient. The impression and plan of care has been dictated by Laura Lucas Nurse Practitioner as directed. Dr. Chuck MD I have performed a history and physical examination and medical decision making of this patient, discussed the same with the dictator, and agree with the dictators assessment and plan as written, documented as a scribe. Based on total visit time, I have performed more than 50% of this visit. Patient Condition at Discharge: Stable Plan - Discharge Summary Discharge Rx Participant: Yes New Discharge Prescriptions: New Loperamide [Imodium] 2 mg PO TID PRN #21 capsule PRN Reason: Diarrhea Metoprolol Succinate (ER) [Toprol Xl] 25 mg PO DAILY #30 tab Continue Venlafaxine HCl [Effexor XR] 225 mg PO DAILY Pantoprazole Sodium [Protonix] 40 mg PO BID Cariprazine HCl [Vraylar] 1.5 mg PO HS Isosorbide Dinitrate [Isordil] 10 mg PO BID Meclizine [Antivert] 25 mg PO TID PRN PRN Reason: DIZZINESS Magnesium Oxide [Mag-Ox] 400 mg PO DAILY Levothyroxine Sodium [Synthroid] 200 mcg PO DAILY Levothyroxine Sodium [Synthroid] 50 mcg PO DAILY Cholecalciferol [Vitamin D3 (125 Mcg = 5000 Iu)] 125 mcg PO TID Cetirizine HCl [Zyrtec] 10 mg PO DAILY Acetaminophen Tab [Tylenol] 650 mg PO Q6HR PRN tab PRN Reason: Fever And/ Or Pain Aspirin EC [Ecotrin Low Dose] 81 mg PO DAILY HYDROcodone/APAP 5-325MG [[place] 5-325] 1 tab PO BID INSULIN LISPRO (HumaLOG) [humaLOG] See Protocol SQ AC-TID Sucralfate [Carafate] 1 gm PO ACHS INSULIN LISPRO (HumaLOG) [humaLOG] 6 units SQ AC-TID Nitroglycerin Sl Tabs [Nitrostat] 0.4 mg SL Q5M PRN PRN Reason: Chest Pain Ferrous Sulfate [Iron (65 MG Elemental)] 325 mg PO DAILY Multivitamins, Thera [Multivitamin (formulary)] 1 tab PO DAILY Ipratropium-Albuterol Nebulize [Duoneb 0.5 mg-3 mg/3 ml Soln] 3 ml INHALATION RT-QID PRN PRN Reason: Shortness Of Breath Glucagon [Baqsimi] 1 spray NASAL DIRECTED PRN PRN Reason: Severe Hypoglycemia Gabapentin 300 mg PO TID calcitrioL [Calcitriol] 0.25 mcg PO SA Ticagrelor [Brilinta] 90 mg PO BID 60 Days #60 tab Butalb/APAP/Caff 50-325-40Mg [Fioricet 50-325-40] 1 tab PO BID PRN PRN Reason: Migraine Headache rOPINIRole HCL [Requip] 0.5 mg PO BID traZODone HCL [Desyrel] 50 mg PO HS Insulin Glargine [Lantus Vial] 26 unit SQ BID #0 Discontinued methocarbamoL [Robaxin] 500 mg PO TID PRN PRN Reason: Muscle Spasm Metoprolol Succinate (ER) [Toprol XL] 50 mg PO DAILY #30 tab Cyclobenzaprine [Flexeril] 10 mg PO HS Zolpidem Tartrate [Ambien] 5 mg PO HS PRN PRN Reason: Insomnia Discharge Medication List Venlafaxine HCl [Effexor XR] 225 mg PO DAILY 10/21/16 [History] Pantoprazole Sodium [Protonix] 40 mg PO BID 04/06/20 [History] Cariprazine HCl [Vraylar] 1.5 mg PO HS 05/13/20 [History] Isosorbide Dinitrate [Isordil] 10 mg PO BID 10/31/20 [History] Meclizine [Antivert] 25 mg PO TID PRN 01/16/21 [History] Nitroglycerin Sl Tabs [Nitrostat] 0.4 mg SL Q5M PRN 02/27/21 [History] Ferrous Sulfate [Iron (65 MG Elemental)] 325 mg PO DAILY 10/02/21 [History] Cetirizine HCl [Zyrtec] 10 mg PO DAILY 07/15/22 [History] Cholecalciferol [Vitamin D3 (125 Mcg = 5000 Iu)] 125 mcg PO TID 07/15/22 [History] Gabapentin 300 mg PO TID 07/15/22 [History] Glucagon [Baqsimi] 1 spray NASAL DIRECTED PRN 07/15/22 [History] Ipratropium-Albuterol Nebulize [Duoneb 0.5 mg-3 mg/3 ml Soln] 3 ml INHALATION RT-QID PRN 07/15/22 [History] Levothyroxine Sodium [Synthroid] 50 mcg PO DAILY 07/15/22 [History] Levothyroxine Sodium [Synthroid] 200 mcg PO DAILY 07/15/22 [History] Magnesium Oxide [Mag-Ox] 400 mg PO DAILY 07/15/22 [History] Multivitamins, Thera [Multivitamin (formulary)] 1 tab PO DAILY 07/15/22 [History] calcitrioL [Calcitriol] 0.25 mcg PO SA 07/15/22 [History] Ticagrelor [Brilinta] 90 mg PO BID 60 Days #60 tab 07/20/22 [Rx] Acetaminophen Tab [Tylenol] 650 mg PO Q6HR PRN tab 09/04/22 [Rx] Aspirin EC [Ecotrin Low Dose] 81 mg PO DAILY 10/03/22 [History] Butalb/APAP/Caff 50-325-40Mg [Fioricet 50-325-40] 1 tab PO BID PRN 10/03/22 [History] HYDROcodone/APAP 5-325MG [[place] 5-325] 1 tab PO BID 10/03/22 [History] INSULIN LISPRO (HumaLOG) [humaLOG] 6 units SQ AC-TID 10/03/22 [History] INSULIN LISPRO (HumaLOG) [humaLOG] See Protocol SQ AC-TID 10/03/22 [History] Sucralfate [Carafate] 1 gm PO ACHS 10/03/22 [History] rOPINIRole HCL [Requip] 0.5 mg PO BID 10/03/22 [History] traZODone HCL [Desyrel] 50 mg PO HS 10/03/22 [History] Insulin Glargine [Lantus Vial] 26 unit SQ BID #0 10/07/22 [Rx] Loperamide [Imodium] 2 mg PO TID PRN #21 capsule 10/07/22 [Rx] Metoprolol Succinate (ER) [Toprol Xl] 25 mg PO DAILY #30 tab 10/07/22 [Rx] Follow up Appointment(s)/Referral(s): Sahra Elder MD [Primary Care Provider] - 1-2 days Dixon Wahl MD [REFERRING] - 1 Week Ambulatory/Diagnostic Orders: Basic Metabolic Panel [LAB.AMB] Time Frame: 3 Days, Location: None Selected Patient Instructions/Handouts: Hyperosmolar Hyperglycemic State (DC) Activity/Diet/Wound Care/Special Instructions: Continue to monitor glucose and keep log for follow up with your biodiesel product development manager If blood sugar drops cut back on lantus to 18 units BID. Repeat labs in 2 to 3 days Discharge Disposition: HOME SELF-CARE
== END 2022-10-07 16:14 | disposition home or self-care (01) | DRG 420 ==
LOC: EC 13:52 → 3SCARD 17:35 → 4SSUR 10-06 23:20
PROVIDERS: ADMIT Hospitalist; ATTEND Hospitalist
DX: E11.65 Type 2 diabetes mellitus with hyperglycemia (principal); E11.00 Type 2 diabetes mellitus with hyperosmolarity without nonketotic hyperglycemic-hyperosmolar coma (NKHHC); N17.9 Acute kidney failure, unspecified; E11.22 Type 2 diabetes mellitus with diabetic chronic kidney disease; E11.42 Type 2 diabetes mellitus with diabetic polyneuropathy; I95.9 Hypotension, unspecified; M06.9 Rheumatoid arthritis, unspecified; E89.0 Postprocedural hypothyroidism; F14.21 Cocaine dependence, in remission; I12.9 Hypertensive chronic kidney disease with stage 1 through stage 4 chronic kidney disease, or unspecified chronic kidney disease; N18.30 Chronic kidney disease, stage 3 unspecified; J44.9 Chronic obstructive pulmonary disease, unspecified; G25.81 Restless legs syndrome; K52.9 Noninfective gastroenteritis and colitis, unspecified; R30.0 Dysuria; I25.10 Atherosclerotic heart disease of native coronary artery without angina pectoris; G89.29 Other chronic pain; E78.5 Hyperlipidemia, unspecified; M54.9 Dorsalgia, unspecified; G47.30 Sleep apnea, unspecified; E87.5 Hyperkalemia; E86.0 Dehydration; K21.9 Gastro-esophageal reflux disease without esophagitis; H40.9 Unspecified glaucoma; Z79.4 Long term (current) use of insulin; Z86.73 Personal history of transient ischemic attack (TIA), and cerebral infarction without residual deficits; I25.2 Old myocardial infarction; Z90.5 Acquired absence of kidney; Z85.528 Personal history of other malignant neoplasm of kidney; Z86.14 Personal history of Methicillin resistant Staphylococcus aureus infection; Z86.718 Personal history of other venous thrombosis and embolism; Z79.890 Hormone replacement therapy; Z79.82 Long term (current) use of aspirin; Z79.891 Long term (current) use of opiate analgesic; Z79.02 Long term (current) use of antithrombotics/antiplatelets; Z95.5 Presence of coronary angioplasty implant and graft; Z87.19 Personal history of other diseases of the digestive system; Z86.19 Personal history of other infectious and parasitic diseases; Z87.891 Personal history of nicotine dependence; Z88.2 Allergy status to sulfonamides; Z88.5 Allergy status to narcotic agent; Z88.8 Allergy status to other drugs, medicaments and biological substances; Z91.030 Bee allergy status; Z91.040 Latex allergy status; Z91.048 Other nonmedicinal substance allergy status; Z28.310 Unvaccinated for COVID-19; Z79.899 Other long term (current) drug therapy; Z83.3 Family history of diabetes mellitus
CPT/HCPCS: 36415; 71046; 74018; 74176; 80048; 80051; 80053; 80076; 81003; 82009; 82533; 82565; 82947; 83036; 83735; 83930; 84100; 84132; 84145; 84443; 84484; 84520; 85025; 87324; 93005; 96361; 96374; 99291

== ENCOUNTER 2023-01-22 21:16 | Observation (INO) | payer OTHER ==
[2023-01-22] MEDS ORDERED: SODIUM CHLORIDE 0.9% 500 ML 500 ML IV STA (21:18)
[2023-01-22] MEDS ORDERED: SODIUM CHLORIDE 0.9% 500 ML 500 ML IV ONE (21:31)
--- NOTE | 2023-01-22 21:52 | ED ---
General Adult HPI - General Stated complaint: Chest Pain Time Seen by Provider: 01/22/23 21:17 Source: patient, EMS, RN notes reviewed, old records reviewed Mode of arrival: EMS Limitations: no limitations - History of Present Illness Initial comments: 63-year-old female presenting for evaluation of syncopal episode and mild chest discomfort. Patient was transported by paramedics. She had been at home outside for about prior the day. She had had a momentary loss consciousness and had fallen backwards. During transport she did complain of some mild chest discomfort but she states this has resolved. She denies focal numbness or weakness. Denies headache. Denies chest pain or abdominal pain. Denies vomiting or diarrhea. Denies fever. - Related Data Home Medications Medication Instructions Recorded Confirmed Venlafaxine HCl [Effexor XR] 225 mg PO DAILY 10/21/16 01/22/23 Pantoprazole Sodium [Protonix] 40 mg PO BID 04/06/20 01/22/23 Cariprazine HCl [Vraylar] 1.5 mg PO HS 05/13/20 01/22/23 Isosorbide Dinitrate [Isordil] 10 mg PO BID 10/31/20 01/22/23 Meclizine [Antivert] 25 mg PO TID PRN 01/16/21 01/22/23 Nitroglycerin Sl Tabs [Nitrostat] 0.4 mg SL Q5M PRN 02/27/21 01/22/23 Ferrous Sulfate [Iron (65 MG 325 mg PO DAILY 10/02/21 01/22/23 Elemental)] Cetirizine HCl [Zyrtec] 10 mg PO DAILY 07/15/22 01/22/23 Cholecalciferol [Vitamin D3 (125 125 mcg PO TID 07/15/22 01/22/23 Mcg = 5000 Iu)] Gabapentin 300 mg PO TID 07/15/22 01/22/23 Glucagon [Baqsimi] 1 spray NASAL DIRECTED PRN 07/15/22 01/22/23 Ipratropium-Albuterol Nebulize 3 ml INHALATION RT-QID PRN 07/15/22 01/22/23 [Duoneb 0.5 mg-3 mg/3 ml Soln] Levothyroxine Sodium [Synthroid] 50 mcg PO DAILY 07/15/22 01/22/23 Levothyroxine Sodium [Synthroid] 200 mcg PO DAILY 07/15/22 01/22/23 Magnesium Oxide [Mag-Ox] 400 mg PO DAILY 07/15/22 01/22/23 Multivitamins, Thera [Multivitamin 1 tab PO DAILY 07/15/22 01/22/23 (formulary)] calcitrioL [Calcitriol] 0.25 mcg PO SA 07/15/22 01/22/23 Aspirin EC [Ecotrin Low Dose] 81 mg PO DAILY 10/03/22 01/22/23 Butalb/APAP/Caff 50-325-40Mg 1 tab PO BID PRN 10/03/22 01/22/23 [Fioricet 50-325-40] INSULIN LISPRO (HumaLOG) [humaLOG] 6 units SQ AC-TID 10/03/22 01/22/23 INSULIN LISPRO (HumaLOG) [humaLOG] See Protocol SQ AC-TID 10/03/22 01/22/23 Sucralfate [Carafate] 1 gm PO ACHS 10/03/22 01/22/23 rOPINIRole HCL [Requip] 0.5 mg PO BID 10/03/22 01/22/23 traZODone HCL [Desyrel] 50 mg PO HS 10/03/22 01/22/23 Dicyclomine HCl 10 mg PO BID 01/05/23 01/22/23 HYDROcodone/APAP 7.5-325MG [[place] 1 tab PO BID PRN 01/05/23 01/22/23 7.5-325] Rosuvastatin Calcium [Crestor] 40 mg PO DAILY 01/05/23 01/22/23 Previous Rx's Medication Instructions Recorded Ticagrelor [Brilinta] 90 mg PO BID 60 Days #60 tab 07/20/22 Acetaminophen Tab [Tylenol] 650 mg PO Q6HR PRN tab 09/04/22 Insulin Glargine [Lantus Vial] 26 unit SQ BID #0 10/07/22 Loperamide [Imodium] 2 mg PO TID PRN #21 capsule 10/07/22 Losartan [Cozaar] 50 mg PO DAILY #30 tab 01/07/23 Metoclopramide HCl [Reglan] 5 mg PO TID PRN #30 tablet 01/07/23 Metoprolol Succinate (ER) [Toprol 50 mg PO DAILY 30 Days #30 tab 01/07/23 XL] Ondansetron Odt [Zofran Odt] 4 mg PO Q8HR PRN #10 tab 01/07/23 Allergies Allergy/AdvReac Type Severity Reaction Status Date / Time grass pollen Allergy Unknown Verified 01/22/23 22:32 latex Allergy Rash/Hives Verified 01/22/23 22:32 Sulfa (Sulfonamide Allergy Rash/Hives/ Verified 01/22/23 22:32 Antibiotics) Swelling venom-honey bee Allergy Anaphylaxis Verified 01/22/23 22:32 morphine AdvReac Decreased Verified 01/22/23 22:32 Blood Pressure prochlorperazine edisylate AdvReac Vomiting Verified 01/22/23 22:32 [From Compazine] Review of Systems ROS Statement: Those systems with pertinent positive or pertinent negative responses have been documented in the HPI. ROS Other: All systems not noted in ROS Statement are negative. Past Medical History Past Medical History: Coronary Artery Disease (CAD), Cancer, COPD, CVA/TIA, Diabetes Mellitus, Deep Vein Thrombosis (DVT), Eye Disorder, GERD/Reflux, Hyperlipidemia, Hypertension, Myocardial Infarction ([place]), Renal Disease, Rheumatoid Arthritis (RA), Sleep Apnea/CPAP/BIPAP, Syncope, Thyroid Disorder Additional Past Medical History / Comment(s): 09/16/16 with SBO with surgery/p ossible septic emboli with cavitary lesions bilateral lungs. 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 coli 2015 requiring PICC line insertion for IV antibiotics, restless leg syndrome, peripheral neur opathy. Hx bilateral glaucoma, hx syncope r/t low blood sugars. No CPAP use. pt states had high blood sugar 1 week ago and was seen an [facility]. Last Myocardial Infarction Date:: 2019 History of Any Multi-Drug Resistant Organisms: ESBL, MRSA, VRE Date of last positivie culture/infection: 05/07/16 ESBL, 05/15/16 VRE, MRSA 09/2017 - upper lip MDRO Source:: URINE E.COLI, EC GALLINARUM Past Surgical History: Appendectomy, Bowel Resection, Section, Heart Catheterization, Heart Catheterization With Stent, Hernia Repair Additional Past Surgical History / Comment(s): 09/30 exploratory laparotomy with lysis of adhesions, bowel resection d/t obstruction. repair incarcerated incisional hernia with abdominal washout, thyroidectomy(non functioning), heart cath 06/28 - 100% occluded, unable to stent, partial left nephrectomy for left kidney renal cell carcinoma, PICC line insertion (since removed), colonoscopy, bilateral cataract removal with lens implants, 2 Sections. cardiac Stent 03/2021 Past Anesthesia/Blood Transfusion Reactions: No Reported Reaction Date of Last Stent Placement:: 04/06/2021 Past Psychological History: Depression Additional Psychological History / Comment(s): . Smoking Status: Current every day smoker Past Alcohol Use History: None Reported Additional Past Alcohol Use History / Comment(s): STARTED SMOKING AT AGE 8, smoked one to one and half packs per day for 50 years. Quit smoking 2 months ago PT STATES SMOKES 3-4 CIGS PER DAY TRYING TO QUIT. Past Drug Use History: Marijuana Additional Drug Use History / Comment(s): Uses marijuana daily. Hx of addiction to cocaine, has not used in 20 years. - Past Family History Sister(s) Family Medical History: Cancer, Deep Vein Thrombosis (DVT) Additional Family Medical History / Comment(s): Patient has one sister that from liver cancer. Brother(s) Family Medical History: Cancer, Deep Vein Thrombosis (DVT) Additional Family Medical History / Comment(s): Patient has 1 brother with past ETOH, past drug abuse, DVTs. She has a second brother that has from throat cancer. Daughter(s) Family Medical History: Diabetes Mellitus, Myocardial Infarction ([place]) Additional Family Medical History / Comment(s): Daughter at 23 yrs old from massive [place]. Father Family Medical History: Myocardial Infarction ([place]) Additional Family Medical History / Comment(s): from [place] at age 44 Mother Family Medical History: Cancer Additional Family Medical History / Comment(s): B/L breast cancer General Exam General appearance: alert, in no apparent distress Head exam: Present: atraumatic, normocephalic Eye exam: Present: normal appearance, PERRL ENT exam: Present: mucous membranes dry Neck exam: Present: normal inspection. Absent: tenderness, meningismus Respiratory exam: Present: normal lung sounds bilaterally. Absent: respiratory distress, wheezes Cardiovascular Exam: Present: regular rate, normal rhythm GI/Abdominal exam: Present: soft. Absent: distended, tenderness, guarding Extremities exam: Present: normal inspection, normal capillary refill Neurological exam: Present: alert, oriented X3, CN II-XII intact. Absent: motor sensory deficit Psychiatric exam: Present: normal affect, normal mood Skin exam: Present: warm, dry, intact Course Vital Signs 01/22/23 01/22/23 21:35 22:39 Pulse Rate 71 71 Respiratory 18 18 Rate Blood Pressure 96/60 109/61 O2 Sat by Pulse 100 100 Oximetry - Reevaluation(s) Reevaluation #1: 01/22/23 23:40 Urinalysis pending Medical Decision Making - Medical Decision Making Was pt. sent in by a medical professional or institution (, PA, POST DOC FELLOWSHIP, urgent care, hospital, or correction...) When possible be specific @ -No Did you speak to anyone other than the patient for history (EMS, parent, family, police, friend...)? What history was obtained from this source @ -No Did you review nursing and triage notes (agree or disagree)? Why? @ -I reviewed and agree with nursing and triage notes Were old charts reviewed (outside hosp., previous admission, EMS record, old EKG, old radiological studies, urgent care reports/EKG's, correction records)? Report findings @ -[Reviewed previous EKGs Differential Diagnosis (chest pain, altered mental status, abdominal pain women, abdominal pain men, vaginal bleeding, weakness, fever, dyspnea, syncope, headache, dizziness, GI bleed, back pain, seizure, CVA, palpatations, mental health, musculoskeletal)? @ -[Differential Syncope: Valvular disease, hypertrophic cardiomyopathy, pulmonary embolism, tamponade, tachycardia, bradycardia, [place], hypovolemia, hemorrhage, dissection, anemia, intracranial hemorrhage, seizure, hypoglycemia, carbon monoxide poisoning, this is not meant to be an all-inclusive list. EKG interpreted by me (3pts min.). @ -Initial EKG obtained at 2118, sinus rhythm left ventricular hypertrophy, subtle ST segment elevation in V1 and V2 without reciprocal change. This is stable from prior EKGs. Ventricular rate is 76, WV interval 156, QRS duration 90, QTC 437. Repeat EKG was obtained at 2132 ventricular rate of 72, WV interval 153 QRS duration 93 QTC 423. X-rays interpreted by me (1pt min.). @ -No acute findings on chest x-ray CT interpreted by me (1pt min.). @CT brain negative for intracranial hemorrhage or mass effect U/S interpreted by me (1pt. min.). @ -None done What testing was considered but not performed or refused? (CT, X-rays, U/S, labs )? Why? @ -None What meds were considered but not given or refused? Why? @ -None Did you discuss the management of the patient with other professionals (professionals i.e. , PA, [employer] DOC FELLOWSHIP, lab, RT, psych nurse, psychosocial rehabilitation counselor, operations research director, teacher, executive officer, case mgr)? Give summary @Alessandro paz for [facility] Was smoking cessation discussed for >3mins.? @ -No Was critical care preformed (if so, how long)? @ -No Were there social determinants of health that impacted care today? How? (Homelessness, low income, unemployed, alcoholism, drug addiction, transportation, low edu. Level, literacy, decrease access to med. care, longterm, rehab)? @ -No Was there de-escalation of care discussed even if they declined (Discuss DNR or withdrawal of care, Hospice)? DNR status @ -No What co-morbidities impacted this encounter? (DM, HTN, Smoking, COPD, CAD, Cancer, CVA, ARF, Chemo, Hep., AIDS, mental health diagnosis, sleep apnea, mor bid obesity)? @ -[Diabetes, hypertension, coronary artery disease Was patient admitted / discharged? Hospital course, mention meds given and route, prescriptions, significant lab abnormalities, going to OR and other pertinent info. @ -63-year-old female presenting with syncopal episode. Patient appears quite dehydrated. She did have some questionable ST segment changes upon arrival and had had a brief episode of chest discomfort. This was resolved at the time my evaluation. Her EKG showed questionable ST segment elevation in V1 and V2 which was unchanged from prior EKGs. Patient was mildly hypotensive upon arrival, suspect dehydration as a cause of her syncope. She has an acute kidney injury with an elevated creatinine from baseline. Her hemoglobin is 10.9 which is stable for this patient. Troponin is negative. She will be observed on telemetry for IV hydration, serial cardiac enzymes, and cardiology consultation. Undiagnosed new problem with uncertain prognosis? @ -No Drug Therapy requiring intensive monitoring for toxicity (Heparin, Nitro, Insulin, Cardizem)? @ -No Were any procedures done? @ -No Diagnosis/symptom? @Syncope, and OCHOA Acute, or Chronic, or Acute on Chronic? @ -acute Uncomplicated (without systemic symptoms) or Complicated (systemic symptoms)? @Comp. Side effects of treatment? @ -No Exacerbation, Progression, or Severe Exacerbation? @ -No Poses a threat to life or bodily function? How? (Chest pain, [place], [place], pneumonia, PE, COPD, DKA, ARF, appy, cholecystitis, CVA, Diverticulitis, Homicidal, Suicidal, threat to staff... and all critical care pts) @ -Yes, syncope, dehydration, volume loss - Lab Data Result diagrams: 01/22/23 21:34 01/22/23 21:34 Lab Results 01/22/23 01/22/23 01/22/23 Range/Units 21:34 21:34 21:34 WBC 6.1 (3.8-10.6) k/uL RBC 3.64 L (3.80-5.40) m/uL Hgb 10.9 L (11.4-16.0) gm/dL Hct 32.9 L (34.0-46.0) % MCV 90.4 (80.0-100.0) fL MCH 30.0 (25.0-35.0) pg MCHC 33.2 (31.0-37.0) g/dL RDW 14.3 (11.5-15.5) % Plt Count 252 (150-450) k/uL MPV 8.4 Neutrophils % 48 % Lymphocytes % 39 % Monocytes % 4 % Eosinophils % 7 % Basophils % 1 % Neutrophils # 2.9 (1.3-7.7) k/uL Lymphocytes # 2.4 (1.0-4.8) k/uL Monocytes # 0.3 (0-1.0) k/uL Eosinophils # 0.4 (0-0.7) k/uL Basophils # 0.0 (0-0.2) k/uL PT 9.8 (9.0-12.0) sec INR 0.9 (<1.2) APTT 20.7 L (22.0-30.0) sec Sodium 133 L (137-145) mmol/L Potassium 4.8 (3.5-5.1) mmol/L Chloride 98 (98-107) mmol/L Carbon Dioxide 21 L (22-30) mmol/L Anion Gap 14 mmol/L BUN 24 H (7-17) mg/dL Creatinine 1.60 H (0.52-1.04) mg/dL Est GFR (CKD-EPI)AfAm 39 (>60 ml/min/1.73 sqM) Est GFR (CKD-EPI)NonAf 34 (>60 ml/min/1.73 sqM) Glucose 157 H (74-99) mg/dL Calcium 9.6 (8.4-10.2) mg/dL Magnesium 2.2 (1.6-2.3) mg/dL Total Bilirubin 0.3 (0.2-1.3) mg/dL AST 21 (14-36) U/L ALT 16 (4-34) U/L Alkaline Phosphatase 110 (38-126) U/L Troponin I (0.000-0.034) ng/mL Total Protein 7.2 (6.3-8.2) g/dL Albumin 4.1 (3.5-5.0) g/dL /03/08 Range/Units 21:34 WBC (3.8-10.6) k/uL RBC (3.80-5.40) m/uL Hgb (11.4-16.0) gm/dL Hct (34.0-46.0) % MCV (80.0-100.0) fL MCH (25.0-35.0) pg MCHC (31.0-37.0) g/dL RDW (11.5-15.5) % Plt Count (150-450) k/uL MPV Neutrophils % % Lymphocytes % % Monocytes % % Eosinophils % % Basophils % % Neutrophils # (1.3-7.7) k/uL Lymphocytes # (1.0-4.8) k/uL Monocytes # (0-1.0) k/uL Eosinophils # (0-0.7) k/uL Basophils # (0-0.2) k/uL PT (9.0-12.0) sec INR (<1.2) APTT (22.0-30.0) sec Sodium (137-145) mmol/L Potassium (3.5-5.1) mmol/L Chloride (98-107) mmol/L Carbon Dioxide (22-30) mmol/L Anion Gap mmol/L BUN (7-17) mg/dL Creatinine (0.52-1.04) mg/dL Est GFR (CKD-EPI)AfAm (>60 ml/min/1.73 sqM) Est GFR (CKD-EPI)NonAf (>60 ml/min/1.73 sqM) Glucose (74-99) mg/dL Calcium (8.4-10.2) mg/dL Magnesium (1.6-2.3) mg/dL Total Bilirubin (0.2-1.3) mg/dL AST (14-36) U/L ALT (4-34) U/L Alkaline Phosphatase (38-126) U/L Troponin I <0.012 (0.000-0.034) ng/mL Total Protein (6.3-8.2) g/dL Albumin (3.5-5.0) g/dL Disposition Clinical Impression: Chest pain, Syncope, Dehydration Disposition: ADMITTED IP TO THIS HOSP Condition: Stable Is patient prescribed a controlled substance at d/c from ED?: No Referrals: Sahra Elder MD [Primary Care Provider] - 1-2 days Time of Disposition: 23:43
--- NOTE | 2023-01-22 21:57 | XR ---
EXAMINATION TYPE: XR chest 2V DATE OF EXAM: 01/22/2023 COMPARISON: 10/04/2022 HISTORY: 63-year-old female with syncope TECHNIQUE: AP and lateral views FINDINGS: Heart upper limits of normal in size. Aorta and pulmonary vasculature within normal limits. Some stra ndy atelectasis at the left base. Calcified granuloma left lower lung from prior granulomatous diseas e. Interstitial prominence is a chronic appearance. No definite consolidation or pleural effusion. IMPRESSION: Borderline heart size and chronic appearing changes along with evidence of prior granulomatous diseas e.
[2023-01-22 21:58] LABS: INR 0.9 (<1.2); Prothrombin Time 9.8 sec (9.0-12.0)
[2023-01-22 21:59] LABS: Basophils % (A) 1 %; Eosinophils # (A) 0.4 k/uL (0-0.7); Eosinophils % (A) 7 %; HCT 32.9 % (34.0-46.0); HGB 10.9 gm/dL (11.4-16.0); Lymphocytes # (A) 2.4 k/uL (1.0-4.8); Lymphocytes % (A) 39 %; MCHC 33.2 g/dL (31.0-37.0); MCV 90.4 fL (80.0-100.0); Mean Platelet Volume 8.4; Monocytes # (A) 0.3 k/uL (0-1.0); Monocytes % (A) 4 %; Neutrophils # (A) 2.9 k/uL (1.3-7.7); Neutrophils % (A) 48 %; Partial Thromboplastin Time 20.7 sec (22.0-30.0); Platelet Count 252 k/uL (150-450); RBC 3.64 m/uL (3.80-5.40); RDW 14.3 % (11.5-15.5); WBC 6.1 k/uL (3.8-10.6)
[2023-01-22 22:01] LABS: ALT 16 U/L (4-34); AST 21 U/L (14-36); African American GFR (CKD) 39 (>60 ml/min/1.73 sqM); Albumin 4.1 g/dL (3.5-5.0); Alkaline Phosphatase 110 U/L (38-126); Anion Gap 14 mmol/L; Blood Urea Nitrogen 24 mg/dL (7-17); Calcium 9.6 mg/dL (8.4-10.2); Carbon Dioxide 21 mmol/L (22-30); Chloride 98 mmol/L (98-107); Glucose 157 mg/dL (74-99); Magnesium 2.2 mg/dL (1.6-2.3); Non-African American GFR(CKD) 34 (>60 ml/min/1.73 sqM); Potassium 4.8 mmol/L (3.5-5.1); Sodium 133 mmol/L (137-145); Total Bilirubin 0.3 mg/dL (0.2-1.3); Total Protein 7.2 g/dL (6.3-8.2)
--- NOTE | 2023-01-22 23:15 | CT ---
EXAM: CT Head Without Intravenous Contrast CLINICAL HISTORY: ITS.REASON CT Reason: syncope TECHNIQUE: Axial computed tomography images of the head/brain without intravenous contrast. CTDI is 49.27 mGy and DLP is 1082.4 mGy-cm. This CT exam was performed using one or more of the following dose reduction techniques: automated exposure control, adjustment of the mA and/or kV according to patient size, and/or use of iterative reconstruction technique. COMPARISON: No relevant prior studies available. FINDINGS: Brain: No intracranial hemorrhage, mass-effect, or cerebral edema. Chronic infarcts involving the right parietal and occipital lobes. Ventricles: Unremarkable. Bones/joints: Unremarkable. No fracture. Soft tissues: Unremarkable. Sinuses: No acute sinusitis. Mastoid air cells: Unremarkable as visualized. IMPRESSION: No acute intracranial abnormality.
[2023-01-22] MEDS ORDERED: ACETAMINOPHEN TAB 325 MG TAB PO PRN (23:38)
[2023-01-22] MEDS ORDERED: NALOXONE 0.4 MG/ML 1 ML VIAL IV PRN (23:38)
[2023-01-22] MEDS ORDERED: ONDANSETRON 4 MG/2 ML VIAL IVP PRN (23:38)
[2023-01-23 03:06] LABS: Appearance,Urine Cloudy (Clear); Bilirubin,Urine Negative (Negative); Blood,Urine Negative (Negative); Color,Urine Yellow; Glucose,Urine (UA) 4+ (Negative); Hyaline Casts,Urine 17 /lpf (0-2); Ketones,Urine Negative (Negative); Leukocyte Esterase,Urine Moderate (Negative); Mucus,Urine Rare /hpf; Nitrite,Urine Negative (Negative); Protein,Urine Negative (Negative); RBC,Urine 3 /hpf (0-5); Specific Gravity,Urine 1.012 (1.001-1.035); Squamous Epithelial Cell,Urine 4 /hpf (0-4); Urobilinogen,Urine <2.0 mg/dL (<2.0); WBC,Urine 5 /hpf (0-5)
[2023-01-23 05:24] LABS: African American GFR (CKD) 46 (>60 ml/min/1.73 sqM); Anion Gap 7 mmol/L; Blood Urea Nitrogen 25 mg/dL (7-17); Calcium 8.1 mg/dL (8.4-10.2); Carbon Dioxide 22 mmol/L (22-30); Chloride 102 mmol/L (98-107); Glucose 434 mg/dL (74-99); Non-African American GFR(CKD) 40 (>60 ml/min/1.73 sqM); Potassium 5.7 mmol/L (3.5-5.1); Sodium 131 mmol/L (137-145)
[2023-01-23 06:11] LABS: Glucose,Whole Blood 513 mg/dL (70-110)
[2023-01-23] MEDS ORDERED: DEXTROSE 50% SYRINGE 50 ML IVP PRN ×2 (06:42)
[2023-01-23] MEDS ORDERED: INSULIN ASPART (NovoLOG) 100 UNIT/ML VIAL SQ ONE (06:45)
[2023-01-23] MEDS: INSULIN ASPART (NovoLOG) 100 UNIT/ML VIAL SQ SCH ×6 (06:58→17:39)
[2023-01-23] MEDS ORDERED: INSULIN DETEMIR (LEVEMIR) 100 UNIT/ML SYR SQ SCH (07:30)
[2023-01-23 08:41] LABS: Glucose,Whole Blood 451 mg/dL (70-110)
[2023-01-23] MEDS: TICAGRELOR 90 MG TAB PO SCH ×2 (08:49→19:43)
[2023-01-23] MEDS: ASPIRIN 81 MG PO SCH (08:49)
[2023-01-23] MEDS: LOSARTAN 25 MG TAB PO SCH (08:49)
[2023-01-23] MEDS: METOPROLOL SUCCINATE (ER) 50 MG TAB.ER.24H PO SCH (08:49)
[2023-01-23] MEDS: ATORVASTATIN 80 MG TAB PO SCH (08:49)
[2023-01-23] MEDS: ISOSORBIDE DINITRATE 10 MG TAB PO SCH ×2 (08:50→19:43)
[2023-01-23] MEDS ORDERED: LOSARTAN 50 MG TAB PO SCH (09:00)
--- NOTE | 2023-01-23 09:23 | P.CRDCN ---
History of Present Illness History of present illness: HISTORY OF PRESENT ILLNESS: This is a 63-year-old female with a past medical history significant for hypertension, hyperlipidemia, diabetes, and nonobstructive coronary artery disease. Patient follows in the office with Dr. Sierra. We have been asked to see the patient in consultation for syncope. Patient examined at the bedside. Patient states that she was hanging out with a couple of her friends outside yesterday when she collapsed. She states that she was standing up in the next thing she knew she was on the ground. She states that her friends reported she was out for approximately 1 minute. She reports feeling dizzy and short of breath when she came to. Prior to this she denied any chest pain or pressure. She denied shortness of breath. She denied dizziness or lightheadedness. She denied any warning signs that she was about to pass out. The patient's blood pressures are running on the lower side with systolics in the 90s. The patient reports at home her blood pressures have been running 180s/110s. * EKG reveals sinus mechanism with no signs of acute ischemia. * Chest xray borderline heart size and chronic appearing changes along with e vidence of prior granulomatous disease * Laboratory data: WBC 6.1. Hemoglobin 10.9. Platelet count 252. Sodium 131. Potassium 5.7. BUN 25. Creatinine 1.41. Troponin negative 3. 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 HEENT: Denies blurred vision, vision changes, or eye pain. Denies hemoptysis CARDIOVASCULAR: Denies chest pain. Denies orthopnea. Denies PND. Denies palpitations RESPIRATORY: Denies shortness of breath. GASTROINTESTINAL: Denies abdominal pain. Denies nausea or vomiting. HEMATOLOGIC: Denies bleeding disorders. GENITOURINARY: Denies any blood in urine. SKIN: Denies pruitis. Denies rash. PHYSICAL EXAM: VITAL SIGNS: Reviewed. GENERAL: Well-developed in no acute distress. HEENT: Head is normocephalic. Pupils are equal, round. Sclerae anicteric. Mucous membranes of the mouth are moist. Neck supple. No JVD or thyromegaly LUNGS: Respirations even and unlabored. Lungs essentially clear to auscultation bilaterally. HEART: Regular rate and rhythm. S1 and S2 heard. ABDOMEN: Soft. Nondistended. Nontender. EXTREMITIES: Normal range of motion. No clubbing or cyanosis. Peripheral pulses intact. No lower extremity edema NEUROLOGIC: Awake and alert. Oriented x 3. ASSESSMENT: Syncope Nonobstructive coronary artery disease Borderline hypotension History of hypertension History of hyperlipidemia Diabetes PLAN: Patient had recent echocardiogram performed at [facility]. Obtain records Obtain orthostatic blood pressures Resume home cardiac medications Decrease losartan to 25 mg daily Continue telemetry monitoring Further recommendations pending patient's course Nurse practitioner note has been reviewed by physician. Signing provider agrees with the documented findings, assessment, and plan of care. Past Medical History Past Medical History: Coronary Artery Disease (CAD), Cancer, COPD, CVA/TIA, Diabetes Mellitus, Deep Vein Thrombosis (DVT), Eye Disorder, GERD/Reflux, Hyperlipidemia, Hypertension, Myocardial Infarction (LA), Renal Disease, Rheumatoid Arthritis (RA), Sleep Apnea/CPAP/BIPAP, Syncope, Thyroid Disorder Additional Past Medical History / Comment(s): 09/16/16 with SBO with surgery/possible septic emboli with cavitary lesions bilateral lungs. 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 coli Nov2015 requiring PICC line insertion for IV antibiotics, restless leg syndrome, peripheral neuropathy. Hx bilateral glaucoma, hx syncope r/t low blood sugars. No CPAP use. pt states had high blood sugar 1 week ago and was seen an [facility]. Last Myocardial Infarction Date:: 2019 History of Any Multi-Drug Resistant Organisms: ESBL, MRSA, VRE Date of last positivie culture/infection: 05/07/16 ESBL, 05/15/16 VRE, MRSA 09/2017 - upper lip MDRO Source:: URINE E.COLI, EC GALLINARUM Past Surgical History: Appendectomy, Bowel Resection, Section, Heart Catheterization, Heart Catheterization With Stent, Hernia Repair Additional Past Surgical History / Comment(s): 09/30 exploratory laparotomy with lysis of adhesions, bowel resection d/t obstruction. repair incarcerated incisional hernia with abdominal washout, thyroidectomy(non functioning), heart cath 06/28 - 100% occluded, unable to stent, partial left nephrectomy for left kidney renal cell carcinoma, PICC line insertion (since removed), colonoscopy, bilateral cataract removal with lens implants, 2 Sections. cardiac Stent 03/2021 Past Anesthesia/Blood Transfusion Reactions: No Reported Reaction Date of Last Stent Placement:: 04/06/2021 Past Psychological History: Depression Additional Psychological History / Comment(s): . Smoking Status: Current every day smoker Past Alcohol Use History: None Reported Additional Past Alcohol Use History / Comment(s): STARTED SMOKING AT AGE 8, smoked one to one and half packs per day for 50 years. PT STATES SMOKES 3-4 packs PER DAY TRYING TO QUIT. Past Drug Use History: Marijuana Additional Drug Use History / Comment(s): Uses marijuana daily. Hx of addiction to cocaine, has not used in 20 years. - Past Family History Sister(s) Family Medical History: Cancer, Deep Vein Thrombosis (DVT) Additional Family Medical History / Comment(s): Patient has one sister that from liver cancer. Brother(s) Family Medical History: Cancer, Deep Vein Thrombosis (DVT) Additional Family Medical History / Comment(s): Patient has 1 brother with past ETOH, past drug abuse, DVTs. She has a second brother that has from throat cancer. Daughter(s) Family Medical History: Diabetes Mellitus, Myocardial Infarction (LA) Additional Family Medical History / Comment(s): Daughter at 23 yrs old from massive LA. Father Family Medical History: Myocardial Infarction (LA) Additional Family Medical History / Comment(s): from LA at age 44 Mother Family Medical History: Cancer Additional Family Medical History / Comment(s): B/L breast cancer Medications and Allergies Home Medications Medication Instructions Recorded Confirmed Type Venlafaxine HCl [Effexor XR] 225 mg PO DAILY 10/21/16 01/22/23 History Pantoprazole Sodium [Protonix] 40 mg PO BID 04/06/20 01/22/23 History Cariprazine HCl [Vraylar] 1.5 mg PO HS 05/13/20 01/22/23 History Isosorbide Dinitrate [Isordil] 10 mg PO BID 10/31/20 01/22/23 History Meclizine [Antivert] 25 mg PO TID PRN 01/16/21 01/22/23 History Nitroglycerin Sl Tabs [Nitrostat] 0.4 mg SL Q5M PRN 02/27/21 01/22/23 History Ferrous Sulfate [Iron (65 MG 325 mg PO DAILY 10/02/21 01/22/23 History Elemental)] Cetirizine HCl [Zyrtec] 10 mg PO DAILY 07/15/22 01/22/23 History Cholecalciferol [Vitamin D3 (125 125 mcg PO TID 07/15/22 01/22/23 History Mcg = 5000 Iu)] Gabapentin 300 mg PO TID 07/15/22 01/22/23 History Glucagon [Baqsimi] 1 spray NASAL DIRECTED PRN 07/15/22 01/22/23 History Ipratropium-Albuterol Nebulize 3 ml INHALATION RT-QID PRN 07/15/22 01/22/23 History [Duoneb 0.5 mg-3 mg/3 ml Soln] Levothyroxine Sodium [Synthroid] 50 mcg PO DAILY 07/15/22 01/22/23 History Levothyroxine Sodium [Synthroid] 200 mcg PO DAILY 07/15/22 01/22/23 History Magnesium Oxide [Mag-Ox] 400 mg PO DAILY 07/15/22 01/22/23 History Multivitamins, Thera [Multivitamin 1 tab PO DAILY 07/15/22 01/22/23 History (formulary)] calcitrioL [Calcitriol] 0.25 mcg PO SA 07/15/22 01/22/23 History Ticagrelor [Brilinta] 90 mg PO BID 60 Days #60 tab 07/20/22 01/22/23 Rx Acetaminophen Tab [Tylenol] 650 mg PO Q6HR PRN tab 09/04/22 01/22/23 Rx Aspirin EC [Ecotrin Low Dose] 81 mg PO DAILY 10/03/22 01/22/23 History Butalb/APAP/Caff 50-325-40Mg 1 tab PO BID PRN 10/03/22 01/22/23 History [Fioricet 50-325-40] INSULIN LISPRO (HumaLOG) [humaLOG] 6 units SQ AC-TID 10/03/22 01/22/23 History INSULIN LISPRO (HumaLOG) [humaLOG] See Protocol SQ AC-TID 10/03/22 01/22/23 History Sucralfate [Carafate] 1 gm PO ACHS 10/03/22 01/22/23 History rOPINIRole HCL [Requip] 0.5 mg PO BID 10/03/22 01/22/23 History traZODone HCL [Desyrel] 50 mg PO HS 10/03/22 01/22/23 History Insulin Glargine [Lantus Vial] 26 unit SQ BID #0 10/07/22 01/22/23 Rx Loperamide [Imodium] 2 mg PO TID PRN #21 capsule 10/07/22 01/22/23 Rx Dicyclomine HCl 10 mg PO BID 01/05/23 01/22/23 History HYDROcodone/APAP 7.5-325MG [Andes 1 tab PO BID PRN 01/05/23 01/22/23 History 7.5-325] Rosuvastatin Calcium [Crestor] 40 mg PO DAILY 01/05/23 01/22/23 History Losartan [Cozaar] 50 mg PO DAILY #30 tab 01/07/23 01/22/23 Rx Metoclopramide HCl [Reglan] 5 mg PO TID PRN #30 tablet 01/07/23 01/22/23 Rx Metoprolol Succinate (ER) [Toprol 50 mg PO DAILY 30 Days #30 tab 01/07/23 01/22/23 Rx XL] Ondansetron Odt [Zofran Odt] 4 mg PO Q8HR PRN #10 tab 01/07/23 01/22/23 Rx Allergies Allergy/AdvReac Type Severity Reaction Status Date / Time grass pollen Allergy Unknown Verified 01/22/23 22:32 latex Allergy Rash/Hives Verified 01/22/23 22:32 Sulfa (Sulfonamide Allergy Rash/Hives/ Verified 01/22/23 22:32 Antibiotics) Swelling venom-honey bee Allergy Anaphylaxis Verified 01/22/23 22:32 morphine AdvReac Decreased Verified 01/22/23 22:32 Blood Pressure prochlorperazine edisylate AdvReac Vomiting Verified 01/22/23 22:32 [From Compazine] Physical Exam Vitals: Vital Signs Temp Pulse Pulse Resp BP BP Pulse Ox 01/23/23 08:00 98.3 F 79 18 111/66 99 01/23/23 04:00 74 18 106/63 96 01/23/23 02:30 98 F 76 16 93/54 96 01/23/23 01:40 82 18 97/62 97 01/23/23 00:04 74 18 108/65 94 L 01/22/23 22:39 71 18 109/61 100 01/22/23 21:35 71 18 96/60 100 Intake and Output 01/22/23 01/23/23 01/23/23 22:59 06:59 14:59 Intake Total 250 Balance 250 Intake: IV 10 Invasive Line 1 10 Oral 240 Other: Voiding Method Bedpan Weight 56.245 kg 56.245 kg Results 01/22/23 21:34 01/23/23 04:31 Cardiac Enzymes 01/22/23 01/22/23 01/23/23 Range/Units 21:34 21:34 01:07 AST 21 (14-36) U/L Troponin I <0.012 <0.012 (0.000-0.034) ng/mL 01/23/23 Range/Units 04:31 AST (14-36) U/L Troponin I <0.012 (0.000-0.034) ng/mL Coagulation 01/22/23 Range/Units 21:34 PT 9.8 (9.0-12.0) sec APTT 20.7 L (22.0-30.0) sec CBC 01/22/23 Range/Units 21:34 WBC 6.1 (3.8-10.6) k/uL RBC 3.64 L (3.80-5.40) m/uL Hgb 10.9 L (11.4-16.0) gm/dL Hct 32.9 L (34.0-46.0) % Plt Count 252 (150-450) k/uL Comprehensive Metabolic Panel 01/22/23 01/23/23 Range/Units 21:34 04:31 Sodium 133 L 131 L (137-145) mmol/L Potassium 4.8 5.7 H (3.5-5.1) mmol/L Chloride 98 102 (98-107) mmol/L Carbon Dioxide 21 L 22 (22-30) mmol/L BUN 24 H 25 H (7-17) mg/dL Creatinine 1.60 H 1.41 H (0.52-1.04) mg/dL Glucose 157 H 434 H (74-99) mg/dL Calcium 9.6 8.1 L (8.4-10.2) mg/dL AST 21 (14-36) U/L ALT 16 (4-34) U/L Alkaline Phosphatase 110 (38-126) U/L Total Protein 7.2 (6.3-8.2) g/dL Albumin 4.1 (3.5-5.0) g/dL Current Medications Generic Name Dose Route Start Last Admin Trade Name Freq PRN Reason Stop Dose Admin Acetaminophen 650 mg 01/22/23 23:38 01/23/23 08:49 Acetaminophen Tab 325 Mg Tab PO 650 mg Q6HR PRN Administration Mild Pain or Fever > 100.5 Aspirin 81 mg 01/23/23 09:00 01/23/23 08:49 Aspirin 81 Mg PO 81 mg DAILY DURGA Administration Atorvastatin Calcium 80 mg 01/23/23 09:00 01/23/23 08:49 Atorvastatin 80 Mg Tab PO 80 mg DAILY DURGA Administration Dextrose/Water 25 ml 01/23/23 06:42 Dextrose 50% Syringe 50 Ml IVP PER PROTOCOL PRN Hypoglycemia Protocol Dextrose/Water 50 ml 01/23/23 06:42 Dextrose 50% Syringe 50 Ml IVP PER PROTOCOL PRN Hypoglycemia Protocol Sodium Chloride 1,000 mls @ 75 mls/hr 01/22/23 23:45 01/23/23 00:00 Saline 0.9% IV 75 mls/hr .[id number] DURGA Administration Insulin Aspart 6 unit 01/23/23 07:30 01/23/23 06:58 Insulin Aspart (Novolog) 100 Unit/Ml Vial SQ 6 unit AC-TID DURGA Administration Insulin Aspart 0 unit 01/23/23 07:30 01/23/23 08:50 Insulin Aspart (Novolog) 100 Unit/Ml Vial SQ 18 unit AC-TID DURGA Administration Protocol Insulin Detemir 26 unit 01/23/23 07:30 01/23/23 06:58 Insulin Detemir (Levemir) 100 Unit/Ml Syr SQ 26 unit BID@0730,2100 DURGA Administration Isosorbide Dinitrate 10 mg 01/23/23 09:00 01/23/23 08:50 Isosorbide Dinitrate 10 Mg Tab PO 10 mg BID DURGA Administration Losartan Potassium 25 mg 01/23/23 09:00 01/23/23 08:49 Losartan 25 Mg Tab PO 25 mg DAILY DURGA Administration Metoprolol Succinate 50 mg 01/23/23 09:00 01/23/23 08:49 Metoprolol Succinate (Er) 50 Mg Tab.Er.24h PO 50 mg DAILY DURGA Administration Naloxone HCl 0.2 mg 01/22/23 23:38 Naloxone 0.4 Mg/Ml 1 Ml Vial IV Q2M PRN Opioid Reversal Ondansetron HCl 4 mg 01/22/23 23:38 Ondansetron 4 Mg/2 Ml Vial IVP Q8HR PRN Nausea And Vomiting Ticagrelor 90 mg 01/23/23 09:00 01/23/23 08:49 Ticagrelor 90 Mg Tab PO 90 mg BID DURGA Administration Intake and Output 01/22/23 01/23/23 01/23/23 22:59 06:59 14:59 Intake Total 250 Balance 250 Intake: IV 10 Invasive Line 1 10 Oral 240 Other: Voiding Method Bedpan Weight 56.245 kg 56.245 kg 01/22/23 21:34 01/23/23 04:31
[2023-01-23] MEDS ORDERED: MECLIZINE 25 MG TAB PO PRN (09:49)
[2023-01-23] MEDS ORDERED: METOCLOPRAMIDE 5 MG TAB PO PRN (09:49)
[2023-01-23] MEDS ORDERED: BUTALB/APAP/CAFF 50-325-40MG TAB PO PRN (09:49)
[2023-01-23 09:57] LABS: Glucose,Whole Blood 278 mg/dL (70-110)
[2023-01-23 12:04] LABS: Glucose,Whole Blood 53 mg/dL (70-110)
[2023-01-23 12:26] LABS: Glucose,Whole Blood 61 mg/dL (70-110)
[2023-01-23] MEDS: IPRATROPIUM-ALBUTEROL 3 ML NEB INHALATION PRN (12:30)
[2023-01-23 12:42] LABS: Glucose,Whole Blood 42 mg/dL (70-110)
[2023-01-23 12:51] LABS: Glucose,Whole Blood 61 mg/dL (70-110)
--- NOTE | 2023-01-23 13:11 | P.HPIM ---
History of Present Illness H&P Date: 01/23/23 patient is 63-year-old lady past medical history significant for hypertension, hyperlipidemia, diabetes, and nonobstructive coronary artery disease who presented to the ER because of a syncopal episode. Patient was out with her friends when suddenly she collapsed, she lost consciousness for a brief moment, when patient regained consciousness she was not confused. There was no complaint of palpitations or shortness of breath preceding this event. Following that EMS was called and on her way to the ER, patient did complain of some chest pressure and central in location. No compression of shortness of breath. No complaint of palpitations. Denies any fever or chills. Patient was worked up in the ER. Initial lab work done in the ER showed WBC 6.1, hemoglobin 10.9, platelet count 252, sodium 1:30, potassium 4.8, BUN 24, creatinine 1.6, troponin 0.012 EKG done in the ER showed normal sinus rhythm, heart rate of 76, no ST segment elevation, no T-wave inversions in anterior leads Chest x-ray done in the ER showed borderline heart size and a chronic-appearing changes along with evidence of prior granulomatous disease CT brain negative for any acute intracranial abnormality Patient admitted to medicine service REVIEW OF SYSTEMS: CONSTITUTIONAL: No fever, no malaise, no fatigue. HEENT: No recent visual problems or hearing problems. Denied any sore throat. CARDIOVASCULAR: As mentioned in HPI PULMONARY: No shortness of breath, no cough, no hemoptysis. GASTROINTESTINAL: No diarrhea, no nausea, no vomiting, no abdominal pain. NEUROLOGICAL: No headaches, no weakness, no numbness. HEMATOLOGICAL: Denies any bleeding or petechiae. GENITOURINARY: Denies any burning micturition, frequency, or urgency. MUSCULOSKELETAL/RHEUMATOLOGICAL: Denies any joint pain, swelling, or any muscle pain. ENDOCRINE: Denies any polyuria or polydipsia. The rest of the 14-point review of systems is negative. PHYSICAL EXAMINATION: GENERAL: The patient is alert and oriented x3, not in any acute distress. Well developed, well nourished. HEENT: Pupils are round and equally reacting to light. EOMI. No scleral icterus. No conjunctival pallor. Normocephalic, atraumatic. No pharyngeal erythema. No thyromegaly. CARDIOVASCULAR: S1 and S2 present. No murmurs, rubs, or gallops. PULMONARY: Chest is clear to auscultation, no wheezing or crackles. ABDOMEN: Soft, nontender, nondistended, normoactive bowel sounds. No palpable organomegaly. MUSCULOSKELETAL: No joint swelling or deformity. EXTREMITIES: No cyanosis, clubbing, or pedal edema. NEUROLOGICAL: Gross neurological examination did not reveal any focal deficits. SKIN: No rashes. Assessment and plan Syncope Nonobstructive coronary artery disease Borderline hypotension History of hypertension History of hyperlipidemia Insulin-dependent diabetes mellitus GERD Monitor vital signs Monitor CBC Monitor CMP Continue telemetry monitoring Trend troponins 2-D echo ordered Resume home meds Consult cardiology Labs and medication were reviewed.. Continue same treatment. Continue with symptomatic treatment. Resume home medication. Monitor labs and vitals. DVT and GI prophylaxis. Further recommendations as per clinical course of the patient Dictation was produced using [employer] dictation software. please excuse any grammatical, word or spelling errors. Past Medical History Past Medical History: Coronary Artery Disease (CAD), Cancer, COPD, CVA/TIA, Diabetes Mellitus, Deep Vein Thrombosis (DVT), Eye Disorder, GERD/Reflux, Hyperlipidemia, Hypertension, Myocardial Infarction (MD), Renal Disease, Rheumatoid Arthritis (RA), Sleep Apnea/CPAP/BIPAP, Syncope, Thyroid Disorder Additional Past Medical History / Comment(s): 09/16/16 with SBO with surgery/possible septic emboli with cavitary lesions bilateral lungs. 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 coli 2015 requiring PICC line insertion for IV antibiotics, restless leg syndrome, peripheral neuropathy. Hx bilateral glaucoma, hx syncope r/t low blood sugars. No CPAP use. pt states had high blood sugar 1 week ago and was seen an [facility]. Last Myocardial Infarction Date:: 2019 History of Any Multi-Drug Resistant Organisms: ESBL, MRSA, VRE Date of last positivie culture/infection: 05/07/16 ESBL, 05/15/16 VRE, MRSA 09/2017 - upper lip MDRO Source:: URINE E.COLI, EC GALLINARUM Past Surgical History: Appendectomy, Bowel Resection, Section, Heart Catheterization, Heart Catheterization With Stent, Hernia Repair Additional Past Surgical History / Comment(s): 09/30 exploratory laparotomy with lysis of adhesions, bowel resection d/t obstruction. repair incarcerated incisional hernia with abdominal washout, thyroidectomy(non functioning), heart cath 06/28 - 100% occluded, unable to stent, partial left nephrectomy for left kidney renal cell carcinoma, PICC line insertion (since removed), colonoscopy, bilateral cataract removal with lens implants, 2 Sections. cardiac Stent 03/2021 Past Anesthesia/Blood Transfusion Reactions: No Reported Reaction Date of Last Stent Placement:: 04/06/2021 Past Psychological History: Depression Additional Psychological History / Comment(s): . Smoking Status: Current every day smoker Past Alcohol Use History: None Reported Additional Past Alcohol Use History / Comment(s): STARTED SMOKING AT AGE 8, smoked one to one and half packs per day for 50 years. PT STATES SMOKES 3-4 packs PER DAY TRYING TO QUIT. Past Drug Use History: Marijuana Additional Drug Use History / Comment(s): Uses marijuana daily. Hx of addiction to cocaine, has not used in 20 years. - Past Family History Sister(s) Family Medical History: Cancer, Deep Vein Thrombosis (DVT) Additional Family Medical History / Comment(s): Patient has one sister that from liver cancer. Brother(s) Family Medical History: Cancer, Deep Vein Thrombosis (DVT) Additional Family Medical History / Comment(s): Patient has 1 brother with past ETOH, past drug abuse, DVTs. She has a second brother that has from throat cancer. Daughter(s) Family Medical History: Diabetes Mellitus, Myocardial Infarction (MD) Additional Family Medical History / Comment(s): Daughter at 23 yrs old from massive MD. Father Family Medical History: Myocardial Infarction (MD) Additional Family Medical History / Comment(s): from MD at age 44 Mother Family Medical History: Cancer Additional Family Medical History / Comment(s): B/L breast cancer Medications and Allergies Home Medications Medication Instructions Recorded Confirmed Type Venlafaxine HCl [Effexor XR] 225 mg PO DAILY 10/21/16 01/22/23 History Pantoprazole Sodium [Protonix] 40 mg PO BID 04/06/20 01/22/23 History Cariprazine HCl [Vraylar] 1.5 mg PO HS 05/13/20 01/22/23 History Isosorbide Dinitrate [Isordil] 10 mg PO BID 10/31/20 01/22/23 History Meclizine [Antivert] 25 mg PO TID PRN 01/16/21 01/22/23 History Nitroglycerin Sl Tabs [Nitrostat] 0.4 mg SL Q5M PRN 02/27/21 01/22/23 History Ferrous Sulfate [Iron (65 MG 325 mg PO DAILY 10/02/21 01/22/23 History Elemental)] Cetirizine HCl [Zyrtec] 10 mg PO DAILY 07/15/22 01/22/23 History Cholecalciferol [Vitamin D3 (125 125 mcg PO TID 07/15/22 01/22/23 History Mcg = 5000 Iu)] Gabapentin 300 mg PO TID 07/15/22 01/22/23 History Glucagon [Baqsimi] 1 spray NASAL DIRECTED PRN 07/15/22 01/22/23 History Ipratropium-Albuterol Nebulize 3 ml INHALATION RT-QID PRN 07/15/22 01/22/23 History [Duoneb 0.5 mg-3 mg/3 ml Soln] Levothyroxine Sodium [Synthroid] 50 mcg PO DAILY 07/15/22 01/22/23 History Levothyroxine Sodium [Synthroid] 200 mcg PO DAILY 07/15/22 01/22/23 History Magnesium Oxide [Mag-Ox] 400 mg PO DAILY 07/15/22 01/22/23 History Multivitamins, Thera [Multivitamin 1 tab PO DAILY 07/15/22 01/22/23 History (formulary)] calcitrioL [Calcitriol] 0.25 mcg PO SA 07/15/22 01/22/23 History Ticagrelor [Brilinta] 90 mg PO BID 60 Days #60 tab 07/20/22 01/22/23 Rx Acetaminophen Tab [Tylenol] 650 mg PO Q6HR PRN tab 09/04/22 01/22/23 Rx Aspirin EC [Ecotrin Low Dose] 81 mg PO DAILY 10/03/22 01/22/23 History Butalb/APAP/Caff 50-325-40Mg 1 tab PO BID PRN 10/03/22 01/22/23 History [Fioricet 50-325-40] INSULIN LISPRO (HumaLOG) [humaLOG] 6 units SQ AC-TID 10/03/22 01/22/23 History INSULIN LISPRO (HumaLOG) [humaLOG] See Protocol SQ AC-TID 10/03/22 01/22/23 History Sucralfate [Carafate] 1 gm PO ACHS 10/03/22 01/22/23 History rOPINIRole HCL [Requip] 0.5 mg PO BID 10/03/22 01/22/23 History traZODone HCL [Desyrel] 50 mg PO HS 10/03/22 01/22/23 History Insulin Glargine [Lantus Vial] 26 unit SQ BID #0 10/07/22 01/22/23 Rx Loperamide [Imodium] 2 mg PO TID PRN #21 capsule 10/07/22 01/22/23 Rx Dicyclomine HCl 10 mg PO BID 01/05/23 01/22/23 History HYDROcodone/APAP 7.5-325MG [[place] 1 tab PO BID PRN 01/05/23 01/22/23 History 7.5-325] Rosuvastatin Calcium [Crestor] 40 mg PO DAILY 01/05/23 01/22/23 History Losartan [Cozaar] 50 mg PO DAILY #30 tab 01/07/23 01/22/23 Rx Metoclopramide HCl [Reglan] 5 mg PO TID PRN #30 tablet 01/07/23 01/22/23 Rx Metoprolol Succinate (ER) [Toprol 50 mg PO DAILY 30 Days #30 tab 01/07/23 01/22/23 Rx XL] Ondansetron Odt [Zofran Odt] 4 mg PO Q8HR PRN #10 tab 01/07/23 01/22/23 Rx Allergies Allergy/AdvReac Type Severity Reaction Status Date / Time grass pollen Allergy Unknown Verified 01/22/23 22:32 latex Allergy Rash/Hives Verified 01/22/23 22:32 Sulfa (Sulfonamide Allergy Rash/Hives/ Verified 01/22/23 22:32 Antibiotics) Swelling venom-honey bee Allergy Anaphylaxis Verified 01/22/23 22:32 morphine AdvReac Decreased Verified 01/22/23 22:32 Blood Pressure prochlorperazine edisylate AdvReac Vomiting Verified 01/22/23 22:32 [From Compazine] Physical Exam Vitals: Vital Signs Temp Pulse Pulse Resp BP BP BP 01/23/23 13:04 71 18 133/74 01/23/23 12:31 68 16 01/23/23 11:44 98.0 F 66 20 104/61 01/23/23 08:00 98.3 F 79 18 111/66 01/23/23 04:00 74 18 106/63 01/23/23 02:30 98 F 76 16 93/54 01/23/23 01:40 82 18 97/62 01/23/23 00:04 74 18 108/65 01/22/23 22:39 71 18 109/61 01/22/23 21:35 71 18 96/60 Pulse Ox 01/23/23 13:04 98 01/23/23 12:31 100 01/23/23 11:44 98 01/23/23 08:00 99 01/23/23 04:00 96 01/23/23 02:30 96 01/23/23 01:40 97 01/23/23 00:04 94 L 01/22/23 22:39 100 01/22/23 21:35 100 Intake and Output 01/22/23 01/23/23 01/23/23 22:59 06:59 14:59 Intake Total 725 Balance 725 Intake: IV 10 Invasive Line 1 10 Oral 715 Other: Voiding Method Bedpan Bedpan Weight 56.245 kg 56.245 kg Results CBC & Chem 7: 01/22/23 21:34 01/23/23 04:31 Labs: Abnormal Lab Results - Last 24 Hours (Table) 01/22/23 01/22/23 01/22/23 Range/Units 21:34 21:34 21:34 RBC 3.64 L (3.80-5.40) m/uL Hgb 10.9 L (11.4-16.0) gm/dL Hct 32.9 L (34.0-46.0) % APTT 20.7 L (22.0-30.0) sec Sodium 133 L (137-145) mmol/L Potassium (3.5-5.1) mmol/L Carbon Dioxide 21 L (22-30) mmol/L BUN 24 H (7-17) mg/dL Creatinine 1.60 H (0.52-1.04) mg/dL Glucose 157 H (74-99) mg/dL POC Glucose (mg/dL) (70-110) mg/dL Calcium (8.4-10.2) mg/dL Urine Appearance (Clear) Urine Glucose (UA) (Negative) Ur Leukocyte Esterase (Negative) Hyaline Casts (0-2) /lpf Urine Mucus (None) /hpf 01/23/23 01/23/23 01/23/23 Range/Units 02:56 04:31 06:07 RBC (3.80-5.40) m/uL Hgb (11.4-16.0) gm/dL Hct (34.0-46.0) % APTT (22.0-30.0) sec Sodium 131 L (137-145) mmol/L Potassium 5.7 H (3.5-5.1) mmol/L Carbon Dioxide (22-30) mmol/L BUN 25 H (7-17) mg/dL Creatinine 1.41 H (0.52-1.04) mg/dL Glucose 434 H (74-99) mg/dL POC Glucose (mg/dL) 513 H (70-110) mg/dL Calcium 8.1 L (8.4-10.2) mg/dL Urine Appearance Cloudy H (Clear) Urine Glucose (UA) 4+ H (Negative) Ur Leukocyte Esterase Moderate H (Negative) Hyaline Casts 17 H (0-2) /lpf Urine Mucus Rare H (None) /hpf 01/23/23 01/23/23 01/23/23 Range/Units 08:40 09:52 11:50 RBC (3.80-5.40) m/uL Hgb (11.4-16.0) gm/dL Hct (34.0-46.0) % APTT (22.0-30.0) sec Sodium (137-145) mmol/L Potassium (3.5-5.1) mmol/L Carbon Dioxide (22-30) mmol/L BUN (7-17) mg/dL Creatinine (0.52-1.04) mg/dL Glucose (74-99) mg/dL POC Glucose (mg/dL) 451 H 278 H 53 L (70-110) mg/dL Calcium (8.4-10.2) mg/dL Urine Appearance (Clear) Urine Glucose (UA) (Negative) Ur Leukocyte Esterase (Negative) Hyaline Casts (0-2) /lpf Urine Mucus (None) /hpf 01/23/23 01/23/23 01/23/23 Range/Units 12:15 12:36 12:49 RBC (3.80-5.40) m/uL Hgb (11.4-16.0) gm/dL Hct (34.0-46.0) % APTT (22.0-30.0) sec Sodium (137-145) mmol/L Potassium (3.5-5.1) mmol/L Carbon Dioxide (22-30) mmol/L BUN (7-17) mg/dL Creatinine (0.52-1.04) mg/dL Glucose (74-99) mg/dL POC Glucose (mg/dL) 61 L 42 L 61 L (70-110) mg/dL Calcium (8.4-10.2) mg/dL Urine Appearance (Clear) Urine Glucose (UA) (Negative) Ur Leukocyte Esterase (Negative) Hyaline Casts (0-2) /lpf Urine Mucus (None) /hpf Thrombosis Risk Factor Assmnt - Choose All That Apply Any of the Below Risk Factors Present?: Yes Each Risk Factor Represents 2 Points: Age 61-74 years Thrombosis Risk Factor Assessment Total Risk Factor Score: 2 Thrombosis Risk Factor Assessment Level: Low Risk
[2023-01-23 13:18] LABS: Glucose,Whole Blood 81 mg/dL (70-110)
[2023-01-23 13:39] LABS: Glucose,Whole Blood 137 mg/dL (70-110)
[2023-01-23] MEDS: SUCRALFATE 1 GM TAB PO SCH ×3 (13:42→19:43)
[2023-01-23] MEDS: SODIUM CHLORIDE 0.9% 1,000 ML IV SCH ×2 (13:42)
[2023-01-23 16:38] LABS: Glucose,Whole Blood 297 mg/dL (70-110)
--- NOTE | 2023-01-23 17:02 | CA ---
Transthoracic Echo Report Name: Lala Kenyon Age: 63 Gender: F : 1960 Exam Date: 01/23/2023 10:33 Exam Location: [facility] Ht (in): 63 Wt (lb): 124 Ordering Physician: Estella Acosta Attending/Referring Phys: Germán Sierra MD ([id number]) Ambulance Paramedic [facility]ett Procedure CPT: Indications: LV function Cardiac Hx: Technical Quality: Fair Contrast 1: Total Dose (mL): Contrast 2: Total Dose (mL): MEASUREMENTS (Male / Female) Normal Values 2D ECHO LV Diastolic Diameter PLAX 4.3 cm 4.2 - 5.9 / 3.9 - 5.3 cm LV Systolic Diameter PLAX 2.9 cm IVS Diastolic Thickness 1.2 cm 0.6 - 1.0 / 0.6 - 0.9 cm LVPW Diastolic Thickness 1.2 cm 0.6 - 1.0 / 0.6 - 0.9 cm LV Relative Wall Thickness 0.5 RV Internal Dim ED PLAX 2.2 cm LVOT Diameter 2.2 cm Aortic Root Diameter 2.8 cm LA Systolic Diameter LX 2.3 cm 3.0 - 4.0 / 2.7 - 3.8 cm LV Diastolic Volume MOD BP 42.8 cm??? 67 - 155 / 56 - 104 cm??? LV Systolic Volume MOD BP 24.5 cm??? 22 - 58 / 19 - 49 cm??? LV Ejection Fraction MOD BP 42.8 % >= 55 % LV Cardiac Index MOD BP 774.3 cm???/min???m??? LV Diastolic Volume MOD 4C 50.0 cm??? LV Systolic Volume MOD 4C 28.2 cm??? LV Ejection Fraction MOD 4C 43.6 % LV Cardiac Index MOD 4C 921.8 cm???/min???m??? LV Diastolic Length 4C 6.4 cm LV Systolic Length 4C 6.1 cm LV Diastolic Volume MOD 2C 35.7 cm??? LV Systolic Volume MOD 2C 19.7 cm??? LV Ejection Fraction MOD 2C 44.7 % LV Cardiac Index MOD 2C 674.1 cm???/min???m??? LV Diastolic Length 2C 6.6 cm LV Systolic Length 2C 5.7 cm LA Volume 54.8 cm??? 18 - 58 / 22 - 52 cm??? DOPPLER AV Peak Velocity 109.0 cm/s AV Peak Gradient 4.8 mmHg LVOT Peak Velocity 82.9 cm/s LVOT Peak Gradient 2.8 mmHg AV Area Cont Eq pk 3.0 cm??? MV Peak Velocity 89.6 cm/s MV Peak Gradient 3.2 mmHg MV Mean Velocity 45.6 cm/s MV Mean Gradient 1.0 mmHg MV Velocity Time Integral 31.7 cm Mitral E Point Velocity 81.5 cm/s Mitral A Point Velocity 83.1 cm/s Mitral E to A Ratio 1.0 MV Deceleration Time 233.3 ms TR Peak Velocity 194.6 cm/s TR Peak Gradient 15.1 mmHg Right Ventricular Systolic Press 20.2 mmHg PV Peak Velocity 101.2 cm/s PV Peak Gradient 4.1 mmHg FINDINGS Left Ventricle Normal LV size. Moderate concentric LVH. Left ventricular ejection fraction is estimated at 50-55 %. No obvious regional wall motion abnormality. Grade 1 diastolic dysfunction Right Ventricle Normal right ventricular size. RVSP= 19mmhg. Right Atrium Normal right atrial size. Left Atrium LA volume index= 35ml/m2 Mitral Valve Structurally normal mitral valve. Trace MR. Aortic Valve Trileaflet aortic valve. No aortic valve stenosis or regurgitation. Tricuspid Valve Structurally normal tricuspid valve. Mild TR. Pulmonic Valve Structurally normal pulmonic valve. Mild to moderate PI. Pericardium No pericardial effusion Aorta Normal size aortic root and proximal ascending aorta. CONCLUSIONS Normal LV systolic function with estimated EF 50% Moderate concentric LVH No obvious regional wall motion abnormality Grade 1 diastolic dysfunction No significant valvular pathology No significant chamber size abnormality When compared to prior echo from 07/16/2022, LVEF appears marginally better. Continues to have moderate concentric LVH. Previewed by: Dr Anthony Mcghee (Electronically Signed) Final Date: 23 January 2023 17:01
[2023-01-23] MEDS: GABAPENTIN 300 MG CAP PO SCH ×2 (17:39→19:43)
[2023-01-23] MEDS: HYDROcodone/APAP 7.5-325MG 1 EACH TAB PO PRN (17:40)
[2023-01-23] MEDS: CHOLECALCIFEROL 125 MCG (5000 IU) TABLET PO SCH ×2 (17:40→19:44)
[2023-01-23] MEDS: PANTOPRAZOLE 40 MG TABLET PO SCH (19:43)
[2023-01-23] MEDS: DICYCLOMINE 10 MG CAP PO SCH (19:43)
[2023-01-23 20:00] LABS: Glucose,Whole Blood 281 mg/dL (70-110)
[2023-01-23] MEDS: INSULIN DETEMIR (LEVEMIR) 100 UNIT/ML SYR SQ SCH (20:54)
[2023-01-23] MEDS ORDERED: PATIENT'S OWN (Cariprazine Hcl [Vraylar] 1.5 MG Capsule) PO SCH (21:00)
[2023-01-23] MEDS ORDERED: traZODone HCL 50 MG TAB PO SCH (21:00)
[2023-01-24] MEDS: SODIUM CHLORIDE 0.9% 1,000 ML IV SCH (05:12)
[2023-01-24 05:44] LABS: Glucose,Whole Blood 87 mg/dL (70-110)
[2023-01-24] MEDS ORDERED: LEVOTHYROXINE 50 MCG TAB PO SCH (06:30)
[2023-01-24] MEDS: INSULIN ASPART (NovoLOG) 100 UNIT/ML VIAL SQ SCH ×4 (06:30→11:50)
[2023-01-24] MEDS ORDERED: LEVOTHYROXINE 100 MCG TAB PO SCH (06:30)
[2023-01-24] MEDS: SUCRALFATE 1 GM TAB PO SCH ×2 (06:35→11:50)
[2023-01-24] MEDS: INSULIN DETEMIR (LEVEMIR) 100 UNIT/ML SYR SQ SCH (06:36)
[2023-01-24] MEDS: METOPROLOL SUCCINATE (ER) 50 MG TAB.ER.24H PO SCH (08:19)
[2023-01-24] MEDS: LOSARTAN 25 MG TAB PO SCH (08:19)
[2023-01-24] MEDS: ASPIRIN 81 MG PO SCH (08:19)
[2023-01-24] MEDS: ATORVASTATIN 80 MG TAB PO SCH (08:19)
[2023-01-24] MEDS: TICAGRELOR 90 MG TAB PO SCH (08:20)
[2023-01-24] MEDS: ISOSORBIDE DINITRATE 10 MG TAB PO SCH (08:21)
[2023-01-24] MEDS: GABAPENTIN 300 MG CAP PO SCH (08:21)
[2023-01-24] MEDS: PANTOPRAZOLE 40 MG TABLET PO SCH (08:21)
[2023-01-24] MEDS: DICYCLOMINE 10 MG CAP PO SCH (08:22)
[2023-01-24] MEDS: CHOLECALCIFEROL 125 MCG (5000 IU) TABLET PO SCH (08:22)
[2023-01-24 08:29] VITALS: RESP 16
[2023-01-24] MEDS: HYDROcodone/APAP 7.5-325MG 1 EACH TAB PO PRN (08:49)
[2023-01-24] MEDS ORDERED: FERROUS SULFATE 325 MG TAB PO SCH (09:00)
[2023-01-24] MEDS ORDERED: VENLAFAXINE HCL ER 75 MG CAP PO SCH (09:00)
[2023-01-24] MEDS ORDERED: LORATADINE 10 MG TAB PO SCH (09:00)
[2023-01-24] MEDS: IPRATROPIUM-ALBUTEROL 3 ML NEB INHALATION PRN (09:47)
--- NOTE | 2023-01-24 10:50 | P.PN ---
Subjective HISTORY OF PRESENT ILLNESS: This is a 63-year-old female with a past medical history significant for hypertension, hyperlipidemia, diabetes, and nonobstructive coronary artery disease. Patient follows in the office with Dr. Sierra. We have been asked to see the patient in consultation for syncope. Patient examined at the bedside. Patient states that she was hanging out with a couple of her friends outside yesterday when she collapsed. She states that she was standing up in the next thing she knew she was on the ground. She states that her friends reported she was out for approximately 1 minute. She reports feeling dizzy and short of breath when she came to. Prior to this she denied any chest pain or pressure. She denied shortness of breath. She denied dizziness or lightheadedness. She denied any warning signs that she was about to pass out. The patient's blood pressures are running on the lower side with systolics in the 90s. The patient reports at home her blood pressures have been running 180s/110s. * EKG reveals sinus mechanism with no signs of acute ischemia. * Chest xray borderline heart size and chronic appearing changes along with evidence of prior granulomatous disease * Laboratory data: WBC 6.1. Hemoglobin 10.9. Platelet count 252. Sodium 131. Potassium 5.7. BUN 25. Creatinine 1.41. Troponin negative 3. 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 Patient denies chest pain or pressure. She denies shortness of breath and she currently denies dizziness or lightheadedness. Blood pressure improved with a reading of 110/70. 2-D echo obtained at [facility] in November 2022 revealed ejection fraction 55-60%, mild to moderate mitral regurgitation, and mild to moderate tricuspid regurgitation PHYSICAL EXAM: VITAL SIGNS: Reviewed. GENERAL: Well-developed in no acute distress. HEENT: Head is normocephalic. Pupils are equal, round. Sclerae anicteric. Mucous membranes of the mouth are moist. Neck supple. No JVD or thyromegaly LUNGS: Respirations even and unlabored. Lungs essentially clear to auscultation bilaterally. HEART: Regular rate and rhythm. S1 and S2 heard. ABDOMEN: Soft. Nondistended. Nontender. EXTREMITIES: Normal range of motion. No clubbing or cyanosis. Peripheral pulses intact. No lower extremity edema NEUROLOGIC: Awake and alert. Oriented x 3. ASSESSMENT: Syncope Nonobstructive coronary artery disease Borderline hypotension History of hypertension History of hyperlipidemia Diabetes PLAN: Continue decreased dose of losartan 25 mg daily Discontinue Isordil If patient has issues with angina in the future, may utilize Ranexa instead of Isordil/Imdur secondary to soft blood pressures Recheck orthostatic blood pressures today Increase activity today. If patient has no further symptoms, she may be discharged home today from a cardiac standpoint Nurse practitioner note has been reviewed by physician. Signing provider agrees with the documented findings, assessment, and plan of care. Objective - Vital Signs Vital signs: Vital Signs Temp 98.9 F 01/24/23 08:27 Pulse 68 01/24/23 09:57 Resp 16 01/24/23 08:27 BP 110/70 01/24/23 08:27 Pulse Ox 98 01/24/23 08:27 FiO2 Intake & Output 01/23/23 01/24/23 01/24/23 18:59 06:59 18:59 Intake Total 1400 118 120 Output Total 100 900 Balance 1300 -782 120 Intake: IV 10 Invasive Line 1 10 Intake, IV Titration 675 Amount Sodium Chloride 0.9% 1, 675 000 ml @ 75 mls/hr IV . [id number] DURGA Rx#:[id number] Oral 715 118 120 Output: Urine 100 900 Other: Voiding Method Bedpan Toilet Toilet # Voids 1 1 - Labs CBC & Chem 7: 01/22/23 21:34 01/24/23 03:52 Labs: Abnormal Lab Results - Last 24 Hours (Table) 01/23/23 01/23/23 01/23/23 Range/Units 11:50 12:15 12:36 POC Glucose (mg/dL) 53 L 61 L 42 L (70-110) mg/dL Hemoglobin A1c (<=6.0) % 01/23/23 01/23/23 01/23/23 Range/Units 12:49 13:38 16:37 POC Glucose (mg/dL) 61 L 137 H 297 H (70-110) mg/dL Hemoglobin A1c (<=6.0) % 01/23/23 01/24/23 Range/Units 19:58 03:52 POC Glucose (mg/dL) 281 H (70-110) mg/dL Hemoglobin A1c 13.4 H (<=6.0) %
[2023-01-24 11:34] LABS: Glucose,Whole Blood 299 mg/dL (70-110)
[2023-01-24 11:53] VITALS: BP 133/80; PULSE 72; TEMP 98.1
--- NOTE | 2023-01-24 12:55 | P.DS ---
Providers Date of admission: 01/22/23 23:40 Expected date of discharge: 01/24/23 Attending physician: Danielle Hill Consults: 01/22/23 23:38 Consult Physician Routine Consulting Provider: Wellington Kurtz Consult Reason/Comments: Syncope Do you want consulting provider notified?: Yes Primary care physician: Sahra Elder Hospital Course: Discharge diagnoses; Syncope Nonobstructive coronary artery disease Borderline hypotension History of hypertension History of hyperlipidemia Insulin-dependent diabetes mellitus GERD Hospital course; patient is 63-year-old lady past medical history significant for hypertension, hyperlipidemia, diabetes, and nonobstructive coronary artery disease who presented to the ER because of a syncopal episode. Patient was out with her friends when suddenly she collapsed, she lost consciousness for a brief moment, when patient regained consciousness she was not confused. There was no compla int of palpitations or shortness of breath preceding this event. Following that EMS was called and on her way to the ER, patient did complain of some chest pressure and central in location. No compression of shortness of breath. No complaint of palpitations. Denies any fever or chills. Patient was worked up in the ER. Initial lab work done in the ER showed WBC 6.1, hemoglobin 10.9, platelet count 252, sodium 1:30, potassium 4.8, BUN 24, creatinine 1.6, troponin 0.012 EKG done in the ER showed normal sinus rhythm, heart rate of 76, no ST segment elevation, no T-wave inversions in anterior leads Chest x-ray done in the ER showed borderline heart size and a chronic-appearing changes along with evidence of prior granulomatous disease CT brain negative for any acute intracranial abnormality Patient admitted to medicine service 01/24. Patient seen and examined. Patient was seen by cardiology, recommended discontinuing Isordil and decreasing dose of losartan to 25 mg daily. Orthostatics were normal. Dose of Lantus was decreased to 20 units twice a day and Humalog to 4 units with meals. Being discharged in stable condition PHYSICAL EXAMINATION: GENERAL: The patient is alert and oriented x3, not in any acute distress. Well developed, well nourished. HEENT: Pupils are round and equally reacting to light. EOMI. No scleral icterus. No conjunctival pallor. Normocephalic, atraumatic. No pharyngeal erythema. No thyromegaly. CARDIOVASCULAR: S1 and S2 present. No murmurs, rubs, or gallops. PULMONARY: Chest is clear to auscultation, no wheezing or crackles. ABDOMEN: Soft, nontender, nondistended, normoactive bowel sounds. No palpable organomegaly. MUSCULOSKELETAL: No joint swelling or deformity. EXTREMITIES: No cyanosis, clubbing, or pedal edema. NEUROLOGICAL: Gross neurological examination did not reveal any focal deficits. SKIN: No rashes. Dictation was produced using [email or web address] dictation software. please excuse any grammatical, word or spelling errors. Patient Condition at Discharge: Stable Plan - Discharge Summary Discharge Rx Participant: No New Discharge Prescriptions: New Losartan [Cozaar] 25 mg PO DAILY #30 tab Continue Venlafaxine HCl [Effexor XR] 225 mg PO DAILY Pantoprazole Sodium [Protonix] 40 mg PO BID Cariprazine HCl [Vraylar] 1.5 mg PO HS Meclizine [Antivert] 25 mg PO TID PRN PRN Reason: DIZZINESS Magnesium Oxide [Mag-Ox] 400 mg PO DAILY Levothyroxine Sodium [Synthroid] 200 mcg PO DAILY Levothyroxine Sodium [Synthroid] 50 mcg PO DAILY Cholecalciferol [Vitamin D3 (125 Mcg = 5000 Iu)] 125 mcg PO TID Cetirizine HCl [Zyrtec] 10 mg PO DAILY Acetaminophen Tab [Tylenol] 650 mg PO Q6HR PRN tab PRN Reason: Fever And/ Or Pain Aspirin EC [Ecotrin Low Dose] 81 mg PO DAILY INSULIN LISPRO (HumaLOG) [humaLOG] See Protocol SQ AC-TID Sucralfate [Carafate] 1 gm PO ACHS Dicyclomine HCl 10 mg PO BID HYDROcodone/APAP 7.5-325MG [[place] 7.5-325] 1 tab PO BID PRN PRN Reason: Pain Metoclopramide HCl [Reglan] 5 mg PO TID PRN #30 tablet PRN Reason: Nausea Ondansetron Odt [Zofran ODT] 4 mg PO Q8HR PRN #10 tab PRN Reason: Nausea Nitroglycerin Sl Tabs [Nitrostat] 0.4 mg SL Q5M PRN PRN Reason: Chest Pain Ferrous Sulfate [Iron (65 MG Elemental)] 325 mg PO DAILY Multivitamins, Thera [Multivitamin (formulary)] 1 tab PO DAILY Ipratropium-Albuterol Nebulize [Duoneb 0.5 mg-3 mg/3 ml Soln] 3 ml INHALATION RT-QID PRN PRN Reason: Shortness Of Breath Glucagon [Baqsimi] 1 spray NASAL DIRECTED PRN PRN Reason: Severe Hypoglycemia Gabapentin 300 mg PO TID calcitrioL [Calcitriol] 0.25 mcg PO SA Ticagrelor [Brilinta] 90 mg PO BID 60 Days #60 tab Butalb/APAP/Caff 50-325-40Mg [Fioricet 50-325-40] 1 tab PO BID PRN PRN Reason: Migraine Headache rOPINIRole HCL [Requip] 0.5 mg PO BID traZODone HCL [Desyrel] 50 mg PO HS Loperamide [Imodium] 2 mg PO TID PRN #21 capsule PRN Reason: Diarrhea Rosuvastatin Calcium [Crestor] 40 mg PO DAILY Metoprolol Succinate (ER) [Toprol XL] 50 mg PO DAILY 30 Days #30 tab Changed Insulin Glargine [Lantus Vial] 20 unit SQ BID #0 INSULIN LISPRO (HumaLOG) [humaLOG] 4 units SQ AC-TID #0 Discontinued Isosorbide Dinitrate [Isordil] 10 mg PO BID Losartan [Cozaar] 50 mg PO DAILY #30 tab Discharge Medication List Venlafaxine HCl [Effexor XR] 225 mg PO DAILY 10/21/16 [History] Pantoprazole Sodium [Protonix] 40 mg PO BID 04/06/20 [History] Cariprazine HCl [Vraylar] 1.5 mg PO HS 05/13/20 [History] Meclizine [Antivert] 25 mg PO TID PRN 01/16/21 [History] Nitroglycerin Sl Tabs [Nitrostat] 0.4 mg SL Q5M PRN 02/27/21 [History] Ferrous Sulfate [Iron (65 MG Elemental)] 325 mg PO DAILY 10/02/21 [History] Cetirizine HCl [Zyrtec] 10 mg PO DAILY 07/15/22 [History] Cholecalciferol [Vitamin D3 (125 Mcg = 5000 Iu)] 125 mcg PO TID 07/15/22 [History] Gabapentin 300 mg PO TID 07/15/22 [History] Glucagon [Baqsimi] 1 spray NASAL DIRECTED PRN 07/15/22 [History] Ipratropium-Albuterol Nebulize [Duoneb 0.5 mg-3 mg/3 ml Soln] 3 ml INHALATION RT-QID PRN 07/15/22 [History] Levothyroxine Sodium [Synthroid] 50 mcg PO DAILY 07/15/22 [History] Levothyroxine Sodium [Synthroid] 200 mcg PO DAILY 07/15/22 [History] Magnesium Oxide [Mag-Ox] 400 mg PO DAILY 07/15/22 [History] Multivitamins, Thera [Multivitamin (formulary)] 1 tab PO DAILY 07/15/22 [History] calcitrioL [Calcitriol] 0.25 mcg PO SA 07/15/22 [History] Ticagrelor [Brilinta] 90 mg PO BID 60 Days #60 tab 07/20/22 [Rx] Acetaminophen Tab [Tylenol] 650 mg PO Q6HR PRN tab 09/04/22 [Rx] Aspirin EC [Ecotrin Low Dose] 81 mg PO DAILY 10/03/22 [History] Butalb/APAP/Caff 50-325-40Mg [Fioricet 50-325-40] 1 tab PO BID PRN 10/03/22 [History] INSULIN LISPRO (HumaLOG) [humaLOG] See Protocol SQ AC-TID 10/03/22 [History] Sucralfate [Carafate] 1 gm PO ACHS 10/03/22 [History] rOPINIRole HCL [Requip] 0.5 mg PO BID 10/03/22 [History] traZODone HCL [Desyrel] 50 mg PO HS 10/03/22 [History] Loperamide [Imodium] 2 mg PO TID PRN #21 capsule 10/07/22 [Rx] Dicyclomine HCl 10 mg PO BID 01/05/23 [History] HYDROcodone/APAP 7.5-325MG [[place] 7.5-325] 1 tab PO BID PRN 01/05/23 [History] Rosuvastatin Calcium [Crestor] 40 mg PO DAILY 01/05/23 [History] Metoclopramide HCl [Reglan] 5 mg PO TID PRN #30 tablet 01/07/23 [Rx] Metoprolol Succinate (ER) [Toprol XL] 50 mg PO DAILY 30 Days #30 tab 01/07/23 [Rx] Ondansetron Odt [Zofran ODT] 4 mg PO Q8HR PRN #10 tab 01/07/23 [Rx] INSULIN LISPRO (HumaLOG) [humaLOG] 4 units SQ AC-TID #0 01/24/23 [Rx] Insulin Glargine [Lantus Vial] 20 unit SQ BID #0 01/24/23 [Rx] Losartan [Cozaar] 25 mg PO DAILY #30 tab 01/24/23 [Rx] Follow up Appointment(s)/Referral(s): Sahra Elder MD [Primary Care Provider] - 1-2 days Germán Sierra MD [STAFF PHYSICIAN] - 1 Week Patient Instructions/Handouts: Syncope (DC) Discharge Disposition: HOME SELF-CARE
== END 2023-01-24 13:36 | disposition home or self-care (01) ==
LOC: EC 21:16 → 3SCARD 23:40
PROVIDERS: ADMIT Hospitalist; ATTEND Hospitalist
DX: R55 Syncope and collapse (principal); I25.10 Atherosclerotic heart disease of native coronary artery without angina pectoris; I95.9 Hypotension, unspecified; I10 Essential (primary) hypertension; E78.5 Hyperlipidemia, unspecified; E11.9 Type 2 diabetes mellitus without complications; K21.9 Gastro-esophageal reflux disease without esophagitis; J44.9 Chronic obstructive pulmonary disease, unspecified; Z86.718 Personal history of other venous thrombosis and embolism; M06.9 Rheumatoid arthritis, unspecified; G47.30 Sleep apnea, unspecified; E07.9 Disorder of thyroid, unspecified; G25.81 Restless legs syndrome; G62.9 Polyneuropathy, unspecified; I25.2 Old myocardial infarction; Z16.24 Resistance to multiple antibiotics; F32.A Depression, unspecified; F17.210 Nicotine dependence, cigarettes, uncomplicated; Z90.5 Acquired absence of kidney; Z86.73 Personal history of transient ischemic attack (TIA), and cerebral infarction without residual deficits; Z85.528 Personal history of other malignant neoplasm of kidney; Z86.14 Personal history of Methicillin resistant Staphylococcus aureus infection; Z79.899 Other long term (current) drug therapy; Z79.890 Hormone replacement therapy; Z79.02 Long term (current) use of antithrombotics/antiplatelets; Z79.82 Long term (current) use of aspirin; Z79.4 Long term (current) use of insulin; Z91.030 Bee allergy status; Z91.040 Latex allergy status; Z88.5 Allergy status to narcotic agent; Z88.2 Allergy status to sulfonamides; Z88.8 Allergy status to other drugs, medicaments and biological substances; Z91.048 Other nonmedicinal substance allergy status; Z80.0 Family history of malignant neoplasm of digestive organs; Z80.8 Family history of malignant neoplasm of other organs or systems; Z83.3 Family history of diabetes mellitus; Z82.49 Family history of ischemic heart disease and other diseases of the circulatory system; Z80.3 Family history of malignant neoplasm of breast
CPT/HCPCS: 96361 ×2; 96360; 99285; 36415; 94640 ×2; 94760; 93005; 93306; 80053; 80048; 83735; 84132; 84484 ×2; 85025; 85610; 85730; 81001; 83036; 71046; 70450; G0378 ×2

== ENCOUNTER 2023-04-10 12:43 | Observation (INO) | payer OTHER ==
--- NOTE | 2023-04-10 12:52 | ED ---
Chest Pain HPI - General Chief Complaint: Chest Pain Stated Complaint: tight chest pains Time Seen by Provider: 04/10/23 12:50 Source: patient, RN notes reviewed Mode of arrival: wheelchair Limitations: no limitations - History of Present Illness Initial Comments: This is a 63 year old female who presents to the emergency department for chest pain. States that this began last night and has not improved. This is described as a pressure/heaviness in the center of her chest. Also has some shortness of breath. Does have a history of CAD including stents. States that the pain feels like prior cardiac issues. She took 4 baby ASA prior to arrival. States that nitroglycerin is not usually effective for her. She did have a loop recorder placed on 02/20 for a syncopal episode that she was admitted for in January of this year. MD Complaint: chest pain - Related Data Home Medications Medication Instructions Recorded Confirmed Venlafaxine HCl [Effexor XR] 225 mg PO DAILY 10/21/16 04/10/23 Pantoprazole Sodium [Protonix] 40 mg PO BID 04/06/20 04/10/23 Meclizine [Antivert] 25 mg PO TID PRN 01/16/21 04/10/23 Ferrous Sulfate [Iron (65 MG 325 mg PO DAILY 10/02/21 04/10/23 Elemental)] Cetirizine HCl [Zyrtec] 10 mg PO DAILY 07/15/22 04/10/23 Cholecalciferol [Vitamin D3 (125 125 mcg PO TID 07/15/22 04/10/23 Mcg = 5000 Iu)] Gabapentin 300 mg PO TID 07/15/22 04/10/23 Glucagon [Baqsimi] 1 spray NASAL DIRECTED PRN 07/15/22 04/10/23 Ipratropium-Albuterol Nebulize 3 ml INHALATION RT-QID PRN 07/15/22 04/10/23 [Duoneb 0.5 mg-3 mg/3 ml Soln] Levothyroxine Sodium [Synthroid] 50 mcg PO DAILY 07/15/22 04/10/23 Levothyroxine Sodium [Synthroid] 200 mcg PO DAILY 07/15/22 04/10/23 Magnesium Oxide [Mag-Ox] 400 mg PO DAILY 07/15/22 04/10/23 Multivitamins, Thera [Multivitamin 1 tab PO DAILY 07/15/22 04/10/23 (formulary)] Aspirin EC [Ecotrin Low Dose] 81 mg PO DAILY 10/03/22 04/10/23 Butalb/APAP/Caff 50-325-40Mg 1 tab PO BID PRN 10/03/22 04/10/23 [Fioricet 50-325-40] rOPINIRole HCL [Requip] 0.5 mg PO BID 10/03/22 04/10/23 HYDROcodone/APAP 7.5-325MG [[place]la 1 tab PO BID PRN 01/05/23 04/10/23 7.5-325] Rosuvastatin Calcium [Crestor] 40 mg PO HS 01/05/23 04/10/23 INSULIN LISPRO (For Pump) [humaLOG 0.01 units SQ-PUMP CONTINUOUS 04/10/2304/10 (For Pump)] Isosorbide Mononitrate ER [Imdur] 30 mg PO DAILY 04/10/23 04/10/23 Mirtazapine 7.5 mg PO HS 04/10/23 04/10/23 Previous Rx's Medication Instructions Recorded Acetaminophen Tab [Tylenol] 650 mg PO Q6HR PRN tab 09/04/22 Loperamide [Imodium] 2 mg PO TID PRN #21 capsule 10/07/22 Metoclopramide HCl [Reglan] 5 mg PO TID PRN #30 tablet 01/07/23 Metoprolol Succinate (ER) [Toprol 50 mg PO DAILY 30 Days #30 tab 01/07/23 XL] Ondansetron Odt [Zofran ODT] 4 mg PO Q8HR PRN #10 tab 01/07/23 Losartan [Cozaar] 25 mg PO DAILY #30 tab 01/24/23 Allergies Allergy/AdvReac Type Severity Reaction Status Date / Time grass pollen Allergy Unknown Verified 04/10/23 16:36 latex Allergy Rash/Hives Verified 04/10/23 16:36 Sulfa (Sulfonamide Allergy Rash/Hives/ Verified 04/10/23 16:36 Antibiotics) Swelling venom-honey bee Allergy Anaphylaxis Verified 04/10/23 16:36 morphine AdvReac Decreased Verified 04/10/23 16:36 Blood Pressure prochlorperazine edisylate AdvReac Vomiting Verified 04/10/23 16:36 [From Compazine] Review of Systems ROS Statement: Those systems with pertinent positive or pertinent negative responses have been documented in the HPI. ROS Other: All systems not noted in ROS Statement are negative. Past Medical History Past Medical History: Coronary Artery Disease (CAD), Cancer, COPD, CVA/TIA, Diabetes Mellitus, Deep Vein Thrombosis (DVT), Eye Disorder, GERD/Reflux, Hyperlipidemia, Hypertension, Myocardial Infarction (RI), Renal Disease, Rheumatoid Arthritis (RA), Sleep Apnea/CPAP/BIPAP, Syncope, Thyroid Disorder Additional Past Medical History / Comment(s): 09/16/16 with SBO with surgery/possible septic emboli with cavitary lesions bilateral lungs. 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 coli 2015 requiring PICC line insertion for IV antibiotics, restless leg syndrome, peripheral neuropathy. Hx bilateral glaucoma, hx syncope r/t low blood sugars. No CPAP use. pt states had high blood sugar 1 week ago and was seen an [facility]. Last Myocardial Infarction Date:: 2019 History of Any Multi-Drug Resistant Organisms: ESBL, MRSA, VRE Date of last positivie culture/infection: 05/07/16 ESBL, 05/15/16 VRE, MRSA 09/2017 - upper lip MDRO Source:: URINE E.COLI, EC GALLINARUM Past Surgical History: Appendectomy, Bowel Resection, Section, Heart Catheterization, Heart Catheterization With Stent, Hernia Repair Additional Past Surgical History / Comment(s): 09/30 exploratory laparotomy with lysis of adhesions, bowel resection d/t obstruction. repair incarcerated incisional hernia with abdominal washout, thyroidectomy(non functioning), heart cath 06/28 - 100% occluded, unable to stent, partial left nephrectomy for left kidney renal cell carcinoma, PICC line insertion (since removed), colonoscopy, bilateral cataract removal with lens implants, 2 Sections. cardiac Stent 03/2021 Past Anesthesia/Blood Transfusion Reactions: No Reported Reaction Date of Last Stent Placement:: 04/06/2021 Past Psychological History: Depression Additional Psychological History / Comment(s): . Smoking Status: Current every day smoker Past Alcohol Use History: None Reported Additional Past Alcohol Use History / Comment(s): STARTED SMOKING AT AGE 8, smoked one to one and half packs per day for 50 years. PT STATES SMOKES 3-4 packs PER DAY TRYING TO QUIT. Past Drug Use History: Marijuana Additional Drug Use History / Comment(s): Uses marijuana daily. Hx of addiction to cocaine, has not used in 20 years. - Past Family History Sister(s) Family Medical History: Cancer, Deep Vein Thrombosis (DVT) Additional Family Medical History / Comment(s): Patient has one sister that from liver cancer. Brother(s) Family Medical History: Cancer, Deep Vein Thrombosis (DVT) Additional Family Medical History / Comment(s): Patient has 1 brother with past ETOH, past drug abuse, DVTs. She has a second brother that has from throat cancer. Daughter(s) Family Medical History: Diabetes Mellitus, Myocardial Infarction (RI) Additional Family Medical History / Comment(s): Daughter at 23 yrs old from massive RI. Father Family Medical History: Myocardial Infarction (RI) Additional Family Medical History / Comment(s): from RI at age 44 Mother Family Medical History: Cancer Additional Family Medical History / Comment(s): B/L breast cancer General Exam - General Exam Comments Initial Comments: Visual Physical Exam Vital signs reviewed General: Well-appearing, nontoxic, no acute distress. Head: Normocephalic, atraumatic Eyes: PERRLA, EOMI ENT: Airway patent Chest: Nonlabored breathing Skin: No visual rash, normal skin tone Neuro: Alert and oriented 3 Musculoskeletal: No gross abnormalities I performed a quick note portion of this chart signed Aarti Hill PA-C Limitations: no limitations General appearance: alert, in no apparent distress Head exam: Present: atraumatic, normocephalic, normal inspection Respiratory exam: Present: normal lung sounds bilaterally. Absent: respiratory distress, wheezes, rales, rhonchi, stridor Cardiovascular Exam: Present: regular rate, normal rhythm, normal heart sounds. Absent: systolic murmur, diastolic murmur, rubs, gallop, clicks Neurological exam: Present: alert, oriented X3, CN II-XII intact Psychiatric exam: Present: normal affect, normal mood Skin exam: Present: warm, dry, intact, normal color. Absent: rash Course Vital Signs 04/10/23 04/10/23 04/10/23 12:50 14:40 16:17 Temperature 97.7 F 97.9 F Pulse Rate 76 84 82 Respiratory 16 18 18 Rate Blood Pressure 117/72 138/83 119/79 O2 Sat by Pulse 97 100 100 Oximetry 04/10/23 04/10/23 04/10/23 18:38 20:00 21:00 Temperature Pulse Rate 85 Respiratory 18 14 18 Rate Blood Pressure 122/68 129/80 141/75 O2 Sat by Pulse 99 100 100 Oximetry 04/10/23 04/10/23 04/11/23 22:00 23:04 02:30 Temperature 98 F Pulse Rate 105 H Respiratory 16 18 Rate Blood Pressure 142/81 118/75 O2 Sat by Pulse 98 97 Oximetry 04/11/23 04:00 Temperature Pulse Rate Respiratory Rate Blood Pressure 121/72 O2 Sat by Pulse Oximetry Chest Pain MDM - MDM This is a 63-year-old female who presents to the emergency department for chest pain. Was pt. sent in by a medical professional or institution? @ -No Did you speak to anyone other than the patient for history? @ -No Did you review nursing and triage notes? @ -Yes, and I agree, it is accurate with regards to the patient's symptoms. Were old charts reviewed? @ -Cardiology note from 01/24 discussing that if she has problems with angina again, they could consider switching her to Ranexa. Echocardiogram from 01/23 demonstrating mild improvement in LVEF and she continues to have moderate concentric LVH. Differential Diagnosis? @ -Differential Chest Pain: Stable Angina, Unstable Angina, STEMI, NSTEMI Aortic Dissection, Pneumothorax, Musculoskeletal, Esophageal Spasm GERD, Cholecystitis, Pancreatitis, Zoster, this is not meant to be an all-inclusive list. EKG interpreted by me (3pts min.)? @ -EKG interpreted by me demonstrating the following: Sinus rhythm. Ventricular rate 96 bpm, CT interval 129 ms, QRS duration 85 ms, QTC 389 ms. X-rays interpreted by me (1pt min.)? @ -Chest x-ray obtained, my interpretation identifies no localized consolidations or infiltrates. CT interpreted by me (1pt min.)? @ -Not obtained U/S interpreted by me (1pt. min.)? @ -Not obtained What testing was considered but not performed? (CT, X-rays, U/S, labs)? Why? @ -None What meds were considered but not given? Why? @ -None Did you discuss the management of the patient with other professionals? @ -Yes, Dr. Olivares, who accepts the patient for admission. Did you reconcile home meds? @ -Yes Was smoking cessation discussed for >3mins.? @ -No Was critical care preformed (if so, how long)? @ -No Were there social determinants of health that impacted care today? How? (Homelessness, low income, unemployed, alcoholism, drug addiction, transportation, low edu. Level, literacy, decrease access to med. care, [facility], rehab)? @ -No Was there de-escalation of care discussed even if they declined? (Discuss DNR or withdrawal of care, Hospice)? @ -No What co-morbidities impacted this encounter? (DM, HTN, Smoking, COPD, CAD, Cancer, CVA, Hep., AIDS, mental health diagnosis, sleep apnea, morbid obesity)? @ -CAD, HTN, HLD, DM Was patient admitted / discharged? @ -Admitted. Lab work obtained revealing hyperkalemia with a potassium of 5.9 and was otherwise unremarkable, including a negative troponin. EKG reveals no acute ST changes. Chest x-ray reveals no acute process. I did review the previous cardiology note, and on 01/24, it was mentioned about the possibility of switching her to Ranexa if she does develop problems with angina again. Patient was given a dose of Fentanyl and Nitropaste was applied. She was also given a dose of Ranexa due to prior cardiology recommendations and because nitro is not often very effective according to the patient. She did have improvement in symptoms following medication administration. Patient admitted to medicine for further management of chest pain with cardiology consult. Serial troponins were ordered as well. Undiagnosed new problem with uncertain prognosis? @ -None Drug Therapy requiring intensive monitoring for toxicity (Heparin, Nitro, Insulin, Cardizem)? @ -None Were any procedures done? @ -None Diagnosis/symptom? @ -Chest pain, hyperkalemia Acute, or Chronic, or Acute on Chronic? @ -Acute Uncomplicated (without systemic symptoms) or Complicated (systemic symptoms)? @ -Complicated Side effects of treatment? @ -None Exacerbation, Progression, or Severe Exacerbation] @ -Not applicable Poses a threat to life or bodily function? @ -Yes This case was discussed in detail with the attending ED physician, Dr. Dawkins. Presentation, findings, and treatment plan discussed in detail as well. Disposition Clinical Impression: Chest pain, Hyperkalemia Disposition: ADMITTED IP TO THIS HOSP
--- NOTE | 2023-04-10 13:49 | XR ---
EXAMINATION TYPE: XR chest 2V DATE OF EXAM: 04/10/2023 1:42 PM COMPARISON: Chest radiographs from 01/22/2023 TECHNIQUE: XR chest 2V Frontal and lateral views of the chest. CLINICAL INDICATION:Female, 63 years old with history of Chest Pain; FINDINGS: Lungs/Pleura: There is no evidence of pleural effusion, focal consolidation, or pneumothorax. Left l ower lobe calcified granuloma/hamartoma redemonstrated. Chronic senescent parenchymal change. Pulmonary vascularity: Unremarkable. Heart/mediastinum: Cardiomediastinal silhouette is unremarkable. Musculoskeletal: No acute osseous pathology. Other findings: Loop recorder within the left anterior chest. IMPRESSION: Chronic changes without acute pulmonary process. No significant change from prior.
[2023-04-10 13:58] LABS: ALT 13 U/L (4-34); AST 21 U/L (14-36); African American GFR (CKD) 71 (>60 ml/min/1.73 sqM); Albumin 4.4 g/dL (3.5-5.0); Alkaline Phosphatase 148 U/L (38-126); Anion Gap 10 mmol/L; Blood Urea Nitrogen 26 mg/dL (7-17); Calcium 9.9 mg/dL (8.4-10.2); Carbon Dioxide 24 mmol/L (22-30); Chloride 107 mmol/L (98-107); Glucose 125 mg/dL (74-99); Non-African American GFR(CKD) 62 (>60 ml/min/1.73 sqM); Potassium 5.9 mmol/L (3.5-5.1); Sodium 141 mmol/L (137-145); Total Bilirubin 0.4 mg/dL (0.2-1.3); Total Protein 7.8 g/dL (6.3-8.2)
[2023-04-10 14:04] LABS: Basophils % (A) 0 %; Eosinophils # (A) 0.3 k/uL (0-0.7); Eosinophils % (A) 3 %; HCT 36.1 % (34.0-46.0); HGB 11.8 gm/dL (11.4-16.0); Lymphocytes # (A) 1.4 k/uL (1.0-4.8); Lymphocytes % (A) 19 %; MCH 29.4 pg (25.0-35.0); MCHC 32.6 g/dL (31.0-37.0); MCV 90.3 fL (80.0-100.0); Mean Platelet Volume 7.7; Monocytes # (A) 0.3 k/uL (0-1.0); Monocytes % (A) 4 %; Neutrophils # (A) 5.5 k/uL (1.3-7.7); Neutrophils % (A) 73 %; Platelet Count 266 k/uL (150-450); RDW 14.4 % (11.5-15.5); WBC 7.5 k/uL (3.8-10.6)
[2023-04-10 14:15] LABS: INR 0.9 (<1.2); Partial Thromboplastin Time 23.3 sec (22.0-30.0); Prothrombin Time 9.9 sec (10.0-12.5)
[2023-04-10] MEDS ORDERED: ACETAMINOPHEN TAB 325 MG TAB PO PRN ×2 (19:00→19:04)
[2023-04-10] MEDS ORDERED: HYDROcodone/APAP 5-325MG 1 EACH TAB PO PRN (19:00)
[2023-04-10] MEDS ORDERED: NALOXONE 0.4 MG/ML 1 ML VIAL IV PRN (19:00)
[2023-04-10] MEDS ORDERED: ONDANSETRON 4 MG/2 ML VIAL IVP PRN (19:00)
[2023-04-10] MEDS ORDERED: fentaNYL (PF) 50 MCG/ML 2 ML AMP IVP ONE (19:03)
[2023-04-10] MEDS ORDERED: NITROGLYCERIN OINT 1 INCH/GM PACKET TOPICAL STA (19:03)
[2023-04-10] MEDS ORDERED: ONDANSETRON ODT 4 MG TAB PO PRN (19:04)
[2023-04-10] MEDS ORDERED: HYDROcodone/APAP 7.5-325MG 1 EACH TAB PO PRN (19:04)
[2023-04-10] MEDS ORDERED: MECLIZINE 25 MG TAB PO PRN (19:04)
[2023-04-10] MEDS ORDERED: GLUCAGON 1 MG/ML VIAL SQ PRN (19:04)
[2023-04-10] MEDS ORDERED: METOCLOPRAMIDE 5 MG TAB PO PRN (19:04)
[2023-04-10] MEDS ORDERED: BUTALB/APAP/CAFF 50-325-40MG TAB PO PRN (19:04)
[2023-04-10] MEDS ORDERED: LOPERAMIDE 2 MG CAP PO PRN (19:04)
[2023-04-10] MEDS: PANTOPRAZOLE 40 MG TABLET PO SCH (20:30)
[2023-04-10] MEDS: ATORVASTATIN 80 MG TAB PO SCH (20:30)
[2023-04-10] MEDS: RANOLAZINE 500 MG TAB.ER.12H PO SCH (20:30)
[2023-04-10] MEDS: GABAPENTIN 300 MG CAP PO SCH (20:30)
[2023-04-10] MEDS: MIRTAZAPINE 15 MG TAB PO SCH (20:31)
[2023-04-10] MEDS: CHOLECALCIFEROL 125 MCG (5000 IU) TABLET PO SCH (20:34)
[2023-04-10] MEDS ORDERED: RANOLAZINE 500 MG TAB.ER.12H PO SCH (21:00)
[2023-04-11] MEDS ORDERED: NITROGLYCERIN OINT 1 INCH/GM PACKET TOPICAL STA (02:18)
[2023-04-11] MEDS: INSULIN LISPRO (For Pump) 100 UNIT/ML VIAL SQ-PUMP SCH ×2 (05:08→18:20)
[2023-04-11] MEDS: LEVOTHYROXINE 100 MCG TAB PO SCH (05:45)
[2023-04-11] MEDS: LEVOTHYROXINE 50 MCG TAB PO SCH (05:46)
[2023-04-11] MEDS: IPRATROPIUM-ALBUTEROL 3 ML NEB INHALATION PRN ×2 (08:22→16:05)
[2023-04-11] MEDS ORDERED: LOSARTAN 25 MG TAB PO SCH (09:00)
[2023-04-11] MEDS ORDERED: PANTOPRAZOLE 40 MG/10 ML VIAL IV SCH (09:00)
[2023-04-11] MEDS ORDERED: METOPROLOL SUCCINATE (ER) 50 MG TAB.ER.24H PO SCH (09:00)
[2023-04-11] MEDS: FERROUS SULFATE 325 MG TAB PO SCH (09:12)
[2023-04-11] MEDS: MULTIVITAMINS, THERA 1 EACH TAB PO SCH (09:12)
[2023-04-11] MEDS: ISOSORBIDE MONONITRATE ER 30 MG TAB.ER.24H PO SCH (09:12)
[2023-04-11] MEDS: RANOLAZINE 500 MG TAB.ER.12H PO SCH ×2 (09:12→21:32)
[2023-04-11] MEDS: PANTOPRAZOLE 40 MG TABLET PO SCH ×2 (09:12→16:32)
[2023-04-11] MEDS: VENLAFAXINE HCL ER 75 MG CAP PO SCH (09:12)
[2023-04-11] MEDS: LORATADINE 10 MG TAB PO SCH (09:12)
[2023-04-11] MEDS: MAGNESIUM OXIDE 400 MG TAB PO SCH (09:12)
[2023-04-11] MEDS: GABAPENTIN 300 MG CAP PO SCH ×3 (09:13→21:32)
[2023-04-11] MEDS: ASPIRIN 81 MG PO SCH (09:13)
[2023-04-11] MEDS: CHOLECALCIFEROL 125 MCG (5000 IU) TABLET PO SCH ×3 (09:13→21:32)
[2023-04-11] MEDS ORDERED: DEXTROSE 50% SYRINGE 50 ML IVP ONE (09:42)
[2023-04-11] MEDS ORDERED: SODIUM ZIRCONIUM CYCLOSILICATE 10 GM PACKET PO ONE (09:42)
[2023-04-11] MEDS: INSULIN REGULAR 100 UNIT/ML VIAL (IV) IV ONE ×2 (10:46→10:53)
--- NOTE | 2023-04-11 12:35 | P.CRDCN ---
History of Present Illness History of present illness: HISTORY OF PRESENT ILLNESS: This is a 63-year-old female with a past medical history significant for coronary artery disease, syncope with recent loop recorder insertion, hyperlipidemia, hypertension, and diabetes. Patient follows in the office with Dr. Sierra. We have been asked to see the patient in consultation for chest pain. Patient examined at the bedside in the emergency room. Patient appears somewhat confused at the time of examination. The patient states she was walking up the stairs yesterday when she had a syncopal episode. She states that she woke up and then continue walking into her apartment. She states no one was around at this time. She also reports having chest pain last night in the middle of her chest. She states that she has been having diarrhea as well. She reports having a cough and feeling diaphoretic at home. At the time of examination, the patient denies any chest pain or pressure. She denies any shortness of breath. * EKG reveals sinus mechanism with nonspecific ST-T wave changes. Repeat EKG reveals ST depression in lead II and T-wave inversions in lateral leads * Chest xray chronic changes without acute pulmonary process * Most recent echocardiogram obtained in January 2023 revealing ejection fraction 50-55%, no wall motion abnormalities, and no significant valvular abnormalities * Cardiac catheterization history: December 2022 revealing stable coronary artery disease. 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 Atretic small caliber diffusely diseased LAD similar to her angiograms. Normal left sided filling pressures. REVIEW OF SYSTEMS: At the time of my exam: CONSTITUTIONAL: Denies fever or chills. HEENT: Denies blurred vision, vision changes, or eye pain. Denies hemoptysis CARDIOVASCULAR: Denies chest pain. Denies orthopnea. Denies PND. Denies palpitations RESPIRATORY: Denies shortness of breath. GASTROINTESTINAL: Denies abdominal pain. Denies nausea or vomiting. HEMATOLOGIC: Denies bleeding disorders. GENITOURINARY: Denies any blood in urine. SKIN: Denies pruitis. Denies rash. PHYSICAL EXAM: VITAL SIGNS: Reviewed. GENERAL: Well-developed in no acute distress. HEENT: Head is normocephalic. Pupils are equal, round. Sclerae anicteric. Mucous membranes of the mouth are moist. Neck supple. No JVD or thyromegaly LUNGS: Respirations even and unlabored. Lungs essentially clear to auscultation bilaterally. HEART: Regular rate and rhythm. S1 and S2 heard. ABDOMEN: Soft. Nondistended. Nontender. EXTREMITIES: Normal range of motion. No clubbing or cyanosis. Peripheral pulses intact. No lower extremity edema NEUROLOGIC: Awake and alert. Oriented x 3. ASSESSMENT: Chest pain, troponins negative 3 Questionable syncope History of recent syncope with loop recorder implantation Diarrhea Coronary artery disease Hypertension Hyperlipidemia Diabetes PLAN: An acute coronary event has been ruled out Resume home cardiac medications Decrease metoprolol succinate to 25 mg daily as patient has had soft blood pressures Interrogate loop recorder Continue to monitor blood pressure. Continue telemetry monitoring Further recommendations pending patient's course Nurse practitioner note has been reviewed by physician. Signing provider agrees with the documented findings, assessment, and plan of care. Past Medical History Past Medical History: Coronary Artery Disease (CAD), Cancer, COPD, CVA/TIA, Diabetes Mellitus, Deep Vein Thrombosis (DVT), Eye Disorder, GERD/Reflux, Hyperlipidemia, Hypertension, Myocardial Infarction (HI), Renal Disease, Rheumatoid Arthritis (RA), Sleep Apnea/CPAP/BIPAP, Syncope, Thyroid Disorder Additional Past Medical History / Comment(s): 09/16/16 with SBO with surgery/p ossible septic emboli with cavitary lesions bilateral lungs. 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 coli 2015 requiring PICC line insertion for IV antibiotics, restless leg syndrome, peripheral neur opathy. Hx bilateral glaucoma, hx syncope r/t low blood sugars. No CPAP use. pt states had high blood sugar 1 week ago and was seen an [facility]. Last Myocardial Infarction Date:: 2019 History of Any Multi-Drug Resistant Organisms: ESBL, MRSA, VRE Date of last positivie culture/infection: 05/07/16 ESBL, 05/15/16 VRE, MRSA 09/2017 - upper lip MDRO Source:: URINE E.COLI, EC GALLINARUM Past Surgical History: Appendectomy, Bowel Resection, Section, Heart Catheterization, Heart Catheterization With Stent, Hernia Repair Additional Past Surgical History / Comment(s): 09/30 exploratory laparotomy with lysis of adhesions, bowel resection d/t obstruction. repair incarcerated incisional hernia with abdominal washout, thyroidectomy(non functioning), heart cath 06/28 - 100% occluded, unable to stent, partial left nephrectomy for left kidney renal cell carcinoma, PICC line insertion (since removed), colonoscopy, bilateral cataract removal with lens implants, 2 Sections. cardiac Stent 03/2021 Past Anesthesia/Blood Transfusion Reactions: No Reported Reaction Date of Last Stent Placement:: 04/06/2021 Past Psychological History: Depression Additional Psychological History / Comment(s): . Smoking Status: Current every day smoker Past Alcohol Use History: None Reported Additional Past Alcohol Use History / Comment(s): STARTED SMOKING AT AGE 8, smoked one to one and half packs per day for 50 years. PT STATES SMOKES 3-4 packs PER DAY TRYING TO QUIT. Past Drug Use History: Marijuana Additional Drug Use History / Comment(s): Uses marijuana daily. Hx of addiction to cocaine, has not used in 20 years. - Past Family History Sister(s) Family Medical History: Cancer, Deep Vein Thrombosis (DVT) Additional Family Medical History / Comment(s): Patient has one sister that from liver cancer. Brother(s) Family Medical History: Cancer, Deep Vein Thrombosis (DVT) Additional Family Medical History / Comment(s): Patient has 1 brother with past ETOH, past drug abuse, DVTs. She has a second brother that has from throat cancer. Daughter(s) Family Medical History: Diabetes Mellitus, Myocardial Infarction (HI) Additional Family Medical History / Comment(s): Daughter at 23 yrs old from massive HI. Father Family Medical History: Myocardial Infarction (HI) Additional Family Medical History / Comment(s): from HI at age 44 Mother Family Medical History: Cancer Additional Family Medical History / Comment(s): B/L breast cancer Medications and Allergies Home Medications Medication Instructions Recorded Confirmed Type Venlafaxine HCl [Effexor XR] 225 mg PO DAILY 10/21/16 04/10/23 History Pantoprazole Sodium [Protonix] 40 mg PO BID 04/06/20 04/10/23 History Meclizine [Antivert] 25 mg PO TID PRN 01/16/21 04/10/23 History Ferrous Sulfate [Iron (65 MG 325 mg PO DAILY 10/02/21 04/10/23 History Elemental)] Cetirizine HCl [Zyrtec] 10 mg PO DAILY 07/15/22 04/10/23 History Cholecalciferol [Vitamin D3 (125 125 mcg PO TID 07/15/22 04/10/23 History Mcg = 5000 Iu)] Gabapentin 300 mg PO TID 07/15/22 04/10/23 History Glucagon [Baqsimi] 1 spray NASAL DIRECTED PRN 07/15/22 04/10/23 History Ipratropium-Albuterol Nebulize 3 ml INHALATION RT-QID PRN 07/15/22 04/10/23 History [Duoneb 0.5 mg-3 mg/3 ml Soln] Levothyroxine Sodium [Synthroid] 50 mcg PO DAILY 07/15/22 04/10/23 History Levothyroxine Sodium [Synthroid] 200 mcg PO DAILY 07/15/22 04/10/23 History Magnesium Oxide [Mag-Ox] 400 mg PO DAILY 07/15/22 04/10/23 History Multivitamins, Thera [Multivitamin 1 tab PO DAILY 07/15/22 04/10/23 History (formulary)] Acetaminophen Tab [Tylenol] 650 mg PO Q6HR PRN tab 09/04/22 04/10/23 Rx Aspirin EC [Ecotrin Low Dose] 81 mg PO DAILY 10/03/22 04/10/23 History Butalb/APAP/Caff 50-325-40Mg 1 tab PO BID PRN 10/03/22 04/10/23 History [Fioricet 50-325-40] rOPINIRole HCL [Requip] 0.5 mg PO BID 10/03/22 04/10/23 History Loperamide [Imodium] 2 mg PO TID PRN #21 capsule 10/07/22 04/10/23 Rx HYDROcodone/APAP 7.5-325MG [Shevlin 1 tab PO BID PRN 01/05/23 04/10/23 History 7.5-325] Rosuvastatin Calcium [Crestor] 40 mg PO HS 01/05/23 04/10/23 History Metoclopramide HCl [Reglan] 5 mg PO TID PRN #30 tablet 01/07/23 04/10/23 Rx Metoprolol Succinate (ER) [Toprol 50 mg PO DAILY 30 Days #30 tab 01/07/23 04/10/23 Rx XL] Ondansetron Odt [Zofran ODT] 4 mg PO Q8HR PRN #10 tab 01/07/23 04/10/23 Rx Losartan [Cozaar] 25 mg PO DAILY #30 tab 01/24/23 04/10/23 Rx INSULIN LISPRO (For Pump) [humaLOG 0.01 units SQ-PUMP CONTINUOUS 04/10/23 04/10/23 History (For Pump)] Isosorbide Mononitrate ER [Imdur] 30 mg PO DAILY 04/10/23 04/10/23 History Mirtazapine 7.5 mg PO HS 04/10/23 04/10/23 History Allergies Allergy/AdvReac Type Severity Reaction Status Date / Time grass pollen Allergy Unknown Verified 04/10/23 16:36 latex Allergy Rash/Hives Verified 04/10/23 16:36 Sulfa (Sulfonamide Allergy Rash/Hives/ Verified 04/10/23 16:36 Antibiotics) Swelling venom-honey bee Allergy Anaphylaxis Verified 04/10/23 16:36 morphine AdvReac Decreased Verified 04/10/23 16:36 Blood Pressure prochlorperazine edisylate AdvReac Vomiting Verified 04/10/23 16:36 [From Compazine] Physical Exam Vitals: Vital Signs Temp Pulse Resp BP Pulse Ox 04/11/23 09:15 110 H 18 97/58 97 04/11/23 08:35 108 H 04/11/23 08:25 100 04/11/23 08:22 106 H 16 04/11/23 04:00 121/72 04/11/23 02:30 105 H 18 118/75 97 04/10/23 23:04 98 F 04/10/23 22:00 16 142/81 98 04/10/23 21:00 18 141/75 100 04/10/23 20:00 14 129/80 100 04/10/23 18:38 85 18 122/68 99 04/10/23 16:17 97.9 F 82 18 119/79 100 04/10/23 14:40 84 18 138/83 100 04/10/23 12:50 97.7 F 76 16 117/72 97 Results 04/10/23 12:55 04/10/23 12:55 Cardiac Enzymes 04/10/23 04/10/23 04/10/23 Range/Units 12:55 12:55 20:26 AST 21 (14-36) U/L Troponin I <0.012 <0.012 (0.000-0.034) ng/mL 04/11/23 Range/Units 00:53 AST (14-36) U/L Troponin I 0.013 (0.000-0.034) ng/mL Coagulation 04/10/23 Range/Units 12:55 PT 9.9 L (10.0-12.5) sec APTT 23.3 (22.0-30.0) sec CBC 04/10/23 Range/Units 12:55 WBC 7.5 (3.8-10.6) k/uL RBC 4.00 (3.80-5.40) m/uL Hgb 11.8 (11.4-16.0) gm/dL Hct 36.1 (34.0-46.0) % Plt Count 266 (150-450) k/uL Comprehensive Metabolic Panel 04/10/23 Range/Units 12:55 Sodium 141 (137-145) mmol/L Potassium 5.9 H (3.5-5.1) mmol/L Chloride 107 (98-107) mmol/L Carbon Dioxide 24 (22-30) mmol/L BUN 26 H (7-17) mg/dL Creatinine 0.98 (0.52-1.04) mg/dL Glucose 125 H (74-99) mg/dL Calcium 9.9 (8.4-10.2) mg/dL AST 21 (14-36) U/L ALT 13 (4-34) U/L Alkaline Phosphatase 148 H (38-126) U/L Total Protein 7.8 (6.3-8.2) g/dL Albumin 4.4 (3.5-5.0) g/dL Current Medications Generic Name Dose Route Start Last Admin Trade Name Freq PRN Reason Stop Dose Admin Acetaminophen 650 mg 04/10/23 19:00 Acetaminophen Tab 325 Mg Tab PO Q6HR PRN Mild Pain or Fever > 100.5 Acetaminophen 650 mg 04/10/23 19:04 Acetaminophen Tab 325 Mg Tab PO Q6HR PRN Fever and/ or Pain Acetaminophen/Butalbital/Caffeine 1 each 04/10/23 19:04 04/10/23 20:36 Butalb/Apap/Caff 50-325-40mg Tab PO 1 each BID PRN Administration Migraine Headache Hydrocodone Bitart/Acetaminophen 1 each 04/10/23 19:00 Hydrocodone/Apap 5-325mg 1 Each Tab PO Q4HR PRN Moderate Pain (Scale 4 to 6) Hydrocodone Bitart/Acetaminophen 1 each 04/10/23 19:04 Hydrocodone/Apap 7.5-325mg 1 Each Tab PO BID PRN Pain Albuterol/Ipratropium 3 ml 04/10/23 19:04 04/11/23 08:22 Ipratropium-Albuterol 3 Ml Neb INHALATION 3 ml RT-QID PRN Administration Shortness Of Breath Aspirin 81 mg 04/11/23 09:00 04/11/23 09:13 Aspirin 81 Mg PO 81 mg DAILY DURGA Administration Atorvastatin Calcium 80 mg 04/10/23 21:00 04/10/23 20:30 Atorvastatin 80 Mg Tab PO 80 mg HS DURGA Administration Cholecalciferol 125 mcg 04/10/23 22:00 04/11/23 09:13 Cholecalciferol 125 Mcg (5000 Iu) Tablet PO 125 mcg TID DURGA Administration Ferrous Sulfate 325 mg 04/11/23 09:00 04/11/23 09:12 Ferrous Sulfate 325 Mg Tab PO 325 mg DAILY DURGA Administration Gabapentin 300 mg 04/10/23 22:00 04/11/23 09:13 Gabapentin 300 Mg Cap PO 300 mg TID DURGA Administration Glucagon 1 mg 04/10/23 19:04 Glucagon 1 Mg/Ml Vial SQ ONCE PRN Severe Hypoglycemia Insulin Human Lispro 0.01 unit 04/10/23 19:15 04/11/23 05:08 Insulin Lispro (For Pump) 100 Unit/Ml Vial SQ-PUMP 0.01 unit CONTINUOUS DURGA Administration Isosorbide Mononitrate 30 mg 04/11/23 09:00 04/11/23 09:12 Isosorbide Mononitrate Er 30 Mg Tab.Er.24h PO 30 mg DAILY DURGA Administration Levothyroxine Sodium 50 mcg 04/11/23 06:30 04/11/23 05:46 Levothyroxine 50 Mcg Tab PO 50 mcg DAILY@0630 DURGA Administration Levothyroxine Sodium 200 mcg 04/11/23 06:30 04/11/23 05:45 Levothyroxine 100 Mcg Tab PO 200 mcg DAILY@0630 DURGA Administration Loperamide HCl 2 mg 04/10/23 19:04 Loperamide 2 Mg Cap PO TID PRN Diarrhea Loratadine 10 mg 04/11/23 09:00 04/11/23 09:12 Loratadine 10 Mg Tab PO 10 mg DAILY DURGA Administration Magnesium Oxide 400 mg 04/11/23 09:00 04/11/23 09:12 Magnesium Oxide 400 Mg Tab PO 400 mg DAILY DURGA Administration Meclizine HCl 25 mg 04/10/23 19:04 Meclizine 25 Mg Tab PO TID PRN DIZZINESS Metoclopramide HCl 5 mg 04/10/23 19:04 Metoclopramide 5 Mg Tab PO TID PRN Nausea Metoprolol Succinate 25 mg 04/12/23 09:00 Metoprolol Succinate (Er) 25 Mg Tab.Er.24h PO DAILY DURGA Mirtazapine 7.5 mg 04/10/23 21:00 04/10/23 20:31 Mirtazapine 15 Mg Tab PO 7.5 mg HS DURGA Administration Multivitamins 1 each 04/11/23 09:00 04/11/23 09:12 Multivitamins, Thera 1 Each Tab PO 1 each DAILY DURGA Administration Naloxone HCl 0.2 mg 04/10/23 19:00 Naloxone 0.4 Mg/Ml 1 Ml Vial IV Q2M PRN Opioid Reversal Ondansetron HCl 4 mg 04/10/23 19:00 04/11/23 04:56 Ondansetron 4 Mg/2 Ml Vial IVP 4 mg Q8HR PRN Administration Nausea And Vomiting Ondansetron HCl 4 mg 04/10/23 19:04 Ondansetron Odt 4 Mg Tab PO Q8HR PRN Nausea Pantoprazole Sodium 40 mg 04/10/23 21:00 04/11/23 09:12 Pantoprazole 40 Mg Tablet PO 40 mg AC-BID DURGA Administration Ranolazine 500 mg 04/10/23 20:00 04/11/23 09:12 Ranolazine 500 Mg Tab.Er.12h PO 500 mg Q12HR DURGA Administration Ropinirole HCl 0.5 mg 04/10/23 21:00 04/11/23 09:12 Ropinirole Hcl 0.25 Mg Tab PO 0.5 mg BID DURGA Administration Venlafaxine HCl 225 mg 04/11/23 09:00 04/11/23 09:12 Venlafaxine Hcl Er 75 Mg Cap PO 225 mg DAILY DURGA Administration 04/10/23 12:55 04/10/23 12:55
--- NOTE | 2023-04-11 14:22 | P.HPIM ---
History of Present Illness H&P Date: 04/11/23 History of present illness; patient is 63-year-old lady with past medical histor y significant for hypertension, coronary artery disease status post stent placements, hyperlipidemia, hypothyroidism, present to the ER because of chest pain that started last night. Patient stated that she was sitting all right when suddenly she started noticing pressure in the center of her chest. Chest pain was intermittent, nonradiating, no aggravating or relieving factors associated with chest pain, did complain of shortness of breath that time. Patient stated that this chest pain was similar to her previous episodes of chest pain that required stent placement. Patient took aspirin and decided to come to the ER. Initial lab work done in the ER showed WBC 7.5, hemoglobin 11.8, platelet count 266, sodium 141, potassium 5.9 BUN 26, creatinine 0.98, glucose 125, troponin 0.012 EKG done in the ER showed heart rate 96, QRS 85, no ST segment elevation seen, no T-wave inversion seen. Chest x-ray done in the ER showed chronic changes without acute pulmonary process Patient admitted to medicine service REVIEW OF SYSTEMS: CONSTITUTIONAL: No fever, no malaise, no fatigue. HEENT: No recent visual problems or hearing problems. Denied any sore throat. CARDIOVASCULAR: As mentioned above PULMONARY: As mentioned above GASTROINTESTINAL: No diarrhea, no nausea, no vomiting, no abdominal pain. NEUROLOGICAL: No headaches, no weakness, no numbness. HEMATOLOGICAL: Denies any bleeding or petechiae. GENITOURINARY: Denies any burning micturition, frequency, or urgency. MUSCULOSKELETAL/RHEUMATOLOGICAL: Denies any joint pain, swelling, or any muscle pain. ENDOCRINE: Denies any polyuria or polydipsia. The rest of the 14-point review of systems is negative. PHYSICAL EXAMINATION: GENERAL: The patient is alert and oriented x3, not in any acute distress. Well developed, well nourished. HEENT: Pupils are round and equally reacting to light. EOMI. No scleral icterus. No conjunctival pallor. Normocephalic, atraumatic. No pharyngeal erythema. No thyromegaly. CARDIOVASCULAR: S1 and S2 present. No murmurs, rubs, or gallops. PULMONARY: Chest is clear to auscultation, no wheezing or crackles. ABDOMEN: Soft, nontender, nondistended, normoactive bowel sounds. No palpable organomegaly. MUSCULOSKELETAL: No joint swelling or deformity. EXTREMITIES: No cyanosis, clubbing, or pedal edema. NEUROLOGICAL: Gross neurological examination did not reveal any focal deficits. SKIN: No rashes. Assessment and plan Acute coronary syndrome Hyperkalemia Hypertension Hypothyroidism Insulin-dependent diabetes mellitus Restless leg syndrome syndrome Monitor vital signs Monitor CBC Monitor CMP Continue telemetry monitoring Trend troponin. Ordered d-dimer For hyperkalemia, discontinue losartan. Hyperkalemia protocol initiated Continue Effexor for depression Continue Requip for restless leg syndrome Continue Synthroid for hypothyroidism Monitor blood sugar levels, patient currently using her on insulin pump Cardiology consulted Labs and medication were reviewed.. Continue same treatment. Continue with symptomatic treatment. Resume home medication. Monitor labs and vitals. DVT and GI prophylaxis. Further recommendations as per clinical course of the patient Dictation was produced using [employer] dictation software. please excuse any grammatical, word or spelling errors. Past Medical History Past Medical History: Coronary Artery Disease (CAD), Cancer, COPD, CVA/TIA, Diabetes Mellitus, Deep Vein Thrombosis (DVT), Eye Disorder, GERD/Reflux, Hyperlipidemia, Hypertension, Myocardial Infarction ([place]), Renal Disease, Rheumatoid Arthritis (RA), Sleep Apnea/CPAP/BIPAP, Syncope, Thyroid Disorder Additional Past Medical History / Comment(s): 09/16/16 with SBO with surgery/possible septic emboli with cavitary lesions bilateral lungs. 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 coli Nov2015 requiring PICC line insertion for IV antibiotics, restless leg syndrome, peripheral neuropathy. Hx bilateral glaucoma, hx syncope r/t low blood sugars. No CPAP use. pt states had high blood sugar 1 week ago and was seen an [facility]. Last Myocardial Infarction Date:: 2019 History of Any Multi-Drug Resistant Organisms: ESBL, MRSA, VRE Date of last positivie culture/infection: 05/07/16 ESBL, 05/15/16 VRE, MRSA 09/2017 - upper lip MDRO Source:: URINE E.COLI, EC GALLINARUM Past Surgical History: Appendectomy, Bowel Resection, Section, Heart Catheterization, Heart Catheterization With Stent, Hernia Repair Additional Past Surgical History / Comment(s): 09/30 exploratory laparotomy with lysis of adhesions, bowel resection d/t obstruction. repair incarcerated incisional hernia with abdominal washout, thyroidectomy(non functioning), heart cath 06/28 - 100% occluded, unable to stent, partial left nephrectomy for left kidney renal cell carcinoma, PICC line insertion (since removed), colonoscopy, bilateral cataract removal with lens implants, 2 Sections. cardiac Stent 03/2021 Past Anesthesia/Blood Transfusion Reactions: No Reported Reaction Date of Last Stent Placement:: 04/06/2021 Past Psychological History: Depression Additional Psychological History / Comment(s): . Smoking Status: Current every day smoker Past Alcohol Use History: None Reported Additional Past Alcohol Use History / Comment(s): STARTED SMOKING AT AGE 8, smoked one to one and half packs per day for 50 years. PT STATES SMOKES 3-4 packs PER DAY TRYING TO QUIT. Past Drug Use History: Marijuana Additional Drug Use History / Comment(s): Uses marijuana daily. Hx of addiction to cocaine, has not used in 20 years. - Past Family History Sister(s) Family Medical History: Cancer, Deep Vein Thrombosis (DVT) Additional Family Medical History / Comment(s): Patient has one sister that from liver cancer. Brother(s) Family Medical History: Cancer, Deep Vein Thrombosis (DVT) Additional Family Medical History / Comment(s): Patient has 1 brother with past ETOH, past drug abuse, DVTs. She has a second brother that has from throat cancer. Daughter(s) Family Medical History: Diabetes Mellitus, Myocardial Infarction ([place]) Additional Family Medical History / Comment(s): Daughter at 23 yrs old from massive [place]. Father Family Medical History: Myocardial Infarction ([place]) Additional Family Medical History / Comment(s): from [place] at age 44 Mother Family Medical History: Cancer Additional Family Medical History / Comment(s): B/L breast cancer Medications and Allergies Home Medications Medication Instructions Recorded Confirmed Type Venlafaxine HCl [Effexor XR] 225 mg PO DAILY 10/21/16 04/10/23 History Pantoprazole Sodium [Protonix] 40 mg PO BID 04/06/20 04/10/23 History Meclizine [Antivert] 25 mg PO TID PRN 01/16/21 04/10/23 History Ferrous Sulfate [Iron (65 MG 325 mg PO DAILY 10/02/21 04/10/23 History Elemental)] Cetirizine HCl [Zyrtec] 10 mg PO DAILY 07/15/22 04/10/23 History Cholecalciferol [Vitamin D3 (125 125 mcg PO TID 07/15/22 04/10/23 History Mcg = 5000 Iu)] Gabapentin 300 mg PO TID 07/15/22 04/10/23 History Glucagon [Baqsimi] 1 spray NASAL DIRECTED PRN 07/15/22 04/10/23 History Ipratropium-Albuterol Nebulize 3 ml INHALATION RT-QID PRN 07/15/22 04/10/23 History [Duoneb 0.5 mg-3 mg/3 ml Soln] Levothyroxine Sodium [Synthroid] 50 mcg PO DAILY 07/15/22 04/10/23 History Levothyroxine Sodium [Synthroid] 200 mcg PO DAILY 07/15/22 04/10/23 History Magnesium Oxide [Mag-Ox] 400 mg PO DAILY 07/15/22 04/10/23 History Multivitamins, Thera [Multivitamin 1 tab PO DAILY 07/15/22 04/10/23 History (formulary)] Acetaminophen Tab [Tylenol] 650 mg PO Q6HR PRN tab 09/04/22 04/10/23 Rx Aspirin EC [Ecotrin Low Dose] 81 mg PO DAILY 10/03/22 04/10/23 History Butalb/APAP/Caff 50-325-40Mg 1 tab PO BID PRN 10/03/22 04/10/23 History [Fioricet 50-325-40] rOPINIRole HCL [Requip] 0.5 mg PO BID 10/03/22 04/10/23 History Loperamide [Imodium] 2 mg PO TID PRN #21 capsule 10/07/22 04/10/23 Rx HYDROcodone/APAP 7.5-325MG [[place] 1 tab PO BID PRN 01/05/23 04/10/23 History 7.5-325] Rosuvastatin Calcium [Crestor] 40 mg PO HS 01/05/23 04/10/23 History Metoclopramide HCl [Reglan] 5 mg PO TID PRN #30 tablet 01/07/23 04/10/23 Rx Metoprolol Succinate (ER) [Toprol 50 mg PO DAILY 30 Days #30 tab 01/07/23 04/10/23 Rx XL] Ondansetron Odt [Zofran ODT] 4 mg PO Q8HR PRN #10 tab 01/07/23 04/10/23 Rx Losartan [Cozaar] 25 mg PO DAILY #30 tab 01/24/23 04/10/23 Rx INSULIN LISPRO (For Pump) [humaLOG 0.01 units SQ-PUMP CONTINUOUS 04/10/23 04/10/23 History (For Pump)] Isosorbide Mononitrate ER [Imdur] 30 mg PO DAILY 04/10/23 04/10/23 History Mirtazapine 7.5 mg PO HS 04/10/23 04/10/23 History Allergies Allergy/AdvReac Type Severity Reaction Status Date / Time grass pollen Allergy Unknown Verified 04/10/23 16:36 latex Allergy Rash/Hives Verified 04/10/23 16:36 Sulfa (Sulfonamide Allergy Rash/Hives/ Verified 04/10/23 16:36 Antibiotics) Swelling venom-honey bee Allergy Anaphylaxis Verified 04/10/23 16:36 morphine AdvReac Decreased Verified 04/10/23 16:36 Blood Pressure prochlorperazine edisylate AdvReac Vomiting Verified 04/10/23 16:36 [From Compazine] Physical Exam Vitals: Vital Signs Temp Pulse Resp BP Pulse Ox 04/11/23 09:15 110 H 18 97/58 97 04/11/23 08:35 108 H 04/11/23 08:25 100 04/11/23 08:22 106 H 16 04/11/23 04:00 121/72 04/11/23 02:30 105 H 18 118/75 97 04/10/23 23:04 98 F 04/10/23 22:00 16 142/81 98 04/10/23 21:00 18 141/75 100 04/10/23 20:00 14 129/80 100 04/10/23 18:38 85 18 122/68 99 04/10/23 16:17 97.9 F 82 18 119/79 100 04/10/23 14:40 84 18 138/83 100 04/10/23 12:50 97.7 F 76 16 117/72 97 Results CBC & Chem 7: 04/10/23 12:55 04/10/23 12:55 Labs: Abnormal Lab Results - Last 24 Hours (Table) 04/10/23 04/10/23 Range/Units 12:55 12:55 PT 9.9 L (10.0-12.5) sec Potassium 5.9 H (3.5-5.1) mmol/L BUN 26 H (7-17) mg/dL Glucose 125 H (74-99) mg/dL Alkaline Phosphatase 148 H (38-126) U/L
--- NOTE | 2023-04-11 20:45 | CT ---
EXAMINATION TYPE: CT chest angio for PE DATE OF EXAM: 04/11/2023 COMPARISON: NONE HISTORY: High D-Dimer, SOB. Elevated d-dimer. CT DLP: 290.4 mGycm. Automated Exposure Control for Dose Reduction was Utilized. CONTRAST: CTA scan of the thorax is performed with IV Contrast, patient injected with 80 cc mL of Isovue 370, p ulmonary embolism protocol. MIP Images are created on CT scanner and reviewed. FINDINGS: LUNGS: Areas of patchy groundglass opacity with organizing nodular consolidations in the the posterio r inferior right upper lobe are present. Additional areas of involvement in the superior right lower lobe noted. Dependent opacity in both lower lungs favors atelectasis. No pleural effusion or pneumoth orax is seen bilaterally. There is redemonstration of subpleural 12 mm calcified left lower lobe nodu le or benign granuloma axial image 91. Calcified left hilar lymph nodes are present. MEDIASTINUM: There is satisfactory enhancement of the pulmonary artery and its branches, there is no CT evidence for pulmonary embolism. Some enhancement of the thoracic aorta without aneurysm or dissec tion. Coronary artery calculation is present which is noted marker for underlying coronary artery dis ease. No cardiomegaly or pericardial effusion. Calcification in the left ventricular apex is noted. C alcified subcarinal lymph nodes are seen. Mild/moderate left atrial dilatation redemonstrated. OTHER: Scoliosis is present. Pneumobilia is seen. There is partially visualized atrophic left kidney with upper pole calculus on the last axial images IMPRESSION: 1. No CT evidence for acute pulmonary embolism. 2. Evidence of old granulomatous disease redemonstrated. There are new multifocal areas of groundglas s opacity and organizing nodular consolidations involving the posterior inferior right upper lobe and superior right lower lobe worrisome for acute multilobar process or pneumonia. Correlate clinically.
[2023-04-11] MEDS: ATORVASTATIN 80 MG TAB PO SCH (21:32)
[2023-04-11] MEDS: MIRTAZAPINE 15 MG TAB PO SCH (21:32)
[2023-04-12] MEDS: LEVOTHYROXINE 100 MCG TAB PO SCH (05:35)
[2023-04-12] MEDS: PANTOPRAZOLE 40 MG TABLET PO SCH (05:35)
[2023-04-12] MEDS: LEVOTHYROXINE 50 MCG TAB PO SCH (05:35)
[2023-04-12] MEDS ORDERED: METOPROLOL SUCCINATE (ER) 25 MG TAB.ER.24H PO SCH (09:00)
[2023-04-12] MEDS: ASPIRIN 81 MG PO SCH (09:44)
[2023-04-12] MEDS: VENLAFAXINE HCL ER 75 MG CAP PO SCH (09:44)
[2023-04-12] MEDS: ISOSORBIDE MONONITRATE ER 30 MG TAB.ER.24H PO SCH (09:45)
[2023-04-12] MEDS: RANOLAZINE 500 MG TAB.ER.12H PO SCH (09:45)
[2023-04-12] MEDS: MULTIVITAMINS, THERA 1 EACH TAB PO SCH (09:45)
[2023-04-12] MEDS: FERROUS SULFATE 325 MG TAB PO SCH (09:45)
[2023-04-12] MEDS: LORATADINE 10 MG TAB PO SCH (09:45)
[2023-04-12] MEDS: CHOLECALCIFEROL 125 MCG (5000 IU) TABLET PO SCH (09:45)
[2023-04-12] MEDS: MAGNESIUM OXIDE 400 MG TAB PO SCH (09:45)
[2023-04-12] MEDS: GABAPENTIN 300 MG CAP PO SCH (09:45)
[2023-04-12 11:25] LABS: African American GFR (CKD) 47 (>60 ml/min/1.73 sqM); Anion Gap 18 mmol/L; Blood Urea Nitrogen 28 mg/dL (7-17); Calcium 8.6 mg/dL (8.4-10.2); Carbon Dioxide 18 mmol/L (22-30); Chloride 100 mmol/L (98-107); Glucose 194 mg/dL (74-99); Non-African American GFR(CKD) 41 (>60 ml/min/1.73 sqM); Potassium 4.4 mmol/L (3.5-5.1); Sodium 136 mmol/L (137-145)
--- NOTE | 2023-04-12 14:43 | P.DS ---
Providers Date of admission: 04/10/23 15:26 Expected date of discharge: 04/12/23 Attending physician: Dusty Olivares MD Consults: 04/10/23 19:00 Consult Physician Urgent Consulting Provider: Dilshad Ball Consult Reason/Comments: Chest pain Do you want consulting provider notified?: Yes Primary care physician: [facility] Hospital Course: Discharge diagnoses; Chest pain, Acute coronary syndrome ruled out Hyperkalemia Hypertension Hypothyroidism Insulin-dependent diabetes mellitus Restless leg syndrome syndrome Hospital course; patient is 63-year-old lady with past medical history significant for hypertension, coronary artery disease status post stent placements, hyperlipidemia, hypothyroidism, present to the ER because of chest pain that started last night. Patient stated that she was sitting all right when suddenly she started noticing pressure in the center of her chest. Chest pain was intermittent, nonradiating, no aggravating or relieving factors associated with chest pain, did complain of shortness of breath that time. Patient stated that this chest pain was similar to her previous episodes of chest pain that required stent placement. Patient took aspirin and decided to come to the ER. Initial lab work done in the ER showed WBC 7.5, hemoglobin 11.8, platelet count 266, sodium 141, potassium 5.9 BUN 26, creatinine 0.98, glucose 125, troponin 0.012 EKG done in the ER showed heart rate 96, QRS 85, no ST segment elevation seen, no T-wave inversion seen. Chest x-ray done in the ER showed chronic changes without acute pulmonary process Patient admitted to medicine service 04/12. Patient seen and examined. Patient has been cleared by cardiology, losartan has been discontinued because of hypotension and hyperkalemia, cardiology also decreased the dose of Toprol to 25 mg daily PHYSICAL EXAMINATION: GENERAL: The patient is alert and oriented x3, not in any acute distress. Well developed, well nourished. HEENT: Pupils are round and equally reacting to light. EOMI. No scleral icterus. No conjunctival pallor. Normocephalic, atraumatic. No pharyngeal erythema. No thyromegaly. CARDIOVASCULAR: S1 and S2 present. No murmurs, rubs, or gallops. PULMONARY: Chest is clear to auscultation, no wheezing or crackles. ABDOMEN: Soft, nontender, nondistended, normoactive bowel sounds. No palpable organomegaly. MUSCULOSKELETAL: No joint swelling or deformity. EXTREMITIES: No cyanosis, clubbing, or pedal edema. NEUROLOGICAL: Gross neurological examination did not reveal any focal deficits. SKIN: No rashes. Dictation was produced using [employer] dictation software. please excuse any grammatical, word or spelling errors. Patient Condition at Discharge: Good Plan - Discharge Summary New Discharge Prescriptions: New Ranolazine [Ranexa] 500 mg PO Q12HR #60 tab Metoprolol Succinate (ER) [Toprol XL] 25 mg PO DAILY 30 Days #30 tab Continue Venlafaxine HCl [Effexor XR] 225 mg PO DAILY Pantoprazole Sodium [Protonix] 40 mg PO BID Meclizine [Antivert] 25 mg PO TID PRN PRN Reason: DIZZINESS Magnesium Oxide [Mag-Ox] 400 mg PO DAILY Levothyroxine Sodium [Synthroid] 200 mcg PO DAILY Levothyroxine Sodium [Synthroid] 50 mcg PO DAILY Cholecalciferol [Vitamin D3 (125 Mcg = 5000 Iu)] 125 mcg PO TID Cetirizine HCl [Zyrtec] 10 mg PO DAILY Acetaminophen Tab [Tylenol] 650 mg PO Q6HR PRN tab PRN Reason: Fever And/ Or Pain Aspirin EC [Ecotrin Low Dose] 81 mg PO DAILY HYDROcodone/APAP 7.5-325MG [[place] 7.5-325] 1 tab PO BID PRN PRN Reason: Pain Metoclopramide HCl [Reglan] 5 mg PO TID PRN #30 tablet PRN Reason: Nausea Ondansetron Odt [Zofran ODT] 4 mg PO Q8HR PRN #10 tab PRN Reason: Nausea Mirtazapine 7.5 mg PO HS Ferrous Sulfate [Iron (65 MG Elemental)] 325 mg PO DAILY Multivitamins, Thera [Multivitamin (formulary)] 1 tab PO DAILY Ipratropium-Albuterol Nebulize [Duoneb 0.5 mg-3 mg/3 ml Soln] 3 ml INHALATION RT-QID PRN PRN Reason: Shortness Of Breath Glucagon [Baqsimi] 1 spray NASAL DIRECTED PRN PRN Reason: Severe Hypoglycemia Gabapentin 300 mg PO TID Butalb/APAP/Caff 50-325-40Mg [Fioricet 50-325-40] 1 tab PO BID PRN PRN Reason: Migraine Headache rOPINIRole HCL [Requip] 0.5 mg PO BID Loperamide [Imodium] 2 mg PO TID PRN #21 capsule PRN Reason: Diarrhea Rosuvastatin Calcium [Crestor] 40 mg PO HS Isosorbide Mononitrate ER [Imdur] 30 mg PO DAILY INSULIN LISPRO (For Pump) [humaLOG (For Pump)] 0.01 units SQ-PUMP CONTINUOUS Discontinued Losartan [Cozaar] 25 mg PO DAILY #30 tab Metoprolol Succinate (ER) [Toprol XL] 50 mg PO DAILY 30 Days #30 tab Discharge Medication List Venlafaxine HCl [Effexor XR] 225 mg PO DAILY 10/21/16 [History] Pantoprazole Sodium [Protonix] 40 mg PO BID 04/06/20 [History] Meclizine [Antivert] 25 mg PO TID PRN 01/16/21 [History] Ferrous Sulfate [Iron (65 MG Elemental)] 325 mg PO DAILY 10/02/21 [History] Cetirizine HCl [Zyrtec] 10 mg PO DAILY 07/15/22 [History] Cholecalciferol [Vitamin D3 (125 Mcg = 5000 Iu)] 125 mcg PO TID 07/15/22 [History] Gabapentin 300 mg PO TID 07/15/22 [History] Glucagon [Baqsimi] 1 spray NASAL DIRECTED PRN 07/15/22 [History] Ipratropium-Albuterol Nebulize [Duoneb 0.5 mg-3 mg/3 ml Soln] 3 ml INHALATION RT-QID PRN 07/15/22 [History] Levothyroxine Sodium [Synthroid] 50 mcg PO DAILY 07/15/22 [History] Levothyroxine Sodium [Synthroid] 200 mcg PO DAILY 07/15/22 [History] Magnesium Oxide [Mag-Ox] 400 mg PO DAILY 07/15/22 [History] Multivitamins, Thera [Multivitamin (formulary)] 1 tab PO DAILY 07/15/22 [History] Acetaminophen Tab [Tylenol] 650 mg PO Q6HR PRN tab 09/04/22 [Rx] Aspirin EC [Ecotrin Low Dose] 81 mg PO DAILY 10/03/22 [History] Butalb/APAP/Caff 50-325-40Mg [Fioricet 50-325-40] 1 tab PO BID PRN 10/03/22 [History] rOPINIRole HCL [Requip] 0.5 mg PO BID 10/03/22 [History] Loperamide [Imodium] 2 mg PO TID PRN #21 capsule 10/07/22 [Rx] HYDROcodone/APAP 7.5-325MG [[place] 7.5-325] 1 tab PO BID PRN 01/05/23 [History] Rosuvastatin Calcium [Crestor] 40 mg PO HS 01/05/23 [History] Metoclopramide HCl [Reglan] 5 mg PO TID PRN #30 tablet 01/07/23 [Rx] Ondansetron Odt [Zofran ODT] 4 mg PO Q8HR PRN #10 tab 01/07/23 [Rx] INSULIN LISPRO (For Pump) [humaLOG (For Pump)] 0.01 units SQ-PUMP CONTINUOUS 04/10/23 [History] Isosorbide Mononitrate ER [Imdur] 30 mg PO DAILY 04/10/23 [History] Mirtazapine 7.5 mg PO HS 04/10/23 [History] Metoprolol Succinate (ER) [Toprol XL] 25 mg PO DAILY 30 Days #30 tab 04/12/23 [Rx] Ranolazine [Ranexa] 500 mg PO Q12HR #60 tab 04/12/23 [Rx] Follow up Appointment(s)/Referral(s): Sahra Elder MD [Primary Care Provider] - 1-2 days Dilshad Ball DO [STAFF PHYSICIAN] - 1 Week Discharge Disposition: HOME SELF-CARE
[2023-04-12 15:23] VITALS: BP 111/69; PULSE 85; RESP 19; TEMP 98.1
--- NOTE | 2023-04-12 15:53 | P.PN ---
Subjective Progress Note Date: 04/12/23 HISTORY OF PRESENT ILLNESS: This is a 63-year-old female with a past medical history significant for coronary artery disease, syncope with recent loop recorder insertion (02/2023 for syncope), hyperlipidemia, hypertension, and diabetes. Patient follows in the office with Dr. Sierra. We have been asked to see the patient in consultation for chest pain. Patient examined at the bedside in the emergency room. Patient appears somewhat confused at the time of examination. The patient states she was walking up the stairs yesterday when she had a syncopal episode. She states that she woke up and then continue walking into her apartment. She states no one was around at this time. She also reports having chest pain last night in the middle of her chest. She states that she has been having diarrhea as well. She reports having a cough and feeling diaphoretic at home. At the time of examination, the patient denies any chest pain or pressure. She denies any shortness of breath. * EKG reveals sinus mechanism with nonspecific ST-T wave changes. Repeat EKG reveals ST depression in lead II and T-wave inversions in lateral leads * Chest xray chronic changes without acute pulmonary process * Most recent echocardiogram obtained in January 2023 revealing ejection fraction 50-55%, no wall motion abnormalities, and no significant valvular abnormalities * Cardiac catheterization history: December 2022 revealing stable coronary artery disease. 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 Atretic small caliber diffusely diseased LAD similar to her angiograms. Normal left sided filling pressures. 04/12/2023 Loop recorder interrogation with no significant findings. She reports that her chest pressure is better, as well as her shortness of breath. No dizziness. No swelling. CTA was negative for PE. PHYSICAL EXAM: VITAL SIGNS: Reviewed. GENERAL: Well-developed in no acute distress. HEENT: Head is normocephalic. Pupils are equal, round. Sclerae anicteric. Mucous membranes of the mouth are moist. LUNGS: Respirations even and unlabored. Lungs essentially clear to auscultation bilaterally. HEART: Regular rate and rhythm. S1 and S2 heard. ABDOMEN: Soft. Nondistended. Nontender. redness in mid fold of abdomen. EXTREMITIES: Normal range of motion. No clubbing or cyanosis. Peripheral pulses intact. No lower extremity edema NEUROLOGIC: Awake and alert. Oriented x 3. ASSESSMENT: Chest pain, troponins negative 3 Questionable syncope History of recent syncope with loop recorder implantation Diarrhea Coronary artery disease Hypertension Hyperlipidemia Diabetes PLAN: An acute coronary event has been ruled out Continue current mediations Interrogate loop recorder- shows no significant episodes to account for her syncope OK to discharge home from cardiology standpoint. Follow up in clinic in [address] Sierra. Nurse practitioner note has been reviewed by physician. Signing provider agrees with the documented findings, assessment, and plan of care. Objective - Vital Signs Vital signs: Vital Signs Temp 98.1 F 04/12/23 15:00 Pulse 85 04/12/23 15:00 Resp 19 04/12/23 15:00 BP 111/69 04/12/23 15:00 Pulse Ox 100 04/12/23 15:00 FiO2 Intake & Output 04/11/23 04/12/23 04/12/23 18:59 06:59 18:59 Weight 66.678 kg Other: # Voids 1 2 # Bowel Movements 1 - Labs CBC & Chem 7: 04/10/23 12:55 04/12/23 10:45 Labs: Abnormal Lab Results - Last 24 Hours (Table) 04/12/23 Range/Units 10:45 Sodium 136 L (137-145) mmol/L Carbon Dioxide 18 L (22-30) mmol/L BUN 28 H (7-17) mg/dL Creatinine 1.39 H (0.52-1.04) mg/dL Glucose 194 H (74-99) mg/dL
== END 2023-04-12 16:20 | disposition home or self-care (01) ==
LOC: EC 12:43 → 6NMEDSUR 15:26
PROVIDERS: ADMIT Internal Medicine; ATTEND Internal Medicine
DX: R07.89 Other chest pain (principal); E87.5 Hyperkalemia; J44.9 Chronic obstructive pulmonary disease, unspecified; I95.9 Hypotension, unspecified; T46.5X5A Adverse effect of other antihypertensive drugs, initial encounter; E11.9 Type 2 diabetes mellitus without complications; I25.10 Atherosclerotic heart disease of native coronary artery without angina pectoris; I10 Essential (primary) hypertension; E89.0 Postprocedural hypothyroidism; E78.5 Hyperlipidemia, unspecified; K21.9 Gastro-esophageal reflux disease without esophagitis; M06.9 Rheumatoid arthritis, unspecified; G62.9 Polyneuropathy, unspecified; R55 Syncope and collapse; R19.7 Diarrhea, unspecified; R61 Generalized hyperhidrosis; G25.81 Restless legs syndrome; G47.30 Sleep apnea, unspecified; I25.2 Old myocardial infarction; H40.9 Unspecified glaucoma; G89.29 Other chronic pain; M54.9 Dorsalgia, unspecified; F32.A Depression, unspecified; F17.210 Nicotine dependence, cigarettes, uncomplicated; Z79.4 Long term (current) use of insulin; Z79.890 Hormone replacement therapy; Z79.82 Long term (current) use of aspirin; Z79.899 Other long term (current) drug therapy; Z91.030 Bee allergy status; Z91.040 Latex allergy status; Z88.5 Allergy status to narcotic agent; Z88.2 Allergy status to sulfonamides; Z88.8 Allergy status to other drugs, medicaments and biological substances; Z91.048 Other nonmedicinal substance allergy status; Z16.22 Resistance to vancomycin related antibiotics; Z16.12 Extended spectrum beta lactamase (ESBL) resistance; Z95.5 Presence of coronary angioplasty implant and graft; Z96.41 Presence of insulin pump (external) (internal); Z86.73 Personal history of transient ischemic attack (TIA), and cerebral infarction without residual deficits; Z95.818 Presence of other cardiac implants and grafts; Z90.5 Acquired absence of kidney; Z85.528 Personal history of other malignant neoplasm of kidney; Z86.718 Personal history of other venous thrombosis and embolism; Z87.440 Personal history of urinary (tract) infections; Z86.19 Personal history of other infectious and parasitic diseases; Z86.14 Personal history of Methicillin resistant Staphylococcus aureus infection; Z90.49 Acquired absence of other specified parts of digestive tract; Z87.19 Personal history of other diseases of the digestive system; Z98.891 History of uterine scar from previous surgery; Z98.42 Cataract extraction status, left eye; Z98.41 Cataract extraction status, right eye; Z96.1 Presence of intraocular lens; Z87.898 Personal history of other specified conditions; Z98.890 Other specified postprocedural states; Z82.49 Family history of ischemic heart disease and other diseases of the circulatory system; Z83.3 Family history of diabetes mellitus; Z80.0 Family history of malignant neoplasm of digestive organs; Z80.8 Family history of malignant neoplasm of other organs or systems; Z81.1 Family history of alcohol abuse and dependence; Z81.3 Family history of other psychoactive substance abuse and dependence; Z80.3 Family history of malignant neoplasm of breast
CPT/HCPCS: 96374; 96375; 99285; 36415; 94640 ×2; 94760 ×2; 93005; 85379; 80053; 80048; 83735; 84132; 84484 ×2; 85025; 85610; 85730; 71046; 71275; G0378 ×3; J2405; J3010; Q9967

== ENCOUNTER 2023-05-04 16:48 | Observation (INO) | payer OTHER ==
--- NOTE | 2023-05-04 17:06 | ED ---
Chest Pain HPI - General Chief Complaint: Chest Pain Stated Complaint: chest pains Time Seen by Provider: 05/04/23 17:02 Source: patient, RN notes reviewed, old records reviewed Mode of arrival: ambulatory Limitations: no limitations - History of Present Illness Initial Comments: This is a 63-year-old female to the emergency department for evaluation. Patient presents today for evaluation of severe pain. Chest pain with history of heart disease. Patient states is painful just like prior heart attack with heaviness on a test and shortness of breath. Pain is persistent here in the ER. Patient has chest pain right arm pain and shortness of breath with heaviness on her chest. MD Complaint: chest pain -: hour(s) Onset: during rest, during exertion Pain Location: left chest Pain Radiation: RUE Severity: moderate Severity scale (1-10): 4 Quality: aching Consistency: constant Improves With: nothing Worsens With: nothing Anginal Symptoms: diaphoresis, dyspnea, sense of impending doom Other Symptoms: palpitations Treatments Prior to Arrival: none - Related Data Home Medications Medication Instructions Recorded Confirmed Venlafaxine HCl [Effexor XR] 225 mg PO DAILY 10/21/16 04/10/23 Pantoprazole Sodium [Protonix] 40 mg PO BID 04/06/20 04/10/23 Meclizine [Antivert] 25 mg PO TID PRN 01/16/21 04/10/23 Ferrous Sulfate [Iron (65 MG 325 mg PO DAILY 10/02/21 04/10/23 Elemental)] Cetirizine HCl [Zyrtec] 10 mg PO DAILY 07/15/22 04/10/23 Cholecalciferol [Vitamin D3 (125 125 mcg PO TID 07/15/22 04/10/23 Mcg = 5000 Iu)] Gabapentin 300 mg PO TID 07/15/22 04/10/23 Glucagon [Baqsimi] 1 spray NASAL DIRECTED PRN 07/15/22 04/10/23 Ipratropium-Albuterol Nebulize 3 ml INHALATION RT-QID PRN 07/15/22 04/10/23 [Duoneb 0.5 mg-3 mg/3 ml Soln] Levothyroxine Sodium [Synthroid] 50 mcg PO DAILY 07/15/22 04/10/23 Levothyroxine Sodium [Synthroid] 200 mcg PO DAILY 07/15/22 04/10/23 Magnesium Oxide [Mag-Ox] 400 mg PO DAILY 07/15/22 04/10/23 Multivitamins, Thera [Multivitamin 1 tab PO DAILY 07/15/22 04/10/23 (formulary)] Aspirin EC [Ecotrin Low Dose] 81 mg PO DAILY 10/03/22 04/10/23 Butalb/APAP/Caff 50-325-40Mg 1 tab PO BID PRN 10/03/22 04/10/23 [Fioricet 50-325-40] rOPINIRole HCL [Requip] 0.5 mg PO BID 10/03/22 04/10/23 HYDROcodone/APAP 7.5-325MG [[place] 1 tab PO BID PRN 01/05/23 04/10/23 7.5-325] Rosuvastatin Calcium [Crestor] 40 mg PO HS 01/05/23 04/10/23 INSULIN LISPRO (For Pump) [humaLOG 0.01 units SQ-PUMP CONTINUOUS 04/10/23 04/10/23 (For Pump)] Isosorbide Mononitrate ER [Imdur] 30 mg PO DAILY 04/10/23 04/10/23 Mirtazapine 7.5 mg PO HS 04/10/23 04/10/23 Previous Rx's Medication Instructions Recorded Acetaminophen Tab [Tylenol] 650 mg PO Q6HR PRN tab 09/04/22 Loperamide [Imodium] 2 mg PO TID PRN #21 capsule 10/07/22 Metoclopramide HCl [Reglan] 5 mg PO TID PRN #30 tablet 01/07/23 Ondansetron Odt [Zofran ODT] 4 mg PO Q8HR PRN #10 tab 01/07/23 Metoprolol Succinate (ER) [Toprol 25 mg PO DAILY 30 Days #30 tab 04/12/23 XL] Ranolazine [Ranexa] 500 mg PO Q12HR #60 tab 04/12/23 Allergies Allergy/AdvReac Type Severity Reaction Status Date / Time grass pollen Allergy Unknown Verified 05/04/23 16:59 latex Allergy Rash/Hives Verified 05/04/23 16:59 Sulfa (Sulfonamide Allergy Rash/Hives/ Verified 05/04/23 16:59 Antibiotics) Swelling venom-honey bee Allergy Anaphylaxis Verified 05/04/23 16:59 prochlorperazine edisylate AdvReac Vomiting Verified 05/04/23 16:59 [From Compazine] Review of Systems ROS Statement: Those systems with pertinent positive or pertinent negative responses have been documented in the HPI. ROS Other: All systems not noted in ROS Statement are negative. EKG Findings - EKG Comments: EKG Findings:: EKG is sinus tachycardia 106 NC 136 QRS 81 QTC 396 Past Medical History Past Medical History: Coronary Artery Disease (CAD), Cancer, COPD, CVA/TIA, Diabetes Mellitus, Deep Vein Thrombosis (DVT), Eye Disorder, GERD/Reflux, Hyperlipidemia, Hypertension, Myocardial Infarction (DC), Renal Disease, Rheumatoid Arthritis (RA), Sleep Apnea/CPAP/BIPAP, Syncope, Thyroid Disorder Additional Past Medical History / Comment(s): 09/16/16 with SBO with surgery/possible septic emboli with cavitary lesions bilateral lungs. 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 coli 2015 requiring PICC line insertion for IV antibiotics, restless leg syndrome, peripheral neuropathy. Hx bilateral glaucoma, hx syncope r/t low blood sugars. No CPAP use. pt states had high blood sugar 1 week ago and was seen an [facility]. Last Myocardial Infarction Date:: 2019 History of Any Multi-Drug Resistant Organisms: ESBL, MRSA, VRE Date of last positivie culture/infection: 05/07/16 ESBL, 05/15/16 VRE, MRSA 09/2017 - upper lip MDRO Source:: URINE E.COLI, EC GALLINARUM Past Surgical History: Appendectomy, Bowel Resection, Section, Heart Catheterization, Heart Catheterization With Stent, Hernia Repair Additional Past Surgical History / Comment(s): 09/30 exploratory laparotomy with lysis of adhesions, bowel resection d/t obstruction. repair incarcerated incisional hernia with abdominal washout, thyroidectomy(non functioning), heart cath 06/28 - 100% occluded, unable to stent, partial left nephrectomy for left kidney renal cell carcinoma, PICC line insertion (since removed), colonoscopy, bilateral cataract removal with lens implants, 2 Sections. cardiac Stent 03/2021 Past Anesthesia/Blood Transfusion Reactions: No Reported Reaction Date of Last Stent Placement:: 04/06/2021 Past Psychological History: Depression Smoking Status: Current some day smoker Past Alcohol Use History: None Reported Past Drug Use History: Marijuana - Past Family History Sister(s) Family Medical History: Cancer, Deep Vein Thrombosis (DVT) Additional Family Medical History / Comment(s): Patient has one sister that from liver cancer. Brother(s) Family Medical History: Cancer, Deep Vein Thrombosis (DVT) Additional Family Medical History / Comment(s): Patient has 1 brother with past ETOH, past drug abuse, DVTs. She has a second brother that has from throat cancer. Daughter(s) Family Medical History: Diabetes Mellitus, Myocardial Infarction (DC) Additional Family Medical History / Comment(s): Daughter at 23 yrs old from massive DC. Father Family Medical History: Myocardial Infarction (DC) Additional Family Medical History / Comment(s): from DC at age 44 Mother Family Medical History: Cancer Additional Family Medical History / Comment(s): B/L breast cancer General Exam Limitations: no limitations General appearance: alert, in no apparent distress Head exam: Present: atraumatic, normocephalic, normal inspection Eye exam: Present: normal appearance, PERRL, EOMI. Absent: scleral icterus, conjunctival injection, periorbital swelling ENT exam: Present: normal exam, mucous membranes moist Neck exam: Present: normal inspection. Absent: tenderness, meningismus, ly mphadenopathy Respiratory exam: Present: normal lung sounds bilaterally. Absent: respiratory distress, wheezes, rales, rhonchi, stridor Cardiovascular Exam: Present: regular rate, normal rhythm, normal heart sounds. Absent: systolic murmur, diastolic murmur, rubs, gallop, clicks GI/Abdominal exam: Present: soft, normal bowel sounds. Absent: distended, tenderness, guarding, rebound, rigid Extremities exam: Present: normal inspection, full ROM, normal capillary refill. Absent: tenderness, pedal edema, joint swelling, calf tenderness Back exam: Present: normal inspection Neurological exam: Present: alert, oriented X3, CN II-XII intact Psychiatric exam: Present: normal affect, normal mood Skin exam: Present: warm, dry, intact, normal color. Absent: rash Course Vital Signs 11/05/04/23 05/04/23 16:59 17:01 18:01 Temperature 97.8 F Pulse Rate 72 106 H 101 H Pulse Rate [ Pulse Oximetery ] Respiratory 18 17 17 Rate Blood Pressure 105/72 135/85 135/85 O2 Sat by Pulse 92 L Oximetry 05/04/23 18:16 Temperature Pulse Rate Pulse Rate [ 108 H Pulse Oximetery ] Respiratory Rate Blood Pressure O2 Sat by Pulse Oximetry - Reevaluation(s) Reevaluation #1: 05/04/23 19:15 Medical records reviewed Reevaluation #2: 05/04/23 19:15 Patient still has chest pain here in the ER Reevaluation #3: 05/04/23 19:16 Patient informed results and questions answered Reevaluation #4: 05/04/23 19:16 Was pt. sent in by a medical professional or institution (GISELL Collins, SWATCH CUTTER, urgent care, hospital, or prison...) When possible be specific @ -no Did you speak to anyone other than the patient for history (EMS, parent, family, police, friend...)? What history was obtained from this source @ -no Did you review nursing and triage notes (agree or disagree)? Why? @ -agree Are old charts reviewed (outside hosp., previous admission, EMS record, old EKG, old radiological studies, urgent care reports/EKG's, prison records)? Report findings @ -yes Differential Diagnosis (chest pain, altered mental status, abdominal pain women, abdominal pain men, vaginal bleeding, weakness, fever, dyspnea, syncope, headache, dizziness, GI bleed, back pain, seizure, CVA, palpatations, mental health, musculoskeletal)? @ -prior EKG interpreted by me (3pts min.). @ -yes X-rays interpreted by me (1pt min.). @ -yes CT interpreted by me (1pt min.). @ -no U/S interpreted by me (1pt. min.). @ -no What testing was considered but not performed or refused? (CT, X-rays, U/S, labs)? Why? @ -none What meds were considered but not given or refused? Why? @ -none Did you discuss the management of the patient with other professionals (professionals i.e. GISELL Collins, SWATCH CUTTER, lab, RT, psych nurse, manager social work, lace roller operator, teacher, accounting officer, case management assistant)? Give summary @ -no Was smoking cessation discussed for >3mins.? @ -no Was critical care preformed (if so, how long)? @ -no Were there social determinants of health that impacted care today? How? (Homelessness, low income, unemployed, alcoholism, drug addiction, transportation, low edu. Level, literacy, decrease access to med. care, alf, rehab)? @ -none Was there de-escalation of care discussed even if they declined (Discuss DNR or withdrawal of care, Hospice)? DNR status @ -no What co-morbidities impacted this encounter? (DM, HTN, Smoking, COPD, CAD, Cancer, CVA, ARF, Chemo, Hep., AIDS, mental health diagnosis, sleep apnea, morbid obesity)? @ -none Was patient admitted / discharged? Hospital course, mention meds given and route, prescriptions, significant lab abnormalities, going to OR and other pe rtinent info. @ - Undiagnosed new problem with uncertain prognosis? @ -no Drug Therapy requiring intensive monitoring for toxicity (Heparin, Nitro, Insulin, Cardizem)? @ -no Were any procedures done? @ -no Diagnosis/symptom? @ - Acute, or Chronic, or Acute on Chronic? @ -Acute Uncomplicated (without systemic symptoms) or Complicated (systemic symptoms)? @ -Complicated Side effects of treatment? @ -no Exacerbation, Progression, or Severe Exacerbation? @ -exacerbation Poses a threat to life or bodily function? How? (Chest pain, [place], DC, pneumonia, PE, COPD, DKA, ARF, appy, cholecystitis, CVA, Diverticulitis, Homicidal, Suicidal, threat to staff... and all critical care pts) @ -yes Reevaluation #5: 05/04/23 19:16 Differential Chest Pain: Stable Angina, Unstable Angina, STEMI, NSTEMI Aortic Dissection, Pneumothorax, Musculoskeletal, Esophageal Spasm GERD, Cholecystitis, Pancreatitis, Zoster, this is not meant to be an all-inclusive list. - Consultations Consultation #1: Spoke with GUIDO to agrees to admit the patient Chest Pain MDM - MDM 63 female to the emergency department for evaluation. Patient presents today for evaluation of chest pain with history of heart disease and stents, patient will be admitted for chest pain observation Disposition Clinical Impression: Chest pain, HTN (hypertension), Unstable angina pectoris Disposition: ADMITTED IP TO THIS HOSP Condition: Undetermined Is patient prescribed a controlled substance at d/c from ED?: No Referrals: Sahra Elder MD [Primary Care Provider] - 1-2 days Time of Disposition: 19:15
--- NOTE | 2023-05-04 18:35 | XR ---
EXAM: XR chest 1V portable CLINICAL INDICATION:Female, 63 years old with history of chest pain; [facility] COMPARISON: 04/10/2023 TECHNIQUE: Chest single view. FINDINGS: Lines/tubes/devices: EKG leads. Electronic device suggesting loop recorder redemonstrated projected o maryann the left cardiac silhouette, shown to be in the anterior chest wall on previous study. Partially seen necklace. Cardiomediastinum: Cardiac silhouette appears normal in size. Mild tortuous aorta. Unremarkable mediastinal silhouette. Vasculature: No increased pulmonary vasculature. Lungs/pleura: No consolidation, sizeable effusion, or visible pneumothorax. Stable radiodense small nodule at the l eft lower lobe, likely calcified granuloma. Bones/soft tissues: Bony thorax appears grossly intact with mild degenerative changes of the spine and shoulders noted. R egional soft tissues appear unremarkable. IMPRESSION: No acute cardiopulmonary findings.
[2023-05-04 19:14] LABS: Basophils % (A) 0 %; Eosinophils # (A) 0.2 k/uL (0-0.7); Eosinophils % (A) 5 %; HCT 36.5 % (34.0-46.0); Lymphocytes # (A) 1.5 k/uL (1.0-4.8); Lymphocytes % (A) 28 %; MCHC 32.9 g/dL (31.0-37.0); MCV 91.1 fL (80.0-100.0); Mean Platelet Volume 8.2; Monocytes # (A) 0.2 k/uL (0-1.0); Monocytes % (A) 3 %; Neutrophils # (A) 3.3 k/uL (1.3-7.7); Neutrophils % (A) 62 %; Platelet Count 258 k/uL (150-450); RBC 4.01 m/uL (3.80-5.40); RDW 14.5 % (11.5-15.5); WBC 5.4 k/uL (3.8-10.6)
[2023-05-04] MEDS ORDERED: ONDANSETRON 4 MG/2 ML VIAL IVP PRN (19:14)
[2023-05-04] MEDS ORDERED: NALOXONE 0.4 MG/ML 1 ML VIAL IV PRN (19:14)
[2023-05-04 21:07] LABS: ALT 12 U/L (4-34); African American GFR (CKD) 49 (>60 ml/min/1.73 sqM); Anion Gap 16 mmol/L; Blood Urea Nitrogen 39 mg/dL (7-17); Calcium 9.6 mg/dL (8.4-10.2); Carbon Dioxide 16 mmol/L (22-30); Chloride 105 mmol/L (98-107); Glucose 244 mg/dL (74-99); Lipase 39 U/L (23-300); Non-African American GFR(CKD) 43 (>60 ml/min/1.73 sqM); Sodium 137 mmol/L (137-145); Total Bilirubin 0.5 mg/dL (0.2-1.3)
[2023-05-04 21:14] LABS: NT-Pro-B-Type Natriuretic Pept 921 pg/mL
[2023-05-04 21:17] LABS: AST 24 U/L (14-36); Albumin 4.2 g/dL (3.5-5.0); Alkaline Phosphatase 132 U/L (38-126); Magnesium 1.9 mg/dL (1.6-2.3); Potassium 5.6 mmol/L (3.5-5.1); Total Protein 7.6 g/dL (6.3-8.2)
[2023-05-04 21:52] LABS: Partial Thromboplastin Time 23.5 sec (22.0-30.0); Prothrombin Time 10.8 sec (10.0-12.5)
[2023-05-04] MEDS: MORPHINE SULFATE 4 MG/ML SYRINGE IV PRN (22:51)
[2023-05-05] MEDS: MORPHINE SULFATE 4 MG/ML SYRINGE IV PRN (07:45)
[2023-05-05 08:25] VITALS: RESP 16; TEMP 98
[2023-05-05] MEDS ORDERED: ASPIRIN 81 MG PO SCH (09:45)
[2023-05-05] MEDS ORDERED: METOPROLOL SUCCINATE (ER) 25 MG TAB.ER.24H PO SCH (09:45)
[2023-05-05] MEDS ORDERED: ISOSORBIDE MONONITRATE ER 30 MG TAB.ER.24H PO SCH (09:45)
[2023-05-05] MEDS ORDERED: HYDROcodone/APAP 7.5-325MG 1 EACH TAB PO PRN (10:22)
[2023-05-05] MEDS ORDERED: METOCLOPRAMIDE 5 MG TAB PO PRN (10:22)
[2023-05-05] MEDS ORDERED: BUTALB/APAP/CAFF 50-325-40MG TAB PO PRN (10:22)
[2023-05-05] MEDS ORDERED: MECLIZINE 25 MG TAB PO PRN (10:22)
[2023-05-05] MEDS ORDERED: IPRATROPIUM-ALBUTEROL 3 ML NEB INHALATION PRN (10:22)
[2023-05-05] MEDS ORDERED: LEVOTHYROXINE 50 MCG TAB PO SCH (10:30)
[2023-05-05] MEDS ORDERED: LEVOTHYROXINE 100 MCG TAB PO SCH (10:30)
[2023-05-05] MEDS ORDERED: FERROUS SULFATE 325 MG TAB PO SCH (10:30)
--- NOTE | 2023-05-05 10:48 | P.CRDCN ---
History of Present Illness History of present illness: HISTORY OF PRESENT ILLNESS: This is a 63-year-old female with a past medical history significant for with coronary artery disease, hypertension, hyperlipidemia, diabetes, and loop recorder insertion. Patient follows in the office with Dr. Sierra. We have been asked to see the patient in consultation for chest pain. Patient examined at the bedside. Patient states she woke up yesterday morning with chest discomfort. She states the pain is in the middle of her chest and in her right arm and jaw. She states the pain has been constant since yesterday. She states the pain is worse with movement or trying to get out of bed. She also reports the pain is worse with chest wall palpation. She did receive morphine in ER which helped with her pain. Patient's vital signs are stable this morning. Patient's d- dimer elevated at 0.91. Patient was hospitalized last month and also found to have elevated d-dimer at that time. CTA completed during that admission was negative for PE. * EKG reveals T-wave inversions in lateral leads and ST depression in inferior leads, unchanged from previous EKG * Chest xray negative for acute process * Laboratory data: Troponin negative 2. * Most recent echocardiogram obtained in January 2023 revealed ejection fraction 50-55%, trace MR, mild TR * Cardiac catheterization history: December [address] 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 Atretic, small caliber diffusely diseased LAD, prior to similar angiograms. REVIEW OF SYSTEMS: At the time of my exam: CONSTITUTIONAL: Denies fever or chills. HEENT: Denies blurred vision, vision changes, or eye pain. Denies hemoptysis CARDIOVASCULAR: Denies chest pain. Denies orthopnea. Denies PND. Denies palpitations RESPIRATORY: Denies shortness of breath. GASTROINTESTINAL: Denies abdominal pain. Denies nausea or vomiting. HEMATOLOGIC: Denies bleeding disorders. GENITOURINARY: Denies any blood in urine. SKIN: Denies pruitis. Denies rash. PHYSICAL EXAM: VITAL SIGNS: Reviewed. GENERAL: Well-developed in no acute distress. HEENT: Head is normocephalic. Pupils are equal, round. Sclerae anicteric. Mucous membranes of the mouth are moist. Neck supple. No JVD or thyromegaly LUNGS: Respirations even and unlabored. Lungs essentially clear to auscultation bilaterally. HEART: Regular rate and rhythm. S1 and S2 heard. ABDOMEN: Soft. Nondistended. Nontender. EXTREMITIES: Normal range of motion. No clubbing or cyanosis. Peripheral pulses intact. No lower extremity edema NEUROLOGIC: Awake and alert. Oriented x 3. ASSESSMENT: Chest pain, reproducible, noncardiac, troponin negative 2 Coronary artery disease Hypertension Hyperlipidemia Diabetes History of loop recorder insertion Chronically elevated d-dimer with negative CTA, March 2023 PLAN: An acute coronary event has been ruled out No need to repeat echocardiogram as this was performed in January 2023 Resume home cardiac medications Patient to be discharged home this afternoon from a cardiac standpoint Nurse practitioner note has been reviewed by physician. Signing provider agrees with the documented findings, assessment, and plan of care. Past Medical History Past Medical History: Coronary Artery Disease (CAD), Cancer, COPD, CVA/TIA, Diabetes Mellitus, Deep Vein Thrombosis (DVT), Eye Disorder, GERD/Reflux, Hyperlipidemia, Hypertension, Myocardial Infarction ([place]), Renal Disease, Rheumatoid Arthritis ([place]), Sleep Apnea/CPAP/BIPAP, Syncope, Thyroid Disorder Additional Past Medical History / Comment(s): 09/16/16 with SBO with surgery/possible septic emboli with cavitary lesions bilateral lungs. 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 coli 2015 requiring PICC line insertion for IV antibiotics, restless leg syndrome, peripheral neuropathy. Hx bilateral glaucoma, hx syncope r/t low blood sugars. No CPAP use. pt states had high blood sugar 1 week ago and was seen an [facility]. Last Myocardial Infarction Date:: 2019 History of Any Multi-Drug Resistant Organisms: ESBL, MRSA, VRE Date of last positivie culture/infection: 05/07/16 ESBL, 05/15/16 VRE, MRSA 09/2017 - upper lip MDRO Source:: URINE E.COLI, EC GALLINARUM Past Surgical History: Appendectomy, Bowel Resection, Section, Heart Catheterization, Heart Catheterization With Stent, Hernia Repair Additional Past Surgical History / Comment(s): 09/30 exploratory laparotomy with lysis of adhesions, bowel resection d/t obstruction. repair incarcerated incisional hernia with abdominal washout, thyroidectomy(non functioning), heart cath 06/28 - 100% occluded, unable to stent, partial left nephrectomy for left kidney renal cell carcinoma, PICC line insertion (since removed), colonoscopy, bilateral cataract removal with lens implants, 2 Sections. cardiac Stent 03/2021 Past Anesthesia/Blood Transfusion Reactions: No Reported Reaction Date of Last Stent Placement:: 04/06/2021 Past Psychological History: Depression Smoking Status: Current some day smoker Past Alcohol Use History: None Reported Past Drug Use History: Marijuana - Past Family History Sister(s) Family Medical History: Cancer, Deep Vein Thrombosis (DVT) Additional Family Medical History / Comment(s): Patient has one sister that from liver cancer. Brother(s) Family Medical History: Cancer, Deep Vein Thrombosis (DVT) Additional Family Medical History / Comment(s): Patient has 1 brother with past ETOH, past drug abuse, DVTs. She has a second brother that has from throat cancer. Daughter(s) Family Medical History: Diabetes Mellitus, Myocardial Infarction ([place]) Additional Family Medical History / Comment(s): Daughter at 23 yrs old from massive [place]. Father Family Medical History: Myocardial Infarction ([place]) Additional Family Medical History / Comment(s): from [place] at age 44 Mother Family Medical History: Cancer Additional Family Medical History / Comment(s): B/L breast cancer Medications and Allergies Home Medications Medication Instructions Recorded Confirmed Type Venlafaxine HCl [Effexor XR] 225 mg PO DAILY 10/21/16 05/04/23 History Pantoprazole Sodium [Protonix] 40 mg PO BID 04/06/20 05/04/23 History Meclizine [Antivert] 25 mg PO TID PRN 01/16/21 05/04/23 History Ferrous Sulfate [Iron (65 MG 325 mg PO DAILY 10/02/21 05/04/23 History Elemental)] Cetirizine HCl [Zyrtec] 10 mg PO DAILY 07/15/22 05/04/23 History Cholecalciferol [Vitamin D3 (125 125 mcg PO TID 07/15/22 05/04/23 History Mcg = 5000 Iu)] Gabapentin 300 mg PO TID 07/15/22 05/04/23 History Glucagon [Baqsimi] 1 spray NASAL DIRECTED PRN 07/15/22 05/04/23 History Ipratropium-Albuterol Nebulize 3 ml INHALATION RT-QID PRN 07/15/22 05/04/23 History [Duoneb 0.5 mg-3 mg/3 ml Soln] Levothyroxine Sodium [Synthroid] 50 mcg PO DAILY 07/15/22 05/04/23 History Levothyroxine Sodium [Synthroid] 200 mcg PO DAILY 07/15/22 05/04/23 History Magnesium Oxide [Mag-Ox] 400 mg PO DAILY 07/15/22 05/04/23 History Multivitamins, Thera [Multivitamin 1 tab PO DAILY 07/15/22 05/04/23 History (formulary)] Acetaminophen Tab [Tylenol] 650 mg PO Q6HR PRN tab 09/04/22 05/04/23 Rx Aspirin EC [Ecotrin Low Dose] 81 mg PO DAILY 10/03/22 05/04/23 History Butalb/APAP/Caff 50-325-40Mg 1 tab PO BID PRN 10/03/22 05/04/23 History [Fioricet 50-325-40] rOPINIRole HCL [Requip] 0.5 mg PO BID 10/03/22 05/04/23 History Loperamide [Imodium] 2 mg PO TID PRN #21 capsule 10/07/22 05/04/23 Rx HYDROcodone/APAP 7.5-325MG [[place] 1 tab PO BID PRN 01/05/23 05/04/23 History 7.5-325] Rosuvastatin Calcium [Crestor] 40 mg PO HS 01/05/23 05/04/23 History Metoclopramide HCl [Reglan] 5 mg PO TID PRN #30 tablet 01/07/23 05/04/23 Rx Ondansetron Odt [Zofran ODT] 4 mg PO Q8HR PRN #10 tab 01/07/23 05/04/23 Rx INSULIN LISPRO (For Pump) [humaLOG 0.01 units SQ-PUMP CONTINUOUS 04/10/23 05/04/23 History (For Pump)] Isosorbide Mononitrate ER [Imdur] 30 mg PO DAILY 04/10/23 05/04/23 History Mirtazapine 7.5 mg PO HS 04/10/23 05/04/23 History Metoprolol Succinate (ER) [Toprol 25 mg PO DAILY 30 Days #30 tab 04/12/23 05/04/23 Rx XL] Amoxic-Pot Clav 875-125Mg 1 tab PO Q12HR 05/04/23 05/04/23 History [Augmentin 875-125] Fluconazole 150 mg PO ONCE PRN 05/04/23 05/04/23 History Allergies Allergy/AdvReac Type Severity Reaction Status Date / Time grass pollen Allergy Unknown Verified 05/04/23 20:00 latex Allergy Rash/Hives Verified 05/04/23 20:00 Sulfa (Sulfonamide Allergy Rash/Hives/ Verified 05/04/23 20:00 Antibiotics) Swelling venom-honey bee Allergy Anaphylaxis Verified 05/04/23 20:00 prochlorperazine edisylate AdvReac Vomiting Verified 05/04/23 20:00 [From Compazine] Physical Exam Vitals: Vital Signs Temp Pulse Pulse Resp BP BP Pulse Ox 05/05/23 08:16 98.0 F 87 16 127/85 98 05/05/23 07:52 100 18 132/71 97 05/05/23 07:42 97 18 144/86 96 05/05/23 06:02 97.9 F 74 16 128/65 96 05/05/23 01:05 98.8 F 79 16 121/81 96 05/04/23 23:10 92 16 136/93 97 05/04/23 22:39 98 18 154/93 97 05/04/23 21:45 92 16 130/80 97 05/04/23 19:34 98.7 F 88 16 127/88 97 05/04/23 18:16 108 H 05/04/23 18:01 101 H 17 135/85 05/04/23 17:01 106 H 17 135/85 05/04/23 16:59 97.8 F 72 18 105/72 92 L Intake and Output 05/04/23 05/05/23 05/05/23 22:59 06:59 14:59 Other: Weight 68.039 kg Results 05/04/23 17:25 05/04/23 19:32 Cardiac Enzymes 05/04/23 05/04/2323 Range/Units 19:32 19:32 06:30 AST 24 (14-36) U/L Troponin I <0.012 <0.012 (0.000-0.034) ng/mL Coagulation 05/04/23 Range/Units 21:29 PT 10.8 (10.0-12.5) sec APTT 23.5 (22.0-30.0) sec CBC 05/04/23 Range/Units 17:25 WBC 5.4 (3.8-10.6) k/uL RBC 4.01 (3.80-5.40) m/uL Hgb 12.0 (11.4-16.0) gm/dL Hct 36.5 (34.0-46.0) % Plt Count 258 (150-450) k/uL Comprehensive Metabolic Panel 05/04/23 Range/Units 19:32 Sodium 137 (137-145) mmol/L Potassium 5.6 H (3.5-5.1) mmol/L Chloride 105 (98-107) mmol/L Carbon Dioxide 16 L (22-30) mmol/L BUN 39 H (7-17) mg/dL Creatinine 1.33 H (0.52-1.04) mg/dL Glucose 244 H (74-99) mg/dL Calcium 9.6 (8.4-10.2) mg/dL AST 24 (14-36) U/L ALT 12 (4-34) U/L Alkaline Phosphatase 132 H (38-126) U/L Total Protein 7.6 (6.3-8.2) g/dL Albumin 4.2 (3.5-5.0) g/dL Current Medications Generic Name Dose Route Start Last Admin Trade Name Freq PRN Reason Stop Dose Admin Acetaminophen/Butalbital/Caffeine 1 each 05/05/23 10:22 Butalb/Apap/Caff 50-325-40mg Tab PO BID PRN Migraine Headache Hydrocodone Bitart/Acetaminophen 1 each 05/05/23 10:22 Hydrocodone/Apap 7.5-325mg 1 Each Tab PO BID PRN Pain Albuterol/Ipratropium 3 ml 05/05/23 10:22 Ipratropium-Albuterol 3 Ml Neb INHALATION RT-QID PRN Shortness Of Breath Aspirin 81 mg 05/05/23 09:45 Aspirin 81 Mg PO DAILY [facility] Atorvastatin Calcium 80 mg 05/05/23 21:00 Atorvastatin 80 Mg Tab PO HS [facility] Cholecalciferol 125 mcg 05/05/23 16:00 Cholecalciferol 125 Mcg (5000 Iu) Tablet PO TID [facility] Ferrous Sulfate 325 mg 05/05/23 10:30 Ferrous Sulfate 325 Mg Tab PO DAILY [facility] Gabapentin 300 mg 05/05/23 16:00 Gabapentin 300 Mg Cap PO TID [facility] Isosorbide Mononitrate 30 mg 05/05/23 09:45 Isosorbide Mononitrate Er 30 Mg Tab.Er.24h PO DAILY [facility] Levothyroxine Sodium 50 mcg 05/05/23 10:30 Levothyroxine 50 Mcg Tab PO DAILY@0630 [facility] Loratadine 10 mg 05/06/23 09:00 Loratadine 10 Mg Tab PO DAILY [facility] Magnesium Oxide 400 mg 05/06/23 09:00 Magnesium Oxide 400 Mg Tab PO DAILY [facility] Meclizine HCl 25 mg 05/05/23 10:22 Meclizine 25 Mg Tab PO TID PRN DIZZINESS Metoclopramide HCl 5 mg 05/05/23 10:22 Metoclopramide 5 Mg Tab PO TID PRN Nausea Metoprolol Succinate 25 mg 05/05/23 09:45 Metoprolol Succinate (Er) 25 Mg Tab.Er.24h PO DAILY [facility] Mirtazapine 7.5 mg 05/05/23 21:00 Mirtazapine 15 Mg Tab PO HS [facility] Morphine Sulfate 4 mg 05/04/23 19:14 05/05/23 07:45 Morphine Sulfate 4 Mg/Ml Syringe IV 4 mg Q4HR PRN Administration Severe Pain (Scale 7 to 10) Naloxone HCl 0.2 mg 05/04/23 19:14 Naloxone 0.4 Mg/Ml 1 Ml Vial IV Q2M PRN Opioid Reversal Non-Formulary Medication 225 mg 05/06/23 09:00 Venlafaxine Hcl [Effexor Xr] PO DAILY [facility] Non-Formulary Medication 200 mcg 05/05/23 10:30 Levothyroxine Sodium [Synthroid] PO DAILY [facility] Ondansetron HCl 4 mg 05/04/23 19:14 Ondansetron 4 Mg/2 Ml Vial IVP Q8HR PRN Nausea And Vomiting Pantoprazole Sodium 40 mg 05/05/23 17:30 Pantoprazole 40 Mg Tablet PO BID-W/MEALS DUR[facility] Ropinirole HCl 0.5 mg 05/05/23 21:00 Ropinirole Hcl 1 Mg Tab PO BID DURGA Intake and Output 05/04/23 05/05/23 05/05/23 22:59 06:59 14:59 Other: Weight 68.039 kg 05/04/23 17:25 05/04/23 19:32
[2023-05-05 11:04] LABS: Basophils # (A) 0.02 X 10*3/uL (0.00-0.10); Basophils % (A) 0.5 %; Eosinophils % (A) 5.1 %; HCT 35.5 % (37.2-46.3); HGB 11.2 g/dL (12.0-15.0); Lymphocytes # (A) 1.92 X 10*3/uL (0.90-5.00); MCH 28.9 pg (27.0-32.0); MCHC 31.5 g/dL (32.0-37.0); MCV 91.7 FL (80.0-97.0); Mean Platelet Volume 10.2 FL (9.5-12.2); Monocytes # (A) 0.22 X 10*3/uL (0.20-1.00); Monocytes % (A) 5.6 %; NRBC Per 100 WBC 0 X 10*3/uL (0.00-0.01); Neutrophils # (A) 1.55 X 10*3/uL (1.80-7.70); Neutrophils % (A) 39.5 %; Platelet Count 259 X 10*3/uL (140-440); RBC 3.87 X 10*6/uL (4.10-5.20); RDW 14.4 % (11.5-14.5); WBC 3.92 X 10*3/uL (4.50-10.00)
[2023-05-05 11:07] VITALS: BP 116/81
[2023-05-05 11:26] LABS: ALT 9 U/L (8-44); AST 9 U/L (13-35); Albumin 4.3 g/dL (3.8-4.9); Albumin/Globulin Ratio 1.54 Ratio (1.60-3.17); Alkaline Phosphatase 166 U/L (41-126); BUN/Creat Ratio 26.93 Ratio (12.00-20.00); Blood Urea Nitrogen 40.4 mg/dL (9.0-27.0); Calcium 9.4 mg/dL (8.7-10.3); Chloride 105 mmol/L (96-109); Globulin 2.8 g/dL (1.6-3.3); Glucose 191 mg/dL (70-110); Magnesium 2.1 mg/dL (1.5-2.4); Phosphorus 4.6 mg/dL (2.4-5.1); Potassium 4.7 mmol/L (3.5-5.5); Sodium 137 mmol/L (135-145); Total Bilirubin <0.2 mg/dL (0.3-1.2); Total Protein 7.1 g/dL (6.2-8.2)
[2023-05-05 12:08] VITALS: PULSE 84
[2023-05-05 12:28] LABS: Glucose,Whole Blood 371 mg/dL (70-110)
--- NOTE | 2023-05-05 13:00 | CT ---
EXAMINATION TYPE: CT chest angio for PE DATE OF EXAM: 05/05/2023 COMPARISON: 04/11/2023 HISTORY: SOB, elevated d-dimer CT DLP: 273.2 mGycm CONTRAST: CT chest with contrast and 3D reconstruction with MIP imaging is performed with IV Contrast, patient injected with 70cc mL of Isovue 370. Contrast-enhanced CT of the chest was performed through the course of the pulmonary arteries with tony g and mediastinal window settings submitted. 3D reconstruction with MIP imaging was also performed. PULMONARY ARTERIES: The pulmonary arteries and their major tributaries are patent. I do not see betsey dence for sizable filling defect to suggest pulmonary embolic process. LUNGS: The lungs are clear and free of infiltrate. Calcified granuloma left lower lobe. No evidence f or atelectasis. No pulmonary nodule or mass is detected. No pleural effusion. MEDIASTINUM: Thoracic aorta is of normal caliber.Calcified hilar mediastinal lymph nodes. No evidenc e for mediastinal mass. No mediastinal lymph nodes greater than 1cm. HILAR STRUCTURES: No evidence for mass. No hilar lymph nodes greater than 1 cm. UPPER ABDOMEN: No significant abnormality is seen. IMPRESSION: 1. No evidence for Pulmonary embolism at this time.
--- NOTE | 2023-05-05 13:02 | P.HPIM ---
History of Present Illness H&P Date: 05/05/23 History of present illness; patient is 63-year-old lady with past medical histo ry significant for coronary disease, diabetes mellitus, hypertension, hyperlipidemia, hypothyroidism presents to ER because of chest pain. Patient stated that this chest pain is similar to her previous episodes of heart attack. Chest pain is like a heaviness present on the central chest, radiating to her right arm, associated with shortness of breath. There is no aggravating or relieving factors associated with chest pain. Denies any sweating. Denies any palpitations. Denies any swelling of any extremity. Because of chest pain, patient came to the ER Initial lab work done in the ER showed WBC 5.4, hemoglobin 12, platelet count 258., Sodium 137, potassium 5.6, BUN 39, crit 1.33, troponin 0.012 EKG done in the ER heart rate 106, no ST segment elevation seen, T-wave inversion noticeable in leads V4 V5 and V6. Chest x-ray done in the ER showed no acute cardiopulmonary process Patient admitted to medicine service REVIEW OF SYSTEMS: CONSTITUTIONAL: No fever, no malaise, no fatigue. HEENT: No recent visual problems or hearing problems. Denied any sore throat. CARDIOVASCULAR: As mentioned in HPI PULMONARY: No shortness of breath, no cough, no hemoptysis. GASTROINTESTINAL: No diarrhea, no nausea, no vomiting, no abdominal pain. NEUROLOGICAL: No headaches, no weakness, no numbness. HEMATOLOGICAL: Denies any bleeding or petechiae. GENITOURINARY: Denies any burning micturition, frequency, or urgency. MUSCULOSKELETAL/RHEUMATOLOGICAL: Denies any joint pain, swelling, or any muscle pain. ENDOCRINE: Denies any polyuria or polydipsia. The rest of the 14-point review of systems is negative. PHYSICAL EXAMINATION: GENERAL: The patient is alert and oriented x3, not in any acute distress. Well developed, well nourished. HEENT: Pupils are round and equally reacting to light. EOMI. No scleral icterus. No conjunctival pallor. Normocephalic, atraumatic. No pharyngeal erythema. No thyromegaly. CARDIOVASCULAR: S1 and S2 present. No murmurs, rubs, or gallops. PULMONARY: Chest is clear to auscultation, no wheezing or crackles. ABDOMEN: Soft, nontender, nondistended, normoactive bowel sounds. No palpable organomegaly. MUSCULOSKELETAL: No joint swelling or deformity. EXTREMITIES: No cyanosis, clubbing, or pedal edema. NEUROLOGICAL: Gross neurological examination did not reveal any focal deficits. SKIN: No rashes. Assessment and plan Chest pain rule out acute cord syndrome Hypertension Hypothyroidism GERD Insulin-dependent diabetes mellitus Depression Restless leg syndrome Monitor vital signs Monitor CBC Monitor CMP Continue telemetry monitoring Trend troponins. Ordered d-dimer Resume home meds Consult cardiology Labs and medication were reviewed.. Continue same treatment. Continue with symptomatic treatment. Resume home medication. Monitor labs and vitals. DVT and GI prophylaxis. Further recommendations as per clinical course of the maricel ent Dictation was produced using [employer] dictation software. please excuse any grammatical, word or spelling errors. Past Medical History Past Medical History: Coronary Artery Disease (CAD), Cancer, COPD, CVA/TIA, Diabetes Mellitus, Deep Vein Thrombosis (DVT), Eye Disorder, GERD/Reflux, Hyperlipidemia, Hypertension, Myocardial Infarction ([place]), Renal Disease, Rheumatoid Arthritis (RA), Sleep Apnea/CPAP/BIPAP, Syncope, Thyroid Disorder Additional Past Medical History / Comment(s): 09/16/16 with SBO with surgery/possible septic emboli with cavitary lesions bilateral lungs. 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 coli Nov2015 requiring PICC line insertion for IV antibiotics, restless leg syndrome, peripheral neuropathy. Hx bilateral glaucoma, hx syncope r/t low blood sugars. No CPAP use. pt states had high blood sugar 1 week ago and was seen an [facility]. Last Myocardial Infarction Date:: 2019 History of Any Multi-Drug Resistant Organisms: ESBL, MRSA, VRE Date of last positivie culture/infection: 05/07/16 ESBL, 05/15/16 VRE, MRSA 09/2017 - upper lip MDRO Source:: URINE E.COLI, EC GALLINARUM Past Surgical History: Appendectomy, Bowel Resection, Section, Heart Ca theterization, Heart Catheterization With Stent, Hernia Repair Additional Past Surgical History / Comment(s): 09/30 exploratory laparotomy with lysis of adhesions, bowel resection d/t obstruction. repair incarcerated incisional hernia with abdominal washout, thyroidectomy(non functioning), heart cath 06/28 - 100% occluded, unable to stent, partial left nephrectomy for left [place] renal cell carcinoma, PICC line insertion (since removed), colonoscopy, bilateral cataract removal with lens implants, 2 Sections. cardiac Stent 03/2021 Past Anesthesia/Blood Transfusion Reactions: No Reported Reaction Date of Last Stent Placement:: 04/06/2021 Past Psychological History: Depression Smoking Status: Current some day smoker Past Alcohol Use History: None Reported Past Drug Use History: Marijuana - Past Family History Sister(s) Family Medical History: Cancer, Deep Vein Thrombosis (DVT) Additional Family Medical History / Comment(s): Patient has one sister that from liver cancer. Brother(s) Family Medical History: Cancer, Deep Vein Thrombosis (DVT) Additional Family Medical History / Comment(s): Patient has 1 brother with past ETOH, past drug abuse, DVTs. She has a second brother that has from throat cancer. Daughter(s) Family Medical History: Diabetes Mellitus, Myocardial Infarction ([place]) Additional Family Medical History / Comment(s): Daughter at 23 yrs old from massive [place]. Father Family Medical History: Myocardial Infarction ([place]) Additional Family Medical History / Comment(s): from [place] at age 44 Mother Family Medical History: Cancer Additional Family Medical History / Comment(s): B/L breast cancer Medications and Allergies Home Medications Medication Instructions Recorded Confirmed Type Venlafaxine HCl [Effexor XR] 225 mg PO DAILY 10/21/16 05/04/23 History Pantoprazole Sodium [Protonix] 40 mg PO BID 04/06/20 05/04/23 History Meclizine [Antivert] 25 mg PO TID PRN 01/16/21 05/04/23 History Ferrous Sulfate [Iron (65 MG 325 mg PO DAILY 10/02/21 05/04/23 History Elemental)] Cetirizine HCl [Zyrtec] 10 mg PO DAILY 07/15/22 05/04/23 History Cholecalciferol [Vitamin D3 (125 125 mcg PO TID 07/15/22 05/04/23 History Mcg = 5000 Iu)] Gabapentin 300 mg PO TID 07/15/22 05/04/23 History Glucagon [Baqsimi] 1 spray NASAL DIRECTED PRN 07/15/22 05/04/23 History Ipratropium-Albuterol Nebulize 3 ml INHALATION RT-QID PRN 07/15/22 05/04/23 History [Duoneb 0.5 mg-3 mg/3 ml Soln] Levothyroxine Sodium [Synthroid] 50 mcg PO DAILY 07/15/22 05/04/23 History Levothyroxine Sodium [Synthroid] 200 mcg PO DAILY 07/15/22 05/04/23 History Magnesium Oxide [Mag-Ox] 400 mg PO DAILY 07/15/22 05/04/23 History Multivitamins, Thera [Multivitamin 1 tab PO DAILY 07/15/22 05/04/23 History (formulary)] Acetaminophen Tab [Tylenol] 650 mg PO Q6HR PRN tab 09/04/22 05/04/23 Rx Aspirin EC [Ecotrin Low Dose] 81 mg PO DAILY 10/03/22 05/04/23 History Butalb/APAP/Caff 50-325-40Mg 1 tab PO BID PRN 10/03/22 05/04/23 History [Fioricet 50-325-40] rOPINIRole HCL [Requip] 0.5 mg PO BID 10/03/22 05/04/23 History Loperamide [Imodium] 2 mg PO TID PRN #21 capsule 10/07/22 05/04/23 Rx HYDROcodone/APAP 7.5-325MG [[place] 1 tab PO BID PRN 01/05/23 05/04/23 History 7.5-325] Rosuvastatin Calcium [Crestor] 40 mg PO HS 01/05/23 05/04/23 History Metoclopramide HCl [Reglan] 5 mg PO TID PRN #30 tablet 01/07/23 05/04/23 Rx Ondansetron Odt [Zofran ODT] 4 mg PO Q8HR PRN #10 tab 01/07/23 05/04/23 Rx INSULIN LISPRO (For Pump) [humaLOG 0.01 units SQ-PUMP CONTINUOUS 04/10/23 05/04/23 History (For Pump)] Isosorbide Mononitrate ER [Imdur] 30 mg PO DAILY 04/10/23 05/04/23 History Mirtazapine 7.5 mg PO HS 04/10/23 05/04/23 History Metoprolol Succinate (ER) [Toprol 25 mg PO DAILY 30 Days #30 tab 04/12/23 05/04/23 Rx XL] Amoxic-Pot Clav 875-125Mg 1 tab PO Q12HR 05/04/23 05/04/23 History [Augmentin 875-125] Fluconazole 150 mg PO ONCE PRN 05/04/23 05/04/23 History Allergies Allergy/AdvReac Type Severity Reaction Status Date / Time grass pollen Allergy Unknown Verified 05/04/23 20:00 latex Allergy Rash/Hives Verified 05/04/23 20:00 Sulfa (Sulfonamide Allergy Rash/Hives/ Verified 05/04/23 20:00 Antibiotics) Swelling venom-honey bee Allergy Anaphylaxis Verified 05/04/23 20:00 prochlorperazine edisylate AdvReac Vomiting Verified 05/04/23 20:00 [From Compazine] Physical Exam Vitals: Vital Signs Temp Pulse Pulse Resp BP BP Pulse Ox 05/05/23 08:16 98.0 F 87 16 127/85 98 05/05/23 07:52 100 18 132/71 97 05/05/23 07:42 97 18 144/86 96 05/05/23 06:02 97.9 F 74 16 128/65 96 05/05/23 01:05 98.8 F 79 16 121/81 96 05/04/23 23:10 92 16 136/93 97 05/04/23 22:39 98 18 154/93 97 05/04/23 21:45 92 16 130/80 97 05/04/23 19:34 98.7 F 88 16 127/88 97 05/04/23 18:16 108 H 05/04/23 18:01 101 H 17 135/85 05/04/23 17:01 106 H 17 135/85 05/04/23 16:59 97.8 F 72 18 105/72 92 L Intake and Output 05/04/23 05/05/23 05/05/23 22:59 06:59 14:59 Other: Weight 68.039 kg Results CBC & Chem 7: 05/04/23 17:25 05/04/23 19:32 Labs: Abnormal Lab Results - Last 24 Hours (Table) 05/04/23 05/04/23 Range/Units 19:32 21:29 D-Dimer 0.91 H (<0.60) mg/L FEU Potassium 5.6 H (3.5-5.1) mmol/L Carbon Dioxide 16 L (22-30) mmol/L BUN 39 H (7-17) mg/dL Creatinine 1.33 H (0.52-1.04) mg/dL Glucose 244 H (74-99) mg/dL Alkaline Phosphatase 132 H (38-126) U/L
--- NOTE | 2023-05-05 13:05 | P.DS ---
Providers Date of admission: 05/04/23 19:14 Expected date of discharge: 05/05/23 Attending physician: Danielle Hill Consults: 05/04/23 19:14 Consult Physician Routine Consulting Provider: Mckenzie Cardoso Consult Reason/Comments: cp Do you want consulting provider notified?: Yes Primary care physician: Sahra Elder Hospital Course: Discharge diagnoses; Chest pain, acute coronary syndrome ruled out Hypertension Hypothyroidism GERD Insulin-dependent diabetes mellitus Depression Restless leg syndrome Hospital course; patient is 63-year-old lady with past medical history significant for coronary disease, diabetes mellitus, hypertension, hyperlipidemia, hypothyroidism presents to ER because of chest pain. Patient stated that this chest pain is similar to her previous episodes of heart attack. Chest pain is like a heaviness present on the central chest, radiating to her right arm, associated with shortness of breath. There is no aggravating or relieving factors associated with chest pain. Denies any sweating. Denies any palpitations. Denies any swelling of any extremity. Because of chest pain, patient came to t ER Initial lab work done in the ER showed WBC 5.4, hemoglobin 12, platelet count 258., Sodium 137, potassium 5.6, BUN 39, crit 1.33, troponin 0.012 EKG done in the ER heart rate 106, no ST segment elevation seen, T-wave inversion noticeable in leads V4 V5 and V6. Chest x-ray done in the ER showed no acute cardiopulmonary process Patient admitted to medicine service 05/05. Patient seen and examined. CTA chest was negative for PE. Cardiology evaluated the patient, recommended no ischemic workup. Being discharged in stable condition PHYSICAL EXAMINATION: GENERAL: The patient is alert and oriented x3, not in any acute distress. Well developed, well nourished. HEENT: Pupils are round and equally reacting to light. EOMI. No scleral icterus. No conjunctival pallor. Normocephalic, atraumatic. No pharyngeal erythema. No thyromegaly. CARDIOVASCULAR: S1 and S2 present. No murmurs, rubs, or gallops. PULMONARY: Chest is clear to auscultation, no wheezing or crackles. ABDOMEN: Soft, nontender, nondistended, normoactive bowel sounds. No palpable organomegaly. MUSCULOSKELETAL: No joint swelling or deformity. EXTREMITIES: No cyanosis, clubbing, or pedal edema. NEUROLOGICAL: Gross neurological examination did not reveal any focal deficits. SKIN: No rashes. Dictation was produced using [employer] dictation software. please excuse any grammatical, word or spelling errors. Patient Condition at Discharge: Stable Plan - Discharge Summary New Discharge Prescriptions: Continue Venlafaxine HCl [Effexor XR] 225 mg PO DAILY Pantoprazole Sodium [Protonix] 40 mg PO BID Meclizine [Antivert] 25 mg PO TID PRN PRN Reason: DIZZINESS Magnesium Oxide [Mag-Ox] 400 mg PO DAILY Levothyroxine Sodium [Synthroid] 200 mcg PO DAILY Levothyroxine Sodium [Synthroid] 50 mcg PO DAILY Cholecalciferol [Vitamin D3 (125 Mcg = 5000 Iu)] 125 mcg PO TID Cetirizine HCl [Zyrtec] 10 mg PO DAILY Acetaminophen Tab [Tylenol] 650 mg PO Q6HR PRN tab PRN Reason: Fever And/ Or Pain Aspirin EC [Ecotrin Low Dose] 81 mg PO DAILY HYDROcodone/APAP 7.5-325MG [Sullivan 7.5-325] 1 tab PO BID PRN PRN Reason: Pain Metoclopramide HCl [Reglan] 5 mg PO TID PRN #30 tablet PRN Reason: Nausea Ondansetron Odt [Zofran ODT] 4 mg PO Q8HR PRN #10 tab PRN Reason: Nausea Mirtazapine 7.5 mg PO HS Amoxic-Pot Clav 875-125Mg [Augmentin 875-125] 1 tab PO Q12HR Fluconazole 150 mg PO ONCE PRN PRN Reason: YEAST INFECTION Ferrous Sulfate [Iron (65 MG Elemental)] 325 mg PO DAILY Multivitamins, Thera [Multivitamin (formulary)] 1 tab PO DAILY Ipratropium-Albuterol Nebulize [Duoneb 0.5 mg-3 mg/3 ml Soln] 3 ml INHALATION RT-QID PRN PRN Reason: Shortness Of Breath Glucagon [Baqsimi] 1 spray NASAL DIRECTED PRN PRN Reason: Severe Hypoglycemia Gabapentin 300 mg PO TID Butalb/APAP/Caff 50-325-40Mg [Fioricet 50-325-40] 1 tab PO BID PRN PRN Reason: Migraine Headache rOPINIRole HCL [Requip] 0.5 mg PO BID Loperamide [Imodium] 2 mg PO TID PRN #21 capsule PRN Reason: Diarrhea Rosuvastatin Calcium [Crestor] 40 mg PO HS Isosorbide Mononitrate ER [Imdur] 30 mg PO DAILY INSULIN LISPRO (For Pump) [humaLOG (For Pump)] 0.01 units SQ-PUMP CONTINUOUS Metoprolol Succinate (ER) [Toprol XL] 25 mg PO DAILY 30 Days #30 tab Discharge Medication List Venlafaxine HCl [Effexor XR] 225 mg PO DAILY 10/21/16 [History] Pantoprazole Sodium [Protonix] 40 mg PO BID 04/06/20 [History] Meclizine [Antivert] 25 mg PO TID PRN 01/16/21 [History] Ferrous Sulfate [Iron (65 MG Elemental)] 325 mg PO DAILY 10/02/21 [History] Cetirizine HCl [Zyrtec] 10 mg PO DAILY 07/15/22 [History] Cholecalciferol [Vitamin D3 (125 Mcg = 5000 Iu)] 125 mcg PO TID 07/15/22 [History] Gabapentin 300 mg PO TID 07/15/22 [History] Glucagon [Baqsimi] 1 spray NASAL DIRECTED PRN 07/15/22 [History] Ipratropium-Albuterol Nebulize [Duoneb 0.5 mg-3 mg/3 ml Soln] 3 ml INHALATION RT-QID PRN 07/15/22 [History] Levothyroxine Sodium [Synthroid] 50 mcg PO DAILY 07/15/22 [History] Levothyroxine Sodium [Synthroid] 200 mcg PO DAILY 07/15/22 [History] Magnesium Oxide [Mag-Ox] 400 mg PO DAILY 07/15/22 [History] Multivitamins, Thera [Multivitamin (formulary)] 1 tab PO DAILY 07/15/22 [History] Acetaminophen Tab [Tylenol] 650 mg PO Q6HR PRN tab 09/04/22 [Rx] Aspirin EC [Ecotrin Low Dose] 81 mg PO DAILY 10/03/22 [History] Butalb/APAP/Caff 50-325-40Mg [Fioricet 50-325-40] 1 tab PO BID PRN 10/03/22 [History] rOPINIRole HCL [Requip] 0.5 mg PO BID 10/03/22 [History] Loperamide [Imodium] 2 mg PO TID PRN #21 capsule 10/07/22 [Rx] HYDROcodone/APAP 7.5-325MG [Sullivan 7.5-325] 1 tab PO BID PRN 01/05/23 [History] Rosuvastatin Calcium [Crestor] 40 mg PO HS 01/05/23 [History] Metoclopramide HCl [Reglan] 5 mg PO TID PRN #30 tablet 01/07/23 [Rx] Ondansetron Odt [Zofran ODT] 4 mg PO Q8HR PRN #10 tab 01/07/23 [Rx] INSULIN LISPRO (For Pump) [humaLOG (For Pump)] 0.01 units SQ-PUMP CONTINUOUS 04/10/23 [History] Isosorbide Mononitrate ER [Imdur] 30 mg PO DAILY 04/10/23 [History] Mirtazapine 7.5 mg PO HS 04/10/23 [History] Metoprolol Succinate (ER) [Toprol XL] 25 mg PO DAILY 30 Days #30 tab 04/12/23 [Rx] Amoxic-Pot Clav 875-125Mg [Augmentin 875-125] 1 tab PO Q12HR 05/04/23 [History] Fluconazole 150 mg PO ONCE PRN 05/04/23 [History] Follow up Appointment(s)/Referral(s): Sahra Elder MD [Primary Care Provider] - 1-2 days Germán Sierra MD [STAFF PHYSICIAN] - 1 Week Discharge Disposition: HOME SELF-CARE
[2023-05-05] MEDS ORDERED: GABAPENTIN 300 MG CAP PO SCH (16:00)
[2023-05-05] MEDS ORDERED: CHOLECALCIFEROL 125 MCG (5000 IU) TABLET PO SCH (16:00)
[2023-05-05] MEDS ORDERED: PANTOPRAZOLE 40 MG TABLET PO SCH (17:30)
[2023-05-05] MEDS ORDERED: MIRTAZAPINE 15 MG TAB PO SCH (21:00)
[2023-05-05] MEDS ORDERED: ATORVASTATIN 80 MG TAB PO SCH (21:00)
[2023-05-06] MEDS ORDERED: MAGNESIUM OXIDE 400 MG TAB PO SCH (09:00)
[2023-05-06] MEDS ORDERED: VENLAFAXINE HCL ER 75 MG CAP PO SCH (09:00)
[2023-05-06] MEDS ORDERED: LORATADINE 10 MG TAB PO SCH (09:00)
== END 2023-05-05 16:05 | disposition home or self-care (01) ==
LOC: EC 16:48 → 6NMEDSUR 19:14
PROVIDERS: ADMIT Hospitalist; ATTEND Hospitalist
DX: R07.89 Other chest pain (principal); K21.9 Gastro-esophageal reflux disease without esophagitis; E78.5 Hyperlipidemia, unspecified; I10 Essential (primary) hypertension; G47.30 Sleep apnea, unspecified; E11.42 Type 2 diabetes mellitus with diabetic polyneuropathy; I25.10 Atherosclerotic heart disease of native coronary artery without angina pectoris; J44.9 Chronic obstructive pulmonary disease, unspecified; E89.0 Postprocedural hypothyroidism; I25.2 Old myocardial infarction; F32.A Depression, unspecified; R79.89 Other specified abnormal findings of blood chemistry; G25.81 Restless legs syndrome; F17.200 Nicotine dependence, unspecified, uncomplicated; Z85.528 Personal history of other malignant neoplasm of kidney; Z86.718 Personal history of other venous thrombosis and embolism; Z86.73 Personal history of transient ischemic attack (TIA), and cerebral infarction without residual deficits; Z90.5 Acquired absence of kidney; Z95.5 Presence of coronary angioplasty implant and graft; Z79.899 Other long term (current) drug therapy; Z79.890 Hormone replacement therapy; Z79.82 Long term (current) use of aspirin; Z79.4 Long term (current) use of insulin; Z96.41 Presence of insulin pump (external) (internal); Z91.040 Latex allergy status; Z88.2 Allergy status to sulfonamides
CPT/HCPCS: 96376; 96374; 99285; 36415; 94640; 93005; 85379; 83880; 80053 ×2; 83690; 83735 ×2; 84100; 84484 ×2; 85025 ×2; 85610; 85730; 71045; 71275; G0378 ×2; J2270 ×2; Q9967

== ENCOUNTER 2023-05-16 12:49 | Inpatient (IN) | payer OTHER ==
[2023-05-16] MEDS ORDERED: ONDANSETRON 4 MG/2 ML VIAL IVP STA (13:57)
--- NOTE | 2023-05-16 14:08 | XR ---
EXAMINATION TYPE: XR chest 2V DATE OF EXAM: 05/16/2023 COMPARISON: NONE HISTORY: Dyspnea. TECHNIQUE: Frontal and lateral views of the chest are obtained. FINDINGS: 05/04/2023. IMPRESSION: Calcific granulomas seen within the left lower lobe. The lungs otherwise appear clear. The cardiac silhouette and pulmonary vessels are within normal limits.
--- NOTE | 2023-05-16 14:42 | ED ---
SOB HPI <Guerrero Fontenot - Last Filed: 05/16/23 20:26> - General Source: patient Mode of arrival: ambulatory Limitations: no limitations <Angelica Mcguire - Last Filed: 05/16/23 23:54> - General Chief Complaint: Shortness of Breath Stated Complaint: SOB Time Seen by Provider: 05/16/23 13:00 - History of Present Illness Initial Comments: 63-year-old female past history of coronary artery disease, COPD, CVA, DVT who presents emergency Department reporting shortness of rest and right-sided back/leg pain. States that today she began feeling short of breath. She did to nebulizer treatments at home without any improvement in her symptoms. Admits to a productive cough with green sputum. Admits chills without fevers. No sick contacts. Admits to some mild chest discomfort. States that after her recent hospitalization she fell at home onto her right hip. Since then she has been having right hip and low back pain. Patient has history of DVT. Currently takes an aspirin. Denies any calf pain or swelling. Does admit to some generalized nausea. EMS gave the patient a breathing treatment en route to the hospital. No other alleviating, precipitating or modifying factors (Angelica Mcguire) - Related Data Home Medications Medication Instructions Recorded Confirmed Venlafaxine HCl [Effexor XR] 225 mg PO DAILY 10/21/16 05/16/23 Pantoprazole Sodium [Protonix] 40 mg PO BID 04/06/20 05/16/23 Meclizine [Antivert] 25 mg PO TID PRN 01/16/21 05/16/23 Ferrous Sulfate [Iron (65 MG 325 mg PO DAILY 10/02/21 05/16/23 Elemental)] Cetirizine HCl [Zyrtec] 10 mg PO DAILY 07/15/22 05/16/23 Cholecalciferol [Vitamin D3 (125 125 mcg PO TID 07/15/22 05/16/23 Mcg = 5000 Iu)] Gabapentin 300 mg PO TID 07/15/22 05/16/23 Glucagon [Baqsimi] 1 spray NASAL DIRECTED PRN 07/15/22 05/16/23 Ipratropium-Albuterol Nebulize 3 ml INHALATION RT-QID PRN 07/15/22 05/16/23 [Duoneb 0.5 mg-3 mg/3 ml Soln] Levothyroxine Sodium [Synthroid] 50 mcg PO DAILY 07/15/22 05/16/23 Levothyroxine Sodium [Synthroid] 200 mcg PO DAILY 07/15/22 05/16/23 Magnesium Oxide [Mag-Ox] 400 mg PO DAILY 07/15/22 05/16/23 Multivitamins, Thera [Multivitamin 1 tab PO DAILY 07/15/22 05/16/23 (formulary)] Aspirin EC [Ecotrin Low Dose] 81 mg PO DAILY 10/03/22 05/16/23 Butalb/APAP/Caff 50-325-40Mg 1 tab PO BID PRN 10/03/22 05/16/23 [Fioricet 50-325-40] rOPINIRole HCL [Requip] 0.5 mg PO BID 10/03/22 05/16/23 HYDROcodone/APAP 7.5-325MG [[place] 1 tab PO BID PRN 01/05/23 05/16/23 7.5-325] Rosuvastatin Calcium [Crestor] 40 mg PO HS 01/05/23 05/16/23 INSULIN LISPRO (For Pump) [humaLOG 0.01 units SQ-PUMP CONTINUOUS 04/10/2305/16 (For Pump)] Isosorbide Mononitrate ER [Imdur] 30 mg PO DAILY 04/10/23 05/16/23 Mirtazapine 7.5 mg PO HS 04/10/23 05/16/23 Fluconazole 150 mg PO ONCE PRN 05/04/23 05/16/23 Metoprolol Succinate (ER) [Toprol 25 mg PO HS 05/16/23 05/16/23 XL] Previous Rx's Medication Instructions Recorded Acetaminophen Tab [Tylenol] 650 mg PO Q6HR PRN tab 09/04/22 Loperamide [Imodium] 2 mg PO TID PRN #21 capsule 10/07/22 Metoclopramide HCl [Reglan] 5 mg PO TID PRN #30 tablet 01/07/23 Ondansetron Odt [Zofran ODT] 4 mg PO Q8HR PRN #10 tab 01/07/23 Allergies Allergy/AdvReac Type Severity Reaction Status Date / Time grass pollen Allergy Unknown Verified 12/01/23 19:21 latex Allergy Rash/Hives Verified 05/16/23 19:21 Sulfa (Sulfonamide Allergy Rash/Hives/ Verified 05/16/23 19:21 Antibiotics) Swelling venom-honey bee Allergy Anaphylaxis Verified 05/16/23 19:21 prochlorperazine edisylate AdvReac Vomiting Verified 05/16/23 19:21 [From Compazine] Review of Systems ROS Other: All systems not noted in ROS Statement are negative. <Guererro Fontenot - Last Filed: 05/16/23 20:26> ROS Other: All systems not noted in ROS Statement are negative. <Angelica Mcguire - Last Filed: 05/16/23 23:54> ROS Statement: Those systems with pertinent positive or pertinent negative responses have been documented in the HPI. Past Medical History Past Medical History: Coronary Artery Disease (CAD), Cancer, COPD, CVA/TIA, Diabetes Mellitus, Deep Vein Thrombosis (DVT), Eye Disorder, GERD/Reflux, Hyperlipidemia, Hypertension, Myocardial Infarction (OR), Renal Disease, Rheumatoid Arthritis (RA), Sleep Apnea/CPAP/BIPAP, Syncope, Thyroid Disorder Additional Past Medical History / Comment(s): 09/16/16 with SBO with surgery/possible septic emboli with cavitary lesions bilateral lungs. 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 coli Nov2015 requiring PICC line insertion for IV antibiotics, restless leg syndrome, peripheral neuropathy. Hx bilateral glaucoma, hx syncope r/t low blood sugars. No CPAP use. pt states had high blood sugar 1 week ago and was seen an [facility]. Last Myocardial Infarction Date:: 2019 History of Any Multi-Drug Resistant Organisms: ESBL, MRSA, VRE Date of last positivie culture/infection: 05/07/16 ESBL, 05/15/16 VRE, MRSA 09/2017 - upper lip MDRO Source:: URINE E.COLI, EC GALLINARUM Past Surgical History: Appendectomy, Bowel Resection, Section, Heart Catheterization, Heart Catheterization With Stent, Hernia Repair Additional Past Surgical History / Comment(s): 09/30 exploratory laparotomy with lysis of adhesions, bowel resection d/t obstruction. repair incarcerated incisional hernia with abdominal washout, thyroidectomy(non functioning), heart cath 06/28 - 100% occluded, unable to stent, partial left nephrectomy for left kidney renal cell carcinoma, PICC line insertion (since removed), colonoscopy, bilateral cataract removal with lens implants, 2 Sections. cardiac Stent 03/2021 Past Anesthesia/Blood Transfusion Reactions: No Reported Reaction Date of Last Stent Placement:: 04/06/2021 Past Psychological History: Depression Smoking Status: Current some day smoker Past Alcohol Use History: None Reported Past Drug Use History: Marijuana - Past Family History Sister(s) Family Medical History: Cancer, Deep Vein Thrombosis (DVT) Additional Family Medical History / Comment(s): Patient has one sister that from liver cancer. Brother(s) Family Medical History: Cancer, Deep Vein Thrombosis (DVT) Additional Family Medical History / Comment(s): Patient has 1 brother with past ETOH, past drug abuse, DVTs. She has a second brother that has from throat cancer. Daughter(s) Family Medical History: Diabetes Mellitus, Myocardial Infarction (OR) Additional Family Medical History / Comment(s): Daughter at 23 yrs old from massive OR. Father Family Medical History: Myocardial Infarction (OR) Additional Family Medical History / Comment(s): from OR at age 44 Mother Family Medical History: Cancer Additional Family Medical History / Comment(s): B/L breast cancer <Angelica Mcguire A - Last Filed: 05/16/23 23:54> General Exam Limitations: no limitations General appearance: alert, in no apparent distress Head exam: Present: atraumatic, normocephalic, normal inspection Eye exam: Present: normal appearance, PERRL, EOMI. Absent: scleral icterus, conjunctival injection, periorbital swelling ENT exam: Present: normal exam, mucous membranes moist Neck exam: Present: normal inspection. Absent: tenderness, meningismus, lymphadenopathy Respiratory exam: Present: decreased breath sounds. Absent: respiratory distress, wheezes, rales, rhonchi, stridor Cardiovascular Exam: Present: regular rate, normal rhythm, normal heart sounds. Absent: systolic murmur, diastolic murmur, rubs, gallop, clicks GI/Abdominal exam: Present: soft, normal bowel sounds. Absent: distended, tend erness, guarding, rebound, rigid Extremities exam: Present: normal inspection, full ROM, normal capillary refill. Absent: tenderness, pedal edema, joint swelling, calf tenderness Back exam: Present: paraspinal tenderness (Right lumbar region into the right hip) Neurological exam: Present: alert, oriented X3, CN II-XII intact Psychiatric exam: Present: normal affect, normal mood Skin exam: Present: warm, dry, intact, normal color. Absent: rash <Angelica Mcguire - Last Filed: 05/16/23 23:54> Course Vital Signs 05/16/23 05/16/23 05/16/23 12:51 17:53 17:54 Temperature 98.9 F Pulse Rate 82 91 Respiratory 16 18 18 Rate Blood Pressure 114/51 130/70 O2 Sat by Pulse 96 96 Oximetry 05/16/23 22:00 Temperature Pulse Rate 93 Respiratory 18 Rate Blood Pressure 108/67 O2 Sat by Pulse 96 Oximetry Medical Decision Making - Lab Data Result diagrams: 05/16/23 15:45 05/16/23 15:45 - EKG Data -: EKG Interpreted by Ne EKG shows normal: sinus rhythm, axis (Normal), intervals (Normal) Rate: normal (Rate 90 bpm) Interpretation: LVH, other (Old septal OR.) <Guerrero Fontenot - Last Filed: 05/16/23 20:26> - Lab Data Result diagrams: 05/16/23 15:45 05/16/23 23:00 <Angelica Mcguire - Last Filed: 05/16/23 23:54> - Medical Decision Making Was pt. sent in by a medical professional or institution (, PA, [employer]TER, urgent care, hospital, or [facility]...) When possible be specific @ -No Did you speak to anyone other than the patient for history (EMS, parent, family, police, friend...)? What history was obtained from this source @ -No Did you review nursing and triage notes (agree or disagree)? Why? @ -I reviewed and agree with nursing and triage notes Were old charts reviewed (outside hosp., previous admission, EMS record, old EKG, old radiological studies, urgent care reports/EKG's, [facility] records)? Report findings @ -Review discharge summary from May 05 Differential Diagnosis (chest pain, altered mental status, abdominal pain women, abdominal pain men, vaginal bleeding, weakness, fever, dyspnea, syncope, headache, dizziness, GI bleed, back pain, seizure, CVA, palpatations, mental health, musculoskeletal)? @ -Differential Dyspnea: Coronary syndrome, arrhythmia, tamponade, asthma, COPD, pulmonary embolism, pneumonia, pneumothorax, pulmonary effusion, anaphylaxis, diabetic ketoacidosis, flailed chest, pulmonary contusion, diaphragmatic rupture, anemia, neuromuscular, this is not meant to be an all-inclusive list. EKG interpreted by me (3pts min.). @ -Pending X-rays interpreted by me (1pt min.). @ -None done CT interpreted by me (1pt min.). @ -Pending U/S interpreted by me (1pt. min.). @ -None done What testing was considered but not performed or refused? (CT, X-rays, U/S, labs)? Why? @ -None What meds were considered but not given or refused? Why? @ -None Did you discuss the management of the patient with other professionals (professionals i.e. , PA, [employer], lab, RT, psych nurse, social services director, fish cutting machine operator, teacher, special weapons and tactics officer, bilingual case manager)? Give summary @ -Spoke with Dr. Ruelas, oncoming physician in regard to the patient's care Was smoking cessation discussed for >3mins.? @ -No Was critical care preformed (if so, how long)? @ -No Were there social determinants of health that impacted care today? How? (Homelessness, low income, unemployed, alcoholism, drug addiction, transportation, low edu. Level, literacy, decrease access to med. care, fdc, rehab)? @ -No Was there de-escalation of care discussed even if they declined (Discuss DNR or withdrawal of care, Hospice)? DNR status @ -No What co-morbidities impacted this encounter? (DM, HTN, Smoking, COPD, CAD, Cancer, CVA, ARF, Chemo, Hep., AIDS, mental health diagnosis, sleep apnea, morbid obesity)? @ -COPD, coronary artery disease, DVT Was patient admitted / discharged? Hospital course, mention meds given and route, prescriptions, significant lab abnormalities, going to OR and other pertinent info. @ -Pending. Patient is currently pending laboratory studies and imaging Undiagnosed new problem with uncertain prognosis? @ -Yes Drug Therapy requiring intensive monitoring for toxicity (Heparin, Nitro, Insulin, Cardizem)? @ -No Were any procedures done? @ -No Diagnosis/symptom? @ -Acute right low back pain, acute respiratory insufficiency Acute, or Chronic, or Acute on Chronic? @ -acute Uncomplicated (without systemic symptoms) or Complicated (systemic symptoms)? @ -complicated Side effects of treatment? @ -No Exacerbation, Progression, or Severe Exacerbation? @ -No Poses a threat to life or bodily function? How? (Chest pain, USA, OR, pneumonia, PE, COPD, DKA, ARF, appy, cholecystitis, CVA, Diverticulitis, Homicidal, Suicidal, threat to staff... and all critical care pts) @ -No (Angelica Mcguire) - Lab Data Lab Results 05/16/23 05/16/23 05/16/23 Range/Units 15:45 15:45 15:45 WBC 6.8 (3.8-10.6) k/uL RBC 3.81 (3.80-5.40) m/uL Hgb 11.4 (11.4-16.0) gm/dL Hct 38.0 (34.0-46.0) % MCV 99.8 D (80.0-100.0) fL MCH 29.9 (25.0-35.0) pg MCHC 30.0 L (31.0-37.0) g/dL RDW 14.0 (11.5-15.5) % Plt Count 198 (150-450) k/uL MPV 8.4 Neutrophils % 84 % Lymphocytes % 11 % Monocytes % 3 % Eosinophils % 1 % Basophils % 1 % Neutrophils # 5.8 (1.3-7.7) k/uL Lymphocytes # 0.7 L (1.0-4.8) k/uL Monocytes # 0.2 (0-1.0) k/uL Eosinophils # 0.1 (0-0.7) k/uL Basophils # 0.0 (0-0.2) k/uL Hypochromasia Marked PT (10.0-12.5) sec INR (<1.2) APTT (22.0-30.0) sec Sodium 117 L* (137-145) mmol/L Potassium 6.5 H* (3.5-5.1) mmol/L Chloride 85 L (98-107) mmol/L Carbon Dioxide 18 L (22-30) mmol/L Anion Gap 14 mmol/L BUN 42 H (7-17) mg/dL Creatinine 2.34 H (0.52-1.04) mg/dL Est GFR (CKD-EPI)AfAm 25 (>60 ml/min/1.73 sqM) Est GFR (CKD-EPI)NonAf 22 (>60 ml/min/1.73 sqM) Glucose 1221 H* (74-99) mg/dL POC Glucose (mg/dL) (70-110) mg/dL POC Glu [employer] ID Lactic Ac Sepsis Rflx Plasma Lactic Acid Ab 2.4 H* (0.7-2.0) mmol/L Calcium 8.3 L (8.4-10.2) mg/dL Total Bilirubin 0.5 (0.2-1.3) mg/dL AST 19 (14-36) U/L ALT 18 (4-34) U/L Alkaline Phosphatase 198 H (38-126) U/L Troponin I (0.000-0.034) ng/mL NT-Pro-B Natriuret Pep 2250 pg/mL Total Protein 6.8 (6.3-8.2) g/dL Albumin 4.2 (3.5-5.0) g/dL Acetone, Qual (Negative) 05/16/23 05/16/23 05/16/23 Range/Units 15:45 16:33 17:23 WBC (3.8-10.6) k/uL RBC (3.80-5.40) m/uL Hgb (11.4-16.0) gm/dL Hct (34.0-46.0) % MCV (80.0-100.0) fL MCH (25.0-35.0) pg MCHC (31.0-37.0) g/dL RDW (11.5-15.5) % Plt Count (150-450) k/uL MPV Neutrophils % % Lymphocytes % % Monocytes % % Eosinophils % % Basophils % % Neutrophils # (1.3-7.7) k/uL Lymphocytes # (1.0-4.8) k/uL Monocytes # (0-1.0) k/uL Eosinophils # (0-0.7) k/uL Basophils # (0-0.2) k/uL Hypochromasia PT (10.0-12.5) sec INR (<1.2) APTT (22.0-30.0) sec Sodium (137-145) mmol/L Potassium (3.5-5.1) mmol/L Chloride (98-107) mmol/L Carbon Dioxide (22-30) mmol/L Anion Gap mmol/L BUN (7-17) mg/dL Creatinine (0.52-1.04) mg/dL Est GFR (CKD-EPI)AfAm (>60 ml/min/1.73 sqM) Est GFR (CKD-EPI)NonAf (>60 ml/min/1.73 sqM) Glucose (74-99) mg/dL POC Glucose (mg/dL) >600 H (70-110) mg/dL POC Glu [employer] ID Pia Shannon Lactic Ac Sepsis Rflx Y Plasma Lactic Acid Ab (0.7-2.0) mmol/L Calcium (8.4-10.2) mg/dL Total Bilirubin (0.2-1.3) mg/dL AST (14-36) U/L ALT (4-34) U/L Alkaline Phosphatase (38-126) U/L Troponin I <0.012 (0.000-0.034) ng/mL NT-Pro-B Natriuret Pep pg/mL Total Protein (6.3-8.2) g/dL Albumin (3.5-5.0) g/dL Acetone, Qual (Negative) 05/16/23 05/16/23 05/16/23 Range/Units 17:26 17:26 18:08 WBC (3.8-10.6) k/uL RBC (3.80-5.40) m/uL Hgb (11.4-16.0) gm/dL Hct (34.0-46.0) % MCV (80.0-100.0) fL MCH (25.0-35.0) pg MCHC (31.0-37.0) g/dL RDW (11.5-15.5) % Plt Count (150-450) k/uL MPV Neutrophils % % Lymphocytes % % Monocytes % % Eosinophils % % Basophils % % Neutrophils # (1.3-7.7) k/uL Lymphocytes # (1.0-4.8) k/uL Monocytes # (0-1.0) k/uL Eosinophils # (0-0.7) k/uL Basophils # (0-0.2) k/uL Hypochromasia PT 10.3 (10.0-12.5) sec INR 0.9 (<1.2) APTT 19.2 L (22.0-30.0) sec Sodium (137-145) mmol/L Potassium (3.5-5.1) mmol/L Chloride (98-107) mmol/L Carbon Dioxide (22-30) mmol/L Anion Gap mmol/L BUN (7-17) mg/dL Creatinine (0.52-1.04) mg/dL Est GFR (CKD-EPI)AfAm (>60 ml/min/1.73 sqM) Est GFR (CKD-EPI)NonAf (>60 ml/min/1.73 sqM) Glucose (74-99) mg/dL POC Glucose (mg/dL) >600 H (70-110) mg/dL POC Glu [employer] ID Cory Benz Lactic Ac Sepsis Rflx Plasma Lactic Acid Ab (0.7-2.0) mmol/L Calcium (8.4-10.2) mg/dL Total Bilirubin (0.2-1.3) mg/dL AST (14-36) U/L ALT (4-34) U/L Alkaline Phosphatase (38-126) U/L Troponin I (0.000-0.034) ng/mL NT-Pro-B Natriuret Pep pg/mL Total Protein (6.3-8.2) g/dL Albumin (3.5-5.0) g/dL Acetone, Qual Negative (Negative) 05/16/23 05/16/23 05/16/23 Range/Units 19:00 19:05 19:37 WBC (3.8-10.6) k/uL RBC (3.80-5.40) m/uL Hgb (11.4-16.0) gm/dL Hct (34.0-46.0) % MCV (80.0-100.0) fL MCH (25.0-35.0) pg MCHC (31.0-37.0) g/dL RDW (11.5-15.5) % Plt Count (150-450) k/uL MPV Neutrophils % % Lymphocytes % % Monocytes % % Eosinophils % % Basophils % % Neutrophils # (1.3-7.7) k/uL Lymphocytes # (1.0-4.8) k/uL Monocytes # (0-1.0) k/uL Eosinophils # (0-0.7) k/uL Basophils # (0-0.2) k/uL Hypochromasia PT (10.0-12.5) sec INR (<1.2) APTT (22.0-30.0) sec Sodium (137-145) mmol/L Potassium (3.5-5.1) mmol/L Chloride (98-107) mmol/L Carbon Dioxide (22-30) mmol/L Anion Gap mmol/L BUN (7-17) mg/dL Creatinine (0.52-1.04) mg/dL Est GFR (CKD-EPI)AfAm (>60 ml/min/1.73 sqM) Est GFR (CKD-EPI)NonAf (>60 ml/min/1.73 sqM) Glucose (74-99) mg/dL POC Glucose (mg/dL) >600 H (70-110) mg/dL POC Glu [employer] ID Jenny, Tremaine Lactic Ac Sepsis Rflx Y Plasma Lactic Acid Ab 4.7 H* (0.7-2.0) mmol/L Calcium (8.4-10.2) mg/dL Total Bilirubin (0.2-1.3) mg/dL AST (14-36) U/L ALT (4-34) U/L Alkaline Phosphatase (38-126) U/L Troponin I (0.000-0.034) ng/mL NT-Pro-B Natriuret Pep pg/mL Total Protein (6.3-8.2) g/dL Albumin (3.5-5.0) g/dL Acetone, Qual (Negative) 05/16/23 05/16/23 Range/Units 20:22 21:22 WBC (3.8-10.6) k/uL RBC (3.80-5.40) m/uL Hgb (11.4-16.0) gm/dL Hct (34.0-46.0) % MCV (80.0-100.0) fL MCH (25.0-35.0) pg MCHC (31.0-37.0) g/dL RDW (11.5-15.5) % Plt Count (150-450) k/uL MPV Neutrophils % % Lymphocytes % % Monocytes % % Eosinophils % % Basophils % % Neutrophils # (1.3-7.7) k/uL Lymphocytes # (1.0-4.8) k/uL Monocytes # (0-1.0) k/uL Eosinophils # (0-0.7) k/uL Basophils # (0-0.2) k/uL Hypochromasia PT (10.0-12.5) sec INR (<1.2) APTT (22.0-30.0) sec Sodium (137-145) mmol/L Potassium (3.5-5.1) mmol/L Chloride (98-107) mmol/L Carbon Dioxide (22-30) mmol/L Anion Gap mmol/L BUN (7-17) mg/dL Creatinine (0.52-1.04) mg/dL Est GFR (CKD-EPI)AfAm (>60 ml/min/1.73 sqM) Est GFR (CKD-EPI)NonAf (>60 ml/min/1.73 sqM) Glucose (74-99) mg/dL POC Glucose (mg/dL) >600 H 380 H (70-110) mg/dL POC Glu [employer] Catia Valenzuela Taylor Lactic Ac Sepsis Rflx Plasma Lactic Acid Ab (0.7-2.0) mmol/L Calcium (8.4-10.2) mg/dL Total Bilirubin (0.2-1.3) mg/dL AST (14-36) U/L ALT (4-34) U/L Alkaline Phosphatase (38-126) U/L Troponin I (0.000-0.034) ng/mL NT-Pro-B Natriuret Pep pg/mL Total Protein (6.3-8.2) g/dL Albumin (3.5-5.0) g/dL Acetone, Qual (Negative) Disposition Is patient prescribed a controlled substance at d/c from ED?: No <Guerrero Fontenot - Last Filed: 05/16/23 20:26> <Angelica Mcguire - Last Filed: 05/16/23 23:54> Clinical Impression: Hyperglycemia, Hyperosmolality Disposition: ADMITTED IP TO THIS HOSP Condition: Poor
--- NOTE | 2023-05-16 15:56 | XR ---
EXAMINATION TYPE: XR Hip RT and AP Pelvis DATE OF EXAM: 05/16/2023 COMPARISON: 05/15/2016 HISTORY: Pain TECHNIQUE: A single AP view of the pelvis is obtained. Two views of the right hip are obtained. FINDINGS: There is no acute fracture/dislocation evident in the pelvis. The sacroiliac joints appea r symmetric and unremarkable. The overlying soft tissue appears unremarkable. Vascular calcification s noted. Diffuse demineralization. Degenerative change lower lumbar spine. Two views of right hip show no acute fracture or dislocation. Mild axial narrowing of the joint spac e. No focal lytic or sclerotic lesion seen in the proximal right femur. The overlying soft tissue is unremarkable. IMPRESSION: There is no acute fracture or dislocation in the pelvis or right hip. If high clinical c oncern for fracture or difficulty with weightbearing then CT scan would be recommended.
[2023-05-16 16:04] LABS: ALT 18 U/L (4-34); AST 19 U/L (14-36); African American GFR (CKD) 25 (>60 ml/min/1.73 sqM); Albumin 4.2 g/dL (3.5-5.0); Alkaline Phosphatase 198 U/L (38-126); Anion Gap 14 mmol/L; Basophils % (A) 1 %; Blood Urea Nitrogen 42 mg/dL (7-17); Calcium 8.3 mg/dL (8.4-10.2); Carbon Dioxide 18 mmol/L (22-30); Chloride 85 mmol/L (98-107); Eosinophils # (A) 0.1 k/uL (0-0.7); Eosinophils % (A) 1 %; HGB 11.4 gm/dL (11.4-16.0); Hypochromasia Marked; Lymphocytes # (A) 0.7 k/uL (1.0-4.8); Lymphocytes % (A) 11 %; MCH 29.9 pg (25.0-35.0); Mean Platelet Volume 8.4; Monocytes # (A) 0.2 k/uL (0-1.0); Monocytes % (A) 3 %; Neutrophils # (A) 5.8 k/uL (1.3-7.7); Neutrophils % (A) 84 %; Non-African American GFR(CKD) 22 (>60 ml/min/1.73 sqM); Platelet Count 198 k/uL (150-450); RBC 3.81 m/uL (3.80-5.40); Total Bilirubin 0.5 mg/dL (0.2-1.3); Total Protein 6.8 g/dL (6.3-8.2); WBC 6.8 k/uL (3.8-10.6)
[2023-05-16 16:13] LABS: NT-Pro-B-Type Natriuretic Pept 2250 pg/mL
[2023-05-16 16:23] LABS: MCV 99.8 fL (80.0-100.0)
[2023-05-16 16:35] LABS: Glucose 1221 mg/dL (74-99); Potassium 6.5 mmol/L (3.5-5.1); Sodium 117 mmol/L (137-145)
[2023-05-16] MEDS ORDERED: SODIUM CHLORIDE 0.9% 1,000 ML IV ONE (16:43)
[2023-05-16] MEDS ORDERED: INSULIN REGULAR BOLUS (FROM DRIP BAG) IV ONE (16:44)
[2023-05-16] MEDS ORDERED: DEXTROSE 50% SYRINGE 50 ML IVP PRN ×2 (16:44)
[2023-05-16] MEDS ORDERED: INSULIN REGULAR 100 UNIT in SODIUM CHLORIDE 0.9% 100 ML IV SCH (16:45)
[2023-05-16 17:24] LABS: Glucose,Whole Blood >600 mg/dL (70-110)
[2023-05-16] MEDS: SODIUM CHLORIDE 0.9% 1,000 ML IV SCH ×2 (17:29→21:30)
[2023-05-16 18:09] LABS: Glucose,Whole Blood >600 mg/dL (70-110)
[2023-05-16 18:10] LABS: INR 0.9 (<1.2); Prothrombin Time 10.3 sec (10.0-12.5)
[2023-05-16 18:21] LABS: Partial Thromboplastin Time 19.2 sec (22.0-30.0)
[2023-05-16 19:01] LABS: Glucose,Whole Blood >600 mg/dL (70-110)
[2023-05-16 20:24] LABS: Glucose,Whole Blood >600 mg/dL (70-110)
[2023-05-16 21:24] LABS: Glucose,Whole Blood 380 mg/dL (70-110)
[2023-05-16] MEDS ORDERED: HYDROcodone/APAP 5-325MG 1 EACH TAB PO STA (21:39)
[2023-05-16] MEDS ORDERED: NALOXONE 0.4 MG/ML 1 ML VIAL IV PRN (22:03)
[2023-05-16 22:48] LABS: Glucose,Whole Blood 153 mg/dL (70-110)
[2023-05-16 23:32] LABS: VBG PH 7.25 (7.31-7.41)
[2023-05-16 23:43] LABS: ALT 21 U/L (4-34); AST 23 U/L (14-36); African American GFR (CKD) 29 (>60 ml/min/1.73 sqM); Albumin 4.5 g/dL (3.5-5.0); Alkaline Phosphatase 158 U/L (38-126); Anion Gap 20 mmol/L; Blood Urea Nitrogen 41 mg/dL (7-17); Carbon Dioxide 16 mmol/L (22-30); Chloride 96 mmol/L (98-107); Glucose 169 mg/dL (74-99); Non-African American GFR(CKD) 26 (>60 ml/min/1.73 sqM); Potassium 4.2 mmol/L (3.5-5.1); Sodium 132 mmol/L (137-145); Total Bilirubin 0.4 mg/dL (0.2-1.3); Total Protein 7.5 g/dL (6.3-8.2)
[2023-05-17 01:19] LABS: Glucose,Whole Blood 168 mg/dL (70-110)
[2023-05-17 02:03] LABS: Glucose,Whole Blood 181 mg/dL (70-110)
[2023-05-17] MEDS ORDERED: DEXTROSE 50% SYRINGE 50 ML IVP PRN ×2 (02:48)
[2023-05-17] MEDS: D5-0.45% NACL WITH KCL 20MEQ/L 1,000 ML IV SCH ×4 (03:59→23:26)
[2023-05-17 04:11] LABS: Glucose,Whole Blood 254 mg/dL (70-110)
[2023-05-17] MEDS: INSULIN REGULAR 100 UNIT in SODIUM CHLORIDE 0.9% 100 ML IV SCH ×2 (04:25→17:50)
[2023-05-17 05:01] LABS: African American GFR (CKD) 37 (>60 ml/min/1.73 sqM); Anion Gap 15 mmol/L; Blood Urea Nitrogen 39 mg/dL (7-17); Carbon Dioxide 16 mmol/L (22-30); Chloride 98 mmol/L (98-107); Non-African American GFR(CKD) 32 (>60 ml/min/1.73 sqM); Phosphorus 4.6 mg/dL (2.5-4.5); Potassium 4.2 mmol/L (3.5-5.1); Sodium 129 mmol/L (137-145)
[2023-05-17 05:19] LABS: Glucose,Whole Blood 295 mg/dL (70-110)
[2023-05-17] MEDS ORDERED: Potassium Replacement Protocol 1 EACH MISC MISCELLANE PRN (06:07)
[2023-05-17] MEDS ORDERED: Magnesium Replacement Protocol 1 EACH MISC MISCELLANE PRN (06:07)
[2023-05-17] MEDS ORDERED: LOPERAMIDE 2 MG CAP PO PRN (06:10)
[2023-05-17] MEDS ORDERED: ACETAMINOPHEN TAB 325 MG TAB PO PRN (06:10)
[2023-05-17] MEDS ORDERED: ONDANSETRON 4 MG/2 ML VIAL IVP PRN (06:10)
[2023-05-17] MEDS ORDERED: BUTALB/APAP/CAFF 50-325-40MG TAB PO PRN (06:10)
[2023-05-17] MEDS ORDERED: MECLIZINE 25 MG TAB PO PRN (06:10)
[2023-05-17 06:24] LABS: Glucose,Whole Blood 229 mg/dL (70-110)
[2023-05-17 07:50] LABS: Glucose,Whole Blood 162 mg/dL (70-110)
[2023-05-17 08:46] LABS: Glucose,Whole Blood 114 mg/dL (70-110)
[2023-05-17] MEDS: IPRATROPIUM-ALBUTEROL 3 ML NEB INHALATION PRN (08:46)
[2023-05-17] MEDS: ISOSORBIDE MONONITRATE ER 30 MG TAB.ER.24H PO SCH (08:57)
[2023-05-17] MEDS: LORATADINE 10 MG TAB PO SCH (08:57)
[2023-05-17] MEDS: FERROUS SULFATE 325 MG TAB PO SCH (08:57)
[2023-05-17] MEDS: HYDROcodone/APAP 7.5-325MG 1 EACH TAB PO PRN (08:57)
[2023-05-17] MEDS: VENLAFAXINE HCL ER 75 MG CAP PO SCH (08:57)
[2023-05-17] MEDS: LEVOTHYROXINE 50 MCG TAB PO SCH (08:58)
[2023-05-17] MEDS: MAGNESIUM OXIDE 400 MG TAB PO SCH (08:58)
[2023-05-17] MEDS: LEVOTHYROXINE 100 MCG TAB PO SCH (08:58)
[2023-05-17] MEDS: PANTOPRAZOLE 40 MG TABLET PO SCH ×2 (08:58→17:02)
[2023-05-17] MEDS: ASPIRIN 81 MG PO SCH (08:58)
[2023-05-17] MEDS: CHOLECALCIFEROL 125 MCG (5000 IU) TABLET PO SCH ×3 (08:58→22:08)
[2023-05-17] MEDS: GABAPENTIN 300 MG CAP PO SCH ×3 (09:06→22:07)
[2023-05-17 09:43] LABS: Glucose,Whole Blood 128 mg/dL (70-110)
[2023-05-17 10:38] LABS: Glucose,Whole Blood 161 mg/dL (70-110)
[2023-05-17 11:00] LABS: VBG PH 7.42 (7.31-7.41)
[2023-05-17 11:09] LABS: African American GFR (CKD) 52 (>60 ml/min/1.73 sqM); Anion Gap 13 mmol/L; Blood Urea Nitrogen 37 mg/dL (7-17); Carbon Dioxide 15 mmol/L (22-30); Chloride 103 mmol/L (98-107); Non-African American GFR(CKD) 45 (>60 ml/min/1.73 sqM); Phosphorus 3.3 mg/dL (2.5-4.5); Potassium 3.9 mmol/L (3.5-5.1); Sodium 131 mmol/L (137-145)
[2023-05-17 11:49] LABS: Glucose,Whole Blood 179 mg/dL (70-110)
--- NOTE | 2023-05-17 12:38 | P.HPIM ---
History of Present Illness H&P Date: 05/17/23 Chief Complaint: Status post fall, weakness * 63-year-old lady with past medical history significant for coronary artery disease, diabetes mellitus, hypertension, hyperlipidemia, history of DVT, CVA hypothyroid who presents to the emergency department with complains of shortn ess of breath. Patient was recently admitted and discharged on 05/05/23 for chest pain. Patient was seen by cardiology, CT chest was done which was negative for pulmonary embolism during previous hospitalization * Patient says she has been having shortness of breath and back discomfort ongoing since discharge. She did try her nebulizer breathing treatment with minimal improvement. She complained of mild chest discomfort, patient states after being discharged from the hospital she did have a fall at home and did complain of right hip pain and low back pain on presentation. * She mentioned she did not have supplies for insulin pump for 48 hours * Workup initiated in ER included an x-ray hip which was negative for fracture, chest x-ray was obtained which did show calcified granulomas pulmonary vessels were within normal limits, no pneumothorax was noted * At work obtained in ED included CBC which were WBC count of 6.8 hemoglobin 11.4 platelet count of 198, INR 0.9, * Venous blood gas obtained showed pH 7.25 pCO2 43 bicarb of 19 * Serum chemistry showed sodium 132 potassium 4.2 chloride 96 come directly 16 BU and 41 and creatinine 2.03, follow-up creatinine 1.68 * Blood glucose obtained at the time of admission was greater than 600 * Serum lactate of pain of 4.7 followed by 4.2 * Basic tone levels were negative, urine osmole 07/19/1998 * Patient was treated for hyperosmolar hyperglycemic state, given insulin bolus followed by insulin drip and IV fluid and serial electrolyte panel REVIEW OF SYSTEMS:, fatigue, malaise, generalized weakness, fall at home CONSTITUTIONAL: No fever, no malaise, no fatigue. HEENT: No recent visual problems or hearing problems. Denied any sore throat. CARDIOVASCULAR: No chest pain, orthopnea, PND, no palpitations, no syncope. PULMONARY: No shortness of breath, no cough, no hemoptysis. GASTROINTESTINAL: No diarrhea, no nausea, no vomiting, no abdominal pain. NEUROLOGICAL: No headaches, no weakness, no numbness. HEMATOLOGICAL: Denies any bleeding or petechiae. GENITOURINARY: Denies any burning micturition, frequency, or urgency. MUSCULOSKELETAL/RHEUMATOLOGICAL: , fatigue, malaise, generalized weakness ENDOCRINE: Denies any polyuria or polydipsia. The rest of the 14-point review of systems is negative. PHYSICAL EXAMINATION: GENERAL: The patient is alert and oriented x3, ill appearance HEENT: Pupils are round and equally reacting to light. EOMI. CARDIOVASCULAR: S1 and S2 present. No murmurs, rubs, or gallops. PULMONARY: Decreased breath sounds bilaterally ABDOMEN: Soft, nontender, nondistended, normoactive bowel sounds. No palpable organomegaly. MUSCULOSKELETAL: No joint swelling or deformity. EXTREMITIES: No cyanosis, clubbing, or pedal edema. NEUROLOGICAL: Gross neurological examination did not reveal any focal deficits. SKIN: No rashes. Past Medical History Past Medical History: Coronary Artery Disease (CAD), Cancer, COPD, CVA/TIA, Diabetes Mellitus, Deep Vein Thrombosis (DVT), Eye Disorder, GERD/Reflux, Hyperlipidemia, Hypertension, Myocardial Infarction ([place]), Renal Disease, Rheumatoid Arthritis (RA), Sleep Apnea/CPAP/BIPAP, Syncope, Thyroid Disorder Additional Past Medical History / Comment(s): 09/16/16 with SBO with surgery/possible septic emboli with cavitary lesions bilateral lungs. 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 coli Nov2015 requiring PICC line insertion for IV antibiotics, restless leg syndrome, peripheral neuropathy. Hx bilateral glaucoma, hx syncope r/t low blood sugars. No CPAP use. pt states had high blood sugar 1 week ago and was seen an [facility]. Last Myocardial Infarction Date:: 2019 History of Any Multi-Drug Resistant Organisms: ESBL, MRSA, VRE Date of last positivie culture/infection: 05/07/16 ESBL, 05/15/16 VRE, MRSA 09/2017 - upper lip MDRO Source:: URINE E.COLI, EC GALLINARUM Past Surgical History: Appendectomy, Bowel Resection, Section, Heart Catheterization, Heart Catheterization With Stent, Hernia Repair Additional Past Surgical History / Comment(s): 09/30 exploratory laparotomy with lysis of adhesions, bowel resection d/t obstruction. repair incarcerated incisional hernia with abdominal washout, thyroidectomy(non functioning), heart cath 06/28 - 100% occluded, unable to stent, partial left nephrectomy for left kidney renal cell carcinoma, PICC line insertion (since removed), colonoscopy, bilateral cataract removal with lens implants, 2 Sections. cardiac Stent 03/2021 Past Anesthesia/Blood Transfusion Reactions: No Reported Reaction Date of Last Stent Placement:: 04/06/2021 Past Psychological History: Depression Smoking Status: Current some day smoker Past Alcohol Use History: None Reported Past Drug Use History: Marijuana - Past Family History Sister(s) Family Medical History: Cancer, Deep Vein Thrombosis (DVT) Additional Family Medical History / Comment(s): Patient has one sister that from liver cancer. Brother(s) Family Medical History: Cancer, Deep Vein Thrombosis (DVT) Additional Family Medical History / Comment(s): Patient has 1 brother with past ETOH, past drug abuse, DVTs. She has a second brother that has from throat cancer. Daughter(s) Family Medical History: Diabetes Mellitus, Myocardial Infarction ([place]) Additional Family Medical History / Comment(s): Daughter at 23 yrs old from massive [place]. Father Family Medical History: Myocardial Infarction ([place]) Additional Family Medical History / Comment(s): from [place] at age 44 Mother Family Medical History: Cancer Additional Family Medical History / Comment(s): B/L breast cancer Medications and Allergies Home Medications Medication Instructions Recorded Confirmed Type Venlafaxine HCl [Effexor XR] 225 mg PO DAILY 10/21/16 05/16/23 History Pantoprazole Sodium [Protonix] 40 mg PO BID 04/06/20 05/16/23 History Meclizine [Antivert] 25 mg PO TID PRN 01/16/21 05/16/23 History Ferrous Sulfate [Iron (65 MG 325 mg PO DAILY 10/02/21 05/16/23 History Elemental)] Cetirizine HCl [Zyrtec] 10 mg PO DAILY 07/15/22 05/16/23 History Cholecalciferol [Vitamin D3 (125 125 mcg PO TID 07/15/22 05/16/23 History Mcg = 5000 Iu)] Gabapentin 300 mg PO TID 07/15/22 05/16/23 History Glucagon [Baqsimi] 1 spray NASAL DIRECTED PRN 07/15/22 05/16/23 History Ipratropium-Albuterol Nebulize 3 ml INHALATION RT-QID PRN 07/15/22 05/16/23 History [Duoneb 0.5 mg-3 mg/3 ml Soln] Levothyroxine Sodium [Synthroid] 50 mcg PO DAILY 07/15/22 05/16/23 History Levothyroxine Sodium [Synthroid] 200 mcg PO DAILY 07/15/22 05/16/23 History Magnesium Oxide [Mag-Ox] 400 mg PO DAILY 07/15/22 05/16/23 History Multivitamins, Thera [Multivitamin 1 tab PO DAILY 07/15/22 05/16/23 History (formulary)] Acetaminophen Tab [Tylenol] 650 mg PO Q6HR PRN tab 09/04/22 05/16/23 Rx Aspirin EC [Ecotrin Low Dose] 81 mg PO DAILY 10/03/22 05/16/23 History Butalb/APAP/Caff 50-325-40Mg 1 tab PO BID PRN 10/03/22 05/16/23 History [Fioricet 50-325-40] rOPINIRole HCL [Requip] 0.5 mg PO BID 10/03/22 05/16/23 History Loperamide [Imodium] 2 mg PO TID PRN #21 capsule 10/07/22 05/16/23 Rx HYDROcodone/APAP 7.5-325MG [[place] 1 tab PO BID PRN 01/05/23 05/16/23 History 7.5-325] Rosuvastatin Calcium [Crestor] 40 mg PO HS 01/05/23 05/16/23 History Metoclopramide HCl [Reglan] 5 mg PO TID PRN #30 tablet 01/07/23 05/16/23 Rx Ondansetron Odt [Zofran ODT] 4 mg PO Q8HR PRN #10 tab 01/07/23 05/16/23 Rx INSULIN LISPRO (For Pump) [humaLOG 0.01 units SQ-PUMP CONTINUOUS 04/10/23 05/16/23 History (For Pump)] Isosorbide Mononitrate ER [Imdur] 30 mg PO DAILY 04/10/23 05/16/23 History Mirtazapine 7.5 mg PO HS 04/10/23 05/16/23 History Fluconazole 150 mg PO ONCE PRN 05/04/23 05/16/23 History Metoprolol Succinate (ER) [Toprol 25 mg PO HS 05/16/23 05/16/23 History XL] Allergies Allergy/AdvReac Type Severity Reaction Status Date / Time grass pollen Allergy Unknown Verified 05/16/23 19:21 latex Allergy Rash/Hives Verified 05/16/23 19:21 Sulfa (Sulfonamide Allergy Rash/Hives/ Verified 05/16/23 19:21 Antibiotics) Swelling venom-honey bee Allergy Anaphylaxis Verified 05/16/23 19:21 prochlorperazine edisylate AdvReac Vomiting Verified 05/16/23 19:21 [From Compazine] Physical Exam Vitals: Vital Signs Temp Pulse Pulse Resp BP BP Pulse Ox 05/17/23 08:52 84 05/17/23 08:44 81 96 05/17/23 08:00 97.8 F 86 14 106/89 97 05/17/23 05:00 87 16 102/82 96 05/17/23 04:00 81 18 128/63 96 05/17/23 03:00 80 18 110/58 96 05/17/23 02:00 79 15 108/65 100 05/17/23 01:58 84 19 108/65 100 05/16/23 23:00 98 16 108/67 96 05/16/23 22:00 93 18 108/67 96 05/16/23 21:00 95 18 121/110 95 05/16/23 19:00 93 18 127/75 96 05/16/23 17:54 18 05/16/23 17:53 91 18 130/70 96 05/16/23 12:51 98.9 F 82 16 114/51 96 Intake and Output 05/16/23 05/17/23 05/17/23 22:59 06:59 14:59 Intake Total 14.613 20.73 Balance 14.613 20.73 Intake: Intake, IV Titration 14.613 20.73 Amount Insulin Regular 100 unit 14.613 20.73 In Sodium Chloride 0.9% 100 ml @ 0.1 UNITS/KG/HR 6.872 mls/hr IV .[id number] [facility] Rx#:[id number] Results CBC & Chem 7: 05/16/23 15:45 05/17/23 10:00 Labs: Abnormal Lab Results - Last 24 Hours (Table) 05/16/23 05/16/23 05/16/23 Range/Units 15:45 15:45 15:45 MCHC 30.0 L (31.0-37.0) g/dL Lymphocytes # 0.7 L (1.0-4.8) k/uL APTT (22.0-30.0) sec VBG pH (7.31-7.41) VBG HCO3 (24-28) mmol/L Sodium 117 L* (137-145) mmol/L Potassium 6.5 H* (3.5-5.1) mmol/L Chloride 85 L (98-107) mmol/L Carbon Dioxide 18 L (22-30) mmol/L BUN 42 H (7-17) mg/dL Creatinine 2.34 H (0.52-1.04) mg/dL Glucose 1221 H* (74-99) mg/dL POC Glucose (mg/dL) (70-110) mg/dL Plasma Lactic Acid Ab 2.4 H* (0.7-2.0) mmol/L Calcium 8.3 L (8.4-10.2) mg/dL Phosphorus (2.5-4.5) mg/dL Alkaline Phosphatase 198 H (38-126) U/L 05/16/23 05/16/23 05/16/23 Range/Units 17:23 17:26 18:08 MCHC (31.0-37.0) g/dL Lymphocytes # (1.0-4.8) k/uL APTT 19.2 L (22.0-30.0) sec VBG pH (7.31-7.41) VBG HCO3 (24-28) mmol/L Sodium (137-145) mmol/L Potassium (3.5-5.1) mmol/L Chloride (98-107) mmol/L Carbon Dioxide (22-30) mmol/L BUN (7-17) mg/dL Creatinine (0.52-1.04) mg/dL Glucose (74-99) mg/dL POC Glucose (mg/dL) >600 H >600 H (70-110) mg/dL Plasma Lactic Acid Ab (0.7-2.0) mmol/L Calcium (8.4-10.2) mg/dL Phosphorus (2.5-4.5) mg/dL Alkaline Phosphatase (38-126) U/L 05/16/23 05/16/23 05/16/23 Range/Units 19:00 19:05 20:22 MCHC (31.0-37.0) g/dL Lymphocytes # (1.0-4.8) k/uL APTT (22.0-30.0) sec VBG pH (7.31-7.41) VBG HCO3 (24-28) mmol/L Sodium (137-145) mmol/L Potassium (3.5-5.1) mmol/L Chloride (98-107) mmol/L Carbon Dioxide (22-30) mmol/L BUN (7-17) mg/dL Creatinine (0.52-1.04) mg/dL Glucose (74-99) mg/dL POC Glucose (mg/dL) >600 H >600 H (70-110) mg/dL Plasma Lactic Acid Ab 4.7 H* (0.7-2.0) mmol/L Calcium (8.4-10.2) mg/dL Phosphorus (2.5-4.5) mg/dL Alkaline Phosphatase (38-126) U/L 05/16/23 05/16/23 05/16/23 Range/Units 21:22 22:46 23:00 MCHC (31.0-37.0) g/dL Lymphocytes # (1.0-4.8) k/uL APTT (22.0-30.0) sec VBG pH (7.31-7.41) VBG HCO3 (24-28) mmol/L Sodium (137-145) mmol/L Potassium (3.5-5.1) mmol/L Chloride (98-107) mmol/L Carbon Dioxide (22-30) mmol/L BUN (7-17) mg/dL Creatinine (0.52-1.04) mg/dL Glucose (74-99) mg/dL POC Glucose (mg/dL) 380 H 153 H (70-110) mg/dL Plasma Lactic Acid Ba 4.2 H* (0.7-2.0) mmol/L Calcium (8.4-10.2) mg/dL Phosphorus (2.5-4.5) mg/dL Alkaline Phosphatase (38-126) U/L 05/16/23 05/16/23 05/17/23 Range/Units 23:00 23:00 01:15 MCHC (31.0-37.0) g/dL Lymphocytes # (1.0-4.8) k/uL APTT (22.0-30.0) sec VBG pH 7.25 L (7.31-7.41) VBG HCO3 19 L (24-28) mmol/L Sodium 132 L (137-145) mmol/L Potassium (3.5-5.1) mmol/L Chloride 96 L (98-107) mmol/L Carbon Dioxide 16 L (22-30) mmol/L BUN 41 H (7-17) mg/dL Creatinine 2.03 H (0.52-1.04) mg/dL Glucose 169 H (74-99) mg/dL POC Glucose (mg/dL) 168 H (70-110) mg/dL Plasma Lactic Acid Ab (0.7-2.0) mmol/L Calcium (8.4-10.2) mg/dL Phosphorus (2.5-4.5) mg/dL Alkaline Phosphatase 158 H (38-126) U/L 05/17/23 05/17/23 05/17/23 Range/Units 02:01 03:58 04:12 MCHC (31.0-37.0) g/dL Lymphocytes # (1.0-4.8) k/uL APTT (22.0-30.0) sec VBG pH (7.31-7.41) VBG HCO3 (24-28) mmol/L Sodium 129 L (137-145) mmol/L Potassium (3.5-5.1) mmol/L Chloride (98-107) mmol/L Carbon Dioxide 16 L (22-30) mmol/L BUN 39 H (7-17) mg/dL Creatinine 1.68 H (0.52-1.04) mg/dL Glucose (74-99) mg/dL POC Glucose (mg/dL) 181 H 254 H (70-110) mg/dL Plasma Lactic Acid Ab (0.7-2.0) mmol/L Calcium (8.4-10.2) mg/dL Phosphorus 4.6 H (2.5-4.5) mg/dL Alkaline Phosphatase (38-126) U/L 05/17/23 05/17/23 05/17/23 Range/Units 05:17 06:23 07:49 MCHC (31.0-37.0) g/dL Lymphocytes # (1.0-4.8) k/uL APTT (22.0-30.0) sec VBG pH (7.31-7.41) VBG HCO3 (24-28) mmol/L Sodium (137-145) mmol/L Potassium (3.5-5.1) mmol/L Chloride (98-107) mmol/L Carbon Dioxide (22-30) mmol/L BUN (7-17) mg/dL Creatinine (0.52-1.04) mg/dL Glucose (74-99) mg/dL POC Glucose (mg/dL) 295 H 229 H 162 H (70-110) mg/dL Plasma Lactic Acid Ab (0.7-2.0) mmol/L Calcium (8.4-10.2) mg/dL Phosphorus (2.5-4.5) mg/dL Alkaline Phosphatase (38-126) U/L 05/17/23 Range/Units 08:44 MCHC (31.0-37.0) g/dL Lymphocytes # (1.0-4.8) k/uL APTT (22.0-30.0) sec VBG pH (7.31-7.41) VBG HCO3 (24-28) mmol/L Sodium (137-145) mmol/L Potassium (3.5-5.1) mmol/L Chloride (98-107) mmol/L Carbon Dioxide (22-30) mmol/L BUN (7-17) mg/dL Creatinine (0.52-1.04) mg/dL Glucose (74-99) mg/dL POC Glucose (mg/dL) 114 H (70-110) mg/dL Plasma Lactic Acid Ab (0.7-2.0) mmol/L Calcium (8.4-10.2) mg/dL Phosphorus (2.5-4.5) mg/dL Alkaline Phosphatase (38-126) U/L Assessment and Plan Assessment: Assessment and plan * Hyperosmolar hyperglycemic state * Diabetes mellitus insulin-dependent * Fall at home * Hypertension * Hypothyroid * Restless leg syndrome * History of depression * Gastroesophageal reflux disease * History of COPD * Coronary artery disease * In regards to hyperosmolar state, serial electrolyte panel ordered continue patient on insulin drip, continue patient on IV fluid resuscitation follow-up on electrolyte panel, started on clear liquid diet when necessary Zofran order ed for nausea * In regards to diabetes mellitus, continue patient on insulin drip and fluid resuscitation, once blood glucose and serum bicarbonate levels improved patient will transition to home insulin regimen * In regards to hypertension continue patient on metoprolol * In regards to dyslipidemia continue Lipitor * In regards to hypothyroid continue Synthyroid * Regards to recent fall * CODE STATUS is full code Time with Patient: Greater than 30
[2023-05-17 12:44] LABS: Glucose,Whole Blood 180 mg/dL (70-110)
[2023-05-17 12:56] LABS: HCT 28.5 % (34.0-46.0); MCH 29.8 pg (25.0-35.0); MCHC 34.3 g/dL (31.0-37.0); Mean Platelet Volume 9.7; Platelet Count 180 k/uL (150-450); RBC 3.27 m/uL (3.80-5.40); WBC 5.6 k/uL (3.8-10.6)
[2023-05-17 12:58] LABS: HGB 9.8 gm/dL (11.4-16.0)
[2023-05-17 13:39] LABS: Glucose,Whole Blood 171 mg/dL (70-110)
[2023-05-17 14:34] LABS: Glucose,Whole Blood 151 mg/dL (70-110)
[2023-05-17 14:50] LABS: African American GFR (CKD) 60 (>60 ml/min/1.73 sqM); Non-African American GFR(CKD) 52 (>60 ml/min/1.73 sqM)
[2023-05-17 16:32] LABS: Glucose,Whole Blood 123 mg/dL (70-110)
[2023-05-17 17:48] LABS: Glucose,Whole Blood 116 mg/dL (70-110)
[2023-05-17 18:38] LABS: Glucose,Whole Blood 159 mg/dL (70-110)
[2023-05-17] MEDS: MIRTAZAPINE 15 MG TAB PO SCH (22:08)
[2023-05-17] MEDS: METOPROLOL SUCCINATE (ER) 25 MG TAB.ER.24H PO SCH (22:09)
[2023-05-17] MEDS: ATORVASTATIN 80 MG TAB PO SCH (22:09)
[2023-05-17 22:25] LABS: Glucose,Whole Blood 314 mg/dL (70-110)
[2023-05-17 23:21] LABS: Glucose,Whole Blood 289 mg/dL (70-110)
[2023-05-18 00:23] LABS: Glucose,Whole Blood 257 mg/dL (70-110)
[2023-05-18 01:29] LABS: Glucose,Whole Blood 183 mg/dL (70-110)
[2023-05-18 02:30] LABS: Glucose,Whole Blood 84 mg/dL (70-110)
[2023-05-18 02:30] LABS: Glucose,Whole Blood 95 mg/dL (70-110)
[2023-05-18 02:57] LABS: Glucose,Whole Blood 79 mg/dL (70-110)
[2023-05-18 03:40] LABS: Glucose,Whole Blood 93 mg/dL (70-110)
[2023-05-18] MEDS: D5-0.45% NACL WITH KCL 20MEQ/L 1,000 ML IV SCH (04:05)
[2023-05-18 05:09] LABS: Glucose,Whole Blood 128 mg/dL (70-110)
[2023-05-18 06:23] LABS: Glucose,Whole Blood 127 mg/dL (70-110)
[2023-05-18] MEDS: IPRATROPIUM-ALBUTEROL 3 ML NEB INHALATION PRN (08:01)
[2023-05-18 08:17] LABS: Glucose,Whole Blood 211 mg/dL (70-110)
[2023-05-18] MEDS: MAGNESIUM OXIDE 400 MG TAB PO SCH (09:26)
[2023-05-18] MEDS: PANTOPRAZOLE 40 MG TABLET PO SCH ×2 (09:26→16:51)
[2023-05-18] MEDS: CHOLECALCIFEROL 125 MCG (5000 IU) TABLET PO SCH ×3 (09:26→21:05)
[2023-05-18] MEDS: ASPIRIN 81 MG PO SCH (09:26)
[2023-05-18] MEDS: VENLAFAXINE HCL ER 75 MG CAP PO SCH (09:26)
[2023-05-18] MEDS: LORATADINE 10 MG TAB PO SCH (09:26)
[2023-05-18] MEDS: LEVOTHYROXINE 100 MCG TAB PO SCH (09:26)
[2023-05-18] MEDS: LEVOTHYROXINE 50 MCG TAB PO SCH (09:26)
[2023-05-18] MEDS: ISOSORBIDE MONONITRATE ER 30 MG TAB.ER.24H PO SCH (09:26)
[2023-05-18] MEDS: FERROUS SULFATE 325 MG TAB PO SCH (09:26)
[2023-05-18] MEDS: ENOXAPARIN 40 MG/0.4 ML SYRINGE SQ SCH (09:26)
[2023-05-18 09:27] LABS: Glucose,Whole Blood 426 mg/dL (70-110)
[2023-05-18] MEDS: GABAPENTIN 300 MG CAP PO SCH ×3 (09:33→21:05)
[2023-05-18 10:08] LABS: Glucose,Whole Blood 474 mg/dL (70-110)
[2023-05-18] MEDS: INSULIN REGULAR 100 UNIT in SODIUM CHLORIDE 0.9% 100 ML IV SCH ×2 (10:16→15:13)
[2023-05-18 10:38] LABS: HCT 29.9 % (34.0-46.0); HGB 9.4 gm/dL (11.4-16.0); Hypochromasia Slight; MCH 29.2 pg (25.0-35.0); MCHC 31.5 g/dL (31.0-37.0); Mean Platelet Volume 9.7; Platelet Count 173 k/uL (150-450); RBC 3.22 m/uL (3.80-5.40); RDW 14.4 % (11.5-15.5); WBC 8.4 k/uL (3.8-10.6)
[2023-05-18 10:55] LABS: MCV 92.7 fL (80.0-100.0)
[2023-05-18 11:10] LABS: Glucose,Whole Blood 483 mg/dL (70-110)
[2023-05-18 12:05] LABS: African American GFR (CKD) 81 (>60 ml/min/1.73 sqM); Anion Gap 12 mmol/L; Blood Urea Nitrogen 21 mg/dL (7-17); Carbon Dioxide 14 mmol/L (22-30); Chloride 104 mmol/L (98-107); Glucose 398 mg/dL (74-99); Non-African American GFR(CKD) 71 (>60 ml/min/1.73 sqM); Potassium 5.4 mmol/L (3.5-5.1); Sodium 130 mmol/L (137-145)
[2023-05-18 12:10] LABS: Glucose,Whole Blood 442 mg/dL (70-110)
[2023-05-18] MEDS ORDERED: SODIUM BICARB 8.4% 50 ML SYR (1 MEQ/ML) IV STA (12:20)
--- NOTE | 2023-05-18 12:25 | P.PN ---
Subjective Progress Note Date: 05/18/23 * 63-year-old lady with past medical history significant for coronary artery disease, diabetes mellitus, hypertension, hyperlipidemia, history of DVT, CVA hypothyroid who presents to the emergency department with complains of shortness of breath. Patient was recently admitted and discharged on 05/05/23 for chest pain. Patient was seen by cardiology, CT chest was done which was negative for pulmonary embolism during previous hospitalization * Patient says she has been having shortness of breath and back discomfort ongoing since discharge. She did try her nebulizer breathing treatment with minimal improvement. She complained of mild chest discomfort, patient states after being discharged from the hospital she did have a fall at home and did complain of right hip pain and low back pain on presentation. * She mentioned she did not have supplies for insulin pump for 48 hours * Workup initiated in ER included an x-ray hip which was negative for fracture, chest x-ray was obtained which did show calcified granulomas pulmonary vessels were within normal limits, no pneumothorax was noted * At work obtained in ED included CBC which were WBC count of 6.8 hemoglobin 11.4 platelet count of 198, INR 0.9, * Venous blood gas obtained showed pH 7.25 pCO2 43 bicarb of 19 * Serum chemistry showed sodium 132 potassium 4.2 chloride 96 come directly 16 BU and 41 and creatinine 2.03, follow-up creatinine 1.68 * Blood glucose obtained at the time of admission was greater than 600 * Serum lactate of pain of 4.7 followed by 4.2 * Basic tone levels were negative, urine osmole 07/19/1998 * Patient was treated for hyperosmolar hyperglycemic state, given insulin bolus followed by insulin drip and IV fluid and serial electrolyte panel * 05/18/2023: Patient seen and evaluated bedside, blood work reviewed, hemoglobin is 9.4, serum chemistry showed sodium 1:30 potassium 5.4, carbon dioxide 14 BU and 12 creatinine 0.88. Plan of care discussed with patient mask, IV fluid decrease to D5/0.45 saline, potassium removed from IV fluid, follow-up potassium levels to be checked, patient given an amp of bicarbonate as well, patient is able to tolerate diet and we will advance diet and follow-up on serum chemistries. We will hold off on initiating patient insulin pump for another 12-24 hours. Follow-up on serum chemistry REVIEW OF SYSTEMS:, fatigue, malaise, generalized weakness, improved fall at home CONSTITUTIONAL: No fever, no malaise, no fatigue. HEENT: No recent visual problems or hearing problems. Denied any sore throat. CARDIOVASCULAR: No chest pain, orthopnea, PND, no palpitations, no syncope. PULMONARY: No shortness of breath, no cough, no hemoptysis. GASTROINTESTINAL: No diarrhea, no nausea, no vomiting, no abdominal pain. NEUROLOGICAL: No headaches, no weakness, no numbness. HEMATOLOGICAL: Denies any bleeding or petechiae. GENITOURINARY: Denies any burning micturition, frequency, or urgency. MUSCULOSKELETAL/RHEUMATOLOGICAL: , fatigue, malaise, generalized weakness ENDOCRINE: Denies any polyuria or polydipsia. PHYSICAL EXAMINATION: GENERAL: The patient is alert and oriented x3, ill appearance HEENT: Pupils are round and equally reacting to light. EOMI. CARDIOVASCULAR: S1 and S2 present. No murmurs, rubs, or gallops. PULMONARY: Decreased breath sounds bilaterally ABDOMEN: Soft, nontender, nondistended, normoactive bowel sounds. No palpable organomegaly. MUSCULOSKELETAL: No joint swelling or deformity. EXTREMITIES: No cyanosis, clubbing, or pedal edema. NEUROLOGICAL: Gross neurological examination did not reveal any focal deficits. SKIN: No rashes. Objective - Vital Signs Vital signs: Vital Signs Temp 98.2 F 05/17/23 16:00 Pulse 79 05/18/23 08:07 Resp 18 05/18/23 06:00 BP 119/84 05/18/23 06:00 Pulse Ox 100 05/18/23 06:00 FiO2 Intake & Output 05/17/23 05/18/23 05/18/23 18:59 06:59 18:59 Intake Total 1088.093 12.981 13.486 Balance 1088.093 12.981 13.486 Weight 68.039 kg Intake: Intake, IV Titration 1088.093 12.981 13.486 Amount D5-0.45% NaCl with KCl 1050 20Meq/l 1,000 ml @ 150 mls/hr IV .[id number] [facility] Rx# :[id number] Insulin Regular 100 unit 38.093 12.981 13.486 In Sodium Chloride 0.9% 100 ml @ 0.1 UNITS/KG/HR 6.872 mls/hr IV .[id number] [facility] Rx#:[id number] - Labs CBC & Chem 7: 05/18/23 09:13 05/18/23 06:00 Labs: Abnormal Lab Results - Last 24 Hours (Table) 05/17/23 05/17/23 05/17/23 Range/Units 10:00 12:43 13:37 RBC 3.27 L (3.80-5.40) m/uL Hgb 9.8 L D (11.4-16.0) gm/dL Hct 28.5 L (34.0-46.0) % Sodium (137-145) mmol/L Potassium (3.5-5.1) mmol/L Carbon Dioxide (22-30) mmol/L BUN (7-17) mg/dL Creatinine (0.52-1.04) mg/dL Glucose (74-99) mg/dL POC Glucose (mg/dL) 180 H 171 H (70-110) mg/dL Calcium (8.4-10.2) mg/dL 05/17/23 05/17/23 05/17/23 Range/Units 13:57 14:32 16:31 RBC (3.80-5.40) m/uL Hgb (11.4-16.0) gm/dL Hct (34.0-46.0) % Sodium (137-145) mmol/L Potassium (3.5-5.1) mmol/L Carbon Dioxide (22-30) mmol/L BUN (7-17) mg/dL Creatinine 1.14 H (0.52-1.04) mg/dL Glucose (74-99) mg/dL POC Glucose (mg/dL) 151 H 123 H (70-110) mg/dL Calcium (8.4-10.2) mg/dL 05/17/23 05/17/23 05/17/23 Range/Units 17:47 18:36 22:25 RBC (3.80-5.40) m/uL Hgb (11.4-16.0) gm/dL Hct (34.0-46.0) % Sodium (137-145) mmol/L Potassium (3.5-5.1) mmol/L Carbon Dioxide (22-30) mmol/L BUN (7-17) mg/dL Creatinine (0.52-1.04) mg/dL Glucose (74-99) mg/dL POC Glucose (mg/dL) 116 H 159 H 314 H (70-110) mg/dL Calcium (8.4-10.2) mg/dL 05/17/23 05/18/23 05/18/23 Range/Units 23:19 00:21 01:27 RBC (3.80-5.40) m/uL Hgb (11.4-16.0) gm/dL Hct (34.0-46.0) % Sodium (137-145) mmol/L Potassium (3.5-5.1) mmol/L Carbon Dioxide (22-30) mmol/L BUN (7-17) mg/dL Creatinine (0.52-1.04) mg/dL Glucose (74-99) mg/dL POC Glucose (mg/dL) 289 H 257 H 183 H (70-110) mg/dL Calcium (8.4-10.2) mg/dL 05/18/23 05/18/23 05/18/23 Range/Units 05:07 06:00 06:22 RBC (3.80-5.40) m/uL Hgb (11.4-16.0) gm/dL Hct (34.0-46.0) % Sodium 130 L (137-145) mmol/L Potassium 5.4 H (3.5-5.1) mmol/L Carbon Dioxide 14 L (22-30) mmol/L BUN 21 H (7-17) mg/dL Creatinine (0.52-1.04) mg/dL Glucose 398 H (74-99) mg/dL POC Glucose (mg/dL) 128 H 127 H (70-110) mg/dL Calcium 8.0 L (8.4-10.2) mg/dL 05/18/23 05/18/23 05/18/23 Range/Units 08:16 09:13 09:24 RBC 3.22 L (3.80-5.40) m/uL Hgb 9.4 L (11.4-16.0) gm/dL Hct 29.9 L (34.0-46.0) % Sodium (137-145) mmol/L Potassium (3.5-5.1) mmol/L Carbon Dioxide (22-30) mmol/L BUN (7-17) mg/dL Creatinine (0.52-1.04) mg/dL Glucose (74-99) mg/dL POC Glucose (mg/dL) 211 H 426 H (70-110) mg/dL Calcium (8.4-10.2) mg/dL 05/18/23 05/18/23 05/18/23 Range/Units 10:06 11:08 12:08 RBC (3.80-5.40) m/uL Hgb (11.4-16.0) gm/dL Hct (34.0-46.0) % Sodium (137-145) mmol/L Potassium (3.5-5.1) mmol/L Carbon Dioxide (22-30) mmol/L BUN (7-17) mg/dL Creatinine (0.52-1.04) mg/dL Glucose (74-99) mg/dL POC Glucose (mg/dL) 474 H 483 H 442 H (70-110) mg/dL Calcium (8.4-10.2) mg/dL Assessment and Plan Assessment: Assessment and plan * Hyperosmolar hyperglycemic state * Diabetes mellitus insulin-dependent * Metabolic acidosis * Nausea and hyperkalemia * Fall at home * Hypertension * Hypothyroid * Restless leg syndrome * History of depression * Gastroesophageal reflux disease * History of COPD * Coronary artery disease * In regards to hyperosmolar state, serial electrolyte panel ordered continue patient on insulin drip, continue patient on IV fluid resuscitation follow-up on electrolyte panel, diet advanced to diabetic diet * In regards to diabetes mellitus, continue patient on insulin drip and fluid resuscitation D5/0.5 saline without potassium, once blood glucose and serum bicarbonate levels improved patient will transition to home insulin regimen likely by 05/19 * In regards to fall and back and pelvic pain CT pelvis ordered to rule out fracture * In regards to hypertension continue patient on metoprolol * In regards to dyslipidemia continue Lipitor * In regards to hypothyroid continue Synthyroid * Regards to recent fall, will need physical therapy occupational therapy evaluation * CODE STATUS is full code
[2023-05-18] MEDS: DEXTROSE 5%-0.45% NACL 1,000 ML IV SCH (12:56)
[2023-05-18 14:18] LABS: Glucose,Whole Blood 383 mg/dL (70-110)
[2023-05-18 14:35] LABS: Potassium 5.2 mmol/L (3.5-5.1)
[2023-05-18] MEDS: HYDROcodone/APAP 7.5-325MG 1 EACH TAB PO PRN (15:07)
[2023-05-18 15:18] LABS: Glucose,Whole Blood 233 mg/dL (70-110)
[2023-05-18 16:14] LABS: Glucose,Whole Blood 158 mg/dL (70-110)
--- NOTE | 2023-05-18 16:47 | CT ---
EXAMINATION TYPE: CT pelvis wo con CT DLP: 317.3 mGycm, Automated exposure control for dose reduction was used. DATE OF EXAM: 05/18/2023 4:40 PM COMPARISON: CT abdomen pelvis most recent from CLINICAL INDICATION:Female, 63 years old with history of Status post fall, being evaluated for pelvic fract; fall right side pelvic pain TECHNIQUE: Axial CT of the abdomen and pelvis. Sagittal and coronal reformats were created on a [employer] workstation. Contrast used: (none if empty) Oral contrast used: without Oral Contrast (none if empty) FINDINGS: BLADDER: Unremarkable REPRODUCTIVE: Unremarkable. BOWEL: No evidence of bowel obstruction. PERITONEUM/RETROPERITONEUM: No evidence of pneumoperitoneum or free fluid. VASCULATURE: Moderate atherosclerotic calcifications are present throughout the abdominal aorta and i ts branches. No evidence of aortic aneurysm. MUSCULOSKELETAL: No acute osseous abnormalities. Multilevel degenerative changes of the lower lumbar spine. LYMPH NODES: No gross evidence for lymphadenopathy. SOFT TISSUE/ABDOMINAL WALL: Unremarkable IMPRESSION: No acute process.
[2023-05-18 17:06] LABS: Glucose,Whole Blood 75 mg/dL (70-110)
[2023-05-18 17:39] LABS: Glucose,Whole Blood 73 mg/dL (70-110)
[2023-05-18 18:09] LABS: Glucose,Whole Blood 56 mg/dL (70-110)
[2023-05-18 18:37] LABS: Glucose,Whole Blood 190 mg/dL (70-110)
[2023-05-18 18:55] LABS: Glucose,Whole Blood 157 mg/dL (70-110)
[2023-05-18 19:12] LABS: Glucose,Whole Blood 137 mg/dL (70-110)
[2023-05-18 19:36] LABS: Potassium 4.8 mmol/L (3.5-5.1)
[2023-05-18 20:02] LABS: Glucose,Whole Blood 128 mg/dL (70-110)
[2023-05-18 21:05] LABS: Glucose,Whole Blood 167 mg/dL (70-110)
[2023-05-18] MEDS: ATORVASTATIN 80 MG TAB PO SCH (21:05)
[2023-05-18] MEDS: METOPROLOL SUCCINATE (ER) 25 MG TAB.ER.24H PO SCH (21:05)
[2023-05-18] MEDS: MIRTAZAPINE 15 MG TAB PO SCH (21:06)
[2023-05-18 22:05] LABS: Glucose,Whole Blood 159 mg/dL (70-110)
[2023-05-18 23:00] LABS: Glucose,Whole Blood 156 mg/dL (70-110)
[2023-05-18 23:17] LABS: Potassium 4.9 mmol/L (3.5-5.1)
[2023-05-19 00:15] LABS: Glucose,Whole Blood 209 mg/dL (70-110)
[2023-05-19] MEDS: DEXTROSE 5%-0.45% NACL 1,000 ML IV SCH ×2 (00:30→13:08)
[2023-05-19 01:10] LABS: Glucose,Whole Blood 247 mg/dL (70-110)
[2023-05-19 02:19] LABS: Glucose,Whole Blood 267 mg/dL (70-110)
[2023-05-19 03:21] LABS: Glucose,Whole Blood 255 mg/dL (70-110)
[2023-05-19] MEDS: HYDROcodone/APAP 7.5-325MG 1 EACH TAB PO PRN ×2 (04:11→15:31)
[2023-05-19 04:15] LABS: Glucose,Whole Blood 215 mg/dL (70-110)
[2023-05-19 05:10] LABS: Glucose,Whole Blood 232 mg/dL (70-110)
[2023-05-19 06:07] LABS: Glucose,Whole Blood 188 mg/dL (70-110)
[2023-05-19] MEDS: LEVOTHYROXINE 100 MCG TAB PO SCH (06:33)
[2023-05-19] MEDS: PANTOPRAZOLE 40 MG TABLET PO SCH ×2 (06:33→18:22)
[2023-05-19] MEDS: LEVOTHYROXINE 50 MCG TAB PO SCH (06:33)
[2023-05-19 06:54] LABS: HCT 26.3 % (34.0-46.0); MCH 30.8 pg (25.0-35.0); MCV 90.4 fL (80.0-100.0); Mean Platelet Volume 8.2; Platelet Count 143 k/uL (150-450); RBC 2.91 m/uL (3.80-5.40); RDW 14.2 % (11.5-15.5); WBC 6.1 k/uL (3.8-10.6)
[2023-05-19 07:02] LABS: Glucose,Whole Blood 224 mg/dL (70-110)
[2023-05-19 08:01] LABS: African American GFR (CKD) 84 (>60 ml/min/1.73 sqM); Anion Gap 6 mmol/L; Blood Urea Nitrogen 19 mg/dL (7-17); Calcium 7.9 mg/dL (8.4-10.2); Carbon Dioxide 23 mmol/L (22-30); Chloride 105 mmol/L (98-107); Glucose 188 mg/dL (74-99); Non-African American GFR(CKD) 73 (>60 ml/min/1.73 sqM); Potassium 5.3 mmol/L (3.5-5.1); Sodium 134 mmol/L (137-145)
[2023-05-19 08:06] LABS: Glucose,Whole Blood 215 mg/dL (70-110)
[2023-05-19 09:01] LABS: Glucose,Whole Blood 281 mg/dL (70-110)
[2023-05-19 10:07] LABS: Glucose,Whole Blood 331 mg/dL (70-110)
[2023-05-19] MEDS: ASPIRIN 81 MG PO SCH (10:10)
[2023-05-19] MEDS: FERROUS SULFATE 325 MG TAB PO SCH (10:10)
[2023-05-19] MEDS: LORATADINE 10 MG TAB PO SCH (10:11)
[2023-05-19] MEDS: MAGNESIUM OXIDE 400 MG TAB PO SCH (10:11)
[2023-05-19] MEDS: GABAPENTIN 300 MG CAP PO SCH ×3 (10:11→20:19)
[2023-05-19] MEDS: ISOSORBIDE MONONITRATE ER 30 MG TAB.ER.24H PO SCH (10:11)
[2023-05-19] MEDS: NYSTATIN 100,000 UNIT/GM POWD 15 GM TOPICAL SCH ×3 (10:12→20:19)
[2023-05-19] MEDS: CHOLECALCIFEROL 125 MCG (5000 IU) TABLET PO SCH ×3 (10:12→20:18)
[2023-05-19] MEDS: ENOXAPARIN 40 MG/0.4 ML SYRINGE SQ SCH (10:12)
[2023-05-19] MEDS: VENLAFAXINE HCL ER 75 MG CAP PO SCH (10:13)
[2023-05-19 11:11] LABS: Glucose,Whole Blood 295 mg/dL (70-110)
[2023-05-19 12:01] VITALS: BMI 25.7
[2023-05-19 12:21] LABS: African American GFR (CKD) 69 (>60 ml/min/1.73 sqM); Anion Gap 6 mmol/L; Blood Urea Nitrogen 17 mg/dL (7-17); Calcium 7.9 mg/dL (8.4-10.2); Carbon Dioxide 21 mmol/L (22-30); Chloride 106 mmol/L (98-107); Glucose 250 mg/dL (74-99); Non-African American GFR(CKD) 60 (>60 ml/min/1.73 sqM); Potassium 5.3 mmol/L (3.5-5.1); Sodium 133 mmol/L (137-145)
[2023-05-19] MEDS: SODIUM CHLORIDE 0.9% 1,000 ML IV SCH (13:08)
--- NOTE | 2023-05-19 13:10 | P.PN ---
Subjective Progress Note Date: 05/19/23 * 63-year-old lady with past medical history significant for coronary artery disease, diabetes mellitus, hypertension, hyperlipidemia, history of DVT, CVA hypothyroid who presents to the emergency department with complains of shortness of breath. Patient was recently admitted and discharged on 05/05/23 for chest pain. Patient was seen by cardiology, CT chest was done which was negative for pulmonary embolism during previous hospitalization * Patient says she has been having shortness of breath and back discomfort ongoing since discharge. She did try her nebulizer breathing treatment with minimal improvement. She complained of mild chest discomfort, patient states after being discharged from the hospital she did have a fall at home and did complain of right hip pain and low back pain on presentation. * She mentioned she did not have supplies for insulin pump for 48 hours * Workup initiated in ER included an x-ray hip which was negative for fracture, chest x-ray was obtained which did show calcified granulomas pulmonary vessels were within normal limits, no pneumothorax was noted * At work obtained in ED included CBC which were WBC count of 6.8 hemoglobin 11.4 platelet count of 198, INR 0.9, * Venous blood gas obtained showed pH 7.25 pCO2 43 bicarb of 19 * Serum chemistry showed sodium 132 potassium 4.2 chloride 96 come directly 16 BU and 41 and creatinine 2.03, follow-up creatinine 1.68 * Blood glucose obtained at the time of admission was greater than 600 * Serum lactate of pain of 4.7 followed by 4.2 * Basic tone levels were negative, urine osmole 07/19/1998 * Patient was treated for hyperosmolar hyperglycemic state, given insulin bolus followed by insulin drip and IV fluid and serial electrolyte panel * 05/18/2023: Patient seen and evaluated bedside, blood work reviewed, hemoglobin is 9.4, serum chemistry showed sodium 1:30 potassium 5.4, carbon dioxide 14 BU and 12 creatinine 0.88. Plan of care discussed with patient mask, IV fluid decrease to D5/0.45 saline, potassium removed from IV fluid, follow-up potassium levels to be checked, patient given an amp of bicarbonate as well, patient is able to tolerate diet and we will advance diet and follow-up on serum chemistries. We will hold off on initiating patient insulin pump for another 12-24 hours. Follow-up on serum chemistry * 05/19/2023: Patient seen and evaluated bedside, patient transition from insulin drip to insulin, continue electrolyte panel follow-up on serum chemistry. CT pelvis negative for fracture will need PTOT evaluate REVIEW OF SYSTEMS:, fatigue, malaise, generalized weakness, improved fall at home IMPROVED CONSTITUTIONAL: No fever, no malaise, no fatigue. HEENT: No recent visual problems or hearing problems. Denied any sore throat. CARDIOVASCULAR: No chest pain, orthopnea, PND, no palpitations, no syncope. PULMONARY: No shortness of breath, no cough, no hemoptysis. GASTROINTESTINAL: No diarrhea, no nausea, no vomiting, no abdominal pain. NEUROLOGICAL: No headaches, no weakness, no numbness. HEMATOLOGICAL: Denies any bleeding or petechiae. GENITOURINARY: Denies any burning micturition, frequency, or urgency. MUSCULOSKELETAL/RHEUMATOLOGICAL: fatigue, malaise, generalized weakness IMPROVED ENDOCRINE: Denies any polyuria or polydipsia. PHYSICAL EXAMINATION: GENERAL: The patient is alert and oriented x3, ill appearance HEENT: Pupils are round and equally reacting to light. EOMI. CARDIOVASCULAR: S1 and S2 present. No murmurs, rubs, or gallops. PULMONARY: Decreased breath sounds bilaterally ABDOMEN: Soft, nontender, nondistended, normoactive bowel sounds. No palpable organomegaly. MUSCULOSKELETAL: No joint swelling or deformity. EXTREMITIES: No cyanosis, clubbing, or pedal edema. NEUROLOGICAL: Gross neurological examination did not reveal any focal deficits. Objective - Vital Signs Vital signs: Vital Signs Temp 98.6 F 05/19/23 08:53 Pulse 81 05/19/23 08:53 Resp 18 05/19/23 08:53 BP 108/71 05/19/23 08:53 Pulse Ox 99 05/19/23 08:53 FiO2 Intake & Output 05/18/23 05/19/23 05/19/23 18:59 06:59 18:59 Intake Total 399.943 118.043 11.489 Balance 399.943 118.043 11.489 Weight 68.039 kg Intake: Intake, IV Titration 39.943 18.043 11.489 Amount Insulin Regular 100 unit 39.943 18.043 11.489 In Sodium Chloride 0.9% 100 ml @ 0.1 UNITS/KG/HR 6.872 mls/hr IV .[id number] [facility] Rx#:[id number] Oral 360 100 Other: Voiding Method Toilet Toilet # Voids 1 1 - Labs CBC & Chem 7: 05/19/23 06:25 05/19/23 11:21 Labs: Abnormal Lab Results - Last 24 Hours (Table) 05/18/23 05/18/23 05/18/23 Range/Units 13:40 14:16 15:13 RBC (3.80-5.40) m/uL Hgb (11.4-16.0) gm/dL Hct (34.0-46.0) % Plt Count (150-450) k/uL Sodium 129 L (137-145) mmol/L Potassium 5.2 H (3.5-5.1) mmol/L Carbon Dioxide 17 L (22-30) mmol/L BUN (7-17) mg/dL Glucose (74-99) mg/dL POC Glucose (mg/dL) 383 H 233 H (70-110) mg/dL Calcium (8.4-10.2) mg/dL 05/18/23 05/18/23 05/18/23 Range/Units 16:06 18:07 18:09 RBC (3.80-5.40) m/uL Hgb (11.4-16.0) gm/dL Hct (34.0-46.0) % Plt Count (150-450) k/uL Sodium 133 L (137-145) mmol/L Potassium (3.5-5.1) mmol/L Carbon Dioxide 18 L (22-30) mmol/L BUN (7-17) mg/dL Glucose (74-99) mg/dL POC Glucose (mg/dL) 158 H 56 L (70-110) mg/dL Calcium (8.4-10.2) mg/dL 05/18/23 05/18/23 05/18/23 Range/Units 18:26 18:43 19:00 RBC (3.80-5.40) m/uL Hgb (11.4-16.0) gm/dL Hct (34.0-46.0) % Plt Count (150-450) k/uL Sodium (137-145) mmol/L Potassium (3.5-5.1) mmol/L Carbon Dioxide (22-30) mmol/L BUN (7-17) mg/dL Glucose (74-99) mg/dL POC Glucose (mg/dL) 190 H 157 H 137 H (70-110) mg/dL Calcium (8.4-10.2) mg/dL 05/18/23 05/18/23 05/18/23 Range/Units 20:01 20:54 22:03 RBC (3.80-5.40) m/uL Hgb (11.4-16.0) gm/dL Hct (34.0-46.0) % Plt Count (150-450) k/uL Sodium (137-145) mmol/L Potassium (3.5-5.1) mmol/L Carbon Dioxide (22-30) mmol/L BUN (7-17) mg/dL Glucose (74-99) mg/dL POC Glucose (mg/dL) 128 H 167 H 159 H (70-110) mg/dL Calcium (8.4-10.2) mg/dL 05/18/23 05/18/23 05/19/23 Range/Units 22:44 22:58 00:13 RBC (3.80-5.40) m/uL Hgb (11.4-16.0) gm/dL Hct (34.0-46.0) % Plt Count (150-450) k/uL Sodium 133 L (137-145) mmol/L Potassium (3.5-5.1) mmol/L Carbon Dioxide 20 L (22-30) mmol/L BUN (7-17) mg/dL Glucose (74-99) mg/dL POC Glucose (mg/dL) 156 H 209 H (70-110) mg/dL Calcium (8.4-10.2) mg/dL 05/19/23 05/19/23 05/19/23 Range/Units 01:09 02:18 03:20 RBC (3.80-5.40) m/uL Hgb (11.4-16.0) gm/dL Hct (34.0-46.0) % Plt Count (150-450) k/uL Sodium (137-145) mmol/L Potassium (3.5-5.1) mmol/L Carbon Dioxide (22-30) mmol/L BUN (7-17) mg/dL Glucose (74-99) mg/dL POC Glucose (mg/dL) 247 H 267 H 255 H (70-110) mg/dL Calcium (8.4-10.2) mg/dL 05/19/23 05/19/23 05/19/23 Range/Units 04:14 05:09 06:06 RBC (3.80-5.40) m/uL Hgb (11.4-16.0) gm/dL Hct (34.0-46.0) % Plt Count (150-450) k/uL Sodium (137-145) mmol/L Potassium (3.5-5.1) mmol/L Carbon Dioxide (22-30) mmol/L BUN (7-17) mg/dL Glucose (74-99) mg/dL POC Glucose (mg/dL) 215 H 232 H 188 H (70-110) mg/dL Calcium (8.4-10.2) mg/dL 05/19/23 05/19/23 05/19/23 Range/Units 06:25 06:25 07:01 RBC 2.91 L (3.80-5.40) m/uL Hgb 9.0 L (11.4-16.0) gm/dL Hct 26.3 L (34.0-46.0) % Plt Count 143 L (150-450) k/uL Sodium 134 L (137-145) mmol/L Potassium 5.3 H (3.5-5.1) mmol/L Carbon Dioxide (22-30) mmol/L BUN 19 H (7-17) mg/dL Glucose 188 H (74-99) mg/dL POC Glucose (mg/dL) 224 H (70-110) mg/dL Calcium 7.9 L (8.4-10.2) mg/dL 05/19/23 05/19/23 05/19/23 Range/Units 08:04 08:59 10:05 RBC (3.80-5.40) m/uL Hgb (11.4-16.0) gm/dL Hct (34.0-46.0) % Plt Count (150-450) k/uL Sodium (137-145) mmol/L Potassium (3.5-5.1) mmol/L Carbon Dioxide (22-30) mmol/L BUN (7-17) mg/dL Glucose (74-99) mg/dL POC Glucose (mg/dL) 215 H 281 H 331 H (70-110) mg/dL Calcium (8.4-10.2) mg/dL 05/19/23 05/19/23 Range/Units 11:09 11:21 RBC (3.80-5.40) m/uL Hgb (11.4-16.0) gm/dL Hct (34.0-46.0) % Plt Count (150-450) k/uL Sodium 133 L (137-145) mmol/L Potassium 5.3 H (3.5-5.1) mmol/L Carbon Dioxide 21 L (22-30) mmol/L BUN (7-17) mg/dL Glucose 250 H (74-99) mg/dL POC Glucose (mg/dL) 295 H (70-110) mg/dL Calcium 7.9 L (8.4-10.2) mg/dL Assessment and Plan Assessment: Assessment and plan * Hyperosmolar hyperglycemic state RESOLVED * Diabetes mellitus insulin-dependent * Metabolic acidosis * Nausea and hyperkalemia * Fall at home * Hypertension * Hypothyroid * Restless leg syndrome * History of depression * Gastroesophageal reflux disease * History of COPD * Coronary artery disease * In regards to hyperosmolar state, follow-up on electrolyte panel, diet advanced to diabetic diet. N drip, placed back on insulin pump follow-up on potassium levels * In regards to diabetes mellitus, patient was treated with insulin drip and IV fluids, transition back to insulin pump will continue to check electrolyte * In regards to fall and back and pelvic pain CT pelvis ordered to ruled out fracture. Will need workup with therapy * In regards to hypertension continue patient on metoprolol * In regards to dyslipidemia continue Lipitor * In regards to hypothyroid continue Synthyroid * Regards to recent fall, will need physical therapy occupational therapy evaluation, potential discharge home within the next 24 hours * CODE STATUS is full code Time with Patient: Greater than 30
[2023-05-19] MEDS ORDERED: SODIUM ZIRCONIUM CYCLOSILICATE 10 GM PACKET PO ONE (14:13)
[2023-05-19 16:46] LABS: Glucose,Whole Blood 87 mg/dL (70-110)
[2023-05-19 17:15] LABS: Glucose,Whole Blood 103 mg/dL (70-110)
[2023-05-19 18:51] LABS: African American GFR (CKD) 74 (>60 ml/min/1.73 sqM); Anion Gap 9 mmol/L; Blood Urea Nitrogen 18 mg/dL (7-17); Calcium 8.3 mg/dL (8.4-10.2); Carbon Dioxide 21 mmol/L (22-30); Chloride 107 mmol/L (98-107); Glucose 66 mg/dL (74-99); Non-African American GFR(CKD) 64 (>60 ml/min/1.73 sqM); Sodium 137 mmol/L (137-145)
[2023-05-19 19:27] LABS: Glucose,Whole Blood 130 mg/dL (70-110)
[2023-05-19] MEDS: MIRTAZAPINE 15 MG TAB PO SCH (20:19)
[2023-05-19] MEDS: METOPROLOL SUCCINATE (ER) 25 MG TAB.ER.24H PO SCH (20:19)
[2023-05-19] MEDS: ATORVASTATIN 80 MG TAB PO SCH (20:19)
[2023-05-19 22:00] LABS: Glucose,Whole Blood 83 mg/dL (70-110)
[2023-05-20 00:10] LABS: Glucose,Whole Blood 59 mg/dL (70-110)
[2023-05-20 00:29] LABS: Glucose,Whole Blood 84 mg/dL (70-110)
[2023-05-20 02:17] LABS: Glucose,Whole Blood 143 mg/dL (70-110)
[2023-05-20] MEDS: SODIUM CHLORIDE 0.9% 1,000 ML IV SCH ×3 (03:50→16:58)
[2023-05-20 03:58] LABS: Glucose,Whole Blood 261 mg/dL (70-110)
[2023-05-20 06:06] LABS: Glucose,Whole Blood 301 mg/dL (70-110)
[2023-05-20] MEDS: PANTOPRAZOLE 40 MG TABLET PO SCH ×2 (06:15→16:58)
[2023-05-20] MEDS: INSULIN ASPART (NovoLOG) 100 UNIT/ML VIAL SQ SCH ×4 (06:15→20:54)
[2023-05-20] MEDS: LEVOTHYROXINE 100 MCG TAB PO SCH (06:15)
[2023-05-20] MEDS: LEVOTHYROXINE 50 MCG TAB PO SCH (06:15)
[2023-05-20 08:13] LABS: Glucose,Whole Blood 245 mg/dL (70-110)
[2023-05-20 09:27] VITALS: TEMP 98.3
[2023-05-20] MEDS: ISOSORBIDE MONONITRATE ER 30 MG TAB.ER.24H PO SCH (09:30)
[2023-05-20] MEDS: FERROUS SULFATE 325 MG TAB PO SCH (09:30)
[2023-05-20] MEDS: GABAPENTIN 300 MG CAP PO SCH ×3 (09:30→20:59)
[2023-05-20] MEDS: MAGNESIUM OXIDE 400 MG TAB PO SCH (09:30)
[2023-05-20] MEDS: HYDROcodone/APAP 7.5-325MG 1 EACH TAB PO PRN ×2 (09:30→20:59)
[2023-05-20] MEDS: CHOLECALCIFEROL 125 MCG (5000 IU) TABLET PO SCH ×3 (09:30→21:00)
[2023-05-20] MEDS: VENLAFAXINE HCL ER 75 MG CAP PO SCH (09:30)
[2023-05-20] MEDS: ASPIRIN 81 MG PO SCH (09:30)
[2023-05-20] MEDS: LORATADINE 10 MG TAB PO SCH (09:30)
[2023-05-20] MEDS: NYSTATIN 100,000 UNIT/GM POWD 15 GM TOPICAL SCH ×3 (09:31→21:01)
[2023-05-20] MEDS: ENOXAPARIN 40 MG/0.4 ML SYRINGE SQ SCH (09:33)
[2023-05-20 10:07] LABS: Glucose,Whole Blood 302 mg/dL (70-110)
[2023-05-20 10:29] LABS: African American GFR (CKD) 77 (>60 ml/min/1.73 sqM); Anion Gap 13 mmol/L; Blood Urea Nitrogen 18 mg/dL (7-17); Calcium 8.3 mg/dL (8.4-10.2); Carbon Dioxide 20 mmol/L (22-30); Chloride 105 mmol/L (98-107); Glucose 236 mg/dL (74-99); Non-African American GFR(CKD) 67 (>60 ml/min/1.73 sqM); Potassium 4.8 mmol/L (3.5-5.1); Sodium 138 mmol/L (137-145)
[2023-05-20 12:06] LABS: Glucose,Whole Blood 374 mg/dL (70-110)
--- NOTE | 2023-05-20 13:44 | P.PN ---
Subjective Progress Note Date: 05/20/23 * 63-year-old lady with past medical history significant for coronary artery disease, diabetes mellitus, hypertension, hyperlipidemia, history of DVT, CVA hypothyroid who presents to the emergency department with complains of shortness of breath. Patient was recently admitted and discharged on 05/05/23 for chest pain. Patient was seen by cardiology, CT chest was done which was negative for pulmonary embolism during previous hospitalization * Patient says she has been having shortness of breath and back discomfort ongoing since discharge. She did try her nebulizer breathing treatment with minimal improvement. She complained of mild chest discomfort, patient states after being discharged from the hospital she did have a fall at home and did complain of right hip pain and low back pain on presentation. * She mentioned she did not have supplies for insulin pump for 48 hours * Workup initiated in ER included an x-ray hip which was negative for fracture, chest x-ray was obtained which did show calcified granulomas pulmonary vessels were within normal limits, no pneumothorax was noted * At work obtained in ED included CBC which were WBC count of 6.8 hemoglobin 11.4 platelet count of 198, INR 0.9, * Venous blood gas obtained showed pH 7.25 pCO2 43 bicarb of 19 * Serum chemistry showed sodium 132 potassium 4.2 chloride 96 come directly 16 BU and 41 and creatinine 2.03, follow-up creatinine 1.68 * Blood glucose obtained at the time of admission was greater than 600 * Serum lactate of pain of 4.7 followed by 4.2 * Basic tone levels were negative, urine osmole 07/19/1998 * Patient was treated for hyperosmolar hyperglycemic state, given insulin bolus followed by insulin drip and IV fluid and serial electrolyte panel * 05/18/2023: Patient seen and evaluated bedside, blood work reviewed, hemoglobin is 9.4, serum chemistry showed sodium 1:30 potassium 5.4, carbon dioxide 14 BU and 12 creatinine 0.88. Plan of care discussed with patient mask, IV fluid decrease to D5/0.45 saline, potassium removed from IV fluid, follow-up potassium levels to be checked, patient given an amp of bicarbonate as well, patient is able to tolerate diet and we will advance diet and follow-up on serum chemistries. We will hold off on initiating patient insulin pump for another 12-24 hours. Follow-up on serum chemistry * 05/19/2023: Patient seen and evaluated bedside, patient transition from insulin drip to insulin, continue electrolyte panel follow-up on serum chemistry. CT pelvis negative for fracture will need PTOT evaluate * 05/20/2023: Patient seen and evaluated bedside, patient insulin pump battery , at this time patient is placed on correctional insulin. He'll have pump does not start working patient given dose of Lantus 15 units, continue correctional insulin. Follow-up on serum chemistry REVIEW OF SYSTEMS:, fatigue, malaise, generalized weakness, improved fall at home IMPROVED CONSTITUTIONAL: No fever, no malaise, no fatigue. HEENT: No recent visual problems or hearing problems. Denied any sore throat. CARDIOVASCULAR: No chest pain, orthopnea, PND, no palpitations, no syncope. PULMONARY: No shortness of breath, no cough, no hemoptysis. GASTROINTESTINAL: No diarrhea, no nausea, no vomiting, no abdominal pain. NEUROLOGICAL: No headaches, no weakness, no numbness. HEMATOLOGICAL: Denies any bleeding or petechiae. GENITOURINARY: Denies any burning micturition, frequency, or urgency. MUSCULOSKELETAL/RHEUMATOLOGICAL: fatigue, malaise, generalized weakness IMPROVED ENDOCRINE: Denies any polyuria or polydipsia. PHYSICAL EXAMINATION: GENERAL: The patient is alert and oriented x3, ill appearance HEENT: Pupils are round and equally reacting to light. EOMI. CARDIOVASCULAR: S1 and S2 present. No murmurs, rubs, or gallops. PULMONARY: Decreased breath sounds bilaterally ABDOMEN: Soft, nontender, nondistended, normoactive bowel sounds. No palpable organomegaly. MUSCULOSKELETAL: No joint swelling or deformity. EXTREMITIES: No cyanosis, clubbing, or pedal edema. NEUROLOGICAL: Gross neurological examination did not reveal any focal deficits. Objective - Vital Signs Vital signs: Vital Signs Temp 98.3 F 05/20/23 09:25 Pulse 93 05/20/23 12:05 Resp 16 05/20/23 12:05 BP 136/86 05/20/23 12:05 Pulse Ox 95 05/20/23 12:05 FiO2 Intake & Output 05/19/23 05/20/23 05/20/23 18:59 06:59 18:59 Intake Total 11.489 Balance 11.489 Weight 68.039 kg Intake: Intake, IV Titration 11.489 Amount Insulin Regular 100 unit 11.489 In Sodium Chloride 0.9% 100 ml @ 0.1 UNITS/KG/HR 6.872 mls/hr IV .[id number] [facility] Rx#:[id number] Other: Voiding Method Toilet Toilet Toilet # Voids 1 2 1 - Labs CBC & Chem 7: 05/19/23 06:25 05/20/23 08:24 Labs: Abnormal Lab Results - Last 24 Hours (Table) 05/19/23 05/19/23 05/20/23 Range/Units 17:32 19:26 00:08 Carbon Dioxide 21 L (22-30) mmol/L BUN 18 H (7-17) mg/dL Glucose 66 L (74-99) mg/dL POC Glucose (mg/dL) 130 H 59 L (70-110) mg/dL Calcium 8.3 L (8.4-10.2) mg/dL 05/20/23 05/20/23 05/20/23 Range/Units 02:05 03:56 06:02 Carbon Dioxide (22-30) mmol/L BUN (7-17) mg/dL Glucose (74-99) mg/dL POC Glucose (mg/dL) 143 H 261 H 301 H (70-110) mg/dL Calcium (8.4-10.2) mg/dL 05/20/23 05/20/23 05/20/23 Range/Units 08:02 08:24 09:55 Carbon Dioxide 20 L (22-30) mmol/L BUN 18 H (7-17) mg/dL Glucose 236 H (74-99) mg/dL POC Glucose (mg/dL) 245 H 302 H (70-110) mg/dL Calcium 8.3 L (8.4-10.2) mg/dL 05/20/23 Range/Units 11:54 Carbon Dioxide (22-30) mmol/L BUN (7-17) mg/dL Glucose (74-99) mg/dL POC Glucose (mg/dL) 374 H (70-110) mg/dL Calcium (8.4-10.2) mg/dL Assessment and Plan Assessment: Assessment and plan * Hyperosmolar hyperglycemic state RESOLVED * Diabetes mellitus insulin-dependent * Metabolic acidosis * Nausea and hyperkalemia * Fall at home * Hypertension * Hypothyroid * Restless leg syndrome * History of depression * Gastroesophageal reflux disease * History of COPD * Coronary artery disease * In regards to hyperosmolar state, follow-up on electrolyte panel, diet advanced to diabetic diet. Insulin drip discontinued, continue insulin pump battery , patient to be given Lantus * In regards to diabetes mellitus, patient was treated with insulin drip and IV fluids, transition back to insulin pump will continue to check electrolyte, patient requested to discharge her insulin pump * In regards to fall and back and pelvic pain CT pelvis ordered to ruled out fracture. Will need workup with therapy * In regards to hypertension continue patient on metoprolol * In regards to dyslipidemia continue Lipitor * In regards to hypothyroid continue Synthyroid * Regards to recent fall, will need physical therapy occupational therapy evaluation, potential discharge home within the next 24 hours * CODE STATUS is full code
[2023-05-20] MEDS ORDERED: INSULIN DETEMIR (LEVEMIR) 100 UNIT/ML SYR SQ SCH (14:00)
[2023-05-20] MEDS ORDERED: INSULIN ASPART (NovoLOG) 100 UNIT/ML VIAL SQ PRN (14:05)
[2023-05-20] MEDS ORDERED: INSULIN PUMP BASAL RATES 1 EACH MISC MISCELLANE PRN (14:05)
[2023-05-20] MEDS ORDERED: INSPUCOR MISCELLANE PRN (14:05)
[2023-05-20 14:11] LABS: Glucose,Whole Blood 350 mg/dL (70-110)
[2023-05-20 16:24] LABS: Glucose,Whole Blood 233 mg/dL (70-110)
[2023-05-20 17:58] LABS: Glucose,Whole Blood 117 mg/dL (70-110)
[2023-05-20] MEDS: INSULIN PUMP MEAL BOLUS 1 UNIT MISC MISCELLANE SCH ×2 (17:58→20:54)
[2023-05-20 20:07] LABS: Glucose,Whole Blood 138 mg/dL (70-110)
[2023-05-20] MEDS: MIRTAZAPINE 15 MG TAB PO SCH (21:00)
[2023-05-20] MEDS: METOPROLOL SUCCINATE (ER) 25 MG TAB.ER.24H PO SCH (21:00)
[2023-05-20] MEDS: ATORVASTATIN 80 MG TAB PO SCH (21:00)
[2023-05-20 22:31] LABS: Glucose,Whole Blood 134 mg/dL (70-110)
[2023-05-21 00:41] LABS: Glucose,Whole Blood 66 mg/dL (70-110)
[2023-05-21 00:58] LABS: Glucose,Whole Blood 65 mg/dL (70-110)
[2023-05-21 02:35] LABS: Glucose,Whole Blood 55 mg/dL (70-110)
[2023-05-21 02:35] LABS: Glucose,Whole Blood 146 mg/dL (70-110)
[2023-05-21 03:59] LABS: Glucose,Whole Blood 98 mg/dL (70-110)
[2023-05-21 05:46] LABS: Glucose,Whole Blood 139 mg/dL (70-110)
[2023-05-21] MEDS: INSULIN ASPART (NovoLOG) 100 UNIT/ML VIAL SQ SCH ×2 (05:54→11:52)
[2023-05-21] MEDS: INSULIN PUMP MEAL BOLUS 1 UNIT MISC MISCELLANE SCH ×2 (05:54→11:45)
[2023-05-21] MEDS: SODIUM CHLORIDE 0.9% 1,000 ML IV SCH ×2 (05:54→11:59)
[2023-05-21] MEDS: LEVOTHYROXINE 50 MCG TAB PO SCH (05:57)
[2023-05-21] MEDS: LEVOTHYROXINE 100 MCG TAB PO SCH (05:57)
[2023-05-21] MEDS: PANTOPRAZOLE 40 MG TABLET PO SCH (05:57)
[2023-05-21 08:02] LABS: Glucose,Whole Blood 225 mg/dL (70-110)
[2023-05-21] MEDS: MAGNESIUM OXIDE 400 MG TAB PO SCH (08:18)
[2023-05-21] MEDS: GABAPENTIN 300 MG CAP PO SCH (08:18)
[2023-05-21] MEDS: FERROUS SULFATE 325 MG TAB PO SCH (08:18)
[2023-05-21] MEDS: HYDROcodone/APAP 7.5-325MG 1 EACH TAB PO PRN (08:18)
[2023-05-21] MEDS: VENLAFAXINE HCL ER 75 MG CAP PO SCH (08:18)
[2023-05-21] MEDS: ASPIRIN 81 MG PO SCH (08:19)
[2023-05-21] MEDS: LORATADINE 10 MG TAB PO SCH (08:19)
[2023-05-21] MEDS: CHOLECALCIFEROL 125 MCG (5000 IU) TABLET PO SCH (08:19)
[2023-05-21] MEDS: ISOSORBIDE MONONITRATE ER 30 MG TAB.ER.24H PO SCH (08:19)
[2023-05-21] MEDS: NYSTATIN 100,000 UNIT/GM POWD 15 GM TOPICAL SCH (08:20)
[2023-05-21] MEDS: ENOXAPARIN 40 MG/0.4 ML SYRINGE SQ SCH (08:21)
[2023-05-21 10:00] LABS: Glucose,Whole Blood 233 mg/dL (70-110)
[2023-05-21 10:37] LABS: HCT 30.1 % (34.0-46.0); HGB 9.9 gm/dL (11.4-16.0); Hypochromasia Slight; MCH 30.5 pg (25.0-35.0); MCHC 32.9 g/dL (31.0-37.0); MCV 92.6 fL (80.0-100.0); Mean Platelet Volume 8.4; Platelet Count 164 k/uL (150-450); RBC 3.24 m/uL (3.80-5.40); RDW 14.3 % (11.5-15.5); WBC 6.8 k/uL (3.8-10.6)
[2023-05-21 10:50] LABS: African American GFR (CKD) 71 (>60 ml/min/1.73 sqM); Anion Gap 9 mmol/L; Blood Urea Nitrogen 23 mg/dL (7-17); Calcium 8.2 mg/dL (8.4-10.2); Carbon Dioxide 23 mmol/L (22-30); Chloride 105 mmol/L (98-107); Glucose 225 mg/dL (74-99); Non-African American GFR(CKD) 62 (>60 ml/min/1.73 sqM); Potassium 5.2 mmol/L (3.5-5.1); Sodium 137 mmol/L (137-145)
[2023-05-21 11:44] LABS: Glucose,Whole Blood 297 mg/dL (70-110)
[2023-05-21] MEDS ORDERED: INSULIN REGULAR 100 UNIT/ML VIAL (IV) IV ONE (11:45)
[2023-05-21] MEDS ORDERED: SODIUM BICARB 8.4% 50 ML SYR (1 MEQ/ML) IV ONE (11:45)
[2023-05-21] MEDS ORDERED: SODIUM ZIRCONIUM CYCLOSILICATE 10 GM PACKET PO ONE (11:45)
[2023-05-21] MEDS ORDERED: DEXTROSE 50% SYRINGE 50 ML IVP ONE (11:45)
--- NOTE | 2023-05-21 11:48 | P.PN ---
Subjective Progress Note Date: 05/21/23 63-year-old lady with past medical history significant for coronary artery disease, diabetes mellitus, hypertension, hyperlipidemia, history of DVT, CVA hypothyroid who presents to the emergency department with complains of shortness of breath. Patient was recently admitted and discharged on 05/05/23 for chest pain. Patient was seen by cardiology, CT chest was done which was negative for pulmonary embolism during previous hospitalization * Patient says she has been having shortness of breath and back discomfort ongoing since discharge. She did try her nebulizer breathing treatment with minimal improvement. She complained of mild chest discomfort, patient states after being discharged from the hospital she did have a fall at home and did complain of right hip pain and low back pain on presentation. * She mentioned she did not have supplies for insulin pump for 48 hours * Workup initiated in ER included an x-ray hip which was negative for fracture, chest x-ray was obtained which did show calcified granulomas pulmonary vessels were within normal limits, no pneumothorax was noted * At work obtained in ED included CBC which were WBC count of 6.8 hemoglobin 11.4 platelet count of 198, INR 0.9, * Venous blood gas obtained showed pH 7.25 pCO2 43 bicarb of 19 * Serum chemistry showed sodium 132 potassium 4.2 chloride 96 come directly 16 BU and 41 and creatinine 2.03, follow-up creatinine 1.68 * Blood glucose obtained at the time of admission was greater than 600 * Serum lactate of pain of 4.7 followed by 4.2 * Basic tone levels were negative, urine osmole 07/19/1998 * Patient was treated for hyperosmolar hyperglycemic state, given insulin bolus followed by insulin drip and IV fluid and serial electrolyte panel * 05/18/2023: Patient seen and evaluated bedside, blood work reviewed, hemoglobin is 9.4, serum chemistry showed sodium 1:30 potassium 5.4, carbon dioxide 14 BU and 12 creatinine 0.88. Plan of care discussed with patient mask, IV fluid decrease to D5/0.45 saline, potassium removed from IV fluid, follow-up potassium levels to be checked, patient given an amp of bicarbonate as well, patient is able to tolerate diet and we will advance diet and follow-up on serum chemistries. We will hold off on initiating patient insulin pump for another 12-24 hours. Follow-up on serum chemistry * 05/19/2023: Patient seen and evaluated bedside, patient transition from insulin drip to insulin, continue electrolyte panel follow-up on serum chemistry. CT pelvis negative for fracture will need PTOT evaluate * 05/20/2023: Patient seen and evaluated bedside, patient insulin pump battery , at this time patient is placed on correctional insulin. He'll have pump does not start working patient given dose of Lantus 15 units, continue correctional insulin. Follow-up on serum chemistry * 05/21/2023: Patient seen and evaluated bedside, patient is alert and oriented 4, care plan discussed with her continue insulin pump, serum bicarbonate 23, transient potassium of 5.2 which will be replaced blood glucose ranging between 225 2-97, patient to be discharged home later today once potassium lev els improved, follow-up potassium ordered correction ordered for hyperkalemia REVIEW OF SYSTEMS:, fatigue, malaise, generalized weakness, improved fall at home IMPROVED CONSTITUTIONAL: No fever, no malaise, no fatigue. HEENT: No recent visual problems or hearing problems. Denied any sore throat. CARDIOVASCULAR: No chest pain, orthopnea, PND, no palpitations, no syncope. PULMONARY: No shortness of breath, no cough, no hemoptysis. GASTROINTESTINAL: No diarrhea, no nausea, no vomiting, no abdominal pain. NEUROLOGICAL: No headaches, no weakness, no numbness. HEMATOLOGICAL: Denies any bleeding or petechiae. GENITOURINARY: Denies any burning micturition, frequency, or urgency. MUSCULOSKELETAL/RHEUMATOLOGICAL: fatigue, malaise, generalized weakness IMPROVED ENDOCRINE: Denies any polyuria or polydipsia. PHYSICAL EXAMINATION: GENERAL: The patient is alert and oriented x3, appearing well HEENT: Pupils are round and equally reacting to light. EOMI. CARDIOVASCULAR: S1 and S2 present. No murmurs, rubs, or gallops. PULMONARY: Improved breath sounds bilaterally ABDOMEN: Soft, nontender, nondistended, normoactive bowel sounds. No palpable organomegaly. MUSCULOSKELETAL: No joint swelling or deformity. EXTREMITIES: No cyanosis, clubbing, or pedal edema. NEUROLOGICAL: Gross neurological examination did not reveal any focal deficits. Assessment and plan * Hyperosmolar hyperglycemic state RESOLVED * Diabetes mellitus insulin-dependent * Metabolic acidosis * Nausea and hyperkalemia * Fall at home * Hypertension * Hypothyroid * Restless leg syndrome * History of depression * Gastroesophageal reflux disease * History of COPD * Coronary artery disease * In regards to hyperosmolar state, , diet advanced to diabetic diet. Insulin drip discontinued, continue insulin pump upon discharge, follow-up with primary banana handler, electrolyte panel reviewed within normal limits * In regards to diabetes mellitus, patient was treated with insulin drip and IV fluids, transition back to insulin pump will continue to check electrolyte, patient requested to be compliant with her insulin pump and follow-up with endocrinology * In regards to fall and back and pelvic pain CT pelvis ordered to ruled out fracture, patient stable for discharge home ambulating in the hallway * In regards to hypertension continue patient on metoprolol * In regards to dyslipidemia continue Lipitor * In regards to hypothyroid continue Synthyroid * CODE STATUS is full code Objective - Vital Signs Vital signs: Vital Signs Temp 98.3 F 05/20/23 09:25 Pulse 87 05/21/23 08:12 Resp 17 05/21/23 08:12 BP 160/80 05/21/23 08:12 Pulse Ox 97 05/21/23 08:12 FiO2 Intake & Output 05/20/23 05/21/23 05/21/23 18:59 06:59 18:59 Intake Total 240 420 Balance 240 420 Intake: Oral 240 420 Other: Voiding Method Toilet Toilet Toilet # Voids 1 2 - Labs CBC & Chem 7: 05/21/23 10:13 05/21/23 10:13 Labs: Abnormal Lab Results - Last 24 Hours (Table) 05/20/23 05/20/23 05/20/23 Range/Units 11:54 14:01 16:09 RBC (3.80-5.40) m/uL Hgb (11.4-16.0) gm/dL Hct (34.0-46.0) % Potassium (3.5-5.1) mmol/L BUN (7-17) mg/dL Glucose (74-99) mg/dL POC Glucose (mg/dL) 374 H 350 H 233 H (70-110) mg/dL Calcium (8.4-10.2) mg/dL 05/20/23 05/20/23 05/20/23 Range/Units 17:56 20:05 22:29 RBC (3.80-5.40) m/uL Hgb (11.4-16.0) gm/dL Hct (34.0-46.0) % Potassium (3.5-5.1) mmol/L BUN (7-17) mg/dL Glucose (74-99) mg/dL POC Glucose (mg/dL) 117 H 138 H 134 H (70-110) mg/dL Calcium (8.4-10.2) mg/dL 05/21/23 05/21/23 05/21/23 Range/Units 00:28 00:47 02:15 RBC (3.80-5.40) m/uL Hgb (11.4-16.0) gm/dL Hct (34.0-46.0) % Potassium (3.5-5.1) mmol/L BUN (7-17) mg/dL Glucose (74-99) mg/dL POC Glucose (mg/dL) 66 L 65 L 55 L (70-110) mg/dL Calcium (8.4-10.2) mg/dL 05/21/23 05/21/23 05/21/23 Range/Units 02:34 05:44 08:01 RBC (3.80-5.40) m/uL Hgb (11.4-16.0) gm/dL Hct (34.0-46.0) % Potassium (3.5-5.1) mmol/L BUN (7-17) mg/dL Glucose (74-99) mg/dL POC Glucose (mg/dL) 146 H 139 H 225 H (70-110) mg/dL Calcium (8.4-10.2) mg/dL 05/21/23 05/21/23 05/21/23 Range/Units 09:57 10:13 10:13 RBC 3.24 L (3.80-5.40) m/uL Hgb 9.9 L (11.4-16.0) gm/dL Hct 30.1 L (34.0-46.0) % Potassium 5.2 H (3.5-5.1) mmol/L BUN 23 H (7-17) mg/dL Glucose 225 H (74-99) mg/dL POC Glucose (mg/dL) 233 H (70-110) mg/dL Calcium 8.2 L (8.4-10.2) mg/dL 05/21/23 Range/Units 11:42 RBC (3.80-5.40) m/uL Hgb (11.4-16.0) gm/dL Hct (34.0-46.0) % Potassium (3.5-5.1) mmol/L BUN (7-17) mg/dL Glucose (74-99) mg/dL POC Glucose (mg/dL) 297 H (70-110) mg/dL Calcium (8.4-10.2) mg/dL
[2023-05-21 11:53] VITALS: BP 136/78; PULSE 76; RESP 16
[2023-05-21 14:04] LABS: Glucose,Whole Blood 161 mg/dL (70-110)
--- NOTE | 2023-05-21 14:57 | P.DS ---
Providers Date of admission: 05/16/23 22:04 Expected date of discharge: 05/21/23 Attending physician: Danielle Hill Primary care physician: [facility] Course: 63-year-old lady with past medical history significant for coronary artery disease, diabetes mellitus, hypertension, hyperlipidemia, history of DVT, CVA hypothyroid who presents to the emergency department with complains of shortness of breath. Patient was recently admitted and discharged on 05/05/23 for chest pain. Patient was seen by cardiology, CT chest was done which was negative for pulmonary embolism during previous hospitalization * Patient says she has been having shortness of breath and back discomfort ongoing since discharge. She did try her nebulizer breathing treatment with minimal improvement. She complained of mild chest discomfort, patient states after being discharged from the hospital she did have a fall at home and did complain of right hip pain and low back pain on presentation. * She mentioned she did not have supplies for insulin pump for 48 hours * Workup initiated in ER included an x-ray hip which was negative for fracture, chest x-ray was obtained which did show calcified granulomas pulmonary vessels were within normal limits, no pneumothorax was noted * At work obtained in ED included CBC which were WBC count of 6.8 hemoglobin 11.4 platelet count of 198, INR 0.9, * Venous blood gas obtained showed pH 7.25 pCO2 43 bicarb of 19 * Serum chemistry showed sodium 132 potassium 4.2 chloride 96 come directly 16 BU and 41 and creatinine 2.03, follow-up creatinine 1.68 * Blood glucose obtained at the time of admission was greater than 600 * Serum lactate of pain of 4.7 followed by 4.2 * Basic tone levels were negative, urine osmole 07/19/1998 * Patient was treated for hyperosmolar hyperglycemic state, given insulin bolus followed by insulin drip and IV fluid and serial electrolyte panel * 05/18/2023: Patient seen and evaluated bedside, blood work reviewed, hemoglobin is 9.4, serum chemistry showed sodium 1:30 potassium 5.4, carbon dioxide 14 BU and 12 creatinine 0.88. Plan of care discussed with patient mask, IV fluid decrease to D5/0.45 saline, potassium removed from IV fluid, follow-up potassium levels to be checked, patient given an amp of bicarbonate as well, patient is able to tolerate diet and we will advance diet and follow-up on serum chemistries. We will hold off on initiating patient insulin pump for another 12-24 hours. Follow-up on serum chemistry * 05/19/2023: Patient seen and evaluated bedside, patient transition from insulin drip to insulin, continue electrolyte panel follow-up on serum chemistry. CT pelvis negative for fracture will need PTOT evaluate * 05/20/2023: Patient seen and evaluated bedside, patient insulin pump battery , at this time patient is placed on correctional insulin. He'll have pump does not start working patient given dose of Lantus 15 units, continue correctional insulin. Follow-up on serum chemistry * 05/21/2023: Patient seen and evaluated bedside, patient is alert and oriented 4, care plan discussed with her continue insulin pump, serum bicarbonate 23, transient potassium of 5.2 which will be replaced blood glucose ranging between 225 2-97, patient to be discharged home later today once potassium levels improved, follow-up potassium ordered correction ordered for hyperkalemia, corrected REVIEW OF SYSTEMS:, fatigue, malaise, generalized weakness, improved fall at home IMPROVED CONSTITUTIONAL: No fever, no malaise, no fatigue. HEENT: No recent visual problems or hearing problems. Denied any sore throat. CARDIOVASCULAR: No chest pain, orthopnea, PND, no palpitations, no syncope. PULMONARY: No shortness of breath, no cough, no hemoptysis. GASTROINTESTINAL: No diarrhea, no nausea, no vomiting, no abdominal pain. NEUROLOGICAL: No headaches, no weakness, no numbness. HEMATOLOGICAL: Denies any bleeding or petechiae. GENITOURINARY: Denies any burning micturition, frequency, or urgency. MUSCULOSKELETAL/RHEUMATOLOGICAL: fatigue, malaise, generalized weakness IMPROVED ENDOCRINE: Denies any polyuria or polydipsia. PHYSICAL EXAMINATION: GENERAL: The patient is alert and oriented x3, appearing well HEENT: Pupils are round and equally reacting to light. EOMI. CARDIOVASCULAR: S1 and S2 present. No murmurs, rubs, or gallops. PULMONARY: Improved breath sounds bilaterally ABDOMEN: Soft, nontender, nondistended, normoactive bowel sounds. No palpable or ganomegaly. MUSCULOSKELETAL: No joint swelling or deformity. EXTREMITIES: No cyanosis, clubbing, or pedal edema. NEUROLOGICAL: Gross neurological examination did not reveal any focal deficits. Assessment and plan * Hyperosmolar hyperglycemic state RESOLVED * Diabetes mellitus insulin-dependent * Metabolic acidosis * Nausea and hyperkalemia * Fall at home * Hypertension * Hypothyroid * Restless leg syndrome * History of depression * Gastroesophageal reflux disease * History of COPD * Coronary artery disease * In regards to hyperosmolar state, , diet advanced to diabetic diet. 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, electrolyte panel reviewed within normal limits * In regards to diabetes mellitus, patient was treated with insulin drip and IV fluids, transition back to insulin pump will continue to check electrolyte, patient requested to be compliant with her insulin pump and follow-up with endocrinology * In regards to fall and back and pelvic pain CT pelvis ordered to ruled out fracture, patient stable for discharge home ambulating in the hallway * In regards to hypertension continue patient on metoprolol * In regards to dyslipidemia continue Lipitor * In regards to hypothyroid continue Synthyroid Patient Condition at Discharge: Stable Plan - Discharge Summary Discharge Rx Participant: No New Discharge Prescriptions: Continue Venlafaxine HCl [Effexor XR] 225 mg PO DAILY Pantoprazole Sodium [Protonix] 40 mg PO BID Meclizine [Antivert] 25 mg PO TID PRN PRN Reason: DIZZINESS Magnesium Oxide [Mag-Ox] 400 mg PO DAILY Levothyroxine Sodium [Synthroid] 200 mcg PO DAILY Levothyroxine Sodium [Synthroid] 50 mcg PO DAILY Cholecalciferol [Vitamin D3 (125 Mcg = 5000 Iu)] 125 mcg PO TID Cetirizine HCl [Zyrtec] 10 mg PO DAILY Acetaminophen Tab [Tylenol] 650 mg PO Q6HR PRN tab PRN Reason: Fever And/ Or Pain Aspirin EC [Ecotrin Low Dose] 81 mg PO DAILY HYDROcodone/APAP 7.5-325MG [[place] 7.5-325] 1 tab PO BID PRN PRN Reason: Pain Metoclopramide HCl [Reglan] 5 mg PO TID PRN #30 tablet PRN Reason: Nausea Ondansetron Odt [Zofran ODT] 4 mg PO Q8HR PRN #10 tab PRN Reason: Nausea Mirtazapine 7.5 mg PO HS Fluconazole 150 mg PO ONCE PRN PRN Reason: YEAST INFECTION Ferrous Sulfate [Iron (65 MG Elemental)] 325 mg PO DAILY Multivitamins, Thera [Multivitamin (formulary)] 1 tab PO DAILY Ipratropium-Albuterol Nebulize [Duoneb 0.5 mg-3 mg/3 ml Soln] 3 ml INHALATION RT-QID PRN PRN Reason: Shortness Of Breath Glucagon [Baqsimi] 1 spray NASAL DIRECTED PRN PRN Reason: Severe Hypoglycemia Gabapentin 300 mg PO TID Butalb/APAP/Caff 50-325-40Mg [Fioricet 50-325-40] 1 tab PO BID PRN PRN Reason: Migraine Headache rOPINIRole HCL [Requip] 0.5 mg PO BID Loperamide [Imodium] 2 mg PO TID PRN #21 capsule PRN Reason: Diarrhea Rosuvastatin Calcium [Crestor] 40 mg PO HS Isosorbide Mononitrate ER [Imdur] 30 mg PO DAILY INSULIN LISPRO (For Pump) [humaLOG (For Pump)] 0.01 units SQ-PUMP CONTINUOUS Metoprolol Succinate (ER) [Toprol XL] 25 mg PO HS Discharge Medication List Venlafaxine HCl [Effexor XR] 225 mg PO DAILY 10/21/16 [History] Pantoprazole Sodium [Protonix] 40 mg PO BID 04/06/20 [History] Meclizine [Antivert] 25 mg PO TID PRN 01/16/21 [History] Ferrous Sulfate [Iron (65 MG Elemental)] 325 mg PO DAILY 10/02/21 [History] Cetirizine HCl [Zyrtec] 10 mg PO DAILY 07/15/22 [History] Cholecalciferol [Vitamin D3 (125 Mcg = 5000 Iu)] 125 mcg PO TID 07/15/22 [History] Gabapentin 300 mg PO TID 07/15/22 [History] Glucagon [Baqsimi] 1 spray NASAL DIRECTED PRN 07/15/22 [History] Ipratropium-Albuterol Nebulize [Duoneb 0.5 mg-3 mg/3 ml Soln] 3 ml INHALATION RT-QID PRN 07/15/22 [History] Levothyroxine Sodium [Synthroid] 50 mcg PO DAILY 07/15/22 [History] Levothyroxine Sodium [Synthroid] 200 mcg PO DAILY 07/15/22 [History] Magnesium Oxide [Mag-Ox] 400 mg PO DAILY 07/15/22 [History] Multivitamins, Thera [Multivitamin (formulary)] 1 tab PO DAILY 07/15/22 [History] Acetaminophen Tab [Tylenol] 650 mg PO Q6HR PRN tab 09/04/22 [Rx] Aspirin EC [Ecotrin Low Dose] 81 mg PO DAILY 10/03/22 [History] Butalb/APAP/Caff 50-325-40Mg [Fioricet 50-325-40] 1 tab PO BID PRN 10/03/22 [History] rOPINIRole HCL [Requip] 0.5 mg PO BID 10/03/22 [History] Loperamide [Imodium] 2 mg PO TID PRN #21 capsule 10/07/22 [Rx] HYDROcodone/APAP 7.5-325MG [[place] 7.5-325] 1 tab PO BID PRN 01/05/23 [History] Rosuvastatin Calcium [Crestor] 40 mg PO HS 01/05/23 [History] Metoclopramide HCl [Reglan] 5 mg PO TID PRN #30 tablet 01/07/23 [Rx] Ondansetron Odt [Zofran ODT] 4 mg PO Q8HR PRN #10 tab 01/07/23 [Rx] INSULIN LISPRO (For Pump) [humaLOG (For Pump)] 0.01 units SQ-PUMP CONTINUOUS 04/10/23 [History] Isosorbide Mononitrate ER [Imdur] 30 mg PO DAILY 04/10/23 [History] Mirtazapine 7.5 mg PO HS 04/10/23 [History] Fluconazole 150 mg PO ONCE PRN 05/04/23 [History] Metoprolol Succinate (ER) [Toprol XL] 25 mg PO HS 05/16/23 [History] Follow up Appointment(s)/Referral(s): Sahra Elder MD [Primary Care Provider] - 1-2 days Dixon Wahl MD [REFERRING] - 05/28/23 1:00 pm Patient Instructions/Handouts: Diabetic Hyperglycemia (DC) Discharge/Stand Alone Forms: Who Do I Call?, Community Resources, [employer]
== END 2023-05-21 16:03 | disposition home or self-care (01) | DRG 420 ==
LOC: EC 12:49 → 3SCARD 22:04
PROVIDERS: ADMIT Hospitalist; ATTEND Hospitalist
DX: E11.00 Type 2 diabetes mellitus with hyperosmolarity without nonketotic hyperglycemic-hyperosmolar coma (NKHHC) (principal); E87.20 Acidosis, unspecified; E11.42 Type 2 diabetes mellitus with diabetic polyneuropathy; M06.9 Rheumatoid arthritis, unspecified; J44.9 Chronic obstructive pulmonary disease, unspecified; Z79.4 Long term (current) use of insulin; Z28.310 Unvaccinated for COVID-19; E87.5 Hyperkalemia; I10 Essential (primary) hypertension; I25.10 Atherosclerotic heart disease of native coronary artery without angina pectoris; E89.0 Postprocedural hypothyroidism; E78.5 Hyperlipidemia, unspecified; M25.551 Pain in right hip; M54.50 Low back pain, unspecified; G25.81 Restless legs syndrome; K21.9 Gastro-esophageal reflux disease without esophagitis; F32.A Depression, unspecified; F17.200 Nicotine dependence, unspecified, uncomplicated; G47.30 Sleep apnea, unspecified; H40.9 Unspecified glaucoma; I25.2 Old myocardial infarction; Z79.82 Long term (current) use of aspirin; Z79.890 Hormone replacement therapy; Z79.899 Other long term (current) drug therapy; Z86.73 Personal history of transient ischemic attack (TIA), and cerebral infarction without residual deficits; Z95.5 Presence of coronary angioplasty implant and graft; Z86.718 Personal history of other venous thrombosis and embolism; Z85.528 Personal history of other malignant neoplasm of kidney; Z86.14 Personal history of Methicillin resistant Staphylococcus aureus infection; Z86.19 Personal history of other infectious and parasitic diseases; Z96.41 Presence of insulin pump (external) (internal); Z90.5 Acquired absence of kidney; Z87.440 Personal history of urinary (tract) infections; W19.XXXA Unspecified fall, initial encounter; Y92.009 Unspecified place in unspecified non-institutional (private) residence as the place of occurrence of the external cause; Z88.2 Allergy status to sulfonamides; Z88.8 Allergy status to other drugs, medicaments and biological substances; Z91.040 Latex allergy status; Z83.3 Family history of diabetes mellitus
CPT/HCPCS: 36415; 71046; 72192; 73502; 80048; 80051; 80053; 82009; 82565; 82803; 83605; 83880; 83930; 83935; 84100; 84132; 84484; 84520; 85025; 85027; 85610; 85730; 93005; 94640; 94760; 96361; 96365; 96366; 96372; 96375; 99285

== ENCOUNTER 2023-06-03 13:00 | Emergency (ER) | payer OTHER ==
[2023-06-03 13:11] LABS: Glucose,Whole Blood 469 mg/dL (70-110)
[2023-06-03] MEDS ORDERED: SODIUM CHLORIDE 0.9% 1,000 ML IV STA ×2 (14:20)
[2023-06-03] MEDS ORDERED: SODIUM CHLORIDE 0.9% 500 ML 500 ML IV STA (14:20)
[2023-06-03 14:44] LABS: Basophils % (A) 1 %; Eosinophils # (A) 0.4 k/uL (0-0.7); Eosinophils % (A) 5 %; HCT 36.1 % (34.0-46.0); HGB 11.4 gm/dL (11.4-16.0); Hypochromasia Slight; Lymphocytes # (A) 1.3 k/uL (1.0-4.8); Lymphocytes % (A) 17 %; MCH 29.6 pg (25.0-35.0); MCHC 31.5 g/dL (31.0-37.0); MCV 93.9 fL (80.0-100.0); Mean Platelet Volume 9.3; Monocytes # (A) 0.2 k/uL (0-1.0); Monocytes % (A) 3 %; Neutrophils # (A) 5.7 k/uL (1.3-7.7); Neutrophils % (A) 74 %; Platelet Count 300 k/uL (150-450); RBC 3.84 m/uL (3.80-5.40); WBC 7.7 k/uL (3.8-10.6)
[2023-06-03 14:53] LABS: Appearance,Urine Cloudy (Clear); Bilirubin,Urine Negative (Negative); Blood,Urine Negative (Negative); Color,Urine Light Yellow; Glucose,Urine (UA) 4+ (Negative); Ketones,Urine Negative (Negative); Leukocyte Esterase,Urine Negative (Negative); Mucus,Urine Rare /hpf; Nitrite,Urine Negative (Negative); Protein,Urine Trace (Negative); RBC,Urine <1 /hpf (0-5); Specific Gravity,Urine 1.025 (1.001-1.035); Squamous Epithelial Cell,Urine 1 /hpf (0-4); Urobilinogen,Urine <2.0 mg/dL (<2.0); WBC,Urine 3 /hpf (0-5)
--- NOTE | 2023-06-03 14:53 | ED ---
Recheck HPI - General Chief Complaint: Recheck/Abnormal Lab/Rx Stated Complaint: High Blood Sugar,Chest Pain Time Seen by Provider: 06/03/23 13:34 Source: patient, RN notes reviewed, old records reviewed Mode of arrival: ambulatory Limitations: no limitations - History of Present Illness Initial Comments: This is a 63-year-old female to the emergency department for evaluation of uncontrolled blood sugars. Patient sent in by her primary care for evaluation of elevated blood sugar is admittedly not taking her medications at home MD Complaint: abnormal lab (Elevated blood sugar) -: week(s) Returns Today for: request for prescription Symptoms Since Prior Visit: no new symptoms Associated Symptoms: none Treatments Prior to Arrival: other (0) - Related Data Home Medications Medication Instructions Recorded Confirmed Venlafaxine HCl [Effexor XR] 225 mg PO DAILY 10/21/16 06/05/23 Pantoprazole Sodium [Protonix] 40 mg PO BID 04/06/20 06/05/23 Meclizine [Antivert] 25 mg PO TID PRN 01/16/21 06/05/23 Ferrous Sulfate [Iron (65 MG 325 mg PO DAILY 10/02/21 06/05/23 Elemental)] Cetirizine HCl [Zyrtec] 10 mg PO DAILY 07/15/22 06/05/23 Cholecalciferol [Vitamin D3 (125 125 mcg PO TID 07/15/22 06/05/23 Mcg = 5000 Iu)] Gabapentin 300 mg PO TID 07/15/22 06/05/23 Glucagon [Baqsimi] 1 spray NASAL DIRECTED PRN 07/15/22 06/05/23 Ipratropium-Albuterol Nebulize 3 ml INHALATION RT-QID PRN 07/15/22 06/05/23 [Duoneb 0.5 mg-3 mg/3 ml Soln] Levothyroxine Sodium [Synthroid] 50 mcg PO DAILY 07/15/22 06/05/23 Levothyroxine Sodium [Synthroid] 200 mcg PO DAILY 07/15/22 06/05/23 Magnesium Oxide [Mag-Ox] 400 mg PO DAILY 07/15/22 06/05/23 Multivitamins, Thera [Multivitamin 1 tab PO DAILY 07/15/22 06/05/23 (formulary)] Aspirin EC [Ecotrin Low Dose] 81 mg PO DAILY 10/03/22 06/05/23 Butalb/APAP/Caff 50-325-40Mg 1 tab PO BID PRN 10/03/22 06/05/23 [Fioricet 50-325-40] rOPINIRole HCL [Requip] 0.5 mg PO BID 10/03/22 06/05/23 HYDROcodone/APAP 7.5-325MG [[place] 1 tab PO BID PRN 01/05/23 06/05/23 7.5-325] Rosuvastatin Calcium [Crestor] 40 mg PO HS 01/05/23 06/05/23 INSULIN LISPRO (For Pump) [humaLOG 0.01 units SQ-PUMP CONTINUOUS 04/10/23 06/05/23 (For Pump)] Isosorbide Mononitrate ER [Imdur] 30 mg PO DAILY 04/10/23 06/05/23 Mirtazapine 7.5 mg PO HS 04/10/23 06/05/23 Fluconazole 150 mg PO ONCE PRN 05/04/23 06/05/23 Metoprolol Succinate (ER) [Toprol 25 mg PO HS 05/16/23 06/05/23 XL] Previous Rx's Medication Instructions Recorded Acetaminophen Tab [Tylenol] 650 mg PO Q6HR PRN tab 09/04/22 Loperamide [Imodium] 2 mg PO TID PRN #21 capsule 10/07/22 Metoclopramide HCl [Reglan] 5 mg PO TID PRN #30 tablet 01/07/23 Ondansetron Odt [Zofran ODT] 4 mg PO Q8HR PRN #10 tab 01/07/23 Allergies Allergy/AdvReac Type Severity Reaction Status Date / Time grass pollen Allergy Unknown Verified 06/10/23 15:10 latex Allergy Rash/Hives Verified 06/10/23 15:10 Sulfa (Sulfonamide Allergy Rash/Hives/ Verified 06/10/23 15:10 Antibiotics) Swelling venom-honey bee Allergy Anaphylaxis Verified 06/10/23 15:10 prochlorperazine edisylate AdvReac Vomiting Verified 06/10/23 15:10 [From Compazine] Review of Systems ROS Statement: Those systems with pertinent positive or pertinent negative responses have been documented in the HPI. ROS Other: All systems not noted in ROS Statement are negative. Past Medical History Past Medical History: Coronary Artery Disease (CAD), Cancer, COPD, CVA/TIA, Diabetes Mellitus, Deep Vein Thrombosis (DVT), Eye Disorder, GERD/Reflux, Hyperlipidemia, Hypertension, Myocardial Infarction (MD), Renal Disease, Rheumatoid Arthritis (RA), Syncope, Thyroid Disorder Additional Past Medical History / Comment(s): 09/16/16 with SBO with surgery/possible septic emboli with cavitary lesions bilateral lungs. 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 coli 2015 requiring PICC line insertion for IV antibiotics, restless leg syndrome, peripheral neuropathy. Hx bilateral glaucoma, hx syncope r/t low blood sugars. No CPAP use. Last Myocardial Infarction Date:: 2019 History of Any Multi-Drug Resistant Organisms: ESBL, MRSA, VRE Date of last positivie culture/infection: 05/07/16 ESBL, 05/15/16 VRE, MRSA 09/2017 - upper lip MDRO Source:: URINE E.COLI, EC GALLINARUM Past Surgical History: Appendectomy, Bowel Resection, Section, Heart Catheterization, Heart Catheterization With Stent, Hernia Repair Additional Past Surgical History / Comment(s): 09/30 exploratory laparotomy with lysis of adhesions, bowel resection d/t obstruction. repair incarcerated incisional hernia with abdominal washout, thyroidectomy(non functioning), heart cath 06/28 - 100% occluded, unable to stent, partial left nephrectomy for left kidney renal cell carcinoma, colonoscopy, bilateral cataract removal with lens implants, 2 Sections. cardiac Stent 03/2021 Past Anesthesia/Blood Transfusion Reactions: No Reported Reaction Date of Last Stent Placement:: 04/06/2021 Past Psychological History: Depression Smoking Status: Current some day smoker, Former smoker Past Alcohol Use History: None Reported Past Drug Use History: Marijuana - Past Family History Sister(s) Family Medical History: Cancer, Deep Vein Thrombosis (DVT) Additional Family Medical History / Comment(s): Patient has one sister that from liver cancer. Brother(s) Family Medical History: Cancer, Deep Vein Thrombosis (DVT) Additional Family Medical History / Comment(s): Patient has 1 brother with past ETOH, past drug abuse, DVTs. She has a second brother that has from throat cancer. Daughter(s) Family Medical History: Diabetes Mellitus, Myocardial Infarction (MD) Additional Family Medical History / Comment(s): Daughter at 23 yrs old from massive MD. Father Family Medical History: Myocardial Infarction (MD) Additional Family Medical History / Comment(s): from MD at age 44 Mother Family Medical History: Cancer Additional Family Medical History / Comment(s): B/L breast cancer General Exam Limitations: no limitations General appearance: alert, in no apparent distress Head exam: Present: atraumatic, normocephalic, normal inspection Eye exam: Present: normal appearance, PERRL, EOMI. Absent: scleral icterus, conjunctival injection, periorbital swelling ENT exam: Present: normal exam, mucous membranes moist Neck exam: Present: normal inspection. Absent: tenderness, meningismus, lymphadenopathy Respiratory exam: Present: normal lung sounds bilaterally. Absent: respiratory distress, wheezes, rales, rhonchi, stridor Cardiovascular Exam: Present: regular rate, normal rhythm, normal heart sounds. Absent: systolic murmur, diastolic murmur, rubs, gallop, clicks GI/Abdominal exam: Present: soft, normal bowel sounds. Absent: distended, tenderness, guarding, rebound, rigid Extremities exam: Present: normal inspection, full ROM, normal capillary refill. Absent: tenderness, pedal edema, joint swelling, calf tenderness Back exam: Present: normal inspection Neurological exam: Present: alert, oriented X3, CN II-XII intact Psychiatric exam: Present: normal affect, normal mood Skin exam: Present: warm, dry, intact, normal color. Absent: rash Course Vital Signs 06/03/23 06/03/23 06/03/23 13:03 14:00 15:00 Temperature 97.7 F Pulse Rate 125 H 82 74 Respiratory 22 18 18 Rate Blood Pressure 145/85 111/69 138/82 O2 Sat by Pulse 96 99 98 Oximetry 06/03/23 06/03/23 06/03/23 16:00 17:00 18:10 Temperature 98.2 F Pulse Rate 89 87 88 Respiratory 18 18 18 Rate Blood Pressure 160/84 153/76 O2 Sat by Pulse 99 100 99 Oximetry - Reevaluation(s) Reevaluation #1: Medical record is reviewed Reevaluation #2: Patient symptoms are unchanged Reevaluation #3: Patient informed of results and questions answered Reevaluation #4: Was pt. sent in by a medical professional or institution ([facility], [facility] [employer], urgent care, hospital, or half-way...) When possible be specific @ -no Did you speak to anyone other than the patient for history (EMS, parent, family, police, friend...)? What history was obtained from this source @ -no Did you review nursing and triage notes (agree or disagree)? Why? @ -agree Are old charts reviewed (outside hosp., previous admission, EMS record, old EKG, old radiological studies, urgent care reports/EKG's, half-way records)? Report findings @ -yes Differential Diagnosis (chest pain, altered mental status, abdominal pain women, abdominal pain men, vaginal bleeding, weakness, fever, dyspnea, syncope, headache, dizziness, GI bleed, back pain, seizure, CVA, palpatations, mental health, musculoskeletal)? @ -prior EKG interpreted by me (3pts min.). @ -yes X-rays interpreted by me (1pt min.). @ -no CT interpreted by me (1pt min.). @ -no U/S interpreted by me (1pt. min.). @ -no What testing was considered but not performed or refused? (CT, X-rays, U/S, labs)? Why? @ -none What meds were considered but not given or refused? Why? @ -none Did you discuss the management of the patient with other professionals (professionals i.e. [facility], [facility], lab, RT, psych nurse, social services coordinator, party host/hostess, teacher, logistics officer, case supervisor)? Give summary @ -no Was smoking cessation discussed for >3mins.? @ -no Was critical care preformed (if so, how long)? @ -no Were there social determinants of health that impacted care today? How? (Homelessness, low income, unemployed, alcoholism, drug addiction, transportation, low edu. Level, literacy, decrease access to med. care, senior care, rehab)? @ -none Was there de-escalation of care discussed even if they declined (Discuss DNR or withdrawal of care, Hospice)? DNR status @ -no What co-morbidities impacted this encounter? (DM, HTN, Smoking, COPD, CAD, Cancer, CVA, ARF, Chemo, Hep., AIDS, mental health diagnosis, sleep apnea, morbid obesity)? @ -none Was patient admitted / discharged? Hospital course, mention meds given and route, prescriptions, significant lab abnormalities, going to OR and other pertinent info. @ - 63 female to the emergency department for elevated blood sugar due to me dical noncompliance. Patient's blood sugars dramatically improved here in the ER she is informed blood sugar management diabetic education. Patient can be discharged home Discharge Undiagnosed new problem with uncertain prognosis? @ -no Drug Therapy requiring intensive monitoring for toxicity (Heparin, Nitro, Insulin, Cardizem)? @ -no Were any procedures done? @ -no Diagnosis/symptom? @ -Diabetic hyperglycemia Acute, or Chronic, or Acute on Chronic? @ -Acute Uncomplicated (without systemic symptoms) or Complicated (systemic symptoms)? @ -Complicated Side effects of treatment? @ -no Exacerbation, Progression, or Severe Exacerbation? @ -exacerbation Poses a threat to life or bodily function? How? (Chest pain, USA, MD, pneumonia, PE, COPD, DKA, ARF, appy, cholecystitis, CVA, Diverticulitis, Homicidal, Suicidal, threat to staff... and all critical care pts) @ -yes with significant elevated blood sugar diabetes and diabetic ketoacidosis Reevaluation #5: Differential Weakness: Hypoglycemia, shock, sepsis, hyponatremia, anemia, infection, MD, ETOH, adverse medicine reaction, overdose, stroke, this is not meant to be an all-inclusive list. Medical Decision Making - Medical Decision Making 63 female to the emergency department for elevated blood sugar due to medical noncompliance. Patient's blood sugars dramatically improved here in the ER she is informed blood sugar management diabetic education. Patient can be discharged home - Lab Data Result diagrams: 06/03/23 14:28 06/03/23 14:28 Lab Results 06/03/23 06/03/23 06/03/23 Range/Units 13:10 14:28 14:28 WBC 7.7 (3.8-10.6) k/uL RBC 3.84 (3.80-5.40) m/uL Hgb 11.4 (11.4-16.0) gm/dL Hct 36.1 (34.0-46.0) % MCV 93.9 (80.0-100.0) fL MCH 29.6 (25.0-35.0) pg MCHC 31.5 (31.0-37.0) g/dL RDW 15.0 (11.5-15.5) % Plt Count 300 (150-450) k/uL MPV 9.3 Neutrophils % 74 % Lymphocytes % 17 % Monocytes % 3 % Eosinophils % 5 % Basophils % 1 % Neutrophils # 5.7 (1.3-7.7) k/uL Lymphocytes # 1.3 (1.0-4.8) k/uL Monocytes # 0.2 (0-1.0) k/uL Eosinophils # 0.4 (0-0.7) k/uL Basophils # 0.0 (0-0.2) k/uL Hypochromasia Slight VBG pH (7.31-7.41) VBG pCO2 (37-51) mmHg VBG HCO3 (24-28) mmol/L Sodium (137-145) mmol/L Potassium (3.5-5.1) mmol/L Chloride (98-107) mmol/L Carbon Dioxide (22-30) mmol/L Anion Gap mmol/L BUN (7-17) mg/dL Creatinine (0.52-1.04) mg/dL Est GFR (CKD-EPI)AfAm (>60 ml/min/1.73 sqM) Est GFR (CKD-EPI)NonAf (>60 ml/min/1.73 sqM) Glucose (74-99) mg/dL POC Glucose (mg/dL) 469 H (70-110) mg/dL POC Glu Machine Operator Transplanter ID Vivek Rose Plasma Lactic Acid Ab (0.7-2.0) mmol/L Calcium (8.4-10.2) mg/dL Phosphorus (2.5-4.5) mg/dL Magnesium (1.6-2.3) mg/dL Total Bilirubin (0.2-1.3) mg/dL AST (14-36) U/L ALT (4-34) U/L Alkaline Phosphatase (38-126) U/L Troponin I (0.000-0.034) ng/mL Total Protein (6.3-8.2) g/dL Albumin (3.5-5.0) g/dL Urine Color Light Yellow Urine Appearance Cloudy H (Clear) Urine pH 5.0 (5.0-8.0) Ur Specific [place] 1.025 (1.001-1.035) Urine Protein Trace H (Negative) Urine Glucose (UA) 4+ H (Negative) Urine Ketones Negative (Negative) Urine Blood Negative (Negative) Urine Nitrite Negative (Negative) Urine Bilirubin Negative (Negative) Urine Urobilinogen <2.0 (<2.0) mg/dL Ur Leukocyte Esterase Negative (Negative) Urine RBC <1 (0-5) /hpf Urine WBC 3 (0-5) /hpf Ur Squamous Epith Cells 1 (0-4) /hpf Urine Mucus Rare H (None) /hpf Acetone, Qual (Negative) 06/03/23 06/03/23 06/03/23 Range/Units 14:28 14:28 14:28 WBC (3.8-10.6) k/uL RBC (3.80-5.40) m/uL Hgb (11.4-16.0) gm/dL Hct (34.0-46.0) % MCV (80.0-100.0) fL MCH (25.0-35.0) pg MCHC (31.0-37.0) g/dL RDW (11.5-15.5) % Plt Count (150-450) k/uL MPV Neutrophils % % Lymphocytes % % Monocytes % % Eosinophils % % Basophils % % Neutrophils # (1.3-7.7) k/uL Lymphocytes # (1.0-4.8) k/uL Monocytes # (0-1.0) k/uL Eosinophils # (0-0.7) k/uL Basophils # (0-0.2) k/uL Hypochromasia VBG pH (7.31-7.41) VBG pCO2 (37-51) mmHg VBG HCO3 (24-28) mmol/L Sodium 134 L (137-145) mmol/L Potassium 5.8 H (3.5-5.1) mmol/L Chloride 100 (98-107) mmol/L Carbon Dioxide 21 L (22-30) mmol/L Anion Gap 13 mmol/L BUN 22 H (7-17) mg/dL Creatinine 0.87 (0.52-1.04) mg/dL Est GFR (CKD-EPI)AfAm 82 (>60 ml/min/1.73 sqM) Est GFR (CKD-EPI)NonAf 71 (>60 ml/min/1.73 sqM) Glucose 465 H (74-99) mg/dL POC Glucose (mg/dL) (70-110) mg/dL POC Glu Machine Operator Transplanter ID Plasma Lactic Acid Ab 1.8 (0.7-2.0) mmol/L Calcium 9.4 (8.4-10.2) mg/dL Phosphorus 4.4 (2.5-4.5) mg/dL Magnesium 1.8 (1.6-2.3) mg/dL Total Bilirubin 0.8 (0.2-1.3) mg/dL AST 32 (14-36) U/L ALT 16 (4-34) U/L Alkaline Phosphatase 167 H (38-126) U/L Troponin I <0.012 (0.000-0.034) ng/mL Total Protein 7.4 (6.3-8.2) g/dL Albumin 4.2 (3.5-5.0) g/dL Urine Color Urine Appearance (Clear) Urine pH (5.0-8.0) Ur Specific [place] (1.001-1.035) Urine Protein (Negative) Urine Glucose (UA) (Negative) Urine Ketones (Negative) Urine Blood (Negative) Urine Nitrite (Negative) Urine Bilirubin (Negative) Urine Urobilinogen (<2.0) mg/dL Ur Leukocyte Esterase (Negative) Urine RBC (0-5) /hpf Urine WBC (0-5) /hpf Ur Squamous Epith Cells (0-4) /hpf Urine Mucus (None) /hpf Acetone, Qual Negative (Negative) 06/03/23 06/03/23 06/03/23 Range/Units 15:10 15:34 17:01 WBC (3.8-10.6) k/uL RBC (3.80-5.40) m/uL Hgb (11.4-16.0) gm/dL Hct (34.0-46.0) % MCV (80.0-100.0) fL MCH (25.0-35.0) pg MCHC (31.0-37.0) g/dL RDW (11.5-15.5) % Plt Count (150-450) k/uL MPV Neutrophils % % Lymphocytes % % Monocytes % % Eosinophils % % Basophils % % Neutrophils # (1.3-7.7) k/uL Lymphocytes # (1.0-4.8) k/uL Monocytes # (0-1.0) k/uL Eosinophils # (0-0.7) k/uL Basophils # (0-0.2) k/uL Hypochromasia VBG pH 7.34 (7.31-7.41) VBG pCO2 39 (37-51) mmHg VBG HCO3 21 L (24-28) mmol/L Sodium (137-145) mmol/L Potassium (3.5-5.1) mmol/L Chloride (98-107) mmol/L Carbon Dioxide (22-30) mmol/L Anion Gap mmol/L BUN (7-17) mg/dL Creatinine (0.52-1.04) mg/dL Est GFR (CKD-EPI)AfAm (>60 ml/min/1.73 sqM) Est GFR (CKD-EPI)NonAf (>60 ml/min/1.73 sqM) Glucose (74-99) mg/dL POC Glucose (mg/dL) 452 H 204 H (70-110) mg/dL POC Glu Machine Operator Transplanter CAMILLE Isaacs, Mone Isaacs, Mone Plasma Lactic Acid Ab (0.7-2.0) mmol/L Calcium (8.4-10.2) mg/dL Phosphorus (2.5-4.5) mg/dL Magnesium (1.6-2.3) mg/dL Total Bilirubin (0.2-1.3) mg/dL AST (14-36) U/L ALT (4-34) U/L Alkaline Phosphatase (38-126) U/L Troponin I (0.000-0.034) ng/mL Total Protein (6.3-8.2) g/dL Albumin (3.5-5.0) g/dL Urine Color Urine Appearance (Clear) Urine pH (5.0-8.0) Ur Specific [place] (1.001-1.035) Urine Protein (Negative) Urine Glucose (UA) (Negative) Urine Ketones (Negative) Urine Blood (Negative) Urine Nitrite (Negative) Urine Bilirubin (Negative) Urine Urobilinogen (<2.0) mg/dL Ur Leukocyte Esterase (Negative) Urine RBC (0-5) /hpf Urine WBC (0-5) /hpf Ur Squamous Epith Cells (0-4) /hpf Urine Mucus (None) /hpf Acetone, Qual (Negative) - EKG Data -: EKG Interpreted by Me (EKG sinus 90 VT 137 QRS 84 QTc 402) Disposition Clinical Impression: Dehydration, Hyperglycemia Disposition: ADMITTED IP TO THIS HOSP Condition: Fair Instructions (If sedation given, give patient instructions): Diabetic Hyperglycemia (ED) Is patient prescribed a controlled substance at d/c from ED?: No Referrals: Sahra Elder MD [Primary Care Provider] - 1-2 days Time of Disposition: 16:00
[2023-06-03] MEDS ORDERED: INSULIN REGULAR 100 UNIT/ML VIAL (IV) IV ONE (15:09)
[2023-06-03 15:13] LABS: ALT 16 U/L (4-34); African American GFR (CKD) 82 (>60 ml/min/1.73 sqM); Anion Gap 13 mmol/L; Blood Urea Nitrogen 22 mg/dL (7-17); Calcium 9.4 mg/dL (8.4-10.2); Carbon Dioxide 21 mmol/L (22-30); Chloride 100 mmol/L (98-107); Glucose 465 mg/dL (74-99); Non-African American GFR(CKD) 71 (>60 ml/min/1.73 sqM); Sodium 134 mmol/L (137-145); Total Bilirubin 0.8 mg/dL (0.2-1.3)
[2023-06-03 15:19] LABS: AST 32 U/L (14-36); Albumin 4.2 g/dL (3.5-5.0); Alkaline Phosphatase 167 U/L (38-126); Magnesium 1.8 mg/dL (1.6-2.3); Phosphorus 4.4 mg/dL (2.5-4.5); Potassium 5.8 mmol/L (3.5-5.1); Total Protein 7.4 g/dL (6.3-8.2)
[2023-06-03 15:37] LABS: Glucose,Whole Blood 452 mg/dL (70-110)
[2023-06-03 15:40] LABS: VBG PH 7.34 (7.31-7.41)
[2023-06-03 15:46] VITALS: RESP 18
[2023-06-03] MEDS ORDERED: ONDANSETRON 4 MG/2 ML VIAL IVP STA (16:29)
[2023-06-03 17:07] LABS: Glucose,Whole Blood 204 mg/dL (70-110)
[2023-06-03 17:19] VITALS: BP 153/76
[2023-06-03 18:27] VITALS: PULSE 88; TEMP 98.2
== END 2023-06-03 18:15 | disposition other institution (70) ==
LOC: EC 13:00
DX: E11.65 Type 2 diabetes mellitus with hyperglycemia (principal); E86.0 Dehydration; E11.42 Type 2 diabetes mellitus with diabetic polyneuropathy; I10 Essential (primary) hypertension; I25.10 Atherosclerotic heart disease of native coronary artery without angina pectoris; I25.2 Old myocardial infarction; J44.9 Chronic obstructive pulmonary disease, unspecified; K21.9 Gastro-esophageal reflux disease without esophagitis; E03.9 Hypothyroidism, unspecified; E78.5 Hyperlipidemia, unspecified; F32.A Depression, unspecified; M06.9 Rheumatoid arthritis, unspecified; F17.200 Nicotine dependence, unspecified, uncomplicated; F12.90 Cannabis use, unspecified, uncomplicated; Z79.890 Hormone replacement therapy; Z79.4 Long term (current) use of insulin; Z79.82 Long term (current) use of aspirin; Z79.899 Other long term (current) drug therapy; Z88.2 Allergy status to sulfonamides; Z88.8 Allergy status to other drugs, medicaments and biological substances; Z91.030 Bee allergy status; Z91.040 Latex allergy status; Z95.5 Presence of coronary angioplasty implant and graft; Z90.49 Acquired absence of other specified parts of digestive tract; Z86.73 Personal history of transient ischemic attack (TIA), and cerebral infarction without residual deficits; Z91.09 Other allergy status, other than to drugs and biological substances; Z91.199 Patient's noncompliance with other medical treatment and regimen due to unspecified reason
CPT/HCPCS: 99285; 96374; 96361; 36415; 93005; 80053; 82803; 82009; 83605; 83735; 84100; 84484; 85025; 81001; J2405

== ENCOUNTER 2023-06-04 20:11 | Inpatient (IN) | payer OTHER ==
[2023-06-04 21:18] LABS: Glucose,Whole Blood >600 mg/dL (70-110)
--- NOTE | 2023-06-04 21:51 | ED ---
General Adult HPI - General Chief complaint: Shortness of Breath Stated complaint: SOB Time Seen by Provider: 06/04/23 21:21 Source: patient Mode of arrival: wheelchair Limitations: no limitations - History of Present Illness Initial comments: Dictation was produced using [employer] dictation software. please excuse any grammatical, word or spelling errors. Chief Complaint: 63-year-old female presents emergency department for dyspnea an d right hip pain History of Present Illness: 63-year-old female with multiple coronary disease presents emergency department for one day of dyspnea and right hip pain. Patient has any trauma to the right hip. States it hurts when she stands. Patient however able to ambulate with a limp. She states that she normally has frequent episodes of hip pain. Patient has secondary complaint of shortness of breath. She does report sore throat and runny nose. Denies any chest pain. States that she does feel worse when she lays flat. She has extensive cardiac history including myocardial infarction and heart failure. The ROS documented in this emergency department record has been reviewed and confirmed by me. Those systems with pertinent positive or negative responses have been documented in the HPI. All other systems are other negative and/or noncontributory. - Related Data Home Medications Medication Instructions Recorded Confirmed Venlafaxine HCl [Effexor XR] 225 mg PO DAILY 10/21/16 05/16/23 Pantoprazole Sodium [Protonix] 40 mg PO BID 04/06/20 05/16/23 Meclizine [Antivert] 25 mg PO TID PRN 01/16/21 05/16/23 Ferrous Sulfate [Iron (65 MG 325 mg PO DAILY 10/02/21 05/16/23 Elemental)] Cetirizine HCl [Zyrtec] 10 mg PO DAILY 07/15/22 05/16/23 Cholecalciferol [Vitamin D3 (125 125 mcg PO TID 07/15/22 05/16/23 Mcg = 5000 Iu)] Gabapentin 300 mg PO TID 07/15/22 05/16/23 Glucagon [Baqsimi] 1 spray NASAL DIRECTED PRN 07/15/22 05/16/23 Ipratropium-Albuterol Nebulize 3 ml INHALATION RT-QID PRN 07/15/22 05/16/23 [Duoneb 0.5 mg-3 mg/3 ml Soln] Levothyroxine Sodium [Synthroid] 50 mcg PO DAILY 07/15/22 05/16/23 Levothyroxine Sodium [Synthroid] 200 mcg PO DAILY 07/15/22 05/16/23 Magnesium Oxide [Mag-Ox] 400 mg PO DAILY 07/15/22 05/16/23 Multivitamins, Thera [Multivitamin 1 tab PO DAILY 07/15/22 05/16/23 (formulary)] Aspirin EC [Ecotrin Low Dose] 81 mg PO DAILY 10/03/22 05/16/23 Butalb/APAP/Caff 50-325-40Mg 1 tab PO BID PRN 10/03/22 05/16/23 [Fioricet 50-325-40] rOPINIRole HCL [Requip] 0.5 mg PO BID 10/03/22 05/16/23 HYDROcodone/APAP 7.5-325MG [[place] 1 tab PO BID PRN 01/05/23 05/16/23 7.5-325] Rosuvastatin Calcium [Crestor] 40 mg PO HS 01/05/23 05/16/23 INSULIN LISPRO (For Pump) [humaLOG 0.01 units SQ-PUMP CONTINUOUS 04/10/23 05/16/23 (For Pump)] Isosorbide Mononitrate ER [Imdur] 30 mg PO DAILY 04/10/23 05/16/23 Mirtazapine 7.5 mg PO HS 04/10/23 05/16/23 Fluconazole 150 mg PO ONCE PRN 05/04/23 05/16/23 Metoprolol Succinate (ER) [Toprol 25 mg PO HS 05/16/23 05/16/23 XL] Previous Rx's Medication Instructions Recorded Acetaminophen Tab [Tylenol] 650 mg PO Q6HR PRN tab 09/04/22 Loperamide [Imodium] 2 mg PO TID PRN #21 capsule 10/07/22 Metoclopramide HCl [Reglan] 5 mg PO TID PRN #30 tablet 01/07/23 Ondansetron Odt [Zofran ODT] 4 mg PO Q8HR PRN #10 tab 01/07/23 Allergies Allergy/AdvReac Type Severity Reaction Status Date / Time grass pollen Allergy Unknown Verified 05/16/23 19:21 latex Allergy Rash/Hives Verified 05/16/23 19:21 Sulfa (Sulfonamide Allergy Rash/Hives/ Verified 05/16/23 19:21 Antibiotics) Swelling venom-honey bee Allergy Anaphylaxis Verified 05/16/23 19:21 prochlorperazine edisylate AdvReac Vomiting Verified 05/16/23 19:21 [From Compazine] Review of Systems ROS Statement: Those systems with pertinent positive or pertinent negative responses have been documented in the HPI. ROS Other: All systems not noted in ROS Statement are negative. Past Medical History Past Medical History: Coronary Artery Disease (CAD), Cancer, COPD, CVA/TIA, Diabetes Mellitus, Deep Vein Thrombosis (DVT), Eye Disorder, GERD/Reflux, Hyperlipidemia, Hypertension, Myocardial Infarction (IA), Renal Disease, Rheumatoid Arthritis (RA), Syncope, Thyroid Disorder Additional Past Medical History / Comment(s): 09/16/16 with SBO with surgery/possible septic emboli with cavitary lesions bilateral lungs. 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 coli 2015 requiring PICC line insertion for IV antibiotics, restless leg syndrome, peripheral neuropathy. Hx bilateral glaucoma, hx syncope r/t low blood sugars. No CPAP use. Last Myocardial Infarction Date:: 2019 History of Any Multi-Drug Resistant Organisms: ESBL, MRSA, VRE Date of last positivie culture/infection: 05/07/16 ESBL, 05/15/16 VRE, MRSA 09/2017 - upper lip MDRO Source:: URINE E.COLI, EC GALLINARUM Past Surgical History: Appendectomy, Bowel Resection, Section, Heart Catheterization, Heart Catheterization With Stent, Hernia Repair Additional Past Surgical History / Comment(s): 09/30 exploratory laparotomy with lysis of adhesions, bowel resection d/t obstruction. repair incarcerated incisional hernia with abdominal washout, thyroidectomy(non functioning), heart cath 06/28 - 100% occluded, unable to stent, partial left nephrectomy for left kidney renal cell carcinoma, colonoscopy, bilateral cataract removal with lens implants, 2 Sections. cardiac Stent 03/2021 Past Anesthesia/Blood Transfusion Reactions: No Reported Reaction Date of Last Stent Placement:: 04/06/2021 Past Psychological History: Depression Smoking Status: Current some day smoker, Former smoker Past Alcohol Use History: None Reported Past Drug Use History: Marijuana - Past Family History Sister(s) Family Medical History: Cancer, Deep Vein Thrombosis (DVT) Additional Family Medical History / Comment(s): Patient has one sister that from liver cancer. Brother(s) Family Medical History: Cancer, Deep Vein Thrombosis (DVT) Additional Family Medical History / Comment(s): Patient has 1 brother with past ETOH, past drug abuse, DVTs. She has a second brother that has from throat cancer. Daughter(s) Family Medical History: Diabetes Mellitus, Myocardial Infarction (IA) Additional Family Medical History / Comment(s): Daughter at 23 yrs old from massive IA. Father Family Medical History: Myocardial Infarction (IA) Additional Family Medical History / Comment(s): from IA at age 44 Mother Family Medical History: Cancer Additional Family Medical History / Comment(s): B/L breast cancer General Exam - General Exam Comments Initial Comments: PHYSICAL EXAM: General Impression: Alert and oriented x3, not in acute distress HEENT: Normocephalic atraumatic, extra-ocular movements intact, pupils equal and reactive to light bilaterally, mucous membranes moist. Cardiovascular: Heart regular rate and rhythm Chest: Able to complete full sentences, no retractions, no tachypnea, clear to auscultation bilaterally Abdomen: abdomen soft, non-tender, non-distended, no organomegaly Musculoskeletal: Pulses present and equal in all extremities, no peripheral e chay Right hip: Right hip joint was manipulated with no pain Motor: no focal deficits noted Neurological: CN II-XII grossly intact, no focal motor or sensory deficits noted Skin: Intact with no visualized rashes Psych: Normal affect and mood Limitations: no limitations Course Vital Signs 06/04/23 20:16 Temperature 98 F Pulse Rate 89 Respiratory 18 Rate Blood Pressure 110/74 O2 Sat by Pulse 99 Oximetry - Reevaluation(s) Reevaluation #1: 06/04/23 23:54 Case discussed with risk control analyst, Dr. Valenzuela at 11:50 PM. Labs, vitals, physical exam and clinical presentation was discussed. According to risk control analyst patient does not meet criteria for ICU admission. Her decreased sodium level secondary to hyperglycemia. EKG Findings - EKG Comments: EKG Findings:: My EKG interpretation: Ventricular rate 104, sinus tachycardia,. 140, QRS 85, QTC 394. No [place] prolongation, no QTC prolongation, no ST or T-wave changes noted. EKG compared to 06/03/2023 showing no changes. Overall, this EKG is unremarkable Medical Decision Making - Medical Decision Making Was pt. sent in by a medical professional or institution (, [facility], OIL FIELD [employer]ER, urgent care, hospital, or fpc...) When possible be specific @ -No Did you speak to anyone other than the patient for history (EMS, parent, family, police, friend...)? What history was obtained from this source @ -No Did you review nursing and triage notes (agree or disagree)? Why? @ -I reviewed and agree with nursing and triage notes Were old charts reviewed (outside hosp., previous admission, EMS record, old EKG, old radiological studies, urgent care reports/EKG's, fpc records)? Report findings @ -No old charts were reviewed Differential Diagnosis (chest pain, altered mental status, abdominal pain women, abdominal pain men, vaginal bleeding, musculoskeletal, weakness, fever, dyspnea, syncope, headache, dizziness, GI bleed, back pain, seizure, CVA, palpatations, mental health)? @ -Differential Dyspnea: Coronary syndrome, arrhythmia, tamponade, asthma, COPD, pulmonary embolism, pneumonia, pneumothorax, pulmonary effusion, anaphylaxis, diabetic ketoacidosis, flailed chest, pulmonary contusion, diaphragmatic rupture, anemia, neuromuscular, this is not meant to be an all-inclusive list. EKG interpreted by me (3pts min.). @ -as above X-rays interpreted by me (1pt min.). @ -Chest x-ray shows no acute processes CT interpreted by me (1pt min.). @ -None done U/S interpreted by me (1pt. min.). @ -None done What testing was considered but not performed or refused? (CT, X-rays, U/S, labs)? Why? @ -None What meds were considered but not given or refused? Why? @ -None Did you discuss the management of the patient with other professionals (professionals i.e. [facility] Collins, [employer]ER, lab, RT, psych nurse, social security specialist, tab machine operator, teacher, commanding officer motorized squad, insurance case manager)? Give summary @ -See above Was smoking cessation discussed for >3mins.? @ -No Was critical care preformed (if so, how long)? @ -yes 33 minutes Were there social determinants of health that impacted care today? How? (Homelessness, low income, unemployed, alcoholism, drug addiction, transportation, low edu. Level, literacy, decrease access to med. care, fci, rehab)? @ -No Was there de-escalation of care discussed even if they declined (Discuss DNR or withdrawal of care, Hospice)? DNR status @ -No What co-morbidities impacted this encounter? (DM, HTN, Smoking, COPD, CAD, Cancer, CVA, ARF, Chemo, Hep., AIDS, mental health diagnosis, sleep apnea, morbid obesity)? @ -None Was patient admitted / discharged? Hospital course, mention meds given and route, prescriptions, significant lab abnormalities, going to OR and other pertinent info. @ -63-year-old female presents with chief complaint of dyspnea and atraumatic right hip pain. Patient told. At the bedside. Vital signs stable. Patient not dyspneic at the bedside. She is in no acute distress. Not hypoxic nontachypneic. She does report some symptoms of URI. Laboratory evaluation obtained. CBC, coag panel within acceptable limits. A just a d-dimer is normal. Metabolic panel shows an 1:15 however a sugar of 1004-13 suggesting pseudohyponatremia. There is a mild gap acidosis. Elevated troponin of 0.194. BNP of 9000. Viral panel is negative. Patient will be admitted to 3 S. Undiagnosed new problem with uncertain prognosis? @ -No Drug Therapy requiring intensive monitoring for toxicity (Heparin, Nitro, Insulin, Cardizem)? @ -No Were any procedures done? @ -No Diagnosis/symptom? Acute, or Chronic, or Acute on Chronic? Uncomplicated (without systemic symptoms) or Complicated (systemic symptoms)? @ -Hyperglycemia, elevated troponin, pseudohyponatremia Side effects of treatment? @ -No Exacerbation, Progression, or Severe Exacerbation? @ -No Poses a threat to life or bodily function? How? (Chest pain, USA, IA, pneumonia, PE, COPD, DKA, ARF, appy, cholecystitis, CVA, Diverticulitis, Homicidal, Suicidal, threat to staff... and all critical care pts) @ -yes - Lab Data Result diagrams: 06/04/23 21:08 06/04/23 21:08 Lab Results 06/04/23 06/04/23 06/04/23 Range/Units 21:08 21:08 21:17 WBC 8.0 (3.8-10.6) k/uL RBC 3.37 L (3.80-5.40) m/uL Hgb 10.2 L (11.4-16.0) gm/dL Hct 35.2 (34.0-46.0) % MCV 104.3 H D (80.0-100.0) fL MCH 30.1 (25.0-35.0) pg MCHC 28.9 L (31.0-37.0) g/dL RDW 14.3 (11.5-15.5) % Plt Count 250 (150-450) k/uL MPV 8.2 Neutrophils % 87 % Lymphocytes % 8 % Monocytes % 3 % Eosinophils % 2 % Basophils % 0 % Neutrophils # 6.9 (1.3-7.7) k/uL Lymphocytes # 0.6 L (1.0-4.8) k/uL Monocytes # 0.3 (0-1.0) k/uL Eosinophils # 0.1 (0-0.7) k/uL Basophils # 0.0 (0-0.2) k/uL Hypochromasia Marked Macrocytosis Moderate PT (10.0-12.5) sec INR (<1.2) APTT (22.0-30.0) sec D-Dimer (<0.60) mg/L FEU Sodium 115 L* (137-145) mmol/L Potassium 5.5 H (3.5-5.1) mmol/L Chloride 83 L (98-107) mmol/L Carbon Dioxide 15 L (22-30) mmol/L Anion Gap 17 mmol/L BUN 27 H (7-17) mg/dL Creatinine 1.12 H (0.52-1.04) mg/dL Est GFR (CKD-EPI)AfAm 60 (>60 ml/min/1.73 sqM) Est GFR (CKD-EPI)NonAf 52 (>60 ml/min/1.73 sqM) Glucose 1413 H* (74-99) mg/dL POC Glucose (mg/dL) >600 H (70-110) mg/dL POC Glu Sap Basis Consultant ID Rizwan Romo Calcium 8.8 (8.4-10.2) mg/dL Total Bilirubin 0.5 (0.2-1.3) mg/dL AST 22 (14-36) U/L ALT 18 (4-34) U/L Alkaline Phosphatase 183 H (38-126) U/L Troponin I (0.000-0.034) ng/mL NT-Pro-B Natriuret Pep 9180 pg/mL Total Protein 6.6 (6.3-8.2) g/dL Albumin 4.1 (3.5-5.0) g/dL Influenza Type A (PCR) (Not Detectd) Influenza Type B (PCR) (Not Detectd) RSV (PCR) (Not Detectd) SARS-CoV-2 (PCR) (Not Detectd) 06/04/23 06/04/23 06/04/23 Range/Units 21:53 21:53 21:53 WBC (3.8-10.6) k/uL RBC (3.80-5.40) m/uL Hgb (11.4-16.0) gm/dL Hct (34.0-46.0) % MCV (80.0-100.0) fL MCH (25.0-35.0) pg MCHC (31.0-37.0) g/dL RDW (11.5-15.5) % Plt Count (150-450) k/uL MPV Neutrophils % % Lymphocytes % % Monocytes % % Eosinophils % % Basophils % % Neutrophils # (1.3-7.7) k/uL Lymphocytes # (1.0-4.8) k/uL Monocytes # (0-1.0) k/uL Eosinophils # (0-0.7) k/uL Basophils # (0-0.2) k/uL Hypochromasia Macrocytosis PT 10.0 (10.0-12.5) sec INR 0.9 (<1.2) APTT 20.5 L (22.0-30.0) sec D-Dimer 0.56 (<0.60) mg/L FEU Sodium (137-145) mmol/L Potassium (3.5-5.1) mmol/L Chloride (98-107) mmol/L Carbon Dioxide (22-30) mmol/L Anion Gap mmol/L BUN (7-17) mg/dL Creatinine (0.52-1.04) mg/dL Est GFR (CKD-EPI)AfAm (>60 ml/min/1.73 sqM) Est GFR (CKD-EPI)NonAf (>60 ml/min/1.73 sqM) Glucose (74-99) mg/dL POC Glucose (mg/dL) (70-110) mg/dL POC Glu Sap Basis Consultant ID Calcium (8.4-10.2) mg/dL Total Bilirubin (0.2-1.3) mg/dL AST (14-36) U/L ALT (4-34) U/L Alkaline Phosphatase (38-126) U/L Troponin I 0.194 H* (0.000-0.034) ng/mL NT-Pro-B Natriuret Pep pg/mL Total Protein (6.3-8.2) g/dL Albumin (3.5-5.0) g/dL Influenza Type A (PCR) Not Detected (Not Detectd) Influenza Type B (PCR) Not Detected (Not Detectd) RSV (PCR) Not Detected (Not Detectd) SARS-CoV-2 (PCR) Not Detected (Not Detectd) Disposition Clinical Impression: Hyperglycemia Disposition: ADMITTED IP TO THIS HOSP Condition: Serious Referrals: Sahra Elder MD [Primary Care Provider] - 1-2 days Decision Time: 00:36
[2023-06-04 22:06] LABS: Basophils % (A) 0 %; Eosinophils # (A) 0.1 k/uL (0-0.7); Eosinophils % (A) 2 %; HCT 35.2 % (34.0-46.0); HGB 10.2 gm/dL (11.4-16.0); Hypochromasia Marked; Lymphocytes # (A) 0.6 k/uL (1.0-4.8); Lymphocytes % (A) 8 %; MCH 30.1 pg (25.0-35.0); MCHC 28.9 g/dL (31.0-37.0); Macrocytosis Moderate; Mean Platelet Volume 8.2; Monocytes # (A) 0.3 k/uL (0-1.0); Monocytes % (A) 3 %; Neutrophils # (A) 6.9 k/uL (1.3-7.7); Neutrophils % (A) 87 %; Platelet Count 250 k/uL (150-450); RBC 3.37 m/uL (3.80-5.40); RDW 14.3 % (11.5-15.5)
[2023-06-04 22:09] LABS: MCV 104.3 fL (80.0-100.0)
[2023-06-04 22:27] LABS: INR 0.9 (<1.2)
[2023-06-04 22:31] LABS: ALT 18 U/L (4-34); AST 22 U/L (14-36); African American GFR (CKD) 60 (>60 ml/min/1.73 sqM); Albumin 4.1 g/dL (3.5-5.0); Alkaline Phosphatase 183 U/L (38-126); Anion Gap 17 mmol/L; Blood Urea Nitrogen 27 mg/dL (7-17); Calcium 8.8 mg/dL (8.4-10.2); Carbon Dioxide 15 mmol/L (22-30); Chloride 83 mmol/L (98-107); Non-African American GFR(CKD) 52 (>60 ml/min/1.73 sqM); Potassium 5.5 mmol/L (3.5-5.1); Total Bilirubin 0.5 mg/dL (0.2-1.3); Total Protein 6.6 g/dL (6.3-8.2)
[2023-06-04 22:37] LABS: Partial Thromboplastin Time 20.5 sec (22.0-30.0)
[2023-06-04 22:39] LABS: NT-Pro-B-Type Natriuretic Pept 9180 pg/mL
[2023-06-04 22:59] LABS: Sodium 115 mmol/L (137-145)
--- NOTE | 2023-06-04 23:05 | XR ---
EXAM: XR Chest, 2 Views CLINICAL HISTORY: ITS.REASON XR Reason: dyspnea TECHNIQUE: Frontal and lateral views of the chest. COMPARISON: No relevant prior studies available. FINDINGS: Lungs: Unremarkable. No consolidation. Pleural space: Unremarkable. No pneumothorax. Heart: Unremarkable. No cardiomegaly. Appendage clip. Mediastinum: Unremarkable. Normal mediastinal contour. Bones/joints: Unremarkable. No acute fracture. IMPRESSION: No focal infiltrate.
[2023-06-04 23:07] LABS: Glucose 1413 mg/dL (74-99)
--- NOTE | 2023-06-04 23:07 | XR ---
EXAM: XR Right Hip With Pelvis When Performed, 1 View CLINICAL HISTORY: ITS.REASON XR Reason: non traumatic pain TECHNIQUE: Frontal view of the right hip with pelvis when performed. COMPARISON: No relevant prior studies available. FINDINGS: Bones/joints: Osseous demineralization. No fracture or dislocation. Soft tissues: Unremarkable. IMPRESSION: No acute findings in the right hip. The need for MRI should be determined clinically.
[2023-06-04] MEDS ORDERED: SODIUM CHLORIDE 0.9% 1,000 ML IV STA (23:16)
[2023-06-04] MEDS ORDERED: HEPARIN SODIUM 1,000 UN/ML (10ML VL) IV PRN (23:28)
[2023-06-04] MEDS ORDERED: HEPARIN SODIUM 1,000 UN/ML (10ML VL) IV ONE (23:28)
[2023-06-04] MEDS: HEPARIN SOD,PORK IN 0.45% NACL 25,000 UNIT in 0.45% NACL 1 250ML.BAG IV SCH (23:42)
[2023-06-04] MEDS ORDERED: INSULIN REGULAR BOLUS (FROM DRIP BAG) IV ONE (23:47)
[2023-06-04] MEDS ORDERED: DEXTROSE 50% SYRINGE 50 ML IVP PRN ×2 (23:47)
[2023-06-04] MEDS ORDERED: NALOXONE 0.4 MG/ML 1 ML VIAL IV PRN (23:56)
[2023-06-04] MEDS ORDERED: ASPIRIN 81 MG PO STA (23:58)
[2023-06-05] MEDS ORDERED: INSULIN REGULAR 100 UNIT in SODIUM CHLORIDE 0.9% 100 ML IV SCH ×2
[2023-06-05] MEDS: SODIUM CHLORIDE 0.9% 1,000 ML IV SCH ×5 (00:26→21:14)
[2023-06-05 00:33] LABS: Glucose,Whole Blood >600 mg/dL (70-110)
[2023-06-05 02:01] LABS: Glucose,Whole Blood >600 mg/dL (70-110)
[2023-06-05 03:02] LABS: Glucose,Whole Blood 558 mg/dL (70-110)
[2023-06-05 04:03] LABS: Glucose,Whole Blood 371 mg/dL (70-110)
[2023-06-05] MEDS ORDERED: HYDROcodone/APAP 7.5-325MG 1 EACH TAB PO ONE (04:51)
[2023-06-05 05:01] LABS: Glucose,Whole Blood 183 mg/dL (70-110)
[2023-06-05 05:17] LABS: ALT 18 U/L (4-34); AST 22 U/L (14-36); African American GFR (CKD) 73 (>60 ml/min/1.73 sqM); Albumin 3.9 g/dL (3.5-5.0); Alkaline Phosphatase 171 U/L (38-126); Anion Gap 15 mmol/L; Blood Urea Nitrogen 24 mg/dL (7-17); Calcium 9.1 mg/dL (8.4-10.2); Carbon Dioxide 18 mmol/L (22-30); Chloride 98 mmol/L (98-107); Glucose 339 mg/dL (74-99); Non-African American GFR(CKD) 63 (>60 ml/min/1.73 sqM); Potassium 3.6 mmol/L (3.5-5.1); Sodium 131 mmol/L (137-145); Total Bilirubin 0.4 mg/dL (0.2-1.3); Total Protein 6.8 g/dL (6.3-8.2)
[2023-06-05 05:55] LABS: Glucose,Whole Blood 124 mg/dL (70-110)
[2023-06-05 06:29] LABS: Glucose,Whole Blood 91 mg/dL (70-110)
[2023-06-05] MEDS ORDERED: DEXTROSE 50% SYRINGE 50 ML IVP PRN ×2 (06:40)
[2023-06-05 08:34] LABS: Glucose,Whole Blood 264 mg/dL (70-110)
[2023-06-05] MEDS: INSULIN DETEMIR (LEVEMIR) 100 UNIT/ML SYR SQ SCH ×2 (08:58→21:09)
[2023-06-05] MEDS: INSULIN ASPART (NovoLOG) 100 UNIT/ML VIAL SQ SCH ×4 (08:58→21:09)
[2023-06-05 10:08] LABS: ALT 13 U/L (4-34); AST 28 U/L (14-36); African American GFR (CKD) 84 (>60 ml/min/1.73 sqM); Albumin 4.2 g/dL (3.5-5.0); Alkaline Phosphatase 188 U/L (38-126); Anion Gap 16 mmol/L; Blood Urea Nitrogen 24 mg/dL (7-17); Calcium 9.3 mg/dL (8.4-10.2); Carbon Dioxide 18 mmol/L (22-30); Chloride 100 mmol/L (98-107); Glucose 255 mg/dL (74-99); Non-African American GFR(CKD) 73 (>60 ml/min/1.73 sqM); Potassium 4.2 mmol/L (3.5-5.1); Sodium 134 mmol/L (137-145); Total Bilirubin 0.6 mg/dL (0.2-1.3); Total Protein 7.3 g/dL (6.3-8.2)
[2023-06-05] MEDS ORDERED: BUTALB/APAP/CAFF 50-325-40MG TAB PO PRN (10:42)
[2023-06-05] MEDS ORDERED: MECLIZINE 25 MG TAB PO PRN (10:42)
[2023-06-05] MEDS ORDERED: METOCLOPRAMIDE 5 MG TAB PO PRN (10:42)
[2023-06-05] MEDS ORDERED: IPRATROPIUM-ALBUTEROL 3 ML NEB INHALATION PRN (10:42)
[2023-06-05] MEDS ORDERED: ACETAMINOPHEN TAB 325 MG TAB PO PRN (10:42)
--- NOTE | 2023-06-05 12:18 | P.HPIM ---
History of Present Illness H&P Date: 06/05/23 History of present illness; patient is a 63-year-old lady with past medical hist ory significant for coronary disease, insulin-dependent diabetes mellitus, hypothyroidism presents to ER because of shortness of breath and hip pain. Patient stated that she was all right one day back when she started noticing increasing shortness of breath on exertion. Denies any chest pain. Patient also complaining of orthopnea but no PND. There was no complain of swelling of feet. Patient also complaining of cough. Denies any fever or chills. Patient wass complaining of runny nose. Patient also complaining of right hip pain. States it was hard to stand up and ambulate. Denies any trauma. Because of the symptoms, patient was brought to the ER Initial lab work done in the ER showed WBC 8, hemoglobin 10.2, platelet count 250, sodium 150, potassium 5.5 a 9 17, BUN 27, creatinine 1.12, glucose 1413, troponin 0.194, proBNP 9180 Influenza A not detected Influenza B not detected RSV not detected COVID-19 not detected EKG done in the ER showed heart rate of 104 , no ST segment depression seen, T- wave inversions in lead 1 and aVL Chest x-ray done in the ER showed no focal infiltrate Hip x-ray done showed no fracture seen in right hip Because of elevated blood sugar levels , patient was started on insulin drip, patient blood sugars improved and later was switched to subcu insulin Patient admitted to internal medicine service REVIEW OF SYSTEMS: CONSTITUTIONAL: No fever, no malaise, no fatigue. HEENT: No recent visual problems or hearing problems. Denied any sore throat. CARDIOVASCULAR: As mentioned in HPI PULMONARY: As mentioned in HPI GASTROINTESTINAL: No diarrhea, no nausea, no vomiting, no abdominal pain. NEUROLOGICAL: No headaches, no weakness, no numbness. HEMATOLOGICAL: Denies any bleeding or petechiae. GENITOURINARY: Denies any burning micturition, frequency, or urgency. MUSCULOSKELETAL/RHEUMATOLOGICAL: As mentioned in HPI ENDOCRINE: Denies any polyuria or polydipsia. The rest of the 14-point review of systems is negative. PHYSICAL EXAMINATION: GENERAL: The patient is alert and oriented x3, not in any acute distress. Well developed, well nourished. HEENT: Pupils are round and equally reacting to light. EOMI. No scleral icterus. No conjunctival pallor. Normocephalic, atraumatic. No pharyngeal erythema. No thyromegaly. CARDIOVASCULAR: S1 and S2 present. No murmurs, rubs, or gallops. PULMONARY: Chest is clear to auscultation, no wheezing or crackles. ABDOMEN: Soft, nontender, nondistended, normoactive bowel sounds. No palpable organomegaly. MUSCULOSKELETAL: No joint swelling or deformity. EXTREMITIES: No cyanosis, clubbing, or pedal edema. NEUROLOGICAL: Gross neurological examination did not reveal any focal deficits. SKIN: No rashes. Assessment and plan Non-ST elevated MS Pseudohyponatremia Hyperglycemia hyperosmolar state DKA Hypothyroidism Depression COPD Hypertension Restless leg syndrome Gastroesophageal reflux disease Monitor vital signs Monitor CBC Monitor CMP Continue telemetry monitoring Trend troponin Ordered 2-D echo Continue pharmacy dose heparin Patient received IV fluids and insulin drip in the ER, repeat blood work showed improvement in anion gap and normalization of sodium with improvement in blood sugar levels. Insulin drip was discontinued and patient was switched to sliding scale insulin and insulin Levemir Consult cardiology Consult orthopedic for right hip pain Resume home meds Labs and medication were reviewed.. Continue same treatment. Continue with symptomatic treatment. Resume home medication. Monitor labs and vitals. DVT and GI prophylaxis. Further recommendations as per clinical course of the patient Dictation was produced using [employer] dictation software. please excuse any grammatical, word or spelling errors. Past Medical History Past Medical History: Coronary Artery Disease (CAD), Cancer, COPD, CVA/TIA, Diabetes Mellitus, Deep Vein Thrombosis (DVT), Eye Disorder, GERD/Reflux, Hyperlipidemia, Hypertension, Myocardial Infarction (MS), Renal Disease, Rheumatoid Arthritis (RA), Syncope, Thyroid Disorder Additional Past Medical History / Comment(s): 09/16/16 with SBO with surgery/possible septic emboli with cavitary lesions bilateral lungs. Hx: left renal cell carcinoma with partial nephrectomy. 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 DVT left leg 7-8 yrs ago. hypothyroidism, chronic back pain, degenerative disks, hx UTI with sepsis secondary to ESBL producing E. coli 2015 requiring PICC line insertion for IV antibiotics. restless leg syndrome, peripheral neuropathy. Hx bilateral glaucoma, hx syncope r/t low blood sugars. No CPAP use. Last Myocardial Infarction Date:: 2020 History of Any Multi-Drug Resistant Organisms: ESBL, MRSA, VRE Date of last positivie culture/infection: 05/07/16 ESBL, 05/15/16 VRE, MRSA 09/2017 - upper lip MDRO Source:: URINE E.COLI, EC GALLINARUM Past Surgical History: Appendectomy, Bowel Resection, Section, Heart Catheterization, Heart Catheterization With Stent, Hernia Repair Additional Past Surgical History / Comment(s): 09/30 exploratory laparotomy with lysis of adhesions, bowel resection d/t obstruction. repair incarcerated incisional hernia with abdominal washout. thyroidectomy(non functioning). heart cath 06/28 - 100% occluded, unable to stent. partial left nephrectomy for left kidney renal cell carcinoma. colonoscopy, bilateral cataract removal with lens implants, 2 Sections. cardiac stent 03/2021 Past Anesthesia/Blood Transfusion Reactions: No Reported Reaction Date of Last Stent Placement:: 04/06/2021 Past Psychological History: Depression Smoking Status: Former smoker Past Alcohol Use History: None Reported Additional Past Alcohol Use History / Comment(s): STARTED SMOKING AT AGE 8, smoked one to 1.5 packs per day for 50 years. PT STATES SMOKES 3-4 packs PER DAY Stated stopped apr 2023 Past Drug Use History: Marijuana Additional Drug Use History / Comment(s): Uses marijuana once or twice a week . Hx of cocaine use over 20 years ago. - Past Family History Sister(s) Family Medical History: Cancer, Deep Vein Thrombosis (DVT) Additional Family Medical History / Comment(s): Patient has one sister that from liver cancer. Brother(s) Family Medical History: Cancer, Deep Vein Thrombosis (DVT) Additional Family Medical History / Comment(s): Patient has 1 brother with past ETOH, past drug abuse, DVTs. She has a second brother that has from throat cancer. Daughter(s) Family Medical History: Diabetes Mellitus, Myocardial Infarction (MS) Additional Family Medical History / Comment(s): Daughter at 23 yrs old from massive MS. Father Family Medical History: Myocardial Infarction (MS) Additional Family Medical History / Comment(s): from MS at age 44 Mother Family Medical History: Cancer Additional Family Medical History / Comment(s): B/L breast cancer Medications and Allergies Home Medications Medication Instructions Recorded Confirmed Type Venlafaxine HCl [Effexor XR] 225 mg PO DAILY 10/21/16 06/05/23 History Pantoprazole Sodium [Protonix] 40 mg PO BID 04/06/20 06/05/23 History Meclizine [Antivert] 25 mg PO TID PRN 01/16/21 06/05/23 History Ferrous Sulfate [Iron (65 MG 325 mg PO DAILY 10/02/21 06/05/23 History Elemental)] Cetirizine HCl [Zyrtec] 10 mg PO DAILY 07/15/22 06/05/23 History Cholecalciferol [Vitamin D3 (125 125 mcg PO TID 07/15/22 06/05/23 History Mcg = 5000 Iu)] Gabapentin 300 mg PO TID 07/15/22 06/05/23 History Glucagon [Baqsimi] 1 spray NASAL DIRECTED PRN 07/15/22 06/05/23 History Ipratropium-Albuterol Nebulize 3 ml INHALATION RT-QID PRN 07/15/22 06/05/23 History [Duoneb 0.5 mg-3 mg/3 ml Soln] Levothyroxine Sodium [Synthroid] 50 mcg PO DAILY 07/15/22 06/05/23 History Levothyroxine Sodium [Synthroid] 200 mcg PO DAILY 07/15/22 06/05/23 History Magnesium Oxide [Mag-Ox] 400 mg PO DAILY 07/15/22 06/05/23 History Multivitamins, Thera [Multivitamin 1 tab PO DAILY 07/15/22 06/05/23 History (formulary)] Acetaminophen Tab [Tylenol] 650 mg PO Q6HR PRN tab 09/04/22 06/05/23 Rx Aspirin EC [Ecotrin Low Dose] 81 mg PO DAILY 10/03/22 06/05/23 History Butalb/APAP/Caff 50-325-40Mg 1 tab PO BID PRN 10/03/22 06/05/23 History [Fioricet 50-325-40] rOPINIRole HCL [Requip] 0.5 mg PO BID 10/03/22 06/05/23 History Loperamide [Imodium] 2 mg PO TID PRN #21 capsule 10/07/22 06/05/23 Rx HYDROcodone/APAP 7.5-325MG [[place] 1 tab PO BID PRN 01/05/23 06/05/23 History 7.5-325] Rosuvastatin Calcium [Crestor] 40 mg PO HS 01/05/23 06/05/23 History Metoclopramide HCl [Reglan] 5 mg PO TID PRN #30 tablet 01/07/23 06/05/23 Rx Ondansetron Odt [Zofran ODT] 4 mg PO Q8HR PRN #10 tab 01/07/23 06/05/23 Rx INSULIN LISPRO (For Pump) [humaLOG 0.01 units SQ-PUMP CONTINUOUS 04/10/23 06/05/23 History (For Pump)] Isosorbide Mononitrate ER [Imdur] 30 mg PO DAILY 04/10/23 06/05/23 History Mirtazapine 7.5 mg PO HS 04/10/23 06/05/23 History Fluconazole 150 mg PO ONCE PRN 05/04/23 06/05/23 History Metoprolol Succinate (ER) [Toprol 25 mg PO HS 05/16/23 06/05/23 History XL] Allergies Allergy/AdvReac Type Severity Reaction Status Date / Time grass pollen Allergy Unknown Verified 06/05/23 08:15 latex Allergy Rash/Hives Verified 06/05/23 08:15 Sulfa (Sulfonamide Allergy Rash/Hives/ Verified 06/05/23 08:15 Antibiotics) Swelling venom-honey bee Allergy Anaphylaxis Verified 06/05/23 08:15 prochlorperazine edisylate AdvReac Vomiting Verified 06/05/23 08:15 [From Compazine] Physical Exam Vitals: Vital Signs Temp Pulse Resp BP Pulse Ox 06/05/23 02:00 82 20 137/73 97 06/05/23 01:00 82 16 125/70 99 06/05/23 00:00 86 18 143/78 97 06/04/23 20:16 98 F 89 18 110/74 99 Intake and Output 06/04/23 06/05/23 06/05/23 22:59 06:59 14:59 Intake Total 92.232 Balance 92.232 Intake: Intake, IV Titration 92.232 Amount Heparin Sod,Pork in 0.45% 55.245 NaCl 25,000 unit In 0.45 % NaCl 1 250ml.bag @ 12 UNITS/KG/HR 7.62 mls/hr IV .Q24H DURGA Rx#: [id number] Insulin Regular 100 unit 36.987 In Sodium Chloride 0.9% 100 ml @ 0.1 UNITS/KG/HR 6.414 mls/hr IV .[id number] DURGA Rx#:[id number] Other: Weight 63.503 kg Results CBC & Chem 7: 06/04/23 21:08 06/05/23 08:50 Labs: Abnormal Lab Results - Last 24 Hours (Table) 06/04/23 06/04/23 06/04/23 Range/Units 21:08 21:08 21:17 RBC 3.37 L (3.80-5.40) m/uL Hgb 10.2 L (11.4-16.0) gm/dL MCV 104.3 H D (80.0-100.0) fL MCHC 28.9 L (31.0-37.0) g/dL Lymphocytes # 0.6 L (1.0-4.8) k/uL APTT (22.0-30.0) sec Sodium 115 L* (137-145) mmol/L Potassium 5.5 H (3.5-5.1) mmol/L Chloride 83 L (98-107) mmol/L Carbon Dioxide 15 L (22-30) mmol/L BUN 27 H (7-17) mg/dL Creatinine 1.12 H (0.52-1.04) mg/dL Glucose 1413 H* (74-99) mg/dL POC Glucose (mg/dL) >600 H (70-110) mg/dL Alkaline Phosphatase 183 H (38-126) U/L Troponin I (0.000-0.034) ng/mL 06/04/23 06/04/23 06/05/23 Range/Units 21:53 21:53 00:31 RBC (3.80-5.40) m/uL Hgb (11.4-16.0) gm/dL MCV (80.0-100.0) fL MCHC (31.0-37.0) g/dL Lymphocytes # (1.0-4.8) k/uL APTT 20.5 L (22.0-30.0) sec Sodium (137-145) mmol/L Potassium (3.5-5.1) mmol/L Chloride (98-107) mmol/L Carbon Dioxide (22-30) mmol/L BUN (7-17) mg/dL Creatinine (0.52-1.04) mg/dL Glucose (74-99) mg/dL POC Glucose (mg/dL) >600 H (70-110) mg/dL Alkaline Phosphatase (38-126) U/L Troponin I 0.194 H* (0.000-0.034) ng/mL 06/05/23 06/05/23 06/05/23 Range/Units 01:59 02:59 03:56 RBC (3.80-5.40) m/uL Hgb (11.4-16.0) gm/dL MCV (80.0-100.0) fL MCHC (31.0-37.0) g/dL Lymphocytes # (1.0-4.8) k/uL APTT (22.0-30.0) sec Sodium 131 L (137-145) mmol/L Potassium (3.5-5.1) mmol/L Chloride (98-107) mmol/L Carbon Dioxide 18 L (22-30) mmol/L BUN 24 H (7-17) mg/dL Creatinine (0.52-1.04) mg/dL Glucose 339 H (74-99) mg/dL POC Glucose (mg/dL) >600 H 558 H (70-110) mg/dL Alkaline Phosphatase 171 H (38-126) U/L Troponin I (0.000-0.034) ng/mL 06/05/23 06/05/23 06/05/23 Range/Units 04:01 04:58 05:53 RBC (3.80-5.40) m/uL Hgb (11.4-16.0) gm/dL MCV (80.0-100.0) fL MCHC (31.0-37.0) g/dL Lymphocytes # (1.0-4.8) k/uL APTT (22.0-30.0) sec Sodium (137-145) mmol/L Potassium (3.5-5.1) mmol/L Chloride (98-107) mmol/L Carbon Dioxide (22-30) mmol/L BUN (7-17) mg/dL Creatinine (0.52-1.04) mg/dL Glucose (74-99) mg/dL POC Glucose (mg/dL) 371 H 183 H 124 H (70-110) mg/dL Alkaline Phosphatase (38-126) U/L Troponin I (0.000-0.034) ng/mL 06/05/23 06/05/23 06/05/23 Range/Units 06:23 06:23 08:32 RBC (3.80-5.40) m/uL Hgb (11.4-16.0) gm/dL MCV (80.0-100.0) fL MCHC (31.0-37.0) g/dL Lymphocytes # (1.0-4.8) k/uL APTT 40.5 H (22.0-30.0) sec Sodium (137-145) mmol/L Potassium (3.5-5.1) mmol/L Chloride (98-107) mmol/L Carbon Dioxide (22-30) mmol/L BUN (7-17) mg/dL Creatinine (0.52-1.04) mg/dL Glucose (74-99) mg/dL POC Glucose (mg/dL) 264 H (70-110) mg/dL Alkaline Phosphatase (38-126) U/L Troponin I 0.232 H* (0.000-0.034) ng/mL 06/05/23 Range/Units 08:50 RBC (3.80-5.40) m/uL Hgb (11.4-16.0) gm/dL MCV (80.0-100.0) fL MCHC (31.0-37.0) g/dL Lymphocytes # (1.0-4.8) k/uL APTT (22.0-30.0) sec Sodium 134 L (137-145) mmol/L Potassium (3.5-5.1) mmol/L Chloride (98-107) mmol/L Carbon Dioxide 18 L (22-30) mmol/L BUN 24 H (7-17) mg/dL Creatinine (0.52-1.04) mg/dL Glucose 255 H (74-99) mg/dL POC Glucose (mg/dL) (70-110) mg/dL Alkaline Phosphatase 188 H (38-126) U/L Troponin I (0.000-0.034) ng/mL
[2023-06-05] MEDS: LEVOTHYROXINE 50 MCG TAB PO SCH (12:30)
[2023-06-05] MEDS: ASPIRIN 81 MG PO SCH (12:30)
[2023-06-05] MEDS: LEVOTHYROXINE 100 MCG TAB PO SCH (12:30)
[2023-06-05 12:34] LABS: Glucose,Whole Blood 281 mg/dL (70-110)
[2023-06-05 13:21] LABS: African American GFR (CKD) >90 (>60 ml/min/1.73 sqM); Anion Gap 11 mmol/L; Blood Urea Nitrogen 23 mg/dL (7-17); Calcium 8.9 mg/dL (8.4-10.2); Carbon Dioxide 21 mmol/L (22-30); Chloride 100 mmol/L (98-107); Glucose 230 mg/dL (74-99); Non-African American GFR(CKD) 82 (>60 ml/min/1.73 sqM); Potassium 4.4 mmol/L (3.5-5.1); Sodium 132 mmol/L (137-145)
[2023-06-05] MEDS ORDERED: ALPRAZolam 0.25 MG TAB PO PRN (14:41)
[2023-06-05] MEDS ORDERED: ALPRAZolam 0.5 MG TAB PO PRN (14:41)
[2023-06-05] MEDS ORDERED: NITROGLYCERIN SL TABS 0.4 MG TAB SUBLINGUAL PRN (14:41)
[2023-06-05 15:14] LABS: Glucose,Whole Blood 365 mg/dL (70-110)
[2023-06-05 15:53] LABS: African American GFR (CKD) 57 (>60 ml/min/1.73 sqM); Anion Gap 11 mmol/L; Blood Urea Nitrogen 23 mg/dL (7-17); Calcium 8.8 mg/dL (8.4-10.2); Carbon Dioxide 22 mmol/L (22-30); Chloride 99 mmol/L (98-107); Glucose 343 mg/dL (74-99); Non-African American GFR(CKD) 50 (>60 ml/min/1.73 sqM); Potassium 4.9 mmol/L (3.5-5.1); Sodium 132 mmol/L (137-145)
[2023-06-05 17:17] LABS: Glucose,Whole Blood 374 mg/dL (70-110)
[2023-06-05] MEDS: PANTOPRAZOLE 40 MG TABLET PO SCH (17:28)
[2023-06-05] MEDS: GABAPENTIN 300 MG CAP PO SCH ×2 (17:28→21:08)
[2023-06-05] MEDS: CHOLECALCIFEROL 125 MCG (5000 IU) TABLET PO SCH ×2 (17:28→21:08)
[2023-06-05 20:41] LABS: Glucose,Whole Blood 457 mg/dL (70-110)
[2023-06-05] MEDS: METOPROLOL SUCCINATE (ER) 25 MG TAB.ER.24H PO SCH (21:08)
[2023-06-05] MEDS: HYDROcodone/APAP 7.5-325MG 1 EACH TAB PO PRN (21:08)
[2023-06-05] MEDS: MIRTAZAPINE 15 MG TAB PO SCH (21:08)
[2023-06-05] MEDS: ATORVASTATIN 80 MG TAB PO SCH (21:08)
--- NOTE | 2023-06-05 21:50 | CONS ---
CONSULTATION HISTORY OF PRESENT ILLNESS: Lala Kenyon is a 63-year-old lady with a known history of CAD, hypertension, type 2 diabetes, who came in with hyperglycemia, mild acidosis from which she has resolved. She feels better, but she also came in with shortness of breath. She complained of some right hip pain. Her shortness of breath has improved. She has elevated troponin and the profile suggests a [id number] TX. Chest x-ray is otherwise unremarkable. Her EKG revealed sinus mechanism with QS pattern in leads V1 to V2 with LVH and repolarization changes. Compared to the previous EKG, the ST-segment changes are slightly more prominent but may not be significant. Her troponin initially was 0.19, it has gone up to 0.22. She is resting comfortably and her shortness of breath has improved. PAST MEDICAL HISTORY: 1. CAD with previous stenting of LAD. Recent cardiac cath in December revealed that she had moderate disease, was advised medical therapy. 2. History of palpitations. She has a loop recorder as well. 3. Type 2 diabetes mellitus. 4. Hypertension. 5. Hyperlipidemia. MEDICATIONS AT HOME: 1. Crestor. 2. Metoprolol succinate. 3. Reglan. 4. Levothyroxine. 5. Imdur. 6. Insulin. 7. She also takes Protonix. ALLERGIES: She is allergic to sulfa. No contrast allergy. PHYSICAL EXAMINATION: VITAL SIGNS: Blood pressure is 140/70, pulse rate is 76 per minute sinus. HEENT: Unremarkable, fundus was not examined. NECK: Supple. No JVD. I do not hear a carotid bruit. HEART: Reveals S1, S2 with a short systolic murmur. LUNGS: Bilateral decent air entry. ABDOMEN: Soft, nontender. EXTREMITIES: Lower extremities reveal diminished pulses. NEUROLOGIC: Central nervous system grossly within normal limits. IMAGING: EKG revealed sinus mechanism with IVCD, ST-T abnormality, LVH. IMPRESSION: 1. Hyperglycemia with mild ketoacidosis, resolved. 2. Hypertension. 3. Hyperlipidemia. 4. CAD with prior LAD stenting, now presents with [id number] TX. RECOMMENDATIONS: I am recommending heparinization, cardiac cath tomorrow. Risks, benefits, options, and rationale explained. Patient understands and wishes to proceed with the procedure. Thank you very much for the consult. MMODL / IJN: [id number] /
[2023-06-06] MEDS: HEPARIN SOD,PORK IN 0.45% NACL 25,000 UNIT in 0.45% NACL 1 250ML.BAG IV SCH ×2 (00:48→23:06)
[2023-06-06] MEDS: SODIUM CHLORIDE 0.9% 1,000 ML IV SCH ×3 (00:58→16:55)
[2023-06-06 04:04] LABS: Basophils % (A) 1 %; Eosinophils # (A) 0.3 k/uL (0-0.7); Eosinophils % (A) 5 %; HCT 29.1 % (34.0-46.0); HGB 9.4 gm/dL (11.4-16.0); Lymphocytes # (A) 1.8 k/uL (1.0-4.8); Lymphocytes % (A) 30 %; MCH 29.5 pg (25.0-35.0); MCHC 32.4 g/dL (31.0-37.0); Mean Platelet Volume 8.1; Monocytes # (A) 0.2 k/uL (0-1.0); Monocytes % (A) 4 %; Neutrophils # (A) 3.5 k/uL (1.3-7.7); Neutrophils % (A) 59 %; Platelet Count 226 k/uL (150-450); RDW 14.6 % (11.5-15.5)
[2023-06-06 05:13] LABS: ALT 13 U/L (4-34); AST 25 U/L (14-36); African American GFR (CKD) 49 (>60 ml/min/1.73 sqM); Albumin 3.4 g/dL (3.5-5.0); Alkaline Phosphatase 156 U/L (38-126); Anion Gap 8 mmol/L; Blood Urea Nitrogen 30 mg/dL (7-17); Calcium 8.5 mg/dL (8.4-10.2); Carbon Dioxide 22 mmol/L (22-30); Chloride 99 mmol/L (98-107); Glucose 431 mg/dL (74-99); Non-African American GFR(CKD) 43 (>60 ml/min/1.73 sqM); Potassium 4.9 mmol/L (3.5-5.1); Sodium 129 mmol/L (137-145); Total Bilirubin 0.2 mg/dL (0.2-1.3); Total Protein 6.1 g/dL (6.3-8.2)
[2023-06-06 06:04] LABS: Glucose,Whole Blood 412 mg/dL (70-110)
[2023-06-06] MEDS: ASPIRIN 81 MG PO SCH (06:11)
[2023-06-06] MEDS: PANTOPRAZOLE 40 MG TABLET PO SCH ×2 (06:11→17:04)
[2023-06-06] MEDS: LORATADINE 10 MG TAB PO SCH (06:11)
[2023-06-06] MEDS: ISOSORBIDE MONONITRATE ER 30 MG TAB.ER.24H PO SCH (06:11)
[2023-06-06] MEDS: GABAPENTIN 300 MG CAP PO SCH ×3 (06:11→21:12)
[2023-06-06] MEDS: HYDROcodone/APAP 7.5-325MG 1 EACH TAB PO PRN ×2 (06:11→21:12)
[2023-06-06] MEDS: LEVOTHYROXINE 50 MCG TAB PO SCH (06:11)
[2023-06-06] MEDS: MAGNESIUM OXIDE 400 MG TAB PO SCH (06:12)
[2023-06-06] MEDS: CHOLECALCIFEROL 125 MCG (5000 IU) TABLET PO SCH ×3 (06:12→21:12)
[2023-06-06] MEDS: LEVOTHYROXINE 100 MCG TAB PO SCH (06:12)
[2023-06-06] MEDS: FERROUS SULFATE 325 MG TAB PO SCH (06:13)
[2023-06-06] MEDS: INSULIN ASPART (NovoLOG) 100 UNIT/ML VIAL SQ SCH ×5 (06:13→21:12)
[2023-06-06] MEDS: MULTIVITAMINS, THERA 1 EACH TAB PO SCH (06:13)
[2023-06-06] MEDS: VENLAFAXINE HCL ER 75 MG CAP PO SCH (06:44)
[2023-06-06] MEDS ORDERED: HEPARIN SODIUM,PORCINE 10,000 UNIT in SODIUM CHLORIDE 0.9% 1,000 ML IRRIGATION PRN (07:00)
[2023-06-06] MEDS ORDERED: HEPARIN SODIUM,PORCINE (1 ML) 2,500 UNIT in SODIUM CHLORIDE 0.9% 250 ML IRRIGATION PRN (07:00)
[2023-06-06] MEDS ORDERED: SODIUM CHLORIDE 0.9% 500 ML 500 ML IV ONE (09:30)
[2023-06-06] MEDS ORDERED: MIDAZOLAM 2 MG/2 ML VIAL IVP ONE (09:48)
[2023-06-06] MEDS ORDERED: fentaNYL (PF) 50 MCG/ML 2 ML AMP IVP ONE (09:48)
[2023-06-06] MEDS ORDERED: LIDOCAINE 1% INJ 10MG/ML (20 ML MDV) SQ ONE (09:51)
[2023-06-06] MEDS ORDERED: DEXTROSE 50% SYRINGE 50 ML IVP PRN ×2 (10:02)
[2023-06-06] MEDS ORDERED: IOPAMIDOL-370 100ML BTL INJ ONE (10:15)
--- NOTE | 2023-06-06 11:01 | CA ---
Transthoracic Echo Report Name: Lala Kenyon Age: 63 Gender: F : 1960 Exam Date: 06/06/2023 07:58 Exam Location: [place] [facility] Ht (in): 64 Wt (lb): 140 Ordering Physician: Gerry Ovalle MD Attending/Referring Phys: [employer]ner Evon Dudley [facility] Procedure CPT: Indications: SHORTNESS OF BREATH Cardiac Hx: Technical Quality: Fair Contrast 1: Definity Total Dose (mL): 6 Contrast 2: Total Dose (mL): MEASUREMENTS (Male / Female) Normal Values 2D ECHO LV Diastolic Diameter PLAX 4.6 cm 4.2 - 5.9 / 3.9 - 5.3 cm LV Systolic Diameter PLAX 3.5 cm IVS Diastolic Thickness 1.0 cm 0.6 - 1.0 / 0.6 - 0.9 cm LVPW Diastolic Thickness 1.2 cm 0.6 - 1.0 / 0.6 - 0.9 cm LV Relative Wall Thickness 0.5 LVOT Diameter 2.0 cm LV Diastolic Volume MOD BP 108.0 cm??? 67 - 155 / 56 - 104 cm??? LV Systolic Volume MOD BP 57.8 cm??? 22 - 58 / 19 - 49 cm??? LV Ejection Fraction MOD BP 46.5 % >= 55 % LV Cardiac Index MOD BP 2181.9 cm???/min???m??? LV Diastolic Volume MOD 4C 115.6 cm??? LV Systolic Volume MOD 4C 74.7 cm??? LV Ejection Fraction MOD 4C 35.4 % LV Cardiac Index MOD 4C 1781.1 cm???/min???m??? LV Diastolic Length 4C 8.3 cm LV Systolic Length 4C 7.9 cm LV Diastolic Volume MOD 2C 97.6 cm??? LV Systolic Volume MOD 2C 41.4 cm??? LV Ejection Fraction MOD 2C 57.6 % LV Cardiac Index MOD 2C 2442.1 cm???/min???m??? LV Diastolic Length 2C 8.0 cm LV Systolic Length 2C 7.3 cm M-MODE Aortic Root Diameter MM 3.0 cm LA Systolic Diameter MM 3.5 cm LA Ao Ratio MM 1.2 AV Cusp Separation MM 2.2 cm DOPPLER AV Peak Velocity 110.9 cm/s AV Peak Gradient 4.9 mmHg AV Mean Velocity 78.5 cm/s AV Mean Gradient 2.7 mmHg AV Velocity Time Integral 19.9 cm LVOT Peak Velocity 88.2 cm/s LVOT Peak Gradient 3.1 mmHg LVOT Velocity Time Integral 15.3 cm LVOT Stroke Volume 50.1 cm??? LVOT Stroke Volume Index 29.8 ml/m??? LVOT Cardiac Index 2179.4 cm???/min???m??? AV Area Cont Eq vti 2.5 cm??? AV Area Cont Eq pk 2.6 cm??? Mitral E Point Velocity 48.6 cm/s Mitral A Point Velocity 79.1 cm/s Mitral E to A Ratio 0.6 MV Deceleration Time 195.9 ms LV E' Lateral Velocity 6.3 cm/s Mitral E to LV E' Lateral Ratio 7.7 LV E' Septal Velocity 3.3 cm/s Mitral E to LV E' Septal Ratio 14.6 TR Peak Velocity 227.1 cm/s TR Peak Gradient 20.6 mmHg Right Atrial Pressure 8.0 mmHg Pulmonary Artery Systolic Pressu 28.6 mmHg Right Ventricular Systolic Press 28.6 mmHg FINDINGS Left Ventricle Mildly increased posterior wall thickness. Mildly increased left ventricular diastolic volume. Left ventricular cavity size normal. Mildly increased left ventricular systolic volume. Mildly decreased left ventricular ejection fraction. Left ventricular ejection fraction is estimated at 45-50%. [place] hypokinetic. Apical septum and apical inferior moya are hypokinetic. Right Ventricle Normal right ventricular size. Right Atrium Normal right atrial size. Left Atrium Mild left atrial dilatation. Mitral Valve Mitral valve thickened. Mild thickening/calcification of the posterior mitral valve leaflet. Mitral annular calcification. Mild mitral regurgitation. Aortic Valve Trileaflet aortic valve. Mild aortic regurgitation. Tricuspid Valve Structurally normal tricuspid valve. Mild tricuspid regurgitation. Pulmonic Valve Structurally normal pulmonic valve. Mild pulmonic regurgitation. Pericardium No pericardial effusion. Aorta Normal size aortic root. CONCLUSIONS 1. Mildly impaired left ventricle systolic function with segmental wall motion abnormality 2. Mild mitral, aortic and tricuspid regurgitation Previewed by: Dr. Mckenzie Cardoso MD (Electronically Signed) Final Date: 06 June 2023 11:00
[2023-06-06 11:04] LABS: Glucose,Whole Blood 116 mg/dL (70-110)
[2023-06-06 12:51] LABS: Glucose,Whole Blood 141 mg/dL (70-110)
--- NOTE | 2023-06-06 13:48 | P.CNOR ---
History of Present Illness - HPI Consult date: 06/06/23 History of present illness: Patient is a 63 -year-old female who presented to the emergency department this morning with a chief complaint of dyspnea and right hip pain for the past day. Patient does have a past medical history significant for CAD, diabetes, hypothyroidism. Orthopedics was consulted for right hip pain. Patient was seen at bedside this morning lying semirecumbent position. Patient mentions she just had cardiac cath performed this morning. Patient states about 2 weeks ago she was at home when she fell landing on her cats litterboxs. Patient states she landed on her right hip. Patient states she did not hit her head and did not lose consciousness during the fall. Patient notes over the past couple days she has noticed increased right hip pain. Patient says is localized over the right hip. Patient denies radiation of pain. Patient states she does use a walker but only when she lays her home. Patient states in her home she does not use a walker or cane. Patient denies any previous orthopedic surgical history. Patient states she has had a series of injections into her low back in the past but is unsure how long go to work. Patient says she has seen a chiropractor for as well but has been a long time. Patient states the pain in the right hip increases during ambulation. Patient states the pain is somewhat controlled with medication. Patient states she does take gabapentin at baseline for neuropathy. Patient denies any other orthopedic complaints at this time. Past Medical History Past Medical History: Coronary Artery Disease (CAD), Cancer, COPD, CVA/TIA, Diabetes Mellitus, Deep Vein Thrombosis (DVT), Eye Disorder, GERD/Reflux, Hyperlipidemia, Hypertension, Myocardial Infarction ([place]), Renal Disease, Rheumatoid Arthritis (RA), Syncope, Thyroid Disorder Additional Past Medical History / Comment(s): 09/16/16 with SBO with surgery/possible septic emboli with cavitary lesions bilateral lungs. Hx: left renal cell carcinoma with partial nephrectomy. 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 DVT left leg 7-8 yrs ago. hypothyroidism, chronic back pain, degenerative disks, hx UTI with sepsis secondary to ESBL producing E. coli 2015 requiring PICC line insertion for IV antibiotics. restless leg syndrome, peripheral neuropathy. Hx bilateral glaucoma, hx syncope r/t low blood sugars. No CPAP use. Last Myocardial Infarction Date:: 2019 History of Any Multi-Drug Resistant Organisms: ESBL, MRSA, VRE Year Discovered:: 05/07/16 ESBL, 05/15/16 VRE, MRSA 09/2017 - upper lip MDRO Source:: URINE E.COLI, EC GALLINARUM Past Surgical History: Appendectomy, Bowel Resection, Section, Heart Catheterization, Heart Catheterization With Stent, Hernia Repair Additional Past Surgical History / Comment(s): 09/30 exploratory laparotomy with lysis of adhesions, bowel resection d/t obstruction. repair incarcerated incis ional hernia with abdominal washout. thyroidectomy(non functioning). heart cath 06/28 - 100% occluded, unable to stent. partial left nephrectomy for left kidney renal cell carcinoma. colonoscopy, bilateral cataract removal with lens implants, 2 Sections. cardiac stent 03/2021 Past Anesthesia/Blood Transfusion Reactions: No Reported Reaction Date of Last Stent Placement:: 04/06/2021 Smoking Status: Former smoker - Past Family History Sister(s) Family Medical History: Cancer, Deep Vein Thrombosis (DVT) Additional Family Medical History / Comment(s): Patient has one sister that from liver cancer. Brother(s) Family Medical History: Cancer, Deep Vein Thrombosis (DVT) Additional Family Medical History / Comment(s): Patient has 1 brother with past ETOH, past drug abuse, DVTs. She has a second brother that has from throat cancer. Daughter(s) Family Medical History: Diabetes Mellitus, Myocardial Infarction ([place]) Additional Family Medical History / Comment(s): Daughter at 23 yrs old from massive [place]. Father Family Medical History: Myocardial Infarction ([place]) Additional Family Medical History / Comment(s): from [place] at age 44 Mother Family Medical History: Cancer Additional Family Medical History / Comment(s): B/L breast cancer Medications and Allergies Home Medications Medication Instructions Recorded Confirmed Type Venlafaxine HCl [Effexor XR] 225 mg PO DAILY 10/21/16 06/05/23 History Pantoprazole Sodium [Protonix] 40 mg PO BID 04/06/20 06/05/23 History Meclizine [Antivert] 25 mg PO TID PRN 01/16/21 06/05/23 History Ferrous Sulfate [Iron (65 MG 325 mg PO DAILY 10/02/21 06/05/23 History Elemental)] Cetirizine HCl [Zyrtec] 10 mg PO DAILY 07/15/22 06/05/23 History Cholecalciferol [Vitamin D3 (125 125 mcg PO TID 07/15/22 06/05/23 History Mcg = 5000 Iu)] Gabapentin 300 mg PO TID 07/15/22 06/05/23 History Glucagon [Baqsimi] 1 spray NASAL DIRECTED PRN 07/15/22 06/05/23 History Ipratropium-Albuterol Nebulize 3 ml INHALATION RT-QID PRN 07/15/22 06/05/23 History [Duoneb 0.5 mg-3 mg/3 ml Soln] Levothyroxine Sodium [Synthroid] 50 mcg PO DAILY 07/15/22 06/05/23 History Levothyroxine Sodium [Synthroid] 200 mcg PO DAILY 07/15/22 06/05/23 History Magnesium Oxide [Mag-Ox] 400 mg PO DAILY 07/15/22 06/05/23 History Multivitamins, Thera [Multivitamin 1 tab PO DAILY 07/15/22 06/05/23 History (formulary)] Acetaminophen Tab [Tylenol] 650 mg PO Q6HR PRN tab 09/04/22 06/05/23 Rx Aspirin EC [Ecotrin Low Dose] 81 mg PO DAILY 10/03/22 06/05/23 History Butalb/APAP/Caff 50-325-40Mg 1 tab PO BID PRN 10/03/22 06/05/23 History [Fioricet 50-325-40] rOPINIRole HCL [Requip] 0.5 mg PO BID 10/03/22 06/05/23 History Loperamide [Imodium] 2 mg PO TID PRN #21 capsule 10/07/22 06/05/23 Rx HYDROcodone/APAP 7.5-325MG [Garfield 1 tab PO BID PRN 01/05/23 06/05/23 History 7.5-325] Rosuvastatin Calcium [Crestor] 40 mg PO HS 01/05/23 06/05/23 History Metoclopramide HCl [Reglan] 5 mg PO TID PRN #30 tablet 01/07/23 06/05/23 Rx Ondansetron Odt [Zofran ODT] 4 mg PO Q8HR PRN #10 tab 01/07/23 06/05/23 Rx INSULIN LISPRO (For Pump) [humaLOG 0.01 units SQ-PUMP CONTINUOUS 04/10/23 06/05/23 History (For Pump)] Isosorbide Mononitrate ER [Imdur] 30 mg PO DAILY 04/10/23 06/05/23 History Mirtazapine 7.5 mg PO HS 04/10/23 06/05/23 History Fluconazole 150 mg PO ONCE PRN 05/04/23 06/05/23 History Metoprolol Succinate (ER) [Toprol 25 mg PO HS 05/16/23 06/05/23 History XL] Allergies Allergy/AdvReac Type Severity Reaction Status Date / Time grass pollen Allergy Unknown Verified 06/05/23 08:15 latex Allergy Rash/Hives Verified 06/05/23 08:15 Sulfa (Sulfonamide Allergy Rash/Hives/ Verified 06/05/23 08:15 Antibiotics) Swelling venom-honey bee Allergy Anaphylaxis Verified 06/05/23 08:15 prochlorperazine edisylate AdvReac Vomiting Verified 06/05/23 08:15 [From Compazine] Physical Examination Inspection: Negative for any open fractures, significant erythema. Some general ized swelling/ecchymosis present in the right leg near the hip. Sensation: Some diminished sensation in the bilateral lower extremities in the feet. Patient does have a history of diabetic neuropathy. Sensation is equal, symmetric, bilaterally intact throughout the rest of the upper and lower ex tremities. Palpation: fair amount of tenderness to palpation diffusely throughout the right hip. Nontender to palpation throughout rest of exam. Range of motion: Patient did have cardiac cath performed this morning and is now unable to move right lower extremity due to procedure. Patient is range of motion throughout bilateral upper extremities and left lower extremity exam. Motor: 4/5 in all major motor groups in left lower extremity and bilateral upper extremities on exam. Right lower extremity exam not performed due to recent cath procedure Neurovascular: Radial pulse intact, 2+ bilaterally. Cap refill under 3 seconds in digits of upper extremity. Special tests: Negative log roll maneuver's bilaterally. Negative clonus bilaterally Results - Labs Labs: Abnormal Lab Results - Last 24 Hours (Table) 06/05/23 06/05/23 06/05/23 Range/Units 14:51 15:07 17:15 RBC (3.80-5.40) m/uL Hgb (11.4-16.0) gm/dL Hct (34.0-46.0) % APTT (22.0-30.0) sec Sodium 132 L (137-145) mmol/L BUN 23 H (7-17) mg/dL Creatinine 1.17 H (0.52-1.04) mg/dL Glucose 343 H (74-99) mg/dL POC Glucose (mg/dL) 365 H 374 H (70-110) mg/dL Hemoglobin A1c (<=6.0) % Alkaline Phosphatase (38-126) U/L Total Protein (6.3-8.2) g/dL Albumin (3.5-5.0) g/dL 06/05/23 06/05/23 06/06/23 Range/Units 19:39 20:39 03:49 RBC (3.80-5.40) m/uL Hgb (11.4-16.0) gm/dL Hct (34.0-46.0) % APTT 43.5 H (22.0-30.0) sec Sodium (137-145) mmol/L BUN (7-17) mg/dL Creatinine (0.52-1.04) mg/dL Glucose (74-99) mg/dL POC Glucose (mg/dL) 457 H (70-110) mg/dL Hemoglobin A1c 10.2 H (<=6.0) % Alkaline Phosphatase (38-126) U/L Total Protein (6.3-8.2) g/dL Albumin (3.5-5.0) g/dL 06/06/23 06/06/23 06/06/23 Range/Units 03:49 03:49 03:49 RBC 3.20 L (3.80-5.40) m/uL Hgb 9.4 L (11.4-16.0) gm/dL Hct 29.1 L (34.0-46.0) % APTT 46.4 H (22.0-30.0) sec Sodium 129 L (137-145) mmol/L BUN 30 H (7-17) mg/dL Creatinine 1.33 H (0.52-1.04) mg/dL Glucose 431 H (74-99) mg/dL POC Glucose (mg/dL) (70-110) mg/dL Hemoglobin A1c (<=6.0) % Alkaline Phosphatase 156 H (38-126) U/L Total Protein 6.1 L (6.3-8.2) g/dL Albumin 3.4 L (3.5-5.0) g/dL 06/06/23 06/06/23 06/06/23 Range/Units 06:03 11:02 12:50 RBC (3.80-5.40) m/uL Hgb (11.4-16.0) gm/dL Hct (34.0-46.0) % APTT (22.0-30.0) sec Sodium (137-145) mmol/L BUN (7-17) mg/dL Creatinine (0.52-1.04) mg/dL Glucose (74-99) mg/dL POC Glucose (mg/dL) 412 H 116 H 141 H (70-110) mg/dL Hemoglobin A1c (<=6.0) % Alkaline Phosphatase (38-126) U/L Total Protein (6.3-8.2) g/dL Albumin (3.5-5.0) g/dL H & H 06/04/23 06/06/23 Range/Units 21:08 03:49 Hgb 10.2 L 9.4 L (11.4-16.0) gm/dL Hct 35.2 29.1 L (34.0-46.0) % Coagulation 06/04/23 Range/Units 21:53 INR 0.9 (<1.2) Result Diagrams: 06/06/23 03:49 06/06/23 03:49 - Diagnostic results Hip x-ray: report reviewed, image reviewed (X-ray of the right hip is negative for any fractures/dislocations. There is some mild osteoarthritis) Assessment and Plan Assessment: 1. Right hip pain status post fall Plan: 1. Right hip pain status post fall - X-ray of the right hip is negative for any fractures/dislocations. There is some mild osteoarthritis. Patient was seen at bedside this morning and examined. I did discuss the findings of the imaging with the patient at bedside. At this time we are not recommending any emergent/urgent orthopedic surgical intervention we are recommending conservative measures with use of pain medication and physical therapy daily during inpatient stay in hospital. From an orthopedic standpoint, patient may weight-bear as tolerated with walker and assistance. Patient is stable from an orthopedic standpoint for discharge. Patient may follow-up in the outpatient setting for hip for further evaluation. At this time orthopedics is signing off. Please do not hesitate to contact us for any further questions. 2. Appreciate medical management 3. Pain management - Garfield; Tylenol 4. DVT prophylaxis - heparin; aspirin 5. GI prophylaxis - Mag-Ox; Protonix 6. PT/OT - weightbearing as tolerated with walker and assistance 7. Encourage incentive spirometer use 8. Appreciate consult Time with Patient: Less than 30
--- NOTE | 2023-06-06 14:19 | P.PN ---
Subjective Progress Note Date: 06/06/23 patient is a 63-year-old lady with past medical history significant for coronary disease, insulin-dependent diabetes mellitus, hypothyroidism presents to ER because of shortness of breath and hip pain. Patient stated that she was all right one day back when she started noticing increasing shortness of breath on exertion. Denies any chest pain. Patient also complaining of orthopnea but no PND. There was no complain of swelling of feet. Patient also complaining of cough. Denies any fever or chills. Patient wass complaining of runny nose. Patient also complaining of right hip pain. States it was hard to stand up and ambulate. Denies any trauma. Because of the symptoms, patient was brought to the ER Initial lab work done in the ER showed WBC 8, hemoglobin 10.2, platelet count 250, sodium 150, potassium 5.5 a 9 17, BUN 27, creatinine 1.12, glucose 1413, troponin 0.194, proBNP 9180 Influenza A not detected Influenza B not detected RSV not detected COVID-19 not detected EKG done in the ER showed heart rate of 104 , no ST segment depression seen, T- wave inversions in lead 1 and aVL Chest x-ray done in the ER showed no focal infiltrate Hip x-ray done showed no fracture seen in right hip Because of elevated blood sugar levels , patient was started on insulin drip, pa tient blood sugars improved and later was switched to subcu insulin Patient admitted to internal medicine service 06/06. Patient seen and examined. Blood sugars have been elevated in 400s, adjusted Levemir to 15 units twice a day and added meal coverage with 4 units of scheduled NovoLog with meals. Cardiology planning cardiac cath today REVIEW OF SYSTEMS: CONSTITUTIONAL: No fever, no malaise,. CARDIOVASCULAR: No chest pain, no palpitations, no syncope. PULMONARY: No shortness of breath, no cough, GASTROINTESTINAL: No diarrhea, no nausea, no vomiting, no abdominal pain. NEUROLOGICAL: No headaches, no weakness, PHYSICAL EXAMINATION: GENERAL: The patient is alert and oriented x3, not in any acute distress. Well developed, well nourished. HEENT: Pupils are round and equally reacting to light. EOMI. No scleral icterus. No conjunctival pallor. Normocephalic, atraumatic. No pharyngeal erythema. No thyromegaly. CARDIOVASCULAR: S1 and S2 present. No murmurs, rubs, or gallops. PULMONARY: Chest is clear to auscultation, no wheezing or crackles. ABDOMEN: Soft, nontender, nondistended, normoactive bowel sounds. No palpable organomegaly. MUSCULOSKELETAL: No joint swelling or deformity. EXTREMITIES: No cyanosis, clubbing, or pedal edema. NEUROLOGICAL: Gross neurological examination did not reveal any focal deficits. SKIN: No rashes. Assessment and plan Non-ST elevated DE Pseudohyponatremia Hyperglycemia hyperosmolar state DKA Hypothyroidism Depression COPD Hypertension Restless leg syndrome Gastroesophageal reflux disease Monitor vital signs Monitor CBC Monitor CMP Continue telemetry monitoring Trend troponin 2-D echo pending Continue pharmacy dose heparin Continue aspirin and Lipitor continue metoprolol and Imdur Regards to hyperlipidemia , continue Lipitor In regards to hypothyroid continue Synthyroid In regards to diabetes mellitus,Blood sugars have been elevated in 400s, adjusted Levemir to 15 units twice a day and added meal coverage with 4 units of scheduled NovoLog with meals Cardiology following, they agree with pharmacy dose heparin, planning cardiac cath today Labs and medication were reviewed.. Continue same treatment. Continue with symptomatic treatment. Resume home medication. Monitor labs and vitals. DVT and GI prophylaxis. Further recommendations as per clinical course of the pat ient Dictation was produced using [employer] dictation software. please excuse any grammatical, word or spelling errors. Objective - Vital Signs Vital signs: Vital Signs Temp 98.7 F 06/06/23 04:00 Pulse 72 06/06/23 04:00 Resp 18 06/06/23 04:00 BP 126/69 06/06/23 04:00 Pulse Ox 100 06/06/23 04:00 FiO2 Intake & Output 06/05/23 06/06/23 06/06/23 18:59 06:59 18:59 Intake Total 2253.216 Balance 2253.216 Weight 63.503 kg Intake: Intake, IV Titration 1363.216 Amount Heparin Sod,Pork in 0.45% 163.216 NaCl 25,000 unit In 0.45 % NaCl 1 250ml.bag @ 12 UNITS/KG/HR 7.62 mls/hr IV .Q24H DURGA Rx#: [id number] Sodium Chloride 0.9% 1, 1200 000 ml @ 200 mls/hr IV . Q5H DURGA Rx#:[id number] Oral 890 Other: Voiding Method Toilet # Voids 1 - Labs CBC & Chem 7: 06/06/23 03:49 06/06/23 03:49 Labs: Abnormal Lab Results - Last 24 Hours (Table) 06/05/23 06/05/23 06/05/23 Range/Units 08:50 08:50 12:33 RBC (3.80-5.40) m/uL Hgb (11.4-16.0) gm/dL Hct (34.0-46.0) % APTT (22.0-30.0) sec Sodium 134 L (137-145) mmol/L Carbon Dioxide 18 L (22-30) mmol/L BUN 24 H (7-17) mg/dL Creatinine (0.52-1.04) mg/dL Glucose 255 H (74-99) mg/dL POC Glucose (mg/dL) 281 H (70-110) mg/dL Alkaline Phosphatase 188 H (38-126) U/L Troponin I 0.229 H* (0.000-0.034) ng/mL Total Protein (6.3-8.2) g/dL Albumin (3.5-5.0) g/dL 06/05/23 06/05/23 06/05/23 Range/Units 12:36 12:36 14:51 RBC (3.80-5.40) m/uL Hgb (11.4-16.0) gm/dL Hct (34.0-46.0) % APTT 56.5 H (22.0-30.0) sec Sodium 132 L 132 L (137-145) mmol/L Carbon Dioxide 21 L (22-30) mmol/L BUN 23 H 23 H (7-17) mg/dL Creatinine 1.17 H (0.52-1.04) mg/dL Glucose 230 H 343 H (74-99) mg/dL POC Glucose (mg/dL) (70-110) mg/dL Alkaline Phosphatase (38-126) U/L Troponin I (0.000-0.034) ng/mL Total Protein (6.3-8.2) g/dL Albumin (3.5-5.0) g/dL 06/05/23 06/05/23 06/05/23 Range/Units 15:07 17:15 19:39 RBC (3.80-5.40) m/uL Hgb (11.4-16.0) gm/dL Hct (34.0-46.0) % APTT 43.5 H (22.0-30.0) sec Sodium (137-145) mmol/L Carbon Dioxide (22-30) mmol/L BUN (7-17) mg/dL Creatinine (0.52-1.04) mg/dL Glucose (74-99) mg/dL POC Glucose (mg/dL) 365 H 374 H (70-110) mg/dL Alkaline Phosphatase (38-126) U/L Troponin I (0.000-0.034) ng/mL Total Protein (6.3-8.2) g/dL Albumin (3.5-5.0) g/dL 06/05/23 06/06/23 06/06/23 Range/Units 20:39 03:49 03:49 RBC 3.20 L (3.80-5.40) m/uL Hgb 9.4 L (11.4-16.0) gm/dL Hct 29.1 L (34.0-46.0) % APTT (22.0-30.0) sec Sodium 129 L (137-145) mmol/L Carbon Dioxide (22-30) mmol/L BUN 30 H (7-17) mg/dL Creatinine 1.33 H (0.52-1.04) mg/dL Glucose 431 H (74-99) mg/dL POC Glucose (mg/dL) 457 H (70-110) mg/dL Alkaline Phosphatase 156 H (38-126) U/L Troponin I (0.000-0.034) ng/mL Total Protein 6.1 L (6.3-8.2) g/dL Albumin 3.4 L (3.5-5.0) g/dL 06/06/23 06/06/23 Range/Units 03:49 06:03 RBC (3.80-5.40) m/uL Hgb (11.4-16.0) gm/dL Hct (34.0-46.0) % APTT 46.4 H (22.0-30.0) sec Sodium (137-145) mmol/L Carbon Dioxide (22-30) mmol/L BUN (7-17) mg/dL Creatinine (0.52-1.04) mg/dL Glucose (74-99) mg/dL POC Glucose (mg/dL) 412 H (70-110) mg/dL Alkaline Phosphatase (38-126) U/L Troponin I (0.000-0.034) ng/mL Total Protein (6.3-8.2) g/dL Albumin (3.5-5.0) g/dL
[2023-06-06 17:02] LABS: Glucose,Whole Blood 247 mg/dL (70-110)
[2023-06-06] MEDS ORDERED: INSULIN ASPART (NovoLOG) 100 UNIT/ML VIAL SQ SCH (17:30)
[2023-06-06 19:56] LABS: Glucose,Whole Blood 306 mg/dL (70-110)
[2023-06-06] MEDS: ATORVASTATIN 80 MG TAB PO SCH (21:11)
[2023-06-06] MEDS: MIRTAZAPINE 15 MG TAB PO SCH (21:11)
[2023-06-06] MEDS: METOPROLOL SUCCINATE (ER) 25 MG TAB.ER.24H PO SCH (21:11)
[2023-06-06] MEDS: INSULIN DETEMIR (LEVEMIR) 100 UNIT/ML SYR SQ SCH (21:13)
[2023-06-07 06:10] LABS: Glucose,Whole Blood 462 mg/dL (70-110)
[2023-06-07] MEDS ORDERED: INSULIN ASPART (NovoLOG) 100 UNIT/ML VIAL SQ ONE (06:23)
[2023-06-07] MEDS: INSULIN DETEMIR (LEVEMIR) 100 UNIT/ML SYR SQ SCH ×2 (06:38→08:48)
[2023-06-07] MEDS: LEVOTHYROXINE 100 MCG TAB PO SCH (06:39)
[2023-06-07] MEDS: PANTOPRAZOLE 40 MG TABLET PO SCH (06:39)
[2023-06-07] MEDS: INSULIN ASPART (NovoLOG) 100 UNIT/ML VIAL SQ SCH ×3 (06:39→12:50)
[2023-06-07] MEDS: LEVOTHYROXINE 50 MCG TAB PO SCH (06:39)
[2023-06-07] MEDS ORDERED: INSULIN ASPART (NovoLOG) 100 UNIT/ML VIAL SQ SCH (07:30)
[2023-06-07] MEDS: ASPIRIN 81 MG PO SCH (08:35)
[2023-06-07] MEDS: LORATADINE 10 MG TAB PO SCH (08:35)
[2023-06-07] MEDS: FERROUS SULFATE 325 MG TAB PO SCH (08:35)
[2023-06-07] MEDS: GABAPENTIN 300 MG CAP PO SCH ×2 (08:35→15:53)
[2023-06-07] MEDS: MAGNESIUM OXIDE 400 MG TAB PO SCH (08:35)
[2023-06-07] MEDS: MULTIVITAMINS, THERA 1 EACH TAB PO SCH (08:35)
[2023-06-07] MEDS: VENLAFAXINE HCL ER 75 MG CAP PO SCH (08:35)
[2023-06-07] MEDS: ISOSORBIDE MONONITRATE ER 30 MG TAB.ER.24H PO SCH (08:35)
[2023-06-07] MEDS: CHOLECALCIFEROL 125 MCG (5000 IU) TABLET PO SCH ×2 (08:35→15:53)
[2023-06-07] MEDS: HYDROcodone/APAP 7.5-325MG 1 EACH TAB PO PRN (08:36)
[2023-06-07 11:27] LABS: Glucose,Whole Blood 73 mg/dL (70-110)
[2023-06-07 13:15] LABS: Basophils % (A) 1 %; Eosinophils # (A) 0.3 k/uL (0-0.7); Eosinophils % (A) 6 %; HCT 30.3 % (34.0-46.0); HGB 9.8 gm/dL (11.4-16.0); Hypochromasia Slight; Lymphocytes # (A) 1.5 k/uL (1.0-4.8); Lymphocytes % (A) 28 %; MCHC 32.4 g/dL (31.0-37.0); MCV 92.5 fL (80.0-100.0); Mean Platelet Volume 7.9; Monocytes # (A) 0.2 k/uL (0-1.0); Monocytes % (A) 4 %; Neutrophils # (A) 3.1 k/uL (1.3-7.7); Neutrophils % (A) 59 %; Platelet Count 235 k/uL (150-450); RBC 3.27 m/uL (3.80-5.40); RDW 14.6 % (11.5-15.5); WBC 5.3 k/uL (3.8-10.6)
[2023-06-07 13:19] VITALS: BP 145/76; PULSE 85; RESP 16; TEMP 98.6
--- NOTE | 2023-06-07 13:23 | P.DS ---
Providers Date of admission: 06/04/23 23:57 Expected date of discharge: 06/07/23 Attending physician: Danielle Hill Consults: 06/04/23 23:56 Consult Physician Routine Consulting Provider: Anthony Mcghee Consult Reason/Comments: elevated troponin Do you want consulting provider notified?: Yes 06/05/23 10:37 Consult Physician Routine Consulting Provider: Ryan Amaya Consult Reason/Comments: Right hip pain Do you want consulting provider notified?: Yes 06/07/23 10:50 Consult Physician Routine Consulting Provider: Travis Alas Consult Reason/Comments: pain Do you want consulting provider notified?: Already Contacted Primary care physician: Sahra Elder Hospital Course: Discharge diagnoses; Non-ST elevated AR Pseudohyponatremia Hyperglycemia hyperosmolar state DKA Hypothyroidism Depression COPD Hypertension Restless leg syndrome Gastroesophageal reflux disease Hospital course; patient is a 63-year-old lady with past medical history significant for coronary disease, insulin-dependent diabetes mellitus, hypothyroidism presents to ER because of shortness of breath and hip pain. Patient stated that she was all right one day back when she started noticing increasing shortness of breath on exertion. Denies any chest pain. Patient also complaining of orthopnea but no PND. There was no complain of swelling of feet. Patient also complaining of cough. Denies any fever or chills. Patient wass complaining of runny nose. Patient also complaining of right hip pain. States it was hard to stand up and ambulate. Denies any trauma. Because of the symptoms, patient was brought to the ER Initial lab work done in the ER showed WBC 8, hemoglobin 10.2, platelet count 250, sodium 150, potassium 5.5 a 9 17, BUN 27, creatinine 1.12, glucose 1413, troponin 0.194, proBNP 9180 Influenza A not detected Influenza B not detected RSV not detected COVID-19 not detected EKG done in the ER showed heart rate of 104 , no ST segment depression seen, T- wave inversions in lead 1 and aVL Chest x-ray done in the ER showed no focal infiltrate Hip x-ray done showed no fracture seen in right hip Because of elevated blood sugar levels , patient was started on insulin drip, patient blood sugars improved and later was switched to subcu insulin Patient admitted to internal medicine service 06/06. Patient seen and examined. Blood sugars have been elevated in 400s, adjusted Levemir to 15 units twice a day and added meal coverage with 4 units of scheduled NovoLog with meals. Cardiology planning cardiac cath today 06/07. Patient seen and examined. Laying comfortably in the bed. Blood sugar were elevated this morning. Cardiac cath Done Did Not Show Any Significant Coronary Disease. Cardiology recommended medical management. Patient actually is better controlled, patient switched back to insulin pump at discharge PHYSICAL EXAMINATION: GENERAL: The patient is alert and oriented x3, not in any acute distress. Well developed, well nourished. HEENT: Pupils are round and equally reacting to light. EOMI. No scleral icterus. No conjunctival pallor. Normocephalic, atraumatic. No pharyngeal erythema. No thyromegaly. CARDIOVASCULAR: S1 and S2 present. No murmurs, rubs, or gallops. PULMONARY: Chest is clear to auscultation, no wheezing or crackles. ABDOMEN: Soft, nontender, nondistended, normoactive bowel sounds. No palpable organomegaly. MUSCULOSKELETAL: No joint swelling or deformity. EXTREMITIES: No cyanosis, clubbing, or pedal edema. NEUROLOGICAL: Gross neurological examination did not reveal any focal deficits. SKIN: No rashes. Dictation was produced using [employer] dictation software. please excuse any grammatical, word or spelling errors. Patient Condition at Discharge: Good Plan - Discharge Summary Discharge Rx Participant: No New Discharge Prescriptions: Continue Venlafaxine HCl [Effexor XR] 225 mg PO DAILY Pantoprazole Sodium [Protonix] 40 mg PO BID Meclizine [Antivert] 25 mg PO TID PRN PRN Reason: DIZZINESS Magnesium Oxide [Mag-Ox] 400 mg PO DAILY Levothyroxine Sodium [Synthroid] 200 mcg PO DAILY Levothyroxine Sodium [Synthroid] 50 mcg PO DAILY Cholecalciferol [Vitamin D3 (125 Mcg = 5000 Iu)] 125 mcg PO TID Cetirizine HCl [Zyrtec] 10 mg PO DAILY Acetaminophen Tab [Tylenol] 650 mg PO Q6HR PRN tab PRN Reason: Fever And/ Or Pain Aspirin EC [Ecotrin Low Dose] 81 mg PO DAILY HYDROcodone/APAP 7.5-325MG [Mamou 7.5-325] 1 tab PO BID PRN PRN Reason: Pain Metoclopramide HCl [Reglan] 5 mg PO TID PRN #30 tablet PRN Reason: Nausea Ondansetron Odt [Zofran ODT] 4 mg PO Q8HR PRN #10 tab PRN Reason: Nausea Mirtazapine 7.5 mg PO HS Fluconazole 150 mg PO ONCE PRN PRN Reason: YEAST INFECTION Ferrous Sulfate [Iron (65 MG Elemental)] 325 mg PO DAILY Multivitamins, Thera [Multivitamin (formulary)] 1 tab PO DAILY Ipratropium-Albuterol Nebulize [Duoneb 0.5 mg-3 mg/3 ml Soln] 3 ml INHALATION RT-QID PRN PRN Reason: Shortness Of Breath Glucagon [Baqsimi] 1 spray NASAL DIRECTED PRN PRN Reason: Severe Hypoglycemia Gabapentin 300 mg PO TID Butalb/APAP/Caff 50-325-40Mg [Fioricet 50-325-40] 1 tab PO BID PRN PRN Reason: Migraine Headache rOPINIRole HCL [Requip] 0.5 mg PO BID Loperamide [Imodium] 2 mg PO TID PRN #21 capsule PRN Reason: Diarrhea Rosuvastatin Calcium [Crestor] 40 mg PO HS Isosorbide Mononitrate ER [Imdur] 30 mg PO DAILY INSULIN LISPRO (For Pump) [humaLOG (For Pump)] 0.01 units SQ-PUMP CONTINUOUS Metoprolol Succinate (ER) [Toprol XL] 25 mg PO HS Discharge Medication List Venlafaxine HCl [Effexor XR] 225 mg PO DAILY 10/21/16 [History] Pantoprazole Sodium [Protonix] 40 mg PO BID 04/06/20 [History] Meclizine [Antivert] 25 mg PO TID PRN 01/16/21 [History] Ferrous Sulfate [Iron (65 MG Elemental)] 325 mg PO DAILY 10/02/21 [History] Cetirizine HCl [Zyrtec] 10 mg PO DAILY 07/15/22 [History] Cholecalciferol [Vitamin D3 (125 Mcg = 5000 Iu)] 125 mcg PO TID 07/15/22 [H istory] Gabapentin 300 mg PO TID 07/15/22 [History] Glucagon [Baqsimi] 1 spray NASAL DIRECTED PRN 07/15/22 [History] Ipratropium-Albuterol Nebulize [Duoneb 0.5 mg-3 mg/3 ml Soln] 3 ml INHALATION RT -QID PRN 07/15/22 [History] Levothyroxine Sodium [Synthroid] 50 mcg PO DAILY 07/15/22 [History] Levothyroxine Sodium [Synthroid] 200 mcg PO DAILY 07/15/22 [History] Magnesium Oxide [Mag-Ox] 400 mg PO DAILY 07/15/22 [History] Multivitamins, Thera [Multivitamin (formulary)] 1 tab PO DAILY 07/15/22 [History] Acetaminophen Tab [Tylenol] 650 mg PO Q6HR PRN tab 09/04/22 [Rx] Aspirin EC [Ecotrin Low Dose] 81 mg PO DAILY 10/03/22 [History] Butalb/APAP/Caff 50-325-40Mg [Fioricet 50-325-40] 1 tab PO BID PRN 10/03/22 [History] rOPINIRole HCL [Requip] 0.5 mg PO BID 10/03/22 [History] Loperamide [Imodium] 2 mg PO TID PRN #21 capsule 10/07/22 [Rx] HYDROcodone/APAP 7.5-325MG [Mamou 7.5-325] 1 tab PO BID PRN 01/05/23 [History] Rosuvastatin Calcium [Crestor] 40 mg PO HS 01/05/23 [History] Metoclopramide HCl [Reglan] 5 mg PO TID PRN #30 tablet 01/07/23 [Rx] Ondansetron Odt [Zofran ODT] 4 mg PO Q8HR PRN #10 tab 01/07/23 [Rx] INSULIN LISPRO (For Pump) [humaLOG (For Pump)] 0.01 units SQ-PUMP CONTINUOUS [History] Isosorbide Mononitrate ER [Imdur] 30 mg PO DAILY 04/10/23 [History] Mirtazapine 7.5 mg PO HS 04/10/23 [History] Fluconazole 150 mg PO ONCE PRN 05/04/23 [History] Metoprolol Succinate (ER) [Toprol XL] 25 mg PO HS 05/16/23 [History] Follow up Appointment(s)/Referral(s): Sahra Elder MD [Primary Care Provider] - 1-2 days Will Alfred MD [STAFF PHYSICIAN] - As Needed Wellington Kurtz MD [STAFF PHYSICIAN] - 1 Week Discharge Disposition: HOME SELF-CARE
[2023-06-07 13:45] LABS: ALT 16 U/L (4-34); AST 34 U/L (14-36); African American GFR (CKD) 84 (>60 ml/min/1.73 sqM); Albumin 3.7 g/dL (3.5-5.0); Alkaline Phosphatase 147 U/L (38-126); Anion Gap 11 mmol/L; Blood Urea Nitrogen 26 mg/dL (7-17); Carbon Dioxide 22 mmol/L (22-30); Chloride 104 mmol/L (98-107); Glucose 60 mg/dL (74-99); Non-African American GFR(CKD) 73 (>60 ml/min/1.73 sqM); Sodium 137 mmol/L (137-145); Total Bilirubin 0.2 mg/dL (0.2-1.3); Total Protein 6.5 g/dL (6.3-8.2)
--- NOTE | 2023-06-07 15:19 | P.PN ---
Subjective Progress Note Date: 06/07/23 This is Pawan Brothers NP, I'm dictating on behalf of Dr. Alas's H&P and A&P. Patient was interviewed and examined. Patient is a pleasant 63-year-old female who presented to the hospital with hyperglycemia, and was found to have elevated troponins and a non-ST elevation DC. Patient underwent cardiac catheterization which found no disease in the left main, no disease in the RCA, 40-50% stenosis in the CX, 30-40% stenosis in the proximal LAD, and 30-40% stenosis in the mid LAD, with no stenting. Post cath the patient reports that she is doing well. The site is somewhat tender, but pulses are good and there is no signs of bleeding. Recommendations post cath were for medical management. GENERAL: Well-appearing, well-nourished and in no acute distress. NECK: Supple without JVD or thyromegaly. LUNGS: Breath sounds clear to auscultation bilaterally. Respiration equal and unlabored. No wheezes, rales or rhonchi. HEART: Regular rate and rhythm without murmurs, rubs or gallops. S1 and S2 h eard. EXTREMITIES: Normal range of motion, no edema. No clubbing or cyanosis. Peripheral pulses intact and strong. VITALS: Temp 98.0, pulse 84, respirations 17, blood pressure 165/82, O2 saturation 94% on room air TELEMETRY: Normal sinus rhythm LABS: White count 5.3, hemoglobin 9.8, platelets 235, sodium 137, potassium 5.0, BUN 26, creatinine 0.86, calcium 9.0 IMPRESSION: 1. Hyperglycemia with mild ketoacidosis, resolved 2. Hypertension 3. Hyperlipidemia 4. CAD with prior LAD stenting 5. Non-ST elevation DC, post catheterization PLAN: Patient may be discharged from a cardiology standpoint. Continue atorvastatin 80 mg at bedtime, Imdur 30 mg daily, metoprolol 25 mg at bedtime. Goal be to maximize medical therapy, to prevent further stenosis of the affected arteries. Patient should follow-up with cardiology at the recommended interval. Thank you for allowing us to participate in the care of this patient. Objective - Vital Signs Vital signs: Vital Signs Temp 98.0 F 06/07/23 08:00 Pulse 84 06/07/23 08:00 Resp 17 06/07/23 08:00 BP 165/82 06/07/23 08:00 Pulse Ox 94 L 06/07/23 08:00 FiO2 Intake & Output 06/06/23 06/07/23 06/07/23 18:59 06:59 18:59 Intake Total 700 118 Output Total 100 2 Balance 600 -2 118 Intake: IV 100 Oral 600 118 Output: Urine 100 2 Other: Voiding Method Toilet Toilet - Labs CBC & Chem 7: 06/07/23 12:26 06/07/23 12:26 Labs: Abnormal Lab Results - Last 24 Hours (Table) 06/06/23 06/06/23 06/06/23 Range/Units 03:49 11:02 12:50 POC Glucose (mg/dL) 116 H 141 H (70-110) mg/dL Hemoglobin A1c 10.2 H (<=6.0) % 06/06/23 06/06/23 06/07/23 Range/Units 16:57 19:54 06:08 POC Glucose (mg/dL) 247 H 306 H 462 H (70-110) mg/dL Hemoglobin A1c (<=6.0) %
[2023-06-07] MEDS ORDERED: INSULIN DETEMIR (LEVEMIR) 100 UNIT/ML SYR SQ SCH (21:00)
== END 2023-06-07 16:31 | disposition home or self-care (01) | DRG 190 ==
LOC: EC 20:11 → 3SCARD 23:57
PROVIDERS: ADMIT Hospitalist; ATTEND Hospitalist
PROC: B2111ZZ Fluoroscopy of Multiple Coronary Arteries using Low Osmolar Contrast (ICD-10-PCS; principal; 2023-06-06 07:30)
PROC: 4A023N7 Measurement of Cardiac Sampling and Pressure, Left Heart, Percutaneous Approach (ICD-10-PCS; principal; 2023-06-06 07:30)
DX: I21.4 Non-ST elevation (NSTEMI) myocardial infarction (principal); Z87.891 Personal history of nicotine dependence; E78.5 Hyperlipidemia, unspecified; E89.0 Postprocedural hypothyroidism; F32.A Depression, unspecified; G25.81 Restless legs syndrome; E11.42 Type 2 diabetes mellitus with diabetic polyneuropathy; E11.65 Type 2 diabetes mellitus with hyperglycemia; Z79.4 Long term (current) use of insulin; Z96.41 Presence of insulin pump (external) (internal); E87.1 Hypo-osmolality and hyponatremia; E11.10 Type 2 diabetes mellitus with ketoacidosis without coma; Z11.52 Encounter for screening for COVID-19; Z28.310 Unvaccinated for COVID-19; I25.10 Atherosclerotic heart disease of native coronary artery without angina pectoris; Z90.5 Acquired absence of kidney; Z85.528 Personal history of other malignant neoplasm of kidney; I25.2 Old myocardial infarction; G89.29 Other chronic pain; M54.9 Dorsalgia, unspecified; I11.0 Hypertensive heart disease with heart failure; I50.9 Heart failure, unspecified; E11.00 Type 2 diabetes mellitus with hyperosmolarity without nonketotic hyperglycemic-hyperosmolar coma (NKHHC); K21.9 Gastro-esophageal reflux disease without esophagitis; M25.551 Pain in right hip; H40.9 Unspecified glaucoma; Z87.440 Personal history of urinary (tract) infections; Z86.718 Personal history of other venous thrombosis and embolism; Z83.2 Family history of diseases of the blood and blood-forming organs and certain disorders involving the immune mechanism; Z82.49 Family history of ischemic heart disease and other diseases of the circulatory system; Z83.3 Family history of diabetes mellitus; Z86.14 Personal history of Methicillin resistant Staphylococcus aureus infection; Z90.49 Acquired absence of other specified parts of digestive tract; Z95.5 Presence of coronary angioplasty implant and graft; Z79.890 Hormone replacement therapy; Z79.899 Other long term (current) drug therapy; Z63.4 Disappearance and death of family member; Z79.82 Long term (current) use of aspirin; Z86.73 Personal history of transient ischemic attack (TIA), and cerebral infarction without residual deficits
CPT/HCPCS: 36415; 71046; 73502; 76937; 80048; 80053; 82009; 83036; 83880; 83930; 84484; 85025; 85379; 85610; 85730; 87636; 93005; 93306; 93458; 96365; 96366; 96375; 96376; 99291

== ENCOUNTER 2023-06-10 14:42 | Emergency (ER) | payer OTHER ==
--- NOTE | 2023-06-10 15:15 | ED ---
Extremity Problem HPI - General Source: patient, RN notes reviewed Mode of arrival: wheelchair Limitations: no limitations <Guera Clark - Last Filed: 06/10/23 15:14> <Yanci Lion - Last Filed: 06/12/23 07:02> - General Chief complaint: Extremity Problem,Nontraumatic Stated complaint: right leg numb-post heart Cath surgery Time Seen by Provider: 06/10/23 15:14 - History of Present Illness Initial comments: Patient is a 63-year-old female presented ER with chief complaint of right leg numbness. Patient recently had a heart catheterization with ENT right leg. Patient denies any chest pain or shortness of breath. Patient states she did have a fever of 101 last night. Patient also states she has an infection on her lower right abdomen. (Guera Clark) Lala [id number] female presents the ER today for evaluation of worsening pain and numbness in her right leg. Patient has a history of diabetes with diabetic neuropathy she was recently admitted with hyperglycemia and instantly she underwent a catheterization with access in the right groin. Patient was subsequently discharged home and she reports she just feels like her leg hurts more than usual and that her foot feels heavier than usual. Patient also notes that she has a small abscess in the right lower abdomen where her continuous monitor was previously located it's been getting worse over the past 2-3 days. It began draining at this time. (Yanci Lion) - Related Data Home Medications Medication Instructions Recorded Confirmed Venlafaxine HCl [Effexor XR] 225 mg PO DAILY 10/21/16 06/05/23 Pantoprazole Sodium [Protonix] 40 mg PO BID 04/06/20 06/05/23 Meclizine [Antivert] 25 mg PO TID PRN 01/16/21 06/05/23 Ferrous Sulfate [Iron (65 MG 325 mg PO DAILY 10/02/21 06/05/23 Elemental)] Cetirizine HCl [Zyrtec] 10 mg PO DAILY 07/15/22 06/05/23 Cholecalciferol [Vitamin D3 (125 125 mcg PO TID 07/15/22 06/05/23 Mcg = 5000 Iu)] Gabapentin 300 mg PO TID 07/15/22 06/05/23 Glucagon [Baqsimi] 1 spray NASAL DIRECTED PRN 07/15/22 06/05/23 Ipratropium-Albuterol Nebulize 3 ml INHALATION RT-QID PRN 07/15/22 06/05/23 [Duoneb 0.5 mg-3 mg/3 ml Soln] Levothyroxine Sodium [Synthroid] 50 mcg PO DAILY 07/15/22 06/05/23 Levothyroxine Sodium [Synthroid] 200 mcg PO DAILY 07/15/22 06/05/23 Magnesium Oxide [Mag-Ox] 400 mg PO DAILY 07/15/22 06/05/23 Multivitamins, Thera [Multivitamin 1 tab PO DAILY 07/15/22 06/05/23 (formulary)] Aspirin EC [Ecotrin Low Dose] 81 mg PO DAILY 10/03/22 06/05/23 Butalb/APAP/Caff 50-325-40Mg 1 tab PO BID PRN 10/03/22 06/05/23 [Fioricet 50-325-40] rOPINIRole HCL [Requip] 0.5 mg PO BID 10/03/22 06/05/23 HYDROcodone/APAP 7.5-325MG [[place] 1 tab PO BID PRN 01/05/23 06/05/23 7.5-325] Rosuvastatin Calcium [Crestor] 40 mg PO HS 01/05/23 06/05/23 INSULIN LISPRO (For Pump) [humaLOG 0.01 units SQ-PUMP CONTINUOUS 04/10/23 06/05/23 (For Pump)] Isosorbide Mononitrate ER [Imdur] 30 mg PO DAILY 04/10/23 06/05/23 Mirtazapine 7.5 mg PO HS 04/10/23 06/05/23 Fluconazole 150 mg PO ONCE PRN 05/04/23 06/05/23 Metoprolol Succinate (ER) [Toprol 25 mg PO HS 05/16/23 06/05/23 XL] Previous Rx's Medication Instructions Recorded Acetaminophen Tab [Tylenol] 650 mg PO Q6HR PRN tab 09/04/22 Loperamide [Imodium] 2 mg PO TID PRN #21 capsule 10/07/22 Metoclopramide HCl [Reglan] 5 mg PO TID PRN #30 tablet 07/25/23 Ondansetron Odt [Zofran ODT] 4 mg PO Q8HR PRN #10 tab 01/07/23 Allergies Allergy/AdvReac Type Severity Reaction Status Date / Time grass pollen Allergy Unknown Verified 06/10/23 15:10 latex Allergy Rash/Hives Verified 06/10/23 15:10 Sulfa (Sulfonamide Allergy Rash/Hives/ Verified 06/10/23 15:10 Antibiotics) Swelling venom-honey bee Allergy Anaphylaxis Verified 06/10/23 15:10 prochlorperazine edisylate AdvReac Vomiting Verified 06/10/23 15:10 [From Compazine] Review of Systems ROS Other: All systems not noted in ROS Statement are negative. <Guera Clark - Last Filed: 06/10/23 15:14> ROS Other: All systems not noted in ROS Statement are negative. <Yanci Lion - Last Filed: 06/12/23 07:02> ROS Statement: Those systems with pertinent positive or pertinent negative responses have been documented in the HPI. Past Medical History Past Medical History: Coronary Artery Disease (CAD), Cancer, COPD, CVA/TIA, Diabetes Mellitus, Deep Vein Thrombosis (DVT), Eye Disorder, GERD/Reflux, Hyperlipidemia, Hypertension, Myocardial Infarction ([place]), Renal Disease, Rheumatoid Arthritis (RA), Syncope, Thyroid Disorder Additional Past Medical History / Comment(s): 09/16/16 with SBO with surgery/possible septic emboli with cavitary lesions bilateral lungs. Hx: left renal cell carcinoma with partial nephrectomy. 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 DVT left leg 7-8 yrs ago. hypothyroidism, chronic back pain, degenerative disks, hx UTI with sepsis secondary to ESBL producing E. coli 2015 requiring PICC line insertion for IV antibiotics. restless leg syndrome, peripheral neuropathy. Hx bilateral glaucoma, hx syncope r/t low blood sugars. No CPAP use. Last Myocardial Infarction Date:: 2019 History of Any Multi-Drug Resistant Organisms: ESBL, MRSA, VRE Date of last positivie culture/infection: 05/07/16 ESBL, 05/15/16 VRE, MRSA 09/2017 - upper lip MDRO Source:: URINE E.COLI, EC GALLINARUM Past Surgical History: Appendectomy, Bowel Resection, Section, Heart Catheterization, Heart Catheterization With Stent, Hernia Repair Additional Past Surgical History / Comment(s): 09/30 exploratory laparotomy with lysis of adhesions, bowel resection d/t obstruction. repair incarcerated incisio nal hernia with abdominal washout. thyroidectomy(non functioning). heart cath 06/28 - 100% occluded, unable to stent. partial left nephrectomy for left kidney renal cell carcinoma. colonoscopy, bilateral cataract removal with lens implants, 2 Sections. cardiac stent 03/2021 Past Anesthesia/Blood Transfusion Reactions: No Reported Reaction Date of Last Stent Placement:: 04/06/2021 Past Psychological History: Depression Smoking Status: Former smoker - Past Family History Sister(s) Family Medical History: Cancer, Deep Vein Thrombosis (DVT) Additional Family Medical History / Comment(s): Patient has one sister that from liver cancer. Brother(s) Family Medical History: Cancer, Deep Vein Thrombosis (DVT) Additional Family Medical History / Comment(s): Patient has 1 brother with past ETOH, past drug abuse, DVTs. She has a second brother that has from throat cancer. Daughter(s) Family Medical History: Diabetes Mellitus, Myocardial Infarction ([place]) Additional Family Medical History / Comment(s): Daughter at 23 yrs old from massive [place]. Father Family Medical History: Myocardial Infarction ([place]) Additional Family Medical History / Comment(s): from [place] at age 44 Mother Family Medical History: Cancer Additional Family Medical History / Comment(s): B/L breast cancer <Guera Clark - Last Filed: 06/10/23 15:14> General Exam Limitations: no limitations <Guera Clark - Last Filed: 06/10/23 15:14> General appearance: alert, other Head exam: Present: atraumatic (Chronically ill-appearing), normocephalic Eye exam: Present: PERRL ENT exam: Present: mucous membranes moist Respiratory exam: Absent: respiratory distress Cardiovascular Exam: Present: regular rate, normal rhythm GI/Abdominal exam: Present: soft, other (There is a open draining abscess where her previous glucometer was located. Approximately 10 mL of purulent material was drained the pocket was probed and irrigated with sterile water with iodine.). Absent: distended Rectal exam: Present: deferred Extremities exam: Present: full ROM, tenderness, normal capillary refill Neurological exam: Present: alert, oriented X3, other (Decreased sensation in the lateral lower extremities) Skin exam: Present: warm, dry, other (Abscess on abdomen as noted above) <Yanci Lion P - Last Filed: 06/12/23 07:02> - General Exam Comments Initial Comments: Visual Physical Exam Vital signs reviewed General: Well-appearing, nontoxic, no acute distress. Head: Normocephalic, atraumatic Eyes: PERRLA, EOMI ENT: Airway patent Chest: Nonlabored breathing Skin: No visual rash, normal skin tone Neuro: Alert and oriented 3 Musculoskeletal: No gross abnormalities (Guera Clark) Course Vital Signs 06/10/23 06/11/23 06/11/23 15:07 00:31 01:40 Temperature 97.8 F Pulse Rate 138 H 95 98 Respiratory 18 16 16 Rate Blood Pressure 138/86 132/77 154/78 O2 Sat by Pulse 97 97 99 Oximetry 06/11/23 06/11/23 06/11/23 02:12 03:17 04:30 Temperature Pulse Rate 98 100 83 Respiratory 16 16 16 Rate Blood Pressure 154/78 153/77 158/87 O2 Sat by Pulse 97 100 99 Oximetry 06/11/23 05:31 Temperature 98.7 F Pulse Rate 92 Respiratory 16 Rate Blood Pressure 140/77 O2 Sat by Pulse 98 Oximetry Medical Decision Making <Guera Clark - Last Filed: 06/10/23 15:14> - Lab Data Result diagrams: 06/10/23 15:58 06/10/23 15:58 <Yanci Lion P - Last Filed: 06/12/23 07:02> - Medical Decision Making I performed the quick note portion of the exam. Electronically signed by Guera Clark PA-C (Guera Clark) Was pt. sent in by a medical professional or institution (GISELL Collins, PRODUCT DEVELOPMENT TECHNICIAN, urgent care, hospital, or longterm...) When possible be specific @ -No Did you speak to anyone other than the patient for history (EMS, parent, family, police, friend...)? What history was obtained from this source @ -No Did you review nursing and triage notes (agree or disagree)? Why? @ -I reviewed and agree with nursing and triage notes Were old charts reviewed (outside hosp., previous admission, EMS record, old EKG, old radiological studies, urgent care reports/EKG's, longterm records)? Report findings @ -Cath report reviewed Differential Diagnosis (chest pain, altered mental status, abdominal pain women, abdominal pain men, vaginal bleeding, weakness, fever, dyspnea, syncope, headache, dizziness, GI bleed, back pain, seizure, CVA, palpatations, mental health)? @ -Differential includes pseudoaneurysm, nerve injury, diabetic neuropathy EKG interpreted by me (3pts min.). @ -As above X-rays interpreted by me (1pt min.). @ -None done CT interpreted by me (1pt min.). @ -None done U/S interpreted by me (1pt. min.). @ -Ultrasound results were reviewed by me and see no obvious signs of pseudoaneurysm What testing was considered but not performed or refused? (CT, X-rays, U/S, labs)? Why? @ -None What meds were considered but not given or refused? Why? @ -None Did you discuss the management of the patient with other professionals (professionals i.e. , PA, PRODUCT DEVELOPMENT TECHNICIAN, lab, RT, psych nurse, school social worker, presales engineer, teacher, commanding officer garage, special education case manager)? Give summary @ -No Was smoking cessation discussed for >3mins.? @ -No Was critical care preformed (if so, how long)? @ -No Were there social determinants of health that impacted care today? How? (Homelessness, low income, unemployed, alcoholism, drug addiction, transportation, low edu. Level, literacy, decrease access to med. care, longterm, rehab)? @ -No Was there de-escalation of care discussed even if they declined (Discuss DNR or withdrawal of care, Hospice)? DNR status @ -No What co-morbidities impacted this encounter? (DM, HTN, Smoking, COPD, CAD, Cancer, CVA, ARF, Chemo, Hep., AIDS, mental health diagnosis, sleep apnea, morbid obesity)? @ -Diabetes CAD Was patient admitted / discharged? Hospital course, mention meds given and route, prescriptions, significant lab abnormalities, going to OR and other pertinent info. @ Discharge Patient was seen and evaluated the open draining abscess on her abdomen was further drained with direct pressure and irrigated with iodine and sterile water solution. There is no further purulent drainage. This was stressed. Ultrasound of the right groin was performedno pseudoaneurysms noted. I discussed with the patient that the numbness and tingling in her legs is likely related to diabetic neuropathy probably acutely worsen due to recent admission with significant hyperglycemia. He recommended continued tight glucose control and outpatient follow-up with primary care. Patient is agreeable with this plan and was discharged home in guarded condition due to her chronic medical conditions. Undiagnosed new problem with uncertain prognosis? @ -No Drug Therapy requiring intensive monitoring for toxicity (Heparin, Nitro, Insulin, Cardizem)? @ -No Were any procedures done? @ -No Diagnosis/symptom? @ -Abdominal wall abscess Acute, or Chronic, or Acute on Chronic? @ -Acute Uncomplicated (without systemic symptoms) or Complicated (systemic symptoms)? @ -default Side effects of treatment? @ -No Exacerbation, Progression, or Severe Exacerbation? @ -No Poses a threat to life or bodily function? How? (Chest pain, [place], [place], pneumonia, PE, COPD, DKA, ARF, appy, cholecystitis, CVA, Diverticulitis, Homicidal, Suicidal, threat to staff... and all critical care pts) @ -Unlikely Diagnosis/symptom? @ -Lower Extremity pain Acute, or Chronic, or Acute on Chronic? @ -Acute Uncomplicated (without systemic symptoms) or Complicated (systemic symptoms)? @ -default Side effects of treatment? @ -none Exacerbation, Progression, or Severe Exacerbation] @ -no Poses a threat to life or bodily function? @ -Leo (Yanci Lion) - Lab Data Lab Results 06/10/23 06/10/23 06/10/23 Range/Units 15:58 15:58 15:58 WBC 7.3 (3.8-10.6) k/uL RBC 3.79 L (3.80-5.40) m/uL Hgb 11.4 (11.4-16.0) gm/dL Hct 34.9 (34.0-46.0) % MCV 92.1 (80.0-100.0) fL MCH 30.0 (25.0-35.0) pg MCHC 32.6 (31.0-37.0) g/dL RDW 14.6 (11.5-15.5) % Plt Count 273 (150-450) k/uL MPV 7.9 Hypochromasia Slight Sodium 140 (137-145) mmol/L Potassium 5.1 (3.5-5.1) mmol/L Chloride 104 (98-107) mmol/L Carbon Dioxide 22 (22-30) mmol/L Anion Gap 14 mmol/L BUN 21 H (7-17) mg/dL Creatinine 0.84 (0.52-1.04) mg/dL Est GFR (CKD-EPI)AfAm 86 (>60 ml/min/1.73 sqM) Est GFR (CKD-EPI)NonAf 74 (>60 ml/min/1.73 sqM) Glucose 257 H (74-99) mg/dL POC Glucose (mg/dL) (70-110) mg/dL POC Glu Inpatient Services Rn ID Plasma Lactic Acid Ab 1.7 (0.7-2.0) mmol/L Calcium 9.4 (8.4-10.2) mg/dL Total Bilirubin 0.4 (0.2-1.3) mg/dL AST 22 (14-36) U/L ALT 16 (4-34) U/L Alkaline Phosphatase 192 H (38-126) U/L Total Protein 7.2 (6.3-8.2) g/dL Albumin 4.1 (3.5-5.0) g/dL 06/11/23 06/11/23 06/11/23 Range/Units 01:32 01:34 05:10 WBC (3.8-10.6) k/uL RBC (3.80-5.40) m/uL Hgb (11.4-16.0) gm/dL Hct (34.0-46.0) % MCV (80.0-100.0) fL MCH (25.0-35.0) pg MCHC (31.0-37.0) g/dL RDW (11.5-15.5) % Plt Count (150-450) k/uL MPV Hypochromasia Sodium (137-145) mmol/L Potassium (3.5-5.1) mmol/L Chloride (98-107) mmol/L Carbon Dioxide (22-30) mmol/L Anion Gap mmol/L BUN (7-17) mg/dL Creatinine (0.52-1.04) mg/dL Est GFR (CKD-EPI)AfAm (>60 ml/min/1.73 sqM) Est GFR (CKD-EPI)NonAf (>60 ml/min/1.73 sqM) Glucose (74-99) mg/dL POC Glucose (mg/dL) 598 H 535 H 358 H (70-110) mg/dL POC Glu Inpatient Services Rn CAMILLE Faria, Ashwinitherese Faria, Ashwini Kimble, Samir Plasma Lactic Acid Ab (0.7-2.0) mmol/L Calcium (8.4-10.2) mg/dL Total Bilirubin (0.2-1.3) mg/dL AST (14-36) U/L ALT (4-34) U/L Alkaline Phosphatase (38-126) U/L Total Protein (6.3-8.2) g/dL Albumin (3.5-5.0) g/dL Disposition <Guera Clark - Last Filed: 06/10/23 15:14> Is patient prescribed a controlled substance at d/c from ED?: No <Yanci Lion - Last Filed: 06/12/23 07:02> Clinical Impression: Diabetic neuropathy, Abdominal wall abscess Disposition: HOME SELF-CARE Condition: Stable Instructions (If sedation given, give patient instructions): Abscess Incision and Drainage (ED) Additional Instructions: Follow up with your regular physician regarding the neuropathy in your foot Referrals: Sahra Elder MD [Primary Care Provider] - 1-2 days
[2023-06-10 16:21] LABS: HCT 34.9 % (34.0-46.0); HGB 11.4 gm/dL (11.4-16.0); Hypochromasia Slight; MCHC 32.6 g/dL (31.0-37.0); MCV 92.1 fL (80.0-100.0); Mean Platelet Volume 7.9; Platelet Count 273 k/uL (150-450); RBC 3.79 m/uL (3.80-5.40); RDW 14.6 % (11.5-15.5); WBC 7.3 k/uL (3.8-10.6)
[2023-06-10 16:37] LABS: ALT 16 U/L (4-34); AST 22 U/L (14-36); African American GFR (CKD) 86 (>60 ml/min/1.73 sqM); Albumin 4.1 g/dL (3.5-5.0); Alkaline Phosphatase 192 U/L (38-126); Anion Gap 14 mmol/L; Blood Urea Nitrogen 21 mg/dL (7-17); Calcium 9.4 mg/dL (8.4-10.2); Carbon Dioxide 22 mmol/L (22-30); Chloride 104 mmol/L (98-107); Glucose 257 mg/dL (74-99); Non-African American GFR(CKD) 74 (>60 ml/min/1.73 sqM); Potassium 5.1 mmol/L (3.5-5.1); Sodium 140 mmol/L (137-145); Total Bilirubin 0.4 mg/dL (0.2-1.3); Total Protein 7.2 g/dL (6.3-8.2)
[2023-06-11] MEDS ORDERED: MORPHINE SULFATE 4 MG/ML SYRINGE IVP STA (00:44)
[2023-06-11] MEDS ORDERED: INSULIN REGULAR 100 UNIT/ML VIAL (IM/SQ) SQ ONE (00:44)
[2023-06-11 00:57] VITALS: RESP 16
[2023-06-11 01:36] LABS: Glucose,Whole Blood 598 mg/dL (70-110)
[2023-06-11 01:36] LABS: Glucose,Whole Blood 535 mg/dL (70-110)
--- NOTE | 2023-06-11 04:12 | US ---
EXAM: US Duplex Right Lower Extremity Arteries CLINICAL HISTORY: ITS.REASON US Reason: RIGHT femoral cath site TECHNIQUE: Real-time duplex ultrasound scan of the right lower extremity arteries integrating B-mode two-dimensional vascular structure, Doppler spectral analysis and color flow Doppler imaging. COMPARISON: No relevant prior studies available. FINDINGS: Right common femoral artery: Atherosclerotic disease involving the right common femoral artery and proximal to mid superficial femoral artery. Soft tissues: Unremarkable. No pseudoaneurysm. Other findings: Biphasic waveforms with elevated velocities not exactly measured. The right common femoral vein is patent. The right proximal femoral vein is patent. IMPRESSION: Limited evaluation at the right groin demonstrates no hematoma or pseudoaneurysm. Incidental prominent atherosclerotic changes of the regional arterial system. No venous abnormality.
[2023-06-11 05:12] LABS: Glucose,Whole Blood 358 mg/dL (70-110)
[2023-06-11] MEDS ORDERED: ACET/COD 300 MG/30 MG STARTER PACK 6 TAB BTL PO STA (05:24)
[2023-06-11 05:34] VITALS: BP 140/77; PULSE 92; TEMP 98.7
== END 2023-06-11 05:41 | disposition home or self-care (01) ==
LOC: EC 14:42
DX: E11.40 Type 2 diabetes mellitus with diabetic neuropathy, unspecified (principal); L02.211 Cutaneous abscess of abdominal wall; I25.10 Atherosclerotic heart disease of native coronary artery without angina pectoris; J44.9 Chronic obstructive pulmonary disease, unspecified; K21.9 Gastro-esophageal reflux disease without esophagitis; E78.5 Hyperlipidemia, unspecified; I10 Essential (primary) hypertension; I25.2 Old myocardial infarction; E03.9 Hypothyroidism, unspecified; F32.A Depression, unspecified; Z87.891 Personal history of nicotine dependence; Z79.82 Long term (current) use of aspirin; Z79.890 Hormone replacement therapy; Z79.4 Long term (current) use of insulin; Z79.899 Other long term (current) drug therapy; Z88.2 Allergy status to sulfonamides; Z88.8 Allergy status to other drugs, medicaments and biological substances; Z91.030 Bee allergy status; Z91.040 Latex allergy status
CPT/HCPCS: 36415 ×2; 93005; 80053; 83605; 85027; 93975; 93926; 99284; 96374; J2270

== ENCOUNTER 2023-08-02 18:19 | Inpatient (IN) | payer OTHER ==
--- NOTE | 2023-08-02 18:32 | ED ---
Chest Pain HPI - General Chief Complaint: Chest Pain Stated Complaint: Chest Pain, Dizziness Time Seen by Provider: 08/02/23 18:20 Source: patient, EMS, RN notes reviewed Mode of arrival: EMS Limitations: no limitations - History of Present Illness Initial Comments: 63-year-old female history of CVA also history of IN with a total of 4 stents in the past who also is a smoker who apparently passed out when she was getting ready for dinner apparently her thought she possibly could be and started CPR on her for about a minute she was awake and alert when EMS arrived. She complains of shortness of breath and some chest pain now. No fevers chills sweats or other symptoms no new neurological deficits. MD Complaint: chest pain - Related Data Home Medications Medication Instructions Recorded Confirmed Venlafaxine HCl [Effexor XR] 225 mg PO DAILY 10/21/16 08/02/23 Pantoprazole Sodium [Protonix] 40 mg PO BID 04/06/20 08/02/23 Meclizine [Antivert] 25 mg PO TID PRN 01/16/21 08/02/23 Ferrous Sulfate [Iron (65 MG 325 mg PO DAILY 10/02/21 08/02/23 Elemental)] Cetirizine HCl [Zyrtec] 10 mg PO DAILY 07/15/22 08/02/23 Cholecalciferol [Vitamin D3 (125 125 mcg PO TID 07/15/22 08/02/23 Mcg = 5000 Iu)] Glucagon [Baqsimi] 1 spray NASAL DIRECTED PRN 07/15/22 08/02/23 Ipratropium-Albuterol Nebulize 3 ml INHALATION RT-QID PRN 07/15/22 08/02/23 [Duoneb 0.5 mg-3 mg/3 ml Soln] Levothyroxine Sodium [Synthroid] 50 mcg PO DAILY 07/15/22 08/02/23 Levothyroxine Sodium [Synthroid] 200 mcg PO DAILY 07/15/22 08/02/23 Magnesium Oxide [Mag-Ox] 400 mg PO DAILY 07/15/22 08/02/23 Multivitamins, Thera [Multivitamin 1 tab PO DAILY 07/15/22 08/02/23 (formulary)] Aspirin EC [Ecotrin Low Dose] 81 mg PO DAILY 10/03/22 08/02/23 Butalb/APAP/Caff 50-325-40Mg 1 tab PO BID PRN 10/03/22 08/02/23 [Fioricet 50-325-40] HYDROcodone/APAP 7.5-325MG [Odell 1 tab PO BID PRN 01/05/23 08/02/23 7.5-325] Rosuvastatin Calcium [Crestor] 40 mg PO HS 01/05/23 08/02/23 INSULIN LISPRO (For Pump) [humaLOG 0.01 units SQ-PUMP CONTINUOUS 04/10/23 08/02/23 (For Pump)] Isosorbide Mononitrate ER [Imdur] 30 mg PO DAILY 04/10/23 08/02/23 Mirtazapine 7.5 mg PO HS 04/10/23 08/02/23 Diclofenac Sodium [Diclofenac 1 applic TOPICAL TID 08/02/23 08/02/23 Sodium 1%] Gabapentin 600 mg PO TID 08/02/23 08/02/23 Losartan [Cozaar] 25 mg PO DAILY 08/02/23 08/02/23 Metoprolol Succinate (ER) [Toprol 50 mg PO DAILY 08/02/23 08/02/23 Xl] cilostazoL [Pletal] 100 mg PO DIRECTED 08/02/23 08/02/23 Previous Rx's Medication Instructions Recorded Acetaminophen Tab [Tylenol] 650 mg PO Q6HR PRN tab 09/04/22 Loperamide [Imodium] 2 mg PO TID PRN #21 capsule 10/07/22 Metoclopramide HCl [Reglan] 5 mg PO TID PRN #30 tablet 01/07/23 Ondansetron Odt [Zofran ODT] 4 mg PO Q8HR PRN #10 tab 01/07/23 Allergies Allergy/AdvReac Type Severity Reaction Status Date / Time grass pollen Allergy Unknown Verified 08/02/23 20:53 latex Allergy Rash/Hives Verified 08/02/23 20:53 Sulfa (Sulfonamide Allergy Rash/Hives/ Verified 08/02/23 20:53 Antibiotics) Swelling venom-honey bee Allergy Anaphylaxis Verified 08/02/23 20:53 prochlorperazine edisylate AdvReac Vomiting Verified 08/02/23 20:53 [From Compazine] Review of Systems ROS Statement: Those systems with pertinent positive or pertinent negative responses have been documented in the HPI. ROS Other: All systems not noted in ROS Statement are negative. EKG Findings - EKG Results: EKG: interpreted by ERMD (EKG interpreted by me sinus rhythm at 75 parable 142 QRS duration 88 QT/QTc 4 1/430 moderate voltage criteria for LVH nonspecific ST configuration this was compared with an EKG dated 06/04/2023 showing similar configuration) Past Medical History Past Medical History: Coronary Artery Disease (CAD), Cancer, COPD, CVA/TIA, Diabetes Mellitus, Deep Vein Thrombosis (DVT), Eye Disorder, GERD/Reflux, Hyperlipidemia, Hypertension, Myocardial Infarction (IN), Renal Disease, Rheumatoid Arthritis (RA), Syncope, Thyroid Disorder Additional Past Medical History / Comment(s): 09/16/16 with SBO with surgery/possible septic emboli with cavitary lesions bilateral lungs. Hx: left renal cell carcinoma with partial nephrectomy. 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 DVT left leg 7-8 yrs ago. hypothyroidism, chronic back pain, degenerative disks, hx UTI with sepsis secondary to ESBL producing E. coli 2015 requiring PICC line insertion for IV antibiotics. restless leg syndrome, peripheral neuropathy. Hx bilateral glaucoma, hx syncope r/t low blood sugars. No CPAP use. Last Myocardial Infarction Date:: 2019 History of Any Multi-Drug Resistant Organisms: ESBL, MRSA, VRE Date of last positivie culture/infection: 05/07/16 ESBL, 05/15/16 VRE, MRSA 09/2017 - upper lip MDRO Source:: URINE E.COLI, EC GALLINARUM Past Surgical History: Appendectomy, Bowel Resection, Section, Heart Catheterization, Heart Catheterization With Stent, Hernia Repair Additional Past Surgical History / Comment(s): 09/30 exploratory laparotomy with lysis of adhesions, bowel resection d/t obstruction. repair incarcerated incisional hernia with abdominal washout. thyroidectomy(non functioning). heart cath 06/28 - 100% occluded, unable to stent. partial left nephrectomy for left kidney renal cell carcinoma. colonoscopy, bilateral cataract removal with lens implants, 2 Sections. cardiac stent 03/2021 Past Anesthesia/Blood Transfusion Reactions: No Reported Reaction Date of Last Stent Placement:: 04/06/2021 Past Psychological History: Depression Smoking Status: Former smoker Past Alcohol Use History: None Reported Past Drug Use History: Marijuana - Past Family History Sister(s) Family Medical History: Cancer, Deep Vein Thrombosis (DVT) Additional Family Medical History / Comment(s): Patient has one sister that from liver cancer. Brother(s) Family Medical History: Cancer, Deep Vein Thrombosis (DVT) Additional Family Medical History / Comment(s): Patient has 1 brother with past ETOH, past drug abuse, DVTs. She has a second brother that has from throat cancer. Daughter(s) Family Medical History: Diabetes Mellitus, Myocardial Infarction (IN) Additional Family Medical History / Comment(s): Daughter at 23 yrs old from massive [place]. Father Family Medical History: Myocardial Infarction ([place]) Additional Family Medical History / Comment(s): from [place] at age 44 Mother Family Medical History: Cancer Additional Family Medical History / Comment(s): B/L breast cancer General Exam - General Exam Comments Initial Comments: This is a well-developed well-nourished awake alert oriented x 4 female Limitations: no limitations General appearance: alert, in no apparent distress Head exam: Present: atraumatic, normocephalic, normal inspection Eye exam: Present: normal appearance, PERRL, EOMI. Absent: scleral icterus, conjunctival injection, periorbital swelling ENT exam: Present: normal exam, mucous membranes moist Neck exam: Present: normal inspection, full ROM, other (No stridor JVD or bruits). Absent: tenderness, meningismus, lymphadenopathy Respiratory exam: Present: normal lung sounds bilaterally, chest wall tenderness (Producible tenderness along the costal sternal margins no step-off or crepitation.). Absent: respiratory distress, wheezes, rales, rhonchi, stridor Cardiovascular Exam: Present: regular rate, normal rhythm, normal heart sounds. Absent: systolic murmur, diastolic murmur, rubs, gallop, clicks GI/Abdominal exam: Present: soft, normal bowel sounds. Absent: distended, tenderness, guarding, rebound, rigid Extremities exam: Present: full ROM, normal capillary refill, other (There is an orthopedic boot on the right foot the patient did suffer a fracture about 1 month ago. No new complaints regarding this). Absent: tenderness, pedal edema, joint swelling, calf tenderness Back exam: Present: normal inspection Neurological exam: Present: alert, oriented X3, CN II-XII intact Psychiatric exam: Present: normal affect, normal mood Skin exam: Present: warm, dry, intact, normal color. Absent: rash Course Vital Signs 08/02/23 08/02/23 08/02/23 18:21 19:17 19:31 Temperature 97.6 F Pulse Rate 72 68 59 L Respiratory 18 17 17 Rate Blood Pressure 92/62 67/43 101/63 O2 Sat by Pulse 96 97 94 L Oximetry 08/02/23 08/02/23 19:45 21:53 Temperature Pulse Rate 50 L Respiratory 17 Rate Blood Pressure 104/59 100/56 O2 Sat by Pulse 93 L Oximetry Chest Pain MDM - MDM I did discuss the findings with the patient. The patient required several boluses of IV fluids as she did have hypotensive episodes with no palpitations no other complaints other than her right foot pain and her chest wall pain. I did discuss case with Dr. Sy and will discuss the case with Dr. Traylor as the patient was a CPR patient. Was pt. sent in by a medical professional or institution (, PA, UNDERWRITING DIRECTOR, urgent care, hospital, or halfway...) When possible be specific @ -No Did you speak to anyone other than the patient for history (EMS, parent, family, police, friend...)? What history was obtained from this source @ -EMS personnel upon arrival Did you review nursing and triage notes (agree or disagree)? Why? @ -I reviewed and agree with nursing and triage notes Were old charts reviewed (outside hosp., previous admission, EMS record, old EKG, old radiological studies, urgent care reports/EKG's, halfway records)? Report findings @ -May 2023 old charts were reviewed Differential Diagnosis (chest pain, altered mental status, abdominal pain women, abdominal pain men, vaginal bleeding, weakness, fever, dyspnea, syncope, headache, dizziness, GI bleed, back pain, seizure, CVA, palpatations, mental health, musculoskeletal)? @ -Syncope, chest pain hypotensive episode EKG interpreted by me (3pts min.). @ -As above EKG showed a sinus rhythm this was interpreted by me rate 75 parable 142 QRS duration 88 QT/QTc 401/430 moderate voltage criteria for LVH nonspecific ST configuration this was compared with 1 dated 06/04/2023 showing similar configuration. X-rays interpreted by me (1pt min.). @ -X-ray interpreted by me of the chest no acute process CT interpreted by me (1pt min.). @ -CT brain interpreted by me no acute process evidence of encephalomalacia in the right parietal lobe consistent with the previous exam U/S interpreted by me (1pt. min.). @ -None done What testing was considered but not performed or refused? (CT, X-rays, U/S, labs)? Why? @ -None What meds were considered but not given or refused? Why? @ -None Did you discuss the management of the patient with other professionals (professionals i.e. Dr., PA, UNDERWRITING DIRECTOR, lab, RT, psych nurse, outreach and education social worker, medical record technician, teacher, property and supply officer, case aide)? Give summary @ -Dr Sy and Dr. Traylor Was smoking cessation discussed for >3mins.? @ -No Was critical care preformed (if so, how long)? @ -37 Were there social determinants of health that impacted care today? How? (Homelessness, low income, unemployed, alcoholism, drug addiction, transportation, low edu. Level, literacy, decrease access to med. care, long term, rehab)? @ -No Was there de-escalation of care discussed even if they declined (Discuss DNR or withdrawal of care, Hospice)? DNR status @ -No What co-morbidities impacted this encounter? (DM, HTN, Smoking, COPD, CAD, Cancer, CVA, ARF, Chemo, Hep., AIDS, mental health diagnosis, sleep apnea, morbid obesity)? @ -History of CVA, history of coronary artery disease, history of renal cell carcinoma Was patient admitted / discharged? Hospital course, mention meds given and route, prescriptions, significant lab abnormalities, going to OR and other pertinent info. @ -Hospital course patient was admitted to the intensive care unit for inpatient evaluation and treatment and IV hydration Undiagnosed new problem with uncertain prognosis? @ -No Drug Therapy requiring intensive monitoring for toxicity (Heparin, Nitro, Insulin, Cardizem)? @ -No Were any procedures done? @ -No Diagnosis/symptom? @ -Acute syncopal episode, unresponsiveness, chest wall pain, CPR, hypotensive episode Acute, or Chronic, or Acute on Chronic? @ -Acute Uncomplicated (without systemic symptoms) or Complicated (systemic symptoms)? @ -Complicated Side effects of treatment? @ -No Exacerbation, Progression, or Severe Exacerbation? @ -No Poses a threat to life or bodily function? How? (Chest pain, [place], [place], pneumonia, PE, COPD, DKA, ARF, appy, cholecystitis, CVA, Diverticulitis, Homicidal, Suicid al, threat to staff... and all critical care pts) @ -Potential Critical Care Time Critical Care Time: Yes Total Critical Care Time: 37 Disposition Clinical Impression: Syncope and collapse, Cardiopulmonary resuscitation (CPR)-only resuscitation status, Hypotensive episode, Dehydration, Renal insufficiency, Chest wall pain Disposition: ADMITTED IP TO THIS [facility] Condition: Stable Referrals: Sahra Elder MD [Primary Care Provider] - 1-2 days Decision Date: 08/02/23 Decision Time: 23:00
[2023-08-02 18:35] LABS: Basophils % (A) 1 %; Eosinophils # (A) 0.3 k/uL (0-0.7); Eosinophils % (A) 4 %; HGB 11.6 gm/dL (11.4-16.0); Lymphocytes # (A) 2.5 k/uL (1.0-4.8); Lymphocytes % (A) 39 %; MCH 29.4 pg (25.0-35.0); MCHC 32.4 g/dL (31.0-37.0); MCV 90.8 fL (80.0-100.0); Monocytes # (A) 0.2 k/uL (0-1.0); Monocytes % (A) 4 %; Neutrophils # (A) 3.3 k/uL (1.3-7.7); Neutrophils % (A) 51 %; Platelet Count 253 k/uL (150-450); RBC 3.96 m/uL (3.80-5.40); RDW 15.5 % (11.5-15.5); WBC 6.5 k/uL (3.8-10.6)
[2023-08-02 18:56] LABS: ALT 15 U/L (4-34); AST 30 U/L (14-36); African American GFR (CKD) 38 (>60 ml/min/1.73 sqM); Albumin 4.3 g/dL (3.5-5.0); Alkaline Phosphatase 141 U/L (38-126); Anion Gap 11 mmol/L; Blood Urea Nitrogen 38 mg/dL (7-17); Calcium 9.1 mg/dL (8.4-10.2); Carbon Dioxide 22 mmol/L (22-30); Chloride 104 mmol/L (98-107); Glucose 149 mg/dL (74-99); Lipase 109 U/L (23-300); Magnesium 2.2 mg/dL (1.6-2.3); Non-African American GFR(CKD) 33 (>60 ml/min/1.73 sqM); Potassium 4.2 mmol/L (3.5-5.1); Sodium 137 mmol/L (137-145); Total Bilirubin 0.4 mg/dL (0.2-1.3); Total Protein 7.2 g/dL (6.3-8.2)
[2023-08-02 19:03] LABS: NT-Pro-B-Type Natriuretic Pept 874 pg/mL
[2023-08-02 19:04] LABS: INR 0.9 (<1.2); Prothrombin Time 10.3 sec (10.0-12.5)
[2023-08-02 19:06] LABS: Partial Thromboplastin Time 20.7 sec (22.0-30.0)
--- NOTE | 2023-08-02 19:19 | XR ---
EXAMINATION TYPE: XR chest 2V DATE OF EXAM: 08/02/2023 6:50 PM CLINICAL INDICATION:Female, 63 years old with history of Chest Pain; COMPARISON: Chest radiographs from 06/04/2023 TECHNIQUE: XR chest 2V Frontal and lateral views of the chest. FINDINGS: Lungs/Pleura: There is no evidence of pleural effusion, focal consolidation, or pneumothorax. Pulmonary vascularity: Unremarkable. Heart/mediastinum: Cardiomediastinal silhouette is unremarkable. Atherosclerotic calcifications are seen in the aorta. A loop recorder projects over the left thorax over the heart. Musculoskeletal: No acute osseous pathology. Other findings: None IMPRESSION: No acute cardiopulmonary disease/process.
[2023-08-02] MEDS: SODIUM CHLORIDE 0.9% 500 ML 500 ML IV STA (19:22)
[2023-08-02] MEDS: fentaNYL (PF) 50 MCG/ML 2 ML AMP IVP STA (19:23)
[2023-08-02] MEDS: SODIUM CHLORIDE 0.9% 1,000 ML IV STA ×2 (20:11→21:30)
[2023-08-02] MEDS: KETOROLAC 15 MG/ML 1 ML VIAL IVP STA (20:13)
--- NOTE | 2023-08-02 22:23 | CT ---
EXAM: CT Head Without Intravenous Contrast CLINICAL HISTORY: ITS.REASON CT Reason: Altered mental status TECHNIQUE: Axial computed tomography images of the head/brain without intravenous contrast. CTDI is 49.1 mGy and DLP is 1095.4 mGy-cm. This CT exam was performed using one or more of the following dose reduction techniques: automated exposure control, adjustment of the mA and/or kV according to patient size, and/or use of iterative reconstruction technique. COMPARISON: No relevant prior studies available. FINDINGS: No acute intracranial hemorrhage. No midline shift or mass effect. Encephalomalacia in the RIGHT parietal lobe, consistent with old infarct. Age-related cerebral volume loss. Periventricular and subcortical white matter hypoattenuation, consistent with chronic microangiopathy. The visualized orbits appear grossly unremarkable. The calvarium is intact. The visualized paranasal sinuses and mastoid air cells are grossly clear. IMPRESSION: No acute intracranial hemorrhage, midline shift, or mass effect. Encephalomalacia in the RIGHT parietal lobe, consistent with old infarct.
[2023-08-02] MEDS ORDERED: NALOXONE 0.4 MG/ML 1 ML VIAL IV PRN (23:09)
[2023-08-02] MEDS ORDERED: ACETAMINOPHEN TAB 325 MG TAB PO PRN (23:09)
[2023-08-02] MEDS ORDERED: IPRATROPIUM-ALBUTEROL 3 ML NEB INHALATION PRN (23:12)
[2023-08-02] MEDS ORDERED: MECLIZINE 25 MG TAB PO PRN (23:12)
[2023-08-02] MEDS ORDERED: BUTALB/APAP/CAFF 50-325-40MG TAB PO PRN (23:12)
[2023-08-02] MEDS ORDERED: GLUCAGON 3 MG EA NOSTRIL PRN (23:12)
[2023-08-02] MEDS ORDERED: METOCLOPRAMIDE 5 MG TAB PO PRN (23:12)
[2023-08-02] MEDS ORDERED: LOPERAMIDE 2 MG CAP PO PRN (23:12)
[2023-08-02 23:38] LABS: Glucose,Whole Blood 48 mg/dL (70-110)
[2023-08-03 00:15] LABS: Glucose,Whole Blood 76 mg/dL (70-110)
[2023-08-03 03:42] LABS: Glucose,Whole Blood 51 mg/dL (70-110)
[2023-08-03] MEDS ORDERED: DEXTROSE 50% SYRINGE 50 ML IVP PRN (03:47)
[2023-08-03 04:07] LABS: Basophils % (A) 0 %; Eosinophils # (A) 0.2 k/uL (0-0.7); Eosinophils % (A) 4 %; HCT 31.6 % (34.0-46.0); HGB 10.2 gm/dL (11.4-16.0); Lymphocytes # (A) 2.1 k/uL (1.0-4.8); Lymphocytes % (A) 47 %; MCH 30.1 pg (25.0-35.0); MCHC 32.3 g/dL (31.0-37.0); MCV 93.1 fL (80.0-100.0); Mean Platelet Volume 7.6; Monocytes # (A) 0.2 k/uL (0-1.0); Monocytes % (A) 4 %; Neutrophils # (A) 1.9 k/uL (1.3-7.7); Neutrophils % (A) 43 %; Platelet Count 202 k/uL (150-450); RBC 3.39 m/uL (3.80-5.40); RDW 15.5 % (11.5-15.5); WBC 4.5 k/uL (3.8-10.6)
[2023-08-03 04:07] LABS: Glucose,Whole Blood 54 mg/dL (70-110)
[2023-08-03] MEDS: DEXTROSE 50% SYRINGE 50 ML IVP PRN (04:11)
[2023-08-03 04:20] LABS: African American GFR (CKD) 43 (>60 ml/min/1.73 sqM); Anion Gap 5 mmol/L; Blood Urea Nitrogen 36 mg/dL (7-17); Calcium 7.9 mg/dL (8.4-10.2); Carbon Dioxide 21 mmol/L (22-30); Chloride 112 mmol/L (98-107); Non-African American GFR(CKD) 37 (>60 ml/min/1.73 sqM); Potassium 4.1 mmol/L (3.5-5.1); Sodium 138 mmol/L (137-145)
[2023-08-03 04:35] LABS: Glucose,Whole Blood 249 mg/dL (70-110)
[2023-08-03 05:01] LABS: Glucose 43 mg/dL (74-99)
[2023-08-03] MEDS: INSULIN LISPRO (For Pump) 100 UNIT/ML VIAL SQ-PUMP SCH ×2 (06:29→11:41)
[2023-08-03] MEDS: LEVOTHYROXINE 50 MCG TAB PO SCH (06:49)
[2023-08-03] MEDS: LEVOTHYROXINE 100 MCG TAB PO SCH (06:49)
[2023-08-03] MEDS: DEXTROSE 5%-0.45% NACL 1,000 ML IV SCH (09:10)
[2023-08-03 09:22] LABS: Glucose,Whole Blood 78 mg/dL (70-110)
[2023-08-03] MEDS: GABAPENTIN 300 MG CAP PO SCH (09:27)
[2023-08-03] MEDS: FERROUS SULFATE 325 MG TAB PO SCH (09:28)
[2023-08-03] MEDS: MULTIVITAMINS, THERA 1 EACH TAB PO SCH (09:28)
[2023-08-03] MEDS: PANTOPRAZOLE 40 MG TABLET PO SCH (09:28)
[2023-08-03] MEDS: MAGNESIUM OXIDE 400 MG TAB PO SCH (09:28)
[2023-08-03] MEDS: ISOSORBIDE MONONITRATE ER 30 MG TAB.ER.24H PO SCH (09:31)
[2023-08-03] MEDS: CHOLECALCIFEROL 125 MCG (5000 IU) TABLET PO SCH (09:31)
[2023-08-03] MEDS: LORATADINE 10 MG TAB PO SCH (09:31)
[2023-08-03] MEDS: cilostazoL 100 MG TAB PO SCH (09:32)
[2023-08-03] MEDS: LOSARTAN 25 MG TAB PO SCH (09:35)
[2023-08-03] MEDS: VENLAFAXINE HCL 75 MG TAB PO SCH (09:35)
[2023-08-03] MEDS: ASPIRIN 81 MG PO SCH (09:37)
[2023-08-03] MEDS: HYDROcodone/APAP 7.5-325MG 1 EACH TAB PO PRN (09:51)
[2023-08-03 09:55] LABS: Glucose,Whole Blood 130 mg/dL (70-110)
[2023-08-03] MEDS: METOPROLOL SUCCINATE (ER) 50 MG TAB.ER.24H PO SCH (10:24)
[2023-08-03] MEDS: LOSARTAN 25 MG TAB PO STA (11:27)
[2023-08-03] MEDS ORDERED: INSULIN ASPART (NovoLOG) 100 UNIT/ML VIAL SQ PRN (11:33)
[2023-08-03] MEDS ORDERED: INSULIN PUMP BASAL RATES 1 EACH MISC MISCELLANE PRN (11:33)
[2023-08-03 11:45] LABS: Glucose,Whole Blood 238 mg/dL (70-110)
--- NOTE | 2023-08-03 11:45 | P.HPIM ---
History of Present Illness H&P Date: 08/03/23 History of present illness: 63-year-old one of our office patient with history of insulin-dependent diabetes mellitus, coronary artery disease with 4 stents, severe chronic arthritis, chronic neuropathy, CVA/TIA, deep venous thrombosis, hypertension, hyper lipidemia, rheumatoid arthritis, recurrent infection with ESBL and MRSA, previous history of stent and recurrent UTI who was in the hospital last: 8 weeks ago with non-ST IN and hyponatremia with DKA was treated did well. She was not feeling well she apparently passed out when she was getting ready for dinner did not respond well started CPR on her for few minutes until EMS picked up the scene but complaining of chest pain and some shortness of breath shortly after arriving to the ER found to have severe hypoglycemia with blood sugar of 23 troponin was negative this time she had mild anemia as well with slight declining kidney function. EKG did not show any major abnormality, CT of the brain with no acute intracranial hemorrhage she had mild encephalomalacia of the right parietal lobe consistent with an old infarct. Chest x-ray showed no acute cardiopulmonary process. Not a clear whether her syncope is hypoglycemia or consistent with cardiovascular especially with her multiple admission and complaint of coronary artery multiple angioplasty and stent. Apparently patient need to be hospitalized in the ICU since she had resuscitation with CPR she will be in ICU at least overnight 20 seeing cardiology and cleared by cardiology. Her medication management for hypoglycemia will be adjusted and change to allow the blood sugar to be up make sure patient does not have any other abnormality ongoing. REVIEW OF SYSTEMS: CONSTITUTIONAL: Well-developed no acute respiratory distress. Still little bit drowsy and sluggish. EYES: No icterus sclerae, no conjunctivitis. EARS, NOSE, MOUTH, THROAT, and FACE: No sore throat, lymphadenopathy, carotid bruits or deformity. RESPIRATORY: No SOB cough or wheezes. CARDIOVASCULAR: No CP, Palpitation, PND, Orthopnea, or angina. GASTROINTESTINAL: No Abd pain, Nausea or vomiting, no Diarrhea or constipation, No GI Bleed, no distention or masses. GENITOURINARY: Negative for Hematuria or UTI, no kidney stones. Mild incontinence. INTEGUMENT/BREAST: Generalized muscle and joint pain. HEMATOLOGIC/LYMPHATIC: Negative for bleed or purpura. MUSCULOSKELTAL: Myalgia and arthralgia with lower back pain. NEURLOGICAL: Positive loss of consciousness with no seizure activity no blurred vision positive dizziness no sign of stroke or mini stroke at this point. BEHAVIORAL/PSYCH: Negative. ENDOCRINE: Negative. PHYSICAL EXAMINATION: General Appearance: Alert, cooperative, no distress, looks older than her age does not look in any respiratory distress. Neck HEENT: Supple, no lymphadenopathy, no thyroid enlargement, no carotid bruits. Lungs: Clear to auscultation without crackles or wheezes no rhonchi, no deformity. Chest Wall: Normal expansion with slight tenderness, slightly at resuscitation. And no deformity was found on exam, no costochondral pain or discomfort. Heart: Regular rate and rhythm, S1, S2 normal, no murmur, rub or gallop. Back: Symmetric, no curvature, ROM normal, no CVA tenderness. Abdomen: Soft, non-tender, bowel sounds active all four quadrants, no masses, no organomegaly. Extremities: Extremities normal, atraumatic, no cyanosis or edema. Pulses: 2+ and symmetric. Skin: Skin color, texture, tugor normal, no rashes or lesions. Neurologic: Alert oriented x3 cranial nerves II through XII intact, no motor deficit, no abnormal balance or gait. ASSESSMENT AND PLAN: Syncope with? Of cardiac arrest: No significant finding except the worried that she looks like that to him and he did resuscitation at the time. This is pretty much can be a hypoglycemic event leading to this in the first place part to exclude other possibly of cardiovascular especially with her history patient will be watched on laboratory monitor repeat troponin seeing cardiology watch at least next 24 hours in ICU. Severe hypoglycemia: Patient was started on D5.45 continue to watch Her blood sugar she had 2 reading in the 50s the following readings up to 249 continue again hydration will adjust her diabetic medication to make sure she [place] run hypoglycemic again. Multiple coronary artery disease last angiogram was in June 06, 2023 with mild LAD mild circumflex completely blockage in the RCA. The patient was decided with plan to continue medical management only. Type 2 diabetes: Close multiple episodes of hypo-/hyperglycemic episode multiple episodes of DKA in the past this time she is more hypoglycemic I have dealt with the patient multiple times not clear whether she is usually able to follow precise commands with information on how to take her insulin faithfully and accurately she is on insulin pump normally and her diet is not consistent more often can create more problems. Insulin pump is off for now we will continue patient on Accu-Chek with sliding scale continue glucagon till her blood sugar. She is to make an appointment to see endocrinology soon she may be making adjustments her sugar can be mildly elevated and still remain low. Hypothyroidism: Continue levothyroxine 250 mcg daily. Recurrent angina and chest pain continue isosorbide mononitrate 30 mg daily. Hyperlipidemia: Remain on rosuvastatin 40 mg a day with LDL has been below 70. COPD: She is on her updraft treatment does not require any oxygen she is on steroids is inhaler as well. Chronic depression: Has been on Effexor XR 225 mcg daily along with mirtazapine 7.5 mg at bedtime. Hypertension: Continue losartan 25 mg a day and metoprolol succinate 50 mg daily. Gastroparesis with recurrent episode of nausea and vomiting has been on Zofran, Protonix and Reglan. Chronic diabetic neuropathy: Has been on gabapentin 600 mg 3 times a day. Mild PAD has been on Pletal 100 mg twice a day. Chronic elevations anemia: Still on the iron supplement on regular basis with hemoglobin still running around 10. GI prophylaxis: Remain on pantoprazole. DVT prophylaxis: Knee-high ALEXANDRE hose and early mobilization. CODE STATUS: Full code. Admit patient to the inpatient service for more than 2 night stay. Past Medical History Past Medical History: Coronary Artery Disease (CAD), Cancer, COPD, CVA/TIA, Diabetes Mellitus, Deep Vein Thrombosis (DVT), Eye Disorder, GERD/Reflux, Hyperlipidemia, Hypertension, Myocardial Infarction (IN), Renal Disease, Rheumatoid Arthritis (RA), Syncope, Thyroid Disorder Additional Past Medical History / Comment(s): 09/16/16 with SBO with surgery/possible septic emboli with cavitary lesions bilateral lungs. Hx: left renal cell carcinoma with partial nephrectomy. 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 DVT left leg 7-8 yrs ago. hypothyroidism, chronic back pain, degenerative disks, hx UTI with sepsis secondary to ESBL producing E. coli 2015 requiring PICC line insertion for IV antibiotics. restless leg syndrome, peripheral neuropathy. Hx bilateral glaucoma, hx syncope r/t low blood sugars. No CPAP use. Last Myocardial Infarction Date:: 2019 History of Any Multi-Drug Resistant Organisms: ESBL, MRSA, VRE Date of last positivie culture/infection: 05/07/16 ESBL, 05/15/16 VRE, MRSA 09/2017 - upper lip MDRO Source:: URINE E.COLI, EC GALLINARUM Past Surgical History: Appendectomy, Bowel Resection, Section, Heart Catheterization, Heart Catheterization With Stent, Hernia Repair Additional Past Surgical History / Comment(s): 09/30 exploratory laparotomy with lysis of adhesions, bowel resection d/t obstruction. repair incarcerated incisional hernia with abdominal washout. thyroidectomy(non functioning). heart cath 06/28 - 100% occluded, unable to stent. partial left nephrectomy for left kidney renal cell carcinoma. colonoscopy, bilateral cataract removal with lens implants, 2 Sections. cardiac stent 03/2021 Past Anesthesia/Blood Transfusion Reactions: No Reported Reaction Date of Last Stent Placement:: 04/06/2021 Past Psychological History: Depression Additional Psychological History / Comment(s): . Smoking Status: Former smoker Past Alcohol Use History: None Reported Additional Past Alcohol Use History / Comment(s): STARTED SMOKING AT AGE 8, smoked one to 1.5 packs per day for 50 years. PT STATES SMOKES 3-4 packs PER DAY Stated stopped apr 2023 Past Drug Use History: Marijuana Additional Drug Use History / Comment(s): Uses marijuana once or twice a week . Hx of cocaine use over 20 years ago. - Past Family History Sister(s) Family Medical History: Cancer, Deep Vein Thrombosis (DVT) Additional Family Medical History / Comment(s): Patient has one sister that from liver cancer. Brother(s) Family Medical History: Cancer, Deep Vein Thrombosis (DVT) Additional Family Medical History / Comment(s): Patient has 1 brother with past ETOH, past drug abuse, DVTs. She has a second brother that has from throat cancer. Daughter(s) Family Medical History: Diabetes Mellitus, Myocardial Infarction (IN) Additional Family Medical History / Comment(s): Daughter at 23 yrs old from massive IN. Father Family Medical History: Myocardial Infarction (IN) Additional Family Medical History / Comment(s): from IN at age 44 Mother Family Medical History: Cancer Additional Family Medical History / Comment(s): B/L breast cancer Medications and Allergies Home Medications Medication Instructions Recorded Confirmed Type Venlafaxine HCl [Effexor XR] 225 mg PO DAILY 10/21/16 08/02/23 History Pantoprazole Sodium [Protonix] 40 mg PO BID 04/06/20 08/02/23 History Meclizine [Antivert] 25 mg PO TID PRN 01/16/21 08/02/23 History Ferrous Sulfate [Iron (65 MG 325 mg PO DAILY 10/02/21 08/02/23 History Elemental)] Cetirizine HCl [Zyrtec] 10 mg PO DAILY 07/15/22 08/02/23 History Cholecalciferol [Vitamin D3 (125 125 mcg PO TID 07/15/22 08/02/23 History Mcg = 5000 Iu)] Glucagon [Baqsimi] 1 spray NASAL DIRECTED PRN 07/15/22 08/02/23 History Ipratropium-Albuterol Nebulize 3 ml INHALATION RT-QID PRN 07/15/22 08/02/23 History [Duoneb 0.5 mg-3 mg/3 ml Soln] Levothyroxine Sodium [Synthroid] 50 mcg PO DAILY 07/15/22 08/02/23 History Levothyroxine Sodium [Synthroid] 200 mcg PO DAILY 07/15/22 08/02/23 History Magnesium Oxide [Mag-Ox] 400 mg PO DAILY 07/15/22 08/02/23 History Multivitamins, Thera [Multivitamin 1 tab PO DAILY 07/15/22 08/02/23 History (formulary)] Acetaminophen Tab [Tylenol] 650 mg PO Q6HR PRN tab 09/04/22 08/02/23 Rx Aspirin EC [Ecotrin Low Dose] 81 mg PO DAILY 10/03/22 08/02/23 History Butalb/APAP/Caff 50-325-40Mg 1 tab PO BID PRN 10/03/22 08/02/23 History [Fioricet 50-325-40] Loperamide [Imodium] 2 mg PO TID PRN #21 capsule 10/07/22 08/02/23 Rx HYDROcodone/APAP 7.5-325MG [[place] 1 tab PO BID PRN 01/05/23 08/02/23 History 7.5-325] Rosuvastatin Calcium [Crestor] 40 mg PO HS 01/05/23 08/02/23 History Metoclopramide HCl [Reglan] 5 mg PO TID PRN #30 tablet 01/07/23 08/02/23 Rx Ondansetron Odt [Zofran ODT] 4 mg PO Q8HR PRN #10 tab 01/07/23 08/02/23 Rx INSULIN LISPRO (For Pump) [humaLOG 0.01 units SQ-PUMP CONTINUOUS 04/10/23 08/02/23 History (For Pump)] Isosorbide Mononitrate ER [Imdur] 30 mg PO DAILY 04/10/23 08/02/23 History Mirtazapine 7.5 mg PO HS 04/10/23 08/02/23 History Diclofenac Sodium [Diclofenac 1 applic TOPICAL TID 08/02/23 08/02/23 History Sodium 1%] Gabapentin 600 mg PO TID 08/02/23 08/02/23 History Losartan [Cozaar] 25 mg PO DAILY 08/02/23 08/02/23 History Metoprolol Succinate (ER) [Toprol 50 mg PO DAILY 08/02/23 08/02/23 History Xl] cilostazoL [Pletal] 100 mg PO DIRECTED 08/02/23 08/02/23 History Allergies Allergy/AdvReac Type Severity Reaction Status Date / Time grass pollen Allergy Unknown Verified 08/02/23 20:53 latex Allergy Rash/Hives Verified 08/02/23 20:53 Sulfa (Sulfonamide Allergy Rash/Hives/ Verified 08/02/23 20:53 Antibiotics) Swelling venom-honey bee Allergy Anaphylaxis Verified 08/02/23 20:53 prochlorperazine edisylate AdvReac Vomiting Verified 08/02/23 20:53 [From Compazine] Physical Exam Vitals: Vital Signs Temp Pulse Pulse Resp BP Pulse Ox 08/03/23 06:00 52 L 14 130/66 94 L 08/03/23 05:50 54 L 15 130/66 95 08/03/23 05:40 54 L 15 130/66 94 L 08/03/23 05:30 53 L 9 L 119/62 95 08/03/23 05:20 58 L 16 119/62 95 08/03/23 05:10 55 L 17 119/62 95 08/03/23 05:00 55 L 16 108/58 96 08/03/23 04:50 58 L 16 108/58 96 08/03/23 04:40 55 L 16 108/58 96 08/03/23 04:30 58 L 19 136/76 96 08/03/23 04:20 59 L 16 136/76 95 08/03/23 04:10 55 L 14 136/76 96 08/03/23 04:00 97.9 F 58 L 58 L 11 L 116/65 97 08/03/23 03:50 57 L 25 H 116/65 97 08/03/23 03:40 57 L 16 116/65 96 08/03/23 03:30 53 L 16 101/62 95 08/03/23 03:20 57 L 15 101/62 94 L 08/03/23 03:10 56 L 16 101/62 95 08/03/23 03:00 60 25 H 112/59 96 08/03/23 02:50 52 L 13 112/59 95 08/03/23 02:40 53 L 14 112/59 95 08/03/23 02:30 54 L 19 103/54 95 08/03/23 02:20 54 L 12 103/54 95 08/03/23 02:10 53 L 19 103/54 94 L 08/03/23 02:00 55 L 16 104/73 97 08/03/23 01:50 56 L 15 104/73 94 L 08/03/23 01:40 58 L 16 100/64 93 L 08/03/23 01:30 55 L 5 L 87/49 96 08/03/23 01:20 54 L 3 L 87/49 97 08/03/23 01:10 59 L 14 92/53 96 08/03/23 01:00 56 L 4 L 95/58 95 08/03/23 00:50 54 L 8 L 95/58 96 08/03/23 00:40 56 L 10 L 90/52 97 08/03/23 00:30 54 L 6 L 126/69 98 08/03/23 00:20 52 L 15 126/69 95 08/03/23 00:10 58 L 12 126/69 95 08/03/23 00:00 98.2 F 55 L 56 L 7 L 122/74 99 08/02/23 23:50 112/66 08/02/23 23:48 97 08/02/23 23:13 62 17 105/61 98 08/02/23 21:53 50 L 17 100/56 93 L 08/02/23 19:45 104/59 08/02/23 19:31 59 L 17 101/63 94 L 08/02/23 19:17 68 17 67/43 97 08/02/23 18:21 97.6 F 72 18 92/62 96 Intake and Output 08/02/23 08/02/23 08/03/23 14:59 22:59 06:59 Intake Total 600 Balance 600 Intake: Intake, IV Titration 600 Amount Sodium Chloride 0.9% 1, 600 000 ml @ 100 mls/hr IV . Q10H STA Rx#:[id number] Other: # Voids 1 Weight 63.503 kg 63.503 kg Results CBC & Chem 7: 08/03/23 03:21 08/03/23 03:21 Labs: Abnormal Lab Results - Last 24 Hours (Table) 08/02/23 08/02/23 08/02/23 Range/Units 18:25 18:25 23:36 RBC (3.80-5.40) m/uL Hgb (11.4-16.0) gm/dL Hct (34.0-46.0) % APTT 20.7 L (22.0-30.0) sec Chloride (98-107) mmol/L Carbon Dioxide (22-30) mmol/L BUN 38 H (7-17) mg/dL Creatinine 1.64 H (0.52-1.04) mg/dL Glucose 149 H (74-99) mg/dL POC Glucose (mg/dL) 48 L (70-110) mg/dL Calcium (8.4-10.2) mg/dL Alkaline Phosphatase 141 H (38-126) U/L 08/03/23 08/03/23 08/03/23 Range/Units 03:21 03:21 03:41 RBC 3.39 L (3.80-5.40) m/uL Hgb 10.2 L (11.4-16.0) gm/dL Hct 31.6 L (34.0-46.0) % APTT (22.0-30.0) sec Chloride 112 H (98-107) mmol/L Carbon Dioxide 21 L (22-30) mmol/L BUN 36 H (7-17) mg/dL Creatinine 1.49 H (0.52-1.04) mg/dL Glucose 43 L* (74-99) mg/dL POC Glucose (mg/dL) 51 L (70-110) mg/dL Calcium 7.9 L (8.4-10.2) mg/dL Alkaline Phosphatase (38-126) U/L 08/03/23 08/03/23 Range/Units 04:06 04:33 RBC (3.80-5.40) m/uL Hgb (11.4-16.0) gm/dL Hct (34.0-46.0) % APTT (22.0-30.0) sec Chloride (98-107) mmol/L Carbon Dioxide (22-30) mmol/L BUN (7-17) mg/dL Creatinine (0.52-1.04) mg/dL Glucose (74-99) mg/dL POC Glucose (mg/dL) 54 L 249 H (70-110) mg/dL Calcium (8.4-10.2) mg/dL Alkaline Phosphatase (38-126) U/L Thrombosis Risk Factor Assmnt - Choose All That Apply Each Factor Represents 1 point: Abnormal pulmonary function (COPD), Obesity (BMI >25) Each Risk Factor Represents 2 Points: Age 61-74 years Each Risk Factor Represents 3 Points: History of DVT/PE Thrombosis Risk Factor Assessment Total Risk Factor Score: 7 Thrombosis Risk Factor Assessment Level: High Risk
--- NOTE | 2023-08-03 13:33 | P.CNPUL ---
History of Present Illness Consult date: 08/03/23 Requesting physician: Gage Sy Reason for consult: other (Syncope, ICU management) Chief complaint: Passing out episode History of present illness: This is a 63-year-old female with known history of multiple medical problems including diabetes, coronary artery disease and previous 4 stents placed, degenerative joint disease, chronic neuropathy, hypertension, deep vein thrombosis, dyslipidemia, rheumatoid arthritis, recurrent urinary tract infections, history of DKA, yesterday, before getting ready to go to dinner, patient had a passing out episode, and her performed CPR for few minutes. When EMS arrived, patient was hypoglycemic, she had a blood sugar of 23. Patient was brought into the ER, she responded well to treatment of her hypoglycemia, however because of the fact that the patient had CPR and she was complaining of some chest wall discomfort, admitted to the ICU, monitored overnight, and I plan to transfer the patient out of the ICU today. Patient is basically back to normal, relatively asymptomatic, denies presently any shortness of breath, no cough no wheezing no chest pain, no fever, no chills, no hemoptysis. And no palpitations. Patient had similar episodes in the past, and again was also related to hypoglycemia. Labs this morning showed relatively normal CBC, normal basic metabolic profile, BUN is 36 creatinine 1.49, blood sugar this morning was 43 and the patient is now on D5.45, and she is also eating, received 1 amp of D50 earlier Review of Systems REVIEW OF SYSTEMS: CONSTITUTIONAL: No fever no chills no weight loss. EYES: No blurred vision, no diplopia. ENT: No difficulty swallowing. No sore throat. CARDIAC: As noted in HPI patient had a syncopal episode. PULMONARY: No cough no wheezing no shortness of breath.. GI: Negative. No nausea no vomiting no abdominal pain no melena no hematemesis. GENITOURINARY: Negative. No dysuria frequency urgency or hematuria. MUSCULOSKELETAL: History of degenerative joint disease and rheumatoid arthritis. SKIN: Negative. No rashes NEUROPSYCH: Syncopal episode associated with hypoglycemia ENDOCRINE: As noted in HPI HEMATOLOGIC: Negative. Past Medical History Past Medical History: Coronary Artery Disease (CAD), Cancer, COPD, CVA/TIA, Diabetes Mellitus, Deep Vein Thrombosis (DVT), Eye Disorder, GERD/Reflux, Hyperlipidemia, Hypertension, Myocardial Infarction (TX), Renal Disease, Rheumatoid Arthritis (RA), Syncope, Thyroid Disorder Additional Past Medical History / Comment(s): 09/16/16 with SBO with surgery/possible septic emboli with cavitary lesions bilateral lungs. Hx: left renal cell carcinoma with partial nephrectomy. 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 DVT left leg 7-8 yrs ago. hypothyroidism, chronic back pain, degenerative disks, hx UTI with sepsis secondary to ESBL producing E. coli 2015 requiring PICC line insertion for IV antibiotics. restless leg syndrome, peripheral neuropathy. Hx bilateral glaucoma, hx syncope r/t low blood sugars. No CPAP use. Last Myocardial Infarction Date:: 2019 History of Any Multi-Drug Resistant Organisms: ESBL, MRSA, VRE Date of last positivie culture/infection: 05/07/16 ESBL, 05/15/16 VRE, MRSA 09/2017 - upper lip MDRO Source:: URINE E.COLI, EC GALLINARUM Past Surgical History: Appendectomy, Bowel Resection, Section, Heart Catheterization, Heart Catheterization With Stent, Hernia Repair Additional Past Surgical History / Comment(s): 09/30 exploratory laparotomy with lysis of adhesions, bowel resection d/t obstruction. repair incarcerated incisional hernia with abdominal washout. thyroidectomy(non functioning). heart cath 06/28 - 100% occluded, unable to stent. partial left nephrectomy for left kidney renal cell carcinoma. colonoscopy, bilateral cataract removal with lens implants, 2 Sections. cardiac stent 03/2021 Past Anesthesia/Blood Transfusion Reactions: No Reported Reaction Date of Last Stent Placement:: 04/06/2021 Past Psychological History: Depression Additional Psychological History / Comment(s): . Smoking Status: Former smoker Past Alcohol Use History: None Reported Additional Past Alcohol Use History / Comment(s): STARTED SMOKING AT AGE 8, smoked one to 1.5 packs per day for 50 years. PT STATES SMOKES 3-4 packs PER DAY Stated stopped apr 2023 Past Drug Use History: Marijuana Additional Drug Use History / Comment(s): Uses marijuana once or twice a week . Hx of cocaine use over 20 years ago. - Past Family History Sister(s) Family Medical History: Cancer, Deep Vein Thrombosis (DVT) Additional Family Medical History / Comment(s): Patient has one sister that from liver cancer. Brother(s) Family Medical History: Cancer, Deep Vein Thrombosis (DVT) Additional Family Medical History / Comment(s): Patient has 1 brother with past ETOH, past drug abuse, DVTs. She has a second brother that has from throat cancer. Daughter(s) Family Medical History: Diabetes Mellitus, Myocardial Infarction ([place]) Additional Family Medical History / Comment(s): Daughter at 23 yrs old from massive [place]. Father Family Medical History: Myocardial Infarction ([place]) Additional Family Medical History / Comment(s): from [place] at age 44 Mother Family Medical History: Cancer Additional Family Medical History / Comment(s): B/L breast cancer Medications and Allergies Home Medications Medication Instructions Recorded Confirmed Type Venlafaxine HCl [Effexor XR] 225 mg PO DAILY 10/21/16 08/02/23 History Pantoprazole Sodium [Protonix] 40 mg PO BID 04/06/20 08/02/23 History Meclizine [Antivert] 25 mg PO TID PRN 01/16/21 08/02/23 History Ferrous Sulfate [Iron (65 MG 325 mg PO DAILY 10/02/21 08/02/23 History Elemental)] Cetirizine HCl [Zyrtec] 10 mg PO DAILY 07/15/22 08/02/23 History Cholecalciferol [Vitamin D3 (125 125 mcg PO TID 07/15/22 08/02/23 History Mcg = 5000 Iu)] Glucagon [Baqsimi] 1 spray NASAL DIRECTED PRN 07/15/22 08/02/23 History Ipratropium-Albuterol Nebulize 3 ml INHALATION RT-QID PRN 07/15/22 08/02/23 His tory [Duoneb 0.5 mg-3 mg/3 ml Soln] Levothyroxine Sodium [Synthroid] 50 mcg PO DAILY 07/15/22 08/02/23 History Levothyroxine Sodium [Synthroid] 200 mcg PO DAILY 07/15/22 08/02/23 History Magnesium Oxide [Mag-Ox] 400 mg PO DAILY 07/15/22 08/02/23 History Multivitamins, Thera [Multivitamin 1 tab PO DAILY 07/15/22 08/02/23 History (formulary)] Acetaminophen Tab [Tylenol] 650 mg PO Q6HR PRN tab 09/04/22 08/02/23 Rx Aspirin EC [Ecotrin Low Dose] 81 mg PO DAILY 10/03/22 08/02/23 History Butalb/APAP/Caff 50-325-40Mg 1 tab PO BID PRN 10/03/22 08/02/23 History [Fioricet 50-325-40] Loperamide [Imodium] 2 mg PO TID PRN #21 capsule 10/07/22 08/02/23 Rx HYDROcodone/APAP 7.5-325MG [[place] 1 tab PO BID PRN 01/05/23 08/02/23 History 7.5-325] Rosuvastatin Calcium [Crestor] 40 mg PO HS 01/05/23 08/02/23 History Metoclopramide HCl [Reglan] 5 mg PO TID PRN #30 tablet 01/07/23 08/02/23 Rx Ondansetron Odt [Zofran ODT] 4 mg PO Q8HR PRN #10 tab 01/07/23 08/02/23 Rx INSULIN LISPRO (For Pump) [humaLOG 0.01 units SQ-PUMP CONTINUOUS 04/10/23 08/02/23 History (For Pump)] Isosorbide Mononitrate ER [Imdur] 30 mg PO DAILY 04/10/23 08/02/23 History Mirtazapine 7.5 mg PO HS 04/10/23 08/02/23 History Diclofenac Sodium [Diclofenac 1 applic TOPICAL TID 08/02/23 08/02/23 History Sodium 1%] Gabapentin 600 mg PO TID 08/02/23 08/02/23 History Losartan [Cozaar] 25 mg PO DAILY 08/02/23 08/02/23 History Metoprolol Succinate (ER) [Toprol 50 mg PO DAILY 08/02/23 08/02/23 History Xl] cilostazoL [Pletal] 100 mg PO DIRECTED 08/02/23 08/02/23 History Allergies Allergy/AdvReac Type Severity Reaction Status Date / Time grass pollen Allergy Unknown Verified 08/02/23 20:53 latex Allergy Rash/Hives Verified 08/02/23 20:53 Sulfa (Sulfonamide Allergy Rash/Hives/ Verified 08/02/23 20:53 Antibiotics) Swelling venom-honey bee Allergy Anaphylaxis Verified 08/02/23 20:53 prochlorperazine edisylate AdvReac Vomiting Verified 08/02/23 20:53 [From Compazine] Physical Exam Vitals: Vital Signs Temp Pulse Pulse Resp BP Pulse Ox 08/03/23 12:00 97.8 F 72 14 136/67 94 L 08/03/23 11:00 67 14 94 L 08/03/23 10:00 62 19 143/92 96 08/03/23 09:00 64 14 122/75 96 08/03/23 08:00 56 L 14 135/71 96 08/03/23 07:00 53 L 14 134/80 95 08/03/23 06:00 52 L 14 130/66 94 L 08/03/23 05:50 54 L 15 130/66 95 08/03/23 05:40 54 L 15 130/66 94 L 08/03/23 05:30 53 L 9 L 119/62 95 08/03/23 05:20 58 L 16 119/62 95 08/03/23 05:10 55 L 17 119/62 95 08/03/23 05:00 55 L 16 108/58 96 08/03/23 04:50 58 L 16 108/58 96 08/03/23 04:40 55 L 16 108/58 96 08/03/23 04:30 58 L 19 136/76 96 08/03/23 04:20 59 L 16 136/76 95 08/03/23 04:10 55 L 14 136/76 96 08/03/23 04:00 97.9 F 58 L 58 L 11 L 116/65 97 08/03/23 03:50 57 L 25 H 116/65 97 08/03/23 03:40 57 L 16 116/65 96 08/03/23 03:30 53 L 16 101/62 95 08/03/23 03:20 57 L 15 101/62 94 L 08/03/23 03:10 56 L 16 101/62 95 08/03/23 03:00 60 25 H 112/59 96 08/03/23 02:50 52 L 13 112/59 95 08/03/23 02:40 53 L 14 112/59 95 08/03/23 02:30 54 L 19 103/54 95 08/03/23 02:20 54 L 12 103/54 95 08/03/23 02:10 53 L 19 103/54 94 L 08/03/23 02:00 55 L 16 104/73 97 08/03/23 01:50 56 L 15 104/73 94 L 08/03/23 01:40 58 L 16 100/64 93 L 08/03/23 01:30 55 L 5 L 87/49 96 08/03/23 01:20 54 L 3 L 87/49 97 08/03/23 01:10 59 L 14 92/53 96 08/03/23 01:00 56 L 4 L 95/58 95 08/03/23 00:50 54 L 8 L 95/58 96 08/03/23 00:40 56 L 10 L 90/52 97 08/03/23 00:30 54 L 6 L 126/69 98 08/03/23 00:20 52 L 15 126/69 95 08/03/23 00:10 58 L 12 126/69 95 08/03/23 00:00 98.2 F 55 L 56 L 7 L 122/74 99 08/02/23 23:50 112/66 08/02/23 23:48 97 08/02/23 23:13 62 17 105/61 98 08/02/23 21:53 50 L 17 100/56 93 L 08/02/23 19:45 104/59 08/02/23 19:31 59 L 17 101/63 94 L 08/02/23 19:17 68 17 67/43 97 08/02/23 18:21 97.6 F 72 18 92/62 96 Intake and Output 08/02/23 08/03/23 08/03/23 22:59 06:59 14:59 Intake Total 700 340 Balance 700 340 Intake: Intake, IV Titration 700 340 Amount Dextrose 5%-0.45% NaCl 1, 140 000 ml @ 70 mls/hr IV . [id number] [facility] Rx#:[id number] Sodium Chloride 0.9% 1, 700 200 000 ml @ 100 mls/hr IV . Q10H [facility] Rx#:[id number] Other: # Voids 1 Weight 63.503 kg 68.6 kg General: The patient is awake and alert, in no distress, and does not appear acutely ill. Skin: Skin is warm and dry and no rashes or lesions are noted. Eye: Pupils are equal, round and reactive to light, extra-ocular movements are intact; there is normal conjunctiva bilaterally. Ears, nose, mouth and throat: There are moist mucous membranes and no oral lesions. Neck: The neck is supple, there is no tenderness or JVD. Cardiovascular: There is a regular rate and rhythm. No murmur, rub or gallop is appreciated. Respiratory: Clear throughout no crackles rhonchi or wheezes Gastrointestinal: Soft, non-distended, non-tender abdomen without masses or organomegaly noted. There is no rebound or guarding present. Bowel sounds are unremarkable. Back: There is no tenderness to palpation in the midline. There is no obvious deformity. Musculoskeletal: Normal ROM, no tenderness, There is no pedal edema. There is no calf tenderness or swelling. No cords were appreciated. Neurological: CN II-XII intact, Cranial nerves III through XII are intact. There are no obvious motor or sensory deficits. Coordination appears grossly intact. Speech is normal. Psychiatric: Cooperative, appropriate mood & affect, normal judgment. Results - Laboratory Findings CBC and BMP: 08/03/23 03:21 08/03/23 03:21 PT/INR, D-dimer PT 10.3 sec (10.0-12.5) 08/02/23 18:25 INR 0.9 (<1.2) 08/02/23 18:25 D-Dimer 0.49 mg/L FEU (<0.60) 08/02/23 18:25 Abnormal lab findings: Abnormal Labs 08/02/23 08/02/23 08/02/23 18:25 18:25 23:36 RBC Hgb Hct APTT 20.7 L Chloride Carbon Dioxide BUN 38 H Creatinine 1.64 H Glucose 149 H POC Glucose (mg/dL) 48 L Calcium Alkaline Phosphatase 141 H 08/03/23 08/03/23 08/03/23 03:21 03:21 03:41 RBC 3.39 L Hgb 10.2 L Hct 31.6 L APTT Chloride 112 H Carbon Dioxide 21 L BUN 36 H Creatinine 1.49 H Glucose 43 L* POC Glucose (mg/dL) 51 L Calcium 7.9 L Alkaline Phosphatase 08/03/23 08/03/23 08/03/23 04:06 04:33 09:54 RBC Hgb Hct APTT Chloride Carbon Dioxide BUN Creatinine Glucose POC Glucose (mg/dL) 54 L 249 H 130 H Calcium Alkaline Phosphatase 08/03/23 11:42 RBC Hgb Hct APTT Chloride Carbon Dioxide BUN Creatinine Glucose POC Glucose (mg/dL) 238 H Calcium Alkaline Phosphatase - Diagnostic Findings Chest x-ray: image reviewed (Chest x-ray showed no evidence of acute cardiopulmonary process) Additional studies: Brain CT was basically unremarkable except for an old parietal infarct Assessment and Plan Assessment: Impression: Hypoglycemic syncope Type 2 diabetes. And recurrent episodes of hypoglycemia Hypothyroidism History of underlying coronary artery disease History of underlying COPD Benign essential hypertension Chronic depression History of gastroparesis Chronic diabetic neuropathy Recommendation: Agree with the present treatment plan Close monitoring of sugars for now, Advance diet as tolerated. Continue D5 W or D5 4 5 for now Transfer patient out of ICU to a monitored bed and selective Consider discharge planning in the next 24 hours. Patient is being followed by her primary care physician. Will see the patient on as needed basis Time with Patient: Greater than 30
--- NOTE | 2023-08-03 14:13 | CONS ---
CONSULTATION CHIEF COMPLAINT: Syncope. HISTORY OF PRESENT ILLNESS: Lala is a 63-year-old lady with history of coronary artery disease, status post prior angioplasty, type 2 diabetes, hypertension, who presented to [facility] having had an episode of syncope at home. The patient underwent cardiac catheterization in May of 2023 and had moderate disease in mid LAD, circ, and was advised medical therapy. She was at home sitting down to have dinner and then had a transient loss of consciousness that lasted for a minute or 2 and her had performed CPR. When the EMS arrived on the scene, she was stable hemodynamically and really did not have any issues. Her baseline echo shows an ejection fraction of 45% to 50% with evidence of prior apical myocardial infarction. Since being admitted, she has been doing well. She has not had any documented cardiac arrhythmia, bradycardia, hypotension. The only problem we found so far is hypoglycemia and it is possible her syncope is related to it. PAST MEDICAL HISTORY: Significant for CAD, status post angioplasty, hypertension, diabetes, dyslipidemia, ischemic cardiomyopathy. CURRENT MEDICATIONS: Include; 1. Toprol-XL 50 daily. 2. Cozaar 25 daily. 3. Cilostazol. 4. Effexor. 5. Crestor. 6. Protonix. 7. Reglan. 8. Antivert. 9. Synthroid. 10.Imdur. ALLERGIES: Allergic to latex, sulfa, and Compazine. FAMILY HISTORY: Negative for premature coronary artery disease. SOCIAL HISTORY: Negative for current smoking, EtOH abuse, or drug abuse. REVIEW OF SYSTEMS: HEENT: Unremarkable. CARDIAC: As described above. RESPIRATORY: Negative. GI: Negative. GENITOURINARY: Negative. ALLERGY/IMMUNOLOGY: Negative. SKIN: Negative. MUSCULOSKELETAL: Negative. ENDOCRINE: Negative. DERM: Negative. CONSTITUTIONAL: Negative. ONCOLOGICAL: Negative. PHYSICAL EXAMINATION: GENERAL: Comfortable at rest. VITAL SIGNS: Stable. NECK: There is no jugular venous distention. Carotid upstroke is normal. There is no bruit. CHEST: Reveals good air entry bilaterally. HEART: Reveals first and second heart sounds. No gallop. No murmur. ABDOMEN: Soft, nontender. EXTREMITIES: Did not reveal any edema. Peripheral pulses are felt. ASSESSMENT: 1. Syncope probably related to hypoglycemia. 2. Coronary artery disease, status post angioplasty. 3. Ischemic cardiomyopathy. 4. Hypertension. 5. Diabetes. 6. Dyslipidemia. PLAN: We will continue her on current measures. Primary will work on her hypoglycemia. Hopefully, home tomorrow. MMYARONL / IJN: [id number] /
[2023-08-03 15:28] LABS: Glucose,Whole Blood 374 mg/dL (70-110)
[2023-08-03] MEDS: SODIUM CHLORIDE 0.9% 1,000 ML IV SCH (15:49)
[2023-08-03 19:35] LABS: Glucose,Whole Blood 263 mg/dL (70-110)
[2023-08-03] MEDS: ATORVASTATIN 80 MG TAB PO SCH (22:37)
[2023-08-03] MEDS: MIRTAZAPINE 15 MG TAB PO SCH (22:38)
[2023-08-03 23:37] LABS: Glucose,Whole Blood 95 mg/dL (70-110)
[2023-08-04 03:16] LABS: Glucose,Whole Blood 82 mg/dL (70-110)
[2023-08-04 03:54] LABS: Glucose,Whole Blood 70 mg/dL (70-110)
[2023-08-04 04:14] LABS: Glucose,Whole Blood 64 mg/dL (70-110)
[2023-08-04 04:37] LABS: Glucose,Whole Blood 166 mg/dL (70-110)
[2023-08-04 06:03] LABS: Basophils % (A) 0 %; Eosinophils # (A) 0.3 k/uL (0-0.7); Eosinophils % (A) 6 %; HCT 32.8 % (34.0-46.0); HGB 10.4 gm/dL (11.4-16.0); Hypochromasia Slight; Lymphocytes # (A) 2.6 k/uL (1.0-4.8); Lymphocytes % (A) 47 %; MCHC 31.8 g/dL (31.0-37.0); MCV 94.3 fL (80.0-100.0); Mean Platelet Volume 7.8; Monocytes # (A) 0.2 k/uL (0-1.0); Monocytes % (A) 3 %; Neutrophils # (A) 2.3 k/uL (1.3-7.7); Neutrophils % (A) 42 %; Platelet Count 183 k/uL (150-450); RBC 3.48 m/uL (3.80-5.40); RDW 15.5 % (11.5-15.5); WBC 5.5 k/uL (3.8-10.6)
[2023-08-04 06:08] LABS: Glucose,Whole Blood 207 mg/dL (70-110)
[2023-08-04 07:32] LABS: Glucose,Whole Blood 142 mg/dL (70-110)
[2023-08-04 07:45] LABS: African American GFR (CKD) 62 (>60 ml/min/1.73 sqM); Anion Gap 6 mmol/L; Blood Urea Nitrogen 29 mg/dL (7-17); Calcium 8.3 mg/dL (8.4-10.2); Carbon Dioxide 20 mmol/L (22-30); Chloride 110 mmol/L (98-107); Glucose 162 mg/dL (74-99); Non-African American GFR(CKD) 54 (>60 ml/min/1.73 sqM); Potassium 5.3 mmol/L (3.5-5.1); Sodium 136 mmol/L (137-145)
[2023-08-04 09:52] LABS: Glucose,Whole Blood 142 mg/dL (70-110)
[2023-08-04] MEDS: LOSARTAN 50 MG TAB PO SCH (09:56)
[2023-08-04] MEDS: METOPROLOL SUCCINATE (ER) 25 MG TAB.ER.24H PO SCH (09:57)
[2023-08-04 12:05] LABS: Glucose,Whole Blood 274 mg/dL (70-110)
[2023-08-04 14:36] LABS: Glucose,Whole Blood 390 mg/dL (70-110)
[2023-08-04 14:46] VITALS: BMI 26.6
[2023-08-04 15:00] LABS: Glucose,Whole Blood 430 mg/dL (70-110)
[2023-08-04] MEDS: ONDANSETRON ODT 4 MG TAB PO PRN (15:53)
[2023-08-04 17:07] LABS: Glucose,Whole Blood 274 mg/dL (70-110)
--- NOTE | 2023-08-04 18:32 | P.PN ---
Subjective Patient is resting comfortably in bed She was admitted with an episode of collapse and was found to be severely hypoglycemic This is happened to her before Heart rhythm is normal No evidence for any bradycardia or sudden pauses or AV block She is a brittle diabetic History of hypertension She has an insulin pump Left ventricular ejection fraction is mildly reduced at 45% Yesterday her dose of metoprolol was decreased to 25 mg p.o. daily She is doing well Blood pressure 133 systolic pulse rate in the 70s and 80s Heart sounds are normal breath sounds are clear impression Episode of syncope/collapse Known coronary artery status post coronary intervention Mild ischemic cardiomyopathy Hypertension Type 2 diabetes Low blood sugar noted at the time of collapse Suggest Continue monitoring for any arrhythmias LV function is mildly reduced Her troponins are completely normal Her D-dimer was normal Continue low-dose of beta-blockers Watch for dropping hemoglobin Objective - Vital Signs Vital signs: Vital Signs Temp 97.8 F 08/04/23 08:00 Pulse 77 08/04/23 18:00 Resp 14 08/04/23 17:00 BP 133/102 08/04/23 17:00 Pulse Ox 93 L 08/04/23 17:00 FiO2 Intake & Output 08/03/23 08/04/23 08/04/23 18:59 06:59 18:59 Intake Total 915 750 900 Output Total 150 850 Balance 765 750 50 Weight 70.3 kg 70.3 kg Intake: Intake, IV Titration 915 750 900 Amount Dextrose 5%-0.45% NaCl 1, 490 000 ml @ 70 mls/hr IV . [id number] [facility] Rx#:[id number] Sodium Chloride 0.9% 1, 200 000 ml @ 100 mls/hr IV . Q10H [facility] Rx#:[id number] Sodium Chloride 0.9% 1, 225 750 900 000 ml @ 75 mls/hr IV . [id number] [facility] Rx#:[id number] Output: Urine 150 850 Other: # Voids 1 1 - Labs CBC & Chem 7: 08/04/23 05:48 08/04/23 05:48 Labs: Abnormal Lab Results - Last 24 Hours (Table) 08/03/23 08/04/23 08/04/23 Range/Units 19:33 04:13 04:35 RBC (3.80-5.40) m/uL Hgb (11.4-16.0) gm/dL Hct (34.0-46.0) % Sodium (137-145) mmol/L Potassium (3.5-5.1) mmol/L Chloride (98-107) mmol/L Carbon Dioxide (22-30) mmol/L BUN (7-17) mg/dL Creatinine (0.52-1.04) mg/dL Glucose (74-99) mg/dL POC Glucose (mg/dL) 263 H 64 L 166 H (70-110) mg/dL Calcium (8.4-10.2) mg/dL 08/04/23 08/04/23 08/04/23 Range/Units 05:48 05:48 06:06 RBC 3.48 L (3.80-5.40) m/uL Hgb 10.4 L (11.4-16.0) gm/dL Hct 32.8 L (34.0-46.0) % Sodium 136 L (137-145) mmol/L Potassium 5.3 H (3.5-5.1) mmol/L Chloride 110 H (98-107) mmol/L Carbon Dioxide 20 L (22-30) mmol/L BUN 29 H (7-17) mg/dL Creatinine 1.10 H (0.52-1.04) mg/dL Glucose 162 H (74-99) mg/dL POC Glucose (mg/dL) 207 H (70-110) mg/dL Calcium 8.3 L (8.4-10.2) mg/dL 08/04/23 08/04/23 08/04/23 Range/Units 07:30 09:50 12:04 RBC (3.80-5.40) m/uL Hgb (11.4-16.0) gm/dL Hct (34.0-46.0) % Sodium (137-145) mmol/L Potassium (3.5-5.1) mmol/L Chloride (98-107) mmol/L Carbon Dioxide (22-30) mmol/L BUN (7-17) mg/dL Creatinine (0.52-1.04) mg/dL Glucose (74-99) mg/dL POC Glucose (mg/dL) 142 H 142 H 274 H (70-110) mg/dL Calcium (8.4-10.2) mg/dL 08/04/23 08/04/2308/04/24 Range/Units 14:35 14:58 17:06 RBC (3.80-5.40) m/uL Hgb (11.4-16.0) gm/dL Hct (34.0-46.0) % Sodium (137-145) mmol/L Potassium (3.5-5.1) mmol/L Chloride (98-107) mmol/L Carbon Dioxide (22-30) mmol/L BUN (7-17) mg/dL Creatinine (0.52-1.04) mg/dL Glucose (74-99) mg/dL POC Glucose (mg/dL) 390 H 430 H 274 H (70-110) mg/dL Calcium (8.4-10.2) mg/dL
[2023-08-04 20:30] LABS: Glucose,Whole Blood 295 mg/dL (70-110)
--- NOTE | 2023-08-04 21:19 | P.PN ---
Subjective Progress Note Date: 08/04/23 History of present illness: 63-year-old one of our office patient with history of insulin-dependent diabetes mellitus, coronary artery disease with 4 stents, severe chronic arthritis, chronic neuropathy, CVA/TIA, deep venous thrombosis, hypertension, hyperlipide mike, rheumatoid arthritis, recurrent infection with ESBL and MRSA, previous history of stent and recurrent UTI who was in the hospital last: 8 weeks ago with non-ST ND and hyponatremia with DKA was treated did well. She was not feeling well she apparently passed out when she was getting ready for dinner did not respond well started CPR on her for few minutes until EMS picked up the scene but complaining of chest pain and some shortness of breath shortly after arriving to the ER found to have severe hypoglycemia with blood sugar of 23 troponin was negative this time she had mild anemia as well with slight declining kidney function. EKG did not show any major abnormality, CT of the brain with no acute intracranial hemorrhage she had mild encephalomalacia of the right parietal lobe consistent with an old infarct. Chest x-ray showed no acute cardiopulmonary process. Not a clear whether her syncope is hypoglycemia or consistent with cardiovascular especially with her multiple admission and complaint of coronary artery multiple angioplasty and stent. Apparently patient need to be hospitalized in the ICU since she had resuscitation with CPR she will be in ICU at least overnight 20 seeing cardiology and cleared by cardiology. Her medication management for hypoglycemia will be adjusted and change to allow the blood sugar to be up make sure patient does not have any other abnormality ongoing. 08/04/2023: She had another episode of hypoglycemia this morning but blood sugar still running in the 60s adjustment of her insulin pump has not been easy and patient will be calling her sales correspondence clerk to see if they can walk her through adjusting her insulin pump with the infusion ratio from 0.825 probably 0.75 8 might help to keep the low number early childhood educator aide from happening.In the meanwhile and cardiology no event of cardiovascular or any major arrhythmia causing patient to pass out or have syncope, cardiology has suggested to reduce her metoprolol to 25 mg daily blood pressure remain good so far no sign of bradycardia or major arrhythmia. Also patient was seen pulmonary no reason to believe this is hypoxia related to any obstruction, COPD or infection process. She will be cleared from their standpoint as long as her blood sugar is better. REVIEW OF SYSTEMS: CONSTITUTIONAL: Well-developed no acute respiratory distress. Still little bit drowsy and sluggish. EYES: No icterus sclerae, no conjunctivitis. EARS, NOSE, MOUTH, THROAT, and FACE: No sore throat, lymphadenopathy, carotid bruits or deformity. RESPIRATORY: No SOB cough or wheezes. CARDIOVASCULAR: No CP, Palpitation, PND, Orthopnea, or angina. GASTROINTESTINAL: No Abd pain, Nausea or vomiting, no Diarrhea or constipation, No GI Bleed, no distention or masses. GENITOURINARY: Negative for Hematuria or UTI, no kidney stones. Mild inco ntinence. INTEGUMENT/BREAST: Generalized muscle and joint pain. HEMATOLOGIC/LYMPHATIC: Negative for bleed or purpura. MUSCULOSKELTAL: Myalgia and arthralgia with lower back pain. NEURLOGICAL: Positive loss of consciousness with no seizure activity no blurred vision positive dizziness no sign of stroke or mini stroke at this point. BEHAVIORAL/PSYCH: Negative. ENDOCRINE: Negative. PHYSICAL EXAMINATION: General Appearance: Alert, cooperative, no distress, looks older than her age does not look in any respiratory distress. Neck HEENT: Supple, no lymphadenopathy, no thyroid enlargement, no carotid bruits. Lungs: Clear to auscultation without crackles or wheezes no rhonchi, no deformity. Chest Wall: Normal expansion with slight tenderness, slightly at resuscitation. And no deformity was found on exam, no costochondral pain or discomfort. Heart: Regular rate and rhythm, S1, S2 normal, no murmur, rub or gallop. Back: Symmetric, no curvature, ROM normal, no CVA tenderness. Abdomen: Soft, non-tender, bowel sounds active all four quadrants, no masses, no organomegaly. Extremities: Extremities normal, atraumatic, no cyanosis or edema. Pulses: 2+ and symmetric. Skin: Skin color, texture, tugor normal, no rashes or lesions. Neurologic: Alert oriented x3 cranial nerves II through XII intact, no motor deficit, no abnormal balance or gait. ASSESSMENT AND PLAN: Syncope: The whole episode was severe hypoglycemia with no finding consistent with any cardio vascular process or problem. And she is stable at this point except the blood sugar still slightly bit low. Severe hypoglycemia: More adjustment of her insulin pump need to be made the patient probably to see her sales correspondence clerk quite soon after discharge. Multiple coronary artery disease last angiogram was in June 06, 2023 with mild LAD mild circumflex completely blockage in the RCA. The patient was decided with plan to continue medical management only. Type 2 diabetes: She is remain an insulin pump not clear whether she is able to manage it well or not at this point another option of going to switch patient to long-acting insulin and bolus around mealtime. - Hypothyroidism: Remain on levothyroxine to 50 mcg daily. Recurrent angina and chest pain continue isosorbide mononitrate 30 mg daily. Hyperlipidemia: Remain on rosuvastatin 40 mg a day with LDL has been below 70. COPD: She is on her updraft treatment does not require any oxygen she is on steroids is inhaler as well. Chronic depression: Has been on Effexor XR 225 mcg daily along with mirtazapine 7.5 mg at bedtime. Hypertension: Continue losartan 25 mg a day and metoprolol succinate 50 mg daily. Gastroparesis with recurrent episode of nausea and vomiting has been on Zofran, Protonix and Reglan. Chronic diabetic neuropathy: Has been on gabapentin 600 mg 3 times a day. Mild PAD has been on Pletal 100 mg twice a day. Chronic elevations anemia: Still on the iron supplement on regular basis with hemoglobin still running around 10. Discharge planning if patient blood sugar is better if he can have clear appointment with her sales correspondence clerk to be seen in the next 48 hours patient hopefully will be able to be discharged tomorrow morning. Objective - Vital Signs Vital signs: Vital Signs Temp 97.9 F 08/04/23 04:00 Pulse 69 08/04/23 05:00 Resp 11 L 08/04/23 05:00 BP 106/71 08/04/23 04:00 Pulse Ox 94 L 08/04/23 04:00 FiO2 Intake & Output 08/03/23 08/03/23 08/04/23 06:59 18:59 06:59 Intake Total 700 915 750 Output Total 150 Balance 700 765 750 Weight 68.6 kg 70.3 kg Intake: Intake, IV Titration 700 915 750 Amount Dextrose 5%-0.45% NaCl 1, 490 000 ml @ 70 mls/hr IV . [id number] [facility] Rx#:[id number] Sodium Chloride 0.9% 1, 700 200 000 ml @ 100 mls/hr IV . Q10H [facility] Rx#:[id number] Sodium Chloride 0.9% 1, 225 750 000 ml @ 75 mls/hr IV . [id number] [facility] Rx#:[id number] Output: Urine 150 Other: # Voids 1 1 1 - Labs CBC & Chem 7: 08/04/23 05:48 08/04/23 05:48 Labs: Abnormal Lab Results - Last 24 Hours (Table) 08/03/23 08/03/23 08/03/23 Range/Units 09:54 11:42 15:25 POC Glucose (mg/dL) 130 H 238 H 374 H (70-110) mg/dL 08/03/23 08/04/23 08/04/23 Range/Units 19:33 04:13 04:35 POC Glucose (mg/dL) 263 H 64 L 166 H (70-110) mg/dL
[2023-08-04 23:59] LABS: Glucose,Whole Blood 184 mg/dL (70-110)
[2023-08-05 03:30] LABS: Glucose,Whole Blood 107 mg/dL (70-110)
[2023-08-05 04:30] LABS: Glucose,Whole Blood 96 mg/dL (70-110)
[2023-08-05 05:26] LABS: Glucose,Whole Blood 80 mg/dL (70-110)
[2023-08-05 06:55] LABS: African American GFR (CKD) 72 (>60 ml/min/1.73 sqM); Anion Gap 2 mmol/L; Blood Urea Nitrogen 26 mg/dL (7-17); Calcium 8.3 mg/dL (8.4-10.2); Carbon Dioxide 24 mmol/L (22-30); Chloride 112 mmol/L (98-107); Glucose 68 mg/dL (74-99); Non-African American GFR(CKD) 63 (>60 ml/min/1.73 sqM); Potassium 5.2 mmol/L (3.5-5.1); Sodium 138 mmol/L (137-145)
[2023-08-05 06:58] LABS: Glucose,Whole Blood 60 mg/dL (70-110)
[2023-08-05 07:35] LABS: Glucose,Whole Blood 93 mg/dL (70-110)
[2023-08-05 10:15] LABS: Glucose,Whole Blood 176 mg/dL (70-110)
--- NOTE | 2023-08-05 11:27 | P.PN ---
Subjective Patient is resting comfortably in the chair No arrhythmias so far No syncopal spells no hypotension no bradycardia On examination blood pressure 123/58 mmHg pulse rate is in the 70s Afebrile Breath sounds are clear Heart sounds S1-S2 normal Impression Episode of altered consciousness that is being presumed to be related to hyper severe hypoglycemia Mild cardiomyopathy CAD Moderate obstructive disease in the mid LAD and left circumflex based on coronary angiography in May Suggest Continue monitoring 30-day event monitor upon discharge Objective - Vital Signs Vital signs: Vital Signs Temp 98.0 F 08/05/23 08:00 Pulse 79 08/05/23 08:00 Resp 17 08/05/23 08:00 BP 127/79 08/05/23 08:00 Pulse Ox 98 08/05/23 08:00 FiO2 Intake & Output 08/04/23 08/05/23 08/05/23 18:59 06:59 18:59 Intake Total 900 675 Output Total 850 500 Balance 50 175 Weight 70.3 kg 72.8 kg Intake: Intake, IV Titration 900 675 Amount Sodium Chloride 0.9% 1, 900 675 000 ml @ 75 mls/hr IV . [id number] [facility] Rx#:[id number] Output: Urine 850 500 Other: Voiding Method External Catheter External Catheter # Bowel Movements 0 - Labs CBC & Chem 7: 08/04/23 05:48 08/05/23 06:18 Labs: Abnormal Lab Results - Last 24 Hours (Table) 08/04/23 08/04/23 08/04/23 Range/Units 12:04 14:35 14:58 Potassium (3.5-5.1) mmol/L Chloride (98-107) mmol/L BUN (7-17) mg/dL Glucose (74-99) mg/dL POC Glucose (mg/dL) 274 H 390 H 430 H (70-110) mg/dL Calcium (8.4-10.2) mg/dL 08/04/23 08/04/23 08/04/23 Range/Units 17:06 20:29 23:58 Potassium (3.5-5.1) mmol/L Chloride (98-107) mmol/L BUN (7-17) mg/dL Glucose (74-99) mg/dL POC Glucose (mg/dL) 274 H 295 H 184 H (70-110) mg/dL Calcium (8.4-10.2) mg/dL 08/05/23 08/05/23 08/05/23 Range/Units 06:18 06:56 10:12 Potassium 5.2 H (3.5-5.1) mmol/L Chloride 112 H (98-107) mmol/L BUN 26 H (7-17) mg/dL Glucose 68 L (74-99) mg/dL POC Glucose (mg/dL) 60 L 176 H (70-110) mg/dL Calcium 8.3 L (8.4-10.2) mg/dL
[2023-08-05 11:32] LABS: Glucose,Whole Blood 171 mg/dL (70-110)
[2023-08-05 17:41] VITALS: BP 118/68; PULSE 75; RESP 16; TEMP 97.9
--- NOTE | 2023-08-07 06:04 | P.DS ---
Providers Date of admission: 08/02/23 23:09 Attending physician: Gage Sy Consults: 08/02/23 23:09 Consult Physician Routine Consulting Provider: Germán Sierra Consult Reason/Comments: Syncopal episode, CPR Do you want consulting provider notified?: Yes, Notify in am Consult Physician Stat Consulting Provider: Yamile Sunshine Consult Reason/Comments: ICU management, history of CPR Do you want consulting provider notified?: Already Contacted Primary care physician: [facility] Course: History of present illness: 63-year-old one of our office patient with history of insulin-dependent diabetes mellitus, coronary artery disease with 4 stents, severe chronic arthritis, chronic neuropathy, CVA/TIA, deep venous thrombosis, hypertension, hyperl ipidemia, rheumatoid arthritis, recurrent infection with ESBL and MRSA, previous history of stent and recurrent UTI who was in the hospital last: 8 weeks ago with non-ST PR and hyponatremia with DKA was treated did well. She was not feeling well she apparently passed out when she was getting ready for dinner did not respond well started CPR on her for few minutes until EMS picked up the scene but complaining of chest pain and some shortness of breath shortly after arriving to the ER found to have severe hypoglycemia with blood sugar of 23 troponin was negative this time she had mild anemia as well with slight declining kidney function. EKG did not show any major abnormality, CT of the brain with no acute intracranial hemorrhage she had mild encephalomalacia of the right parietal lobe consistent with an old infarct. Chest x-ray showed no acute cardiopulmonary process. Not a clear whether her syncope is hypoglycemia or consistent with cardiovascular especially with her multiple admission and complaint of coronary artery multiple angioplasty and stent. Apparently patient need to be hospitalized in the ICU since she had resuscitation with CPR she will be in ICU at least overnight 20 seeing cardiology and cleared by cardiology. Her medication management for hypoglycemia will be adjusted and change to allow the blood sugar to be up make sure patient does not have any other abnormality ongoing. 08/04/2023: She had another episode of hypoglycemia this morning but blood sugar still running in the 60s adjustment of her insulin pump has not been easy and patient will be calling her ethylbenzene cracking supervisor to see if they can walk her through adjusting her insulin pump with the infusion ratio from 0.825 probably 0.75 8 might help to keep the low number jewelry casting model maker from happening.In the meanwhile and cardiology no event of cardiovascular or any major arrhythmia causing patient to pass out or have syncope, cardiology has suggested to reduce her metoprolol to 25 mg daily blood pressure remain good so far no sign of bradycardia or major arrhythmia. Also patient was seen pulmonary no reason to believe this is hypoxia related to any obstruction, COPD or infection process. She will be cleared from their standpoint as long as her blood sugar is better. REVIEW OF SYSTEMS: CONSTITUTIONAL: Well-developed no acute respiratory distress. Still little bit drowsy and sluggish. EYES: No icterus sclerae, no conjunctivitis. EARS, NOSE, MOUTH, THROAT, and FACE: No sore throat, lymphadenopathy, carotid bruits or deformity. RESPIRATORY: No SOB cough or wheezes. CARDIOVASCULAR: No CP, Palpitation, PND, Orthopnea, or angina. GASTROINTESTINAL: No Abd pain, Nausea or vomiting, no Diarrhea or constipation, No GI Bleed, no distention or masses. GENITOURINARY: Negative for Hematuria or UTI, no kidney stones. Mild incontinence. INTEGUMENT/BREAST: Generalized muscle and joint pain. HEMATOLOGIC/LYMPHATIC: Negative for bleed or purpura. MUSCULOSKELTAL: Myalgia and arthralgia with lower back pain. NEURLOGICAL: Positive loss of consciousness with no seizure activity no blurred vision positive dizziness no sign of stroke or mini stroke at this point. BEHAVIORAL/PSYCH: Negative. ENDOCRINE: Negative. PHYSICAL EXAMINATION: General Appearance: Alert, cooperative, no distress, looks older than her age does not look in any respiratory distress. Neck HEENT: Supple, no lymphadenopathy, no thyroid enlargement, no carotid bruits. Lungs: Clear to auscultation without crackles or wheezes no rhonchi, no deformity. Chest Wall: Normal expansion with slight tenderness, slightly at resuscitation. And no deformity was found on exam, no costochondral pain or discomfort. Heart: Regular rate and rhythm, S1, S2 normal, no murmur, rub or gallop. Back: Symmetric, no curvature, ROM normal, no CVA tenderness. Abdomen: Soft, non-tender, bowel sounds active all four quadrants, no masses, no organomegaly. Extremities: Extremities normal, atraumatic, no cyanosis or edema. Pulses: 2+ and symmetric. Skin: Skin color, texture, tugor normal, no rashes or lesions. Neurologic: Alert oriented x3 cranial nerves II through XII intact, no motor deficit, no abnormal balance or gait. ASSESSMENT AND PLAN: Syncope: The whole episode was severe hypoglycemia with no finding consistent with any cardio vascular process or problem. And she is stable at this point except the blood sugar still slightly bit low. Severe hypoglycemia: More adjustment of her insulin pump need to be made the patient probably to see her ethylbenzene cracking supervisor quite soon after discharge. Multiple coronary artery disease last angiogram was in June 06, 2023 with mild LAD mild circumflex completely blockage in the RCA. The patient was decided with plan to continue medical management only. Type 2 diabetes: She is remain an insulin pump not clear whether she is able to manage it well or not at this point another option of going to switch patient to long-acting insulin and bolus around mealtime. - Hypothyroidism: Remain on levothyroxine to 50 mcg daily. Recurrent angina and chest pain continue isosorbide mononitrate 30 mg daily. Hyperlipidemia: Remain on rosuvastatin 40 mg a day with LDL has been below 70. COPD: She is on her updraft treatment does not require any oxygen she is on steroids is inhaler as well. Chronic depression: Has been on Effexor XR 225 mcg daily along with mirtazapine 7.5 mg at bedtime. Hypertension: Continue losartan 25 mg a day and metoprolol succinate 50 mg daily. Gastroparesis with recurrent episode of nausea and vomiting has been on Zofran, Protonix and Reglan. Chronic diabetic neuropathy: Has been on gabapentin 600 mg 3 times a day. Mild PAD has been on Pletal 100 mg twice a day. Chronic anemia: Still on the iron supplement on regular basis with hemoglobin still running around 10. Discharge planning: Patient has done very well so far no further hypoglycemic episodes at this point she is not having any syncopal episodes no shortness of breath or major complaint. No arrangement to see her ethylbenzene cracking supervisor office in short period of time will be made patient will have probably her insulin pump adjusted at this point she given having hypoglycemia with insulin pump not well-managed by her may be one of the best step is to move her from insulin pump into long-acting insulin and short acting acting insulin around her meal. Will discharge patient home today planning to do home care for monitor for few days. Time spent in patient discharge was over 35 minutes. Patient Condition at Discharge: Stable Plan - Discharge Summary New Discharge Prescriptions: New Losartan [Cozaar] 50 mg PO DAILY #60 tab Metoprolol Succinate (ER) [Toprol XL] 25 mg PO DAILY #60 tab Continue Venlafaxine HCl [Effexor XR] 225 mg PO DAILY Pantoprazole Sodium [Protonix] 40 mg PO BID Meclizine [Antivert] 25 mg PO TID PRN PRN Reason: DIZZINESS Magnesium Oxide [Mag-Ox] 400 mg PO DAILY Levothyroxine Sodium [Synthroid] 200 mcg PO DAILY Levothyroxine Sodium [Synthroid] 50 mcg PO DAILY Cholecalciferol [Vitamin D3 (125 Mcg = 5000 Iu)] 125 mcg PO TID Cetirizine HCl [Zyrtec] 10 mg PO DAILY Acetaminophen Tab [Tylenol] 650 mg PO Q6HR PRN tab PRN Reason: Fever And/ Or Pain Aspirin EC [Ecotrin Low Dose] 81 mg PO DAILY HYDROcodone/APAP 7.5-325MG [[place] 7.5-325] 1 tab PO BID PRN PRN Reason: Pain Metoclopramide HCl [Reglan] 5 mg PO TID PRN #30 tablet PRN Reason: Nausea Ondansetron Odt [Zofran ODT] 4 mg PO Q8HR PRN #10 tab PRN Reason: Nausea Mirtazapine 7.5 mg PO HS cilostazoL [Pletal] 100 mg PO DIRECTED Gabapentin 600 mg PO TID Ferrous Sulfate [Iron (65 MG Elemental)] 325 mg PO DAILY Multivitamins, Thera [Multivitamin (formulary)] 1 tab PO DAILY Ipratropium-Albuterol Nebulize [Duoneb 0.5 mg-3 mg/3 ml Soln] 3 ml INHALATION RT-QID PRN PRN Reason: Shortness Of Breath Glucagon [Baqsimi] 1 spray NASAL DIRECTED PRN PRN Reason: Severe Hypoglycemia Butalb/APAP/Caff 50-325-40Mg [Fioricet 50-325-40] 1 tab PO BID PRN PRN Reason: Migraine Headache Loperamide [Imodium] 2 mg PO TID PRN #21 capsule PRN Reason: Diarrhea Rosuvastatin Calcium [Crestor] 40 mg PO HS Isosorbide Mononitrate ER [Imdur] 30 mg PO DAILY INSULIN LISPRO (For Pump) [humaLOG (For Pump)] 0.01 units SQ-PUMP CONTINUOUS Diclofenac Sodium [Diclofenac Sodium 1%] 1 applic TOPICAL TID Discontinued Metoprolol Succinate (ER) [Toprol Xl] 50 mg PO DAILY Losartan [Cozaar] 25 mg PO DAILY Discharge Medication List Venlafaxine HCl [Effexor XR] 225 mg PO DAILY 10/21/16 [History] Pantoprazole Sodium [Protonix] 40 mg PO BID 04/06/20 [History] Meclizine [Antivert] 25 mg PO TID PRN 01/16/21 [History] Ferrous Sulfate [Iron (65 MG Elemental)] 325 mg PO DAILY 10/02/21 [History] Cetirizine HCl [Zyrtec] 10 mg PO DAILY 07/15/22 [History] Cholecalciferol [Vitamin D3 (125 Mcg = 5000 Iu)] 125 mcg PO TID 07/15/22 [History] Glucagon [Baqsimi] 1 spray NASAL DIRECTED PRN 07/15/22 [History] Ipratropium-Albuterol Nebulize [Duoneb 0.5 mg-3 mg/3 ml Soln] 3 ml INHALATION RT-QID PRN 07/15/22 [History] Levothyroxine Sodium [Synthroid] 50 mcg PO DAILY 07/15/22 [History] Levothyroxine Sodium [Synthroid] 200 mcg PO DAILY 07/15/22 [History] Magnesium Oxide [Mag-Ox] 400 mg PO DAILY 07/15/22 [History] Multivitamins, Thera [Multivitamin (formulary)] 1 tab PO DAILY 07/15/22 [History] Acetaminophen Tab [Tylenol] 650 mg PO Q6HR PRN tab 09/04/22 [Rx] Aspirin EC [Ecotrin Low Dose] 81 mg PO DAILY 10/03/22 [History] Butalb/APAP/Caff 50-325-40Mg [Fioricet 50-325-40] 1 tab PO BID PRN 10/03/22 [History] Loperamide [Imodium] 2 mg PO TID PRN #21 capsule 10/07/22 [Rx] HYDROcodone/APAP 7.5-325MG [[place] 7.5-325] 1 tab PO BID PRN 01/05/23 [History] Rosuvastatin Calcium [Crestor] 40 mg PO HS 01/05/23 [History] Metoclopramide HCl [Reglan] 5 mg PO TID PRN #30 tablet 01/07/23 [Rx] Ondansetron Odt [Zofran ODT] 4 mg PO Q8HR PRN #10 tab 01/07/23 [Rx] INSULIN LISPRO (For Pump) [humaLOG (For Pump)] 0.01 units SQ-PUMP CONTINUOUS 04/10/23 [History] Isosorbide Mononitrate ER [Imdur] 30 mg PO DAILY 04/10/23 [History] Mirtazapine 7.5 mg PO HS 04/10/23 [History] Diclofenac Sodium [Diclofenac Sodium 1%] 1 applic TOPICAL TID 08/02/23 [History] Gabapentin 600 mg PO TID 08/02/23 [History] cilostazoL [Pletal] 100 mg PO DIRECTED 08/02/23 [History] Losartan [Cozaar] 50 mg PO DAILY #60 tab 08/05/23 [Rx] Metoprolol Succinate (ER) [Toprol XL] 25 mg PO DAILY #60 tab 08/05/23 [Rx] Follow up Appointment(s)/Referral(s): Sahra Elder MD [Primary Care Provider] - 08/07/23 9:00 am Dixon Wahl MD [REFERRING] - 08/06/23 2:00 pm Discharge Disposition: HOME WITH HOME HEALTH SERVICES
== END 2023-08-05 16:56 | disposition home health service (06) | DRG 420 ==
LOC: EC 18:19 → 2SICU 23:09
PROVIDERS: ADMIT Internal Medicine Geriatric Medicine; ATTEND Internal Medicine Geriatric Medicine
PROC: 5A12012 Performance of Cardiac Output, Single, Manual (ICD-10-PCS; principal; 2023-08-02)
DX: E11.649 Type 2 diabetes mellitus with hypoglycemia without coma (principal); D64.9 Anemia, unspecified; Z79.02 Long term (current) use of antithrombotics/antiplatelets; E11.43 Type 2 diabetes mellitus with diabetic autonomic (poly)neuropathy; Z79.899 Other long term (current) drug therapy; K31.84 Gastroparesis; F32.A Depression, unspecified; J44.0 Chronic obstructive pulmonary disease with (acute) lower respiratory infection; I25.119 Atherosclerotic heart disease of native coronary artery with unspecified angina pectoris; E89.0 Postprocedural hypothyroidism; Z79.890 Hormone replacement therapy; I10 Essential (primary) hypertension; I25.5 Ischemic cardiomyopathy; E78.5 Hyperlipidemia, unspecified; Z79.4 Long term (current) use of insulin; Z96.41 Presence of insulin pump (external) (internal); E86.0 Dehydration; G25.81 Restless legs syndrome; Z87.440 Personal history of urinary (tract) infections; E11.42 Type 2 diabetes mellitus with diabetic polyneuropathy; I25.2 Old myocardial infarction; M06.9 Rheumatoid arthritis, unspecified; Z79.82 Long term (current) use of aspirin; Z82.49 Family history of ischemic heart disease and other diseases of the circulatory system; Z86.14 Personal history of Methicillin resistant Staphylococcus aureus infection; Z85.528 Personal history of other malignant neoplasm of kidney; Z86.73 Personal history of transient ischemic attack (TIA), and cerebral infarction without residual deficits; Z90.5 Acquired absence of kidney; Z95.5 Presence of coronary angioplasty implant and graft; Z91.040 Latex allergy status; Z88.2 Allergy status to sulfonamides; G93.89 Other specified disorders of brain
CPT/HCPCS: 36415; 70450; 71046; 80048; 80053; 83690; 83735; 83880; 84484; 85025; 85379; 85610; 85730; 93005; 96361; 96374; 99291

== ENCOUNTER 2023-09-02 16:12 | Inpatient (IN) | payer OTHER ==
[2023-09-02] MEDS: DEXTROSE 50% SYRINGE 50 ML IVP STA ×2 (16:20→16:28)
[2023-09-02] MEDS: NALOXONE 0.4 MG/ML 1 ML VIAL IVP STA (16:30)
[2023-09-02 16:33] LABS: Glucose,Whole Blood 31 mg/dL (70-110)
[2023-09-02 16:35] LABS: Glucose,Whole Blood 278 mg/dL (70-110)
--- NOTE | 2023-09-02 16:35 | ED ---
Altered Mental Status HPI - General Chief Complaint: Altered Mental Status Stated Complaint: AMS Time Seen by Provider: 09/02/23 16:34 Source: EMS, RN notes reviewed, old records reviewed Mode of arrival: EMS Limitations: altered mental status, physical limitation - History of Present Illness Initial Comments: This is a 63-year-old female with severe distress coming in with altered mental status found to have significantly low blood pressure responsiveness as well as blood sugar. Patient does have a glucose monitor and insulin pump currently attached. That is removed. Patient is unable to provide any current history. MD Complaint: altered mental status, confusion, decreased responsiveness, weakness -: days(s) Consistency of Symptoms: waxing and waning, getting worse Associated Symptoms: weakness Treatments Prior to Arrival: glucose, IV fluid, other pre-hospital medication - Related Data Home Medications Medication Instructions Recorded Confirmed Venlafaxine HCl [Effexor XR] 225 mg PO DAILY 10/21/16 09/02/23 Pantoprazole Sodium [Protonix] 40 mg PO BID 04/06/20 09/02/23 Meclizine [Antivert] 25 mg PO TID PRN 01/16/21 09/02/23 Ferrous Sulfate [Iron (65 MG 325 mg PO DAILY 10/02/21 09/02/23 Elemental)] Cetirizine HCl [Zyrtec] 10 mg PO DAILY 07/15/22 09/02/23 Cholecalciferol [Vitamin D3 (125 125 mcg PO TID 07/15/22 09/02/23 Mcg = 5000 Iu)] Glucagon [Baqsimi] 1 spray NASAL DIRECTED PRN 07/15/22 09/02/23 Ipratropium-Albuterol Nebulize 3 ml INHALATION RT-QID PRN 07/15/22 09/02/23 [Duoneb 0.5 mg-3 mg/3 ml Soln] Levothyroxine Sodium [Synthroid] 50 mcg PO DAILY 07/15/22 09/02/23 Levothyroxine Sodium [Synthroid] 200 mcg PO DAILY 07/15/22 09/02/23 Magnesium Oxide [Mag-Ox] 400 mg PO DAILY 07/15/22 09/02/23 Multivitamins, Thera [Multivitamin 1 tab PO DAILY 07/15/22 09/02/23 (formulary)] Aspirin EC [Ecotrin Low Dose] 81 mg PO DAILY 10/03/22 09/02/23 Butalb/APAP/Caff 50-325-40Mg 1 tab PO BID PRN 10/03/22 09/02/23 [Fioricet 50-325-40] Rosuvastatin Calcium [Crestor] 40 mg PO HS 01/05/23 09/02/23 INSULIN LISPRO (For Pump) [humaLOG 0.01 units SQ-PUMP CONTINUOUS 04/10/23 09/02/23 (For Pump)] Isosorbide Mononitrate ER [Imdur] 30 mg PO DAILY 04/10/23 09/02/23 Mirtazapine 7.5 mg PO HS 04/10/23 09/02/23 Diclofenac Sodium [Diclofenac 1 applic TOPICAL TID 08/02/23 09/02/23 Sodium 1%] Gabapentin 600 mg PO TID 08/02/23 09/02/23 cilostazoL [Pletal] 100 mg PO DIRECTED 08/02/23 09/02/23 HYDROcodone/APAP 5-325MG [[place] 1 tab PO Q6H PRN 09/02/23 09/02/23 5-325] Ibuprofen [Motrin] 600 mg PO TID PRN 09/02/23 09/02/23 Previous Rx's Medication Instructions Recorded Acetaminophen Tab [Tylenol] 650 mg PO Q6HR PRN tab 09/04/22 Loperamide [Imodium] 2 mg PO TID PRN #21 capsule 10/07/22 Metoclopramide HCl [Reglan] 5 mg PO TID PRN #30 tablet 01/07/23 Ondansetron Odt [Zofran ODT] 4 mg PO Q8HR PRN #10 tab 01/07/23 Losartan [Cozaar] 50 mg PO DAILY #60 tab 08/05/23 Metoprolol Succinate (ER) [Toprol 25 mg PO DAILY #60 tab 08/05/23 XL] Allergies Allergy/AdvReac Type Severity Reaction Status Date / Time grass pollen Allergy Unknown Verified 09/02/23 19:04 latex Allergy Rash/Hives Verified 09/02/23 19:04 Sulfa (Sulfonamide Allergy Rash/Hives/ Verified 09/02/23 19:04 Antibiotics) Swelling venom-honey bee Allergy Anaphylaxis Verified 09/02/23 19:04 prochlorperazine edisylate AdvReac Vomiting Verified 09/02/23 19:04 [From Compazine] Review of Systems ROS Statement: Those systems with pertinent positive or pertinent negative responses have been documented in the HPI. ROS Other: All systems not noted in ROS Statement are negative. Past Medical History Past Medical History: Coronary Artery Disease (CAD), Cancer, COPD, CVA/TIA, Diabetes Mellitus, Deep Vein Thrombosis (DVT), Eye Disorder, GERD/Reflux, Hyperlipidemia, Hypertension, Myocardial Infarction (NH), Renal Disease, Rheumatoid Arthritis (RA), Syncope, Thyroid Disorder Additional Past Medical History / Comment(s): 09/16/16 with SBO with surgery/possible septic emboli with cavitary lesions bilateral lungs. Hx: left renal cell carcinoma with partial nephrectomy. 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 DVT left leg 7-8 yrs ago. hypothyroidism, chronic back pain, degenerative disks, hx UTI with sepsis secondary to ESBL producing E. coli 2015 requiring PICC line insertion for IV antibiotics. restless leg syndrome, peripheral neuropathy. Hx bilateral glaucoma, hx syncope r/t low blood sugars. No CPAP use. Last Myocardial Infarction Date:: 2019 History of Any Multi-Drug Resistant Organisms: ESBL, MRSA, VRE Date of last positivie culture/infection: 05/07/16 ESBL, 05/15/16 VRE, MRSA 09/2017 - upper lip MDRO Source:: URINE E.COLI, EC GALLINARUM Past Surgical History: Appendectomy, Bowel Resection, Section, Heart Catheterization, Heart Catheterization With Stent, Hernia Repair Additional Past Surgical History / Comment(s): 09/30 exploratory laparotomy with lysis of adhesions, bowel resection d/t obstruction. repair incarcerated incisional hernia with abdominal washout. thyroidectomy(non functioning). heart cath 06/28 - 100% occluded, unable to stent. partial left nephrectomy for left kidney renal cell carcinoma. colonoscopy, bilateral cataract removal with lens implants, 2 Sections. cardiac stent 03/2021 Past Anesthesia/Blood Transfusion Reactions: No Reported Reaction Date of Last Stent Placement:: 04/06/2021 Past Psychological History: Depression Smoking Status: Former smoker Past Alcohol Use History: None Reported Past Drug Use History: Marijuana - Past Family History Sister(s) Family Medical History: Cancer, Deep Vein Thrombosis (DVT) Additional Family Medical History / Comment(s): Patient has one sister that from liver cancer. Brother(s) Family Medical History: Cancer, Deep Vein Thrombosis (DVT) Additional Family Medical History / Comment(s): Patient has 1 brother with past ETOH, past drug abuse, DVTs. She has a second brother that has from throat cancer. Daughter(s) Family Medical History: Diabetes Mellitus, Myocardial Infarction (NH) Additional Family Medical History / Comment(s): Daughter at 23 yrs old from massive NH. Father Family Medical History: Myocardial Infarction (NH) Additional Family Medical History / Comment(s): from NH at age 44 Mother Family Medical History: Cancer Additional Family Medical History / Comment(s): B/L breast cancer General Exam Limitations: altered mental status, physical limitation General appearance: anxious, lethargic, obtunded, in distress Head exam: Present: atraumatic, normocephalic, normal inspection Eye exam: Present: normal appearance, PERRL, EOMI. Absent: scleral icterus, conjunctival injection, periorbital swelling ENT exam: Present: normal exam, mucous membranes moist Neck exam: Present: normal inspection. Absent: tenderness, meningismus, lymphadenopathy Respiratory exam: Present: normal lung sounds bilaterally. Absent: respiratory distress, wheezes, rales, rhonchi, stridor Cardiovascular Exam: Present: regular rate, normal rhythm, normal heart sounds. Absent: systolic murmur, diastolic murmur, rubs, gallop, clicks GI/Abdominal exam: Present: soft, normal bowel sounds. Absent: distended, tenderness, guarding, rebound, rigid Extremities exam: Present: normal inspection, full ROM, normal capillary refill. Absent: tenderness, pedal edema, joint swelling, calf tenderness Back exam: Present: normal inspection Neurological exam: Present: alert, oriented X3, CN II-XII intact Psychiatric exam: Present: normal affect, normal mood Skin exam: Present: warm, dry, intact, normal color. Absent: rash Course Vital Signs 09/02/23 09/02/23 09/02/23 16:17 16:30 17:04 Temperature Pulse Rate 65 50 L Pulse Rate [ Bilateral Radial] Respiratory 18 6 L 8 L Rate Blood Pressure 154/70 107/67 Blood Pressure [Right Arm] O2 Sat by Pulse 98 Oximetry 09/02/23 09/02/23 09/02/23 17:30 17:50 18:00 Temperature 95.6 F L Pulse Rate 50 L 50 L 51 L Pulse Rate [ Bilateral Radial] Respiratory 10 L 6 L 4 L Rate Blood Pressure 122/68 108/54 133/62 Blood Pressure [Right Arm] O2 Sat by Pulse 99 97 100 Oximetry 09/02/23 09/02/23 09/02/23 18:30 18:42 19:00 Temperature 96.6 F L Pulse Rate 51 L 52 L 52 L Pulse Rate [ Bilateral Radial] Respiratory 11 L 10 L 10 L Rate Blood Pressure 131/64 126/59 129/62 Blood Pressure [Right Arm] O2 Sat by Pulse 98 100 98 Oximetry 09/02/23 09/02/23 09/02/23 19:30 20:00 20:30 Temperature Pulse Rate 56 L 61 56 L Pulse Rate [ Bilateral Radial] Respiratory 12 11 L 12 Rate Blood Pressure 116/59 121/61 116/66 Blood Pressure [Right Arm] O2 Sat by Pulse 97 97 96 Oximetry 09/03/23 09/03/23 09/03/23 00:00 04:00 07:53 Temperature 97.7 F 97.8 F Pulse Rate 72 Pulse Rate [ 74 73 Bilateral Radial] Respiratory 19 21 Rate Blood Pressure 118/72 Blood Pressure 130/75 95/62 [Right Arm] O2 Sat by Pulse 99 97 95 Oximetry 09/03/23 09/03/23 09/03/23 08:00 12:00 18:28 Temperature 98 F 97.6 F 97.8 F Pulse Rate 77 Pulse Rate [ 80 73 Bilateral Radial] Respiratory 20 18 18 Rate Blood Pressure 109/63 Blood Pressure 107/56 99/52 [Right Arm] O2 Sat by Pulse 95 93 L 97 Oximetry - Reevaluation(s) Reevaluation #1: 09/02/23 18:42 Record is reviewed 09/02/23 18:42 Patient has minimal response to both glucose and Narcan given at the same time Reevaluation #2: 09/02/23 18:43 Patient is found to be hypothermic and remains unresponsive Reevaluation #3: Patient informed of results and questions answered Reevaluation #4: Was pt. sent in by a medical professional or institution (, PA, CEO [employer] FOUNDER, urgent care, hospital, or prison...) When possible be specific @ -no Did you speak to anyone other than the patient for history (EMS, parent, family, police, friend...)? What history was obtained from this source @ -no Did you review nursing and triage notes (agree or disagree)? Why? @ -agree Are old charts reviewed (outside hosp., previous admission, EMS record, old EKG, old radiological studies, urgent care reports/EKG's, prison records)? Report findings @ -yes Differential Diagnosis (chest pain, altered mental status, abdominal pain women, abdominal pain men, vaginal bleeding, weakness, fever, dyspnea, syncope, headache, dizziness, GI bleed, back pain, seizure, CVA, palpatations, mental hea lth, musculoskeletal)? @ -prior EKG interpreted by me (3pts min.). @ -yes X-rays interpreted by me (1pt min.). @ -yes negative for acute disease CT interpreted by me (1pt min.). @ -Yes negative for acute disease U/S interpreted by me (1pt. min.). @ -no What testing was considered but not performed or refused? (CT, X-rays, U/S, labs)? Why? @ -none What meds were considered but not given or refused? Why? @ -none Did you discuss the management of the patient with other professionals (елена duvall i.e. , PA, CEO [employer] FOUNDER, lab, RT, psych nurse, clinical social work aide, web press roll tender, teacher, airport operations officer, pillowcase folder)? Give summary @ -no Was smoking cessation discussed for >3mins.? @ -no Was critical care preformed (if so, how long)? @ -yes95 Were there social determinants of health that impacted care today? How? (Homelessness, low income, unemployed, alcoholism, drug addiction, transportation, low edu. Level, literacy, decrease access to med. care, group home, rehab)? @ -none Was there de-escalation of care discussed even if they declined (Discuss DNR or withdrawal of care, Hospice)? DNR status @ -no What co-morbidities impacted this encounter? (DM, HTN, Smoking, COPD, CAD, Cancer, CVA, ARF, Chemo, Hep., AIDS, mental health diagnosis, sleep apnea, morbid obesity)? @ -none Was patient admitted / discharged? Hospital course, mention meds given and route, prescriptions, significant lab abnormalities, going to OR and other pertinent info. @ - 63 female to ER for evaluation of persistent altered mental status here in the emergency currently, she is awake and alert able to protect airway and found to be hypothermic with blood pressure low, patient is improving with IV hydration, passive rewarming. Admitted Undiagnosed new problem with uncertain prognosis? @ -no Drug Therapy requiring intensive monitoring for toxicity (Heparin, Nitro, Insulin, Cardizem)? @ -no Were any procedures done? @ -no Diagnosis/symptom? @ -Hypothermia, hypotension, hypoglycemia Acute, or Chronic, or Acute on Chronic? @ -Acute Uncomplicated (without systemic symptoms) or Complicated (systemic symptoms)? @ -Complicated Side effects of treatment? @ -no Exacerbation, Progression, or Severe Exacerbation? @ -exacerbation Poses a threat to life or bodily function? How? (Chest pain, [place], NH, pneumonia, PE, COPD, DKA, ARF, appy, cholecystitis, CVA, Diverticulitis, Homicidal, Suicidal, threat to staff... and all critical care pts) @ -yes with significant abnormal vital signs Reevaluation #5: MDM differential Altered Mental Status: Hypoglycemia, DKA, hypercapnia, ETOH, overdose, CO poisoning, trauma, myxedema coma, HTN encephalopathy, infection, encephalitis, psychosis, intercranial hemorrhage, hepatic encephalopathy, meningitis, CVA, this is not meant to be an all-inclusive list - Consultations Consultation #1: Spoke with Dr. Simon who agrees to admit this patient Medical Decision Making - Medical Decision Making 63 female to ER for evaluation of persistent altered mental status here in the emergency currently, she is awake and alert able to protect airway and found to be hypothermic with blood pressure low, patient is improving with IV hydration, passive rewarming. - Lab Data Result diagrams: 09/03/23 08:40 09/04/23 08:16 Lab Results 09/02/23 09/02/23 09/02/23 Range/Units 16:21 16:33 16:40 WBC 7.0 (3.8-10.6) k/uL RBC 4.05 (3.80-5.40) m/uL Hgb 11.7 (11.4-16.0) gm/dL Hct 38.1 (34.0-46.0) % MCV 94.2 (80.0-100.0) fL MCH 28.8 (25.0-35.0) pg MCHC 30.6 L (31.0-37.0) g/dL RDW 15.2 (11.5-15.5) % Plt Count 236 (150-450) k/uL MPV 7.6 Neutrophils % 67 % Lymphocytes % 23 % Monocytes % 4 % Eosinophils % 5 % Basophils % 1 % Neutrophils # 4.6 (1.3-7.7) k/uL Lymphocytes # 1.6 (1.0-4.8) k/uL Monocytes # 0.3 (0-1.0) k/uL Eosinophils # 0.4 (0-0.7) k/uL Basophils # 0.0 (0-0.2) k/uL PT (10.0-12.5) sec INR (<1.2) APTT (22.0-30.0) sec Sodium (137-145) mmol/L Potassium (3.5-5.1) mmol/L Chloride (98-107) mmol/L Carbon Dioxide (22-30) mmol/L Anion Gap mmol/L BUN (7-17) mg/dL Creatinine (0.52-1.04) mg/dL Est GFR (CKD-EPI)AfAm (>60 ml/min/1.73 sqM) Est GFR (CKD-EPI)NonAf (>60 ml/min/1.73 sqM) Glucose (74-99) mg/dL POC Glucose (mg/dL) 31 L 278 H (70-110) mg/dL POC Glu Chemist Enzymes ID Shiva Pia September Plasma Lactic Acid Ab (0.7-2.0) mmol/L Calcium (8.4-10.2) mg/dL Phosphorus (2.5-4.5) mg/dL Magnesium (1.6-2.3) mg/dL Total Bilirubin (0.2-1.3) mg/dL AST (14-36) U/L ALT (4-34) U/L Alkaline Phosphatase (38-126) U/L Troponin I (0.000-0.034) ng/mL NT-Pro-B Natriuret Pep pg/mL Total Protein (6.3-8.2) g/dL Albumin (3.5-5.0) g/dL TSH (0.465-4.680) mIU/L Free T4 (0.78-2.19) ng/dL Urine Color Urine Appearance (Clear) Urine pH (5.0-8.0) Ur Specific [place] (1.001-1.035) Urine Protein (Negative) Urine Glucose (UA) (Negative) Urine Ketones (Negative) Urine Blood (Negative) Urine Nitrite (Negative) Urine Bilirubin (Negative) Urine Urobilinogen (<2.0) mg/dL Ur Leukocyte Esterase (Negative) Blood Type Blood Type Recheck Bld Type Recheck Status Antibody Screen Spec Expiration Date 09/02/23 09/02/23 09/02/23 Range/Units 16:40 16:40 16:40 WBC (3.8-10.6) k/uL RBC (3.80-5.40) m/uL Hgb (11.4-16.0) gm/dL Hct (34.0-46.0) % MCV (80.0-100.0) fL MCH (25.0-35.0) pg MCHC (31.0-37.0) g/dL RDW (11.5-15.5) % Plt Count (150-450) k/uL MPV Neutrophils % % Lymphocytes % % Monocytes % % Eosinophils % % Basophils % % Neutrophils # (1.3-7.7) k/uL Lymphocytes # (1.0-4.8) k/uL Monocytes # (0-1.0) k/uL Eosinophils # (0-0.7) k/uL Basophils # (0-0.2) k/uL PT 10.5 (10.0-12.5) sec INR 0.9 (<1.2) APTT 22.3 (22.0-30.0) sec Sodium 136 L (137-145) mmol/L Potassium 4.7 (3.5-5.1) mmol/L Chloride 103 (98-107) mmol/L Carbon Dioxide 27 (22-30) mmol/L Anion Gap 6 mmol/L BUN 35 H (7-17) mg/dL Creatinine 1.28 H (0.52-1.04) mg/dL Est GFR (CKD-EPI)AfAm 52 (>60 ml/min/1.73 sqM) Est GFR (CKD-EPI)NonAf 45 (>60 ml/min/1.73 sqM) Glucose 398 H (74-99) mg/dL POC Glucose (mg/dL) (70-110) mg/dL POC Glu Chemist Enzymes ID Plasma Lactic Acid Ab 1.2 (0.7-2.0) mmol/L Calcium 8.4 (8.4-10.2) mg/dL Phosphorus 3.7 (2.5-4.5) mg/dL Magnesium 2.1 (1.6-2.3) mg/dL Total Bilirubin 0.4 (0.2-1.3) mg/dL AST 40 H (14-36) U/L ALT 27 (4-34) U/L Alkaline Phosphatase 151 H (38-126) U/L Troponin I (0.000-0.034) ng/mL NT-Pro-B Natriuret Pep 821 pg/mL Total Protein 6.4 (6.3-8.2) g/dL Albumin 3.7 (3.5-5.0) g/dL TSH 67.500 H (0.465-4.680) mIU/L Free T4 (0.78-2.19) ng/dL Urine Color Urine Appearance (Clear) Urine pH (5.0-8.0) Ur Specific [place] (1.001-1.035) Urine Protein (Negative) Urine Glucose (UA) (Negative) Urine Ketones (Negative) Urine Blood (Negative) Urine Nitrite (Negative) Urine Bilirubin (Negative) Urine Urobilinogen (<2.0) mg/dL Ur Leukocyte Esterase (Negative) Blood Type Blood Type Recheck Bld Type Recheck Status Antibody Screen Spec Expiration Date 09/02/23 09/02/23 09/02/23 Range/Units 16:40 16:40 16:52 WBC (3.8-10.6) k/uL RBC (3.80-5.40) m/uL Hgb (11.4-16.0) gm/dL Hct (34.0-46.0) % MCV (80.0-100.0) fL MCH (25.0-35.0) pg MCHC (31.0-37.0) g/dL RDW (11.5-15.5) % Plt Count (150-450) k/uL MPV Neutrophils % % Lymphocytes % % Monocytes % % Eosinophils % % Basophils % % Neutrophils # (1.3-7.7) k/uL Lymphocytes # (1.0-4.8) k/uL Monocytes # (0-1.0) k/uL Eosinophils # (0-0.7) k/uL Basophils # (0-0.2) k/uL PT (10.0-12.5) sec INR (<1.2) APTT (22.0-30.0) sec Sodium (137-145) mmol/L Potassium (3.5-5.1) mmol/L Chloride (98-107) mmol/L Carbon Dioxide (22-30) mmol/L Anion Gap mmol/L BUN (7-17) mg/dL Creatinine (0.52-1.04) mg/dL Est GFR (CKD-EPI)AfAm (>60 ml/min/1.73 sqM) Est GFR (CKD-EPI)NonAf (>60 ml/min/1.73 sqM) Glucose (74-99) mg/dL POC Glucose (mg/dL) (70-110) mg/dL POC Glu Chemist Enzymes ID Plasma Lactic Acid Ab (0.7-2.0) mmol/L Calcium (8.4-10.2) mg/dL Phosphorus (2.5-4.5) mg/dL Magnesium (1.6-2.3) mg/dL Total Bilirubin (0.2-1.3) mg/dL AST (14-36) U/L ALT (4-34) U/L Alkaline Phosphatase (38-126) U/L Troponin I <0.012 (0.000-0.034) ng/mL NT-Pro-B Natriuret Pep pg/mL Total Protein (6.3-8.2) g/dL Albumin (3.5-5.0) g/dL TSH (0.465-4.680) mIU/L Free T4 0.73 L (0.78-2.19) ng/dL Urine Color Urine Appearance (Clear) Urine pH (5.0-8.0) Ur Specific [place] (1.001-1.035) Urine Protein (Negative) Urine Glucose (UA) (Negative) Urine Ketones (Negative) Urine Blood (Negative) Urine Nitrite (Negative) Urine Bilirubin (Negative) Urine Urobilinogen (<2.0) mg/dL Ur Leukocyte Esterase (Negative) Blood Type A Positive Blood Type Recheck A Pos Bld Type Recheck Status No Antibody Screen NEGATIVE Spec Expiration Date 09/05/2023233909/02/23 09/02/23 Range/Units 17:49 18:43 WBC (3.8-10.6) k/uL RBC (3.80-5.40) m/uL Hgb (11.4-16.0) gm/dL Hct (34.0-46.0) % MCV (80.0-100.0) fL MCH (25.0-35.0) pg MCHC (31.0-37.0) g/dL RDW (11.5-15.5) % Plt Count (150-450) k/uL MPV Neutrophils % % Lymphocytes % % Monocytes % % Eosinophils % % Basophils % % Neutrophils # (1.3-7.7) k/uL Lymphocytes # (1.0-4.8) k/uL Monocytes # (0-1.0) k/uL Eosinophils # (0-0.7) k/uL Basophils # (0-0.2) k/uL PT (10.0-12.5) sec INR (<1.2) APTT (22.0-30.0) sec Sodium (137-145) mmol/L Potassium (3.5-5.1) mmol/L Chloride (98-107) mmol/L Carbon Dioxide (22-30) mmol/L Anion Gap mmol/L BUN (7-17) mg/dL Creatinine (0.52-1.04) mg/dL Est GFR (CKD-EPI)AfAm (>60 ml/min/1.73 sqM) Est GFR (CKD-EPI)NonAf (>60 ml/min/1.73 sqM) Glucose (74-99) mg/dL POC Glucose (mg/dL) 231 H (70-110) mg/dL POC Glu Chemist Enzymes ID Pia Shannon Plasma Lactic Acid Ab (0.7-2.0) mmol/L Calcium (8.4-10.2) mg/dL Phosphorus (2.5-4.5) mg/dL Magnesium (1.6-2.3) mg/dL Total Bilirubin (0.2-1.3) mg/dL AST (14-36) U/L ALT (4-34) U/L Alkaline Phosphatase (38-126) U/L Troponin I (0.000-0.034) ng/mL NT-Pro-B Natriuret Pep pg/mL Total Protein (6.3-8.2) g/dL Albumin (3.5-5.0) g/dL TSH (0.465-4.680) mIU/L Free T4 (0.78-2.19) ng/dL Urine Color Light Yellow Urine Appearance Clear (Clear) Urine pH 5.5 (5.0-8.0) Ur Specific [place] 1.016 (1.001-1.035) Urine Protein Negative (Negative) Urine Glucose (UA) 3+ H (Negative) Urine Ketones Negative (Negative) Urine Blood Negative (Negative) Urine Nitrite Negative (Negative) Urine Bilirubin Negative (Negative) Urine Urobilinogen <2.0 (<2.0) mg/dL Ur Leukocyte Esterase Negative (Negative) Blood Type Blood Type Recheck Bld Type Recheck Status Antibody Screen Spec Expiration Date - EKG Data -: EKG Interpreted by Me (EKG is sinus bradycardia 55 CA 174 QRS 97 QTc 482) - Radiology Data Radiology results: report reviewed (CT brain is negative for acute disease chest x-ray negative for acute disease), image reviewed Critical Care Time Critical Care Time: Yes Total Critical Care Time: 95 Disposition Clinical Impression: Renal insufficiency, Hypoglycemia, Altered mental status, Delirium due to general medical condition, Hypothyroid coma, Weakness, Bradycardia, Dehydration, Hypothermia Disposition: ADMITTED IP TO THIS [facility] Condition: Critical Is patient prescribed a controlled substance at d/c from ED?: No Time of Disposition: 18:45
[2023-09-02] MEDS: HYDROCORTISONE SUCCINATE 100 MG/2 ML VIAL IV STA (16:46)
[2023-09-02] MEDS: SODIUM CHLORIDE 0.9% 1,000 ML IV STA (16:46)
[2023-09-02 17:12] LABS: Basophils % (A) 1 %; Eosinophils # (A) 0.4 k/uL (0-0.7); Eosinophils % (A) 5 %; HCT 38.1 % (34.0-46.0); HGB 11.7 gm/dL (11.4-16.0); Lymphocytes # (A) 1.6 k/uL (1.0-4.8); Lymphocytes % (A) 23 %; MCH 28.8 pg (25.0-35.0); MCHC 30.6 g/dL (31.0-37.0); MCV 94.2 fL (80.0-100.0); Mean Platelet Volume 7.6; Monocytes # (A) 0.3 k/uL (0-1.0); Monocytes % (A) 4 %; Neutrophils # (A) 4.6 k/uL (1.3-7.7); Neutrophils % (A) 67 %; Platelet Count 236 k/uL (150-450); RBC 4.05 m/uL (3.80-5.40); RDW 15.2 % (11.5-15.5)
[2023-09-02 17:22] LABS: Chloride 103 mmol/L (98-107)
[2023-09-02 17:23] LABS: ALT 27 U/L (4-34); AST 40 U/L (14-36); African American GFR (CKD) 52 (>60 ml/min/1.73 sqM); Albumin 3.7 g/dL (3.5-5.0); Alkaline Phosphatase 151 U/L (38-126); Anion Gap 6 mmol/L; Blood Urea Nitrogen 35 mg/dL (7-17); Calcium 8.4 mg/dL (8.4-10.2); Carbon Dioxide 27 mmol/L (22-30); Glucose 398 mg/dL (74-99); Magnesium 2.1 mg/dL (1.6-2.3); Non-African American GFR(CKD) 45 (>60 ml/min/1.73 sqM); Phosphorus 3.7 mg/dL (2.5-4.5); Potassium 4.7 mmol/L (3.5-5.1); Sodium 136 mmol/L (137-145); Total Bilirubin 0.4 mg/dL (0.2-1.3); Total Protein 6.4 g/dL (6.3-8.2)
[2023-09-02 17:31] LABS: INR 0.9 (<1.2); NT-Pro-B-Type Natriuretic Pept 821 pg/mL; Partial Thromboplastin Time 22.3 sec (22.0-30.0); Prothrombin Time 10.5 sec (10.0-12.5)
--- NOTE | 2023-09-02 17:41 | XR ---
EXAMINATION TYPE: XR chest 1V portable DATE OF EXAM: 09/02/2023 5:19 PM CLINICAL INDICATION:Female, 63 years old with history of weak; [facility] COMPARISON: Chest radiographs from 08/02/2023. TECHNIQUE: XR chest 1V portable Frontal view of the chest. FINDINGS: Lungs/Pleura: There is no evidence of pleural effusion, focal consolidation, or pneumothorax. Pulmonary vascularity: Unremarkable. Heart/mediastinum: Cardiomediastinal silhouette is unremarkable. A loop recorder projects over the le ft thorax over the heart. Musculoskeletal: No acute osseous pathology. IMPRESSION: No acute cardiopulmonary disease/process.
--- NOTE | 2023-09-02 17:46 | CT ---
EXAMINATION TYPE: CT brain wo con CT DLP: 1075.9 mGycm, Automated exposure control for dose reduction was used. DATE OF EXAM: 09/02/2023 5:37 PM COMPARISON: 08/02/2023. CLINICAL INDICATION:Female, 63 years old with history of weakness, ams, weakness TECHNIQUE: Brain: Axial CT images of the brain were obtained with coronal and sagittal reformats created and rev iewed. Contrast used: None. Oral contrast used: None. FINDINGS: Brain: Extra-axial spaces: No abnormal extra-axial fluid collections. Ventricular system: Within normal limits Cerebral parenchyma: No acute intraparenchymal hemorrhage or mass effect. The guerrero-white junction is well differentiated. Encephalomalacia from remote occipital/parietal lobe injury . Cerebellum: Unremarkable. Mass effect: No evidence of midline shift. Intracranial vasculature: unremarkable Soft tissues: Normal. Calvarium/osseous structures: No depressed skull fracture. Paranasal sinuses and mastoid air cells: Mild scattered paranasal sinus disease. Visualized orbits: Bilateral aphakia IMPRESSION: 1. No acute intracranial process. 2. Remote right occipital/parietal lobe injury.
[2023-09-02 17:50] LABS: Glucose,Whole Blood 231 mg/dL (70-110)
[2023-09-02] MEDS: LEVOTHYROXINE IVP 100 MCG/5 ML VIAL IV STA (18:54)
[2023-09-02 18:57] LABS: Appearance,Urine Clear (Clear); Bilirubin,Urine Negative (Negative); Blood,Urine Negative (Negative); Color,Urine Light Yellow; Glucose,Urine (UA) 3+ (Negative); Ketones,Urine Negative (Negative); Leukocyte Esterase,Urine Negative (Negative); Nitrite,Urine Negative (Negative); PH, Urine 5.5 (5.0-8.0); Protein,Urine Negative (Negative); Specific Gravity,Urine 1.016 (1.001-1.035); Urobilinogen,Urine <2.0 mg/dL (<2.0)
[2023-09-02] MEDS ORDERED: ONDANSETRON 4 MG/2 ML VIAL IVP PRN (20:00)
[2023-09-02] MEDS ORDERED: NALOXONE 0.4 MG/ML 1 ML VIAL IV PRN (20:00)
[2023-09-02] MEDS ORDERED: GLUCAGON 3 MG NASAL PRN (20:53)
[2023-09-02] MEDS ORDERED: METOCLOPRAMIDE 5 MG TAB PO PRN (20:53)
[2023-09-02] MEDS ORDERED: LOPERAMIDE 2 MG CAP PO PRN (20:53)
[2023-09-02] MEDS ORDERED: ONDANSETRON ODT 4 MG TAB PO PRN (20:53)
[2023-09-02] MEDS ORDERED: BUTALB/APAP/CAFF 50-325-40MG TAB PO PRN (20:53)
[2023-09-02] MEDS ORDERED: IPRATROPIUM-ALBUTEROL 3 ML NEB INHALATION PRN (20:53)
[2023-09-02 22:48] LABS: Glucose,Whole Blood 388 mg/dL (70-110)
[2023-09-02] MEDS: HYDROCORTISONE SUCCINATE 100 MG/2 ML VIAL IV SCH (23:03)
[2023-09-02] MEDS: cilostazoL 100 MG TAB PO SCH (23:03)
[2023-09-02] MEDS: MIRTAZAPINE 15 MG TAB PO SCH (23:04)
[2023-09-02] MEDS: CHOLECALCIFEROL 125 MCG (5000 IU) TABLET PO SCH (23:05)
[2023-09-02] MEDS: ATORVASTATIN 80 MG TAB PO SCH (23:05)
[2023-09-02] MEDS: PANTOPRAZOLE 40 MG TABLET PO SCH (23:06)
[2023-09-02] MEDS: SODIUM CHLORIDE 0.9% 1,000 ML IV SCH (23:06)
[2023-09-02] MEDS: MORPHINE SULFATE 4 MG/ML SYRINGE IV PRN (23:07)
[2023-09-03 01:52] LABS: Glucose,Whole Blood 450 mg/dL (70-110)
[2023-09-03 03:50] LABS: Glucose,Whole Blood 396 mg/dL (70-110)
[2023-09-03 06:13] LABS: Glucose,Whole Blood 369 mg/dL (70-110)
--- NOTE | 2023-09-03 06:49 | P.HPIM ---
History of Present Illness H&P Date: 09/02/23 History of present illness: 63-year-old one of our office patient with history of insulin-dependent diabetes mellitus, coronary artery disease with 4 stents, severe chronic arthritis, chronic neuropathy, CVA/TIA, deep venous thrombosis, hypertension, hyper lipidemia, rheumatoid arthritis, recurrent infection with ESBL and MRSA, previous history of stent and recurrent UTI who was in the hospital last: 8 weeks ago with non-ST [place] and hyponatremia with DKA was treated did well. She was admitted on 08/03/2023 for syncopal episode and questionable of TIA found to have severe hypoglycemia her troponin was negative for the time she had mild anemia slight decline in kidney function. Further testing including CT of the brain did not show any hemorrhage or abnormality but mild encephalomalacia of the right parietal lobe. Cardiology consultation along with pulmonary consultation failed to show any major abnormality with exception of the extended hypoglycemia she is going through repeatedly. Starting her back on her insulin pump continues to run slightly below and by the time she left the hospital she was supposed to go back to see her igniter assembler to talk about further management may be taking her off insulin pump completely and started back on short and long-acting insulin our the combined insulin 70/30 twice a day for better management and probably better chance of not running hypoglycemic as many times as she does currently. I am not quite sure what to make out of this more than probably the management and the confusion sugars through managing her insulin pump can be mostly the reason why her hypoglycemia happening more often and I would still highly recommend against going back on insulin pump. Difficult part of this again that patient will still insist to go back to her igniter assembler for managing her diabetes regardless with choice remain in the hospital will be left entirely up to her igniter assembler to have the final plan which is defeat the purpose of team planning since endocrinology are not taking care of her in the hospital or having to watch them any episode of hypoglycemia she goes through almost on a weekly basis. Patient brought by ambulance on for significant altered mental status and not responding well and time. Same time Found to have severe hypoglycemia initially blood sugar was running in the 30s and 40s had to discontinue her insulin pump and run patient on D5 IV to allow her to regain her conscious diet. Also patient found to be in slight acute kidney injury again after first couple hours trending slightly hyperglycemic which will continue for now she will reinitiate plan for Accu-Chek with sliding scale coverage with NovoLog and unwilling to start her back on either insulin 70/30 start may be at 10 or 15 units twice a day and titrate dose higher with patient cardiac disease she will benefit from being on SGLT2 product like Tradjenta or Jardiance. Which will be started in the morning. Will switch her D5 finally through KVO or normal saline for few hours before we take her off. Significant consult with diabetic management in the hospital as well. REVIEW OF SYSTEMS: CONSTITUTIONAL: Well-developed no acute respiratory distress. Still little bit drowsy and sluggish. EYES: No icterus sclerae, no conjunctivitis. EARS, NOSE, MOUTH, THROAT, and FACE: No sore throat, lymphadenopathy, carotid bruits or deformity. RESPIRATORY: No SOB cough or wheezes. CARDIOVASCULAR: No CP, Palpitation, PND, Orthopnea, or angina. GASTROINTESTINAL: No Abd pain, Nausea or vomiting, no Diarrhea or constipation, No GI Bleed, no distention or masses. GENITOURINARY: Negative for Hematuria or UTI, no kidney stones. Mild incontinence. INTEGUMENT/BREAST: Generalized muscle and joint pain. HEMATOLOGIC/LYMPHATIC: Negative for bleed or purpura. MUSCULOSKELTAL: Myalgia and arthralgia with lower back pain. NEURLOGICAL: Positive loss of consciousness with no seizure activity no blurred vision positive dizziness no sign of stroke or mini stroke at this point. BEHAVIORAL/PSYCH: Negative. ENDOCRINE: Negative. PHYSICAL EXAMINATION: General Appearance: Alert, cooperative, no distress, looks older than her age does not look in any respiratory distress. Neck HEENT: Supple, no lymphadenopathy, no thyroid enlargement, no carotid bruits. Lungs: Clear to auscultation without crackles or wheezes no rhonchi, no deformity. Chest Wall: Normal expansion with slight tenderness, slightly at resuscitation. And no deformity was found on exam, no costochondral pain or discomfort. Heart: Regular rate and rhythm, S1, S2 normal, no murmur, rub or gallop. Back: Symmetric, no curvature, ROM normal, no CVA tenderness. Abdomen: Soft, non-tender, bowel sounds active all four quadrants, no masses, no organomegaly. Extremities: Extremities normal, atraumatic, no cyanosis or edema. Pulses: 2+ and symmetric. Skin: Skin color, texture, tugor normal, no rashes or lesions. Neurologic: Alert oriented x3 cranial nerves II through XII intact, no motor deficit, no abnormal balance or gait. ASSESSMENT AND PLAN: Altered mental status: Most likely from extended hypoglycemia not clear for how many hours so this might take little longer time to regain her conscious and mentation might take her to the morning in the meanwhile will discontinue her insulin pump and continue D5 and allow sugar to go a little bit up before starting longer-term insulin management. Severe hypoglycemia: Insulin pump was off and she is to continue on D5 given her blood sugar might be higher than expected but we will start her back on short and long-acting insulin in the morning along with SGLT2 product. _Severe hypothyroidism: Either from noncompliance to medication or failure to absorb, patient was giving 100 mcg of levothyroxine IV and then we will switch her back to 250 mcg orally daily. _Severe hypothermia: With central body temperature still low most likely from the extended time she had hypoglycemia for hopefully warming up her body and correcting the hypoglycemia will help the hypothermia. Multiple coronary artery disease last angiogram was in June 06, 2023 with mild LAD mild circumflex completely blockage in the RCA. The patient will be on medical management only. Type 2 diabetes: She is still been managed by her igniter assembler on insulin pump which proven that probably this is not a good choice for patient because of the repeat episode of hypoglycemia most likely related to the mismanagement of her insulin pump highly advised against insulin pump at this point and when patient leaves the hospital this time letter be sent to her igniter assembler to continue and help to manage keeping her on short and long acting insulin twice a day along with bolus of her short acting insulin with NovoLog before each meal can be designed with either carbohydrate or the time of meals can be little bit better managed with continue glucose monitor especially if patient ended up seeing dental ceramist helper our her igniter assembler office on weekly basis for the next few weeks. Hypertension: Continue losartan 25 mg a day and metoprolol succinate 50 mg daily. Chronic diabetic neuropathy: Has been on gabapentin 600 mg 3 times a day. Will hold off on gabapentin for the next 24 hours. Hypothyroidism: Continue levothyroxine 250 mcg daily. Will continue medicat ion. Hyperlipidemia: Remain on rosuvastatin 40 mg a day with LDL has been below 70. COPD: She is on her updraft treatment does not require any oxygen she is on steroids is inhaler as well. Chronic depression: Has been on Effexor XR 225 mcg daily along with mirtazapine 7.5 mg at bedtime. Gastroparesis with recurrent episode of nausea and vomiting has been on Zofran, Protonix and Reglan. Mild PAD has been on Pletal 100 mg twice a day. Chronic elevations anemia: Still on the iron supplement on regular basis with hemoglobin still running around 10. GI prophylaxis: Remain on pantoprazole. DVT prophylaxis: Knee-high ALEXANDRE hose and early mobilization. CODE STATUS: Full code. Admit patient to the inpatient service for more than 2 night stay. Past Medical History Past Medical History: Coronary Artery Disease (CAD), Cancer, COPD, CVA/TIA, Diabetes Mellitus, Deep Vein Thrombosis (DVT), Eye Disorder, GERD/Reflux, Hyperlipidemia, Hypertension, Myocardial Infarction ([place]), Renal Disease, Rheumatoid Arthritis (RA), Syncope, Thyroid Disorder Additional Past Medical History / Comment(s): 09/16/16 with SBO with surgery/possible septic emboli with cavitary lesions bilateral lungs. Hx: left renal cell carcinoma with partial nephrectomy. 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 DVT left leg 7-8 yrs ago. hypothyroidism, chronic back pain, degenerative disks, hx UTI with sepsis secondary to ESBL producing E. coli 2015 requiring PICC line insertion for IV antibiotics. restless leg syndrome, peripheral neuropathy. Hx bilateral glaucoma, hx syncope r/t low blood sugars. No CPAP use. Last Myocardial Infarction Date:: 2019 History of Any Multi-Drug Resistant Organisms: ESBL, MRSA, VRE Date of last positivie culture/infection: 05/07/16 ESBL, 05/15/16 VRE, MRSA 09/2017 - upper lip MDRO Source:: URINE E.COLI, EC GALLINARUM Past Surgical History: Appendectomy, Bowel Resection, Section, Heart Catheterization, Heart Catheterization With Stent, Hernia Repair Additional Past Surgical History / Comment(s): 09/30 exploratory laparotomy with lysis of adhesions, bowel resection d/t obstruction. repair incarcerated incisional hernia with abdominal washout. thyroidectomy(non functioning). heart cath 06/28 - 100% occluded, unable to stent. partial left nephrectomy for left kidney renal cell carcinoma. colonoscopy, bilateral cataract removal with lens implants, 2 Sections. cardiac stent 03/2021 Past Anesthesia/Blood Transfusion Reactions: No Reported Reaction Date of Last Stent Placement:: 04/06/2021 Past Psychological History: Depression Smoking Status: Former smoker Past Alcohol Use History: None Reported Past Drug Use History: Marijuana - Past Family History Sister(s) Family Medical History: Cancer, Deep Vein Thrombosis (DVT) Additional Family Medical History / Comment(s): Patient has one sister that from liver cancer. Brother(s) Family Medical History: Cancer, Deep Vein Thrombosis (DVT) Additional Family Medical History / Comment(s): Patient has 1 brother with past ETOH, past drug abuse, DVTs. She has a second brother that has from throat cancer. Daughter(s) Family Medical History: Diabetes Mellitus, Myocardial Infarction ([place]) Additional Family Medical History / Comment(s): Daughter at 23 yrs old from massive [place]. Father Family Medical History: Myocardial Infarction ([place]) Additional Family Medical History / Comment(s): from [place] at age 44 Mother Family Medical History: Cancer Additional Family Medical History / Comment(s): B/L breast cancer Medications and Allergies Home Medications Medication Instructions Recorded Confirmed Type Venlafaxine HCl [Effexor XR] 225 mg PO DAILY 10/21/16 09/02/23 History Pantoprazole Sodium [Protonix] 40 mg PO BID 04/06/20 09/02/23 History Meclizine [Antivert] 25 mg PO TID PRN 01/16/21 09/02/23 History Ferrous Sulfate [Iron (65 MG 325 mg PO DAILY 10/02/21 09/02/23 History Elemental)] Cetirizine HCl [Zyrtec] 10 mg PO DAILY 07/15/22 09/02/23 History Cholecalciferol [Vitamin D3 (125 125 mcg PO TID 07/15/22 09/02/23 History Mcg = 5000 Iu)] Glucagon [Baqsimi] 1 spray NASAL DIRECTED PRN 07/15/22 09/02/23 History Ipratropium-Albuterol Nebulize 3 ml INHALATION RT-QID PRN 07/15/22 09/02/23 History [Duoneb 0.5 mg-3 mg/3 ml Soln] Levothyroxine Sodium [Synthroid] 50 mcg PO DAILY 07/15/22 09/02/23 History Levothyroxine Sodium [Synthroid] 200 mcg PO DAILY 07/15/22 09/02/23 History Magnesium Oxide [Mag-Ox] 400 mg PO DAILY 07/15/22 09/02/23 History Multivitamins, Thera [Multivitamin 1 tab PO DAILY 07/15/22 09/02/23 History (formulary)] Acetaminophen Tab [Tylenol] 650 mg PO Q6HR PRN tab 09/04/22 09/02/23 Rx Aspirin EC [Ecotrin Low Dose] 81 mg PO DAILY 10/03/22 09/02/23 History Butalb/APAP/Caff 50-325-40Mg 1 tab PO BID PRN 10/03/22 09/02/23 History [Fioricet 50-325-40] Loperamide [Imodium] 2 mg PO TID PRN #21 capsule 10/07/22 09/02/23 Rx Rosuvastatin Calcium [Crestor] 40 mg PO HS 01/05/23 09/02/23 History Metoclopramide HCl [Reglan] 5 mg PO TID PRN #30 tablet 01/07/23 09/02/23 Rx Ondansetron Odt [Zofran ODT] 4 mg PO Q8HR PRN #10 tab 01/07/23 09/02/23 Rx INSULIN LISPRO (For Pump) [humaLOG 0.01 units SQ-PUMP CONTINUOUS 04/10/23 09/02/23 History (For Pump)] Isosorbide Mononitrate ER [Imdur] 30 mg PO DAILY 04/10/23 09/02/23 History Mirtazapine 7.5 mg PO HS 04/10/23 09/02/23 History Diclofenac Sodium [Diclofenac 1 applic TOPICAL TID 08/02/23 09/02/23 History Sodium 1%] Gabapentin 600 mg PO TID 08/02/23 09/02/23 History cilostazoL [Pletal] 100 mg PO DIRECTED 08/02/23 09/02/23 History Losartan [Cozaar] 50 mg PO DAILY #60 tab 08/05/23 09/02/23 Rx Metoprolol Succinate (ER) [Toprol 25 mg PO DAILY #60 tab 08/05/23 09/02/23 Rx XL] HYDROcodone/APAP 5-325MG [Scarbro 1 tab PO Q6H PRN 09/02/23 09/02/23 History 5-325] Ibuprofen [Motrin] 600 mg PO TID PRN 09/02/23 09/02/23 History Allergies Allergy/AdvReac Type Severity Reaction Status Date / Time grass pollen Allergy Unknown Verified 09/02/23 19:04 latex Allergy Rash/Hives Verified 09/02/23 19:04 Sulfa (Sulfonamide Allergy Rash/Hives/ Verified 09/02/23 19:04 Antibiotics) Swelling venom-honey bee Allergy Anaphylaxis Verified 09/02/23 19:04 prochlorperazine edisylate AdvReac Vomiting Verified 09/02/23 19:04 [From Compazine] Physical Exam Vitals: Vital Signs Temp Pulse Resp BP Pulse Ox 09/02/23 18:42 96.6 F L 52 L 10 L 126/59 100 09/02/23 17:50 95.6 F L 50 L 6 L 108/54 97 09/02/23 17:04 50 L 8 L 107/67 09/02/23 16:30 6 L 09/02/23 16:17 65 18 154/70 98 Intake and Output 09/02/23 09/02/23 09/02/23 06:59 14:59 22:59 Other: Weight 77.111 kg Results CBC & Chem 7: 09/03/23 08:40 09/03/23 08:40 Labs: Abnormal Lab Results - Last 24 Hours (Table) 09/02/23 09/02/23 09/02/23 Range/Units 16:21 16:33 16:40 MCHC 30.6 L (31.0-37.0) g/dL Sodium (137-145) mmol/L BUN (7-17) mg/dL Creatinine (0.52-1.04) mg/dL Glucose (74-99) mg/dL POC Glucose (mg/dL) 31 L 278 H (70-110) mg/dL AST (14-36) U/L Alkaline Phosphatase (38-126) U/L TSH (0.465-4.680) mIU/L Free T4 (0.78-2.19) ng/dL Urine Glucose (UA) (Negative) 09/02/23 09/02/23 09/02/23 Range/Units 16:40 16:40 17:49 MCHC (31.0-37.0) g/dL Sodium 136 L (137-145) mmol/L BUN 35 H (7-17) mg/dL Creatinine 1.28 H (0.52-1.04) mg/dL Glucose 398 H (74-99) mg/dL POC Glucose (mg/dL) 231 H (70-110) mg/dL AST 40 H (14-36) U/L Alkaline Phosphatase 151 H (38-126) U/L TSH 67.500 H (0.465-4.680) mIU/L Free T4 0.73 L (0.78-2.19) ng/dL Urine Glucose (UA) (Negative) 09/02/23 Range/Units 18:43 MCHC (31.0-37.0) g/dL Sodium (137-145) mmol/L BUN (7-17) mg/dL Creatinine (0.52-1.04) mg/dL Glucose (74-99) mg/dL POC Glucose (mg/dL) (70-110) mg/dL AST (14-36) U/L Alkaline Phosphatase (38-126) U/L TSH (0.465-4.680) mIU/L Free T4 (0.78-2.19) ng/dL Urine Glucose (UA) 3+ H (Negative)
[2023-09-03] MEDS ORDERED: DEXTROSE 50% SYRINGE 50 ML IVP PRN ×3 (07:12→20:41)
[2023-09-03] MEDS ORDERED: INSULIN ASPART (NovoLOG) 100 UNIT/ML VIAL SQ SCH (07:30)
[2023-09-03 08:13] LABS: Glucose,Whole Blood 322 mg/dL (70-110)
[2023-09-03] MEDS ORDERED: NON FORMULARY DRUG (Levothyroxine Sodium [Synthroid] 200 MCG Tablet) PO SCH (09:00)
[2023-09-03] MEDS ORDERED: LEVOTHYROXINE 50 MCG TAB PO SCH (09:00)
[2023-09-03] MEDS: FERROUS SULFATE 325 MG TAB PO SCH (09:01)
[2023-09-03] MEDS: VENLAFAXINE HCL ER 75 MG CAP PO SCH (09:01)
[2023-09-03] MEDS: ISOSORBIDE MONONITRATE ER 30 MG TAB.ER.24H PO SCH (09:01)
[2023-09-03] MEDS: METOPROLOL SUCCINATE (ER) 25 MG TAB.ER.24H PO SCH (09:01)
[2023-09-03] MEDS: LINAGLIPTIN 5 MG TABLET PO SCH (09:01)
[2023-09-03] MEDS: MULTIVITAMINS, THERA 1 EACH TAB PO SCH (09:01)
[2023-09-03] MEDS: MAGNESIUM OXIDE 400 MG TAB PO SCH (09:01)
[2023-09-03] MEDS: ASPIRIN 81 MG PO SCH (09:01)
[2023-09-03] MEDS: LOSARTAN 50 MG TAB PO SCH (09:01)
[2023-09-03] MEDS: LORATADINE 10 MG TAB PO SCH (09:01)
[2023-09-03] MEDS: INSULIN ASPART (NovoLOG) 100 UNIT/ML VIAL SQ SCH ×4 (09:02→21:03)
[2023-09-03 09:33] LABS: ALT 24 U/L (4-34); AST 26 U/L (14-36); African American GFR (CKD) 56 (>60 ml/min/1.73 sqM); Albumin 3.2 g/dL (3.5-5.0); Alkaline Phosphatase 149 U/L (38-126); Anion Gap 8 mmol/L; Blood Urea Nitrogen 36 mg/dL (7-17); Calcium 8.4 mg/dL (8.4-10.2); Carbon Dioxide 24 mmol/L (22-30); Chloride 107 mmol/L (98-107); Glucose 323 mg/dL (74-99); Magnesium 2.2 mg/dL (1.6-2.3); Non-African American GFR(CKD) 49 (>60 ml/min/1.73 sqM); Phosphorus 4.8 mg/dL (2.5-4.5); Potassium 5.1 mmol/L (3.5-5.1); Sodium 139 mmol/L (137-145); Total Bilirubin 0.3 mg/dL (0.2-1.3); Total Protein 5.8 g/dL (6.3-8.2)
--- NOTE | 2023-09-03 10:03 | P.CRDCN ---
History of Present Illness History of present illness: HISTORY OF PRESENT ILLNESS: This is a 63-year-old female with a past medical history significant for diabetes, ischemic cardiomyopathy, coronary artery disease, hyperlipidemia and hypothyroidism. Patient follows in the office with Dr. Sierra. We have been asked to see the patient in consultation for bradycardia. Patient examined at the bedside in the emergency room. Patient states she presented to the hospital due to generalized fatigue. She states that she was generally feeling unwell at home. She reports having some soreness in her foot which prompted her to come to the emergency room. She denies having any chest pain or pressure. She denies any shortness of breath. She denies having any fever or chills. She does report having a cough for the past few days. She states her blood sugar levels at home have been very labile. DIAGNOSTICS: - EKG reveals sinus bradycardia with T wave inversions in lead I, lead II, aVL, and V4V6 - Chest xray negative for acute process - Laboratory data: WBC 7.0. Hemoglobin 11.7. Platelet count 236. Sodium 139. Potassium 5.1. BUN 36. Creatinine 1.19. Blood sugar 322. Lactic acid 1.4. Troponin negative x 1. proBNP 821. TSH 67.5. Free T40.73. - Current home cardiac medications include aspirin 81 mg daily, Imdur 30 mg dev ly, losartan 50 mg daily, metoprolol succinate 25 mg daily, rosuvastatin 40 mg at night, and Pletal 100 mg as directed. - Most recent echocardiogram obtained in May 2023 revealed ejection fractio n 45 to 50%, apex hypokinetic, apical septum and apical inferior moya are hypokinetic, mild MR, mild TR - Cardiac catheterization history: May [address] Mcghee revealing moderate disease in the mid LAD, moderate disease in the left circumflex, and absent RCA based on prior cath due to congenital abnormality REVIEW OF SYSTEMS: At the time of my exam: CONSTITUTIONAL: Denies fever or chills. HEENT: Denies blurred vision, vision changes, or eye pain. Denies hemoptysis CARDIOVASCULAR: Denies chest pain. Denies orthopnea. Denies PND. Denies palpitations RESPIRATORY: Denies shortness of breath. GASTROINTESTINAL: Denies abdominal pain. Denies nausea or vomiting. HEMATOLOGIC: Denies bleeding disorders. GENITOURINARY: Denies any blood in urine. SKIN: Denies pruitis. Denies rash. PHYSICAL EXAM: VITAL SIGNS: Reviewed. GENERAL: Well-developed in no acute distress. HEENT: Head is normocephalic. Pupils are equal, round. Sclerae anicteric. Mucous membranes of the mouth are moist. Neck supple. No JVD or thyromegaly LUNGS: Respirations even and unlabored. Lungs essentially clear to auscultation bilaterally. HEART: Regular rate and rhythm. S1 and S2 heard. ABDOMEN: Soft. Nondistended. Nontender. EXTREMITIES: Normal range of motion. No clubbing or cyanosis. Peripheral pulses intact. No lower extremity edema NEUROLOGIC: Awake and alert. Oriented x 3. ASSESSMENT: Generalized weakness and malaise Diabetes with labile blood sugars Asymptomatic sinus bradycardia Coronary artery disease with moderate disease of the mid LAD and left circumflex Congenitally absent RCA Ischemic cardiomyopathy, ejection fraction 45% Hypertension Hyperlipidemia Hypothyroidism with abnormal TSH and free T4 PLAN: Patient's heart rates this morning are in the 70s with no significant bradycardia Continue current cardiac medications No need to repeat echocardiogram as this was performed in May 2023 Continue telemetry monitoring Further recommendations pending patient course Nurse practitioner note has been reviewed by physician. Signing provider agrees with the documented findings, assessment, and plan of care documented by [employer] REPRESENTATIVE as a scribe. Past Medical History Past Medical History: Coronary Artery Disease (CAD), Cancer, COPD, CVA/TIA, Diab etes Mellitus, Deep Vein Thrombosis (DVT), Eye Disorder, GERD/Reflux, Hyperlipidemia, Hypertension, Myocardial Infarction (NM), Renal Disease, Rheumatoid Arthritis (RA), Syncope, Thyroid Disorder Additional Past Medical History / Comment(s): 09/16/16 with SBO with surgery/poss ible septic emboli with cavitary lesions bilateral lungs. Hx: left renal cell carcinoma with partial nephrectomy. 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 DVT left leg 7-8 yrs ago. hypothyroidism, chronic back pain, degenerative disks, hx UTI with sepsis secondary to ESBL producing E. coli 2015 requiring PICC line insertion for IV antibiotics. restless leg syndrome, peripheral neuropathy. Hx bilateral glaucoma, hx syncope r/t low blood sugars. No CPAP use. Last Myocardial Infarction Date:: 2019 History of Any Multi-Drug Resistant Organisms: ESBL, MRSA, VRE Date of last positivie culture/infection: 05/07/16 ESBL, 05/15/16 VRE, MRSA 09/2017 - upper lip MDRO Source:: URINE E.COLI, EC GALLINARUM Past Surgical History: Appendectomy, Bowel Resection, Section, Heart Catheterization, Heart Catheterization With Stent, Hernia Repair Additional Past Surgical History / Comment(s): 09/30 exploratory laparotomy with lysis of adhesions, bowel resection d/t obstruction. repair incarcerated incisional hernia with abdominal washout. thyroidectomy(non functioning). heart cath 06/28 - 100% occluded, unable to stent. partial left nephrectomy for left kidney renal cell carcinoma. colonoscopy, bilateral cataract removal with lens implants, 2 Sections. cardiac stent 03/2021 Past Anesthesia/Blood Transfusion Reactions: No Reported Reaction Date of Last Stent Placement:: 04/06/2021 Past Psychological History: Depression Smoking Status: Former smoker Past Alcohol Use History: None Reported Past Drug Use History: Marijuana - Past Family History Sister(s) Family Medical History: Cancer, Deep Vein Thrombosis (DVT) Additional Family Medical History / Comment(s): Patient has one sister that from liver cancer. Brother(s) Family Medical History: Cancer, Deep Vein Thrombosis (DVT) Additional Family Medical History / Comment(s): Patient has 1 brother with past ETOH, past drug abuse, DVTs. She has a second brother that has from throat cancer. Daughter(s) Family Medical History: Diabetes Mellitus, Myocardial Infarction (NM) Additional Family Medical History / Comment(s): Daughter at 23 yrs old from massive NM. Father Family Medical History: Myocardial Infarction (NM) Additional Family Medical History / Comment(s): from NM at age 44 Mother Family Medical History: Cancer Additional Family Medical History / Comment(s): B/L breast cancer Medications and Allergies Home Medications Medication Instructions Recorded Confirmed Type Venlafaxine HCl [Effexor XR] 225 mg PO DAILY 10/21/16 09/02/23 History Pantoprazole Sodium [Protonix] 40 mg PO BID 04/06/20 09/02/23 History Meclizine [Antivert] 25 mg PO TID PRN 01/16/21 09/02/23 History Ferrous Sulfate [Iron (65 MG 325 mg PO DAILY 10/02/21 09/02/23 History Elemental)] Cetirizine HCl [Zyrtec] 10 mg PO DAILY 07/15/22 09/02/23 History Cholecalciferol [Vitamin D3 (125 125 mcg PO TID 07/15/22 09/02/23 History Mcg = 5000 Iu)] Glucagon [Baqsimi] 1 spray NASAL DIRECTED PRN 07/15/22 09/02/23 History Ipratropium-Albuterol Nebulize 3 ml INHALATION RT-QID PRN 07/15/22 09/02/23 History [Duoneb 0.5 mg-3 mg/3 ml Soln] Levothyroxine Sodium [Synthroid] 50 mcg PO DAILY 07/15/22 09/02/23 History Levothyroxine Sodium [Synthroid] 200 mcg PO DAILY 07/15/22 09/02/23 History Magnesium Oxide [Mag-Ox] 400 mg PO DAILY 07/15/22 09/02/23 History Multivitamins, Thera [Multivitamin 1 tab PO DAILY 07/15/22 09/02/23 History (formulary)] Acetaminophen Tab [Tylenol] 650 mg PO Q6HR PRN tab 09/04/22 09/02/23 Rx Aspirin EC [Ecotrin Low Dose] 81 mg PO DAILY 10/03/22 09/02/23 History Butalb/APAP/Caff 50-325-40Mg 1 tab PO BID PRN 10/03/22 09/02/23 History [Fioricet 50-325-40] Loperamide [Imodium] 2 mg PO TID PRN #21 capsule 10/07/22 09/02/23 Rx Rosuvastatin Calcium [Crestor] 40 mg PO HS 01/05/23 09/02/23 History Metoclopramide HCl [Reglan] 5 mg PO TID PRN #30 tablet 01/07/23 09/02/23 Rx Ondansetron Odt [Zofran ODT] 4 mg PO Q8HR PRN #10 tab 01/07/23 09/02/23 Rx INSULIN LISPRO (For Pump) [humaLOG 0.01 units SQ-PUMP CONTINUOUS 04/10/23 09/02/23 History (For Pump)] Isosorbide Mononitrate ER [Imdur] 30 mg PO DAILY 04/10/23 09/02/23 History Mirtazapine 7.5 mg PO HS 04/10/23 09/02/23 History Diclofenac Sodium [Diclofenac 1 applic TOPICAL TID 08/02/23 09/02/23 History Sodium 1%] Gabapentin 600 mg PO TID 08/02/23 09/02/23 History cilostazoL [Pletal] 100 mg PO DIRECTED 08/02/23 09/02/23 History Losartan [Cozaar] 50 mg PO DAILY #60 tab 08/05/23 09/02/23 Rx Metoprolol Succinate (ER) [Toprol 25 mg PO DAILY #60 tab 08/05/23 09/02/23 Rx XL] HYDROcodone/APAP 5-325MG [[place] 1 tab PO Q6H PRN 09/02/23 09/02/23 History 5-325] Ibuprofen [Motrin] 600 mg PO TID PRN 09/02/23 09/02/23 History Allergies Allergy/AdvReac Type Severity Reaction Status Date / Time grass pollen Allergy Unknown Verified 09/02/23 19:04 latex Allergy Rash/Hives Verified 09/02/23 19:04 Sulfa (Sulfonamide Allergy Rash/Hives/ Verified 09/02/23 19:04 Antibiotics) Swelling venom-honey bee Allergy Anaphylaxis Verified 09/02/23 19:04 prochlorperazine edisylate AdvReac Vomiting Verified 09/02/23 19:04 [From Compazine] Physical Exam Vitals: Vital Signs Temp Pulse Pulse Resp BP BP Pulse Ox 09/03/23 07:53 95 09/03/23 04:00 97.8 F 73 21 95/62 97 09/03/23 00:00 97.7 F 72 74 19 118/72 130/75 99 09/02/23 20:30 56 L 12 116/66 96 09/02/23 20:00 61 11 L 121/61 97 09/02/23 19:30 56 L 12 116/59 97 09/02/23 19:00 52 L 10 L 129/62 98 09/02/23 18:42 96.6 F L 52 L 10 L 126/59 100 09/02/23 18:30 51 L 11 L 131/64 98 09/02/23 18:00 51 L 4 L 133/62 100 09/02/23 17:50 95.6 F L 50 L 6 L 108/54 97 09/02/23 17:30 50 L 10 L 122/68 99 09/02/23 17:04 50 L 8 L 107/67 09/02/23 16:30 6 L 09/02/23 16:17 65 18 154/70 98 Intake and Output 09/02/23 09/03/23 09/03/23 22:59 06:59 14:59 Output Total 750 Balance -750 Output: Urine 750 Other: Voiding Method Indwelling Catheter Weight 77.111 kg 77.111 kg Results 09/02/23 16:40 09/03/23 08:40 Cardiac Enzymes 09/02/23 09/02/23 Range/Units 16:40 16:40 AST 40 H (14-36) U/L Troponin I <0.012 (0.000-0.034) ng/mL Coagulation 09/02/23 Range/Units 16:40 PT 10.5 (10.0-12.5) sec APTT 22.3 (22.0-30.0) sec CBC 09/02/23 Range/Units 16:40 WBC 7.0 (3.8-10.6) k/uL RBC 4.05 (3.80-5.40) m/uL Hgb 11.7 (11.4-16.0) gm/dL Hct 38.1 (34.0-46.0) % Plt Count 236 (150-450) k/uL Comprehensive Metabolic Panel 09/02/23 Range/Units 16:40 Sodium 136 L (137-145) mmol/L Potassium 4.7 (3.5-5.1) mmol/L Chloride 103 (98-107) mmol/L Carbon Dioxide 27 (22-30) mmol/L BUN 35 H (7-17) mg/dL Creatinine 1.28 H (0.52-1.04) mg/dL Glucose 398 H (74-99) mg/dL Calcium 8.4 (8.4-10.2) mg/dL AST 40 H (14-36) U/L ALT 27 (4-34) U/L Alkaline Phosphatase 151 H (38-126) U/L Total Protein 6.4 (6.3-8.2) g/dL Albumin 3.7 (3.5-5.0) g/dL Current Medications Generic Name Dose Route Start Last Admin Trade Name Freq PRN Reason Stop Dose Admin Acetaminophen 650 mg 09/02/23 20:53 Acetaminophen Tab 325 Mg Tab PO Q6HR PRN Fever and/ or Pain Acetaminophen/Butalbital/Caffeine 1 each 09/02/23 20:53 Butalb/Apap/Caff 50-325-40mg Tab PO BID PRN Migraine Headache Albuterol/Ipratropium 3 ml 09/02/23 20:53 Ipratropium-Albuterol 3 Ml Neb INHALATION RT-QID PRN Shortness Of Breath Aspirin 81 mg 09/03/23 09:00 Aspirin 81 Mg PO DAILY DURGA Atorvastatin Calcium 80 mg 09/02/23 21:00 09/02/23 23:05 Atorvastatin 80 Mg Tab PO 80 mg HS DURGA Administration Cholecalciferol 125 mcg 09/02/23 22:00 09/02/23 23:05 Cholecalciferol 125 Mcg (5000 Iu) Tablet PO 125 mcg TID DURGA Administration Dextrose/Water 25 ml 09/03/23 07:12 Dextrose 50% Syringe 50 Ml IVP PER PROTOCOL PRN Hypoglycemia Protocol Dextrose/Water 50 ml 09/03/23 07:12 Dextrose 50% Syringe 50 Ml IVP PER PROTOCOL PRN Hypoglycemia Protocol Ferrous Sulfate 325 mg 09/03/23 09:00 Ferrous Sulfate 325 Mg Tab PO DAILY DUR[facility] Sodium Chloride 1,000 mls @ 75 mls/hr 09/02/23 20:00 09/02/23 23:06 Saline 0.9% IV 75 mls/hr .[id number] DURGA Administration Dextrose/Sodium Chloride 1,000 mls @ 20 mls/hr 09/02/23 20:15 Dextrose 5%-1/2ns Iv Soln IV .Q24H [facility] Insulin Aspart 10 unit 09/03/23 07:30 Insuln Asp Prt/Insulin Aspart 100 Unit/Ml 10 Ml Vial SQ AC-BID DUR[facility] Insulin Aspart 5 unit 09/03/23 07:30 Insulin Aspart (Novolog) 100 Unit/Ml Vial SQ AC-TID [facility] Insulin Aspart 0 unit 09/03/23 07:30 Insulin Aspart (Novolog) 100 Unit/Ml Vial SQ ACHS [facility] Protocol Isosorbide Mononitrate 30 mg 09/03/23 09:00 Isosorbide Mononitrate Er 30 Mg Tab.Er.24h PO DAILY [facility] Levothyroxine Sodium 100 mcg 09/03/23 09:00 Levothyroxine Ivp 100 Mcg/5 Ml Vial IV DAILY [facility] Linagliptin 5 mg 09/03/23 09:00 Linagliptin 5 Mg Tablet PO DAILY [facility] Loperamide HCl 2 mg 09/02/23 20:53 Loperamide 2 Mg Cap PO TID PRN Diarrhea Loratadine 10 mg 09/03/23 09:00 Loratadine 10 Mg Tab PO DAILY [facility] Losartan Potassium 50 mg 09/03/23 09:00 Losartan 50 Mg Tab PO DAILY [facility] Magnesium Oxide 400 mg 09/03/23 09:00 Magnesium Oxide 400 Mg Tab PO DAILY [facility] Methylprednisolone Sodium Succinate 60 mg 09/03/23 00:00 Methylprednisolone Sod Succi 125 Mg/2 Ml Vial IV Q6HR [facility] Metoclopramide HCl 5 mg 09/02/23 20:53 Metoclopramide 5 Mg Tab PO TID PRN Nausea Metoprolol Succinate 25 mg 09/03/23 09:00 Metoprolol Succinate (Er) 25 Mg Tab.Er.24h PO DAILY [facility] Mirtazapine 7.5 mg 09/02/23 21:00 09/02/23 23:04 Mirtazapine 15 Mg Tab PO 7.5 mg HS [facility] Administration Morphine Sulfate 4 mg 09/02/23 20:00 09/02/23 23:07 Morphine Sulfate 4 Mg/Ml Syringe IV 4 mg Q4HR PRN Administration Severe Pain (Scale 7 to 10) Multivitamins 1 each 09/03/23 09:00 Multivitamins, Thera 1 Each Tab PO DAILY [facility] Naloxone HCl 0.2 mg 09/02/23 20:00 Naloxone 0.4 Mg/Ml 1 Ml Vial IV Q2M PRN Opioid Reversal Ondansetron HCl 4 mg 09/02/23 20:00 Ondansetron 4 Mg/2 Ml Vial IVP Q8HR PRN Nausea And Vomiting Ondansetron HCl 4 mg 09/02/23 20:53 Ondansetron Odt 4 Mg Tab PO Q8HR PRN Nausea Pantoprazole Sodium 40 mg 09/02/23 21:00 09/02/23 23:06 Pantoprazole 40 Mg Tablet PO 40 mg AC-BID [facility] Administration Venlafaxine HCl 225 mg 09/03/23 09:00 Venlafaxine Hcl Er 75 Mg Cap PO DAILY [facility] Intake and Output 09/02/23 09/03/23 09/03/23 22:59 06:59 14:59 Output Total 750 Balance -750 Output: Urine 750 Other: Voiding Method Indwelling Catheter Weight 77.111 kg 77.111 kg 09/02/23 16:40 09/02/23 16:40
[2023-09-03 10:33] LABS: Glucose,Whole Blood 444 mg/dL (70-110)
[2023-09-03] MEDS: methylPREDNISolone SOD SUCCI 125 MG/2 ML VIAL IV SCH (11:00)
[2023-09-03] MEDS: DEXTROSE 5%-0.45% NACL 1,000 ML IV SCH ×2 (11:00→21:04)
[2023-09-03 11:05] LABS: Basophils % (A) 0 %; Eosinophils % (A) 0 %; HCT 34.6 % (34.0-46.0); HGB 11.3 gm/dL (11.4-16.0); Lymphocytes # (A) 1.2 k/uL (1.0-4.8); Lymphocytes % (A) 16 %; MCH 30.5 pg (25.0-35.0); MCHC 32.6 g/dL (31.0-37.0); MCV 93.4 fL (80.0-100.0); Mean Platelet Volume 9.3; Monocytes # (A) 0.2 k/uL (0-1.0); Monocytes % (A) 3 %; Neutrophils # (A) 5.8 k/uL (1.3-7.7); Neutrophils % (A) 79 %; Platelet Count 231 k/uL (150-450); RBC 3.71 m/uL (3.80-5.40); RDW 15.2 % (11.5-15.5); WBC 7.4 k/uL (3.8-10.6)
[2023-09-03] MEDS: INSULN ASP PRT/INSULIN ASPART 100 UNIT/ML 10 ML VIAL SQ SCH (11:29)
[2023-09-03] MEDS: LEVOTHYROXINE IVP 100 MCG/5 ML VIAL IV SCH (11:30)
[2023-09-03 12:42] LABS: Glucose,Whole Blood 544 mg/dL (70-110)
[2023-09-03 13:45] LABS: Glucose,Whole Blood 470 mg/dL (70-110)
[2023-09-03 15:18] LABS: Glucose,Whole Blood 322 mg/dL (70-110)
[2023-09-03 18:19] LABS: Glucose,Whole Blood 65 mg/dL (70-110)
[2023-09-03 19:15] LABS: Glucose,Whole Blood 63 mg/dL (70-110)
[2023-09-03 19:44] LABS: Glucose,Whole Blood 47 mg/dL (70-110)
[2023-09-03] MEDS: DEXTROSE 50% SYRINGE 50 ML IVP PRN (19:46)
[2023-09-03 20:38] LABS: Glucose,Whole Blood 158 mg/dL (70-110)
[2023-09-03 21:17] LABS: Glucose,Whole Blood 103 mg/dL (70-110)
[2023-09-03] MEDS: HYDROCORTISONE SUCCINATE 100 MG/2 ML VIAL IV STA (22:01)
[2023-09-03 22:13] LABS: Glucose,Whole Blood 84 mg/dL (70-110)
[2023-09-03] MEDS: LEVOTHYROXINE IVP 100 MCG/5 ML VIAL IV ONE (22:28)
[2023-09-03 23:02] LABS: Glucose,Whole Blood 104 mg/dL (70-110)
[2023-09-04 00:02] LABS: Glucose,Whole Blood 95 mg/dL (70-110)
[2023-09-04 01:12] LABS: Glucose,Whole Blood 126 mg/dL (70-110)
[2023-09-04 02:06] LABS: Glucose,Whole Blood 229 mg/dL (70-110)
[2023-09-04 04:05] LABS: Glucose,Whole Blood 411 mg/dL (70-110)
[2023-09-04] MEDS: FUROSEMIDE 10 MG/ML 2 ML VIAL IV ONE (04:53)
[2023-09-04] MEDS: INSULIN ASPART (NovoLOG) 100 UNIT/ML VIAL SQ ONE (04:53)
--- NOTE | 2023-09-04 05:25 | P.PN ---
Subjective Progress Note Date: 09/03/23 History of present illness: 63-year-old one of our office patient with history of insulin-dependent diabetes mellitus, coronary artery disease with 4 stents, severe chronic arthritis, chronic neuropathy, CVA/TIA, deep venous thrombosis, hypertension, hyperlipide mike, rheumatoid arthritis, recurrent infection with ESBL and MRSA, previous history of stent and recurrent UTI who was in the hospital last: 8 weeks ago with non-ST MT and hyponatremia with DKA was treated did well. She was admitted on 08/03/2023 for syncopal episode and questionable of TIA found to have severe hypoglycemia her troponin was negative for the time she had mild anemia slight decline in kidney function. Further testing including CT of the brain did not show any hemorrhage or abnormality but mild encephalomalacia of the right parietal lobe. Cardiology consultation along with pulmonary consultation failed to show any major abnormality with exception of the extended hypoglycemia she is going through repeatedly. Starting her back on her insulin pump continues to run slightly below and by the time she left the hospital she was supposed to go back to see her lead software qa engineer to talk about further management may be taking her off insulin pump completely and started back on short and long-acting insulin our the combined insulin 70/30 twice a day for better management and probably better chance of not running hypoglycemic as many times as she does currently. I am not quite sure what to make out of this more than probably the management and the confusion sugars through managing her insulin pump can be mostly the reason why her hypoglycemia happening more often and I would still highly recommend against going back on insulin pump. Difficult part of this again that patient will still insist to go back to her lead software qa engineer for managing her diabetes regardless with choice remain in the hospital will be left entirely up to her lead software qa engineer to have the final plan which is defeat the purpose of team planning since endocrinology are not taking care of her in the hospital or having to watch them any episode of hypoglycemia she goes through almost on a weekly basis. Patient brought by ambulance on for significant altered mental status and not responding well and time. Same time Found to have severe hypoglycemia initially blood sugar was running in the 30s and 40s had to discontinue her insulin pump and run patient on D5 IV to allow her to regain her conscious diet. Also patient found to be in slight acute kidney injury again after first couple hours trending slightly hyperglycemic which will continue for now she will reinitiate plan for Accu-Chek with sliding scale coverage with NovoLog and unwilling to start her back on either insulin 70/30 start may be at 10 or 15 units twice a day and titrate dose higher with patient cardiac disease she will benefit from being on SGLT2 product like Tradjenta or Jardiance. Which will be started in the morning. Will switch her D5 finally through KVO or normal saline for few hours before we take her off. Significant consult with diabetic management in the hospital as well. 09/03/2023: She is more awake and alert still drowsy still not acting right was seen and evaluated by cardiology no cardiac complaint at this point. One of the suggestion is to look into the hypothyroidism, patient was taking off insulin pump completely placed on insulin 70/[address] 8 to 10 units twice a day also placed on Accu-Chek with sliding scale coverage with 5 unit of NovoLog AC meals plus sliding scale. Continue to drop down to be hypoglycemic after taking her off hydrocortisone with the potential no reason to believe there is any adrenal suppression from what she had before we had to use another hydrocortisone dose 1 more time. With the blood sugar dropped down she was moved into D5.45 70 cc an hour for 3 this time and then the blood sugar become quite bit high the reaction she is having for the smaller dose of insulin is quite significant. Again not quite sure if there is any oral hypoglycemic agent she might have taking might create that the severity of hypoglycemia at this point her insulin level along with C-peptide and cortisol level will be checked also to exclude the possibility of insulinoma CT of the abdomen pain In the pancreatic area will be done to exclude any other possibility. If this is brought by oral hypoglycemic agent might take up to 72 hours to recover in the meanwhile will be on smaller dose of insulin to dialysis out without insulin pump at this point. Also continue to be little bit more aggressive on her thyroid replacement therapy she already had 100 mcg of levothyroxine IV we will do another 1 and then move 100 to 250 mcg of oral levothyroxine daily to correct any possibility of myxedema might be part of the picture at this point. REVIEW OF SYSTEMS: CONSTITUTIONAL: Well-developed no acute respiratory distress. Still little bit drowsy and sluggish. EYES: No icterus sclerae, no conjunctivitis. EARS, NOSE, MOUTH, THROAT, and FACE: No sore throat, lymphadenopathy, carotid bruits or deformity. RESPIRATORY: No SOB cough or wheezes. CARDIOVASCULAR: No CP, Palpitation, PND, Orthopnea, or angina. GASTROINTESTINAL: No Abd pain, Nausea or vomiting, no Diarrhea or constipation, No GI Bleed, no distention or masses. GENITOURINARY: Negative for Hematuria or UTI, no kidney stones. Mild incont inence. INTEGUMENT/BREAST: Generalized muscle and joint pain. HEMATOLOGIC/LYMPHATIC: Negative for bleed or purpura. MUSCULOSKELTAL: Myalgia and arthralgia with lower back pain. NEURLOGICAL: Positive loss of consciousness with no seizure activity no blurred vision positive dizziness no sign of stroke or mini stroke at this point. BEHAVIORAL/PSYCH: Negative. ENDOCRINE: Negative. PHYSICAL EXAMINATION: General Appearance: Alert, cooperative, no distress, looks older than her age does not look in any respiratory distress. Neck HEENT: Supple, no lymphadenopathy, no thyroid enlargement, no carotid bruits. Lungs: Clear to auscultation without crackles or wheezes no rhonchi, no deformity. Chest Wall: Normal expansion with slight tenderness, slightly at resuscitation. And no deformity was found on exam, no costochondral pain or discomfort. Heart: Regular rate and rhythm, S1, S2 normal, no murmur, rub or gallop. Back: Symmetric, no curvature, ROM normal, no CVA tenderness. Abdomen: Soft, non-tender, bowel sounds active all four quadrants, no masses, no organomegaly. Extremities: Extremities normal, atraumatic, no cyanosis or edema. Pulses: 2+ and symmetric. Skin: Skin color, texture, tugor normal, no rashes or lesions. Neurologic: Alert oriented x3 cranial nerves II through XII intact, no motor deficit, no abnormal balance or gait. ASSESSMENT AND PLAN: Altered mental status: Most likely from extended hypoglycemia not clear for how many hours so this might take little longer time to regain her conscious and mentation might take her to the morning in the meanwhile will discontinue her insulin pump and continue D5 and allow sugar to go a little bit up before starting longer-term insulin management. Severe hypoglycemia: Insulin pump was off and she is to continue on D5 given her blood sugar might be higher than expected but we will start her back on short and long-acting insulin in the morning along with SGLT2 product. _Severe hypothyroidism: Either from noncompliance to medication or failure to absorb, given possibility of myxedema is not that high but with the picture patient presents specially response is slow but the possibility except her free T4 is really not that low but will do another 100 mcg of levothyroxine IV and move her up to 250 mcg of levothyroxine orally daily. _Severe hypothermia: With central body temperature still low most likely from the extended time she had hypoglycemia, with the correction of her blood sugar her hypothermia is much better. Multiple coronary artery disease last angiogram was in June 06, 2023 with mild LAD mild circumflex completely blockage in the RCA. The patient will be on medical management only. Type 2 diabetes: She is still been managed by her lead software qa engineer on insulin pump which proven that probably this is not a good choice for patient because of the repeat episode of hypoglycemia most likely related to the mismanagement of her insulin pump highly advised against insulin pump at this point and when patient leaves the hospital this time letter be sent to her lead software qa engineer to continue and help to manage keeping her on short and long acting insulin twice a day along with bolus of her short acting insulin with NovoLog before each meal can be designed with either carbohydrate or the time of meals can be little bit better managed with continue glucose monitor especially if patient ended up seeing family living educator our her lead software qa engineer office on weekly basis for the next few weeks. Hypertension: Continue losartan 25 mg a day and metoprolol succinate 50 mg daily. Chronic diabetic neuropathy: Has been on gabapentin 600 mg 3 times a day. Will hold off on gabapentin for the next 24 hours. Hypothyroidism: Continue levothyroxine 250 mcg daily. Will continue medication. Hyperlipidemia: Remain on rosuvastatin 40 mg a day with LDL has been below 70. COPD: She is on her updraft treatment does not require any oxygen she is on steroids is inhaler as well. Chronic depression: Has been on Effexor XR 225 mcg daily along with mirtazapine 7.5 mg at bedtime. Gastroparesis with recurrent episode of nausea and vomiting has been on Zofran, Protonix and Reglan. Mild PAD has been on Pletal 100 mg twice a day. Chronic elevations anemia: Still on the iron supplement on regular basis with hemoglobin still running around 10. Planning: Continue to watch patient quite carefully at this point sadly there is no backup endocrinology consultation which would be very helpful at this point but will do some testing on her adrenal gland and pancreatic gland scan of the abdomen will be helpful also insulin level and C-peptide might help to differentiate with 3 insulinoma versus hypoglycemia brought by medication. Expectation of recovering from the severity of her hypoglycemia might take up to 72 hours which should be patient and little bit more conservative on her insulin despite the fact she might be hyperglycemic with a keep her above 200 for over 24 hours would be more helpful than having to be more aggressive with her diabetic management. Objective - Vital Signs Vital signs: Vital Signs Temp 97.8 F 09/03/23 04:00 Pulse 73 09/03/23 04:00 Resp 21 09/03/23 04:00 BP 95/62 09/03/23 04:00 Pulse Ox 97 09/03/23 04:00 FiO2 Intake & Output 09/02/23 09/02/23 09/03/23 06:59 18:59 06:59 Output Total 750 Balance -750 Weight 77.111 kg 77.111 kg Output: Urine 750 Other: Voiding Method Indwelling Catheter - Labs CBC & Chem 7: 09/03/23 08:40 09/03/23 08:40 Labs: Abnormal Lab Results - Last 24 Hours (Table) 09/02/23 09/02/23 09/02/23 Range/Units 16:21 16:33 16:40 MCHC 30.6 L (31.0-37.0) g/dL Sodium (137-145) mmol/L BUN (7-17) mg/dL Creatinine (0.52-1.04) mg/dL Glucose (74-99) mg/dL POC Glucose (mg/dL) 31 L 278 H (70-110) mg/dL AST (14-36) U/L Alkaline Phosphatase (38-126) U/L TSH (0.465-4.680) mIU/L Free T4 (0.78-2.19) ng/dL Urine Glucose (UA) (Negative) 09/02/23 09/02/23 09/02/23 Range/Units 16:40 16:40 17:49 MCHC (31.0-37.0) g/dL Sodium 136 L (137-145) mmol/L BUN 35 H (7-17) mg/dL Creatinine 1.28 H (0.52-1.04) mg/dL Glucose 398 H (74-99) mg/dL POC Glucose (mg/dL) 231 H (70-110) mg/dL AST 40 H (14-36) U/L Alkaline Phosphatase 151 H (38-126) U/L TSH 67.500 H (0.465-4.680) mIU/L Free T4 0.73 L (0.78-2.19) ng/dL Urine Glucose (UA) (Negative) 09/02/23 09/02/23 09/03/23 Range/Units 18:43 22:47 01:50 MCHC (31.0-37.0) g/dL Sodium (137-145) mmol/L BUN (7-17) mg/dL Creatinine (0.52-1.04) mg/dL Glucose (74-99) mg/dL POC Glucose (mg/dL) 388 H 450 H (70-110) mg/dL AST (14-36) U/L Alkaline Phosphatase (38-126) U/L TSH (0.465-4.680) mIU/L Free T4 (0.78-2.19) ng/dL Urine Glucose (UA) 3+ H (Negative) 09/03/23 09/03/23 Range/Units 03:49 06:10 MCHC (31.0-37.0) g/dL Sodium (137-145) mmol/L BUN (7-17) mg/dL Creatinine (0.52-1.04) mg/dL Glucose (74-99) mg/dL POC Glucose (mg/dL) 396 H 369 H (70-110) mg/dL AST (14-36) U/L Alkaline Phosphatase (38-126) U/L TSH (0.465-4.680) mIU/L Free T4 (0.78-2.19) ng/dL Urine Glucose (UA) (Negative)
[2023-09-04 06:03] LABS: Glucose,Whole Blood 458 mg/dL (70-110)
[2023-09-04] MEDS: LEVOTHYROXINE 125 MCG TAB PO SCH (06:38)
[2023-09-04] MEDS: INSULN ASP PRT/INSULIN ASPART 100 UNIT/ML 10 ML VIAL SQ SCH (06:38)
[2023-09-04 08:25] LABS: Glucose,Whole Blood 344 mg/dL (70-110)
[2023-09-04 08:58] LABS: African American GFR (CKD) 43 (>60 ml/min/1.73 sqM); Anion Gap 8 mmol/L; Blood Urea Nitrogen 41 mg/dL (7-17); Calcium 8.4 mg/dL (8.4-10.2); Carbon Dioxide 24 mmol/L (22-30); Chloride 103 mmol/L (98-107); Glucose 342 mg/dL (74-99); Non-African American GFR(CKD) 37 (>60 ml/min/1.73 sqM); Potassium 4.4 mmol/L (3.5-5.1); Sodium 135 mmol/L (137-145)
[2023-09-04 10:29] LABS: Glucose,Whole Blood 187 mg/dL (70-110)
[2023-09-04] MEDS: SODIUM CHLORIDE 0.9% 1,000 ML IV SCH (10:40)
[2023-09-04] MEDS: IOPAMIDOL CONTRAST (ORAL USE) VIAL PO PRN (11:11)
[2023-09-04 11:36] LABS: Glucose,Whole Blood 156 mg/dL (70-110)
[2023-09-04 11:56] LABS: C-Peptide 0.76 ng/mL (0.81-3.85)
--- NOTE | 2023-09-04 12:50 | CDI ---
Documentation Clarification Form Date: 09/04/2023 11:35:28 AM From: Karina Manzanares RN, CCDS Phone: [phone] Admit Date: 09/02/2023 08:00:00 PM Patient Name: Lala Kenyon Visit Number: [id number] Discharge Date: ATTENTION: The Clinical Documentation Specialists (CDI) and [facility] Coding Staff appreciate your assistance in clarifying documentation. Please respond to the clarification below the line at the bottom and electronically sign. The CDI & [facility] Coding staff will review the response and follow-up if needed. Please note: Queries are made part of the Legal Health Record. If you have any questions, please contact the author of this message via ITS. Dr. Gage Sy Your patient has the documented symptom of Altered Mental Status in the H/P and subsequent progress notes likely form extended hypoglycemia. Additional clarification regarding additional etiology/cause of this symptom is requested. History/Risk Factors: CAD, Cancer, COPD, CVA/TIA, Diabetes Mellitus, DVT, Hyperlipidemia, Hypertension, Renal Disease, Rheumatoid Arthritis, Thyroid Disorder Clinical Indicators: 63-year-old female with severe distress coming in with altered mental status found per EMS blood sugar running in the 30s and 40s had to discontinue her insulin pump and patient received D5 IV. Labs: Glucose 398, 322, 47, 104 X Ray: No acute cardiopulmonary disease/process CT Brain: No acute intracranial process. Remote right occipital/parietal lobe injury. Treatment: D5.45NS @20 ML/HR 09/01-09/12 Dextrose 50% syringe IVP Once 09/01 Please clarify the etiology of the symptom of Altered Mental Status: [xx ] Metabolic encephalopathy due to hypoglycemia and hyperglycemia [ ] Other condition (please specify) [ ] Unable to determine (Template Last Revised: July 2020) MTDD
--- NOTE | 2023-09-04 13:13 | P.PN ---
Subjective HISTORY OF PRESENT ILLNESS: This is a 63-year-old female with a past medical history significant for diabetes, ischemic cardiomyopathy, coronary artery disease, hyperlipidemia and hypothyroidism. Patient follows in the office with Dr. Sierra. We have been asked to see the patient in consultation for bradycardia. Patient examined at the bedside in the emergency room. Patient states she presented to the hospital due to generalized fatigue. She states that she was generally feeling unwell at home. She reports having some soreness in her foot which prompted her to come to the emergency room. She denies having any chest pain or pressure. She denies any shortness of breath. She denies having any fever or chills. She does report having a cough for the past few days. She states her blood sugar levels at home have been very labile. DIAGNOSTICS: - EKG reveals sinus bradycardia with T wave inversions in lead I, lead II, aVL, and V4V6 - Chest xray negative for acute process - Laboratory data: WBC 7.0. Hemoglobin 11.7. Platelet count 236. Sodium 139. Potassium 5.1. BUN 36. Creatinine 1.19. Blood sugar 322. Lactic acid 1.4. Troponin negative x 1. proBNP 821. TSH 67.5. Free T40.73. - Current home cardiac medications include aspirin 81 mg daily, Imdur 30 mg daily, losartan 50 mg daily, metoprolol succinate 25 mg daily, rosuvastatin 40 mg at night, and Pletal 100 mg as directed. - Most recent echocardiogram obtained in May 2023 revealed ejection fraction 45 to 50%, apex hypokinetic, apical septum and apical inferior moya are hypokinetic, mild MR, mild TR - Cardiac catheterization history: May [address] Mcghee revealing moderate disease in the mid LAD, moderate disease in the left circumflex, and absent RCA based on prior cath due to congenital abnormality 09/04/2023 Patient examined this morning at the bedside. Patient denies chest pain or pressure. She denies shortness of breath. Patient has had no episodes of bradycardia overnight or today. Her blood sugars continue to be labile. PHYSICAL EXAM: VITAL SIGNS: Reviewed. GENERAL: Well-developed in no acute distress. HEENT: Head is normocephalic. Pupils are equal, round. Sclerae anicteric. Mucous membranes of the mouth are moist. Neck supple. No JVD or thyromegaly LUNGS: Respirations even and unlabored. Lungs essentially clear to auscultation bilaterally. HEART: Regular rate and rhythm. S1 and S2 heard. ABDOMEN: Soft. Nondistended. Nontender. EXTREMITIES: Normal range of motion. No clubbing or cyanosis. Peripheral pulses intact. No lower extremity edema NEUROLOGIC: Awake and alert. Oriented x 3. ASSESSMENT: Generalized weakness and malaise Diabetes with labile blood sugars Asymptomatic sinus bradycardia, resolved Coronary artery disease with moderate disease of the mid LAD and left circumflex Congenitally absent RCA Ischemic cardiomyopathy, ejection fraction 45% Hypertension Hyperlipidemia Hypothyroidism with abnormal TSH and free T4 PLAN: Patient's heart rates this morning are in the 70s with no significant br adycardia Continue current cardiac medications No need to repeat echocardiogram as this was performed in May 2023 Continue telemetry monitoring No further inpatient recommendations from a cardiac standpoint We will sign off. Please reconsult if needed. Nurse practitioner note has been reviewed by physician. Signing provider agrees with the documented findings, assessment, and plan of care documented by MANAGER [employer] as a scribe. Objective - Vital Signs Vital signs: Vital Signs Temp 97.8 F 09/04/23 11:13 Pulse 68 09/04/23 11:13 Resp 16 09/04/23 11:13 BP 100/65 09/04/23 11:13 Pulse Ox 99 09/04/23 11:13 FiO2 Intake & Output 09/03/23 09/04/23 09/04/23 18:59 06:59 18:59 Intake Total 960 Output Total 800 Balance 960 -800 Intake: Oral 960 Output: Urine 800 Other: Voiding Method Indwelling Catheter Indwelling Catheter Indwelling Catheter - Labs CBC & Chem 7: 09/03/23 08:40 09/04/23 08:16 Labs: Abnormal Lab Results - Last 24 Hours (Table) 09/03/23 09/03/23 09/03/23 Range/Units 08:40 13:43 15:16 Sodium (137-145) mmol/L BUN (7-17) mg/dL Creatinine (0.52-1.04) mg/dL Glucose (74-99) mg/dL POC Glucose (mg/dL) 470 H 322 H (70-110) mg/dL Hemoglobin A1c 10.2 H (<=6.0) % C-Peptide (0.81-3.85) ng/mL Cortisol (3.1-22.4) UG/DL 09/03/23 09/03/23 09/03/23 Range/Units 18:06 19:08 19:40 Sodium (137-145) mmol/L BUN (7-17) mg/dL Creatinine (0.52-1.04) mg/dL Glucose (74-99) mg/dL POC Glucose (mg/dL) 65 L 63 L 47 L (70-110) mg/dL Hemoglobin A1c (<=6.0) % C-Peptide (0.81-3.85) ng/mL Cortisol (3.1-22.4) UG/DL 09/03/23 09/04/23 09/04/23 Range/Units 20:06 01:01 02:03 Sodium (137-145) mmol/L BUN (7-17) mg/dL Creatinine (0.52-1.04) mg/dL Glucose (74-99) mg/dL POC Glucose (mg/dL) 158 H 126 H 229 H (70-110) mg/dL Hemoglobin A1c (<=6.0) % C-Peptide (0.81-3.85) ng/mL Cortisol (3.1-22.4) UG/DL 09/04/23 09/04/23 09/04/23 Range/Units 04:01 06:00 08:16 Sodium (137-145) mmol/L BUN (7-17) mg/dL Creatinine (0.52-1.04) mg/dL Glucose (74-99) mg/dL POC Glucose (mg/dL) 411 H 458 H (70-110) mg/dL Hemoglobin A1c 10.4 H (<=6.0) % C-Peptide (0.81-3.85) ng/mL Cortisol (3.1-22.4) UG/DL 09/04/23 09/04/23 09/04/23 Range/Units 08:16 08:24 10:27 Sodium 135 L (137-145) mmol/L BUN 41 H (7-17) mg/dL Creatinine 1.50 H (0.52-1.04) mg/dL Glucose 342 H (74-99) mg/dL POC Glucose (mg/dL) 344 H 187 H (70-110) mg/dL Hemoglobin A1c (<=6.0) % C-Peptide 0.76 L (0.81-3.85) ng/mL Cortisol 24.7 H (3.1-22.4) UG/DL 09/04/23 Range/Units 11:34 Sodium (137-145) mmol/L BUN (7-17) mg/dL Creatinine (0.52-1.04) mg/dL Glucose (74-99) mg/dL POC Glucose (mg/dL) 156 H (70-110) mg/dL Hemoglobin A1c (<=6.0) % C-Peptide (0.81-3.85) ng/mL Cortisol (3.1-22.4) UG/DL
--- NOTE | 2023-09-04 15:10 | CT ---
EXAMINATION TYPE: CT abdomen pelvis wo con CT DLP: 568.5 mGycm, Automated exposure control for dose reduction was used. DATE OF EXAM: 09/04/2023 1:09 PM COMPARISON: CT 05/18/2023 CLINICAL INDICATION:Female, 63 years old with history of Insulinoma; Insulinoma TECHNIQUE: Axial CT abdomen pelvis wo con;Sagittal and coronal reformats were created on a separate workstation. Contrast used: mL of , (none if empty) Oral contrast used: with Oral Contrast (none if empty) FINDINGS: LOWER CHEST: Trace bilateral pleural effusions. The heart is mildly enlarged for size. There is coron wendy artery calcifications and myometrium calcification noted. ABDOMEN LIVER: Unremarkable GALLBLADDER AND BILE DUCTS: Pneumobilia. The gallbladder is not definitively visualized. PANCREAS: No evidence for mass. The pancreatic parenchyma is atrophic. SPLEEN: Unremarkable. ADRENAL GLANDS: Unremarkable. KIDNEYS AND URETERS: Atrophic left kidney with left obstructing calculus measuring 9 mm. Indeterminat e left renal cyst measuring 45 Hounsfield units and up to 21 mm. No evidence of hydronephrosis or donya al calculus. The ureters are unremarkable. PELVIS BLADDER: Nondistended with Mccann catheter in place. REPRODUCTIVE: Unremarkable. ABDOMEN & PELVIS STOMACH AND BOWEL: No evidence of bowel obstruction. Moderate amount of stool throughout the colon. G as is seen throughout the small bowel. Scattered colonic diverticula are present. PERITONEUM/RETROPERITONEUM: No evidence of pneumoperitoneum or free fluid. VASCULATURE: No evidence of aortic aneurysm. Moderate to severe atherosclerosis of the arterial vascu lature MUSCULOSKELETAL: No acute osseous abnormalities, severe degeneration changes of the spine with chroni c deformity to the L3 vertebrae. There is grade 1/grade 2 anterolisthesis of L5 on S1. LYMPH NODES: No gross evidence for lymphadenopathy. SOFT TISSUE/ABDOMINAL WALL: Unremarkable IMPRESSION: Limited evaluation for mass given no contrast. No obvious mass on this noncontrast exam.
[2023-09-04 15:29] LABS: Glucose,Whole Blood 283 mg/dL (70-110)
[2023-09-04 15:44] VITALS: BMI 27.4
[2023-09-04 16:35] LABS: Glucose,Whole Blood 246 mg/dL (70-110)
[2023-09-04 20:45] LABS: Glucose,Whole Blood 119 mg/dL (70-110)
--- NOTE | 2023-09-04 23:01 | P.PN ---
Subjective Progress Note Date: 09/04/23 History of present illness: 63-year-old one of our office patient with history of insulin-dependent diabetes mellitus, coronary artery disease with 4 stents, severe chronic arthritis, chronic neuropathy, CVA/TIA, deep venous thrombosis, hypertension, hyperlipide mike, rheumatoid arthritis, recurrent infection with ESBL and MRSA, previous history of stent and recurrent UTI who was in the hospital last: 8 weeks ago with non-ST TX and hyponatremia with DKA was treated did well. She was admitted on 08/03/2023 for syncopal episode and questionable of TIA found to have severe hypoglycemia her troponin was negative for the time she had mild anemia slight decline in kidney function. Further testing including CT of the brain did not show any hemorrhage or abnormality but mild encephalomalacia of the right parietal lobe. Cardiology consultation along with pulmonary consultation failed to show any major abnormality with exception of the extended hypoglycemia she is going through repeatedly. Starting her back on her insulin pump continues to run slightly below and by the time she left the hospital she was supposed to go back to see her roustabout pusher to talk about further management may be taking her off insulin pump completely and started back on short and long-acting insulin our the combined insulin 70/30 twice a day for better management and probably better chance of not running hypoglycemic as many times as she does currently. I am not quite sure what to make out of this more than probably the management and the confusion sugars through managing her insulin pump can be mostly the reason why her hypoglycemia happening more often and I would still highly recommend against going back on insulin pump. Difficult part of this again that patient will still insist to go back to her roustabout pusher for managing her diabetes regardless with choice remain in the hospital will be left entirely up to her roustabout pusher to have the final plan which is defeat the purpose of team planning since endocrinology are not taking care of her in the hospital or having to watch them any episode of hypoglycemia she goes through almost on a weekly basis. Patient brought by ambulance on for significant altered mental status and not responding well and time. Same time Found to have severe hypoglycemia initially blood sugar was running in the 30s and 40s had to discontinue her insulin pump and run patient on D5 IV to allow her to regain her conscious diet. Also patient found to be in slight acute kidney injury again after first couple hours trending slightly hyperglycemic which will continue for now she will reinitiate plan for Accu-Chek with sliding scale coverage with NovoLog and unwilling to start her back on either insulin 70/30 start may be at 10 or 15 units twice a day and titrate dose higher with patient cardiac disease she will benefit from being on SGLT2 product like Tradjenta or Jardiance. Which will be started in the morning. Will switch her D5 finally through KVO or normal saline for few hours before we take her off. Significant consult with diabetic management in the hospital as well. 09/03/2023: She is more awake and alert still drowsy still not acting right was seen and evaluated by cardiology no cardiac complaint at this point. One of the suggestion is to look into the hypothyroidism, patient was taking off insulin pump completely placed on insulin 70/[address] 8 to 10 units twice a day also placed on Accu-Chek with sliding scale coverage with 5 unit of NovoLog AC meals plus sliding scale. Continue to drop down to be hypoglycemic after taking her off hydrocortisone with the potential no reason to believe there is any adrenal suppression from what she had before we had to use another hydrocortisone dose 1 more time. With the blood sugar dropped down she was moved into D5.45 70 cc an hour for 3 this time and then the blood sugar become quite bit high the reaction she is having for the smaller dose of insulin is quite significant. Again not quite sure if there is any oral hypoglycemic agent she might have taking might create that the severity of hypoglycemia at this point her insulin level along with C-peptide and cortisol level will be checked also to exclude the possibility of insulinoma CT of the abdomen pain In the pancreatic area will be done to exclude any other possibility. If this is brought by oral hypoglycemic agent might take up to 72 hours to recover in the meanwhile will be on smaller dose of insulin to dialysis out without insulin pump at this point. Also continue to be little bit more aggressive on her thyroid replacement therapy she already had 100 mcg of levothyroxine IV we will do another 1 and then move 100 to 250 mcg of oral levothyroxine daily to correct any possibility of myxedema might be part of the picture at this point. 09/04/2023: She is doing slightly better treated aggressively with further hydrocortisone along with IV levothyroxine insulin pump has been off for over 24 hours blood sugar has been slightly better at this point request some insulin and C-peptide level today to see the value if this is medication related or patient has any insulinoma result for so far support the idea that patient pro beard had more reaction to medication. She had a few reading of the 200 clinical afternoon when numbers dropped finally to be in the 100 level the combination of Novolin 70/30 and NovoLog 3 to 5 units AC meals seems to work a lot better. As an outpatient already making plan for to have patient seen model builder display on weekly basis and have her go back to see her roustabout pusher early next week. Continue supportive care after the CAT scan done the patient diet and mobility will improve gradually and prepare hopefully for discharge sometime soon. One of the good option if agreed by patient is to host her probably in one of the SNF center for few days for better monitoring and management of her blood sugar even as an outpatient. REVIEW OF SYSTEMS: CONSTITUTIONAL: Well-developed no acute respiratory distress. Still little bit drowsy and sluggish. EYES: No icterus sclerae, no conjunctivitis. EARS, NOSE, MOUTH, THROAT, and FACE: No sore throat, lymphadenopathy, carotid bruits or deformity. RESPIRATORY: No SOB cough or wheezes. CARDIOVASCULAR: No CP, Palpitation, PND, Orthopnea, or angina. GASTROINTESTINAL: No Abd pain, Nausea or vomiting, no Diarrhea or constipation, No GI Bleed, no distention or masses. GENITOURINARY: Negative for Hematuria or UTI, no kidney stones. Mild incontinence. INTEGUMENT/BREAST: Generalized muscle and joint pain. HEMATOLOGIC/LYMPHATIC: Negative for bleed or purpura. MUSCULOSKELTAL: Myalgia and arthralgia with lower back pain. NEURLOGICAL: Positive loss of consciousness with no seizure activity no blurred vision positive dizziness no sign of stroke or mini stroke at this point. BEHAVIORAL/PSYCH: Negative. ENDOCRINE: Negative. PHYSICAL EXAMINATION: General Appearance: Alert, cooperative, no distress, looks older than her age does not look in any respiratory distress. Neck HEENT: Supple, no lymphadenopathy, no thyroid enlargement, no carotid bruits. Lungs: Clear to auscultation without crackles or wheezes no rhonchi, no deformity. Chest Wall: Normal expansion with slight tenderness, slightly at resuscitation. And no deformity was found on exam, no costochondral pain or discomfort. Heart: Regular rate and rhythm, S1, S2 normal, no murmur, rub or gallop. Back: Symmetric, no curvature, ROM normal, no CVA tenderness. Abdomen: Soft, non-tender, bowel sounds active all four quadrants, no masses, no organomegaly. Extremities: Extremities normal, atraumatic, no cyanosis or edema. Pulses: 2+ and symmetric. Skin: Skin color, texture, tugor normal, no rashes or lesions. Neurologic: Alert oriented x3 cranial nerves II through XII intact, no motor deficit, no abnormal balance or gait. ASSESSMENT AND PLAN: Altered mental status: Most likely from extended hypoglycemia not clear for how many hours so this might take little longer time to regain her conscious and mentation might take her to the morning in the meanwhile will discontinue her insulin pump and continue D5 and allow sugar to go a little bit up before starting longer-term insulin management. Severe hypoglycemia: Insulin levels along with C-peptide level will be done also patient will be going for CAT scan of the abdomen and pelvis with special attention to the pancreas to see if you have any sign of insulinoma. _Severe hypothyroidism: Either from noncompliance to medication or failure to absorb, given possibility of myxedema is not that high but with the picture patient presents specially response is slow but the possibility except her free T4 is really not that low but will do another 100 mcg of levothyroxine IV and move her up to 250 mcg of levothyroxine orally daily. _Severe hypothermia: With central body temperature still low most likely from the extended time she had hypoglycemia, with the correction of her blood sugar her hypothermia is much better. Multiple coronary artery disease last angiogram was in June 06, 2023 with mild LAD mild circumflex completely blockage in the RCA. The patient will be on medical management only. Type 2 diabetes: This would seem more obvious that patient is not able to manage her insulin pump and has been having multi episode of hypoglycemia related to convincing evidence at this point that patient need quick and repeat follow-up as an outpatient if end up doing to short and long-acting insulin shot today along with short acting insulin before each meals patient might have better management of the blood sugar. Also is one of the option to add SGLT2 product for better improvement on the long run. Hypertension: Continue losartan 25 mg a day and metoprolol succinate 50 mg daily. Chronic diabetic neuropathy: Has been on gabapentin 600 mg 3 times a day. Will hold off on gabapentin for the next 24 hours. Hypothyroidism: Continue levothyroxine 250 mcg daily. Will continue medication. Hyperlipidemia: Remain on rosuvastatin 40 mg a day with LDL has been below 70. COPD: She is on her updraft treatment does not require any oxygen she is on steroids is inhaler as well. Chronic depression: Has been on Effexor XR 225 mcg daily along with mirtazapine 7.5 mg at bedtime. Gastroparesis with recurrent episode of nausea and vomiting has been on Zofran, Protonix and Reglan. Mild PAD has been on Pletal 100 mg twice a day. Chronic elevations anemia: Still on the iron supplement on regular basis with hemoglobin still running around 10. Planning: Awaiting for the final report today patient mobility will increase along with her diet continue to train her for insulin will consult social insurance analyst to see if patient will benefit from going to SNF otherwise if she is more stable and no further hypoglycemia and all testing are done might be able to send patient home in the next 24 to 48 hours. Objective - Vital Signs Vital signs: Vital Signs Temp 97.9 F 09/04/23 00:00 Pulse 75 09/04/23 04:00 Resp 12 09/04/23 04:00 BP 121/64 09/04/23 04:00 Pulse Ox 95 09/04/23 04:00 FiO2 Intake & Output 09/03/23 09/03/23 09/04/23 06:59 18:59 06:59 Intake Total 960 Output Total 750 800 Balance -750 960 -800 Weight 77.111 kg Intake: Oral 960 Output: Urine 750 800 Other: Voiding Method Indwelling Catheter Indwelling Catheter Indwelling Catheter - Labs CBC & Chem 7: 09/03/23 08:40 09/04/23 08:16 Labs: Abnormal Lab Results - Last 24 Hours (Table) 09/03/23 09/03/23 09/03/23 Range/Units 06:10 08:10 08:40 RBC (3.80-5.40) m/uL Hgb (11.4-16.0) gm/dL BUN 36 H (7-17) mg/dL Creatinine 1.19 H (0.52-1.04) mg/dL Glucose 323 H (74-99) mg/dL POC Glucose (mg/dL) 369 H 322 H (70-110) mg/dL Hemoglobin A1c (<=6.0) % Phosphorus 4.8 H (2.5-4.5) mg/dL Alkaline Phosphatase 149 H (38-126) U/L Total Protein 5.8 L (6.3-8.2) g/dL Albumin 3.2 L (3.5-5.0) g/dL 09/03/23 09/03/23 09/03/23 Range/Units 08:40 08:40 10:31 RBC 3.71 L (3.80-5.40) m/uL Hgb 11.3 L (11.4-16.0) gm/dL BUN (7-17) mg/dL Creatinine (0.52-1.04) mg/dL Glucose (74-99) mg/dL POC Glucose (mg/dL) 444 H (70-110) mg/dL Hemoglobin A1c 10.2 H (<=6.0) % Phosphorus (2.5-4.5) mg/dL Alkaline Phosphatase (38-126) U/L Total Protein (6.3-8.2) g/dL Albumin (3.5-5.0) g/dL 09/03/23 09/03/23 09/03/23 Range/Units 12:41 13:43 15:16 RBC (3.80-5.40) m/uL Hgb (11.4-16.0) gm/dL BUN (7-17) mg/dL Creatinine (0.52-1.04) mg/dL Glucose (74-99) mg/dL POC Glucose (mg/dL) 544 H 470 H 322 H (70-110) mg/dL Hemoglobin A1c (<=6.0) % Phosphorus (2.5-4.5) mg/dL Alkaline Phosphatase (38-126) U/L Total Protein (6.3-8.2) g/dL Albumin (3.5-5.0) g/dL 09/03/23 09/03/23 09/03/23 Range/Units 18:06 19:08 19:40 RBC (3.80-5.40) m/uL Hgb (11.4-16.0) gm/dL BUN (7-17) mg/dL Creatinine (0.52-1.04) mg/dL Glucose (74-99) mg/dL POC Glucose (mg/dL) 65 L 63 L 47 L (70-110) mg/dL Hemoglobin A1c (<=6.0) % Phosphorus (2.5-4.5) mg/dL Alkaline Phosphatase (38-126) U/L Total Protein (6.3-8.2) g/dL Albumin (3.5-5.0) g/dL 09/03/23 09/04/23 09/04/23 Range/Units 20:06 01:01 02:03 RBC (3.80-5.40) m/uL Hgb (11.4-16.0) gm/dL BUN (7-17) mg/dL Creatinine (0.52-1.04) mg/dL Glucose (74-99) mg/dL POC Glucose (mg/dL) 158 H 126 H 229 H (70-110) mg/dL Hemoglobin A1c (<=6.0) % Phosphorus (2.5-4.5) mg/dL Alkaline Phosphatase (38-126) U/L Total Protein (6.3-8.2) g/dL Albumin (3.5-5.0) g/dL 09/04/23 Range/Units 04:01 RBC (3.80-5.40) m/uL Hgb (11.4-16.0) gm/dL BUN (7-17) mg/dL Creatinine (0.52-1.04) mg/dL Glucose (74-99) mg/dL POC Glucose (mg/dL) 411 H (70-110) mg/dL Hemoglobin A1c (<=6.0) % Phosphorus (2.5-4.5) mg/dL Alkaline Phosphatase (38-126) U/L Total Protein (6.3-8.2) g/dL Albumin (3.5-5.0) g/dL
[2023-09-05 02:08] LABS: Glucose,Whole Blood 113 mg/dL (70-110)
[2023-09-05 06:19] LABS: Glucose,Whole Blood 254 mg/dL (70-110)
[2023-09-05 11:36] LABS: Glucose,Whole Blood 168 mg/dL (70-110)
[2023-09-05 16:24] LABS: Glucose,Whole Blood 154 mg/dL (70-110)
[2023-09-05 19:57] LABS: Glucose,Whole Blood 280 mg/dL (70-110)
[2023-09-06 02:01] LABS: Glucose,Whole Blood 139 mg/dL (70-110)
[2023-09-06 04:36] VITALS: RESP 16; TEMP 98.1
[2023-09-06 05:57] LABS: Glucose,Whole Blood 273 mg/dL (70-110)
[2023-09-06] MEDS: ACETAMINOPHEN TAB 325 MG TAB PO PRN (08:07)
--- NOTE | 2023-09-06 08:29 | P.PN ---
Subjective Progress Note Date: 09/05/23 History of present illness: 63-year-old one of our office patient with history of insulin-dependent diabetes mellitus, coronary artery disease with 4 stents, severe chronic arthritis, chronic neuropathy, CVA/TIA, deep venous thrombosis, hypertension, hyperlipide mike, rheumatoid arthritis, recurrent infection with ESBL and MRSA, previous history of stent and recurrent UTI who was in the hospital last: 8 weeks ago with non-ST KS and hyponatremia with DKA was treated did well. She was admitted on 08/03/2023 for syncopal episode and questionable of TIA found to have severe hypoglycemia her troponin was negative for the time she had mild anemia slight decline in kidney function. Further testing including CT of the brain did not show any hemorrhage or abnormality but mild encephalomalacia of the right parietal lobe. Cardiology consultation along with pulmonary consultation failed to show any major abnormality with exception of the extended hypoglycemia she is going through repeatedly. Starting her back on her insulin pump continues to run slightly below and by the time she left the hospital she was supposed to go back to see her him analyst to talk about further management may be taking her off insulin pump completely and started back on short and long-acting insulin our the combined insulin 70/30 twice a day for better management and probably better chance of not running hypoglycemic as many times as she does currently. I am not quite sure what to make out of this more than probably the management and the confusion sugars through managing her insulin pump can be mostly the reason why her hypoglycemia happening more often and I would still highly recommend against going back on insulin pump. Difficult part of this again that patient will still insist to go back to her him analyst for managing her diabetes regardless with choice remain in the hospital will be left entirely up to her him analyst to have the final plan which is defeat the purpose of team planning since endocrinology are not taking care of her in the hospital or having to watch them any episode of hypoglycemia she goes through almost on a weekly basis. Patient brought by ambulance on for significant altered mental status and not responding well and time. Same time Found to have severe hypoglycemia initially blood sugar was running in the 30s and 40s had to discontinue her insulin pump and run patient on D5 IV to allow her to regain her conscious diet. Also patient found to be in slight acute kidney injury again after first couple hours trending slightly hyperglycemic which will continue for now she will reinitiate plan for Accu-Chek with sliding scale coverage with NovoLog and unwilling to start her back on either insulin 70/30 start may be at 10 or 15 units twice a day and titrate dose higher with patient cardiac disease she will benefit from being on SGLT2 product like Tradjenta or Jardiance. Which will be started in the morning. Will switch her D5 finally through KVO or normal saline for few hours before we take her off. Significant consult with diabetic management in the hospital as well. 09/03/2023: She is more awake and alert still drowsy still not acting right was seen and evaluated by cardiology no cardiac complaint at this point. One of the suggestion is to look into the hypothyroidism, patient was taking off insulin pump completely placed on insulin 70/[address] 8 to 10 units twice a day also placed on Accu-Chek with sliding scale coverage with 5 unit of NovoLog AC meals plus sliding scale. Continue to drop down to be hypoglycemic after taking her off hydrocortisone with the potential no reason to believe there is any adrenal suppression from what she had before we had to use another hydrocortisone dose 1 more time. With the blood sugar dropped down she was moved into D5.45 70 cc an hour for 3 this time and then the blood sugar become quite bit high the reaction she is having for the smaller dose of insulin is quite significant. Again not quite sure if there is any oral hypoglycemic agent she might have taking might create that the severity of hypoglycemia at this point her insulin level along with C-peptide and cortisol level will be checked also to exclude the possibility of insulinoma CT of the abdomen pain In the pancreatic area will be done to exclude any other possibility. If this is brought by oral hypoglycemic agent might take up to 72 hours to recover in the meanwhile will be on smaller dose of insulin to dialysis out without insulin pump at this point. Also continue to be little bit more aggressive on her thyroid replacement therapy she already had 100 mcg of levothyroxine IV we will do another 1 and then move 100 to 250 mcg of oral levothyroxine daily to correct any possibility of myxedema might be part of the picture at this point. 09/04/2023: She is doing slightly better treated aggressively with further hydrocortisone along with IV levothyroxine insulin pump has been off for over 24 hours blood sugar has been slightly better at this point request some insulin and C-peptide level today to see the value if this is medication related or patient has any insulinoma result for so far support the idea that patient pro beard had more reaction to medication. She had a few reading of the 200 clinical afternoon when numbers dropped finally to be in the 100 level the combination of Novolin 70/30 and NovoLog 3 to 5 units AC meals seems to work a lot better. As an outpatient already making plan for to have patient seen extension educator on weekly basis and have her go back to see her him analyst early next week. Continue supportive care after the CAT scan done the patient diet and mobility will improve gradually and prepare hopefully for discharge sometime soon. One of the good option if agreed by patient is to host her probably in one of the SNF center for few days for better monitoring and management of her blood sugar even as an outpatient. 09/04/2023, patient is feeling slightly better, blood sugar has improved significantly on the long and the short acting insulin along with a bolus before meals. Patient is not having any further hypoglycemia, testing currently failed to show any major abnormalities so this is still reaction probably to the management of her insulin pump. Patient Mccann catheter was removed and she could not void for long period of time and then was able to void make in a day point patient is extremely weak and fatigued could not move and had a quite bit difficult time making judgment whether wants to go to SNF or go home. Will delay her discharge till tomorrow continue to watch patient for an extra night. REVIEW OF SYSTEMS: CONSTITUTIONAL: Well-developed no acute respiratory distress. Still little bit drowsy and sluggish. EYES: No icterus sclerae, no conjunctivitis. EARS, NOSE, MOUTH, THROAT, and FACE: No sore throat, lymphadenopathy, carotid bruits or deformity. RESPIRATORY: No SOB cough or wheezes. CARDIOVASCULAR: No CP, Palpitation, PND, Orthopnea, or angina. GASTROINTESTINAL: No Abd pain, Nausea or vomiting, no Diarrhea or constipation, No GI Bleed, no distention or masses. GENITOURINARY: Negative for Hematuria or UTI, no kidney stones. Mild incontinence. INTEGUMENT/BREAST: Generalized muscle and joint pain. HEMATOLOGIC/LYMPHATIC: Negative for bleed or purpura. MUSCULOSKELTAL: Myalgia and arthralgia with lower back pain. NEURLOGICAL: Positive loss of consciousness with no seizure activity no blurred vision positive dizziness no sign of stroke or mini stroke at this point. BEHAVIORAL/PSYCH: Negative. ENDOCRINE: Negative. PHYSICAL EXAMINATION: General Appearance: Alert, cooperative, no distress, looks older than her age does not look in any respiratory distress. Neck HEENT: Supple, no lymphadenopathy, no thyroid enlargement, no carotid bruits. Lungs: Clear to auscultation without crackles or wheezes no rhonchi, no deformity. Chest Wall: Normal expansion with slight tenderness, slightly at resuscitation. And no deformity was found on exam, no costochondral pain or discomfort. Heart: Regular rate and rhythm, S1, S2 normal, no murmur, rub or gallop. Back: Symmetric, no curvature, ROM normal, no CVA tenderness. Abdomen: Soft, non-tender, bowel sounds active all four quadrants, no masses, no organomegaly. Extremities: Extremities normal, atraumatic, no cyanosis or edema. Pulses: 2+ and symmetric. Skin: Skin color, texture, tugor normal, no rashes or lesions. Neurologic: Alert oriented x3 cranial nerves II through XII intact, no motor deficit, no abnormal balance or gait. ASSESSMENT AND PLAN: Altered mental status: Most likely from extended hypoglycemia not clear for how many hours so this might take little longer time to regain her conscious and mentation might take her to the morning in the meanwhile will discontinue her insulin pump and continue D5 and allow sugar to go a little bit up before starting longer-term insulin management. Severe hypoglycemia: Has improved currently with no major finding with her testing. _Severe hypothyroidism: When coming to the hospital this was probably more like myxedema and continue 250 mcg of levothyroxine will be helpful. _Severe hypothermia: With central body temperature still low most likely from the extended time she had hypoglycemia, with the correction of her blood sugar her hypothermia is much better. Multiple coronary artery disease last angiogram was in June 06, 2023 with mild LAD mild circumflex completely blockage in the RCA. The patient will be on medical management only. Type 2 diabetes: This would seem more obvious that patient is not able to manage her insulin pump and has been having multi episode of hypoglycemia related to convincing evidence at this point that patient need quick and repeat follow-up as an outpatient if end up doing to short and long-acting insulin shot today along with short acting insulin before each meals patient might have better management of the blood sugar. Also is one of the option to add SGLT2 product for better improvement on the long run. Hypertension: Continue losartan 25 mg a day and metoprolol succinate 50 mg daily. Chronic diabetic neuropathy: Has been on gabapentin 600 mg 3 times a day. Will hold off on gabapentin for the next 24 hours. Hypothyroidism: Continue levothyroxine 250 mcg daily. Will continue medication. Hyperlipidemia: Remain on rosuvastatin 40 mg a day with LDL has been below 70. COPD: She is on her updraft treatment does not require any oxygen she is on steroids is inhaler as well. Chronic depression: Has been on Effexor XR 225 mcg daily along with mirtazapine 7.5 mg at bedtime. Gastroparesis with recurrent episode of nausea and vomiting has been on Zofran, Protonix and Reglan. Mild PAD has been on Pletal 100 mg twice a day. Chronic elevations anemia: Still on the iron supplement on regular basis with hemoglobin still running around 10. Planning: Mccann catheter was removed patient was not able to void for longer time continue to train patient for using insulin injection, prescription was sent to the hospital patient initially was planning to go to SNF then apparently doing better than expected did not want to go to rehab but she wants to go home we will give her extra help. Is very tired and fatigued late and had serial couple times on managing her on insulin we will keep her till tomorrow continue to trend patient continue to watch for any urinary retention hopefully she will be able to go home tomorrow with needed help. Objective - Vital Signs Vital signs: Vital Signs Temp 98.2 F 09/04/23 20:00 Pulse 71 09/05/23 04:00 Resp 16 09/05/23 04:00 BP 114/71 09/05/23 04:00 Pulse Ox 99 09/05/23 04:00 FiO2 Intake & Output 09/04/23 09/04/23 09/05/23 06:59 18:59 06:59 Intake Total 118 Output Total 800 1000 400 Balance -800 -882 -400 Weight 77.111 kg Intake: Oral 118 Output: Urine 800 1000 400 Other: Voiding Method Indwelling Catheter Indwelling Catheter Indwelling Catheter - Labs CBC & Chem 7: 09/03/23 08:40 09/04/23 08:16 Labs: Abnormal Lab Results - Last 24 Hours (Table) 09/04/23 09/04/23 09/04/23 Range/Units 06:00 08:16 08:16 Sodium 135 L (137-145) mmol/L BUN 41 H (7-17) mg/dL Creatinine 1.50 H (0.52-1.04) mg/dL Glucose 342 H (74-99) mg/dL POC Glucose (mg/dL) 458 H (70-110) mg/dL Hemoglobin A1c 10.4 H (<=6.0) % C-Peptide 0.76 L (0.81-3.85) ng/mL Cortisol 24.7 H (3.1-22.4) UG/DL 09/04/23 09/04/23 09/04/23 Range/Units 08:24 10:27 11:34 Sodium (137-145) mmol/L BUN (7-17) mg/dL Creatinine (0.52-1.04) mg/dL Glucose (74-99) mg/dL POC Glucose (mg/dL) 344 H 187 H 156 H (70-110) mg/dL Hemoglobin A1c (<=6.0) % C-Peptide (0.81-3.85) ng/mL Cortisol (3.1-22.4) UG/DL 09/04/23 09/04/23 09/04/23 Range/Units 15:27 16:33 20:43 Sodium (137-145) mmol/L BUN (7-17) mg/dL Creatinine (0.52-1.04) mg/dL Glucose (74-99) mg/dL POC Glucose (mg/dL) 283 H 246 H 119 H (70-110) mg/dL Hemoglobin A1c (<=6.0) % C-Peptide (0.81-3.85) ng/mL Cortisol (3.1-22.4) UG/DL 09/05/23 Range/Units 02:04 Sodium (137-145) mmol/L BUN (7-17) mg/dL Creatinine (0.52-1.04) mg/dL Glucose (74-99) mg/dL POC Glucose (mg/dL) 113 H (70-110) mg/dL Hemoglobin A1c (<=6.0) % C-Peptide (0.81-3.85) ng/mL Cortisol (3.1-22.4) UG/DL
[2023-09-06 11:15] LABS: Glucose,Whole Blood 157 mg/dL (70-110)
--- NOTE | 2023-09-06 12:00 | P.PN ---
Subjective Progress Note Date: 09/06/23 History of present illness: 63-year-old one of our office patient with history of insulin-dependent diabetes mellitus, coronary artery disease with 4 stents, severe chronic arthritis, chronic neuropathy, CVA/TIA, deep venous thrombosis, hypertension, hyperlipide mike, rheumatoid arthritis, recurrent infection with ESBL and MRSA, previous history of stent and recurrent UTI who was in the hospital last: 8 weeks ago with non-ST [place] and hyponatremia with DKA was treated did well. She was admitted on 08/03/2023 for syncopal episode and questionable of TIA found to have severe hypoglycemia her troponin was negative for the time she had mild anemia slight decline in kidney function. Further testing including CT of the brain did not show any hemorrhage or abnormality but mild encephalomalacia of the right parietal lobe. Cardiology consultation along with pulmonary consultation failed to show any major abnormality with exception of the extended hypoglycemia she is going through repeatedly. Starting her back on her insulin pump continues to run slightly below and by the time she left the hospital she was supposed to go back to see her lump roller to talk about further management may be taking her off insulin pump completely and started back on short and long-acting insulin our the combined insulin 70/30 twice a day for better management and probably better chance of not running hypoglycemic as many times as she does currently. I am not quite sure what to make out of this more than probably the management and the confusion sugars through managing her insulin pump can be mostly the reason why her hypoglycemia happening more often and I would still highly recommend against going back on insulin pump. Difficult part of this again that patient will still insist to go back to her lump roller for managing her diabetes regardless with choice remain in the hospital will be left entirely up to her lump roller to have the final plan which is defeat the purpose of team planning since endocrinology are not taking care of her in the hospital or having to watch them any episode of hypoglycemia she goes through almost on a weekly basis. Patient brought by ambulance on for significant altered mental status and not responding well and time. Same time Found to have severe hypoglycemia initially blood sugar was running in the 30s and 40s had to discontinue her insulin pump and run patient on D5 IV to allow her to regain her conscious diet. Also patient found to be in slight acute kidney injury again after first couple hours trending slightly hyperglycemic which will continue for now she will reinitiate plan for Accu-Chek with sliding scale coverage with NovoLog and unwilling to start her back on either insulin 70/30 start may be at 10 or 15 units twice a day and titrate dose higher with patient cardiac disease she will benefit from being on SGLT2 product like Tradjenta or Jardiance. Which will be started in the morning. Will switch her D5 finally through KVO or normal saline for few hours before we take her off. Significant consult with diabetic management in the hospital as well. 09/03/2023: She is more awake and alert still drowsy still not acting right was seen and evaluated by cardiology no cardiac complaint at this point. One of the suggestion is to look into the hypothyroidism, patient was taking off insulin pump completely placed on insulin 70/[address] 8 to 10 units twice a day also placed on Accu-Chek with sliding scale coverage with 5 unit of NovoLog AC meals plus sliding scale. Continue to drop down to be hypoglycemic after taking her off hydrocortisone with the potential no reason to believe there is any adrenal suppression from what she had before we had to use another hydrocortisone dose 1 more time. With the blood sugar dropped down she was moved into D5.45 70 cc an hour for 3 this time and then the blood sugar become quite bit high the reaction she is having for the smaller dose of insulin is quite significant. Again not quite sure if there is any oral hypoglycemic agent she might have taking might create that the severity of hypoglycemia at this point her insulin level along with C-peptide and cortisol level will be checked also to exclude the possibility of insulinoma CT of the abdomen pain In the pancreatic area will be done to exclude any other possibility. If this is brought by oral hypoglycemic agent might take up to 72 hours to recover in the meanwhile will be on smaller dose of insulin to dialysis out without insulin pump at this point. Also continue to be little bit more aggressive on her thyroid replacement therapy she already had 100 mcg of levothyroxine IV we will do another 1 and then move 100 to 250 mcg of oral levothyroxine daily to correct any possibility of myxedema might be part of the picture at this point. 09/04/2023: She is doing slightly better treated aggressively with further hydrocortisone along with IV levothyroxine insulin pump has been off for over 24 hours blood sugar has been slightly better at this point request some insulin and C-peptide level today to see the value if this is medication related or patient has any insulinoma result for so far support the idea that patient pro beard had more reaction to medication. She had a few reading of the 200 clinical afternoon when numbers dropped finally to be in the 100 level the combination of Novolin 70/30 and NovoLog 3 to 5 units AC meals seems to work a lot better. As an outpatient already making plan for to have patient seen can closing machine tender on weekly basis and have her go back to see her lump roller early next week. Continue supportive care after the CAT scan done the patient diet and mobility will improve gradually and prepare hopefully for discharge sometime soon. One of the good option if agreed by patient is to host her probably in one of the SNF center for few days for better monitoring and management of her blood sugar even as an outpatient. 09/05/2023, patient is feeling slightly better, blood sugar has improved significantly on the long and the short acting insulin along with a bolus before meals. Patient is not having any further hypoglycemia, testing currently failed to show any major abnormalities so this is still reaction probably to the management of her insulin pump. Patient Mccann catheter was removed and she could not void for long period of time and then was able to void make in a day point patient is extremely weak and fatigued could not move and had a quite bit difficult time making judgment whether wants to go to SNF or go home. Will delay her discharge till tomorrow continue to watch patient for an extra night. 09/06/2023: Patient is doing very well Mccann catheter remain out has been doing well able to void on her own, blood sugar is not low anymore she ran couple reading in the 200 rest are in the 100 doing slightly better with the smaller dose of insulin between the 70/30 and the NovoLog. Patient will be discharged home today to be seen by can closing machine tender this early week and follow-up in our office weekly for the next 6 weeks also will have follow-up with endocrinology and endocrinology clinically bed more often and try to keep patient off insulin pump completely at this point. SGLT2 product was added to her medication regime. REVIEW OF SYSTEMS: CONSTITUTIONAL: Well-developed no acute respiratory distress. Still little bit drowsy and sluggish. EYES: No icterus sclerae, no conjunctivitis. EARS, NOSE, MOUTH, THROAT, and FACE: No sore throat, lymphadenopathy, carotid bruits or deformity. RESPIRATORY: No SOB cough or wheezes. CARDIOVASCULAR: No CP, Palpitation, PND, Orthopnea, or angina. GASTROINTESTINAL: No Abd pain, Nausea or vomiting, no Diarrhea or constipation, No GI Bleed, no distention or masses. GENITOURINARY: Negative for Hematuria or UTI, no kidney stones. Mild incontinence. INTEGUMENT/BREAST: Generalized muscle and joint pain. HEMATOLOGIC/LYMPHATIC: Negative for bleed or purpura. MUSCULOSKELTAL: Myalgia and arthralgia with lower back pain. NEURLOGICAL: Positive loss of consciousness with no seizure activity no blurred vision positive dizziness no sign of stroke or mini stroke at this point. BEHAVIORAL/PSYCH: Negative. ENDOCRINE: Negative. PHYSICAL EXAMINATION: General Appearance: Alert, cooperative, no distress, looks older than her age do es not look in any respiratory distress. Neck HEENT: Supple, no lymphadenopathy, no thyroid enlargement, no carotid bruits. Lungs: Clear to auscultation without crackles or wheezes no rhonchi, no defo rmity. Chest Wall: Normal expansion with slight tenderness, slightly at resuscitation. And no deformity was found on exam, no costochondral pain or discomfort. Heart: Regular rate and rhythm, S1, S2 normal, no murmur, rub or gallop. Back: Symmetric, no curvature, ROM normal, no CVA tenderness. Abdomen: Soft, non-tender, bowel sounds active all four quadrants, no masses, no organomegaly. Extremities: Extremities normal, atraumatic, no cyanosis or edema. Pulses: 2+ and symmetric. Skin: Skin color, texture, tugor normal, no rashes or lesions. Neurologic: Alert oriented x3 cranial nerves II through XII intact, no motor deficit, no abnormal balance or gait. ASSESSMENT AND PLAN: Altered mental status: Most likely from extended hypoglycemia not clear for how many hours so this might take little longer time to regain her conscious and mentation might take her to the morning in the meanwhile will discontinue her insulin pump and continue D5 and allow sugar to go a little bit up before starting longer-term insulin management. Severe hypoglycemia: Was most likely related to higher insulin through her insulin pump having to switch her to short and long-acting insulin along with short acting insulin before meals have made a huge difference. _Myxedema: Was most likely from missing her higher dose of levothyroxine for a long time causing patient to have more symptoms she has hypothyroidism require to be on 250 mcg of levothyroxine repeatedly back on her medication and retest her TSH and free T4 in the next 4 to 6 weeks. _Severe hypothermia: With central body temperature still low most likely from the extended time she had hypoglycemia, with the correction of her blood sugar her hypothermia is much better. Multiple coronary artery disease last angiogram was in June 06, 2023 with mild LAD mild circumflex completely blockage in the RCA. The patient will be on medical management only. Type 2 diabetes: This would seem more obvious that patient is not able to manage her insulin pump and has been having multi episode of hypoglycemia related to convincing evidence at this point that patient need quick and repeat follow-up as an outpatient if end up doing to short and long-acting insulin shot today along with short acting insulin before each meals patient might have better management of the blood sugar. Also is one of the option to add SGLT2 product for better improvement on the long run. Hypertension: Continue losartan 25 mg a day and metoprolol succinate 50 mg daily. Chronic diabetic neuropathy: Has been on gabapentin 600 mg 3 times a day. Will hold off on gabapentin for the next 24 hours. Hypothyroidism: Continue levothyroxine 250 mcg daily. Will continue medication. Hyperlipidemia: Remain on rosuvastatin 40 mg a day with LDL has been below 70. COPD: She is on her updraft treatment does not require any oxygen she is on steroids is inhaler as well. Chronic depression: Has been on Effexor XR 225 mcg daily along with mirtazapine 7.5 mg at bedtime. Gastroparesis with recurrent episode of nausea and vomiting has been on Zofran, Protonix and Reglan. Mild PAD has been on Pletal 100 mg twice a day. Chronic elevations anemia: Still on the iron supplement on regular basis with hemoglobin still running around 10. Planning: Patient is doing very well walk with a walker has enough help at home, visiting nurse will be arranged also patient be seen in the office earlier this week by one of our providers along with dependency case manager for diabetes will continue to watch patient taking her Tradjenta along with insulin 70/30 and NovoLog short acting before meals. Hopefully patient will be discharged today. Objective - Vital Signs Vital signs: Vital Signs Temp 98.1 F 09/06/23 08:00 Pulse 75 09/06/23 08:00 Resp 16 09/06/23 08:00 BP 155/76 09/06/23 08:00 Pulse Ox 98 09/06/23 08:00 FiO2 Intake & Output 09/05/23 09/06/23 09/06/23 18:59 06:59 18:59 Intake Total 476 120 118 Output Total 300 Balance 176 120 118 Intake: Oral 476 120 118 Output: Urine 300 Uretheral (Mccann) 300 Other: Voiding Method Toilet Toilet # Voids 1 1 - Labs CBC & Chem 7: 09/03/23 08:40 09/04/23 08:16 Labs: Abnormal Lab Results - Last 24 Hours (Table) 09/05/23 09/05/23 09/05/23 Range/Units 11:35 16:22 19:55 POC Glucose (mg/dL) 168 H 154 H 280 H (70-110) mg/dL 09/06/23 09/06/23 Range/Units 01:59 05:56 POC Glucose (mg/dL) 139 H 273 H (70-110) mg/dL
--- NOTE | 2023-09-06 12:05 | P.DS ---
Providers Date of admission: 09/02/23 20:00 Attending physician: Gage Sy Primary care physician: Sahra Fuller Hospital Course: History of present illness: 63-year-old one of our office patient with history of insulin-dependent diabetes mellitus, coronary artery disease with 4 stents, severe chronic arthritis, chronic neuropathy, CVA/TIA, deep venous thrombosis, hypertension, hyperlipidemia, rheumatoid arthritis, recurrent infection with ESBL and MRSA, previous history of stent and recurrent UTI who was in the hospital last: 8 weeks ago with non-ST MD and hyponatremia with DKA was treated did well. She was admitted on 08/03/2023 for syncopal episode and questionable of TIA found to have severe hypoglycemia her troponin was negative for the time she had mild anemia slight decline in kidney function. Further testing including CT of the brain did not show any hemorrhage or abnormality but mild encephalomalacia of the right parietal lobe. Cardiology consultation along with pulmonary consultation failed to show any major abnormality with exception of the extended hypoglycemia she is going through repeatedly. Starting her back on her insulin pump continues to run slightly below and by the time she left the hospital she was supposed to go back to see her boat assembler to talk about further management may be taking her off insulin pump completely and started back on short and long-acting insulin our the combined insulin 70/30 twice a day for better management and probably better chance of not running hypoglycemic as many times as she does currently. I am not quite sure what to make out of this more than probably the management and the confusion sugars through managing her insulin pump can be mostly the reason why her hypoglycemia happening more often and I would still highly recommend against going back on insulin pump. Difficult part of this again that patient will still insist to go back to her boat assembler for managing her diabetes regardless with choice remain in the hospital will be left entirely up to her boat assembler to have the final plan which is defeat the purpose of team planning since endocrinology are not taking care of her in the hospital or having to watch them any episode of hypoglycemia she goes through almost on a weekly basis. Patient brought by ambulance on for significant altered mental status and not responding well and time. Same time Found to have severe hypoglycemia initially blood sugar was running in the 30s and 40s had to discontinue her insulin pump and run patient on D5 IV to allow her to regain her conscious diet. Also patient found to be in slight acute kidney injury again after first couple hours trending slightly hyperglycemic which will continue for now she will reinitiate plan for Accu-Chek with sliding scale coverage with NovoLog and unwilling to start her back on either insulin 70/30 start may be at 10 or 15 units twice a day and titrate dose higher with patient cardiac disease she will benefit from being on SGLT2 product like Tradjenta or Jardiance. Which will be started in the morning. Will switch her D5 finally through KVO or normal saline for few hours before we take her off. Significant consult with diabetic management in the hospital as well. 09/03/2023: She is more awake and alert still drowsy still not acting right was seen and evaluated by cardiology no cardiac complaint at this point. One of the suggestion is to look into the hypothyroidism, patient was taking off insulin pump completely placed on insulin 70/[address] 8 to 10 units twice a day also placed on Accu-Chek with sliding scale coverage with 5 unit of NovoLog AC meals plus sliding scale. Continue to drop down to be hypoglycemic after taking her off hydrocortisone with the potential no reason to believe there is any adrenal suppression from what she had before we had to use another hydrocortisone dose 1 more time. With the blood sugar dropped down she was moved into D5.45 70 cc an hour for 3 this time and then the blood sugar become quite bit high the reaction she is having for the smaller dose of insulin is quite significant. Again not quite sure if there is any oral hypoglycemic agent she might have taking might create that the severity of hypoglycemia at this point her insulin level along with C-peptide and cortisol level will be checked also to exclude the possibility of insulinoma CT of the abdomen pain In the pancreatic area will be done to exclude any other possibility. If this is brought by oral hypoglycemic agent might take up to 72 hours to recover in the meanwhile will be on smaller dose of insulin to dialysis out without insulin pump at this point. Also continue to be little bit more aggressive on her thyroid replacement therapy she already had 100 mcg of levothyroxine IV we will do another 1 and then move 100 to 250 mcg of oral levothyroxine daily to correct any possibility of myxedema might be part of the picture at this point. 09/04/2023: She is doing slightly better treated aggressively with further hydrocortisone along with IV levothyroxine insulin pump has been off for over 24 hours blood sugar has been slightly better at this point request some insulin and C-peptide level today to see the value if this is medication related or patient has any insulinoma result for so far support the idea that patient probably had more reaction to medication. She had a few reading of the 200 clinical afternoon when numbers dropped finally to be in the 100 level the combination of Novolin 70/30 and NovoLog 3 to 5 units AC meals seems to work a l ot better. As an outpatient already making plan for to have patient seen para educator on weekly basis and have her go back to see her boat assembler early next week. Continue supportive care after the CAT scan done the patient diet and mobility will improve gradually and prepare hopefully for discharge sometime soon. One of the good option if agreed by patient is to host her probably in one of the SNF center for few days for better monitoring and management of her blood sugar even as an outpatient. 09/05/2023, patient is feeling slightly better, blood sugar has improved significantly on the long and the short acting insulin along with a bolus before meals. Patient is not having any further hypoglycemia, testing currently failed to show any major abnormalities so this is still reaction probably to the management of her insulin pump. Patient Mccann catheter was removed and she could not void for long period of time and then was able to void make in a day point patient is extremely weak and fatigued could not move and had a quite bit difficult time making judgment whether wants to go to SNF or go home. Will delay her discharge till tomorrow continue to watch patient for an extra night. 09/06/2023: Patient is doing very well Mccann catheter remain out has been doing well able to void on her own, blood sugar is not low anymore she ran couple reading in the 200 rest are in the 100 doing slightly better with the smaller dose of insulin between the 70/30 and the NovoLog. Patient will be discharged home today to be seen by para educator this early week and follow-up in our office weekly for the next 6 weeks also will have follow-up with endocrinology and endocrinology clinically bed more often and try to keep patient off insulin pump completely at this point. SGLT2 product was added to her medication regime. REVIEW OF SYSTEMS: CONSTITUTIONAL: Well-developed no acute respiratory distress. Still little bit drowsy and sluggish. EYES: No icterus sclerae, no conjunctivitis. EARS, NOSE, MOUTH, THROAT, and FACE: No sore throat, lymphadenopathy, carotid bruits or deformity. RESPIRATORY: No SOB cough or wheezes. CARDIOVASCULAR: No CP, Palpitation, PND, Orthopnea, or angina. GASTROINTESTINAL: No Abd pain, Nausea or vomiting, no Diarrhea or constipation, No GI Bleed, no distention or masses. GENITOURINARY: Negative for Hematuria or UTI, no kidney stones. Mild incontinence. INTEGUMENT/BREAST: Generalized muscle and joint pain. HEMATOLOGIC/LYMPHATIC: Negative for bleed or purpura. MUSCULOSKELTAL: Myalgia and arthralgia with lower back pain. NEURLOGICAL: Positive loss of consciousness with no seizure activity no blurred vision positive dizziness no sign of stroke or mini stroke at this point. BEHAVIORAL/PSYCH: Negative. ENDOCRINE: Negative. PHYSICAL EXAMINATION: General Appearance: Alert, cooperative, no distress, looks older than her age does not look in any respiratory distress. Neck HEENT: Supple, no lymphadenopathy, no thyroid enlargement, no carotid bruits. Lungs: Clear to auscultation without crackles or wheezes no rhonchi, no deformity. Chest Wall: Normal expansion with slight tenderness, slightly at resuscitation. And no deformity was found on exam, no costochondral pain or discomfort. Heart: Regular rate and rhythm, S1, S2 normal, no murmur, rub or gallop. Back: Symmetric, no curvature, ROM normal, no CVA tenderness. Abdomen: Soft, non-tender, bowel sounds active all four quadrants, no masses, no organomegaly. Extremities: Extremities normal, atraumatic, no cyanosis or edema. Pulses: 2+ and symmetric. Skin: Skin color, texture, tugor normal, no rashes or lesions. Neurologic: Alert oriented x3 cranial nerves II through XII intact, no motor deficit, no abnormal balance or gait. ASSESSMENT AND PLAN: Altered mental status: Most likely from extended hypoglycemia not clear for how many hours so this might take little longer time to regain her conscious and mentation might take her to the morning in the meanwhile will discontinue her insulin pump and continue D5 and allow sugar to go a little bit up before start ing longer-term insulin management. Severe hypoglycemia: Was most likely related to higher insulin through her insulin pump having to switch her to short and long-acting insulin along with short acting insulin before meals have made a huge difference. _Myxedema: Was most likely from missing her higher dose of levothyroxine for a long time causing patient to have more symptoms she has hypothyroidism require to be on 250 mcg of levothyroxine repeatedly back on her medication and retest her TSH and free T4 in the next 4 to 6 weeks. _Severe hypothermia: With central body temperature still low most likely from the extended time she had hypoglycemia, with the correction of her blood sugar her hypothermia is much better. Multiple coronary artery disease last angiogram was in June 06, 2023 with mild LAD mild circumflex completely blockage in the RCA. The patient will be on medical management only. Type 2 diabetes: This would seem more obvious that patient is not able to manage her insulin pump and has been having multi episode of hypoglycemia related to convincing evidence at this point that patient need quick and repeat follow-up as an outpatient if end up doing to short and long-acting insulin shot today along with short acting insulin before each meals patient might have better management of the blood sugar. Also is one of the option to add SGLT2 product for better improvement on the long run. Hypertension: Continue losartan 25 mg a day and metoprolol succinate 50 mg daily. Chronic diabetic neuropathy: Has been on gabapentin 600 mg 3 times a day. Will hold off on gabapentin for the next 24 hours. Hypothyroidism: Continue levothyroxine 250 mcg daily. Will continue medication. Hyperlipidemia: Remain on rosuvastatin 40 mg a day with LDL has been below 70. COPD: She is on her updraft treatment does not require any oxygen she is on steroids is inhaler as well. Chronic depression: Has been on Effexor XR 225 mcg daily along with emmanuel tazapine 7.5 mg at bedtime. Gastroparesis with recurrent episode of nausea and vomiting has been on Zofran, Protonix and Reglan. Mild PAD has been on Pletal 100 mg twice a day. Chronic elevations anemia: Still on the iron supplement on regular basis with hemoglobin still running around 10. Planning: Patient is doing very well walk with a walker has enough help at home, visiting nurse will be arranged also patient be seen in the office earlier this week by one of our providers along with director of casework department for diabetes will continue to watch patient taking her Tradjenta along with insulin 70/30 and NovoLog short acting before meals. Hopefully patient will be discharged today. Hospital course: Patient was hospitalized with severe altered mental status had combination of severe hypoglycemia, hypothermia, hypotension, and mild bradycardia. Took her off insulin pump completely measuring her thyroid came back to be quite low she was very sluggish and her respond initially she was put on warming blanket body temperature start warming up, initially doubt without with she have might be adrenal insufficiency and adrenal crisis ended up being on hydrocortisone injection which made her blood sugar goes quite bit high at the time. Patient was started on short and long-acting insulin along with short acting insulin before meals also will introduce SGLT2 product. Talk with patient about not going back on insulin pump and making her blood sugar probably controlled with 2 shot of insulin 70/30 along with AC meals of NovoLog plus sliding scales medication will be continue throughout para educator in the office on weekly basis for the next 6 to 8 weeks and patient be seen in our office by one of our provider every 1 to 2 weeks till the blood sugars under control and we are happy with it. Also patient was encouraged to go back to see her boat assembler and not to go back on insulin pump at all 10 manage between the 2 offices of possible letter will be provided to her boat assembler for the necessity and the need to take her off insulin pump to reduce the number of visit to the emergency department any complication related to her hypoglycemia that Lala has gone through in the last 6 months. Patient was ready to discharge home today she is not having any urinary retention her Mccann catheter has been out for last 24 hours patient is doing well with diabetic education to be able to give her insulin on self insulin. Time spent on discharging patient was over 40 minutes. Patient Condition at Discharge: Fair Plan - Discharge Summary Discharge Rx Participant: No New Discharge Prescriptions: New Butalb/APAP/Caff 50-325-40Mg [Fioricet 50-325-40] 1 each PO BID PRN #20 tab PRN Reason: Migraine Headache Insuln Asp Prt/Insulin Aspart [NovoLOG MIX 70-30 VIAL] 8 unit SQ AC-BID #3 each INSULIN ASPART (NovoLOG) [NovoLOG (formulary)] 0 unit SQ ACHS #0 each INSULIN ASPART (NovoLOG) [NovoLOG (formulary)] 5 unit SQ AC-TID #3 each Linagliptin [Tradjenta] 5 mg PO DAILY #30 tab Continue Venlafaxine HCl [Effexor XR] 225 mg PO DAILY Pantoprazole Sodium [Protonix] 40 mg PO BID Meclizine [Antivert] 25 mg PO TID PRN PRN Reason: DIZZINESS Magnesium Oxide [Mag-Ox] 400 mg PO DAILY Levothyroxine Sodium [Synthroid] 200 mcg PO DAILY Levothyroxine Sodium [Synthroid] 50 mcg PO DAILY Cholecalciferol [Vitamin D3 (125 Mcg = 5000 Iu)] 125 mcg PO TID Cetirizine HCl [Zyrtec] 10 mg PO DAILY Acetaminophen Tab [Tylenol] 650 mg PO Q6HR PRN tab PRN Reason: Fever And/ Or Pain Aspirin EC [Ecotrin Low Dose] 81 mg PO DAILY Metoclopramide HCl [Reglan] 5 mg PO TID PRN #30 tablet PRN Reason: Nausea Ondansetron Odt [Zofran ODT] 4 mg PO Q8HR PRN #10 tab PRN Reason: Nausea Mirtazapine 7.5 mg PO HS cilostazoL [Pletal] 100 mg PO DIRECTED Losartan [Cozaar] 50 mg PO DAILY #60 tab Metoprolol Succinate (ER) [Toprol XL] 25 mg PO DAILY #60 tab Gabapentin 600 mg PO TID #90 tab Ferrous Sulfate [Iron (65 MG Elemental)] 325 mg PO DAILY Multivitamins, Thera [Multivitamin (formulary)] 1 tab PO DAILY Ipratropium-Albuterol Nebulize [Duoneb 0.5 mg-3 mg/3 ml Soln] 3 ml INHALATION RT-QID PRN PRN Reason: Shortness Of Breath Glucagon [Baqsimi] 1 spray NASAL DIRECTED PRN PRN Reason: Severe Hypoglycemia Butalb/APAP/Caff 50-325-40Mg [Fioricet 50-325-40] 1 tab PO BID PRN PRN Reason: Migraine Headache Loperamide [Imodium] 2 mg PO TID PRN #21 capsule PRN Reason: Diarrhea Rosuvastatin Calcium [Crestor] 40 mg PO HS Isosorbide Mononitrate ER [Imdur] 30 mg PO DAILY Diclofenac Sodium [Diclofenac Sodium 1%] 1 applic TOPICAL TID HYDROcodone/APAP 5-325MG [Weldon 5-325] 1 tab PO Q6H PRN #20 tab PRN Reason: Pain Discontinued Ibuprofen [Motrin] 600 mg PO TID PRN PRN Reason: Pain INSULIN LISPRO (For Pump) [humaLOG (For Pump)] 0.01 units SQ-PUMP CONTINUOUS Discharge Medication List Venlafaxine HCl [Effexor XR] 225 mg PO DAILY 10/21/16 [History] Pantoprazole Sodium [Protonix] 40 mg PO BID 04/06/20 [History] Meclizine [Antivert] 25 mg PO TID PRN 01/16/21 [History] Ferrous Sulfate [Iron (65 MG Elemental)] 325 mg PO DAILY 10/02/21 [History] Cetirizine HCl [Zyrtec] 10 mg PO DAILY 07/15/22 [History] Cholecalciferol [Vitamin D3 (125 Mcg = 5000 Iu)] 125 mcg PO TID 07/15/22 [History] Glucagon [Baqsimi] 1 spray NASAL DIRECTED PRN 07/15/22 [History] Ipratropium-Albuterol Nebulize [Duoneb 0.5 mg-3 mg/3 ml Soln] 3 ml INHALATION RT-QID PRN 07/15/22 [History] Levothyroxine Sodium [Synthroid] 50 mcg PO DAILY 07/15/22 [History] Levothyroxine Sodium [Synthroid] 200 mcg PO DAILY 07/15/22 [History] Magnesium Oxide [Mag-Ox] 400 mg PO DAILY 07/15/22 [History] Multivitamins, Thera [Multivitamin (formulary)] 1 tab PO DAILY 07/15/22 [History] Acetaminophen Tab [Tylenol] 650 mg PO Q6HR PRN tab 09/04/22 [Rx] Aspirin EC [Ecotrin Low Dose] 81 mg PO DAILY 10/03/22 [History] Butalb/APAP/Caff 50-325-40Mg [Fioricet 50-325-40] 1 tab PO BID PRN 10/03/22 [History] Loperamide [Imodium] 2 mg PO TID PRN #21 capsule 10/07/22 [Rx] Rosuvastatin Calcium [Crestor] 40 mg PO HS 01/05/23 [History] Metoclopramide HCl [Reglan] 5 mg PO TID PRN #30 tablet 01/07/23 [Rx] Ondansetron Odt [Zofran ODT] 4 mg PO Q8HR PRN #10 tab 01/07/23 [Rx] Isosorbide Mononitrate ER [Imdur] 30 mg PO DAILY 04/10/23 [History] Mirtazapine 7.5 mg PO HS 04/10/23 [History] Diclofenac Sodium [Diclofenac Sodium 1%] 1 applic TOPICAL TID 08/02/23 [History] cilostazoL [Pletal] 100 mg PO DIRECTED 08/02/23 [History] Losartan [Cozaar] 50 mg PO DAILY #60 tab 08/05/23 [Rx] Metoprolol Succinate (ER) [Toprol XL] 25 mg PO DAILY #60 tab 08/05/23 [Rx] Butalb/APAP/Caff 50-325-40Mg [Fioricet 50-325-40] 1 each PO BID PRN #20 tab 09/05/23 [Rx] Gabapentin 600 mg PO TID #90 tab 09/05/23 [Rx] HYDROcodone/APAP 5-325MG [Weldon 5-325] 1 tab PO Q6H PRN #20 tab 09/05/23 [Rx] INSULIN ASPART (NovoLOG) [NovoLOG (formulary)] 0 unit SQ ACHS #0 each 09/05/23 [Rx] INSULIN ASPART (NovoLOG) [NovoLOG (formulary)] 5 unit SQ AC-TID #3 each 09/05/23 [Rx] Insuln Asp Prt/Insulin Aspart [NovoLOG MIX 70-30 VIAL] 8 unit SQ AC-BID #3 each 09/05/23 [Rx] Linagliptin [Tradjenta] 5 mg PO DAILY #30 tab 09/05/23 [Rx] Follow up Appointment(s)/Referral(s): Sahra Elder MD [Primary Care Provider] - 1 Week (Please call Friday to schedule follow up appoitment) [facility] Visiting Nurse, [NON-STAFF] - 1 Week Patient Instructions/Handouts: Insulin Scale A (MPH), What is Insulin (DC), Altered Mental Status (ED) Discharge Disposition: TRANSFER TO SNF/ECF
[2023-09-06 12:52] VITALS: BP 130/68; PULSE 70
--- NOTE | 2023-09-11 15:55 | CDI ---
Documentation Clarification Form Date: 09/11/2023 From: Thalia Del Real Admit Date: 09/02/2023 08:00:00 PM Patient Name: Llaa Kenyon Visit Number: [id number] Discharge Date: 09/06/2023 01:03:00 PM ATTENTION: The Clinical Documentation Specialists (CDI) and [facility] Coding Staff appreciate your assistance in clarifying documentation. Please respond to the clarification below the line at the bottom and electronically sign. The CDI & [facility] Coding staff will review the response and follow-up if needed. Please note: Queries are made part of the Legal Health Record. If you have any questions, please contact the author of this message via ITS. Dr. Gage Sy Your patient has the documented symptom of Altered Mental Status. Additional clarification regarding the etiology/cause of this symptom is requested. History/Risk Factors: 63yo presented w/ severe hypoglycemia, altered mental status and acute kidney injury Clinical Indicators: Per query response on 09/03, the patients AMS was due to metabolic encephalopathy due to hypoglycemia and hyperglycemia. Per PN on 09/02, Altered mental status: Most likely from extended hypoglycemia, Severe hypothyroidism: Either from noncompliance to medication or failure to absorb, given possibility of myxedema is not that high but with the picture patient presents specially response is slow, Severe hypothermia: With central body temperature sill low most likely from the extended time she had hypoglycemia. Labs 09/01: Free T4 0.73, TSH 3rd gen 67.5 VS: 09/01 @ 1750 temp 95.6, 50, 6, 108/54, 97% on RA Treatment: D5% 1/2NS IV fluid, amp D50 IVP x3, Solu-Cortef IV, Synthroid IVP x2, increase in po synthroid up to 250mcg Please clarify the etiology of the symptom of Altered Mental Status: [xx ] Myxedema coma superimposed on metabolic encephalopathy 2nd to hyperglycemia and hypoglycemia [xx ] Metabolic encephalopathy 2nd to hyperglycemia and hypoglycemia only [ ] Other condition (please specify) [ ] Unable to determine (Template Last Revised: July 2020) MTDD
== END 2023-09-06 13:03 | disposition home health service (06) | DRG 420 ==
LOC: EC 16:12 → SUPCPDRO 16:12 → 3SCARD 20:00 → 4SSUR 09-03 10:59 → 3SCARD 09-03 14:15
PROVIDERS: ADMIT Internal Medicine Geriatric Medicine; ATTEND Internal Medicine Geriatric Medicine
DX: E11.649 Type 2 diabetes mellitus with hypoglycemia without coma (principal); E03.5 Myxedema coma; G93.41 Metabolic encephalopathy; E11.65 Type 2 diabetes mellitus with hyperglycemia; Z96.41 Presence of insulin pump (external) (internal); Z79.4 Long term (current) use of insulin; N17.9 Acute kidney failure, unspecified; T68.XXXA Hypothermia, initial encounter; F32.A Depression, unspecified; R32 Unspecified urinary incontinence; I25.10 Atherosclerotic heart disease of native coronary artery without angina pectoris; E11.51 Type 2 diabetes mellitus with diabetic peripheral angiopathy without gangrene; E11.43 Type 2 diabetes mellitus with diabetic autonomic (poly)neuropathy; E11.40 Type 2 diabetes mellitus with diabetic neuropathy, unspecified; M19.90 Unspecified osteoarthritis, unspecified site; Z95.5 Presence of coronary angioplasty implant and graft; I10 Essential (primary) hypertension; J44.9 Chronic obstructive pulmonary disease, unspecified; E78.5 Hyperlipidemia, unspecified; M06.9 Rheumatoid arthritis, unspecified; I95.9 Hypotension, unspecified; G93.89 Other specified disorders of brain; K31.84 Gastroparesis; Z87.440 Personal history of urinary (tract) infections; Z86.14 Personal history of Methicillin resistant Staphylococcus aureus infection; I25.2 Old myocardial infarction; E87.1 Hypo-osmolality and hyponatremia; Z88.2 Allergy status to sulfonamides; Z86.73 Personal history of transient ischemic attack (TIA), and cerebral infarction without residual deficits; Z91.040 Latex allergy status; G89.29 Other chronic pain; M54.9 Dorsalgia, unspecified; D50.9 Iron deficiency anemia, unspecified; R00.1 Bradycardia, unspecified; I25.5 Ischemic cardiomyopathy; K21.9 Gastro-esophageal reflux disease without esophagitis; Z90.5 Acquired absence of kidney; E86.0 Dehydration; G25.81 Restless legs syndrome; H40.9 Unspecified glaucoma; Z79.02 Long term (current) use of antithrombotics/antiplatelets; Z79.82 Long term (current) use of aspirin; Z79.890 Hormone replacement therapy; Z79.899 Other long term (current) drug therapy; Z87.891 Personal history of nicotine dependence; Z91.148 Patient's other noncompliance with medication regimen for other reason; Z85.528 Personal history of other malignant neoplasm of kidney; Z86.718 Personal history of other venous thrombosis and embolism; Z80.8 Family history of malignant neoplasm of other organs or systems; Z83.3 Family history of diabetes mellitus; Z82.49 Family history of ischemic heart disease and other diseases of the circulatory system
CPT/HCPCS: 36415; 51702; 70450; 71045; 74176; 80048; 80053; 81003; 82533; 83036; 83525; 83605; 83735; 83880; 84100; 84439; 84443; 84484; 84681; 85025; 85610; 85730; 86850; 86900; 86901; 93005; 94760; 96361; 96374; 96375; 96376; 99291

== ENCOUNTER → 2023-12-11 | Outpatient (CLI) | payer OTHER ==
[2023-12-11 13:35] LABS: African American GFR (CKD) 67 (>60 ml/min/1.73 sqM); Blood Urea Nitrogen 18 mg/dL (7-17); Non-African American GFR(CKD) 58 (>60 ml/min/1.73 sqM)
--- NOTE | 2023-12-11 15:01 | CT ---
EXAMINATION TYPE: CT angio abd aorta w/Runoff, without and with contrast DATE OF EXAM: 12/11/2023 COMPARISON: CT abdomen and pelvis 09/04/2023 HISTORY: 63-year-old female I77.1, stricture of artery in Rt leg TECHNIQUE: Contiguous axial scanning of the abdomen and pelvis performed without and with IV Contrast , patient injected with 80ml mL of Isovue 370. Postcontrast scan performed with bilateral lower extre mity runoff. Coronal/sagittal reconstructions performed. 3-D reconstructions generated on a dedicated workstation. CT DLP: 1073.40 mGycm Automated exposure control for dose reduction was used. FINDINGS: Abdomen and pelvis: Heart borderline in size without pericardial effusion. Mild emphysematous changes in the lower lungs with some strandy line as well as a calcified granuloma at the periphery of the left base. No pleural effusion. Redemonstrated pneumobilia suggesting prior sphincterotomy. Gallbladder appears surgically absent. Adrenal glands, right kidney, spleen, and pancreas show no gross anomaly. Atrophic left kidney with a an upper pole cyst measuring 1.8 cm as well as a nonobstructive 9 mm ston e. No dilated small bowel, free fluid, or free air. No mesenteric or retroperitoneal lymphadenopathy. Scattered liquid stool throughout the colon. Mild overall stool burden. No pericolonic inflammatory c hange. Mild circumferential bladder wall thickening maybe chronic from the patient. Correlated to exclude cy stitis. Uterus is anteverted. Ovaries not well delineated due to clustered bowel loops in the pelvis. No abnormal fluid collection the pelvis or pelvic lymphadenopathy seen. Bones: Osteopenia. There is fixed grade 2 anterolisthesis L5-S1. Severe degenerative disc disease L-1-L2 and moderate to severe in the visualized lower thoracic spine. There is hypertrophic facet arthropathy present. Chronic severe inferior compression deformities of the L3 vertebral body. Small to moderate knee joint effusions on both sides. Vasculature: Moderate atherosclerotic calcifications abdominal aorta. The celiac axis and SMA are patent as is the right renal artery. The left renal artery has a somewhat diminutive appearance. KRYSTAL is patent. No an eurysm. Right: Mild to moderate arthroscopic calcifications throughout. Moderate focal stenosis proximal right external iliac artery. There is a 1.5 cm segment of occlusion of the NEWSPAPER PHOTOGRAPHER just prior to the bifurcation which is otherwise pa tent. Mild to moderate atherosclerotic calcifications throughout the SFA, popliteal artery, and trifurcatio n vessels. The peroneal and anterior tibial arteries become diminutive at the upper third leg. No longer well se en at the distal third leg/ankle level. Satisfactory runoff via the posterior tibial artery. Left: Mild to moderate atherosclerotic calcification throughout. NEWSPAPER PHOTOGRAPHER and PFA are patent. Segmental mild stenosis proximal SFA. Remainder of the SFA and popliteal artery as well as the trifurcation vessels are patent. The peroneal and anterior tibial arteries become diminutive at the upper third lead level and are no longer seen at the distal third leg runoff via the posterior tibial artery. IMPRESSION: 1. A 1.5 CM LONG SEGMENT OF OCCLUSION INVOLVING THE RIGHT NEWSPAPER PHOTOGRAPHER JUST PRIOR TO ITS BIFURCATION. 2. Scattered mild to moderate atherosclerotic calcifications within the lower extremities. Moderate a therosclerotic calcifications infrarenal abdominal aorta. 3. Incidental diminutive caliber left renal artery with a renal atrophy. 4. The trifurcation vessels are patent. However, both peroneal and anterior tibial arteries become di minutive at the upper third leg and are not clearly seen beyond the distal third leg. Satisfactory ru noff via the bilateral posterior tibial arteries.
== END | disposition home or self-care (01) ==
LOC: RADCTMAIN 12:23
PROVIDERS: ATTEND Surgery Vascular Surgery
DX: I77.1 Stricture of artery (principal); I70.0 Atherosclerosis of aorta; N26.1 Atrophy of kidney (terminal)
CPT/HCPCS: 82565; 84520; 75635; 36415; Q9967

== ENCOUNTER 2024-02-12 12:02 | Inpatient (IN) | payer OTHER ==
--- NOTE | 2024-02-12 13:05 | ED ---
Fall HPI - General Chief Complaint: Fall Stated Complaint: fall Source: patient, RN notes reviewed, old records reviewed Mode of arrival: ambulatory - History of Present Illness Initial Comments: QN-64 female to the ER for evaluation of a syncopal event resulting in fall with back pain and hitting her head. Patient states that she has diabetes and does occasionally have syncopal events. Patient feels very weak here in the ER denying chest pain or shortness of breath This is a 64-year-old female to the ER for evaluation today. 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 Fall Witnessed: no Place Fall Occurred: home Loss of Consciousness: none Symptoms Prior to Fall: none Location: head, face, neck, chest, back Severity: moderate Severity scale (1-10): 5 Context: tripped/slipped, history of frequent falls, other (1 syncopal event) Associated Symptoms: denies - Related Data Home Medications Medication Instructions Recorded Confirmed Venlafaxine HCl [Effexor XR] 225 mg PO DAILY 10/21/16 02/12/24 Pantoprazole Sodium [Protonix] 40 mg PO BID 04/06/20 02/12/24 Aspirin EC [Ecotrin Low Dose] 81 mg PO DAILY 10/03/22 02/12/24 Isosorbide Mononitrate ER [Imdur] 30 mg PO DAILY 04/10/23 02/12/24 Mirtazapine 7.5 mg PO HS 04/10/23 02/12/24 cilostazoL [Pletal] 100 mg PO BID 08/02/23 02/12/24 Glucagon [Gvoke Pfs 1-Pack Syringe] 1 mg SQ DIRECTED PRN 02/12/24 02/12/24 INSULIN LISPRO (HumaLOG) [humaLOG] 4 units SQ AC-TID 02/12/24 02/12/24 INSULIN LISPRO (HumaLOG) [humaLOG] See Protocol SQ ACHS 02/12/24 02/12/24 Insulin Glargine [Lantus Vial] 10 unit SQ DAILY 02/12/24 02/12/24 Previous Rx's Medication Instructions Recorded Losartan [Cozaar] 50 mg PO DAILY #60 tab 08/05/23 Metoprolol Succinate (ER) [Toprol 25 mg PO DAILY #60 tab 08/05/23 XL] Linagliptin [Tradjenta] 5 mg PO DAILY #30 tab 09/05/23 Acetaminophen Tab [Tylenol] 650 mg PO Q6HR PRN tab 02/18/24 Amoxicillin/Potassium Clav 1 each PO AC-BID #20 tablet 02/18/24 [Amox-Clav 500-125 mg Tablet] Cyanocobalamin [Vitamin B-12] 1,000 mcg PO DAILY tab 02/18/24 Folic Acid 1 mg PO DAILY tab 02/18/24 Levothyroxine Sodium [Synthroid] 25 mcg PO DAILY@0630 #30 tab 02/18/24 Midodrine [ProAmatine] 5 mg PO AC-TID #90 tab 02/18/24 Allergies Allergy/AdvReac Type Severity Reaction Status Date / Time grass pollen Allergy Unknown Verified 02/12/24 16:06 latex Allergy Rash/Hives Verified 02/12/24 16:06 Sulfa (Sulfonamide Allergy Rash/Hives/ Verified 02/12/24 16:06 Antibiotics) Swelling venom-honey bee Allergy Anaphylaxis Verified 02/12/24 16:06 prochlorperazine edisylate AdvReac Vomiting Verified 02/12/24 16:06 [From Compazine] Review of Systems ROS Statement: Those systems with pertinent positive or pertinent negative responses have been documented in the HPI. ROS Other: All systems not noted in ROS Statement are negative. Past Medical History Past Medical History: Coronary Artery Disease (CAD), Cancer, COPD, CVA/TIA, Diabetes Mellitus, Deep Vein Thrombosis (DVT), Eye Disorder, GERD/Reflux, Hyperlipidemia, Hypertension, Myocardial Infarction (HI), Renal Disease, Rheumatoid Arthritis (RA), Syncope, Thyroid Disorder Additional Past Medical History / Comment(s): 09/16/16 with SBO with surgery/possible septic emboli with cavitary lesions bilateral lungs. Hx: left renal cell carcinoma with partial nephrectomy. 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 DVT left leg 7-8 yrs ago. hypothyroidism, chronic back pain, degenerative disks, hx UTI with sepsis secondary to ESBL producing E. coli 2015 requiring PICC line insertion for IV antibiotics. restless leg syndrome, peripheral neuropathy. Hx bilateral glaucoma, hx syncope r/t low blood sugars. No CPAP use. Last Myocardial Infarction Date:: 2019 History of Any Multi-Drug Resistant Organisms: ESBL, MRSA, VRE Date of last positivie culture/infection: 05/07/16 ESBL, 05/15/16 VRE, MRSA 09/2017 - upper lip MDRO Source:: URINE E.COLI, EC GALLINARUM Past Surgical History: Appendectomy, Bowel Resection, Section, Heart Catheterization, Heart Catheterization With Stent, Hernia Repair Additional Past Surgical History / Comment(s): 09/30 exploratory laparotomy with lysis of adhesions, bowel resection d/t obstruction. repair incarcerated incisional hernia with abdominal washout. thyroidectomy(non functioning). heart cath 06/28 - 100% occluded, unable to stent. partial left nephrectomy for left kidney renal cell carcinoma. colonoscopy, bilateral cataract removal with lens implants, 2 Sections. cardiac stent 03/2021 Past Anesthesia/Blood Transfusion Reactions: No Reported Reaction Date of Last Stent Placement:: 04/06/2021 Past Psychological History: Depression Smoking Status: Former smoker Past Alcohol Use History: None Reported Past Drug Use History: Marijuana - Past Family History Sister(s) Family Medical History: Cancer, Deep Vein Thrombosis (DVT) Additional Family Medical History / Comment(s): Patient has one sister that from liver cancer. Brother(s) Family Medical History: Cancer, Deep Vein Thrombosis (DVT) Additional Family Medical History / Comment(s): Patient has 1 brother with past ETOH, past drug abuse, DVTs. She has a second brother that has from throat cancer. Daughter(s) Family Medical History: Diabetes Mellitus, Myocardial Infarction (HI) Additional Family Medical History / Comment(s): Daughter at 23 yrs o ld from massive HI. Father Family Medical History: Myocardial Infarction (HI) Additional Family Medical History / Comment(s): from HI at age 44 Mother Family Medical History: Cancer Additional Family Medical History / Comment(s): B/L breast cancer General Exam Limitations: no limitations, altered mental status General appearance: alert, in no apparent distress, anxious Head exam: Present: atraumatic, normocephalic, normal inspection Eye exam: Present: normal appearance, PERRL, EOMI. Absent: scleral icterus, conjunctival injection, periorbital swelling ENT exam: Present: normal exam, mucous membranes moist Neck exam: Present: normal inspection. Absent: tenderness, meningismus, lymphadenopathy Respiratory exam: Present: normal lung sounds bilaterally. Absent: respiratory distress, wheezes, rales, rhonchi, stridor Cardiovascular Exam: Present: regular rate, normal rhythm, normal heart sounds. Absent: systolic murmur, diastolic murmur, rubs, gallop, clicks GI/Abdominal exam: Present: soft, normal bowel sounds. Absent: distended, tenderness, guarding, rebound, rigid Extremities exam: Present: normal inspection, full ROM, normal capillary refill. Absent: tenderness, pedal edema, joint swelling, calf tenderness Back exam: Present: normal inspection Neurological exam: Present: alert, oriented X3, CN II-XII intact Psychiatric exam: Present: normal affect, normal mood Skin exam: Present: warm, dry, intact, normal color. Absent: rash Course Vital Signs 02/12/24 02/12/24 02/12/24 12:11 14:37 14:52 Temperature 98 F 97.8 F Pulse Rate 81 73 71 Respiratory 20 16 17 Rate Blood Pressure 90/64 65/46 103/67 O2 Sat by Pulse 97 100 99 Oximetry 02/12/24 02/12/24 02/13/24 21:13 23:14 04:00 Temperature 98.1 F Pulse Rate 77 80 77 Respiratory 16 16 16 Rate Blood Pressure 132/79 163/82 103/64 O2 Sat by Pulse 99 99 98 Oximetry 02/13/24 02/13/24 02/13/24 06:00 13:59 18:06 Temperature 98.0 F Pulse Rate 75 75 96 Respiratory 16 16 16 Rate Blood Pressure 127/62 125/93 116/81 O2 Sat by Pulse 94 L 100 99 Oximetry 02/13/24 02/13/24 02/14/24 19:51 22:58 01:50 Temperature 98.4 F Pulse Rate 81 92 104 H Respiratory 16 18 17 Rate Blood Pressure 99/68 94/68 96/58 O2 Sat by Pulse 100 99 100 Oximetry 02/14/24 02/14/24 06:00 09:54 Temperature 97.8 F Pulse Rate 109 H 105 H Respiratory 18 18 Rate Blood Pressure 148/74 102/65 O2 Sat by Pulse 97 95 Oximetry - Reevaluation(s) Reevaluation #1: 02/12/24 13:05 QN completed by myself Dr Dawkins 02/12/24 15:19 Records reviewed Reevaluation #2: 02/12/24 15:19 Patient symptoms unchanged Reevaluation #3: 02/12/24 15:19 Patient informed of results questions answered Reevaluation #4: Was pt. sent in by a medical professional or institution (, IGSELL, CIRCUITRY NEGATIVE INSPECTOR, urgent care, hospital, or usp...) When possible be specific @ -no Did you speak to anyone other than the patient for history (EMS, parent, family, police, friend...)? What history was obtained from this source @ -no Did you review nursing and triage notes (agree or disagree)? Why? @ -agree Are old charts reviewed (outside hosp., previous admission, EMS record, old EKG, old radiological studies, urgent care reports/EKG's, usp records)? Report findings @ -yes Differential Diagnosis (chest pain, altered mental status, abdominal pain women, abdominal pain men, vaginal bleeding, weakness, fever, dyspnea, syncope, headache, dizziness, GI bleed, back pain, seizure, CVA, palpatations, mental health, musculoskeletal)? @ -prior EKG interpreted by me (3pts min.). @ -yes X-rays interpreted by me (1pt min.). @ -yes negative for acute disease CT interpreted by me (1pt min.). @ -Yes negative for acute disease U/S interpreted by me (1pt. min.). @ -no What testing was considered but not performed or refused? (CT, X-rays, U/S, labs)? Why? @ -none What meds were considered but not given or refused? Why? @ -none Did you discuss the management of the patient with other professionals (professionals i.e. , GISELL, CIRCUITRY NEGATIVE INSPECTOR, lab, RT, psych nurse, social worker assistant, long wall mining machine tender, teacher, articulation officer, sample case porter)? Give summary @ -no Was smoking cessation discussed for >3mins.? @ -no Was critical care preformed (if so, how long)? @ -no Were there social determinants of health that impacted care today? How? (Homelessness, low income, unemployed, alcoholism, drug addiction, transportation, low edu. Level, literacy, decrease access to med. care, skilled nursing, rehab)? @ -none Was there de-escalation of care discussed even if they declined (Discuss DNR or withdrawal of care, Hospice)? DNR status @ -no What co-morbidities impacted this encounter? (DM, HTN, Smoking, COPD, CAD, Cancer, CVA, ARF, Chemo, Hep., AIDS, mental health diagnosis, sleep apnea, morbid obesity)? @ -none Was patient admitted / discharged? Hospital course, mention meds given and route, prescriptions, significant lab abnormalities, going to OR and other pertinent info. @ - 64 female to the ER after a fall. Patient has no acute findings here in the emergency department with fall fall with weakness severe weakness and debility will admit for supportive care . Admitted Undiagnosed new problem with uncertain prognosis? @ -no Drug Therapy requiring intensive monitoring for toxicity (Heparin, Nitro, Insulin, Cardizem)? @ -no Were any procedures done? @ -no Diagnosis/symptom? @ -weakness debility fall head injury Acute, or Chronic, or Acute on Chronic? @ -Acute Uncomplicated (without systemic symptoms) or Complicated (systemic symptoms)? @ -Complicated Side effects of treatment? @ -no Exacerbation, Progression, or Severe Exacerbation? @ -exacerbation Poses a threat to life or bodily function? How? (Chest pain, USA, HI, pneumonia, PE, COPD, DKA, ARF, appy, cholecystitis, CVA, Diverticulitis, Homicidal, Suicidal, threat to staff... and all critical care pts) @ -yes debility Reevaluation #5: Differential Syncope: Valvular disease, hypertrophic cardiomyopathy, pulmonary embolism, tamponade, tachycardia, bradycardia, HI, hypovolemia, hemorrhage, dissection, anemia, intr acranial hemorrhage, seizure, hypoglycemia, carbon monoxide poisoning, this is not meant to be an all-inclusive list. - Consultations Consultation #1: Admitting physicians who agreed to admit this patient Medical Decision Making - Medical Decision Making 64 female to the ER after a fall. Patient has no acute findings here in the emergency department with fall fall with weakness severe weakness and debility will admit for supportive care - Lab Data Result diagrams: 02/18/24 03:28 02/18/24 03:28 Lab Results 02/12/24 02/12/24 02/12/24 Range/Units 15:00 15:00 15:00 WBC 7.0 (3.8-10.6) k/uL RBC 3.97 (3.80-5.40) m/uL Hgb 12.1 (11.4-16.0) gm/dL Hct 36.4 (34.0-46.0) % MCV 91.7 (80.0-100.0) fL MCH 30.4 (25.0-35.0) pg MCHC 33.1 (31.0-37.0) g/dL RDW 14.3 (11.5-15.5) % Plt Count 339 (150-450) k/uL MPV 7.5 Neutrophils % 73 % Lymphocytes % 20 % Monocytes % 4 % Eosinophils % 2 % Basophils % 0 % Neutrophils # 5.1 (1.3-7.7) k/uL Lymphocytes # 1.4 (1.0-4.8) k/uL Monocytes # 0.3 (0-1.0) k/uL Eosinophils # 0.2 (0-0.7) k/uL Basophils # 0.0 (0-0.2) k/uL PT 9.9 L (10.0-12.5) sec INR 0.9 (<1.2) APTT 22.3 (22.0-30.0) sec Sodium 129 L (137-145) mmol/L Potassium 4.7 (3.5-5.1) mmol/L Chloride 91 L (98-107) mmol/L Carbon Dioxide 28 (22-30) mmol/L Anion Gap 10 mmol/L BUN 27 H (7-17) mg/dL Creatinine 1.52 H (0.52-1.04) mg/dL Est GFR (CKD-EPI)AfAm 42 (>60 ml/min/1.73 sqM) Est GFR (CKD-EPI)NonAf 36 (>60 ml/min/1.73 sqM) Glucose 442 H (74-99) mg/dL Plasma Lactic Acid Ab (0.7-2.0) mmol/L Calcium 9.9 (8.4-10.2) mg/dL Phosphorus 4.6 H (2.5-4.5) mg/dL Magnesium 2.1 (1.6-2.3) mg/dL Total Bilirubin 0.6 (0.2-1.3) mg/dL AST 21 (14-36) U/L ALT 11 (4-34) U/L Alkaline Phosphatase 142 H (38-126) U/L Troponin I (0.000-0.034) ng/mL NT-Pro-B Natriuret Pep 2300 pg/mL Total Protein 7.4 (6.3-8.2) g/dL Albumin 4.4 (3.5-5.0) g/dL TSH 95.000 H (0.465-4.680) mIU/L Total T4 (4.5 - 10.9) ug/dL 02/12/24 02/12/24 02/12/24 Range/Units 15:00 15:00 15:00 WBC (3.8-10.6) k/uL RBC (3.80-5.40) m/uL Hgb (11.4-16.0) gm/dL Hct (34.0-46.0) % MCV (80.0-100.0) fL MCH (25.0-35.0) pg MCHC (31.0-37.0) g/dL RDW (11.5-15.5) % Plt Count (150-450) k/uL MPV Neutrophils % % Lymphocytes % % Monocytes % % Eosinophils % % Basophils % % Neutrophils # (1.3-7.7) k/uL Lymphocytes # (1.0-4.8) k/uL Monocytes # (0-1.0) k/uL Eosinophils # (0-0.7) k/uL Basophils # (0-0.2) k/uL PT (10.0-12.5) sec INR (<1.2) APTT (22.0-30.0) sec Sodium (137-145) mmol/L Potassium (3.5-5.1) mmol/L Chloride (98-107) mmol/L Carbon Dioxide (22-30) mmol/L Anion Gap mmol/L BUN (7-17) mg/dL Creatinine (0.52-1.04) mg/dL Est GFR (CKD-EPI)AfAm (>60 ml/min/1.73 sqM) Est GFR (CKD-EPI)NonAf (>60 ml/min/1.73 sqM) Glucose (74-99) mg/dL Plasma Lactic Acid Ab 1.9 (0.7-2.0) mmol/L Calcium (8.4-10.2) mg/dL Phosphorus (2.5-4.5) mg/dL Magnesium (1.6-2.3) mg/dL Total Bilirubin (0.2-1.3) mg/dL AST (14-36) U/L ALT (4-34) U/L Alkaline Phosphatase (38-126) U/L Troponin I <0.012 (0.000-0.034) ng/mL NT-Pro-B Natriuret Pep pg/mL Total Protein (6.3-8.2) g/dL Albumin (3.5-5.0) g/dL TSH (0.465-4.680) mIU/L Total T4 2.2 L (4.5 - 10.9) ug/dL - EKG Data -: EKG Interpreted by Me (EKG is sinus 80 NV 212 QRS 146 QTc 441) - Radiology Data Radiology results: report reviewed (CT brain C-spine chest pelvis x-ray negative for acute disease), image reviewed Disposition Clinical Impression: Fall, Altered mental status, Weakness, Renal insufficiency, Delirium due to general medical condition Disposition: ADMITTED IP TO THIS HOSP Condition: Fair Is patient prescribed a controlled substance at d/c from ED?: No Time of Disposition: 14:10
--- NOTE | 2024-02-12 13:44 | CT ---
EXAMINATION TYPE: CT brain mindy doss DATE OF EXAM: 02/12/2024 COMPARISON: 09/02/2023 HISTORY: Pain CT DLP: 1202.2 mGycm Automated exposure control for dose reduction was used. TECHNIQUE: CT scan of the head and cervical spine are performed without contrast. FINDINGS: Moderate degenerative change with encephalomalacia and remote ischemia involving the post erior right parietal and parietal occipital junction. No midline shift. No mass effect. Hypoattenuati on the white matter most typical remote microvascular ischemia. Orbits intact. Multilevel severe degenerative disc disease with grade 1 anterolisthesis C5-6. Multilevel facet arthr opathy. No acute fracture. There is tiny micronodules in the lung apices. There is a posterior spondylosis at levels C4-C7. Cannot exclude canal stenosis. Suspect multilevel f oraminal encroachment. Recommend follow-up MRI. Attenuation of the trachea, likely related to retaine d secretion. IMPRESSION: 1. There is no acute fracture or dislocation evident in the cervical spine. 2. No acute intracranial hemorrhage, mass effect, or midline shift is seen.
--- NOTE | 2024-02-12 13:51 | XR ---
EXAMINATION TYPE: XR lumbar spine 2 or 3V DATE OF EXAM: 02/12/2024 1:32 PM CLINICAL INDICATION: Female, 64 years old with history of fall; [facility] COMPARISON: 08/11/2021 TECHNIQUE: XR lumbar spine 2 or 3V - Frontal, lateral and coned in L5-S1 lateral views of the spine. FINDINGS: Abnormal appearance L3 vertebrae with compression deformity suggested. straightening of the alignment of the spine. Scattered disc space narrowing. Multilevel marginal osteophyte formation thr oughout the visualized spine. There is facet joint arthropathy throughout the spine. Scattered at vidhya st mild neural foraminal stenosis. Atherosclerosis of the arterial vasculature. IMPRESSION: 1. New from prior, Impression deformity to the L3 vertebrae correlate for acute compression fracture. 2. Large severe multilevel disc degeneration.
--- NOTE | 2024-02-12 14:20 | XR ---
EXAMINATION TYPE: XR chest 1V DATE OF EXAM: 02/12/2024 1:32 PM CLINICAL INDICATION: Female, 64 years old with history of fall; [facility] COMPARISON: Chest radiographs from 09/02/2023 TECHNIQUE: XR chest 1V Frontal view of the chest. FINDINGS: Lungs/Pleura: There is no evidence of pleural effusion, focal consolidation, or pneumothorax. Pulmonary vascularity: Unremarkable. Heart/mediastinum: Cardiomediastinal silhouette is unremarkable. A loop recorder projects over the le ft thorax over the heart. Musculoskeletal: No acute osseous pathology. Other findings: None Lines/Tubes: IMPRESSION: No acute cardiopulmonary disease/process.
--- NOTE | 2024-02-12 14:20 | XR ---
EXAMINATION TYPE: XR pelvis AP view DATE OF EXAM: 02/12/2024 1:32 PM CLINICAL INDICATION: Female, 64 years old with history of fall; COMPARISON: 06/04/2023 TECHNIQUE: XR pelvis AP view, examined in a single projection. FINDINGS: There is no evidence of fracture or dislocation. There is no soft tissue abnormality. No a bnormal calcifications are present. The spine appears intact. The hips appear intact. Osteophyte form ation of the superior acetabulum bilaterally with mild joint space narrowing. IMPRESSION: No acute osseous pathology. Mild degeneration changes of the hip.
[2024-02-12] MEDS: ACETAMINOPHEN TAB 500 MG TAB PO STA (14:26)
[2024-02-12] MEDS: KETOROLAC 15 MG/ML 1 ML VIAL IM STA (14:27)
[2024-02-12] MEDS: SODIUM CHLORIDE 0.9% 1,000 ML IV STA (15:15)
[2024-02-12] MEDS: SODIUM CHLORIDE 0.9% 500 ML 500 ML IV STA (15:16)
[2024-02-12] MEDS ORDERED: NALOXONE 0.4 MG/ML 1 ML VIAL IV PRN (15:25)
[2024-02-12] MEDS ORDERED: ONDANSETRON 4 MG/2 ML VIAL IVP PRN (15:25)
[2024-02-12 15:34] LABS: Basophils % (A) 0 %; Eosinophils # (A) 0.2 k/uL (0-0.7); Eosinophils % (A) 2 %; HCT 36.4 % (34.0-46.0); HGB 12.1 gm/dL (11.4-16.0); Lymphocytes # (A) 1.4 k/uL (1.0-4.8); Lymphocytes % (A) 20 %; MCH 30.4 pg (25.0-35.0); MCHC 33.1 g/dL (31.0-37.0); MCV 91.7 fL (80.0-100.0); Mean Platelet Volume 7.5; Monocytes # (A) 0.3 k/uL (0-1.0); Monocytes % (A) 4 %; Neutrophils # (A) 5.1 k/uL (1.3-7.7); Neutrophils % (A) 73 %; Platelet Count 339 k/uL (150-450); RBC 3.97 m/uL (3.80-5.40); RDW 14.3 % (11.5-15.5)
[2024-02-12 16:01] LABS: ALT 11 U/L (4-34); AST 21 U/L (14-36); African American GFR (CKD) 42 (>60 ml/min/1.73 sqM); Albumin 4.4 g/dL (3.5-5.0); Alkaline Phosphatase 142 U/L (38-126); Anion Gap 10 mmol/L; Blood Urea Nitrogen 27 mg/dL (7-17); Calcium 9.9 mg/dL (8.4-10.2); Carbon Dioxide 28 mmol/L (22-30); Chloride 91 mmol/L (98-107); Glucose 442 mg/dL (74-99); Magnesium 2.1 mg/dL (1.6-2.3); Non-African American GFR(CKD) 36 (>60 ml/min/1.73 sqM); Phosphorus 4.6 mg/dL (2.5-4.5); Potassium 4.7 mmol/L (3.5-5.1); Sodium 129 mmol/L (137-145); Total Bilirubin 0.6 mg/dL (0.2-1.3); Total Protein 7.4 g/dL (6.3-8.2)
[2024-02-12 16:08] LABS: NT-Pro-B-Type Natriuretic Pept 2300 pg/mL
[2024-02-12 16:25] LABS: INR 0.9 (<1.2)
[2024-02-12 16:26] LABS: Partial Thromboplastin Time 22.3 sec (22.0-30.0); Prothrombin Time 9.9 sec (10.0-12.5)
[2024-02-12] MEDS: ACETAMINOPHEN IV (For NPO) 1,000 MG in EMPTY BAG 1 BAG IVPB ONE (17:15)
[2024-02-12] MEDS: SODIUM CHLORIDE 0.9% 1,000 ML IV SCH (17:15)
[2024-02-12 21:41] LABS: Glucose,Whole Blood >600 mg/dL (70-110)
[2024-02-12] MEDS: HYDROcodone/APAP 10-325MG 1 EACH TAB PO ONE (23:55)
[2024-02-13] LABS: Glucose,Whole Blood >600 mg/dL (70-110)
[2024-02-13 01:12] LABS: Glucose,Whole Blood >600 mg/dL (70-110)
[2024-02-13 01:23] LABS: Appearance,Urine Clear (Clear); Bilirubin,Urine Negative (Negative); Blood,Urine Negative (Negative); Color,Urine Colorless; Glucose,Urine (UA) 4+ (Negative); Ketones,Urine Negative (Negative); Leukocyte Esterase,Urine Negative (Negative); Nitrite,Urine Negative (Negative); PH, Urine 5.5 (5.0-8.0); Protein,Urine Negative (Negative); Specific Gravity,Urine 1.025 (1.001-1.035); Urobilinogen,Urine <2.0 mg/dL (<2.0)
[2024-02-13] MEDS: INSULIN ASPART (NovoLOG) 100 UNIT/ML VIAL SQ STA (02:17)
[2024-02-13 03:58] LABS: Glucose,Whole Blood 181 mg/dL (70-110)
[2024-02-13 06:20] LABS: Glucose,Whole Blood 30 mg/dL (70-110)
[2024-02-13] MEDS: DEXTROSE 50% SYRINGE 50 ML IVP STA ×2 (06:22→09:10)
[2024-02-13 06:35] LABS: Glucose,Whole Blood 189 mg/dL (70-110)
[2024-02-13 06:47] LABS: Glucose,Whole Blood 153 mg/dL (70-110)
[2024-02-13 07:02] LABS: Glucose,Whole Blood 119 mg/dL (70-110)
[2024-02-13 08:53] LABS: Basophils # (A) 0.03 X 10*3/uL (0.00-0.10); Basophils % (A) 0.4 %; Eosinophils % (A) 2.7 %; HCT 31.7 % (37.2-46.3); HGB 10.7 g/dL (12.0-15.0); Lymphocytes # (A) 3.38 X 10*3/uL (0.90-5.00); Lymphocytes % (A) 45.7 %; MCH 30.1 pg (27.0-32.0); MCHC 33.8 g/dL (32.0-37.0); MCV 89.3 FL (80.0-97.0); Mean Platelet Volume 10.4 FL (9.5-12.2); Monocytes # (A) 0.59 X 10*3/uL (0.20-1.00); NRBC Per 100 WBC 0 X 10*3/uL (0.00-0.01); Neutrophils # (A) 3.19 X 10*3/uL (1.80-7.70); Neutrophils % (A) 43.1 %; Platelet Count 335 X 10*3/uL (140-440); RBC 3.55 X 10*6/uL (4.10-5.20); RDW 13.7 % (11.5-14.5)
[2024-02-13 09:11] LABS: Glucose,Whole Blood 46 mg/dL (70-110)
[2024-02-13] MEDS: INSULIN ASPART (NovoLOG) 100 UNIT/ML VIAL SQ SCH (09:23)
[2024-02-13] MEDS: PANTOPRAZOLE 40 MG/10 ML VIAL IV SCH (09:28)
[2024-02-13 09:46] LABS: ALT 9 U/L (8-44); AST 15 U/L (13-35); Albumin 4.2 g/dL (3.8-4.9); Albumin/Globulin Ratio 1.83 Ratio (1.60-3.17); Alkaline Phosphatase 128 U/L (41-126); BUN/Creat Ratio 17.31 Ratio (12.00-20.00); Blood Urea Nitrogen 27.7 mg/dL (9.0-27.0); Calcium 9.3 mg/dL (8.7-10.3); Carbon Dioxide 23.2 mmol/L (21.6-31.8); Chloride 97 mmol/L (96-109); Globulin 2.3 g/dL (1.6-3.3); Glucose 27 mg/dL (70-110); Potassium 3.2 mmol/L (3.5-5.5); Sodium 134 mmol/L (135-145); Total Bilirubin <0.2 mg/dL (0.3-1.2); Total Protein 6.5 g/dL (6.2-8.2)
[2024-02-13] MEDS: D5-0.45% NACL WITH KCL 20MEQ/L 1,000 ML IV SCH (10:05)
[2024-02-13 10:43] LABS: Glucose,Whole Blood 310 mg/dL (70-110)
[2024-02-13 11:58] LABS: Glucose,Whole Blood 489 mg/dL (70-110)
[2024-02-13 13:55] LABS: Glucose,Whole Blood 553 mg/dL (70-110)
[2024-02-13] MEDS: INSULIN DETEMIR (LEVEMIR) 100 UNIT/ML SYR SQ SCH (14:47)
[2024-02-13] MEDS: ASPIRIN 81 MG PO SCH (14:48)
[2024-02-13 16:53] LABS: Glucose,Whole Blood 427 mg/dL (70-110)
[2024-02-13 17:58] LABS: Glucose,Whole Blood 333 mg/dL (70-110)
[2024-02-13] MEDS: ISOSORBIDE MONONITRATE ER 30 MG TAB.ER.24H PO SCH (18:08)
[2024-02-13] MEDS: ACETAMINOPHEN TAB 325 MG TAB PO PRN (18:09)
[2024-02-13 19:51] LABS: Glucose,Whole Blood 414 mg/dL (70-110)
[2024-02-13 21:16] LABS: Glucose,Whole Blood 433 mg/dL (70-110)
[2024-02-13] MEDS: MIRTAZAPINE 15 MG TAB PO SCH (21:18)
[2024-02-13] MEDS: cilostazoL 100 MG TAB PO SCH (21:18)
[2024-02-13 22:58] LABS: Glucose,Whole Blood 324 mg/dL (70-110)
[2024-02-14 06:34] LABS: Glucose,Whole Blood 424 mg/dL (70-110)
[2024-02-14] MEDS: SODIUM CHLORIDE 0.9% 1,000 ML IV SCH ×2 (07:17→07:18)
[2024-02-14 07:29] LABS: Basophils % (A) 0 %; Eosinophils # (A) 0.2 k/uL (0-0.7); Eosinophils % (A) 5 %; HCT 32.3 % (34.0-46.0); HGB 10.1 gm/dL (11.4-16.0); Hypochromasia Moderate; Lymphocytes # (A) 1.4 k/uL (1.0-4.8); Lymphocytes % (A) 35 %; MCH 29.8 pg (25.0-35.0); MCHC 31.4 g/dL (31.0-37.0); MCV 94.8 fL (80.0-100.0); Mean Platelet Volume 8.6; Monocytes # (A) 0.2 k/uL (0-1.0); Monocytes % (A) 4 %; Neutrophils # (A) 2.1 k/uL (1.3-7.7); Neutrophils % (A) 54 %; Platelet Count 305 k/uL (150-450); RDW 14.4 % (11.5-15.5); WBC 3.9 k/uL (3.8-10.6)
[2024-02-14 07:45] LABS: African American GFR (CKD) 60 (>60 ml/min/1.73 sqM); Anion Gap 6 mmol/L; Blood Urea Nitrogen 26 mg/dL (7-17); Calcium 8.4 mg/dL (8.4-10.2); Carbon Dioxide 20 mmol/L (22-30); Chloride 100 mmol/L (98-107); Glucose 425 mg/dL (74-99); Non-African American GFR(CKD) 52 (>60 ml/min/1.73 sqM); Potassium 5.1 mmol/L (3.5-5.1); Sodium 126 mmol/L (137-145)
[2024-02-14] MEDS: LINAGLIPTIN 5 MG TABLET PO SCH (08:08)
[2024-02-14] MEDS: LOSARTAN 50 MG TAB PO SCH (08:08)
[2024-02-14] MEDS: METOPROLOL SUCCINATE (ER) 25 MG TAB.ER.24H PO SCH (08:08)
[2024-02-14 08:09] LABS: Glucose,Whole Blood 374 mg/dL (70-110)
[2024-02-14] MEDS: VENLAFAXINE HCL ER 75 MG CAP PO SCH (08:09)
[2024-02-14 12:16] LABS: Glucose,Whole Blood 386 mg/dL (70-110)
--- NOTE | 2024-02-14 15:57 | P.HPIM ---
History of Present Illness H&P Date: 02/13/24 Chief Complaint: Fall 64 female, history of hypertension, hyperlipidemia, DVT, CAD, COPD, diabetes mellitus, presents to the ER for evaluation of a syncopal event resulting in fall with back pain and hitting her head. Patient states that she has diabetes and does occasionally have syncopal events. Patient feels very weak here in the ER denying chest pain or shortness of breath Patient had a fall with back pain fall with hitting her head feels weak lightheaded dizzy history of syncope unsure if she may have had a syncopal event today. Blood work completed in ED reveals WBC of 7.0, hemoglobin of 12.1 and platelet count of 339, PT 9.9 with INR 0.9, sodium 129, potassium 4.7, BUNs/creatinine of 27/1.52, blood glucose greater than 600 with phosphorus elevated at 4.6 and alkaline phosphatase of 142, TSH elevated at 95.0 with total T4 of 2.2 CT of the head and cervical spine is unremarkable Chest x-ray, pelvic x-ray and lumbar spinal x-ray does not reveal any acute injuries Review of Systems REVIEW OF SYSTEMS: CONSTITUTIONAL: No fever, no malaise, no fatigue. HEENT: No recent visual problems or hearing problems. Denied any sore throat. CARDIOVASCULAR: No chest pain, orthopnea, PND, no palpitations, no syncope. PULMONARY: No shortness of breath, no cough, no hemoptysis. GASTROINTESTINAL: No diarrhea, no nausea, no vomiting, no abdominal pain. NEUROLOGICAL: No headaches, no weakness, no numbness. HEMATOLOGICAL: Denies any bleeding or petechiae. GENITOURINARY: Denies any burning micturition, frequency, or urgency. MUSCULOSKELETAL/RHEUMATOLOGICAL: Denies any joint pain, swelling, or any muscle pain. ENDOCRINE: Denies any polyuria or polydipsia. The rest of the 14-point review of systems is negative. Past Medical History Past Medical History: Coronary Artery Disease (CAD), Cancer, COPD, CVA/TIA, Diabetes Mellitus, Deep Vein Thrombosis (DVT), Eye Disorder, GERD/Reflux, H yperlipidemia, Hypertension, Myocardial Infarction (GA), Renal Disease, Rheumatoid Arthritis (RA), Syncope, Thyroid Disorder Additional Past Medical History / Comment(s): 09/16/16 with SBO with surgery/possible septic emboli with cavitary lesions bilateral lungs. Hx: left renal cell carcinoma with partial nephrectomy. 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 DVT left leg 7-8 yrs ago. hypothyroidism, chronic back pain, degenerative disks, hx UTI with sepsis secondary to ESBL producing E. coli 2015 requiring PICC line insertion for IV antibiotics. restless leg syndrome, peripheral neuropathy. Hx bilateral glaucoma, hx syncope r/t low blood sugars. No CPAP use. Last Myocardial Infarction Date:: 2019 History of Any Multi-Drug Resistant Organisms: ESBL, MRSA, VRE Date of last positivie culture/infection: 05/07/16 ESBL, 05/15/16 VRE, MRSA 09/2017 - upper lip MDRO Source:: URINE E.COLI, EC GALLINARUM Past Surgical History: Appendectomy, Bowel Resection, Section, Heart Catheterization, Heart Catheterization With Stent, Hernia Repair Additional Past Surgical History / Comment(s): 09/30 exploratory laparotomy with lysis of adhesions, bowel resection d/t obstruction. repair incarcerated incisional hernia with abdominal washout. thyroidectomy(non functioning). heart cath 06/28 - 100% occluded, unable to stent. partial left nephrectomy for left kidney renal cell carcinoma. colonoscopy, bilateral cataract removal with lens implants, 2 Sections. cardiac stent 03/2021 Past Anesthesia/Blood Transfusion Reactions: No Reported Reaction Date of Last Stent Placement:: 04/06/2021 Past Psychological History: Depression Smoking Status: Former smoker Past Alcohol Use History: None Reported Past Drug Use History: Marijuana - Past Family History Sister(s) Family Medical History: Cancer, Deep Vein Thrombosis (DVT) Additional Family Medical History / Comment(s): Patient has one sister that from liver cancer. Brother(s) Family Medical History: Cancer, Deep Vein Thrombosis (DVT) Additional Family Medical History / Comment(s): Patient has 1 brother with past ETOH, past drug abuse, DVTs. She has a second brother that has from throat cancer. Daughter(s) Family Medical History: Diabetes Mellitus, Myocardial Infarction (GA) Additional Family Medical History / Comment(s): Daughter at 23 yrs old from massive GA. Father Family Medical History: Myocardial Infarction (GA) Additional Family Medical History / Comment(s): from GA at age 44 Mother Family Medical History: Cancer Additional Family Medical History / Comment(s): B/L breast cancer Medications and Allergies Home Medications Medication Instructions Recorded Confirmed Type Venlafaxine HCl [Effexor XR] 225 mg PO DAILY 10/21/16 02/12/24 History Pantoprazole Sodium [Protonix] 40 mg PO BID 04/06/20 02/12/24 History Aspirin EC [Ecotrin Low Dose] 81 mg PO DAILY 10/03/22 02/12/24 History Isosorbide Mononitrate ER [Imdur] 30 mg PO DAILY 04/10/23 02/12/24 History Mirtazapine 7.5 mg PO HS 04/10/23 02/12/24 History cilostazoL [Pletal] 100 mg PO BID 08/02/23 02/12/24 History Losartan [Cozaar] 50 mg PO DAILY #60 tab 08/05/23 02/12/24 Rx Metoprolol Succinate (ER) [Toprol 25 mg PO DAILY #60 tab 08/05/23 02/12/24 Rx XL] Linagliptin [Tradjenta] 5 mg PO DAILY #30 tab 09/05/23 02/12/24 Rx Glucagon [Gvoke Pfs 1-Pack Syringe] 1 mg SQ DIRECTED PRN 02/12/24 02/12/24 History INSULIN LISPRO (HumaLOG) [humaLOG] 4 units SQ AC-TID 02/12/24 02/12/24 History INSULIN LISPRO (HumaLOG) [humaLOG] See Protocol SQ ACHS 02/12/24 02/12/24 History Insulin Glargine [Lantus Vial] 10 unit SQ DAILY 02/12/24 02/12/24 History Allergies Allergy/AdvReac Type Severity Reaction Status Date / Time grass pollen Allergy Unknown Verified 02/12/24 16:06 latex Allergy Rash/Hives Verified 02/12/24 16:06 Sulfa (Sulfonamide Allergy Rash/Hives/ Verified 02/12/24 16:06 Antibiotics) Swelling venom-honey bee Allergy Anaphylaxis Verified 02/12/24 16:06 prochlorperazine edisylate AdvReac Vomiting Verified 02/12/24 16:06 [From Compazine] Physical Exam Vitals: Vital Signs Temp Pulse Resp BP Pulse Ox 02/13/24 13:59 75 16 125/93 100 02/13/24 06:00 75 16 127/62 94 L 02/13/24 04:00 77 16 103/64 98 02/12/24 23:14 80 16 163/82 99 02/12/24 21:13 98.1 F 77 16 132/79 99 02/12/24 14:52 71 17 103/67 99 02/12/24 14:37 97.8 F 73 16 65/46 100 General appearance: alert, in no apparent distress Head exam: Present: atraumatic, normocephalic, normal inspection Eye exam: Present: normal appearance, PERRL, EOMI. Absent: scleral icterus, conjunctival injection, periorbital swelling ENT exam: Present: normal exam, mucous membranes moist Neck exam: Present: normal inspection. Absent: tenderness, meningismus, lymphadenopathy Respiratory exam: Present: normal lung sounds bilaterally. Absent: respiratory distress, wheezes, rales, rhonchi, stridor Cardiovascular Exam: Present: regular rate, normal rhythm, normal heart sounds. Absent: systolic murmur, diastolic murmur, rubs, gallop, clicks GI/Abdominal exam: Present: soft, normal bowel sounds. Absent: distended, tenderness, guarding, rebound, rigid Extremities exam: Present: normal inspection, full ROM, normal capillary refill. Absent: tenderness, pedal edema, joint swelling, calf tenderness Back exam: Present: normal inspection Neurological exam: Present: alert, oriented X3, CN II-XII intact Psychiatric exam: Present: normal affect, normal mood Skin exam: Present: warm, dry, intact, normal color. Absent: rash Results CBC & Chem 7: 02/14/24 06:34 02/14/24 06:34 Labs: Abnormal Lab Results - Last 24 Hours (Table) 02/12/24 02/12/24 02/12/24 Range/Units 15:00 15:00 15:00 RBC (4.10-5.20) X 10*6/uL Hgb (12.0-15.0) g/dL Hct (37.2-46.3) % PT 9.9 L (10.0-12.5) sec Sodium 129 L (137-145) mmol/L Potassium (3.5-5.5) mmol/L Chloride 91 L (98-107) mmol/L Anion Gap (4.00-12.00) mmol/L BUN 27 H (7-17) mg/dL Creatinine 1.52 H (0.52-1.04) mg/dL Est GFR (CKD-EPI) (>=60) Glucose 442 H (74-99) mg/dL POC Glucose (mg/dL) (70-110) mg/dL Phosphorus 4.6 H (2.5-4.5) mg/dL Total Bilirubin (0.3-1.2) mg/dL Alkaline Phosphatase 142 H (38-126) U/L TSH 95.000 H (0.465-4.680) mIU/L Total T4 2.2 L (4.5 - 10.9) ug/dL Urine Glucose (UA) (Negative) 02/12/24 02/12/24 02/13/24 Range/Units 21:39 23:59 01:10 RBC (4.10-5.20) X 10*6/uL Hgb (12.0-15.0) g/dL Hct (37.2-46.3) % PT (10.0-12.5) sec Sodium (137-145) mmol/L Potassium (3.5-5.5) mmol/L Chloride (98-107) mmol/L Anion Gap (4.00-12.00) mmol/L BUN (7-17) mg/dL Creatinine (0.52-1.04) mg/dL Est GFR (CKD-EPI) (>=60) Glucose (74-99) mg/dL POC Glucose (mg/dL) >600 H* >600 H* >600 H* (70-110) mg/dL Phosphorus (2.5-4.5) mg/dL Total Bilirubin (0.3-1.2) mg/dL Alkaline Phosphatase (38-126) U/L TSH (0.465-4.680) mIU/L Total T4 (4.5 - 10.9) ug/dL Urine Glucose (UA) (Negative) 02/13/24 02/13/24 02/13/24 Range/Units 01:12 03:56 06:14 RBC (4.10-5.20) X 10*6/uL Hgb (12.0-15.0) g/dL Hct (37.2-46.3) % PT (10.0-12.5) sec Sodium 134 L (137-145) mmol/L Potassium 3.2 L (3.5-5.5) mmol/L Chloride (98-107) mmol/L Anion Gap 13.80 H (4.00-12.00) mmol/L BUN 27.7 H (7-17) mg/dL Creatinine 1.6 H (0.52-1.04) mg/dL Est GFR (CKD-EPI) 36 L (>=60) Glucose 27 A* (74-99) mg/dL POC Glucose (mg/dL) 181 H (70-110) mg/dL Phosphorus (2.5-4.5) mg/dL Total Bilirubin <0.2 L (0.3-1.2) mg/dL Alkaline Phosphatase 128 H (38-126) U/L TSH (0.465-4.680) mIU/L Total T4 (4.5 - 10.9) ug/dL Urine Glucose (UA) 4+ H (Negative) 02/13/24 02/13/24 02/13/24 Range/Units 06:18 06:21 06:33 RBC 3.55 L (4.10-5.20) X 10*6/uL Hgb 10.7 L (12.0-15.0) g/dL Hct 31.7 L (37.2-46.3) % PT (10.0-12.5) sec Sodium (137-145) mmol/L Potassium (3.5-5.5) mmol/L Chloride (98-107) mmol/L Anion Gap (4.00-12.00) mmol/L BUN (7-17) mg/dL Creatinine (0.52-1.04) mg/dL Est GFR (CKD-EPI) (>=60) Glucose (74-99) mg/dL POC Glucose (mg/dL) 30 L* 189 H (70-110) mg/dL Phosphorus (2.5-4.5) mg/dL Total Bilirubin (0.3-1.2) mg/dL Alkaline Phosphatase (38-126) U/L TSH (0.465-4.680) mIU/L Total T4 (4.5 - 10.9) ug/dL Urine Glucose (UA) (Negative) 02/13/24 02/13/24 02/13/24 Range/Units 06:46 07:01 09:06 RBC (4.10-5.20) X 10*6/uL Hgb (12.0-15.0) g/dL Hct (37.2-46.3) % PT (10.0-12.5) sec Sodium (137-145) mmol/L Potassium (3.5-5.5) mmol/L Chloride (98-107) mmol/L Anion Gap (4.00-12.00) mmol/L BUN (7-17) mg/dL Creatinine (0.52-1.04) mg/dL Est GFR (CKD-EPI) (>=60) Glucose (74-99) mg/dL POC Glucose (mg/dL) 153 H 119 H 46 L* (70-110) mg/dL Phosphorus (2.5-4.5) mg/dL Total Bilirubin (0.3-1.2) mg/dL Alkaline Phosphatase (38-126) U/L TSH (0.465-4.680) mIU/L Total T4 (4.5 - 10.9) ug/dL Urine Glucose (UA) (Negative) 02/13/24 02/13/24 02/13/24 Range/Units 10:41 11:57 13:49 RBC (4.10-5.20) X 10*6/uL Hgb (12.0-15.0) g/dL Hct (37.2-46.3) % PT (10.0-12.5) sec Sodium (137-145) mmol/L Potassium (3.5-5.5) mmol/L Chloride (98-107) mmol/L Anion Gap (4.00-12.00) mmol/L BUN (7-17) mg/dL Creatinine (0.52-1.04) mg/dL Est GFR (CKD-EPI) (>=60) Glucose (74-99) mg/dL POC Glucose (mg/dL) 310 H 489 H 553 H* (70-110) mg/dL Phosphorus (2.5-4.5) mg/dL Total Bilirubin (0.3-1.2) mg/dL Alkaline Phosphatase (38-126) U/L TSH (0.465-4.680) mIU/L Total T4 (4.5 - 10.9) ug/dL Urine Glucose (UA) (Negative) Assessment and Plan Assessment: 1. Fall; questionable syncopal episode -Patient will be admitted to telemetry; monitor EKG and trend troponin; orthostatic vital signs -Placed on IV fluids and normal saline at rate of 75 cc an hour 2. Hyperglycemia without acidosis; Patient reports she has an insulin pump which is probably malfunctioning; patient received 15 units of IV insulin in the ED; will resume home dose of Lantus 15 units SQ nightly; Accu-Cheks before every meal and at bedtime with sliding scale; will be placed back on insulin pump once investigated 3. Hyponatremia; likely associated with hyperglycemia; patient is placed on IV fluids in form of normal saline; electrolytes closely; adjust medications as needed 4. Hypothyroidism; new diagnosis; TSH is markedly elevated; total T4 is low; will order free T4 -Start patient on Synthroid 0.5 mcg daily -Recommending repeat thyroid profile in 4 to 6 weeks 5. Hypertension; losartan 50 mg daily; metoprolol 25 mg daily 6. Diabetes mellitus with long-term insulin use; insulin (likely malf unctioning; monitor Accu-Cheks before every meal and at bedtime with insulin sliding scale; continue with home dose of Tradjenta; and has been placed on long-acting insulin 7. Anxiety/depression; Remeron 7.5 mg nightly; Effexor XR to 25 mg daily DVT prophylaxis; SCDs/subcu heparin CODE STATUS full code;
--- NOTE | 2024-02-14 15:58 | P.PN ---
Subjective Progress Note Date: 02/14/24 64 female, history of hypertension, hyperlipidemia, DVT, CAD, COPD, diabetes mellitus, presents to the ER for evaluation of a syncopal event resulting in fall with back pain and hitting her head. Patient states that she has diabetes and does occasionally have syncopal events. Patient feels very weak here in the ER denying chest pain or shortness of breath Patient had a fall with back pain fall with hitting her head feels weak lightheaded dizzy history of syncope unsure if she may have had a syncopal event today. Blood work completed in ED reveals WBC of 7.0, hemoglobin of 12.1 and platelet count of 339, PT 9.9 with INR 0.9, sodium 129, potassium 4.7, BUNs/creatinine of 27/1.52, blood glucose greater than 600 with phosphorus elevated at 4.6 and alkaline phosphatase of 142, TSH elevated at 95.0 with total T4 of 2.2 CT of the head and cervical spine is unremarkable Chest x-ray, pelvic x-ray and lumbar spinal x-ray does not reveal any acute injuries Objective - Vital Signs Vital signs: Vital Signs Temp 98.2 F 02/14/24 10:20 Pulse 98 02/14/24 10:20 Resp 18 02/14/24 11:04 BP 100/66 02/14/24 10:20 Pulse Ox 98 02/14/24 10:20 FiO2 Intake & Output 02/13/24 02/14/24 02/14/24 18:59 06:59 18:59 Weight 56.699 kg - Exam Head exam: Present: atraumatic, normocephalic, normal inspection Eye exam: Present: normal appearance, PERRL, EOMI. Absent: scleral icterus, conjunctival injection, periorbital swelling ENT exam: Present: normal exam, mucous membranes moist Neck exam: Present: normal inspection. Absent: tenderness, meningismus, lymphadenopathy Respiratory exam: Present: normal lung sounds bilaterally. Absent: respiratory distress, wheezes, rales, rhonchi, stridor Cardiovascular Exam: Present: regular rate, normal rhythm, normal heart sounds. Absent: systolic murmur, diastolic murmur, rubs, gallop, clicks GI/Abdominal exam: Present: soft, normal bowel sounds. Absent: distended, tenderness, guarding, rebound, rigid Extremities exam: Present: normal inspection, full ROM, normal capillary refill. Absent: tenderness, pedal edema, joint swelling, calf tenderness Back exam: Present: normal inspection Neurological exam: Present: alert, oriented X3, CN II-XII intact Psychiatric exam: Present: normal affect, normal mood Skin exam: Present: warm, dry, intact, normal color. Absent: rash - Labs CBC & Chem 7: 02/14/24 06:34 02/14/24 06:34 Labs: Abnormal Lab Results - Last 24 Hours (Table) 02/12/24 02/13/24 02/13/24 Range/Units 15:00 11:57 13:49 RBC (3.80-5.40) m/uL Hgb (11.4-16.0) gm/dL Hct (34.0-46.0) % Sodium (137-145) mmol/L Carbon Dioxide (22-30) mmol/L BUN (7-17) mg/dL Creatinine (0.52-1.04) mg/dL Glucose (74-99) mg/dL POC Glucose (mg/dL) 489 H 553 H* (70-110) mg/dL Total T4 2.2 L (4.5 - 10.9) ug/dL 02/13/24 02/13/24 02/13/24 Range/Units 16:51 17:55 19:48 RBC (3.80-5.40) m/uL Hgb (11.4-16.0) gm/dL Hct (34.0-46.0) % Sodium (137-145) mmol/L Carbon Dioxide (22-30) mmol/L BUN (7-17) mg/dL Creatinine (0.52-1.04) mg/dL Glucose (74-99) mg/dL POC Glucose (mg/dL) 427 H 333 H 414 H (70-110) mg/dL Total T4 (4.5 - 10.9) ug/dL 02/13/24 02/13/24 02/14/24 Range/Units 21:14 22:56 06:32 RBC (3.80-5.40) m/uL Hgb (11.4-16.0) gm/dL Hct (34.0-46.0) % Sodium (137-145) mmol/L Carbon Dioxide (22-30) mmol/L BUN (7-17) mg/dL Creatinine (0.52-1.04) mg/dL Glucose (74-99) mg/dL POC Glucose (mg/dL) 433 H 324 H 424 H (70-110) mg/dL Total T4 (4.5 - 10.9) ug/dL 02/14/24 02/14/24 02/14/24 Range/Units 06:34 06:34 08:07 RBC 3.40 L (3.80-5.40) m/uL Hgb 10.1 L (11.4-16.0) gm/dL Hct 32.3 L (34.0-46.0) % Sodium 126 L (137-145) mmol/L Carbon Dioxide 20 L (22-30) mmol/L BUN 26 H (7-17) mg/dL Creatinine 1.13 H (0.52-1.04) mg/dL Glucose 425 H (74-99) mg/dL POC Glucose (mg/dL) 374 H (70-110) mg/dL Total T4 (4.5 - 10.9) ug/dL Microbiology - Last 24 Hours (Table) 02/12/24 15:00 Blood Culture Gram Stain - Preliminary Blood Blood Culture - Preliminary Staphylococcus hominis Molecular ID Assessment and Plan Assessment: 1. Fall; questionable syncopal episode -Patient will be admitted to telemetry; monitor EKG and trend troponin; orthostatic vital signs -Placed on IV fluids and normal saline at rate of 75 cc an hour 2. Hyperglycemia without acidosis; Patient reports she has an insulin pump which is probably malfunctioning; patient received 15 units of IV insulin in the ED; will resume home dose of Lantus 15 units SQ nightly; Accu-Cheks before every meal and at bedtime with sliding scale; will be placed back on insulin pump once investigated 3. Hyponatremia; likely associated with hyperglycemia; patient is placed on IV fluids in form of normal saline; electrolytes closely; adjust medications as needed 4. Hypothyroidism; new diagnosis; TSH is markedly elevated; total T4 is low; will order free T4 -Start patient on Synthroid 0.5 mcg daily -Recommending repeat thyroid profile in 4 to 6 weeks 5. Hypertension; losartan 50 mg daily; metoprolol 25 mg daily 6. Diabetes mellitus with long-term insulin use; insulin (likely malfunctioning; monitor Accu-Cheks before every meal and at bedtime with insulin sliding scale; continue with home dose of Tradjenta; and has been placed on long-acting insulin 7. Anxiety/depression; Remeron 7.5 mg nightly; Effexor XR to 25 mg daily DVT prophylaxis; SCDs/subcu heparin CODE STATUS full code;
[2024-02-14 17:13] LABS: Glucose,Whole Blood 101 mg/dL (70-110)
[2024-02-14 20:10] LABS: Glucose,Whole Blood 268 mg/dL (70-110)
--- NOTE | 2024-02-14 21:15 | P.CONS ---
History of Present Illness - Reason for Consult Consult date: 02/14/24 Positive blood culture Requesting physician: Laura Lucas - Chief Complaint Fall x 1 day - History of Present Illness Patient is a 64-year-old female with a past medical history significant for diabetes mellitus DVT hypertension hyperlipidemia [place] rheumatoid arthritis,coronary disease CVA TIA patient was brought into the hospital after apparently the patient did have a syncopal episode resulting in a fall and this patient hitting her back and head, patient denies having any fever or any chills denies having any URI symptoms no chest pain or shortness of did have some cough some nausea but no weight no abdominal pain or diarrhea patient currently do not have any joint swelling lower extremity redness or any wound patient on presentation to the hospital was afebrile and no fever have been called subsequently patient was not tachycardic hypotensive or hypoxic and no need for supplemental oxygen patient did have white count of 7.0 with no left shift BUN/creatinine has been mildly elevated and liver enzymes normal urine has been negative blood cultures came back positive with gram-positive cocci prompting this consultation patient did have a chest x-ray no acute cardiopulmonary disease process Review of Systems Positive point and negatives has been mentioned in the HPI, complete review of systems was performed and all other systems are negative Past Medical History Past Medical History: Coronary Artery Disease (CAD), Cancer, COPD, CVA/TIA, Diabetes Mellitus, Deep Vein Thrombosis (DVT), Eye Disorder, GERD/Reflux, Hyperlipidemia, Hypertension, Myocardial Infarction ([place]), Renal Disease, Rheumatoid Arthritis (RA), Syncope, Thyroid Disorder Additional Past Medical History / Comment(s): 09/16/16 with SBO with surgery/possible septic emboli with cavitary lesions bilateral lungs. Hx: left renal cell carcinoma with partial nephrectomy. 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 DVT left leg 7-8 yrs ago. hypothyroidism, chronic back pain, degenerative disks, hx UTI with sepsis secondary to ESBL producing E. coli 2015 requiring PICC line insertion for IV antibiotics. restless leg syndrome, peripheral neuropathy. Hx bilateral glaucoma, hx syncope r/t low blood sugars. No CPAP use. Last Myocardial Infarction Date:: 2019 History of Any Multi-Drug Resistant Organisms: ESBL, MRSA, VRE Year Discovered:: 05/07/16 ESBL, 05/15/16 VRE, MRSA 09/2017 - upper lip MDRO Source:: URINE E.COLI, EC GALLINARUM Past Surgical History: Appendectomy, Bowel Resection, Section, Heart Catheterization, Heart Catheterization With Stent, Hernia Repair Additional Past Surgical History / Comment(s): 09/30 exploratory laparotomy with lysis of adhesions, bowel resection d/t obstruction. repair incarcerated incisional hernia with abdominal washout. thyroidectomy(non functioning). heart cath 06/28 - 100% occluded, unable to stent. partial left nephrectomy for left kidney renal cell carcinoma. colonoscopy, bilateral cataract removal with lens implants, 2 Sections. cardiac stent 03/2021 Past Anesthesia/Blood Transfusion Reactions: No Reported Reaction Date of Last Stent Placement:: 04/06/2021 Past Psychological History: Depression Smoking Status: Former smoker Past Alcohol Use History: None Reported Past Drug Use History: Marijuana - Past Family History Sister(s) Family Medical History: Cancer, Deep Vein Thrombosis (DVT) Additional Family Medical History / Comment(s): Patient has one sister that from liver cancer. Brother(s) Family Medical History: Cancer, Deep Vein Thrombosis (DVT) Additional Family Medical History / Comment(s): Patient has 1 brother with past ETOH, past drug abuse, DVTs. She has a second brother that has from throat cancer. Daughter(s) Family Medical History: Diabetes Mellitus, Myocardial Infarction ([place]) Additional Family Medical History / Comment(s): Daughter at 23 yrs old from massive [place]. Father Family Medical History: Myocardial Infarction ([place]) Additional Family Medical History / Comment(s): from [place] at age 44 Mother Family Medical History: Cancer Additional Family Medical History / Comment(s): B/L breast cancer Medications and Allergies Home Medications Medication Instructions Recorded Confirmed Type Venlafaxine HCl [Effexor XR] 225 mg PO DAILY 10/21/16 02/12/24 History Pantoprazole Sodium [Protonix] 40 mg PO BID 04/06/20 02/12/24 History Aspirin EC [Ecotrin Low Dose] 81 mg PO DAILY 10/03/22 02/12/24 History Isosorbide Mononitrate ER [Imdur] 30 mg PO DAILY 04/10/23 02/12/24 History Mirtazapine 7.5 mg PO HS 04/10/23 02/12/24 History cilostazoL [Pletal] 100 mg PO BID 08/02/23 02/12/24 History Losartan [Cozaar] 50 mg PO DAILY #60 tab 08/05/23 02/12/24 Rx Metoprolol Succinate (ER) [Toprol 25 mg PO DAILY #60 tab 08/05/23 02/12/24 Rx XL] Linagliptin [Tradjenta] 5 mg PO DAILY #30 tab 09/05/23 02/12/24 Rx Glucagon [Gvoke Pfs 1-Pack Syringe] 1 mg SQ DIRECTED PRN 02/12/24 02/12/24 History INSULIN LISPRO (HumaLOG) [humaLOG] 4 units SQ AC-TID 02/12/24 02/12/24 History INSULIN LISPRO (HumaLOG) [humaLOG] See Protocol SQ ACHS 02/12/24 02/12/24 History Insulin Glargine [Lantus Vial] 10 unit SQ DAILY 02/12/24 02/12/24 History Allergies Allergy/AdvReac Type Severity Reaction Status Date / Time grass pollen Allergy Unknown Verified 02/12/24 16:06 latex Allergy Rash/Hives Verified 02/12/24 16:06 Sulfa (Sulfonamide Allergy Rash/Hives/ Verified 02/12/24 16:06 Antibiotics) Swelling venom-honey bee Allergy Anaphylaxis Verified 02/12/24 16:06 prochlorperazine edisylate AdvReac Vomiting Verified 02/12/24 16:06 [From Compazine] Physical Exam Vitals: Vital Signs Temp Pulse Resp BP Pulse Ox 02/14/24 06:00 109 H 18 148/74 97 02/14/24 01:50 104 H 17 96/58 100 02/13/24 22:58 98.4 F 92 18 94/68 99 02/13/24 19:51 81 16 99/68 100 02/13/24 18:06 96 16 116/81 99 02/13/24 13:59 98.0 F 75 16 125/93 100 GENERAL DESCRIPTION: Middle-aged female lying in bed, no distress. No tachypnea or accessory muscle of respiration use. HEENT: Shows Pallor , no scleral icterus. Oral mucous membrane is dry. No pharyngeal erythema or thrush NECK: Trachea central, no thyromegaly. LUNGS: Unlabored breathing. Clear to auscultation anteriorly. No wheeze or crackle. HEART: S1, S2, regular rate and rhythm. No loud murmur ABDOMEN: Soft, no tenderness , guarding or rigidity, no organomegaly EXTREMITIES: No edema of feet. SKIN: No rash, no masses palpable. NEUROLOGICAL: The patient is awake, alert, oriented x3, mood and affect normal. Results CBC & Chem 7: 02/15/24 04:30 02/15/24 04:30 Labs: Abnormal Lab Results - Last 24 Hours (Table) 02/12/24 02/13/24 02/13/24 Range/Units 15:00 06:14 06:21 RBC 3.55 L (4.10-5.20) X 10*6/uL Hgb 10.7 L (12.0-15.0) g/dL Hct 31.7 L (37.2-46.3) % Sodium 134 L (135-145) mmol/L Potassium 3.2 L (3.5-5.5) mmol/L Carbon Dioxide (22-30) mmol/L Anion Gap 13.80 H (4.00-12.00) mmol/L BUN 27.7 H (9.0-27.0) mg/dL Creatinine 1.6 H (0.6-1.5) mg/dL Est GFR (CKD-EPI) 36 L (>=60) Glucose 27 A* (70-110) mg/dL POC Glucose (mg/dL) (70-110) mg/dL Total Bilirubin <0.2 L (0.3-1.2) mg/dL Alkaline Phosphatase 128 H (41-126) U/L Total T4 2.2 L (4.5 - 10.9) ug/dL 02/13/24 02/13/24 02/13/24 Range/Units 09:06 10:41 11:57 RBC (4.10-5.20) X 10*6/uL Hgb (12.0-15.0) g/dL Hct (37.2-46.3) % Sodium (135-145) mmol/L Potassium (3.5-5.5) mmol/L Carbon Dioxide (22-30) mmol/L Anion Gap (4.00-12.00) mmol/L BUN (9.0-27.0) mg/dL Creatinine (0.6-1.5) mg/dL Est GFR (CKD-EPI) (>=60) Glucose (70-110) mg/dL POC Glucose (mg/dL) 46 L* 310 H 489 H (70-110) mg/dL Total Bilirubin (0.3-1.2) mg/dL Alkaline Phosphatase (41-126) U/L Total T4 (4.5 - 10.9) ug/dL 02/13/24 02/13/24 02/13/24 Range/Units 13:49 16:51 17:55 RBC (4.10-5.20) X 10*6/uL Hgb (12.0-15.0) g/dL Hct (37.2-46.3) % Sodium (135-145) mmol/L Potassium (3.5-5.5) mmol/L Carbon Dioxide (22-30) mmol/L Anion Gap (4.00-12.00) mmol/L BUN (9.0-27.0) mg/dL Creatinine (0.6-1.5) mg/dL Est GFR (CKD-EPI) (>=60) Glucose (70-110) mg/dL POC Glucose (mg/dL) 553 H* 427 H 333 H (70-110) mg/dL Total Bilirubin (0.3-1.2) mg/dL Alkaline Phosphatase (41-126) U/L Total T4 (4.5 - 10.9) ug/dL 02/13/24 02/13/24 02/13/24 Range/Units 19:48 21:14 22:56 RBC (4.10-5.20) X 10*6/uL Hgb (12.0-15.0) g/dL Hct (37.2-46.3) % Sodium (135-145) mmol/L Potassium (3.5-5.5) mmol/L Carbon Dioxide (22-30) mmol/L Anion Gap (4.00-12.00) mmol/L BUN (9.0-27.0) mg/dL Creatinine (0.6-1.5) mg/dL Est GFR (CKD-EPI) (>=60) Glucose (70-110) mg/dL POC Glucose (mg/dL) 414 H 433 H 324 H (70-110) mg/dL Total Bilirubin (0.3-1.2) mg/dL Alkaline Phosphatase (41-126) U/L Total T4 (4.5 - 10.9) ug/dL 02/14/24 02/14/24 02/14/24 Range/Units 06:32 06:34 06:34 RBC 3.40 L (4.10-5.20) X 10*6/uL Hgb 10.1 L (12.0-15.0) g/dL Hct 32.3 L (37.2-46.3) % Sodium 126 L (135-145) mmol/L Potassium (3.5-5.5) mmol/L Carbon Dioxide 20 L (22-30) mmol/L Anion Gap (4.00-12.00) mmol/L BUN 26 H (9.0-27.0) mg/dL Creatinine 1.13 H (0.6-1.5) mg/dL Est GFR (CKD-EPI) (>=60) Glucose 425 H (70-110) mg/dL POC Glucose (mg/dL) 424 H (70-110) mg/dL Total Bilirubin (0.3-1.2) mg/dL Alkaline Phosphatase (41-126) U/L Total T4 (4.5 - 10.9) ug/dL Microbiology - Last 24 Hours (Table) 02/12/24 15:00 Blood Culture Gram Stain - Preliminary Blood Blood Culture - Preliminary Molecular ID Assessment and Plan (1) Positive blood culture Current Visit: Yes Status: Acute Code(s): R78.81 - BACTEREMIA SNOMED Code(s): 785498264 Plan: 1patient with a positive blood culture with gram-positive cocci this patient presented to hospital after the patient did have a fall and apparently syncopal episode patient did not have any fever or elevated white count and initial workup has been negative chest x-ray was negative patient do not have any joint swelling or cellulitis likely skin contamination 2-no need for vancomycin at this point and will wait for the final ID on this positive blood culture We will follow on clinical condition and cultures to further adjust medication if needed Thank you for this consultation we will follow the patient along with you Dictation was produced using [employer] dictation software. please excuse any grammatical, word or spelling errors. Time with Patient: Greater than 30
[2024-02-15 05:28] LABS: Basophils % (A) 1 %; Eosinophils # (A) 0.3 k/uL (0-0.7); Eosinophils % (A) 7 %; HCT 30.3 % (34.0-46.0); HGB 9.7 gm/dL (11.4-16.0); Hypochromasia Moderate; Lymphocytes # (A) 1.8 k/uL (1.0-4.8); Lymphocytes % (A) 41 %; MCV 93.9 fL (80.0-100.0); Mean Platelet Volume 7.5; Monocytes # (A) 0.2 k/uL (0-1.0); Monocytes % (A) 4 %; Neutrophils # (A) 1.9 k/uL (1.3-7.7); Neutrophils % (A) 45 %; Platelet Count 265 k/uL (150-450); RBC 3.23 m/uL (3.80-5.40); RDW 14.4 % (11.5-15.5); WBC 4.3 k/uL (3.8-10.6)
[2024-02-15 07:19] LABS: Glucose,Whole Blood 377 mg/dL (70-110)
[2024-02-15 12:19] LABS: Glucose,Whole Blood 256 mg/dL (70-110)
[2024-02-15 12:27] LABS: BUN/Creat Ratio 23.43 Ratio (12.00-20.00); Blood Urea Nitrogen 32.8 mg/dL (9.0-27.0); Carbon Dioxide 21.4 mmol/L (21.6-31.8); Chloride 100 mmol/L (96-109); Glucose 402 mg/dL (70-110); Sodium 131 mmol/L (135-145)
--- NOTE | 2024-02-15 14:57 | P.PN ---
Subjective Progress Note Date: 02/15/24 Principal diagnosis: Reason for follow-up is positive blood culture Patient is a 64-year-old female with a past medical history significant for diabetes mellitus DVT hypertension hyperlipidemia [place] rheumatoid arthritis,coronary disease CVA TIA patient was brought into the hospital after apparently the patient did have a syncopal episode resulting in a fall patient did have a positive blood culture prompting this consultation. On today's evaluation that is 02/15/2024,the patient remains to be afebrile, patient is on room air not requiring supplemental oxygen and denies any shortness of breath no chest pain or cough.Patient denies having any nausea or vomiting, no abdominal pain and no diarrhea has been reported. The patient white count is 4.3, creatinine is 1.4 blood culture with Streptococcus hominis oxacillin sensitive Objective - Vital Signs Vital signs: Vital Signs Temp 98.4 F 02/15/24 12:19 Pulse 95 02/15/24 13:04 Resp 17 02/15/24 12:19 BP 121/75 02/15/24 13:04 Pulse Ox 95 02/15/24 12:19 FiO2 Intake & Output 02/14/24 02/15/24 02/15/24 18:59 06:59 18:59 Intake Total 1260 Output Total 500 Balance 1260 -500 Intake: Oral 1260 Output: Urine 500 Other: Voiding Method Bedside Commode External Catheter External Catheter - Exam GENERAL DESCRIPTION: Middle-age female lying in bed in no distress RESPIRATORY SYSTEM: Unlabored breathing , decreased breath sounds at bases HEART: S1 S2 regular rate and rhythm , ABDOMEN: Soft , no tenderness EXTREMITIES: No edema feet - Labs CBC & Chem 7: 02/15/24 04:30 02/15/24 04:30 Labs: Abnormal Lab Results - Last 24 Hours (Table) 02/14/24 02/15/24 02/15/24 Range/Units 20:07 04:30 04:30 RBC 3.23 L (3.80-5.40) m/uL Hgb 9.7 L (11.4-16.0) gm/dL Hct 30.3 L (34.0-46.0) % Sodium 131 L (135-145) mmol/L Carbon Dioxide 21.4 L (21.6-31.8) mmol/L BUN 32.8 H (9.0-27.0) mg/dL Est GFR (CKD-EPI) 42 L (>=60) BUN/Creatinine Ratio 23.43 H (12.00-20.00) Ratio Glucose 402 H (70-110) mg/dL POC Glucose (mg/dL) 268 H (70-110) mg/dL Calcium 8.0 L (8.7-10.3) mg/dL 02/15/24 02/15/24 Range/Units 07:17 12:17 RBC (3.80-5.40) m/uL Hgb (11.4-16.0) gm/dL Hct (34.0-46.0) % Sodium (135-145) mmol/L Carbon Dioxide (21.6-31.8) mmol/L BUN (9.0-27.0) mg/dL Est GFR (CKD-EPI) (>=60) BUN/Creatinine Ratio (12.00-20.00) Ratio Glucose (70-110) mg/dL POC Glucose (mg/dL) 377 H 256 H (70-110) mg/dL Calcium (8.7-10.3) mg/dL Microbiology - Last 24 Hours (Table) 02/12/24 15:00 Blood Culture Gram Stain - Final Blood Blood Culture - Final Staphylococcus hominis Molecular ID Assessment and Plan (1) Positive blood culture Current Visit: Yes Status: Acute Code(s): R78.81 - BACTEREMIA SNOMED Code(s): 900223976 Plan: 1patient with a positive blood culture with gram-positive cocci this patient presented to hospital after the patient did have a fall and apparently syncopal episode patient did not have any fever or elevated white count and initial workup has been negative chest x-ray was negative patient do not have any joint swelling or cellulitis likely skin contamination 2-blood culture finalized with Streptococcus hominis likely skin miguelito clinically not behaving as infected pathogen we will check inflammatory markers Dictation was produced using [employer] dictation software. please excuse any grammatical, word or spelling errors. Time with Patient: Less than 30
[2024-02-15 17:11] LABS: Glucose,Whole Blood 231 mg/dL (70-110)
--- NOTE | 2024-02-15 17:58 | P.PN ---
Subjective Progress Note Date: 02/15/24 64 female, history of hypertension, hyperlipidemia, DVT, CAD, COPD, diabetes mellitus, presents to the ER for evaluation of a syncopal event resulting in fall with back pain and hitting her head. Patient states that she has diabetes and does occasionally have syncopal events. Patient feels very weak here in the ER denying chest pain or shortness of breath Patient had a fall with back pain fall with hitting her head feels weak lightheaded dizzy history of syncope unsure if she may have had a syncopal event today. Blood work completed in ED reveals WBC of 7.0, hemoglobin of 12.1 and platelet count of 339, PT 9.9 with INR 0.9, sodium 129, potassium 4.7, BUNs/creatinine of 27/1.52, blood glucose greater than 600 with phosphorus elevated at 4.6 and alkaline phosphatase of 142, TSH elevated at 95.0 with total T4 of 2.2 CT of the head and cervical spine is unremarkable Chest x-ray, pelvic x-ray and lumbar spinal x-ray does not reveal any acute injuries 02/15/2024 the patient remains to be afebrile, patient is on room air not requiring supplemental oxygen and denies any shortness of breath no chest pain or cough.Patient denies having any nausea or vomiting, no abdominal pain and no diarrhea has been reported. The patient white count is 4.3, creatinine is 1.4 blood culture with Streptococcus hominis oxacillin sensitive -patient with a positive blood culture with gram-positive cocci this patient presented to hospital after the patient did have a fall and apparently syncopal episode patient did not have any fever or elevated white count and initial workup has been negative chest x-ray was negative patient do not have any joint swelling or cellulitis likely skin contamination -blood culture finalized with Streptococcus hominis likely skin miguelito clinically not behaving as infected pathogen we will check inflammatory markers Objective - Vital Signs Vital signs: Vital Signs Temp 98.4 F 02/15/24 07:19 Pulse 85 02/15/24 09:15 Resp 15 02/15/24 09:15 BP 144/73 02/15/24 07:19 Pulse Ox 94 L 02/15/24 07:19 FiO2 Intake & Output 02/14/24 02/15/24 02/15/24 18:59 06:59 18:59 Intake Total 1260 Output Total 500 Balance 1260 -500 Intake: Oral 1260 Output: Urine 500 Other: Voiding Method Bedside Commode External Catheter External Catheter - Exam Head exam: Present: atraumatic, normocephalic, normal inspection Eye exam: Present: normal appearance, PERRL, EOMI. Absent: scleral icterus, conjunctival injection, periorbital swelling ENT exam: Present: normal exam, mucous membranes moist Neck exam: Present: normal inspection. Absent: tenderness, meningismus, lymphadenopathy Respiratory exam: Present: normal lung sounds bilaterally. Absent: respiratory distress, wheezes, rales, rhonchi, stridor Cardiovascular Exam: Present: regular rate, normal rhythm, normal heart sounds. Absent: systolic murmur, diastolic murmur, rubs, gallop, clicks GI/Abdominal exam: Present: soft, normal bowel sounds. Absent: distended, tenderness, guarding, rebound, rigid Extremities exam: Present: normal inspection, full ROM, normal capillary refill. Absent: tenderness, pedal edema, joint swelling, calf tenderness Back exam: Present: normal inspection Neurological exam: Present: alert, oriented X3, CN II-XII intact Psychiatric exam: Present: normal affect, normal mood Skin exam: Present: warm, dry, intact, normal color. Absent: rash - Labs CBC & Chem 7: 02/15/24 04:30 02/15/24 04:30 Labs: Abnormal Lab Results - Last 24 Hours (Table) 02/14/24 02/14/24 02/15/24 Range/Units 12:15 20:07 04:30 RBC 3.23 L (3.80-5.40) m/uL Hgb 9.7 L (11.4-16.0) gm/dL Hct 30.3 L (34.0-46.0) % POC Glucose (mg/dL) 386 H 268 H (70-110) mg/dL 02/15/24 Range/Units 07:17 RBC (3.80-5.40) m/uL Hgb (11.4-16.0) gm/dL Hct (34.0-46.0) % POC Glucose (mg/dL) 377 H (70-110) mg/dL Microbiology - Last 24 Hours (Table) 02/12/24 15:00 Blood Culture Gram Stain - Preliminary Blood Blood Culture - Preliminary Staphylococcus hominis Molecular ID Assessment and Plan Assessment: 1. Fall; questionable syncopal episode -Patient will be admitted to telemetry; monitor EKG and trend troponin; orthos tatic vital signs -Placed on IV fluids and normal saline at rate of 75 cc an hour 2. Hyperglycemia without acidosis; Patient reports she has an insulin pump which is probably malfunctioning; yajaira sanchez received 15 units of IV insulin in the ED; will resume home dose of Lantus 15 units SQ nightly; Accu-Cheks before every meal and at bedtime with sliding scale; will be placed back on insulin pump once investigated 3. Hyponatremia; likely associated with hyperglycemia; patient is placed on IV fluids in form of normal saline; electrolytes closely; adjust medications as needed 4. Hypothyroidism; new diagnosis; TSH is markedly elevated; total T4 is low; will order free T4 -Start patient on Synthroid 0.5 mcg daily -Recommending repeat thyroid profile in 4 to 6 weeks 5. Hypertension; losartan 50 mg daily; metoprolol 25 mg daily 6. Diabetes mellitus with long-term insulin use; insulin (likely malfunctioning; monitor Accu-Cheks before every meal and at bedtime with insulin sliding scale; continue with home dose of Tradjenta; and has been placed on long-acting insulin 7. Anxiety/depression; Remeron 7.5 mg nightly; Effexor XR to 25 mg daily DVT prophylaxis; SCDs/subcu heparin CODE STATUS full code;
[2024-02-15 20:21] LABS: Glucose,Whole Blood 270 mg/dL (70-110)
[2024-02-15] MEDS: INSULIN DETEMIR (LEVEMIR) 100 UNIT/ML SYR SQ SCH (21:27)
[2024-02-16 07:10] LABS: Glucose,Whole Blood 49 mg/dL (70-110)
[2024-02-16 07:10] LABS: Glucose,Whole Blood 49 mg/dL (70-110)
[2024-02-16 07:36] LABS: Glucose,Whole Blood 61 mg/dL (70-110)
[2024-02-16 07:56] LABS: Glucose,Whole Blood 96 mg/dL (70-110)
[2024-02-16 12:04] LABS: Glucose,Whole Blood 141 mg/dL (70-110)
[2024-02-16 14:22] LABS: % Iron Saturation 31.76 (12.00-45.00); Ferritin 52.4 ng/mL (10.0-291.0); Iron 81 UG/DL (50-170); Total Iron Binding Capacity 255 UG/DL (228-460)
[2024-02-16 14:23] LABS: BUN/Creat Ratio 22.33 Ratio (12.00-20.00); Blood Urea Nitrogen 26.8 mg/dL (9.0-27.0); Calcium 8.6 mg/dL (8.7-10.3); Chloride 108 mmol/L (96-109); Glucose 60 mg/dL (70-110); Potassium 4.7 mmol/L (3.5-5.5); Sodium 139 mmol/L (135-145)
[2024-02-16] MEDS: SODIUM CHLORIDE 0.9% 500 ML 500 ML IV ONE (16:24)
[2024-02-16] MEDS: CYANOCOBALAMIN 500 MCG TAB PO SCH (16:45)
[2024-02-16] MEDS: PANTOPRAZOLE 40 MG/10 ML VIAL IVP SCH (16:45)
[2024-02-16] MEDS: FOLIC ACID 1 MG TAB PO SCH (16:45)
[2024-02-16 17:03] LABS: Glucose,Whole Blood 363 mg/dL (70-110)
--- NOTE | 2024-02-16 18:57 | XR ---
EXAMINATION TYPE: XR KUB portable DATE OF EXAM: 02/16/2024 COMPARISON: 10/03/2022 INDICATION: Abdomen pain TECHNIQUE: Single view abdomen supine view FINDINGS: There is a normal bowel gas pattern. Heart fecal debris is within the colon. No suspicious dilated lo ops of bowel are evident. No mass effect is evident. Psoas margins are normal. No organomegaly is present. IMPRESSION: 1. Nonspecific abdomen. Some mild fecal retention may be present.
[2024-02-16 20:37] LABS: Glucose,Whole Blood 86 mg/dL (70-110)
[2024-02-16] MEDS: HEPARIN SODIUM,PORCINE 5,000 UNIT/ML 1 ML VIAL SQ SCH (21:00)
--- NOTE | 2024-02-16 22:50 | P.PN ---
Subjective Progress Note Date: 02/16/24 Principal diagnosis: Reason for follow-up is positive blood culture Patient is a 64-year-old female with a past medical history significant for diabetes mellitus DVT hypertension hyperlipidemia [place] rheumatoid arthritis,coronary disease CVA TIA patient was brought into the hospital after apparently the patient did have a syncopal episode resulting in a fall patient did have a positive blood culture prompting this consultation. On today's evaluation that is 02/16/2024, the patient continues to be afebrile, the patient is on room air and breathing comfortably, the Pt denies having any chest pain or cough, the patient denies having any abdominal pain no vomiting or any diarrhea has been reported by the nursing staff Patient did have creatinine 1.2 procalcitonin normal 0.08 CRP 0.7 Objective - Vital Signs Vital signs: Vital Signs Temp 98.2 F 02/16/24 12:54 Pulse 85 02/16/24 12:54 Resp 16 02/16/24 12:54 BP 152/80 02/16/24 12:54 Pulse Ox 99 02/16/24 12:54 FiO2 Intake & Output 02/15/24 02/16/24 02/16/24 18:59 06:59 18:59 Intake Total 031 848 7847 Balance 617 766 0727 Intake: Oral 605 271 0147 Other: Voiding Method External Catheter External Catheter External Catheter # Voids 3 - Exam GENERAL DESCRIPTION: Middle-age female lying in bed in no distress RESPIRATORY SYSTEM: Unlabored breathing , decreased breath sounds at bases HEART: S1 S2 regular rate and rhythm , ABDOMEN: Soft , no tenderness EXTREMITIES: No edema feet - Labs CBC & Chem 7: 02/15/24 04:30 02/16/24 02:44 Labs: Abnormal Lab Results - Last 24 Hours (Table) 02/15/24 02/15/24 02/16/24 Range/Units 17:10 20:19 02:44 Est GFR (CKD-EPI) 51 L (>=60) BUN/Creatinine Ratio 22.33 H (12.00-20.00) Ratio Glucose 60 L (70-110) mg/dL POC Glucose (mg/dL) 231 H 270 H (70-110) mg/dL Calcium 8.6 L (8.7-10.3) mg/dL Transferrin 182.0 L (204.0-354.0) mg/dL 02/16/24 02/16/24 02/16/24 Range/Units 07:08 07:10 07:35 Est GFR (CKD-EPI) (>=60) BUN/Creatinine Ratio (12.00-20.00) Ratio Glucose (70-110) mg/dL POC Glucose (mg/dL) 49 L* 49 L* 61 L (70-110) mg/dL Calcium (8.7-10.3) mg/dL Transferrin (204.0-354.0) mg/dL 02/16/24 Range/Units 12:03 Est GFR (CKD-EPI) (>=60) BUN/Creatinine Ratio (12.00-20.00) Ratio Glucose (70-110) mg/dL POC Glucose (mg/dL) 141 H (70-110) mg/dL Calcium (8.7-10.3) mg/dL Transferrin (204.0-354.0) mg/dL Microbiology - Last 24 Hours (Table) 02/12/24 15:00 Blood Culture Gram Stain - Final Blood Blood Culture - Final Staphylococcus hominis Molecular ID Assessment and Plan (1) Positive blood culture Current Visit: Yes Status: Acute Code(s): R78.81 - BACTEREMIA SNOMED Code(s): 822137615 Plan: 1patient with a positive blood culture with gram-positive cocci this patient presented to hospital after the patient did have a fall and apparently syncopal episode patient did not have any fever or elevated white count and initial workup has been negative chest x-ray was negative patient do not have any joint swelling or cellulitis likely skin contamination 2-blood culture finalized with Streptococcus hominis likely skin miguelito, patient did have normal inflammatory markers no need for antibiotics Dictation was produced using [employer] dictation software. please excuse any grammatical, word or spelling errors. Time with Patient: Less than 30
[2024-02-17 02:06] LABS: Glucose,Whole Blood 344 mg/dL (70-110)
--- NOTE | 2024-02-17 07:00 | P.PN ---
Subjective 64 female, history of hypertension, hyperlipidemia, DVT, CAD, COPD, diabetes mellitus, presents to the ER for evaluation of a syncopal event resulting in fall with back pain and hitting her head. Patient states that she has diabetes and does occasionally have syncopal events. Patient feels very weak here in the ER denying chest pain or shortness of breath Patient had a fall with back pain fall with hitting her head feels weak lightheaded dizzy history of syncope unsure if she may have had a syncopal event today. Blood work completed in ED reveals WBC of 7.0, hemoglobin of 12.1 and platelet count of 339, PT 9.9 with INR 0.9, sodium 129, potassium 4.7, BUNs/creatinine of 27/1.52, blood glucose greater than 600 with phosphorus elevated at 4.6 and alkaline phosphatase of 142, TSH elevated at 95.0 with total T4 of 2.2 CT of the head and cervical spine is unremarkable Chest x-ray, pelvic x-ray and lumbar spinal x-ray does not reveal any acute injuries 02/15/2024 the patient remains to be afebrile, patient is on room air not requiring s upplemental oxygen and denies any shortness of breath no chest pain or cough.Patient denies having any nausea or vomiting, no abdominal pain and no diarrhea has been reported. The patient white count is 4.3, creatinine is 1.4 blood culture with Streptococcus hominis oxacillin sensitive -patient with a positive blood culture with gram-positive cocci this patient presented to hospital after the patient did have a fall and apparently syncopal episode patient did not have any fever or elevated white count and initial workup has been negative chest x-ray was negative patient do not have any joint swelling or cellulitis likely skin contamination -blood culture finalized with Streptococcus hominis likely skin miguelito clinically not behaving as infected pathogen we will check inflammatory markers 02/15 This is a pleasant 64 years old female who presents initially because of fall and syncope at home, thought secondary to low borderline blood pressure Also patient has positive blood culture with Staph hominis most likely contamination as per ID team Patient has history of coronary artery disease s/p cardiac cath showing moderate LAD and left circumflex coronary artery disease, ejection fraction 45 to 50% with some regional or segmental wall motion abnormality. Patient evaluated by jewel blocker and sawyer recently. she states she has chest pain when she passed out but no chest pain currently. No dyspnea She has some periumbilical abdominal pain and tenderness. She has no bowel movement since last Friday which is unusual for her, no vomiting. Also she has evidence of compression fraction of L3, she is seen also on MRI of the lumbar spine on 2021, on 05/2023 also evaluated by orthopedic team. She has anemia which is chronic, hemoglobin slightly on the low side but no labs from today Sodium 139. Glucose also dropping to 49 this morning. Currently she is on Levemir 15 units at bedtime. At home she was taking Levemir 10 units daily and 4 units with meal. Therefore we are going to switch it to Levemir 10 units daily starting from tomorrow. Continue with insulin sliding scale. Creatinine stable at 1.2 compared to 1.4 yesterday, improving Anemia workup was requested:Iron study showing iron within the reference range at 81, TIBC also within the reference range at 255 and ferritin is normal at 52. B12 295.. Folate is low at 4.3 TSH Is high at 19 and T4 is low at 2.2, we will start levothyroxine gradually at small dose of 0.25 mcg and this can be titrated up gradually late on to decrease the possible side effect for eg on the heart given her heart disease and pt also can benefit form endocarinologist evaluation as outpt and contact info for is provided on her discharge instructions Review of systems CONSTITUTIONAL: No fever, no malaise, no fatigue. HEENT: No recent visual problems or hearing problems. Denied any sore throat. CARDIOVASCULAR: No orthopnea, PND, no palpitations, no syncope. HEMATOLOGICAL: Denies any bleeding or petechiae. GENITOURINARY: Denies any burning micturition, frequency, or urgency. MUSCULOSKELETAL/RHEUMATOLOGICAL: Denies any joint pain, swelling, or any muscle pain. ENDOCRINE: Denies any polyuria or polydipsia. Active Medications Generic Name Dose Route Start Last Admin Trade Name Freq PRN Reason Stop Dose Admin Acetaminophen 650 mg 02/12/24 15:59 02/15/24 13:16 Acetaminophen Tab 325 Mg Tab PO 650 mg Q6HR PRN Administration Mild to Moderate Pain (1 - 6) Aspirin 81 mg 02/13/24 14:15 02/16/24 08:24 Aspirin 81 Mg PO 81 mg DAILY DURGA Administration Cilostazol 100 mg 02/13/24 21:00 02/16/24 08:24 Cilostazol 100 Mg Tab PO 100 mg BID DURGA Administration Cyanocobalamin 1,000 mcg 02/16/24 15:45 Cyanocobalamin 500 Mcg Tab PO 02/17/24 09:01 DAILY DURGA Cyanocobalamin 1,000 mcg 02/18/24 09:00 Cyanocobalamin 500 Mcg Tab PO DAILY DURGA Folic Acid 1 mg 02/16/24 15:45 Folic Acid 1 Mg Tab PO DAILY [facility] Sodium Chloride 1,000 mls @ 50 mls/hr 02/14/24 07:00 02/15/24 21:29 Saline 0.9% IV 50 mls/hr .Q20H DURGA Administration Sodium Chloride 1,000 mls @ 50 mls/hr 02/14/24 07:15 02/15/24 21:31 Saline 0.9% IV Not Given .Q20H [facility] Insulin Aspart 0 unit 02/13/24 07:30 02/16/24 12:15 Insulin Aspart (Novolog) 100 Unit/Ml Vial SQ Not Given [facility] Protocol Insulin Detemir 10 unit 02/17/24 09:00 Insulin Detemir (Levemir) 100 Unit/Ml Syr SQ DAILY [facility] Isosorbide Mononitrate 30 mg 02/13/24 14:15 02/16/24 08:24 Isosorbide Mononitrate Er 30 Mg Tab.Er.24h PO 30 mg DAILY DURGA Administration Linagliptin 5 mg 02/14/24 09:00 02/16/24 08:59 Linagliptin 5 Mg Tablet PO 5 mg DAILY DURGA Administration Losartan Potassium 50 mg 02/14/24 09:00 02/16/24 08:25 Losartan 50 Mg Tab PO 50 mg DAILY DURGA Administration Metoprolol Succinate 25 mg 02/14/24 09:00 02/16/24 08:25 Metoprolol Succinate (Er) 25 Mg Tab.Er.24h PO 25 mg DAILY DURGA Administration Mirtazapine 7.5 mg 02/13/24 21:00 02/15/24 21:25 Mirtazapine 15 Mg Tab PO 7.5 mg HS DURGA Administration Venlafaxine HCl 225 mg 02/14/24 09:00 02/16/24 08:25 Venlafaxine Hcl Er 75 Mg Cap PO 225 mg DAILY DURGA Administration Objective - Vital Signs Vital signs: Vital Signs Temp 98.2 F 02/16/24 12:54 Pulse 85 02/16/24 12:54 Resp 16 02/16/24 12:54 BP 152/80 02/16/24 12:54 Pulse Ox 99 02/16/24 12:54 FiO2 Intake & Output 02/15/24 02/16/24 02/16/24 18:59 06:59 18:59 Intake Total 014 442 2439 Balance 025 137 2217 Intake: Oral 371 470 7724 Other: Voiding Method External Catheter External Catheter External Catheter # Voids 3 - Labs CBC & Chem 7: 02/15/24 04:30 02/16/24 02:44 Labs: Abnormal Lab Results - Last 24 Hours (Table) 02/15/24 02/15/24 02/16/24 Range/Units 17:10 20:19 02:44 Est GFR (CKD-EPI) 51 L (>=60) BUN/Creatinine Ratio 22.33 H (12.00-20.00) Ratio Glucose 60 L (70-110) mg/dL POC Glucose (mg/dL) 231 H 270 H (70-110) mg/dL Calcium 8.6 L (8.7-10.3) mg/dL Transferrin 182.0 L (204.0-354.0) mg/dL Folate (4.40-31.00) ng/mL 02/16/24 02/16/24 02/16/24 Range/Units 02:44 07:08 07:10 Est GFR (CKD-EPI) (>=60) BUN/Creatinine Ratio (12.00-20.00) Ratio Glucose (70-110) mg/dL POC Glucose (mg/dL) 49 L* 49 L* (70-110) mg/dL Calcium (8.7-10.3) mg/dL Transferrin (204.0-354.0) mg/dL Folate 4.30 L (4.40-31.00) ng/mL 02/16/24 02/16/24 Range/Units 07:35 12:03 Est GFR (CKD-EPI) (>=60) BUN/Creatinine Ratio (12.00-20.00) Ratio Glucose (70-110) mg/dL POC Glucose (mg/dL) 61 L 141 H (70-110) mg/dL Calcium (8.7-10.3) mg/dL Transferrin (204.0-354.0) mg/dL Folate (4.40-31.00) ng/mL Microbiology - Last 24 Hours (Table) 02/12/24 15:00 Blood Culture Gram Stain - Final Blood Blood Culture - Final Staphylococcus hominis Molecular ID Assessment and Plan Assessment: Syncope thought secondary to low blood pressure and orthostatic hypotension Orthostatic hypotension anemia secondary to folate and B12 deficiency Diabetes mellitus with hypoglycemia Compression fracture of L3 Mild acute kidney injury on chronic kidney disease stage III Positive blood culture with Staph hominis most likely contamination Hypothyroidism, new onset Plan: Will check KUB Change insulin 15 units down to 10 units daily. Continue with insulin sliding scale ID team for positive blood culture most likely contamination Patient currently with no back pain.she can follow up with orthopedic as outpatinet for her L 3 fracture Monitor creatinine and hemoglobin Patient may benefit from orthopedic evaluation as an outpatient, however patient currently with no back pain or weakness or tingling of the lower extremity. No loss of bowel or urine control Cardiology consult for her syncope Give a bolus of 500 cc to help her with orthostatic hypotension Continue with levothyroxine, patient already started on 25 microunits with plan to increase it more gradually , recheck thyroid function tests in 4-6 weeks Start replacing therapy for B12 and folate, we will get his first IM B12 and then switch it to oral dose We recommend follow-up with masonry supervisor as an outpatient. Contact information for Dr. godinez is provided Continue with aspirin Continue with gentle hydration DVT prophylaxis start subcu heparin GI prophylaxis Protonix PT/OT Prognosis is guarded
[2024-02-17 07:34] LABS: Glucose,Whole Blood 416 mg/dL (70-110)
[2024-02-17] MEDS: PANTOPRAZOLE 40 MG TABLET PO SCH (07:52)
[2024-02-17] MEDS: INSULIN DETEMIR (LEVEMIR) 100 UNIT/ML SYR SQ SCH (07:57)
[2024-02-17 09:01] LABS: Basophils # (A) 0.03 X 10*3/uL (0.00-0.10); Basophils % (A) 0.7 %; Eosinophils # (A) 0.37 X 10*3/uL (0.04-0.35); Eosinophils % (A) 8.1 %; HGB 9.2 g/dL (12.0-15.0); Lymphocytes # (A) 1.76 X 10*3/uL (0.90-5.00); Lymphocytes % (A) 38.3 %; MCH 29.4 pg (27.0-32.0); MCHC 30.7 g/dL (32.0-37.0); MCV 95.8 FL (80.0-97.0); Mean Platelet Volume 10.7 FL (9.5-12.2); Monocytes # (A) 0.21 X 10*3/uL (0.20-1.00); Monocytes % (A) 4.6 %; NRBC Per 100 WBC 0 X 10*3/uL (0.00-0.01); Neutrophils # (A) 2.19 X 10*3/uL (1.80-7.70); Neutrophils % (A) 47.6 %; Platelet Count 235 X 10*3/uL (140-440); RBC 3.13 X 10*6/uL (4.10-5.20); RDW 14.7 % (11.5-14.5); WBC 4.59 X 10*3/uL (4.50-10.00)
[2024-02-17] MEDS: LEVOTHYROXINE 25 MCG TAB PO SCH (10:02)
--- NOTE | 2024-02-17 10:34 | P.CRDCN ---
History of Present Illness Consult date: 02/17/24 Reason for Consult (text): Syncope History of present illness: This is a 64-year-old female patient of Dr. Hammad Sierra with past medical history o f ischemic cardiomyopathy with EF of 45 to 50% with apical hypokinesis coronary artery disease with moderate disease in the LAD and circumflex, diabetes mellitus type 2, hyperlipidemia, hypertension. We have been asked to evaluate the patient for syncope. Patient presented to the hospital on 02/11 following a fall and hitting her head and weakness. Patient has some history of syncope details are not clear. She presented to the emergency center had a blood pressure of 65/46. Blood pressure 126/81, heart rate 98, pulse ox 96% on room air. Orthostatic vital signs positive. No complaints of chest pain or palpitations. EKG: Sinus rhythm with no acute changes Chest x-ray: No acute process Laboratory studies: WBC 4.9, hemoglobin 9.2. Initial creatinine 1.6 and now 1.2, potassium 4.7. Magnesium 2.0. Procalcitonin 0.08.'s Home cardiac medications: Aspirin 81 mg daily, Pletal 100 mg twice daily, Imdur 30 mg daily, losartan 50 mg daily, Toprol-XL 25 mg daily. 24-hour Holter monitor performed 12/19/2022 with no episodes of atrial fibrillation or flutter. No pauses, no AV block, no PVCs. Echocardiogram performed 06/05/2023 revealed EF of 45 to 50%, mild mitral, aortic, and tricuspid regurgitation. Cardiac catheterization performed 06/04/2023 revealed moderate CAD in the mid LAD, moderate CAD in the left circumflex. Review Of Systems: At the time of my exam: CONSTITUTIONAL: Denies fever or chills. HEENT: Denies blurred vision, vision changes, or eye pain. Denies hemoptysis CARDIOVASCULAR: Denies chest pain. Denies orthopnea. Denies PND. Denies palpitations RESPIRATORY: Denies shortness of breath. GASTROINTESTINAL: Denies abdominal pain. Denies nausea or vomiting. HEMATOLOGIC: Denies bleeding disorders. GENITOURINARY: Denies any blood in urine. SKIN: Denies puritis. Denies rash. Physical examination: Gen: This is a 64-year-old female appears to be in no acute distress VS: reviewed HEENT: Head is atraumatic, normocephalic. Pupils equal, round. Sclerae is anicteric. NECK: Supple. No JVD. LUNGS: Clear to auscultation. No wheezes or rhonchi. No intercostal retraction s. HEART: Regular rate and rhythm. No murmur. ABDOMEN: Soft No tenderness. EXTREMITIES: No pedal edema. No calf tenderness. NEUROLOGICAL: Patient is awake, alert. Assessment: Orthostatic hypotension Diabetic autonomic dysfunction Syncopal episode secondary to hypotension and orthostatic hypotension Ischemic cardiomyopathy with a EF of 45 to 50% with apical hypokinesis, coronary artery disease with moderate disease in the LAD and circumflex Diabetes mellitus type 2 Hypertension Hyperlipidemia Compression fracture of L3 Acute kidney injury, resolved Plan: Continue current cardiac medications, change losartan to nighttime Add midodrine 5 mg 3 times daily and hold for systolic blood pressure 150 or greater Monitor patient on telemetry Obtain event monitor 14 days Patient to follow-up with Dr. Hammad Sierra in 4 weeks Or overnight and plan for discharge home tomorrow Further recommendations to follow based upon clinical course Thank you kindly for this consultation. Nurse practitioner note has been reviewed, I agree with documented findings and plan of care. Patient was seen and examined. Past Medical History Past Medical History: Coronary Artery Disease (CAD), Cancer, COPD, CVA/TIA, Diabetes Mellitus, Deep Vein Thrombosis (DVT), Eye Disorder, GERD/Reflux, Hyperlipidemia, Hypertension, Myocardial Infarction ([place]), Renal Disease, Rheumatoid Arthritis ([place]), Syncope, Thyroid Disorder Additional Past Medical History / Comment(s): 09/16/16 with SBO with surgery/possible septic emboli with cavitary lesions bilateral lungs. Hx: left renal cell carcinoma with partial nephrectomy. 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 DVT left leg 7-8 yrs ago. hypothyroidism, chronic back pain, degenerative disks, hx UTI with sepsis secondary to ESBL producing E. coli 2015 requiring PICC line insertion for IV antibiotics. restless leg syndrome, peripheral neuropathy. Hx bilateral glaucoma, hx syncope r/t low blood sugars. No CPAP use. Last Myocardial Infarction Date:: 2019 History of Any Multi-Drug Resistant Organisms: ESBL, MRSA, VRE Date of last positivie culture/infection: 05/07/16 ESBL, 05/15/16 VRE, MRSA 09/2017 - upper lip MDRO Source:: URINE E.COLI, EC GALLINARUM Past Surgical History: Appendectomy, Bowel Resection, Section, Heart Catheterization, Heart Catheterization With Stent, Hernia Repair Additional Past Surgical History / Comment(s): 09/30 exploratory laparotomy with lysis of adhesions, bowel resection d/t obstruction. repair incarcerated incisional hernia with abdominal washout. thyroidectomy(non functioning). heart cath 06/28 - 100% occluded, unable to stent. partial left nephrectomy for left kidney renal cell carcinoma. colonoscopy, bilateral cataract removal with lens implants, 2 Sections. cardiac stent 03/2021 Past Anesthesia/Blood Transfusion Reactions: No Reported Reaction Date of Last Stent Placement:: 04/06/2021 Past Psychological History: Depression Smoking Status: Former smoker Past Alcohol Use History: None Reported Past Drug Use History: Marijuana - Past Family History Sister(s) Family Medical History: Cancer, Deep Vein Thrombosis (DVT) Additional Family Medical History / Comment(s): Patient has one sister that from liver cancer. Brother(s) Family Medical History: Cancer, Deep Vein Thrombosis (DVT) Additional Family Medical History / Comment(s): Patient has 1 brother with past ETOH, past drug abuse, DVTs. She has a second brother that has from throat cancer. Daughter(s) Family Medical History: Diabetes Mellitus, Myocardial Infarction ([place]) Additional Family Medical History / Comment(s): Daughter at 23 yrs old from massive [place]. Father Family Medical History: Myocardial Infarction ([place]) Additional Family Medical History / Comment(s): from [place] at age 44 Mother Family Medical History: Cancer Additional Family Medical History / Comment(s): B/L breast cancer Medications and Allergies Home Medications Medication Instructions Recorded Confirmed Type Venlafaxine HCl [Effexor XR] 225 mg PO DAILY 10/21/16 02/12/24 History Pantoprazole Sodium [Protonix] 40 mg PO BID 04/06/20 02/12/24 History Aspirin EC [Ecotrin Low Dose] 81 mg PO DAILY 10/03/22 02/12/24 History Isosorbide Mononitrate ER [Imdur] 30 mg PO DAILY 04/10/23 02/12/24 History Mirtazapine 7.5 mg PO HS 04/10/23 02/12/24 History cilostazoL [Pletal] 100 mg PO BID 08/02/23 02/12/24 History Losartan [Cozaar] 50 mg PO DAILY #60 tab 08/05/23 02/12/24 Rx Metoprolol Succinate (ER) [Toprol 25 mg PO DAILY #60 tab 08/05/23 02/12/24 Rx XL] Linagliptin [Tradjenta] 5 mg PO DAILY #30 tab 09/05/23 02/12/24 Rx Glucagon [Gvoke Pfs 1-Pack Syringe] 1 mg SQ DIRECTED PRN 02/12/24 02/12/24 History INSULIN LISPRO (HumaLOG) [humaLOG] 4 units SQ AC-TID 02/12/24 02/12/24 History INSULIN LISPRO (HumaLOG) [humaLOG] See Protocol SQ ACHS 02/12/24 02/12/24 History Insulin Glargine [Lantus Vial] 10 unit SQ DAILY 02/12/24 02/12/24 History Allergies Allergy/AdvReac Type Severity Reaction Status Date / Time grass pollen Allergy Unknown Verified 02/12/24 16:06 latex Allergy Rash/Hives Verified 02/12/24 16:06 Sulfa (Sulfonamide Allergy Rash/Hives/ Verified 02/12/24 16:06 Antibiotics) Swelling venom-honey bee Allergy Anaphylaxis Verified 02/12/24 16:06 prochlorperazine edisylate AdvReac Vomiting Verified 02/12/24 16:06 [From Compazine] Physical Exam Vitals: Vital Signs Temp Pulse Pulse Pulse Pulse Pulse Resp 02/17/24 09:05 93 98 95 02/17/24 07:39 98.1 F 84 16 02/17/24 00:56 98.2 F 88 18 02/16/24 20:05 97 02/16/24 18:57 98.6 F 101 H 100 95 17 02/16/24 12:54 98.2 F 92 92 85 16 BP BP BP BP Pulse Ox 02/17/24 09:05 147/86 126/81 150/84 02/17/24 07:39 154/83 96 02/17/24 00:56 130/73 96 02/16/24 20:05 02/16/24 18:57 109/72 134/77 147/79 96 02/16/24 12:54 126/73 129/73 152/80 99 Intake and Output 02/16/24 02/17/24 02/17/24 22:59 06:59 14:59 Intake Total 236 Balance 236 Intake: Oral 236 Other: Voiding Method Toilet Incontinent # Voids 2 1 Results 02/17/24 06:16 02/16/24 02:44 CBC 02/17/24 Range/Units 06:16 WBC 4.59 (4.50-10.00) X 10*3/uL RBC 3.13 L (4.10-5.20) X 10*6/uL Hgb 9.2 L (12.0-15.0) g/dL Hct 30.0 L (37.2-46.3) % Plt Count 235 (140-440) X 10*3/uL Comprehensive Metabolic Panel 02/16/24 Range/Units 02:44 Sodium 139 (135-145) mmol/L Potassium 4.7 (3.5-5.5) mmol/L Chloride 108 (96-109) mmol/L Carbon Dioxide 22.0 (21.6-31.8) mmol/L BUN 26.8 (9.0-27.0) mg/dL Creatinine 1.2 (0.6-1.5) mg/dL Glucose 60 L (70-110) mg/dL Calcium 8.6 L (8.7-10.3) mg/dL Current Medications Generic Name Dose Route Start Last Admin Trade Name Freq PRN Reason Stop Dose Admin Acetaminophen 650 mg 02/12/24 15:59 02/16/24 21:35 Acetaminophen Tab 325 Mg Tab PO 650 mg Q6HR PRN Administration Mild to Moderate Pain (1 - 6) Aspirin 81 mg 02/13/24 14:15 02/17/24 07:52 Aspirin 81 Mg PO 81 mg DAILY DURGA Administration Cilostazol 100 mg 02/13/24 21:00 02/17/24 07:53 Cilostazol 100 Mg Tab PO 100 mg BID DURGA Administration Cyanocobalamin 1,000 mcg 02/18/24 09:00 Cyanocobalamin 500 Mcg Tab PO DAILY DURGA Folic Acid 1 mg 02/16/24 15:45 02/17/24 07:53 Folic Acid 1 Mg Tab PO 1 mg DAILY DURGA Administration Heparin Sodium (Porcine) 5,000 unit 02/16/24 21:00 02/17/24 07:57 Heparin Sodium,Porcine 5,000 Unit/Ml 1 Ml Vial SQ 5,000 unit Q12HR DURGA Administration Sodium Chloride 1,000 mls @ 50 mls/hr 02/14/24 07:15 02/17/24 07:57 Saline 0.9% IV 50 mls/hr .Q20H DURGA Administration Insulin Aspart 0 unit 02/13/24 07:30 02/17/24 07:56 Insulin Aspart (Novolog) 100 Unit/Ml Vial SQ 12 unit ACHS DURGA Administration Protocol Insulin Detemir 10 unit 02/17/24 09:00 02/17/24 07:57 Insulin Detemir (Levemir) 100 Unit/Ml Syr SQ 10 unit DAILY DURGA Administration Isosorbide Mononitrate 30 mg 02/13/24 14:15 02/17/24 07:55 Isosorbide Mononitrate Er 30 Mg Tab.Er.24h PO 30 mg DAILY DURGA Administration Levothyroxine Sodium 25 mcg 02/17/24 08:00 Levothyroxine 25 Mcg Tab PO DAILY@0630 DURGA Linagliptin 5 mg 02/14/24 09:00 02/17/24 07:52 Linagliptin 5 Mg Tablet PO 5 mg DAILY DURGA Administration Losartan Potassium 50 mg 02/14/24 09:00 02/17/24 07:55 Losartan 50 Mg Tab PO 50 mg DAILY DURGA Administration Metoprolol Succinate 25 mg 02/14/24 09:00 02/17/24 07:52 Metoprolol Succinate (Er) 25 Mg Tab.Er.24h PO 25 mg DAILY DURGA Administration Mirtazapine 7.5 mg 02/13/24 21:00 02/17/24 07:54 Mirtazapine 15 Mg Tab PO 7.5 mg HS DURGA Administration Pantoprazole Sodium 40 mg 02/17/24 07:30 02/17/24 07:52 Pantoprazole 40 Mg Tablet PO 40 mg [id number] DURGA Administration Venlafaxine HCl 225 mg 02/14/24 09:00 02/17/24 07:51 Venlafaxine Hcl Er 75 Mg Cap PO 225 mg DAILY DURGA Administration Intake and Output 02/16/24 02/17/24 02/17/24 22:59 06:59 14:59 Intake Total 236 Balance 236 Intake: Oral 236 Other: Voiding Method Toilet Incontinent # Voids 2 1 02/17/24 06:16 02/16/24 02:44
[2024-02-17 10:59] LABS: BUN/Creat Ratio 19.58 Ratio (12.00-20.00); Blood Urea Nitrogen 23.5 mg/dL (9.0-27.0); Calcium 8.3 mg/dL (8.7-10.3); Carbon Dioxide 21.8 mmol/L (21.6-31.8); Chloride 106 mmol/L (96-109); Glucose 458 mg/dL (70-110); Potassium 5.2 mmol/L (3.5-5.5); Sodium 138 mmol/L (135-145)
[2024-02-17 12:11] LABS: Glucose,Whole Blood 193 mg/dL (70-110)
[2024-02-17] MEDS: MIDODRINE 5 MG TAB PO SCH (13:04)
--- NOTE | 2024-02-17 16:28 | P.PN ---
Subjective Progress Note Date: 02/17/24 Principal diagnosis: Reason for follow-up is positive blood culture Patient is a 64-year-old female with a past medical history significant for diabetes mellitus DVT hypertension hyperlipidemia [place] rheumatoid arthritis,coronary disease CVA TIA patient was brought into the hospital after apparently the patient did have a syncopal episode resulting in a fall patient did have a positive blood culture prompting this consultation. On today's evaluation that is 02/17/2024, Patient is afebrile patient is currently on room air and denies having any shortness of breath, the patient denies any chest pain or cough, the patient denies any nausea vomiting did not have any abdominal pain and no diarrhea. Patient white count is 4.59, creatinine is 1.2 Objective - Vital Signs Vital signs: Vital Signs Temp 98.3 F 02/17/24 12:04 Pulse 85 02/17/24 12:04 Resp 16 02/17/24 12:04 BP 126/69 02/17/24 12:04 Pulse Ox 98 02/17/24 12:04 FiO2 Intake & Output 02/16/24 02/17/24 02/17/24 18:59 06:59 18:59 Intake Total 1248 118 Balance 1248 118 Intake: Oral 1248 118 Other: Voiding Method External Catheter Toilet Toilet Incontinent Diaper Incontinent # Voids 2 1 - Exam GENERAL DESCRIPTION: Middle-age female lying in bed in no distress RESPIRATORY SYSTEM: Unlabored breathing , decreased breath sounds at bases HEART: S1 S2 regular rate and rhythm , ABDOMEN: Soft , no tenderness EXTREMITIES: No edema feet - Labs CBC & Chem 7: 02/17/24 06:16 02/17/24 06:16 Labs: Abnormal Lab Results - Last 24 Hours (Table) 02/16/24 02/17/24 02/17/24 Range/Units 17:01 02:04 06:16 RBC 3.13 L (4.10-5.20) X 10*6/uL Hgb 9.2 L (12.0-15.0) g/dL Hct 30.0 L (37.2-46.3) % MCHC 30.7 L (32.0-37.0) g/dL RDW 14.7 H (11.5-14.5) % Eosinophils # 0.37 H (0.04-0.35) X 10*3/uL Est GFR (CKD-EPI) (>=60) Glucose (70-110) mg/dL POC Glucose (mg/dL) 363 H 344 H (70-110) mg/dL Calcium (8.7-10.3) mg/dL 02/17/24 02/17/24 02/17/24 Range/Units 06:16 07:33 12:10 RBC (4.10-5.20) X 10*6/uL Hgb (12.0-15.0) g/dL Hct (37.2-46.3) % MCHC (32.0-37.0) g/dL RDW (11.5-14.5) % Eosinophils # (0.04-0.35) X 10*3/uL Est GFR (CKD-EPI) 51 L (>=60) Glucose 458 H (70-110) mg/dL POC Glucose (mg/dL) 416 H 193 H (70-110) mg/dL Calcium 8.3 L (8.7-10.3) mg/dL Assessment and Plan (1) Positive blood culture Current Visit: Yes Status: Acute Code(s): R78.81 - BACTEREMIA SNOMED Code(s): 393032605 Plan: 1patient with a positive blood culture with gram-positive cocci this patient presented to hospital after the patient did have a fall and apparently syncopal episode patient did not have any fever or elevated white count and initial workup has been negative chest x-ray was negative patient do not have any joint swelling or cellulitis likely skin contamination 2-blood culture finalized with Streptococcus hominis likely skin miguelito, patient did have normal inflammatory markers and more likely representing skin contamination no need for antibiotics at this point Dictation was produced using [employer] dictation software. please excuse any grammatical, word or spelling errors. Time with Patient: Less than 30
[2024-02-17 16:55] LABS: Glucose,Whole Blood 198 mg/dL (70-110)
[2024-02-17 19:57] LABS: Glucose,Whole Blood 226 mg/dL (70-110)
[2024-02-17] MEDS: LOSARTAN 50 MG TAB PO SCH (20:18)
--- NOTE | 2024-02-17 23:20 | P.PN ---
Subjective Progress Note Date: 02/17/24 HISTORY OF PRESENT ILLNESS: 64-year-old with active medical history of type 2 diabetes with noncompliance, history of hypertension, hyperlipidemia, DVT, CAD, COPD, multiple visit to the emergency department at the hospital with hyper/hypoglycemic episode with multiple event for syncope and presyncope in the past required the challenge connected with diabetic management through her insulin pump. Patient was hospitalized on February 12, 2024 after fall with significant back pain and hip back of her head and felt very lightheaded and dizzy history of syncope was not witnessed not clear if she has any injury apparently at the emergency department CT of the head cervical spine was unremarkable chest x-ray did not show any major abnormality. Patient continued to be seen for her current symptoms still on hydration no further episode of syncope continue to have hyperglycemia wi thout acidosis with mild hyponatremia. 02/17/2024: Patient is very stable still having slight bit of problem with hypo- /hyperglycemic episode despite being on Levemir 10 units in the morning and NovoLog AC meals plus sliding scales continue to have significant problem with hyperglycemia and occasional hypoglycemia as well. Was not doing well on insulin pump early with some of her symptoms still can be reportedly claim on hypomore than hyperglycemia especially while she is on insulin pump knowing that the patient had claimed that she quit her insulin pump a week or so before her admission. She is still waiting for cardiology consultation today, mobility still slightly decreased but patient is able to ambulate and observed by nurse and aide has been doing well and steady on her feet. REVIEW OF SYSTEMS: CONSTITUTIONAL: Well-developed no acute respiratory distress. EYES: No icterus sclerae, no conjunctivitis. EARS, NOSE, MOUTH, THROAT, and FACE: No sore throat, lymphadenopathy, carotid bruits or deformity. RESPIRATORY: No SOB cough or wheezes. CARDIOVASCULAR: No CP, Palpitation, PND, Orthopnea, or angina. Mild arrhythmia. GASTROINTESTINAL: Slight increased heartburn with nausea no vomiting diarrhea or constipation no GI bleed or distention. GENITOURINARY: Negative for Hematuria or UTI, no kidney stones. More frequency and urgency. INTEGUMENT/BREAST: Negative for any muscular injury with mild osteoarthritis.. HEMATOLOGIC/LYMPHATIC: Negative for bleed or purpura. MUSCULOSKELTAL: Negative for Myalgia or arthralgia. NEURLOGICAL: Had syncopal episode with no residual weakness left afterward has not been having problem except she still have trouble with balance and gait. BEHAVIORAL/PSYCH: Negative. ENDOCRINE: Negative. PHYSICAL EXAMINATION: General Appearance: Alert, cooperative, no distress, appears stated age. Neck HEENT: Supple, no lymphadenopathy, no thyroid enlargement, no carotid bruits. Lungs: Clear to auscultation without crackles or wheezes no rhonchi, no deformity. Chest Wall: Chest wall normal expansion with deep inspiration no tenderness and no deformity was found on exam, no costochondral pain or discomfort. Heart: Regular rate and rhythm, S1, S2 normal, no murmur, rub or gallop. Back: Symmetric, no curvature, ROM normal, no CVA tenderness. Abdomen: Soft, non-tender, bowel sounds active all four quadrants, no masses, no organomegaly. Extremities: Extremities normal, atraumatic, no cyanosis or edema. Pulses: 2+ and symmetric. Skin: Skin color, texture, tugor normal, no rashes or lesions. Neurologic: Alert oriented x3 cranial nerves II through XII intact, no motor deficit, no abnormal balance or gait. ASSESSMENT AND PLAN: _Syncopal episode: Still on testing remain on heart monitor continue gentle hydration still watching symptoms carefully no orthostatic change at this point. Still will be seen cardiology testing including Echocardiogram might be done and continue to watch for any significant orthostatic or hypotension the patient might benefit from continued glucose monitor along with continue heart monitor for total of 2 weeks. _Type 2 diabetes with severe hyperglycemia/hypoglycemia as well has been on insulin pump which is always malfunctioning was referred to endocrinology several times to have her off insulin pump on short and long-acting insulin still not well-managed. Patient has hyperglycemia without acidosis at this point _Hypothyroidism: Continue levothyroxine at 50 mcg daily. _Hypertension: Remain on losartan 50 and metoprolol 25 mg daily. _Chronic history of anxiety and depression remain on Effexor XR 75 mg a day along with Remeron 7.5 mg daily. _Hyponatremia most likely associated with hyperglycemia Again continue to watch her sodium level daily. _Anemia: Mostly chronic disease with hemoglobin still running at 9.3. _Acute kidney injury with chronic kidney disease stage III chronic kidney disease mostly diabetic nephropathy stable. _GI prophylaxis: Still on PPI. Discharge planning: Titrate physical therapy and activity finalize consultation and try to control her blood sugar slightly bit better and prepare hopefully for home in the next 24 hours. Objective - Vital Signs Vital signs: Vital Signs Temp 98.2 F 02/17/24 00:56 Pulse 88 02/17/24 00:56 Resp 18 02/17/24 00:56 BP 130/73 02/17/24 00:56 Pulse Ox 96 02/17/24 00:56 FiO2 Intake & Output 02/16/24 02/16/24 02/17/24 06:59 18:59 06:59 Intake Total 118 1248 118 Balance 118 1248 118 Intake: Oral 118 1248 118 Other: Voiding Method External Catheter External Catheter Toilet Incontinent # Voids 3 2 1 - Labs CBC & Chem 7: 02/17/24 06:16 02/17/24 06:16 Labs: Abnormal Lab Results - Last 24 Hours (Table) 02/16/24 02/16/24 02/16/24 Range/Units 02:44 02:44 07:08 Est GFR (CKD-EPI) 51 L (>=60) BUN/Creatinine Ratio 22.33 H (12.00-20.00) Ratio Glucose 60 L (70-110) mg/dL POC Glucose (mg/dL) 49 L* (70-110) mg/dL Calcium 8.6 L (8.7-10.3) mg/dL Transferrin 182.0 L (204.0-354.0) mg/dL Folate 4.30 L (4.40-31.00) ng/mL 02/16/24 02/16/24 02/16/24 Range/Units 07:10 07:35 12:03 Est GFR (CKD-EPI) (>=60) BUN/Creatinine Ratio (12.00-20.00) Ratio Glucose (70-110) mg/dL POC Glucose (mg/dL) 49 L* 61 L 141 H (70-110) mg/dL Calcium (8.7-10.3) mg/dL Transferrin (204.0-354.0) mg/dL Folate (4.40-31.00) ng/mL 02/16/24 02/17/24 Range/Units 17:01 02:04 Est GFR (CKD-EPI) (>=60) BUN/Creatinine Ratio (12.00-20.00) Ratio Glucose (70-110) mg/dL POC Glucose (mg/dL) 363 H 344 H (70-110) mg/dL Calcium (8.7-10.3) mg/dL Transferrin (204.0-354.0) mg/dL Folate (4.40-31.00) ng/mL
[2024-02-18 01:25] LABS: Glucose,Whole Blood 98 mg/dL (70-110)
[2024-02-18 07:05] LABS: Glucose,Whole Blood 223 mg/dL (70-110)
[2024-02-18 07:48] VITALS: RESP 16; TEMP 98.4
[2024-02-18] MEDS: CYANOCOBALAMIN 500 MCG TAB PO SCH (08:41)
[2024-02-18 08:47] LABS: HCT 30.8 % (37.2-46.3); HGB 9.7 g/dL (12.0-15.0); MCH 29.8 pg (27.0-32.0); MCHC 31.5 g/dL (32.0-37.0); MCV 94.8 FL (80.0-97.0); Mean Platelet Volume 10.8 FL (9.5-12.2); NRBC Per 100 WBC 0 X 10*3/uL (0.00-0.01); Platelet Count 252 X 10*3/uL (140-440); RBC 3.25 X 10*6/uL (4.10-5.20); RDW 14.6 % (11.5-14.5); WBC 5.16 X 10*3/uL (4.50-10.00)
[2024-02-18 09:35] LABS: BUN/Creat Ratio 15.92 Ratio (12.00-20.00); Blood Urea Nitrogen 19.1 mg/dL (9.0-27.0); Glucose 109 mg/dL (70-110)
[2024-02-18 09:36] LABS: ALT 15 U/L (8-44); AST 31 U/L (13-35); Albumin 3.3 g/dL (3.8-4.9); Albumin/Globulin Ratio 1.65 Ratio (1.60-3.17); Alkaline Phosphatase 105 U/L (41-126); Calcium 8.4 mg/dL (8.7-10.3); Carbon Dioxide 24.1 mmol/L (21.6-31.8); Chloride 105 mmol/L (96-109); Potassium 4.4 mmol/L (3.5-5.5); Sodium 139 mmol/L (135-145); Total Bilirubin <0.2 mg/dL (0.3-1.2); Total Protein 5.3 g/dL (6.2-8.2)
[2024-02-18 12:03] LABS: Glucose,Whole Blood 327 mg/dL (70-110)
[2024-02-18 12:34] VITALS: BP 133/74; PULSE 78
--- NOTE | 2024-02-18 13:33 | P.PN ---
Subjective Progress Note Date: 02/18/24 Reason for Consult (text): Syncope History of present illness: This is a 64-year-old female patient of Dr. Hammad Sierra with past medical history of ischemic cardiomyopathy with EF of 45 to 50% with apical hypokinesis coronary artery disease with moderate disease in the LAD and circumflex, diabetes mellitus type 2, hyperlipidemia, hypertension. We have been asked to evaluate the patient for syncope. Patient presented to the hospital on 02/11 following a fall and hitting her head and weakness. Patient has some history of syncope details are not clear. She presented to the emergency center had a blood pressure of 65/46. Blood pressure 126/81, heart rate 98, pulse ox 96% on room air. Orthostatic vital signs positive. No complaints of chest pain or palpitations. EKG: Sinus rhythm with no acute changes Chest x-ray: No acute process Laboratory studies: WBC 4.9, hemoglobin 9.2. Initial creatinine 1.6 and now 1.2, potassium 4.7. Magnesium 2.0. Procalcitonin 0.08.'s Home cardiac medications: Aspirin 81 mg daily, Pletal 100 mg twice daily, Imdur 30 mg daily, losartan 50 mg daily, Toprol-XL 25 mg daily. 24-hour Holter monitor performed 12/19/2022 with no episodes of atrial fibrillation or flutter. No pauses, no AV block, no PVCs. Echocardiogram performed 06/05/2023 revealed EF of 45 to 50%, mild mitral, aortic, and tricuspid regurgitation. Cardiac catheterization performed 06/04/2023 revealed moderate CAD in the mid LAD, moderate CAD in the left circumflex. 02/17 Patient is seen today in follow-up. Blood pressure 133/74, heart rate 78, pulse ox 98% on room air. Orthostatic vital signs this morning were positive. Blood pressure at standing was 127/79. Repeat blood work reveals hemoglobin 9.7, creatinine 1.2, potassium 4.4. Physical examination: Gen: This is a 64-year-old female appears to be in no acute distress VS: reviewed HEENT: Head is atraumatic, normocephalic. Pupils equal, round. Sclerae is anicteric. NECK: Supple. No JVD. LUNGS: Clear to auscultation. No wheezes or rhonchi. No intercostal retractions. HEART: Regular rate and rhythm. No murmur. ABDOMEN: Soft No tenderness. EXTREMITIES: No pedal edema. No calf tenderness. NEUROLOGICAL: Patient is awake, alert. Assessment: Orthostatic hypotension Diabetic autonomic dysfunction Syncopal episode secondary to hypotension and orthostatic hypotension Ischemic cardiomyopathy with a EF of 45 to 50% with apical hypokinesis, coronary artery disease with moderate disease in the LAD and circumflex Diabetes mellitus type 2 Hypertension Hyperlipidemia Compression fracture of L3 Acute kidney injury, resolved Plan: Continue current cardiac medications, change losartan to nighttime Continue midodrine 5 mg 3 times daily and hold for systolic blood pressure 150 o r greater Monitor patient on telemetry Obtain event monitor 14 days Patient to follow-up with Dr. Hammad Sierra in 4 weeks Patient is cleared for discharge from cardiology Cardiology will sign off this case and follow on an as-needed basis. Please reconsult for any new concerns. Nurse practitioner note has been reviewed, I agree with documented findings and plan of care. Patient was seen and examined. Objective - Vital Signs Vital signs: Vital Signs Temp 98.4 F 02/18/24 07:01 Pulse 74 02/18/24 07:01 Resp 16 02/18/24 07:01 BP 161/80 02/18/24 07:01 Pulse Ox 96 02/18/24 07:01 FiO2 Intake & Output 02/17/24 02/18/24 02/18/24 18:59 06:59 18:59 Other: Voiding Method Toilet Toilet Diaper Diaper Incontinent Incontinent # Voids 1 1 - Labs CBC & Chem 7: 02/18/24 03:28 02/18/24 03:28 Labs: Abnormal Lab Results - Last 24 Hours (Table) 02/17/24 02/17/24 02/17/24 Range/Units 12:10 16:54 19:48 RBC (4.10-5.20) X 10*6/uL Hgb (12.0-15.0) g/dL Hct (37.2-46.3) % MCHC (32.0-37.0) g/dL RDW (11.5-14.5) % Est GFR (CKD-EPI) (>=60) POC Glucose (mg/dL) 193 H 198 H 226 H (70-110) mg/dL Calcium (8.7-10.3) mg/dL Total Bilirubin (0.3-1.2) mg/dL Total Protein (6.2-8.2) g/dL Albumin (3.8-4.9) g/dL 02/18/24 02/18/24 02/18/24 Range/Units 03:28 03:28 07:04 RBC 3.25 L (4.10-5.20) X 10*6/uL Hgb 9.7 L (12.0-15.0) g/dL Hct 30.8 L (37.2-46.3) % MCHC 31.5 L (32.0-37.0) g/dL RDW 14.6 H (11.5-14.5) % Est GFR (CKD-EPI) 51 L (>=60) POC Glucose (mg/dL) 223 H (70-110) mg/dL Calcium 8.4 L (8.7-10.3) mg/dL Total Bilirubin <0.2 L (0.3-1.2) mg/dL Total Protein 5.3 L (6.2-8.2) g/dL Albumin 3.3 L (3.8-4.9) g/dL
--- NOTE | 2024-02-19 14:39 | P.PN ---
Subjective Progress Note Date: 02/18/24 Principal diagnosis: Reason for follow-up is positive blood culture Patient is a 64-year-old female with a past medical history significant for diabetes mellitus DVT hypertension hyperlipidemia OH rheumatoid arthritis,coronary disease CVA TIA patient was brought into the hospital after apparently the patient did have a syncopal episode resulting in a fall patient did have a positive blood culture prompting this consultation. On today's evaluation that is 02/18/2024, patient has been afebrile, patient is breathing comfortably and is currently on room air, patient denies having any significant cough no chest pain shortness of breath, patient denies nausea vomiting or diarrhea and no abdominal pain no new symptoms. Patient white count is 5.16, creatinine is 1.2 Objective - Vital Signs Vital signs: Vital Signs Temp 98.4 F 02/18/24 11:58 Pulse 78 02/18/24 11:58 Resp 16 02/18/24 11:58 BP 133/74 02/18/24 11:58 Pulse Ox 98 02/18/24 11:58 FiO2 Intake & Output 02/17/24 02/18/24 02/18/24 18:59 06:59 18:59 Other: Voiding Method Toilet Toilet Diaper Diaper Incontinent Incontinent # Voids 1 1 - Exam GENERAL DESCRIPTION: Middle-age female lying in bed in no distress RESPIRATORY SYSTEM: Unlabored breathing , decreased breath sounds at bases HEART: S1 S2 regular rate and rhythm , ABDOMEN: Soft , no tenderness EXTREMITIES: No edema feet - Labs CBC & Chem 7: 02/18/24 03:28 02/18/24 03:28 Labs: Abnormal Lab Results - Last 24 Hours (Table) 02/17/24 02/17/24 02/18/24 Range/Units 16:54 19:48 03:28 RBC 3.25 L (4.10-5.20) X 10*6/uL Hgb 9.7 L (12.0-15.0) g/dL Hct 30.8 L (37.2-46.3) % MCHC 31.5 L (32.0-37.0) g/dL RDW 14.6 H (11.5-14.5) % Est GFR (CKD-EPI) (>=60) POC Glucose (mg/dL) 198 H 226 H (70-110) mg/dL Calcium (8.7-10.3) mg/dL Total Bilirubin (0.3-1.2) mg/dL Total Protein (6.2-8.2) g/dL Albumin (3.8-4.9) g/dL 02/18/24 02/18/24 02/18/24 Range/Units 03:28 07:04 12:02 RBC (4.10-5.20) X 10*6/uL Hgb (12.0-15.0) g/dL Hct (37.2-46.3) % MCHC (32.0-37.0) g/dL RDW (11.5-14.5) % Est GFR (CKD-EPI) 51 L (>=60) POC Glucose (mg/dL) 223 H 327 H (70-110) mg/dL Calcium 8.4 L (8.7-10.3) mg/dL Total Bilirubin <0.2 L (0.3-1.2) mg/dL Total Protein 5.3 L (6.2-8.2) g/dL Albumin 3.3 L (3.8-4.9) g/dL Assessment and Plan (1) Positive blood culture Status: Acute Code(s): R78.81 - BACTEREMIA SNOMED Code(s): 716041739 Plan: 1patient with a positive blood culture with gram-positive cocci this patient presented to hospital after the patient did have a fall and apparently syncopal episode patient did not have any fever or elevated white count and initial workup has been negative chest x-ray was negative patient do not have any joint swelling or cellulitis likely skin contamination 2-blood culture finalized with Streptococcus hominis likely skin miguelito, patient did have normal inflammatory markers and more likely representing skin contamination, no need for antibiotics on discharge Dictation was produced using [employer] dictation software. please excuse any grammatical, word or spelling errors. Time with Patient: Less than 30
--- NOTE | 2024-02-19 23:18 | P.DS ---
Providers Date of admission: 02/12/24 15:28 Attending physician: Gage Sy Consults: 02/14/24 06:58 Consult Physician Routine Consulting Provider: Angelita Santos Consult Reason/Comments: positive culture Do you want consulting provider notified?: Yes 02/16/24 15:42 Consult Physician Routine Consulting Provider: Mckenzie Cardoso Consult Reason/Comments: syncope Do you want consulting provider notified?: Yes Primary care physician: [facility] Course: HISTORY OF PRESENT ILLNESS: 64-year-old with active medical history of type 2 diabetes with noncompliance, history of hypertension, hyperlipidemia, DVT, CAD, COPD, multiple visit to the emergency department at the hospital with hyper/hypoglycemic episode with multiple event for syncope and presyncope in the past required the challenge connected with diabetic management through her insulin pump. Patient was hospitalized on February 12, 2024 after fall with significant back pain and hip back of her head and felt very lightheaded and dizzy history of syncope was not witnessed not clear if she has any injury apparently at the emergency department CT of the head cervical spine was unremarkable chest x-ray did not show any major abnormality. Patient continued to be seen for her current symptoms still on hydration no further episode of syncope continue to have hyperglycemia without acidosis with mild hyponatremia. 02/17/2024: Patient is very stable still having slight bit of problem with hypo- /hyperglycemic episode despite being on Levemir 10 units in the morning and NovoLog AC meals plus sliding scales continue to have significant problem with hyperglycemia and occasional hypoglycemia as well. Was not doing well on insulin pump early with some of her symptoms still can be reportedly claim on hypomore than hyperglycemia especially while she is on insulin pump knowing that the patient had claimed that she quit her insulin pump a week or so before her admission. She is still waiting for cardiology consultation today, mobility still slightly decreased but patient is able to ambulate and observed by nurse and aide has been doing well and steady on her feet. 02/18/2024: She is doing much better she is having less worsening symptoms with no sign of syncope anymore she had orthostatic hypotension was treated with midodrine with significant improvement, also ischemic cardiomyopathy ejection fraction of 45-50 percentile with apical hypokinesia with coronary artery disease with moderate disease in the LAD along with a circumflex. Seen and evaluated by cardiology and agree for longer-term heart monitor upon discharge. Also patient is very stable medically on 02/18/2024 will be able to be discharged an appointment with cardiology in the next 4 weeks but she will have her continue heart monitor for total of 2 weeks. REVIEW OF SYSTEMS: CONSTITUTIONAL: Well-developed no acute respiratory distress. EYES: No icterus sclerae, no conjunctivitis. EARS, NOSE, MOUTH, THROAT, and FACE: No sore throat, lymphadenopathy, carotid bruits or deformity. RESPIRATORY: No SOB cough or wheezes. CARDIOVASCULAR: No CP, Palpitation, PND, Orthopnea, or angina. Mild arrhythmia. GASTROINTESTINAL: Slight increased heartburn with nausea no vomiting diarrhea or constipation no GI bleed or distention. GENITOURINARY: Negative for Hematuria or UTI, no kidney stones. More frequency and urgency. INTEGUMENT/BREAST: Negative for any muscular injury with mild osteoarthritis.. HEMATOLOGIC/LYMPHATIC: Negative for bleed or purpura. MUSCULOSKELTAL: Negative for Myalgia or arthralgia. NEURLOGICAL: Had syncopal episode with no residual weakness left afterward has not been having problem except she still have trouble with balance and gait. BEHAVIORAL/PSYCH: Negative. ENDOCRINE: Negative. PHYSICAL EXAMINATION: General Appearance: Alert, cooperative, no distress, appears stated age. Neck HEENT: Supple, no lymphadenopathy, no thyroid enlargement, no carotid bruits. Lungs: Clear to auscultation without crackles or wheezes no rhonchi, no deformity. Chest Wall: Chest wall normal expansion with deep inspiration no tenderness and no deformity was found on exam, no costochondral pain or discomfort. Heart: Regular rate and rhythm, S1, S2 normal, no murmur, rub or gallop. Back: Symmetric, no curvature, ROM normal, no CVA tenderness. Abdomen: Soft, non-tender, bowel sounds active all four quadrants, no masses, no organomegaly. Extremities: Extremities normal, atraumatic, no cyanosis or edema. Pulses: 2+ and symmetric. Skin: Skin color, texture, tugor normal, no rashes or lesions. Neurologic: Alert oriented x3 cranial nerves II through XII intact, no motor deficit, no abnormal balance or gait. ASSESSMENT AND PLAN: _Syncopal episode: Still on testing remain on heart monitor continue gentle hydration still watching symptoms carefully no orthostatic change at this point. Still will be seen cardiology testing including Echocardiogram might be done and continue to watch for any significant orthostatic or hypotension the patient might benefit from continued glucose monitor along with continue heart monitor for total of 2 weeks. _Severe orthostatic hypotension: Started midodrine and seems to do very well with it. _Type 2 diabetes with severe hyperglycemia/hypoglycemia as well has been on insulin pump which is always malfunctioning was referred to endocrinology several times to have her off insulin pump on short and long-acting insulin still not well-managed. Patient has hyperglycemia without acidosis at this point _Hypothyroidism: Continue levothyroxine at 50 mcg daily. _Hypertension: Remain on losartan 50 and metoprolol 25 mg daily. _Chronic history of anxiety and depression remain on Effexor XR 75 mg a day along with Remeron 7.5 mg daily. _Hyponatremia most likely associated with hyperglycemia Again continue to watch her sodium level daily. _Anemia: Mostly chronic disease with hemoglobin still running at 9.3. _Acute kidney injury with chronic kidney disease stage III chronic kidney disease mostly diabetic nephropathy stable. _GI prophylaxis: Still on PPI. Discharge planning: Patient was evaluated by cardiology who is cleared for discharge with the exception of having to do continue heart monitor for total of 2 weeks. Also was clear by infectious disease the culture she had with gram- positive cocci presented to the hospital with complete negative workup final culture came back as a Streptococcus hominis which is likely skin miguelito the patient does not have any elevated tumor marker or any infection no need for any further antibiotic upon discharge. Patient be able to be discharged on 02/18/2024. Hospital course: 64-year-old with active medical history of type 2 diabetes with brittle type of insulin dependent has been on insulin pump seen endocrinology regular basis and had for the last 2 years major problem regulating her blood sugar she is either extremely high or extremely low and had multiple episode of hypoglycemia hospitalized many times hyperglycemic episodes. She was hospitalized in February 12, 2024 after fall with significant back pain and hip pain she developed lightheadedness and dizziness and had syncopal episode was not witnessed she ilana tained no injury at the emergency department CAT scan of the cervical spine shows no major compression she had mild degenerative disc disease with mild arthritis. Actively February 16 continue to have slight symptoms on and off her blood sugar dropped down drastically on February 16 become quite hypoglycemic she has not been using much longer acting insulin with Levemir but apparently having to use Humalog and movement of Lantus heart catheter blood sugar under control. Was evaluated by cardiology she is known to have ischemic cardiomyopathy with ejection fraction of 45 to 50% with apical hypokinesia and moderate disease in the LAD and circumflex. Cardiology could not see any major abnormality except orthostatic hypotension was treated with midodrine and patient done well with it. Also patient seen in infectious disease in consultation for positive blood culture from February 12, 2024 for Staphylococcus hominis which is most likely contamination repeat culture came back to be negative. Patient was very clear not to be on any further IV antibiotics. On 02/2024: She is very stable for discharge cardiology had her do 2 weeks heart monitor patient has a quick appointment to see her PCP along with cardiology in the next 2 weeks. Time spent on patient's discharge was over 35 minutes. Patient Condition at Discharge: Fair Plan - Discharge Summary New Discharge Prescriptions: New Amoxicillin/Potassium Clav [Amox-Clav 500-125 mg Tablet] 1 each PO AC-BID #20 tablet Folic Acid 1 mg PO DAILY tab Levothyroxine Sodium [Synthroid] 25 mcg PO DAILY@0630 #30 tab Midodrine [ProAmatine] 5 mg PO AC-TID #90 tab Acetaminophen Tab [Tylenol] 650 mg PO Q6HR PRN tab PRN Reason: Mild To Moderate Pain (1 - 6) Cyanocobalamin [Vitamin B-12] 1,000 mcg PO DAILY tab Continue Venlafaxine HCl [Effexor XR] 225 mg PO DAILY Pantoprazole Sodium [Protonix] 40 mg PO BID Aspirin EC [Ecotrin Low Dose] 81 mg PO DAILY Mirtazapine 7.5 mg PO HS cilostazoL [Pletal] 100 mg PO BID Losartan [Cozaar] 50 mg PO DAILY #60 tab Metoprolol Succinate (ER) [Toprol XL] 25 mg PO DAILY #60 tab INSULIN LISPRO (HumaLOG) [humaLOG] See Protocol SQ ACHS Isosorbide Mononitrate ER [Imdur] 30 mg PO DAILY Linagliptin [Tradjenta] 5 mg PO DAILY #30 tab Glucagon [Gvoke Pfs 1-Pack Syringe] 1 mg SQ DIRECTED PRN PRN Reason: Hypoglycemia Insulin Glargine [Lantus Vial] 10 unit SQ DAILY INSULIN LISPRO (HumaLOG) [humaLOG] 4 units SQ AC-TID Discharge Medication List Venlafaxine HCl [Effexor XR] 225 mg PO DAILY 10/21/16 [History] Pantoprazole Sodium [Protonix] 40 mg PO BID 04/06/20 [History] Aspirin EC [Ecotrin Low Dose] 81 mg PO DAILY 10/03/22 [History] Isosorbide Mononitrate ER [Imdur] 30 mg PO DAILY 04/10/23 [History] Mirtazapine 7.5 mg PO HS 04/10/23 [History] cilostazoL [Pletal] 100 mg PO BID 08/02/23 [History] Losartan [Cozaar] 50 mg PO DAILY #60 tab 08/05/23 [Rx] Metoprolol Succinate (ER) [Toprol XL] 25 mg PO DAILY #60 tab 08/05/23 [Rx] Linagliptin [Tradjenta] 5 mg PO DAILY #30 tab 09/05/23 [Rx] Glucagon [Gvoke Pfs 1-Pack Syringe] 1 mg SQ DIRECTED PRN 02/12/24 [History] INSULIN LISPRO (HumaLOG) [humaLOG] 4 units SQ AC-TID 02/12/24 [History] INSULIN LISPRO (HumaLOG) [humaLOG] See Protocol SQ ACHS 02/12/24 [History] Insulin Glargine [Lantus Vial] 10 unit SQ DAILY 02/12/24 [History] Acetaminophen Tab [Tylenol] 650 mg PO Q6HR PRN tab 02/18/24 [Rx] Amoxicillin/Potassium Clav [Amox-Clav 500-125 mg Tablet] 1 each PO AC-BID #20 tablet 02/18/24 [Rx] Cyanocobalamin [Vitamin B-12] 1,000 mcg PO DAILY tab 02/18/24 [Rx] Folic Acid 1 mg PO DAILY tab 02/18/24 [Rx] Levothyroxine Sodium [Synthroid] 25 mcg PO DAILY@0630 #30 tab 02/18/24 [Rx] Midodrine [ProAmatine] 5 mg PO AC-TID #90 tab 02/18/24 [Rx] Follow up Appointment(s)/Referral(s): Sahra Elder MD [Primary Care Provider] - 1-2 days (The office was not available to take call please call and make follow up appointment.) Dixon Wahl MD [REFERRING] - 03/01/24 11:15 am () Germán Sierra MD [STAFF PHYSICIAN] - 1 Week (The office was not available to take calls please call and make follow up appointment.) [facility] Vis[facility] Nurse, [NON-STAFF] - 1 Week Patient Instructions/Handouts: Levothyroxine (By mouth), Amoxicillin/Clavulanate Potassium (By mouth), Midodrine (By mouth), Hypoglycemia in a Person with Diabetes (ED), Fall Prevention for Older Adults (ED), Diabetic Hyperglycemia (ED), Type 2 Diabetes Management for Adults (ED) Discharge Disposition: HOME WITH HOME HEALTH SERVICES
== END 2024-02-18 16:21 | disposition home health service (06) | DRG 204 ==
LOC: EC 12:02 → 5NMEDONC 15:28
PROVIDERS: ADMIT Internal Medicine Geriatric Medicine; ATTEND Internal Medicine Geriatric Medicine
DX: I95.1 Orthostatic hypotension (principal); E89.0 Postprocedural hypothyroidism; D51.9 Vitamin B12 deficiency anemia, unspecified; E11.22 Type 2 diabetes mellitus with diabetic chronic kidney disease; E11.65 Type 2 diabetes mellitus with hyperglycemia; N18.30 Chronic kidney disease, stage 3 unspecified; D63.1 Anemia in chronic kidney disease; Z96.41 Presence of insulin pump (external) (internal); Z79.4 Long term (current) use of insulin; D52.9 Folate deficiency anemia, unspecified; E11.43 Type 2 diabetes mellitus with diabetic autonomic (poly)neuropathy; E11.649 Type 2 diabetes mellitus with hypoglycemia without coma; E78.5 Hyperlipidemia, unspecified; E87.1 Hypo-osmolality and hyponatremia; F05 Delirium due to known physiological condition; F32.A Depression, unspecified; N17.9 Acute kidney failure, unspecified; M06.9 Rheumatoid arthritis, unspecified; J44.9 Chronic obstructive pulmonary disease, unspecified; M48.56XA Collapsed vertebra, not elsewhere classified, lumbar region, initial encounter for fracture; R78.81 Bacteremia; F41.9 Anxiety disorder, unspecified; G25.81 Restless legs syndrome; I08.3 Combined rheumatic disorders of mitral, aortic and tricuspid valves; I12.9 Hypertensive chronic kidney disease with stage 1 through stage 4 chronic kidney disease, or unspecified chronic kidney disease; I25.10 Atherosclerotic heart disease of native coronary artery without angina pectoris; I25.2 Old myocardial infarction; I25.5 Ischemic cardiomyopathy; W18.30XA Fall on same level, unspecified, initial encounter; Z79.02 Long term (current) use of antithrombotics/antiplatelets; Z79.82 Long term (current) use of aspirin; Z79.84 Long term (current) use of oral hypoglycemic drugs; Z79.890 Hormone replacement therapy; Z79.899 Other long term (current) drug therapy; Z85.528 Personal history of other malignant neoplasm of kidney; Z86.14 Personal history of Methicillin resistant Staphylococcus aureus infection; Z86.73 Personal history of transient ischemic attack (TIA), and cerebral infarction without residual deficits; Z87.440 Personal history of urinary (tract) infections; Z87.891 Personal history of nicotine dependence; Z90.5 Acquired absence of kidney; Z91.199 Patient's noncompliance with other medical treatment and regimen due to unspecified reason; Z91.81 History of falling; R29.6 Repeated falls; K21.9 Gastro-esophageal reflux disease without esophagitis; K44.9 Diaphragmatic hernia without obstruction or gangrene; H40.9 Unspecified glaucoma; Z86.718 Personal history of other venous thrombosis and embolism
CPT/HCPCS: 36415; 70450; 71045; 72100; 72125; 72170; 74018; 80048; 80053; 81003; 82607; 82728; 82746; 83540; 83550; 83605; 83735; 83880; 84100; 84145; 84436; 84439; 84443; 84484; 85025; 85027; 85610; 85730; 86140; 87040; 87077; 87186; 93270; 96361; 96372; 96374; 96375; 99285

== ENCOUNTER 2024-02-27 13:23 | Emergency (ER) | payer OTHER ==
--- NOTE | 2024-02-27 14:06 | ED ---
Skin/Abscess/FB HPI - General Stated complaint: Sore on L arm-sent by PCP Time Seen by Provider: 02/27/24 13:40 Source: patient, RN notes reviewed - History of Present Illness Initial comments: 64-year-old female presents to the emergency department chief complaint of a sore on her left arm. Patient states that she noticed there was a bump of her left arm over the past week that has enlarged in size. denies fevers, chills, n ausea and vomiting. she denies erythema streaking or purulent drainage from the site. Patient was advised by her primary care provider to report emergency department for further evaluation due to history of bacteremia from recent ER visit. - Related Data Home Medications Medication Instructions Recorded Confirmed Venlafaxine HCl [Effexor XR] 225 mg PO DAILY 10/21/16 02/12/24 Pantoprazole Sodium [Protonix] 40 mg PO BID 04/06/20 02/12/24 Aspirin EC [Ecotrin Low Dose] 81 mg PO DAILY 10/03/22 02/12/24 Isosorbide Mononitrate ER [Imdur] 30 mg PO DAILY 04/10/23 02/12/24 Mirtazapine 7.5 mg PO HS 04/10/23 02/12/24 cilostazoL [Pletal] 100 mg PO BID 08/02/23 02/12/24 Glucagon [Gvoke Pfs 1-Pack Syringe] 1 mg SQ DIRECTED PRN 02/12/24 02/12/24 INSULIN LISPRO (HumaLOG) [humaLOG] 4 units SQ AC-TID 02/12/24 02/12/24 INSULIN LISPRO (HumaLOG) [humaLOG] See Protocol SQ ACHS 02/12/24 02/12/24 Insulin Glargine [Lantus Vial] 10 unit SQ DAILY 02/12/24 02/12/24 Previous Rx's Medication Instructions Recorded Losartan [Cozaar] 50 mg PO DAILY #60 tab 08/05/23 Metoprolol Succinate (ER) [Toprol 25 mg PO DAILY #60 tab 08/05/23 XL] Linagliptin [Tradjenta] 5 mg PO DAILY #30 tab 09/05/23 Acetaminophen Tab [Tylenol] 650 mg PO Q6HR PRN tab 02/18/24 Amoxicillin/Potassium Clav 1 each PO AC-BID #20 tablet 02/18/24 [Amox-Clav 500-125 mg Tablet] Cyanocobalamin [Vitamin B-12] 1,000 mcg PO DAILY tab 02/18/24 Folic Acid 1 mg PO DAILY tab 02/18/24 Levothyroxine Sodium [Synthroid] 25 mcg PO DAILY@0630 #30 tab 02/18/24 Midodrine [ProAmatine] 5 mg PO AC-TID #90 tab 02/18/24 Clindamycin [Cleocin] 450 mg PO Q8H #22 cap 02/27/24 Allergies Allergy/AdvReac Type Severity Reaction Status Date / Time grass pollen Allergy Unknown Verified 02/12/24 16:06 latex Allergy Rash/Hives Verified 02/12/24 16:06 Sulfa (Sulfonamide Allergy Rash/Hives/ Verified 02/12/24 16:06 Antibiotics) Swelling venom-honey bee Allergy Anaphylaxis Verified 02/12/24 16:06 prochlorperazine edisylate AdvReac Vomiting Verified 02/12/24 16:06 [From Compazine] Review of Systems ROS Statement: Those systems with pertinent positive or pertinent negative responses have been documented in the HPI. ROS Other: All systems not noted in ROS Statement are negative. Past Medical History Past Medical History: Coronary Artery Disease (CAD), Cancer, COPD, CVA/TIA, Diabetes Mellitus, Deep Vein Thrombosis (DVT), Eye Disorder, GERD/Reflux, Hyperlipidemia, Hypertension, Myocardial Infarction (GA), Renal Disease, Rheumatoid Arthritis (RA), Syncope, Thyroid Disorder Additional Past Medical History / Comment(s): 09/16/16 with SBO with surgery/possible septic emboli with cavitary lesions bilateral lungs. Hx: left renal cell carcinoma with partial nephrectomy. 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 DVT left leg 7-8 yrs ago. hypothyroidism, chronic back pain, degenerative disks, hx UTI with sepsis secondary to ESBL producing E. coli 2015 requiring PICC line insertion for IV antibiotics. restless leg syndrome, peripheral neuropathy. Hx bilateral glaucoma, hx syncope r/t low blood sugars. No CPAP use. Last Myocardial Infarction Date:: 2019 History of Any Multi-Drug Resistant Organisms: ESBL, MRSA, VRE Date of last positivie culture/infection: 05/07/16 ESBL, 05/15/16 VRE, MRSA 09/2017 - upper lip MDRO Source:: URINE E.COLI, EC GALLINARUM Past Surgical History: Appendectomy, Bowel Resection, Section, Heart Catheterization, Heart Catheterization With Stent, Hernia Repair Additional Past Surgical History / Comment(s): 09/30 exploratory laparotomy with lysis of adhesions, bowel resection d/t obstruction. repair incarcerated incisional hernia with abdominal washout. thyroidectomy(non functioning). heart cath 06/28 - 100% occluded, unable to stent. partial left nephrectomy for left kidney renal cell carcinoma. colonoscopy, bilateral cataract removal with lens implants, 2 Sections. cardiac stent 03/2021 Past Anesthesia/Blood Transfusion Reactions: No Reported Reaction Date of Last Stent Placement:: 04/06/2021 Past Psychological History: Depression Smoking Status: Former smoker Past Alcohol Use History: None Reported Past Drug Use History: Marijuana - Past Family History Sister(s) Family Medical History: Cancer, Deep Vein Thrombosis (DVT) Additional Family Medical History / Comment(s): Patient has one sister that from liver cancer. Brother(s) Family Medical History: Cancer, Deep Vein Thrombosis (DVT) Additional Family Medical History / Comment(s): Patient has 1 brother with past ETOH, past drug abuse, DVTs. She has a second brother that has from throat cancer. Daughter(s) Family Medical History: Diabetes Mellitus, Myocardial Infarction (GA) Additional Family Medical History / Comment(s): Daughter at 23 yrs old from massive GA. Father Family Medical History: Myocardial Infarction (GA) Additional Family Medical History / Comment(s): from GA at age 44 Mother Family Medical History: Cancer Additional Family Medical History / Comment(s): B/L breast cancer General Exam - General Exam Comments Initial Comments: Visual Physical Exam Vital signs reviewed General: Well-appearing, nontoxic, no acute distress. Head: Normocephalic, atraumatic Eyes: PERRLA, EOMI ENT: Airway patent Chest: Nonlabored breathing Skin: No visual rash, normal skin tone Neuro: Alert and oriented 3 Musculoskeletal: No gross abnormalities General appearance: alert, in no apparent distress ENT exam: Present: normal exam, mucous membranes moist Neck exam: Present: normal inspection. Absent: tenderness, meningismus, lymphadenopathy Respiratory exam: Present: normal lung sounds bilaterally. Absent: respiratory distress, wheezes, rales, rhonchi, stridor Cardiovascular Exam: Present: regular rate, normal rhythm, normal heart sounds. Absent: systolic murmur, diastolic murmur, rubs, gallop, clicks GI/Abdominal exam: Present: soft, normal bowel sounds. Absent: distended, tenderness, guarding, rebound, rigid Left Forearm Wrist exam: Present: normal inspection, full ROM, tenderness (1 cm abscess with erythema, no active drainage or streaking redness) Hand Wrist exam: Present: normal inspection, full ROM. Absent: tenderness Neuro motor exam: Present: wrist extension intact, thumb opposition intact Vascular: Present: normal capillary refill, radial pulse (2+). Absent: vascular compromise Psychiatric exam: Present: normal affect, normal mood Skin exam: Present: warm, dry, intact, normal color. Absent: rash Course Vital Signs 02/27/24 02/27/24 14:26 16:59 Temperature 98.1 F 97.9 F Pulse Rate 90 83 Respiratory 16 16 Rate Blood Pressure 115/75 120/84 O2 Sat by Pulse 97 100 Oximetry Medical Decision Making - Medical Decision Making Was pt. sent in by a medical professional or institution (, PA, [employer], urgent care, hospital, or [place] health [place] facility...) When possible be specific @ -Was advised by her primary care provider to report to the emergency department for further evaluation of left arm abscess Did you speak to anyone other than the patient for history (EMS, parent, family, police, friend...)? What history was obtained from this source @ -No Did you review nursing and triage notes (agree or disagree)? Why? @ -I reviewed and agree with nursing and triage notes Were old charts reviewed (outside hosp., previous admission, EMS record, old EKG, old radiological studies, urgent care reports/EKG's, [place] health care facility records)? Report findings @ -I reviewed the progress note that was completed by Dr. Santos, infectious disease, where it was reported that blood culture finalized with Streptococcus hominis likely skin miguelito as patient did have normal inflammatory markers and more likely representing skin contamination with no need for antibiotics on discharge. Differential Diagnosis (chest pain, altered mental status, abdominal pain women, abdominal pain men, vaginal bleeding, weakness, fever, dyspnea, syncope, headache, dizziness, GI bleed, back pain, seizure, CVA, palpatations, mental health, musculoskeletal)? @ -Cellulitis, abscess, superficial soft tissue infection, this list not all inclusive EKG interpreted by me (3pts min.). @ -None X-rays interpreted by me (1pt min.). @ -None done CT interpreted by me (1pt min.). @ -None done U/S interpreted by me (1pt. min.). @ -None done What testing was considered but not performed or refused? (CT, X-rays, U/S, labs)? Why? @ -Labs such as CBC and CMP were considered but deferred. Reviewed patient's previous emergency department visit note where Dr. Carr, infectious disease physician, commented on patient's positive blood cultures and was believed that this has due to a blood specimen that was contaminated rather than a actual growth of bacteria within the blood. What meds were considered but not given or refused? Why? @ -None Did you discuss the management of the patient with other professionals (professionals i.e. , PA, [employer], lab, RT, psych nurse, professor of social work, technical account executive, teacher, mobile patrol officer, disease case manager rn)? Give summary @ -No Was smoking cessation discussed for >3mins.? @ -No Was critical care preformed (if so, how long)? @ -No Were there social determinants of health that impacted care today? How? (Homelessness, low income, unemployed, alcoholism, drug addiction, mckinney sportation, low edu. Level, literacy, decrease access to med. care, halfway, rehab)? @ -No Was there de-escalation of care discussed even if they declined (Discuss DNR or withdrawal of care, Hospice)? DNR status @ -No What co-morbidities impacted this encounter? (DM, HTN, Smoking, COPD, CAD, Cancer, CVA, ARF, Chemo, Hep., AIDS, mental health diagnosis, sleep apnea, morbid obesity)? @ -None Was patient admitted / discharged? Hospital course, mention meds given and route, prescriptions, significant lab abnormalities, going to OR and other pertinent info. @ -Discharge. 64-year-old female with abscess. On examination patient noted to have roughly 1 cm abscess to the left forearm that is mildly erythematous. There are no signs of active drainage and no red streaking. Vitals are stable. Was provided with dose of antibiotic emergency department and sent full course of clindamycin to pharmacy. Recommend follow-up with primary care provider next week for further evaluation. All questions answered at bedside and strict return parameters discussed with the patient she is verbalized understanding. Discussed with Dr. Dawkins Undiagnosed new problem with uncertain prognosis? @ -No Drug Therapy requiring intensive monitoring for toxicity (Heparin, Nitro, Insulin, Cardizem)? @ -No Were any procedures done? @ -No Diagnosis/symptom? @ -cellulitis Acute, or Chronic, or Acute on Chronic? @ -acute Uncomplicated (without systemic symptoms) or Complicated (systemic symptoms)? @ -uncomplicated Side effects of treatment? @ -No Exacerbation, Progression, or Severe Exacerbation? @ -No Poses a threat to life or bodily function? How? (Chest pain, [place], [place], pneumonia, PE, COPD, DKA, ARF, appy, cholecystitis, CVA, Diverticulitis, Homicidal, Suicidal, threat to staff... and all critical care pts) @ -No Disposition Clinical Impression: Cellulitis, Abscess Disposition: HOME SELF-CARE Condition: Good Instructions (If sedation given, give patient instructions): Cellulitis (ED) Additional Instructions: Return emergency department for any new or worsening symptoms. Complete full course antibiotic as prescribed. Recommend follow-up with primary care provider within the next week for further evaluation. Prescriptions: Clindamycin [Cleocin] 450 mg PO Q8H #22 cap Is patient prescribed a controlled substance at d/c from ED?: No Referrals: Sahra Elder MD [Primary Care Provider] - 1-2 days Time of Disposition: 16:33
[2024-02-27 14:30] VITALS: RESP 16
[2024-02-27] MEDS: CLINDAMYCIN 150 MG CAP PO STA (16:42)
[2024-02-27 17:16] VITALS: BP 120/84; PULSE 83; TEMP 97.9
== END 2024-02-27 17:00 | disposition home or self-care (01) ==
LOC: EC 13:23
CPT/HCPCS: 99283

== ENCOUNTER 2024-03-01 00:58 | Inpatient (IN) | payer OTHER ==
[2024-03-01 01:06] LABS: Glucose,Whole Blood >600 mg/dL (70-110)
[2024-03-01] MEDS: SODIUM CHLORIDE 0.9% 1,000 ML IV ONE ×2 (01:11→02:35)
[2024-03-01 01:23] LABS: Basophils % (A) 1 %; Eosinophils # (A) 0.1 k/uL (0-0.7); Eosinophils % (A) 4 %; HCT 36.6 % (34.0-46.0); HGB 11.2 gm/dL (11.4-16.0); Hypochromasia Marked; Lymphocytes # (A) 1.3 k/uL (1.0-4.8); Lymphocytes % (A) 33 %; MCH 29.7 pg (25.0-35.0); MCHC 30.7 g/dL (31.0-37.0); MCV 96.9 fL (80.0-100.0); Mean Platelet Volume 7.6; Monocytes # (A) 0.1 k/uL (0-1.0); Monocytes % (A) 3 %; Neutrophils # (A) 2.4 k/uL (1.3-7.7); Neutrophils % (A) 58 %; Platelet Count 363 k/uL (150-450); RBC 3.78 m/uL (3.80-5.40); RDW 14.4 % (11.5-15.5); WBC 4.1 k/uL (3.8-10.6)
[2024-03-01 01:24] LABS: Appearance,Urine Clear (Clear); Bilirubin,Urine Negative (Negative); Blood,Urine Negative (Negative); Color,Urine Colorless; Glucose,Urine (UA) 4+ (Negative); Ketones,Urine Negative (Negative); Leukocyte Esterase,Urine Negative (Negative); Nitrite,Urine Negative (Negative); PH, Urine 5.5 (5.0-8.0); Protein,Urine Negative (Negative); Specific Gravity,Urine 1.024 (1.001-1.035); Urobilinogen,Urine <2.0 mg/dL (<2.0)
[2024-03-01 01:31] LABS: INR 0.9 (<1.2); Partial Thromboplastin Time 22.7 sec (22.0-30.0); Prothrombin Time 9.6 sec (10.0-12.5)
[2024-03-01 01:35] LABS: Lactic Acid, Venous 1.7 mmol/L (0.7-2.0)
[2024-03-01 01:35] LABS: Amphetamine Screen,Urine Not Detected (NotDetected); Barbiturate Screen,Urine Not Detected (NotDetected); Benzodiazepines Screen,Urine Not Detected (NotDetected); Cocaine Screen,Urine Not Detected (NotDetected); Methadone Screen, Urine Not Detected (NotDetected); Opiate Screen,Urine Not Detected (NotDetected); Oxycodone Screen, Urine Not Detected (NotDetected); Phencyclidine Screen,Urine Not Detected (NotDetected); Tricyclic Antidepressant,Urine Not Detected (NotDetected); Urn Cannabinoid Scrn Not Detected (NotDetected)
[2024-03-01 01:38] LABS: ALT 10 U/L (4-34); AST 15 U/L (14-36); African American GFR (CKD) 63 (>60 ml/min/1.73 sqM); Albumin 4.6 g/dL (3.5-5.0); Alcohol <10 mg/dL; Alkaline Phosphatase 167 U/L (38-126); Anion Gap 15 mmol/L; Blood Urea Nitrogen 25 mg/dL (7-17); Calcium 9.3 mg/dL (8.4-10.2); Carbon Dioxide 23 mmol/L (22-30); Chloride 75 mmol/L (98-107); Non-African American GFR(CKD) 55 (>60 ml/min/1.73 sqM); Potassium 5.2 mmol/L (3.5-5.1); Total Bilirubin 0.6 mg/dL (0.2-1.3)
[2024-03-01 01:52] LABS: Glucose 1192 mg/dL (74-99)
[2024-03-01 01:53] LABS: Sodium 113 mmol/L (137-145)
--- NOTE | 2024-03-01 02:01 | CT ---
EXAM: CT Head Without Intravenous Contrast CLINICAL HISTORY: ITS.REASON CT Reason: Altered mental status TECHNIQUE: Axial computed tomography images of the head/brain without intravenous contrast. CTDI is 49.1 mGy and DLP is 1121 mGy-cm. This CT exam was performed using one or more of the following dose reduction techniques: automated exposure control, adjustment of the mA and/or kV according to patient size, and/or use of iterative reconstruction technique. COMPARISON: No relevant prior studies available. FINDINGS: No acute intracranial hemorrhage. No midline shift or mass effect. Encephalomalacia in the RIGHT occipital lobe, consistent with old infarct. . Age-related cerebral volume loss. Periventricular and subcortical white matter hypoattenuation, consistent with chronic microangiopathy. The visualized orbits appear grossly unremarkable. The calvarium is intact. The visualized paranasal sinuses and mastoid air cells are grossly clear. IMPRESSION: No acute intracranial hemorrhage, midline shift, or mass effect. Encephalomalacia in the RIGHT occipital lobe, consistent with old infarct. .
[2024-03-01] MEDS ORDERED: DEXTROSE 50% SYRINGE 50 ML IVP PRN ×4 (02:14→11:45)
--- NOTE | 2024-03-01 02:26 | XR ---
EXAM: XR Chest, 1 View CLINICAL HISTORY: ITS.REASON XR Reason: altered mental status TECHNIQUE: Frontal view of the chest. COMPARISON: No relevant prior studies available. FINDINGS: Lungs: Unremarkable. No consolidation. Pleural space: Unremarkable. No pneumothorax. Heart: Cardiomegaly. Mediastinum: Unremarkable. Normal mediastinal contour. Bones/joints: Unremarkable. No acute fracture. IMPRESSION: No consolidation.
[2024-03-01] MEDS: INSULIN REGULAR 100 UNIT in SODIUM CHLORIDE 0.9% 100 ML IV SCH (02:31)
[2024-03-01] MEDS: SODIUM CHLORIDE 0.9% 1,000 ML IV SCH ×3 (02:35→23:05)
[2024-03-01] MEDS ORDERED: Potassium Replacement Protocol 1 EACH MISC MISCELLANE PRN (02:37)
[2024-03-01] MEDS ORDERED: Magnesium Replacement Protocol 1 EACH MISC MISCELLANE PRN (02:37)
[2024-03-01] MEDS ORDERED: NALOXONE 0.4 MG/ML 1 ML VIAL IV PRN (02:37)
--- NOTE | 2024-03-01 02:37 | ED ---
Altered Mental Status HPI - General Chief Complaint: Altered Mental Status Stated Complaint: Seizures Time Seen by Provider: 03/01/24 01:00 Source: patient Mode of arrival: EMS - History of Present Illness Initial Comments: 64-year-old female with past medical history of COPD, CVA, diabetes who presents to the emergency department with altered mental status. EMS report that the patient has been altered for an unknown amount of time. There was a male at the patient's house that had called EMS. He had found the patient altered in a chair. Patient was able to answer some questions appropriately. When she was loaded in the back of the ambulance she ended up having a 4-minute seizure which was tonic-clonic. Patient was administered 10 mg of IM Versed. Seizure has stopped upon hospital arrival. No reported history of seizures. Glucose was greater than 600. Patient is a known diabetic with noncompliance. No reported traumas the patient was found upright in a chair. Remainder of HPI is limited because the patient's current medical condition - Related Data Home Medications Medication Instructions Recorded Confirmed Venlafaxine HCl [Effexor XR] 225 mg PO DAILY 10/21/16 03/01/24 Pantoprazole Sodium [Protonix] 40 mg PO BID 04/06/20 03/01/24 Aspirin EC [Ecotrin Low Dose] 81 mg PO DAILY 10/03/22 03/01/24 Isosorbide Mononitrate ER [Imdur] 30 mg PO DAILY 04/10/23 03/01/24 Mirtazapine 7.5 mg PO HS 04/10/23 03/01/24 cilostazoL [Pletal] 100 mg PO BID 08/02/23 03/01/24 Glucagon [Gvoke Pfs 1-Pack Syringe] 1 mg SQ DIRECTED PRN 02/12/24 03/01/24 INSULIN LISPRO (HumaLOG) [humaLOG] 4 units SQ AC-TID 02/12/24 03/01/24 INSULIN LISPRO (HumaLOG) [humaLOG] See Protocol SQ ACHS 02/12/24 03/01/24 Insulin Glargine [Lantus Vial] 10 unit SQ DAILY 02/12/24 03/01/24 Doxycycline Monohydrate [Monodox] 100 mg PO DIRECTED 03/01/24 03/01/24 Previous Rx's Medication Instructions Recorded Losartan [Cozaar] 50 mg PO DAILY #60 tab 08/05/23 Metoprolol Succinate (ER) [Toprol 25 mg PO DAILY #60 tab 08/05/23 XL] Linagliptin [Tradjenta] 5 mg PO DAILY #30 tab 09/05/23 Acetaminophen Tab [Tylenol] 650 mg PO Q6HR PRN tab 02/18/24 Cyanocobalamin [Vitamin B-12] 1,000 mcg PO DAILY tab 02/18/24 Folic Acid 1 mg PO DAILY tab 02/18/24 Levothyroxine Sodium [Synthroid] 25 mcg PO DAILY@0630 #30 tab 02/18/24 Midodrine [ProAmatine] 5 mg PO AC-TID #90 tab 02/18/24 Allergies Allergy/AdvReac Type Severity Reaction Status Date / Time grass pollen Allergy Unknown Verified 02/12/24 16:06 latex Allergy Rash/Hives Verified 02/12/24 16:06 Sulfa (Sulfonamide Allergy Rash/Hives/ Verified 02/12/24 16:06 Antibiotics) Swelling venom-honey bee Allergy Anaphylaxis Verified 02/12/24 16:06 prochlorperazine edisylate AdvReac Vomiting Verified 02/12/24 16:06 [From Compazine] Review of Systems ROS Statement: Those systems with pertinent positive or pertinent negative responses have been documented in the HPI. ROS Other: All systems not noted in ROS Statement are negative. Past Medical History Past Medical History: Coronary Artery Disease (CAD), Cancer, COPD, CVA/TIA, Diabetes Mellitus, Deep Vein Thrombosis (DVT), Eye Disorder, GERD/Reflux, Hyperlipidemia, Hypertension, Myocardial Infarction (DE), Renal Disease, Rheumatoid Arthritis (RA), Syncope, Thyroid Disorder Additional Past Medical History / Comment(s): 09/16/16 with SBO with surgery/possible septic emboli with cavitary lesions bilateral lungs. Hx: left renal cell carcinoma with partial nephrectomy. 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 DVT left leg 7-8 yrs ago. hypothyroidism, chronic back pain, degenerative disks, hx UTI with sepsis secondary to ESBL producing E. coli 2015 requiring PICC line insertion for IV antibiotics. restless leg syndrome, peripheral neuropathy. Hx bilateral glaucoma, hx syncope r/t low blood sugars. No CPAP use. Last Myocardial Infarction Date:: 2019 History of Any Multi-Drug Resistant Organisms: ESBL, MRSA, VRE Date of last positivie culture/infection: 05/07/16 ESBL, 05/15/16 VRE, MRSA 09/2017 - upper lip MDRO Source:: URINE E.COLI, EC GALLINARUM Past Surgical History: Appendectomy, Bowel Resection, Section, Heart Catheterization, Heart Catheterization With Stent, Hernia Repair Additional Past Surgical History / Comment(s): 09/30 exploratory laparotomy with lysis of adhesions, bowel resection d/t obstruction. repair incarcerated incisional hernia with abdominal washout. thyroidectomy(non functioning). heart cath 06/28 - 100% occluded, unable to stent. partial left nephrectomy for left kidney renal cell carcinoma. colonoscopy, bilateral cataract removal with lens implants, 2 Sections. cardiac stent 03/2021 Past Anesthesia/Blood Transfusion Reactions: No Reported Reaction Date of Last Stent Placement:: 04/06/2021 Past Psychological History: Depression Smoking Status: Former smoker Past Alcohol Use History: None Reported Past Drug Use History: Marijuana - Past Family History Sister(s) Family Medical History: Cancer, Deep Vein Thrombosis (DVT) Additional Family Medical History / Comment(s): Patient has one sister that from liver cancer. Brother(s) Family Medical History: Cancer, Deep Vein Thrombosis (DVT) Additional Family Medical History / Comment(s): Patient has 1 brother with past ETOH, past drug abuse, DVTs. She has a second brother that has from throat cancer. Daughter(s) Family Medical History: Diabetes Mellitus, Myocardial Infarction (DE) Additional Family Medical History / Comment(s): Daughter at 23 yrs old from massive DE. Father Family Medical History: Myocardial Infarction (DE) Additional Family Medical History / Comment(s): from DE at age 44 Mother Family Medical History: Cancer Additional Family Medical History / Comment(s): B/L breast cancer General Exam Limitations: altered mental status General appearance: lethargic Head exam: Present: atraumatic, normocephalic, normal inspection Eye exam: Present: normal appearance, PERRL, EOMI. Absent: scleral icterus, conjunctival injection, periorbital swelling ENT exam: Present: mucous membranes dry Neck exam: Present: normal inspection. Absent: tenderness, meningismus, lymphadenopathy Respiratory exam: Present: normal lung sounds bilaterally. Absent: respiratory distress, wheezes, rales, rhonchi, stridor Cardiovascular Exam: Present: regular rate Extremities exam: Present: normal inspection, full ROM, normal capillary refill. Absent: tenderness, pedal edema, joint swelling, calf tenderness Neurological exam: Present: altered Skin exam: Present: warm, dry, intact, normal color. Absent: rash Course Vital Signs 03/01/24 03/01/24 03/01/24 00:59 02:01 03:01 Temperature 98 F Pulse Rate 99 87 81 Respiratory 18 19 19 Rate Blood Pressure 153/96 151/83 173/93 O2 Sat by Pulse 97 100 100 Oximetry 03/01/24 04:01 Temperature Pulse Rate 80 Respiratory 20 Rate Blood Pressure 164/81 O2 Sat by Pulse 100 Oximetry - Reevaluation(s) Reevaluation #1: Pineda from the ICU presents emergency department evaluate the patient 03/01/24 03:45 Medical Decision Making - Medical Decision Making Was pt. sent in by a medical professional or institution (, PA, PROGRAM STRATEGIST, urgent care, hospital, or fci...) When possible be specific @ -No Did you speak to anyone other than the patient for history (EMS, parent, family, police, friend...)? What history was obtained from this source @ -I spoke with EMS for history Did you review nursing and triage notes (agree or disagree)? Why? @ -I reviewed and agree with nursing and triage notes Were old charts reviewed (outside hosp., previous admission, EMS record, old EKG, old radiological studies, urgent care reports/EKG's, fci records)? Report findings @ -I reviewed previous hospitalizations where patient was hospitalized for HHS Differential Diagnosis (chest pain, altered mental status, abdominal pain women, abdominal pain men, vaginal bleeding, weakness, fever, dyspnea, syncope, headache, dizziness, GI bleed, back pain, seizure, CVA, palpatations, mental health, musculoskeletal)? @ -Differential Altered Mental Status: Hypoglycemia, DKA, hypercapnia, ETOH, overdose, CO poisoning, trauma, myxedema coma, HTN encephalopathy, infection, encephalitis, psychosis, intercranial hemorrhage, hepatic encephalopathy, meningitis, CVA, this is not meant to be an all-inclusive list EKG interpreted by me (3pts min.). @ -Patient demonstrates sinus rhythm with rate of 98. DC interval 166. QRS 94. QTc of 416. No acute ST segment elevation. ST depression 1, 2, aVL, V5V6 X-rays interpreted by me (1pt min.). @ -Yes and demonstrates no acute process CT interpreted by me (1pt min.). @ -Yes and demonstrates no acute process U/S interpreted by me (1pt. min.). @ -None done What testing was considered but not performed or refused? (CT, X-rays, U/S, labs)? Why? @ -None What meds were considered but not given or refused? Why? @ -None Did you discuss the management of the patient with other professionals (professionals i.e. , PA, PROGRAM STRATEGIST, lab, RT, psych nurse, social human services assistants, traffic engineering technician, teacher, nursing officer, catalytic case operator)? Give summary @ -Spoke with [facility] for admission. Also spoke with Pineda from pulmonology as the patient needs to go to the ICU Was smoking cessation discussed for >3mins.? @ -No Was critical care preformed (if so, how long)? @ -Yes, 40 minutes for management of insulin drip Were there social determinants of health that impacted care today? How? (Homel essness, low income, unemployed, alcoholism, drug addiction, transportation, low edu. Level, literacy, decrease access to med. care, group home, rehab)? @ -No Was there de-escalation of care discussed even if they declined (Discuss DNR or withdrawal of care, Hospice)? DNR status @ -No What co-morbidities impacted this encounter? (DM, HTN, Smoking, COPD, CAD, Cancer, CVA, ARF, Chemo, Hep., AIDS, mental health diagnosis, sleep apnea, morbid obesity)? @ -Diabetes mellitus Was patient admitted / discharged? Hospital course, mention meds given and route, prescriptions, significant lab abnormalities, going to OR and other pertinent info. @ -Upon arrival patient seen and evaluated in trauma 1. Thorough history and physical exam was performed. Patient appears postictal upon evaluation. She is placed on continuous pulse ox and cardiac monitoring. Laboratory studies are conducted. Glucose markedly elevated. Patient was given a 2 L bolus normal saline and started on insulin drip. She requires admission. Spoke with Pineda from pulmonology who accepts the patient to the ICU. Spoke with Karol who accepted the patient for [facility] Undiagnosed new problem with uncertain prognosis? @ -No Drug Therapy requiring intensive monitoring for toxicity (Heparin, Nitro, Insulin, Cardizem)? @ -Insulin Were any procedures done? @ -No Diagnosis/symptom? @ -Acute encephalopathy, new onset seizure-like activity, HHS Acute, or Chronic, or Acute on Chronic? @ -Acute Uncomplicated (without systemic symptoms) or Complicated (systemic symptoms)? @ -Complicated Side effects of treatment? @ -No Exacerbation, Progression, or Severe Exacerbation? @ -No Poses a threat to life or bodily function? How? (Chest pain, USA, DE, pneumonia, PE, COPD, DKA, ARF, appy, cholecystitis, CVA, Diverticulitis, Homicidal, Suicidal, threat to staff... and all critical care pts) @ -Yes as patient does have significantly elevated glucose - Lab Data Result diagrams: 03/05/24 03:22 03/05/24 03:22 Lab Results 03/01/24 03/01/24 03/01/24 Range/Units 01:03 01:05 01:05 WBC 4.1 (3.8-10.6) k/uL RBC 3.78 L (3.80-5.40) m/uL Hgb 11.2 L (11.4-16.0) gm/dL Hct 36.6 (34.0-46.0) % MCV 96.9 (80.0-100.0) fL MCH 29.7 (25.0-35.0) pg MCHC 30.7 L (31.0-37.0) g/dL RDW 14.4 (11.5-15.5) % Plt Count 363 (150-450) k/uL MPV 7.6 Neutrophils % 58 % Lymphocytes % 33 % Monocytes % 3 % Eosinophils % 4 % Basophils % 1 % Neutrophils # 2.4 (1.3-7.7) k/uL Lymphocytes # 1.3 (1.0-4.8) k/uL Monocytes # 0.1 (0-1.0) k/uL Eosinophils # 0.1 (0-0.7) k/uL Basophils # 0.0 (0-0.2) k/uL Hypochromasia Marked PT 9.6 L (10.0-12.5) sec INR 0.9 (<1.2) APTT 22.7 (22.0-30.0) sec Sodium (137-145) mmol/L Potassium (3.5-5.1) mmol/L Chloride (98-107) mmol/L Carbon Dioxide (22-30) mmol/L Anion Gap mmol/L BUN (7-17) mg/dL Creatinine (0.52-1.04) mg/dL Est GFR (CKD-EPI)AfAm (>60 ml/min/1.73 sqM) Est GFR (CKD-EPI)NonAf (>60 ml/min/1.73 sqM) Glucose (74-99) mg/dL POC Glucose (mg/dL) >600 H* (70-110) mg/dL POC Glu Anhydrous Ammonia Production Supervisor ID Brigette Rolon Plasma Lactic Acid Ab (0.7-2.0) mmol/L Calcium (8.4-10.2) mg/dL Total Bilirubin (0.2-1.3) mg/dL AST (14-36) U/L ALT (4-34) U/L Alkaline Phosphatase (38-126) U/L Ammonia (<30) umol/L Troponin I (0.000-0.034) ng/mL Total Protein (6.3-8.2) g/dL Albumin (3.5-5.0) g/dL TSH (0.465-4.680) mIU/L Free T4 (0.78-2.19) ng/dL Urine Color Urine Appearance (Clear) Urine pH (5.0-8.0) Ur Specific [place] (1.001-1.035) Urine Protein (Negative) Urine Glucose (UA) (Negative) Urine Ketones (Negative) Urine Blood (Negative) Urine Nitrite (Negative) Urine Bilirubin (Negative) Urine Urobilinogen (<2.0) mg/dL Ur Leukocyte Esterase (Negative) Urine Opiates Screen (NotDetected) Ur Oxycodone Screen (NotDetected) Urine Methadone Screen (NotDetected) Ur Barbiturates Screen (NotDetected) U Tricyclic Antidepress (NotDetected) Ur Phencyclidine Scrn (NotDetected) Ur Amphetamines Screen (NotDetected) U Methamphetamines Scrn (NotDetected) U Benzodiazepines Scrn (NotDetected) Urine Cocaine Screen (NotDetected) U Marijuana (THC) Screen (NotDetected) Serum Alcohol mg/dL Acetone, Qual (Negative) 03/01/24 03/01/24 03/01/24 Range/Units 01:05 01:05 01:05 WBC (3.8-10.6) k/uL RBC (3.80-5.40) m/uL Hgb (11.4-16.0) gm/dL Hct (34.0-46.0) % MCV (80.0-100.0) fL MCH (25.0-35.0) pg MCHC (31.0-37.0) g/dL RDW (11.5-15.5) % Plt Count (150-450) k/uL MPV Neutrophils % % Lymphocytes % % Monocytes % % Eosinophils % % Basophils % % Neutrophils # (1.3-7.7) k/uL Lymphocytes # (1.0-4.8) k/uL Monocytes # (0-1.0) k/uL Eosinophils # (0-0.7) k/uL Basophils # (0-0.2) k/uL Hypochromasia PT (10.0-12.5) sec INR (<1.2) APTT (22.0-30.0) sec Sodium 113 L* (137-145) mmol/L Potassium 5.2 H (3.5-5.1) mmol/L Chloride 75 L (98-107) mmol/L Carbon Dioxide 23 (22-30) mmol/L Anion Gap 15 mmol/L BUN 25 H (7-17) mg/dL Creatinine 1.08 H (0.52-1.04) mg/dL Est GFR (CKD-EPI)AfAm 63 (>60 ml/min/1.73 sqM) Est GFR (CKD-EPI)NonAf 55 (>60 ml/min/1.73 sqM) Glucose 1192 H* (74-99) mg/dL POC Glucose (mg/dL) (70-110) mg/dL POC Glu Anhydrous Ammonia Production Supervisor ID Plasma Lactic Acid Ab 1.7 (0.7-2.0) mmol/L Calcium 9.3 (8.4-10.2) mg/dL Total Bilirubin 0.6 (0.2-1.3) mg/dL AST 15 (14-36) U/L ALT 10 (4-34) U/L Alkaline Phosphatase 167 H (38-126) U/L Ammonia <9 (<30) umol/L Troponin I 0.013 (0.000-0.034) ng/mL Total Protein 7.0 (6.3-8.2) g/dL Albumin 4.6 (3.5-5.0) g/dL TSH >100.000 H (0.465-4.680) mIU/L Free T4 0.44 L (0.78-2.19) ng/dL Urine Color Urine Appearance (Clear) Urine pH (5.0-8.0) Ur Specific [place] (1.001-1.035) Urine Protein (Negative) Urine Glucose (UA) (Negative) Urine Ketones (Negative) Urine Blood (Negative) Urine Nitrite (Negative) Urine Bilirubin (Negative) Urine Urobilinogen (<2.0) mg/dL Ur Leukocyte Esterase (Negative) Urine Opiates Screen (NotDetected) Ur Oxycodone Screen (NotDetected) Urine Methadone Screen (NotDetected) Ur Barbiturates Screen (NotDetected) U Tricyclic Antidepress (NotDetected) Ur Phencyclidine Scrn (NotDetected) Ur Amphetamines Screen (NotDetected) U Methamphetamines Scrn (NotDetected) U Benzodiazepines Scrn (NotDetected) Urine Cocaine Screen (NotDetected) U Marijuana (THC) Screen (NotDetected) Serum Alcohol <10 mg/dL Acetone, Qual Negative (Negative) 03/01/24 Range/Units 01:18 WBC (3.8-10.6) k/uL RBC (3.80-5.40) m/uL Hgb (11.4-16.0) gm/dL Hct (34.0-46.0) % MCV (80.0-100.0) fL MCH (25.0-35.0) pg MCHC (31.0-37.0) g/dL RDW (11.5-15.5) % Plt Count (150-450) k/uL MPV Neutrophils % % Lymphocytes % % Monocytes % % Eosinophils % % Basophils % % Neutrophils # (1.3-7.7) k/uL Lymphocytes # (1.0-4.8) k/uL Monocytes # (0-1.0) k/uL Eosinophils # (0-0.7) k/uL Basophils # (0-0.2) k/uL Hypochromasia PT (10.0-12.5) sec INR (<1.2) APTT (22.0-30.0) sec Sodium (137-145) mmol/L Potassium (3.5-5.1) mmol/L Chloride (98-107) mmol/L Carbon Dioxide (22-30) mmol/L Anion Gap mmol/L BUN (7-17) mg/dL Creatinine (0.52-1.04) mg/dL Est GFR (CKD-EPI)AfAm (>60 ml/min/1.73 sqM) Est GFR (CKD-EPI)NonAf (>60 ml/min/1.73 sqM) Glucose (74-99) mg/dL POC Glucose (mg/dL) (70-110) mg/dL POC Glu Anhydrous Ammonia Production Supervisor ID Plasma Lactic Acid Ab (0.7-2.0) mmol/L Calcium (8.4-10.2) mg/dL Total Bilirubin (0.2-1.3) mg/dL AST (14-36) U/L ALT (4-34) U/L Alkaline Phosphatase (38-126) U/L Ammonia (<30) umol/L Troponin I (0.000-0.034) ng/mL Total Protein (6.3-8.2) g/dL Albumin (3.5-5.0) g/dL TSH (0.465-4.680) mIU/L Free T4 (0.78-2.19) ng/dL Urine Color Colorless Urine Appearance Clear (Clear) Urine pH 5.5 (5.0-8.0) Ur Specific [place] 1.024 (1.001-1.035) Urine Protein Negative (Negative) Urine Glucose (UA) 4+ H (Negative) Urine Ketones Negative (Negative) Urine Blood Negative (Negative) Urine Nitrite Negative (Negative) Urine Bilirubin Negative (Negative) Urine Urobilinogen <2.0 (<2.0) mg/dL Ur Leukocyte Esterase Negative (Negative) Urine Opiates Screen Not Detected (NotDetected) Ur Oxycodone Screen Not Detected (NotDetected) Urine Methadone Screen Not Detected (NotDetected) Ur Barbiturates Screen Not Detected (NotDetected) U Tricyclic Antidepress Not Detected (NotDetected) Ur Phencyclidine Scrn Not Detected (NotDetected) Ur Amphetamines Screen Not Detected (NotDetected) U Methamphetamines Scrn Not Detected (NotDetected) U Benzodiazepines Scrn Not Detected (NotDetected) Urine Cocaine Screen Not Detected (NotDetected) U Marijuana (THC) Screen Not Detected (NotDetected) Serum Alcohol mg/dL Acetone, Qual (Negative) Disposition Clinical Impression: Hyperosmolar hyperglycemic state (HHS), Acute encephalopathy, Seizure Disposition: ADMITTED IP TO THIS [facility] Condition: Serious Is patient prescribed a controlled substance at d/c from ED?: No Time of Disposition: 02:37 Decision to Admit Reason: Admit from EC Decision Date: 03/01/24 Decision Time: 02:37
[2024-03-01 02:39] LABS: T4, Free (Free Thyroxine) 0.44 ng/dL (0.78-2.19)
[2024-03-01 03:44] LABS: Glucose,Whole Blood >600 mg/dL (70-110)
[2024-03-01] MEDS: D5-0.45% NACL WITH KCL 20MEQ/L 1,000 ML IV SCH ×3 (03:44→14:37)
[2024-03-01 04:46] LABS: Glucose,Whole Blood >600 mg/dL (70-110)
--- NOTE | 2024-03-01 04:52 | P.CNPUL ---
History of Present Illness Consult date: 03/01/24 Requesting physician: Angelica Mcguire Reason for consult: other (ICU management; NS) Chief complaint: Altered mental status; seizure History of present illness: Patient is a 64-year-old female with past medical history significant for insulin-dependent diabetes mellitus, diabetic neuropathy, gastroparesis, hypothyroidism, hypothyroidism, coronary artery disease with previous PCI/stenting, hypertension, hyperlipidemia, DVT, and COPD. Patient has history of uncontrolled type 2 insulin-dependent diabetes. Apparently, a bystander or family member found patient sitting in a chair, confused at her home, and he called EMS. While in route, patient reportedly had a 4-minute seizure witnessed by EMS. Tonic-clonic activity was observed. Terminated with 10 mg of IM Versed. Brain CT without contrast on arrival did not show any acute intracranial hemorrhage, midline shift, or mass effect. There is encephalomalacia in the right occipital lobe consistent with old infarct. On arrival, glucose was noted to be 1192. Serum bicarb 23. Ketone negative. Patient started on the [facility] protocol in the ER. Patient is currently being evaluated in trauma bay 1. She is alert but confused and cannot provide any useful information. Mostly incoherent mumbling. CBC: WBC count 4.1, hemoglobin 11.2, hematocrit 36.6, platelets 363. CMP: Sodium 113, potassium 5.2, chloride 75, serum bicarb 23, BUN 25, creatinine 1.08, glucose 1192. Lactic 1.7. LFTs unremarkable. Troponin 0.013. Patient's sodium when corrected for hyperglycemia is 130. TSH greater than 100, free T4 low at 0.44. Patient does take Synthroid on outpatient basis, likely noncompliant. No edema. Last recorded temperature 98 F. Heart rate 99. Blood pressure 153/96 mmHg. SpO2 99% on room air. Chest x-ray does not show any focal infiltrates consistent with pneumonia. Urinalysis unremarkable for infection. Ketone negative. Urine toxicology screen negative. Serum alcohol less than 10. Normal saline currently infusing at 200 mL/h. Insulin infusing at 10 units per hour. She will be admitted to the intensive care unit once bed available. Review of Systems ROS unobtainable: due to mental status Past Medical History Past Medical History: Coronary Artery Disease (CAD), Cancer, COPD, CVA/TIA, Diabetes Mellitus, Deep Vein Thrombosis (DVT), Eye Disorder, GERD/Reflux, Hyperlipidemia, Hypertension, Myocardial Infarction ([place]), Renal Disease, Rheumatoid Arthritis (RA), Syncope, Thyroid Disorder Additional Past Medical History / Comment(s): 09/16/16 with SBO with surgery/possible septic emboli with cavitary lesions bilateral lungs. Hx: left renal cell carcinoma with partial nephrectomy. 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 DVT left leg 7-8 yrs ago. hypothyroidism, chronic back pain, degenerative disks, hx UTI with sepsis secondary to ESBL producing E. coli Nov2015 requiring PICC line insertion for IV antibiotics. restless leg syndrome, peripheral neuropathy. Hx bilateral glaucoma, hx syncope r/t low blood sugars. No CPAP use. Last Myocardial Infarction Date:: 2019 History of Any Multi-Drug Resistant Organisms: ESBL, MRSA, VRE Date of last positivie culture/infection: 05/07/16 ESBL, 05/15/16 VRE, MRSA 09/2017 - upper lip MDRO Source:: URINE E.COLI, EC GALLINARUM Past Surgical History: Appendectomy, Bowel Resection, Section, Heart Catheterization, Heart Catheterization With Stent, Hernia Repair Additional Past Surgical History / Comment(s): 09/30 exploratory laparotomy with lysis of adhesions, bowel resection d/t obstruction. repair incarcerated incisional hernia with abdominal washout. thyroidectomy(non functioning). heart cath 06/28 - 100% occluded, unable to stent. partial left nephrectomy for left kidney renal cell carcinoma. colonoscopy, bilateral cataract removal with lens implants, 2 Sections. cardiac stent 03/2021 Past Anesthesia/Blood Transfusion Reactions: No Reported Reaction Date of Last Stent Placement:: 04/06/2021 Past Psychological History: Depression Smoking Status: Former smoker Past Alcohol Use History: None Reported Past Drug Use History: Marijuana - Past Family History Sister(s) Family Medical History: Cancer, Deep Vein Thrombosis (DVT) Additional Family Medical History / Comment(s): Patient has one sister that from liver cancer. Brother(s) Family Medical History: Cancer, Deep Vein Thrombosis (DVT) Additional Family Medical History / Comment(s): Patient has 1 brother with past ETOH, past drug abuse, DVTs. She has a second brother that has from throat cancer. Daughter(s) Family Medical History: Diabetes Mellitus, Myocardial Infarction ([place]) Additional Family Medical History / Comment(s): Daughter at 23 yrs old from massive [place]. Father Family Medical History: Myocardial Infarction ([place]) Additional Family Medical History / Comment(s): from [place] at age 44 Mother Family Medical History: Cancer Additional Family Medical History / Comment(s): B/L breast cancer Medications and Allergies Home Medications Medication Instructions Recorded Confirmed Type Venlafaxine HCl [Effexor XR] 225 mg PO DAILY 10/21/16 02/12/24 History Pantoprazole Sodium [Protonix] 40 mg PO BID 04/06/20 02/12/24 History Aspirin EC [Ecotrin Low Dose] 81 mg PO DAILY 10/03/22 02/12/24 History Isosorbide Mononitrate ER [Imdur] 30 mg PO DAILY 04/10/23 02/12/24 History Mirtazapine 7.5 mg PO HS 04/10/23 02/12/24 History cilostazoL [Pletal] 100 mg PO BID 08/02/23 02/12/24 History Losartan [Cozaar] 50 mg PO DAILY #60 tab 08/05/23 02/12/24 Rx Metoprolol Succinate (ER) [Toprol 25 mg PO DAILY #60 tab 08/05/23 02/12/24 Rx XL] Linagliptin [Tradjenta] 5 mg PO DAILY #30 tab 09/05/23 02/12/24 Rx Glucagon [Gvoke Pfs 1-Pack Syringe] 1 mg SQ DIRECTED PRN 02/12/24 02/12/24 History INSULIN LISPRO (HumaLOG) [humaLOG] 4 units SQ AC-TID 02/12/24 02/12/24 History INSULIN LISPRO (HumaLOG) [humaLOG] See Protocol SQ ACHS 02/12/24 02/12/24 History Insulin Glargine [Lantus Vial] 10 unit SQ DAILY 02/12/24 02/12/24 History Acetaminophen Tab [Tylenol] 650 mg PO Q6HR PRN tab 02/18/24 Rx Amoxicillin/Potassium Clav 1 each PO AC-BID #20 tablet 02/18/24 Rx [Amox-Clav 500-125 mg Tablet] Cyanocobalamin [Vitamin B-12] 1,000 mcg PO DAILY tab 02/18/24 Rx Folic Acid 1 mg PO DAILY tab 02/18/24 Rx Levothyroxine Sodium [Synthroid] 25 mcg PO DAILY@0630 #30 tab 02/18/24 Rx Midodrine [ProAmatine] 5 mg PO AC-TID #90 tab 02/18/24 Rx Clindamycin [Cleocin] 450 mg PO Q8H #22 cap 02/27/24 Rx Allergies Allergy/AdvReac Type Severity Reaction Status Date / Time grass pollen Allergy Unknown Verified 02/12/24 16:06 latex Allergy Rash/Hives Verified 02/12/24 16:06 Sulfa (Sulfonamide Allergy Rash/Hives/ Verified 02/12/24 16:06 Antibiotics) Swelling venom-honey bee Allergy Anaphylaxis Verified 02/12/24 16:06 prochlorperazine edisylate AdvReac Vomiting Verified 02/12/24 16:06 [From Compazine] Physical Exam Vitals: Vital Signs Temp Pulse Resp BP Pulse Ox 03/01/24 00:59 98 F 99 18 153/96 97 Intake and Output 02/29/24 02/29/24 03/01/24 14:59 22:59 06:59 Other: Weight 99.79 kg GENERAL EXAM: Alert, responds to questioning with incoherent mumbling, will not follow commands, normothermic, comfortable in no apparent distress. HEAD: Normocephalic and atraumatic EYES: Normal reaction of pupils, equal size. Conjugate. Tracks observer. No nystagmus. Nonicteric sclera. NOSE: Clear with pink turbinates. THROAT: No erythema or exudates. Edentulous. NECK: No masses, no JVD. CHEST: No chest wall deformity. LUNGS: Equal air entry with no crackles, wheeze, rhonchi or dullness. On room air. No conversational dyspnea or accessory muscle use.. CVS: S1 and S2 normal with no audible murmur, regular rhythm. No extra heart sounds ABDOMEN: No hepatosplenomegaly, active bowel sounds, no guarding or rigidity. SPINE: No scoliosis or deformity SKIN: No rashes CENTRAL NERVOUS SYSTEM: No focal deficits, tone is normal in all 4 extremities. No overt signs of seizure-like activity. EXTREMITIES: There is no peripheral edema, clubbing, or cyanosis. Peripheral pulses are intact. Results - Laboratory Findings CBC and BMP: 03/01/24 01:05 03/01/24 01:05 PT/INR, D-dimer PT 9.6 sec (10.0-12.5) L 03/01/24 01:05 INR 0.9 (<1.2) 03/01/24 01:05 Abnormal lab findings: Abnormal Labs 03/01/24 03/01/24 03/01/24 01:03 01:05 01:05 RBC 3.78 L Hgb 11.2 L MCHC 30.7 L PT 9.6 L Sodium Potassium Chloride BUN Creatinine Glucose POC Glucose (mg/dL) >600 H* Alkaline Phosphatase TSH Free T4 Urine Glucose (UA) 03/01/24 03/01/24 03/01/24 01:05 01:18 03:43 RBC Hgb MCHC PT Sodium 113 L* Potassium 5.2 H Chloride 75 L BUN 25 H Creatinine 1.08 H Glucose 1192 H* POC Glucose (mg/dL) >600 H* Alkaline Phosphatase 167 H TSH >100.000 H Free T4 0.44 L Urine Glucose (UA) 4+ H - Diagnostic Findings Chest x-ray: image reviewed CT scan - chest: image reviewed Assessment and Plan Assessment: Hyperosmolar hyperglycemic nonketotic state, suspect secondary to medication noncompliance. Blood glucose 1192, serum bicarb 23, ketone negative. Currently on the [facility] protocol. Severe hypothyroidism, TSH greater than 100, free T4 0.44; also likely secondary to medication noncompliance. Hyponatremia, sodium when corrected for severe hyperglycemia, 130 mmol/L Witnessed seizure activity in-route to hospital Altered mental status, suspect secondary to acute metabolic encephalopathy and a combination of above History of CVA, per brain CT which did not show any acute intracranial hemorrhage, midline shift, or mass effect. There was encephalomalacia in the right occipital lobe consistent with old infarct Insulin-dependent type 2 diabetes mellitus History of diabetic neuropathy History of gastroparesis History of hypothyroidism History of hyperlipidemia Hypertension History of coronary artery disease, with previous PCI/stenting History of DVT History of COPD, inactive Plan: Patient's medications, labs, imaging reviewed Suspect secondary to medication noncompliance. No evidence of inciting infectious process. Brain CT does not show an acute process Obtain EKG Patient has been started on the [facility] protocol Goal of reducing blood glucose by 50 to 100 mg/dL/h. Monitor electrolytes and replace per protocol Continue with IV rehydration Patient cannot resume p.o. meds at this time. Recommend IV push, Synthroid, 50 to 75% of PO dose, then continue PO dose tomorrow if able. No further seizure activity witnessed, so far. Add seizure precautions Consult neurology Patient's prognosis is guarded. She will be monitored in the intensive care unit once bed available. Further recommendations forthcoming. I have personally seen and examined the patient, performed the documentation and the assessment and plan as written. Number of minutes spent on the visit:20 Time with Patient: Greater than 30
[2024-03-01] MEDS: LEVOTHYROXINE IVP 100 MCG/5 ML VIAL IV ONE (06:06)
[2024-03-01 06:20] LABS: African American GFR (CKD) 72 (>60 ml/min/1.73 sqM); Anion Gap 13 mmol/L; Blood Urea Nitrogen 19 mg/dL (7-17); Carbon Dioxide 22 mmol/L (22-30); Chloride 98 mmol/L (98-107); Glucose 333 mg/dL (74-99); Non-African American GFR(CKD) 62 (>60 ml/min/1.73 sqM); Phosphorus 2.6 mg/dL (2.5-4.5); Potassium 3.7 mmol/L (3.5-5.1); Sodium 133 mmol/L (137-145)
[2024-03-01 06:59] LABS: Glucose,Whole Blood 254 mg/dL (70-110)
[2024-03-01 08:07] LABS: Glucose,Whole Blood 145 mg/dL (70-110)
[2024-03-01] MEDS: PANTOPRAZOLE 40 MG/10 ML VIAL IV SCH (08:20)
[2024-03-01] MEDS: HEPARIN SODIUM,PORCINE 5,000 UNIT/ML 1 ML VIAL SQ SCH (08:21)
[2024-03-01 08:29] LABS: Glucose,Whole Blood 121 mg/dL (70-110)
[2024-03-01] MEDS ORDERED: LEVOTHYROXINE IVP 100 MCG/5 ML VIAL IV SCH (09:00)
[2024-03-01 09:06] LABS: Glucose,Whole Blood 126 mg/dL (70-110)
[2024-03-01 09:36] LABS: African American GFR (CKD) 88 (>60 ml/min/1.73 sqM); Anion Gap 10 mmol/L; Blood Urea Nitrogen 16 mg/dL (7-17); Carbon Dioxide 24 mmol/L (22-30); Chloride 100 mmol/L (98-107); Glucose 129 mg/dL (74-99); Non-African American GFR(CKD) 76 (>60 ml/min/1.73 sqM); Phosphorus 2.6 mg/dL (2.5-4.5); Potassium 3.7 mmol/L (3.5-5.1); Sodium 134 mmol/L (137-145)
[2024-03-01 09:43] LABS: Glucose,Whole Blood 139 mg/dL (70-110)
[2024-03-01 10:07] LABS: Glucose,Whole Blood 167 mg/dL (70-110)
[2024-03-01 10:35] LABS: Glucose,Whole Blood 166 mg/dL (70-110)
[2024-03-01 11:14] LABS: Glucose,Whole Blood 186 mg/dL (70-110)
[2024-03-01 12:00] LABS: Glucose,Whole Blood 209 mg/dL (70-110)
[2024-03-01] MEDS: INSULIN DETEMIR (LEVEMIR) 100 UNIT/ML SYR SQ SCH (12:15)
[2024-03-01] MEDS: D5W WITH KCL 20 MEQ/L 1,000 ML IV SCH (12:15)
[2024-03-01] MEDS: INSULIN ASPART (NovoLOG) 100 UNIT/ML VIAL SQ SCH ×4 (12:15→22:13)
--- NOTE | 2024-03-01 12:58 | P.NPCON ---
History of Present Illness - Reason for Consult hyponatremia - History of Present Illness patient is a 64-year-old female with history of diabetes, hypothyroidism, coronary artery disease who is brought into the hospital with mental status changes. Patient apparently had a 4 minute seizure while in route to the ER. Serum sodium was 113 and serum glucose was 1192. Patient was started on insulin drip and serum glucose decreased to 333 about 5 hours later. Serum sodium at that time was noted to be 133 No further seizures noted. Patient has not been eating much. No diarrhea nausea or vomiting noted. no fever noted. Currently maintained on D5 0.45 at 150 mL an hour. Past Medical History Past Medical History: Coronary Artery Disease (CAD), Cancer, COPD, CVA/TIA, Diabetes Mellitus, Deep Vein Thrombosis (DVT), Eye Disorder, GERD/Reflux, Hyperlipidemia, Hypertension, Myocardial Infarction ([place]), Renal Disease, Rheumatoid Arthritis (RA), Syncope, Thyroid Disorder Additional Past Medical History / Comment(s): 09/16/16 with SBO with surg bree/possible septic emboli with cavitary lesions bilateral lungs. Hx: left renal cell carcinoma with partial nephrectomy. 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 DVT left leg 7-8 yrs ago. hypothyroidism, chronic back pain, degenerative disks, hx UTI with sepsis secondary to ESBL producing E. coli 2015 requiring PICC line insertion for IV antibiotics. restless leg syndrome, peripheral neuropathy. Hx bilateral glaucoma, hx syncope r/t low blood sugars. No CPAP use. Last Myocardial Infarction Date:: 2019 History of Any Multi-Drug Resistant Organisms: ESBL, MRSA, VRE Date of last positivie culture/infection: 05/07/16 ESBL, 05/15/16 VRE, MRSA 09/2017 - upper lip MDRO Source:: URINE E.COLI, EC GALLINARUM Past Surgical History: Appendectomy, Bowel Resection, Section, Heart Catheterization, Heart Catheterization With Stent, Hernia Repair Additional Past Surgical History / Comment(s): 09/30 exploratory laparotomy with lysis of adhesions, bowel resection d/t obstruction. repair incarcerated incisional hernia with abdominal washout. thyroidectomy(non functioning). heart cath 06/28 - 100% occluded, unable to stent. partial left nephrectomy for left kidney renal cell carcinoma. colonoscopy, bilateral cataract removal with lens implants, 2 Sections. cardiac stent 03/2021 Past Anesthesia/Blood Transfusion Reactions: No Reported Reaction Date of Last Stent Placement:: 04/06/2021 Past Psychological History: Depression Additional Psychological History / Comment(s): . Smoking Status: Former smoker Past Alcohol Use History: None Reported Additional Past Alcohol Use History / Comment(s): STARTED SMOKING AT AGE 8, smoked one to 1.5 packs per day for 50 years. PT STATES SMOKES 3-4 PACKS PER DAY Stated stopped apr 2023 STATRED AGAIN MAY 2023 SMOKES APPROX 5 CIG A DAY Past Drug Use History: Marijuana Additional Drug Use History / Comment(s): Uses marijuana once or twice a week . Hx of cocaine use over 20 years ago. - Past Family History Sister(s) Family Medical History: Cancer, Deep Vein Thrombosis (DVT) Additional Family Medical History / Comment(s): Patient has one sister that from liver cancer. Brother(s) Family Medical History: Cancer, Deep Vein Thrombosis (DVT) Additional Family Medical History / Comment(s): Patient has 1 brother with past ETOH, past drug abuse, DVTs. She has a second brother that has from throat cancer. Daughter(s) Family Medical History: Diabetes Mellitus, Myocardial Infarction ([place]) Additional Family Medical History / Comment(s): Daughter at 23 yrs old from massive [place]. Father Family Medical History: Myocardial Infarction ([place]) Additional Family Medical History / Comment(s): from [place] at age 44 Mother Family Medical History: Cancer Additional Family Medical History / Comment(s): B/L breast cancer Medications and Allergies Home Medications Medication Instructions Recorded Confirmed Type Venlafaxine HCl [Effexor XR] 225 mg PO DAILY 10/21/16 03/01/24 History Pantoprazole Sodium [Protonix] 40 mg PO BID 04/06/20 03/01/24 History Aspirin EC [Ecotrin Low Dose] 81 mg PO DAILY 10/03/22 03/01/24 History Isosorbide Mononitrate ER [Imdur] 30 mg PO DAILY 04/10/23 03/01/24 History Mirtazapine 7.5 mg PO HS 04/10/23 03/01/24 History cilostazoL [Pletal] 100 mg PO BID 08/02/23 03/01/24 History Losartan [Cozaar] 50 mg PO DAILY #60 tab 08/05/23 03/01/24 Rx Metoprolol Succinate (ER) [Toprol 25 mg PO DAILY #60 tab 08/05/23 03/01/24 Rx XL] Linagliptin [Tradjenta] 5 mg PO DAILY #30 tab 09/05/23 03/01/24 Rx Glucagon [Gvoke Pfs 1-Pack Syringe] 1 mg SQ DIRECTED PRN 02/12/24 03/01/24 History INSULIN LISPRO (HumaLOG) [humaLOG] 4 units SQ AC-TID 02/12/24 03/01/24 History INSULIN LISPRO (HumaLOG) [humaLOG] See Protocol SQ ACHS 02/12/24 03/01/24 History Insulin Glargine [Lantus Vial] 10 unit SQ DAILY 02/12/24 03/01/24 History Acetaminophen Tab [Tylenol] 650 mg PO Q6HR PRN tab 02/18/24 03/01/24 Rx Cyanocobalamin [Vitamin B-12] 1,000 mcg PO DAILY tab 02/18/24 03/01/24 Rx Folic Acid 1 mg PO DAILY tab 02/18/24 03/01/24 Rx Levothyroxine Sodium [Synthroid] 25 mcg PO DAILY@0630 #30 tab 02/18/24 03/01/24 Rx Midodrine [ProAmatine] 5 mg PO AC-TID #90 tab 02/18/24 03/01/24 Rx Doxycycline Monohydrate [Monodox] 100 mg PO DIRECTED 03/01/24 03/01/24 History Allergies Allergy/AdvReac Type Severity Reaction Status Date / Time grass pollen Allergy Unknown Verified 02/12/24 16:06 latex Allergy Rash/Hives Verified 02/12/24 16:06 Sulfa (Sulfonamide Allergy Rash/Hives/ Verified 02/12/24 16:06 Antibiotics) Swelling venom-honey bee Allergy Anaphylaxis Verified 02/12/24 16:06 prochlorperazine edisylate AdvReac Vomiting Verified 02/12/24 16:06 [From Compazine] Physical Exam Vitals: Vital Signs Temp Pulse Resp BP Pulse Ox 03/01/24 11:00 73 12 120/70 97 03/01/24 10:00 74 16 165/85 100 03/01/24 09:00 77 14 164/89 98 03/01/24 08:00 97.8 F 77 12 172/98 97 03/01/24 07:00 78 13 164/79 100 03/01/24 06:00 85 22 98 03/01/24 05:00 81 14 147/76 99 03/01/24 04:46 25 H 147/76 100 03/01/24 04:01 80 20 164/81 100 03/01/24 03:01 81 19 173/93 100 03/01/24 02:01 87 19 151/83 100 03/01/24 00:59 98 F 99 18 153/96 97 Intake and Output 02/29/24 03/01/24 03/01/24 22:59 06:59 14:59 Intake Total 441.828 807.25 Output Total 675 390 Balance -233.172 417.25 Intake: Intake, IV Titration 441.828 807.25 Amount D5-0.45% NaCl with KCl 600 20Meq/l 1,000 ml @ 150 mls/hr IV .Q6H40M [facility] Rx# :[id number] Insulin Regular 100 unit 41.828 7.25 In Sodium Chloride 0.9% 100 ml @ 0.05 UNITS/KG/HR 5.039 mls/hr IV .Q20H3M [facility]URGA Rx#:[id number] Sodium Chloride 0.9% 1, 400 200 000 ml @ 200 mls/hr IV . Q5H [facility] Rx#:[id number] Output: Urine 675 390 Other: Voiding Method Indwelling Catheter Weight 99.79 kg patient is awake, comfortable, no acute distress. She is not able to answer questions appropriately. Examination of the heart S1 and S2 Examination of the lungs bilateral breath sounds are heard Abdomen is soft nontender Examination of lower extremities shows no significant edema Results - Lab Results Most recent lab results Calcium 9.3 mg/dL (8.4-10.2) 03/01/24 01:05 Phosphorus 2.6 mg/dL (2.5-4.5) 03/01/24 09:02 03/01/24 01:05 03/01/24 09:02 Assessment and Plan Assessment: 1. Hyperosmolar nonketotic diabetic state, maintained on insulin drip 2. Pseudohyponatremia associated with significantly elevated blood sugar of 1192. Corrected sodium for the hyperglycemia is 130 if correction factor of 1.6 is used. Continue with D5 0.45 for now. 3. Altered mentation secondary to hyperosmolar non-ketotic diabetic state 4. Severe hypothyroidism with TSH more than 100, T4 at 0.4 Plan: recheck sodium in 4 hours Continue D5 0.45 cautious thyroid supplementation with Synthroid. Thank you for the consultation. We will continue to follow the patient with you during her hospitalization.
[2024-03-01 14:06] LABS: Glucose,Whole Blood 203 mg/dL (70-110)
--- NOTE | 2024-03-01 15:46 | P.CNNES ---
History of Present Illness Consult date: 03/01/24 Requesting physician: Hilario Pool Reason for Consult: seizure acitivty; AMS History of Present Illness: Patient is a 64-year-old female with history of diabetes, expressive aphasia related to previous stroke, came to the hospital by ambulance early this morning at 12:58 AM for altered mental status. Patient not able to provide any history. As as per EMS flowsheet patient's friend at the scene mentioned that he found patient not able to speak and drooling. Earlier patient was found breathing "heavily" and shaking. Friend was a poor historian. To the best of parents knowledge, the last time patient checked her sugar was yesterday. Patient has history of diabetes, stroke and cardiac issues. She is wearing a heart monitor. Fast ED score was 4. Patient's speech was unclear and words are not a ppropriate. While patient was being transported, patient had a seizure. Vital signs on the scene was blood pressure 154/112, pulse rate 120, respiration 26. Blood sugar said "high". Vital signs on arrival blood pressure 153/96, pulse rate 99 temperature 98.0. Blood test showed CBC with hemoglobin 11.2. INR is normal. Sodium 113 potassium 5.2, BUN 25 creatinine 1.08. Blood glucose was 1192. Hemoglobin A1c 15.3. Hepatic panel normal, ammonia normal. Troponin negative. TSH is greater than 100, free T40.44. UA negative. Urine drug screen negative. Blood alcohol level negative. CT head showed no acute intracranial process. Encephalomalacia in the right occipital lobe, consistent with old infarct. I personally reviewed CT head, agree with the findings. EKG showed sinus rhythm. Per nursing report, patient has history of baseline expressive aphasia. Patient not able to provide any history. Her home medications include Effexor, Protonix, aspirin 81 mg, mirtazapine 7.5 mg, isosorbide, Pletal, losartan, metoprolol, Tradjenta, folic acid, levothyroxine, midodrine. B12. Review of Systems ROS unobtainable: due to mental status Past Medical History Past Medical History: Coronary Artery Disease (CAD), Cancer, COPD, CVA/TIA, Diabetes Mellitus, Deep Vein Thrombosis (DVT), Eye Disorder, GERD/Reflux, Hyperlipidemia, Hypertension, Myocardial Infarction (RI), Renal Disease, Rheumatoid Arthritis (RA), Syncope, Thyroid Disorder Additional Past Medical History / Comment(s): 09/16/16 with SBO with surgery/possible septic emboli with cavitary lesions bilateral lungs. Hx: left renal cell carcinoma with partial nephrectomy. 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 DVT left leg 7-8 yrs ago. hypothyroidism, chronic back pain, degenerative disks, hx UTI with sepsis secondary to ESBL producing E. coli 2015 requiring PICC line insertion for IV antibiotics. restless leg syndrome, peripheral neuropathy. Hx bilateral glaucoma, hx syncope r/t low blood sugars. No CPAP use. Last Myocardial Infarction Date:: 2019 History of Any Multi-Drug Resistant Organisms: ESBL, MRSA, VRE Date of last positivie culture/infection: 05/07/16 ESBL, 05/15/16 VRE, MRSA 09/2017 - upper lip MDRO Source:: URINE E.COLI, EC GALLINARUM Past Surgical History: Appendectomy, Bowel Resection, Section, Heart Catheterization, Heart Catheterization With Stent, Hernia Repair Additional Past Surgical History / Comment(s): 09/30 exploratory laparotomy with lysis of adhesions, bowel resection d/t obstruction. repair incarcerated incisional hernia with abdominal washout. thyroidectomy(non functioning). heart cath 06/28 - 100% occluded, unable to stent. partial left nephrectomy for left kidney renal cell carcinoma. colonoscopy, bilateral cataract removal with lens implants, 2 Sections. cardiac stent 03/2021 Past Anesthesia/Blood Transfusion Reactions: No Reported Reaction Date of Last Stent Placement:: 04/06/2021 Past Psychological History: Depression Additional Psychological History / Comment(s): . Smoking Status: Former smoker Past Alcohol Use History: None Reported Additional Past Alcohol Use History / Comment(s): STARTED SMOKING AT AGE 8, smoked one to 1.5 packs per day for 50 years. PT STATES SMOKES 3-4 PACKS PER DAY Stated stopped apr 2023 STATRED AGAIN MAY 2023 SMOKES APPROX 5 CIG A DAY Past Drug Use History: Marijuana Additional Drug Use History / Comment(s): Uses marijuana once or twice a week . Hx of cocaine use over 20 years ago. - Past Family History Sister(s) Family Medical History: Cancer, Deep Vein Thrombosis (DVT) Additional Family Medical History / Comment(s): Patient has one sister that from liver cancer. Brother(s) Family Medical History: Cancer, Deep Vein Thrombosis (DVT) Additional Family Medical History / Comment(s): Patient has 1 brother with past ETOH, past drug abuse, DVTs. She has a second brother that has from throat cancer. Daughter(s) Family Medical History: Diabetes Mellitus, Myocardial Infarction (RI) Additional Family Medical History / Comment(s): Daughter at 23 yrs old from massive RI. Father Family Medical History: Myocardial Infarction (RI) Additional Family Medical History / Comment(s): from RI at age 44 Mother Family Medical History: Cancer Additional Family Medical History / Comment(s): B/L breast cancer Medications and Allergies Home Medications Medication Instructions Recorded Confirmed Type Venlafaxine HCl [Effexor XR] 225 mg PO DAILY 10/21/16 03/01/24 History Pantoprazole Sodium [Protonix] 40 mg PO BID 04/06/20 03/01/24 History Aspirin EC [Ecotrin Low Dose] 81 mg PO DAILY 10/03/22 03/01/24 History Isosorbide Mononitrate ER [Imdur] 30 mg PO DAILY 04/10/23 03/01/24 History Mirtazapine 7.5 mg PO HS 04/10/23 03/01/24 History cilostazoL [Pletal] 100 mg PO BID 08/02/23 03/01/24 History Losartan [Cozaar] 50 mg PO DAILY #60 tab 08/05/23 03/01/24 Rx Metoprolol Succinate (ER) [Toprol 25 mg PO DAILY #60 tab 08/05/23 03/01/24 Rx XL] Linagliptin [Tradjenta] 5 mg PO DAILY #30 tab 09/05/23 03/01/24 Rx Glucagon [Gvoke Pfs 1-Pack Syringe] 1 mg SQ DIRECTED PRN 02/12/24 03/01/24 History INSULIN LISPRO (HumaLOG) [humaLOG] 4 units SQ AC-TID 02/12/24 03/01/24 History INSULIN LISPRO (HumaLOG) [humaLOG] See Protocol SQ ACHS 02/12/24 03/01/24 History Insulin Glargine [Lantus Vial] 10 unit SQ DAILY 02/12/24 03/01/24 History Acetaminophen Tab [Tylenol] 650 mg PO Q6HR PRN tab 02/18/24 03/01/24 Rx Cyanocobalamin [Vitamin B-12] 1,000 mcg PO DAILY tab 02/18/24 03/01/24 Rx Folic Acid 1 mg PO DAILY tab 02/18/24 03/01/24 Rx Levothyroxine Sodium [Synthroid] 25 mcg PO DAILY@0630 #30 tab 02/18/24 03/01/24 Rx Midodrine [ProAmatine] 5 mg PO AC-TID #90 tab 02/18/24 03/01/24 Rx Doxycycline Monohydrate [Monodox] 100 mg PO DIRECTED 03/01/24 03/01/24 History Allergies Allergy/AdvReac Type Severity Reaction Status Date / Time grass pollen Allergy Unknown Verified 02/12/24 16:06 latex Allergy Rash/Hives Verified 02/12/24 16:06 Sulfa (Sulfonamide Allergy Rash/Hives/ Verified 02/12/24 16:06 Antibiotics) Swelling venom-honey bee Allergy Anaphylaxis Verified 02/12/24 16:06 prochlorperazine edisylate AdvReac Vomiting Verified 02/12/24 16:06 [From Compazine] Physical Examination - Vital Signs Vital Signs: Vital Signs Temp Pulse Resp BP Pulse Ox 03/01/24 14:00 74 16 161/82 98 03/01/24 13:00 71 14 147/81 97 03/01/24 12:00 98.6 F 72 14 130/76 97 03/01/24 11:00 73 12 120/70 97 03/01/24 10:00 74 16 165/85 100 03/01/24 09:00 77 14 164/89 98 03/01/24 08:00 97.8 F 77 12 172/98 97 03/01/24 07:00 78 13 164/79 100 03/01/24 06:00 85 22 98 03/01/24 05:00 81 14 147/76 99 03/01/24 04:46 25 H 147/76 100 03/01/24 04:01 80 20 164/81 100 03/01/24 03:01 81 19 173/93 100 03/01/24 02:01 87 19 151/83 100 03/01/24 00:59 98 F 99 18 153/96 97 Intake and Output 03/01/24 03/01/24 03/01/24 06:59 14:59 22:59 Intake Total 305.085 7680.25 Output Total 675 700 Balance -233.172 707.25 Intake: Intake, IV Titration 205.839 9905.25 Amount D5-0.45% NaCl with KCl 600 20Meq/l 1,000 ml @ 150 mls/hr IV .Q6H40M [facility] Rx# :[id number] D5w with KCl 20 Meq/l 1, 600 000 ml @ 150 mls/hr IV . Q6H40M [facility]GA Rx#:[id number] Insulin Regular 100 unit 41.828 7.25 In Sodium Chloride 0.9% 100 ml @ 0.05 UNITS/KG/HR 5.039 mls/hr IV .Q20H3M [facility] Rx#:[id number] Sodium Chloride 0.9% 1, 400 200 000 ml @ 200 mls/hr IV . Q5H [facility] Rx#:[id number] Output: Urine 675 700 Other: Voiding Method Indwelling Catheter Weight 99.79 kg Patient is an elderly female, in no acute distress. Patient is alert awake, but patient has severe expressive aphasia. Patient cannot name or repeat. She does follow some directions as mentioned below. Patient frequently says "hi". Asking patient, which side is weaker, patient did say "That side", pointing to the right side. Attention, concentration and fund of knowledge is very limited. On cranial nerve examination, pupils are equal, round and reacting to light, visual robertson could not be tested reliably. Extraocular muscles are intact with no nystagmus. Face is symmetric, tongue protrudes to the midline. On asking to show the teeth/smile, patient open her mouth widely. No evidence of tongue bite bart. Patient is edentulous. Palatal elevation and sensation normal, hearing and shoulder shrug normal, facial sensation difficult to assess. 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 Deltoid is 3+ on the right, 5 on the left with some pain. Ankle dorsiflexion is 4-on the right, 5 left. Deep tendon reflexes are symmetric, hypoactive and plantars are flat. Patient frequently moans on testing. Sensory to touch is difficult to assess. Not able to express. Sometimes nods head, which is not accurate. She sees some words sporadically. Cerebellar function showed no ataxia for [id number] testing. Cannot assess for [id number] testing because of patient's noncooperation and aphasia. Her tone and bulk of muscles normal. Gait deferred.. On general examination, there is no carotid bruit or murmur, S1-S2 audible. Chest is clear on consultation. Abdomen is soft nontender. No organomegaly, bowel sounds present. Peripheral pulses are present. No peripheral edema. Results - Laboratory Findings CBC and BMP: 03/03/24 05:44 03/03/24 05:44 Abnormal Lab Findings: Abnormal Labs 03/01/24 03/01/24 03/01/24 01:03 01:05 01:05 RBC 3.78 L Hgb 11.2 L MCHC 30.7 L PT 9.6 L Sodium Potassium Chloride BUN Creatinine Glucose POC Glucose (mg/dL) >600 H* Hemoglobin A1c Osmolality Alkaline Phosphatase TSH Free T4 Urine Glucose (UA) 03/01/24 03/01/24 03/01/24 01:05 01:18 03:43 RBC Hgb MCHC PT Sodium 113 L* Potassium 5.2 H Chloride 75 L BUN 25 H Creatinine 1.08 H Glucose 1192 H* POC Glucose (mg/dL) >600 H* Hemoglobin A1c Osmolality Alkaline Phosphatase 167 H TSH >100.000 H Free T4 0.44 L Urine Glucose (UA) 4+ H 03/01/24 03/01/24 03/01/24 04:44 05:46 05:46 RBC Hgb MCHC PT Sodium 133 L Potassium Chloride BUN 19 H Creatinine Glucose 333 H POC Glucose (mg/dL) >600 H* Hemoglobin A1c Osmolality 297 H Alkaline Phosphatase TSH Free T4 Urine Glucose (UA) 03/01/24 03/01/24 03/01/24 05:46 06:58 08:06 RBC Hgb MCHC PT Sodium Potassium Chloride BUN Creatinine Glucose POC Glucose (mg/dL) 254 H 145 H Hemoglobin A1c 15.3 H Osmolality Alkaline Phosphatase TSH Free T4 Urine Glucose (UA) 03/01/24 03/01/24 03/01/24 08:28 09:02 09:04 RBC Hgb MCHC PT Sodium 134 L Potassium Chloride BUN Creatinine Glucose 129 H POC Glucose (mg/dL) 121 H 126 H Hemoglobin A1c Osmolality Alkaline Phosphatase TSH Free T4 Urine Glucose (UA) 03/01/24 03/01/24 03/01/24 09:41 10:04 10:34 RBC Hgb MCHC PT Sodium Potassium Chloride BUN Creatinine Glucose POC Glucose (mg/dL) 139 H 167 H 166 H Hemoglobin A1c Osmolality Alkaline Phosphatase TSH Free T4 Urine Glucose (UA) 03/01/24 03/01/24 03/01/24 11:12 11:59 14:05 RBC Hgb MCHC PT Sodium Potassium Chloride BUN Creatinine Glucose POC Glucose (mg/dL) 186 H 209 H 203 H Hemoglobin A1c Osmolality Alkaline Phosphatase TSH Free T4 Urine Glucose (UA) Assessment and Plan Assessment: * Seizure, likely provoked due to acute metabolic encephalopathy. Reasons multifactorial as below. * Altered mental status, likely due to metabolic encephalopathy. * Hyperosmolar nonketotic diabetic state, with highly elevated blood glucose 1192. * Hyponatremia with sodium 113 * Hypothyroidism, severe, with TSH > 100 * History of CVA with residual expressive aphasia and right-sided weakness * Diabetes, poorly controlled, with A1c 15.1. * Patient admits to smoking. Plan: * Patient's seizure was likely provoked due to acute metabolic encephalopathy. * EEG was performed, which revealed mild to moderate background slowing, suggestive of encephalopathy. No epileptiform activity was seen. * No indication for antiepileptic medication, as seizure was likely provoked due to above factors. * Treatment of hyperglycemia, hyponatremia, and hypothyroidism as per IM and critical care. * Neurology will follow clinically. * Thank you for the consultation.
[2024-03-01 16:03] LABS: Glucose,Whole Blood 123 mg/dL (70-110)
[2024-03-01 17:22] LABS: African American GFR (CKD) >90 (>60 ml/min/1.73 sqM); Anion Gap 8 mmol/L; Blood Urea Nitrogen 13 mg/dL (7-17); Calcium 8.4 mg/dL (8.4-10.2); Carbon Dioxide 20 mmol/L (22-30); Chloride 101 mmol/L (98-107); Glucose 101 mg/dL (74-99); Non-African American GFR(CKD) 88 (>60 ml/min/1.73 sqM); Phosphorus 1.6 mg/dL (2.5-4.5); Potassium 3.9 mmol/L (3.5-5.1); Sodium 129 mmol/L (137-145)
[2024-03-01 18:23] LABS: Glucose,Whole Blood 65 mg/dL (70-110)
[2024-03-01 18:49] LABS: Glucose,Whole Blood 74 mg/dL (70-110)
[2024-03-01] MEDS: POTASSIUM PHOSPHATE 10 MMOL in SODIUM CHLORIDE 0.9% 250 ML IV ONE (18:55)
[2024-03-01 20:07] LABS: Glucose,Whole Blood 156 mg/dL (70-110)
[2024-03-01 20:58] LABS: African American GFR (CKD) >90 (>60 ml/min/1.73 sqM); Anion Gap 9 mmol/L; Blood Urea Nitrogen 12 mg/dL (7-17); Calcium 8.1 mg/dL (8.4-10.2); Carbon Dioxide 17 mmol/L (22-30); Chloride 102 mmol/L (98-107); Glucose 174 mg/dL (74-99); Non-African American GFR(CKD) 87 (>60 ml/min/1.73 sqM); Phosphorus 2.6 mg/dL (2.5-4.5); Sodium 128 mmol/L (137-145)
[2024-03-01 22:08] LABS: Glucose,Whole Blood 282 mg/dL (70-110)
--- NOTE | 2024-03-01 23:31 | P.HPIM ---
History of Present Illness H&P Date: 03/01/24 History of present illness: 64-year-old with active medical history of insulin-dependent diabetes, coronary artery disease, history of for stent, chronic history of arthralgia, chronic neuropathy, previous history of CVA and TIA, coagulopathy with history of DVT, history of rheumatoid arthritis, history of hypertension, hyperlipidemia, recurrent UTI with combination of ESBL and MRSA in the past who also has several admission to the emergency department with chest pain, UTI, severe nonketotic hyperglycemia with history of DKA as well mostly secondary to noncompliance to medication and the claim of nonfunctioning insulin pump who also had recurrent history of encephalopathy and chronic patient challenging circumstances mostly consistent with noncompliance to medication the patient also seen endocrinology regular basis has been on and off insulin pump repeatedly not a clear anymore whether she is on it or not with the last 3 admission to the hospital her insulin pump was stopped completely and placed on short and long-acting insulin which apparently keep being changed repeatedly by her foundation drill operator. Patient found by family member sitting on the stairs confused at home EMS was called to the scene and while she is on arrival she had 4-minute seizure like activity with tonic clonic was observed was giving 10 mg of Versed to terminate her seizure at the time of arrival to the emergency department her blood sugar was 1192 with lactic acid 1.7. Serum bicarbonate was 23 with sodium 113 potassium 5.2 and chloride 75 bun 25 creatinine 1.08. CAT scan of the brain was performed without contrast did not show any intracranial hemorrhage or midline shift or mass effect the patient was incoherent at the time and nonverbal was quite bit confused. DKA protocol was started patient started on insulin drip along with IV hydration admitted to the intensive care unit loaded with benzodiazepine to help with seizure activity and admitted with above problem. REVIEW OF SYSTEMS: CONSTITUTIONAL: Well-developed still incoherent drowsy and sluggish not answering question appropriately does not look in any distress. EYES: No icterus sclerae, no conjunctivitis. EARS, NOSE, MOUTH, THROAT, and FACE: No sore throat, lymphadenopathy, carotid bruits or deformity. RESPIRATORY: No SOB cough or wheezes. CARDIOVASCULAR: No CP, Palpitation, PND, Orthopnea, or angina. GASTROINTESTINAL: No Abd pain, Nausea or vomiting, no Diarrhea or constipation, No GI Bleed, no distention or masses. GENITOURINARY: Mostly incontinence no kidney stone or bloody urine. INTEGUMENT/BREAST: Generalized muscle and joint pain. HEMATOLOGIC/LYMPHATIC: Negative for bleed or purpura. MUSCULOSKELTAL: Myalgia and arthralgia with lower back pain. NEURLOGICAL: Had seizure activity with incoherence significant cephalopathy and not been able to answer any question appropriately at this point. BEHAVIORAL/PSYCH: Negative. ENDOCRINE: Negative. PHYSICAL EXAMINATION: General Appearance: She is opening her eyes not able to answer yet does not look in any respiratory distress. Neck HEENT: Supple, no lymphadenopathy, no thyroid enlargement, no carotid bruits. Lungs: Clear to auscultation without crackles or wheezes no rhonchi, no deformity. Chest Wall: Normal expansion with slight tenderness, slightly at resuscitation. And no deformity was found on exam, no costochondral pain or discomfort. Heart: Regular rate and rhythm, S1, S2 normal, no murmur, rub or gallop. Back: Symmetric, no curvature, ROM normal, no CVA tenderness. Abdomen: Soft, non-tender, bowel sounds active all four quadrants, no masses, no organomegaly. Extremities: Extremities normal, atraumatic, no cyanosis or edema. Pulses: 2+ and symmetric. Skin: Skin color, texture, tugor normal, no rashes or lesions. Neurologic: Alert significantly confused cranial nerves II through XII intact, generalized weakness bilaterally, not been able to do gait exam. ASSESSMENT AND PLAN: _Severe hyperosmolar hyperglycemia with nonketotic hyperglycemia with blood sugar of 1192, patient admitted to the hospital started on insulin or DKA protocol at this point continue hydration watch patient's symptoms carefully. Will hold off on her insulin pump currently and as soon as blood sugar dropped to the 200s we will have her on short and long-acting insulin. _Severe hyponatremia most likely pseudohyponatremia secondary to severe hyperglycemia as soon as her corrected the blood sugar probably the sodium will be corrected continue hydration and recheck sodium level repeatedly. _Witnessed seizure: Most likely secondary to hyponatremia and secondary to hyperglycemia causing her seizure activity will see neurology and probably EEG to be done to exclude any possibility CAT scan of the brain meanwhile was with no intracranial hemorrhage or bleed. Altered mental status: Mostly from severe hyperglycemia and hyponatremia with no seizure activity continue to correct recurrent problem and hopefully her symptoms will improve. _Severe hypothyroidism: Again most likely from noncompliant to medication 100 mcg of levothyroxine can be given IV and switch patient to oral soon as she is able to swallow. Multiple coronary artery disease last angiogram was in June 06, 2023 with mild LAD mild circumflex completely blockage in the RCA. The patient will be on medical management only. COPD: She is on her updraft treatment does not require any oxygen she is on steroids is inhaler as well. Mild PAD has been on Pletal 100 mg twice a day. Type 2 diabetes: She is still seeing endocrinology on regular basis was on insulin pump previously which was very poor choice did not do very well at all blood sugar was all over the map, this time even review her A1c being at 15 2 shows almost complete depletion of insulin in her body whatsoever specially seen the reaction to the smaller dose of insulin she does meaning patient probably not taking any of her medicine for the last several weeks which is the reason why she is in the type of problem she has in the first place. Again the message will be relayed to her foundation drill operator directly again to see if there is any other way to handle this safer way so she is not extremely up and extremely down the way she is coming back to the hospital with worsening condition all the time. Hypertension: Continue losartan 25 mg a day and metoprolol succinate 50 mg daily. Chronic diabetic neuropathy: Has been on gabapentin 600 mg 3 times a day. Will hold off on gabapentin for the next 24 hours. Hypothyroidism: Continue levothyroxine 250 mcg daily. Will continue medication. Hyperlipidemia: Remain on rosuvastatin 40 mg a day with LDL has been below 70. Chronic depression: Has been on Effexor XR 225 mcg daily along with m irtazapine 7.5 mg at bedtime. Gastroparesis with recurrent episode of nausea and vomiting has been on Zofran, Protonix and Reglan. Iron deficiency anemia: Continue iron supplement and IV if needed. GI prophylaxis: Remain on pantoprazole. DVT prophylaxis: Knee-high ALEXANDRE hose and early mobilization. CODE STATUS: Full code. Admit patient to the inpatient service for more than 2 night stay. Past Medical History Past Medical History: Coronary Artery Disease (CAD), Cancer, COPD, CVA/TIA, Diabetes Mellitus, Deep Vein Thrombosis (DVT), Eye Disorder, GERD/Reflux, Hyperlipidemia, Hypertension, Myocardial Infarction (VT), Renal Disease, Rh eumatoid Arthritis (RA), Syncope, Thyroid Disorder Additional Past Medical History / Comment(s): 09/16/16 with SBO with surgery/possible septic emboli with cavitary lesions bilateral lungs. Hx: left renal cell carcinoma with partial nephrectomy. CVA 4, last 5 yrs ago, no resi dual effects. DVT left leg 7-8 yrs ago. hypothyroidism, chronic back pain, degenerative disks, hx UTI with sepsis secondary to ESBL producing E. coli 2015 requiring PICC line insertion for IV antibiotics. restless leg syndrome, peripheral neuropathy. Hx bilateral glaucoma, hx syncope r/t low blood sugars. No CPAP use. Last Myocardial Infarction Date:: 2019 History of Any Multi-Drug Resistant Organisms: ESBL, MRSA, VRE Date of last positivie culture/infection: 05/07/16 ESBL, 05/15/16 VRE, MRSA 09/2017 - upper lip MDRO Source:: URINE E.COLI, EC GALLINARUM Past Surgical History: Appendectomy, Bowel Resection, Section, Heart Catheterization, Heart Catheterization With Stent, Hernia Repair Additional Past Surgical History / Comment(s): 09/30 exploratory laparotomy with lysis of adhesions, bowel resection d/t obstruction. repair incarcerated incisional hernia with abdominal washout. thyroidectomy(non functioning). heart cath 06/28 - 100% occluded, unable to stent. partial left nephrectomy for left kidney renal cell carcinoma. colonoscopy, bilateral cataract removal with lens implants, 2 Sections. cardiac stent 03/2021 Past Anesthesia/Blood Transfusion Reactions: No Reported Reaction Date of Last Stent Placement:: 04/06/2021 Past Psychological History: Depression Additional Psychological History / Comment(s): . Smoking Status: Former smoker Past Alcohol Use History: None Reported Additional Past Alcohol Use History / Comment(s): STARTED SMOKING AT AGE 8, smoked one to 1.5 packs per day for 50 years. PT STATES SMOKES 3-4 PACKS PER DAY Stated stopped apr 2023 STATRED AGAIN MAY 2023 SMOKES APPROX 5 CIG A DAY Past Drug Use History: Marijuana Additional Drug Use History / Comment(s): Uses marijuana once or twice a week . Hx of cocaine use over 20 years ago. - Past Family History Sister(s) Family Medical History: Cancer, Deep Vein Thrombosis (DVT) Additional Family Medical History / Comment(s): Patient has one sister that from liver cancer. Brother(s) Family Medical History: Cancer, Deep Vein Thrombosis (DVT) Additional Family Medical History / Comment(s): Patient has 1 brother with past ETOH, past drug abuse, DVTs. She has a second brother that has from throat cancer. Daughter(s) Family Medical History: Diabetes Mellitus, Myocardial Infarction (VT) Additional Family Medical History / Comment(s): Daughter at 23 yrs old from massive VT. Father Family Medical History: Myocardial Infarction (VT) Additional Family Medical History / Comment(s): from VT at age 44 Mother Family Medical History: Cancer Additional Family Medical History / Comment(s): B/L breast cancer Medications and Allergies Home Medications Medication Instructions Recorded Confirmed Type Venlafaxine HCl [Effexor XR] 225 mg PO DAILY 10/21/16 03/01/24 History Pantoprazole Sodium [Protonix] 40 mg PO BID 04/06/20 03/01/24 History Aspirin EC [Ecotrin Low Dose] 81 mg PO DAILY 10/03/22 03/01/24 History Isosorbide Mononitrate ER [Imdur] 30 mg PO DAILY 04/10/23 03/01/24 History Mirtazapine 7.5 mg PO HS 04/10/23 03/01/24 History cilostazoL [Pletal] 100 mg PO BID 08/02/23 03/01/24 History Losartan [Cozaar] 50 mg PO DAILY #60 tab 08/05/23 03/01/24 Rx Metoprolol Succinate (ER) [Toprol 25 mg PO DAILY #60 tab 08/05/23 03/01/24 Rx XL] Linagliptin [Tradjenta] 5 mg PO DAILY #30 tab 09/05/23 03/01/24 Rx Glucagon [Gvoke Pfs 1-Pack Syringe] 1 mg SQ DIRECTED PRN 02/12/24 03/01/24 History INSULIN LISPRO (HumaLOG) [humaLOG] 4 units SQ AC-TID 02/12/24 03/01/24 History INSULIN LISPRO (HumaLOG) [humaLOG] See Protocol SQ ACHS 02/12/24 03/01/24 History Insulin Glargine [Lantus Vial] 10 unit SQ DAILY 02/12/24 03/01/24 History Acetaminophen Tab [Tylenol] 650 mg PO Q6HR PRN tab 02/18/24 03/01/24 Rx Cyanocobalamin [Vitamin B-12] 1,000 mcg PO DAILY tab 02/18/24 03/01/24 Rx Folic Acid 1 mg PO DAILY tab 02/18/24 03/01/24 Rx Levothyroxine Sodium [Synthroid] 25 mcg PO DAILY@0630 #30 tab 02/18/24 03/01/24 Rx Midodrine [ProAmatine] 5 mg PO AC-TID #90 tab 02/18/24 03/01/24 Rx Doxycycline Monohydrate [Monodox] 100 mg PO DIRECTED 03/01/24 03/01/24 History Allergies Allergy/AdvReac Type Severity Reaction Status Date / Time grass pollen Allergy Unknown Verified 02/12/24 16:06 latex Allergy Rash/Hives Verified 02/12/24 16:06 Sulfa (Sulfonamide Allergy Rash/Hives/ Verified 02/12/24 16:06 Antibiotics) Swelling venom-honey bee Allergy Anaphylaxis Verified 02/12/24 16:06 prochlorperazine edisylate AdvReac Vomiting Verified 02/12/24 16:06 [From Compazine] Physical Exam Vitals: Vital Signs Temp Pulse Resp BP Pulse Ox 03/01/24 07:00 78 13 164/79 100 03/01/24 06:00 85 22 98 03/01/24 05:00 81 14 147/76 99 03/01/24 04:46 25 H 147/76 100 03/01/24 04:01 80 20 164/81 100 03/01/24 03:01 81 19 173/93 100 03/01/24 02:01 87 19 151/83 100 03/01/24 00:59 98 F 99 18 153/96 97 Intake and Output 02/29/24 03/01/24 03/01/24 22:59 06:59 14:59 Intake Total 441.828 200 Output Total 675 80 Balance -233.172 120 Intake: Intake, IV Titration 441.828 200 Amount Insulin Regular 100 unit 41.828 In Sodium Chloride 0.9% 100 ml @ 0.05 UNITS/KG/HR 5.039 mls/hr IV .Q20H3M [facility] Rx#:[id number] Sodium Chloride 0.9% 1, 400 200 000 ml @ 200 mls/hr IV . Q5H [facility] Rx#:[id number] Output: Urine 675 80 Other: Weight 99.79 kg Results CBC & Chem 7: 03/02/24 04:50 03/02/24 04:50 Labs: Abnormal Lab Results - Last 24 Hours (Table) 03/01/24 03/01/24 03/01/24 Range/Units 01:03 01:05 01:05 RBC 3.78 L (3.80-5.40) m/uL Hgb 11.2 L (11.4-16.0) gm/dL MCHC 30.7 L (31.0-37.0) g/dL PT 9.6 L (10.0-12.5) sec Sodium (137-145) mmol/L Potassium (3.5-5.1) mmol/L Chloride (98-107) mmol/L BUN (7-17) mg/dL Creatinine (0.52-1.04) mg/dL Glucose (74-99) mg/dL POC Glucose (mg/dL) >600 H* (70-110) mg/dL Alkaline Phosphatase (38-126) U/L TSH (0.465-4.680) mIU/L Free T4 (0.78-2.19) ng/dL Urine Glucose (UA) (Negative) 03/01/24 03/01/24 03/01/24 Range/Units 01:05 01:18 03:43 RBC (3.80-5.40) m/uL Hgb (11.4-16.0) gm/dL MCHC (31.0-37.0) g/dL PT (10.0-12.5) sec Sodium 113 L* (137-145) mmol/L Potassium 5.2 H (3.5-5.1) mmol/L Chloride 75 L (98-107) mmol/L BUN 25 H (7-17) mg/dL Creatinine 1.08 H (0.52-1.04) mg/dL Glucose 1192 H* (74-99) mg/dL POC Glucose (mg/dL) >600 H* (70-110) mg/dL Alkaline Phosphatase 167 H (38-126) U/L TSH >100.000 H (0.465-4.680) mIU/L Free T4 0.44 L (0.78-2.19) ng/dL Urine Glucose (UA) 4+ H (Negative) 03/01/24 03/01/24 03/01/24 Range/Units 04:44 05:46 06:58 RBC (3.80-5.40) m/uL Hgb (11.4-16.0) gm/dL MCHC (31.0-37.0) g/dL PT (10.0-12.5) sec Sodium 133 L (137-145) mmol/L Potassium (3.5-5.1) mmol/L Chloride (98-107) mmol/L BUN 19 H (7-17) mg/dL Creatinine (0.52-1.04) mg/dL Glucose 333 H (74-99) mg/dL POC Glucose (mg/dL) >600 H* 254 H (70-110) mg/dL Alkaline Phosphatase (38-126) U/L TSH (0.465-4.680) mIU/L Free T4 (0.78-2.19) ng/dL Urine Glucose (UA) (Negative)
--- NOTE | 2024-03-02 00:03 | EEG ---
ELECTROENCEPHALOGRAM REPORT PREAMBLE: This is a 64-year-old female, who had a witnessed seizure. The patient has been altered for unknown time. The patient had a witnessed 4-minute seizure in the ambulance. The patient has a very high glucose of 1192 and also has hyponatremia. CURRENT MEDICATIONS: 1. Heparin. 2. Potassium. 3. Protonix. 4. Insulin. 5. Synthroid. EEG FINDINGS: This is a 21-channel digital EEG recorded with video component, utilizing 10/20 international system with referential and bipolar montages. The background consists of mixed frequencies of relatively well-formed 8 hertz alpha, intermixed with some moderate to high amplitude some theta and delta waves. Background is posterior dominant, and seems to be slightly reactive to eye opening and closing. Different stages of sleep were not seen. No focal or generalized epileptiform activity was seen. IMPRESSION: This is an abnormal EEG due to background slowing suggestive of mild to moderate encephalopathy. No focal, lateralized, or epileptiform activity was seen. MMODL / IJN: [id number] /
[2024-03-02 01:54] LABS: Glucose,Whole Blood 137 mg/dL (70-110)
[2024-03-02 05:28] LABS: Basophils % (A) 1 %; Eosinophils # (A) 0.4 k/uL (0-0.7); Eosinophils % (A) 7 %; HCT 33.3 % (34.0-46.0); HGB 11.3 gm/dL (11.4-16.0); Lymphocytes # (A) 2.5 k/uL (1.0-4.8); Lymphocytes % (A) 48 %; MCH 30.4 pg (25.0-35.0); MCHC 33.8 g/dL (31.0-37.0); Mean Platelet Volume 7.7; Monocytes # (A) 0.1 k/uL (0-1.0); Monocytes % (A) 2 %; Neutrophils # (A) 2.1 k/uL (1.3-7.7); Neutrophils % (A) 41 %; Platelet Count 296 k/uL (150-450); RDW 15.1 % (11.5-15.5); WBC 5.2 k/uL (3.8-10.6)
[2024-03-02 05:31] LABS: African American GFR (CKD) >90 (>60 ml/min/1.73 sqM); Anion Gap 7 mmol/L; Blood Urea Nitrogen 11 mg/dL (7-17); Calcium 8.6 mg/dL (8.4-10.2); Carbon Dioxide 20 mmol/L (22-30); Chloride 104 mmol/L (98-107); Glucose 129 mg/dL (74-99); Magnesium 1.9 mg/dL (1.6-2.3); Non-African American GFR(CKD) 84 (>60 ml/min/1.73 sqM); Potassium 4.2 mmol/L (3.5-5.1); Sodium 131 mmol/L (137-145)
[2024-03-02 05:56] LABS: Glucose,Whole Blood 128 mg/dL (70-110)
[2024-03-02] MEDS: MAGNESIUM SULFATE-D5W PMX 1 GM in DEXTROSE/WATER 1 100ML.BAG IVPB ONE (06:27)
[2024-03-02] MEDS: INSULIN DETEMIR (LEVEMIR) 100 UNIT/ML SYR SQ SCH (06:28)
[2024-03-02] MEDS: LEVOTHYROXINE 25 MCG TAB PO SCH (06:28)
[2024-03-02] MEDS ORDERED: LEVOTHYROXINE 25 MCG TAB PO SCH (06:30)
[2024-03-02 07:17] LABS: HCT 30.1 % (34.0-46.0); HGB 10.3 gm/dL (11.4-16.0); MCH 30.6 pg (25.0-35.0); MCHC 34.1 g/dL (31.0-37.0); MCV 89.6 fL (80.0-100.0); Mean Platelet Volume 8.4; Platelet Count 295 k/uL (150-450); RBC 3.36 m/uL (3.80-5.40)
[2024-03-02 07:23] LABS: ALT 7 U/L (4-34); AST 22 U/L (14-36); African American GFR (CKD) >90 (>60 ml/min/1.73 sqM); Albumin 3.2 g/dL (3.5-5.0); Alkaline Phosphatase 98 U/L (38-126); Anion Gap 8 mmol/L; Blood Urea Nitrogen 10 mg/dL (7-17); Calcium 8.2 mg/dL (8.4-10.2); Carbon Dioxide 20 mmol/L (22-30); Chloride 103 mmol/L (98-107); Glucose 125 mg/dL (74-99); Non-African American GFR(CKD) 85 (>60 ml/min/1.73 sqM); Sodium 131 mmol/L (137-145); Total Bilirubin 0.2 mg/dL (0.2-1.3); Total Protein 5.7 g/dL (6.3-8.2)
[2024-03-02] MEDS: ASPIRIN 81 MG PO SCH (09:34)
[2024-03-02] MEDS: ISOSORBIDE MONONITRATE ER 30 MG TAB.ER.24H PO SCH (09:34)
[2024-03-02] MEDS: LOSARTAN 50 MG TAB PO SCH (09:34)
[2024-03-02] MEDS: CYANOCOBALAMIN 500 MCG TAB PO SCH (09:34)
[2024-03-02] MEDS: FOLIC ACID 1 MG TAB PO SCH (09:34)
[2024-03-02] MEDS: METOPROLOL SUCCINATE (ER) 25 MG TAB.ER.24H PO SCH (09:34)
[2024-03-02] MEDS: PANTOPRAZOLE 40 MG TABLET PO SCH (09:34)
[2024-03-02] MEDS: MIDODRINE 5 MG TAB PO SCH (09:34)
[2024-03-02] MEDS: cilostazoL 100 MG TAB PO SCH (09:35)
[2024-03-02] MEDS: VENLAFAXINE HCL ER 75 MG CAP PO SCH (09:36)
[2024-03-02] MEDS: VENLAFAXINE HCL ER 150 MG CAP PO SCH (09:36)
[2024-03-02] MEDS: LINAGLIPTIN 5 MG TABLET PO SCH (09:36)
--- NOTE | 2024-03-02 09:41 | P.PN ---
Subjective patient is seen for follow-up for pseudohyponatremia associated with severe hyperglycemia. Normal saline running at 50 mL an hour. serum glucose at 125-1 28 mg/dL. Serum sodium was 131 today. Mentation has improved and appears to be at baseline. Objective - Vital Signs Vital signs: Vital Signs Temp 97.9 F 03/02/24 08:00 Pulse 76 03/02/24 09:00 Resp 14 03/02/24 09:00 BP 143/92 03/02/24 09:00 Pulse Ox 97 03/02/24 08:00 FiO2 Intake & Output 03/01/24 03/02/24 03/02/24 18:59 06:59 18:59 Intake Total 1607.25 1230 Output Total 880 690 Balance 727.25 540 Weight 59.3 kg Intake: Intake, IV Titration 1607.25 750 Amount D5-0.45% NaCl with KCl 100 20Meq/l 1,000 ml @ 100 mls/hr IV .Q10H [facility] Rx#: [id number] D5-0.45% NaCl with KCl 600 20Meq/l 1,000 ml @ 150 mls/hr IV .Q6H40M [facility] Rx# :[id number] D5w with KCl 20 Meq/l 1, 600 000 ml @ 150 mls/hr IV . Q6H40M [facility] Rx#:[id number] Insulin Regular 100 unit 7.25 In Sodium Chloride 0.9% 100 ml @ 0.05 UNITS/KG/HR 5.039 mls/hr IV .Q20H3M [facility] Rx#:[id number] Sodium Chloride 0.9% 1, 100 750 000 ml @ 100 mls/hr IV . Q10H [facility] Rx#:[id number] Sodium Chloride 0.9% 1, 200 000 ml @ 200 mls/hr IV . Q5H [facility] Rx#:[id number] Oral 480 Output: Urine 880 690 Other: Voiding Method Indwelling Catheter Indwelling Catheter Indwelling Catheter - Exam patient is awake, comfortable, no acute distress. She is confused on and off Examination of the heart S1 and S2 Examination of the lungs bilateral breath sounds are heard Abdomen is soft nontender Examination of lower extremities shows no significant edema. Patient is moving all 4 extremities. - Labs CBC & Chem 7: 03/02/24 06:06 03/02/24 06:06 Labs: Abnormal Lab Results - Last 24 Hours (Table) 03/01/24 03/01/24 03/01/24 Range/Units 05:46 09:41 10:04 RBC (3.80-5.40) m/uL Hgb (11.4-16.0) gm/dL Hct (34.0-46.0) % Sodium (137-145) mmol/L Carbon Dioxide (22-30) mmol/L Glucose (74-99) mg/dL POC Glucose (mg/dL) 139 H 167 H (70-110) mg/dL Hemoglobin A1c (<=6.0) % Osmolality 297 H (275-295) mOsm/kg Calcium (8.4-10.2) mg/dL Phosphorus (2.5-4.5) mg/dL Total Protein (6.3-8.2) g/dL Albumin (3.5-5.0) g/dL Urine Osmolality (400-1100) mOsm/kg Ur Random Sodium (40-220) mmol/L 03/01/24 03/01/24 03/01/24 Range/Units 10:34 11:12 11:59 RBC (3.80-5.40) m/uL Hgb (11.4-16.0) gm/dL Hct (34.0-46.0) % Sodium (137-145) mmol/L Carbon Dioxide (22-30) mmol/L Glucose (74-99) mg/dL POC Glucose (mg/dL) 166 H 186 H 209 H (70-110) mg/dL Hemoglobin A1c (<=6.0) % Osmolality (275-295) mOsm/kg Calcium (8.4-10.2) mg/dL Phosphorus (2.5-4.5) mg/dL Total Protein (6.3-8.2) g/dL Albumin (3.5-5.0) g/dL Urine Osmolality (400-1100) mOsm/kg Ur Random Sodium (40-220) mmol/L 03/01/24 03/01/24 03/01/24 Range/Units 14:05 16:02 16:29 RBC (3.80-5.40) m/uL Hgb (11.4-16.0) gm/dL Hct (34.0-46.0) % Sodium 129 L (137-145) mmol/L Carbon Dioxide 20 L (22-30) mmol/L Glucose 101 H (74-99) mg/dL POC Glucose (mg/dL) 203 H 123 H (70-110) mg/dL Hemoglobin A1c (<=6.0) % Osmolality (275-295) mOsm/kg Calcium (8.4-10.2) mg/dL Phosphorus 1.6 L (2.5-4.5) mg/dL Total Protein (6.3-8.2) g/dL Albumin (3.5-5.0) g/dL Urine Osmolality (400-1100) mOsm/kg Ur Random Sodium (40-220) mmol/L 03/01/24 03/01/24 03/01/24 Range/Units 18:22 20:06 20:28 RBC (3.80-5.40) m/uL Hgb (11.4-16.0) gm/dL Hct (34.0-46.0) % Sodium 128 L (137-145) mmol/L Carbon Dioxide 17 L (22-30) mmol/L Glucose 174 H (74-99) mg/dL POC Glucose (mg/dL) 65 L 156 H (70-110) mg/dL Hemoglobin A1c (<=6.0) % Osmolality (275-295) mOsm/kg Calcium 8.1 L (8.4-10.2) mg/dL Phosphorus (2.5-4.5) mg/dL Total Protein (6.3-8.2) g/dL Albumin (3.5-5.0) g/dL Urine Osmolality (400-1100) mOsm/kg Ur Random Sodium (40-220) mmol/L 03/01/24 03/01/24 03/01/24 Range/Units 22:07 23:03 23:03 RBC (3.80-5.40) m/uL Hgb (11.4-16.0) gm/dL Hct (34.0-46.0) % Sodium (137-145) mmol/L Carbon Dioxide (22-30) mmol/L Glucose (74-99) mg/dL POC Glucose (mg/dL) 282 H (70-110) mg/dL Hemoglobin A1c (<=6.0) % Osmolality (275-295) mOsm/kg Calcium (8.4-10.2) mg/dL Phosphorus (2.5-4.5) mg/dL Total Protein (6.3-8.2) g/dL Albumin (3.5-5.0) g/dL Urine Osmolality 201 L (400-1100) mOsm/kg Ur Random Sodium <20 L (40-220) mmol/L 03/02/24 03/02/24 03/02/24 Range/Units 01:52 04:50 04:50 RBC 3.70 L (3.80-5.40) m/uL Hgb 11.3 L (11.4-16.0) gm/dL Hct 33.3 L (34.0-46.0) % Sodium (137-145) mmol/L Carbon Dioxide (22-30) mmol/L Glucose (74-99) mg/dL POC Glucose (mg/dL) 137 H (70-110) mg/dL Hemoglobin A1c 15.1 H (<=6.0) % Osmolality (275-295) mOsm/kg Calcium (8.4-10.2) mg/dL Phosphorus (2.5-4.5) mg/dL Total Protein (6.3-8.2) g/dL Albumin (3.5-5.0) g/dL Urine Osmolality (400-1100) mOsm/kg Ur Random Sodium (40-220) mmol/L 03/02/24 03/02/24 03/02/24 Range/Units 04:50 05:54 06:06 RBC 3.36 L (3.80-5.40) m/uL Hgb 10.3 L (11.4-16.0) gm/dL Hct 30.1 L (34.0-46.0) % Sodium 131 L (137-145) mmol/L Carbon Dioxide 20 L (22-30) mmol/L Glucose 129 H (74-99) mg/dL POC Glucose (mg/dL) 128 H (70-110) mg/dL Hemoglobin A1c (<=6.0) % Osmolality (275-295) mOsm/kg Calcium (8.4-10.2) mg/dL Phosphorus (2.5-4.5) mg/dL Total Protein (6.3-8.2) g/dL Albumin (3.5-5.0) g/dL Urine Osmolality (400-1100) mOsm/kg Ur Random Sodium (40-220) mmol/L 03/02/24 Range/Units 06:06 RBC (3.80-5.40) m/uL Hgb (11.4-16.0) gm/dL Hct (34.0-46.0) % Sodium 131 L (137-145) mmol/L Carbon Dioxide 20 L (22-30) mmol/L Glucose 125 H (74-99) mg/dL POC Glucose (mg/dL) (70-110) mg/dL Hemoglobin A1c (<=6.0) % Osmolality (275-295) mOsm/kg Calcium 8.2 L (8.4-10.2) mg/dL Phosphorus (2.5-4.5) mg/dL Total Protein 5.7 L (6.3-8.2) g/dL Albumin 3.2 L (3.5-5.0) g/dL Urine Osmolality (400-1100) mOsm/kg Ur Random Sodium (40-220) mmol/L Assessment and Plan Assessment: 1. Hyperosmolar nonketotic diabetic state, maintained on insulin drip 2. Pseudohyponatremia associated with significantly elevated blood sugar of 1192. Corrected sodium for the hyperglycemia is 130 if correction factor of 1.6 is used. 3. Altered mentation secondary to hyperosmolar non-ketotic diabetic state 4. Severe hypothyroidism with TSH more than 100, T4 at 0.4 Plan: continue to encourage increased oral intake May continue with saline at 50 mL an hour Repeat labs in a.m. Continue supplementation with Synthroid
[2024-03-02 09:43] LABS: Glucose,Whole Blood 306 mg/dL (70-110)
[2024-03-02] MEDS: INSULIN ASPART (NovoLOG) 100 UNIT/ML VIAL SQ SCH (09:43)
--- NOTE | 2024-03-02 10:28 | P.PN ---
Subjective Progress Note Date: 03/02/24 Principal diagnosis: Seizure. Patient is a 64-year-old female with past medical history significant for insulin-dependent diabetes mellitus, diabetic neuropathy, gastroparesis, hy pothyroidism, hypothyroidism, coronary artery disease with previous PCI/stenting, hypertension, hyperlipidemia, DVT, and COPD. Patient has history of uncontrolled type 2 insulin-dependent diabetes. Apparently, a bystander or family member found patient sitting in a chair, confused at her home, and he called EMS. While in route, patient reportedly had a 4-minute seizure witnessed by EMS. Tonic-clonic activity was observed. Terminated with 10 mg of IM Versed. Brain CT without contrast on arrival did not show any acute intracranial hemorrhage, midline shift, or mass effect. There is enceph alomalacia in the right occipital lobe consistent with old infarct. On arrival, glucose was noted to be 1192. Serum bicarb 23. Ketone negative. Patient started on the [facility] protocol in the ER. Patient is currently being evaluated in trauma bay 1. She is alert but confused and cannot provide any useful information. Mostly incoherent mumbling. CBC: WBC count 4.1, hemoglobin 11.2, hematocrit 36.6, platelets 363. CMP: Sodium 113, potassium 5.2, chloride 75, serum bicarb 23, BUN 25, creatinine 1.08, glucose 1192. Lactic 1.7. LFTs unremarkable. Troponin 0.013. Patient's sodium when corrected for hyperglycemia is 130. TSH greater than 100, free T4 low at 0.44. Patient does take Synthroid on outpatient basis, likely noncompliant. No edema. Last recorded temperature 98 F. Heart rate 99. Blood pressure 153/96 mmHg. SpO2 99% on room air. Chest x-ray does not show any focal infiltrates consistent with pneumonia. Urinalysis unremarkable for infection. Ketone negative. Urine toxicology screen negative. Serum alcohol less than 10. Normal saline currently infusing at 200 mL/h. Insulin infusing at 10 units per hour. She will be admitted to the intensive care unit once bed available. Progress note dated March 02, 2024. 64-year-old female seen yesterday in consultation. The patient was admitted with a diagnosis of hyperosmolar nonketotic coma. Her blood glucose was well over thousand. In addition, she had pseudohyponatremia. The patient was admitted to the intensive care unit for further monitoring and management, given the fact that she had a seizure. Currently, she is resting comfortably in the ICU. She is in room 260. She is on room air. She is getting saline at 50 cc an hour. Since being in the intensive care unit, she has had no further seizure activity. Current labs include a white count of 5, hemoglobin 10.3, hematocrit 30.1, and a normal platelet count. Sodium 131, potassium 4, chlorides 103, CO2 20, BUN 10, creatinine 0.75. Blood sugar is 306. Calcium 8.2. Albumin 3.2. Objective - Vital Signs Vital signs: Vital Signs Temp 97.9 F 03/02/24 08:00 Pulse 76 03/02/24 09:00 Resp 14 03/02/24 09:00 BP 143/92 03/02/24 09:00 Pulse Ox 97 03/02/24 08:00 FiO2 Intake & Output 03/01/24 03/02/24 03/02/24 18:59 06:59 18:59 Intake Total 1607.25 1230 Output Total 880 690 Balance 727.25 540 Weight 59.3 kg Intake: Intake, IV Titration 1607.25 750 Amount D5-0.45% NaCl with KCl 100 20Meq/l 1,000 ml @ 100 mls/hr IV .Q10H [facility] Rx#: [id number] D5-0.45% NaCl with KCl 600 20Meq/l 1,000 ml @ 150 mls/hr IV .Q6H40M [facility] Rx# :[id number] D5w with KCl 20 Meq/l 1, 600 000 ml @ 150 mls/hr IV . Q6H40M [facility] Rx#:[id number] Insulin Regular 100 unit 7.25 In Sodium Chloride 0.9% 100 ml @ 0.05 UNITS/KG/HR 5.039 mls/hr IV .Q20H3M [facility] Rx#:[id number] Sodium Chloride 0.9% 1, 100 750 000 ml @ 100 mls/hr IV . Q10H [facility] Rx#:[id number] Sodium Chloride 0.9% 1, 200 000 ml @ 200 mls/hr IV . Q5H [facility] Rx#:[id number] Oral 480 Output: Urine 880 690 Other: Voiding Method Indwelling Catheter Indwelling Catheter Indwelling Catheter - Exam No acute distress, oriented 3. Patient currently on room air. Saturation is 97%. HEENT examination is grossly unremarkable. Mucous membranes are moist. No oral lesions. Neck supple. Full range of motion. No adenopathy thyromegaly or neck vein distention. Cardiovascular examination reveals regular rhythm rate. S1-S2 normal. No S3 or S4. No discernible murmur noted. Lungs reveal clear breath sounds. Breath sounds are equal bilaterally. No a dventitious lung sounds including wheezes rhonchi or crackles. Abdomen soft bowel sounds are heard. No masses or tenderness. Extremities are intact. No cyanosis clubbing or edema. Skin is without rash or lesion. Neurologic examination is brief but nonfocal. - Labs CBC & Chem 7: 03/02/24 06:06 03/02/24 06:06 Labs: Abnormal Lab Results - Last 24 Hours (Table) 03/01/24 03/01/24 03/01/24 Range/Units 05:46 10:34 11:12 RBC (3.80-5.40) m/uL Hgb (11.4-16.0) gm/dL Hct (34.0-46.0) % Sodium (137-145) mmol/L Carbon Dioxide (22-30) mmol/L Glucose (74-99) mg/dL POC Glucose (mg/dL) 166 H 186 H (70-110) mg/dL Hemoglobin A1c (<=6.0) % Osmolality 297 H (275-295) mOsm/kg Calcium (8.4-10.2) mg/dL Phosphorus (2.5-4.5) mg/dL Total Protein (6.3-8.2) g/dL Albumin (3.5-5.0) g/dL Urine Osmolality (400-1100) mOsm/kg Ur Random Sodium (40-220) mmol/L 03/01/24 03/01/24 03/01/24 Range/Units 11:59 14:05 16:02 RBC (3.80-5.40) m/uL Hgb (11.4-16.0) gm/dL Hct (34.0-46.0) % Sodium (137-145) mmol/L Carbon Dioxide (22-30) mmol/L Glucose (74-99) mg/dL POC Glucose (mg/dL) 209 H 203 H 123 H (70-110) mg/dL Hemoglobin A1c (<=6.0) % Osmolality (275-295) mOsm/kg Calcium (8.4-10.2) mg/dL Phosphorus (2.5-4.5) mg/dL Total Protein (6.3-8.2) g/dL Albumin (3.5-5.0) g/dL Urine Osmolality (400-1100) mOsm/kg Ur Random Sodium (40-220) mmol/L 03/01/24 03/01/24 03/01/24 Range/Units 16:29 18:22 20:06 RBC (3.80-5.40) m/uL Hgb (11.4-16.0) gm/dL Hct (34.0-46.0) % Sodium 129 L (137-145) mmol/L Carbon Dioxide 20 L (22-30) mmol/L Glucose 101 H (74-99) mg/dL POC Glucose (mg/dL) 65 L 156 H (70-110) mg/dL Hemoglobin A1c (<=6.0) % Osmolality (275-295) mOsm/kg Calcium (8.4-10.2) mg/dL Phosphorus 1.6 L (2.5-4.5) mg/dL Total Protein (6.3-8.2) g/dL Albumin (3.5-5.0) g/dL Urine Osmolality (400-1100) mOsm/kg Ur Random Sodium (40-220) mmol/L 03/01/24 03/01/24 03/01/24 Range/Units 20:28 22:07 23:03 RBC (3.80-5.40) m/uL Hgb (11.4-16.0) gm/dL Hct (34.0-46.0) % Sodium 128 L (137-145) mmol/L Carbon Dioxide 17 L (22-30) mmol/L Glucose 174 H (74-99) mg/dL POC Glucose (mg/dL) 282 H (70-110) mg/dL Hemoglobin A1c (<=6.0) % Osmolality (275-295) mOsm/kg Calcium 8.1 L (8.4-10.2) mg/dL Phosphorus (2.5-4.5) mg/dL Total Protein (6.3-8.2) g/dL Albumin (3.5-5.0) g/dL Urine Osmolality 201 L (400-1100) mOsm/kg Ur Random Sodium (40-220) mmol/L 03/01/24 03/02/24 03/02/24 Range/Units 23:03 01:52 04:50 RBC (3.80-5.40) m/uL Hgb (11.4-16.0) gm/dL Hct (34.0-46.0) % Sodium (137-145) mmol/L Carbon Dioxide (22-30) mmol/L Glucose (74-99) mg/dL POC Glucose (mg/dL) 137 H (70-110) mg/dL Hemoglobin A1c 15.1 H (<=6.0) % Osmolality (275-295) mOsm/kg Calcium (8.4-10.2) mg/dL Phosphorus (2.5-4.5) mg/dL Total Protein (6.3-8.2) g/dL Albumin (3.5-5.0) g/dL Urine Osmolality (400-1100) mOsm/kg Ur Random Sodium <20 L (40-220) mmol/L 03/02/24 03/02/24 03/02/24 Range/Units 04:50 04:50 05:54 RBC 3.70 L (3.80-5.40) m/uL Hgb 11.3 L (11.4-16.0) gm/dL Hct 33.3 L (34.0-46.0) % Sodium 131 L (137-145) mmol/L Carbon Dioxide 20 L (22-30) mmol/L Glucose 129 H (74-99) mg/dL POC Glucose (mg/dL) 128 H (70-110) mg/dL Hemoglobin A1c (<=6.0) % Osmolality (275-295) mOsm/kg Calcium (8.4-10.2) mg/dL Phosphorus (2.5-4.5) mg/dL Total Protein (6.3-8.2) g/dL Albumin (3.5-5.0) g/dL Urine Osmolality (400-1100) mOsm/kg Ur Random Sodium (40-220) mmol/L 03/02/24 03/02/24 03/02/24 Range/Units 06:06 06:06 09:42 RBC 3.36 L (3.80-5.40) m/uL Hgb 10.3 L (11.4-16.0) gm/dL Hct 30.1 L (34.0-46.0) % Sodium 131 L (137-145) mmol/L Carbon Dioxide 20 L (22-30) mmol/L Glucose 125 H (74-99) mg/dL POC Glucose (mg/dL) 306 H (70-110) mg/dL Hemoglobin A1c (<=6.0) % Osmolality (275-295) mOsm/kg Calcium 8.2 L (8.4-10.2) mg/dL Phosphorus (2.5-4.5) mg/dL Total Protein 5.7 L (6.3-8.2) g/dL Albumin 3.2 L (3.5-5.0) g/dL Urine Osmolality (400-1100) mOsm/kg Ur Random Sodium (40-220) mmol/L Assessment and Plan Assessment: Hyperosmolar hyperglycemic nonketotic state, suspect secondary to medication noncompliance. Severe hypothyroidism, TSH greater than 100, free T4 0.44; also likely secondary to medication noncompliance. Hyponatremia, sodium when corrected for severe hyperglycemia, 130 mmol/L. Witnessed seizure activity in-route to hospital. Altered mental status, suspect secondary to acute metabolic encephalopathy. History of CVA, per brain CT which did not show any acute intracranial hemorrhage, midline shift, or mass effect. Insulin-dependent type 2 diabetes mellitus. History of diabetic neuropathy. History of gastroparesis. History of hypothyroidism. History of hyperlipidemia. Hypertension. History of coronary artery disease, with previous PCI/stenting. History of DVT. History of COPD, inactive. Plan: Plan dated March 02, 2024. The patient is seen in room 260. The patient is on room air. She is getting saline at 50 cc an hour. Labs, x-rays, and all medications are reviewed. The patient is doing much better, metabolically, although her mental status is still poor. The patient is stable to be transferred out of the intensive care unit, to the general medical floor. We will continue to follow. Prognosis is guarded. Time with Patient: Less than 30
[2024-03-02 16:35] LABS: Glucose,Whole Blood 53 mg/dL (70-110)
[2024-03-02 16:35] LABS: Glucose,Whole Blood 63 mg/dL (70-110)
[2024-03-02 16:35] LABS: Glucose,Whole Blood 113 mg/dL (70-110)
[2024-03-02] MEDS: MIRTAZAPINE 15 MG TAB PO SCH (20:11)
[2024-03-02 22:25] LABS: Glucose,Whole Blood 149 mg/dL (70-110)
[2024-03-03 01:38] LABS: Glucose,Whole Blood 183 mg/dL (70-110)
[2024-03-03 05:23] LABS: Glucose,Whole Blood 114 mg/dL (70-110)
[2024-03-03 05:54] LABS: Basophils % (A) 0 %; Eosinophils # (A) 0.6 k/uL (0-0.7); Eosinophils % (A) 8 %; HCT 32.6 % (34.0-46.0); HGB 10.6 gm/dL (11.4-16.0); Lymphocytes # (A) 1.9 k/uL (1.0-4.8); Lymphocytes % (A) 25 %; MCH 29.9 pg (25.0-35.0); MCHC 32.5 g/dL (31.0-37.0); Mean Platelet Volume 7.2; Monocytes # (A) 0.2 k/uL (0-1.0); Monocytes % (A) 3 %; Neutrophils # (A) 4.6 k/uL (1.3-7.7); Neutrophils % (A) 62 %; Platelet Count 314 k/uL (150-450); RBC 3.55 m/uL (3.80-5.40); RDW 14.6 % (11.5-15.5); WBC 7.4 k/uL (3.8-10.6)
[2024-03-03 06:19] LABS: African American GFR (CKD) 81 (>60 ml/min/1.73 sqM); Anion Gap 5 mmol/L; Blood Urea Nitrogen 9 mg/dL (7-17); Calcium 8.5 mg/dL (8.4-10.2); Carbon Dioxide 20 mmol/L (22-30); Chloride 107 mmol/L (98-107); Glucose 112 mg/dL (74-99); Magnesium 2.1 mg/dL (1.6-2.3); Non-African American GFR(CKD) 70 (>60 ml/min/1.73 sqM); Potassium 4.5 mmol/L (3.5-5.1); Sodium 132 mmol/L (137-145)
--- NOTE | 2024-03-03 06:37 | P.PN ---
Subjective Progress Note Date: 03/02/24 History of present illness: 64-year-old with active medical history of insulin-dependent diabetes, coronary artery disease, history of for stent, chronic history of arthralgia, chronic neuropathy, previous history of CVA and TIA, coagulopathy with history of DVT, history of rheumatoid arthritis, history of hypertension, hyperlipidemia, recurrent UTI with combination of ESBL and MRSA in the past who also has several admission to the emergency department with chest pain, UTI, severe nonketotic hyperglycemia with history of DKA as well mostly secondary to noncompliance to medication and the claim of nonfunctioning insulin pump who also had recurrent history of encephalopathy and chronic patient challenging circumstances mostly consistent with noncompliance to medication the patient also seen endocrinology regular basis has been on and off insulin pump repeatedly not a clear anymore whether she is on it or not with the last 3 admission to the hospital her insulin pump was stopped completely and placed on short and long-acting insulin which apparently keep being changed repeatedly 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 Patient found by family member sitting on the stairs confused at home EMS was called to the scene and while she is on arrival she had 4-minute seizure like activity with tonic clonic was observed was giving 10 mg of Versed to terminate her seizure at the time of arrival to the emergency department her blood sugar was 1192 with lactic acid 1.7. Serum bicarbonate was 23 with sodium 113 potassium 5.2 and chloride 75 bun 25 creatinine 1.08. CAT scan of the brain was performed without contrast did not show any intracranial hemorrhage or midline shift or mass effect the patient was incoherent at the time and nonverbal was quite bit confused. DKA protocol was started patient started on insulin drip along with IV hydration admitted to the intensive care unit loaded with benzodiazepine to help with seizure activity and admitted with above problem. 03/02/2024: She is continue to struggle quite a bit with her expressive aphasia which look like more than seizure possibility of stroke is a bit higher and despite the fact the patient still recovering from her severe encephalopathy which is can be part of the problem at this point. Will consult speech therapy while she is in the ICU the meanwhile her blood sugar has been much better and the new adjusted regime of her diabetic management between doing NovoLog every 4 hours and having 4 units of NovoLog AC meals 3 times a day and having to be Levemir 10 units in the morning with Tradjenta 5 mg a day skipping her blood sugar under better control. Patient is not having any ketone at this point she is not severely hyperglycemic and her hyponatremia has improved with osmolality has been better. She is seen neurology today before the idea especially with her seizure and her mental status most likely the severe hyperglycemia and hyponatremia what provoked the seizure in the first place that with her expressive aphasia and right-sided weakness not quite sure if she had any extension of her stroke from before not time only can tell further testing might be needed. Her EEG from day before came back quite bit abnormal but mostly due to moderate encephalopathy with no focal lateralization or epileptiform activity seen. REVIEW OF SYSTEMS: CONSTITUTIONAL: Well-developed still incoherent drowsy and sluggish not answering question appropriately does not look in any distress. EYES: No icterus sclerae, no conjunctivitis. EARS, NOSE, MOUTH, THROAT, and FACE: No sore throat, lymphadenopathy, carotid bruits or deformity. RESPIRATORY: No SOB cough or wheezes. CARDIOVASCULAR: No CP, Palpitation, PND, Orthopnea, or angina. GASTROINTESTINAL: No Abd pain, Nausea or vomiting, no Diarrhea or constipation, No GI Bleed, no distention or masses. GENITOURINARY: Mostly incontinence no kidney stone or bloody urine. INTEGUMENT/BREAST: Generalized muscle and joint pain. HEMATOLOGIC/LYMPHATIC: Negative for bleed or purpura. MUSCULOSKELTAL: Myalgia and arthralgia with lower back pain. NEURLOGICAL: Had seizure activity with incoherence significant cephalopathy and not been able to answer any question appropriately at this point. BEHAVIORAL/PSYCH: Negative. ENDOCRINE: Negative. PHYSICAL EXAMINATION: General Appearance: She is opening her eyes not able to answer yet does not look in any respiratory distress. Neck HEENT: Supple, no lymphadenopathy, no thyroid enlargement, no carotid bruits. Lungs: Clear to auscultation without crackles or wheezes no rhonchi, no deformity. Chest Wall: Normal expansion with slight tenderness, slightly at resuscitation. And no deformity was found on exam, no costochondral pain or discomfort. Heart: Regular rate and rhythm, S1, S2 normal, no murmur, rub or gallop. Back: Symmetric, no curvature, ROM normal, no CVA tenderness. Abdomen: Soft, non-tender, bowel sounds active all four quadrants, no masses, no organomegaly. Extremities: Extremities normal, atraumatic, no cyanosis or edema. Pulses: 2+ and symmetric. Skin: Skin color, texture, tugor normal, no rashes or lesions. Neurologic: Alert significantly confused cranial nerves II through XII intact, generalized weakness bilaterally, not been able to do gait exam. ASSESSMENT AND PLAN: _Severe hyperosmolar hyperglycemia with nonketotic hyperglycemia blood sugars much better she is off insulin drip and back on NovoLog 4 units AC meals plus sliding scales coverage with Levemir 10 units a day and back on Tradjenta. Despite the blood sugar has been better her mental status and confusion has not improved yet so far. _Severe hyponatremia most likely pseudohyponatremia secondary to severe hyperglycemia sodium is corrected up to 132 has been much better so far. _Witnessed seizure: Was secondary to hyperglycemia and hyponatremia her EEG is negative for any epileptiform abnormality but mostly consistent with encephalopathy she is remain on Keppra but will be stopped probably in the next day or 2. _? Of stroke: Patient still having significant expressive aphasia and weakness in the right side slightly but worsening than her baseline at some point probably running another MRI of the brain would be quite bit helpful patient is not stable for it yet. Altered mental status: Mostly from severe hyperglycemia and hyponatremia with no seizure activity continue to correct recurrent problem and hopefully her symptoms will improve. _Severe hypothyroidism: Again most likely from noncompliant to medication 100 mcg of levothyroxine can be given IV and switch patient to oral soon as she is able to swallow. Multiple coronary artery disease last angiogram was in June 06, 2023 with mild LAD mild circumflex completely blockage in the RCA. The patient will be on medical management only. COPD: She is on her updraft treatment does not require any oxygen she is on steroids is inhaler as well. Mild PAD has been on Pletal 100 mg twice a day. Type 2 diabetes: Again seen how easy is to control her blood sugar with smaller dose of NovoLog and Levemir with Tradjenta I see her compliance is technically the main problem here and her education how to care for herself and give herself insulin is probably part of the problem is for the few time of seeing her in the hospital so far I have not seen any family member comes around to talk to or be over concerned I still believe she is the only person who is doing this on her own sometimes find doing any of her medication including her insulin is not necessary for her survival whatsoever which is part of the problem might she keep coming back with either severe hypo or hyperglycemia creating more problem sadly this is will increase her mortality significantly will keep having the social work professor involved to see if we can look for more help and family member around to have them in charge to watch a little bit more carefully. Hypertension: Continue losartan 25 mg a day and metoprolol succinate 50 mg daily. Chronic diabetic neuropathy: Has been on gabapentin 600 mg 3 times a day. Will hold off on gabapentin for the next 24 hours. Hypothyroidism: Continue levothyroxine 250 mcg daily. Will continue medication. Hyperlipidemia: Remain on rosuvastatin 40 mg a day with LDL has been below 70. Chronic depression: Has been on Effexor XR 225 mcg daily along with mirtazapine 7.5 mg at bedtime. Gastroparesis with recurrent episode of nausea and vomiting has been on Zofran, Protonix and Reglan. Iron deficiency anemia: Continue iron supplement and IV if needed. Discussion again as a mention easy to control the blood sugar with minimal medication will carry on titrate her diet was possible she might benefit from seeing speech therapy for her expressive aphasia and probably swallowing. Objective - Vital Signs Vital signs: Vital Signs Temp 98.2 F 03/02/24 02:00 Pulse 81 03/02/24 02:00 Resp 18 03/02/24 02:00 BP 130/83 03/02/24 02:00 Pulse Ox 95 03/02/24 02:00 FiO2 Intake & Output 03/01/24 03/01/24 03/02/24 06:59 18:59 06:59 Intake Total 130.939 4005.25 1230 Output Total 675 880 690 Balance -233.172 727.25 540 Weight 99.79 kg 59.3 kg Intake: Intake, IV Titration 079.678 6882.25 750 Amount D5-0.45% NaCl with KCl 100 20Meq/l 1,000 ml @ 100 mls/hr IV .Q10H [facility] Rx#: [id number] D5-0.45% NaCl with KCl 600 20Meq/l 1,000 ml @ 150 mls/hr IV .Q6H40M [facility] Rx# :[id number] D5w with KCl 20 Meq/l 1, 600 000 ml @ 150 mls/hr IV . Q6H40M [facility] Rx#:[id number] Insulin Regular 100 unit 41.828 7.25 In Sodium Chloride 0.9% 100 ml @ 0.05 UNITS/KG/HR 5.039 mls/hr IV .Q20H3M [facility] Rx#:[id number] Sodium Chloride 0.9% 1, 100 750 000 ml @ 100 mls/hr IV . Q10H [facility] Rx#:[id number] Sodium Chloride 0.9% 1, 400 200 000 ml @ 200 mls/hr IV . Q5H [facility] Rx#:[id number] Oral 480 Output: Urine 675 880 690 Other: Voiding Method Indwelling Catheter Indwelling Catheter - Labs CBC & Chem 7: 03/03/24 05:44 03/03/24 05:44 Labs: Abnormal Lab Results - Last 24 Hours (Table) 03/01/24 03/01/24 03/01/24 Range/Units 05:46 05:46 05:46 RBC (3.80-5.40) m/uL Hgb (11.4-16.0) gm/dL Hct (34.0-46.0) % Sodium 133 L (137-145) mmol/L Carbon Dioxide (22-30) mmol/L BUN 19 H (7-17) mg/dL Glucose 333 H (74-99) mg/dL POC Glucose (mg/dL) (70-110) mg/dL Hemoglobin A1c 15.3 H (<=6.0) % Osmolality 297 H (275-295) mOsm/kg Calcium (8.4-10.2) mg/dL Phosphorus (2.5-4.5) mg/dL Urine Osmolality (400-1100) mOsm/kg Ur Random Sodium (40-220) mmol/L 03/01/24 03/01/24 03/01/24 Range/Units 06:58 08:06 08:28 RBC (3.80-5.40) m/uL Hgb (11.4-16.0) gm/dL Hct (34.0-46.0) % Sodium (137-145) mmol/L Carbon Dioxide (22-30) mmol/L BUN (7-17) mg/dL Glucose (74-99) mg/dL POC Glucose (mg/dL) 254 H 145 H 121 H (70-110) mg/dL Hemoglobin A1c (<=6.0) % Osmolality (275-295) mOsm/kg Calcium (8.4-10.2) mg/dL Phosphorus (2.5-4.5) mg/dL Urine Osmolality (400-1100) mOsm/kg Ur Random Sodium (40-220) mmol/L 03/01/24 03/01/24 03/01/24 Range/Units 09:02 09:04 09:41 RBC (3.80-5.40) m/uL Hgb (11.4-16.0) gm/dL Hct (34.0-46.0) % Sodium 134 L (137-145) mmol/L Carbon Dioxide (22-30) mmol/L BUN (7-17) mg/dL Glucose 129 H (74-99) mg/dL POC Glucose (mg/dL) 126 H 139 H (70-110) mg/dL Hemoglobin A1c (<=6.0) % Osmolality (275-295) mOsm/kg Calcium (8.4-10.2) mg/dL Phosphorus (2.5-4.5) mg/dL Urine Osmolality (400-1100) mOsm/kg Ur Random Sodium (40-220) mmol/L 03/01/24 03/01/24 03/01/24 Range/Units 10:04 10:34 11:12 RBC (3.80-5.40) m/uL Hgb (11.4-16.0) gm/dL Hct (34.0-46.0) % Sodium (137-145) mmol/L Carbon Dioxide (22-30) mmol/L BUN (7-17) mg/dL Glucose (74-99) mg/dL POC Glucose (mg/dL) 167 H 166 H 186 H (70-110) mg/dL Hemoglobin A1c (<=6.0) % Osmolality (275-295) mOsm/kg Calcium (8.4-10.2) mg/dL Phosphorus (2.5-4.5) mg/dL Urine Osmolality (400-1100) mOsm/kg Ur Random Sodium (40-220) mmol/L 03/01/24 03/01/24 03/01/24 Range/Units 11:59 14:05 16:02 RBC (3.80-5.40) m/uL Hgb (11.4-16.0) gm/dL Hct (34.0-46.0) % Sodium (137-145) mmol/L Carbon Dioxide (22-30) mmol/L BUN (7-17) mg/dL Glucose (74-99) mg/dL POC Glucose (mg/dL) 209 H 203 H 123 H (70-110) mg/dL Hemoglobin A1c (<=6.0) % Osmolality (275-295) mOsm/kg Calcium (8.4-10.2) mg/dL Phosphorus (2.5-4.5) mg/dL Urine Osmolality (400-1100) mOsm/kg Ur Random Sodium (40-220) mmol/L 03/01/24 03/01/24 03/01/24 Range/Units 16:29 18:22 20:06 RBC (3.80-5.40) m/uL Hgb (11.4-16.0) gm/dL Hct (34.0-46.0) % Sodium 129 L (137-145) mmol/L Carbon Dioxide 20 L (22-30) mmol/L BUN (7-17) mg/dL Glucose 101 H (74-99) mg/dL POC Glucose (mg/dL) 65 L 156 H (70-110) mg/dL Hemoglobin A1c (<=6.0) % Osmolality (275-295) mOsm/kg Calcium (8.4-10.2) mg/dL Phosphorus 1.6 L (2.5-4.5) mg/dL Urine Osmolality (400-1100) mOsm/kg Ur Random Sodium (40-220) mmol/L 03/01/24 03/01/24 03/01/24 Range/Units 20:28 22:07 23:03 RBC (3.80-5.40) m/uL Hgb (11.4-16.0) gm/dL Hct (34.0-46.0) % Sodium 128 L (137-145) mmol/L Carbon Dioxide 17 L (22-30) mmol/L BUN (7-17) mg/dL Glucose 174 H (74-99) mg/dL POC Glucose (mg/dL) 282 H (70-110) mg/dL Hemoglobin A1c (<=6.0) % Osmolality (275-295) mOsm/kg Calcium 8.1 L (8.4-10.2) mg/dL Phosphorus (2.5-4.5) mg/dL Urine Osmolality 201 L (400-1100) mOsm/kg Ur Random Sodium (40-220) mmol/L 03/01/24 03/02/24 03/02/24 Range/Units 23:03 01:52 04:50 RBC 3.70 L (3.80-5.40) m/uL Hgb 11.3 L (11.4-16.0) gm/dL Hct 33.3 L (34.0-46.0) % Sodium (137-145) mmol/L Carbon Dioxide (22-30) mmol/L BUN (7-17) mg/dL Glucose (74-99) mg/dL POC Glucose (mg/dL) 137 H (70-110) mg/dL Hemoglobin A1c (<=6.0) % Osmolality (275-295) mOsm/kg Calcium (8.4-10.2) mg/dL Phosphorus (2.5-4.5) mg/dL Urine Osmolality (400-1100) mOsm/kg Ur Random Sodium <20 L (40-220) mmol/L 03/02/24 03/02/24 Range/Units 04:50 05:54 RBC (3.80-5.40) m/uL Hgb (11.4-16.0) gm/dL Hct (34.0-46.0) % Sodium 131 L (137-145) mmol/L Carbon Dioxide 20 L (22-30) mmol/L BUN (7-17) mg/dL Glucose 129 H (74-99) mg/dL POC Glucose (mg/dL) 128 H (70-110) mg/dL Hemoglobin A1c (<=6.0) % Osmolality (275-295) mOsm/kg Calcium (8.4-10.2) mg/dL Phosphorus (2.5-4.5) mg/dL Urine Osmolality (400-1100) mOsm/kg Ur Random Sodium (40-220) mmol/L
[2024-03-03 08:01] LABS: Glucose,Whole Blood 196 mg/dL (70-110)
--- NOTE | 2024-03-03 10:14 | P.PN ---
Subjective Progress Note Date: 03/03/24 Principal diagnosis: Seizure. Patient is a 64-year-old female with past medical history significant for insulin-dependent diabetes mellitus, diabetic neuropathy, gastroparesis, hy pothyroidism, hypothyroidism, coronary artery disease with previous PCI/stenting, hypertension, hyperlipidemia, DVT, and COPD. Patient has history of uncontrolled type 2 insulin-dependent diabetes. Apparently, a bystander or family member found patient sitting in a chair, confused at her home, and he called EMS. While in route, patient reportedly had a 4-minute seizure witnessed by EMS. Tonic-clonic activity was observed. Terminated with 10 mg of IM Versed. Brain CT without contrast on arrival did not show any acute intracranial hemorrhage, midline shift, or mass effect. There is enceph alomalacia in the right occipital lobe consistent with old infarct. On arrival, glucose was noted to be 1192. Serum bicarb 23. Ketone negative. Patient started on the [facility] protocol in the ER. Patient is currently being evaluated in trauma bay 1. She is alert but confused and cannot provide any useful information. Mostly incoherent mumbling. CBC: WBC count 4.1, hemoglobin 11.2, hematocrit 36.6, platelets 363. CMP: Sodium 113, potassium 5.2, chloride 75, serum bicarb 23, BUN 25, creatinine 1.08, glucose 1192. Lactic 1.7. LFTs unremarkable. Troponin 0.013. Patient's sodium when corrected for hyperglycemia is 130. TSH greater than 100, free T4 low at 0.44. Patient does take Synthroid on outpatient basis, likely noncompliant. No edema. Last recorded temperature 98 F. Heart rate 99. Blood pressure 153/96 mmHg. SpO2 99% on room air. Chest x-ray does not show any focal infiltrates consistent with pneumonia. Urinalysis unremarkable for infection. Ketone negative. Urine toxicology screen negative. Serum alcohol less than 10. Normal saline currently infusing at 200 mL/h. Insulin infusing at 10 units per hour. She will be admitted to the intensive care unit once bed available. Progress note dated March 02, 2024. 64-year-old female seen yesterday in consultation. The patient was admitted with a diagnosis of hyperosmolar nonketotic coma. Her blood glucose was well over thousand. In addition, she had pseudohyponatremia. The patient was admitted to the intensive care unit for further monitoring and management, given the fact that she had a seizure. Currently, she is resting comfortably in the ICU. She is in room 260. She is on room air. She is getting saline at 50 cc an hour. Since being in the intensive care unit, she has had no further seizure activity. Current labs include a white count of 5, hemoglobin 10.3, hematocrit 30.1, and a normal platelet count. Sodium 131, potassium 4, chlorides 103, CO2 20, BUN 10, creatinine 0.75. Blood sugar is 306. Calcium 8.2. Albumin 3.2. Progress note dated March 03, 2024. 64-year-old female seen in the intensive care unit, room 260. She was initially admitted with a diagnosis of pseudohyponatremia, and hyperosmolar nonketotic coma. Currently, the patient is resting comfortably in room 260. She is on room air. She is getting saline at 50 cc an hour. She is stable for transfer out of the intensive care unit, but is currently being evaluated by speech pathology, as it relates to her swallow. Current laboratory includes a white count 7.4, hemoglobin 10.6, hematocrit 32.6, and a normal platelet count. Sodium 132, potassium 4.5, chlorides 107, CO2 20, BUN 9, creatinine 0.88. Glucose is 196. Calcium 8.5, and magnesium 2.1. Objective - Vital Signs Vital signs: Vital Signs Temp 98.1 F 03/03/24 08:00 Pulse 76 03/03/24 08:00 Resp 16 03/03/24 08:00 BP 128/80 03/03/24 08:00 Pulse Ox 99 03/03/24 08:00 FiO2 Intake & Output 03/02/24 03/03/24 03/03/24 18:59 06:59 18:59 Intake Total 600 600 Balance 600 600 Weight 59.3 kg 62.6 kg Intake: Intake, IV Titration 600 400 Amount Sodium Chloride 0.9% 1, 600 000 ml @ 100 mls/hr IV . Q10H [facility] Rx#:[id number] Sodium Chloride 0.9% 1, 400 000 ml @ 50 mls/hr IV . Q20H [facility] Rx#:[id number] Tube Feeding 200 Other: Voiding Method Indwelling Catheter External Catheter External Catheter # Voids 1 3 - Exam No acute distress, oriented 3. Patient currently on room air. Saturation is 99 %. HEENT examination is grossly unremarkable. Mucous membranes are moist. No oral lesions. Neck supple. Full range of motion. No adenopathy thyromegaly or neck vein distention. Cardiovascular examination reveals regular rhythm rate. S1-S2 normal. No S3 or S4. No discernible murmur noted. Lungs reveal clear breath sounds. Breath sounds are equal bilaterally. No adventitious lung sounds including wheezes rhonchi or crackles. Abdomen soft bowel sounds are heard. No masses or tenderness. Extremities are intact. No cyanosis clubbing or edema. Skin is without rash or lesion. Neurologic examination is brief but nonfocal. - Labs CBC & Chem 7: 03/03/24 05:44 03/03/24 05:44 Labs: Abnormal Lab Results - Last 24 Hours (Table) 03/02/24 03/02/24 03/02/24 Range/Units 13:45 13:54 16:33 RBC (3.80-5.40) m/uL Hgb (11.4-16.0) gm/dL Hct (34.0-46.0) % Sodium (137-145) mmol/L Carbon Dioxide (22-30) mmol/L Glucose (74-99) mg/dL POC Glucose (mg/dL) 63 L 53 L 113 H (70-110) mg/dL 03/02/24 03/03/24 03/03/24 Range/Units 22:23 01:31 05:22 RBC (3.80-5.40) m/uL Hgb (11.4-16.0) gm/dL Hct (34.0-46.0) % Sodium (137-145) mmol/L Carbon Dioxide (22-30) mmol/L Glucose (74-99) mg/dL POC Glucose (mg/dL) 149 H 183 H 114 H (70-110) mg/dL 03/03/24 03/03/24 03/03/24 Range/Units 05:44 05:44 07:59 RBC 3.55 L (3.80-5.40) m/uL Hgb 10.6 L (11.4-16.0) gm/dL Hct 32.6 L (34.0-46.0) % Sodium 132 L (137-145) mmol/L Carbon Dioxide 20 L (22-30) mmol/L Glucose 112 H (74-99) mg/dL POC Glucose (mg/dL) 196 H (70-110) mg/dL Assessment and Plan Assessment: Hyperosmolar hyperglycemic nonketotic state, suspect secondary to medication noncompliance. Severe hypothyroidism, TSH greater than 100, free T4 0.44; also likely secondary to medication noncompliance. Hyponatremia, sodium when corrected for severe hyperglycemia, 130 mmol/L. Witnessed seizure activity in-route to hospital. Altered mental status, suspect secondary to acute metabolic encephalopathy. History of CVA, per brain CT which did not show any acute intracranial hemorrhage, midline shift, or mass effect. Insulin-dependent type 2 diabetes mellitus. History of diabetic neuropathy. History of gastroparesis. History of hypothyroidism. History of hyperlipidemia. Hypertension. History of coronary artery disease, with previous PCI/stenting. History of DVT. History of COPD, inactive. Plan: Plan dated March 02, 2024. The patient is seen in room 260. The patient is on room air. She is getting saline at 50 cc an hour. Labs, x-rays, and all medications are reviewed. The patient is doing much better, metabolically, although her mental status is still poor. The patient is stable to be transferred out of the intensive care unit, to the general medical floor. We will continue to follow. Prognosis is guarded. Plan dated March 03, 2024. The patient is seen in room 260. She is on room air. She is getting saline at 50 cc an hour. Labs, x-rays, and medications are reviewed. The patient had an uneventful night. Her respiratory status is stable. Her hemodynamic and ca rdiovascular status is stable. From my perspective, the patient could be discharged out of the intensive care unit, to the general medical floor. She is counseled about the importance of properly managing her diabetes. Time with Patient: Less than 30
--- NOTE | 2024-03-03 10:41 | P.PN ---
Subjective patient is seen for follow-up for pseudohyponatremia associated with severe hyperglycemia. Normal saline running at 50 mL an hour. serum glucose at 125-196 mg/dL. Serum sodium was 132 today. Mentation has improved and appears to be at baseline. Objective - Vital Signs Vital signs: Vital Signs Temp 98.1 F 03/03/24 08:00 Pulse 76 03/03/24 08:00 Resp 16 03/03/24 08:00 BP 128/80 03/03/24 08:00 Pulse Ox 99 03/03/24 08:00 FiO2 Intake & Output 03/02/24 03/03/24 03/03/24 18:59 06:59 18:59 Intake Total 600 600 Balance 600 600 Weight 59.3 kg 62.6 kg Intake: Intake, IV Titration 600 400 Amount Sodium Chloride 0.9% 1, 600 000 ml @ 100 mls/hr IV . Q10H [facility] Rx#:[id number] Sodium Chloride 0.9% 1, 400 000 ml @ 50 mls/hr IV . Q20H [facility] Rx#:[id number] Tube Feeding 200 Other: Voiding Method Indwelling Catheter External Catheter External Catheter # Voids 1 3 - Exam patient is awake, comfortable, no acute distress. She is confused on and off Examination of the heart S1 and S2 Examination of the lungs bilateral breath sounds are heard Abdomen is soft nontender Examination of lower extremities shows no significant edema. Patient is moving all 4 extremities. - Labs CBC & Chem 7: 03/03/24 05:44 03/03/24 05:44 Labs: Abnormal Lab Results - Last 24 Hours (Table) 03/02/24 03/02/24 03/02/24 Range/Units 13:45 13:54 16:33 RBC (3.80-5.40) m/uL Hgb (11.4-16.0) gm/dL Hct (34.0-46.0) % Sodium (137-145) mmol/L Carbon Dioxide (22-30) mmol/L Glucose (74-99) mg/dL POC Glucose (mg/dL) 63 L 53 L 113 H (70-110) mg/dL 03/02/24 03/03/24 03/03/24 Range/Units 22:23 01:31 05:22 RBC (3.80-5.40) m/uL Hgb (11.4-16.0) gm/dL Hct (34.0-46.0) % Sodium (137-145) mmol/L Carbon Dioxide (22-30) mmol/L Glucose (74-99) mg/dL POC Glucose (mg/dL) 149 H 183 H 114 H (70-110) mg/dL 03/03/24 03/03/24 03/03/24 Range/Units 05:44 05:44 07:59 RBC 3.55 L (3.80-5.40) m/uL Hgb 10.6 L (11.4-16.0) gm/dL Hct 32.6 L (34.0-46.0) % Sodium 132 L (137-145) mmol/L Carbon Dioxide 20 L (22-30) mmol/L Glucose 112 H (74-99) mg/dL POC Glucose (mg/dL) 196 H (70-110) mg/dL Assessment and Plan Assessment: 1. Hyperosmolar nonketotic diabetic state, S/P insulin drip 2. Pseudohyponatremia associated with significantly elevated blood sugar of 1192. Corrected sodium for the hyperglycemia was 130 if correction factor of 1.6 is used. 3. Altered mentation secondary to hyperosmolar non-ketotic diabetic state much improved 4. Severe hypothyroidism with TSH more than 100, T4 at 0.4 Plan: continue to encourage increased oral intake Discontinue IV fluids Repeat labs in a.m. Continue supplementation with Synthroid
[2024-03-03 12:02] LABS: Glucose,Whole Blood 192 mg/dL (70-110)
[2024-03-03] MEDS: INSULIN ASPART (NovoLOG) 100 UNIT/ML VIAL SQ SCH (12:09)
[2024-03-03 16:05] LABS: Glucose,Whole Blood 134 mg/dL (70-110)
[2024-03-03 20:49] LABS: Glucose,Whole Blood 98 mg/dL (70-110)
[2024-03-03] MEDS: ACETAMINOPHEN TAB 325 MG TAB PO PRN (21:29)
--- NOTE | 2024-03-03 22:23 | P.PN ---
Subjective Progress Note Date: 03/03/24 History of present illness: 64-year-old with active medical history of insulin-dependent diabetes, coronary artery disease, history of for stent, chronic history of arthralgia, chronic neuropathy, previous history of CVA and TIA, coagulopathy with history of DVT, history of rheumatoid arthritis, history of hypertension, hyperlipidemia, recurrent UTI with combination of ESBL and MRSA in the past who also has several admission to the emergency department with chest pain, UTI, severe nonketotic hyperglycemia with history of DKA as well mostly secondary to noncompliance to medication and the claim of nonfunctioning insulin pump who also had recurrent history of encephalopathy and chronic patient challenging circumstances mostly consistent with noncompliance to medication the patient also seen endocrinology regular basis has been on and off insulin pump repeatedly not a clear anymore whether she is on it or not with the last 3 admission to the hospital her insulin pump was stopped completely and placed on short and long-acting insulin which apparently keep being changed repeatedly by her credit front office developer. Patient found by family member sitting on the stairs confused at home EMS was called to the scene and while she is on arrival she had 4-minute seizure like activity with tonic clonic was observed was giving 10 mg of Versed to terminate her seizure at the time of arrival to the emergency department her blood sugar was 1192 with lactic acid 1.7. Serum bicarbonate was 23 with sodium 113 potassium 5.2 and chloride 75 bun 25 creatinine 1.08. CAT scan of the brain was performed without contrast did not show any intracranial hemorrhage or midline shift or mass effect the patient was incoherent at the time and nonverbal was quite bit confused. DKA protocol was started patient started on insulin drip along with IV hydration admitted to the intensive care unit loaded with benzodiazepine to help with seizure activity and admitted with above problem. 03/02/2024: She is continue to struggle quite a bit with her expressive aphasia which look like more than seizure possibility of stroke is a bit higher and despite the fact the patient still recovering from her severe encephalopathy which is can be part of the problem at this point. Will consult speech therapy while she is in the ICU the meanwhile her blood sugar has been much better and the new adjusted regime of her diabetic management between doing NovoLog every 4 hours and having 4 units of NovoLog AC meals 3 times a day and having to be Levemir 10 units in the morning with Tradjenta 5 mg a day skipping her blood sugar under better control. Patient is not having any ketone at this point she is not severely hyperglycemic and her hyponatremia has improved with osmolality has been better. She is seen neurology today before the idea especially with her seizure and her mental status most likely the severe hyperglycemia and hyponatremia what provoked the seizure in the first place that with her expressive aphasia and right-sided weakness not quite sure if she had any extension of her stroke from before not time only can tell further testing might be needed. Her EEG from day before came back quite bit abnormal but mostly due to moderate encephalopathy with no focal lateralization or epileptiform activity seen. 03/03/2024: Blood sugar has improved significantly and current management she has no episode of hypoglycemia and not hyper readings still under 200. Electrolyte imbalance with sodium still at 132, normal chloride with normal kidney function. Also patient does not have any seizure activity, we we will continue to manage her blood sugar with short and long-acting insulin with titration, still on Tradjenta 5 mg a day. She is able to be transfer out of the ICU. Mental status has improved significantly her speech has been much better able to express herself she will be evaluated by speech therapy will be evaluated for swallow as well. REVIEW OF SYSTEMS: CONSTITUTIONAL: Well-developed still incoherent drowsy and sluggish not answering question appropriately does not look in any distress. EYES: No icterus sclerae, no conjunctivitis. EARS, NOSE, MOUTH, THROAT, and FACE: No sore throat, lymphadenopathy, carotid bruits or deformity. RESPIRATORY: No SOB cough or wheezes. CARDIOVASCULAR: No CP, Palpitation, PND, Orthopnea, or angina. GASTROINTESTINAL: No Abd pain, Nausea or vomiting, no Diarrhea or constipation, No GI Bleed, no distention or masses. GENITOURINARY: Mostly incontinence no kidney stone or bloody urine. INTEGUMENT/BREAST: Generalized muscle and joint pain. HEMATOLOGIC/LYMPHATIC: Negative for bleed or purpura. MUSCULOSKELTAL: Myalgia and arthralgia with lower back pain. NEURLOGICAL: Had seizure activity with incoherence significant cephalopathy and not been able to answer any question appropriately at this point. BEHAVIORAL/PSYCH: Negative. ENDOCRINE: Negative. PHYSICAL EXAMINATION: General Appearance: She is opening her eyes not able to answer yet does not look in any respiratory distress. Neck HEENT: Supple, no lymphadenopathy, no thyroid enlargement, no carotid bruits. Lungs: Clear to auscultation without crackles or wheezes no rhonchi, no deformity. Chest Wall: Normal expansion with slight tenderness, slightly at resuscitation. And no deformity was found on exam, no costochondral pain or discomfort. Heart: Regular rate and rhythm, S1, S2 normal, no murmur, rub or gallop. Back: Symmetric, no curvature, ROM normal, no CVA tenderness. Abdomen: Soft, non-tender, bowel sounds active all four quadrants, no masses, no organomegaly. Extremities: Extremities normal, atraumatic, no cyanosis or edema. Pulses: 2+ and symmetric. Skin: Skin color, texture, tugor normal, no rashes or lesions. Neurologic: Alert significantly confused cranial nerves II through XII intact, generalized weakness bilaterally, not been able to do gait exam. ASSESSMENT AND PLAN: _Severe hyperosmolar hyperglycemia with nonketotic hyperglycemia blood sugars much better she is off insulin drip and back on NovoLog 4 units AC meals plus sliding scales coverage with Levemir 10 units a day and back on Tradjenta. Despite the blood sugar has been better her mental status and confusion has not improved yet so far. _Severe hyponatremia most likely pseudohyponatremia secondary to severe hyperglycemia sodium is corrected up to 132 has been much better so far. _Witnessed seizure: No further seizure activity and this was secondary to hyperglycemia and hyponatremia her EEG is negative for any epileptiform abnormality but mostly consistent with encephalopathy she is remain on Keppra but will be stopped probably in the next day or 2. _? Of stroke: Patient still having significant expressive aphasia and weakness in the right side slightly but worsening than her baseline at some point probably running another MRI of the brain would be quite bit helpful patient is not stable for it yet. _Severe dysphagia and aphasia: Will be evaluated by speech and she is going to do dynamic swallow study and probably barium swallow. Altered mental status: Mostly from severe hyperglycemia and hyponatremia with no seizure activity continue to correct recurrent problem and hopefully her symptoms will improve. _Severe hypothyroidism: Again most likely from noncompliant to medication 100 mcg of levothyroxine can be given IV and switch patient to oral soon as she is able to swallow. Multiple coronary artery disease last angiogram was in June 06, 2023 with mild LAD mild circumflex completely blockage in the RCA. The patient will be on medical management only. COPD: She is on her updraft treatment does not require any oxygen she is on steroids is inhaler as well. Mild PAD has been on Pletal 100 mg twice a day. Type 2 diabetes: Again seen how easy is to control her blood sugar with smaller dose of NovoLog and Levemir with Tradjenta I see her compliance is technically the main problem here and her education how to care for herself and give herself insulin is probably part of the problem is for the few time of seeing her in the hospital so far I have not seen any family member comes around to talk to or be over concerned I still believe she is the only person who is doing this on her own sometimes find doing any of her medication including her insulin is not necessary for her survival whatsoever which is part of the problem might she keep coming back with either severe hypo or hyperglycemia creating more problem sadly this is will increase her mortality significantly will keep having the social work lecturer involved to see if we can look for more help and family member around to have them in charge to watch a little bit more ca refully. Hypertension: Continue losartan 25 mg a day and metoprolol succinate 50 mg daily. Chronic diabetic neuropathy: Has been on gabapentin 600 mg 3 times a day. Will hold off on gabapentin for the next 24 hours. Hypothyroidism: Continue levothyroxine 250 mcg daily. Will continue medica tion. Hyperlipidemia: Remain on rosuvastatin 40 mg a day with LDL has been below 70. Chronic depression: Has been on Effexor XR 225 mcg daily along with mirtazapine 7.5 mg at bedtime. Gastroparesis with recurrent episode of nausea and vomiting has been on Zofran, Protonix and Reglan. Iron deficiency anemia: Continue iron supplement and IV if needed. Discussion patient will be transferred out of ICU, she is improving significantly her blood sugar has been much better. Her physical activity is very limited to bedrest will consult PT OT and prepare patient psychologically probably to go to shelter rehab. Objective - Vital Signs Vital signs: Vital Signs Temp 98.4 F 03/03/24 02:00 Pulse 79 03/03/24 02:00 Resp 16 03/03/24 02:00 BP 152/82 03/03/24 02:00 Pulse Ox 99 03/03/24 02:00 FiO2 Intake & Output 03/02/24 03/02/24 03/03/24 06:59 18:59 06:59 Intake Total 1230 600 600 Output Total 690 Balance 540 600 600 Weight 59.3 kg 59.3 kg 62.6 kg Intake: Intake, IV Titration 750 600 400 Amount Sodium Chloride 0.9% 1, 750 600 000 ml @ 100 mls/hr IV . Q10H [facility] Rx#:[id number] Sodium Chloride 0.9% 1, 400 000 ml @ 50 mls/hr IV . Q20H [facility] Rx#:[id number] Oral 480 Tube Feeding 200 Output: Urine 690 Other: Voiding Method Indwelling Catheter Indwelling Catheter External Catheter # Voids 1 3 - Labs CBC & Chem 7: 03/03/24 05:44 03/03/24 05:44 Labs: Abnormal Lab Results - Last 24 Hours (Table) 03/02/24 03/02/24 03/02/24 Range/Units 04:50 06:06 06:06 RBC 3.36 L (3.80-5.40) m/uL Hgb 10.3 L (11.4-16.0) gm/dL Hct 30.1 L (34.0-46.0) % Sodium 131 L (137-145) mmol/L Carbon Dioxide 20 L (22-30) mmol/L Glucose 125 H (74-99) mg/dL POC Glucose (mg/dL) (70-110) mg/dL Hemoglobin A1c 15.1 H (<=6.0) % Calcium 8.2 L (8.4-10.2) mg/dL Total Protein 5.7 L (6.3-8.2) g/dL Albumin 3.2 L (3.5-5.0) g/dL 03/02/24 03/02/24 03/02/24 Range/Units 09:42 13:45 13:54 RBC (3.80-5.40) m/uL Hgb (11.4-16.0) gm/dL Hct (34.0-46.0) % Sodium (137-145) mmol/L Carbon Dioxide (22-30) mmol/L Glucose (74-99) mg/dL POC Glucose (mg/dL) 306 H 63 L 53 L (70-110) mg/dL Hemoglobin A1c (<=6.0) % Calcium (8.4-10.2) mg/dL Total Protein (6.3-8.2) g/dL Albumin (3.5-5.0) g/dL 03/02/24 03/02/24 03/03/24 Range/Units 16:33 22:23 01:31 RBC (3.80-5.40) m/uL Hgb (11.4-16.0) gm/dL Hct (34.0-46.0) % Sodium (137-145) mmol/L Carbon Dioxide (22-30) mmol/L Glucose (74-99) mg/dL POC Glucose (mg/dL) 113 H 149 H 183 H (70-110) mg/dL Hemoglobin A1c (<=6.0) % Calcium (8.4-10.2) mg/dL Total Protein (6.3-8.2) g/dL Albumin (3.5-5.0) g/dL 03/03/24 03/03/24 03/03/24 Range/Units 05:22 05:44 05:44 RBC 3.55 L (3.80-5.40) m/uL Hgb 10.6 L (11.4-16.0) gm/dL Hct 32.6 L (34.0-46.0) % Sodium 132 L (137-145) mmol/L Carbon Dioxide 20 L (22-30) mmol/L Glucose 112 H (74-99) mg/dL POC Glucose (mg/dL) 114 H (70-110) mg/dL Hemoglobin A1c (<=6.0) % Calcium (8.4-10.2) mg/dL Total Protein (6.3-8.2) g/dL Albumin (3.5-5.0) g/dL
[2024-03-03 23:35] LABS: Glucose,Whole Blood 122 mg/dL (70-110)
[2024-03-04 04:08] LABS: Glucose,Whole Blood 183 mg/dL (70-110)
[2024-03-04 08:13] LABS: Glucose,Whole Blood 230 mg/dL (70-110)
[2024-03-04 12:10] LABS: Glucose,Whole Blood 261 mg/dL (70-110)
--- NOTE | 2024-03-04 12:12 | P.PN ---
Subjective patient is seen for follow-up for pseudohyponatremia associated with severe hyperglycemia. off of IV fluids. Tolerating oral intake. Mentation has improved and appears to be at baseline. Objective - Vital Signs Vital signs: Vital Signs Temp 98.0 F 03/04/24 07:12 Pulse 78 03/04/24 07:12 Resp 16 03/04/24 07:12 BP 134/81 03/04/24 07:12 Pulse Ox 98 03/04/24 07:12 FiO2 Intake & Output 03/03/24 03/04/24 03/04/24 18:59 06:59 18:59 Intake Total 550 590 Output Total 500 350 Balance 50 240 Intake: Intake, IV Titration 150 Amount Sodium Chloride 0.9% 1, 150 000 ml @ 50 mls/hr IV . Q20H [facility] Rx#:[id number] Oral 400 590 Output: Urine 500 350 Other: Voiding Method External Catheter External Catheter External Catheter # Voids 1 - Exam patient is awake, comfortable, no acute distress. She is confused on and off Examination of the heart S1 and S2 Examination of the lungs bilateral breath sounds are heard Abdomen is soft nontender Examination of lower extremities shows no significant edema. Patient is moving all 4 extremities. - Labs CBC & Chem 7: 03/03/24 05:44 03/03/24 05:44 Labs: Abnormal Lab Results - Last 24 Hours (Table) 03/03/24 03/03/24 03/04/24 Range/Units 16:03 23:34 04:07 POC Glucose (mg/dL) 134 H 122 H 183 H (70-110) mg/dL 03/04/24 Range/Units 08:10 POC Glucose (mg/dL) 230 H (70-110) mg/dL Assessment and Plan Assessment: 1. Hyperosmolar nonketotic diabetic state, S/P insulin drip 2. Pseudohyponatremia associated with significantly elevated blood sugar of 1192. Corrected sodium for the hyperglycemia was 130 if correction factor of 1.6 is used. 3. Altered mentation secondary to hyperosmolar non-ketotic diabetic state much improved 4. Severe hypothyroidism with TSH more than 100, T4 at 0.4 Plan: continue to encourage increased oral intake Repeat labs in a.m. Continue supplementation with Synthroid
--- NOTE | 2024-03-04 12:15 | P.PN ---
Subjective Progress Note Date: 03/04/24 Principal diagnosis: Seizure. Patient is a 64-year-old female with past medical history significant for insulin-dependent diabetes mellitus, diabetic neuropathy, gastroparesis, hy pothyroidism, hypothyroidism, coronary artery disease with previous PCI/stenting, hypertension, hyperlipidemia, DVT, and COPD. Patient has history of uncontrolled type 2 insulin-dependent diabetes. Apparently, a bystander or family member found patient sitting in a chair, confused at her home, and he called EMS. While in route, patient reportedly had a 4-minute seizure witnessed by EMS. Tonic-clonic activity was observed. Terminated with 10 mg of IM Versed. Brain CT without contrast on arrival did not show any acute intracranial hemorrhage, midline shift, or mass effect. There is enceph alomalacia in the right occipital lobe consistent with old infarct. On arrival, glucose was noted to be 1192. Serum bicarb 23. Ketone negative. Patient started on the [facility] protocol in the ER. Patient is currently being evaluated in trauma bay 1. She is alert but confused and cannot provide any useful information. Mostly incoherent mumbling. CBC: WBC count 4.1, hemoglobin 11.2, hematocrit 36.6, platelets 363. CMP: Sodium 113, potassium 5.2, chloride 75, serum bicarb 23, BUN 25, creatinine 1.08, glucose 1192. Lactic 1.7. LFTs unremarkable. Troponin 0.013. Patient's sodium when corrected for hyperglycemia is 130. TSH greater than 100, free T4 low at 0.44. Patient does take Synthroid on outpatient basis, likely noncompliant. No edema. Last recorded temperature 98 F. Heart rate 99. Blood pressure 153/96 mmHg. SpO2 99% on room air. Chest x-ray does not show any focal infiltrates consistent with pneumonia. Urinalysis unremarkable for infection. Ketone negative. Urine toxicology screen negative. Serum alcohol less than 10. Normal saline currently infusing at 200 mL/h. Insulin infusing at 10 units per hour. She will be admitted to the intensive care unit once bed available. Progress note dated March 02, 2024. 64-year-old female seen yesterday in consultation. The patient was admitted with a diagnosis of hyperosmolar nonketotic coma. Her blood glucose was well over thousand. In addition, she had pseudohyponatremia. The patient was admitted to the intensive care unit for further monitoring and management, given the fact that she had a seizure. Currently, she is resting comfortably in the ICU. She is in room 260. She is on room air. She is getting saline at 50 cc an hour. Since being in the intensive care unit, she has had no further seizure activity. Current labs include a white count of 5, hemoglobin 10.3, hematocrit 30.1, and a normal platelet count. Sodium 131, potassium 4, chlorides 103, CO2 20, BUN 10, creatinine 0.75. Blood sugar is 306. Calcium 8.2. Albumin 3.2. Progress note dated March 03, 2024. 64-year-old female seen in the intensive care unit, room 260. She was initially admitted with a diagnosis of pseudohyponatremia, and hyperosmolar nonketotic coma. Currently, the patient is resting comfortably in room 260. She is on room air. She is getting saline at 50 cc an hour. She is stable for transfer out of the intensive care unit, but is currently being evaluated by speech pathology, as it relates to her swallow. Current laboratory includes a white count 7.4, hemoglobin 10.6, hematocrit 32.6, and a normal platelet count. Sodium 132, potassium 4.5, chlorides 107, CO2 20, BUN 9, creatinine 0.88. Glucose is 196. Calcium 8.5, and magnesium 2.1. Progress note dated March 04, 2024. The patient is seen today in room 521. The patient is on room air. Saturations are 99%. The patient is not receiving any IV fluids. The patient was admitted with a diagnosis of hyperosmolar nonketotic coma, and seizure disorder. The patient was in the intensive care unit for a few days. She is now under general medical floor. She appears in no distress. No new labs today other than a glucose of 261. Objective - Vital Signs Vital signs: Vital Signs Temp 98.0 F 03/04/24 07:12 Pulse 78 03/04/24 07:12 Resp 16 03/04/24 07:12 BP 134/81 03/04/24 07:12 Pulse Ox 98 03/04/24 07:12 FiO2 Intake & Output 03/03/24 03/04/24 03/04/24 18:59 06:59 18:59 Intake Total 550 590 Output Total 500 350 Balance 50 240 Intake: Intake, IV Titration 150 Amount Sodium Chloride 0.9% 1, 150 000 ml @ 50 mls/hr IV . Q20H [facility] Rx#:[id number] Oral 400 590 Output: Urine 500 350 Other: Voiding Method External Catheter External Catheter External Catheter # Voids 1 - Exam No acute distress, oriented 3. Patient currently on room air. Saturation is 99 %. HEENT examination is grossly unremarkable. Mucous membranes are moist. No oral lesions. Neck supple. Full range of motion. No adenopathy thyromegaly or neck vein distention. Cardiovascular examination reveals regular rhythm rate. S1-S2 normal. No S3 or S4. No discernible murmur noted. Lungs reveal clear breath sounds. Breath sounds are equal bilaterally. No adventitious lung sounds including wheezes rhonchi or crackles. Abdomen soft bowel sounds are heard. No masses or tenderness. Extremities are intact. No cyanosis clubbing or edema. Skin is without rash or lesion. Neurologic examination is brief but nonfocal. - Labs CBC & Chem 7: 03/03/24 05:44 03/03/24 05:44 Labs: Abnormal Lab Results - Last 24 Hours (Table) 03/03/24 03/03/24 03/04/24 Range/Units 16:03 23:34 04:07 POC Glucose (mg/dL) 134 H 122 H 183 H (70-110) mg/dL 03/04/24 03/04/24 Range/Units 08:10 12:08 POC Glucose (mg/dL) 230 H 261 H (70-110) mg/dL Assessment and Plan Assessment: Hyperosmolar hyperglycemic nonketotic state, suspect secondary to medication noncompliance. Severe hypothyroidism, TSH greater than 100, free T4 0.44; also likely secondary to medication noncompliance. Pseudohyponatremia, secondary to hyperglycemia. Witnessed seizure activity in-route to hospital. Altered mental status, suspect secondary to acute metabolic encephalopathy. History of CVA, per brain CT which did not show any acute intracranial hemorrhage, midline shift, or mass effect. Insulin-dependent type 2 diabetes mellitus. History of diabetic neuropathy. History of gastroparesis. History of hypothyroidism. History of hyperlipidemia. Hypertension. History of coronary artery disease, with previous PCI/stenting. History of DVT. History of COPD, inactive. Plan: Plan dated March 02, 2024. The patient is seen in room 260. The patient is on room air. She is getting saline at 50 cc an hour. Labs, x-rays, and all medications are reviewed. The patient is doing much better, metabolically, although her mental status is still poor. The patient is stable to be transferred out of the intensive care unit, to the general medical floor. We will continue to follow. Prognosis is guarded. Plan dated March 03, 2024. The patient is seen in room 260. She is on room air. She is getting saline at 50 cc an hour. Labs, x-rays, and medications are reviewed. The patient had an uneventful night. Her respiratory status is stable. Her hemodynamic and cardiovascular status is stable. From my perspective, the patient could be discharged out of the intensive care unit, to the general medical floor. She is counseled about the importance of properly managing her diabetes. Plan dated March 04, 2024. The patient is seen in room 521. She is on room air. Saturations are 99%. Labs, x-rays, and medications are reviewed. The patient has had no further seizures. Her blood sugars are much better controlled. Labs, x-rays, and medications are reviewed. We will continue to follow. Prognosis is guarded. Time with Patient: Less than 30
[2024-03-04 14:15] VITALS: BMI 20.3
--- NOTE | 2024-03-04 15:11 | P.PN ---
Subjective Progress Note Date: 03/03/24 Patient was seen for a follow-up. Patient is laying comfortably in the bed. Patient states "I am doing okay". Patient appears excited stating her sister has got . When I asked when it was, she says "6 years ago". Her expressive aphasia appears to have improved. No further seizures have been reported. Objective - Vital Signs Vital signs: Vital Signs Temp 98.5 F 03/03/24 14:00 Pulse 88 03/03/24 14:00 Resp 16 03/03/24 14:00 BP 136/82 03/03/24 14:00 Pulse Ox 99 03/03/24 14:00 FiO2 Intake & Output 03/02/24 03/03/24 03/03/24 18:59 06:59 18:59 Intake Total 600 600 Balance 600 600 Weight 59.3 kg 62.6 kg Intake: Intake, IV Titration 600 400 Amount Sodium Chloride 0.9% 1, 600 000 ml @ 100 mls/hr IV . Q10H [facility] Rx#:[id number] Sodium Chloride 0.9% 1, 400 000 ml @ 50 mls/hr IV . Q20H [facility] Rx#:[id number] Tube Feeding 200 Other: Voiding Method Indwelling Catheter External Catheter External Catheter # Voids 1 3 - Exam Patient states "I am doing okay". Patient appears excited stating her sister has got . When I asked when it was, she says "6 years ago". Her expressive aphasia appears to have improved. Patient knows it is February and the year is 2023. She knows that she is in [facility] imported her on in [place]. She knows name of the current president Mr. Cleaning. Her right eye is slightly bigger than the left. - Labs CBC & Chem 7: 03/03/24 05:44 03/03/24 05:44 Labs: Abnormal Lab Results - Last 24 Hours (Table) 03/02/24 03/03/24 03/03/24 Range/Units 22:23 01:31 05:22 RBC (3.80-5.40) m/uL Hgb (11.4-16.0) gm/dL Hct (34.0-46.0) % Sodium (137-145) mmol/L Carbon Dioxide (22-30) mmol/L Glucose (74-99) mg/dL POC Glucose (mg/dL) 149 H 183 H 114 H (70-110) mg/dL 03/03/24 03/03/24 03/03/24 Range/Units 05:44 05:44 07:59 RBC 3.55 L (3.80-5.40) m/uL Hgb 10.6 L (11.4-16.0) gm/dL Hct 32.6 L (34.0-46.0) % Sodium 132 L (137-145) mmol/L Carbon Dioxide 20 L (22-30) mmol/L Glucose 112 H (74-99) mg/dL POC Glucose (mg/dL) 196 H (70-110) mg/dL 03/03/24 03/03/24 Range/Units 12:01 16:03 RBC (3.80-5.40) m/uL Hgb (11.4-16.0) gm/dL Hct (34.0-46.0) % Sodium (137-145) mmol/L Carbon Dioxide (22-30) mmol/L Glucose (74-99) mg/dL POC Glucose (mg/dL) 192 H 134 H (70-110) mg/dL Assessment and Plan Assessment: * Seizure, likely provoked due to acute metabolic encephalopathy. Reasons multifactorial as below. * Hyperosmolar nonketotic diabetic state, with highly elevated blood glucose 1192. * Hyponatremia with sodium 113 * Hypothyroidism with TSH > 100 * History of CVA with residual expressive aphasia and right-sided weakness * Diabetes, poorly controlled * Hypothyroidism * Patient admits to smoking. Plan: * Patient's seizure was likely provoked due to acute metabolic encephalopathy. * EEG was performed, which revealed background slowing, suggestive of mild to moderate encephalopathy. No epileptiform activity was seen. * No indication for antiepileptic medication, as seizure was likely provoked due to above factors. * Treatment of hyperglycemia, hyponatremia, and hypothyroidism as per IM and critical care. * Patient's speech and language functions have improved, likely due to improvement in the metabolic encephalopathy. * Neurologically, no other workup indicated.
[2024-03-04 16:10] LABS: Glucose,Whole Blood 148 mg/dL (70-110)
[2024-03-04 20:10] LABS: Glucose,Whole Blood 91 mg/dL (70-110)
[2024-03-05 00:04] LABS: Glucose,Whole Blood 85 mg/dL (70-110)
[2024-03-05 04:16] LABS: Glucose,Whole Blood 173 mg/dL (70-110)
--- NOTE | 2024-03-05 07:42 | P.PN ---
Subjective Progress Note Date: 03/04/24 History of present illness: 64-year-old with active medical history of insulin-dependent diabetes, coronary artery disease, history of for stent, chronic history of arthralgia, chronic neuropathy, previous history of CVA and TIA, coagulopathy with history of DVT, history of rheumatoid arthritis, history of hypertension, hyperlipidemia, recurrent UTI with combination of ESBL and MRSA in the past who also has several admission to the emergency department with chest pain, UTI, severe nonketotic hyperglycemia with history of DKA as well mostly secondary to noncompliance to medication and the claim of nonfunctioning insulin pump who also had recurrent history of encephalopathy and chronic patient challenging circumstances mostly consistent with noncompliance to medication the patient also seen endocrinology regular basis has been on and off insulin pump repeatedly not a clear anymore whether she is on it or not with the last 3 admission to the hospital her insulin pump was stopped completely and placed on short and long-acting insulin which apparently keep being changed repeatedly by her client technologies specialist. Patient found by family member sitting on the stairs confused at home EMS was called to the scene and while she is on arrival she had 4-minute seizure like activity with tonic clonic was observed was giving 10 mg of Versed to terminate her seizure at the time of arrival to the emergency department her blood sugar was 1192 with lactic acid 1.7. Serum bicarbonate was 23 with sodium 113 potassium 5.2 and chloride 75 bun 25 creatinine 1.08. CAT scan of the brain was performed without contrast did not show any intracranial hemorrhage or midline shift or mass effect the patient was incoherent at the time and nonverbal was quite bit confused. DKA protocol was started patient started on insulin drip along with IV hydration admitted to the intensive care unit loaded with benzodiazepine to help with seizure activity and admitted with above problem. 03/02/2024: She is continue to struggle quite a bit with her expressive aphasia which look like more than seizure possibility of stroke is a bit higher and despite the fact the patient still recovering from her severe encephalopathy which is can be part of the problem at this point. Will consult speech therapy while she is in the ICU the meanwhile her blood sugar has been much better and the new adjusted regime of her diabetic management between doing NovoLog every 4 hours and having 4 units of NovoLog AC meals 3 times a day and having to be Levemir 10 units in the morning with Tradjenta 5 mg a day skipping her blood sugar under better control. Patient is not having any ketone at this point she is not severely hyperglycemic and her hyponatremia has improved with osmolality has been better. She is seen neurology today before the idea especially with her seizure and her mental status most likely the severe hyperglycemia and hyponatremia what provoked the seizure in the first place that with her expressive aphasia and right-sided weakness not quite sure if she had any extension of her stroke from before not time only can tell further testing might be needed. Her EEG from day before came back quite bit abnormal but mostly due to moderate encephalopathy with no focal lateralization or epileptiform activity seen. 03/03/2024: Blood sugar has improved significantly and current management she has no episode of hypoglycemia and not hyper readings still under 200. Electrolyte imbalance with sodium still at 132, normal chloride with normal kidney function. Also patient does not have any seizure activity, we we will continue to manage her blood sugar with short and long-acting insulin with titration, still on Tradjenta 5 mg a day. She is able to be transfer out of the ICU. Mental status has improved significantly her speech has been much better able to express herself she will be evaluated by speech therapy will be evaluated for swallow as well. 03/04/2024: She is doing much better out of the ICU her blood sugar has been running in the low 100 her pseudo hyponatremia has improved significantly sodium in the 130 level. Still doing some physical therapy not quite sure if patient is able to go home or she needs subacute rehab at this point encourage oral intake the adjustment of her short and long-acting insulin and minimize her diabetic management medication will seem to control her blood sugar quite well at this point she will be discharged eventually on NovoLog 5 units AC meals plus sliding scales with Levemir 10 units a day beside the Tradjenta 5 mg a day with so far has kept her blood sugar under control last few days. Mobility russo not quite sure if patient would benefit from going to rehab or not any location probably patient is getting ready to be discharged tomorrow. REVIEW OF SYSTEMS: CONSTITUTIONAL: Well-developed still incoherent drowsy and sluggish not answering question appropriately does not look in any distress. EYES: No icterus sclerae, no conjunctivitis. EARS, NOSE, MOUTH, THROAT, and FACE: No sore throat, lymphadenopathy, carotid bruits or deformity. RESPIRATORY: No SOB cough or wheezes. CARDIOVASCULAR: No CP, Palpitation, PND, Orthopnea, or angina. GASTROINTESTINAL: No Abd pain, Nausea or vomiting, no Diarrhea or constipation, No GI Bleed, no distention or masses. GENITOURINARY: Mostly incontinence no kidney stone or bloody urine. INTEGUMENT/BREAST: Generalized muscle and joint pain. HEMATOLOGIC/LYMPHATIC: Negative for bleed or purpura. MUSCULOSKELTAL: Myalgia and arthralgia with lower back pain. NEURLOGICAL: Had seizure activity with incoherence significant cephalopathy and not been able to answer any question appropriately at this point. BEHAVIORAL/PSYCH: Negative. ENDOCRINE: Negative. PHYSICAL EXAMINATION: General Appearance: She is opening her eyes not able to answer yet does not look in any respiratory distress. Neck HEENT: Supple, no lymphadenopathy, no thyroid enlargement, no carotid bruits. Lungs: Clear to auscultation without crackles or wheezes no rhonchi, no deformity. Chest Wall: Normal expansion with slight tenderness, slightly at resuscitation. And no deformity was found on exam, no costochondral pain or discomfort. Heart: Regular rate and rhythm, S1, S2 normal, no murmur, rub or gallop. Back: Symmetric, no curvature, ROM normal, no CVA tenderness. Abdomen: Soft, non-tender, bowel sounds active all four quadrants, no masses, no organomegaly. Extremities: Extremities normal, atraumatic, no cyanosis or edema. Pulses: 2+ and symmetric. Skin: Skin color, texture, tugor normal, no rashes or lesions. Neurologic: Alert significantly confused cranial nerves II through XII intact, generalized weakness bilaterally, not been able to do gait exam. ASSESSMENT AND PLAN: _Severe hyperosmolar hyperglycemia with nonketotic hyperglycemia blood sugars much better she is off insulin drip and back on NovoLog 4 units AC meals plus sliding scales coverage with Levemir 10 units a day and back on Tradjenta. Will keep her on diet resume when she was home looks like simple management specially to clear her sliding scales to have her on scale 8. _Severe hyponatremia most likely pseudohyponatremia secondary to severe hyperglycemia sodium is corrected up to 132 has been much better so far. _Witnessed seizure: Secondary to hyperosmolar hyperglycemia and severe hyponatremia both are correct at this point the patient can stop Keppra. _? Of stroke: With her mental status, speech, weakness are all improved neurology believe this was more seizure activity no indication for any antiepileptic management needed at this point but still with the state regulation patient is not supposed to drive for the next 6 months. _Severe dysphagia and aphasia: Has improved significantly speech seen patient patient is able to swallow her speech is back to normal. Altered mental status: With improvement of her sodium her mental status has improved significantly _Severe hypothyroidism: Again most likely from noncompliant to medication 100 mcg of levothyroxine can be given IV and switch patient to oral soon as she is able to swallow. Multiple coronary artery disease last angiogram was in June 06, 2023 with mild LAD mild circumflex completely blockage in the RCA. The patient will be on medical management only. COPD: She is on her updraft treatment does not require any oxygen she is on steroids is inhaler as well. Mild PAD has been on Pletal 100 mg twice a day. Type 2 diabetes: Again seen how easy is to control her blood sugar with smaller dose of NovoLog and Levemir with Tradjenta I see her compliance is t echnically the main problem here and her education how to care for herself and give herself insulin is probably part of the problem is for the few time of seeing her in the hospital so far I have not seen any family member comes around to talk to or be over concerned I still believe she is the only person who is doing this on her own sometimes find doing any of her medication including her insulin is not necessary for her survival whatsoever which is part of the problem might she keep coming back with either severe hypo or hyperglycemia creating more problem sadly this is will increase her mortality significantly will keep having the social service technician involved to see if we can look for more help and family member around to have them in charge to watch a little bit more carefully. Hypertension: Continue losartan 25 mg a day and metoprolol succinate 50 mg daily. Chronic diabetic neuropathy: Has been on gabapentin 600 mg 3 times a day. Will hold off on gabapentin for the next 24 hours. Hypothyroidism: Continue levothyroxine 250 mcg daily. Will continue medication. Hyperlipidemia: Remain on rosuvastatin 40 mg a day with LDL has been below 70. Chronic depression: Has been on Effexor XR 225 mcg daily along with mirtazapine 7.5 mg at bedtime. Gastroparesis with recurrent episode of nausea and vomiting has been on Zofran, Protonix and Reglan. Iron deficiency anemia: Continue iron supplement and IV if needed. Discussion the patient has been doing very well out of the ICU no further seizure activity, mental status and speech is back to his baseline simplifying her medication management for diabetic management as an outpatient patient mobility still not at good still in direct contact with social service technician and physical therapy involvement of the brain with patient is stable for discharge home tomorrow if mild patient can benefit from going to subacute rehab. Objective - Vital Signs Vital signs: Vital Signs Temp 98.0 F 03/04/24 07:12 Pulse 78 03/04/24 07:12 Resp 16 03/04/24 07:12 BP 134/81 03/04/24 07:12 Pulse Ox 98 03/04/24 07:12 FiO2 Intake & Output 03/03/24 03/04/24 03/04/24 18:59 06:59 18:59 Intake Total 550 590 Output Total 500 350 Balance 50 240 Intake: Intake, IV Titration 150 Amount Sodium Chloride 0.9% 1, 150 000 ml @ 50 mls/hr IV . Q20H [facility] Rx#:[id number] Oral 400 590 Output: Urine 500 350 Other: Voiding Method External Catheter External Catheter # Voids 1 - Labs CBC & Chem 7: 03/03/24 05:44 03/03/24 05:44 Labs: Abnormal Lab Results - Last 24 Hours (Table) 03/03/24 03/03/24 03/03/24 Range/Units 12:01 16:03 23:34 POC Glucose (mg/dL) 192 H 134 H 122 H (70-110) mg/dL 03/04/24 03/04/24 Range/Units 04:07 08:10 POC Glucose (mg/dL) 183 H 230 H (70-110) mg/dL
[2024-03-05 08:36] LABS: Glucose,Whole Blood 278 mg/dL (70-110)
[2024-03-05 08:52] LABS: HGB 10.4 g/dL (12.0-15.0); MCHC 32.5 g/dL (32.0-37.0); MCV 92.2 FL (80.0-97.0); Mean Platelet Volume 10.8 FL (9.5-12.2); NRBC Per 100 WBC 0 X 10*3/uL (0.00-0.01); Platelet Count 264 X 10*3/uL (140-440); RBC 3.47 X 10*6/uL (4.10-5.20); RDW 15.1 % (11.5-14.5); WBC 6.89 X 10*3/uL (4.50-10.00)
[2024-03-05 09:17] LABS: ALT 6 U/L (8-44); AST 15 U/L (13-35); Albumin 3.5 g/dL (3.8-4.9); Albumin/Globulin Ratio 1.59 Ratio (1.60-3.17); Alkaline Phosphatase 105 U/L (41-126); BUN/Creat Ratio 8.57 Ratio (12.00-20.00); Calcium 8.5 mg/dL (8.7-10.3); Carbon Dioxide 23.5 mmol/L (21.6-31.8); Chloride 103 mmol/L (96-109); Globulin 2.2 g/dL (1.6-3.3); Glucose 138 mg/dL (70-110); Sodium 137 mmol/L (135-145); Total Bilirubin <0.2 mg/dL (0.3-1.2); Total Protein 5.7 g/dL (6.2-8.2)
--- NOTE | 2024-03-05 10:19 | P.DS ---
Providers Date of admission: 03/01/24 02:40 Attending physician: Gage Sy Consults: 03/01/24 02:37 Consult Physician Urgent Consulting Provider: Chris Mcghee Consult Reason/Comments: pseudohyponatremia, seizure activity Do you want consulting provider notified?: Yes 03/01/24 02:40 Consult Physician Stat Consulting Provider: Yamile Sunshine Consult Reason/Comments: hhs Do you want consulting provider notified?: Already Contacted 03/01/24 04:48 Consult Physician Urgent Consulting Provider: Valdez Valenzuela Consult Reason/Comments: seizure acitivty; AMS Do you want consulting provider notified?: Yes Primary care physician: [facility] Course: History of present illness: 64-year-old with active medical history of insulin-dependent diabetes, coronary artery disease, history of for stent, chronic history of arthralgia, chronic neuropathy, previous history of CVA and TIA, coagulopathy with history of DVT, history of rheumatoid arthritis, history of hypertension, hyperlipidemia, recurrent UTI with combination of ESBL and MRSA in the past who also has several admission to the emergency department with chest pain, UTI, severe nonketotic hyperglycemia with history of DKA as well mostly secondary to noncompliance to medication and the claim of nonfunctioning insulin pump who also had recurrent history of encephalopathy and chronic patient challenging circumstances mostly consistent with noncompliance to medication the patient also seen endocrinology regular basis has been on and off insulin pump repeatedly not a clear anymore whether she is on it or not with the last 3 admission to the hospital her insulin pump was stopped completely and placed on short and long-acting insulin which apparently keep being changed repeatedly by her link wire fabric machine tender. Patient found by family member sitting on the stairs confused at home EMS was called to the scene and while she is on arrival she had 4-minute seizure like activity with tonic clonic was observed was giving 10 mg of Versed to terminate her seizure at the time of arrival to the emergency department her blood sugar was 1192 with lactic acid 1.7. Serum bicarbonate was 23 with sodium 113 potassium 5.2 and chloride 75 bun 25 creatinine 1.08. CAT scan of the brain was performed without contrast did not show any intracranial hemorrhage or midline shift or mass effect the patient was incoherent at the time and nonverbal was quite bit confused. DKA protocol was started patient started on insulin drip along with IV hydration admitted to the intensive care unit loaded with benzodiazepine to help with seizure activity and admitted with above problem. 03/02/2024: She is continue to struggle quite a bit with her expressive aphasia which look like more than seizure possibility of stroke is a bit higher and despite the fact the patient still recovering from her severe encephalopathy which is can be part of the problem at this point. Will consult speech therapy while she is in the ICU the meanwhile her blood sugar has been much better and the new adjusted regime of her diabetic management between doing NovoLog every 4 hours and having 4 units of NovoLog AC meals 3 times a day and having to be Levemir 10 units in the morning with Tradjenta 5 mg a day skipping her blood sugar under better control. Patient is not having any ketone at this point she is not severely hyperglycemic and her hyponatremia has improved with osmolality has been better. She is seen neurology today before the idea especially with her seizure and her mental status most likely the severe hyperglycemia and hypon atremia what provoked the seizure in the first place that with her expressive aphasia and right-sided weakness not quite sure if she had any extension of her stroke from before not time only can tell further testing might be needed. Her EEG from day before came back quite bit abnormal but mostly due to moderate encephalopathy with no focal lateralization or epileptiform activity seen. 03/03/2024: Blood sugar has improved significantly and current management she has no episode of hypoglycemia and not hyper readings still under 200. Electrolyte imbalance with sodium still at 132, normal chloride with normal kidney function. Also patient does not have any seizure activity, we we will continue to manage her blood sugar with short and long-acting insulin with titration, still on Tradjenta 5 mg a day. She is able to be transfer out of the ICU. Mental status has improved significantly her speech has been much better able to express herself she will be evaluated by speech therapy will be evaluated for swallow as well. 03/04/2024: She is doing much better out of the ICU her blood sugar has been running in the low 100 her pseudo hyponatremia has improved significantly sodium in the 130 level. Still doing some physical therapy not quite sure if patient is able to go home or she needs subacute rehab at this point encourage oral intake the adjustment of her short and long-acting insulin and minimize her diabetic management medication will seem to control her blood sugar quite well at this point she will be discharged eventually on NovoLog 5 units AC meals plus sliding scales with Levemir 10 units a day beside the Tradjenta 5 mg a day with so far has kept her blood sugar under control last few days. Mobility russo not quite sure if patient would benefit from going to rehab or not any location probably patient is getting ready to be discharged tomorrow. 03/05/2024: She is doing well out of the ICU symptom improved significantly Not having any further hypo or hyperglycemic episode, still follow-up with pulmonary and nephrology. Laboratory value on blood sugar has been much better. Mobility russo still significantly decreased require little bit help has been doing slight physical therapy my goal still to see if patient can benefit from going to subacute rehab may be more education on diet and the value of compliant with medication will be more helpful the patient recurrent visit to the emergency room in the hospital with the same circumstances which she is quit taking her medication because she become either ketotic or nonketotic hyperglycemia has not started her any better she has been off insulin pump lately at least trying to do the short and long-acting insulin which she is very simple and easy to follow for somebody has been diabetic for a long time. If subacute rehab is not an option patient will require probably home care with intense visit to the office and to her link wire fabric machine tender on more regular basis maybe see certified adapted physical educator more often to see if we can straighten her blood sugar and protect any change in going that fast. Any occasion patient should have continued glucose monitor with the warning on it for low and high should be good enough to warn her of on any ongoing episode. REVIEW OF SYSTEMS: CONSTITUTIONAL: Well-developed still incoherent drowsy and sluggish not answering question appropriately does not look in any distress. EYES: No icterus sclerae, no conjunctivitis. EARS, NOSE, MOUTH, THROAT, and FACE: No sore throat, lymphadenopathy, carotid bruits or deformity. RESPIRATORY: No SOB cough or wheezes. CARDIOVASCULAR: No CP, Palpitation, PND, Orthopnea, or angina. GASTROINTESTINAL: No Abd pain, Nausea or vomiting, no Diarrhea or constipation, No GI Bleed, no distention or masses. GENITOURINARY: Mostly incontinence no kidney stone or bloody urine. INTEGUMENT/BREAST: Generalized muscle and joint pain. HEMATOLOGIC/LYMPHATIC: Negative for bleed or purpura. MUSCULOSKELTAL: Myalgia and arthralgia with lower back pain. NEURLOGICAL: Had seizure activity with incoherence significant cephalopathy and not been able to answer any question appropriately at this point. BEHAVIORAL/PSYCH: Negative. ENDOCRINE: Negative. PHYSICAL EXAMINATION: General Appearance: She is opening her eyes not able to answer yet does not look in any respiratory distress. Neck HEENT: Supple, no lymphadenopathy, no thyroid enlargement, no carotid bruits. Lungs: Clear to auscultation without crackles or wheezes no rhonchi, no deformity. Chest Wall: Normal expansion with slight tenderness, slightly at resuscitation. And no deformity was found on exam, no costochondral pain or discomfort. Heart: Regular rate and rhythm, S1, S2 normal, no murmur, rub or gallop. Back: Symmetric, no curvature, ROM normal, no CVA tenderness. Abdomen: Soft, non-tender, bowel sounds active all four quadrants, no masses, no organomegaly. Extremities: Extremities normal, atraumatic, no cyanosis or edema. Pulses: 2+ and symmetric. Skin: Skin color, texture, tugor normal, no rashes or lesions. Neurologic: Alert significantly confused cranial nerves II through XII intact, generalized weakness bilaterally, not been able to do gait exam. ASSESSMENT AND PLAN: _Severe hyperosmolar hyperglycemia with nonketotic hyperglycemia blood sugars much better she is off insulin drip and back on NovoLog 4 units AC meals plus sliding scales coverage with Levemir 10 units a day and back on Tradjenta. Will keep her on diet resume when she was home looks like simple management specially to clear her sliding scales to have her on scale 8. _Severe hyponatremia most likely pseudohyponatremia secondary to severe hyperglycemia sodium is corrected up to 132 has been much better so far. _Witnessed seizure: Secondary to hyperosmolar hyperglycemia and severe hyponatremia both are correct at this point the patient can stop Keppra. _? Of stroke: With her mental status, speech, weakness are all improved neurology believe this was more seizure activity no indication for any antiepileptic management needed at this point but still with the state regulation patient is not supposed to drive for the next 6 months. _Severe dysphagia and aphasia: Has improved significantly speech seen patient patient is able to swallow her speech is back to normal. Altered mental status: With improvement of her sodium her mental status has improved significantly _Severe hypothyroidism: Again most likely from noncompliant to medication 100 mcg of levothyroxine can be given IV and switch patient to oral soon as she is able to swallow. Multiple coronary artery disease last angiogram was in June 06, 2023 with mild LAD mild circumflex completely blockage in the RCA. The patient will be on medical management only. COPD: She is on her updraft treatment does not require any oxygen she is on steroids is inhaler as well. Mild PAD has been on Pletal 100 mg twice a day. Type 2 diabetes: Again seen how easy is to control her blood sugar with smaller dose of NovoLog and Levemir with Tradjenta I see her compliance is technically the main problem here and her education how to care for herself and give herself insulin is probably part of the problem is for the few time of seeing her in the hospital so far I have not seen any family member comes around to talk to or be over concerned I still believe she is the only person who is doing this on her own sometimes find doing any of her medication including her insulin is not necessary for her survival whatsoever which is part of the proble m might she keep coming back with either severe hypo or hyperglycemia creating more problem sadly this is will increase her mortality significantly will keep having the social security specialist involved to see if we can look for more help and family member around to have them in charge to watch a little bit more carefully. Hypertension: Continue losartan 25 mg a day and metoprolol succinate 50 mg daily. Chronic diabetic neuropathy: Has been on gabapentin 600 mg 3 times a day. Will hold off on gabapentin for the next 24 hours. Hypothyroidism: Continue levothyroxine 250 mcg daily. Will continue m edication. Hyperlipidemia: Remain on rosuvastatin 40 mg a day with LDL has been below 70. Chronic depression: Has been on Effexor XR 225 mcg daily along with mirtazapine 7.5 mg at bedtime. Gastroparesis with recurrent episode of nausea and vomiting has been on Zofran, Protonix and Reglan. Iron deficiency anemia: Continue iron supplement and IV if needed. Discharge planning: Patient will be discharged from the hospital today. Hospital course: She was hospitalized on 03/01/2024 with severe altered mental status and had seizure activity with tonic-clonic EMS led to the scene had 10 mg of Versed to terminate her seizure was transported to the emergency department found to have blood sugar of 1192 with lactic acid 1.7 bicarbonate 23 sodium of 113 potassium 5.2. Patient was catatonic could not communicate for the following 48 hours. Ended up being admitted to the ICU had the same DKA protocol to bring her blood sugar down gradually work with IV fluid and insulin to drop her blood sugar and stabilize it. Patient was started on short and long-acting insulin along with her Tradjenta within the following few days. Patient has improved afterward seen neurology EEG failed to show any epileptic episode but had more encephalopathy decision to stop Keppra as soon as the patient blood sugar improved her seizure was related to severe hyperosmolality and severe hyponatremia because of seizure activity in the first place does not require any seizure treatment on the usp. After stabilizing in the ICU patient's speech and aphasia with dysphagia has improved significantly was able to eat and drink her speech is returned back to normal neurology did not feel the need to do any further workup for CVA at time. Patient was transferred out of ICU continue to watch her blood sugar. Physical therapy neck patient therapy was started patient is not doing that she still require some help and hoping to have the social security specialist help us to send patient to subacute rehab if possible for little bit better monitor. If patient does not go to subacute rehab going home with home care will be needed and she need intense follow-up appointment with her primary care every 1 to 2 weeks with certified adapted physical educator as well every 1 to 2 weeks and probably with her link wire fabric machine tender on monthly basis. Continue glucose monitor should be set up to give her more warning with any low and high and probably as a backup with her continued glucose monitor should be with family and friend log into their phone or electric device to get the morning so they can protect further outpatient little bit early stage without having to see the extreme severe hypo or hyperglycemia causing patient to have further problem. Patient stable medically otherwise per discharge medication reconciliation was done no insulin pump she will be on short and long-acting insulin no seizure management needed. Time spent on patient discharge was over 35 minutes. Patient Condition at Discharge: Serious Plan - Discharge Summary New Discharge Prescriptions: Continue Venlafaxine HCl [Effexor XR] 225 mg PO DAILY Pantoprazole Sodium [Protonix] 40 mg PO BID Aspirin EC [Ecotrin Low Dose] 81 mg PO DAILY Mirtazapine 7.5 mg PO HS cilostazoL [Pletal] 100 mg PO BID Losartan [Cozaar] 50 mg PO DAILY #60 tab Metoprolol Succinate (ER) [Toprol XL] 25 mg PO DAILY #60 tab INSULIN LISPRO (HumaLOG) [humaLOG] See Protocol SQ ACHS Folic Acid 1 mg PO DAILY tab Levothyroxine Sodium [Synthroid] 25 mcg PO DAILY@0630 #30 tab Doxycycline Monohydrate [Monodox] 100 mg PO DIRECTED Isosorbide Mononitrate ER [Imdur] 30 mg PO DAILY Linagliptin [Tradjenta] 5 mg PO DAILY #30 tab Glucagon [Gvoke Pfs 1-Pack Syringe] 1 mg SQ DIRECTED PRN PRN Reason: Hypoglycemia Insulin Glargine [Lantus Vial] 10 unit SQ DAILY INSULIN LISPRO (HumaLOG) [humaLOG] 4 units SQ AC-TID Midodrine [ProAmatine] 5 mg PO AC-TID #90 tab Acetaminophen Tab [Tylenol] 650 mg PO Q6HR PRN tab PRN Reason: Mild To Moderate Pain (1 - 6) Cyanocobalamin [Vitamin B-12] 1,000 mcg PO DAILY tab Discharge Medication List Venlafaxine HCl [Effexor XR] 225 mg PO DAILY 10/21/16 [History] Pantoprazole Sodium [Protonix] 40 mg PO BID 04/06/20 [History] Aspirin EC [Ecotrin Low Dose] 81 mg PO DAILY 10/03/22 [History] Isosorbide Mononitrate ER [Imdur] 30 mg PO DAILY 04/10/23 [History] Mirtazapine 7.5 mg PO HS 04/10/23 [History] cilostazoL [Pletal] 100 mg PO BID 08/02/23 [History] Losartan [Cozaar] 50 mg PO DAILY #60 tab 08/05/23 [Rx] Metoprolol Succinate (ER) [Toprol XL] 25 mg PO DAILY #60 tab 08/05/23 [Rx] Linagliptin [Tradjenta] 5 mg PO DAILY #30 tab 09/05/23 [Rx] Glucagon [Gvoke Pfs 1-Pack Syringe] 1 mg SQ DIRECTED PRN 02/12/24 [History] INSULIN LISPRO (HumaLOG) [humaLOG] 4 units SQ AC-TID 02/12/24 [History] INSULIN LISPRO (HumaLOG) [humaLOG] See Protocol SQ ACHS 02/12/24 [History] Insulin Glargine [Lantus Vial] 10 unit SQ DAILY 02/12/24 [History] Acetaminophen Tab [Tylenol] 650 mg PO Q6HR PRN tab 02/18/24 [Rx] Cyanocobalamin [Vitamin B-12] 1,000 mcg PO DAILY tab 02/18/24 [Rx] Folic Acid 1 mg PO DAILY tab 02/18/24 [Rx] Levothyroxine Sodium [Synthroid] 25 mcg PO DAILY@0630 #30 tab 02/18/24 [Rx] Midodrine [ProAmatine] 5 mg PO AC-TID #90 tab 02/18/24 [Rx] Doxycycline Monohydrate [Monodox] 100 mg PO DIRECTED 03/01/24 [History] Follow up Appointment(s)/Referral(s): Sahra Elder MD [Primary Care Provider] - 1-2 days Dixon Wahl MD [REFERRING] - 1 Week Discharge Disposition: TRANSFER TO SNF/ECF
--- NOTE | 2024-03-05 11:36 | P.PN ---
Subjective Progress Note Date: 03/05/24 Principal diagnosis: Seizure. Patient is a 64-year-old female with past medical history significant for insulin-dependent diabetes mellitus, diabetic neuropathy, gastroparesis, hy pothyroidism, hypothyroidism, coronary artery disease with previous PCI/stenting, hypertension, hyperlipidemia, DVT, and COPD. Patient has history of uncontrolled type 2 insulin-dependent diabetes. Apparently, a bystander or family member found patient sitting in a chair, confused at her home, and he called EMS. While in route, patient reportedly had a 4-minute seizure witnessed by EMS. Tonic-clonic activity was observed. Terminated with 10 mg of IM Versed. Brain CT without contrast on arrival did not show any acute intracranial hemorrhage, midline shift, or mass effect. There is enceph alomalacia in the right occipital lobe consistent with old infarct. On arrival, glucose was noted to be 1192. Serum bicarb 23. Ketone negative. Patient started on the [facility] protocol in the ER. Patient is currently being evaluated in trauma bay 1. She is alert but confused and cannot provide any useful information. Mostly incoherent mumbling. CBC: WBC count 4.1, hemoglobin 11.2, hematocrit 36.6, platelets 363. CMP: Sodium 113, potassium 5.2, chloride 75, serum bicarb 23, BUN 25, creatinine 1.08, glucose 1192. Lactic 1.7. LFTs unremarkable. Troponin 0.013. Patient's sodium when corrected for hyperglycemia is 130. TSH greater than 100, free T4 low at 0.44. Patient does take Synthroid on outpatient basis, likely noncompliant. No edema. Last recorded temperature 98 F. Heart rate 99. Blood pressure 153/96 mmHg. SpO2 99% on room air. Chest x-ray does not show any focal infiltrates consistent with pneumonia. Urinalysis unremarkable for infection. Ketone negative. Urine toxicology screen negative. Serum alcohol less than 10. Normal saline currently infusing at 200 mL/h. Insulin infusing at 10 units per hour. She will be admitted to the intensive care unit once bed available. Progress note dated March 02, 2024. 64-year-old female seen yesterday in consultation. The patient was admitted with a diagnosis of hyperosmolar nonketotic coma. Her blood glucose was well over thousand. In addition, she had pseudohyponatremia. The patient was admitted to the intensive care unit for further monitoring and management, given the fact that she had a seizure. Currently, she is resting comfortably in the ICU. She is in room 260. She is on room air. She is getting saline at 50 cc an hour. Since being in the intensive care unit, she has had no further seizure activity. Current labs include a white count of 5, hemoglobin 10.3, hematocrit 30.1, and a normal platelet count. Sodium 131, potassium 4, chlorides 103, CO2 20, BUN 10, creatinine 0.75. Blood sugar is 306. Calcium 8.2. Albumin 3.2. Progress note dated March 03, 2024. 64-year-old female seen in the intensive care unit, room 260. She was initially admitted with a diagnosis of pseudohyponatremia, and hyperosmolar nonketotic coma. Currently, the patient is resting comfortably in room 260. She is on room air. She is getting saline at 50 cc an hour. She is stable for transfer out of the intensive care unit, but is currently being evaluated by speech pathology, as it relates to her swallow. Current laboratory includes a white count 7.4, hemoglobin 10.6, hematocrit 32.6, and a normal platelet count. Sodium 132, potassium 4.5, chlorides 107, CO2 20, BUN 9, creatinine 0.88. Glucose is 196. Calcium 8.5, and magnesium 2.1. Progress note dated March 04, 2024. The patient is seen today in room 521. The patient is on room air. Saturations are 99%. The patient is not receiving any IV fluids. The patient was admitted with a diagnosis of hyperosmolar nonketotic coma, and seizure disorder. The patient was in the intensive care unit for a few days. She is now under general medical floor. She appears in no distress. No new labs today other than a glucose of 261. Progress note dated March 05, 2024. The patient is seen today in room 521. She is doing well. The patient is currently on room air. Saturation is 96%. She is not receiving any IV fluids. She was initially admitted with a diagnosis of hyperosmolar nonketotic coma, and seizure disorder. She was in the intensive care unit for a number of days. Current labs include a white count of 6.9, hemoglobin 10.4, hematocrit 32, and a normal platelet count. Sodium 137, potassium 5, chlorides 103, CO2 24, BUN 12, creatinine 1.4. Most recent glucose was 278. Objective - Vital Signs Vital signs: Vital Signs Temp 97.9 F 03/05/24 07:45 Pulse 75 03/05/24 07:45 Resp 12 03/05/24 07:45 BP 155/85 03/05/24 07:45 Pulse Ox 98 03/05/24 07:45 FiO2 Intake & Output 03/04/24 03/05/24 03/05/24 18:59 06:59 18:59 Intake Total 120 Balance 120 Weight 62.6 kg Intake: Oral 120 Other: Voiding Method External Catheter Diaper Toilet # Voids 3 - Exam No acute distress, oriented 3. Patient currently on room air. Saturation is 99 %. HEENT examination is grossly unremarkable. Mucous membranes are moist. No oral lesions. Neck supple. Full range of motion. No adenopathy thyromegaly or neck vein distention. Cardiovascular examination reveals regular rhythm rate. S1-S2 normal. No S3 or S4. No discernible murmur noted. Lungs reveal clear breath sounds. Breath sounds are equal bilaterally. No adventitious lung sounds including wheezes rhonchi or crackles. Abdomen soft bowel sounds are heard. No masses or tenderness. Extremities are intact. No cyanosis clubbing or edema. Skin is without rash or lesion. Neurologic examination is brief but nonfocal. - Labs CBC & Chem 7: 03/05/24 03:22 03/05/24 03:22 Labs: Abnormal Lab Results - Last 24 Hours (Table) 03/04/24 03/04/24 03/05/24 Range/Units 12:08 16:07 03:22 RBC 3.47 L (4.10-5.20) X 10*6/uL Hgb 10.4 L (12.0-15.0) g/dL Hct 32.0 L (37.2-46.3) % RDW 15.1 H (11.5-14.5) % Est GFR (CKD-EPI) (>=60) BUN/Creatinine Ratio (12.00-20.00) Ratio Glucose (70-110) mg/dL POC Glucose (mg/dL) 261 H 148 H (70-110) mg/dL Calcium (8.7-10.3) mg/dL Total Bilirubin (0.3-1.2) mg/dL ALT (8-44) U/L Total Protein (6.2-8.2) g/dL Albumin (3.8-4.9) g/dL Albumin/Globulin Ratio (1.60-3.17) Ratio 03/05/24 03/05/24 03/05/24 Range/Units 03:22 04:14 08:33 RBC (4.10-5.20) X 10*6/uL Hgb (12.0-15.0) g/dL Hct (37.2-46.3) % RDW (11.5-14.5) % Est GFR (CKD-EPI) 42 L (>=60) BUN/Creatinine Ratio 8.57 L (12.00-20.00) Ratio Glucose 138 H (70-110) mg/dL POC Glucose (mg/dL) 173 H 278 H (70-110) mg/dL Calcium 8.5 L (8.7-10.3) mg/dL Total Bilirubin <0.2 L (0.3-1.2) mg/dL ALT 6 L (8-44) U/L Total Protein 5.7 L (6.2-8.2) g/dL Albumin 3.5 L (3.8-4.9) g/dL Albumin/Globulin Ratio 1.59 L (1.60-3.17) Ratio Assessment and Plan Assessment: Hyperosmolar hyperglycemic nonketotic state, suspect secondary to medication noncompliance. Severe hypothyroidism, TSH greater than 100, free T4 0.44; also likely secondary to medication noncompliance. Pseudohyponatremia, secondary to hyperglycemia. Witnessed seizure activity in-route to hospital. Altered mental status, suspect secondary to acute metabolic encephalopathy. History of CVA, per brain CT which did not show any acute intracranial hemorrhage, midline shift, or mass effect. Insulin-dependent type 2 diabetes mellitus. History of diabetic neuropathy. History of gastroparesis. History of hypothyroidism. History of hyperlipidemia. Hypertension. History of coronary artery disease, with previous PCI/stenting. History of DVT. History of COPD, inactive. Plan: Plan dated March 02, 2024. The patient is seen in room 260. The patient is on room air. She is getting saline at 50 cc an hour. Labs, x-rays, and all medications are reviewed. The patient is doing much better, metabolically, although her mental status is still poor. The patient is stable to be transferred out of the intensive care unit, to the general medical floor. We will continue to follow. Prognosis is guarded. Plan dated March 03, 2024. The patient is seen in room 260. She is on room air. She is getting saline at 50 cc an hour. Labs, x-rays, and medications are reviewed. The patient had an uneventful night. Her respiratory status is stable. Her hemodynamic and cardiovascular status is stable. From my perspective, the patient could be discharged out of the intensive care unit, to the general medical floor. She is counseled about the importance of properly managing her diabetes. Plan dated March 04, 2024. The patient is seen in room 521. She is on room air. Saturations are 99%. Labs, x-rays, and medications are reviewed. The patient has had no further seizures. Her blood sugars are much better controlled. Labs, x-rays, and medications are reviewed. We will continue to follow. Prognosis is guarded. Plan dated March 05, 2024. The patient appears to be doing relatively well. The patient was transferred out of the intensive care unit. Currently, she is on room air. Saturations are excellent. She is not receiving any IV fluids. Labs, x-rays, and all medications are reviewed. Possible discharge later today. No additional recommendations at this time. Time with Patient: Less than 30
--- NOTE | 2024-03-05 11:54 | P.PN ---
Subjective Progress Note Date: 03/04/24 Patient was seen for a follow-up. Patient is laying comfortably in the bed. Patient is doing very well. Patient states that she has right shoulder soreness from rotator cuff. Patient's speech and language functions has much improved. Please refer to examination below. Patient denies any history of previous seizures. No further seizures have been reported. Objective - Vital Signs Vital signs: Vital Signs Temp 97.9 F 03/05/24 07:45 Pulse 75 03/05/24 07:45 Resp 12 03/05/24 07:45 BP 155/85 03/05/24 07:45 Pulse Ox 98 03/05/24 07:45 FiO2 Intake & Output 03/04/24 03/05/24 03/05/24 18:59 06:59 18:59 Intake Total 120 Balance 120 Weight 62.6 kg Intake: Oral 120 Other: Voiding Method External Catheter Diaper Toilet # Voids 3 - Exam Patient is alert and awake fully oriented. She knows it is February 2024 and that she is in [facility] in [facility]. Patient can name objects presented like knuckles, earlobe and patient can repeat very well. No obvious dysarthria. Patient is edentulous therefore has some difficulty. On cranial examination, pupils are equal, round and reacting to light, visual robertson are full on confrontation. Extraocular muscles are intact with no nystagmus. Face is symmetric and tongue protrudes midline. On muscle strength testing there is no pronator drift and the strength is normal in arms and legs distally and proximally. Sensory to touch is equal with no neglect. No ataxia for [id number] testing. - Labs CBC & Chem 7: 03/05/24 03:22 03/05/24 03:22 Labs: Abnormal Lab Results - Last 24 Hours (Table) 03/04/24 03/04/24 03/05/24 Range/Units 12:08 16:07 03:22 RBC 3.47 L (4.10-5.20) X 10*6/uL Hgb 10.4 L (12.0-15.0) g/dL Hct 32.0 L (37.2-46.3) % RDW 15.1 H (11.5-14.5) % Est GFR (CKD-EPI) (>=60) BUN/Creatinine Ratio (12.00-20.00) Ratio Glucose (70-110) mg/dL POC Glucose (mg/dL) 261 H 148 H (70-110) mg/dL Calcium (8.7-10.3) mg/dL Total Bilirubin (0.3-1.2) mg/dL ALT (8-44) U/L Total Protein (6.2-8.2) g/dL Albumin (3.8-4.9) g/dL Albumin/Globulin Ratio (1.60-3.17) Ratio 03/05/24 03/05/24 03/05/24 Range/Units 03:22 04:14 08:33 RBC (4.10-5.20) X 10*6/uL Hgb (12.0-15.0) g/dL Hct (37.2-46.3) % RDW (11.5-14.5) % Est GFR (CKD-EPI) 42 L (>=60) BUN/Creatinine Ratio 8.57 L (12.00-20.00) Ratio Glucose 138 H (70-110) mg/dL POC Glucose (mg/dL) 173 H 278 H (70-110) mg/dL Calcium 8.5 L (8.7-10.3) mg/dL Total Bilirubin <0.2 L (0.3-1.2) mg/dL ALT 6 L (8-44) U/L Total Protein 5.7 L (6.2-8.2) g/dL Albumin 3.5 L (3.8-4.9) g/dL Albumin/Globulin Ratio 1.59 L (1.60-3.17) Ratio Assessment and Plan Assessment: * Seizure, likely provoked due to acute metabolic encephalopathy. Reasons multifactorial as below. * Altered mental status, likely due to metabolic encephalopathy. * Hyperosmolar nonketotic diabetic state, with highly elevated blood glucose 1192. * Hyponatremia with sodium 113 * Hypothyroidism, severe, with TSH > 100 * History of CVA with residual very mild expressive aphasia. * Diabetes, poorly controlled, with A1c 15.1. * Patient admits to smoking. Plan: * Patient's seizure was likely provoked due to acute metabolic encephalopathy. * EEG was performed, which revealed mild to moderate background slowing, suggestive of encephalopathy. No epileptiform activity was seen. * No indication for antiepileptic medication, as seizure was likely provoked due to above factors. * Treatment of hyperglycemia, hyponatremia, and hypothyroidism as per IM and critical care. * Patient's speech and language functions have improved, likely due to improvement in the metabolic encephalopathy. Patient can express very well, no definitive evidence of aphasia. Her muscle strength also appears normal on both sides. Right shoulder is slightly weak from arthritic issue. * Patient had a carotid Doppler on 07/15/2022, which revealed less than 10% stenosis in both ICA. Antegrade flow in both vertebral arteries. * 2D echo on 06/05/2023 revealed mildly impaired left ventricular systolic function with segmental wall motion abnormality. LVEF is 45 to 50%. Apical septum and apical inferior moya are hypokinetic. Mild MR and AR. * Continue aspirin 81 mg daily. Lipid panel from 09/03/2022 with cholesterol 148, LDL 47, HDL 46, triglycerides 269. LDL is well-controlled. * Patient on vitamin B12 1000 mcg orally daily and folic acid 1 mg daily. Aggressive control of vascular risk factors. * Recommend tobacco cessation. * Neurologically, no other workup indicated.
[2024-03-05 11:56] LABS: Glucose,Whole Blood 366 mg/dL (70-110)
[2024-03-05 13:23] VITALS: BP 138/80; PULSE 86; RESP 15; TEMP 98.6
--- NOTE | 2024-03-05 20:27 | P.PN ---
Subjective patient is seen for follow-up for pseudohyponatremia associated with severe hyperglycemia. off of IV fluids. Tolerating oral intake. Mentation has improved and appears to be at baseline. Objective - Vital Signs Vital signs: Vital Signs Temp 98.6 F 03/05/24 12:56 Pulse 86 03/05/24 12:56 Resp 15 03/05/24 12:56 BP 138/80 03/05/24 12:56 Pulse Ox 99 03/05/24 12:56 FiO2 Intake & Output 03/05/24 03/05/24 03/06/24 06:59 18:59 06:59 Intake Total 120 Balance 120 Intake: Oral 120 Other: Voiding Method Diaper Toilet # Voids 4 - Exam patient is awake, comfortable, no acute distress. She is confused on and off Examination of the heart S1 and S2 Examination of the lungs bilateral breath sounds are heard Abdomen is soft nontender Examination of lower extremities shows no significant edema. Patient is moving all 4 extremities. - Labs CBC & Chem 7: 03/05/24 03:22 03/05/24 03:22 Labs: Abnormal Lab Results - Last 24 Hours (Table) 03/05/24 03/05/24 03/05/24 Range/Units 03:22 03:22 04:14 RBC 3.47 L (4.10-5.20) X 10*6/uL Hgb 10.4 L (12.0-15.0) g/dL Hct 32.0 L (37.2-46.3) % RDW 15.1 H (11.5-14.5) % Est GFR (CKD-EPI) 42 L (>=60) BUN/Creatinine Ratio 8.57 L (12.00-20.00) Ratio Glucose 138 H (70-110) mg/dL POC Glucose (mg/dL) 173 H (70-110) mg/dL Calcium 8.5 L (8.7-10.3) mg/dL Total Bilirubin <0.2 L (0.3-1.2) mg/dL ALT 6 L (8-44) U/L Total Protein 5.7 L (6.2-8.2) g/dL Albumin 3.5 L (3.8-4.9) g/dL Albumin/Globulin Ratio 1.59 L (1.60-3.17) Ratio 03/05/24 03/05/24 Range/Units 08:33 11:50 RBC (4.10-5.20) X 10*6/uL Hgb (12.0-15.0) g/dL Hct (37.2-46.3) % RDW (11.5-14.5) % Est GFR (CKD-EPI) (>=60) BUN/Creatinine Ratio (12.00-20.00) Ratio Glucose (70-110) mg/dL POC Glucose (mg/dL) 278 H 366 H (70-110) mg/dL Calcium (8.7-10.3) mg/dL Total Bilirubin (0.3-1.2) mg/dL ALT (8-44) U/L Total Protein (6.2-8.2) g/dL Albumin (3.8-4.9) g/dL Albumin/Globulin Ratio (1.60-3.17) Ratio Assessment and Plan Assessment: 1. Hyperosmolar nonketotic diabetic state, S/P insulin drip 2. Pseudohyponatremia associated with significantly elevated blood sugar of 1192. Corrected sodium for the hyperglycemia was 130 if correction factor of 1.6 is used. 3. Altered mentation secondary to hyperosmolar non-ketotic diabetic state much improved 4. Severe hypothyroidism with TSH more than 100, T4 at 0.4 Plan: continue to encourage increased oral intake Continue supplementation with Synthroid
== END 2024-03-05 16:35 | disposition home health service (06) | DRG 420 ==
LOC: EC 00:58 → 2SICU 02:40 → 5NMEDONC 03-04 02:54
PROVIDERS: ADMIT Internal Medicine Geriatric Medicine; ATTEND Internal Medicine Geriatric Medicine
DX: E11.00 Type 2 diabetes mellitus with hyperosmolarity without nonketotic hyperglycemic-hyperosmolar coma (NKHHC) (principal); E11.51 Type 2 diabetes mellitus with diabetic peripheral angiopathy without gangrene; E11.43 Type 2 diabetes mellitus with diabetic autonomic (poly)neuropathy; E11.42 Type 2 diabetes mellitus with diabetic polyneuropathy; J44.9 Chronic obstructive pulmonary disease, unspecified; E11.65 Type 2 diabetes mellitus with hyperglycemia; I69.320 Aphasia following cerebral infarction; I10 Essential (primary) hypertension; M06.9 Rheumatoid arthritis, unspecified; Z79.4 Long term (current) use of insulin; G93.41 Metabolic encephalopathy; R13.19 Other dysphagia; G93.89 Other specified disorders of brain; D50.9 Iron deficiency anemia, unspecified; E89.0 Postprocedural hypothyroidism; F32.A Depression, unspecified; I69.391 Dysphagia following cerebral infarction; Z91.148 Patient's other noncompliance with medication regimen for other reason; G89.29 Other chronic pain; E78.5 Hyperlipidemia, unspecified; I25.10 Atherosclerotic heart disease of native coronary artery without angina pectoris; T38.1X6A Underdosing of thyroid hormones and substitutes, initial encounter; K31.84 Gastroparesis; Z79.82 Long term (current) use of aspirin; Z79.84 Long term (current) use of oral hypoglycemic drugs; Z79.890 Hormone replacement therapy; Z79.899 Other long term (current) drug therapy; Z85.528 Personal history of other malignant neoplasm of kidney; Z90.5 Acquired absence of kidney; I25.2 Old myocardial infarction; Z86.14 Personal history of Methicillin resistant Staphylococcus aureus infection; Z86.19 Personal history of other infectious and parasitic diseases; Z87.891 Personal history of nicotine dependence; Z86.718 Personal history of other venous thrombosis and embolism; Z95.5 Presence of coronary angioplasty implant and graft
CPT/HCPCS: 36415; 51701; 70450; 71045; 80048; 80051; 80053; 80306; 80320; 81003; 82009; 82140; 82565; 82947; 83036; 83605; 83735; 83930; 83935; 84100; 84300; 84439; 84443; 84484; 84520; 85025; 85027; 85610; 85730; 93005; 95816; 96360; 96361; 99291

== ENCOUNTER → 2024-03-26 | Outpatient (CLI) | payer OTHER ==
[2024-03-26 15:00] LABS: HGB 11.3 g/dL (12.0-15.0); MCH 29.4 pg (27.0-32.0); MCHC 33.2 g/dL (32.0-37.0); MCV 88.5 FL (80.0-97.0); Mean Platelet Volume 10.5 FL (9.5-12.2); NRBC Per 100 WBC 0 X 10*3/uL (0.00-0.01); Platelet Count 205 X 10*3/uL (140-440); RBC 3.84 X 10*6/uL (4.10-5.20); RDW 14.4 % (11.5-14.5); WBC 4.11 X 10*3/uL (4.50-10.00)
[2024-03-26 15:25] LABS: Carbon Dioxide 22.4 mmol/L (21.6-31.8); Chloride 80 mmol/L (96-109); Potassium 5.5 mmol/L (3.5-5.5); Sodium 120 mmol/L (135-145)
== END | disposition home or self-care (01) ==
LOC: LABPAT 10:19
PROVIDERS: ATTEND Internal Medicine Interventional Cardiology
DX: Z01.818 Encounter for other preprocedural examination (principal)
CPT/HCPCS: 36415; 80051; 82565; 84520; 85027

== ENCOUNTER 2024-03-29 13:36 | Inpatient (IN) | payer OTHER ==
--- NOTE | 2024-03-29 13:56 | ED ---
General Adult HPI - General Chief complaint: Recheck/Abnormal Lab/Rx Stated complaint: Abnormal Labs Time Seen by Provider: 03/29/24 13:39 Source: patient, RN/MD, RN notes reviewed Mode of arrival: ambulatory Limitations: no limitations - History of Present Illness Initial comments: Patient is a 64-year-old female presenting to the emergency department from procedures with Dr. Camp. Patient was to have aortogram. Patient was found to have abnormal blood work advised to come the emergency department. There was concern regarding sugar, sodium and creatinine. Dr. Camp did call and update me on this. Patient admits to feeling thirsty the past couple days however otherwise has limited complaints. Patient states she has been eating and drinking and has been taking her medications - Related Data Home Medications Medication Instructions Recorded Confirmed Venlafaxine HCl [Effexor XR] 225 mg PO DAILY 10/21/16 03/29/24 Pantoprazole Sodium [Protonix] 40 mg PO BID 04/06/20 03/29/24 Aspirin EC [Ecotrin Low Dose] 81 mg PO DAILY 10/03/22 03/29/24 Isosorbide Mononitrate ER [Imdur] 30 mg PO DAILY 04/10/23 03/29/24 Mirtazapine 7.5 mg PO HS 04/10/23 03/29/24 cilostazoL [Pletal] 100 mg PO BID 08/02/23 03/29/24 INSULIN LISPRO (HumaLOG) [humaLOG] See Protocol SQ AC-TID PRN 02/12/24 03/29/24 Insulin Glargine [Lantus Vial] 10 unit SQ DAILY 02/12/24 03/29/24 Cyanocobalamin [Vitamin B-12] 1,000 mcg PO TID 03/26/24 03/29/24 Levothyroxine Sodium [Synthroid] 25 mcg PO DAILY 03/29/24 03/29/24 Previous Rx's Medication Instructions Recorded Losartan [Cozaar] 50 mg PO DAILY #60 tab 08/05/23 Metoprolol Succinate (ER) [Toprol 25 mg PO DAILY #60 tab 08/05/23 XL] Linagliptin [Tradjenta] 5 mg PO DAILY #30 tab 09/05/23 Acetaminophen Tab [Tylenol] 650 mg PO Q6HR PRN tab 02/18/24 Folic Acid 1 mg PO DAILY tab 02/18/24 Midodrine [ProAmatine] 5 mg PO AC-TID #90 tab 02/18/24 Allergies Allergy/AdvReac Type Severity Reaction Status Date / Time grass pollen Allergy Unknown Verified 03/29/24 15:53 latex Allergy Rash/Hives Verified 03/29/24 15:53 Sulfa (Sulfonamide Allergy Rash/Hives/ Verified 03/29/24 16:06 Antibiotics) Swelling venom-honey bee Allergy Anaphylaxis Verified 03/29/24 15:53 prochlorperazine edisylate AdvReac Vomiting Verified 03/29/24 15:53 [From Compazine] Review of Systems ROS Statement: Those systems with pertinent positive or pertinent negative responses have been documented in the HPI. ROS Other: All systems not noted in ROS Statement are negative. Constitutional: Denies: fever Eyes: Denies: eye pain ENT: Denies: ear pain Respiratory: Denies: dyspnea Cardiovascular: Denies: chest pain Endocrine: Reports: fatigue, polydipsia Gastrointestinal: Denies: abdominal pain Past Medical History Past Medical History: Coronary Artery Disease (CAD), Cancer, COPD, CVA/TIA, Diabetes Mellitus, Deep Vein Thrombosis (DVT), Eye Disorder, GERD/Reflux, Hyperlipidemia, Hypertension, Myocardial Infarction (MS), Musculoskeletal Disorder, Neurologic Disorder, Renal Disease, Rheumatoid Arthritis (RA), Sleep Apnea/CPAP/BIPAP, Syncope, Thyroid Disorder Additional Past Medical History / Comment(s): 09/16/16 small bowel obstruction with surgery. Hx left renal cell carcinoma with partial nephrectomy. Hx CVA X4, last 5 yrs ago, no residual effects. Hx DVT left leg 7-8 yrs ago. Hypothyroidism. Chronic back pain, degenerative disc disease, restless leg syndrome, peripheral neuropathy. Hx UTI with sepsis Apr 2016 requiring PICC line insertion for IV antibiotics. Hx bilateral glaucoma. Hx syncope due to low blood sugars. No CPAP use. Migraines. Last Myocardial Infarction Date:: 2019 History of Any Multi-Drug Resistant Organisms: ESBL, MRSA, VRE Date of last positivie culture/infection: 05/07/16 ESBL, 05/15/16 VRE, MRSA 09/2017 - upper lip MDRO Source:: URINE E.COLI, EC GALLINARUM Past Surgical History: Appendectomy, Bowel Resection, Section, Heart Catheterization, Heart Catheterization With Stent, Hernia Repair Additional Past Surgical History / Comment(s): Exploratory laparotomy with lysis of adhesions, repair incarcerated incisional hernia with abdominal washout, thyroidectomy, partial left nephrectomy, colonoscopy, bilateral cataract removal with lens implants, Section X2, cardiac stent 04/06/2021. Past Anesthesia/Blood Transfusion Reactions: No Reported Reaction Date of Last Stent Placement:: 04/06/2021 Past Psychological History: Depression Smoking Status: Former smoker - Past Family History Sister(s) Family Medical History: Cancer, Deep Vein Thrombosis (DVT) Additional Family Medical History / Comment(s): Patient has one sister that from liver cancer. Brother(s) Family Medical History: Cancer, Deep Vein Thrombosis (DVT) Additional Family Medical History / Comment(s): Patient has 1 brother with past ETOH, past drug abuse, DVTs. She has a second brother that has from throat cancer. Daughter(s) Family Medical History: Diabetes Mellitus, Myocardial Infarction (MS) Additional Family Medical History / Comment(s): Daughter at 23 yrs old from massive MS. Father Family Medical History: Myocardial Infarction (MS) Additional Family Medical History / Comment(s): from MS at age 44. Mother Family Medical History: Cancer Additional Family Medical History / Comment(s): Breast cancer. General Exam Limitations: no limitations General appearance: alert, in no apparent distress Head exam: Present: atraumatic Eye exam: Present: normal appearance ENT exam: Present: mucous membranes dry Neck exam: Present: normal inspection Respiratory exam: Present: normal lung sounds bilaterally Cardiovascular Exam: Present: regular rate, normal rhythm GI/Abdominal exam: Present: soft. Absent: tenderness Extremities exam: Present: normal inspection Neurological exam: Present: alert, oriented X3 Psychiatric exam: Present: normal affect, normal mood Skin exam: Present: normal color Course Vital Signs 03/29/24 03/29/24 13:40 15:00 Temperature 97.9 F Pulse Rate 85 103 H Respiratory 18 18 Rate Blood Pressure 101/76 117/81 O2 Sat by Pulse 100 96 Oximetry EKG Findings - EKG Results: EKG: interpreted by ERMD ([facility]. Inferior and lateral T wave inversion), sinus rhythm, normal axis EKG shows: tachycardia Medical Decision Making - Medical Decision Making Was pt. sent in by a medical professional or institution (, PA, [employer]OUN[employer]ER, urgent care, hospital, or senior care...) When possible be specific @ -Patient was sent in by Dr. Camp Did you speak to anyone other than the patient for history (EMS, parent, family, police, friend...)? What history was obtained from this source @ -I did discuss case with Dr. Camp including his concerns for electrolytes Did you review nursing and triage notes (agree or disagree)? Why? @ -I reviewed and agree with nursing and triage notes Were old charts reviewed (outside hosp., previous admission, EMS record, old EKG, old radiological studies, urgent care reports/EKG's, senior care records)? Report findings @ -Multiple previous labs reviewed including renal function which is somewhat similar to previous however different from a month ago Differential Diagnosis (chest pain, altered mental status, abdominal pain women, abdominal pain men, vaginal bleeding, weakness, fever, dyspnea, syncope, headache, dizziness, GI bleed, back pain, seizure, CVA, palpatations, mental health, musculoskeletal)? @ -Differential Weakness: Hypoglycemia, shock, sepsis, hyponatremia, anemia, infection, MS, ETOH, adverse medicine reaction, overdose, stroke, this is not meant to be an all-inclusive list. EKG interpreted by me (3pts min.). @ -As above X-rays interpreted by me (1pt min.). @ -Chest x-ray does not reveal acute abnormality CT interpreted by me (1pt min.). @ -None done U/S interpreted by me (1pt. min.). @ -None done What testing was considered but not performed or refused? (CT, X-rays, U/S, labs)? Why? @ -None What meds were considered but not given or refused? Why? @ -None Did you discuss the management of the patient with other professionals (professionals i.e. DrSidney, PA, [employer] CAR[employer]ER, lab, RT, psych nurse, social security assessor, bull gang supervisor, teacher, gift officer, family preservation caseworker)? Give summary @ -Case discussed with Dr. Seo who will admit covering Dr. Elder Was smoking cessation discussed for >3mins.? @ -No Was critical care preformed (if so, how long)? @ -31 minutes critical care time Were there social determinants of health that impacted care today? How? (Homel essness, low income, unemployed, alcoholism, drug addiction, transportation, low edu. Level, literacy, decrease access to med. care, [facility], rehab)? @ -No Was there de-escalation of care discussed even if they declined (Discuss DNR or withdrawal of care, Hospice)? DNR status @ -No What co-morbidities impacted this encounter? (DM, HTN, Smoking, COPD, CAD, Cancer, CVA, ARF, Chemo, Hep., AIDS, mental health diagnosis, sleep apnea, morbid obesity)? @ -History of diabetes Was patient admitted / discharged? Hospital course, mention meds given and route, prescriptions, significant lab abnormalities, going to OR and other pertinent info. @ -Patient presents with polydipsia and generalized weakness. Evaluation concerning for DKA. Patient will be admitted. Admission orders written. Undiagnosed new problem with uncertain prognosis? @ -No Drug Therapy requiring intensive monitoring for toxicity (Heparin, Nitro, Insulin, Cardizem)? @ -No Were any procedures done? @ -No Diagnosis/symptom? @ -Diabetic ketoacidosis Acute, or Chronic, or Acute on Chronic? @ -Acute Uncomplicated (without systemic symptoms) or Complicated (systemic symptoms)? @ -Default Side effects of treatment? @ -No Exacerbation, Progression, or Severe Exacerbation? @ -No Poses a threat to life or bodily function? How? (Chest pain, USA, MS, pneumonia, PE, COPD, DKA, ARF, appy, cholecystitis, CVA, Diverticulitis, Homicidal, Suicidal, threat to staff... and all critical care pts) @ -Threat to metabolic function - Lab Data Result diagrams: 03/29/24 14:40 03/29/24 14:40 Lab Results 03/29/24 03/29/24 03/29/24 Range/Units 14:40 14:40 14:40 WBC 8.5 (3.8-10.6) k/uL RBC 4.00 (3.80-5.40) m/uL Hgb 12.0 (11.4-16.0) gm/dL Hct 39.9 (34.0-46.0) % MCV 99.6 D (80.0-100.0) fL MCH 30.0 (25.0-35.0) pg MCHC 30.1 L (31.0-37.0) g/dL RDW 15.0 (11.5-15.5) % Plt Count 266 (150-450) k/uL MPV 9.1 Neutrophils % 88 % Lymphocytes % 8 % Monocytes % 3 % Eosinophils % 0 % Basophils % 0 % Neutrophils # 7.5 (1.3-7.7) k/uL Lymphocytes # 0.7 L (1.0-4.8) k/uL Monocytes # 0.3 (0-1.0) k/uL Eosinophils # 0.0 (0-0.7) k/uL Basophils # 0.0 (0-0.2) k/uL Hypochromasia Marked Macrocytosis Slight PT 9.5 L (10.0-12.5) sec INR 0.8 (<1.2) APTT 21.8 L (22.0-30.0) sec VBG pH (7.31-7.41) VBG pCO2 (37-51) mmHg VBG HCO3 (24-28) mmol/L Sodium 131 L (137-145) mmol/L Potassium 5.7 H (3.5-5.1) mmol/L Chloride 86 L (98-107) mmol/L Carbon Dioxide <5 L* (22-30) mmol/L Anion Gap mmol/L BUN 37 H (7-17) mg/dL Creatinine 1.79 H (0.52-1.04) mg/dL Est GFR (CKD-EPI)AfAm 34 (>60 ml/min/1.73 sqM) Est GFR (CKD-EPI)NonAf 30 (>60 ml/min/1.73 sqM) Glucose 988 H* (74-99) mg/dL Plasma Lactic Acid Ab (0.7-2.0) mmol/L Calcium 9.2 (8.4-10.2) mg/dL Magnesium 2.9 H (1.6-2.3) mg/dL Total Bilirubin 0.6 (0.2-1.3) mg/dL AST 15 (14-36) U/L ALT 10 (4-34) U/L Alkaline Phosphatase 129 H (38-126) U/L Troponin I (0.000-0.034) ng/mL Total Protein 7.2 (6.3-8.2) g/dL Albumin 4.8 (3.5-5.0) g/dL Acetone, Qual Positive (Negative) 03/29/24 03/29/24 03/29/24 Range/Units 14:40 14:40 14:45 WBC (3.8-10.6) k/uL RBC (3.80-5.40) m/uL Hgb (11.4-16.0) gm/dL Hct (34.0-46.0) % MCV (80.0-100.0) fL MCH (25.0-35.0) pg MCHC (31.0-37.0) g/dL RDW (11.5-15.5) % Plt Count (150-450) k/uL MPV Neutrophils % % Lymphocytes % % Monocytes % % Eosinophils % % Basophils % % Neutrophils # (1.3-7.7) k/uL Lymphocytes # (1.0-4.8) k/uL Monocytes # (0-1.0) k/uL Eosinophils # (0-0.7) k/uL Basophils # (0-0.2) k/uL Hypochromasia Macrocytosis PT (10.0-12.5) sec INR (<1.2) APTT (22.0-30.0) sec VBG pH 7.05 L* (7.31-7.41) VBG pCO2 31 L (37-51) mmHg VBG HCO3 9 L* (24-28) mmol/L Sodium (137-145) mmol/L Potassium (3.5-5.1) mmol/L Chloride (98-107) mmol/L Carbon Dioxide (22-30) mmol/L Anion Gap mmol/L BUN (7-17) mg/dL Creatinine (0.52-1.04) mg/dL Est GFR (CKD-EPI)AfAm (>60 ml/min/1.73 sqM) Est GFR (CKD-EPI)NonAf (>60 ml/min/1.73 sqM) Glucose (74-99) mg/dL Plasma Lactic Acid Ab 2.1 H* (0.7-2.0) mmol/L Calcium (8.4-10.2) mg/dL Magnesium (1.6-2.3) mg/dL Total Bilirubin (0.2-1.3) mg/dL AST (14-36) U/L ALT (4-34) U/L Alkaline Phosphatase (38-126) U/L Troponin I <0.012 (0.000-0.034) ng/mL Total Protein (6.3-8.2) g/dL Albumin (3.5-5.0) g/dL Acetone, Qual (Negative) Critical Care Time Critical Care Time: Yes Disposition Clinical Impression: Diabetic ketoacidosis Disposition: ADMITTED IP TO THIS HOSP Is patient prescribed a controlled substance at d/c from ED?: No Referrals: Sahra Elder MD [Primary Care Provider] - 1-2 days Time of Disposition: 16:55
[2024-03-29] MEDS: SODIUM CHLORIDE 0.9% 1,000 ML IV STA ×2 (14:45→15:59)
[2024-03-29 14:58] LABS: ALT 10 U/L (4-34); AST 15 U/L (14-36); African American GFR (CKD) 34 (>60 ml/min/1.73 sqM); Albumin 4.8 g/dL (3.5-5.0); Alkaline Phosphatase 129 U/L (38-126); Blood Urea Nitrogen 37 mg/dL (7-17); Calcium 9.2 mg/dL (8.4-10.2); Chloride 86 mmol/L (98-107); Magnesium 2.9 mg/dL (1.6-2.3); Non-African American GFR(CKD) 30 (>60 ml/min/1.73 sqM); Potassium 5.7 mmol/L (3.5-5.1); Sodium 131 mmol/L (137-145); Total Bilirubin 0.6 mg/dL (0.2-1.3); Total Protein 7.2 g/dL (6.3-8.2)
--- NOTE | 2024-03-29 15:04 | XR ---
EXAMINATION TYPE: XR chest 2V DATE OF EXAM: 03/29/2024 COMPARISON: 08/02/2023 HISTORY: Weakness TECHNIQUE: Frontal and lateral views of the chest are obtained. FINDINGS: There is no focal air space opacity, pleural effusion, or pneumothorax seen. The cardiac silhouette size is within normal limits. The osseous structures are intact. IMPRESSION: No acute cardiopulmonary process. [facility], , 03/29/2024 3:02 PM
[2024-03-29 15:10] LABS: INR 0.8 (<1.2); Partial Thromboplastin Time 21.8 sec (22.0-30.0); Prothrombin Time 9.5 sec (10.0-12.5)
[2024-03-29 15:13] LABS: Carbon Dioxide <5 mmol/L (22-30); Glucose 988 mg/dL (74-99)
[2024-03-29 15:27] LABS: Basophils % (A) 0 %; Eosinophils % (A) 0 %; HCT 39.9 % (34.0-46.0); Hypochromasia Marked; Lymphocytes # (A) 0.7 k/uL (1.0-4.8); Lymphocytes % (A) 8 %; MCHC 30.1 g/dL (31.0-37.0); Macrocytosis Slight; Mean Platelet Volume 9.1; Monocytes # (A) 0.3 k/uL (0-1.0); Monocytes % (A) 3 %; Neutrophils # (A) 7.5 k/uL (1.3-7.7); Neutrophils % (A) 88 %; Platelet Count 266 k/uL (150-450); WBC 8.5 k/uL (3.8-10.6)
[2024-03-29 15:28] LABS: VBG PH 7.05 (7.31-7.41)
[2024-03-29 15:34] LABS: MCV 99.6 fL (80.0-100.0)
[2024-03-29] MEDS: INSULIN REGULAR 100 UNIT in SODIUM CHLORIDE 0.9% 100 ML IV SCH (17:30)
[2024-03-29] MEDS: INSULIN REGULAR BOLUS (FROM DRIP BAG) IV ONE (17:32)
[2024-03-29] MEDS: SODIUM CHLORIDE 0.9% 1,000 ML IV ONE (17:33)
[2024-03-29] MEDS: SODIUM CHLORIDE 0.9% 1,000 ML IV SCH (17:34)
[2024-03-29] MEDS: PANTOPRAZOLE 40 MG TABLET PO SCH (17:38)
[2024-03-29] MEDS: MIDODRINE 5 MG TAB PO SCH (17:39)
[2024-03-29 18:37] LABS: Glucose,Whole Blood >600 mg/dL (70-110)
[2024-03-29 19:20] LABS: Appearance,Urine Clear (Clear); Bacteria,Urine Rare /hpf; Bilirubin,Urine Negative (Negative); Blood,Urine Trace (Negative); Budding Yeast,Urine Occasional /hpf; Color,Urine Colorless; Glucose,Urine (UA) 4+ (Negative); Leukocyte Esterase,Urine Negative (Negative); Mucus,Urine Rare /hpf; Nitrite,Urine Negative (Negative); Protein,Urine Negative (Negative); RBC,Urine 10 /hpf (0-5); Specific Gravity,Urine 1.024 (1.001-1.035); Squamous Epithelial Cell,Urine 2 /hpf (0-4); Urobilinogen,Urine <2.0 mg/dL (<2.0); WBC,Urine 3 /hpf (0-5)
[2024-03-29 19:27] LABS: Ketones,Urine 3+ (Negative)
[2024-03-29 19:32] LABS: Glucose,Whole Blood >600 mg/dL (70-110)
[2024-03-29 20:24] LABS: Glucose,Whole Blood >600 mg/dL (70-110)
[2024-03-29 20:43] LABS: African American GFR (CKD) 38 (>60 ml/min/1.73 sqM); Anion Gap 33 mmol/L; Blood Urea Nitrogen 41 mg/dL (7-17); Chloride 100 mmol/L (98-107); Non-African American GFR(CKD) 33 (>60 ml/min/1.73 sqM); Phosphorus 3.3 mg/dL (2.5-4.5); Sodium 139 mmol/L (137-145)
[2024-03-29 20:57] LABS: Carbon Dioxide 6 mmol/L (22-30); Glucose 603 mg/dL (74-99)
[2024-03-29] MEDS: CYANOCOBALAMIN 500 MCG TAB PO SCH (21:42)
[2024-03-29 21:43] LABS: Glucose,Whole Blood 437 mg/dL (70-110)
[2024-03-29] MEDS: cilostazoL 100 MG TAB PO SCH (21:43)
[2024-03-29] MEDS: MIRTAZAPINE 15 MG TAB PO SCH (21:43)
[2024-03-29 23:12] LABS: Glucose,Whole Blood 341 mg/dL (70-110)
[2024-03-30 00:03] LABS: Glucose,Whole Blood 395 mg/dL (70-110)
[2024-03-30 01:00] LABS: Glucose,Whole Blood 378 mg/dL (70-110)
[2024-03-30 01:02] LABS: African American GFR (CKD) 47 (>60 ml/min/1.73 sqM); Anion Gap 22 mmol/L; Blood Urea Nitrogen 45 mg/dL (7-17); Carbon Dioxide 12 mmol/L (22-30); Chloride 107 mmol/L (98-107); Glucose 303 mg/dL (74-99); Non-African American GFR(CKD) 40 (>60 ml/min/1.73 sqM); Sodium 141 mmol/L (137-145)
[2024-03-30 01:05] LABS: Phosphorus 2.3 mg/dL (2.5-4.5); Potassium 4.4 mmol/L (3.5-5.1)
[2024-03-30 02:03] LABS: Glucose,Whole Blood 238 mg/dL (70-110)
[2024-03-30] MEDS ORDERED: D5W WITH KCL 20 MEQ/L 1,000 ML IV SCH (02:30)
[2024-03-30 03:08] LABS: Glucose,Whole Blood 226 mg/dL (70-110)
[2024-03-30] MEDS: D5-0.45% NACL WITH KCL 20MEQ/L 1,000 ML IV SCH (03:24)
[2024-03-30 04:15] LABS: Glucose,Whole Blood 220 mg/dL (70-110)
[2024-03-30 05:04] LABS: Glucose,Whole Blood 236 mg/dL (70-110)
[2024-03-30 06:03] LABS: Glucose,Whole Blood 363 mg/dL (70-110)
[2024-03-30] MEDS: LEVOTHYROXINE 25 MCG TAB PO SCH (06:17)
[2024-03-30 07:04] LABS: Glucose,Whole Blood 277 mg/dL (70-110)
[2024-03-30 07:37] LABS: ALT 8 U/L (4-34); AST 23 U/L (14-36); African American GFR (CKD) 47 (>60 ml/min/1.73 sqM); Albumin 3.8 g/dL (3.5-5.0); Alkaline Phosphatase 99 U/L (38-126); Anion Gap 13 mmol/L; Blood Urea Nitrogen 48 mg/dL (7-17); Calcium 8.8 mg/dL (8.4-10.2); Carbon Dioxide 22 mmol/L (22-30); Chloride 107 mmol/L (98-107); Glucose 220 mg/dL (74-99); Non-African American GFR(CKD) 40 (>60 ml/min/1.73 sqM); Potassium 3.6 mmol/L (3.5-5.1); Sodium 142 mmol/L (137-145); Total Bilirubin 0.5 mg/dL (0.2-1.3); Total Protein 6.2 g/dL (6.3-8.2)
--- NOTE | 2024-03-30 07:42 | P.HPIM ---
History of Present Illness H&P Date: 03/29/24 History of present illness: 64-year-old woman for office patient with active medical history of insulin- dependent diabetes, coronary disease, history of arthralgia, chronic lower back pain, previous history of CVA and TIA, coagulopathy, history of DVT, hypertension, hyperlipidemia, recurrent UTI with resistant infection to ESBL and MRSA who was hospitalized 3 weeks ago with severe hyperosmotic hyperglycemia nonketotic at the time with blood sugar of 1192 was in the ICU for few days before finally was transferred out of the ICU and up going to subacute rehab [facility] especially with the complication related to her current medical history. Patient has been home and has been back to see her primary care physician and trim setter helper apparently will schedule with her trim setter helper to go for aortogram pretesting was done and showed blood sugar of over 1000 with abnormal sodium and creatinine patient was called and directed to go to the emergency department for the above problem. Was seen and evaluated Initial blood sugar was over 600 988, creatinine 1.79 with GFR down to 30 with GFR was above 70 when she left the hospital around March 05. Patient was started on DKA protocol will consult nephrology continue DKA management with IV insulin along with hydration till her blood sugar is down to below 200. Sadly her pH was 7.05 and HCO3 of 9 sodium 131 potassium 5.7 with a chloride of 86. Patient does not have a clear answer to why her blood sugar high she keep referring to herself and she is doing everything possible and asked by her drapery counselor and primary care when the truth of the matter that even when she of the hospital last time was only using a few units of longer acting insulin and a few units of NovoLog AC meals plus sliding scales coverage for total of insulin hardly exceed 40 units a day. Was started on SGLT2 product which in creased out of UTI but has no UTI since. Her procedure with her trim setter helper was expected from the last few admission. REVIEW OF SYSTEMS: CONSTITUTIONAL: Well-developed still incoherent drowsy and sluggish not answering question appropriately does not look in any distress. EYES: No icterus sclerae, no conjunctivitis. EARS, NOSE, MOUTH, THROAT, and FACE: No sore throat, lymphadenopathy, carotid bruits or deformity. RESPIRATORY: No SOB cough or wheezes. CARDIOVASCULAR: No CP, Palpitation, PND, Orthopnea, or angina. GASTROINTESTINAL: No Abd pain, Nausea or vomiting, no Diarrhea or constipation, No GI Bleed, no distention or masses. GENITOURINARY: Mostly incontinence no kidney stone or bloody urine. INTEGUMENT/BREAST: Generalized muscle and joint pain. HEMATOLOGIC/LYMPHATIC: Negative for bleed or purpura. MUSCULOSKELTAL: Myalgia and arthralgia with lower back pain. NEURLOGICAL: Had seizure activity with incoherence significant cephalopathy and not been able to answer any question appropriately at this point. BEHAVIORAL/PSYCH: Negative. ENDOCRINE: Negative. PHYSICAL EXAMINATION: General Appearance: She is opening her eyes not able to answer yet does not look in any respiratory distress. Neck HEENT: Supple, no lymphadenopathy, no thyroid enlargement, no carotid bruits. Lungs: Clear to auscultation without crackles or wheezes no rhonchi, no deformity. Chest Wall: Normal expansion with slight tenderness, slightly at resuscitation. And no deformity was found on exam, no costochondral pain or discomfort. Heart: Regular rate and rhythm, S1, S2 normal, no murmur, rub or gallop. Back: Symmetric, no curvature, ROM normal, no CVA tenderness. Abdomen: Soft, non-tender, bowel sounds active all four quadrants, no masses, no organomegaly. Extremities: Extremities normal, atraumatic, no cyanosis or edema. Pulses: 2+ and symmetric. Skin: Skin color, texture, tugor normal, no rashes or lesions. Neurologic: Alert significantly confused cranial nerves II through XII intact, generalized weakness bilaterally, not been able to do gait exam. ASSESSMENT AND PLAN: _Severe hyperosmolar lactic acidosis DKA:. Patient on DKA protocol continue insulin drip along with bicarbonate and IV hydration continue supportive care with IV fluid till blood sugar dropped around 200 and will be switching patient by then to D5 along with start her back on short and long-acting insulin at the time with Accu-Chek to be done every 2 hours for the next 24 hours. Rely on the pathology with it from last admission probably can duplicate the same amount of insulin short and long-acting within 24 hours which should control her blood sugar and keep it well-managed. _Lactic acidosis, secondary to DKA, treat underlying disease continue to watch blood gas and pH along with bicarbonate level. _Acute kidney injury: With BUN 37 creatinine 1.79 is probably caused by DKA r efer patient to nephrology continue hydration watch her urine output carefully. _Recurrent angina and significant chest pain with known coronary artery disease with multiple blockage was supposed to go for an angiogram mostly heart catheter and a preop however discovered this foot sugar to be low 80s sadly patient blood sugar was stabilized from last time was supposed to be compliant with current dose of insulin and oral hypoglycemic agent keep it under control. Altered mental status: Mostly from severe hyperglycemia and hyponatremia with no seizure activity continue to correct recurrent problem and hopefully her symptoms will improve. _Severe hypothyroidism: Again most likely from noncompliant to medication 100 mcg of levothyroxine can be given IV and switch patient to oral soon as she is able to swallow. Multiple coronary artery disease last angiogram was in June 06, 2023 with mild LAD mild circumflex completely blockage in the RCA. The patient will be on medical management only. Hypothyroidism: Continue levothyroxine 250 mcg daily. Will continue medicatio n. Hyperlipidemia: Remain on rosuvastatin 40 mg a day with LDL has been below 70. COPD: She is on her updraft treatment does not require any oxygen she is on steroids is inhaler as well. Mild PAD has been on Pletal 100 mg twice a day. Hypertension: Continue losartan 25 mg a day and metoprolol succinate 50 mg daily. Chronic diabetic neuropathy: Has been on gabapentin 600 mg 3 times a day. Will hold off on gabapentin for the next 24 hours. Chronic depression: Has been on Effexor XR 225 mcg daily along with mirtazapine 7.5 mg at bedtime. Gastroparesis with recurrent episode of nausea and vomiting has been on Zofran, Protonix and Reglan. GI prophylaxis: Remain on pantoprazole. DVT prophylaxis: Knee-high ALEXANDRE hose and early mobilization. CODE STATUS: Full code. Admit patient to the inpatient service for more than 2 night stay. Past Medical History Past Medical History: Coronary Artery Disease (CAD), Cancer, COPD, CVA/TIA, Diabetes Mellitus, Deep Vein Thrombosis (DVT), Eye Disorder, GERD/Reflux, Hyperlipidemia, Hypertension, Myocardial Infarction (AL), Musculoskeletal Disorder, Neurologic Disorder, Renal Disease, Rheumatoid Arthritis (RA), Sleep Apnea/CPAP/BIPAP, Syncope, Thyroid Disorder Additional Past Medical History / Comment(s): 09/16/16 small bowel obstruction with surgery. Hx left renal cell carcinoma with partial nephrectomy. Hx CVA X4, last 5 yrs ago, no residual effects. Hx DVT left leg 7-8 yrs ago. Hypothyroidism. Chronic back pain, degenerative disc disease, restless leg syndrome, peripheral neuropathy. Hx UTI with sepsis Apr 2016 requiring PICC line insertion for IV antibiotics. Hx bilateral glaucoma. Hx syncope due to low blood sugars. No CPAP use. Migraines. Last Myocardial Infarction Date:: 2019 History of Any Multi-Drug Resistant Organisms: ESBL, MRSA, VRE Date of last positivie culture/infection: 05/07/16 ESBL, 05/15/16 VRE, MRSA 09/2017 - upper lip MDRO Source:: URINE E.COLI, EC GALLINARUM Past Surgical History: Appendectomy, Bowel Resection, Section, Heart Catheterization, Heart Catheterization With Stent, Hernia Repair Additional Past Surgical History / Comment(s): Exploratory laparotomy with lysis of adhesions, repair incarcerated incisional hernia with abdominal washout, thyroidectomy, partial left nephrectomy, colonoscopy, bilateral cataract removal with lens implants, Section X2, cardiac stent 04/06/2021. Past Anesthesia/Blood Transfusion Reactions: No Reported Reaction Date of Last Stent Placement:: 04/06/2021 Past Psychological History: Depression Smoking Status: Former smoker - Past Family History Sister(s) Family Medical History: Cancer, Deep Vein Thrombosis (DVT) Additional Family Medical History / Comment(s): Patient has one sister that from liver cancer. Brother(s) Family Medical History: Cancer, Deep Vein Thrombosis (DVT) Additional Family Medical History / Comment(s): Patient has 1 brother with past ETOH, past drug abuse, DVTs. She has a second brother that has from throat cancer. Daughter(s) Family Medical History: Diabetes Mellitus, Myocardial Infarction (AL) Additional Family Medical History / Comment(s): Daughter at 23 yrs old from massive AL. Father Family Medical History: Myocardial Infarction (AL) Additional Family Medical History / Comment(s): from AL at age 44. Mother Family Medical History: Cancer Additional Family Medical History / Comment(s): Breast cancer. Medications and Allergies Home Medications Medication Instructions Recorded Confirmed Type Venlafaxine HCl [Effexor XR] 225 mg PO DAILY 10/21/16 03/29/24 History Pantoprazole Sodium [Protonix] 40 mg PO BID 04/06/20 03/29/24 History Aspirin EC [Ecotrin Low Dose] 81 mg PO DAILY 10/03/22 03/29/24 History Isosorbide Mononitrate ER [Imdur] 30 mg PO DAILY 04/10/23 03/29/24 History Mirtazapine 7.5 mg PO HS 04/10/23 03/29/24 History cilostazoL [Pletal] 100 mg PO BID 08/02/23 03/29/24 History Losartan [Cozaar] 50 mg PO DAILY #60 tab 08/05/23 03/29/24 Rx Metoprolol Succinate (ER) [Toprol 25 mg PO DAILY #60 tab 08/05/23 03/29/24 Rx XL] Linagliptin [Tradjenta] 5 mg PO DAILY #30 tab 09/05/23 03/29/24 Rx INSULIN LISPRO (HumaLOG) [humaLOG] See Protocol SQ AC-TID PRN 02/12/24 03/29/24 History Insulin Glargine [Lantus Vial] 10 unit SQ DAILY 02/12/24 03/29/24 History Acetaminophen Tab [Tylenol] 650 mg PO Q6HR PRN tab 02/18/24 03/29/24 Rx Folic Acid 1 mg PO DAILY tab 02/18/24 03/29/24 Rx Midodrine [ProAmatine] 5 mg PO AC-TID #90 tab 02/18/24 03/29/24 Rx Cyanocobalamin [Vitamin B-12] 1,000 mcg PO TID 03/26/24 03/29/24 History Levothyroxine Sodium [Synthroid] 25 mcg PO DAILY 03/29/24 03/29/24 History Allergies Allergy/AdvReac Type Severity Reaction Status Date / Time grass pollen Allergy Unknown Verified 03/29/24 15:53 latex Allergy Rash/Hives Verified 03/29/24 15:53 Sulfa (Sulfonamide Allergy Rash/Hives/ Verified 03/29/24 16:06 Antibiotics) Swelling venom-honey bee Allergy Anaphylaxis Verified 03/29/24 15:53 prochlorperazine edisylate AdvReac Vomiting Verified 03/29/24 15:53 [From Compazine] Physical Exam Vitals: Vital Signs Temp Pulse Resp BP Pulse Ox 03/29/24 18:29 97.1 F L 114 H 24 122/81 03/29/24 17:40 112 H 24 110/84 96 03/29/24 15:00 103 H 18 117/81 96 03/29/24 13:40 97.9 F 85 18 101/76 100 Intake and Output 03/29/24 03/29/24 03/29/24 06:59 14:59 22:59 Other: Weight 50.802 kg Results CBC & Chem 7: 03/29/24 14:40 03/29/24 14:40 Labs: Abnormal Lab Results - Last 24 Hours (Table) 03/29/24 03/29/24 03/29/24 Range/Units 14:40 14:40 14:40 MCHC 30.1 L (31.0-37.0) g/dL Lymphocytes # 0.7 L (1.0-4.8) k/uL PT 9.5 L (10.0-12.5) sec APTT 21.8 L (22.0-30.0) sec VBG pH (7.31-7.41) VBG pCO2 (37-51) mmHg VBG HCO3 (24-28) mmol/L Sodium 131 L (137-145) mmol/L Potassium 5.7 H (3.5-5.1) mmol/L Chloride 86 L (98-107) mmol/L Carbon Dioxide <5 L* (22-30) mmol/L BUN 37 H (7-17) mg/dL Creatinine 1.79 H (0.52-1.04) mg/dL Glucose 988 H* (74-99) mg/dL POC Glucose (mg/dL) (70-110) mg/dL Plasma Lactic Acid Ab (0.7-2.0) mmol/L Magnesium 2.9 H (1.6-2.3) mg/dL Alkaline Phosphatase 129 H (38-126) U/L Urine Glucose (UA) (Negative) Urine Ketones (Negative) Urine Blood (Negative) Urine RBC (0-5) /hpf Urine Bacteria (None) /hpf Urine Mucus (None) /hpf Urine Yeast (Budding) (None) /hpf 03/29/24 03/29/24 03/29/24 Range/Units 14:40 14:45 18:34 MCHC (31.0-37.0) g/dL Lymphocytes # (1.0-4.8) k/uL PT (10.0-12.5) sec APTT (22.0-30.0) sec VBG pH 7.05 L* (7.31-7.41) VBG pCO2 31 L (37-51) mmHg VBG HCO3 9 L* (24-28) mmol/L Sodium (137-145) mmol/L Potassium (3.5-5.1) mmol/L Chloride (98-107) mmol/L Carbon Dioxide (22-30) mmol/L BUN (7-17) mg/dL Creatinine (0.52-1.04) mg/dL Glucose (74-99) mg/dL POC Glucose (mg/dL) >600 H* (70-110) mg/dL Plasma Lactic Acid Ab 2.1 H* (0.7-2.0) mmol/L Magnesium (1.6-2.3) mg/dL Alkaline Phosphatase (38-126) U/L Urine Glucose (UA) (Negative) Urine Ketones (Negative) Urine Blood (Negative) Urine RBC (0-5) /hpf Urine Bacteria (None) /hpf Urine Mucus (None) /hpf Urine Yeast (Budding) (None) /hpf 03/29/24 03/29/24 03/29/24 Range/Units 19:04 19:30 20:23 MCHC (31.0-37.0) g/dL Lymphocytes # (1.0-4.8) k/uL PT (10.0-12.5) sec APTT (22.0-30.0) sec VBG pH (7.31-7.41) VBG pCO2 (37-51) mmHg VBG HCO3 (24-28) mmol/L Sodium (137-145) mmol/L Potassium (3.5-5.1) mmol/L Chloride (98-107) mmol/L Carbon Dioxide (22-30) mmol/L BUN (7-17) mg/dL Creatinine (0.52-1.04) mg/dL Glucose (74-99) mg/dL POC Glucose (mg/dL) >600 H* >600 H* (70-110) mg/dL Plasma Lactic Acid Ab (0.7-2.0) mmol/L Magnesium (1.6-2.3) mg/dL Alkaline Phosphatase (38-126) U/L Urine Glucose (UA) 4+ H (Negative) Urine Ketones 3+ H (Negative) Urine Blood Trace H (Negative) Urine RBC 10 H (0-5) /hpf Urine Bacteria Rare H (None) /hpf Urine Mucus Rare H (None) /hpf Urine Yeast (Budding) Occasional H (None) /hpf
[2024-03-30 07:44] LABS: HCT 33.5 % (34.0-46.0); HGB 11.2 gm/dL (11.4-16.0); MCH 29.9 pg (25.0-35.0); MCHC 33.5 g/dL (31.0-37.0); Mean Platelet Volume 7.7; Platelet Count 204 k/uL (150-450); RBC 3.74 m/uL (3.80-5.40); RDW 15.1 % (11.5-15.5); WBC 5.1 k/uL (3.8-10.6)
[2024-03-30 07:47] LABS: MCV 89.5 fL (80.0-100.0)
[2024-03-30 08:07] LABS: Glucose,Whole Blood 184 mg/dL (70-110)
[2024-03-30] MEDS: INSULIN ASPART (NovoLOG) 100 UNIT/ML VIAL SQ SCH ×3 (08:08→17:30)
[2024-03-30] MEDS: ONDANSETRON 4 MG/2 ML VIAL IM STA (08:13)
[2024-03-30] MEDS: METOPROLOL SUCCINATE (ER) 25 MG TAB.ER.24H PO SCH (08:14)
[2024-03-30] MEDS: INSULIN DETEMIR (LEVEMIR) 100 UNIT/ML SYR SQ SCH (08:14)
[2024-03-30] MEDS: ISOSORBIDE MONONITRATE ER 30 MG TAB.ER.24H PO SCH (08:14)
[2024-03-30] MEDS: LINAGLIPTIN 5 MG TABLET PO SCH (08:14)
[2024-03-30] MEDS: LOSARTAN 50 MG TAB PO SCH (08:14)
[2024-03-30] MEDS: FOLIC ACID 1 MG TAB PO SCH (08:14)
[2024-03-30] MEDS: ASPIRIN 81 MG PO SCH (08:14)
[2024-03-30] MEDS ORDERED: INSULIN DETEMIR (LEVEMIR) 100 UNIT/ML SYR SQ SCH (09:00)
[2024-03-30 09:06] LABS: Glucose,Whole Blood 194 mg/dL (70-110)
[2024-03-30] MEDS: VENLAFAXINE HCL ER 75 MG CAP PO SCH (09:21)
[2024-03-30 10:00] LABS: Glucose,Whole Blood 196 mg/dL (70-110)
[2024-03-30 11:06] LABS: Glucose,Whole Blood 150 mg/dL (70-110)
[2024-03-30 11:24] LABS: African American GFR (CKD) 46 (>60 ml/min/1.73 sqM); Anion Gap 8 mmol/L; Blood Urea Nitrogen 48 mg/dL (7-17); Calcium 8.6 mg/dL (8.4-10.2); Carbon Dioxide 23 mmol/L (22-30); Chloride 108 mmol/L (98-107); Glucose 156 mg/dL (74-99); Non-African American GFR(CKD) 40 (>60 ml/min/1.73 sqM); Potassium 3.8 mmol/L (3.5-5.1); Sodium 139 mmol/L (137-145)
[2024-03-30 11:29] LABS: Phosphorus 0.9 mg/dL (2.5-4.5)
[2024-03-30 12:05] LABS: Glucose,Whole Blood 148 mg/dL (70-110)
[2024-03-30 12:38] LABS: Glucose,Whole Blood 122 mg/dL (70-110)
[2024-03-30] MEDS: SODIUM CHLORIDE 0.9% 1,000 ML IV ONE (13:30)
[2024-03-30] MEDS ORDERED: Phosphorus Replacement Protoco 1 EACH MISC MISCELLANE PRN (14:28)
[2024-03-30 14:29] LABS: Appearance,Urine Cloudy (Clear); Bacteria,Urine Many /hpf; Bilirubin,Urine 1+ (Negative); Blood,Urine Trace (Negative); Color,Urine Yellow; Glucose,Urine (UA) 4+ (Negative); Granular Casts,Urine 2 /lpf (0); Hyaline Casts,Urine 9 /lpf (0-2); Leukocyte Esterase,Urine Large (Negative); Mucus,Urine Occasional /hpf; Nitrite,Urine Negative (Negative); PH, Urine 5.5 (5.0-8.0); Protein,Urine 1+ (Negative); RBC,Urine 4 /hpf (0-5); Specific Gravity,Urine 1.019 (1.001-1.035); Squamous Epithelial Cell,Urine 3 /hpf (0-4); WBC,Urine >182 /hpf (0-5)
--- NOTE | 2024-03-30 14:29 | P.CNPUL ---
History of Present Illness Consult date: 03/30/24 Chief complaint: Hypotension History of present illness: This is a 64-year-old female patient with extensive number of medical problems and comorbidities who was supposed to have an aortogram on outpatient basis. Upon arrival to the hospital, the patient was found to be in DKA. Noted the patient is diabetic and she is insulin-dependent. She was in anion gap metabolic acidosis. Her initial anion gap was her 33 with a serum bicarb level of 6. BUN was 41 with a creatinine of 1.6. Blood sugar was 603. The patient was not admitted to the intensive care unit. The patient was managed on the medical floor and subsequently, the anion gap closed and this morning, the gap was down to 8 with a bicarb level of 23. BUN is at 48 with a creatinine of 1.4. Nevertheless, the patient became hypotensive. Systolic blood pressure dropped in the 70s. The heart rate was sinus in the mid 80s. Afebrile. No nausea. No emesis. No chest pain. No altered mentation and the patient was feeling weak and lethargic. Based on that, the patient got transferred to the intensive care unit. Currently she is on no pressors and the patient is being resuscitated with IV fluids. A total of 2 L of normal saline will be given immediately. Phosphorus level is at 0.9 and needs to be replaced. Potassium level is at 3.8. The white cell count is 5.1 with a hemoglobin 11.2 and a platelet count of 2 4. She is known to have extensive number of medical problems and comorbidities and this includes insulin-dependent diabetes mellitus, coronary artery disease, previous history of CVA, history of left renal carcinoma with partial nephrectomy, history of DVT of the left lower extremity approximately 7 to 8 years ago, chronic back pain degenerative arthritis along with peripheral neuropathy and restless leg and previous history of infection with a ESBL producing E. coli. She is also noted rheumatoid arthritis, hypertension, hyperlipidemia and peripheral vascular disease and the patient has stenosis of the short segment of the right [employer] as noted on a recent CTA of the aorta. For now, the patient is in the intensive care unit regarding hypotension. Review of Systems Constitutional: Reports fatigue, Reports weakness Eyes: denies as per HPI, denies blurred vision, denies bulging eye, denies decreased vision, denies diplopia, denies discharge, denies dry eye, denies irritation, denies itching, denies pain, denies photophobia, denies loss of peripheral vision, denies loss of vision, denies tunnel vision/blind spots Ears: deny: decreased hearing, ear discharge, earache, tinnitus Ears, nose, mouth and throat: Reports as per HPI Breasts: absent: as per HPI, change in shape, gynecomastia, masses, nipple discharge, pain, skin changes, swelling Cardiovascular: Reports as per HPI (Intermittent static static), Reports claudication Respiratory: Reports as per HPI Gastrointestinal: Reports as per HPI Genitourinary: Reports as per HPI Menstruation: Reports as per HPI Musculoskeletal: Reports as per HPI Musculoskeletal: absent: ankle pain, ankle stiffness, ankle swelling, as per HPI, elbow pain, elbow stiffness, elbow swelling, foot pain, foot stiffness, foot swelling, hand pain, hand stiffness, hand swelling, hip pain, hip stiffness, hip swelling, knee pain, knee stiffness, knee swelling, shoulder pain, shoulder stiffness, shoulder swelling, wrist pain, wrist stiffness, wrist swelling Integumentary: Reports as per HPI Neurological: Reports numbness, Reports paresthesias, Reports weakness Psychiatric: Reports as per HPI Endocrine: Reports as per HPI, Reports excessive thirst, Reports high blood sugars, Reports polyuria Hematologic/Lymphatic: Reports as per HPI Allergic/Immunologic: Reports as per HPI Past Medical History Past Medical History: Coronary Artery Disease (CAD), Cancer, COPD, CVA/TIA, Diabetes Mellitus, Deep Vein Thrombosis (DVT), Eye Disorder, GERD/Reflux, Hyperlipidemia, Hypertension, Myocardial Infarction (VT), Musculoskeletal Disorder, Neurologic Disorder, Renal Disease, Rheumatoid Arthritis (RA), Sleep Apnea/CPAP/BIPAP, Syncope, Thyroid Disorder Additional Past Medical History / Comment(s): 09/16/16 small bowel obstruction with surgery. Hx left renal cell carcinoma with partial nephrectomy. Hx CVA X4, last 5 yrs ago, no residual effects. Hx DVT left leg 7-8 yrs ago. Hypothy roidism. Chronic back pain, degenerative disc disease, restless leg syndrome, peripheral neuropathy. Hx UTI with sepsis Apr 2016 requiring PICC line insertion for IV antibiotics. Hx bilateral glaucoma. Hx syncope due to low blood sugars. No CPAP use. Migraines. DKA, HHS. Last Myocardial Infarction Date:: 2019 History of Any Multi-Drug Resistant Organisms: ESBL, MRSA, VRE Date of last positivie culture/infection: 05/07/16 ESBL, 05/15/16 VRE, MRSA 09/2017 - upper lip MDRO Source:: URINE E.COLI, EC GALLINARUM Past Surgical History: Appendectomy, Bowel Resection, Section, Heart Catheterization, Heart Catheterization With Stent, Hernia Repair Additional Past Surgical History / Comment(s): Exploratory laparotomy with lysis of adhesions, repair incarcerated incisional hernia with abdominal washout, thyroidectomy, partial left nephrectomy, colonoscopy, bilateral cataract removal with lens implants, Section X2, cardiac stent 04/06/2021. Past Anesthesia/Blood Transfusion Reactions: No Reported Reaction Date of Last Stent Placement:: 04/06/2021 Past Psychological History: Depression Smoking Status: Former smoker Past Alcohol Use History: None Reported Additional Past Alcohol Use History / Comment(s): Started smoking at age 8 1-1 1/2 ppd, up to 3-4 ppd for 50 years, has quit on and off, last quit 02/06. Past Drug Use History: Cocaine, Marijuana Additional Drug Use History / Comment(s): Uses marijuana once or twice a week. Hx of cocaine use, none in 20+ yrs. - Past Family History Sister(s) Family Medical History: Cancer, Deep Vein Thrombosis (DVT) Additional Family Medical History / Comment(s): Patient has one sister that from liver cancer. Brother(s) Family Medical History: Cancer, Deep Vein Thrombosis (DVT) Additional Family Medical History / Comment(s): Patient has 1 brother with past ETOH, past drug abuse, DVTs. She has a second brother that has from throat cancer. Daughter(s) Family Medical History: Diabetes Mellitus, Myocardial Infarction (VT) Additional Family Medical History / Comment(s): Daughter at 23 yrs old from massive VT. Father Family Medical History: Myocardial Infarction (VT) Additional Family Medical History / Comment(s): from VT at age 44. Mother Family Medical History: Cancer Additional Family Medical History / Comment(s): Breast cancer. Medications and Allergies Home Medications Medication Instructions Recorded Confirmed Type Venlafaxine HCl [Effexor XR] 225 mg PO DAILY 10/21/16 03/29/24 History Pantoprazole Sodium [Protonix] 40 mg PO BID 04/06/20 03/29/24 History Aspirin EC [Ecotrin Low Dose] 81 mg PO DAILY 10/03/22 03/29/24 History Isosorbide Mononitrate ER [Imdur] 30 mg PO DAILY 04/10/23 03/29/24 History Mirtazapine 7.5 mg PO HS 04/10/23 03/29/24 History cilostazoL [Pletal] 100 mg PO BID 08/02/23 03/29/24 History Losartan [Cozaar] 50 mg PO DAILY #60 tab 08/05/23 03/29/24 Rx Metoprolol Succinate (ER) [Toprol 25 mg PO DAILY #60 tab 08/05/23 03/29/24 Rx XL] Linagliptin [Tradjenta] 5 mg PO DAILY #30 tab 09/05/23 03/29/24 Rx INSULIN LISPRO (HumaLOG) [humaLOG] See Protocol SQ AC-TID PRN 02/12/24 03/29/24 History Insulin Glargine [Lantus Vial] 10 unit SQ DAILY 02/12/24 03/29/24 History Acetaminophen Tab [Tylenol] 650 mg PO Q6HR PRN tab 02/18/24 03/29/24 Rx Folic Acid 1 mg PO DAILY tab 02/18/24 03/29/24 Rx Midodrine [ProAmatine] 5 mg PO AC-TID #90 tab 02/18/24 03/29/24 Rx Cyanocobalamin [Vitamin B-12] 1,000 mcg PO TID 03/26/24 03/29/24 History Levothyroxine Sodium [Synthroid] 25 mcg PO DAILY 03/29/24 03/29/24 History Allergies Allergy/AdvReac Type Severity Reaction Status Date / Time grass pollen Allergy Unknown Verified 03/29/24 15:53 latex Allergy Rash/Hives Verified 03/29/24 15:53 Sulfa (Sulfonamide Allergy Rash/Hives/ Verified 03/29/24 16:06 Antibiotics) Swelling venom-honey bee Allergy Anaphylaxis Verified 03/29/24 15:53 prochlorperazine edisylate AdvReac Vomiting Verified 03/29/24 15:53 [From Compazine] Physical Exam Vitals: Vital Signs Temp Pulse Pulse Resp BP BP Pulse Ox 03/30/24 13:30 73 15 100/58 94 L 03/30/24 13:15 78 12 95/55 95 10/15/24 13:00 78 15 73/54 96 03/30/24 12:45 97.4 F L 78 12 79/51 96 03/30/24 12:29 81/45 03/30/24 12:22 76/46 03/30/24 12:10 71/41 03/30/24 11:58 73/43 03/30/24 11:41 81/49 03/30/24 11:22 82/50 03/30/24 11:10 97.9 F 89 16 74/51 99 03/30/24 07:20 97.8 F 111 H 16 106/69 98 03/30/24 03:25 98.8 F 109 H 16 103/67 99 03/30/24 02:00 75 16 03/29/24 22:51 97.5 F L 75 16 130/75 99 03/29/24 21:30 107 H 18 109/75 96 03/29/24 21:15 101 H 33 H 110/69 03/29/24 21:00 101 H 19 107/61 03/29/24 20:45 101 H 23 107/61 03/29/24 20:30 105 H 16 115/76 03/29/24 20:15 101 H 18 115/76 03/29/24 20:00 105 H 11 L 102/86 78 L 03/29/24 19:45 112 H 20 102/86 03/29/24 19:30 110 H 18 114/76 03/29/24 19:15 112 H 18 114/76 03/29/24 18:29 97.1 F L 114 H 24 122/81 03/29/24 17:40 112 H 24 110/84 96 03/29/24 15:00 103 H 18 117/81 96 Intake and Output 03/29/24 03/30/24 03/30/24 22:59 06:59 14:59 Intake Total 0 75.549 1098.996 Output Total 0 Balance 0 75.549 1098.996 Intake: IV 1050 D5-0.45% NaCl with KCl 50 20Meq/l 1,000 ml @ 50 mls /hr IV .Q20H [facility] Rx#: [id number] Sodium Chloride 0.9% 1, 1000 000 ml @ 999 mls/hr IV . Q1H1M [facility] Rx#:[id number] Intake, IV Titration 75.549 48.996 Amount Insulin Regular 100 unit 75.549 48.996 In Sodium Chloride 0.9% 100 ml @ 0.1 UNITS/KG/HR 5.131 mls/hr IV .[id number] [facility] Rx#:[id number] Oral 0 Output: Urine 0 Other: Voiding Method Bedpan Bedpan Diaper Incontinent # Voids 1 Weight 50.802 kg General Appearance: She is opening her eyes not able to answer yet does not look in any respiratory distress. Patient is currently on room air oxygen., Comfortable, no significant respiratory distress Neck HEENT: Supple, no lymphadenopathy, no thyroid enlargement, no carotid bruits. Lungs: Clear to auscultation without crackles or wheezes no rhonchi, no deformity. Chest Wall: Normal expansion with slight tenderness, slightly at resuscitation. And no deformity was found on exam, no costochondral pain or discomfort. Heart: Regular rate and rhythm, S1, S2 normal, no murmur, rub or gallop. Back: Symmetric, no curvature, ROM normal, no CVA tenderness. Abdomen: Soft, non-tender, bowel sounds active all four quadrants, no masses, no organomegaly. Extremities: Extremities normal, atraumatic, no cyanosis or edema. Pulses: Extremities are warm and the patient with diminished pulses in lower extremities bilaterally Skin: Skin color, texture, tugor normal, no rashes or lesions. Neurologic: Alert significantly confused cranial nerves II through XII intact, generalized weakness bilaterally, not been able to do gait exam. Results - Laboratory Findings CBC and BMP: 03/30/24 07:05 03/30/24 10:45 PT/INR, D-dimer PT 9.5 sec (10.0-12.5) L 03/29/24 14:40 INR 0.8 (<1.2) 03/29/24 14:40 Abnormal lab findings: Abnormal Labs 03/29/24 03/29/24 03/29/24 14:40 14:40 14:40 RBC Hgb Hct MCHC 30.1 L Lymphocytes # 0.7 L PT 9.5 L APTT 21.8 L VBG pH VBG pCO2 VBG HCO3 Sodium 131 L Potassium 5.7 H Chloride 86 L Carbon Dioxide <5 L* BUN 37 H Creatinine 1.79 H Glucose 988 H* POC Glucose (mg/dL) Plasma Lactic Acid Ab Phosphorus Magnesium 2.9 H Alkaline Phosphatase 129 H Total Protein Urine Glucose (UA) Urine Ketones Urine Blood Urine RBC Urine Bacteria Urine Mucus Urine Yeast (Budding) Stool Occult Blood 03/29/24 03/29/24 03/29/24 14:40 14:45 18:34 RBC Hgb Hct MCHC Lymphocytes # PT APTT VBG pH 7.05 L* VBG pCO2 31 L VBG HCO3 9 L* Sodium Potassium Chloride Carbon Dioxide BUN Creatinine Glucose POC Glucose (mg/dL) >600 H* Plasma Lactic Acid Ab 2.1 H* Phosphorus Magnesium Alkaline Phosphatase Total Protein Urine Glucose (UA) Urine Ketones Urine Blood Urine RBC Urine Bacteria Urine Mucus Urine Yeast (Budding) Stool Occult Blood 03/29/24 03/29/24 03/29/24 19:04 19:30 20:12 RBC Hgb Hct MCHC Lymphocytes # PT APTT VBG pH VBG pCO2 VBG HCO3 Sodium Potassium Chloride Carbon Dioxide 6 L* BUN 41 H Creatinine 1.63 H Glucose 603 H* POC Glucose (mg/dL) >600 H* Plasma Lactic Acid Ab Phosphorus Magnesium Alkaline Phosphatase Total Protein Urine Glucose (UA) 4+ H Urine Ketones 3+ H Urine Blood Trace H Urine RBC 10 H Urine Bacteria Rare H Urine Mucus Rare H Urine Yeast (Budding) Occasional H Stool Occult Blood 03/29/24 03/29/24 03/29/24 20:23 21:41 23:08 RBC Hgb Hct MCHC Lymphocytes # PT APTT VBG pH VBG pCO2 VBG HCO3 Sodium Potassium Chloride Carbon Dioxide BUN Creatinine Glucose POC Glucose (mg/dL) >600 H* 437 H 341 H Plasma Lactic Acid Ab Phosphorus Magnesium Alkaline Phosphatase Total Protein Urine Glucose (UA) Urine Ketones Urine Blood Urine RBC Urine Bacteria Urine Mucus Urine Yeast (Budding) Stool Occult Blood 03/30/24 03/30/24 03/30/24 00:02 00:17 00:59 RBC Hgb Hct MCHC Lymphocytes # PT APTT VBG pH VBG pCO2 VBG HCO3 Sodium Potassium Chloride Carbon Dioxide 12 L BUN 45 H Creatinine 1.38 H Glucose 303 H POC Glucose (mg/dL) 395 H 378 H Plasma Lactic Acid Ab Phosphorus 2.3 L Magnesium Alkaline Phosphatase Total Protein Urine Glucose (UA) Urine Ketones Urine Blood Urine RBC Urine Bacteria Urine Mucus Urine Yeast (Budding) Stool Occult Blood 03/30/24 03/30/24 03/30/24 01:59 03:07 04:04 RBC Hgb Hct MCHC Lymphocytes # PT APTT VBG pH VBG pCO2 VBG HCO3 Sodium Potassium Chloride Carbon Dioxide BUN Creatinine Glucose POC Glucose (mg/dL) 238 H 226 H 220 H Plasma Lactic Acid Ab Phosphorus Magnesium Alkaline Phosphatase Total Protein Urine Glucose (UA) Urine Ketones Urine Blood Urine RBC Urine Bacteria Urine Mucus Urine Yeast (Budding) Stool Occult Blood 03/30/24 03/30/24 03/30/24 04:20 05:02 06:02 RBC Hgb Hct MCHC Lymphocytes # PT APTT VBG pH VBG pCO2 VBG HCO3 Sodium Potassium Chloride Carbon Dioxide BUN Creatinine Glucose POC Glucose (mg/dL) 236 H 363 H Plasma Lactic Acid Ab Phosphorus Magnesium Alkaline Phosphatase Total Protein Urine Glucose (UA) Urine Ketones Urine Blood Urine RBC Urine Bacteria Urine Mucus Urine Yeast (Budding) Stool Occult Blood Positive H 03/30/24 03/30/24 03/30/24 07:02 07:05 07:05 RBC 3.74 L Hgb 11.2 L Hct 33.5 L MCHC Lymphocytes # PT APTT VBG pH VBG pCO2 VBG HCO3 Sodium Potassium Chloride Carbon Dioxide BUN 48 H Creatinine 1.38 H Glucose 220 H POC Glucose (mg/dL) 277 H Plasma Lactic Acid Ab Phosphorus Magnesium Alkaline Phosphatase Total Protein 6.2 L Urine Glucose (UA) Urine Ketones Urine Blood Urine RBC Urine Bacteria Urine Mucus Urine Yeast (Budding) Stool Occult Blood 03/30/24 03/30/24 03/30/24 08:05 09:05 09:59 RBC Hgb Hct MCHC Lymphocytes # PT APTT VBG pH VBG pCO2 VBG HCO3 Sodium Potassium Chloride Carbon Dioxide BUN Creatinine Glucose POC Glucose (mg/dL) 184 H 194 H 196 H Plasma Lactic Acid Ab Phosphorus Magnesium Alkaline Phosphatase Total Protein Urine Glucose (UA) Urine Ketones Urine Blood Urine RBC Urine Bacteria Urine Mucus Urine Yeast (Budding) Stool Occult Blood 03/30/24 03/30/24 03/30/24 10:45 11:05 12:04 RBC Hgb Hct MCHC Lymphocytes # PT APTT VBG pH VBG pCO2 VBG HCO3 Sodium Potassium Chloride 108 H Carbon Dioxide BUN 48 H Creatinine 1.40 H Glucose 156 H POC Glucose (mg/dL) 150 H 148 H Plasma Lactic Acid Ab Phosphorus 0.9 L* Magnesium Alkaline Phosphatase Total Protein Urine Glucose (UA) Urine Ketones Urine Blood Urine RBC Urine Bacteria Urine Mucus Urine Yeast (Budding) Stool Occult Blood 03/30/24 12:35 RBC Hgb Hct MCHC Lymphocytes # PT APTT VBG pH VBG pCO2 VBG HCO3 Sodium Potassium Chloride Carbon Dioxide BUN Creatinine Glucose POC Glucose (mg/dL) 122 H Plasma Lactic Acid Ab Phosphorus Magnesium Alkaline Phosphatase Total Protein Urine Glucose (UA) Urine Ketones Urine Blood Urine RBC Urine Bacteria Urine Mucus Urine Yeast (Budding) Stool Occult Blood - Diagnostic Findings Chest x-ray: image reviewed Assessment and Plan Plan: Hypotension, likely hypovolemic in nature in the setting of a acute DKA. The patient's anion gap metabolic acidosis closed and there is no significant acidosis. Nevertheless, the patient remains hypotensive and should respond to IV fluids. Doubt cardiogenic or septic shock at this point in time. Patient is currently on IV fluids DKA, recovered Acute kidney injury, likely secondary to testicle volume depletion, improving Altered mental status, improving and the patient is awake alert and communicating Multivessel coronary artery disease Moderate CAD in Mid LAD Moderate CAD in LCx CHF with mild impairment of the LV function with an ejection fraction of 40 to 45% History of renal cell carcinoma with a partial nephrectomy on the right Remote history of DVT Hypothyroidism Hyperlipidemia Diabetic peripheral neuropathy COPD Peripheral vascular disease with stenosis of the right [employer] History of depression Gastroparesis Previous history of CVA x 4 Plan Will monitor the blood pressure. No need for pressors and the patient will receive 2 L of normal saline Continue D5 half-normal saline at rate of 50 cc an hour Continue on Levemir insulin and sliding scale insulin coverage and monitor blood sugar at the current doses Replace the phosphorus immediately as the patient has severe hypophosphatemia Patient is currently on room air oxygen Hold antihypertensive medications Monitor renal function the patient has a Mccann catheter is producing adequate amount of urine output Will continue to follow and the patient will be monitored here in the intensive care unit.
[2024-03-30 14:32] LABS: Ketones,Urine 2+ (Negative)
[2024-03-30] MEDS: SODIUM PHOSPHATE 60 MMOL in DEXTROSE 5% IN WATER 250 ML IVPB ONE (14:57)
[2024-03-30] MEDS ORDERED: Potassium Replacement Protocol 1 EACH MISC MISCELLANE PRN (15:00)
[2024-03-30] MEDS: POTASSIUM CHLORIDE 10 MEQ in WATER FOR INJECTION 1 100ML.BAG IVPB SCH (15:05)
[2024-03-30 16:51] LABS: Glucose,Whole Blood 222 mg/dL (70-110)
[2024-03-30] MEDS ORDERED: DEXTROSE 50% SYRINGE 50 ML IVP PRN ×4 (16:57→16:59)
[2024-03-30] MEDS: ONDANSETRON 4 MG/2 ML VIAL IVP PRN (20:47)
[2024-03-30 21:06] LABS: Glucose,Whole Blood 167 mg/dL (70-110)
[2024-03-30] MEDS: DEXTROSE 5%-0.9% NACL 1,000 ML IV SCH (23:18)
[2024-03-30 23:38] LABS: Magnesium 1.8 mg/dL (1.6-2.3); Potassium 3.6 mmol/L (3.5-5.1)
[2024-03-31] MEDS ORDERED: Magnesium Replacement Protocol 1 EACH MISC MISCELLANE PRN (00:04)
[2024-03-31] MEDS: MAGNESIUM SULFATE-D5W PMX 1 GM in DEXTROSE/WATER 1 100ML.BAG IVPB ONE ×2 (00:51→13:38)
[2024-03-31] MEDS: POTASSIUM CHLORIDE 10 MEQ in WATER FOR INJECTION 1 100ML.BAG IVPB SCH (00:51)
[2024-03-31 05:10] LABS: African American GFR (CKD) 59 (>60 ml/min/1.73 sqM); Anion Gap 8 mmol/L; Blood Urea Nitrogen 35 mg/dL (7-17); Carbon Dioxide 19 mmol/L (22-30); Chloride 110 mmol/L (98-107); Glucose 200 mg/dL (74-99); Non-African American GFR(CKD) 51 (>60 ml/min/1.73 sqM); Potassium 3.9 mmol/L (3.5-5.1); Sodium 137 mmol/L (137-145)
[2024-03-31 05:28] LABS: Basophils % (A) 0 %; Eosinophils # (A) 0.1 k/uL (0-0.7); Eosinophils % (A) 3 %; Lymphocytes # (A) 0.9 k/uL (1.0-4.8); Lymphocytes % (A) 21 %; MCH 30.7 pg (25.0-35.0); MCHC 33.6 g/dL (31.0-37.0); MCV 91.2 fL (80.0-100.0); Mean Platelet Volume 8.3; Monocytes # (A) 0.2 k/uL (0-1.0); Monocytes % (A) 4 %; Neutrophils # (A) 3.1 k/uL (1.3-7.7); Neutrophils % (A) 72 %; Platelet Count 173 k/uL (150-450); RBC 2.96 m/uL (3.80-5.40); RDW 15.6 % (11.5-15.5); WBC 4.3 k/uL (3.8-10.6)
[2024-03-31 05:29] LABS: HGB 9.1 gm/dL (11.4-16.0)
--- NOTE | 2024-03-31 05:48 | P.PN ---
Subjective Progress Note Date: 03/30/24 History of present illness: 64-year-old woman for office patient with active medical history of insulin- dependent diabetes, coronary disease, history of arthralgia, chronic lower back pain, previous history of CVA and TIA, coagulopathy, history of DVT, hypertension, hyperlipidemia, recurrent UTI with resistant infection to ESBL and MRSA who was hospitalized 3 weeks ago with severe hyperosmotic hyperglycemia nonketotic at the time with blood sugar of 1192 was in the ICU for few days before finally was transferred out of the ICU and up going to subacute rehab afterward especially with the complication related to her current medical history. Patient has been home and has been back to see her primary care physician and burlesque dancer apparently will schedule with her burlesque dancer to go for aortogram pretesting was done and showed blood sugar of over 1000 with abnormal sodium and creatinine patient was called and directed to go to the emergency department for the above problem. Was seen and evaluated Initial blood sugar was over 600 988, creatinine 1.79 with GFR down to 30 with GFR was above 70 when she left the hospital around March 05. Patient was started on DKA protocol will consult nephrology continue DKA management with IV insulin along with hydration till her blood sugar is down to below 200. Sadly her pH was 7.05 and HCO3 of 9 sodium 131 potassium 5.7 with a chloride of 86. Patient does not have a clear answer to why her blood sugar high she keep referring to herself and she is doing everything possible and asked by her training intern and primary care when the truth of the matter that even when she of the hospital last time was only using a few units of longer acting insulin and a few units of NovoLog AC meals plus sliding scales coverage for total of insulin hardly exceed 40 units a day. Was started on SGLT2 product which increased out of UTI but has no UTI since. Her procedure with her burlesque dancer was expected from the last few admission. 03/30/2024: Blood sugar dropped down finally around 200 she is remain on D5.45 with bicarbonate, magnesium is much better calcium is slightly bit low at 7.0. Urine test returned to be slightly bit positive with mild purulence is traumatic from catheter or not. Patient on Rocephin as well. Patient is not awake and that well she usually does this every time by staying in bed could more alter however drowsy and sleepy for longer time before finally awaking. Otherwise clinical judgment exam still making good to review her chest x-ray from her admission does not show any sign of infiltrate or infection, her EKG continued to be mild sinus tachycardia around 103 with partial bundle branch block. The patient is to be continue on hydration her kidney function is holding well at this point. REVIEW OF SYSTEMS: CONSTITUTIONAL: Well-developed still incoherent drowsy and sluggish not answering question appropriately does not look in any distress. EYES: No icterus sclerae, no conjunctivitis. EARS, NOSE, MOUTH, THROAT, and FACE: No sore throat, lymphadenopathy, carotid bruits or deformity. RESPIRATORY: No SOB cough or wheezes. CARDIOVASCULAR: No CP, Palpitation, PND, Orthopnea, or angina. GASTROINTESTINAL: No Abd pain, Nausea or vomiting, no Diarrhea or constipation, No GI Bleed, no distention or masses. GENITOURINARY: Mostly incontinence no kidney stone or bloody urine. INTEGUMENT/BREAST: Generalized muscle and joint pain. HEMATOLOGIC/LYMPHATIC: Negative for bleed or purpura. MUSCULOSKELTAL: Myalgia and arthralgia with lower back pain. NEURLOGICAL: Had seizure activity with incoherence significant cephalopathy and not been able to answer any question appropriately at this point. BEHAVIORAL/PSYCH: Negative. ENDOCRINE: Negative. PHYSICAL EXAMINATION: General Appearance: She is opening her eyes not able to answer yet does not look in any respiratory distress. Neck HEENT: Supple, no lymphadenopathy, no thyroid enlargement, no carotid bruits. Lungs: Clear to auscultation without crackles or wheezes no rhonchi, no deformity. Chest Wall: Normal expansion with slight tenderness, slightly at resuscitation. And no deformity was found on exam, no costochondral pain or discomfort. Heart: Regular rate and rhythm, S1, S2 normal, no murmur, rub or gallop. Back: Symmetric, no curvature, ROM normal, no CVA tenderness. Abdomen: Soft, non-tender, bowel sounds active all four quadrants, no masses, no organomegaly. Extremities: Extremities normal, atraumatic, no cyanosis or edema. Pulses: 2+ and symmetric. Skin: Skin color, texture, tugor normal, no rashes or lesions. Neurologic: Alert significantly confused cranial nerves II through XII intact, generalized weakness bilaterally, not been able to do gait exam. ASSESSMENT AND PLAN: _Severe hyperosmolar lactic acidosis DKA:. Blood sugar down to around 200 the patient be started on longer acting insulin with Levemir 15 and twice a day still on NovoLog as well 5 units AC meals plus sliding scales as soon as her blood sugar dropped to around 150 insulin drip can be discontinued continue patient on Accu-Chek with sliding scales coverage every 4 hours. _Lactic acidosis, secondary to DKA, treat underlying disease continue to watch blood gas and pH along with bicarbonate level. Continue to correct patient electrolyte imbalance. _Acute kidney injury: Kidney function improved significantly with GFR is up to 51 already continue again hydration continue to watch her urine output. _UTI with not clear whether that is the cause of her DKA or not this time but UA is positive waiting for culture Rocephin 1 g can be giving daily till the culture is complete. _Recurrent angina and significant chest pain with known coronary artery disease with multiple blockage was supposed to go for an angiogram mostly heart catheter and a preop however discovered this foot sugar to be low 80s sadly patient blood sugar was stabilized from last time was supposed to be compliant with current dose of insulin and oral hypoglycemic agent keep it under control. Altered mental status: Combination of DKA, and infection continue to treat underlying disease watch symptoms carefully. No sign of stroke so far or mini stroke. Mentation to be watched with carefully. _Severe hypothyroidism: Again most likely from noncompliant to medication 100 mcg of levothyroxine can be given IV and switch patient to oral soon as she is able to swallow. Multiple coronary artery disease last angiogram was in June 06, 2023 with mild LAD mild circumflex completely blockage in the RCA. The patient will be on medical management only. Hypothyroidism: Continue levothyroxine 250 mcg daily. Will continue medication. Hyperlipidemia: Remain on rosuvastatin 40 mg a day with LDL has been below 70. COPD: She is on her updraft treatment does not require any oxygen she is on steroids is inhaler as well. Mild PAD has been on Pletal 100 mg twice a day. Hypertension: Continue losartan 25 mg a day and metoprolol succinate 50 mg daily. Chronic diabetic neuropathy: Has been on gabapentin 600 mg 3 times a day. Will hold off on gabapentin for the next 24 hours. Chronic depression: Has been on Effexor XR 225 mcg daily along with mirtazapine 7.5 mg at bedtime. Gastroparesis with recurrent episode of nausea and vomiting has been on Zofran, Protonix and Reglan. Discussion: Her DKA is much better and lactic acid is down patient blood sugar running around 200 at this point continue drip we will continue Accu-Chek sliding scales coverage every 2 hours while patient is on Levemir twice a day and NovoLog 3 times a day. Plus sliding scales usually should he require about total of 40 units of insulin total which is very easy to maintain between the order currently place and I expect her blood sugar to be in the 100 by tomorrow morning so her DKA criteria would be off. Not clear whether there is any secondary reason drop patient into being in DKA or not this time UA is pending to be positive is no other positive culture but white blood cell is negative so far. Objective - Vital Signs Vital signs: Vital Signs Temp 98.8 F 03/30/24 03:25 Pulse 109 H 03/30/24 03:25 Resp 16 03/30/24 03:25 BP 103/67 03/30/24 03:25 Pulse Ox 99 03/30/24 03:25 FiO2 Intake & Output 03/29/24 03/29/24 03/30/24 06:59 18:59 06:59 Intake Total 0 39.537 Output Total 0 Balance 0 39.537 Weight 50.802 kg Intake: Intake, IV Titration 39.537 Amount Insulin Regular 100 unit 39.537 In Sodium Chloride 0.9% 100 ml @ 0.1 UNITS/KG/HR 5.131 mls/hr IV .[id number] [facility] Rx#:[id number] Oral 0 Output: Urine 0 Other: Voiding Method Bedpan - Labs CBC & Chem 7: 03/31/24 04:22 03/31/24 04:22 Labs: Abnormal Lab Results - Last 24 Hours (Table) 03/29/24 03/29/24 03/29/24 Range/Units 14:40 14:40 14:40 MCHC 30.1 L (31.0-37.0) g/dL Lymphocytes # 0.7 L (1.0-4.8) k/uL PT 9.5 L (10.0-12.5) sec APTT 21.8 L (22.0-30.0) sec VBG pH (7.31-7.41) VBG pCO2 (37-51) mmHg VBG HCO3 (24-28) mmol/L Sodium 131 L (137-145) mmol/L Potassium 5.7 H (3.5-5.1) mmol/L Chloride 86 L (98-107) mmol/L Carbon Dioxide <5 L* (22-30) mmol/L BUN 37 H (7-17) mg/dL Creatinine 1.79 H (0.52-1.04) mg/dL Glucose 988 H* (74-99) mg/dL POC Glucose (mg/dL) (70-110) mg/dL Plasma Lactic Acid Ab (0.7-2.0) mmol/L Phosphorus (2.5-4.5) mg/dL Magnesium 2.9 H (1.6-2.3) mg/dL Alkaline Phosphatase 129 H (38-126) U/L Urine Glucose (UA) (Negative) Urine Ketones (Negative) Urine Blood (Negative) Urine RBC (0-5) /hpf Urine Bacteria (None) /hpf Urine Mucus (None) /hpf Urine Yeast (Budding) (None) /hpf Stool Occult Blood (Negative) 03/29/24 03/29/24 03/29/24 Range/Units 14:40 14:45 18:34 MCHC (31.0-37.0) g/dL Lymphocytes # (1.0-4.8) k/uL PT (10.0-12.5) sec APTT (22.0-30.0) sec VBG pH 7.05 L* (7.31-7.41) VBG pCO2 31 L (37-51) mmHg VBG HCO3 9 L* (24-28) mmol/L Sodium (137-145) mmol/L Potassium (3.5-5.1) mmol/L Chloride (98-107) mmol/L Carbon Dioxide (22-30) mmol/L BUN (7-17) mg/dL Creatinine (0.52-1.04) mg/dL Glucose (74-99) mg/dL POC Glucose (mg/dL) >600 H* (70-110) mg/dL Plasma Lactic Acid Ab 2.1 H* (0.7-2.0) mmol/L Phosphorus (2.5-4.5) mg/dL Magnesium (1.6-2.3) mg/dL Alkaline Phosphatase (38-126) U/L Urine Glucose (UA) (Negative) Urine Ketones (Negative) Urine Blood (Negative) Urine RBC (0-5) /hpf Urine Bacteria (None) /hpf Urine Mucus (None) /hpf Urine Yeast (Budding) (None) /hpf Stool Occult Blood (Negative) 03/29/24 03/29/24 03/29/24 Range/Units 19:04 19:30 20:12 MCHC (31.0-37.0) g/dL Lymphocytes # (1.0-4.8) k/uL PT (10.0-12.5) sec APTT (22.0-30.0) sec VBG pH (7.31-7.41) VBG pCO2 (37-51) mmHg VBG HCO3 (24-28) mmol/L Sodium (137-145) mmol/L Potassium (3.5-5.1) mmol/L Chloride (98-107) mmol/L Carbon Dioxide 6 L* (22-30) mmol/L BUN 41 H (7-17) mg/dL Creatinine 1.63 H (0.52-1.04) mg/dL Glucose 603 H* (74-99) mg/dL POC Glucose (mg/dL) >600 H* (70-110) mg/dL Plasma Lactic Acid Ab (0.7-2.0) mmol/L Phosphorus (2.5-4.5) mg/dL Magnesium (1.6-2.3) mg/dL Alkaline Phosphatase (38-126) U/L Urine Glucose (UA) 4+ H (Negative) Urine Ketones 3+ H (Negative) Urine Blood Trace H (Negative) Urine RBC 10 H (0-5) /hpf Urine Bacteria Rare H (None) /hpf Urine Mucus Rare H (None) /hpf Urine Yeast (Budding) Occasional H (None) /hpf Stool Occult Blood (Negative) 03/29/24 03/29/24 03/29/24 Range/Units 20:23 21:41 23:08 MCHC (31.0-37.0) g/dL Lymphocytes # (1.0-4.8) k/uL PT (10.0-12.5) sec APTT (22.0-30.0) sec VBG pH (7.31-7.41) VBG pCO2 (37-51) mmHg VBG HCO3 (24-28) mmol/L Sodium (137-145) mmol/L Potassium (3.5-5.1) mmol/L Chloride (98-107) mmol/L Carbon Dioxide (22-30) mmol/L BUN (7-17) mg/dL Creatinine (0.52-1.04) mg/dL Glucose (74-99) mg/dL POC Glucose (mg/dL) >600 H* 437 H 341 H (70-110) mg/dL Plasma Lactic Acid Ab (0.7-2.0) mmol/L Phosphorus (2.5-4.5) mg/dL Magnesium (1.6-2.3) mg/dL Alkaline Phosphatase (38-126) U/L Urine Glucose (UA) (Negative) Urine Ketones (Negative) Urine Blood (Negative) Urine RBC (0-5) /hpf Urine Bacteria (None) /hpf Urine Mucus (None) /hpf Urine Yeast (Budding) (None) /hpf Stool Occult Blood (Negative) 03/30/24 03/30/24 03/30/24 Range/Units 00:02 00:17 00:59 MCHC (31.0-37.0) g/dL Lymphocytes # (1.0-4.8) k/uL PT (10.0-12.5) sec APTT (22.0-30.0) sec VBG pH (7.31-7.41) VBG pCO2 (37-51) mmHg VBG HCO3 (24-28) mmol/L Sodium (137-145) mmol/L Potassium (3.5-5.1) mmol/L Chloride (98-107) mmol/L Carbon Dioxide 12 L (22-30) mmol/L BUN 45 H (7-17) mg/dL Creatinine 1.38 H (0.52-1.04) mg/dL Glucose 303 H (74-99) mg/dL POC Glucose (mg/dL) 395 H 378 H (70-110) mg/dL Plasma Lactic Acid Ab (0.7-2.0) mmol/L Phosphorus 2.3 L (2.5-4.5) mg/dL Magnesium (1.6-2.3) mg/dL Alkaline Phosphatase (38-126) U/L Urine Glucose (UA) (Negative) Urine Ketones (Negative) Urine Blood (Negative) Urine RBC (0-5) /hpf Urine Bacteria (None) /hpf Urine Mucus (None) /hpf Urine Yeast (Budding) (None) /hpf Stool Occult Blood (Negative) 03/30/24 03/30/24 03/30/24 Range/Units 01:59 03:07 04:04 MCHC (31.0-37.0) g/dL Lymphocytes # (1.0-4.8) k/uL PT (10.0-12.5) sec APTT (22.0-30.0) sec VBG pH (7.31-7.41) VBG pCO2 (37-51) mmHg VBG HCO3 (24-28) mmol/L Sodium (137-145) mmol/L Potassium (3.5-5.1) mmol/L Chloride (98-107) mmol/L Carbon Dioxide (22-30) mmol/L BUN (7-17) mg/dL Creatinine (0.52-1.04) mg/dL Glucose (74-99) mg/dL POC Glucose (mg/dL) 238 H 226 H 220 H (70-110) mg/dL Plasma Lactic Acid Ab (0.7-2.0) mmol/L Phosphorus (2.5-4.5) mg/dL Magnesium (1.6-2.3) mg/dL Alkaline Phosphatase (38-126) U/L Urine Glucose (UA) (Negative) Urine Ketones (Negative) Urine Blood (Negative) Urine RBC (0-5) /hpf Urine Bacteria (None) /hpf Urine Mucus (None) /hpf Urine Yeast (Budding) (None) /hpf Stool Occult Blood (Negative) 03/30/24 03/30/24 Range/Units 04:20 05:02 MCHC (31.0-37.0) g/dL Lymphocytes # (1.0-4.8) k/uL PT (10.0-12.5) sec APTT (22.0-30.0) sec VBG pH (7.31-7.41) VBG pCO2 (37-51) mmHg VBG HCO3 (24-28) mmol/L Sodium (137-145) mmol/L Potassium (3.5-5.1) mmol/L Chloride (98-107) mmol/L Carbon Dioxide (22-30) mmol/L BUN (7-17) mg/dL Creatinine (0.52-1.04) mg/dL Glucose (74-99) mg/dL POC Glucose (mg/dL) 236 H (70-110) mg/dL Plasma Lactic Acid Ab (0.7-2.0) mmol/L Phosphorus (2.5-4.5) mg/dL Magnesium (1.6-2.3) mg/dL Alkaline Phosphatase (38-126) U/L Urine Glucose (UA) (Negative) Urine Ketones (Negative) Urine Blood (Negative) Urine RBC (0-5) /hpf Urine Bacteria (None) /hpf Urine Mucus (None) /hpf Urine Yeast (Budding) (None) /hpf Stool Occult Blood Positive H (Negative)
[2024-03-31 06:55] LABS: Glucose,Whole Blood 266 mg/dL (70-110)
[2024-03-31] MEDS: POTASSIUM CHLORIDE ER 20 MEQ TAB.ER PO SCH ×2 (07:19→13:37)
[2024-03-31 08:46] LABS: Estimated Average Glucose >470 mg/dL
[2024-03-31 08:47] LABS: Magnesium 1.9 mg/dL (1.6-2.3); Phosphorus 4.2 mg/dL (2.5-4.5)
[2024-03-31 09:58] VITALS: BMI 23.3
[2024-03-31 11:15] LABS: Glucose,Whole Blood 192 mg/dL (70-110)
--- NOTE | 2024-03-31 12:05 | P.NPCON ---
History of Present Illness - Reason for Consult acute renal failure - History of Present Illness patient is a 64-year-old female with history of diabetes, CVA, recurrent UTI who was admitted to the hospital due to elevated blood sugar of more than 1000. Patient was recently hospitalized about a month ago with hyperosmolar nonketotic hyperglycemia with blood sugar of 1192. No history of fever nausea vomiting or abdominal pain prior to admission. Patient was admitted to the ICU and maintained on insulin drip and IV fluids. Serum creatinine was 1.79 on admission and decreased to 1.14. Status post insulin drip.blood sugar is now 150-200. Serum sodium has been 131-139 Phosphorus was low at 0.9 and improved to 4.2 today. Patient has had good urine output. Past Medical History Past Medical History: Coronary Artery Disease (CAD), Cancer, COPD, CVA/TIA, Diabetes Mellitus, Deep Vein Thrombosis (DVT), Eye Disorder, GERD/Reflux, Hyperlipidemia, Hypertension, Myocardial Infarction (LA), Musculoskeletal Disorder, Neurologic Disorder, Renal Disease, Rheumatoid Arthritis (RA), Sleep Apnea/CPAP/BIPAP, Syncope, Thyroid Disorder Additional Past Medical History / Comment(s): 09/16/16 small bowel obstruction with surgery. Hx left renal cell carcinoma with partial nephrectomy. Hx CVA X4, last 5 yrs ago, no residual effects. Hx DVT left leg 7-8 yrs ago. Hypothyroidism. Chronic back pain, degenerative disc disease, restless leg syndrome, peripheral neuropathy. Hx UTI with sepsis Apr 2016 requiring PICC line insertion for IV antibiotics. Hx bilateral glaucoma. Hx syncope due to low blood sugars. No CPAP use. Migraines. DKA, HHS. Last Myocardial Infarction Date:: 2019 History of Any Multi-Drug Resistant Organisms: ESBL, MRSA, VRE Date of last positivie culture/infection: 05/07/16 ESBL, 05/15/16 VRE, MRSA 09/2017 - upper lip MDRO Source:: URINE E.COLI, EC GALLINARUM Past Surgical History: Appendectomy, Bowel Resection, Section, Heart Catheterization, Heart Catheterization With Stent, Hernia Repair Additional Past Surgical History / Comment(s): Exploratory laparotomy with lysis of adhesions, repair incarcerated incisional hernia with abdominal washout, thyroidectomy, partial left nephrectomy, colonoscopy, bilateral cataract removal with lens implants, Section X2, cardiac stent 04/06/2021. Past Anesthesia/Blood Transfusion Reactions: No Reported Reaction Date of Last Stent Placement:: 04/06/2021 Past Psychological History: Depression Smoking Status: Former smoker Past Alcohol Use History: None Reported Additional Past Alcohol Use History / Comment(s): Started smoking at age 8 1-1 1/2 ppd, up to 3-4 ppd for 50 years, has quit on and off, last quit 02/06. Past Drug Use History: Cocaine, Marijuana Additional Drug Use History / Comment(s): Uses marijuana once or twice a week. Hx of cocaine use, none in 20+ yrs. - Past Family History Sister(s) Family Medical History: Cancer, Deep Vein Thrombosis (DVT) Additional Family Medical History / Comment(s): Patient has one sister that from liver cancer. Brother(s) Family Medical History: Cancer, Deep Vein Thrombosis (DVT) Additional Family Medical History / Comment(s): Patient has 1 brother with past ETOH, past drug abuse, DVTs. She has a second brother that has from throat cancer. Daughter(s) Family Medical History: Diabetes Mellitus, Myocardial Infarction (LA) Additional Family Medical History / Comment(s): Daughter at 23 yrs old from massive LA. Father Family Medical History: Myocardial Infarction (LA) Additional Family Medical History / Comment(s): from LA at age 44. Mother Family Medical History: Cancer Additional Family Medical History / Comment(s): Breast cancer. Medications and Allergies Home Medications Medication Instructions Recorded Confirmed Type Venlafaxine HCl [Effexor XR] 225 mg PO DAILY 10/21/16 03/29/24 History Pantoprazole Sodium [Protonix] 40 mg PO BID 04/06/20 03/29/24 History Aspirin EC [Ecotrin Low Dose] 81 mg PO DAILY 10/03/22 03/29/24 History Isosorbide Mononitrate ER [Imdur] 30 mg PO DAILY 04/10/23 03/29/24 History Mirtazapine 7.5 mg PO HS 04/10/23 03/29/24 History cilostazoL [Pletal] 100 mg PO BID 08/02/23 03/29/24 History Losartan [Cozaar] 50 mg PO DAILY #60 tab 08/05/23 03/29/24 Rx Metoprolol Succinate (ER) [Toprol 25 mg PO DAILY #60 tab 08/05/23 03/29/24 Rx XL] Linagliptin [Tradjenta] 5 mg PO DAILY #30 tab 09/05/23 03/29/24 Rx INSULIN LISPRO (HumaLOG) [humaLOG] See Protocol SQ AC-TID PRN 02/12/24 03/29/24 History Insulin Glargine [Lantus Vial] 10 unit SQ DAILY 02/12/24 03/29/24 History Acetaminophen Tab [Tylenol] 650 mg PO Q6HR PRN tab 02/18/24 03/29/24 Rx Folic Acid 1 mg PO DAILY tab 02/18/24 03/29/24 Rx Midodrine [ProAmatine] 5 mg PO AC-TID #90 tab 02/18/24 03/29/24 Rx Cyanocobalamin [Vitamin B-12] 1,000 mcg PO TID 03/26/24 03/29/24 History Levothyroxine Sodium [Synthroid] 25 mcg PO DAILY 03/29/24 03/29/24 History Allergies Allergy/AdvReac Type Severity Reaction Status Date / Time grass pollen Allergy Unknown Verified 03/29/24 15:53 latex Allergy Rash/Hives Verified 03/29/24 15:53 Sulfa (Sulfonamide Allergy Rash/Hives/ Verified 03/29/24 16:06 Antibiotics) Swelling venom-honey bee Allergy Anaphylaxis Verified 03/29/24 15:53 prochlorperazine edisylate AdvReac Vomiting Verified 03/29/24 15:53 [From Compazine] Physical Exam Vitals: Vital Signs Temp Pulse Resp BP BP Pulse Ox 03/31/24 11:30 96.5 F L 70 16 130/66 96 03/31/24 11:00 71 13 95 03/31/24 10:30 73 14 94/63 96 03/31/24 10:00 78 14 133/99 98 03/31/24 09:30 82 19 127/70 96 03/31/24 09:00 76 14 112/62 97 03/31/24 08:30 68 15 102/61 97 03/31/24 08:00 96.8 F L 70 13 116/64 95 03/31/24 07:30 66 13 120/60 95 03/31/24 07:00 66 13 103/58 96 03/31/24 06:30 64 14 105/58 97 03/31/24 06:00 72 12 104/59 91 L 03/31/24 05:30 70 16 106/57 95 03/31/24 05:00 69 10 L 104/62 95 03/31/24 04:30 79 17 119/62 96 03/31/24 04:00 98.1 F 69 14 108/59 95 03/31/24 03:30 71 20 125/68 95 03/31/24 03:00 75 12 106/65 96 03/31/24 02:30 67 13 120/63 95 03/31/24 02:00 75 11 L 113/63 96 03/31/24 01:30 70 14 106/57 03/31/24 01:00 68 10 L 102/74 03/31/24 00:30 71 11 L 95/55 96 03/31/24 00:00 97.4 F L 73 15 99/60 93 L 03/30/24 23:30 71 15 101/58 95 03/30/24 23:19 68 11 L 101/58 98 03/30/24 23:00 72 15 100/59 95 03/30/24 22:30 70 23 114/60 95 03/30/24 22:00 71 15 95/58 95 03/30/24 21:30 71 15 99/65 94 L 03/30/24 21:00 72 14 97/54 96 03/30/24 20:30 69 14 92/56 98 03/30/24 20:00 97.5 F L 70 16 98/58 95 03/30/24 19:30 72 11 L 82/56 03/30/24 19:00 70 15 98/60 97 03/30/24 18:30 72 16 103/57 98 03/30/24 18:00 70 15 99/59 97 03/30/24 17:30 71 11 L 124/73 97 03/30/24 17:00 80 15 93/59 97 03/30/24 16:30 75 13 105/58 95 03/30/24 16:00 96 F L 75 14 102/50 95 03/30/24 15:45 75 13 100/53 97 03/30/24 15:30 75 14 105/59 95 03/30/24 15:15 72 14 111/56 95 03/30/24 15:00 81 15 115/63 97 03/30/24 14:45 74 13 106/57 94 L 03/30/24 14:30 73 16 103/59 96 03/30/24 14:15 75 12 93/52 93 L 03/30/24 14:00 81 14 85/50 95 03/30/24 13:45 73 15 94/53 92 L 03/30/24 13:30 73 15 100/58 94 L 03/30/24 13:15 78 12 95/55 95 03/30/24 13:00 78 15 73/54 96 03/30/24 12:45 97.4 F L 78 12 79/51 96 03/30/24 12:29 81/45 03/30/24 12:22 76/46 03/30/24 12:10 71/41 Intake and Output 03/30/24 03/31/24 03/31/24 22:59 06:59 14:59 Intake Total 1710 1050 710 Output Total 195 230 190 Balance 1515 820 520 Intake: IV 1350 1050 350 D5-0.45% NaCl with KCl 400 50 20Meq/l 1,000 ml @ 50 mls /hr IV .Q20H [facility] Rx#: [id number] Dextrose 5%-0.9% NaCl 1, 700 350 000 ml @ 100 mls/hr IV . Q10H [facility] Rx#:[id number] Magnesium Sulfate-D5w Pmx 100 1 gm In Dextrose/Water 1 100ml.bag @ 100 mls/hr IVPB ONCE ONE Rx#: [id number] Potassium Chloride 10 meq 200 200 In Water For Injection 1 100ml.bag @ 100 mls/hr IVPB Q1H [facility] Rx#: [id number] Sodium Chloride 0.9% 1, 500 000 ml @ 999 mls/hr IV . Q1H1M [facility] Rx#:[id number] Sodium Phosphate 60 mmol 250 In Dextrose 5% in Water 250 ml @ 45 mls/hr IVPB ONCE ONE Rx#:[id number] Oral 360 360 Output: Urine 195 230 190 Other: Voiding Method Indwelling Catheter Indwelling Catheter Indwelling Catheter Weight 59.6 kg 59.6 kg patient is awake, comfortable, no acute distress. Examination of the heart S1 and S2 Examination of the lungs good air entry bilaterally Abdomen is soft nontender Examination of lower extremities shows no significant edema [employer] exam grossly intact Results - Lab Results Most recent lab results Calcium 7.0 mg/dL (8.4-10.2) L 03/31/24 04:22 Phosphorus 4.2 mg/dL (2.5-4.5) 03/31/24 04:22 Magnesium 1.9 mg/dL (1.6-2.3) 03/31/24 04:22 03/31/24 04:22 03/31/24 04:22 Assessment and Plan Assessment: 1. Acute kidney injury associated with volume depletion, improved with IV hydration 2. Severe metabolic acidosis secondary to DKA, now resolved. Status post insulin drip 3. Volume depletion 4. Hypophosphatemia associated with correction of DKA, status post replacement Plan: encouraged increased oral intake Repeat labs in a.m. Management of diabetes as per primary service.
[2024-03-31] MEDS ORDERED: Potassium Replacement Protocol 1 EACH MISC MISCELLANE PRN (12:12)
--- NOTE | 2024-03-31 15:44 | P.PN ---
Subjective Progress Note Date: 03/31/24 This is a 64-year-old female patient with extensive number of medical problems and comorbidities who was supposed to have an aortogram on outpatient basis. Upon arrival to the hospital, the patient was found to be in DKA. Noted the patient is diabetic and she is insulin-dependent. She was in anion gap metabolic acidosis. Her initial anion gap was her 33 with a serum bicarb level of 6. BUN was 41 with a creatinine of 1.6. Blood sugar was 603. The patient was not admitted to the intensive care unit. The patient was managed on the medical floor and subsequently, the anion gap closed and this morning, the gap was down to 8 with a bicarb level of 23. BUN is at 48 with a creatinine of 1.4. Nevertheless, the patient became hypotensive. Systolic blood pressure dropped in the 70s. The heart rate was sinus in the mid 80s. Afebrile. No nausea. No emesis. No chest pain. No altered mentation and the patient was feeling weak and lethargic. Based on that, the patient got transferred to the intensive care unit. Currently she is on no pressors and the patient is being resuscitated with IV fluids. A total of 2 L of normal saline will be given immediately. Phosphorus level is at 0.9 and needs to be replaced. Potassium level is at 3.8. The white cell count is 5.1 with a hemoglobin 11.2 and a platelet count of 2 4. She is known to have extensive number of medical problems and comorbidities and this includes insulin-dependent diabetes mellitus, coronary artery disease, previous history of CVA, history of left renal carcinoma with partial nephrectomy, history of DVT of the left lower extremity approximately 7 to 8 years ago, chronic back pain degenerative arthritis along with peripheral neuropathy and restless leg and previous history of infection with a ESBL producing E. coli. She is also noted rheumatoid arthritis, hypertension, hyperlipidemia and peripheral vascular disease and the patient has stenosis of the short segment of the right [employer] as noted on a recent CTA of the aorta. For now, the patient is in the intensive care unit regarding hypotension. On 03/31/2024, the patient is being seen in follow-up in the intensive care unit. The patient remained hemodynamically stable. She is fully recovered from her DKA. She is normotensive for now. She is on IV Rocephin regarding an underlying suspected urine tract infection. Cultures are still pending for now. She is afebrile. White cell count down to 4.3 with a hemoglobin 9.1 and a platelet count of 173. Her gap is at 8 with a serum bicarb of 19 with a BUN of 35 with a creatinine of 1.1. She had severe hypophosphatemia and this has been replaced. Phosphorus level is currently up to 4.2 with a magnesium level of 1.9. Potassium level is currently at 3.9. The patient has been transitioned to long-acting insulin and the patient is currently on Levemir insulin 15 mL twice daily and she is also receiving NovoLog 5 units with meals 3 times daily plus a sliding scale coverage. No other new complaints otherwise for now. The patient will be transferred to the medical floor. Objective - Vital Signs Vital signs: Vital Signs Temp 96.8 F L 03/31/24 08:00 Pulse 76 03/31/24 09:00 Resp 14 03/31/24 09:00 BP 112/62 03/31/24 09:00 Pulse Ox 97 03/31/24 09:00 FiO2 Intake & Output 03/30/24 03/31/24 03/31/24 18:59 06:59 18:59 Intake Total 3158.996 1250 540 Output Total 160 305 140 Balance 2998.996 945 400 Weight 50.802 kg 59.6 kg Intake: IV 2750 1250 300 D5-0.45% NaCl with KCl 300 250 20Meq/l 1,000 ml @ 50 mls /hr IV .Q20H [facility] Rx#: [id number] Dextrose 5%-0.9% NaCl 1, 700 300 000 ml @ 100 mls/hr IV . Q10H [facility] Rx#:[id number] Magnesium Sulfate-D5w Pmx 100 1 gm In Dextrose/Water 1 100ml.bag @ 100 mls/hr IVPB ONCE ONE Rx#: [id number] Potassium Chloride 10 meq 200 200 In Water For Injection 1 100ml.bag @ 100 mls/hr IVPB Q1H [facility] Rx#: [id number] Sodium Chloride 0.9% 1, 2000 000 ml @ 999 mls/hr IV . Q1H1M [facility] Rx#:[id number] Sodium Phosphate 60 mmol 250 In Dextrose 5% in Water 250 ml @ 45 mls/hr IVPB ONCE ONE Rx#:[id number] Intake, IV Titration 48.996 Amount Insulin Regular 100 unit 48.996 In Sodium Chloride 0.9% 100 ml @ 0.1 UNITS/KG/HR 5.131 mls/hr IV .[id number] [facility] Rx#:[id number] Oral 360 240 Output: Urine 160 305 140 Other: Voiding Method Diaper Indwelling Catheter Indwelling Catheter Incontinent # Voids 1 - Exam General Appearance: Awake and alert on room air oxygen Neck HEENT: Supple, no lymphadenopathy, no thyroid enlargement, no carotid bruits. Lungs: Clear to auscultation without crackles or wheezes no rhonchi, no deformity. Chest Wall: Normal expansion with slight tenderness, slightly at resuscitation. And no deformity was found on exam, no costochondral pain or discomfort. Heart: Regular rate and rhythm, S1, S2 normal, no murmur, rub or gallop. Back: Symmetric, no curvature, ROM normal, no CVA tenderness. Abdomen: Soft, non-tender, bowel sounds active all four quadrants, no masses, no organomegaly. Extremities: Extremities normal, atraumatic, no cyanosis or edema. Pulses: Extremities are warm and the patient with diminished pulses in lower extremities bilaterally Skin: Skin color, texture, tugor normal, no rashes or lesions. Neurologic: Neurologically, the patient is awake and alert and the patient does not have any focal neurological deficit. Cranial nerves are essentially intact. - Labs CBC & Chem 7: 03/31/24 04:22 03/31/24 04:22 Labs: Abnormal Lab Results - Last 24 Hours (Table) 03/30/24 03/30/24 03/30/24 Range/Units 09:59 10:45 11:05 RBC (3.80-5.40) m/uL Hgb (11.4-16.0) gm/dL Hct (34.0-46.0) % RDW (11.5-15.5) % Lymphocytes # (1.0-4.8) k/uL Chloride 108 H (98-107) mmol/L Carbon Dioxide (22-30) mmol/L BUN 48 H (7-17) mg/dL Creatinine 1.40 H (0.52-1.04) mg/dL Glucose 156 H (74-99) mg/dL POC Glucose (mg/dL) 196 H 150 H (70-110) mg/dL Hemoglobin A1c (<=6.0) % Calcium (8.4-10.2) mg/dL Phosphorus 0.9 L* (2.5-4.5) mg/dL Urine Appearance (Clear) Urine Protein (Negative) Urine Glucose (UA) (Negative) Urine Ketones (Negative) Urine Blood (Negative) Urine Bilirubin (Negative) Ur Leukocyte Esterase (Negative) Urine WBC (0-5) /hpf Urine WBC Clumps (None) /hpf Urine Bacteria (None) /hpf Hyaline Casts (0-2) /lpf Urine Mucus (None) /hpf 03/30/24 03/30/24 03/30/24 Range/Units 12:04 12:35 13:20 RBC (3.80-5.40) m/uL Hgb (11.4-16.0) gm/dL Hct (34.0-46.0) % RDW (11.5-15.5) % Lymphocytes # (1.0-4.8) k/uL Chloride (98-107) mmol/L Carbon Dioxide (22-30) mmol/L BUN (7-17) mg/dL Creatinine (0.52-1.04) mg/dL Glucose (74-99) mg/dL POC Glucose (mg/dL) 148 H 122 H (70-110) mg/dL Hemoglobin A1c (<=6.0) % Calcium (8.4-10.2) mg/dL Phosphorus (2.5-4.5) mg/dL Urine Appearance Cloudy H (Clear) Urine Protein 1+ H (Negative) Urine Glucose (UA) 4+ H (Negative) Urine Ketones 2+ H (Negative) Urine Blood Trace H (Negative) Urine Bilirubin 1+ H (Negative) Ur Leukocyte Esterase Large H (Negative) Urine WBC >182 H (0-5) /hpf Urine WBC Clumps Moderate H (None) /hpf Urine Bacteria Many H (None) /hpf Hyaline Casts 9 H (0-2) /lpf Urine Mucus Occasional H (None) /hpf 03/30/24 03/30/24 03/30/24 Range/Units 16:50 21:04 23:00 RBC (3.80-5.40) m/uL Hgb (11.4-16.0) gm/dL Hct (34.0-46.0) % RDW (11.5-15.5) % Lymphocytes # (1.0-4.8) k/uL Chloride (98-107) mmol/L Carbon Dioxide (22-30) mmol/L BUN (7-17) mg/dL Creatinine (0.52-1.04) mg/dL Glucose (74-99) mg/dL POC Glucose (mg/dL) 222 H 167 H (70-110) mg/dL Hemoglobin A1c (<=6.0) % Calcium (8.4-10.2) mg/dL Phosphorus 6.0 H (2.5-4.5) mg/dL Urine Appearance (Clear) Urine Protein (Negative) Urine Glucose (UA) (Negative) Urine Ketones (Negative) Urine Blood (Negative) Urine Bilirubin (Negative) Ur Leukocyte Esterase (Negative) Urine WBC (0-5) /hpf Urine WBC Clumps (None) /hpf Urine Bacteria (None) /hpf Hyaline Casts (0-2) /lpf Urine Mucus (None) /hpf 03/31/24 03/31/24 03/31/24 Range/Units 04:22 04:22 04:22 RBC 2.96 L (3.80-5.40) m/uL Hgb 9.1 L D (11.4-16.0) gm/dL Hct 27.0 L (34.0-46.0) % RDW 15.6 H (11.5-15.5) % Lymphocytes # 0.9 L (1.0-4.8) k/uL Chloride 110 H (98-107) mmol/L Carbon Dioxide 19 L (22-30) mmol/L BUN 35 H (7-17) mg/dL Creatinine 1.14 H (0.52-1.04) mg/dL Glucose 200 H (74-99) mg/dL POC Glucose (mg/dL) (70-110) mg/dL Hemoglobin A1c >18.0 H (<=6.0) % Calcium 7.0 L (8.4-10.2) mg/dL Phosphorus (2.5-4.5) mg/dL Urine Appearance (Clear) Urine Protein (Negative) Urine Glucose (UA) (Negative) Urine Ketones (Negative) Urine Blood (Negative) Urine Bilirubin (Negative) Ur Leukocyte Esterase (Negative) Urine WBC (0-5) /hpf Urine WBC Clumps (None) /hpf Urine Bacteria (None) /hpf Hyaline Casts (0-2) /lpf Urine Mucus (None) /hpf 03/31/24 Range/Units 06:53 RBC (3.80-5.40) m/uL Hgb (11.4-16.0) gm/dL Hct (34.0-46.0) % RDW (11.5-15.5) % Lymphocytes # (1.0-4.8) k/uL Chloride (98-107) mmol/L Carbon Dioxide (22-30) mmol/L BUN (7-17) mg/dL Creatinine (0.52-1.04) mg/dL Glucose (74-99) mg/dL POC Glucose (mg/dL) 266 H (70-110) mg/dL Hemoglobin A1c (<=6.0) % Calcium (8.4-10.2) mg/dL Phosphorus (2.5-4.5) mg/dL Urine Appearance (Clear) Urine Protein (Negative) Urine Glucose (UA) (Negative) Urine Ketones (Negative) Urine Blood (Negative) Urine Bilirubin (Negative) Ur Leukocyte Esterase (Negative) Urine WBC (0-5) /hpf Urine WBC Clumps (None) /hpf Urine Bacteria (None) /hpf Hyaline Casts (0-2) /lpf Urine Mucus (None) /hpf Assessment and Plan Plan: Hypotension, likely hypovolemic in nature in the setting of a acute DKA. The patient's anion gap metabolic acidosis closed and there is no significant acidosis. Nevertheless, the patient remains hypotensive and should respond to IV fluids. Doubt cardiogenic or septic shock at this point in time. Patient is currently on IV fluids and the patient has recovered and the patient is currently normotensive and she has not required any pressors. She is also recovering from her DKA. DKA, recovered Acute kidney injury, likely secondary to testicle volume depletion, improving Altered mental status, recovered and the patient has normal mentation for now Multivessel coronary artery disease Moderate CAD in Mid LAD Moderate CAD in LCx CHF with mild impairment of the LV function with an ejection fraction of 40 to 45% History of renal cell carcinoma with a partial nephrectomy on the right Remote history of DVT Hypothyroidism Hyperlipidemia Diabetic peripheral neuropathy COPD Peripheral vascular disease with stenosis of the right [employer] History of depression Gastroparesis Previous history of CVA x 4 Electrolyte imbalance including hypomagnesemia and hypophosphatemia, all replaced Plan Will monitor the blood pressure is stable N the patient has been transitioned to Levemir insulin 5 units 15 units twice daily along with NovoLog with meals and sliding scale coverage. Continue D5 half-normal saline at rate of 50 cc an hour Electrolytes have been replaced Patient is currently on room air oxygen Monitor renal function the patient has a Mccann catheter is producing adequate amount of urine output The patient will be transferred to medical floor. Hemodynamically stable at this point in time. Metoprolol can be resumed.
[2024-03-31 16:42] LABS: Glucose,Whole Blood 84 mg/dL (70-110)
[2024-03-31] MEDS: ACETAMINOPHEN TAB 325 MG TAB PO PRN (16:56)
--- NOTE | 2024-03-31 19:51 | CDI ---
Documentation Clarification Form Date: 03/31/2024 07:22:31 PM From: Karina Manzanares RN, CCDS Phone: [phone] Admit Date: 03/29/2024 05:01:00 PM Patient Name: Lala Kenyon Visit Number: [id number] Discharge Date: ATTENTION: The Clinical Documentation Specialists (CDI) and [facility] Coding Staff appreciate your assistance in clarifying documentation. Please respond to the clarification below the line at the bottom and electronically sign. The CDI & [facility] Coding staff will review the response and follow-up if needed. Please note: Queries are made part of the Legal Health Record. If you have any questions, please contact the author of this message via ITS. Doctor/Provider: Gage Yossi Your patient has altered mental status mostly from severe hypoglycemia and hyponatremia documented in your H/P and subsequent progress note and she present with DKA. Additional clarification regarding the etiology/cause of this symptom is requested. History/Risk Factors: Coronary Artery Disease (CAD), Cancer, COPD, CVA/TIA, Hyperlipidemia, Hypertension Diabetes Mellitus, Deep Vein Thrombosis Clinical Indicators: 64-year-old female presenting to the ED pretesting was done and showed blood sugar of over 1000, 988, Na+ 131, K+ 5.7, Chloride 86, C02 <2, Lactic acid 2.1 Mg+ 2.9, Acetone -Positive She was incoherent drowsy and sluggish not answering question appropriately does not look in any distress. Alert significantly confused. 03/29 VS 101/76 85 18 97.9 100% RA Treatment: Blood Glucose Monitoring SQ and BG Monitoring Insulin sets ACHS Consult to Dietitian -Discussion, Handout (refused) Novolog 5 units SQ AC-TID., Levemir 15-unit SQ BID 2099 Please clarify the etiology of the symptom of Altered Mental Status: [ xx ] Metabolic encephalopathy due to severe hyperglycemia and hyponatremia [ ] Other condition (please specify [ ] Unable to determine (Template Last Revised: July 2020) MTDD
[2024-03-31 20:21] LABS: Glucose,Whole Blood 65 mg/dL (70-110)
[2024-03-31 20:40] LABS: Glucose,Whole Blood 63 mg/dL (70-110)
[2024-03-31] MEDS: INSULIN DETEMIR (LEVEMIR) 100 UNIT/ML SYR SQ SCH (20:49)
[2024-03-31] MEDS: LOSARTAN 50 MG TAB PO SCH (20:53)
[2024-03-31 21:13] LABS: Glucose,Whole Blood 101 mg/dL (70-110)
--- NOTE | 2024-04-01 06:03 | P.PN ---
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 Patient has been home and has been back to see her primary care physician and solutions analyst apparently will schedule with her solutions analyst to go for aortogram pretesting was done and showed blood sugar of over 1000 with abnormal sodium and creatinine patient was called and directed to go to the emergency department for the above problem. Was seen and evaluated Initial blood sugar was over 600 988, creatinine 1.79 with GFR down to 30 with GFR was above 70 when she left the hospital around March 05. Patient was started on DKA protocol will consult nephrology continue DKA management with IV insulin along with hydration till her blood sugar is down to below 200. Sadly her pH was 7.05 and HCO3 of 9 sodium 131 potassium 5.7 with a chloride of 86. Patient does not have a clear answer to why her blood sugar high she keep referring to herself and she is doing everything possible and asked by her ed case manager and primary care when the truth of the matter that even when she of the hospital last time was only using a few units of longer acting insulin and a few units of NovoLog AC meals plus sliding scales coverage for total of insulin hardly exceed 40 units a day. Was started on SGLT2 product which increased out of UTI but has no UTI since. Her procedure with her solutions analyst was expected from the last few admission. 03/30/2024: Blood sugar dropped down finally around 200 she is remain on D5.45 with bicarbonate, magnesium is much better calcium is slightly bit low at 7.0. Urine test returned to be slightly bit positive with mild purulence is traumatic from catheter or not. Patient on Rocephin as well. Patient is not awake and that well she usually does this every time by staying in bed could more alter however drowsy and sleepy for longer time before finally awaking. Otherwise clinical judgment exam still making good to review her chest x-ray from her admission does not show any sign of infiltrate or infection, her EKG continued to be mild sinus tachycardia around 103 with partial bundle branch block. The patient is to be continue on hydration her kidney function is holding well at this point. 03/31/2024: Last evening patient has slight decreased level of response was more drowsy fatigue and tired vitals are down, blood sugar has improved at the time and DKA become little bit more stable UTI been treated with IV antibiotics despite all the fact patient had decline the a team was called to see her and was transferred to the ICU even her blood sugar and lab are improving significantly at the time still quite bit acidotic the kidney function improved significantly. After still in the ICU felt much better afterwards still slurred her words when she talk as she does not normally no change sadly her A1c tested at 18.0 and again that proved to Fery since she left last time did not take any insulin as she always does. Despite all the help provided in our office with the support by vp patient and nurse practitioner making a phone call for medication reconciliation and such patient still failed to maintain following any order or command on the quite sure why trying to remember to help or her guardian apparently she lives with her boyfriend who have not received for the last 2 years looking at her blood sugar as soon as she started on the long acting insulin her blood sugars start dropping down. Will continue current management and asking the social staff worker for probably help with home care and more support may be she if he can convince the boyfriend to come in to talk and have him aware of is going on maybe being in charge of insulin instead of Lala herself doing it. REVIEW OF SYSTEMS: CONSTITUTIONAL: Well-developed still incoherent drowsy and sluggish not answering question appropriately does not look in any distress. EYES: No icterus sclerae, no conjunctivitis. EARS, NOSE, MOUTH, THROAT, and FACE: No sore throat, lymphadenopathy, carotid bruits or deformity. RESPIRATORY: No SOB cough or wheezes. CARDIOVASCULAR: No CP, Palpitation, PND, Orthopnea, or angina. GASTROINTESTINAL: No Abd pain, Nausea or vomiting, no Diarrhea or constipation, No GI Bleed, no distention or masses. GENITOURINARY: Mostly incontinence no kidney stone or bloody urine. INTEGUMENT/BREAST: Generalized muscle and joint pain. HEMATOLOGIC/LYMPHATIC: Negative for bleed or purpura. MUSCULOSKELTAL: Myalgia and arthralgia with lower back pain. NEURLOGICAL: Had seizure activity with incoherence significant cephalopathy and not been able to answer any question appropriately at this point. BEHAVIORAL/PSYCH: Negative. ENDOCRINE: Negative. PHYSICAL EXAMINATION: General Appearance: She is opening her eyes not able to answer yet does not look in any respiratory distress. Neck HEENT: Supple, no lymphadenopathy, no thyroid enlargement, no carotid bruits. Lungs: Clear to auscultation without crackles or wheezes no rhonchi, no deformity. Chest Wall: Normal expansion with slight tenderness, slightly at resuscitation. And no deformity was found on exam, no costochondral pain or discomfort. Heart: Regular rate and rhythm, S1, S2 normal, no murmur, rub or gallop. Back: Symmetric, no curvature, ROM normal, no CVA tenderness. Abdomen: Soft, non-tender, bowel sounds active all four quadrants, no masses, no organomegaly. Extremities: Extremities normal, atraumatic, no cyanosis or edema. Pulses: 2+ and symmetric. Skin: Skin color, texture, tugor normal, no rashes or lesions. Neurologic: Alert significantly confused cranial nerves II through XII intact, generalized weakness bilaterally, not been able to do gait exam. ASSESSMENT AND PLAN: _Severe hyperosmolar lactic acidosis DKA:. Her blood sugar is down continue Levemir at 15 units twice a day and NovoLog 5 unit AC meals plus sliding scales try to watch him for hypoglycemia like she did last time her Farxiga will be resumed and increase diet. _Type 2 diabetes not well-controlled: Not clear again why patient keeps failing to maintain her ability to give herself insulin same way same calculation goes from last time the final insulin dose she does usually daily it range less than 45 to 50 units will split between the long and short acting insulin will be a lot easier to manage but looking at her A1c being 18 I do not believe patient has giving herself insulin at all since she left the hospital last time and every time she comes in to try to see if we can get her into go into subacute rehab because of her ability to walk and ambulate able to feed herself and being independent insurance do not allow her to go to subacute rehab which again is not going to be anything more than stretch of babysitting for somebody to over giving her insulin until she is ready to go home on her own and is the same. Probably the best way to help her is really to have somebody involved to come into the house 3 times a week for few weeks make sure insulin done on time. Patient will be going back to the office on weekly basis for the next few weeks and she should see her ed case manager again at least once a month. _Acute kidney injury: Kidney function is improved despite the fact she has probably stage II chronic kidney disease with anytime she does anything she in danger and risk of kidney becoming stage III. _UTI with not clear whether that is the cause of her DKA or not this time but UA is positive waiting for culture Rocephin 1 g can be giving daily till the culture is complete. _Known to have atherosclerotic heart disease and recurrent angina and significant chest pain with known coronary artery disease with multiple blockage was supposed to go for an angiogram mostly heart. Altered mental status: Combination of DKA, and infection continue to treat underlying disease watch symptoms carefully. No sign of stroke so far or mini stroke. Mentation to be watched with carefully. _Severe hypothyroidism: Again most likely from noncompliant to medication 100 mcg of levothyroxine can be given IV and switch patient to oral soon as she is able to swallow. Multiple coronary artery disease last angiogram was in June 06, 2023 with mild LAD mild circumflex completely blockage in the RCA. The patient will be on medical management only. Hypothyroidism: Continue levothyroxine 250 mcg daily. Will continue medica tion. Hyperlipidemia: Remain on rosuvastatin 40 mg a day with LDL has been below 70. COPD: She is on her updraft treatment does not require any oxygen she is on steroids is inhaler as well. Mild PAD has been on Pletal 100 mg twice a day. Hypertension: Continue losartan 25 mg a day and metoprolol succinate 50 mg daily. Chronic diabetic neuropathy: Has been on gabapentin 600 mg 3 times a day. Will hold off on gabapentin for the next 24 hours. Chronic depression: Has been on Effexor XR 225 mcg daily along with mirtazapine 7.5 mg at bedtime. Gastroparesis with recurrent episode of nausea and vomiting has been on Zofran, Protonix and Reglan. Discussion: Hopefully patient be transferred out of the ICU today she is doing very well titrate physical therapy and activity talk to the social staff worker probably the plan is to allow patient to go home in the next 24 to 48 hours have further follow-up in the office and with phone call by vp patient and her PCP along with her ed case manager at least once a week also patient can have visiting nurse probably maintained him for a while to make sure is taking her insulin on time. Objective - Vital Signs Vital signs: Vital Signs Temp 98.1 F 03/31/24 04:00 Pulse 69 03/31/24 05:00 Resp 10 L 03/31/24 05:00 BP 104/62 03/31/24 05:00 Pulse Ox 95 03/31/24 05:00 FiO2 Intake & Output 03/30/24 03/30/24 03/31/24 06:59 18:59 06:59 Intake Total 75.549 3158.996 1150 Output Total 0 160 245 Balance 75.549 2998.996 905 Weight 50.802 kg 59.6 kg Intake: IV 2750 1150 D5-0.45% NaCl with KCl 300 250 20Meq/l 1,000 ml @ 50 mls /hr IV .Q20H [facility] Rx#: [id number] Dextrose 5%-0.9% NaCl 1, 600 000 ml @ 100 mls/hr IV . Q10H [facility] Rx#:[id number] Magnesium Sulfate-D5w Pmx 100 1 gm In Dextrose/Water 1 100ml.bag @ 100 mls/hr IVPB ONCE ONE Rx#: [id number] Potassium Chloride 10 meq 200 200 In Water For Injection 1 100ml.bag @ 100 mls/hr IVPB Q1H [facility] Rx#: [id number] Sodium Chloride 0.9% 1, 2000 000 ml @ 999 mls/hr IV . Q1H1M [facility] Rx#:[id number] Sodium Phosphate 60 mmol 250 In Dextrose 5% in Water 250 ml @ 45 mls/hr IVPB ONCE ONE Rx#:[id number] Intake, IV Titration 75.549 48.996 Amount Insulin Regular 100 unit 75.549 48.996 In Sodium Chloride 0.9% 100 ml @ 0.1 UNITS/KG/HR 5.131 mls/hr IV .[id number] [facility] Rx#:[id number] Oral 360 Output: Urine 0 160 245 Other: Voiding Method Bedpan Diaper Indwelling Catheter Incontinent # Voids 1 - Labs CBC & Chem 7: 03/31/24 04:22 03/31/24 04:22 Labs: Abnormal Lab Results - Last 24 Hours (Table) 03/30/24 03/30/24 03/30/24 Range/Units 06:02 07:02 07:05 RBC 3.74 L (3.80-5.40) m/uL Hgb 11.2 L (11.4-16.0) gm/dL Hct 33.5 L (34.0-46.0) % RDW (11.5-15.5) % Lymphocytes # (1.0-4.8) k/uL Chloride (98-107) mmol/L Carbon Dioxide (22-30) mmol/L BUN (7-17) mg/dL Creatinine (0.52-1.04) mg/dL Glucose (74-99) mg/dL POC Glucose (mg/dL) 363 H 277 H (70-110) mg/dL Calcium (8.4-10.2) mg/dL Phosphorus (2.5-4.5) mg/dL Total Protein (6.3-8.2) g/dL Urine Appearance (Clear) Urine Protein (Negative) Urine Glucose (UA) (Negative) Urine Ketones (Negative) Urine Blood (Negative) Urine Bilirubin (Negative) Ur Leukocyte Esterase (Negative) Urine WBC (0-5) /hpf Urine WBC Clumps (None) /hpf Urine Bacteria (None) /hpf Hyaline Casts (0-2) /lpf Urine Mucus (None) /hpf 03/30/24 03/30/24 03/30/24 Range/Units 07:05 08:05 09:05 RBC (3.80-5.40) m/uL Hgb (11.4-16.0) gm/dL Hct (34.0-46.0) % RDW (11.5-15.5) % Lymphocytes # (1.0-4.8) k/uL Chloride (98-107) mmol/L Carbon Dioxide (22-30) mmol/L BUN 48 H (7-17) mg/dL Creatinine 1.38 H (0.52-1.04) mg/dL Glucose 220 H (74-99) mg/dL POC Glucose (mg/dL) 184 H 194 H (70-110) mg/dL Calcium (8.4-10.2) mg/dL Phosphorus (2.5-4.5) mg/dL Total Protein 6.2 L (6.3-8.2) g/dL Urine Appearance (Clear) Urine Protein (Negative) Urine Glucose (UA) (Negative) Urine Ketones (Negative) Urine Blood (Negative) Urine Bilirubin (Negative) Ur Leukocyte Esterase (Negative) Urine WBC (0-5) /hpf Urine WBC Clumps (None) /hpf Urine Bacteria (None) /hpf Hyaline Casts (0-2) /lpf Urine Mucus (None) /hpf 03/30/24 03/30/24 03/30/24 Range/Units 09:59 10:45 11:05 RBC (3.80-5.40) m/uL Hgb (11.4-16.0) gm/dL Hct (34.0-46.0) % RDW (11.5-15.5) % Lymphocytes # (1.0-4.8) k/uL Chloride 108 H (98-107) mmol/L Carbon Dioxide (22-30) mmol/L BUN 48 H (7-17) mg/dL Creatinine 1.40 H (0.52-1.04) mg/dL Glucose 156 H (74-99) mg/dL POC Glucose (mg/dL) 196 H 150 H (70-110) mg/dL Calcium (8.4-10.2) mg/dL Phosphorus 0.9 L* (2.5-4.5) mg/dL Total Protein (6.3-8.2) g/dL Urine Appearance (Clear) Urine Protein (Negative) Urine Glucose (UA) (Negative) Urine Ketones (Negative) Urine Blood (Negative) Urine Bilirubin (Negative) Ur Leukocyte Esterase (Negative) Urine WBC (0-5) /hpf Urine WBC Clumps (None) /hpf Urine Bacteria (None) /hpf Hyaline Casts (0-2) /lpf Urine Mucus (None) /hpf 03/30/24 03/30/24 03/30/24 Range/Units 12:04 12:35 13:20 RBC (3.80-5.40) m/uL Hgb (11.4-16.0) gm/dL Hct (34.0-46.0) % RDW (11.5-15.5) % Lymphocytes # (1.0-4.8) k/uL Chloride (98-107) mmol/L Carbon Dioxide (22-30) mmol/L BUN (7-17) mg/dL Creatinine (0.52-1.04) mg/dL Glucose (74-99) mg/dL POC Glucose (mg/dL) 148 H 122 H (70-110) mg/dL Calcium (8.4-10.2) mg/dL Phosphorus (2.5-4.5) mg/dL Total Protein (6.3-8.2) g/dL Urine Appearance Cloudy H (Clear) Urine Protein 1+ H (Negative) Urine Glucose (UA) 4+ H (Negative) Urine Ketones 2+ H (Negative) Urine Blood Trace H (Negative) Urine Bilirubin 1+ H (Negative) Ur Leukocyte Esterase Large H (Negative) Urine WBC >182 H (0-5) /hpf Urine WBC Clumps Moderate H (None) /hpf Urine Bacteria Many H (None) /hpf Hyaline Casts 9 H (0-2) /lpf Urine Mucus Occasional H (None) /hpf 03/30/24 03/30/24 03/30/24 Range/Units 16:50 21:04 23:00 RBC (3.80-5.40) m/uL Hgb (11.4-16.0) gm/dL Hct (34.0-46.0) % RDW (11.5-15.5) % Lymphocytes # (1.0-4.8) k/uL Chloride (98-107) mmol/L Carbon Dioxide (22-30) mmol/L BUN (7-17) mg/dL Creatinine (0.52-1.04) mg/dL Glucose (74-99) mg/dL POC Glucose (mg/dL) 222 H 167 H (70-110) mg/dL Calcium (8.4-10.2) mg/dL Phosphorus 6.0 H (2.5-4.5) mg/dL Total Protein (6.3-8.2) g/dL Urine Appearance (Clear) Urine Protein (Negative) Urine Glucose (UA) (Negative) Urine Ketones (Negative) Urine Blood (Negative) Urine Bilirubin (Negative) Ur Leukocyte Esterase (Negative) Urine WBC (0-5) /hpf Urine WBC Clumps (None) /hpf Urine Bacteria (None) /hpf Hyaline Casts (0-2) /lpf Urine Mucus (None) /hpf 03/31/24 03/31/24 Range/Units 04:22 04:22 RBC 2.96 L (3.80-5.40) m/uL Hgb 9.1 L D (11.4-16.0) gm/dL Hct 27.0 L (34.0-46.0) % RDW 15.6 H (11.5-15.5) % Lymphocytes # 0.9 L (1.0-4.8) k/uL Chloride 110 H (98-107) mmol/L Carbon Dioxide 19 L (22-30) mmol/L BUN 35 H (7-17) mg/dL Creatinine 1.14 H (0.52-1.04) mg/dL Glucose 200 H (74-99) mg/dL POC Glucose (mg/dL) (70-110) mg/dL Calcium 7.0 L (8.4-10.2) mg/dL Phosphorus (2.5-4.5) mg/dL Total Protein (6.3-8.2) g/dL Urine Appearance (Clear) Urine Protein (Negative) Urine Glucose (UA) (Negative) Urine Ketones (Negative) Urine Blood (Negative) Urine Bilirubin (Negative) Ur Leukocyte Esterase (Negative) Urine WBC (0-5) /hpf Urine WBC Clumps (None) /hpf Urine Bacteria (None) /hpf Hyaline Casts (0-2) /lpf Urine Mucus (None) /hpf
[2024-04-01 06:18] LABS: Glucose,Whole Blood 291 mg/dL (70-110)
[2024-04-01] MEDS: INSULIN DETEMIR (LEVEMIR) 100 UNIT/ML SYR SQ SCH (06:24)
[2024-04-01] MEDS: INSULIN ASPART (NovoLOG) 100 UNIT/ML VIAL SQ SCH (06:25)
[2024-04-01] MEDS: POTAS-SOD-PHOS 278-164-250 MG 1 EACH PACKET PO SCH (10:41)
[2024-04-01] MEDS: BUTALB/APAP/CAFF 50-325-40MG TAB PO PRN (10:41)
[2024-04-01 11:25] LABS: African American GFR (CKD) 82 (>60 ml/min/1.73 sqM); Anion Gap 5 mmol/L; Blood Urea Nitrogen 17 mg/dL (7-17); Calcium 7.4 mg/dL (8.4-10.2); Carbon Dioxide 19 mmol/L (22-30); Chloride 109 mmol/L (98-107); Glucose 288 mg/dL (74-99); Non-African American GFR(CKD) 71 (>60 ml/min/1.73 sqM); Potassium 4.5 mmol/L (3.5-5.1); Sodium 133 mmol/L (137-145)
[2024-04-01 12:10] LABS: Glucose,Whole Blood 238 mg/dL (70-110)
--- NOTE | 2024-04-01 12:51 | P.PN ---
Subjective patient is seen for follow-up for acute kidney injury. No significant complaints today. Labs not available Objective - Vital Signs Vital signs: Vital Signs Temp 97.0 F L 04/01/24 08:00 Pulse 85 04/01/24 11:12 Resp 16 04/01/24 11:12 BP 118/74 04/01/24 11:12 Pulse Ox 97 04/01/24 11:12 FiO2 Intake & Output 03/31/24 04/01/24 04/01/24 18:59 06:59 18:59 Intake Total 946 236 180 Output Total 222 375 Balance 724 -139 180 Weight 59.6 kg 57.7 kg Intake: IV 350 Dextrose 5%-0.9% NaCl 1, 350 000 ml @ 100 mls/hr IV . Q10H [facility] Rx#:[id number] Oral 596 236 180 Output: Urine 222 375 Other: Voiding Method Indwelling Catheter Indwelling Catheter Indwelling Catheter # Voids 1 # Emeses 0 - Exam patient is awake, comfortable, no acute distress. Examination of the heart S1 and S2 Examination of the lungs good air entry bilaterally Abdomen is soft nontender Examination of lower extremities shows no significant edema [employer] SERVICE [employer] exam grossly intact - Labs CBC & Chem 7: 03/31/24 04:22 04/01/24 10:29 Labs: Abnormal Lab Results - Last 24 Hours (Table) 03/31/24 03/31/24 04/01/24 Range/Units 20:20 20:38 06:16 Sodium (137-145) mmol/L Chloride (98-107) mmol/L Carbon Dioxide (22-30) mmol/L Glucose (74-99) mg/dL POC Glucose (mg/dL) 65 L 63 L 291 H (70-110) mg/dL Calcium (8.4-10.2) mg/dL Phosphorus (2.5-4.5) mg/dL 04/01/24 04/01/24 04/01/24 Range/Units 06:37 10:29 12:07 Sodium 133 L (137-145) mmol/L Chloride 109 H (98-107) mmol/L Carbon Dioxide 19 L (22-30) mmol/L Glucose 288 H (74-99) mg/dL POC Glucose (mg/dL) 238 H (70-110) mg/dL Calcium 7.4 L (8.4-10.2) mg/dL Phosphorus 2.0 L (2.5-4.5) mg/dL Microbiology - Last 24 Hours (Table) 03/30/24 13:20 Urine Culture - Preliminary Urine,Voided Gram Neg Bacilli Assessment and Plan Assessment: 1. Acute kidney injury associated with volume depletion, improved with IV hydration 2. Severe metabolic acidosis secondary to DKA, now resolved. Status post insulin drip 3. Volume depletion 4. Hypophosphatemia associated with correction of DKA, status post replacement Plan: check labs today encouraged increased oral intake Management of diabetes as per primary service.
[2024-04-01 17:14] LABS: Glucose,Whole Blood 204 mg/dL (70-110)
--- NOTE | 2024-04-01 17:36 | P.PN ---
Subjective Progress Note Date: 04/01/24 This is a 64-year-old female patient with extensive number of medical problems and comorbidities who was supposed to have an aortogram on outpatient basis. Upon arrival to the hospital, the patient was found to be in DKA. Noted the patient is diabetic and she is insulin-dependent. She was in anion gap metabolic acidosis. Her initial anion gap was her 33 with a serum bicarb level of 6. BUN was 41 with a creatinine of 1.6. Blood sugar was 603. The patient was not admitted to the intensive care unit. The patient was managed on the medical floor and subsequently, the anion gap closed and this morning, the gap was down to 8 with a bicarb level of 23. BUN is at 48 with a creatinine of 1.4. Nevertheless, the patient became hypotensive. Systolic blood pressure dropped in the 70s. The heart rate was sinus in the mid 80s. Afebrile. No nausea. No emesis. No chest pain. No altered mentation and the patient was feeling weak and lethargic. Based on that, the patient got transferred to the intensive care unit. Currently she is on no pressors and the patient is being resuscitated with IV fluids. A total of 2 L of normal saline will be given immediately. Phosphorus level is at 0.9 and needs to be replaced. Potassium level is at 3.8. The white cell count is 5.1 with a hemoglobin 11.2 and a platelet count of 2 4. She is known to have extensive number of medical problems and comorbidities and this includes insulin-dependent diabetes mellitus, coronary artery disease, previous history of CVA, history of left renal carcinoma with partial nephrectomy, history of DVT of the left lower extremity approximately 7 to 8 years ago, chronic back pain degenerative arthritis along with peripheral neuropathy and restless leg and previous history of infection with a ESBL producing E. coli. She is also noted rheumatoid arthritis, hypertension, hyperlipidemia and peripheral vascular disease and the patient has stenosis of the short segment of the right [employer] as noted on a recent CTA of the aorta. For now, the patient is in the intensive care unit regarding hypotension. On 03/31/2024, the patient is being seen in follow-up in the intensive care unit. The patient remained hemodynamically stable. She is fully recovered from her DKA. She is normotensive for now. She is on IV Rocephin regarding an underlying suspected urine tract infection. Cultures are still pending for now. She is afebrile. White cell count down to 4.3 with a hemoglobin 9.1 and a platelet count of 173. Her gap is at 8 with a serum bicarb of 19 with a BUN of 35 with a creatinine of 1.1. She had severe hypophosphatemia and this has been replaced. Phosphorus level is currently up to 4.2 with a magnesium level of 1.9. Potassium level is currently at 3.9. The patient has been transitioned to long-acting insulin and the patient is currently on Levemir insulin 15 mL twice daily and she is also receiving NovoLog 5 units with meals 3 times daily plus a sliding scale coverage. No other new complaints otherwise for now. The patient will be transferred to the medical floor. 04/01/2024, the patient is being seen for a follow-up. Patient is doing well. She is comfortable in bed. No respiratory difficulties. She is on room air oxygen. Blood sugars under good control. The serum bicarb is at 19 with a gap of 5 and a sodium level is at 133. The patient's blood sugars of 204. She remains on Tradjenta and she is also on Levemir insulin 12 units twice daily and 3 units of NovoLog with meals. She remains on IV Rocephin for underlying gram- negative urinary tract infection. Afebrile. Hemodynamically stable. No altered mentation. Calm and comfortable. Tolerating diet. Objective - Vital Signs Vital signs: Vital Signs Temp 97.0 F L 04/01/24 08:00 Pulse 80 04/01/24 08:00 Resp 17 04/01/24 08:00 BP 141/69 04/01/24 08:00 Pulse Ox 98 04/01/24 08:00 FiO2 Intake & Output 03/31/24 04/01/24 04/01/24 18:59 06:59 18:59 Intake Total 946 236 180 Output Total 222 375 Balance 724 -139 180 Weight 59.6 kg 57.7 kg Intake: IV 350 Dextrose 5%-0.9% NaCl 1, 350 000 ml @ 100 mls/hr IV . Q10H [facility] Rx#:[id number] Oral 596 236 180 Output: Urine 222 375 Other: Voiding Method Indwelling Catheter Indwelling Catheter Indwelling Catheter # Voids 0 # Emeses 0 - Exam General Appearance: Awake and alert on room air oxygen Neck HEENT: Supple, no lymphadenopathy, no thyroid enlargement, no carotid bruits. Lungs: Clear to auscultation without crackles or wheezes no rhonchi, no deformity. Chest Wall: Normal expansion with slight tenderness, slightly at resuscitation. And no deformity was found on exam, no costochondral pain or discomfort. Heart: Regular rate and rhythm, S1, S2 normal, no murmur, rub or gallop. Back: Symmetric, no curvature, ROM normal, no CVA tenderness. Abdomen: Soft, non-tender, bowel sounds active all four quadrants, no masses, no organomegaly. Extremities: Extremities normal, atraumatic, no cyanosis or edema. Pulses: Extremities are warm and the patient with diminished pulses in lower extremities bilaterally Skin: Skin color, texture, tugor normal, no rashes or lesions. Neurologic: Neurologically, the patient is awake and alert and the patient does not have any focal neurological deficit. Cranial nerves are essentially intact. - Labs CBC & Chem 7: 03/31/24 04:22 04/01/24 10:29 Labs: Abnormal Lab Results - Last 24 Hours (Table) 03/31/24 03/31/24 03/31/24 Range/Units 11:13 20:20 20:38 POC Glucose (mg/dL) 192 H 65 L 63 L (70-110) mg/dL Phosphorus (2.5-4.5) mg/dL 04/01/24 04/01/24 Range/Units 06:16 06:37 POC Glucose (mg/dL) 291 H (70-110) mg/dL Phosphorus 2.0 L (2.5-4.5) mg/dL Microbiology - Last 24 Hours (Table) 03/30/24 13:20 Urine Culture - Preliminary Urine,Voided Gram Neg Bacilli Assessment and Plan Plan: Hypotension, likely hypovolemic in nature in the setting of a acute DKA. The patient's anion gap metabolic acidosis closed and there is no significant acidosis. Nevertheless, the patient remains hypotensive and should respond to IV fluids. Doubt cardiogenic or septic shock at this point in time. Patient is currently on IV fluids and the patient has recovered and the patient is currently normotensive and she has not required any pressors. She is also recovering from her DKA. DKA, recovered, serum bicarb is at 19 and the gap is closed Acute kidney injury, likely secondary to testicle volume depletion, improving Gram-negative UTI Altered mental status, recovered and the patient has normal mentation for now Multivessel coronary artery disease Moderate CAD in Mid LAD Moderate CAD in LCx CHF with mild impairment of the LV function with an ejection fraction of 40 to 45% History of renal cell carcinoma with a partial nephrectomy on the right Remote history of DVT Hypothyroidism Hyperlipidemia Diabetic peripheral neuropathy COPD Peripheral vascular disease with stenosis of the right [employer] History of depression Gastroparesis Previous history of CVA x 4 Electrolyte imbalance including hypomagnesemia and hypophosphatemia, all replaced Plan Will monitor the blood pressure is stable N the patient has been transitioned to Levemir insulin 12 units twice daily and 3 units of NovoLog with meals and the patient is also on Tradjenta Continue D5 half-normal saline at rate of 50 cc an hour Patient is currently on room air oxygen Monitor renal function the patient has a Mccann catheter is producing adequate amount of urine output Hemodynamically stable at this point in time. Metoprolol can be resumed. Rocephin for a gram-negative urinary tract infection Will follow. Doing well.
[2024-04-01 20:20] LABS: Glucose,Whole Blood 102 mg/dL (70-110)
[2024-04-01 21:23] LABS: Glucose,Whole Blood 96 mg/dL (70-110)
[2024-04-02 05:52] LABS: Glucose,Whole Blood 263 mg/dL (70-110)
--- NOTE | 2024-04-02 06:25 | P.PN ---
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 Patient has been home and has been back to see her primary care physician and wildlife conservation officer apparently will schedule with her wildlife conservation officer to go for aortogram pretesting was done and showed blood sugar of over 1000 with abnormal sodium and creatinine patient was called and directed to go to the emergency department for the above problem. Was seen and evaluated Initial blood sugar was over 600 988, creatinine 1.79 with GFR down to 30 with GFR was above 70 when she left the hospital around March 05. Patient was started on DKA protocol will consult nephrology continue DKA management with IV insulin along with hydration till her blood sugar is down to below 200. Sadly her pH was 7.05 and HCO3 of 9 sodium 131 potassium 5.7 with a chloride of 86. Patient does not have a clear answer to why her blood sugar high she keep referring to herself and she is doing everything possible and asked by her director operations broadcast and primary care when the truth of the matter that even when she of the hospital last time was only using a few units of longer acting insulin and a few units of NovoLog AC meals plus sliding scales coverage for total of insulin hardly exceed 40 units a day. Was started on SGLT2 product which increased out of UTI but has no UTI since. Her procedure with her wildlife conservation officer was expected from the last few admission. 03/30/2024: Blood sugar dropped down finally around 200 she is remain on D5.45 with bicarbonate, magnesium is much better calcium is slightly bit low at 7.0. Urine test returned to be slightly bit positive with mild purulence is traumatic from catheter or not. Patient on Rocephin as well. Patient is not awake and that well she usually does this every time by staying in bed could more alter however drowsy and sleepy for longer time before finally awaking. Otherwise clinical judgment exam still making good to review her chest x-ray from her admission does not show any sign of infiltrate or infection, her EKG continued to be mild sinus tachycardia around 103 with partial bundle branch block. The patient is to be continue on hydration her kidney function is holding well at this point. 03/31/2024: Last evening patient has slight decreased level of response was more drowsy fatigue and tired vitals are down, blood sugar has improved at the time and DKA become little bit more stable UTI been treated with IV antibiotics despite all the fact patient had decline the a team was called to see her and was transferred to the ICU even her blood sugar and lab are improving significantly at the time still quite bit acidotic the kidney function improved significantly. After still in the ICU felt much better afterwards still slurred her words when she talk as she does not normally no change sadly her A1c tested at 18.0 and again that proved to Fery since she left last time did not take any insulin as she always does. Despite all the help provided in our office with the support by cosmetology educator and nurse practitioner making a phone call for medication reconciliation and such patient still failed to maintain following any order or command on the quite sure why trying to remember to help or her guardian apparently she lives with her boyfriend who have not received for the last 2 years looking at her blood sugar as soon as she started on the long acting insulin her blood sugars start dropping down. Will continue current management and asking the social science manager for probably help with home care and more support may be she if he can convince the boyfriend to come in to talk and have him aware of is going on maybe being in charge of insulin instead of Lala herself doing it. 04/01/2024: She seems to do well today had slight episode of hypoglycemia earlier, adjusting her insulin due to 12 units of Levemir twice a day and 3 unit of NovoLog AC meals plus sliding scales coverage, urine culture was positive for Klebsiella susceptible to ciprofloxacin and Rocephin. Patient be switched to Cipro before leaving the hospital. Asking the social science manager to stabilize the patient circumstances at home probably get home "care will be highly recommended even to the extent of finding out if you have any help so far last few discharge patient declined going to SNF with her by herself or insurance company and ended up going home with no caregiver or anybody been in the picture. She claims she had a boyfriend who help her out and never seen him in the office or in the hospital. Also patient was told if she goes home she will need to come back to the office once a week to see either Provider or midlevel or cosmetology educator and she had to keep her continue glucose monitor sensor the whole time to be able to practice back weekly be able to predict what her sugar is doing because I do not believe patient is taking her insulin also she has an appointment apparently in few days to see her director operations broadcast Dr. Guan for follow-up which is obviously patient had missed many appointments in the past. Otherwise patient is improving hopefully she will be able to be discharged tomorrow REVIEW OF SYSTEMS: CONSTITUTIONAL: Well-developed still incoherent drowsy and sluggish not answering question appropriately does not look in any distress. EYES: No icterus sclerae, no conjunctivitis. EARS, NOSE, MOUTH, THROAT, and FACE: No sore throat, lymphadenopathy, carotid bruits or deformity. RESPIRATORY: No SOB cough or wheezes. CARDIOVASCULAR: No CP, Palpitation, PND, Orthopnea, or angina. GASTROINTESTINAL: No Abd pain, Nausea or vomiting, no Diarrhea or constipation, No GI Bleed, no distention or masses. GENITOURINARY: Mostly incontinence no kidney stone or bloody urine. INTEGUMENT/BREAST: Generalized muscle and joint pain. HEMATOLOGIC/LYMPHATIC: Negative for bleed or purpura. MUSCULOSKELTAL: Myalgia and arthralgia with lower back pain. NEURLOGICAL: Had seizure activity with incoherence significant cephalopathy and not been able to answer any question appropriately at this point. BEHAVIORAL/PSYCH: Negative. ENDOCRINE: Negative. PHYSICAL EXAMINATION: General Appearance: She is opening her eyes not able to answer yet does not look in any respiratory distress. Neck HEENT: Supple, no lymphadenopathy, no thyroid enlargement, no carotid bruits. Lungs: Clear to auscultation without crackles or wheezes no rhonchi, no deformity. Chest Wall: Normal expansion with slight tenderness, slightly at resuscitation. And no deformity was found on exam, no costochondral pain or discomfort. Heart: Regular rate and rhythm, S1, S2 normal, no murmur, rub or gallop. Back: Symmetric, no curvature, ROM normal, no CVA tenderness. Abdomen: Soft, non-tender, bowel sounds active all four quadrants, no masses, no organomegaly. Extremities: Extremities normal, atraumatic, no cyanosis or edema. Pulses: 2+ and symmetric. Skin: Skin color, texture, tugor normal, no rashes or lesions. Neurologic: Alert significantly confused cranial nerves II through XII intact, generalized weakness bilaterally, not been able to do gait exam. ASSESSMENT AND PLAN: _Severe hyperosmolar lactic acidosis DKA:. Change her insulin to 12 units of Levemir and 3 units of NovoLog AC meals plus sliding scales coverage with seem to control her blood sugar better without hypoglycemia. _Type 2 diabetes not well-controlled: Will try to work with the patient to be back in the office to see somebody once a week to help her out, also continue current glucose monitor at the whole time so we can track back her up-and-down with her blood sugar to protect any problem and provide home care Be more helpful as well. If she is stable should be able to be discharged tomorrow. _Acute kidney injury: Kidney function is improved despite the fact she has probably stage II chronic kidney disease with anytime she does anything she in danger and risk of kidney becoming stage III. _UTI remain on Rocephin looks like she had a Klebsiella susceptible to a lot of antibiotics patient can be switched to Cipro safe before she leaves the hospital. _Known to have atherosclerotic heart disease and recurrent angina and significant chest pain with known coronary artery disease with multiple blockage was supposed to go for an angiogram mostly heart. Altered mental status: Combination of DKA, and infection continue to treat underlying disease watch symptoms carefully. No sign of stroke so far or mini stroke. Mentation to be watched with carefully. _Severe hypothyroidism: Again most likely from noncompliant to medication 100 mcg of levothyroxine can be given IV and switch patient to oral soon as she is able to swallow. Multiple coronary artery disease last angiogram was in June 06, 2023 with mild LAD mild circumflex completely blockage in the RCA. The patient will be on medical management only. Hypothyroidism: Continue levothyroxine 25 mcg daily. Will continue medication. Hyperlipidemia: Remain on rosuvastatin 40 mg a day with LDL has been below 70. COPD: She is on her updraft treatment does not require any oxygen she is on steroids is inhaler as well. Mild PAD has been on Pletal 100 mg twice a day. Hypertension: Continue losartan 25 mg a day and metoprolol succinate 50 mg daily. Chronic diabetic neuropathy: Has been on gabapentin 600 mg 3 times a day. Will hold off on gabapentin for the next 24 hours. Chronic depression: Has been on Effexor XR 225 mcg daily along with mirtazapine 7.5 mg at bedtime. Gastroparesis with recurrent episode of nausea and vomiting has been on Zofran, Protonix and Reglan. Discussion: Working with the social science manager for more help and resources for home and further arrangement for follow-up by cosmetology educator, endocrinology and in the office on more regular basis to help patient to stabilize her sugar and steroid from the hospital. Patient is doing well hopefully can be discharged home tomorrow. Objective - Vital Signs Vital signs: Vital Signs Temp 97.9 F 03/31/24 20:00 Pulse 82 04/01/24 04:00 Resp 16 04/01/24 04:00 BP 107/66 04/01/24 04:00 Pulse Ox 98 04/01/24 04:00 FiO2 Intake & Output 03/31/24 03/31/24 04/01/24 06:59 18:59 06:59 Intake Total 1250 946 236 Output Total 305 222 375 Balance 945 724 -139 Weight 59.6 kg 59.6 kg 57.7 kg Intake: IV 1250 350 D5-0.45% NaCl with KCl 250 20Meq/l 1,000 ml @ 50 mls /hr IV .Q20H [facility] Rx#: [id number] Dextrose 5%-0.9% NaCl 1, 700 350 000 ml @ 100 mls/hr IV . Q10H [facility] Rx#:[id number] Magnesium Sulfate-D5w Pmx 100 1 gm In Dextrose/Water 1 100ml.bag @ 100 mls/hr IVPB ONCE ONE Rx#: [id number] Potassium Chloride 10 meq 200 In Water For Injection 1 100ml.bag @ 100 mls/hr IVPB Q1H [facility] Rx#: [id number] Oral 596 236 Output: Urine 305 222 375 Other: Voiding Method Indwelling Catheter Indwelling Catheter Indwelling Catheter - Labs CBC & Chem 7: 03/31/24 04:22 04/01/24 10:29 Labs: Abnormal Lab Results - Last 24 Hours (Table) 03/31/24 03/31/24 03/31/24 Range/Units 04:22 06:53 11:13 POC Glucose (mg/dL) 266 H 192 H (70-110) mg/dL Hemoglobin A1c >18.0 H (<=6.0) % 03/31/24 03/31/24 Range/Units 20:20 20:38 POC Glucose (mg/dL) 65 L 63 L (70-110) mg/dL Hemoglobin A1c (<=6.0) % Microbiology - Last 24 Hours (Table) 03/30/24 13:20 Urine Culture - Preliminary Urine,Voided Gram Neg Bacilli
[2024-04-02 11:03] VITALS: TEMP 98.1
[2024-04-02 11:29] LABS: Glucose,Whole Blood 117 mg/dL (70-110)
[2024-04-02 11:36] LABS: Basophils % (A) 0 %; Eosinophils # (A) 0.1 k/uL (0-0.7); Eosinophils % (A) 2 %; HCT 36.3 % (34.0-46.0); HGB 11.6 gm/dL (11.4-16.0); Lymphocytes # (A) 1.5 k/uL (1.0-4.8); Lymphocytes % (A) 26 %; MCHC 31.9 g/dL (31.0-37.0); MCV 94.1 fL (80.0-100.0); Mean Platelet Volume 7.5; Monocytes # (A) 0.2 k/uL (0-1.0); Monocytes % (A) 3 %; Neutrophils # (A) 3.8 k/uL (1.3-7.7); Neutrophils % (A) 67 %; Platelet Count 168 k/uL (150-450); RBC 3.86 m/uL (3.80-5.40); RDW 15.1 % (11.5-15.5); WBC 5.7 k/uL (3.8-10.6)
[2024-04-02 11:46] LABS: African American GFR (CKD) >90 (>60 ml/min/1.73 sqM); Anion Gap 3 mmol/L; Blood Urea Nitrogen 15 mg/dL (7-17); Calcium 7.8 mg/dL (8.4-10.2); Carbon Dioxide 24 mmol/L (22-30); Chloride 107 mmol/L (98-107); Glucose 122 mg/dL (74-99); Magnesium 1.8 mg/dL (1.6-2.3); Non-African American GFR(CKD) 80 (>60 ml/min/1.73 sqM); Phosphorus 3.3 mg/dL (2.5-4.5); Potassium 4.6 mmol/L (3.5-5.1); Sodium 134 mmol/L (137-145)
--- NOTE | 2024-04-02 13:33 | P.PN ---
Subjective Progress Note Date: 04/02/24 This is a 64-year-old female patient with extensive number of medical problems and comorbidities who was supposed to have an aortogram on outpatient basis. Upon arrival to the hospital, the patient was found to be in DKA. Noted the patient is diabetic and she is insulin-dependent. She was in anion gap metabolic acidosis. Her initial anion gap was her 33 with a serum bicarb level of 6. BUN was 41 with a creatinine of 1.6. Blood sugar was 603. The patient was not admitted to the intensive care unit. The patient was managed on the medical floor and subsequently, the anion gap closed and this morning, the gap was down to 8 with a bicarb level of 23. BUN is at 48 with a creatinine of 1.4. Nevertheless, the patient became hypotensive. Systolic blood pressure dropped in the 70s. The heart rate was sinus in the mid 80s. Afebrile. No nausea. No emesis. No chest pain. No altered mentation and the patient was feeling weak and lethargic. Based on that, the patient got transferred to the intensive care unit. Currently she is on no pressors and the patient is being resuscitated with IV fluids. A total of 2 L of normal saline will be given immediately. Phosphorus level is at 0.9 and needs to be replaced. Potassium level is at 3.8. The white cell count is 5.1 with a hemoglobin 11.2 and a platelet count of 2 4. She is known to have extensive number of medical problems and comorbidities and this includes insulin-dependent diabetes mellitus, coronary artery disease, previous history of CVA, history of left renal carcinoma with partial nephrectomy, history of DVT of the left lower extremity approximately 7 to 8 years ago, chronic back pain degenerative arthritis along with peripheral neuropathy and restless leg and previous history of infection with a ESBL producing E. coli. 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 For now, the patient is in the intensive care unit regarding hypotension. On 03/31/2024, the patient is being seen in follow-up in the intensive care unit. The patient remained hemodynamically stable. She is fully recovered from her DKA. She is normotensive for now. She is on IV Rocephin regarding an underlying suspected urine tract infection. Cultures are still pending for now. She is afebrile. White cell count down to 4.3 with a hemoglobin 9.1 and a platelet count of 173. Her gap is at 8 with a serum bicarb of 19 with a BUN of 35 with a creatinine of 1.1. She had severe hypophosphatemia and this has been replaced. Phosphorus level is currently up to 4.2 with a magnesium level of 1.9. Potassium level is currently at 3.9. The patient has been transitioned to long-acting insulin and the patient is currently on Levemir insulin 15 mL twice daily and she is also receiving NovoLog 5 units with meals 3 times daily plus a sliding scale coverage. No other new complaints otherwise for now. The patient will be transferred to the medical floor. 04/01/2024, the patient is being seen for a follow-up. Patient is doing well. She is comfortable in bed. No respiratory difficulties. She is on room air oxygen. Blood sugars under good control. The serum bicarb is at 19 with a gap of 5 and a sodium level is at 133. The patient's blood sugars of 204. She remains on Tradjenta and she is also on Levemir insulin 12 units twice daily and 3 units of NovoLog with meals. She remains on IV Rocephin for underlying gram- negative urinary tract infection. Afebrile. Hemodynamically stable. No altered mentation. Calm and comfortable. Tolerating diet. 04/02/2024, patient is being seen for a follow-up. The patient is resting comfortably in bed. No specific complaints. Oral intake is quite diminished. She remains on Levemir insulin 12 units twice daily along with 3 units of NovoLog with meals. She has not had a full breakfast and she did have some coffee and juice. Her anion gap is closed. She is normotensive. Serum bicarbonate 24 with a sodium level 134. Blood sugar from today is 122. The white cell count of 5.7 with a hemoglobin 11.6. The patient remains on room air oxygen. Urine culture was positive for Klebsiella pneumonia, sensitive to c ephalosporin and the patient remains on IV Rocephin. This can be switched to ciprofloxacin at time of discharge. Objective - Vital Signs Vital signs: Vital Signs Temp 98.2 F 04/02/24 07:42 Pulse 95 04/02/24 07:42 Resp 16 04/02/24 07:42 BP 120/83 04/02/24 07:42 Pulse Ox 98 04/02/24 07:42 FiO2 Intake & Output 04/01/24 04/02/24 04/02/24 18:59 06:59 18:59 Intake Total 180 Balance 180 Weight 59.5 kg Intake: Oral 180 Other: Voiding Method Indwelling Catheter Toilet Toilet Bedside Commode Bedside Commode # Voids 1 2 # Emeses 0 - Exam General Appearance: Awake and alert on room air oxygen Neck HEENT: Supple, no lymphadenopathy, no thyroid enlargement, no carotid bruits. Lungs: Clear to auscultation without crackles or wheezes no rhonchi, no deformity. Chest Wall: Normal expansion with slight tenderness, slightly at resuscitation. And no deformity was found on exam, no costochondral pain or discomfort. Heart: Regular rate and rhythm, S1, S2 normal, no murmur, rub or gallop. Back: Symmetric, no curvature, ROM normal, no CVA tenderness. Abdomen: Soft, non-tender, bowel sounds active all four quadrants, no masses, no organomegaly. Extremities: Extremities normal, atraumatic, no cyanosis or edema. Pulses: Extremities are warm and the patient with diminished pulses in lower extremities bilaterally Skin: Skin color, texture, tugor normal, no rashes or lesions. Neurologic: Neurologically, the patient is awake and alert and the patient does not have any focal neurological deficit. Cranial nerves are essentially intact. - Labs CBC & Chem 7: 04/02/24 11:16 04/02/24 11:16 Labs: Abnormal Lab Results - Last 24 Hours (Table) 04/01/24 04/01/24 04/01/24 Range/Units 10:29 12:07 17:13 Sodium 133 L (137-145) mmol/L Chloride 109 H (98-107) mmol/L Carbon Dioxide 19 L (22-30) mmol/L Glucose 288 H (74-99) mg/dL POC Glucose (mg/dL) 238 H 204 H (70-110) mg/dL Calcium 7.4 L (8.4-10.2) mg/dL 04/02/24 Range/Units 05:46 Sodium (137-145) mmol/L Chloride (98-107) mmol/L Carbon Dioxide (22-30) mmol/L Glucose (74-99) mg/dL POC Glucose (mg/dL) 263 H (70-110) mg/dL Calcium (8.4-10.2) mg/dL Microbiology - Last 24 Hours (Table) 03/30/24 13:20 Urine Culture - Final Urine,Voided Klebsiella pneumoniae Assessment and Plan Plan: Acute hypotension, likely hypovolemic in nature in the setting of a acute DKA. Patient was treated in intensive care unit. The patient was given IV fluids and she did not require any pressors and currently she is normotensive DKA, recovered Acute kidney injury, likely secondary to testicle volume depletion, recovered Gram-negative UTI secondary to Klebsiella and the patient is currently on IV Rocephin Altered mental status, recovered and the patient has normal mentation for now Multivessel coronary artery disease Moderate CAD in Mid LAD Moderate CAD in LCx CHF with mild impairment of the LV function with an ejection fraction of 40 to 45% History of renal cell carcinoma with a partial nephrectomy on the right Remote history of DVT Hypothyroidism Hyperlipidemia Diabetic peripheral neuropathy COPD Peripheral vascular disease with stenosis of the right [employer]LE[employer]CH[employer]IC History of depression Gastroparesis Previous history of CVA x 4 Electrolyte imbalance including hypomagnesemia and hypophosphatemia, all replaced Plan Will monitor the blood pressure is stable Advance diet Levemir insulin 12 units twice daily and 3 units of NovoLog with meals and the patient is also on Tradjenta Continue D5 half-normal saline at rate of 50 cc an hour Patient is currently on room air oxygen Monitor renal function the patient has a Mccann catheter is producing adequate amount of urine output, and renal function has normalized Continue IV Rocephin and switch this patient to Cipro at the time of discharge Hemodynamically stable at this point in time.
[2024-04-02] MEDS: MAGNESIUM SULFATE-D5W PMX 1 GM in DEXTROSE/WATER 1 100ML.BAG IVPB ONE (13:50)
--- NOTE | 2024-04-02 13:51 | P.PN ---
Subjective patient is seen for follow-up for acute kidney injury. No significant complaints today. Off of IVF Objective - Vital Signs Vital signs: Vital Signs Temp 98.1 F 04/02/24 11:00 Pulse 94 04/02/24 11:00 Resp 16 04/02/24 11:00 BP 99/67 04/02/24 11:05 Pulse Ox 98 04/02/24 07:42 FiO2 Intake & Output 04/01/24 04/02/24 04/02/24 18:59 06:59 18:59 Intake Total 180 Balance 180 Weight 59.5 kg Intake: Oral 180 Other: Voiding Method Indwelling Catheter Toilet Toilet Bedside Commode Bedside Commode # Voids 1 2 1 # Emeses 0 - Exam patient is awake, comfortable, no acute distress. Examination of the heart S1 and S2 Examination of the lungs good air entry bilaterally Abdomen is soft nontender Examination of lower extremities shows no significant edema DEAN OF WOMEN exam grossly intact - Labs CBC & Chem 7: 04/02/24 11:16 04/02/24 11:16 Labs: Abnormal Lab Results - Last 24 Hours (Table) 04/01/24 04/02/24 04/02/24 Range/Units 17:13 05:46 11:16 Sodium 134 L (137-145) mmol/L Glucose 122 H (74-99) mg/dL POC Glucose (mg/dL) 204 H 263 H (70-110) mg/dL Calcium 7.8 L (8.4-10.2) mg/dL 04/02/24 Range/Units 11:27 Sodium (137-145) mmol/L Glucose (74-99) mg/dL POC Glucose (mg/dL) 117 H (70-110) mg/dL Calcium (8.4-10.2) mg/dL Microbiology - Last 24 Hours (Table) 03/30/24 13:20 Urine Culture - Final Urine,Voided Klebsiella pneumoniae Assessment and Plan Assessment: 1. Acute kidney injury associated with volume depletion, improved with IV hydration 2. Severe metabolic acidosis secondary to DKA, now resolved. Status post insulin drip 3. Volume depletion, IMPROVED POST HYDRATION 4. Hypophosphatemia associated with correction of DKA, status post replacement Plan: continue Neutra-Phos encouraged increased oral intake Management of diabetes as per primary service.
[2024-04-02 15:41] VITALS: BP 94/60; PULSE 83; RESP 15
[2024-04-02 16:22] LABS: Glucose,Whole Blood 230 mg/dL (70-110)
--- NOTE | 2024-04-06 08:55 | P.DS ---
Providers Date of admission: 03/29/24 17:01 Attending physician: Gage Sy Consults: 03/30/24 12:57 Consult Physician Routine Consulting Provider: Chris Mcghee Consult Reason/Comments: OCHOA and electrolyle abx Do you want consulting provider notified?: Yes 03/30/24 18:29 Consult Physician Routine Consulting Provider: Beulah Carey Consult Reason/Comments: ICU management Do you want consulting provider notified?: Already Contacted Primary care physician: Sahra Elder [facility] Course: Final Diagnosis Severe hyperosmolar lactic acidosis DKA Type 2 diabetes mellitus with hyperglycemia uncontrolled Acute kidney injury on chronic kidney disease stage II Urinary tract infection with sepsis present on admission History of coronary artery disease with recurrent angina and multiple blockages Altered mental status secondary to metabolic encephalopathy from the DKA improved Severe hypothyroidism noncompliant with medication Hyperlipidemia History of COPD with no acute exacerbation Mild peripheral arterial disease maintained on Pletal Hypertension Chronic diabetic neuropathy Chronic depression Gastroparesis Discharge Disposition Patient is stable for discharge home she requires close follow-up with her PCP Dr. Elder and also with her veneer cutter Dr. Wahl. Patient has been started on Lantus 25 units at at bedtime. Patient will continue on ciprofloxacin 5 mg twice a day for the next 2 days for the urinary tract infection to complete a course of therapy. Recommend to repeat blood work in 2 to 3 days. Hospital Course This is a 64-year-old female who comes into the hospital with hyperglycemia with a blood sugar of over 1000 abnormal sodium and creatinine and she came into the ER for evaluation. 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 Patient was recently hospitalized 3 weeks ago with hyperosmotic hyperglycemia nonketotic and was in the intensive care unit. She was discharged to rehab and then home. Patient was scheduled to go to cardiology for an aortogram retesting was done and she was hyperglycemic so she was sent to the hospital for evaluation. Patient came in with a blood sugar of 988 a creatinine of 1.79 GFR of 70. Patient was started on a DKA protocol with IV insulin and her blood sugar did improve down to 200. Patient sees her veneer cutter and primary care and is unsure why her blood sugar keeps elevating. Patient is my candidate for SGLT2 secondary to her urinary tract infections. Patient was in the ICU this admission she was transferred out to the medical floor. She was given Levemir 12 units twice a day as well as sliding scale and scheduled insulin. She had a positive urinary tract infection with a urine culture showing Klebsiella susceptible to Cipro and Rocephin she received IV Rocephin while in the hospital and will transition to a course of oral Cipro on discharge. Patient declined going to intermediate and like to discharge home states that she has her boyfriend living with her and helps her out. She has been seen up ambulating around the room and did get in the shower today. She has not had any chest pain or shortness of breath no nausea vomiting or diarrhea. She is alert and oriented with no focal logic deficits. Her most recent blood work reveals a sodium level of 134, BUN of 15, creatinine 0.79, blood glucose down to 96. Her hemoglobin A1c this admission was found to be greater than 18. She will be discharged home. Please see medication reconciliation for a list of current medications. Thank you for allowing us to participate in the care of this patient. The impression and plan of care has been dictated by Laura Lucas, Nurse Practitioner as directed. Dr. Chuck MD I have performed a history and physical examination and medical decision making of this patient, discussed the same with the dictator, and agree with the dictators assessment and plan as written, documented as a scribe. Based on total visit time, I have performed more than 50% of this visit. Patient Condition at Discharge: Stable Plan - Discharge Summary Discharge Rx Participant: No New Discharge Prescriptions: New Ciprofloxacin HCl [Cipro] 500 mg PO BID 3 Days #6 tab Insulin Glargine,Hum.rec.anlog [Lantus Solostar Pen] 25 units SQ HS #5 each Pen Needle, Diabetic [Pentips] 1 each MC HS #30 each Continue Venlafaxine HCl [Effexor XR] 225 mg PO DAILY Pantoprazole Sodium [Protonix] 40 mg PO BID Aspirin EC [Ecotrin Low Dose] 81 mg PO DAILY Mirtazapine 7.5 mg PO HS cilostazoL [Pletal] 100 mg PO BID Losartan [Cozaar] 50 mg PO DAILY #60 tab Metoprolol Succinate (ER) [Toprol XL] 25 mg PO DAILY #60 tab Folic Acid 1 mg PO DAILY tab Levothyroxine Sodium [Synthroid] 25 mcg PO DAILY Isosorbide Mononitrate ER [Imdur] 30 mg PO DAILY Linagliptin [Tradjenta] 5 mg PO DAILY #30 tab INSULIN LISPRO (HumaLOG) [humaLOG] See Protocol SQ AC-TID PRN PRN Reason: Blood Sugar - High Midodrine [ProAmatine] 5 mg PO AC-TID #90 tab Acetaminophen Tab [Tylenol] 650 mg PO Q6HR PRN tab PRN Reason: Mild To Moderate Pain (1 - 6) Cyanocobalamin [Vitamin B-12] 1,000 mcg PO TID Discontinued Insulin Glargine [Lantus Vial] 10 unit SQ DAILY Discharge Medication List Venlafaxine HCl [Effexor XR] 225 mg PO DAILY 10/21/16 [History] Pantoprazole Sodium [Protonix] 40 mg PO BID 04/06/20 [History] Aspirin EC [Ecotrin Low Dose] 81 mg PO DAILY 10/03/22 [History] Isosorbide Mononitrate ER [Imdur] 30 mg PO DAILY 04/10/23 [History] Mirtazapine 7.5 mg PO HS 04/10/23 [History] cilostazoL [Pletal] 100 mg PO BID 08/02/23 [History] Losartan [Cozaar] 50 mg PO DAILY #60 tab 08/05/23 [Rx] Metoprolol Succinate (ER) [Toprol XL] 25 mg PO DAILY #60 tab 08/05/23 [Rx] Linagliptin [Tradjenta] 5 mg PO DAILY #30 tab 09/05/23 [Rx] INSULIN LISPRO (HumaLOG) [humaLOG] See Protocol SQ AC-TID PRN 02/12/24 [History] Acetaminophen Tab [Tylenol] 650 mg PO Q6HR PRN tab 02/18/24 [Rx] Folic Acid 1 mg PO DAILY tab 02/18/24 [Rx] Midodrine [ProAmatine] 5 mg PO AC-TID #90 tab 02/18/24 [Rx] Cyanocobalamin [Vitamin B-12] 1,000 mcg PO TID 03/26/24 [History] Levothyroxine Sodium [Synthroid] 25 mcg PO DAILY 03/29/24 [History] Ciprofloxacin HCl [Cipro] 500 mg PO BID 3 Days #6 tab 04/02/24 [Rx] Insulin Glargine,Hum.rec.anlog [Lantus Solostar Pen] 25 units SQ HS #5 each 04/02/24 [Rx] Pen Needle, Diabetic [Pentips] 1 each MC HS #30 each 04/02/24 [Rx] Follow up Appointment(s)/Referral(s): Gricelda Still MD [STAFF PHYSICIAN] - 1 Week (Please call to schedule hospital follow up apt. ) Sahra Elder MD [Primary Care Provider] - 1-2 days (Please call to schedule hospital follow up. ) Dixon Wahl MD [REFERRING] - 1 Week (please call to schedule hospital follow up.) Beulah Carey MD [STAFF PHYSICIAN] - 1 Week (Please call to schedule hospital follow up. ) [facility] Visiting Nurse, [NON-STAFF] - 1 Week Ambulatory/Diagnostic Orders: Basic Metabolic Panel [LAB.AMB] Location: None Selected Complete Blood Count w/diff [LAB.AMB] Time Frame: 3 Days, Location: None Selected Patient Instructions/Handouts: Diabetic Ketoacidosis (DC) Discharge/Stand Alone Forms: Who Do I Call?, Outpatient Counseling Discharge Disposition: HOME SELF-CARE
== END 2024-04-02 18:28 | disposition home or self-care (01) | DRG 720 ==
LOC: EC 13:36 → 3SCARD 17:01 → 2SICU 03-30 12:29 → 3SCARD 03-31 13:21
PROVIDERS: ADMIT Internal Medicine Geriatric Medicine; ATTEND Internal Medicine Geriatric Medicine
DX: A41.59 Other Gram-negative sepsis (principal); N39.0 Urinary tract infection, site not specified; R65.20 Severe sepsis without septic shock; G93.41 Metabolic encephalopathy; N17.9 Acute kidney failure, unspecified; B96.1 Klebsiella pneumoniae [K. pneumoniae] as the cause of diseases classified elsewhere; E89.0 Postprocedural hypothyroidism; E11.10 Type 2 diabetes mellitus with ketoacidosis without coma; E11.22 Type 2 diabetes mellitus with diabetic chronic kidney disease; E11.43 Type 2 diabetes mellitus with diabetic autonomic (poly)neuropathy; E11.51 Type 2 diabetes mellitus with diabetic peripheral angiopathy without gangrene; E83.39 Other disorders of phosphorus metabolism; M06.9 Rheumatoid arthritis, unspecified; I95.9 Hypotension, unspecified; J44.9 Chronic obstructive pulmonary disease, unspecified; E87.1 Hypo-osmolality and hyponatremia; F32.A Depression, unspecified; G25.81 Restless legs syndrome; I12.9 Hypertensive chronic kidney disease with stage 1 through stage 4 chronic kidney disease, or unspecified chronic kidney disease; I25.119 Atherosclerotic heart disease of native coronary artery with unspecified angina pectoris; G89.29 Other chronic pain; M19.90 Unspecified osteoarthritis, unspecified site; M54.50 Low back pain, unspecified; K21.9 Gastro-esophageal reflux disease without esophagitis; E86.9 Volume depletion, unspecified; I25.2 Old myocardial infarction; K31.84 Gastroparesis; E78.5 Hyperlipidemia, unspecified; G47.30 Sleep apnea, unspecified; T38.1X6A Underdosing of thyroid hormones and substitutes, initial encounter; N18.2 Chronic kidney disease, stage 2 (mild); Z79.02 Long term (current) use of antithrombotics/antiplatelets; Z79.4 Long term (current) use of insulin; Z79.82 Long term (current) use of aspirin; Z79.84 Long term (current) use of oral hypoglycemic drugs; Z79.890 Hormone replacement therapy; Z79.899 Other long term (current) drug therapy; Z85.528 Personal history of other malignant neoplasm of kidney; Z86.14 Personal history of Methicillin resistant Staphylococcus aureus infection; Z86.718 Personal history of other venous thrombosis and embolism; Z86.73 Personal history of transient ischemic attack (TIA), and cerebral infarction without residual deficits; Z87.440 Personal history of urinary (tract) infections; Z87.891 Personal history of nicotine dependence; Z90.5 Acquired absence of kidney; Z91.128 Patient's intentional underdosing of medication regimen for other reason; Z95.5 Presence of coronary angioplasty implant and graft; Z88.2 Allergy status to sulfonamides; Z88.8 Allergy status to other drugs, medicaments and biological substances; Z91.040 Latex allergy status
CPT/HCPCS: 36415; 71046; 80048; 80051; 80053; 81001; 82009; 82272; 82565; 82803; 82947; 83036; 83605; 83735; 84100; 84132; 84484; 84520; 85025; 85027; 85610; 85730; 87077; 87086; 87186; 93005; 96360; 96361; 99291

== ENCOUNTER → 2024-03-29 | Day surgery (SDC) | payer OTHER ==
[2024-03-26 09:41] VITALS: BMI 22.3
[~2024-03-29] MED LIST changes: -ACETAMINOPHEN TAB 500 MG TAB PO PRN; +ALPRAZolam 0.25 MG TAB PO PRN; +ALPRAZolam 0.5 MG TAB PO PRN; -DEXAMETHASONE SOD PHOSPHATE 4 MG/ML 1 ML VIAL IV ONE; +EMPTY BAG 1 BAG with SODIUM CHLORIDE 0.9% 1,000 ML IV SCH; -GABAPENTIN 300 MG CAP PO PRN; +HEPARIN SODIUM,PORCINE (1 ML) 2,500 UNIT in SODIUM CHLORIDE 0.9% 250 ML IRRIGATION PRN; +HEPARIN SODIUM,PORCINE 10,000 UNIT in SODIUM CHLORIDE 0.9% 1,000 ML IRRIGATION PRN; -HYDROmorphone 0.5 MG/0.5 ML SYRINGE IVP PRN; -LACTATED RINGERS 1,000 ML IV SCH; -ONDANSETRON 4 MG/2 ML VIAL IVP ONE; -ONDANSETRON 4 MG/2 ML VIAL IVP PRN; -TRANEXAMIC ACID IN NACL,ISO-OS 1,000 MG in SALINE 1 100ML.BAG IVPB PRN; +ZOLPIDEM 5 MG TAB PO PRN
[2024-03-29 11:56] LABS: Glucose,Whole Blood >600 mg/dL (70-110)
[2024-03-29 11:56] LABS: Glucose,Whole Blood >600 mg/dL (70-110)
[2024-03-29 12:35] VITALS: BP 117/73; PULSE 90; RESP 16; TEMP 97.7
[2024-03-29 12:51] LABS: African American GFR (CKD) 35 (>60 ml/min/1.73 sqM); Anion Gap 39 mmol/L; Blood Urea Nitrogen 36 mg/dL (7-17); Chloride 85 mmol/L (98-107); Non-African American GFR(CKD) 31 (>60 ml/min/1.73 sqM); Potassium 5.6 mmol/L (3.5-5.1); Sodium 129 mmol/L (137-145)
[2024-03-29 12:59] LABS: Carbon Dioxide 5 mmol/L (22-30)
[2024-03-29 13:01] LABS: Glucose 1009 mg/dL (74-99)
== END ==
LOC: CATHCVL 11:14
PROVIDERS: ATTEND Internal Medicine Interventional Cardiology
DX: Z53.8 Procedure and treatment not carried out for other reasons (principal); I73.9 Peripheral vascular disease, unspecified; I10 Essential (primary) hypertension; E78.5 Hyperlipidemia, unspecified; E11.9 Type 2 diabetes mellitus without complications; I25.118 Atherosclerotic heart disease of native coronary artery with other forms of angina pectoris; I25.5 Ischemic cardiomyopathy; Z91.040 Latex allergy status; Z79.82 Long term (current) use of aspirin; Z79.899 Other long term (current) drug therapy
CPT/HCPCS: 80048

== ENCOUNTER 2024-04-09 05:08 | Inpatient (IN) | payer OTHER ==
--- NOTE | 2024-04-09 05:13 | ED ---
Altered Mental Status HPI - General Chief Complaint: Altered Mental Status Stated Complaint: Hyperglycemia Time Seen by Provider: 04/09/24 05:10 Source: patient, EMS Mode of arrival: EMS - History of Present Illness Initial Comments: Patient is a 64-year-old female with past medical history of diabetes and frequent admissions for similar complaints presenting today for altered mental status. Per EMS patient was last seen normal 2 hours prior to arrival. Found by boyfriend confused. EMS states blood glucose read as "high". EMS unable to obtain pulse ox prior to arrival. Hx limited by patient's AMS. - Related Data Home Medications Medication Instructions Recorded Confirmed Venlafaxine HCl [Effexor XR] 225 mg PO DAILY 10/21/16 04/09/24 Pantoprazole Sodium [Protonix] 40 mg PO BID 04/06/20 04/09/24 Aspirin EC [Ecotrin Low Dose] 81 mg PO DAILY 10/03/22 04/09/24 Isosorbide Mononitrate ER [Imdur] 30 mg PO DAILY 04/10/23 04/09/24 Mirtazapine 7.5 mg PO HS 04/10/23 04/09/24 cilostazoL [Pletal] 100 mg PO BID 08/02/23 04/09/24 INSULIN LISPRO (HumaLOG) [humaLOG] See Protocol SQ AC-TID PRN 02/12/24 04/09/24 Cyanocobalamin [Vitamin B-12] 1,000 mcg PO TID 03/26/24 04/09/24 Levothyroxine Sodium [Synthroid] 25 mcg PO DAILY 03/29/24 04/09/24 Ciprofloxacin HCl [Cipro] 500 mg PO DIRECTED 04/09/24 04/09/24 Previous Rx's Medication Instructions Recorded Losartan [Cozaar] 50 mg PO DAILY #60 tab 08/05/23 Metoprolol Succinate (ER) [Toprol 25 mg PO DAILY #60 tab 08/05/23 XL] Linagliptin [Tradjenta] 5 mg PO DAILY #30 tab 09/05/23 Acetaminophen Tab [Tylenol] 650 mg PO Q6HR PRN tab 02/18/24 Folic Acid 1 mg PO DAILY tab 02/18/24 Midodrine [ProAmatine] 5 mg PO AC-TID #90 tab 02/18/24 Insulin Glargine,Hum.rec.anlog 25 units SQ HS #5 each 04/02/24 [Lantus Solostar Pen] Allergies Allergy/AdvReac Type Severity Reaction Status Date / Time grass pollen Allergy Unknown Verified 04/09/24 06:36 latex Allergy Rash/Hives Verified 04/09/24 06:36 Sulfa (Sulfonamide Allergy Rash/Hives/ Verified 04/09/24 06:36 Antibiotics) Swelling venom-honey bee Allergy Anaphylaxis Verified 04/09/24 06:36 prochlorperazine edisylate AdvReac Vomiting Verified 04/09/24 06:36 [From Compazine] Review of Systems ROS Statement: Those systems with pertinent positive or pertinent negative responses have been documented in the HPI. ROS Other: All systems not noted in ROS Statement are negative. Limitations: ROS unobtainable due to patients medical condition Past Medical History Past Medical History: Coronary Artery Disease (CAD), Cancer, COPD, CVA/TIA, Diabetes Mellitus, Deep Vein Thrombosis (DVT), Eye Disorder, GERD/Reflux, Hyperlipidemia, Hypertension, Myocardial Infarction ([place]), Musculoskeletal Disorder, Neurologic Disorder, Renal Disease, Rheumatoid Arthritis (RA), Sleep Apnea/CPAP/BIPAP, Syncope, Thyroid Disorder Additional Past Medical History / Comment(s): 09/16/16 small bowel obstruction with surgery. Hx left renal cell carcinoma with partial nephrectomy. Hx CVA X4, last 5 yrs ago, no residual effects. Hx DVT left leg 7-8 yrs ago. Hypothyroidism. Chronic back pain, degenerative disc disease, restless leg syndrome, peripheral neuropathy. Hx UTI with sepsis Apr 2016 requiring PICC line insertion for IV antibiotics. Hx bilateral glaucoma. Hx syncope due to low blood sugars. No CPAP use. Migraines. DKA, HHS. Last Myocardial Infarction Date:: 2019 History of Any Multi-Drug Resistant Organisms: ESBL, MRSA, VRE Date of last positivie culture/infection: 05/07/16 ESBL, 05/15/16 VRE, MRSA 09/2017 - upper lip MDRO Source:: URINE E.COLI, EC GALLINARUM Past Surgical History: Appendectomy, Bowel Resection, Section, Heart Catheterization, Heart Catheterization With Stent, Hernia Repair Additional Past Surgical History / Comment(s): Exploratory laparotomy with lysis of adhesions, repair incarcerated incisional hernia with abdominal washout, thyroidectomy, partial left nephrectomy, colonoscopy, bilateral cataract removal with lens implants, Section X2, cardiac stent 04/06/2021. Past Anesthesia/Blood Transfusion Reactions: No Reported Reaction Date of Last Stent Placement:: 04/06/2021 Past Psychological History: Depression Smoking Status: Former smoker Past Alcohol Use History: None Reported Past Drug Use History: Cocaine, Marijuana - Past Family History Sister(s) Family Medical History: Cancer, Deep Vein Thrombosis (DVT) Additional Family Medical History / Comment(s): Patient has one sister that from liver cancer. Brother(s) Family Medical History: Cancer, Deep Vein Thrombosis (DVT) Additional Family Medical History / Comment(s): Patient has 1 brother with past ETOH, past drug abuse, DVTs. She has a second brother that has from throat cancer. Daughter(s) Family Medical History: Diabetes Mellitus, Myocardial Infarction ([place]) Additional Family Medical History / Comment(s): Daughter at 23 yrs old from massive [place]. Father Family Medical History: Myocardial Infarction ([place]) Additional Family Medical History / Comment(s): from [place] at age 44. Mother Family Medical History: Cancer Additional Family Medical History / Comment(s): Breast cancer. General Exam - General Exam Comments Initial Comments: PE: CONSTITUTIONAL: Ill-appearing, in mild distress SKIN cool, dry, no jaundice, hives or petechiae EYES: Pupils are equally round, extraocular movements intact without nystagmus, clear conjunctiva, non-icteric sclera HENT: Normocephalic, atraumatic, exquisitely dry mucus membranes, oropharynx clear without exudates NECK: , Full range of motion, normal appearance PULMONARY: Clear to auscultation without wheezes, rhonchi, or rales, normal excursion, no accessory muscle use and no stridor, mild tachypnea CARDIOVASCULAR: Regular rate, rhythm, normal S1 and S2. No appreciated murmurs, rubs or gallops. 1+ radial and dorsalis pedis pulses with intact distal perfusion. No lower extremity edema GASTROINTESTINAL: Soft, active bowel sounds throughout, non-tender, non- distended, no palpable masses, no rebound or guarding. No hepatosplenomegaly: MUSCULOSKELETAL: Extremities have no gross deformity, no edema, redness, or swelling. No calf swelling NEUROLOGIC:_a/o x 0, GCS 13, patient obeys commands, is confused and has inapp ropriate words in response to questions and opens eyes spontaneously, confused mentation and speech, no facial droop, equal strength in all 4 extremities, exam is limited by patient's altered mental status moves all extremities x 4 without motor or sensory deficit PSYCHIATRIC: Cooperative, otherwise unable to assess Course Vital Signs 04/09/24 04/09/24 04/09/24 05:10 05:55 07:00 Temperature 96.7 F L 94.8 F L 94.8 F L Pulse Rate 104 H 101 H 108 H Respiratory 24 22 22 Rate Blood Pressure 109/60 91/49 100/67 O2 Sat by Pulse 99 97 94 L Oximetry Medical Decision Making - Medical Decision Making Was pt. sent in by a medical professional or institution (, PA, SEAM RUBBER, urgent c are, hospital, or long term...) When possible be specific @ -No Did you speak to anyone other than the patient for history (EMS, parent, family, police, friend...)? What history was obtained from this source @ -No Did you review nursing and triage notes (agree or disagree)? Why? @ -I reviewed and agree with nursing and triage notes Were old charts reviewed (outside hosp., previous admission, EMS record, old EKG, old radiological studies, urgent care reports/EKG's, long term records)? Report findings @Medical records reviewed-it appears patient was recently admitted to the hospital for similar presentation, altered mental status, HHS, requiring admission to the ICU on 03/30/2024 Differential Diagnosis (chest pain, altered mental status, abdominal pain women, abdominal pain men, vaginal bleeding, weakness, fever, dyspnea, syncope, headache, dizziness, GI bleed, back pain, seizure, CVA, palpatations, mental health, musculoskeletal)? @ -Differential Altered Mental Status: Hypoglycemia, DKA, hypercapnia, ETOH, overdose, trauma, myxedema coma, HTN encephalopathy, infection, encephalitis, psychosis, intercranial hemorrhage, hepatic encephalopathy, meningitis, CVA, this is not meant to be an all- inclusive list EKG interpreted by me (3pts min.). @Sinus tachycardia, rate 102 bpm, DE interval 120 ms QRS duration 102, QT/QTc 385/444 ms, normal axis, Q waves V1, V2 artifact present throughout,, question ST elevation of 1 to 2 mm in V1 X-rays interpreted by me (1pt min.). @ -Chest x-ray shows no cardiomegaly or consolidations CT interpreted by me (1pt min.). @CT brain shows no mass or hemorrhage U/S interpreted by me (1pt. min.). @ -None done What testing was considered but not performed or refused? (CT, X-rays, U/S, labs)? Why? @ -I did consider CTA however patient had no focal neurologic deficits, had 5 out of 5 strength in all 4 extremities, no facial droop, neuro exam was limited but had much stronger suspicion for DKA given "high" glucose reading, and hx presentations for similar What meds were considered but not given or refused? Why? @ -None Did you discuss the management of the patient with other professionals (professionals i.e. , PA, SEAM RUBBER, lab, RT, psych nurse, social problems specialist, drum maker, teacher, svp chief marketing officer, case sealer)? Give summary @ -No Was smoking cessation discussed for >3mins.? @ -No Was critical care preformed (if so, how long)? @ -Yes, 45 minutes Were there social determinants of health that impacted care today? How? (Homelessness, low income, unemployed, alcoholism, drug addiction, transportation, low edu. Level, literacy, decrease access to med. care, care home, rehab)? @ -No Was there de-escalation of care discussed even if they declined (Discuss DNR or withdrawal of care, Hospice)? @ -No What co-morbidities impacted this encounter? (DM, HTN, Smoking, COPD, CAD, Cancer, CVA, ARF, Chemo, Hep., AIDS, mental health diagnosis, sleep apnea, morbid obesity)? @ -History hypertension, hyperlipidemia, CVA, CAD, COPD Was patient admitted / discharged? Hospital course, mention meds given and route, prescriptions, significant lab abnormalities, going to OR and other pertinent info. @ -Hospital course admission- Patient is a 64 y/o female, PMH diabetes, hypertension, hyperlipidemia, CVA, COPD, CAD presenting for altered mental status and hyperglycemia. History limited by patient's altered mental status. She was seen and assessed on arrival as she was reported to been unresponsive by paramedics. On my assessment patient is awake, eyes are open spontaneously, patient does follow commands has 5 out of 5 strength in all 4 extremities, has incomprehensible verbal response. Patient is mildly tachypneic, MM are exquisitely dry, eyes sunken, LCTAB, abdomen soft and nontender, normal S1/2 cardiac exam, no LE edema. Highly suspect DKA as cause of tachypnea and AMS, pulse ox 100% on room air. Of note patient is a still hypothermic on arrival. Plan for CT brain, chest x-ray, troponin, EKG, metabolic panel, CBC, VBG, lactic, urinalysis, acetone level, ammonia, TSH, alcohol level, salicylate and acetaminophen levels. 2 L IV fluid ordered. Jacy hugger applied. Warm IV fluids given. Antibiotics were considered however patient's VS are more likely attributed to DKA as opposed to acute infectious etiology so antibiotics were held and sepsis bundle was not initiated. CT brain shows no acute process. Chest x-ray shows cardiomegaly, otherwise no acute process. I reviewed patient's labs, significant for mild leukocytosis white blood cell count 17.6, hemoglobin 10.8, MCV 110, SIS consistent with a macrocytic anemia, pH 6.93, VBG pCO2 19, HCO3 4, sodium 136, potassium 6, chloride 86, carbon oxide less than 5, BUN/creatinine 27/2.08, glucose 1235, lactic 5.2, TSH 34.2 Free T4 pending, urinalysis shows 4+ glucose and 3+ ketones. Labs are consistent with severe DKA. Given patient's hypothermia I also am concerned for possible myxedema coma. 200 mcg IV levothyroxine ordered. Amp Bicarn ordered due to pH <7, Insulin bolus and drip/ DKA protocol ordered. I reassessment patient is slightly more alert, she is protecting her airway and following commands. Plan for admission for the above to ICU. Case discussed with Dr. Sunshine and Dr. Olivares, who kindly accept patient for admission to the ICU. Undiagnosed new problem with uncertain prognosis? @ -No Drug Therapy requiring intensive monitoring for toxicity (Heparin, Nitro, Insulin, Cardizem)? @ Insulin Were any procedures done? @ -No Diagnosis/symptom? @ DKA, Possible Myxedema Coma Acute, or Chronic, or Acute on Chronic? @ Acute Uncomplicated (without systemic symptoms) or Complicated (systemic symptoms)? @ Complicated Side effects of treatment? @ -No Exacerbation, Progression, or Severe Exacerbation? @ -No Poses a threat to life or bodily function? How? (Chest pain, [place], [place], pneumonia, PE, COPD, DKA, ARF, appy, cholecystitis, CVA, Diverticulitis, Homicidal, Suicidal, threat to staff... and all critical care pts) @Yes - Lab Data Result diagrams: 04/09/24 05:45 04/09/24 05:45 Lab Results 04/09/24 04/09/24 04/09/24 Range/Units 05:30 05:45 05:45 WBC 17.6 H (3.8-10.6) k/uL RBC 3.58 L (3.80-5.40) m/uL Hgb 10.8 L (11.4-16.0) gm/dL Hct 39.5 (34.0-46.0) % MCV 110.5 H D (80.0-100.0) fL MCH 30.1 (25.0-35.0) pg MCHC 27.2 L (31.0-37.0) g/dL RDW 14.9 (11.5-15.5) % Plt Count 501 H D (150-450) k/uL MPV 8.7 Neutrophils % 86 % Lymphocytes % 11 % Monocytes % 2 % Eosinophils % 0 % Basophils % 0 % Neutrophils # 15.1 H (1.3-7.7) k/uL Lymphocytes # 1.9 (1.0-4.8) k/uL Monocytes # 0.4 (0-1.0) k/uL Eosinophils # 0.0 (0-0.7) k/uL Basophils # 0.1 (0-0.2) k/uL Manual Slide Review Performed Hypochromasia Marked Macrocytosis Marked A PT 10.0 (10.0-12.5) sec INR 0.9 (<1.2) APTT 23.7 (22.0-30.0) sec VBG pH 6.93 L* (7.31-7.41) VBG pCO2 19 L (37-51) mmHg VBG HCO3 4 L* (24-28) mmol/L Sodium (137-145) mmol/L Potassium (3.5-5.1) mmol/L Chloride (98-107) mmol/L Carbon Dioxide (22-30) mmol/L Anion Gap mmol/L BUN (7-17) mg/dL Creatinine (0.52-1.04) mg/dL Est GFR (CKD-EPI)AfAm (>60 ml/min/1.73 sqM) Est GFR (CKD-EPI)NonAf (>60 ml/min/1.73 sqM) Glucose (74-99) mg/dL Lactic Ac Sepsis Rflx Plasma Lactic Acid Ab (0.7-2.0) mmol/L Calcium (8.4-10.2) mg/dL Total Bilirubin (0.2-1.3) mg/dL AST (14-36) U/L ALT (4-34) U/L Alkaline Phosphatase (38-126) U/L Ammonia (<30) umol/L Troponin I (0.000-0.034) ng/mL Total Protein (6.3-8.2) g/dL Albumin (3.5-5.0) g/dL TSH (0.465-4.680) mIU/L Urine Color Urine Appearance (Clear) Urine pH (5.0-8.0) Ur Specific Deposit (1.001-1.035) Urine Protein (Negative) Urine Glucose (UA) (Negative) Urine Ketones (Negative) Urine Blood (Negative) Urine Nitrite (Negative) Urine Bilirubin (Negative) Urine Urobilinogen (<2.0) mg/dL Ur Leukocyte Esterase (Negative) Urine Opiates Screen (NotDetected) Ur Oxycodone Screen (NotDetected) Urine Methadone Screen (NotDetected) Acetaminophen ug/mL Ur Barbiturates Screen (NotDetected) U Tricyclic Antidepress (NotDetected) Ur Phencyclidine Scrn (NotDetected) Ur Amphetamines Screen (NotDetected) U Methamphetamines Scrn (NotDetected) U Benzodiazepines Scrn (NotDetected) Urine Cocaine Screen (NotDetected) U Marijuana (THC) Screen (NotDetected) Serum Alcohol mg/dL Acetone, Qual (Negative) 04/09/24 04/09/24 04/09/24 Range/Units 05:45 05:45 05:45 WBC (3.8-10.6) k/uL RBC (3.80-5.40) m/uL Hgb (11.4-16.0) gm/dL Hct (34.0-46.0) % MCV (80.0-100.0) fL MCH (25.0-35.0) pg MCHC (31.0-37.0) g/dL RDW (11.5-15.5) % Plt Count (150-450) k/uL MPV Neutrophils % % Lymphocytes % % Monocytes % % Eosinophils % % Basophils % % Neutrophils # (1.3-7.7) k/uL Lymphocytes # (1.0-4.8) k/uL Monocytes # (0-1.0) k/uL Eosinophils # (0-0.7) k/uL Basophils # (0-0.2) k/uL Manual Slide Review Hypochromasia Macrocytosis PT (10.0-12.5) sec INR (<1.2) APTT (22.0-30.0) sec VBG pH (7.31-7.41) VBG pCO2 (37-51) mmHg VBG HCO3 (24-28) mmol/L Sodium 136 L (137-145) mmol/L Potassium 6.0 H (3.5-5.1) mmol/L Chloride 86 L (98-107) mmol/L Carbon Dioxide <5 L* (22-30) mmol/L Anion Gap mmol/L BUN 27 H (7-17) mg/dL Creatinine 2.08 H (0.52-1.04) mg/dL Est GFR (CKD-EPI)AfAm 28 (>60 ml/min/1.73 sqM) Est GFR (CKD-EPI)NonAf 25 (>60 ml/min/1.73 sqM) Glucose 1235 H* (74-99) mg/dL Lactic Ac Sepsis Rflx Plasma Lactic Acid Ab 5.2 H* (0.7-2.0) mmol/L Calcium 9.2 (8.4-10.2) mg/dL Total Bilirubin 0.4 (0.2-1.3) mg/dL AST 13 L (14-36) U/L ALT 9 (4-34) U/L Alkaline Phosphatase 138 H (38-126) U/L Ammonia <9 (<30) umol/L Troponin I 0.020 (0.000-0.034) ng/mL Total Protein 6.5 (6.3-8.2) g/dL Albumin 4.4 (3.5-5.0) g/dL TSH 34.200 H (0.465-4.680) mIU/L Urine Color Urine Appearance (Clear) Urine pH (5.0-8.0) Ur Specific Deposit (1.001-1.035) Urine Protein (Negative) Urine Glucose (UA) (Negative) Urine Ketones (Negative) Urine Blood (Negative) Urine Nitrite (Negative) Urine Bilirubin (Negative) Urine Urobilinogen (<2.0) mg/dL Ur Leukocyte Esterase (Negative) Urine Opiates Screen (NotDetected) Ur Oxycodone Screen (NotDetected) Urine Methadone Screen (NotDetected) Acetaminophen <10.0 ug/mL Ur Barbiturates Screen (NotDetected) U Tricyclic Antidepress (NotDetected) Ur Phencyclidine Scrn (NotDetected) Ur Amphetamines Screen (NotDetected) U Methamphetamines Scrn (NotDetected) U Benzodiazepines Scrn (NotDetected) Urine Cocaine Screen (NotDetected) U Marijuana (THC) Screen (NotDetected) Serum Alcohol <10 mg/dL Acetone, Qual Positive (Negative) 04/09/24 04/09/24 Range/Units 06:00 06:15 WBC (3.8-10.6) k/uL RBC (3.80-5.40) m/uL Hgb (11.4-16.0) gm/dL Hct (34.0-46.0) % MCV (80.0-100.0) fL MCH (25.0-35.0) pg MCHC (31.0-37.0) g/dL RDW (11.5-15.5) % Plt Count (150-450) k/uL MPV Neutrophils % % Lymphocytes % % Monocytes % % Eosinophils % % Basophils % % Neutrophils # (1.3-7.7) k/uL Lymphocytes # (1.0-4.8) k/uL Monocytes # (0-1.0) k/uL Eosinophils # (0-0.7) k/uL Basophils # (0-0.2) k/uL Manual Slide Review Hypochromasia Macrocytosis PT (10.0-12.5) sec INR (<1.2) APTT (22.0-30.0) sec VBG pH (7.31-7.41) VBG pCO2 (37-51) mmHg VBG HCO3 (24-28) mmol/L Sodium (137-145) mmol/L Potassium (3.5-5.1) mmol/L Chloride (98-107) mmol/L Carbon Dioxide (22-30) mmol/L Anion Gap mmol/L BUN (7-17) mg/dL Creatinine (0.52-1.04) mg/dL Est GFR (CKD-EPI)AfAm (>60 ml/min/1.73 sqM) Est GFR (CKD-EPI)NonAf (>60 ml/min/1.73 sqM) Glucose (74-99) mg/dL Lactic Ac Sepsis Rflx Y Plasma Lactic Acid Ab (0.7-2.0) mmol/L Calcium (8.4-10.2) mg/dL Total Bilirubin (0.2-1.3) mg/dL AST (14-36) U/L ALT (4-34) U/L Alkaline Phosphatase (38-126) U/L Ammonia (<30) umol/L Troponin I (0.000-0.034) ng/mL Total Protein (6.3-8.2) g/dL Albumin (3.5-5.0) g/dL TSH (0.465-4.680) mIU/L Urine Color Colorless Urine Appearance Clear (Clear) Urine pH 5.0 (5.0-8.0) Ur Specific Deposit 1.024 (1.001-1.035) Urine Protein Negative (Negative) Urine Glucose (UA) 4+ H (Negative) Urine Ketones 3+ H (Negative) Urine Blood Negative (Negative) Urine Nitrite Negative (Negative) Urine Bilirubin Negative (Negative) Urine Urobilinogen <2.0 (<2.0) mg/dL Ur Leukocyte Esterase Negative (Negative) Urine Opiates Screen Not Detected (NotDetected) Ur Oxycodone Screen Not Detected (NotDetected) Urine Methadone Screen Not Detected (NotDetected) Acetaminophen ug/mL Ur Barbiturates Screen Not Detected (NotDetected) U Tricyclic Antidepress Not Detected (NotDetected) Ur Phencyclidine Scrn Not Detected (NotDetected) Ur Amphetamines Screen Not Detected (NotDetected) U Methamphetamines Scrn Not Detected (NotDetected) U Benzodiazepines Scrn Not Detected (NotDetected) Urine Cocaine Screen Not Detected (NotDetected) U Marijuana (THC) Screen Not Detected (NotDetected) Serum Alcohol mg/dL Acetone, Qual (Negative) Disposition Clinical Impression: Acute encephalopathy, DKA (diabetic ketoacidosis), Hypothermia Disposition: ADMITTED IP TO THIS HOSP Condition: Stable
[2024-04-09] MEDS: SODIUM CHLORIDE 0.9% 1,000 ML IV ONE ×3 (05:15→10:29)
[2024-04-09 05:59] LABS: VBG PH 6.93 (7.31-7.41)
[2024-04-09 06:04] LABS: ALT 9 U/L (4-34); AST 13 U/L (14-36); Acetaminophen <10.0 ug/mL; African American GFR (CKD) 28 (>60 ml/min/1.73 sqM); Albumin 4.4 g/dL (3.5-5.0); Alcohol <10 mg/dL; Alkaline Phosphatase 138 U/L (38-126); Blood Urea Nitrogen 27 mg/dL (7-17); Calcium 9.2 mg/dL (8.4-10.2); Chloride 86 mmol/L (98-107); Non-African American GFR(CKD) 25 (>60 ml/min/1.73 sqM); Sodium 136 mmol/L (137-145); Total Bilirubin 0.4 mg/dL (0.2-1.3); Total Protein 6.5 g/dL (6.3-8.2)
[2024-04-09 06:05] LABS: INR 0.9 (<1.2); Partial Thromboplastin Time 23.7 sec (22.0-30.0)
[2024-04-09 06:13] LABS: Basophils # (A) 0.1 k/uL (0-0.2); Basophils % (A) 0 %; Eosinophils % (A) 0 %; HCT 39.5 % (34.0-46.0); HGB 10.8 gm/dL (11.4-16.0); Hypochromasia Marked; Lymphocytes # (A) 1.9 k/uL (1.0-4.8); Lymphocytes % (A) 11 %; MCH 30.1 pg (25.0-35.0); MCHC 27.2 g/dL (31.0-37.0); Macrocytosis Marked; Mean Platelet Volume 8.7; Monocytes # (A) 0.4 k/uL (0-1.0); Monocytes % (A) 2 %; Neutrophils # (A) 15.1 k/uL (1.3-7.7); Neutrophils % (A) 86 %; RBC 3.58 m/uL (3.80-5.40); RDW 14.9 % (11.5-15.5); WBC 17.6 k/uL (3.8-10.6)
[2024-04-09 06:15] LABS: Lactic Acid, Venous 5.2 mmol/L (0.7-2.0)
[2024-04-09 06:17] LABS: Carbon Dioxide <5 mmol/L (22-30)
[2024-04-09 06:17] LABS: Appearance,Urine Clear (Clear); Bilirubin,Urine Negative (Negative); Blood,Urine Negative (Negative); Color,Urine Colorless; Glucose,Urine (UA) 4+ (Negative); Leukocyte Esterase,Urine Negative (Negative); Nitrite,Urine Negative (Negative); Protein,Urine Negative (Negative); Specific Gravity,Urine 1.024 (1.001-1.035); Urobilinogen,Urine <2.0 mg/dL (<2.0)
--- NOTE | 2024-04-09 06:17 | CT ---
EXAM: CT Head Without Intravenous Contrast CLINICAL HISTORY: ITS.REASON CT Reason: Altered mental status TECHNIQUE: Axial computed tomography images of the head/brain without intravenous contrast. CTDI is 49.1 mGy and DLP is 1164 mGy-cm. This CT exam was performed using one or more of the following dose reduction techniques: automated exposure control, adjustment of the mA and/or kV according to patient size, and/or use of iterative reconstruction technique. COMPARISON: CT Head dated january 22 2023 FINDINGS: Brain: No acute intracranial abnormality. Consider MRI of there is further concern. Chronic right SURVEYOR GEODETIC territory infarction. Areas of decreased attenuation in the deep cerebral white matter are consistent with small vessel ischemic/degenerative changes. The cerebral and cerebellar sulci are prominent consistent with brain atrophy. No hemorrhage. Ventricles: Unremarkable. No ventriculomegaly. Bones/joints: Unremarkable. No acute fracture. Soft tissues: Unremarkable. Vasculature: Atherosclerotic disease. Sinuses: Unremarkable as visualized. Mastoid air cells: Unremarkable as visualized. No mastoid effusion. Orbits: Bilateral lens replacements. IMPRESSION: 1. No acute intracranial abnormality. Consider MRI of there is further concern. 2. Small vessel ischemic/degenerative changes. 3. Cerebral and cerebellar atrophy.
[2024-04-09 06:18] LABS: Glucose 1235 mg/dL (74-99)
[2024-04-09 06:20] LABS: MCV 110.5 fL (80.0-100.0); Platelet Count 501 k/uL (150-450)
--- NOTE | 2024-04-09 06:23 | XR ---
EXAM: XR Chest, 1 View CLINICAL HISTORY: ITS.REASON XR Reason: altered mental status TECHNIQUE: Frontal view of the chest. COMPARISON: No relevant prior studies available. IMPRESSION: 1. Cardiomegaly without acute cardiopulmonary abnormality. 2. Loop recorder in situ.
[2024-04-09] MEDS: SODIUM BICARB 8.4% 50 ML SYR (1 MEQ/ML) IV STA ×3 (06:24→10:28)
[2024-04-09 06:28] LABS: Amphetamine Screen,Urine Not Detected (NotDetected); Barbiturate Screen,Urine Not Detected (NotDetected); Benzodiazepines Screen,Urine Not Detected (NotDetected); Cocaine Screen,Urine Not Detected (NotDetected); Methadone Screen, Urine Not Detected (NotDetected); Opiate Screen,Urine Not Detected (NotDetected); Oxycodone Screen, Urine Not Detected (NotDetected); Phencyclidine Screen,Urine Not Detected (NotDetected); Tricyclic Antidepressant,Urine Not Detected (NotDetected); Urn Cannabinoid Scrn Not Detected (NotDetected)
[2024-04-09 06:32] LABS: Ketones,Urine 3+ (Negative)
[2024-04-09] MEDS ORDERED: Magnesium Replacement Protocol 1 EACH MISC MISCELLANE PRN (06:37)
[2024-04-09] MEDS ORDERED: Potassium Replacement Protocol 1 EACH MISC MISCELLANE PRN (06:37)
[2024-04-09] MEDS ORDERED: ACETAMINOPHEN SUPPOSITORY 650 MG SUPP RECTAL PRN (07:05)
[2024-04-09] MEDS ORDERED: NALOXONE 0.4 MG/ML 1 ML VIAL IV PRN (07:05)
[2024-04-09] MEDS: SODIUM CHLORIDE 0.9% 1,000 ML IV SCH (07:58)
[2024-04-09] MEDS: LEVOTHYROXINE IVP 100 MCG/5 ML VIAL IV STA (07:58)
[2024-04-09] MEDS: INSULIN REGULAR BOLUS (FROM DRIP BAG) IV ONE (08:04)
[2024-04-09] MEDS: INSULIN REGULAR 100 UNIT in SODIUM CHLORIDE 0.9% 100 ML IV SCH (08:06)
[2024-04-09 08:23] LABS: Glucose,Whole Blood >600 mg/dL (70-110)
[2024-04-09 08:50] LABS: African American GFR (CKD) 34 (>60 ml/min/1.73 sqM); Blood Urea Nitrogen 24 mg/dL (7-17); Chloride 89 mmol/L (98-107); Non-African American GFR(CKD) 29 (>60 ml/min/1.73 sqM); Sodium 137 mmol/L (137-145)
[2024-04-09 09:14] LABS: Glucose,Whole Blood >600 mg/dL (70-110)
[2024-04-09 09:35] LABS: Carbon Dioxide <5 mmol/L (22-30); Glucose 1078 mg/dL (74-99); Potassium 6.3 mmol/L (3.5-5.1)
[2024-04-09 09:39] LABS: Phosphorus 9.3 mg/dL (2.5-4.5)
[2024-04-09] MEDS: PANTOPRAZOLE 40 MG/10 ML VIAL IV SCH (10:29)
[2024-04-09 10:34] LABS: Glucose,Whole Blood >600 mg/dL (70-110)
[2024-04-09 11:05] LABS: Glucose,Whole Blood >600 mg/dL (70-110)
[2024-04-09 12:09] LABS: Glucose,Whole Blood >600 mg/dL (70-110)
[2024-04-09 12:39] LABS: African American GFR (CKD) 35 (>60 ml/min/1.73 sqM); Anion Gap 34 mmol/L; Blood Urea Nitrogen 31 mg/dL (7-17); Carbon Dioxide 13 mmol/L (22-30); Chloride 99 mmol/L (98-107); Non-African American GFR(CKD) 30 (>60 ml/min/1.73 sqM); Potassium 3.4 mmol/L (3.5-5.1); Sodium 146 mmol/L (137-145)
[2024-04-09 12:51] LABS: Glucose 691 mg/dL (74-99)
[2024-04-09 13:28] LABS: Glucose,Whole Blood 561 mg/dL (70-110)
--- NOTE | 2024-04-09 13:55 | P.CNPUL ---
History of Present Illness Consult date: 04/09/24 Requesting physician: Dusty Olivares Reason for consult: other (icu care) Chief complaint: Altered mental status History of present illness: This is a 64-year-old female, known history of type 1 diabetes, coronary artery disease, CVA, history of deep vein thrombosis, dyslipidemia hypertension co ronary artery disease and previous UT, chronic kidney disease, hypothyroidism, patient was sent to the hospital for altered mental status. Patient was found to be in DKA, she had significantly elevated blood sugar and a picture of acute diabetic ketoacidosis with acute anion gap metabolic acidosis, blood sugar on her initial presentation was as high as 749, patient also had repeat blood sugars were in the range of over 1200, patient was placed on the DKA protocol, and her most recent blood sugar is 691. Patient also had positive ketones, patient was seen in the ER in consultation, I recommended we continue the DKA protocol, and will arrange for the patient to be admitted to the ICU once a bed becomes available. The patient has altered mental status, could not obtain any history from the patient herself. At her previous admissions, patient had previous admissions to the ICU, with DKA, her other issues included rheumatoid arthritis hypertension dyslipidemia peripheral vessel occlusive disease, and previous admissions with DKA. Review of Systems ROS unobtainable: due to mental status Past Medical History Past Medical History: Coronary Artery Disease (CAD), Cancer, COPD, CVA/TIA, Diabetes Mellitus, Deep Vein Thrombosis (DVT), Eye Disorder, GERD/Reflux, Hyperlipidemia, Hypertension, Myocardial Infarction (UT), Musculoskeletal Disorder, Neurologic Disorder, Renal Disease, Rheumatoid Arthritis (RA), Sleep Apnea/CPAP/BIPAP, Syncope, Thyroid Disorder Additional Past Medical History / Comment(s): 09/16/16 small bowel obstruction with surgery. Hx left renal cell carcinoma with partial nephrectomy. Hx CVA X4, last 5 yrs ago, no residual effects. Hx DVT left leg 7-8 yrs ago. Hy pothyroidism. Chronic back pain, degenerative disc disease, restless leg syndrome, peripheral neuropathy. Hx UTI with sepsis Apr 2016 requiring PICC line insertion for IV antibiotics. Hx bilateral glaucoma. Hx syncope due to low blood sugars. No CPAP use. Migraines. DKA, HHS. Last Myocardial Infarction Date:: 2019 History of Any Multi-Drug Resistant Organisms: ESBL, MRSA, VRE Date of last positivie culture/infection: 05/07/16 ESBL, 05/15/16 VRE, MRSA 09/2017 - upper lip MDRO Source:: URINE E.COLI, EC GALLINARUM Past Surgical History: Appendectomy, Bowel Resection, Section, Heart Catheterization, Heart Catheterization With Stent, Hernia Repair Additional Past Surgical History / Comment(s): Exploratory laparotomy with lysis of adhesions, repair incarcerated incisional hernia with abdominal washout, thyroidectomy, partial left nephrectomy, colonoscopy, bilateral cataract removal with lens implants, Section X2, cardiac stent 04/06/2021. Past Anesthesia/Blood Transfusion Reactions: No Reported Reaction Date of Last Stent Placement:: 04/06/2021 Past Psychological History: Depression Smoking Status: Former smoker Past Alcohol Use History: None Reported Past Drug Use History: Cocaine, Marijuana - Past Family History Sister(s) Family Medical History: Cancer, Deep Vein Thrombosis (DVT) Additional Family Medical History / Comment(s): Patient has one sister that from liver cancer. Brother(s) Family Medical History: Cancer, Deep Vein Thrombosis (DVT) Additional Family Medical History / Comment(s): Patient has 1 brother with past ETOH, past drug abuse, DVTs. She has a second brother that has from throat cancer. Daughter(s) Family Medical History: Diabetes Mellitus, Myocardial Infarction (UT) Additional Family Medical History / Comment(s): Daughter at 23 yrs old from massive UT. Father Family Medical History: Myocardial Infarction (UT) Additional Family Medical History / Comment(s): from UT at age 44. Mother Family Medical History: Cancer Additional Family Medical History / Comment(s): Breast cancer. Medications and Allergies Home Medications Medication Instructions Recorded Confirmed Type Venlafaxine HCl [Effexor XR] 225 mg PO DAILY 10/21/16 04/09/24 History Pantoprazole Sodium [Protonix] 40 mg PO BID 04/06/20 04/09/24 History Aspirin EC [Ecotrin Low Dose] 81 mg PO DAILY 10/03/22 04/09/24 History Isosorbide Mononitrate ER [Imdur] 30 mg PO DAILY 04/10/23 04/09/24 History Mirtazapine 7.5 mg PO HS 04/10/23 04/09/24 History cilostazoL [Pletal] 100 mg PO BID 08/02/23 04/09/24 History Losartan [Cozaar] 50 mg PO DAILY #60 tab 08/05/23 04/09/24 Rx Metoprolol Succinate (ER) [Toprol 25 mg PO DAILY #60 tab 08/05/23 04/09/24 Rx XL] Linagliptin [Tradjenta] 5 mg PO DAILY #30 tab 09/05/23 04/09/24 Rx INSULIN LISPRO (HumaLOG) [humaLOG] See Protocol SQ AC-TID PRN 02/12/24 04/09/24 History Acetaminophen Tab [Tylenol] 650 mg PO Q6HR PRN tab 02/18/24 04/09/24 Rx Folic Acid 1 mg PO DAILY tab 02/18/24 04/09/24 Rx Midodrine [ProAmatine] 5 mg PO AC-TID #90 tab 02/18/24 04/09/24 Rx Cyanocobalamin [Vitamin B-12] 1,000 mcg PO TID 03/26/24 04/09/24 History Levothyroxine Sodium [Synthroid] 25 mcg PO DAILY 03/29/24 04/09/24 History Insulin Glargine,Hum.rec.anlog 25 units SQ HS #5 each 04/02/24 04/09/24 Rx [Lantus Solostar Pen] Ciprofloxacin HCl [Cipro] 500 mg PO DIRECTED 04/09/24 04/09/24 History Allergies Allergy/AdvReac Type Severity Reaction Status Date / Time grass pollen Allergy Unknown Verified 04/09/24 06:36 latex Allergy Rash/Hives Verified 04/09/24 06:36 Sulfa (Sulfonamide Allergy Rash/Hives/ Verified 04/09/24 06:36 Antibiotics) Swelling venom-honey bee Allergy Anaphylaxis Verified 04/09/24 06:36 prochlorperazine edisylate AdvReac Vomiting Verified 04/09/24 06:36 [From Compazine] Physical Exam Vitals: Vital Signs Temp Pulse Resp BP Pulse Ox 04/09/24 12:00 98.8 F 110 H 17 103/66 100 04/09/24 11:00 98.8 F 112 H 16 72/50 100 04/09/24 09:00 98.6 F 120 H 20 88/59 100 04/09/24 08:00 97.3 F L 115 H 20 96/60 04/09/24 07:00 94.8 F L 108 H 22 100/67 94 L 04/09/24 05:55 94.8 F L 101 H 22 91/49 97 04/09/24 05:10 96.7 F L 104 H 24 109/60 99 Intake and Output 04/08/24 04/09/24 04/09/24 22:59 06:59 14:59 Other: Weight 77.111 kg General Appearance: Revealed 64-year-old female in no distress, confused Neck HEENT: Supple, no lymphadenopathy, no thyroid enlargement, no carotid b ruits. Lungs: Clear throughout no crackles rhonchi or wheezes Chest Wall: Normal expansion, no tenderness Heart: Regular rate and rhythm, S1, S2 normal, no murmur, rub or gallop. Abdomen: Soft nontender no megaly no rebound no guarding Extremities: No clubbing edema or cyanosis Pulses: Good distal pulses bilaterally. Skin: Skin color, texture, tugor normal, no rashes or lesions. Neurologic: Patient seems to be quite confused, otherwise no gross focal neurologic deficit Psychiatric: Could not assess as the patient seems to be very confused and could not answer any questions. Results - Laboratory Findings CBC and BMP: 04/09/24 05:45 04/09/24 11:45 PT/INR, D-dimer PT 10.0 sec (10.0-12.5) 04/09/24 05:45 INR 0.9 (<1.2) 04/09/24 05:45 Abnormal lab findings: Abnormal Labs 04/09/24 04/09/24 04/09/24 05:30 05:45 05:45 WBC 17.6 H RBC 3.58 L Hgb 10.8 L MCV 110.5 H D MCHC 27.2 L Plt Count 501 H D Neutrophils # 15.1 H Macrocytosis Marked A VBG pH 6.93 L* VBG pCO2 19 L VBG HCO3 4 L* Sodium 136 L Potassium 6.0 H Chloride 86 L Carbon Dioxide <5 L* BUN 27 H Creatinine 2.08 H Glucose 1235 H* POC Glucose (mg/dL) Plasma Lactic Acid Ab Phosphorus AST 13 L Alkaline Phosphatase 138 H TSH 34.200 H Urine Glucose (UA) Urine Ketones 04/09/24 04/09/24 04/09/24 05:45 06:00 08:00 WBC RBC Hgb MCV MCHC Plt Count Neutrophils # Macrocytosis VBG pH VBG pCO2 VBG HCO3 Sodium Potassium 6.3 H* Chloride 89 L Carbon Dioxide <5 L* BUN 24 H Creatinine 1.81 H Glucose 1078 H* POC Glucose (mg/dL) Plasma Lactic Acid Ab 5.2 H* Phosphorus 9.3 H* AST Alkaline Phosphatase TSH Urine Glucose (UA) 4+ H Urine Ketones 3+ H 04/09/24 04/09/24 04/09/24 08:17 09:08 09:12 WBC RBC Hgb MCV MCHC Plt Count Neutrophils # Macrocytosis VBG pH VBG pCO2 VBG HCO3 Sodium Potassium Chloride Carbon Dioxide BUN Creatinine Glucose POC Glucose (mg/dL) >600 H* >600 H* Plasma Lactic Acid Ab 4.4 H* Phosphorus AST Alkaline Phosphatase TSH Urine Glucose (UA) Urine Ketones 04/09/24 04/09/24 04/09/24 10:27 11:02 11:45 WBC RBC Hgb MCV MCHC Plt Count Neutrophils # Macrocytosis VBG pH VBG pCO2 VBG HCO3 Sodium 146 H Potassium 3.4 L Chloride Carbon Dioxide 13 L BUN 31 H Creatinine 1.76 H Glucose 691 H* POC Glucose (mg/dL) >600 H* >600 H* Plasma Lactic Acid Ab Phosphorus AST Alkaline Phosphatase TSH Urine Glucose (UA) Urine Ketones 04/09/24 04/09/24 12:07 13:22 WBC RBC Hgb MCV MCHC Plt Count Neutrophils # Macrocytosis VBG pH VBG pCO2 VBG HCO3 Sodium Potassium Chloride Carbon Dioxide BUN Creatinine Glucose POC Glucose (mg/dL) >600 H* 561 H* Plasma Lactic Acid Ab Phosphorus AST Alkaline Phosphatase TSH Urine Glucose (UA) Urine Ketones - Diagnostic Findings Chest x-ray: image reviewed (No evidence of active disease. Patient does have cardiomegaly no evidence of pneumonia or congestive heart failure) Additional studies: CT brain showed no evidence of active disease, or intracranial abnormality. Assessment and Plan Assessment: Impression: Acute diabetic ketoacidosis Acute kidney injury, secondary to hypovolemia Altered mental status, this is likely a picture of acute metabolic encephalopathy secondary to DKA Multivessel coronary artery disease Moderate CAD in Mid LAD Moderate CAD in LCx CHF with mild impairment of the LV function with an ejection fraction of 40 to 45% History of renal cell carcinoma with a partial nephrectomy on the right Remote history of DVT Hypothyroidism Hyperlipidemia Diabetic peripheral neuropathy COPD Peripheral vascular disease with stenosis of the right [employer] History of depression Gastroparesis Recommendation: Admit to ICU Continue IV fluids Continue insulin Follow DKA protocol Close monitoring of blood sugars as per DKA protocol Resume home meds GI and DVT prophylaxis Continue close monitoring of electrolytes and renal profile Will continue to follow Time with Patient: Greater than 30
[2024-04-09 14:14] LABS: Glucose,Whole Blood 537 mg/dL (70-110)
[2024-04-09 15:16] LABS: Glucose,Whole Blood 501 mg/dL (70-110)
[2024-04-09 16:06] LABS: Glucose,Whole Blood 436 mg/dL (70-110)
--- NOTE | 2024-04-09 16:11 | P.HPIM ---
History of Present Illness H&P Date: 04/09/24 Chief Complaint: Altered mental status 64-year-old female with past medical history of hypertension, hyperlipidemia, PVD, rheumatoid arthritis, diabetes and frequent admissions for similar complaints presenting today for altered mental status. Per EMS patient was last seen normal 2 hours prior to arrival. Found by boyfriend confused. EMS states blood glucose read as "high". EMS unable to obtain pulse ox prior to arrival. Hx limited by patient's AMS. Patient was found to be in DKA, she had significantly elevated blood sugar and a picture of acute diabetic ketoacidosis with acute anion gap metabolic acidosis, blood sugar on her initial presentation was as high as 749, patient also had repeat blood sugars were in the range of over 1200, patient was placed on the DKA protocol, and her most recent blood sugar is 691. Patient also had positive ketones, patient was seen in the ER in consultation, I recommended we continue the DKA protocol, and will arrange for the patient to be admitted to the ICU once a bed becomes available. The patient has altered mental status, could not obtain any history from the patient herself. Review of Systems ROS unobtainable: due to mental status Past Medical History Past Medical History: Coronary Artery Disease (CAD), Cancer, COPD, CVA/TIA, Diab etes Mellitus, Deep Vein Thrombosis (DVT), Eye Disorder, GERD/Reflux, Hyperlipidemia, Hypertension, Myocardial Infarction (CT), Musculoskeletal Disorder, Neurologic Disorder, Renal Disease, Rheumatoid Arthritis (RA), Sleep Apnea/CPAP/BIPAP, Syncope, Thyroid Disorder Additional Past Medical History / Comment(s): 09/16/16 small bowel obstruction with surgery. Hx left renal cell carcinoma with partial nephrectomy. Hx CVA X4, last 5 yrs ago, no residual effects. Hx DVT left leg 7-8 yrs ago. Hypothyroidism. Chronic back pain, degenerative disc disease, restless leg syndrome, peripheral neuropathy. Hx UTI with sepsis Apr 2016 requiring PICC line insertion for IV antibiotics. Hx bilateral glaucoma. Hx syncope due to low blood sugars. No CPAP use. Migraines. DKA, HHS. Last Myocardial Infarction Date:: 2019 History of Any Multi-Drug Resistant Organisms: ESBL, MRSA, VRE Date of last positivie culture/infection: 05/07/16 ESBL, 05/15/16 VRE, MRSA 09/2017 - upper lip MDRO Source:: URINE E.COLI, EC GALLINARUM Past Surgical History: Appendectomy, Bowel Resection, Section, Heart Catheterization, Heart Catheterization With Stent, Hernia Repair Additional Past Surgical History / Comment(s): Exploratory laparotomy with lysis of adhesions, repair incarcerated incisional hernia with abdominal washout, thyroidectomy, partial left nephrectomy, colonoscopy, bilateral cataract removal with lens implants, Section X2, cardiac stent 04/06/2021. Past Anesthesia/Blood Transfusion Reactions: No Reported Reaction Date of Last Stent Placement:: 04/06/2021 Past Psychological History: Depression Smoking Status: Former smoker Past Alcohol Use History: None Reported Past Drug Use History: Cocaine, Marijuana - Past Family History Sister(s) Family Medical History: Cancer, Deep Vein Thrombosis (DVT) Additional Family Medical History / Comment(s): Patient has one sister that from liver cancer. Brother(s) Family Medical History: Cancer, Deep Vein Thrombosis (DVT) Additional Family Medical History / Comment(s): Patient has 1 brother with past ETOH, past drug abuse, DVTs. She has a second brother that has from throat cancer. Daughter(s) Family Medical History: Diabetes Mellitus, Myocardial Infarction (CT) Additional Family Medical History / Comment(s): Daughter at 23 yrs old from massive CT. Father Family Medical History: Myocardial Infarction (CT) Additional Family Medical History / Comment(s): from CT at age 44. Mother Family Medical History: Cancer Additional Family Medical History / Comment(s): Breast cancer. Medications and Allergies Home Medications Medication Instructions Recorded Confirmed Type Venlafaxine HCl [Effexor XR] 225 mg PO DAILY 10/21/16 04/09/24 History Pantoprazole Sodium [Protonix] 40 mg PO BID 04/06/20 04/09/24 History Aspirin EC [Ecotrin Low Dose] 81 mg PO DAILY 10/03/22 04/09/24 History Isosorbide Mononitrate ER [Imdur] 30 mg PO DAILY 04/10/23 04/09/24 History Mirtazapine 7.5 mg PO HS 04/10/23 04/09/24 History cilostazoL [Pletal] 100 mg PO BID 08/02/23 04/09/24 History Losartan [Cozaar] 50 mg PO DAILY #60 tab 08/05/23 04/09/24 Rx Metoprolol Succinate (ER) [Toprol 25 mg PO DAILY #60 tab 08/05/23 04/09/24 Rx XL] Linagliptin [Tradjenta] 5 mg PO DAILY #30 tab 09/05/23 04/09/24 Rx INSULIN LISPRO (HumaLOG) [humaLOG] See Protocol SQ AC-TID PRN 02/12/24 04/09/24 History Acetaminophen Tab [Tylenol] 650 mg PO Q6HR PRN tab 02/18/24 04/09/24 Rx Folic Acid 1 mg PO DAILY tab 02/18/24 04/09/24 Rx Midodrine [ProAmatine] 5 mg PO AC-TID #90 tab 02/18/24 04/09/24 Rx Cyanocobalamin [Vitamin B-12] 1,000 mcg PO TID 03/26/24 04/09/24 History Levothyroxine Sodium [Synthroid] 25 mcg PO DAILY 03/29/24 04/09/24 History Insulin Glargine,Hum.rec.anlog 25 units SQ HS #5 each 04/02/24 04/09/24 Rx [Lantus Solostar Pen] Ciprofloxacin HCl [Cipro] 500 mg PO DIRECTED 04/09/24 04/09/24 History Allergies Allergy/AdvReac Type Severity Reaction Status Date / Time grass pollen Allergy Unknown Verified 04/09/24 06:36 latex Allergy Rash/Hives Verified 04/09/24 06:36 Sulfa (Sulfonamide Allergy Rash/Hives/ Verified 04/09/24 06:36 Antibiotics) Swelling venom-honey bee Allergy Anaphylaxis Verified 04/09/24 06:36 prochlorperazine edisylate AdvReac Vomiting Verified 04/09/24 06:36 [From Compazine] Physical Exam Vitals: Vital Signs Temp Pulse Resp BP Pulse Ox 04/09/24 09:00 98.6 F 120 H 20 88/59 100 04/09/24 08:00 97.3 F L 115 H 20 96/60 04/09/24 07:00 94.8 F L 108 H 22 100/67 94 L 04/09/24 05:55 94.8 F L 101 H 22 91/49 97 04/09/24 05:10 96.7 F L 104 H 24 109/60 99 Intake and Output 04/08/24 04/09/24 04/09/24 22:59 06:59 14:59 Other: Weight 77.111 kg CONSTITUTIONAL: Ill-appearing, in mild distress SKIN cool, dry, no jaundice, hives or petechiae EYES: Pupils are equally round, extraocular movements intact without nystagmus, clear conjunctiva, non-icteric sclera HENT: Normocephalic, atraumatic, exquisitely dry mucus membranes, oropharynx clear without exudates NECK: , Full range of motion, normal appearance PULMONARY: Clear to auscultation without wheezes, rhonchi, or rales, normal excursion, no accessory muscle use and no stridor, mild tachypnea CARDIOVASCULAR: Regular rate, rhythm, normal S1 and S2. No appreciated murmurs, rubs or gallops. 1+ radial and dorsalis pedis pulses with intact distal perfusion. No lower extremity edema GASTROINTESTINAL: Soft, active bowel sounds throughout, non-tender, non-d istended, no palpable masses, no rebound or guarding. No hepatosplenomegaly: MUSCULOSKELETAL: Extremities have no gross deformity, no edema, redness, or swelling. No calf swelling NEUROLOGIC:_a/o x 0, GCS 13, patient obeys commands, is confused and has inappropriate words in response to questions and opens eyes spontaneously, confused mentation and speech, no facial droop, equal strength in all 4 extremities, exam is limited by patient's altered mental status moves all extremities x 4 without motor or sensory deficit PSYCHIATRIC: Cooperative, otherwise unable to assess Results CBC & Chem 7: 04/09/24 05:45 04/09/24 11:45 Labs: Abnormal Lab Results - Last 24 Hours (Table) 04/09/24 04/09/24 04/09/24 Range/Units 05:30 05:45 05:45 WBC 17.6 H (3.8-10.6) k/uL RBC 3.58 L (3.80-5.40) m/uL Hgb 10.8 L (11.4-16.0) gm/dL MCV 110.5 H D (80.0-100.0) fL MCHC 27.2 L (31.0-37.0) g/dL Plt Count 501 H D (150-450) k/uL Neutrophils # 15.1 H (1.3-7.7) k/uL Macrocytosis Marked A VBG pH 6.93 L* (7.31-7.41) VBG pCO2 19 L (37-51) mmHg VBG HCO3 4 L* (24-28) mmol/L Sodium 136 L (137-145) mmol/L Potassium 6.0 H (3.5-5.1) mmol/L Chloride 86 L (98-107) mmol/L Carbon Dioxide <5 L* (22-30) mmol/L BUN 27 H (7-17) mg/dL Creatinine 2.08 H (0.52-1.04) mg/dL Glucose 1235 H* (74-99) mg/dL POC Glucose (mg/dL) (70-110) mg/dL Plasma Lactic Acid Ab (0.7-2.0) mmol/L Phosphorus (2.5-4.5) mg/dL AST 13 L (14-36) U/L Alkaline Phosphatase 138 H (38-126) U/L TSH 34.200 H (0.465-4.680) mIU/L Urine Glucose (UA) (Negative) Urine Ketones (Negative) 04/09/24 04/09/24 04/09/24 Range/Units 05:45 06:00 08:00 WBC (3.8-10.6) k/uL RBC (3.80-5.40) m/uL Hgb (11.4-16.0) gm/dL MCV (80.0-100.0) fL MCHC (31.0-37.0) g/dL Plt Count (150-450) k/uL Neutrophils # (1.3-7.7) k/uL Macrocytosis VBG pH (7.31-7.41) VBG pCO2 (37-51) mmHg VBG HCO3 (24-28) mmol/L Sodium (137-145) mmol/L Potassium 6.3 H* (3.5-5.1) mmol/L Chloride 89 L (98-107) mmol/L Carbon Dioxide <5 L* (22-30) mmol/L BUN 24 H (7-17) mg/dL Creatinine 1.81 H (0.52-1.04) mg/dL Glucose 1078 H* (74-99) mg/dL POC Glucose (mg/dL) (70-110) mg/dL Plasma Lactic Acid Ab 5.2 H* (0.7-2.0) mmol/L Phosphorus 9.3 H* (2.5-4.5) mg/dL AST (14-36) U/L Alkaline Phosphatase (38-126) U/L TSH (0.465-4.680) mIU/L Urine Glucose (UA) 4+ H (Negative) Urine Ketones 3+ H (Negative) 04/09/24 04/09/24 04/09/24 Range/Units 08:17 09:08 09:12 WBC (3.8-10.6) k/uL RBC (3.80-5.40) m/uL Hgb (11.4-16.0) gm/dL MCV (80.0-100.0) fL MCHC (31.0-37.0) g/dL Plt Count (150-450) k/uL Neutrophils # (1.3-7.7) k/uL Macrocytosis VBG pH (7.31-7.41) VBG pCO2 (37-51) mmHg VBG HCO3 (24-28) mmol/L Sodium (137-145) mmol/L Potassium (3.5-5.1) mmol/L Chloride (98-107) mmol/L Carbon Dioxide (22-30) mmol/L BUN (7-17) mg/dL Creatinine (0.52-1.04) mg/dL Glucose (74-99) mg/dL POC Glucose (mg/dL) >600 H* >600 H* (70-110) mg/dL Plasma Lactic Acid Ab 4.4 H* (0.7-2.0) mmol/L Phosphorus (2.5-4.5) mg/dL AST (14-36) U/L Alkaline Phosphatase (38-126) U/L TSH (0.465-4.680) mIU/L Urine Glucose (UA) (Negative) Urine Ketones (Negative) 04/09/24 Range/Units 10:27 WBC (3.8-10.6) k/uL RBC (3.80-5.40) m/uL Hgb (11.4-16.0) gm/dL MCV (80.0-100.0) fL MCHC (31.0-37.0) g/dL Plt Count (150-450) k/uL Neutrophils # (1.3-7.7) k/uL Macrocytosis VBG pH (7.31-7.41) VBG pCO2 (37-51) mmHg VBG HCO3 (24-28) mmol/L Sodium (137-145) mmol/L Potassium (3.5-5.1) mmol/L Chloride (98-107) mmol/L Carbon Dioxide (22-30) mmol/L BUN (7-17) mg/dL Creatinine (0.52-1.04) mg/dL Glucose (74-99) mg/dL POC Glucose (mg/dL) >600 H* (70-110) mg/dL Plasma Lactic Acid Ab (0.7-2.0) mmol/L Phosphorus (2.5-4.5) mg/dL AST (14-36) U/L Alkaline Phosphatase (38-126) U/L TSH (0.465-4.680) mIU/L Urine Glucose (UA) (Negative) Urine Ketones (Negative) Assessment and Plan Assessment: 1. Acute diabetic ketoacidosis -Patient has been placed on IV fluids along with IV insulin infusion; IV bicarbonate infusion -Continue with IV insulin per protocol; monitor chemical profile with phosphorus every 4 hours and make recommendations accordingly 2. Acute kidney injury, secondary to hypovolemia; remains on IV fluids in form of normal saline; we will monitor strict RUTH's, daily weights, renal function electrolytes; nephrotoxins and hypotension 3. Altered mental status, this is likely a picture of acute metabolic encephalopathy secondary to DKA 4. Multivessel coronary artery disease Moderate CAD in Mid LAD Moderate CAD in LCx 5. CHF with mild impairment of the LV function with an ejection fraction of 40 to 45% 6. Hypothyroidism; patient received IV levothyroxine 200 mcg in ED 7. Hyperlipidemia; currently not on any lipid-lowering therapy 8. Diabetes mellitus/diabetic peripheral neuropathy and gastroparesis; patient is currently on IV insulin infusion per protocol 9. COPD; not in exacerbation; with home inhaler therapy 10. Peripheral vascular disease with stenosis of the right [employer]; patient takes aspirin, Pletal 11. Hypertension; currently hypotensive related to DKA and hypovolemia; hold antihypertensive medications at this time DVT prophylaxis; SCDs/subcu heparin CODE STATUS; full code
[2024-04-09 17:15] LABS: Glucose,Whole Blood 391 mg/dL (70-110)
[2024-04-09 17:38] LABS: T4, Free (Free Thyroxine) 0.77 ng/dL (0.80-1.80)
[2024-04-09 18:07] LABS: Glucose,Whole Blood 359 mg/dL (70-110)
[2024-04-09 18:53] LABS: Glucose,Whole Blood 316 mg/dL (70-110)
[2024-04-09 19:46] LABS: Basophils % (A) 0 %; Eosinophils % (A) 0 %; HCT 32.1 % (34.0-46.0); HGB 10.1 gm/dL (11.4-16.0); Lymphocytes # (A) 0.9 k/uL (1.0-4.8); Lymphocytes % (A) 6 %; MCH 29.1 pg (25.0-35.0); MCHC 31.6 g/dL (31.0-37.0); Mean Platelet Volume 6.9; Monocytes # (A) 0.6 k/uL (0-1.0); Monocytes % (A) 4 %; Neutrophils # (A) 14.1 k/uL (1.3-7.7); Neutrophils % (A) 90 %; Platelet Count 405 k/uL (150-450); RBC 3.48 m/uL (3.80-5.40); RDW 15.3 % (11.5-15.5); WBC 15.7 k/uL (3.8-10.6)
[2024-04-09 19:59] LABS: ALT 10 U/L (4-34); AST 27 U/L (14-36); African American GFR (CKD) 49 (>60 ml/min/1.73 sqM); Albumin 3.9 g/dL (3.5-5.0); Alkaline Phosphatase 119 U/L (38-126); Anion Gap 16 mmol/L; Blood Urea Nitrogen 30 mg/dL (7-17); Calcium 8.5 mg/dL (8.4-10.2); Carbon Dioxide 25 mmol/L (22-30); Chloride 111 mmol/L (98-107); Glucose 300 mg/dL (74-99); Non-African American GFR(CKD) 42 (>60 ml/min/1.73 sqM); Phosphorus 2.5 mg/dL (2.5-4.5); Potassium 3.3 mmol/L (3.5-5.1); Sodium 152 mmol/L (137-145); Total Bilirubin 0.5 mg/dL (0.2-1.3); Total Protein 6.4 g/dL (6.3-8.2)
[2024-04-09 20:00] LABS: Glucose,Whole Blood 236 mg/dL (70-110)
[2024-04-09 20:03] LABS: MCV 92.2 fL (80.0-100.0)
[2024-04-09] MEDS: D5-0.45% NACL WITH KCL 20MEQ/L 1,000 ML IV SCH (20:09)
[2024-04-09 21:04] LABS: Glucose,Whole Blood 166 mg/dL (70-110)
[2024-04-09 22:05] LABS: Glucose,Whole Blood 131 mg/dL (70-110)
[2024-04-09 23:12] LABS: Glucose,Whole Blood 106 mg/dL (70-110)
[2024-04-10 00:16] LABS: Glucose,Whole Blood 81 mg/dL (70-110)
[2024-04-10 00:25] LABS: Basophils % (A) 0 %; Eosinophils # (A) 0.1 k/uL (0-0.7); Eosinophils % (A) 1 %; Lymphocytes # (A) 1.1 k/uL (1.0-4.8); Lymphocytes % (A) 7 %; MCH 30.6 pg (25.0-35.0); MCHC 34.6 g/dL (31.0-37.0); Mean Platelet Volume 7.5; Monocytes # (A) 0.4 k/uL (0-1.0); Monocytes % (A) 3 %; Neutrophils # (A) 15.3 k/uL (1.3-7.7); Neutrophils % (A) 90 %; RBC 3.06 m/uL (3.80-5.40); RDW 15.8 % (11.5-15.5); WBC 17.1 k/uL (3.8-10.6)
[2024-04-10 00:29] LABS: HGB 9.4 gm/dL (11.4-16.0)
[2024-04-10 00:30] LABS: MCV 88.4 fL (80.0-100.0); Platelet Count 361 k/uL (150-450)
[2024-04-10] MEDS: DEXMEDETOMIDINE/0.9% NACL(PMX) 400 MCG in EMPTY BAG 1 BAG IV SCH (00:38)
[2024-04-10 01:29] LABS: Appearance,Urine Turbid (Clear); Bacteria,Urine Rare /hpf; Bilirubin,Urine 2+ (Negative); Blood,Urine Moderate (Negative); Color,Urine Yellow; Glucose,Urine (UA) 2+ (Negative); Ketones,Urine 1+ (Negative); Leukocyte Esterase,Urine Small (Negative); Mucus,Urine Rare /hpf; Nitrite,Urine Negative (Negative); Protein,Urine 2+ (Negative); RBC,Urine 4 /hpf (0-5); Specific Gravity,Urine 1.022 (1.001-1.035); Uric Acid Crystals,Urine Many /hpf; WBC,Urine 74 /hpf (0-5)
[2024-04-10 01:40] LABS: Glucose,Whole Blood 86 mg/dL (70-110)
[2024-04-10 02:25] LABS: ALT 10 U/L (4-34); AST 29 U/L (14-36); African American GFR (CKD) 64 (>60 ml/min/1.73 sqM); Albumin 3.3 g/dL (3.5-5.0); Alkaline Phosphatase 108 U/L (38-126); Anion Gap 7 mmol/L; Blood Urea Nitrogen 30 mg/dL (7-17); Calcium 8.4 mg/dL (8.4-10.2); Carbon Dioxide 30 mmol/L (22-30); Chloride 116 mmol/L (98-107); Glucose 90 mg/dL (74-99); Non-African American GFR(CKD) 55 (>60 ml/min/1.73 sqM); Potassium 3.3 mmol/L (3.5-5.1); Sodium 153 mmol/L (137-145); Total Bilirubin 0.5 mg/dL (0.2-1.3); Total Protein 5.9 g/dL (6.3-8.2)
[2024-04-10 02:27] LABS: Glucose,Whole Blood 109 mg/dL (70-110)
[2024-04-10 03:33] LABS: Glucose,Whole Blood 121 mg/dL (70-110)
[2024-04-10 05:47] LABS: HCT 25.6 % (34.0-46.0); HGB 8.7 gm/dL (11.4-16.0); MCH 30.4 pg (25.0-35.0); MCHC 34.1 g/dL (31.0-37.0); MCV 89.2 fL (80.0-100.0); Mean Platelet Volume 8.3; Platelet Count 298 k/uL (150-450); RBC 2.87 m/uL (3.80-5.40); RDW 15.9 % (11.5-15.5); WBC 15.9 k/uL (3.8-10.6)
[2024-04-10 06:01] LABS: ALT 9 U/L (4-34); AST 31 U/L (14-36); African American GFR (CKD) 79 (>60 ml/min/1.73 sqM); Albumin 3.1 g/dL (3.5-5.0); Alkaline Phosphatase 102 U/L (38-126); Anion Gap 4 mmol/L; Blood Urea Nitrogen 27 mg/dL (7-17); Carbon Dioxide 31 mmol/L (22-30); Chloride 115 mmol/L (98-107); Glucose 106 mg/dL (74-99); Non-African American GFR(CKD) 69 (>60 ml/min/1.73 sqM); Phosphorus 1.6 mg/dL (2.5-4.5); Potassium 2.9 mmol/L (3.5-5.1); Sodium 150 mmol/L (137-145); Total Bilirubin 0.4 mg/dL (0.2-1.3); Total Protein 5.6 g/dL (6.3-8.2)
[2024-04-10 06:55] LABS: Glucose,Whole Blood 128 mg/dL (70-110)
[2024-04-10] MEDS: POTASSIUM CHLORIDE 10 MEQ in WATER FOR INJECTION 1 100ML.BAG IVPB SCH (07:06)
[2024-04-10] MEDS: INSULIN ASPART (NovoLOG) 100 UNIT/ML VIAL SQ SCH ×2 (07:08→12:06)
[2024-04-10] MEDS: INSULIN DETEMIR (LEVEMIR) 100 UNIT/ML SYR SQ SCH (08:28)
[2024-04-10] MEDS: D5-0.45% NACL WITH KCL 20MEQ/L 1,000 ML IV SCH (08:29)
[2024-04-10] MEDS: POTASSIUM CHLORIDE ER 20 MEQ TAB.ER PO STA (08:42)
[2024-04-10] MEDS ORDERED: Phosphorus Replacement Protoco 1 EACH MISC MISCELLANE PRN (08:55)
[2024-04-10] MEDS ORDERED: POTAS-SOD-PHOS 280-160-250 MG 1 EACH PACKET PO ONE (09:45)
[2024-04-10 11:58] LABS: Glucose,Whole Blood 184 mg/dL (70-110)
[2024-04-10] MEDS: DEXTROSE 5% IN WATER 1,000 ML IV ONE (11:58)
[2024-04-10] MEDS: POTASSIUM PHOSPHATE 10 MMOL in SODIUM CHLORIDE 0.9% 250 ML IV SCH (11:59)
--- NOTE | 2024-04-10 12:03 | P.PN ---
Subjective Progress Note Date: 04/10/24 Principal diagnosis: Acute diabetic ketoacidosis This is a 64-year-old female, known history of type 1 diabetes, coronary artery disease, CVA, history of deep vein thrombosis, dyslipidemia hypertension coronary artery disease and previous [place], chronic kidney disease, hypothyroidism, patient was sent to the hospital for altered mental status. Patient was found to be in DKA, she had significantly elevated blood sugar and a picture of acute diabetic ketoacidosis with acute anion gap metabolic acidosis, blood sugar on her initial presentation was as high as 749, patient also had repeat blood sugars were in the range of over 1200, patient was placed on the DKA protocol, and her most recent blood sugar is 691. Patient also had positive ketones, patient was seen in the ER in consultation, I recommended we continue the DKA protocol, and will arrange for the patient to be admitted to the ICU once a bed becomes available. The patient has altered mental status, could not obtain any history from the patient herself. At her previous admissions, patient had previous admissions to the ICU, with DKA, her other issues included rheumatoid arthritis hypertension dyslipidemia peripheral vessel occlusive disease, and previous admissions with DKA. Seen today on 04/10/2024, remains in the ICU, patient is doing great, her mentation is significantly improved, her anion gap has closed, patient does have hypernatremia, hence her IV fluid will be changed to D5W at 100 cc an hour. She is presently getting D5 4 5 at 50 cc/h. Patient is on room air, does not seem to be in any distress. Her mentation has significantly improved over the last 24 hours. WBC is 15.9 hemoglobin 8.7 sodium is 150 potassium 2.9 chloride is 115 BUN is 27 creatinine 0.89 patient is now on Levemir insulin and sliding scale coverage/NovoLog insulin Objective - Vital Signs Vital signs: Vital Signs Temp 36.9 F L 04/10/24 08:00 Pulse 87 04/10/24 08:30 Resp 7 L 04/10/24 08:30 BP 112/59 04/10/24 08:30 Pulse Ox 96 04/10/24 08:30 FiO2 Intake & Output 04/09/24 04/10/24 04/10/24 18:59 06:59 18:59 Intake Total 1516.755 479.145 Output Total 875 295 40 Balance -875 1221.755 439.145 Intake: IV 1400 450 D5-0.45% NaCl with KCl 1350 20Meq/l 1,000 ml @ 150 mls/hr IV .Q6H40M [facility] Rx# :[id number] D5-0.45% NaCl with KCl 50 150 20Meq/l 1,000 ml @ 50 mls /hr IV .Q20H [facility] Rx#: [id number] Potassium Chloride 10 meq 300 In Water For Injection 1 100ml.bag @ 100 mls/hr IVPB Q1H [facility] Rx#: [id number] Intake, IV Titration 116.755 29.145 Amount Dexmedetomidine/0.9% NaCl 29.145 (Pmx) 400 mcg In Empty Bag 1 bag @ 0.2 MCG/KG/HR 3.856 mls/hr IV .Q24H [facility] Rx#:[id number] Insulin Regular 100 unit 116.755 In Sodium Chloride 0.9% 100 ml @ 0.1 UNITS/KG/HR 7.788 mls/hr IV .[id number] [facility] Rx#:[id number] Output: Urine 875 295 40 Uretheral (Mccann) 875 Other: Voiding Method Indwelling Catheter Indwelling Catheter Indwelling Catheter - Exam General Appearance: Revealed 64-year-old female in no distress, awake, oriented x 3 not in distress. Neck HEENT: Supple, no lymphadenopathy, no thyroid enlargement, no carotid bruit s. Lungs: Clear throughout no crackles rhonchi or wheezes Chest Wall: Normal expansion, no tenderness Heart: Regular rate and rhythm, S1, S2 normal, no murmur, rub or gallop. Abdomen: Soft nontender no megaly no rebound no guarding Extremities: No clubbing edema or cyanosis Pulses: Good distal pulses bilaterally. Skin: Skin color, texture, tugor normal, no rashes or lesions. Neurologic: Awake alert oriented x 3 no gross focal deficit Psychiatric: Normal mood, affect and no mental status examination - Labs CBC & Chem 7: 04/10/24 04:45 04/10/24 04:38 Labs: Abnormal Lab Results - Last 24 Hours (Table) 04/09/24 04/09/24 04/09/24 Range/Units 00:06 00:06 05:45 WBC 17.1 H 17.6 H (3.8-10.6) k/uL RBC 3.06 L 3.58 L (3.80-5.40) m/uL Hgb 9.4 L D 10.8 L (11.4-16.0) gm/dL Hct 27.0 L (34.0-46.0) % MCV 110.5 H D (80.0-100.0) fL MCHC 27.2 L (31.0-37.0) g/dL RDW 15.8 H (11.5-15.5) % Plt Count 501 H (150-450) k/uL Neutrophils # 15.3 H 15.1 H (1.3-7.7) k/uL Lymphocytes # (1.0-4.8) k/uL Macrocytosis Marked A Sodium (137-145) mmol/L Potassium (3.5-5.1) mmol/L Chloride (98-107) mmol/L Carbon Dioxide (22-30) mmol/L BUN (7-17) mg/dL Creatinine (0.52-1.04) mg/dL Glucose (74-99) mg/dL POC Glucose (mg/dL) (70-110) mg/dL Plasma Lactic Acid Ab (0.7-2.0) mmol/L Calcium (8.4-10.2) mg/dL Phosphorus 1.8 L (2.5-4.5) mg/dL Total Protein (6.3-8.2) g/dL Albumin (3.5-5.0) g/dL Free T4 (0.80-1.80) ng/dL Urine Appearance (Clear) Urine Protein (Negative) Urine Glucose (UA) (Negative) Urine Ketones (Negative) Urine Blood (Negative) Urine Bilirubin (Negative) Ur Leukocyte Esterase (Negative) Urine WBC (0-5) /hpf Uric Acid Crystals (None) /hpf Urine Bacteria (None) /hpf Urine Mucus (None) /hpf 04/09/24 04/09/24 04/09/24 Range/Units 05:45 11:45 12:07 WBC (3.8-10.6) k/uL RBC (3.80-5.40) m/uL Hgb (11.4-16.0) gm/dL Hct (34.0-46.0) % MCV (80.0-100.0) fL MCHC (31.0-37.0) g/dL RDW (11.5-15.5) % Plt Count (150-450) k/uL Neutrophils # (1.3-7.7) k/uL Lymphocytes # (1.0-4.8) k/uL Macrocytosis Sodium 146 H (137-145) mmol/L Potassium 3.4 L (3.5-5.1) mmol/L Chloride (98-107) mmol/L Carbon Dioxide 13 L (22-30) mmol/L BUN 31 H (7-17) mg/dL Creatinine 1.76 H (0.52-1.04) mg/dL Glucose 691 H* (74-99) mg/dL POC Glucose (mg/dL) >600 H* (70-110) mg/dL Plasma Lactic Acid Ab (0.7-2.0) mmol/L Calcium (8.4-10.2) mg/dL Phosphorus (2.5-4.5) mg/dL Total Protein (6.3-8.2) g/dL Albumin (3.5-5.0) g/dL Free T4 0.77 L (0.80-1.80) ng/dL Urine Appearance (Clear) Urine Protein (Negative) Urine Glucose (UA) (Negative) Urine Ketones (Negative) Urine Blood (Negative) Urine Bilirubin (Negative) Ur Leukocyte Esterase (Negative) Urine WBC (0-5) /hpf Uric Acid Crystals (None) /hpf Urine Bacteria (None) /hpf Urine Mucus (None) /hpf 04/09/24 04/09/24 04/09/24 Range/Units 13:14 13:22 14:12 WBC (3.8-10.6) k/uL RBC (3.80-5.40) m/uL Hgb (11.4-16.0) gm/dL Hct (34.0-46.0) % MCV (80.0-100.0) fL MCHC (31.0-37.0) g/dL RDW (11.5-15.5) % Plt Count (150-450) k/uL Neutrophils # (1.3-7.7) k/uL Lymphocytes # (1.0-4.8) k/uL Macrocytosis Sodium (137-145) mmol/L Potassium (3.5-5.1) mmol/L Chloride (98-107) mmol/L Carbon Dioxide (22-30) mmol/L BUN (7-17) mg/dL Creatinine (0.52-1.04) mg/dL Glucose (74-99) mg/dL POC Glucose (mg/dL) 561 H* 537 H* (70-110) mg/dL Plasma Lactic Acid Ab 3.4 H* (0.7-2.0) mmol/L Calcium (8.4-10.2) mg/dL Phosphorus (2.5-4.5) mg/dL Total Protein (6.3-8.2) g/dL Albumin (3.5-5.0) g/dL Free T4 (0.80-1.80) ng/dL Urine Appearance (Clear) Urine Protein (Negative) Urine Glucose (UA) (Negative) Urine Ketones (Negative) Urine Blood (Negative) Urine Bilirubin (Negative) Ur Leukocyte Esterase (Negative) Urine WBC (0-5) /hpf Uric Acid Crystals (None) /hpf Urine Bacteria (None) /hpf Urine Mucus (None) /hpf 04/09/24 04/09/24 04/09/24 Range/Units 15:14 16:04 17:13 WBC (3.8-10.6) k/uL RBC (3.80-5.40) m/uL Hgb (11.4-16.0) gm/dL Hct (34.0-46.0) % MCV (80.0-100.0) fL MCHC (31.0-37.0) g/dL RDW (11.5-15.5) % Plt Count (150-450) k/uL Neutrophils # (1.3-7.7) k/uL Lymphocytes # (1.0-4.8) k/uL Macrocytosis Sodium (137-145) mmol/L Potassium (3.5-5.1) mmol/L Chloride (98-107) mmol/L Carbon Dioxide (22-30) mmol/L BUN (7-17) mg/dL Creatinine (0.52-1.04) mg/dL Glucose (74-99) mg/dL POC Glucose (mg/dL) 501 H* 436 H 391 H (70-110) mg/dL Plasma Lactic Acid Ab (0.7-2.0) mmol/L Calcium (8.4-10.2) mg/dL Phosphorus (2.5-4.5) mg/dL Total Protein (6.3-8.2) g/dL Albumin (3.5-5.0) g/dL Free T4 (0.80-1.80) ng/dL Urine Appearance (Clear) Urine Protein (Negative) Urine Glucose (UA) (Negative) Urine Ketones (Negative) Urine Blood (Negative) Urine Bilirubin (Negative) Ur Leukocyte Esterase (Negative) Urine WBC (0-5) /hpf Uric Acid Crystals (None) /hpf Urine Bacteria (None) /hpf Urine Mucus (None) /hpf 04/09/24 04/09/24 04/09/24 Range/Units 18:06 18:51 19:09 WBC 15.7 H (3.8-10.6) k/uL RBC 3.48 L (3.80-5.40) m/uL Hgb 10.1 L (11.4-16.0) gm/dL Hct 32.1 L (34.0-46.0) % MCV (80.0-100.0) fL MCHC (31.0-37.0) g/dL RDW (11.5-15.5) % Plt Count (150-450) k/uL Neutrophils # 14.1 H (1.3-7.7) k/uL Lymphocytes # 0.9 L (1.0-4.8) k/uL Macrocytosis Sodium (137-145) mmol/L Potassium (3.5-5.1) mmol/L Chloride (98-107) mmol/L Carbon Dioxide (22-30) mmol/L BUN (7-17) mg/dL Creatinine (0.52-1.04) mg/dL Glucose (74-99) mg/dL POC Glucose (mg/dL) 359 H 316 H (70-110) mg/dL Plasma Lactic Acid Ab (0.7-2.0) mmol/L Calcium (8.4-10.2) mg/dL Phosphorus (2.5-4.5) mg/dL Total Protein (6.3-8.2) g/dL Albumin (3.5-5.0) g/dL Free T4 (0.80-1.80) ng/dL Urine Appearance (Clear) Urine Protein (Negative) Urine Glucose (UA) (Negative) Urine Ketones (Negative) Urine Blood (Negative) Urine Bilirubin (Negative) Ur Leukocyte Esterase (Negative) Urine WBC (0-5) /hpf Uric Acid Crystals (None) /hpf Urine Bacteria (None) /hpf Urine Mucus (None) /hpf 04/09/24 04/09/24 04/09/24 Range/Units 19:09 19:59 21:03 WBC (3.8-10.6) k/uL RBC (3.80-5.40) m/uL Hgb (11.4-16.0) gm/dL Hct (34.0-46.0) % MCV (80.0-100.0) fL MCHC (31.0-37.0) g/dL RDW (11.5-15.5) % Plt Count (150-450) k/uL Neutrophils # (1.3-7.7) k/uL Lymphocytes # (1.0-4.8) k/uL Macrocytosis Sodium 152 H (137-145) mmol/L Potassium 3.3 L (3.5-5.1) mmol/L Chloride 111 H (98-107) mmol/L Carbon Dioxide (22-30) mmol/L BUN 30 H (7-17) mg/dL Creatinine 1.33 H (0.52-1.04) mg/dL Glucose 300 H (74-99) mg/dL POC Glucose (mg/dL) 236 H 166 H (70-110) mg/dL Plasma Lactic Acid Ab (0.7-2.0) mmol/L Calcium (8.4-10.2) mg/dL Phosphorus (2.5-4.5) mg/dL Total Protein (6.3-8.2) g/dL Albumin (3.5-5.0) g/dL Free T4 (0.80-1.80) ng/dL Urine Appearance (Clear) Urine Protein (Negative) Urine Glucose (UA) (Negative) Urine Ketones (Negative) Urine Blood (Negative) Urine Bilirubin (Negative) Ur Leukocyte Esterase (Negative) Urine WBC (0-5) /hpf Uric Acid Crystals (None) /hpf Urine Bacteria (None) /hpf Urine Mucus (None) /hpf 04/09/24 04/10/24 04/10/24 Range/Units 22:03 00:06 00:46 WBC (3.8-10.6) k/uL RBC (3.80-5.40) m/uL Hgb (11.4-16.0) gm/dL Hct (34.0-46.0) % MCV (80.0-100.0) fL MCHC (31.0-37.0) g/dL RDW (11.5-15.5) % Plt Count (150-450) k/uL Neutrophils # (1.3-7.7) k/uL Lymphocytes # (1.0-4.8) k/uL Macrocytosis Sodium 153 H (137-145) mmol/L Potassium 3.3 L (3.5-5.1) mmol/L Chloride 116 H (98-107) mmol/L Carbon Dioxide (22-30) mmol/L BUN 30 H (7-17) mg/dL Creatinine 1.07 H (0.52-1.04) mg/dL Glucose (74-99) mg/dL POC Glucose (mg/dL) 131 H (70-110) mg/dL Plasma Lactic Acid Ab (0.7-2.0) mmol/L Calcium (8.4-10.2) mg/dL Phosphorus (2.5-4.5) mg/dL Total Protein 5.9 L (6.3-8.2) g/dL Albumin 3.3 L (3.5-5.0) g/dL Free T4 (0.80-1.80) ng/dL Urine Appearance Turbid H (Clear) Urine Protein 2+ H (Negative) Urine Glucose (UA) 2+ H (Negative) Urine Ketones 1+ H (Negative) Urine Blood Moderate H (Negative) Urine Bilirubin 2+ H (Negative) Ur Leukocyte Esterase Small H (Negative) Urine WBC 74 H (0-5) /hpf Uric Acid Crystals Many H (None) /hpf Urine Bacteria Rare H (None) /hpf Urine Mucus Rare H (None) /hpf 04/10/24 04/10/24 04/10/24 Range/Units 03:30 04:38 04:45 WBC 15.9 H (3.8-10.6) k/uL RBC 2.87 L (3.80-5.40) m/uL Hgb 8.7 L (11.4-16.0) gm/dL Hct 25.6 L (34.0-46.0) % MCV (80.0-100.0) fL MCHC (31.0-37.0) g/dL RDW 15.9 H (11.5-15.5) % Plt Count (150-450) k/uL Neutrophils # (1.3-7.7) k/uL Lymphocytes # (1.0-4.8) k/uL Macrocytosis Sodium 150 H (137-145) mmol/L Potassium 2.9 L (3.5-5.1) mmol/L Chloride 115 H (98-107) mmol/L Carbon Dioxide 31 H (22-30) mmol/L BUN 27 H (7-17) mg/dL Creatinine (0.52-1.04) mg/dL Glucose 106 H (74-99) mg/dL POC Glucose (mg/dL) 121 H (70-110) mg/dL Plasma Lactic Acid Ab (0.7-2.0) mmol/L Calcium 8.0 L (8.4-10.2) mg/dL Phosphorus 1.6 L (2.5-4.5) mg/dL Total Protein 5.6 L (6.3-8.2) g/dL Albumin 3.1 L (3.5-5.0) g/dL Free T4 (0.80-1.80) ng/dL Urine Appearance (Clear) Urine Protein (Negative) Urine Glucose (UA) (Negative) Urine Ketones (Negative) Urine Blood (Negative) Urine Bilirubin (Negative) Ur Leukocyte Esterase (Negative) Urine WBC (0-5) /hpf Uric Acid Crystals (None) /hpf Urine Bacteria (None) /hpf Urine Mucus (None) /hpf 04/10/24 04/10/24 Range/Units 06:54 11:57 WBC (3.8-10.6) k/uL RBC (3.80-5.40) m/uL Hgb (11.4-16.0) gm/dL Hct (34.0-46.0) % MCV (80.0-100.0) fL MCHC (31.0-37.0) g/dL RDW (11.5-15.5) % Plt Count (150-450) k/uL Neutrophils # (1.3-7.7) k/uL Lymphocytes # (1.0-4.8) k/uL Macrocytosis Sodium (137-145) mmol/L Potassium (3.5-5.1) mmol/L Chloride (98-107) mmol/L Carbon Dioxide (22-30) mmol/L BUN (7-17) mg/dL Creatinine (0.52-1.04) mg/dL Glucose (74-99) mg/dL POC Glucose (mg/dL) 128 H 184 H (70-110) mg/dL Plasma Lactic Acid Ab (0.7-2.0) mmol/L Calcium (8.4-10.2) mg/dL Phosphorus (2.5-4.5) mg/dL Total Protein (6.3-8.2) g/dL Albumin (3.5-5.0) g/dL Free T4 (0.80-1.80) ng/dL Urine Appearance (Clear) Urine Protein (Negative) Urine Glucose (UA) (Negative) Urine Ketones (Negative) Urine Blood (Negative) Urine Bilirubin (Negative) Ur Leukocyte Esterase (Negative) Urine WBC (0-5) /hpf Uric Acid Crystals (None) /hpf Urine Bacteria (None) /hpf Urine Mucus (None) /hpf Assessment and Plan Assessment: Impression: Acute diabetic ketoacidosis Acute kidney injury, secondary to hypovolemia Altered mental status, this is likely a picture of acute metabolic encephalopathy secondary to DKA Multivessel coronary artery disease Moderate CAD in Mid LAD Moderate CAD in LCx CHF with mild impairment of the LV function with an ejection fraction of 40 to 45% History of renal cell carcinoma with a partial nephrectomy on the right Remote history of DVT Hypothyroidism Hyperlipidemia Diabetic peripheral neuropathy COPD Peripheral vascular disease with stenosis of the right [employer] History of depression Gastroparesis hypernatremia secondary to free water deficit Recommendation: Continue to monitor in the ICU Continue IV fluids, changed to D5W at a higher rate and monitor sodium Continue insulin, Levemir and NovoLog insulin as per protocol/Accu-Cheks GI and DVT prophylaxis Transfer to regular medical floor in the next 24 hours Will continue to follow Time with Patient: Less than 30
[2024-04-10 12:57] VITALS: BMI 30.1
[2024-04-10 16:02] LABS: African American GFR (CKD) 81 (>60 ml/min/1.73 sqM); Anion Gap 12 mmol/L; Blood Urea Nitrogen 18 mg/dL (7-17); Calcium 7.8 mg/dL (8.4-10.2); Carbon Dioxide 24 mmol/L (22-30); Chloride 110 mmol/L (98-107); Glucose 209 mg/dL (74-99); Non-African American GFR(CKD) 70 (>60 ml/min/1.73 sqM); Phosphorus 2.6 mg/dL (2.5-4.5); Potassium 3.8 mmol/L (3.5-5.1); Sodium 146 mmol/L (137-145)
[2024-04-10 16:40] LABS: Glucose,Whole Blood 204 mg/dL (70-110)
[2024-04-10] MEDS: LOPERAMIDE 2 MG CAP PO PRN (16:52)
[2024-04-10] MEDS: ACETAMINOPHEN TAB 325 MG TAB PO PRN (18:41)
[2024-04-10 20:29] LABS: Glucose,Whole Blood 108 mg/dL (70-110)
[2024-04-10] MEDS: LIDOCAINE VISCOUS 2% 15 ML CUP MUCOUS MEM PRN (21:59)
[2024-04-10 23:37] LABS: Glucose,Whole Blood 28 mg/dL (70-110)
[2024-04-10] MEDS: DEXTROSE 50% SYRINGE 50 ML IVP PRN (23:38)
[2024-04-10 23:58] LABS: Glucose,Whole Blood 170 mg/dL (70-110)
[2024-04-11 02:02] LABS: Glucose,Whole Blood 67 mg/dL (70-110)
[2024-04-11 02:31] LABS: Glucose,Whole Blood 76 mg/dL (70-110)
[2024-04-11] MEDS: DEXTROSE 50% SYRINGE 50 ML IVP PRN (03:14)
[2024-04-11 03:15] LABS: Glucose,Whole Blood 80 mg/dL (70-110)
[2024-04-11 03:39] LABS: Glucose,Whole Blood 178 mg/dL (70-110)
[2024-04-11 06:49] LABS: Glucose,Whole Blood 99 mg/dL (70-110)
[2024-04-11] MEDS: INSULIN DETEMIR (LEVEMIR) 100 UNIT/ML SYR SQ SCH (07:05)
[2024-04-11] MEDS: DEXTROSE 5% IN WATER 1,000 ML IV ONE (07:54)
[2024-04-11] MEDS: INSULIN ASPART (NovoLOG) 100 UNIT/ML VIAL SQ SCH (08:06)
[2024-04-11 08:23] LABS: Hypochromasia Slight; MCH 30.6 pg (25.0-35.0); MCHC 32.2 g/dL (31.0-37.0); Mean Platelet Volume 7.2; Platelet Count 218 k/uL (150-450); RBC 3.27 m/uL (3.80-5.40); RDW 15.5 % (11.5-15.5); WBC 12.4 k/uL (3.8-10.6)
[2024-04-11 08:29] LABS: African American GFR (CKD) >90 (>60 ml/min/1.73 sqM); Anion Gap 9 mmol/L; Blood Urea Nitrogen 13 mg/dL (7-17); Calcium 7.3 mg/dL (8.4-10.2); Carbon Dioxide 22 mmol/L (22-30); Chloride 106 mmol/L (98-107); Glucose 205 mg/dL (74-99); Non-African American GFR(CKD) 82 (>60 ml/min/1.73 sqM); Potassium 3.9 mmol/L (3.5-5.1); Sodium 137 mmol/L (137-145)
[2024-04-11] MEDS: ONDANSETRON 4 MG/2 ML VIAL IVP PRN (09:33)
[2024-04-11 10:57] LABS: Glucose,Whole Blood 208 mg/dL (70-110)
--- NOTE | 2024-04-11 12:08 | P.PN ---
Subjective Progress Note Date: 04/11/24 Principal diagnosis: Acute diabetic ketoacidosis This is a 64-year-old female, known history of type 1 diabetes, coronary artery disease, CVA, history of deep vein thrombosis, dyslipidemia hypertension coronary artery disease and previous [place], chronic kidney disease, hypothyroidism, patient was sent to the hospital for altered mental status. Patient was found to be in DKA, she had significantly elevated blood sugar and a picture of acute diabetic ketoacidosis with acute anion gap metabolic acidosis, blood sugar on her initial presentation was as high as 749, patient also had repeat blood sugars were in the range of over 1200, patient was placed on the DKA protocol, and her most recent blood sugar is 691. Patient also had positive ketones, patient was seen in the ER in consultation, I recommended we continue the DKA protocol, and will arrange for the patient to be admitted to the ICU once a bed becomes available. The patient has altered mental status, could not obtain any history from the patient herself. At her previous admissions, patient had previous admissions to the ICU, with DKA, her other issues included rheumatoid arthritis hypertension dyslipidemia peripheral vessel occlusive disease, and previous admissions with DKA. Seen today on 04/10/2024, remains in the ICU, patient is doing great, her mentation is significantly improved, her anion gap has closed, patient does have hypernatremia, hence her IV fluid will be changed to D5W at 100 cc an hour. She is presently getting D5 4 5 at 50 cc/h. Patient is on room air, does not seem to be in any distress. Her mentation has significantly improved over the last 24 hours. WBC is 15.9 hemoglobin 8.7 sodium is 150 potassium 2.9 chloride is 115 BUN is 27 creatinine 0.89 patient is now on Levemir insulin and sliding scale coverage/NovoLog insulin Patient was seen on 04/11/2024, patient is doing very well, recovered nicely from her acute diabetic ketoacidosis, she is now on Levemir insulin and NovoLog insulin as per sliding scale. Her labs are unremarkable she had relatively normal basic metabolic profile, anion gap has completely closed bicarb is 22 WBC count is 12.4 hemoglobin is 10. Blood sugar is 208 this morning. Objective - Vital Signs Vital signs: Vital Signs Temp 37.1 F L 04/11/24 08:00 Pulse 78 04/11/24 09:00 Resp 14 04/11/24 09:00 BP 97/64 04/11/24 09:00 Pulse Ox 98 04/11/24 09:00 FiO2 Intake & Output 04/10/24 04/11/24 04/11/24 18:59 06:59 18:59 Intake Total 2429.145 1560 200 Output Total 570 510 35 Balance 0008.598 2675 165 Weight 77.111 kg 60.7 kg Intake: IV 850 1200 200 D5-0.45% NaCl with KCl 150 20Meq/l 1,000 ml @ 50 mls /hr IV .Q20H [facility] Rx#: [id number] Dextrose 5% in Water 1, 1200 200 000 ml @ 100 mls/hr IV . Q10H [facility] Rx#:[id number] Potassium Chloride 10 meq 700 In Water For Injection 1 100ml.bag @ 100 mls/hr IVPB Q1H [facility] Rx#: [id number] Intake, IV Titration 1579.145 Amount Dexmedetomidine/0.9% NaCl 29.145 (Pmx) 400 mcg In Empty Bag 1 bag @ 0.2 MCG/KG/HR 3.856 mls/hr IV .Q24H [facility] Rx#:[id number] Dextrose 5% in Water 1, 800 000 ml @ 100 mls/hr IV . Q10H [facility] Rx#:[id number] Potassium Phosphate 10 750 mmol In Sodium Chloride 0 .9% 250 ml @ 125 mls/hr IV Q2H [facility] Rx#:[id number] Oral 360 Output: Urine 570 510 35 Other: Voiding Method Indwelling Catheter Indwelling Catheter Indwelling Catheter # Bowel Movements 1 - Exam General Appearance: Revealed 64-year-old female in no distress, awake, oriented x 3 not in distress. On 2 L nasal cannula O2 sat is 98% Neck HEENT: Supple, no lymphadenopathy, no thyroid enlargement, no carotid bruit s. Lungs: Clear throughout no crackles rhonchi or wheezes Chest Wall: Normal expansion, no tenderness Heart: Regular rate and rhythm, S1, S2 normal, no murmur, rub or gallop. Abdomen: Soft nontender no megaly no rebound no guarding Extremities: No clubbing edema or cyanosis Pulses: Good distal pulses bilaterally. Skin: Skin color, texture, tugor normal, no rashes or lesions. Neurologic: Awake alert oriented x 3 no gross focal deficit Psychiatric: Normal mood, affect and no mental status examination - Labs CBC & Chem 7: 04/11/24 08:01 04/11/24 08:01 Labs: Abnormal Lab Results - Last 24 Hours (Table) 04/10/24 04/10/24 04/10/24 Range/Units 15:04 16:39 23:35 WBC (3.8-10.6) k/uL RBC (3.80-5.40) m/uL Hgb (11.4-16.0) gm/dL Hct (34.0-46.0) % Sodium 146 H (137-145) mmol/L Chloride 110 H (98-107) mmol/L BUN 18 H (7-17) mg/dL Glucose 209 H (74-99) mg/dL POC Glucose (mg/dL) 204 H 28 L* (70-110) mg/dL Calcium 7.8 L (8.4-10.2) mg/dL 04/10/24 04/11/24 04/11/24 Range/Units 23:57 02:00 03:37 WBC (3.8-10.6) k/uL RBC (3.80-5.40) m/uL Hgb (11.4-16.0) gm/dL Hct (34.0-46.0) % Sodium (137-145) mmol/L Chloride (98-107) mmol/L BUN (7-17) mg/dL Glucose (74-99) mg/dL POC Glucose (mg/dL) 170 H 67 L 178 H (70-110) mg/dL Calcium (8.4-10.2) mg/dL 04/11/24 04/11/24 04/11/24 Range/Units 08:01 08:01 10:56 WBC 12.4 H (3.8-10.6) k/uL RBC 3.27 L (3.80-5.40) m/uL Hgb 10.0 L (11.4-16.0) gm/dL Hct 31.0 L (34.0-46.0) % Sodium (137-145) mmol/L Chloride (98-107) mmol/L BUN (7-17) mg/dL Glucose 205 H (74-99) mg/dL POC Glucose (mg/dL) 208 H (70-110) mg/dL Calcium 7.3 L (8.4-10.2) mg/dL Microbiology - Last 24 Hours (Table) 04/09/24 09:08 Blood Culture - Preliminary Blood Assessment and Plan Assessment: Impression: Acute diabetic ketoacidosis Acute kidney injury, secondary to hypovolemia Altered mental status, this is likely a picture of acute metabolic encephalopathy secondary to DKA Multivessel coronary artery disease Moderate CAD in Mid LAD Moderate CAD in LCx CHF with mild impairment of the LV function with an ejection fraction of 40 to 45% History of renal cell carcinoma with a partial nephrectomy on the right Remote history of DVT Hypothyroidism Hyperlipidemia Diabetic peripheral neuropathy COPD Peripheral vascular disease with stenosis of the right [employer] History of depression Gastroparesis hypernatremia secondary to free water deficit Recommendation: Consider patient to a medical surgical floor Continue IV fluids ADA diet Continue insulin, Levemir and NovoLog insulin as per protocol/Accu-Cheks GI and DVT prophylaxis Will continue to follow Time with Patient: Less than 30
--- NOTE | 2024-04-11 14:30 | P.PN ---
Subjective Progress Note Date: 04/10/24 64-year-old female with past medical history of hypertension, hyperlipidemia, PVD, rheumatoid arthritis, diabetes and frequent admissions for similar complaints presenting today for altered mental status. Per EMS patient was last seen normal 2 hours prior to arrival. Found by boyfriend confused. EMS states blood glucose read as "high". EMS unable to obtain pulse ox prior to arrival. Hx limited by patient's AMS. Patient was found to be in DKA, she had significantly elevated blood sugar and a picture of acute diabetic ketoacidosis with acute anion gap metabolic acidosis, blood sugar on her initial presentation was as high as 749, patient also had repeat blood sugars were in the range of over 1200, patient was placed on the DKA protocol, and her most recent blood sugar is 691. Patient also had positive ketones, patient was seen in the ER in consultation, I recommended we continue the DKA protocol, and will arrange for the patient to be admitted to the ICU once a bed becomes available. The patient has altered mental status, could not obtain any history from the patient herself. Objective - Vital Signs Vital signs: Vital Signs Temp 36.9 F L 04/10/24 08:00 Pulse 87 04/10/24 08:30 Resp 7 L 04/10/24 08:30 BP 112/59 04/10/24 08:30 Pulse Ox 96 04/10/24 08:30 FiO2 Intake & Output 04/09/24 04/10/24 04/10/24 18:59 06:59 18:59 Intake Total 1516.755 479.145 Output Total 875 295 40 Balance -875 1221.755 439.145 Intake: IV 1400 450 D5-0.45% NaCl with KCl 1350 20Meq/l 1,000 ml @ 150 mls/hr IV .Q6H40M [facility] Rx# :[id number] D5-0.45% NaCl with KCl 50 150 20Meq/l 1,000 ml @ 50 mls /hr IV .Q20H [facility] Rx#: [id number] Potassium Chloride 10 meq 300 In Water For Injection 1 100ml.bag @ 100 mls/hr IVPB Q1H [facility] Rx#: [id number] Intake, IV Titration 116.755 29.145 Amount Dexmedetomidine/0.9% NaCl 29.145 (Pmx) 400 mcg In Empty Bag 1 bag @ 0.2 MCG/KG/HR 3.856 mls/hr IV .Q24H [facility] Rx#:[id number] Insulin Regular 100 unit 116.755 In Sodium Chloride 0.9% 100 ml @ 0.1 UNITS/KG/HR 7.788 mls/hr IV .[id number] [facility] Rx#:[id number] Output: Urine 875 295 40 Uretheral (Mccann) 875 Other: Voiding Method Indwelling Catheter Indwelling Catheter Indwelling Catheter - Exam CONSTITUTIONAL: Ill-appearing, in mild distress SKIN cool, dry, no jaundice, hives or petechiae EYES: Pupils are equally round, extraocular movements intact without nystagmus, clear conjunctiva, non-icteric sclera HENT: Normocephalic, atraumatic, exquisitely dry mucus membranes, oropharynx clear without exudates NECK: , Full range of motion, normal appearance PULMONARY: Clear to auscultation without wheezes, rhonchi, or rales, normal excursion, no accessory muscle use and no stridor, mild tachypnea CARDIOVASCULAR: Regular rate, rhythm, normal S1 and S2. No appreciated murmurs, rubs or gallops. 1+ radial and dorsalis pedis pulses with intact distal perfusion. No lower extremity edema GASTROINTESTINAL: Soft, active bowel sounds throughout, non-tender, non- distended, no palpable masses, no rebound or guarding. No hepatosplenomegaly: MUSCULOSKELETAL: Extremities have no gross deformity, no edema, redness, or swelling. No calf swelling NEUROLOGIC:_a/o x 0, GCS 13, patient obeys commands, is confused and has inappropriate words in response to questions and opens eyes spontaneously, confused mentation and speech, no facial droop, equal strength in all 4 extremit ies, exam is limited by patient's altered mental status moves all extremities x 4 without motor or sensory deficit - Labs CBC & Chem 7: 04/11/24 08:01 04/11/24 08:01 Labs: Abnormal Lab Results - Last 24 Hours (Table) 04/09/24 04/09/24 04/09/24 Range/Units 00:06 00:06 05:45 WBC 17.1 H 17.6 H (3.8-10.6) k/uL RBC 3.06 L 3.58 L (3.80-5.40) m/uL Hgb 9.4 L D 10.8 L (11.4-16.0) gm/dL Hct 27.0 L (34.0-46.0) % MCV 110.5 H D (80.0-100.0) fL MCHC 27.2 L (31.0-37.0) g/dL RDW 15.8 H (11.5-15.5) % Plt Count 501 H (150-450) k/uL Neutrophils # 15.3 H 15.1 H (1.3-7.7) k/uL Lymphocytes # (1.0-4.8) k/uL Macrocytosis Marked A Sodium (137-145) mmol/L Potassium (3.5-5.1) mmol/L Chloride (98-107) mmol/L Carbon Dioxide (22-30) mmol/L BUN (7-17) mg/dL Creatinine (0.52-1.04) mg/dL Glucose (74-99) mg/dL POC Glucose (mg/dL) (70-110) mg/dL Plasma Lactic Acid Ab (0.7-2.0) mmol/L Calcium (8.4-10.2) mg/dL Phosphorus 1.8 L (2.5-4.5) mg/dL Total Protein (6.3-8.2) g/dL Albumin (3.5-5.0) g/dL Free T4 (0.80-1.80) ng/dL Urine Appearance (Clear) Urine Protein (Negative) Urine Glucose (UA) (Negative) Urine Ketones (Negative) Urine Blood (Negative) Urine Bilirubin (Negative) Ur Leukocyte Esterase (Negative) Urine WBC (0-5) /hpf Uric Acid Crystals (None) /hpf Urine Bacteria (None) /hpf Urine Mucus (None) /hpf 04/09/24 04/09/24 04/09/24 Range/Units 05:45 08:00 09:08 WBC (3.8-10.6) k/uL RBC (3.80-5.40) m/uL Hgb (11.4-16.0) gm/dL Hct (34.0-46.0) % MCV (80.0-100.0) fL MCHC (31.0-37.0) g/dL RDW (11.5-15.5) % Plt Count (150-450) k/uL Neutrophils # (1.3-7.7) k/uL Lymphocytes # (1.0-4.8) k/uL Macrocytosis Sodium (137-145) mmol/L Potassium 6.3 H* (3.5-5.1) mmol/L Chloride 89 L (98-107) mmol/L Carbon Dioxide <5 L* (22-30) mmol/L BUN 24 H (7-17) mg/dL Creatinine 1.81 H (0.52-1.04) mg/dL Glucose 1078 H* (74-99) mg/dL POC Glucose (mg/dL) (70-110) mg/dL Plasma Lactic Acid Ab 4.4 H* (0.7-2.0) mmol/L Calcium (8.4-10.2) mg/dL Phosphorus 9.3 H* (2.5-4.5) mg/dL Total Protein (6.3-8.2) g/dL Albumin (3.5-5.0) g/dL Free T4 0.77 L (0.80-1.80) ng/dL Urine Appearance (Clear) Urine Protein (Negative) Urine Glucose (UA) (Negative) Urine Ketones (Negative) Urine Blood (Negative) Urine Bilirubin (Negative) Ur Leukocyte Esterase (Negative) Urine WBC (0-5) /hpf Uric Acid Crystals (None) /hpf Urine Bacteria (None) /hpf Urine Mucus (None) /hpf 04/09/24 04/09/24 04/09/24 Range/Units 10:27 11:02 11:45 WBC (3.8-10.6) k/uL RBC (3.80-5.40) m/uL Hgb (11.4-16.0) gm/dL Hct (34.0-46.0) % MCV (80.0-100.0) fL MCHC (31.0-37.0) g/dL RDW (11.5-15.5) % Plt Count (150-450) k/uL Neutrophils # (1.3-7.7) k/uL Lymphocytes # (1.0-4.8) k/uL Macrocytosis Sodium 146 H (137-145) mmol/L Potassium 3.4 L (3.5-5.1) mmol/L Chloride (98-107) mmol/L Carbon Dioxide 13 L (22-30) mmol/L BUN 31 H (7-17) mg/dL Creatinine 1.76 H (0.52-1.04) mg/dL Glucose 691 H* (74-99) mg/dL POC Glucose (mg/dL) >600 H* >600 H* (70-110) mg/dL Plasma Lactic Acid Ab (0.7-2.0) mmol/L Calcium (8.4-10.2) mg/dL Phosphorus (2.5-4.5) mg/dL Total Protein (6.3-8.2) g/dL Albumin (3.5-5.0) g/dL Free T4 (0.80-1.80) ng/dL Urine Appearance (Clear) Urine Protein (Negative) Urine Glucose (UA) (Negative) Urine Ketones (Negative) Urine Blood (Negative) Urine Bilirubin (Negative) Ur Leukocyte Esterase (Negative) Urine WBC (0-5) /hpf Uric Acid Crystals (None) /hpf Urine Bacteria (None) /hpf Urine Mucus (None) /hpf 04/09/24 04/09/24 04/09/24 Range/Units 12:07 13:14 13:22 WBC (3.8-10.6) k/uL RBC (3.80-5.40) m/uL Hgb (11.4-16.0) gm/dL Hct (34.0-46.0) % MCV (80.0-100.0) fL MCHC (31.0-37.0) g/dL RDW (11.5-15.5) % Plt Count (150-450) k/uL Neutrophils # (1.3-7.7) k/uL Lymphocytes # (1.0-4.8) k/uL Macrocytosis Sodium (137-145) mmol/L Potassium (3.5-5.1) mmol/L Chloride (98-107) mmol/L Carbon Dioxide (22-30) mmol/L BUN (7-17) mg/dL Creatinine (0.52-1.04) mg/dL Glucose (74-99) mg/dL POC Glucose (mg/dL) >600 H* 561 H* (70-110) mg/dL Plasma Lactic Acid Ab 3.4 H* (0.7-2.0) mmol/L Calcium (8.4-10.2) mg/dL Phosphorus (2.5-4.5) mg/dL Total Protein (6.3-8.2) g/dL Albumin (3.5-5.0) g/dL Free T4 (0.80-1.80) ng/dL Urine Appearance (Clear) Urine Protein (Negative) Urine Glucose (UA) (Negative) Urine Ketones (Negative) Urine Blood (Negative) Urine Bilirubin (Negative) Ur Leukocyte Esterase (Negative) Urine WBC (0-5) /hpf Uric Acid Crystals (None) /hpf Urine Bacteria (None) /hpf Urine Mucus (None) /hpf 04/09/24 04/09/24 04/09/24 Range/Units 14:12 15:14 16:04 WBC (3.8-10.6) k/uL RBC (3.80-5.40) m/uL Hgb (11.4-16.0) gm/dL Hct (34.0-46.0) % MCV (80.0-100.0) fL MCHC (31.0-37.0) g/dL RDW (11.5-15.5) % Plt Count (150-450) k/uL Neutrophils # (1.3-7.7) k/uL Lymphocytes # (1.0-4.8) k/uL Macrocytosis Sodium (137-145) mmol/L Potassium (3.5-5.1) mmol/L Chloride (98-107) mmol/L Carbon Dioxide (22-30) mmol/L BUN (7-17) mg/dL Creatinine (0.52-1.04) mg/dL Glucose (74-99) mg/dL POC Glucose (mg/dL) 537 H* 501 H* 436 H (70-110) mg/dL Plasma Lactic Acid Ab (0.7-2.0) mmol/L Calcium (8.4-10.2) mg/dL Phosphorus (2.5-4.5) mg/dL Total Protein (6.3-8.2) g/dL Albumin (3.5-5.0) g/dL Free T4 (0.80-1.80) ng/dL Urine Appearance (Clear) Urine Protein (Negative) Urine Glucose (UA) (Negative) Urine Ketones (Negative) Urine Blood (Negative) Urine Bilirubin (Negative) Ur Leukocyte Esterase (Negative) Urine WBC (0-5) /hpf Uric Acid Crystals (None) /hpf Urine Bacteria (None) /hpf Urine Mucus (None) /hpf 04/09/24 04/09/24 04/09/24 Range/Units 17:13 18:06 18:51 WBC (3.8-10.6) k/uL RBC (3.80-5.40) m/uL Hgb (11.4-16.0) gm/dL Hct (34.0-46.0) % MCV (80.0-100.0) fL MCHC (31.0-37.0) g/dL RDW (11.5-15.5) % Plt Count (150-450) k/uL Neutrophils # (1.3-7.7) k/uL Lymphocytes # (1.0-4.8) k/uL Macrocytosis Sodium (137-145) mmol/L Potassium (3.5-5.1) mmol/L Chloride (98-107) mmol/L Carbon Dioxide (22-30) mmol/L BUN (7-17) mg/dL Creatinine (0.52-1.04) mg/dL Glucose (74-99) mg/dL POC Glucose (mg/dL) 391 H 359 H 316 H (70-110) mg/dL Plasma Lactic Acid Ab (0.7-2.0) mmol/L Calcium (8.4-10.2) mg/dL Phosphorus (2.5-4.5) mg/dL Total Protein (6.3-8.2) g/dL Albumin (3.5-5.0) g/dL Free T4 (0.80-1.80) ng/dL Urine Appearance (Clear) Urine Protein (Negative) Urine Glucose (UA) (Negative) Urine Ketones (Negative) Urine Blood (Negative) Urine Bilirubin (Negative) Ur Leukocyte Esterase (Negative) Urine WBC (0-5) /hpf Uric Acid Crystals (None) /hpf Urine Bacteria (None) /hpf Urine Mucus (None) /hpf 04/09/24 04/09/24 04/09/24 Range/Units 19:09 19:09 19:59 WBC 15.7 H (3.8-10.6) k/uL RBC 3.48 L (3.80-5.40) m/uL Hgb 10.1 L (11.4-16.0) gm/dL Hct 32.1 L (34.0-46.0) % MCV (80.0-100.0) fL MCHC (31.0-37.0) g/dL RDW (11.5-15.5) % Plt Count (150-450) k/uL Neutrophils # 14.1 H (1.3-7.7) k/uL Lymphocytes # 0.9 L (1.0-4.8) k/uL Macrocytosis Sodium 152 H (137-145) mmol/L Potassium 3.3 L (3.5-5.1) mmol/L Chloride 111 H (98-107) mmol/L Carbon Dioxide (22-30) mmol/L BUN 30 H (7-17) mg/dL Creatinine 1.33 H (0.52-1.04) mg/dL Glucose 300 H (74-99) mg/dL POC Glucose (mg/dL) 236 H (70-110) mg/dL Plasma Lactic Acid Ab (0.7-2.0) mmol/L Calcium (8.4-10.2) mg/dL Phosphorus (2.5-4.5) mg/dL Total Protein (6.3-8.2) g/dL Albumin (3.5-5.0) g/dL Free T4 (0.80-1.80) ng/dL Urine Appearance (Clear) Urine Protein (Negative) Urine Glucose (UA) (Negative) Urine Ketones (Negative) Urine Blood (Negative) Urine Bilirubin (Negative) Ur Leukocyte Esterase (Negative) Urine WBC (0-5) /hpf Uric Acid Crystals (None) /hpf Urine Bacteria (None) /hpf Urine Mucus (None) /hpf 04/09/24 04/09/24 04/10/24 Range/Units 21:03 22:03 00:06 WBC (3.8-10.6) k/uL RBC (3.80-5.40) m/uL Hgb (11.4-16.0) gm/dL Hct (34.0-46.0) % MCV (80.0-100.0) fL MCHC (31.0-37.0) g/dL RDW (11.5-15.5) % Plt Count (150-450) k/uL Neutrophils # (1.3-7.7) k/uL Lymphocytes # (1.0-4.8) k/uL Macrocytosis Sodium 153 H (137-145) mmol/L Potassium 3.3 L (3.5-5.1) mmol/L Chloride 116 H (98-107) mmol/L Carbon Dioxide (22-30) mmol/L BUN 30 H (7-17) mg/dL Creatinine 1.07 H (0.52-1.04) mg/dL Glucose (74-99) mg/dL POC Glucose (mg/dL) 166 H 131 H (70-110) mg/dL Plasma Lactic Acid Ab (0.7-2.0) mmol/L Calcium (8.4-10.2) mg/dL Phosphorus (2.5-4.5) mg/dL Total Protein 5.9 L (6.3-8.2) g/dL Albumin 3.3 L (3.5-5.0) g/dL Free T4 (0.80-1.80) ng/dL Urine Appearance (Clear) Urine Protein (Negative) Urine Glucose (UA) (Negative) Urine Ketones (Negative) Urine Blood (Negative) Urine Bilirubin (Negative) Ur Leukocyte Esterase (Negative) Urine WBC (0-5) /hpf Uric Acid Crystals (None) /hpf Urine Bacteria (None) /hpf Urine Mucus (None) /hpf 04/10/24 04/10/24 04/10/24 Range/Units 00:46 03:30 04:38 WBC (3.8-10.6) k/uL RBC (3.80-5.40) m/uL Hgb (11.4-16.0) gm/dL Hct (34.0-46.0) % MCV (80.0-100.0) fL MCHC (31.0-37.0) g/dL RDW (11.5-15.5) % Plt Count (150-450) k/uL Neutrophils # (1.3-7.7) k/uL Lymphocytes # (1.0-4.8) k/uL Macrocytosis Sodium 150 H (137-145) mmol/L Potassium 2.9 L (3.5-5.1) mmol/L Chloride 115 H (98-107) mmol/L Carbon Dioxide 31 H (22-30) mmol/L BUN 27 H (7-17) mg/dL Creatinine (0.52-1.04) mg/dL Glucose 106 H (74-99) mg/dL POC Glucose (mg/dL) 121 H (70-110) mg/dL Plasma Lactic Acid Ab (0.7-2.0) mmol/L Calcium 8.0 L (8.4-10.2) mg/dL Phosphorus 1.6 L (2.5-4.5) mg/dL Total Protein 5.6 L (6.3-8.2) g/dL Albumin 3.1 L (3.5-5.0) g/dL Free T4 (0.80-1.80) ng/dL Urine Appearance Turbid H (Clear) Urine Protein 2+ H (Negative) Urine Glucose (UA) 2+ H (Negative) Urine Ketones 1+ H (Negative) Urine Blood Moderate H (Negative) Urine Bilirubin 2+ H (Negative) Ur Leukocyte Esterase Small H (Negative) Urine WBC 74 H (0-5) /hpf Uric Acid Crystals Many H (None) /hpf Urine Bacteria Rare H (None) /hpf Urine Mucus Rare H (None) /hpf 04/10/24 04/10/24 Range/Units 04:45 06:54 WBC 15.9 H (3.8-10.6) k/uL RBC 2.87 L (3.80-5.40) m/uL Hgb 8.7 L (11.4-16.0) gm/dL Hct 25.6 L (34.0-46.0) % MCV (80.0-100.0) fL MCHC (31.0-37.0) g/dL RDW 15.9 H (11.5-15.5) % Plt Count (150-450) k/uL Neutrophils # (1.3-7.7) k/uL Lymphocytes # (1.0-4.8) k/uL Macrocytosis Sodium (137-145) mmol/L Potassium (3.5-5.1) mmol/L Chloride (98-107) mmol/L Carbon Dioxide (22-30) mmol/L BUN (7-17) mg/dL Creatinine (0.52-1.04) mg/dL Glucose (74-99) mg/dL POC Glucose (mg/dL) 128 H (70-110) mg/dL Plasma Lactic Acid Ab (0.7-2.0) mmol/L Calcium (8.4-10.2) mg/dL Phosphorus (2.5-4.5) mg/dL Total Protein (6.3-8.2) g/dL Albumin (3.5-5.0) g/dL Free T4 (0.80-1.80) ng/dL Urine Appearance (Clear) Urine Protein (Negative) Urine Glucose (UA) (Negative) Urine Ketones (Negative) Urine Blood (Negative) Urine Bilirubin (Negative) Ur Leukocyte Esterase (Negative) Urine WBC (0-5) /hpf Uric Acid Crystals (None) /hpf Urine Bacteria (None) /hpf Urine Mucus (None) /hpf Assessment and Plan Assessment: 1. Acute diabetic ketoacidosis -Patient has been placed on IV fluids along with IV insulin infusion; IV bicarbonate infusion -Continue with IV insulin per protocol; monitor chemical profile with phosphorus every 4 hours and make recommendations accordingly 2. Acute kidney injury, secondary to hypovolemia; remains on IV fluids in form of normal saline; we will monitor strict RUTH's, daily weights, renal function electrolytes; nephrotoxins and hypotension 3. Altered mental status, this is likely a picture of acute metabolic encephalopathy secondary to DKA 4. Multivessel coronary artery disease Moderate CAD in Mid LAD Moderate CAD in LCx 5. CHF with mild impairment of the LV function with an ejection fraction of 40 to 45% 6. Hypothyroidism; patient received IV levothyroxine 200 mcg in ED 7. Hyperlipidemia; currently not on any lipid-lowering therapy 8. Diabetes mellitus/diabetic peripheral neuropathy and gastroparesis; patient is currently on IV insulin infusion per protocol 9. COPD; not in exacerbation; with home inhaler therapy 10. Peripheral vascular disease with stenosis of the right [employer]; patient takes aspirin, Pletal 11. Hypertension; currently hypotensive related to DKA and hypovolemia; hold antihypertensive medications at this time DVT prophylaxis; SCDs/subcu heparin CODE STATUS; full code
--- NOTE | 2024-04-11 14:32 | P.PN ---
Subjective Progress Note Date: 04/11/24 64-year-old female with past medical history of hypertension, hyperlipidemia, PVD, rheumatoid arthritis, diabetes and frequent admissions for similar complaints presenting today for altered mental status. Per EMS patient was last seen normal 2 hours prior to arrival. Found by boyfriend confused. EMS states blood glucose read as "high". EMS unable to obtain pulse ox prior to arrival. Hx limited by patient's AMS. Patient was found to be in DKA, she had significantly elevated blood sugar and a picture of acute diabetic ketoacidosis with acute anion gap metabolic acidosis, blood sugar on her initial presentation was as high as 749, patient also had repeat blood sugars were in the range of over 1200, patient was placed on the DKA protocol, and her most recent blood sugar is 691. Patient also had positive ketones, patient was seen in the ER in consultation, I recommended we continue the DKA protocol, and will arrange for the patient to be admitted to the ICU once a bed becomes available. The patient has altered mental status, could not obtain any history from the patient herself. 04/11/2024 -- patient is evaluated in room at bedside; feels in ICU -- Patient is now on Levemir insulin and NovoLog insulin as per sliding scale. Her labs are unremarkable she had relatively normal basic metabolic profile, anion gap has completely closed bicarb is 22 WBC count is 12.4 hemoglobin is 10. Blood sugar is 208 this morning. -Patient has been placed on a diabetic diet and is tolerating well; plan to continue with IV fluids at this time -- Continue with scheduled dose of Levemir along with insulin sliding scale Objective - Vital Signs Vital signs: Vital Signs Temp 37.1 F L 04/11/24 08:00 Pulse 78 04/11/24 09:00 Resp 14 04/11/24 09:00 BP 97/64 04/11/24 09:00 Pulse Ox 98 04/11/24 09:00 FiO2 Intake & Output 04/10/24 04/11/24 04/11/24 18:59 06:59 18:59 Intake Total 2429.145 1560 200 Output Total 570 510 35 Balance 9150.723 7531 165 Weight 77.111 kg 60.7 kg Intake: IV 850 1200 200 D5-0.45% NaCl with KCl 150 20Meq/l 1,000 ml @ 50 mls /hr IV .Q20H [facility] Rx#: [id number] Dextrose 5% in Water 1, 1200 200 000 ml @ 100 mls/hr IV . Q10H [facility] Rx#:[id number] Potassium Chloride 10 meq 700 In Water For Injection 1 100ml.bag @ 100 mls/hr IVPB Q1H [facility] Rx#: [id number] Intake, IV Titration 1579.145 Amount Dexmedetomidine/0.9% NaCl 29.145 (Pmx) 400 mcg In Empty Bag 1 bag @ 0.2 MCG/KG/HR 3.856 mls/hr IV .Q24H [facility] Rx#:[id number] Dextrose 5% in Water 1, 800 000 ml @ 100 mls/hr IV . Q10H [facility] Rx#:[id number] Potassium Phosphate 10 750 mmol In Sodium Chloride 0 .9% 250 ml @ 125 mls/hr IV Q2H [facility] Rx#:[id number] Oral 360 Output: Urine 570 510 35 Other: Voiding Method Indwelling Catheter Indwelling Catheter Indwelling Catheter # Bowel Movements 1 - Exam CONSTITUTIONAL: Ill-appearing, in mild distress SKIN cool, dry, no jaundice, hives or petechiae EYES: Pupils are equally round, extraocular movements intact without nystagmus, clear conjunctiva, non-icteric sclera HENT: Normocephalic, atraumatic, exquisitely dry mucus membranes, oropharynx clear without exudates NECK: , Full range of motion, normal appearance PULMONARY: Clear to auscultation without wheezes, rhonchi, or rales, normal excursion, no accessory muscle use and no stridor, mild tachypnea CARDIOVASCULAR: Regular rate, rhythm, normal S1 and S2. No appreciated murmurs, rubs or gallops. 1+ radial and dorsalis pedis pulses with intact distal perfusion. No lower extremity edema GASTROINTESTINAL: Soft, active bowel sounds throughout, non-tender, non- distended, no palpable masses, no rebound or guarding. No hepatosplenomegaly: MUSCULOSKELETAL: Extremities have no gross deformity, no edema, redness, or swelling. No calf swelling NEUROLOGIC:_a/o x 0, GCS 13, patient obeys commands, is confused and has inappropriate words in response to questions and opens eyes spontaneously, confused mentation and speech, no facial droop, equal strength in all 4 extremities, exam is limited by patient's altered mental status moves all extremities x 4 without motor or sensory deficit - Labs CBC & Chem 7: 04/11/24 08:01 04/11/24 08:01 Labs: Abnormal Lab Results - Last 24 Hours (Table) 04/10/24 04/10/24 04/10/24 Range/Units 11:57 15:04 16:39 WBC (3.8-10.6) k/uL RBC (3.80-5.40) m/uL Hgb (11.4-16.0) gm/dL Hct (34.0-46.0) % Sodium 146 H (137-145) mmol/L Chloride 110 H (98-107) mmol/L BUN 18 H (7-17) mg/dL Glucose 209 H (74-99) mg/dL POC Glucose (mg/dL) 184 H 204 H (70-110) mg/dL Calcium 7.8 L (8.4-10.2) mg/dL 04/10/24 04/10/24 04/11/24 Range/Units 23:35 23:57 02:00 WBC (3.8-10.6) k/uL RBC (3.80-5.40) m/uL Hgb (11.4-16.0) gm/dL Hct (34.0-46.0) % Sodium (137-145) mmol/L Chloride (98-107) mmol/L BUN (7-17) mg/dL Glucose (74-99) mg/dL POC Glucose (mg/dL) 28 L* 170 H 67 L (70-110) mg/dL Calcium (8.4-10.2) mg/dL 04/11/24 04/11/24 04/11/24 Range/Units 03:37 08:01 08:01 WBC 12.4 H (3.8-10.6) k/uL RBC 3.27 L (3.80-5.40) m/uL Hgb 10.0 L (11.4-16.0) gm/dL Hct 31.0 L (34.0-46.0) % Sodium (137-145) mmol/L Chloride (98-107) mmol/L BUN (7-17) mg/dL Glucose 205 H (74-99) mg/dL POC Glucose (mg/dL) 178 H (70-110) mg/dL Calcium 7.3 L (8.4-10.2) mg/dL Microbiology - Last 24 Hours (Table) 04/09/24 09:08 Blood Culture - Preliminary Blood Assessment and Plan Assessment: 1. Acute diabetic ketoacidosis -Patient has been placed on IV fluids along with IV insulin infusion; IV bicarbonate infusion -Continue with IV insulin per protocol; monitor chemical profile with phosphorus every 4 hours and make recommendations accordingly 2. Acute kidney injury, secondary to hypovolemia; remains on IV fluids in form of normal saline; we will monitor strict RUTH's, daily weights, renal function electrolytes; nephrotoxins and hypotension 3. Altered mental status, this is likely a picture of acute metabolic encephalopathy secondary to DKA 4. Multivessel coronary artery disease Moderate CAD in Mid LAD Moderate CAD in LCx 5. CHF with mild impairment of the LV function with an ejection fraction of 40 to 45% 6. Hypothyroidism; patient received IV levothyroxine 200 mcg in ED 7. Hyperlipidemia; currently not on any lipid-lowering therapy 8. Diabetes mellitus/diabetic peripheral neuropathy and gastroparesis; patient is currently on IV insulin infusion per protocol 9. COPD; not in exacerbation; with home inhaler therapy 10. Peripheral vascular disease with stenosis of the right [employer]; patient takes aspirin, Pletal 11. Hypertension; currently hypotensive related to DKA and hypovolemia; hold antihypertensive medications at this time DVT prophylaxis; SCDs/subcu heparin CODE STATUS; full code
[2024-04-11 16:38] LABS: Glucose,Whole Blood 71 mg/dL (70-110)
[2024-04-11] MEDS: DEXTROSE 5% IN WATER 1,000 ML IV SCH (16:52)
[2024-04-11 20:38] LABS: Glucose,Whole Blood 134 mg/dL (70-110)
[2024-04-11] MEDS: MORPHINE SULFATE 4 MG/ML SYRINGE IV PRN (23:20)
[2024-04-12 05:57] LABS: Glucose,Whole Blood 407 mg/dL (70-110)
[2024-04-12 08:04] LABS: Glucose,Whole Blood 390 mg/dL (70-110)
[2024-04-12] MEDS: CEPHALEXIN 500 MG CAP PO SCH (09:01)
--- NOTE | 2024-04-12 12:04 | P.PN ---
Subjective Progress Note Date: 04/12/24 This is a 64-year-old female, known history of type 1 diabetes, coronary artery disease, CVA, history of deep vein thrombosis, dyslipidemia hypertension coronary artery disease and previous [place], chronic kidney disease, hypothyroidism, patient was sent to the hospital for altered mental status. Patient was found to be in DKA, she had significantly elevated blood sugar and a picture of acute diabetic ketoacidosis with acute anion gap metabolic acidosis, blood sugar on her initial presentation was as high as 749, patient also had repeat blood sugars were in the range of over 1200, patient was placed on the DKA protocol, and her most recent blood sugar is 691. Patient also had positive ketones, patient was seen in the ER in consultation, I recommended we continue the DKA protocol, and will arrange for the patient to be admitted to the ICU once a bed becomes available. The patient has altered mental status, could not obtain any history from the patient herself. At her previous admissions, patient had previous admissions to the ICU, with DKA, her other issues included rheumatoid arthritis hypertension dyslipidemia peripheral vessel occlusive disease, and previous admissions with DKA. Seen today on 04/10/2024, remains in the ICU, patient is doing great, her mentation is significantly improved, her anion gap has closed, patient does have hypernatremia, hence her IV fluid will be changed to D5W at 100 cc an hour. She is presently getting D5 4 5 at 50 cc/h. Patient is on room air, does not seem to be in any distress. Her mentation has significantly improved over the last 24 hours. WBC is 15.9 hemoglobin 8.7 sodium is 150 potassium 2.9 chloride is 115 BUN is 27 creatinine 0.89 patient is now on Levemir insulin and sliding scale coverage/NovoLog insulin Patient was seen on 04/11/2024, patient is doing very well, recovered nicely from her acute diabetic ketoacidosis, she is now on Levemir insulin and NovoLog insulin as per sliding scale. Her labs are unremarkable she had relatively normal basic metabolic profile, anion gap has completely closed bicarb is 22 WBC count is 12.4 hemoglobin is 10. Blood sugar is 208 this morning. The patient is seen today April 12, 2024 in follow-up on the regular medical floor. She was transferred out of the intensive care unit earlier this morning. She is currently resting comfortably in bed. Awake and alert in no acute distress. Maintaining good O2 saturations in the 90s on room air. Glucose 390. She is currently on Levemir and a NovoLog sliding scale. Objective - Vital Signs Vital signs: Vital Signs Temp 98.5 F 04/12/24 07:41 Pulse 103 H 04/12/24 07:41 Resp 16 04/12/24 07:41 BP 135/90 04/12/24 07:41 Pulse Ox 98 04/12/24 07:41 FiO2 Intake & Output 04/11/24 04/12/24 04/12/24 18:59 06:59 18:59 Intake Total 1900 Output Total 435 2600 Balance 1465 -2600 Intake: IV 1300 Dextrose 5% in Water 1, 1300 000 ml @ 100 mls/hr IV . Q10H ONE Rx#:[id number] Oral 600 Output: Urine 435 2600 Other: Voiding Method Indwelling Catheter Indwelling Catheter - Exam GENERAL EXAM: Alert, pleasant 64-year-old female, on room air, comfortable in no apparent distress. HEAD: Normocephalic. EYES: Normal reaction of pupils, equal size. NOSE: Clear with pink turbinates. THROAT: No erythema or exudates. NECK: No masses, no JVD. CHEST: No chest wall deformity. LUNGS: Equal air entry with no crackles, wheeze, rhonchi or dullness. CVS: S1 and S2 normal with no audible murmur, regular rhythm. ABDOMEN: No hepatosplenomegaly, normal bowel sounds, no guarding or rigidity. SPINE: No scoliosis or deformity SKIN: No rashes CENTRAL NERVOUS SYSTEM: No focal deficits, tone is normal in all 4 extremities. EXTREMITIES: There is no peripheral edema. No clubbing, no cyanosis. Peripheral pulses are intact. - Labs CBC & Chem 7: 04/11/24 08:01 04/11/24 08:01 Labs: Abnormal Lab Results - Last 24 Hours (Table) 04/11/24 04/12/24 04/12/24 Range/Units 20:37 05:55 08:02 POC Glucose (mg/dL) 134 H 407 H 390 H (70-110) mg/dL Microbiology - Last 24 Hours (Table) 04/09/24 09:08 Blood Culture - Preliminary Blood Assessment and Plan Assessment: Acute diabetic ketoacidosis, recovered Acute kidney injury, secondary to hypovolemia, recovered Altered mental status, this is likely a picture of acute metabolic encephalopathy secondary to DKA Multivessel coronary artery disease Moderate CAD in Mid LAD Moderate CAD in LCx CHF with mild impairment of the LV function with an ejection fraction of 40 to 45% History of renal cell carcinoma with a partial nephrectomy on the right Remote history of DVT Hypothyroidism Hyperlipidemia Diabetic peripheral neuropathy COPD 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 Number of minutes spent on the visit: 24 Dictation was produced using [employer] dictation software. Please excuse any grammatical, word or spelling errors.
[2024-04-12 12:09] LABS: Glucose,Whole Blood 289 mg/dL (70-110)
--- NOTE | 2024-04-12 15:17 | CDI ---
Documentation Clarification Form Date: 04/12/2024 02:52:00 PM From: Karina Manzanares RN, CCDS Phone: [phone] Admit Date: 04/09/2024 07:07:00 AM Patient Name: Lala Kenyon Visit Number: [id number] Discharge Date: ATTENTION: The Clinical Documentation Specialists (CDI) and [facility] Coding Staff appreciate your assistance in clarifying documentation. Please respond to the clarification below the line at the bottom and electronically sign. The CDI & [facility] Coding staff will review the response and follow-up if needed. Please note: Queries are made part of the Legal Health Record. If you have any questions, please contact the author of this message via ITS. Doctor/Provider: Dusty Olivares Your patient has the documented diagnosis of unspecified CHF with mild impairment of LV function with an ejection fraction of 40-45%. Additional information regarding the [type, acuity] of CHF is requested. History/Risk Factors: Coronary Artery Disease (CAD), Cancer, COPD, CVA/TIA, Diabetes Mellitus, Deep Vein Thrombosis (DVT), Eye Disorder, GERD/Reflux, Hyperlipidemia, Hypertension, Myocardial Infarction (VT), Musculoskeletal Clinical Indicators: 64-year-old female presenting today for altered mental status. VS/Pulse OX: 109/60 104 24 96.7 99% RA EKG: Sinus tachycardia vent rate 102 Left ventricular hypertrophy and St-T changes EF (per progress note) 40-45% Chest X Ray: Cardiomegaly without ac cardiopulmonary abnormality Treatment: ICU/Telemetry monitoring Imdur 30 30 MG PO Daily (home med) ASA EC 81 MG PO Daily (home med) In your professional opinion, can you please clarify the [acuity and type] of CHF if known? [ @@@ ] Chronic Systolic Heart Failure (reduced EF) [ ] CHF Ruled out [ ] Other, please specify [ ] Unable to determine (Template Last Revised: July 2020) MTDD
[2024-04-12 16:57] LABS: Glucose,Whole Blood 180 mg/dL (70-110)
[2024-04-12 20:26] LABS: Glucose,Whole Blood 73 mg/dL (70-110)
--- NOTE | 2024-04-12 22:17 | P.PN ---
Subjective Progress Note Date: 04/12/24 64-year-old female with past medical history of hypertension, hyperlipidemia, PVD, rheumatoid arthritis, diabetes and frequent admissions for similar complaints presenting today for altered mental status. Per EMS patient was last seen normal 2 hours prior to arrival. Found by boyfriend confused. EMS states blood glucose read as "high". EMS unable to obtain pulse ox prior to arrival. Hx limited by patient's AMS. Patient was found to be in DKA, she had significantly elevated blood sugar and a picture of acute diabetic ketoacidosis with acute anion gap metabolic acidosis, blood sugar on her initial presentation was as high as 749, patient also had repeat blood sugars were in the range of over 1200, patient was placed on the DKA protocol, and her most recent blood sugar is 691. Patient also had positive ketones, patient was seen in the ER in consultation, I recommended we continue the DKA protocol, and will arrange for the patient to be admitted to the ICU once a bed becomes available. The patient has altered mental status, could not obtain any history from the patient herself. 04/11/2024 -- patient is evaluated in room at bedside; feels in ICU -- Patient is now on Levemir insulin and NovoLog insulin as per sliding scale. Her labs are unremarkable she had relatively normal basic metabolic profile, anion gap has completely closed bicarb is 22 WBC count is 12.4 hemoglobin is 10. Blood sugar is 208 this morning. -Patient has been placed on a diabetic diet and is tolerating well; plan to continue with IV fluids at this time -- Continue with scheduled dose of Levemir along with insulin sliding scale 04/12/2024 Patient is evaluated today resting in bed. Blood glucose up into the 400s today. Having highs and lows. Levemir has been decreased to 12 units HS but may need to be further adjusted. Has been started on oral keflex BID. Review of Systems Constitutional: Denied any fatigue denied any fever. Cardio vascular: denied any chest pain, palpitations Gastrointestinal: denied any nausea, vomiting, diarrhea Pulmonary: Denied any shortness of breath cough Neurologic denied any new focal deficits All inpatient medications were reviewed and appropriate changes in these medications as dictated in the interval history and assessment and plan. PHYSICAL EXAMINATION: GENERAL: The patient is alert and oriented x3, not in any acute distress. Well developed, well nourished. HEENT: Pupils are round and equally reacting to light. EOMI. No scleral icterus. No conjunctival pallor. Normocephalic, atraumatic. No pharyngeal erythema. No thyromegaly. CARDIOVASCULAR: S1 and S2 present. No murmurs, rubs, or gallops. PULMONARY: Chest is clear to auscultation, no wheezing or crackles. ABDOMEN: Soft, nontender, nondistended, normoactive bowel sounds. No palpable organomegaly. MUSCULOSKELETAL: No joint swelling or deformity. EXTREMITIES: No cyanosis, clubbing, or pedal edema. NEUROLOGICAL: Gross neurological examination did not reveal any focal deficits. SKIN: No rashes. Assessment and Plan 1. Acute diabetic ketoacidosis; resolved and off the insulin gtt at this time. Patient has been transitioned to sliding scale insulin accuchecks ACHS; 2. Acute kidney injury, secondary to hypovolemia; remains on IV fluids in form of normal saline; we will monitor strict RUTH's, daily weights, renal function electrolytes; nephrotoxins and hypotension 3. Altered mental status, this is likely a picture of acute metabolic encephalopathy secondary to DKA 4. Multivessel coronary artery disease Moderate CAD in Mid LAD Moderate CAD in LCx 5. chronic heart failure, systolic dysfunction EF 40% with no acute exacerbation 6. Hypothyroidism; patient received IV levothyroxine 200 mcg in ED 7. Hyperlipidemia; currently not on any lipid-lowering therapy 8. Diabetes mellitus/diabetic peripheral neuropathy and gastroparesis 9. COPD; not in exacerbation; with home inhaler therapy 10. 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 Hypertension; currently hypotensive related to DKA and hypovolemia; hold antihypertensive medications at this time DVT prophylaxis; SCDs/subcu heparin CODE STATUS; full code The impression and plan of care has been dictated by Laura Lucas Nurse Practitioner as directed. Dr. Chuck MD I have performed a history and physical examination and medical decision making of this patient, discussed the same with the dictator, and agree with the dictators assessment and plan as written, documented as a scribe. Based on total visit time, I have performed more than 50% of this visit. Objective - Vital Signs Vital signs: Vital Signs Temp 97.9 F 04/12/24 12:05 Pulse 101 H 04/12/24 12:05 Resp 16 04/12/24 12:05 BP 137/82 04/12/24 12:05 Pulse Ox 98 04/12/24 12:05 FiO2 Intake & Output 04/11/24 04/12/24 04/12/24 18:59 06:59 18:59 Intake Total 1900 Output Total 435 2600 Balance 1465 -2600 Intake: IV 1300 Dextrose 5% in Water 1, 1300 000 ml @ 100 mls/hr IV . Q10H ONE Rx#:[id number] Oral 600 Output: Urine 435 2600 Other: Voiding Method Indwelling Catheter Indwelling Catheter - Labs CBC & Chem 7: 04/11/24 08:01 04/11/24 08:01 Labs: Abnormal Lab Results - Last 24 Hours (Table) 04/11/24 04/12/24 04/12/24 Range/Units 20:37 05:55 08:02 POC Glucose (mg/dL) 134 H 407 H 390 H (70-110) mg/dL 04/12/24 Range/Units 12:07 POC Glucose (mg/dL) 289 H (70-110) mg/dL Microbiology - Last 24 Hours (Table) 04/09/24 09:08 Blood Culture - Preliminary Blood Assessment and Plan Time with Patient: Less than 30
[2024-04-13 01:32] LABS: Glucose,Whole Blood 191 mg/dL (70-110)
[2024-04-13 08:10] LABS: Glucose,Whole Blood 488 mg/dL (70-110)
[2024-04-13 08:53] LABS: BUN/Creat Ratio 16.44 Ratio (12.00-20.00); Blood Urea Nitrogen 14.8 mg/dL (9.0-27.0); Calcium 7.9 mg/dL (8.7-10.3); Carbon Dioxide 28.1 mmol/L (21.6-31.8); Chloride 100 mmol/L (96-109); Glucose 370 mg/dL (70-110); Potassium 4.5 mmol/L (3.5-5.5); Sodium 138 mmol/L (135-145)
[2024-04-13] MEDS: INSULIN DETEMIR (LEVEMIR) 100 UNIT/ML SYR SQ SCH (09:02)
--- NOTE | 2024-04-13 11:19 | P.PN ---
Subjective Progress Note Date: 04/13/24 This is a 64-year-old female, known history of type 1 diabetes, coronary artery disease, CVA, history of deep vein thrombosis, dyslipidemia hypertension coronary artery disease and previous [place], chronic kidney disease, hypothyroidism, patient was sent to the hospital for altered mental status. Patient was found to be in DKA, she had significantly elevated blood sugar and a picture of acute diabetic ketoacidosis with acute anion gap metabolic acidosis, blood sugar on her initial presentation was as high as 749, patient also had repeat blood sugars were in the range of over 1200, patient was placed on the DKA protocol, and her most recent blood sugar is 691. Patient also had positive ketones, patient was seen in the ER in consultation, I recommended we continue the DKA protocol, and will arrange for the patient to be admitted to the ICU once a bed becomes available. The patient has altered mental status, could not obtain any history from the patient herself. At her previous admissions, patient had previous admissions to the ICU, with DKA, her other issues included rheumatoid arthritis hypertension dyslipidemia peripheral vessel occlusive disease, and previous admissions with DKA. Seen today on 04/10/2024, remains in the ICU, patient is doing great, her mentation is significantly improved, her anion gap has closed, patient does have hypernatremia, hence her IV fluid will be changed to D5W at 100 cc an hour. She is presently getting D5 4 5 at 50 cc/h. Patient is on room air, does not seem to be in any distress. Her mentation has significantly improved over the last 24 hours. WBC is 15.9 hemoglobin 8.7 sodium is 150 potassium 2.9 chloride is 115 BUN is 27 creatinine 0.89 patient is now on Levemir insulin and sliding scale coverage/NovoLog insulin Patient was seen on 04/11/2024, patient is doing very well, recovered nicely from her acute diabetic ketoacidosis, she is now on Levemir insulin and NovoLog insulin as per sliding scale. Her labs are unremarkable she had relatively normal basic metabolic profile, anion gap has completely closed bicarb is 22 WBC count is 12.4 hemoglobin is 10. Blood sugar is 208 this morning. The patient is seen today April 12, 2024 in follow-up on the regular medical floor. She was transferred out of the intensive care unit earlier this morning. She is currently resting comfortably in bed. Awake and alert in no acute distress. Maintaining good O2 saturations in the 90s on room air. Glucose 390. She is currently on Levemir and a NovoLog sliding scale. The patient is seen today April 13, 2024 in follow-up on the regular medical floor. She is currently sitting up in bed. Awake and alert in no acute distress. Maintaining good O2 saturations in the 90s on room air. She has been afebrile. Hemodynamically stable. No IV fluids. Cultures revealed no growth. Sodium 138. Potassium 4.5. Bicarb 28. BUN 15. Creatinine 0.9. Glucose 370. She has been transition to Levemir and NovoLog sliding scale. She is currently on Keflex. Objective - Vital Signs Vital signs: Vital Signs Temp 98.5 F 04/13/24 08:00 Pulse 119 H 04/13/24 08:00 Resp 14 04/13/24 08:00 BP 118/96 04/13/24 08:00 Pulse Ox 95 04/13/24 08:00 FiO2 Intake & Output 04/12/24 04/13/24 04/13/24 18:59 06:59 18:59 Intake Total 50 240 Output Total 500 600 Balance -450 -360 Intake: Intake, IV Titration 50 Amount cefTRIAXone 1 gm In 50 Sodium Chloride 0.9% 50 ml @ 100 mls/hr IVPB Q24H [facility] Rx#:[id number] Oral 240 Output: Urine 500 600 Other: Voiding Method Indwelling Catheter Indwelling Catheter - Exam GENERAL EXAM: Alert, 64-year-old female, sitting up at the bedside, on room air, in no apparent distress. HEAD: Normocephalic. EYES: Normal reaction of pupils, equal size. NOSE: Clear with pink turbinates. THROAT: No erythema or exudates. NECK: No masses, no JVD. CHEST: No chest wall deformity. LUNGS: Equal air entry with no crackles, wheeze, rhonchi or dullness. CVS: S1 and S2 normal with no audible murmur, regular rhythm. ABDOMEN: No hepatosplenomegaly, normal bowel sounds, no guarding or rigidity. SPINE: No scoliosis or deformity SKIN: No rashes CENTRAL NERVOUS SYSTEM: No focal deficits, tone is normal in all 4 extremities. EXTREMITIES: There is no peripheral edema. No clubbing, no cyanosis. Peripheral pulses are intact. - Labs CBC & Chem 7: 04/11/24 08:01 04/13/24 05:28 Labs: Abnormal Lab Results - Last 24 Hours (Table) 04/12/24 04/12/24 04/13/24 Range/Units 12:07 16:56 01:30 Glucose (70-110) mg/dL POC Glucose (mg/dL) 289 H 180 H 191 H (70-110) mg/dL Calcium (8.7-10.3) mg/dL 04/13/24 04/13/24 Range/Units 05:28 08:08 Glucose 370 H (70-110) mg/dL POC Glucose (mg/dL) 488 H (70-110) mg/dL Calcium 7.9 L (8.7-10.3) mg/dL Microbiology - Last 24 Hours (Table) 04/09/24 09:08 Blood Culture - Preliminary Blood Assessment and Plan Assessment: Acute diabetic ketoacidosis, recovered Acute kidney injury, secondary to hypovolemia, recovered Altered mental status, this is likely a picture of acute metabolic encephalopathy secondary to DKA, recovered Multivessel coronary artery disease Moderate CAD in Mid LAD Moderate CAD in LCx CHF with mild impairment of the LV function with an ejection fraction of 40 to 45% History of renal cell carcinoma with a partial nephrectomy on the right Remote history of DVT Hypothyroidism Hyperlipidemia Diabetic peripheral neuropathy COPD 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 Number of minutes spent on the visit: 22 Dictation was produced using [employer] software. Please excuse any grammatical, word or spelling errors.
[2024-04-13 12:16] LABS: Glucose,Whole Blood 255 mg/dL (70-110)
[2024-04-13 13:55] VITALS: BP 136/87; PULSE 97; RESP 20; TEMP 98.2
[2024-04-13 17:09] LABS: Glucose,Whole Blood 129 mg/dL (70-110)
[2024-04-13] MEDS ORDERED: INSULIN DETEMIR (LEVEMIR) 100 UNIT/ML SYR SQ SCH ×2 (21:00)
--- NOTE | 2024-04-17 14:54 | P.DS ---
Providers Date of admission: 04/09/24 07:07 Attending physician: Dusty Olivares MD Consults: 04/09/24 07:05 Consult Physician Stat Consulting Provider: Yamile Sunshine Reason/Comments: Critical Care- DKA Do you want consulting provider notified?: Already Contacted Primary care physician: Stated None Hospital Course: Final Diagnosis 1. Acute diabetic ketoacidosis; resolved and off the insulin gtt at this time. Patient has been transitioned to sliding scale insulin accuchecks ACHS; 2. Acute kidney injury, secondary to hypovolemia; remains on IV fluids in form of normal saline; we will monitor strict RUTH's, daily weights, renal function electrolytes; nephrotoxins and hypotension 3. Altered mental status, this is likely a picture of acute metabolic encephalopathy secondary to DKA 4. Multivessel coronary artery disease Moderate CAD in Mid LAD Moderate CAD in LCx 5. chronic heart failure, systolic dysfunction EF 40% with no acute exacerbation 6. Hypothyroidism 7. Hyperlipidemia; currently not on any lipid-lowering therapy 8. Diabetes mellitus/diabetic peripheral neuropathy and gastroparesis 9. COPD; not in exacerbation; with home inhaler therapy 10. Peripheral vascular disease with stenosis of the right [employer]; patient takes aspirin, Pletal 11. Hypertension Discharge Disposition Patient is stable for discharge home. Patient to increase levothyroxine to 50 mcg daily due to elevated TSH and decreased T4. Patient no longer has PCP as she has been discharged from Dr. Bowles office. She is a high risk for readmission secondary to poorly controlled diabetes. Oral Augmentin for the next 7 days. She will be given a dose of 1 time of oral fluconazole. Patient to continue on the nystatin powder to the groin and abdominal folds for the next 7 days. Patient should continue on sliding scale Accu-Cheks as well as Tradjenta and Lantus 25 units at at bedtime. Patient has a follow-up with Dr. Loretta Parada for new patient on April 21 at 3 PM. Hospital Course 64-year-old female with past medical history of hypertension, hyperlipidemia, PVD, rheumatoid arthritis, diabetes and frequent admissions for similar complaints presenting today for altered mental status. Per EMS patient was last seen normal 2 hours prior to arrival. Found by boyfriend confused. EMS states blood glucose read as "high". EMS unable to obtain pulse ox prior to arrival. Hx limited by patient's AMS. Patient was found to be in DKA, she had significantly elevated blood sugar and a picture of acute diabetic ketoacidosis with acute anion gap metabolic acidosis, blood sugar on her initial presentation was as high as 749, patient also had repeat blood sugars were in the range of over 1200, patient was placed on the DKA protocol, and her most recent blood sugar is 691. Patient also had positive ketones, patient was seen in the ER in consultation, I recommended we continue the DKA protocol, and will arrange for the patient to be admitted to the ICU once a bed becomes available. The patient has altered mental status, could not obtain any history from the patient herself. Her mentation has improved. She is currently off the insulin gtt and her blood glucose has been monitored closely. She is a frail diabetic with highs and lows. Additionally she has been disharged from Dr. Bowles office due to non compliance with follow ups. Her electrolytes are all within normal limits. Please see medication reconciliation for a list of current medications. Thank you for allowing us to participate in the care of this patient. The impression and plan of care has been dictated by Laura Lucas, Nurse Practitioner as directed. Dr. Chuck MD I have performed a history and physical examination and medical decision making of this patient, discussed the same with the dictator, and agree with the dictators assessment and plan as written, documented as a scribe. Based on total visit time, I have performed more than 50% of this visit. Patient Condition at Discharge: Stable Plan - Discharge Summary New Discharge Prescriptions: New Amoxic-Pot Clav 875-125Mg [Augmentin 875-125] 1 tab PO Q12HR 7 Days #14 tab Fluconazole [Diflucan] 150 mg PO ONCE #1 tab Nystatin 100,000 Unit/gm Powd [Mycostatin Powder] 1 applic TOPICAL TID 7 Days #30 gm Continue Venlafaxine HCl [Effexor XR] 225 mg PO DAILY Pantoprazole Sodium [Protonix] 40 mg PO BID Aspirin EC [Ecotrin Low Dose] 81 mg PO DAILY Mirtazapine 7.5 mg PO HS cilostazoL [Pletal] 100 mg PO BID Metoprolol Succinate (ER) [Toprol XL] 25 mg PO DAILY #60 tab Folic Acid 1 mg PO DAILY tab Levothyroxine Sodium [Synthroid] 25 mcg PO DAILY Insulin Glargine,Hum.rec.anlog [Lantus Solostar Pen] 25 units SQ HS #5 each Isosorbide Mononitrate ER [Imdur] 30 mg PO DAILY Linagliptin [Tradjenta] 5 mg PO DAILY #30 tab INSULIN LISPRO (HumaLOG) [humaLOG] See Protocol SQ AC-TID PRN PRN Reason: Blood Sugar - High Acetaminophen Tab [Tylenol] 650 mg PO Q6HR PRN tab PRN Reason: Mild To Moderate Pain (1 - 6) Cyanocobalamin [Vitamin B-12] 1,000 mcg PO TID Discontinued Losartan [Cozaar] 50 mg PO DAILY #60 tab Midodrine [ProAmatine] 5 mg PO AC-TID #90 tab Ciprofloxacin HCl [Cipro] 500 mg PO DIRECTED Discharge Medication List Venlafaxine HCl [Effexor XR] 225 mg PO DAILY 10/21/16 [History] Pantoprazole Sodium [Protonix] 40 mg PO BID 04/06/20 [History] Aspirin EC [Ecotrin Low Dose] 81 mg PO DAILY 10/03/22 [History] Isosorbide Mononitrate ER [Imdur] 30 mg PO DAILY 04/10/23 [History] Mirtazapine 7.5 mg PO HS 04/10/23 [History] cilostazoL [Pletal] 100 mg PO BID 08/02/23 [History] Metoprolol Succinate (ER) [Toprol XL] 25 mg PO DAILY #60 tab 08/05/23 [Rx] Linagliptin [Tradjenta] 5 mg PO DAILY #30 tab 09/05/23 [Rx] INSULIN LISPRO (HumaLOG) [humaLOG] See Protocol SQ AC-TID PRN 02/12/24 [History] Acetaminophen Tab [Tylenol] 650 mg PO Q6HR PRN tab 02/18/24 [Rx] Folic Acid 1 mg PO DAILY tab 02/18/24 [Rx] Cyanocobalamin [Vitamin B-12] 1,000 mcg PO TID 03/26/24 [History] Levothyroxine Sodium [Synthroid] 25 mcg PO DAILY 03/29/24 [History] Amoxic-Pot Clav 875-125Mg [Augmentin 875-125] 1 tab PO Q12HR 7 Days #14 tab 04/13/24 [Rx] Fluconazole [Diflucan] 150 mg PO ONCE #1 tab 04/13/24 [Rx] Insulin Glargine,Hum.rec.anlog [Lantus Solostar Pen] 25 units SQ HS #5 each 04/13/24 [Rx] Nystatin 100,000 Unit/gm Powd [Mycostatin Powder] 1 applic TOPICAL TID 7 Days #30 gm 04/13/24 [Rx] Follow up Appointment(s)/Referral(s): Ernie Cade DDS [STAFF PHYSICIAN] - 05/03/24 9:45 am (Oral Surgeon Take picture ID, insurance card, list of medications and allergy list. Must arrive 30 mins early to complete paperwork. ) Loretta Parada MD [STAFF PHYSICIAN] - 04/21/24 3:00 pm (New general practitioner, must take picture ID and insurance cards to appointment. appointment with Richelle POWELL ) Ambulatory/Diagnostic Orders: Basic Metabolic Panel [LAB.AMB] Location: None Selected Complete Blood Count w/diff [LAB.AMB] Time Frame: 3 Days, Location: None Selected Activity/Diet/Wound Care/Special Instructions: continue oral augmentin for 7 days and need to follow up with oral surgeon information has been provided. Continue to monitor blood glucose and keep log for follow up with PCP. Nystatin powder twice a day to the groin Discharge Disposition: HOME SELF-CARE
== END 2024-04-13 17:50 | disposition home or self-care (01) | DRG 420 ==
LOC: EC 05:08 → 2SICU 07:07 → 5NMEDONC 04-12 07:50
PROVIDERS: ADMIT Internal Medicine; ATTEND Internal Medicine
PROC: 05HD33Z Insertion of Infusion Device into Right Cephalic Vein, Percutaneous Approach (ICD-10-PCS; principal; 2024-04-12 17:25)
DX: E10.10 Type 1 diabetes mellitus with ketoacidosis without coma (principal); G93.41 Metabolic encephalopathy; N17.9 Acute kidney failure, unspecified; E10.42 Type 1 diabetes mellitus with diabetic polyneuropathy; E10.43 Type 1 diabetes mellitus with diabetic autonomic (poly)neuropathy; E10.51 Type 1 diabetes mellitus with diabetic peripheral angiopathy without gangrene; I11.0 Hypertensive heart disease with heart failure; I50.22 Chronic systolic (congestive) heart failure; J44.9 Chronic obstructive pulmonary disease, unspecified; M06.9 Rheumatoid arthritis, unspecified; I70.201 Unspecified atherosclerosis of native arteries of extremities, right leg; Z79.4 Long term (current) use of insulin; E87.0 Hyperosmolality and hypernatremia; I95.89 Other hypotension; F32.A Depression, unspecified; E03.9 Hypothyroidism, unspecified; D53.9 Nutritional anemia, unspecified; G25.81 Restless legs syndrome; E78.5 Hyperlipidemia, unspecified; I25.10 Atherosclerotic heart disease of native coronary artery without angina pectoris; K31.84 Gastroparesis; G89.29 Other chronic pain; E86.1 Hypovolemia; R68.0 Hypothermia, not associated with low environmental temperature; Z79.02 Long term (current) use of antithrombotics/antiplatelets; Z79.84 Long term (current) use of oral hypoglycemic drugs; Z79.890 Hormone replacement therapy; Z91.198 Patient's noncompliance with other medical treatment and regimen for other reason; Z79.82 Long term (current) use of aspirin; Z85.528 Personal history of other malignant neoplasm of kidney; Z86.73 Personal history of transient ischemic attack (TIA), and cerebral infarction without residual deficits; Z87.891 Personal history of nicotine dependence; Z90.5 Acquired absence of kidney; Z95.5 Presence of coronary angioplasty implant and graft; Z86.718 Personal history of other venous thrombosis and embolism; I25.2 Old myocardial infarction; Z86.14 Personal history of Methicillin resistant Staphylococcus aureus infection; Z86.19 Personal history of other infectious and parasitic diseases; Z79.899 Other long term (current) drug therapy
CPT/HCPCS: 36410; 36415; 70450; 71045; 76937; 80048; 80051; 80053; 80143; 80306; 80320; 81001; 81003; 82009; 82140; 82565; 82803; 82947; 83605; 84100; 84439; 84443; 84484; 84520; 85025; 85027; 85610; 85730; 87040; 87086; 93005; 96361; 96374; 96375; 99291

== ENCOUNTER 2024-04-24 21:19 | Inpatient (IN) | payer OTHER ==
[2024-04-24 21:23] LABS: Glucose,Whole Blood >600 mg/dL (70-110)
--- NOTE | 2024-04-24 21:56 | ED ---
Altered Mental Status HPI - General Chief Complaint: Altered Mental Status Stated Complaint: AMS Time Seen by Provider: 04/24/24 21:19 Source: EMS Mode of arrival: EMS Limitations: altered mental status - History of Present Illness Initial Comments: First responders were called for person unresponsive. She was last known well approximately 36 hours ago. The patient with history of diabetes and multiple previous admissions for DKA/hyperosmolar. Patient not able to give any history. MD Complaint: altered mental status -: unknown Severity: moderate Context: history of similar presentation, diabetes Treatments Prior to Arrival: oxygen - Related Data Home Medications Medication Instructions Recorded Confirmed Venlafaxine HCl [Effexor XR] 225 mg PO DAILY 10/21/16 04/25/24 Pantoprazole Sodium [Protonix] 40 mg PO BID 04/06/20 04/25/24 Aspirin EC [Ecotrin Low Dose] 81 mg PO DAILY 10/03/22 04/25/24 Isosorbide Mononitrate ER [Imdur] 30 mg PO DAILY 04/10/23 04/25/24 Mirtazapine 7.5 mg PO HS 04/10/23 04/25/24 cilostazoL [Pletal] 100 mg PO BID 08/02/23 04/25/24 INSULIN LISPRO (HumaLOG) [humaLOG] See Protocol SQ AC-TID PRN 02/12/24 04/25/24 Cyanocobalamin [Vitamin B-12] 1,000 mcg PO TID 03/26/24 04/25/24 Fluconazole [Diflucan] 150 mg PO DIRECTED 04/25/24 04/25/24 Previous Rx's Medication Instructions Recorded Metoprolol Succinate (ER) [Toprol 25 mg PO DAILY #60 tab 08/05/23 XL] Linagliptin [Tradjenta] 5 mg PO DAILY #30 tab 09/05/23 Acetaminophen Tab [Tylenol] 650 mg PO Q6HR PRN tab 02/18/24 Folic Acid 1 mg PO DAILY tab 02/18/24 Nystatin 100,000 Unit/gm Powd 1 applic TOPICAL TID 7 Days #30 gm 04/13/24 [Mycostatin Powder] Levothyroxine Sodium [Synthroid] 50 mcg PO DAILY #30 tab 04/17/24 Insulin Detemir (Levemir) [Levemir] 5 unit SQ BID each 05/03/24 Allergies Allergy/AdvReac Type Severity Reaction Status Date / Time grass pollen Allergy Unknown Verified 04/09/24 06:36 latex Allergy Rash/Hives Verified 04/09/24 06:36 Sulfa (Sulfonamide Allergy Rash/Hives/ Verified 04/09/24 06:36 Antibiotics) Swelling venom-honey bee Allergy Anaphylaxis Verified 04/09/24 06:36 prochlorperazine edisylate AdvReac Vomiting Verified 04/09/24 06:36 [From Compazine] Review of Systems ROS Statement: Those systems with pertinent positive or pertinent negative responses have been documented in the HPI. ROS Other: All systems not noted in ROS Statement are negative. Limitations: ROS unobtainable due to patients medical condition Past Medical History Past Medical History: Coronary Artery Disease (CAD), Cancer, COPD, CVA/TIA, Diabetes Mellitus, Deep Vein Thrombosis (DVT), Eye Disorder, GERD/Reflux, Hyperlipidemia, Hypertension, Myocardial Infarction (SD), Musculoskeletal Disorder, Neurologic Disorder, Renal Disease, Rheumatoid Arthritis (RA), Sleep Apnea/CPAP/BIPAP, Syncope, Thyroid Disorder Additional Past Medical History / Comment(s): 09/16/16 small bowel obstruction with surgery. Hx left renal cell carcinoma with partial nephrectomy. Hx CVA X4, last 5 yrs ago, no residual effects. Hx DVT left leg 7-8 yrs ago. Hypothyroidism. Chronic back pain, degenerative disc disease, restless leg synd mando, peripheral neuropathy. Hx UTI with sepsis Apr 2016 requiring PICC line insertion for IV antibiotics. Hx bilateral glaucoma. Hx syncope due to low blood sugars. No CPAP use. Migraines. DKA, HHS. Last Myocardial Infarction Date:: 2019 History of Any Multi-Drug Resistant Organisms: ESBL, MRSA, VRE Date of last positivie culture/infection: 05/07/16 ESBL, 05/15/16 VRE, MRSA 09/2017 - upper lip MDRO Source:: URINE E.COLI, EC GALLINARUM Past Surgical History: Appendectomy, Bowel Resection, Section, Heart Catheterization, Heart Catheterization With Stent, Hernia Repair Additional Past Surgical History / Comment(s): Exploratory laparotomy with lysis of adhesions, repair incarcerated incisional hernia with abdominal washout, thyroidectomy, partial left nephrectomy, colonoscopy, bilateral cataract removal with lens implants, Section X2, cardiac stent 04/06/2021. Past Anesthesia/Blood Transfusion Reactions: No Reported Reaction Date of Last Stent Placement:: 04/06/2021 Past Psychological History: Depression Smoking Status: Former smoker Past Alcohol Use History: None Reported Past Drug Use History: Cocaine, Marijuana - Past Family History Sister(s) Family Medical History: Cancer, Deep Vein Thrombosis (DVT) Additional Family Medical History / Comment(s): Patient has one sister that from liver cancer. Brother(s) Family Medical History: Cancer, Deep Vein Thrombosis (DVT) Additional Family Medical History / Comment(s): Patient has 1 brother with past ETOH, past drug abuse, DVTs. She has a second brother that has from throat cancer. Daughter(s) Family Medical History: Diabetes Mellitus, Myocardial Infarction (SD) Additional Family Medical History / Comment(s): Daughter at 23 yrs old from massive SD. Father Family Medical History: Myocardial Infarction (SD) Additional Family Medical History / Comment(s): from SD at age 44. Mother Family Medical History: Cancer Additional Family Medical History / Comment(s): Breast cancer. General Exam Limitations: no limitations General appearance: obtunded Head exam: Present: atraumatic, normocephalic Eye exam: Present: normal appearance, PERRL, EOMI. Absent: scleral icterus, conjunctival injection ENT exam: Present: mucous membranes dry Neck exam: Present: normal inspection, full ROM. Absent: meningismus Respiratory exam: Present: normal lung sounds bilaterally. Absent: respiratory distress, wheezes, rales, rhonchi, stridor, accessory muscle use Cardiovascular Exam: Present: normal rhythm, tachycardia, normal heart sounds. Absent: systolic murmur, diastolic murmur, rubs, gallop GI/Abdominal exam: Present: soft. Absent: distended, tenderness, guarding, rebound, rigid, mass Extremities exam: Present: normal inspection, normal capillary refill. Absent: pedal edema, calf tenderness Back exam: Present: normal inspection. Absent: CVA tenderness (R), CVA tenderness (L) Neurological exam: Present: alert Skin exam: Present: warm, dry, intact, normal color. Absent: rash Course Vital Signs 04/24/24 04/24/24 04/25/24 21:23 23:34 02:23 Temperature 97.4 F L Pulse Rate 111 H 111 H 102 H Respiratory 22 20 19 Rate Blood Pressure 94/53 90/66 93/59 O2 Sat by Pulse 95 95 Oximetry 04/25/24 04/25/24 04/25/24 05:12 10:00 11:00 Temperature Pulse Rate 82 96 75 Respiratory 22 20 20 Rate Blood Pressure 92/53 108/74 104/70 O2 Sat by Pulse 96 98 Oximetry 04/25/24 04/25/24 11:45 12:00 Temperature 97 F L 97.7 F Pulse Rate 75 71 Respiratory 20 14 Rate Blood Pressure 130/70 101/81 O2 Sat by Pulse 98 99 Oximetry Procedures - Central Line Placement Right SC Consent Obtained: emergent situation Patient Placed on Monitor/Pulse Ox: Yes MD Prep: mask, gown, gloves Central Line Prep: Chlorhexidine scrub, sterile drapes applied Local Anesthesia Used: Lidocaine 1% Ultrasound Used for Placement: No Central Line Lumen Inserted: triple Central Line Position: good blood return, all ports aspirated, flushed, capped, sutured in place with 2-0 silk Dressing Applied: Tegaderm Post Procedure X-Ray: tip of catheter in good position Patient Tolerated Procedure: well, no complications Complications: none Medical Decision Making - Medical Decision Making Patient is a 64-year-old woman with history of diabetes and multiple previous presentations with DKA who does appear to be in another episode of DKA. Patient is brought directly to the trauma resuscitation room where nursing was not able to draw blood or start an IV. Therefore I did place a right subclavian central line without complication. The patient has started on fluid and insulin therapy. The patient had chest x-ray that I interpreted as negative for acute infiltrate, pneumothorax, congestive heart failure The patient had CT scan of the brain that I interpreted as negative for acute bony injury, negative for acute intracranial hemorrhage or mass effect Was pt. sent in by a medical professional or institution (, PA, SUPERVISOR INSECTICIDE, urgent care, hospital, or half-way...) When possible be specific @ -[No] Did you speak to anyone other than the patient for history (EMS, parent, family, police, friend...)? What history was obtained from this source @ -[EMS gave most of the history Did you review nursing and triage notes (agree or disagree)? Why? @ -[I reviewed and agree with nursing and triage notes] Were old charts reviewed (outside hosp., previous admission, EMS record, old EKG, old radiological studies, urgent care reports/EKG's, half-way records)? Report findings @ -[Yes old charts were reviewed] Differential Diagnosis (chest pain, altered mental status, abdominal pain women, abdominal pain men, vaginal bleeding, weakness, fever, dyspnea, syncope, headache, dizziness, GI bleed, back pain, seizure, CVA, palpatations, mental health, musculoskeletal)? @ -[Differential Altered Mental Status: Hypoglycemia, DKA, hypercapnia, ETOH, overdose, CO poisoning, trauma, myxedema coma, HTN encephalopathy, infection, encephalitis, psychosis, intercranial hemorrhage, hepatic encephalopathy, meningitis, CVA, this is not meant to be an all-inclusive list EKG interpreted by me (3pts min.). @ -[I interpreted as above] X-rays interpreted by me (1pt min.). @ -[I interpreted as above CT interpreted by me (1pt min.). @ -[I interpreted as above U/S interpreted by me (1pt. min.). @ -[None done] What testing was considered but not performed or refused? (CT, X-rays, U/S, labs)? Why? @ -[None] What meds were considered but not given or refused? Why? @ -[None] Did you discuss the management of the patient with other professionals (professionals i.e. , PA, SUPERVISOR IN[employer]IC[employer], lab, RT, psych nurse, social and political studies professor, commercial installer, teacher, property utilization officer, case manager specialist)? Give summary @ -[Case discussed with admitting physician and also with the intensivists and their treatment recommendations are incorporated Was smoking cessation discussed for >3mins.? @ -[No] Was critical care preformed (if so, how long)? @ -35 minutes Were there social determinants of health that impacted care today? How? (Homelessness, low income, unemployed, alcoholism, drug addiction, transportation, low edu. Level, literacy, decrease access to med. care, [facility], r ehab)? @ -[No] Was there de-escalation of care discussed even if they declined (Discuss DNR or withdrawal of care, Hospice)? DNR status @ -[No] What co-morbidities impacted this encounter? (DM, HTN, Smoking, COPD, CAD, Cancer, CVA, ARF, Chemo, Hep., AIDS, mental health diagnosis, sleep apnea, morb id obesity)? @ -[Diabetes Was patient admitted / discharged? Hospital course, mention meds given and route, prescriptions, significant lab abnormalities, going to OR and other pertinent info. @ -[Patient is a 64-year-old woman here with altered mental status and found to be in DKA. The patient had poor peripheral access I therefore placed a central venous line under emergent consent, see the procedure note. The patient then started on insulin and fluids. Patient is admitted for further evaluation and treatment Undiagnosed new problem with uncertain prognosis? @ -[No] Drug Therapy requiring intensive monitoring for toxicity (Heparin, Nitro, Insulin, Cardizem)? @ -[No] Were any procedures done? @ -[No] Diagnosis/symptom? @ -[Acute diabetic ketoacidosis Acute, or Chronic, or Acute on Chronic? @ -[Acute Uncomplicated (without systemic symptoms) or Complicated (systemic symptoms)? @ -[complicated by mental status changes Side effects of treatment? @ -[No] Exacerbation, Progression, or Severe Exacerbation? @ -[No] Poses a threat to life or bodily function? How? (Chest pain, USA, SD, pneumonia, PE, COPD, DKA, ARF, appy, cholecystitis, CVA, Diverticulitis, Homicidal, Suicidal, threat to staff... and all critical care pts) @ -[Yes - Lab Data Result diagrams: 04/30/24 05:50 04/30/24 05:50 Lab Results 04/24/24 04/24/24 04/24/24 Range/Units 21:22 23:00 23:00 WBC 11.9 H (3.8-10.6) k/uL RBC 3.18 L (3.80-5.40) m/uL Hgb 9.3 L (11.4-16.0) gm/dL Hct 34.3 (34.0-46.0) % MCV 107.9 H D (80.0-100.0) fL MCH 29.4 (25.0-35.0) pg MCHC 27.3 L (31.0-37.0) g/dL RDW 15.6 H (11.5-15.5) % Plt Count 429 (150-450) k/uL MPV 9.4 Neutrophils % 90 % Lymphocytes % 6 % Monocytes % 3 % Eosinophils % 0 % Basophils % 0 % Neutrophils # 10.7 H (1.3-7.7) k/uL Lymphocytes # 0.7 L (1.0-4.8) k/uL Monocytes # 0.3 (0-1.0) k/uL Eosinophils # 0.0 (0-0.7) k/uL Basophils # 0.0 (0-0.2) k/uL Manual Slide Review Performed Hypochromasia Marked Macrocytosis Marked A PT 10.4 (10.0-12.5) sec INR 0.9 (<1.2) APTT 22.2 (22.0-30.0) sec VBG pH (7.31-7.41) VBG pCO2 (37-51) mmHg VBG HCO3 (24-28) mmol/L Sodium (137-145) mmol/L Potassium (3.5-5.1) mmol/L Chloride (98-107) mmol/L Carbon Dioxide (22-30) mmol/L Anion Gap mmol/L BUN (7-17) mg/dL Creatinine (0.52-1.04) mg/dL Est GFR (CKD-EPI)AfAm (>60 ml/min/1.73 sqM) Est GFR (CKD-EPI)NonAf (>60 ml/min/1.73 sqM) Glucose (74-99) mg/dL POC Glucose (mg/dL) >600 H* (70-110) mg/dL POC Glu Fire Dispatcher ID Luisa Hemant Calcium (8.4-10.2) mg/dL Total Bilirubin (0.2-1.3) mg/dL AST (14-36) U/L ALT (4-34) U/L Alkaline Phosphatase (38-126) U/L Troponin I (0.000-0.034) ng/mL Total Protein (6.3-8.2) g/dL Albumin (3.5-5.0) g/dL Urine Color Urine Appearance (Clear) Urine pH (5.0-8.0) Ur Specific [place] (1.001-1.035) Urine Protein (Negative) Urine Glucose (UA) (Negative) Urine Ketones (Negative) Urine Blood (Negative) Urine Nitrite (Negative) Urine Bilirubin (Negative) Urine Urobilinogen (<2.0) mg/dL Ur Leukocyte Esterase (Negative) Urine Opiates Screen (NotDetected) Ur Oxycodone Screen (NotDetected) Urine Methadone Screen (NotDetected) Ur Barbiturates Screen (NotDetected) U Tricyclic Antidepress (NotDetected) Ur Phencyclidine Scrn (NotDetected) Ur Amphetamines Screen (NotDetected) U Methamphetamines Scrn (NotDetected) U Benzodiazepines Scrn (NotDetected) Urine Cocaine Screen (NotDetected) U Marijuana (THC) Screen (NotDetected) Serum Alcohol mg/dL Acetone, Qual (Negative) 04/24/24 04/24/24 04/24/24 Range/Units 23:00 23:00 23:37 WBC (3.8-10.6) k/uL RBC (3.80-5.40) m/uL Hgb (11.4-16.0) gm/dL Hct (34.0-46.0) % MCV (80.0-100.0) fL MCH (25.0-35.0) pg MCHC (31.0-37.0) g/dL RDW (11.5-15.5) % Plt Count (150-450) k/uL MPV Neutrophils % % Lymphocytes % % Monocytes % % Eosinophils % % Basophils % % Neutrophils # (1.3-7.7) k/uL Lymphocytes # (1.0-4.8) k/uL Monocytes # (0-1.0) k/uL Eosinophils # (0-0.7) k/uL Basophils # (0-0.2) k/uL Manual Slide Review Hypochromasia Macrocytosis PT (10.0-12.5) sec INR (<1.2) APTT (22.0-30.0) sec VBG pH (7.31-7.41) VBG pCO2 (37-51) mmHg VBG HCO3 (24-28) mmol/L Sodium 142 (137-145) mmol/L Potassium 4.7 (3.5-5.1) mmol/L Chloride 94 L (98-107) mmol/L Carbon Dioxide <5 L* (22-30) mmol/L Anion Gap mmol/L BUN 45 H (7-17) mg/dL Creatinine 1.93 H (0.52-1.04) mg/dL Est GFR (CKD-EPI)AfAm 31 (>60 ml/min/1.73 sqM) Est GFR (CKD-EPI)NonAf 27 (>60 ml/min/1.73 sqM) Glucose 1206 H* (74-99) mg/dL POC Glucose (mg/dL) (70-110) mg/dL POC Glu Fire Dispatcher ID Calcium 8.9 (8.4-10.2) mg/dL Total Bilirubin 0.5 (0.2-1.3) mg/dL AST 15 (14-36) U/L ALT 10 (4-34) U/L Alkaline Phosphatase 173 H (38-126) U/L Troponin I <0.012 (0.000-0.034) ng/mL Total Protein 6.1 L (6.3-8.2) g/dL Albumin 3.9 (3.5-5.0) g/dL Urine Color Urine Appearance (Clear) Urine pH (5.0-8.0) Ur Specific [place] (1.001-1.035) Urine Protein (Negative) Urine Glucose (UA) (Negative) Urine Ketones (Negative) Urine Blood (Negative) Urine Nitrite (Negative) Urine Bilirubin (Negative) Urine Urobilinogen (<2.0) mg/dL Ur Leukocyte Esterase (Negative) Urine Opiates Screen Not Detected (NotDetected) Ur Oxycodone Screen Not Detected (NotDetected) Urine Methadone Screen Not Detected (NotDetected) Ur Barbiturates Screen Not Detected (NotDetected) U Tricyclic Antidepress Not Detected (NotDetected) Ur Phencyclidine Scrn Not Detected (NotDetected) Ur Amphetamines Screen Not Detected (NotDetected) U Methamphetamines Scrn Not Detected (NotDetected) U Benzodiazepines Scrn Not Detected (NotDetected) Urine Cocaine Screen Not Detected (NotDetected) U Marijuana (THC) Screen Not Detected (NotDetected) Serum Alcohol <10 mg/dL Acetone, Qual Positive (Negative) 04/24/24 04/24/24 Range/Units 23:37 23:43 WBC (3.8-10.6) k/uL RBC (3.80-5.40) m/uL Hgb (11.4-16.0) gm/dL Hct (34.0-46.0) % MCV (80.0-100.0) fL MCH (25.0-35.0) pg MCHC (31.0-37.0) g/dL RDW (11.5-15.5) % Plt Count (150-450) k/uL MPV Neutrophils % % Lymphocytes % % Monocytes % % Eosinophils % % Basophils % % Neutrophils # (1.3-7.7) k/uL Lymphocytes # (1.0-4.8) k/uL Monocytes # (0-1.0) k/uL Eosinophils # (0-0.7) k/uL Basophils # (0-0.2) k/uL Manual Slide Review Hypochromasia Macrocytosis PT (10.0-12.5) sec INR (<1.2) APTT (22.0-30.0) sec VBG pH 7.15 L* (7.31-7.41) VBG pCO2 20 L (37-51) mmHg VBG HCO3 7 L* (24-28) mmol/L Sodium (137-145) mmol/L Potassium (3.5-5.1) mmol/L Chloride (98-107) mmol/L Carbon Dioxide (22-30) mmol/L Anion Gap mmol/L BUN (7-17) mg/dL Creatinine (0.52-1.04) mg/dL Est GFR (CKD-EPI)AfAm (>60 ml/min/1.73 sqM) Est GFR (CKD-EPI)NonAf (>60 ml/min/1.73 sqM) Glucose (74-99) mg/dL POC Glucose (mg/dL) (70-110) mg/dL POC Glu Fire Dispatcher ID Calcium (8.4-10.2) mg/dL Total Bilirubin (0.2-1.3) mg/dL AST (14-36) U/L ALT (4-34) U/L Alkaline Phosphatase (38-126) U/L Troponin I (0.000-0.034) ng/mL Total Protein (6.3-8.2) g/dL Albumin (3.5-5.0) g/dL Urine Color Colorless Urine Appearance Clear (Clear) Urine pH 5.0 (5.0-8.0) Ur Specific [place] 1.022 (1.001-1.035) Urine Protein Negative (Negative) Urine Glucose (UA) 4+ H (Negative) Urine Ketones 2+ H (Negative) Urine Blood Negative (Negative) Urine Nitrite Negative (Negative) Urine Bilirubin Negative (Negative) Urine Urobilinogen <2.0 (<2.0) mg/dL Ur Leukocyte Esterase Negative (Negative) Urine Opiates Screen (NotDetected) Ur Oxycodone Screen (NotDetected) Urine Methadone Screen (NotDetected) Ur Barbiturates Screen (NotDetected) U Tricyclic Antidepress (NotDetected) Ur Phencyclidine Scrn (NotDetected) Ur Amphetamines Screen (NotDetected) U Methamphetamines Scrn (NotDetected) U Benzodiazepines Scrn (NotDetected) Urine Cocaine Screen (NotDetected) U Marijuana (THC) Screen (NotDetected) Serum Alcohol mg/dL Acetone, Qual (Negative) - EKG Data -: EKG Interpreted by Tn EKG shows normal: sinus rhythm, axis (Normal), intervals (Normal) Rate: tachycardia (Rate 112 bpm) Interpretation: LVH, other (Possible old septal infarct.) Disposition Clinical Impression: DKA (diabetic ketoacidoses), Altered mental status, Anemia Disposition: ADMITTED IP TO THIS HOSP Condition: Good Is patient prescribed a controlled substance at d/c from ED?: No
[2024-04-24 23:23] LABS: ALT 10 U/L (4-34); AST 15 U/L (14-36); African American GFR (CKD) 31 (>60 ml/min/1.73 sqM); Albumin 3.9 g/dL (3.5-5.0); Alcohol <10 mg/dL; Alkaline Phosphatase 173 U/L (38-126); Blood Urea Nitrogen 45 mg/dL (7-17); Calcium 8.9 mg/dL (8.4-10.2); Chloride 94 mmol/L (98-107); Non-African American GFR(CKD) 27 (>60 ml/min/1.73 sqM); Potassium 4.7 mmol/L (3.5-5.1); Sodium 142 mmol/L (137-145); Total Bilirubin 0.5 mg/dL (0.2-1.3); Total Protein 6.1 g/dL (6.3-8.2)
[2024-04-24] MEDS: SODIUM CHLORIDE 0.9% 1,000 ML IV STA (23:23)
[2024-04-24] MEDS: SODIUM CHLORIDE 0.9% 1,000 ML IV ONE (23:25)
[2024-04-24] MEDS: INSULIN REGULAR 100 UNIT/ML VIAL (IV) IV STA (23:27)
[2024-04-24 23:30] LABS: INR 0.9 (<1.2); Partial Thromboplastin Time 22.2 sec (22.0-30.0); Prothrombin Time 10.4 sec (10.0-12.5)
[2024-04-24 23:33] LABS: Carbon Dioxide <5 mmol/L (22-30); Glucose 1206 mg/dL (74-99)
[2024-04-24] MEDS ORDERED: Magnesium Replacement Protocol 1 EACH MISC MISCELLANE PRN (23:34)
[2024-04-24] MEDS ORDERED: DEXTROSE 50% SYRINGE 50 ML IVP PRN (23:34)
[2024-04-24] MEDS ORDERED: Potassium Replacement Protocol 1 EACH MISC MISCELLANE PRN (23:34)
[2024-04-24 23:40] LABS: Basophils % (A) 0 %; Eosinophils % (A) 0 %; HCT 34.3 % (34.0-46.0); HGB 9.3 gm/dL (11.4-16.0); Hypochromasia Marked; Lymphocytes # (A) 0.7 k/uL (1.0-4.8); Lymphocytes % (A) 6 %; MCH 29.4 pg (25.0-35.0); MCHC 27.3 g/dL (31.0-37.0); Macrocytosis Marked; Mean Platelet Volume 9.4; Monocytes # (A) 0.3 k/uL (0-1.0); Monocytes % (A) 3 %; Neutrophils # (A) 10.7 k/uL (1.3-7.7); Neutrophils % (A) 90 %; Platelet Count 429 k/uL (150-450); RBC 3.18 m/uL (3.80-5.40); RDW 15.6 % (11.5-15.5); WBC 11.9 k/uL (3.8-10.6)
--- NOTE | 2024-04-24 23:42 | CT ---
EXAM: CT Head Without Intravenous Contrast CLINICAL HISTORY: ITS.REASON CT Reason: altered mental status TECHNIQUE: Axial computed tomography images of the head/brain without intravenous contrast. CTDI is 47.2 mGy and DLP is 1122.4 mGy-cm. This CT exam was performed using one or more of the following dose reduction techniques: automated exposure control, adjustment of the mA and/or kV according to patient size, and/or use of iterative reconstruction technique. COMPARISON: No relevant prior studies available. FINDINGS: Brain: Age-related cerebral volume loss. Periventricular and subcortical white matter hypoattenuation, consistent with chronic microangiopathy. Encephalomalacia in the bilateral occipital lobes, consistent with old infarcts. No acute intracranial hemorrhage. No midline shift or mass effect. Ventricles: Unremarkable. No ventriculomegaly. Bones/joints: Unremarkable. No acute fracture. Soft tissues: Unremarkable. Sinuses: Opacified LEFT maxillary sinus. Mastoid air cells: Unremarkable as visualized. No mastoid effusion. IMPRESSION: 1. No acute intracranial hemorrhage. No midline shift or mass effect. 2. Encephalomalacia in the bilateral occipital lobes, consistent with old infarcts.
[2024-04-24] MEDS: SODIUM CHLORIDE 0.9% 1,000 ML IV SCH (23:44)
[2024-04-24 23:49] LABS: MCV 107.9 fL (80.0-100.0)
[2024-04-24 23:53] LABS: Appearance,Urine Clear (Clear); Bilirubin,Urine Negative (Negative); Blood,Urine Negative (Negative); Color,Urine Colorless; Glucose,Urine (UA) 4+ (Negative); Leukocyte Esterase,Urine Negative (Negative); Nitrite,Urine Negative (Negative); Protein,Urine Negative (Negative); Specific Gravity,Urine 1.022 (1.001-1.035); Urobilinogen,Urine <2.0 mg/dL (<2.0)
[2024-04-24 23:53] LABS: VBG PH 7.15 (7.31-7.41)
[2024-04-25] MEDS: INSULIN REGULAR 100 UNIT in SODIUM CHLORIDE 0.9% 100 ML IV SCH (00:01)
[2024-04-25 00:04] LABS: Ketones,Urine 2+ (Negative)
--- NOTE | 2024-04-25 00:35 | XR ---
EXAM: XR Chest, 1 View CLINICAL HISTORY: ITS.REASON XR Reason: altered mental status TECHNIQUE: Frontal view of the chest. COMPARISON: 04/09/2024. FINDINGS: Lungs: A 1 cm calcified granuloma near the left lung base is again noted. No consolidative changes or pleural effusions. Pleural space: See above. Heart: Heart is top normal in size. No cardiomegaly. Mediastinum: Unremarkable. Normal mediastinal contour. Bones/joints: Osseous structures and soft tissues are unremarkable. No acute fracture. Vasculature: Atherosclerotic disease. Tubes, lines and devices: Right subclavian catheter is noted in place with its tip at the mid superior vena cava. IMPRESSION: 1. Calcified granulomata at left lung base. 2. Atherosclerotic disease. 3. No consolidative changes or pleural effusions.
[2024-04-25 00:46] LABS: Amphetamine Screen,Urine Not Detected (NotDetected); Benzodiazepines Screen,Urine Not Detected (NotDetected); Cocaine Screen,Urine Not Detected (NotDetected); Opiate Screen,Urine Not Detected (NotDetected); Phencyclidine Screen,Urine Not Detected (NotDetected); Urn Cannabinoid Scrn Not Detected (NotDetected)
[2024-04-25 00:47] LABS: Barbiturate Screen,Urine Not Detected (NotDetected); Methadone Screen, Urine Not Detected (NotDetected); Oxycodone Screen, Urine Not Detected (NotDetected); Tricyclic Antidepressant,Urine Not Detected (NotDetected)
[2024-04-25 00:58] LABS: Glucose,Whole Blood >600 mg/dL (70-110)
[2024-04-25 01:53] LABS: Glucose,Whole Blood >600 mg/dL (70-110)
[2024-04-25 02:56] LABS: Glucose,Whole Blood >600 mg/dL (70-110)
[2024-04-25 03:04] LABS: African American GFR (CKD) 37 (>60 ml/min/1.73 sqM); Anion Gap 27 mmol/L; Blood Urea Nitrogen 46 mg/dL (7-17); Carbon Dioxide 13 mmol/L (22-30); Chloride 107 mmol/L (98-107); Non-African American GFR(CKD) 32 (>60 ml/min/1.73 sqM); Phosphorus 4.5 mg/dL (2.5-4.5); Potassium 3.6 mmol/L (3.5-5.1); Sodium 147 mmol/L (137-145)
[2024-04-25 03:28] LABS: Glucose 684 mg/dL (74-99)
[2024-04-25 04:03] LABS: Glucose,Whole Blood >600 mg/dL (70-110)
[2024-04-25 04:59] LABS: Glucose,Whole Blood >600 mg/dL (70-110)
[2024-04-25 06:05] LABS: Glucose,Whole Blood 448 mg/dL (70-110)
[2024-04-25 07:07] LABS: Glucose,Whole Blood 402 mg/dL (70-110)
[2024-04-25] MEDS ORDERED: LINAGLIPTIN 5 MG TABLET PO SCH (09:00)
[2024-04-25 09:30] LABS: Glucose,Whole Blood 138 mg/dL (70-110)
[2024-04-25] MEDS: LEVOTHYROXINE 50 MCG TAB PO SCH (09:31)
[2024-04-25] MEDS: CYANOCOBALAMIN 500 MCG TAB PO SCH (09:32)
[2024-04-25] MEDS: PANTOPRAZOLE 40 MG TABLET PO SCH (09:44)
[2024-04-25] MEDS: METOPROLOL SUCCINATE (ER) 25 MG TAB.ER.24H PO SCH (09:44)
[2024-04-25] MEDS: ASPIRIN 81 MG PO SCH (09:44)
[2024-04-25] MEDS: FOLIC ACID 1 MG TAB PO SCH (09:44)
[2024-04-25] MEDS: ISOSORBIDE MONONITRATE ER 30 MG TAB.ER.24H PO SCH (09:44)
[2024-04-25] MEDS: VENLAFAXINE HCL ER 75 MG CAP PO SCH (09:46)
[2024-04-25] MEDS: D5-0.45% NACL WITH KCL 20MEQ/L 1,000 ML IV SCH (09:52)
[2024-04-25] MEDS: cilostazoL 100 MG TAB PO SCH (10:18)
[2024-04-25 10:27] LABS: Glucose,Whole Blood 139 mg/dL (70-110)
[2024-04-25 11:25] LABS: Glucose,Whole Blood 166 mg/dL (70-110)
--- NOTE | 2024-04-25 12:00 | P.CNPUL ---
History of Present Illness Consult date: 04/25/24 Chief complaint: DKA History of present illness: This is a 64-year-old female patient, diabetic with poor compliance, comes in for another episode of DKA. She is altered and encephalopathic in the emergency department. She her blood sugars were above 600. Serum bicarb is less than 5, anion gap was more than 30. Sodium level is 142. WBC count 11.9 hemoglobin of 9.3 and a creatinine of 1.9. Noted she has had previous episodes of DKA, the patient was in the hospital March 2024 and she was hospitalized twice on that month for complications related to DKA. In the emergency, the patient was given 2 L of IV fluids. She currently she is on insulin drip running at 2.5 units an hour. Blood sugar is down to 138 and the patient will be switched to D5 half- normal saline. Subsequent blood work shows a gap of 27 and a serum bicarb of 13 . Sodium levels at 147. She is on room air oxygen. Chest x-ray shows no acute abnormalities. CAT scan of the brain also done and shows no acute intracardiac intracranial abnormalities. There is encephalomalacia in bilateral occipital lobes consistent with old infarcts. Noted, the patient is supposed to be on Lantus insulin 25 units daily in addition to Tradjenta on outpatient basis. She has had previous episodes of UTI with Klebsiella pneumoniae on 03/30/2024, treated and a repeat UA is negative for any infection. Urine drug screen is negative. Alcohol level is less than 10. Review of Systems ROS unobtainable: due to mental status Past Medical History Past Medical History: Coronary Artery Disease (CAD), Cancer, COPD, CVA/TIA, Diabetes Mellitus, Deep Vein Thrombosis (DVT), Eye Disorder, GERD/Reflux, H yperlipidemia, Hypertension, Myocardial Infarction (AR), Musculoskeletal Disorder, Neurologic Disorder, Renal Disease, Rheumatoid Arthritis (RA), Sleep Apnea/CPAP/BIPAP, Syncope, Thyroid Disorder Additional Past Medical History / Comment(s): 09/16/16 small bowel obstruction wi th surgery. Hx left renal cell carcinoma with partial nephrectomy. Hx CVA X4, last 5 yrs ago, no residual effects. Hx DVT left leg 7-8 yrs ago. Hypothyroidism. Chronic back pain, degenerative disc disease, restless leg syndrome, peripheral neuropathy. Hx UTI with sepsis Apr 2016 requiring PICC line insertion for IV antibiotics. Hx bilateral glaucoma. Hx syncope due to low blood sugars. No CPAP use. Migraines. DKA, HHS. Last Myocardial Infarction Date:: 2019 History of Any Multi-Drug Resistant Organisms: ESBL, MRSA, VRE Date of last positivie culture/infection: 05/07/16 ESBL, 05/15/16 VRE, MRSA 09/2017 - upper lip MDRO Source:: URINE E.COLI, EC GALLINARUM Past Surgical History: Appendectomy, Bowel Resection, Section, Heart Catheterization, Heart Catheterization With Stent, Hernia Repair Additional Past Surgical History / Comment(s): Exploratory laparotomy with lysis of adhesions, repair incarcerated incisional hernia with abdominal washout, thyroidectomy, partial left nephrectomy, colonoscopy, bilateral cataract removal with lens implants, Section X2, cardiac stent 04/06/2021. Past Anesthesia/Blood Transfusion Reactions: No Reported Reaction Date of Last Stent Placement:: 04/06/2021 Past Psychological History: Depression Smoking Status: Former smoker Past Alcohol Use History: None Reported Past Drug Use History: Cocaine, Marijuana - Past Family History Sister(s) Family Medical History: Cancer, Deep Vein Thrombosis (DVT) Additional Family Medical History / Comment(s): Patient has one sister that from liver cancer. Brother(s) Family Medical History: Cancer, Deep Vein Thrombosis (DVT) Additional Family Medical History / Comment(s): Patient has 1 brother with past ETOH, past drug abuse, DVTs. She has a second brother that has from throat cancer. Daughter(s) Family Medical History: Diabetes Mellitus, Myocardial Infarction (AR) Additional Family Medical History / Comment(s): Daughter at 23 yrs old from massive AR. Father Family Medical History: Myocardial Infarction (AR) Additional Family Medical History / Comment(s): from AR at age 44. Mother Family Medical History: Cancer Additional Family Medical History / Comment(s): Breast cancer. Medications and Allergies Home Medications Medication Instructions Recorded Confirmed Type Venlafaxine HCl [Effexor XR] 225 mg PO DAILY 10/21/16 04/25/24 History Pantoprazole Sodium [Protonix] 40 mg PO BID 04/06/20 04/25/24 History Aspirin EC [Ecotrin Low Dose] 81 mg PO DAILY 10/03/22 04/25/24 History Isosorbide Mononitrate ER [Imdur] 30 mg PO DAILY 04/10/23 04/25/24 History Mirtazapine 7.5 mg PO HS 04/10/23 04/25/24 History cilostazoL [Pletal] 100 mg PO BID 08/02/23 04/25/24 History Metoprolol Succinate (ER) [Toprol 25 mg PO DAILY #60 tab 08/05/23 04/25/24 Rx XL] Linagliptin [Tradjenta] 5 mg PO DAILY #30 tab 09/05/23 04/25/24 Rx INSULIN LISPRO (HumaLOG) [humaLOG] See Protocol SQ AC-TID PRN 02/12/24 04/25/24 History Acetaminophen Tab [Tylenol] 650 mg PO Q6HR PRN tab 02/18/24 04/25/24 Rx Folic Acid 1 mg PO DAILY tab 02/18/24 04/25/24 Rx Cyanocobalamin [Vitamin B-12] 1,000 mcg PO TID 03/26/24 04/25/24 History Insulin Glargine,Hum.rec.anlog 25 units SQ HS #5 each 04/13/24 04/25/24 Rx [Lantus Solostar Pen] Nystatin 100,000 Unit/gm Powd 1 applic TOPICAL TID 7 Days #30 gm 04/13/24 Rx [Mycostatin Powder] Levothyroxine Sodium [Synthroid] 50 mcg PO DAILY #30 tab 04/17/24 04/25/24 Rx Amoxic-Pot Clav 875-125Mg 1 tab PO DIRECTED 04/25/24 04/25/24 History [Augmentin 875-125] Fluconazole [Diflucan] 150 mg PO DIRECTED 04/25/24 04/25/24 History Allergies Allergy/AdvReac Type Severity Reaction Status Date / Time grass pollen Allergy Unknown Verified 04/09/24 06:36 latex Allergy Rash/Hives Verified 04/09/24 06:36 Sulfa (Sulfonamide Allergy Rash/Hives/ Verified 04/09/24 06:36 Antibiotics) Swelling venom-honey bee Allergy Anaphylaxis Verified 04/09/24 06:36 prochlorperazine edisylate AdvReac Vomiting Verified 04/09/24 06:36 [From Compazine] Physical Exam Vitals: Vital Signs Temp Pulse Resp BP Pulse Ox 04/25/24 05:12 82 22 92/53 04/25/24 02:23 102 H 19 93/59 95 04/24/24 23:34 111 H 20 90/66 95 04/24/24 21:23 97.4 F L 111 H 22 94/53 Intake and Output 04/24/24 04/25/24 04/25/24 22:59 06:59 14:59 Intake Total 15.201 Balance 15.201 Intake: Intake, IV Titration 15.201 Amount Insulin Regular 100 unit 15.201 In Sodium Chloride 0.9% 100 ml @ 0.1 UNITS/KG/HR 5.039 mls/hr IV .Q20H3M [facility] Rx#:[id number] Other: Weight 49.895 kg General Appearance: Awake and alert on room air oxygen, encephalopathic very dry mucous membranes Neck HEENT: Supple, no lymphadenopathy, no thyroid enlargement, no carotid bruits. Lungs: Clear to auscultation without crackles or wheezes no rhonchi, no deformity. Chest Wall: Normal expansion with slight tenderness, slightly at resuscitation. And no deformity was found on exam, no costochondral pain or discomfort. Heart: Regular rate and rhythm, S1, S2 normal, no murmur, rub or gallop. Back: Symmetric, no curvature, ROM normal, no CVA tenderness. Abdomen: Soft, non-tender, bowel sounds active all four quadrants, no masses, no organomegaly. Extremities: Extremities normal, atraumatic, no cyanosis or edema. Pulses: Extremities are warm and the patient with diminished pulses in lower extremities bilaterally Skin: Skin color, texture, tugor normal, no rashes or lesions. Neurologic: Neurologically, the patient is encephalopathic and the patient does not have any focal neurological deficit. Cranial nerves are essentially intact. Results - Laboratory Findings CBC and BMP: 04/24/24 23:00 04/25/24 02:40 PT/INR, D-dimer PT 10.4 sec (10.0-12.5) 04/24/24 23:00 INR 0.9 (<1.2) 04/24/24 23:00 Abnormal lab findings: Abnormal Labs 04/24/24 04/24/24 04/24/24 21:22 23:00 23:00 WBC 11.9 H RBC 3.18 L Hgb 9.3 L MCV 107.9 H D MCHC 27.3 L RDW 15.6 H Neutrophils # 10.7 H Lymphocytes # 0.7 L Macrocytosis Marked A VBG pH VBG pCO2 VBG HCO3 Sodium Chloride 94 L Carbon Dioxide <5 L* BUN 45 H Creatinine 1.93 H Glucose 1206 H* POC Glucose (mg/dL) >600 H* Alkaline Phosphatase 173 H Total Protein 6.1 L Urine Glucose (UA) Urine Ketones 04/24/24 04/24/24 04/25/24 23:37 23:43 00:57 WBC RBC Hgb MCV MCHC RDW Neutrophils # Lymphocytes # Macrocytosis VBG pH 7.15 L* VBG pCO2 20 L VBG HCO3 7 L* Sodium Chloride Carbon Dioxide BUN Creatinine Glucose POC Glucose (mg/dL) >600 H* Alkaline Phosphatase Total Protein Urine Glucose (UA) 4+ H Urine Ketones 2+ H 04/25/24 04/25/24 04/25/24 01:52 02:40 02:54 WBC RBC Hgb MCV MCHC RDW Neutrophils # Lymphocytes # Macrocytosis VBG pH VBG pCO2 VBG HCO3 Sodium 147 H Chloride Carbon Dioxide 13 L BUN 46 H Creatinine 1.69 H Glucose 684 H* POC Glucose (mg/dL) >600 H* >600 H* Alkaline Phosphatase Total Protein Urine Glucose (UA) Urine Ketones 04/25/24 04/25/24 04/25/24 04:01 04:57 06:04 WBC RBC Hgb MCV MCHC RDW Neutrophils # Lymphocytes # Macrocytosis VBG pH VBG pCO2 VBG HCO3 Sodium Chloride Carbon Dioxide BUN Creatinine Glucose POC Glucose (mg/dL) >600 H* >600 H* 448 H Alkaline Phosphatase Total Protein Urine Glucose (UA) Urine Ketones 04/25/24 07:04 WBC RBC Hgb MCV MCHC RDW Neutrophils # Lymphocytes # Macrocytosis VBG pH VBG pCO2 VBG HCO3 Sodium Chloride Carbon Dioxide BUN Creatinine Glucose POC Glucose (mg/dL) 402 H Alkaline Phosphatase Total Protein Urine Glucose (UA) Urine Ketones - Diagnostic Findings Chest x-ray: image reviewed Assessment and Plan Plan: DKA, with severe anion gap metabolic acidosis and hyperglycemia Acute kidney injury, likely secondary to testicle volume depletion Altered mental status, secondary to above Multivessel coronary artery disease Moderate CAD in Mid LAD Moderate CAD in LCx CHF with mild impairment of the LV function with an ejection fraction of 40 to 45% History of renal cell carcinoma with a partial nephrectomy on the right Remote history of DVT Hypothyroidism Hyperlipidemia Diabetic peripheral neuropathy COPD Peripheral vascular disease with stenosis of the right [employer] History of depression Gastroparesis Previous history of CVA x 4 with encephalomalacia and old lacunar infarcts Recent Klebsiella/gram-negative urinary tract infection, treated Plan Admit to the ICU Continue insulin drip D5 half-normal saline at rate of 150 cc an hour per DKA protocol Hourly blood sugar monitoring Electrolytes every 4 hours Keep n.p.o. Room air oxygen Lovenox for DVT prophylaxis
[2024-04-25 12:07] LABS: Glucose,Whole Blood 171 mg/dL (70-110)
--- NOTE | 2024-04-25 12:54 | P.HPIM ---
History of Present Illness H&P Date: 04/25/24 History of present illness; patient 64-year-old lady with past medical history significant for hypertension, hyperlipidemia, PVD, rheumatoid arthritis, diabetes who presented to the ER for altered mental status. Patient has similar admissions in the past with similar complaints at which time she was found to be in DKA. Patient was brought to the ER because of altered mental status. Family found patient to be confused. Blood sugar was checked and was found to be greater than 600. Patient had no obvious trauma. There was no complaint of weakness of any extremity. There is no complaint of slurred speech. There is no complaint of shortness of breath or chest pain. Because of altered mental status, patient brought to the ED Initial lab work done in the ER showed WBC 11.9, hemoglobin 9.3, platelet count 429, sodium 142, potassium 4.7, BUN 45, creatinine 1.93 glucose 06/17/2005, AST 15, ALT 10, alk phos 173, UA negative for infection Urine drug screen negative Serum alcohol less than 10, acetone positive EKG done in the ER showed heart rate of112 , no ST segment elevation or depress ion seen, no T-wave inversions seen. Chest x-ray done in the ER showed calcified granuloma at left lung base CT head done showed no acute intracranial process Patient admitted to internal medicine service REVIEW OF SYSTEMS: Review of system cannot be obtained as patient is obtunded PHYSICAL EXAMINATION: GENERAL: The patient is obtunded HEENT: Pupils are round and equally reacting to light. EOMI. No scleral icterus. No conjunctival pallor. Normocephalic, atraumatic. No pharyngeal erythema. No thyromegaly. CARDIOVASCULAR: S1 and S2 present. No murmurs, rubs, or gallops. PULMONARY: Chest is clear to auscultation, no wheezing or crackles. ABDOMEN: Soft, nontender, nondistended, normoactive bowel sounds. No palpable organomegaly. MUSCULOSKELETAL: No joint swelling or deformity. EXTREMITIES: No cyanosis, clubbing, or pedal edema. NEUROLOGICAL: Confused but moving all extremities SKIN: No rashes. Assessment and plan Acute metabolic encephalopathy DKA Acute kidney injury History of coronary artery disease History of CHF hypothyroidism hyperlipidemia COPD Peripheral vascular disease Hypertension Monitor vital signs Monitor CBC Monitor CMP Continue telemetry monitoring Ordered serial electrolytes every 4 hourly Ordered IV fluids Ordered insulin drip Ordered serial glucose monitoring every hour DKA protocol was initiated. Once blood sugars are less than 250, switch to D5 half normal saline Once anion gap closes and patient able to eat food, will switch to subcu insulin ICU consulted Labs and medication were reviewed.. Continue same treatment. Continue with symptomatic treatment. Resume home medication. Monitor labs and vitals. DVT and GI prophylaxis. Further recommendations as per clinical course of the patient Dictation was produced using [employer] dictation software. please excuse any grammatical, word or spelling errors. Past Medical History Past Medical History: Coronary Artery Disease (CAD), Cancer, COPD, CVA/TIA, Diabetes Mellitus, Deep Vein Thrombosis (DVT), Eye Disorder, GERD/Reflux, Hyperlipidemia, Hypertension, Myocardial Infarction (CT), Musculoskeletal Disorder, Neurologic Disorder, Renal Disease, Rheumatoid Arthritis (RA), Sleep Apnea/CPAP/BIPAP, Syncope, Thyroid Disorder Additional Past Medical History / Comment(s): 09/16/16 small bowel obstruction with surgery. Hx left renal cell carcinoma with partial nephrectomy. Hx CVA X4, last 5 yrs ago, no residual effects. Hx DVT left leg 7-8 yrs ago. Hypothyroidism. Chronic back pain, degenerative disc disease, restless leg s yndrome, peripheral neuropathy. Hx UTI with sepsis Apr 2016 requiring PICC line insertion for IV antibiotics. Hx bilateral glaucoma. Hx syncope due to low blood sugars. No CPAP use. Migraines. DKA, HHS. Last Myocardial Infarction Date:: 2019 History of Any Multi-Drug Resistant Organisms: ESBL, MRSA, VRE Date of last positivie culture/infection: 05/07/16 ESBL, 05/15/16 VRE, MRSA 09/2017 - upper lip MDRO Source:: URINE E.COLI, EC GALLINARUM Past Surgical History: Appendectomy, Bowel Resection, Section, Heart Catheterization, Heart Catheterization With Stent, Hernia Repair Additional Past Surgical History / Comment(s): Exploratory laparotomy with lysis of adhesions, repair incarcerated incisional hernia with abdominal washout, thyroidectomy, partial left nephrectomy, colonoscopy, bilateral cataract removal with lens implants, Section X2, cardiac stent 04/06/2021. Past Anesthesia/Blood Transfusion Reactions: No Reported Reaction Date of Last Stent Placement:: 04/06/2021 Past Psychological History: Depression Smoking Status: Former smoker Past Alcohol Use History: None Reported Past Drug Use History: Cocaine, Marijuana - Past Family History Sister(s) Family Medical History: Cancer, Deep Vein Thrombosis (DVT) Additional Family Medical History / Comment(s): Patient has one sister that from liver cancer. Brother(s) Family Medical History: Cancer, Deep Vein Thrombosis (DVT) Additional Family Medical History / Comment(s): Patient has 1 brother with past ETOH, past drug abuse, DVTs. She has a second brother that has from throat cancer. Daughter(s) Family Medical History: Diabetes Mellitus, Myocardial Infarction (CT) Additional Family Medical History / Comment(s): Daughter at 23 yrs old from massive CT. Father Family Medical History: Myocardial Infarction (CT) Additional Family Medical History / Comment(s): from CT at age 44. Mother Family Medical History: Cancer Additional Family Medical History / Comment(s): Breast cancer. Medications and Allergies Home Medications Medication Instructions Recorded Confirmed Type Venlafaxine HCl [Effexor XR] 225 mg PO DAILY 10/21/16 04/25/24 History Pantoprazole Sodium [Protonix] 40 mg PO BID 04/06/20 04/25/24 History Aspirin EC [Ecotrin Low Dose] 81 mg PO DAILY 10/03/22 04/25/24 History Isosorbide Mononitrate ER [Imdur] 30 mg PO DAILY 04/10/23 04/25/24 History Mirtazapine 7.5 mg PO HS 04/10/23 04/25/24 History cilostazoL [Pletal] 100 mg PO BID 08/02/23 04/25/24 History Metoprolol Succinate (ER) [Toprol 25 mg PO DAILY #60 tab 08/05/23 04/25/24 Rx XL] Linagliptin [Tradjenta] 5 mg PO DAILY #30 tab 09/05/23 04/25/24 Rx INSULIN LISPRO (HumaLOG) [humaLOG] See Protocol SQ AC-TID PRN 02/12/24 04/25/24 History Acetaminophen Tab [Tylenol] 650 mg PO Q6HR PRN tab 02/18/24 04/25/24 Rx Folic Acid 1 mg PO DAILY tab 02/18/24 04/25/24 Rx Cyanocobalamin [Vitamin B-12] 1,000 mcg PO TID 03/26/24 04/25/24 History Insulin Glargine,Hum.rec.anlog 25 units SQ HS #5 each 04/13/24 04/25/24 Rx [Lantus Solostar Pen] Nystatin 100,000 Unit/gm Powd 1 applic TOPICAL TID 7 Days #30 gm 04/13/24 04/25/24 Rx [Mycostatin Powder] Levothyroxine Sodium [Synthroid] 50 mcg PO DAILY #30 tab 04/17/24 04/25/24 Rx Amoxic-Pot Clav 875-125Mg 1 tab PO DIRECTED 04/25/24 04/25/24 History [Augmentin 875-125] Fluconazole [Diflucan] 150 mg PO DIRECTED 04/25/24 04/25/24 History Allergies Allergy/AdvReac Type Severity Reaction Status Date / Time grass pollen Allergy Unknown Verified 04/09/24 06:36 latex Allergy Rash/Hives Verified 04/09/24 06:36 Sulfa (Sulfonamide Allergy Rash/Hives/ Verified 04/09/24 06:36 Antibiotics) Swelling venom-honey bee Allergy Anaphylaxis Verified 04/09/24 06:36 prochlorperazine edisylate AdvReac Vomiting Verified 04/09/24 06:36 [From Compazine] Physical Exam Vitals: Vital Signs Temp Pulse Resp BP Pulse Ox 04/25/24 05:12 82 22 92/53 04/25/24 02:23 102 H 19 93/59 95 04/24/24 23:34 111 H 20 90/66 95 04/24/24 21:23 97.4 F L 111 H 22 94/53 Intake and Output 04/24/24 04/25/24 04/25/24 22:59 06:59 14:59 Intake Total 15.201 Balance 15.201 Intake: Intake, IV Titration 15.201 Amount Insulin Regular 100 unit 15.201 In Sodium Chloride 0.9% 100 ml @ 0.1 UNITS/KG/HR 5.039 mls/hr IV .Q20H3M [facility] Rx#:[id number] Other: Weight 49.895 kg Results CBC & Chem 7: 04/24/24 23:00 04/25/24 02:40 Labs: Abnormal Lab Results - Last 24 Hours (Table) 04/24/24 04/24/24 04/24/24 Range/Units 21:22 23:00 23:00 WBC 11.9 H (3.8-10.6) k/uL RBC 3.18 L (3.80-5.40) m/uL Hgb 9.3 L (11.4-16.0) gm/dL MCV 107.9 H D (80.0-100.0) fL MCHC 27.3 L (31.0-37.0) g/dL RDW 15.6 H (11.5-15.5) % Neutrophils # 10.7 H (1.3-7.7) k/uL Lymphocytes # 0.7 L (1.0-4.8) k/uL Macrocytosis Marked A VBG pH (7.31-7.41) VBG pCO2 (37-51) mmHg VBG HCO3 (24-28) mmol/L Sodium (137-145) mmol/L Chloride 94 L (98-107) mmol/L Carbon Dioxide <5 L* (22-30) mmol/L BUN 45 H (7-17) mg/dL Creatinine 1.93 H (0.52-1.04) mg/dL Glucose 1206 H* (74-99) mg/dL POC Glucose (mg/dL) >600 H* (70-110) mg/dL Alkaline Phosphatase 173 H (38-126) U/L Total Protein 6.1 L (6.3-8.2) g/dL Urine Glucose (UA) (Negative) Urine Ketones (Negative) 04/24/24 04/24/24 04/25/24 Range/Units 23:37 23:43 00:57 WBC (3.8-10.6) k/uL RBC (3.80-5.40) m/uL Hgb (11.4-16.0) gm/dL MCV (80.0-100.0) fL MCHC (31.0-37.0) g/dL RDW (11.5-15.5) % Neutrophils # (1.3-7.7) k/uL Lymphocytes # (1.0-4.8) k/uL Macrocytosis VBG pH 7.15 L* (7.31-7.41) VBG pCO2 20 L (37-51) mmHg VBG HCO3 7 L* (24-28) mmol/L Sodium (137-145) mmol/L Chloride (98-107) mmol/L Carbon Dioxide (22-30) mmol/L BUN (7-17) mg/dL Creatinine (0.52-1.04) mg/dL Glucose (74-99) mg/dL POC Glucose (mg/dL) >600 H* (70-110) mg/dL Alkaline Phosphatase (38-126) U/L Total Protein (6.3-8.2) g/dL Urine Glucose (UA) 4+ H (Negative) Urine Ketones 2+ H (Negative) 04/25/24 04/25/24 04/25/24 Range/Units 01:52 02:40 02:54 WBC (3.8-10.6) k/uL RBC (3.80-5.40) m/uL Hgb (11.4-16.0) gm/dL MCV (80.0-100.0) fL MCHC (31.0-37.0) g/dL RDW (11.5-15.5) % Neutrophils # (1.3-7.7) k/uL Lymphocytes # (1.0-4.8) k/uL Macrocytosis VBG pH (7.31-7.41) VBG pCO2 (37-51) mmHg VBG HCO3 (24-28) mmol/L Sodium 147 H (137-145) mmol/L Chloride (98-107) mmol/L Carbon Dioxide 13 L (22-30) mmol/L BUN 46 H (7-17) mg/dL Creatinine 1.69 H (0.52-1.04) mg/dL Glucose 684 H* (74-99) mg/dL POC Glucose (mg/dL) >600 H* >600 H* (70-110) mg/dL Alkaline Phosphatase (38-126) U/L Total Protein (6.3-8.2) g/dL Urine Glucose (UA) (Negative) Urine Ketones (Negative) 04/25/24 04/25/24 04/25/24 Range/Units 04:01 04:57 06:04 WBC (3.8-10.6) k/uL RBC (3.80-5.40) m/uL Hgb (11.4-16.0) gm/dL MCV (80.0-100.0) fL MCHC (31.0-37.0) g/dL RDW (11.5-15.5) % Neutrophils # (1.3-7.7) k/uL Lymphocytes # (1.0-4.8) k/uL Macrocytosis VBG pH (7.31-7.41) VBG pCO2 (37-51) mmHg VBG HCO3 (24-28) mmol/L Sodium (137-145) mmol/L Chloride (98-107) mmol/L Carbon Dioxide (22-30) mmol/L BUN (7-17) mg/dL Creatinine (0.52-1.04) mg/dL Glucose (74-99) mg/dL POC Glucose (mg/dL) >600 H* >600 H* 448 H (70-110) mg/dL Alkaline Phosphatase (38-126) U/L Total Protein (6.3-8.2) g/dL Urine Glucose (UA) (Negative) Urine Ketones (Negative) 04/25/24 Range/Units 07:04 WBC (3.8-10.6) k/uL RBC (3.80-5.40) m/uL Hgb (11.4-16.0) gm/dL MCV (80.0-100.0) fL MCHC (31.0-37.0) g/dL RDW (11.5-15.5) % Neutrophils # (1.3-7.7) k/uL Lymphocytes # (1.0-4.8) k/uL Macrocytosis VBG pH (7.31-7.41) VBG pCO2 (37-51) mmHg VBG HCO3 (24-28) mmol/L Sodium (137-145) mmol/L Chloride (98-107) mmol/L Carbon Dioxide (22-30) mmol/L BUN (7-17) mg/dL Creatinine (0.52-1.04) mg/dL Glucose (74-99) mg/dL POC Glucose (mg/dL) 402 H (70-110) mg/dL Alkaline Phosphatase (38-126) U/L Total Protein (6.3-8.2) g/dL Urine Glucose (UA) (Negative) Urine Ketones (Negative)
[2024-04-25 13:00] LABS: Glucose,Whole Blood 232 mg/dL (70-110)
[2024-04-25] MEDS: ENOXAPARIN 30 MG/0.3 ML SYRINGE SQ SCH (13:48)
[2024-04-25 14:01] LABS: Glucose,Whole Blood 196 mg/dL (70-110)
[2024-04-25 15:15] LABS: Glucose,Whole Blood 176 mg/dL (70-110)
[2024-04-25 16:00] LABS: Glucose,Whole Blood 191 mg/dL (70-110)
[2024-04-25 17:13] LABS: Glucose,Whole Blood 135 mg/dL (70-110)
[2024-04-25 18:17] LABS: Glucose,Whole Blood 144 mg/dL (70-110)
[2024-04-25 19:01] LABS: African American GFR (CKD) 74 (>60 ml/min/1.73 sqM); Anion Gap 7 mmol/L; Blood Urea Nitrogen 37 mg/dL (7-17); Calcium 7.7 mg/dL (8.4-10.2); Carbon Dioxide 27 mmol/L (22-30); Chloride 116 mmol/L (98-107); Glucose 123 mg/dL (74-99); Non-African American GFR(CKD) 64 (>60 ml/min/1.73 sqM); Potassium 3.8 mmol/L (3.5-5.1); Sodium 150 mmol/L (137-145)
[2024-04-25 19:02] LABS: Glucose,Whole Blood 147 mg/dL (70-110)
[2024-04-25 20:16] LABS: Glucose,Whole Blood 222 mg/dL (70-110)
[2024-04-25] MEDS: INSULIN DETEMIR (LEVEMIR) 100 UNIT/ML SYR SQ SCH (21:42)
[2024-04-25 21:49] LABS: Glucose,Whole Blood 304 mg/dL (70-110)
[2024-04-26 01:27] LABS: Glucose,Whole Blood 219 mg/dL (70-110)
[2024-04-26 04:59] LABS: Glucose,Whole Blood 104 mg/dL (70-110)
[2024-04-26 06:24] LABS: Anisocytosis Slight; HCT 24.9 % (34.0-46.0); HGB 8.1 gm/dL (11.4-16.0); Hypochromasia Slight; MCH 29.6 pg (25.0-35.0); MCHC 32.4 g/dL (31.0-37.0); Platelet Count 274 k/uL (150-450); RBC 2.73 m/uL (3.80-5.40); RDW 17.8 % (11.5-15.5); WBC 14.6 k/uL (3.8-10.6)
[2024-04-26 06:28] LABS: MCV 91.2 fL (80.0-100.0)
[2024-04-26 06:37] LABS: African American GFR (CKD) >90 (>60 ml/min/1.73 sqM); Anion Gap 6 mmol/L; Blood Urea Nitrogen 30 mg/dL (7-17); Calcium 7.8 mg/dL (8.4-10.2); Carbon Dioxide 27 mmol/L (22-30); Chloride 117 mmol/L (98-107); Glucose 78 mg/dL (74-99); Non-African American GFR(CKD) 80 (>60 ml/min/1.73 sqM); Potassium 3.6 mmol/L (3.5-5.1); Sodium 150 mmol/L (137-145)
[2024-04-26 06:39] LABS: Glucose,Whole Blood 66 mg/dL (70-110)
[2024-04-26 06:47] LABS: Band Neutrophils % 10 %; Eosinophils # (M) 0.29 k/uL (0-0.7); Lymphocytes # (M) 2.48 k/uL (1.0-4.8); Metamyelocytes # (M) 0.73 k/uL (0); Metamyelocytes % 5 %; Monocytes # (M) 1.61 k/uL (0-1.0); Myelocytes # (M) 0.29 k/uL (0); Myelocytes % 2 %; Neutrophils % (M) 54 %; Nucleated Red Blood Cells 0 /100 WBC (0-0); Total Cells Counted 200
[2024-04-26 06:48] LABS: Polychromasia Present
[2024-04-26 07:08] LABS: Glucose,Whole Blood 85 mg/dL (70-110)
[2024-04-26] MEDS: INSULIN ASPART (NovoLOG) 100 UNIT/ML VIAL SQ SCH (08:21)
[2024-04-26] MEDS: POTASSIUM CHLORIDE ER 20 MEQ TAB.ER PO SCH (08:50)
[2024-04-26 08:51] LABS: Glucose,Whole Blood 78 mg/dL (70-110)
[2024-04-26] MEDS: ACETAMINOPHEN TAB 500 MG TAB PO PRN (10:31)
[2024-04-26 11:53] LABS: Glucose,Whole Blood 118 mg/dL (70-110)
[2024-04-26 12:00] VITALS: BMI 19.7
--- NOTE | 2024-04-26 12:36 | P.PN ---
Subjective Progress Note Date: 04/26/24 Principal diagnosis: Acute DKA This is a 64-year-old female patient, diabetic with poor compliance, comes in for another episode of DKA. She is altered and encephalopathic in the emergency department. She her blood sugars were above 600. Serum bicarb is less than 5, anion gap was more than 30. Sodium level is 142. WBC count 11.9 hemoglobin of 9.3 and a creatinine of 1.9. Noted she has had previous episodes of DKA, the patient was in the hospital March 2024 and she was hospitalized twice on that month for complications related to DKA. In the emergency, the patient was given 2 L of IV fluids. She currently she is on insulin drip running at 2.5 units an hour. Blood sugar is down to 138 and the patient will be switched to D5 half- normal saline. Subsequent blood work shows a gap of 27 and a serum bicarb of 13. Sodium levels at 147. She is on room air oxygen. Chest x-ray shows no acute abnormalities. CAT scan of the brain also done and shows no acute int racardiac intracranial abnormalities. There is encephalomalacia in bilateral occipital lobes consistent with old infarcts. Noted, the patient is supposed to be on Lantus insulin 25 units daily in addition to Tradjenta on outpatient basis. She has had previous episodes of UTI with Klebsiella pneumoniae on 03/30/2024, treated and a repeat UA is negative for any infection. Urine drug screen is negative. Alcohol level is less than 10. Patient was today on 04/26/2024, patient remains in the ICU, she is recovering quite nicely from her acute diabetic ketoacidosis, patient is doing well, does n ot seem to be in any distress. WBC count is 14.6 hemoglobin is 8.1 sodium is elevated at 150 potassium 3.6 BUN is 30 creatinine is 0.79. Patient is slightly confused, but she is not in any form of respiratory distress Objective - Vital Signs Vital signs: Vital Signs Temp 98.2 F 04/26/24 08:00 Pulse 75 04/26/24 11:00 Resp 13 04/26/24 11:00 BP 95/63 04/26/24 11:00 Pulse Ox 96 04/26/24 09:00 FiO2 Intake & Output 04/25/24 04/26/24 04/26/24 18:59 06:59 18:59 Intake Total 2953.125 451.366 Output Total 830 255 55 Balance 2123.125 196.366 -55 Weight 49.895 kg 52.2 kg 52.2 kg Intake: IV 900 450 D5-0.45% NaCl with KCl 900 450 20Meq/l 1,000 ml @ 150 mls/hr IV .Q6H40M [facility] Rx# :[id number] Intake, IV Titration 2053.125 1.366 Amount Insulin Regular 100 unit 53.125 1.366 In Sodium Chloride 0.9% 100 ml @ 0.1 UNITS/KG/HR 5.039 mls/hr IV .Q20H3M [facility] Rx#:[id number] Sodium Chloride 0.9% 1, 2000 000 ml @ 200 mls/hr IV . Q5H [facility] Rx#:[id number] Output: Urine 830 255 55 Other: Voiding Method Indwelling Catheter Indwelling Catheter Indwelling Catheter - Exam General Appearance: 64-year-old female in no distress Neck HEENT: Supple, no neck masses no JVD no stridor. Lungs: Clear throughout no crackles rhonchi or wheezes Chest Wall: No deformities symmetrical chest expansion Heart: Regular rate and rhythm, S1, S2 normal, no murmur, rub or gallop.. Abdomen: Soft, non-tender, bowel sounds active all four quadrants, no masses, no organomegaly. Extremities: No clubbing edema or cyanosis Pulses: Good pulses bilaterally Skin: No rashes Neurologic: Alert oriented x 2, slightly confused - Labs CBC & Chem 7: 04/26/24 05:47 04/26/24 05:54 Labs: Abnormal Lab Results - Last 24 Hours (Table) 04/25/24 04/25/24 04/25/24 Range/Units 12:59 14:00 15:13 WBC (3.8-10.6) k/uL RBC (3.80-5.40) m/uL Hgb (11.4-16.0) gm/dL Hct (34.0-46.0) % RDW (11.5-15.5) % Neutrophils # (Manual) (1.3-7.7) k/uL Monocytes # (Manual) (0-1.0) k/uL Metamyelocytes # (Man) (0) k/uL Myelocytes # (Manual) (0) k/uL Sodium (137-145) mmol/L Chloride (98-107) mmol/L BUN (7-17) mg/dL Glucose (74-99) mg/dL POC Glucose (mg/dL) 232 H 196 H 176 H (70-110) mg/dL Calcium (8.4-10.2) mg/dL Phosphorus (2.5-4.5) mg/dL 04/25/24 04/25/24 04/25/24 Range/Units 15:58 17:12 18:16 WBC (3.8-10.6) k/uL RBC (3.80-5.40) m/uL Hgb (11.4-16.0) gm/dL Hct (34.0-46.0) % RDW (11.5-15.5) % Neutrophils # (Manual) (1.3-7.7) k/uL Monocytes # (Manual) (0-1.0) k/uL Metamyelocytes # (Man) (0) k/uL Myelocytes # (Manual) (0) k/uL Sodium (137-145) mmol/L Chloride (98-107) mmol/L BUN (7-17) mg/dL Glucose (74-99) mg/dL POC Glucose (mg/dL) 191 H 135 H 144 H (70-110) mg/dL Calcium (8.4-10.2) mg/dL Phosphorus (2.5-4.5) mg/dL 04/25/24 04/25/24 04/25/24 Range/Units 18:20 19:00 20:14 WBC (3.8-10.6) k/uL RBC (3.80-5.40) m/uL Hgb (11.4-16.0) gm/dL Hct (34.0-46.0) % RDW (11.5-15.5) % Neutrophils # (Manual) (1.3-7.7) k/uL Monocytes # (Manual) (0-1.0) k/uL Metamyelocytes # (Man) (0) k/uL Myelocytes # (Manual) (0) k/uL Sodium 150 H (137-145) mmol/L Chloride 116 H (98-107) mmol/L BUN 37 H (7-17) mg/dL Glucose 123 H (74-99) mg/dL POC Glucose (mg/dL) 147 H 222 H (70-110) mg/dL Calcium 7.7 L (8.4-10.2) mg/dL Phosphorus (2.5-4.5) mg/dL 04/25/24 04/26/24 04/26/24 Range/Units 21:48 00:05 01:25 WBC (3.8-10.6) k/uL RBC (3.80-5.40) m/uL Hgb (11.4-16.0) gm/dL Hct (34.0-46.0) % RDW (11.5-15.5) % Neutrophils # (Manual) (1.3-7.7) k/uL Monocytes # (Manual) (0-1.0) k/uL Metamyelocytes # (Man) (0) k/uL Myelocytes # (Manual) (0) k/uL Sodium (137-145) mmol/L Chloride (98-107) mmol/L BUN (7-17) mg/dL Glucose (74-99) mg/dL POC Glucose (mg/dL) 304 H 219 H (70-110) mg/dL Calcium (8.4-10.2) mg/dL Phosphorus 1.8 L (2.5-4.5) mg/dL 04/26/24 04/26/24 04/26/24 Range/Units 05:47 05:54 06:38 WBC 14.6 H (3.8-10.6) k/uL RBC 2.73 L (3.80-5.40) m/uL Hgb 8.1 L (11.4-16.0) gm/dL Hct 24.9 L (34.0-46.0) % RDW 17.8 H (11.5-15.5) % Neutrophils # (Manual) 9.30 H (1.3-7.7) k/uL Monocytes # (Manual) 1.61 H (0-1.0) k/uL Metamyelocytes # (Man) 0.73 H (0) k/uL Myelocytes # (Manual) 0.29 H (0) k/uL Sodium 150 H (137-145) mmol/L Chloride 117 H (98-107) mmol/L BUN 30 H (7-17) mg/dL Glucose (74-99) mg/dL POC Glucose (mg/dL) 66 L (70-110) mg/dL Calcium 7.8 L (8.4-10.2) mg/dL Phosphorus (2.5-4.5) mg/dL 04/26/24 Range/Units 11:52 WBC (3.8-10.6) k/uL RBC (3.80-5.40) m/uL Hgb (11.4-16.0) gm/dL Hct (34.0-46.0) % RDW (11.5-15.5) % Neutrophils # (Manual) (1.3-7.7) k/uL Monocytes # (Manual) (0-1.0) k/uL Metamyelocytes # (Man) (0) k/uL Myelocytes # (Manual) (0) k/uL Sodium (137-145) mmol/L Chloride (98-107) mmol/L BUN (7-17) mg/dL Glucose (74-99) mg/dL POC Glucose (mg/dL) 118 H (70-110) mg/dL Calcium (8.4-10.2) mg/dL Phosphorus (2.5-4.5) mg/dL Assessment and Plan Assessment: Impression Acute DKA Acute anion gap metabolic acidosis secondary to above Acute metabolic encephalopathy Hypernatremia secondary to free water deficit, will treat with D5W and free water Remote history of DVT History of renal cell carcinoma and previous partial right-sided nephrectomy Hypothyroidism History of underlying COPD Diabetic peripheral neuropathy Peripheral vessel occlusive disease History of depression 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
[2024-04-26] MEDS: DEXTROSE 5% IN WATER 1,000 ML IV ONE (13:31)
[2024-04-26] MEDS: HYDROcodone/APAP 5-325MG 1 EACH TAB PO PRN (14:00)
--- NOTE | 2024-04-26 16:15 | P.PN ---
Subjective Progress Note Date: 04/26/24 Interval History: History of present illness; patient 64-year-old lady with past medical history significant for hypertension, hyperlipidemia, PVD, rheumatoid arthritis, diabetes who presented to the ER for altered mental status. Patient has similar admissions in the past with similar complaints at which time she was found to be in DKA. Patient was brought to the ER because of altered mental status. Family found patient to be confused. Blood sugar was checked and was found to be greater than 600. Patient had no obvious trauma. There was no complaint of weakness of any extremity. There is no complaint of slurred speech. There is no complaint of shortness of breath or chest pain. Because of altered mental status, patient brought to the ED Initial lab work done in the ER showed WBC 11.9, hemoglobin 9.3, platelet count 429, sodium 142, potassium 4.7, BUN 45, creatinine 1.93 glucose 06/17/2005, AST 15, ALT 10, alk phos 173, UA negative for infection Urine drug screen negative Serum alcohol less than 10, acetone positive EKG done in the ER showed heart rate of112 , no ST segment elevation or depression seen, no T-wave inversions seen. Chest x-ray done in the ER showed calcified granuloma at left lung base CT head done showed no acute intracranial process Patient admitted to internal medicine service [id number] Patient was seen and examined today, more awake and alert today, still mild co nfusion, complains of left sided jaw pain, missing dentures. Afebrile, heart rate 71, respiratory rate 14, blood pressure 99/66, saturating 96% on room air. No new labs from today. Assessment and plan: Acute metabolic encephalopathy--improved DKA--resolved Acute kidney injury History of coronary artery disease History of CHF hypothyroidism hyperlipidemia COPD Peripheral vascular disease Hypertension Initially treated with insulin drip per DKA protocol, IV fluids, serial glucose monitoring and serial electrolyte monitoring Now switched to subcutaneous long-acting insulin and Humalog. ICU consulted Continue home bronchodilators Resume home meds /OT consult. DVT prophylaxis: Lovenox Monitor vital signs and labs Labs and medication were reviewed. Continue same treatment. Further recommendations as per clinical course of the patient PHYSICAL EXAMINATION: GENERAL: The patient is A&O x2-3, NAD HEENT: EOMI, Sclerae anicteric, Moist Mucous membranes Neck: Supple, Non tender, No JVD PULMONARY: Equal breath souds B/L, No wheezing, No crackles. CARDIOVASCULAR: S1, S2 present. No murmurs, rubs, or gallops. ABDOMEN: Soft, nontender, nondistended, normoactive bowel sounds. No guarding or rebound tenderness. MUSCULOSKELETAL: No edema, No cyanosis. No clubbing. Normal ROM. Intact peripheral pulses. NEUROLOGICAL: CN 2-12 grossly intact. No FND Skin: No Rash REVIEW OF SYSTEMS: Review of system due to mild confusion. Complains of left jaw pain. Dictation was produced using [employer] dictation software. please excuse any grammatical, word or spelling errors. Objective - Vital Signs Vital signs: Vital Signs Temp 97.9 F 04/26/24 14:00 Pulse 71 04/26/24 14:00 Resp 14 04/26/24 14:00 BP 99/66 04/26/24 14:00 Pulse Ox 96 04/26/24 09:00 FiO2 Intake & Output 04/25/24 04/26/24 04/26/24 18:59 06:59 18:59 Intake Total 2953.125 451.366 Output Total 830 255 55 Balance 2123.125 196.366 -55 Weight 49.895 kg 52.2 kg 52.2 kg Intake: IV 900 450 D5-0.45% NaCl with KCl 900 450 20Meq/l 1,000 ml @ 150 mls/hr IV .Q6H40M [facility] Rx# :[id number] Intake, IV Titration 2053.125 1.366 Amount Insulin Regular 100 unit 53.125 1.366 In Sodium Chloride 0.9% 100 ml @ 0.1 UNITS/KG/HR 5.039 mls/hr IV .Q20H3M [facility] Rx#:[id number] Sodium Chloride 0.9% 1, 2000 000 ml @ 200 mls/hr IV . Q5H [facility] Rx#:[id number] Output: Urine 830 255 55 Other: Voiding Method Indwelling Catheter Indwelling Catheter Indwelling Catheter - Labs CBC & Chem 7: 04/26/24 05:47 04/26/24 05:54 Labs: Abnormal Lab Results - Last 24 Hours (Table) 04/25/24 04/25/24 04/25/24 Range/Units 17:12 18:16 18:20 WBC (3.8-10.6) k/uL RBC (3.80-5.40) m/uL Hgb (11.4-16.0) gm/dL Hct (34.0-46.0) % RDW (11.5-15.5) % Neutrophils # (Manual) (1.3-7.7) k/uL Monocytes # (Manual) (0-1.0) k/uL Metamyelocytes # (Man) (0) k/uL Myelocytes # (Manual) (0) k/uL Sodium 150 H (137-145) mmol/L Chloride 116 H (98-107) mmol/L BUN 37 H (7-17) mg/dL Glucose 123 H (74-99) mg/dL POC Glucose (mg/dL) 135 H 144 H (70-110) mg/dL Calcium 7.7 L (8.4-10.2) mg/dL Phosphorus (2.5-4.5) mg/dL 04/25/24 04/25/24 04/25/24 Range/Units 19:00 20:14 21:48 WBC (3.8-10.6) k/uL RBC (3.80-5.40) m/uL Hgb (11.4-16.0) gm/dL Hct (34.0-46.0) % RDW (11.5-15.5) % Neutrophils # (Manual) (1.3-7.7) k/uL Monocytes # (Manual) (0-1.0) k/uL Metamyelocytes # (Man) (0) k/uL Myelocytes # (Manual) (0) k/uL Sodium (137-145) mmol/L Chloride (98-107) mmol/L BUN (7-17) mg/dL Glucose (74-99) mg/dL POC Glucose (mg/dL) 147 H 222 H 304 H (70-110) mg/dL Calcium (8.4-10.2) mg/dL Phosphorus (2.5-4.5) mg/dL 04/26/24 04/26/24 04/26/24 Range/Units 00:05 01:25 05:47 WBC 14.6 H (3.8-10.6) k/uL RBC 2.73 L (3.80-5.40) m/uL Hgb 8.1 L (11.4-16.0) gm/dL Hct 24.9 L (34.0-46.0) % RDW 17.8 H (11.5-15.5) % Neutrophils # (Manual) 9.30 H (1.3-7.7) k/uL Monocytes # (Manual) 1.61 H (0-1.0) k/uL Metamyelocytes # (Man) 0.73 H (0) k/uL Myelocytes # (Manual) 0.29 H (0) k/uL Sodium (137-145) mmol/L Chloride (98-107) mmol/L BUN (7-17) mg/dL Glucose (74-99) mg/dL POC Glucose (mg/dL) 219 H (70-110) mg/dL Calcium (8.4-10.2) mg/dL Phosphorus 1.8 L (2.5-4.5) mg/dL 04/26/24 04/26/24 04/26/24 Range/Units 05:54 06:38 11:52 WBC (3.8-10.6) k/uL RBC (3.80-5.40) m/uL Hgb (11.4-16.0) gm/dL Hct (34.0-46.0) % RDW (11.5-15.5) % Neutrophils # (Manual) (1.3-7.7) k/uL Monocytes # (Manual) (0-1.0) k/uL Metamyelocytes # (Man) (0) k/uL Myelocytes # (Manual) (0) k/uL Sodium 150 H (137-145) mmol/L Chloride 117 H (98-107) mmol/L BUN 30 H (7-17) mg/dL Glucose (74-99) mg/dL POC Glucose (mg/dL) 66 L 118 H (70-110) mg/dL Calcium 7.8 L (8.4-10.2) mg/dL Phosphorus (2.5-4.5) mg/dL
[2024-04-26 16:28] LABS: Glucose,Whole Blood 186 mg/dL (70-110)
[2024-04-26 21:16] LABS: Glucose,Whole Blood 171 mg/dL (70-110)
[2024-04-26] MEDS: INSULIN DETEMIR (LEVEMIR) 100 UNIT/ML SYR SQ SCH (21:17)
[2024-04-26 23:09] LABS: Glucose,Whole Blood 204 mg/dL (70-110)
[2024-04-27 02:11] LABS: Glucose,Whole Blood 147 mg/dL (70-110)
[2024-04-27 05:35] LABS: Glucose,Whole Blood 97 mg/dL (70-110)
[2024-04-27 06:46] LABS: Basophils % (A) 0 %; Eosinophils # (A) 0.2 k/uL (0-0.7); Eosinophils % (A) 3 %; HCT 24.2 % (34.0-46.0); HGB 7.5 gm/dL (11.4-16.0); Hypochromasia Moderate; Lymphocytes # (A) 1.5 k/uL (1.0-4.8); Lymphocytes % (A) 31 %; MCHC 31.1 g/dL (31.0-37.0); Mean Platelet Volume 8.3; Monocytes # (A) 0.2 k/uL (0-1.0); Monocytes % (A) 4 %; Neutrophils % (A) 60 %; Platelet Count 248 k/uL (150-450); RBC 2.51 m/uL (3.80-5.40); RDW 15.9 % (11.5-15.5)
[2024-04-27 06:47] LABS: MCV 96.4 fL (80.0-100.0)
[2024-04-27 06:52] LABS: African American GFR (CKD) 76 (>60 ml/min/1.73 sqM); Anion Gap 5 mmol/L; Blood Urea Nitrogen 32 mg/dL (7-17); Calcium 7.9 mg/dL (8.4-10.2); Carbon Dioxide 24 mmol/L (22-30); Chloride 111 mmol/L (98-107); Magnesium 2.1 mg/dL (1.6-2.3); Non-African American GFR(CKD) 66 (>60 ml/min/1.73 sqM); Potassium 4.1 mmol/L (3.5-5.1); Sodium 140 mmol/L (137-145)
[2024-04-27 06:57] LABS: Glucose 36 mg/dL (74-99)
[2024-04-27] MEDS: DEXTROSE 50% SYRINGE 50 ML IVP PRN (07:15)
[2024-04-27 07:53] LABS: Glucose,Whole Blood 95 mg/dL (70-110)
[2024-04-27] MEDS: ENOXAPARIN 40 MG/0.4 ML SYRINGE SQ SCH (09:19)
--- NOTE | 2024-04-27 11:25 | P.PN ---
Subjective Progress Note Date: 04/27/24 Principal diagnosis: Acute DKA This is a 64-year-old female patient, diabetic with poor compliance, comes in for another episode of DKA. She is altered and encephalopathic in the emergency department. She her blood sugars were above 600. Serum bicarb is less than 5, anion gap was more than 30. Sodium level is 142. WBC count 11.9 hemoglobin of 9.3 and a creatinine of 1.9. Noted she has had previous episodes of DKA, the patient was in the hospital March 2024 and she was hospitalized twice on that month for complications related to DKA. In the emergency, the patient was given 2 L of IV fluids. She currently she is on insulin drip running at 2.5 units an hour. Blood sugar is down to 138 and the patient will be switched to D5 half- normal saline. Subsequent blood work shows a gap of 27 and a serum bicarb of 13. Sodium levels at 147. She is on room air oxygen. Chest x-ray shows no acute abnormalities. CAT scan of the brain also done and shows no acute int racardiac intracranial abnormalities. There is encephalomalacia in bilateral occipital lobes consistent with old infarcts. Noted, the patient is supposed to be on Lantus insulin 25 units daily in addition to Tradjenta on outpatient basis. She has had previous episodes of UTI with Klebsiella pneumoniae on 03/30/2024, treated and a repeat UA is negative for any infection. Urine drug screen is negative. Alcohol level is less than 10. Patient was today on 04/26/2024, patient remains in the ICU, she is recovering quite nicely from her acute diabetic ketoacidosis, patient is doing well, does n ot seem to be in any distress. WBC count is 14.6 hemoglobin is 8.1 sodium is elevated at 150 potassium 3.6 BUN is 30 creatinine is 0.79. Patient is slightly confused, but she is not in any form of respiratory distress Patient was seen 04/27/2024, remains in the ICU as an overflow, patient is doing great, asymptomatic, on room air, not in any distress. Some vague abdominal discomfort and some nausea but no vomiting. No fever no chills no hemoptysis no chest pain no shortness of breath. No diarrhea.WBC count today is 5 hemoglobin 7.5 basic metabolic profile is normal bicarb is 24 BUN is normal creatinine is normal Objective - Vital Signs Vital signs: Vital Signs Temp 98.0 F 04/27/24 02:00 Pulse 65 04/27/24 02:00 Resp 14 04/27/24 02:00 BP 122/70 04/27/24 02:00 Pulse Ox 96 04/27/24 02:00 FiO2 Intake & Output 04/26/24 04/27/24 04/27/24 18:59 06:59 18:59 Intake Total 100 600 Output Total 120 200 Balance -20 400 Weight 52.2 kg Intake: Intake, IV Titration 100 600 Amount Dextrose 5% in Water 1, 100 600 000 ml @ 50 mls/hr IV . Q20H ONE Rx#:[id number] Output: Urine 120 200 Other: Voiding Method Indwelling Catheter Indwelling Catheter - Exam General Appearance: 64-year-old female in no distress, on room air. Neck HEENT: Supple, no neck masses no JVD no stridor. Lungs: Clear throughout no crackles rhonchi or wheezes Chest Wall: No deformities symmetrical chest expansion Heart: Regular rate and rhythm, S1, S2 normal, no murmur, rub or gallop.. Abdomen: Soft, non-tender, bowel sounds active all four quadrants, no masses, no organomegaly. Extremities: No clubbing edema or cyanosis Pulses: Good pulses bilaterally Skin: No rashes Neurologic: Alert oriented x 3, no gross focal neurologic deficit Psychiatric: Normal mood affect and no mental status examination - Labs CBC & Chem 7: 04/27/24 05:58 04/27/24 05:41 Labs: Abnormal Lab Results - Last 24 Hours (Table) 04/26/24 04/26/24 04/26/24 Range/Units 11:52 16:27 21:14 RBC (3.80-5.40) m/uL Hgb (11.4-16.0) gm/dL Hct (34.0-46.0) % RDW (11.5-15.5) % Chloride (98-107) mmol/L BUN (7-17) mg/dL Glucose (74-99) mg/dL POC Glucose (mg/dL) 118 H 186 H 171 H (70-110) mg/dL Calcium (8.4-10.2) mg/dL 04/26/24 04/27/24 04/27/24 Range/Units 23:07 02:10 05:41 RBC (3.80-5.40) m/uL Hgb (11.4-16.0) gm/dL Hct (34.0-46.0) % RDW (11.5-15.5) % Chloride 111 H (98-107) mmol/L BUN 32 H (7-17) mg/dL Glucose 36 L* (74-99) mg/dL POC Glucose (mg/dL) 204 H 147 H (70-110) mg/dL Calcium 7.9 L (8.4-10.2) mg/dL 11 Range/Units 05:58 RBC 2.51 L (3.80-5.40) m/uL Hgb 7.5 L (11.4-16.0) gm/dL Hct 24.2 L (34.0-46.0) % RDW 15.9 H (11.5-15.5) % Chloride (98-107) mmol/L BUN (7-17) mg/dL Glucose (74-99) mg/dL POC Glucose (mg/dL) (70-110) mg/dL Calcium (8.4-10.2) mg/dL Assessment and Plan Assessment: Impression Acute DKA, resolved Acute anion gap metabolic acidosis secondary to above, resolved Acute metabolic encephalopathy Hypernatremia secondary to free water deficit, will treat with D5W and free water, resolved Remote history of DVT History of renal cell carcinoma and previous partial right-sided nephrectomy Hypothyroidism History of underlying COPD Diabetic peripheral neuropathy Peripheral vessel occlusive disease History of depression 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
[2024-04-27 11:41] LABS: Glucose,Whole Blood 36 mg/dL (70-110)
[2024-04-27 11:43] LABS: Glucose,Whole Blood 39 mg/dL (70-110)
[2024-04-27 12:12] LABS: Glucose,Whole Blood 69 mg/dL (70-110)
[2024-04-27 12:32] LABS: Glucose,Whole Blood 80 mg/dL (70-110)
[2024-04-27 14:04] LABS: Glucose,Whole Blood 120 mg/dL (70-110)
--- NOTE | 2024-04-27 14:27 | P.PN ---
Subjective Progress Note Date: 04/27/24 Interval History: History of present illness; patient 64-year-old lady with past medical history significant for hypertension, hyperlipidemia, PVD, rheumatoid arthritis, diabetes who presented to the ER for altered mental status. Patient has similar admissions in the past with similar complaints at which time she was found to be in DKA. Patient was brought to the ER because of altered mental status. Family found patient to be confused. Blood sugar was checked and was found to be greater than 600. Patient had no obvious trauma. There was no complaint of weakness of any extremity. There is no complaint of slurred speech. There is no complaint of shortness of breath or chest pain. Because of altered mental status, patient brought to the ED Initial lab work done in the ER showed WBC 11.9, hemoglobin 9.3, platelet count 429, sodium 142, potassium 4.7, BUN 45, creatinine 1.93 glucose 06/17/2005, AST 15, ALT 10, alk phos 173, UA negative for infection Urine drug screen negative Serum alcohol less than 10, acetone positive EKG done in the ER showed heart rate of112 , no ST segment elevation or depression seen, no T-wave inversions seen. Chest x-ray done in the ER showed calcified granuloma at left lung base CT head done showed no acute intracranial process Patient admitted to internal medicine service 04/26/24 Patient was seen and examined today, more awake and alert today, still mild confusion, complains of left sided jaw pain, missing dentures. Afebrile, heart rate 71, respiratory rate 14, blood pressure 99/66, saturating 96% on room air. No new labs from today. 04/27/2024 Patient was seen and examined today, more awake and alert today and O x 3. Left-sided jaw pain is improving. Complains of generalized body ache. Currently on room air. Remained afebrile, vital stable. WBCs 5.0, hemoglobin 7.5, BUN 24, normal creatinine. Blood sugar was low today, decreased Lantus dose. Assessment and plan: Acute metabolic encephalopathy--improved DKA--resolved Hypoglycemia Acute kidney injury History of coronary artery disease History of CHF hypothyroidism hyperlipidemia COPD Peripheral vascular disease Hypertension Initially treated with insulin drip per DKA protocol, IV fluids, serial glucose monitoring and serial electrolyte monitoring Now switched to subcutaneous long-acting insulin and Humalog. ICU consulted Continue home bronchodilators Resume home meds PT/OT consult. DVT prophylaxis: Lovenox Monitor vital signs and labs Labs and medication were reviewed. Continue same treatment. Further recommendations as per clinical course of the patient PHYSICAL EXAMINATION: GENERAL: The patient is A&O x2-3, NAD HEENT: EOMI, Sclerae anicteric, Moist Mucous membranes Neck: Supple, Non tender, No JVD PULMONARY: Equal breath souds B/L, No wheezing, No crackles. CARDIOVASCULAR: S1, S2 present. No murmurs, rubs, or gallops. ABDOMEN: Soft, nontender, nondistended, normoactive bowel sounds. No guarding or rebound tenderness. MUSCULOSKELETAL: No edema, No cyanosis. No clubbing. Normal ROM. Intact peripheral pulses. NEUROLOGICAL: CN 2-12 grossly intact. No FND Skin: No Rash REVIEW OF SYSTEMS: Review of system due to mild confusion. Complains of left jaw pain. Dictation was produced using [employer] dictation software. please excuse any grammatical, word or spelling errors. Objective - Vital Signs Vital signs: Vital Signs Temp 97.9 F 04/27/24 08:00 Pulse 67 04/27/24 08:00 Resp 18 04/27/24 08:00 BP 132/69 04/27/24 08:00 Pulse Ox 97 04/27/24 08:00 FiO2 Intake & Output 04/26/24 04/27/24 04/27/24 18:59 06:59 18:59 Intake Total 100 600 Output Total 120 200 Balance -20 400 Weight 52.2 kg Intake: Intake, IV Titration 100 600 Amount Dextrose 5% in Water 1, 100 600 000 ml @ 50 mls/hr IV . Q20H ONE Rx#:[id number] Output: Urine 120 200 Other: Voiding Method Indwelling Catheter Indwelling Catheter - Labs CBC & Chem 7: 04/27/24 05:58 04/27/24 05:41 Labs: Abnormal Lab Results - Last 24 Hours (Table) 04/26/24 04/26/24 04/26/24 Range/Units 16:27 21:14 23:07 RBC (3.80-5.40) m/uL Hgb (11.4-16.0) gm/dL Hct (34.0-46.0) % RDW (11.5-15.5) % Chloride (98-107) mmol/L BUN (7-17) mg/dL Glucose (74-99) mg/dL POC Glucose (mg/dL) 186 H 171 H 204 H (70-110) mg/dL Calcium (8.4-10.2) mg/dL 04/27/24 04/27/24 04/27/24 Range/Units 02:10 05:41 05:58 RBC 2.51 L (3.80-5.40) m/uL Hgb 7.5 L (11.4-16.0) gm/dL Hct 24.2 L (34.0-46.0) % RDW 15.9 H (11.5-15.5) % Chloride 111 H (98-107) mmol/L BUN 32 H (7-17) mg/dL Glucose 36 L* (74-99) mg/dL POC Glucose (mg/dL) 147 H (70-110) mg/dL Calcium 7.9 L (8.4-10.2) mg/dL 04/27/24 04/27/24 04/27/24 Range/Units 11:40 11:41 12:10 RBC (3.80-5.40) m/uL Hgb (11.4-16.0) gm/dL Hct (34.0-46.0) % RDW (11.5-15.5) % Chloride (98-107) mmol/L BUN (7-17) mg/dL Glucose (74-99) mg/dL POC Glucose (mg/dL) 36 L* 39 L* 69 L (70-110) mg/dL Calcium (8.4-10.2) mg/dL 04/27/24 Range/Units 14:03 RBC (3.80-5.40) m/uL Hgb (11.4-16.0) gm/dL Hct (34.0-46.0) % RDW (11.5-15.5) % Chloride (98-107) mmol/L BUN (7-17) mg/dL Glucose (74-99) mg/dL POC Glucose (mg/dL) 120 H (70-110) mg/dL Calcium (8.4-10.2) mg/dL
[2024-04-27 16:51] LABS: Glucose,Whole Blood 89 mg/dL (70-110)
[2024-04-27 20:11] LABS: Glucose,Whole Blood 146 mg/dL (70-110)
[2024-04-27] MEDS ORDERED: INSULIN DETEMIR (LEVEMIR) 100 UNIT/ML SYR SQ SCH (21:00)
[2024-04-27] MEDS: INSULIN DETEMIR (LEVEMIR) 100 UNIT/ML SYR SQ SCH (22:29)
[2024-04-27 23:32] LABS: Glucose,Whole Blood 110 mg/dL (70-110)
[2024-04-28 03:19] LABS: Glucose,Whole Blood 53 mg/dL (70-110)
[2024-04-28 04:26] LABS: Glucose,Whole Blood 51 mg/dL (70-110)
[2024-04-28 04:44] LABS: Glucose,Whole Blood 89 mg/dL (70-110)
[2024-04-28 06:08] LABS: Glucose,Whole Blood 114 mg/dL (70-110)
[2024-04-28 06:12] LABS: African American GFR (CKD) 83 (>60 ml/min/1.73 sqM); Anion Gap 1 mmol/L; Blood Urea Nitrogen 28 mg/dL (7-17); Calcium 7.5 mg/dL (8.4-10.2); Carbon Dioxide 26 mmol/L (22-30); Chloride 108 mmol/L (98-107); Glucose 118 mg/dL (74-99); Non-African American GFR(CKD) 72 (>60 ml/min/1.73 sqM); Potassium 4.4 mmol/L (3.5-5.1); Sodium 135 mmol/L (137-145)
[2024-04-28 06:47] LABS: HCT 25.9 % (34.0-46.0); HGB 8.1 gm/dL (11.4-16.0); Hypochromasia Slight; MCHC 31.1 g/dL (31.0-37.0); MCV 96.5 fL (80.0-100.0); Mean Platelet Volume 9.8; Platelet Count 206 k/uL (150-450); RBC 2.68 m/uL (3.80-5.40); RDW 15.7 % (11.5-15.5)
[2024-04-28 08:23] LABS: Band Neutrophils % 1 %; Eosinophils # (M) 0.25 k/uL (0-0.7); Lymphocytes # (M) 1.25 k/uL (1.0-4.8); Monocytes # (M) 0.25 k/uL (0-1.0); Neutrophils % (M) 65 %; Nucleated Red Blood Cells 0 /100 WBC (0-0); Total Cells Counted 200
[2024-04-28 10:11] LABS: Glucose,Whole Blood 111 mg/dL (70-110)
[2024-04-28 11:35] LABS: Glucose,Whole Blood 77 mg/dL (70-110)
--- NOTE | 2024-04-28 12:08 | P.PN ---
Subjective Progress Note Date: 04/28/24 Principal diagnosis: Acute DKA This is a 64-year-old female patient, diabetic with poor compliance, comes in for another episode of DKA. She is altered and encephalopathic in the emergency department. She her blood sugars were above 600. Serum bicarb is less than 5, anion gap was more than 30. Sodium level is 142. WBC count 11.9 hemoglobin of 9.3 and a creatinine of 1.9. Noted she has had previous episodes of DKA, the patient was in the hospital March 2024 and she was hospitalized twice on that month for complications related to DKA. In the emergency, the patient was given 2 L of IV fluids. She currently she is on insulin drip running at 2.5 units an hour. Blood sugar is down to 138 and the patient will be switched to D5 half- normal saline. Subsequent blood work shows a gap of 27 and a serum bicarb of 13. Sodium levels at 147. She is on room air oxygen. Chest x-ray shows no acute abnormalities. CAT scan of the brain also done and shows no acute int racardiac intracranial abnormalities. There is encephalomalacia in bilateral occipital lobes consistent with old infarcts. Noted, the patient is supposed to be on Lantus insulin 25 units daily in addition to Tradjenta on outpatient basis. She has had previous episodes of UTI with Klebsiella pneumoniae on 03/30/2024, treated and a repeat UA is negative for any infection. Urine drug screen is negative. Alcohol level is less than 10. Patient was today on 04/26/2024, patient remains in the ICU, she is recovering quite nicely from her acute diabetic ketoacidosis, patient is doing well, does n ot seem to be in any distress. WBC count is 14.6 hemoglobin is 8.1 sodium is elevated at 150 potassium 3.6 BUN is 30 creatinine is 0.79. Patient is slightly confused, but she is not in any form of respiratory distress Patient was seen 04/27/2024, remains in the ICU as an overflow, patient is doing great, asymptomatic, on room air, not in any distress. Some vague abdominal discomfort and some nausea but no vomiting. No fever no chills no hemoptysis no chest pain no shortness of breath. No diarrhea.WBC count today is 5 hemoglobin 7.5 basic metabolic profile is normal bicarb is 24 BUN is normal creatinine is normal Seen today on 04/28/2024, patient is doing great, asymptomatic, awaiting transfer to a regular medical floor, in the meantime I believe the primary care admitting physician could consider discharging the patient home since no bed has been available on the floor for the last few days, her DKA has resolved, patient could be considered for discharge planning. Objective - Vital Signs Vital signs: Vital Signs Temp 98.0 F 04/28/24 08:00 Pulse 68 04/28/24 08:00 Resp 18 04/28/24 01:50 BP 110/72 04/28/24 08:00 Pulse Ox 95 04/28/24 01:50 FiO2 Intake & Output 04/27/24 04/28/24 04/28/24 18:59 06:59 18:59 Intake Total 500 300 Output Total 300 500 Balance 200 -200 Intake: Oral 500 300 Output: Urine 300 500 Other: Voiding Method Indwelling Catheter Indwelling Catheter - Exam General Appearance: 64-year-old female in no distress, on room air. Neck HEENT: Supple, no neck masses no JVD no stridor. Lungs: Clear throughout no crackles rhonchi or wheezes Chest Wall: No deformities symmetrical chest expansion Heart: Regular rate and rhythm, S1, S2 normal, no murmur, rub or gallop.. Abdomen: Soft, non-tender, bowel sounds active all four quadrants, no masses, no organomegaly. Extremities: No clubbing edema or cyanosis Pulses: Good pulses bilaterally Skin: No rashes Neurologic: Alert oriented x 3, no gross focal neurologic deficit Psychiatric: Normal mood affect and no mental status examination - Labs CBC & Chem 7: 04/28/24 05:32 04/28/24 05:32 Labs: Abnormal Lab Results - Last 24 Hours (Table) 04/27/24 04/27/24 04/27/24 Range/Units 12:10 14:03 20:10 RBC (3.80-5.40) m/uL Hgb (11.4-16.0) gm/dL Hct (34.0-46.0) % RDW (11.5-15.5) % Sodium (137-145) mmol/L Chloride (98-107) mmol/L BUN (7-17) mg/dL Glucose (74-99) mg/dL POC Glucose (mg/dL) 69 L 120 H 146 H (70-110) mg/dL Calcium (8.4-10.2) mg/dL 04/28/24 04/28/24 04/28/24 Range/Units 03:17 04:15 05:32 RBC 2.68 L (3.80-5.40) m/uL Hgb 8.1 L (11.4-16.0) gm/dL Hct 25.9 L (34.0-46.0) % RDW 15.7 H (11.5-15.5) % Sodium (137-145) mmol/L Chloride (98-107) mmol/L BUN (7-17) mg/dL Glucose (74-99) mg/dL POC Glucose (mg/dL) 53 L 51 L (70-110) mg/dL Calcium (8.4-10.2) mg/dL 04/28/24 04/28/24 04/28/24 Range/Units 05:32 06:07 10:09 RBC (3.80-5.40) m/uL Hgb (11.4-16.0) gm/dL Hct (34.0-46.0) % RDW (11.5-15.5) % Sodium 135 L (137-145) mmol/L Chloride 108 H (98-107) mmol/L BUN 28 H (7-17) mg/dL Glucose 118 H (74-99) mg/dL POC Glucose (mg/dL) 114 H 111 H (70-110) mg/dL Calcium 7.5 L (8.4-10.2) mg/dL Assessment and Plan Assessment: Impression Acute DKA, resolved Acute anion gap metabolic acidosis secondary to above, resolved Acute metabolic encephalopathy Hypernatremia secondary to free water deficit, will treat with D5W and free water, resolved Remote history of DVT History of renal cell carcinoma and previous partial right-sided nephrectomy Hypothyroidism History of underlying COPD Diabetic peripheral neuropathy Peripheral vessel occlusive disease History of depression 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
--- NOTE | 2024-04-28 14:04 | P.PN ---
Subjective Progress Note Date: 04/28/24 Interval History: History of present illness; patient 64-year-old lady with past medical history significant for hypertension, hyperlipidemia, PVD, rheumatoid arthritis, diabetes who presented to the ER for altered mental status. Patient has similar admissions in the past with similar complaints at which time she was found to be in DKA. Patient was brought to the ER because of altered mental status. Family found patient to be confused. Blood sugar was checked and was found to be greater than 600. Patient had no obvious trauma. There was no complaint of weakness of any extremity. There is no complaint of slurred speech. There is no complaint of shortness of breath or chest pain. Because of altered mental status, patient brought to the ED Initial lab work done in the ER showed WBC 11.9, hemoglobin 9.3, platelet count 429, sodium 142, potassium 4.7, BUN 45, creatinine 1.93 glucose 06/17/2005, AST 15, ALT 10, alk phos 173, UA negative for infection Urine drug screen negative Serum alcohol less than 10, acetone positive EKG done in the ER showed heart rate of112 , no ST segment elevation or depression seen, no T-wave inversions seen. Chest x-ray done in the ER showed calcified granuloma at left lung base CT head done showed no acute intracranial process Patient admitted to internal medicine service 04/26/24 Patient was seen and examined today, more awake and alert today, still mild confusion, complains of left sided jaw pain, missing dentures. Afebrile, heart rate 71, respiratory rate 14, blood pressure 99/66, saturating 96% on room air. No new labs from today. 04/27/2024 Patient was seen and examined today, more awake and alert today and O x 3. Left-sided jaw pain is improving. Complains of generalized body ache. Currently on room air. Remained afebrile, vital stable. WBCs 5.0, hemoglobin 7.5, BUN 24, normal creatinine. Blood sugar was low today, decreased Lantus dose. 04/28/2024 Patient was seen and examined today. Patient feeling better today. Alert and oriented x 3. Blood sugars are controlled. Afebrile, heart rate 68, respiratory rate 18, blood pressure 110/72, saturating 95% on room air. Assessment and plan: Acute metabolic encephalopathy--improved DKA--resolved Hypoglycemia Acute kidney injury History of coronary artery disease History of CHF hypothyroidism hyperlipidemia COPD Peripheral vascular disease Hypertension Initially treated with insulin drip per DKA protocol, IV fluids, serial glucose monitoring and serial electrolyte monitoring Now switched to subcutaneous long-acting insulin and Humalog. Blood sugars closely, Lantus dose was decreased due to low blood sugars. ICU consulted Continue home bronchodilators Resume home meds PT/OT consult DVT prophylaxis: Lovenox Monitor vital signs and labs Labs and medication were reviewed. Continue same treatment. Further recommendations as per clinical course of the patient PHYSICAL EXAMINATION: GENERAL: The patient is A&O x2-3, NAD HEENT: EOMI, Sclerae anicteric, Moist Mucous membranes Neck: Supple, Non tender, No JVD PULMONARY: Equal breath souds B/L, No wheezing, No crackles. CARDIOVASCULAR: S1, S2 present. No murmurs, rubs, or gallops. ABDOMEN: Soft, nontender, nondistended, normoactive bowel sounds. No guarding or rebound tenderness. MUSCULOSKELETAL: No edema, No cyanosis. No clubbing. Normal ROM. Intact peripheral pulses. NEUROLOGICAL: CN 2-12 grossly intact. No FND Skin: No Rash REVIEW OF SYSTEMS: Review of system due to mild confusion. Complains of left jaw pain. Dictation was produced using [employer] dictation software. please excuse any gram matical, word or spelling errors. Objective - Vital Signs Vital signs: Vital Signs Temp 98.0 F 04/28/24 08:00 Pulse 68 04/28/24 08:00 Resp 18 04/28/24 01:50 BP 110/72 04/28/24 08:00 Pulse Ox 95 04/28/24 01:50 FiO2 Intake & Output 04/27/24 04/28/24 04/28/24 18:59 06:59 18:59 Intake Total 500 300 Output Total 300 500 Balance 200 -200 Intake: Oral 500 300 Output: Urine 300 500 Other: Voiding Method Indwelling Catheter Indwelling Catheter - Labs CBC & Chem 7: 04/28/24 05:32 04/28/24 05:32 Labs: Abnormal Lab Results - Last 24 Hours (Table) 04/27/24 04/27/24 04/28/24 Range/Units 14:03 20:10 03:17 RBC (3.80-5.40) m/uL Hgb (11.4-16.0) gm/dL Hct (34.0-46.0) % RDW (11.5-15.5) % Sodium (137-145) mmol/L Chloride (98-107) mmol/L BUN (7-17) mg/dL Glucose (74-99) mg/dL POC Glucose (mg/dL) 120 H 146 H 53 L (70-110) mg/dL Calcium (8.4-10.2) mg/dL 04/28/24 04/28/24 04/28/24 Range/Units 04:15 05:32 05:32 RBC 2.68 L (3.80-5.40) m/uL Hgb 8.1 L (11.4-16.0) gm/dL Hct 25.9 L (34.0-46.0) % RDW 15.7 H (11.5-15.5) % Sodium 135 L (137-145) mmol/L Chloride 108 H (98-107) mmol/L BUN 28 H (7-17) mg/dL Glucose 118 H (74-99) mg/dL POC Glucose (mg/dL) 51 L (70-110) mg/dL Calcium 7.5 L (8.4-10.2) mg/dL 04/28/24 04/28/24 Range/Units 06:07 10:09 RBC (3.80-5.40) m/uL Hgb (11.4-16.0) gm/dL Hct (34.0-46.0) % RDW (11.5-15.5) % Sodium (137-145) mmol/L Chloride (98-107) mmol/L BUN (7-17) mg/dL Glucose (74-99) mg/dL POC Glucose (mg/dL) 114 H 111 H (70-110) mg/dL Calcium (8.4-10.2) mg/dL
[2024-04-28 16:09] LABS: Glucose,Whole Blood 98 mg/dL (70-110)
[2024-04-28 20:24] LABS: Glucose,Whole Blood 191 mg/dL (70-110)
[2024-04-29 01:34] LABS: Glucose,Whole Blood 75 mg/dL (70-110)
[2024-04-29 02:06] LABS: Glucose,Whole Blood 96 mg/dL (70-110)
[2024-04-29 07:07] LABS: Glucose,Whole Blood 55 mg/dL (70-110)
[2024-04-29 07:37] LABS: Glucose,Whole Blood 46 mg/dL (70-110)
[2024-04-29 07:59] LABS: Glucose,Whole Blood 58 mg/dL (70-110)
[2024-04-29] MEDS: BENZOCAINE/MENTHOL LOZENG 1 EACH LOZENGE MUCOUS MEM PRN (08:00)
[2024-04-29 08:20] LABS: Glucose,Whole Blood 47 mg/dL (70-110)
[2024-04-29] MEDS ORDERED: DEXTROSE 50% SYRINGE 50 ML IVP PRN ×2 (08:36)
[2024-04-29 09:07] LABS: Glucose,Whole Blood 83 mg/dL (70-110)
[2024-04-29 10:59] LABS: Basophils # (A) 0.02 X 10*3/uL (0.00-0.10); Basophils % (A) 0.4 %; Eosinophils # (A) 0.19 X 10*3/uL (0.04-0.35); Eosinophils % (A) 3.4 %; HCT 27.6 % (37.2-46.3); HGB 8.7 g/dL (12.0-15.0); Lymphocytes # (A) 1.45 X 10*3/uL (0.90-5.00); Lymphocytes % (A) 26.3 %; MCH 29.6 pg (27.0-32.0); MCHC 31.5 g/dL (32.0-37.0); MCV 93.9 FL (80.0-97.0); Monocytes # (A) 0.37 X 10*3/uL (0.20-1.00); Monocytes % (A) 6.7 %; NRBC Per 100 WBC 0.02 X 10*3/uL (0.00-0.01); Neutrophils # (A) 3.45 X 10*3/uL (1.80-7.70); Neutrophils % (A) 62.5 %; Platelet Count 243 X 10*3/uL (140-440); RBC 2.94 X 10*6/uL (4.10-5.20); RDW 15.1 % (11.5-14.5); WBC 5.52 X 10*3/uL (4.50-10.00)
[2024-04-29 11:15] LABS: BUN/Creat Ratio 20.44 Ratio (12.00-20.00); Blood Urea Nitrogen 18.4 mg/dL (9.0-27.0); Calcium 7.9 mg/dL (8.7-10.3); Carbon Dioxide 25.3 mmol/L (21.6-31.8); Chloride 105 mmol/L (96-109); Glucose 28 mg/dL (70-110); Potassium 4.5 mmol/L (3.5-5.5); Sodium 140 mmol/L (135-145)
--- NOTE | 2024-04-29 11:17 | P.PN ---
Subjective Progress Note Date: 04/29/24 This is a 64-year-old female patient, diabetic with poor compliance, comes in for another episode of DKA. She is altered and encephalopathic in the emergency department. She her blood sugars were above 600. Serum bicarb is less than 5, anion gap was more than 30. Sodium level is 142. WBC count 11.9 hemoglobin of 9.3 and a creatinine of 1.9. Noted she has had previous episodes of DKA, the patient was in the hospital March 2024 and she was hospitalized twice on that month for complications related to DKA. In the emergency, the patient was given 2 L of IV fluids. She currently she is on insulin drip running at 2.5 units an hour. Blood sugar is down to 138 and the patient will be switched to D5 half- normal saline. Subsequent blood work shows a gap of 27 and a serum bicarb of 13. Sodium levels at 147. She is on room air oxygen. Chest x-ray shows no acute abnormalities. CAT scan of the brain also done and shows no acute intracardiac intracranial abnormalities. There is encephalomalacia in bilateral occipital lobes consistent with old infarcts. Noted, the patient is supposed to be on Lantus insulin 25 units daily in addition to Tradjenta on outpatient basis. She has had previous episodes of UTI with Klebsiella pneumoniae on 03/30/2024, treated and a repeat UA is negative for any infection. Urine drug screen is negative. Alcohol level is less than 10. Patient was today on 04/26/2024, patient remains in the ICU, she is recovering quite nicely from her acute diabetic ketoacidosis, patient is doing well, does not seem to be in any distress. WBC count is 14.6 hemoglobin is 8.1 sodium is elevated at 150 potassium 3.6 BUN is 30 creatinine is 0.79. Patient is slightly confused, but she is not in any form of respiratory distress Patient was seen 04/27/2024, remains in the ICU as an overflow, patient is doing great, asymptomatic, on room air, not in any distress. Some vague abdominal discomfort and some nausea but no vomiting. No fever no chills no hemoptysis no chest pain no shortness of breath. No diarrhea.WBC count today is 5 hemoglobin 7.5 basic metabolic profile is normal bicarb is 24 BUN is normal creatinine is normal Seen today on 04/28/2024, patient is doing great, asymptomatic, awaiting transfer to a regular medical floor, in the meantime I believe the primary care admitting physician could consider discharging the patient home since no bed has been available on the floor for the last few days, her DKA has resolved, patient could be considered for discharge planning. The patient is seen today April 29, 2024 in follow-up on the regular medical floor. She was transferred out of the intensive care unit. She is currently sitting up in a chair at the bedside. Awake and alert in no acute distress. She is on room air. She has been afebrile. Hemodynamically stable. Still having issues with episodes of hypoglycemia. Current glucose 83. She remains on Levemir and NovoLog sliding scale. White count 5.5. Hemoglobin 8.7. Platelets 243. Objective - Vital Signs Vital signs: Vital Signs Temp 97.7 F 04/29/24 07:24 Pulse 84 04/29/24 07:24 Resp 18 04/29/24 07:24 BP 146/73 04/29/24 07:24 Pulse Ox 93 L 04/29/24 07:24 FiO2 Intake & Output 04/28/24 04/29/24 04/29/24 18:59 06:59 18:59 Intake Total 600 Output Total 300 300 Balance 300 -300 Intake: Oral 600 Output: Urine 300 300 Other: Voiding Method Indwelling Catheter External Catheter - Exam GENERAL EXAM: Alert, 64-year-old female, up in a chair, on room air, comfortable in no apparent distress. HEAD: Normocephalic. EYES: Normal reaction of pupils, equal size. NOSE: Clear with pink turbinates. THROAT: No erythema or exudates. NECK: No masses, no JVD. CHEST: No chest wall deformity. LUNGS: Equal air entry with no crackles, wheeze, rhonchi or dullness. CVS: S1 and S2 normal with no audible murmur, regular rhythm. ABDOMEN: No hepatosplenomegaly, normal bowel sounds, no guarding or rigidity. SPINE: No scoliosis or deformity SKIN: No rashes CENTRAL NERVOUS SYSTEM: No focal deficits, tone is normal in all 4 extremities. EXTREMITIES: There is no peripheral edema. No clubbing, no cyanosis. P eripheral pulses are intact. - Labs CBC & Chem 7: 04/29/24 06:41 04/28/24 05:32 Labs: Abnormal Lab Results - Last 24 Hours (Table) 04/28/24 04/29/24 04/29/24 Range/Units 20:23 06:41 07:06 RBC 2.94 L (4.10-5.20) X 10*6/uL Hgb 8.7 L (12.0-15.0) g/dL Hct 27.6 L (37.2-46.3) % MCHC 31.5 L (32.0-37.0) g/dL RDW 15.1 H (11.5-14.5) % NRBC/100 WBC Diff 0.02 H (0.00-0.01) X 10*3/uL POC Glucose (mg/dL) 191 H 55 L (70-110) mg/dL 04/29/24 04/29/24 04/29/24 Range/Units 07:36 07:58 08:19 RBC (4.10-5.20) X 10*6/uL Hgb (12.0-15.0) g/dL Hct (37.2-46.3) % MCHC (32.0-37.0) g/dL RDW (11.5-14.5) % NRBC/100 WBC Diff (0.00-0.01) X 10*3/uL POC Glucose (mg/dL) 46 L* 58 L 47 L* (70-110) mg/dL Assessment and Plan Assessment: Acute DKA, resolved Acute anion gap metabolic acidosis secondary to above, resolved Acute metabolic encephalopathy Hypernatremia secondary to free water deficit, will treat with D5W and free water, resolved Remote history of DVT History of renal cell carcinoma and partial right-sided nephrectomy Hypothyroidism History of underlying COPD Diabetic peripheral neuropathy Peripheral vessel occlusive disease History of depression 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 Number of minutes spent on the visit: 24 Dictation was produced using Dragon dictation software. Please excuse any grammatical, word or spelling errors.
[2024-04-29 12:23] LABS: Glucose,Whole Blood 84 mg/dL (70-110)
--- NOTE | 2024-04-29 15:06 | P.PN ---
Subjective Progress Note Date: 04/29/24 patient 64-year-old lady with past medical history significant for hypertension, hyperlipidemia, PVD, rheumatoid arthritis, diabetes who presented to the ER for altered mental status. Patient has similar admissions in the past with similar complaints at which time she was found to be in DKA. Patient was brought to the ER because of altered mental status. Family found patient to be confused. Blood sugar was checked and was found to be greater than 600. Patient had no obvious trauma. There was no complaint of weakness of any extremity. There is no complaint of slurred speech. There is no complaint of shortness of breath or chest pain. Because of altered mental status, patient brought to the ED Initial lab work done in the ER showed WBC 11.9, hemoglobin 9.3, platelet count 429, sodium 142, potassium 4.7, BUN 45, creatinine 1.93 glucose 06/17/2005, AST 15, ALT 10, alk phos 173, UA negative for infection Urine drug screen negative Serum alcohol less than 10, acetone positive EKG done in the ER showed heart rate of112 , no ST segment elevation or depression seen, no T-wave inversions seen. Chest x-ray done in the ER showed calcified granuloma at left lung base CT head done showed no acute intracranial process Patient admitted to internal medicine service 04/26/24 Patient was seen and examined today, more awake and alert today, still mild confusion, complains of left sided jaw pain, missing dentures. Afebrile, heart rate 71, respiratory rate 14, blood pressure 99/66, saturating 96% on room air. No new labs from today. 04/27/2024 Patient was seen and examined today, more awake and alert today and O x 3. Left-sided jaw pain is improving. Complains of generalized body ache. Currently on room air. Remained afebrile, vital stable. WBCs 5.0, hemoglobin 7.5, BUN 24, normal creatinine. Blood sugar was low today, decreased Lantus dose. 04/28/2024 Patient was seen and examined today. Patient feeling better today. Alert and oriented x 3. Blood sugars are controlled. Afebrile, heart rate 68, respiratory rate 18, blood pressure 110/72, saturating 95% on room air. 04/29. Patient seen and examined. Blood sugars remain low, decrease Levemir to 10 units twice a day REVIEW OF SYSTEMS: CONSTITUTIONAL: No fever, no malaise,. CARDIOVASCULAR: No chest pain, no palpitations, no syncope. PULMONARY: No shortness of breath, no cough, GASTROINTESTINAL: No diarrhea, no nausea, no vomiting, no abdominal pain. NEUROLOGICAL: No headaches, no weakness, PHYSICAL EXAMINATION: GENERAL: The patient is alert HEENT: Pupils are round and equally reacting to light. EOMI. No scleral icterus. No conjunctival pallor. Normocephalic, atraumatic. No pharyngeal erythema. No thyromegaly. CARDIOVASCULAR: S1 and S2 present. No murmurs, rubs, or gallops. PULMONARY: Chest is clear to auscultation, no wheezing or crackles. ABDOMEN: Soft, nontender, nondistended, normoactive bowel sounds. No palpable organomegaly. MUSCULOSKELETAL: No joint swelling or deformity. EXTREMITIES: No cyanosis, clubbing, or pedal edema. NEUROLOGICAL: Gross neurological examination did not reveal any focal deficits. SKIN: No rashes. Assessment and plan Acute metabolic encephalopathy--improved DKA--resolved Hypoglycemia Acute kidney injury History of coronary artery disease History of CHF hypothyroidism hyperlipidemia COPD Peripheral vascular disease Hypertension Monitor vital signs Monitor CBC Monitor CMP Monitor blood sugar levels, continue sliding insulin Change Levemir to 10 units twice a day Continue aspirin Continue Synthroid Labs and medication were reviewed.. Continue same treatment. Continue with symptomatic treatment. Resume home medication. Monitor labs and vitals. DVT and GI prophylaxis. Further recommendations as per clinical course of the patient Dictation was produced using [employer] dictation software. please excuse any grammatical, word or spelling errors. Objective - Vital Signs Vital signs: Vital Signs Temp 98.1 F 04/29/24 12:25 Pulse 72 04/29/24 12:25 Resp 16 04/29/24 12:25 BP 120/78 04/29/24 12:25 Pulse Ox 95 04/29/24 12:25 FiO2 Intake & Output 04/28/24 04/29/24 04/29/24 18:59 06:59 18:59 Intake Total 600 Output Total 300 300 Balance 300 -300 Weight 52.2 kg Intake: Oral 600 Output: Urine 300 300 Other: Voiding Method Indwelling Catheter External Catheter Diaper External Catheter - Labs CBC & Chem 7: 04/29/24 06:41 04/29/24 06:41 Labs: Abnormal Lab Results - Last 24 Hours (Table) 04/28/24 04/29/24 04/29/24 Range/Units 20:23 06:41 06:41 RBC 2.94 L (4.10-5.20) X 10*6/uL Hgb 8.7 L (12.0-15.0) g/dL Hct 27.6 L (37.2-46.3) % MCHC 31.5 L (32.0-37.0) g/dL RDW 15.1 H (11.5-14.5) % NRBC/100 WBC Diff 0.02 H (0.00-0.01) X 10*3/uL BUN/Creatinine Ratio 20.44 H (12.00-20.00) Ratio Glucose 28 A* (70-110) mg/dL POC Glucose (mg/dL) 191 H (70-110) mg/dL Calcium 7.9 L (8.7-10.3) mg/dL 04/29/24 04/29/24 04/29/24 Range/Units 07:06 07:36 07:58 RBC (4.10-5.20) X 10*6/uL Hgb (12.0-15.0) g/dL Hct (37.2-46.3) % MCHC (32.0-37.0) g/dL RDW (11.5-14.5) % NRBC/100 WBC Diff (0.00-0.01) X 10*3/uL BUN/Creatinine Ratio (12.00-20.00) Ratio Glucose (70-110) mg/dL POC Glucose (mg/dL) 55 L 46 L* 58 L (70-110) mg/dL Calcium (8.7-10.3) mg/dL 04/29/24 Range/Units 08:19 RBC (4.10-5.20) X 10*6/uL Hgb (12.0-15.0) g/dL Hct (37.2-46.3) % MCHC (32.0-37.0) g/dL RDW (11.5-14.5) % NRBC/100 WBC Diff (0.00-0.01) X 10*3/uL BUN/Creatinine Ratio (12.00-20.00) Ratio Glucose (70-110) mg/dL POC Glucose (mg/dL) 47 L* (70-110) mg/dL Calcium (8.7-10.3) mg/dL
[2024-04-29 17:15] LABS: Glucose,Whole Blood 171 mg/dL (70-110)
[2024-04-29 20:09] LABS: Glucose,Whole Blood 213 mg/dL (70-110)
[2024-04-29] MEDS: INSULIN DETEMIR (LEVEMIR) 100 UNIT/ML SYR SQ SCH (20:21)
[2024-04-30 01:05] LABS: Glucose,Whole Blood 215 mg/dL (70-110)
[2024-04-30 07:00] LABS: Glucose,Whole Blood 96 mg/dL (70-110)
[2024-04-30] MEDS: NON FORMULARY DRUG (Insulin Glargine,Hum.Rec.Anlog [Lantus Solostar Pen] 100 UNIT/ML Insul SQ SCH (08:49)
[2024-04-30 08:53] LABS: Basophils # (A) 0.02 X 10*3/uL (0.00-0.10); Basophils % (A) 0.4 %; Eosinophils # (A) 0.16 X 10*3/uL (0.04-0.35); Eosinophils % (A) 3.2 %; HCT 26.1 % (37.2-46.3); HGB 8.1 g/dL (12.0-15.0); Lymphocytes # (A) 1.37 X 10*3/uL (0.90-5.00); MCV 93.5 FL (80.0-97.0); Mean Platelet Volume 10.8 FL (9.5-12.2); Monocytes # (A) 0.33 X 10*3/uL (0.20-1.00); Monocytes % (A) 6.5 %; NRBC Per 100 WBC 0 X 10*3/uL (0.00-0.01); Neutrophils % (A) 61.1 %; Platelet Count 247 X 10*3/uL (140-440); RBC 2.79 X 10*6/uL (4.10-5.20); RDW 15.1 % (11.5-14.5); WBC 5.07 X 10*3/uL (4.50-10.00)
[2024-04-30 09:24] LABS: Carbon Dioxide 25.3 mmol/L (21.6-31.8); Chloride 104 mmol/L (96-109); Glucose 83 mg/dL (70-110); Potassium 4.3 mmol/L (3.5-5.5); Sodium 138 mmol/L (135-145)
[2024-04-30 09:25] LABS: ALT 5 U/L (8-44); AST 12 U/L (13-35); Albumin 2.5 g/dL (3.8-4.9); Albumin/Globulin Ratio 1.19 Ratio (1.60-3.17); Alkaline Phosphatase 151 U/L (41-126); Globulin 2.1 g/dL (1.6-3.3); Total Bilirubin <0.2 mg/dL (0.3-1.2); Total Protein 4.6 g/dL (6.2-8.2)
--- NOTE | 2024-04-30 11:28 | P.PN ---
Subjective Progress Note Date: 04/30/24 This is a 64-year-old female patient, diabetic with poor compliance, comes in for another episode of DKA. She is altered and encephalopathic in the emergency department. She her blood sugars were above 600. Serum bicarb is less than 5, anion gap was more than 30. Sodium level is 142. WBC count 11.9 hemoglobin of 9.3 and a creatinine of 1.9. Noted she has had previous episodes of DKA, the patient was in the hospital March 2024 and she was hospitalized twice on that month for complications related to DKA. In the emergency, the patient was given 2 L of IV fluids. She currently she is on insulin drip running at 2.5 units an hour. Blood sugar is down to 138 and the patient will be switched to D5 half- normal saline. Subsequent blood work shows a gap of 27 and a serum bicarb of 13. Sodium levels at 147. She is on room air oxygen. Chest x-ray shows no acute abnormalities. CAT scan of the brain also done and shows no acute intracardiac intracranial abnormalities. There is encephalomalacia in bilateral occipital lobes consistent with old infarcts. Noted, the patient is supposed to be on Lantus insulin 25 units daily in addition to Tradjenta on outpatient basis. She has had previous episodes of UTI with Klebsiella pneumoniae on 03/30/2024, treated and a repeat UA is negative for any infection. Urine drug screen is negative. Alcohol level is less than 10. Patient was today on 04/26/2024, patient remains in the ICU, she is recovering quite nicely from her acute diabetic ketoacidosis, patient is doing well, does not seem to be in any distress. WBC count is 14.6 hemoglobin is 8.1 sodium is elevated at 150 potassium 3.6 BUN is 30 creatinine is 0.79. Patient is slightly confused, but she is not in any form of respiratory distress Patient was seen 04/27/2024, remains in the ICU as an overflow, patient is doing great, asymptomatic, on room air, not in any distress. Some vague abdominal discomfort and some nausea but no vomiting. No fever no chills no hemoptysis no chest pain no shortness of breath. No diarrhea.WBC count today is 5 hemoglobin 7.5 basic metabolic profile is normal bicarb is 24 BUN is normal creatinine is normal Seen today on 04/28/2024, patient is doing great, asymptomatic, awaiting transfer to a regular medical floor, in the meantime I believe the primary care admitting physician could consider discharging the patient home since no bed has been available on the floor for the last few days, her DKA has resolved, patient could be considered for discharge planning. The patient is seen today April 29, 2024 in follow-up on the regular medical floor. She was transferred out of the intensive care unit. She is currently sitting up in a chair at the bedside. Awake and alert in no acute distress. She is on room air. She has been afebrile. Hemodynamically stable. Still having issues with episodes of hypoglycemia. Current glucose 83. She remains on Levemir and NovoLog sliding scale. White count 5.5. Hemoglobin 8.7. Platelets 243. The patient is seen today April 30, 2024 in follow-up on the regular medical floor. She is awake and alert in no acute distress. Maintaining good O2 saturations in the 90s on room air. White count 5.0. Hemoglobin 8.1. Platelets 247. Sodium 138. Potassium 4.3. Bicarb 25. BUN 16. Creatinine 0.8. Glucose 83. She remains on a NovoLog sliding scale. No episodes of hypoglycemia overnight. Lovenox for DVT prophylaxis. Objective - Vital Signs Vital signs: Vital Signs Temp 97.7 F 04/30/24 07:28 Pulse 78 04/30/24 07:28 Resp 16 04/30/24 07:28 BP 143/87 04/30/24 07:28 Pulse Ox 96 04/30/24 07:28 FiO2 Intake & Output 04/29/24 04/30/24 04/30/24 18:59 06:59 18:59 Output Total 450 200 Balance -450 -200 Weight 52.2 kg Output: Urine 450 200 Other: Voiding Method Diaper Diaper Incontinent Incontinent External Catheter External Catheter # Voids 3 1 # Bowel Movements 0 - Exam GENERAL EXAM: Alert, 64-year-old female, resting in bed, on room air, in no apparent distress. HEAD: Normocephalic. EYES: Normal reaction of pupils, equal size. NOSE: Clear with pink turbinates. THROAT: No erythema or exudates. NECK: No masses, no JVD. CHEST: No chest wall deformity. LUNGS: Equal air entry with no crackles, wheeze, rhonchi or dullness. CVS: S1 and S2 normal with no audible murmur, regular rhythm. ABDOMEN: No hepatosplenomegaly, normal bowel sounds, no guarding or rigidity. SPINE: No scoliosis or deformity SKIN: No rashes CENTRAL NERVOUS SYSTEM: No focal deficits, tone is normal in all 4 extremities. EXTREMITIES: There is no peripheral edema. No clubbing, no cyanosis. Peripheral pulses are intact. - Labs CBC & Chem 7: 04/30/24 05:50 04/30/24 05:50 Labs: Abnormal Lab Results - Last 24 Hours (Table) 04/29/24 04/29/24 04/29/24 Range/Units 06:41 17:13 20:07 RBC (4.10-5.20) X 10*6/uL Hgb (12.0-15.0) g/dL Hct (37.2-46.3) % MCHC (32.0-37.0) g/dL RDW (11.5-14.5) % Immature Gran # (0.00-0.04) X 10*3/uL BUN/Creatinine Ratio 20.44 H (12.00-20.00) Ratio Glucose 28 A* (70-110) mg/dL POC Glucose (mg/dL) 171 H 213 H (70-110) mg/dL Calcium 7.9 L (8.7-10.3) mg/dL Total Bilirubin (0.3-1.2) mg/dL AST (13-35) U/L ALT (8-44) U/L Alkaline Phosphatase (41-126) U/L Total Protein (6.2-8.2) g/dL Albumin (3.8-4.9) g/dL Albumin/Globulin Ratio (1.60-3.17) Ratio 04/30/24 04/30/24 04/30/24 Range/Units 01:01 05:50 05:50 RBC 2.79 L (4.10-5.20) X 10*6/uL Hgb 8.1 L (12.0-15.0) g/dL Hct 26.1 L (37.2-46.3) % MCHC 31.0 L (32.0-37.0) g/dL RDW 15.1 H (11.5-14.5) % Immature Gran # 0.09 H (0.00-0.04) X 10*3/uL BUN/Creatinine Ratio (12.00-20.00) Ratio Glucose (70-110) mg/dL POC Glucose (mg/dL) 215 H (70-110) mg/dL Calcium 8.0 L (8.7-10.3) mg/dL Total Bilirubin <0.2 L (0.3-1.2) mg/dL AST 12 L (13-35) U/L ALT 5 L (8-44) U/L Alkaline Phosphatase 151 H (41-126) U/L Total Protein 4.6 L (6.2-8.2) g/dL Albumin 2.5 L (3.8-4.9) g/dL Albumin/Globulin Ratio 1.19 L (1.60-3.17) Ratio Assessment and Plan Assessment: Acute DKA, resolved Acute anion gap metabolic acidosis secondary to above, resolved Acute metabolic encephalopathy, resolved Hypernatremia secondary to free water deficit, will treat with D5W and free water, resolved Remote history of DVT History of renal cell carcinoma and partial right-sided nephrectomy Hypothyroidism History of underlying COPD Diabetic peripheral neuropathy Peripheral vessel occlusive disease History of depression 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 Number of minutes spent on the visit: 22 Dictation was produced using [employer] software. Please excuse any grammatical, word or spelling errors.
[2024-04-30 12:17] LABS: Glucose,Whole Blood 58 mg/dL (70-110)
[2024-04-30 12:37] LABS: Glucose,Whole Blood 63 mg/dL (70-110)
[2024-04-30 12:54] LABS: Glucose,Whole Blood 88 mg/dL (70-110)
--- NOTE | 2024-04-30 13:22 | P.PN ---
Subjective Progress Note Date: 04/30/24 patient 64-year-old lady with past medical history significant for hypertension, hyperlipidemia, PVD, rheumatoid arthritis, diabetes who presented to the ER for altered mental status. Patient has similar admissions in the past with similar complaints at which time she was found to be in DKA. Patient was brought to the ER because of altered mental status. Family found patient to be confused. Blood sugar was checked and was found to be greater than 600. Patient had no obvious trauma. There was no complaint of weakness of any extremity. There is no complaint of slurred speech. There is no complaint of shortness of breath or chest pain. Because of altered mental status, patient brought to the ED Initial lab work done in the ER showed WBC 11.9, hemoglobin 9.3, platelet count 429, sodium 142, potassium 4.7, BUN 45, creatinine 1.93 glucose 06/17/2005, AST 15, ALT 10, alk phos 173, UA negative for infection Urine drug screen negative Serum alcohol less than 10, acetone positive EKG done in the ER showed heart rate of112 , no ST segment elevation or depression seen, no T-wave inversions seen. Chest x-ray done in the ER showed calcified granuloma at left lung base CT head done showed no acute intracranial process Patient admitted to internal medicine service 04/26/24 Patient was seen and examined today, more awake and alert today, still mild confusion, complains of left sided jaw pain, missing dentures. Afebrile, heart rate 71, respiratory rate 14, blood pressure 99/66, saturating 96% on room air. No new labs from today. 04/27/2024 Patient was seen and examined today, more awake and alert today and O x 3. Left-sided jaw pain is improving. Complains of generalized body ache. Currently on room air. Remained afebrile, vital stable. WBCs 5.0, hemoglobin 7.5, BUN 24, normal creatinine. Blood sugar was low today, decreased Lantus dose. 04/28/2024 Patient was seen and examined today. Patient feeling better today. Alert and oriented x 3. Blood sugars are controlled. Afebrile, heart rate 68, respiratory rate 18, blood pressure 110/72, saturating 95% on room air. 04/29. Patient seen and examined. Blood sugars remain low, decrease Levemir to 10 units at night 04/30. Patient seen and examined. Levemir dose decreased to 8 units at night. Complaining of tooth pain. Continues to have poor appetite REVIEW OF SYSTEMS: CONSTITUTIONAL: No fever, no malaise,. CARDIOVASCULAR: No chest pain, no palpitations, no syncope. PULMONARY: No shortness of breath, no cough, GASTROINTESTINAL: No diarrhea, no nausea, no vomiting, no abdominal pain. NEUROLOGICAL: No headaches, no weakness, PHYSICAL EXAMINATION: GENERAL: The patient is alert HEENT: Pupils are round and equally reacting to light. EOMI. No scleral icterus. No conjunctival pallor. Normocephalic, atraumatic. No pharyngeal erythema. No thyromegaly. CARDIOVASCULAR: S1 and S2 present. No murmurs, rubs, or gallops. PULMONARY: Chest is clear to auscultation, no wheezing or crackles. ABDOMEN: Soft, nontender, nondistended, normoactive bowel sounds. No palpable organomegaly. MUSCULOSKELETAL: No joint swelling or deformity. EXTREMITIES: No cyanosis, clubbing, or pedal edema. NEUROLOGICAL: Gross neurological examination did not reveal any focal deficits. SKIN: No rashes. Assessment and plan Acute metabolic encephalopathy--improved DKA--resolved Hypoglycemia Acute kidney injury History of coronary artery disease History of CHF hypothyroidism hyperlipidemia COPD Peripheral vascular disease Hypertension Monitor vital signs Monitor CBC Monitor CMP Monitor blood sugar levels, continue sliding insulin Decrease Levemir to 8 units at night Continue aspirin Continue Synthroid Case management working on placement Labs and medication were reviewed.. Continue same treatment. Continue with symptomatic treatment. Resume home medication. Monitor labs and vitals. DVT and GI prophylaxis. Further recommendations as per clinical course of the patient Dictation was produced using [employer] dictation software. please excuse any grammatical, word or spelling errors. Objective - Vital Signs Vital signs: Vital Signs Temp 98.4 F 04/30/24 12:02 Pulse 74 04/30/24 12:02 Resp 14 04/30/24 12:02 BP 106/56 04/30/24 12:02 Pulse Ox 95 04/30/24 12:02 FiO2 Intake & Output 04/29/24 04/30/24 04/30/24 18:59 06:59 18:59 Output Total 450 200 Balance -450 -200 Weight 52.2 kg Output: Urine 450 200 Other: Voiding Method Diaper Diaper Incontinent Incontinent External Catheter External Catheter # Voids 3 1 # Bowel Movements 0 - Labs CBC & Chem 7: 04/30/24 05:50 04/30/24 05:50 Labs: Abnormal Lab Results - Last 24 Hours (Table) 04/29/24 04/29/24 04/30/24 Range/Units 17:13 20:07 01:01 RBC (4.10-5.20) X 10*6/uL Hgb (12.0-15.0) g/dL Hct (37.2-46.3) % MCHC (32.0-37.0) g/dL RDW (11.5-14.5) % Immature Gran # (0.00-0.04) X 10*3/uL POC Glucose (mg/dL) 171 H 213 H 215 H (70-110) mg/dL Calcium (8.7-10.3) mg/dL Total Bilirubin (0.3-1.2) mg/dL AST (13-35) U/L ALT (8-44) U/L Alkaline Phosphatase (41-126) U/L Total Protein (6.2-8.2) g/dL Albumin (3.8-4.9) g/dL Albumin/Globulin Ratio (1.60-3.17) Ratio 04/30/24 04/30/24 04/30/24 Range/Units 05:50 05:50 12:16 RBC 2.79 L (4.10-5.20) X 10*6/uL Hgb 8.1 L (12.0-15.0) g/dL Hct 26.1 L (37.2-46.3) % MCHC 31.0 L (32.0-37.0) g/dL RDW 15.1 H (11.5-14.5) % Immature Gran # 0.09 H (0.00-0.04) X 10*3/uL POC Glucose (mg/dL) 58 L (70-110) mg/dL Calcium 8.0 L (8.7-10.3) mg/dL Total Bilirubin <0.2 L (0.3-1.2) mg/dL AST 12 L (13-35) U/L ALT 5 L (8-44) U/L Alkaline Phosphatase 151 H (41-126) U/L Total Protein 4.6 L (6.2-8.2) g/dL Albumin 2.5 L (3.8-4.9) g/dL Albumin/Globulin Ratio 1.19 L (1.60-3.17) Ratio 04/30/ Range/Units 12:35 RBC (4.10-5.20) X 10*6/uL Hgb (12.0-15.0) g/dL Hct (37.2-46.3) % MCHC (32.0-37.0) g/dL RDW (11.5-14.5) % Immature Gran # (0.00-0.04) X 10*3/uL POC Glucose (mg/dL) 63 L (70-110) mg/dL Calcium (8.7-10.3) mg/dL Total Bilirubin (0.3-1.2) mg/dL AST (13-35) U/L ALT (8-44) U/L Alkaline Phosphatase (41-126) U/L Total Protein (6.2-8.2) g/dL Albumin (3.8-4.9) g/dL Albumin/Globulin Ratio (1.60-3.17) Ratio
[2024-04-30 17:10] LABS: Glucose,Whole Blood 214 mg/dL (70-110)
[2024-04-30 20:08] LABS: Glucose,Whole Blood 217 mg/dL (70-110)
[2024-04-30] MEDS: INSULIN DETEMIR (LEVEMIR) 100 UNIT/ML SYR SQ SCH (22:10)
[2024-05-01 01:31] LABS: Glucose,Whole Blood 262 mg/dL (70-110)
[2024-05-01 07:07] LABS: Glucose,Whole Blood 136 mg/dL (70-110)
--- NOTE | 2024-05-01 11:31 | P.PN ---
Subjective Progress Note Date: 05/01/24 This is a 64-year-old female patient, diabetic with poor compliance, comes in for another episode of DKA. She is altered and encephalopathic in the emergency department. She her blood sugars were above 600. Serum bicarb is less than 5, anion gap was more than 30. Sodium level is 142. WBC count 11.9 hemoglobin of 9.3 and a creatinine of 1.9. Noted she has had previous episodes of DKA, the patient was in the hospital March 2024 and she was hospitalized twice on that month for complications related to DKA. In the emergency, the patient was given 2 L of IV fluids. She currently she is on insulin drip running at 2.5 units an hour. Blood sugar is down to 138 and the patient will be switched to D5 half- normal saline. Subsequent blood work shows a gap of 27 and a serum bicarb of 13. Sodium levels at 147. She is on room air oxygen. Chest x-ray shows no acute abnormalities. CAT scan of the brain also done and shows no acute intracardiac intracranial abnormalities. There is encephalomalacia in bilateral occipital lobes consistent with old infarcts. Noted, the patient is supposed to be on Lantus insulin 25 units daily in addition to Tradjenta on outpatient basis. She has had previous episodes of UTI with Klebsiella pneumoniae on 03/30/2024, treated and a repeat UA is negative for any infection. Urine drug screen is negative. Alcohol level is less than 10. Patient was today on 04/26/2024, patient remains in the ICU, she is recovering quite nicely from her acute diabetic ketoacidosis, patient is doing well, does not seem to be in any distress. WBC count is 14.6 hemoglobin is 8.1 sodium is elevated at 150 potassium 3.6 BUN is 30 creatinine is 0.79. Patient is slightly confused, but she is not in any form of respiratory distress Patient was seen 04/27/2024, remains in the ICU as an overflow, patient is doing great, asymptomatic, on room air, not in any distress. Some vague abdominal discomfort and some nausea but no vomiting. No fever no chills no hemoptysis no chest pain no shortness of breath. No diarrhea.WBC count today is 5 hemoglobin 7.5 basic metabolic profile is normal bicarb is 24 BUN is normal creatinine is normal Seen today on 04/28/2024, patient is doing great, asymptomatic, awaiting transfer to a regular medical floor, in the meantime I believe the primary care admitting physician could consider discharging the patient home since no bed has been available on the floor for the last few days, her DKA has resolved, patient could be considered for discharge planning. The patient is seen today April 29, 2024 in follow-up on the regular medical floor. She was transferred out of the intensive care unit. She is currently sitting up in a chair at the bedside. Awake and alert in no acute distress. She is on room air. She has been afebrile. Hemodynamically stable. Still having issues with episodes of hypoglycemia. Current glucose 83. She remains on Levemir and NovoLog sliding scale. White count 5.5. Hemoglobin 8.7. Platelets 243. The patient is seen today April 30, 2024 in follow-up on the regular medical floor. She is awake and alert in no acute distress. Maintaining good O2 saturations in the 90s on room air. White count 5.0. Hemoglobin 8.1. Platelets 247. Sodium 138. Potassium 4.3. Bicarb 25. BUN 16. Creatinine 0.8. Glucose 83. She remains on a NovoLog sliding scale. No episodes of hypoglycemia overnight. Lovenox for DVT prophylaxis. The patient is seen today May 01, 2024 in follow-up on the regular medical floor. She is resting comfortably in bed. Awake and alert in no acute distress . Maintaining O2 saturations in the 90s on room air. Has any shortness of breath, cough or congestion. Her only complaint is of fatigue. She has been transition to Levemir and NovoLog sliding scale. She remains on Lovenox for DVT prophylaxis. Glucose 136. Objective - Vital Signs Vital signs: Vital Signs Temp 98.6 F 05/01/24 07:08 Pulse 76 05/01/24 07:08 Resp 16 05/01/24 07:08 BP 161/78 05/01/24 07:08 Pulse Ox 95 05/01/24 07:08 FiO2 Intake & Output 04/30/24 05/01/24 05/01/24 18:59 06:59 18:59 Intake Total 1012 Output Total 250 300 Balance 762 -300 Intake: Oral 1012 Output: Urine 250 300 Other: Voiding Method Diaper Incontinent External Catheter # Voids 1 1 - Exam GENERAL EXAM: Alert, pleasant 64-year-old female, appears older than stated age, on room air, in no apparent distress. HEAD: Normocephalic. EYES: Normal reaction of pupils, equal size. NOSE: Clear with pink turbinates. THROAT: No erythema or exudates. NECK: No masses, no JVD. CHEST: No chest wall deformity. LUNGS: Equal air entry with no crackles, wheeze, rhonchi or dullness. CVS: S1 and S2 normal with no audible murmur, regular rhythm. ABDOMEN: No hepatosplenomegaly, normal bowel sounds, no guarding or rigidity. SPINE: No scoliosis or deformity SKIN: No rashes CENTRAL NERVOUS SYSTEM: No focal deficits, tone is normal in all 4 extremities. EXTREMITIES: There is no peripheral edema. No clubbing, no cyanosis. Peripher al pulses are intact. - Labs CBC & Chem 7: 04/30/24 05:50 04/30/24 05:50 Labs: Abnormal Lab Results - Last 24 Hours (Table) 04/30/24 04/30/24 04/30/24 Range/Units 12:16 12:35 17:09 POC Glucose (mg/dL) 58 L 63 L 214 H (70-110) mg/dL 04/30/24 05/01/24 05/01/24 Range/Units 20:03 01:26 07:06 POC Glucose (mg/dL) 217 H 262 H 136 H (70-110) mg/dL Assessment and Plan Assessment: Acute DKA, resolved Acute anion gap metabolic acidosis secondary to above, resolved Acute metabolic encephalopathy, resolved Hypernatremia secondary to free water deficit, will treat with D5W and free water, resolved Remote history of DVT History of renal cell carcinoma and partial right-sided nephrectomy Hypothyroidism History of underlying COPD Diabetic peripheral neuropathy Peripheral vessel occlusive disease History of depression 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 Number of minutes spent on the visit: 23 Dictation was produced using [employer] dictation software. Please excuse any grammatical, word or spelling errors.
[2024-05-01 12:24] LABS: Glucose,Whole Blood 70 mg/dL (70-110)
[2024-05-01 13:04] LABS: Glucose,Whole Blood 84 mg/dL (70-110)
--- NOTE | 2024-05-01 14:56 | P.PN ---
Subjective Progress Note Date: 05/01/24 patient 64-year-old lady with past medical history significant for hypertension, hyperlipidemia, PVD, rheumatoid arthritis, diabetes who presented to the ER for altered mental status. Patient has similar admissions in the past with similar complaints at which time she was found to be in DKA. Patient was brought to the ER because of altered mental status. Family found patient to be confused. Blood sugar was checked and was found to be greater than 600. Patient had no obvious trauma. There was no complaint of weakness of any extremity. There is no complaint of slurred speech. There is no complaint of shortness of breath or chest pain. Because of altered mental status, patient brought to the ED Initial lab work done in the ER showed WBC 11.9, hemoglobin 9.3, platelet count 429, sodium 142, potassium 4.7, BUN 45, creatinine 1.93 glucose 06/17/2005, AST 15, ALT 10, alk phos 173, UA negative for infection Urine drug screen negative Serum alcohol less than 10, acetone positive EKG done in the ER showed heart rate of112 , no ST segment elevation or depression seen, no T-wave inversions seen. Chest x-ray done in the ER showed calcified granuloma at left lung base CT head done showed no acute intracranial process Patient admitted to internal medicine service 04/26/24 Patient was seen and examined today, more awake and alert today, still mild confusion, complains of left sided jaw pain, missing dentures. Afebrile, heart rate 71, respiratory rate 14, blood pressure 99/66, saturating 96% on room air. No new labs from today. 04/27/2024 Patient was seen and examined today, more awake and alert today and O x 3. Left-sided jaw pain is improving. Complains of generalized body ache. Currently on room air. Remained afebrile, vital stable. WBCs 5.0, hemoglobin 7.5, BUN 24, normal creatinine. Blood sugar was low today, decreased Lantus dose. 04/28/2024 Patient was seen and examined today. Patient feeling better today. Alert and oriented x 3. Blood sugars are controlled. Afebrile, heart rate 68, respiratory rate 18, blood pressure 110/72, saturating 95% on room air. 04/29. Patient seen and examined. Blood sugars remain low, decrease Levemir to 10 units at night 04/30. Patient seen and examined. Levemir dose decreased to 8 units at night. Complaining of tooth pain. Continues to have poor appetite 05/01. Patient seen and examined. Appetite has slightly improved. Blood sugars are more stable compared to yesterday with no episodes of blood sugar less than 70 REVIEW OF SYSTEMS: CONSTITUTIONAL: No fever, no malaise,. CARDIOVASCULAR: No chest pain, no palpitations, no syncope. PULMONARY: No shortness of breath, no cough, GASTROINTESTINAL: No diarrhea, no nausea, no vomiting, no abdominal pain. NEUROLOGICAL: No headaches, no weakness, PHYSICAL EXAMINATION: GENERAL: The patient is alert HEENT: Pupils are round and equally reacting to light. EOMI. No scleral icterus. No conjunctival pallor. Normocephalic, atraumatic. No pharyngeal erythema. No thyromegaly. CARDIOVASCULAR: S1 and S2 present. No murmurs, rubs, or gallops. PULMONARY: Chest is clear to auscultation, no wheezing or crackles. ABDOMEN: Soft, nontender, nondistended, normoactive bowel sounds. No palpable organomegaly. MUSCULOSKELETAL: No joint swelling or deformity. EXTREMITIES: No cyanosis, clubbing, or pedal edema. NEUROLOGICAL: Gross neurological examination did not reveal any focal deficits. SKIN: No rashes. Assessment and plan Acute metabolic encephalopathy--improved DKA--resolved Hypoglycemia Acute kidney injury History of coronary artery disease History of CHF hypothyroidism hyperlipidemia COPD Peripheral vascular disease Hypertension Monitor vital signs Monitor CBC Monitor CMP Monitor blood sugar levels, continue sliding insulin Continue Levemir 8 units at night Continue aspirin Continue Synthroid Case management working on placement Labs and medication were reviewed.. Continue same treatment. Continue with symptomatic treatment. Resume home medication. Monitor labs and vitals. DVT and GI prophylaxis. Further recommendations as per clinical course of the patient Dictation was produced using [employer] dictation software. please excuse any grammatical, word or spelling errors. Objective - Vital Signs Vital signs: Vital Signs Temp 97.4 F L 05/01/24 13:29 Pulse 78 05/01/24 13:29 Resp 16 05/01/24 13:29 BP 93/60 05/01/24 13:29 Pulse Ox 95 05/01/24 13:29 FiO2 Intake & Output 04/30/24 05/01/24 05/01/24 18:59 06:59 18:59 Intake Total 1012 Output Total 250 300 Balance 762 -300 Intake: Oral 1012 Output: Urine 250 300 Other: Voiding Method Diaper Incontinent External Catheter # Voids 1 1 - Labs CBC & Chem 7: 04/30/24 05:50 04/30/24 05:50 Labs: Abnormal Lab Results - Last 24 Hours (Table) 04/30/24 04/30/24 05/01/24 Range/Units 17:09 20:03 01:26 POC Glucose (mg/dL) 214 H 217 H 262 H (70-110) mg/dL 05/01/24 Range/Units 07:06 POC Glucose (mg/dL) 136 H (70-110) mg/dL
[2024-05-01 17:13] LABS: Glucose,Whole Blood 281 mg/dL (70-110)
[2024-05-01 20:34] LABS: Glucose,Whole Blood 278 mg/dL (70-110)
[2024-05-02 01:34] LABS: Glucose,Whole Blood 179 mg/dL (70-110)
[2024-05-02 07:05] LABS: Glucose,Whole Blood 48 mg/dL (70-110)
[2024-05-02 07:29] LABS: Glucose,Whole Blood 44 mg/dL (70-110)
[2024-05-02 07:48] LABS: Glucose,Whole Blood 87 mg/dL (70-110)
--- NOTE | 2024-05-02 10:33 | P.PN ---
Subjective Progress Note Date: 05/02/24 This is a 64-year-old female patient, diabetic with poor compliance, comes in for another episode of DKA. She is altered and encephalopathic in the emergency department. She her blood sugars were above 600. Serum bicarb is less than 5, anion gap was more than 30. Sodium level is 142. WBC count 11.9 hemoglobin of 9.3 and a creatinine of 1.9. Noted she has had previous episodes of DKA, the patient was in the hospital March 2024 and she was hospitalized twice on that month for complications related to DKA. In the emergency, the patient was given 2 L of IV fluids. She currently she is on insulin drip running at 2.5 units an hour. Blood sugar is down to 138 and the patient will be switched to D5 half- normal saline. Subsequent blood work shows a gap of 27 and a serum bicarb of 13. Sodium levels at 147. She is on room air oxygen. Chest x-ray shows no acute abnormalities. CAT scan of the brain also done and shows no acute intracardiac intracranial abnormalities. There is encephalomalacia in bilateral occipital lobes consistent with old infarcts. Noted, the patient is supposed to be on Lantus insulin 25 units daily in addition to Tradjenta on outpatient basis. She has had previous episodes of UTI with Klebsiella pneumoniae on 03/30/2024, treated and a repeat UA is negative for any infection. Urine drug screen is negative. Alcohol level is less than 10. Patient was today on 04/26/2024, patient remains in the ICU, she is recovering quite nicely from her acute diabetic ketoacidosis, patient is doing well, does not seem to be in any distress. WBC count is 14.6 hemoglobin is 8.1 sodium is elevated at 150 potassium 3.6 BUN is 30 creatinine is 0.79. Patient is slightly confused, but she is not in any form of respiratory distress Patient was seen 04/27/2024, remains in the ICU as an overflow, patient is doing great, asymptomatic, on room air, not in any distress. Some vague abdominal discomfort and some nausea but no vomiting. No fever no chills no hemoptysis no chest pain no shortness of breath. No diarrhea.WBC count today is 5 hemoglobin 7.5 basic metabolic profile is normal bicarb is 24 BUN is normal creatinine is normal Seen today on 04/28/2024, patient is doing great, asymptomatic, awaiting transfer to a regular medical floor, in the meantime I believe the primary care admitting physician could consider discharging the patient home since no bed has been available on the floor for the last few days, her DKA has resolved, patient could be considered for discharge planning. The patient is seen today April 29, 2024 in follow-up on the regular medical floor. She was transferred out of the intensive care unit. She is currently sitting up in a chair at the bedside. Awake and alert in no acute distress. She is on room air. She has been afebrile. Hemodynamically stable. Still having issues with episodes of hypoglycemia. Current glucose 83. She remains on Levemir and NovoLog sliding scale. White count 5.5. Hemoglobin 8.7. Platelets 243. The patient is seen today April 30, 2024 in follow-up on the regular medical floor. She is awake and alert in no acute distress. Maintaining good O2 saturations in the 90s on room air. White count 5.0. Hemoglobin 8.1. Platelets 247. Sodium 138. Potassium 4.3. Bicarb 25. BUN 16. Creatinine 0.8. Glucose 83. She remains on a NovoLog sliding scale. No episodes of hypoglycemia overnight. Lovenox for DVT prophylaxis. The patient is seen today May 01, 2024 in follow-up on the regular medical floor. She is resting comfortably in bed. Awake and alert in no acute distress . Maintaining O2 saturations in the 90s on room air. Has any shortness of breath, cough or congestion. Her only complaint is of fatigue. She has been transition to Levemir and NovoLog sliding scale. She remains on Lovenox for DVT prophylaxis. Glucose 136. The patient is seen today May 02, 2024 in follow-up on the regular medical floor. She is awake and alert in no acute distress. Resting in bed. No worsening shortness of breath, cough or congestion. Maintaining good O2 saturations in the 90s on room air. Lovenox for DVT prophylaxis. She is still having issues with hypoglycemia with a blood sugar as low as 44 earlier this morning. Currently 87. Levemir being adjusted per primary service. Objective - Vital Signs Vital signs: Vital Signs Temp 97.9 F 05/02/24 07:07 Pulse 85 05/02/24 07:07 Resp 16 05/02/24 07:07 BP 165/82 05/02/24 07:07 Pulse Ox 97 05/02/24 07:07 FiO2 Intake & Output 05/01/24 05/02/24 05/02/24 18:59 06:59 18:59 Intake Total 429 Balance 429 Intake: Oral 429 Other: Voiding Method Diaper Incontinent # Voids 2 2 # Bowel Movements 1 - Exam GENERAL EXAM: Alert, fatigued 64-year-old female, resting in bed, on room air, in no apparent distress. HEAD: Normocephalic. EYES: Normal reaction of pupils, equal size. NOSE: Clear with pink turbinates. THROAT: No erythema or exudates. NECK: No masses, no JVD. CHEST: No chest wall deformity. LUNGS: Equal air entry with no crackles, wheeze, rhonchi or dullness. CVS: S1 and S2 normal with no audible murmur, regular rhythm. ABDOMEN: No hepatosplenomegaly, normal bowel sounds, no guarding or rigidity. SPINE: No scoliosis or deformity SKIN: No rashes CENTRAL NERVOUS SYSTEM: No focal deficits, tone is normal in all 4 extremities. EXTREMITIES: There is no peripheral edema. No clubbing, no cyanosis. Peripheral pulses are intact. - Labs CBC & Chem 7: 04/30/24 05:50 04/30/24 05:50 Labs: Abnormal Lab Results - Last 24 Hours (Table) 05/01/24 05/01/24 05/02/24 Range/Units 17:11 20:26 01:23 POC Glucose (mg/dL) 281 H 278 H 179 H (70-110) mg/dL 05/02/24 05/02/24 Range/Units 07:03 07:27 POC Glucose (mg/dL) 48 L* 44 L* (70-110) mg/dL Assessment and Plan Assessment: Acute DKA, resolved. He will having issues with hypoglycemia. 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 Number of minutes spent on the visit: 24 Dictation was produced using [employer] dictation software. Please excuse any grammatical, word or spelling errors.
[2024-05-02 12:09] LABS: Glucose,Whole Blood 137 mg/dL (70-110)
--- NOTE | 2024-05-02 13:48 | P.PN ---
Subjective Progress Note Date: 05/02/24 patient 64-year-old lady with past medical history significant for hypertension, hyperlipidemia, PVD, rheumatoid arthritis, diabetes who presented to the ER for altered mental status. Patient has similar admissions in the past with similar complaints at which time she was found to be in DKA. Patient was brought to the ER because of altered mental status. Family found patient to be confused. Blood sugar was checked and was found to be greater than 600. Patient had no obvious trauma. There was no complaint of weakness of any extremity. There is no complaint of slurred speech. There is no complaint of shortness of breath or chest pain. Because of altered mental status, patient brought to the ED Initial lab work done in the ER showed WBC 11.9, hemoglobin 9.3, platelet count 429, sodium 142, potassium 4.7, BUN 45, creatinine 1.93 glucose 06/17/2005, AST 15, ALT 10, alk phos 173, UA negative for infection Urine drug screen negative Serum alcohol less than 10, acetone positive EKG done in the ER showed heart rate of112 , no ST segment elevation or depression seen, no T-wave inversions seen. Chest x-ray done in the ER showed calcified granuloma at left lung base CT head done showed no acute intracranial process Patient admitted to internal medicine service 04/26/24 Patient was seen and examined today, more awake and alert today, still mild confusion, complains of left sided jaw pain, missing dentures. Afebrile, heart rate 71, respiratory rate 14, blood pressure 99/66, saturating 96% on room air. No new labs from today. 04/27/2024 Patient was seen and examined today, more awake and alert today and O x 3. Left-sided jaw pain is improving. Complains of generalized body ache. Currently on room air. Remained afebrile, vital stable. WBCs 5.0, hemoglobin 7.5, BUN 24, normal creatinine. Blood sugar was low today, decreased Lantus dose. 04/28/2024 Patient was seen and examined today. Patient feeling better today. Alert and oriented x 3. Blood sugars are controlled. Afebrile, heart rate 68, respiratory rate 18, blood pressure 110/72, saturating 95% on room air. 04/29. Patient seen and examined. Blood sugars remain low, decrease Levemir to 10 units at night 04/30. Patient seen and examined. Levemir dose decreased to 8 units at night. Complaining of tooth pain. Continues to have poor appetite 05/01. Patient seen and examined. Appetite has slightly improved. Blood sugars are more stable compared to yesterday with no episodes of blood sugar less than 70 05/02. Patient seen and examined. Patient had an episode of low blood sugar in 40s this morning. Discussed with patient still regarding the need for her to increase her oral intake. Adjusted patient Levemir from night time dosing to twice daily dosing. REVIEW OF SYSTEMS: CONSTITUTIONAL: No fever, no malaise,. CARDIOVASCULAR: No chest pain, no palpitations, no syncope. PULMONARY: No shortness of breath, no cough, GASTROINTESTINAL: No diarrhea, no nausea, no vomiting, no abdominal pain. NEUROLOGICAL: No headaches, no weakness, PHYSICAL EXAMINATION: GENERAL: The patient is alert HEENT: Pupils are round and equally reacting to light. EOMI. No scleral icterus. No conjunctival pallor. Normocephalic, atraumatic. No pharyngeal erythema. No thyromegaly. CARDIOVASCULAR: S1 and S2 present. No murmurs, rubs, or gallops. PULMONARY: Chest is clear to auscultation, no wheezing or crackles. ABDOMEN: Soft, nontender, nondistended, normoactive bowel sounds. No palpable organomegaly. MUSCULOSKELETAL: No joint swelling or deformity. EXTREMITIES: No cyanosis, clubbing, or pedal edema. NEUROLOGICAL: Gross neurological examination did not reveal any focal deficits. SKIN: No rashes. Assessment and plan Acute metabolic encephalopathy--improved DKA--resolved Hypoglycemia Acute kidney injury History of coronary artery disease History of CHF hypothyroidism hyperlipidemia COPD Peripheral vascular disease Hypertension Monitor vital signs Monitor CBC Monitor CMP Monitor blood sugar levels, continue sliding insulin Change Levemir to 4 units twice a day from nightly dosing Continue aspirin Continue Synthroid Case management working on placement Labs and medication were reviewed.. Continue same treatment. Continue with symptomatic treatment. Resume home medication. Monitor labs and vitals. DVT and GI prophylaxis. Further recommendations as per clinical course of the patient Dictation was produced using [employer] dictation software. please excuse any grammatical, word or spelling errors. Objective - Vital Signs Vital signs: Vital Signs Temp 97.9 F 05/02/24 07:07 Pulse 85 05/02/24 07:07 Resp 16 05/02/24 07:07 BP 165/82 05/02/24 07:07 Pulse Ox 97 05/02/24 07:07 FiO2 Intake & Output 05/01/24 05/02/24 05/02/24 18:59 06:59 18:59 Intake Total 429 Balance 429 Intake: Oral 429 Other: Voiding Method Diaper Incontinent # Voids 2 2 # Bowel Movements 1 - Labs CBC & Chem 7: 04/30/24 05:50 04/30/24 05:50 Labs: Abnormal Lab Results - Last 24 Hours (Table) 05/01/24 05/01/24 05/02/24 Range/Units 17:11 20:26 01:23 POC Glucose (mg/dL) 281 H 278 H 179 H (70-110) mg/dL 05/02/24 05/02/24 Range/Units 07:03 07:27 POC Glucose (mg/dL) 48 L* 44 L* (70-110) mg/dL
[2024-05-02 17:04] LABS: Glucose,Whole Blood 300 mg/dL (70-110)
[2024-05-02 20:16] LABS: Glucose,Whole Blood 294 mg/dL (70-110)
[2024-05-02] MEDS: INSULIN DETEMIR (LEVEMIR) 100 UNIT/ML SYR SQ SCH (20:20)
[2024-05-03 02:08] LABS: Glucose,Whole Blood 317 mg/dL (70-110)
[2024-05-03 07:08] LABS: Glucose,Whole Blood 208 mg/dL (70-110)
[2024-05-03 07:30] VITALS: RESP 16
[2024-05-03 11:56] LABS: Glucose,Whole Blood 222 mg/dL (70-110)
--- NOTE | 2024-05-03 12:14 | P.PN ---
Subjective Progress Note Date: 05/03/24 This is a 64-year-old female patient, diabetic with poor compliance, comes in for another episode of DKA. She is altered and encephalopathic in the emergency department. She her blood sugars were above 600. Serum bicarb is less than 5, anion gap was more than 30. Sodium level is 142. WBC count 11.9 hemoglobin of 9.3 and a creatinine of 1.9. Noted she has had previous episodes of DKA, the patient was in the hospital March 2024 and she was hospitalized twice on that month for complications related to DKA. In the emergency, the patient was given 2 L of IV fluids. She currently she is on insulin drip running at 2.5 units an hour. Blood sugar is down to 138 and the patient will be switched to D5 half- normal saline. Subsequent blood work shows a gap of 27 and a serum bicarb of 13. Sodium levels at 147. She is on room air oxygen. Chest x-ray shows no acute abnormalities. CAT scan of the brain also done and shows no acute intracardiac intracranial abnormalities. There is encephalomalacia in bilateral occipital lobes consistent with old infarcts. Noted, the patient is supposed to be on Lantus insulin 25 units daily in addition to Tradjenta on outpatient basis. She has had previous episodes of UTI with Klebsiella pneumoniae on 03/30/2024, treated and a repeat UA is negative for any infection. Urine drug screen is negative. Alcohol level is less than 10. Patient was today on 04/26/2024, patient remains in the ICU, she is recovering quite nicely from her acute diabetic ketoacidosis, patient is doing well, does not seem to be in any distress. WBC count is 14.6 hemoglobin is 8.1 sodium is elevated at 150 potassium 3.6 BUN is 30 creatinine is 0.79. Patient is slightly confused, but she is not in any form of respiratory distress Patient was seen 04/27/2024, remains in the ICU as an overflow, patient is doing great, asymptomatic, on room air, not in any distress. Some vague abdominal discomfort and some nausea but no vomiting. No fever no chills no hemoptysis no chest pain no shortness of breath. No diarrhea.WBC count today is 5 hemoglobin 7.5 basic metabolic profile is normal bicarb is 24 BUN is normal creatinine is normal Seen today on 04/28/2024, patient is doing great, asymptomatic, awaiting transfer to a regular medical floor, in the meantime I believe the primary care admitting physician could consider discharging the patient home since no bed has been available on the floor for the last few days, her DKA has resolved, patient could be considered for discharge planning. The patient is seen today April 29, 2024 in follow-up on the regular medical floor. She was transferred out of the intensive care unit. She is currently sitting up in a chair at the bedside. Awake and alert in no acute distress. She is on room air. She has been afebrile. Hemodynamically stable. Still having issues with episodes of hypoglycemia. Current glucose 83. She remains on Levemir and NovoLog sliding scale. White count 5.5. Hemoglobin 8.7. Platelets 243. The patient is seen today April 30, 2024 in follow-up on the regular medical floor. She is awake and alert in no acute distress. Maintaining good O2 saturations in the 90s on room air. White count 5.0. Hemoglobin 8.1. Platelets 247. Sodium 138. Potassium 4.3. Bicarb 25. BUN 16. Creatinine 0.8. Glucose 83. She remains on a NovoLog sliding scale. No episodes of hypoglycemia overnight. Lovenox for DVT prophylaxis. The patient is seen today May 01, 2024 in follow-up on the regular medical floor. She is resting comfortably in bed. Awake and alert in no acute distress . Maintaining O2 saturations in the 90s on room air. Has any shortness of breath, cough or congestion. Her only complaint is of fatigue. She has been transition to Levemir and NovoLog sliding scale. She remains on Lovenox for DVT prophylaxis. Glucose 136. The patient is seen today May 02, 2024 in follow-up on the regular medical floor. She is awake and alert in no acute distress. Resting in bed. No worsening shortness of breath, cough or congestion. Maintaining good O2 saturations in the 90s on room air. Lovenox for DVT prophylaxis. She is still having issues with hypoglycemia with a blood sugar as low as 44 earlier this morning. Currently 87. Levemir being adjusted per primary service. The patient is seen today May 03, 2024 in follow-up on the regular medical floor. She is currently resting comfortably in bed. Awake and alert in no acute distress. Denies any worsening shortness of breath, cough or congestion. Attaining good O2 saturations in the 90s on room air. She remains on Levemir. Lovenox for DVT prophylaxis. Glucose 222. No episodes of hypoglycemia in the past 24 hours. Objective - Vital Signs Vital signs: Vital Signs Temp 98.2 F 05/03/24 07:01 Pulse 82 05/03/24 07:01 Resp 16 05/03/24 07:01 BP 150/87 05/03/24 07:01 Pulse Ox 96 05/03/24 09:23 FiO2 Intake & Output 05/02/24 05/03/24 05/03/24 18:59 06:59 18:59 Intake Total 522 240 Balance 522 240 Intake: Oral 522 240 Other: Voiding Method Diaper Diaper Diaper Incontinent Incontinent Incontinent # Voids 2 1 # Bowel Movements 1 - Exam GENERAL EXAM: Alert, pleasant 64-year-old female, on room air, in no apparent distress. HEAD: Normocephalic. EYES: Normal reaction of pupils, equal size. NOSE: Clear with pink turbinates. THROAT: No erythema or exudates. NECK: No masses, no JVD. CHEST: No chest wall deformity. LUNGS: Equal air entry with no crackles, wheeze, rhonchi or dullness. CVS: S1 and S2 normal with no audible murmur, regular rhythm. ABDOMEN: No hepatosplenomegaly, normal bowel sounds, no guarding or rigidity. SPINE: No scoliosis or deformity SKIN: No rashes CENTRAL NERVOUS SYSTEM: No focal deficits, tone is normal in all 4 extremities. EXTREMITIES: There is no peripheral edema. No clubbing, no cyanosis. Peripheral pulses are intact. - Labs CBC & Chem 7: 04/30/24 05:50 04/30/24 05:50 Labs: Abnormal Lab Results - Last 24 Hours (Table) 05/02/24 05/02/24 05/03/24 Range/Units 17:03 20:14 02:07 POC Glucose (mg/dL) 300 H 294 H 317 H (70-110) mg/dL 05/03/24 05/03/24 Range/Units 07:06 11:55 POC Glucose (mg/dL) 208 H 222 H (70-110) mg/dL Assessment and Plan Assessment: Acute DKA, resolved. Initially seen in the intensive care unit. 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 Number of minutes spent on the visit: 22 Dictation was produced using [employer] dictation software. Please excuse any grammatical, word or spelling errors.
[2024-05-03 12:41] VITALS: BP 110/57; PULSE 78; TEMP 98
--- NOTE | 2024-05-03 12:42 | P.DS ---
Providers Date of admission: 04/25/24 00:57 Expected date of discharge: 05/03/24 Attending physician: Danielle Hill Consults: 04/25/24 00:58 Consult Physician Routine Consulting Provider: Beulah Carey Consult Reason/Comments: DKA admission Do you want consulting provider notified?: Yes Primary care physician: Stated None Hospital Course: Discharge diagnoses; Acute metabolic encephalopathy--improved DKA--resolved Hypoglycemia Acute kidney injury History of coronary artery disease History of CHF hypothyroidism hyperlipidemia COPD Peripheral vascular disease Hypertension Hospital course; patient 64-year-old lady with past medical history significant for hypertension, hyperlipidemia, PVD, rheumatoid arthritis, diabetes who presented to the ER for altered mental status. Patient has similar admissions in the past with similar complaints at which time she was found to be in DKA. Patient was brought to the ER because of altered mental status. Family found patient to be confused. Blood sugar was checked and was found to be greater than 600. Patient had no obvious trauma. There was no complaint of weakness of any extremity. There is no complaint of slurred speech. There is no complaint of shortness of breath or chest pain. Because of altered mental status, patient brought to the ED Initial lab work done in the ER showed WBC 11.9, hemoglobin 9.3, platelet count 429, sodium 142, potassium 4.7, BUN 45, creatinine 1.93 glucose 06/17/2005, AST 15, ALT 10, alk phos 173, UA negative for infection Urine drug screen negative Serum alcohol less than 10, acetone positive EKG done in the ER showed heart rate of112 , no ST segment elevation or depression seen, no T-wave inversions seen. Chest x-ray done in the ER showed calcified granuloma at left lung base CT head done showed no acute intracranial process Patient admitted to internal medicine service 04/26/24 Patient was seen and examined today, more awake and alert today, still mild confusion, complains of left sided jaw pain, missing dentures. Afebrile, heart rate 71, respiratory rate 14, blood pressure 99/66, saturating 96% on room air. No new labs from today. 04/27/2024 Patient was seen and examined today, more awake and alert today and O x 3. Left-sided jaw pain is improving. Complains of generalized body ache. Currently on room air. Remained afebrile, vital stable. WBCs 5.0, hemoglobin 7.5, BUN 24, normal creatinine. Blood sugar was low today, decreased Lantus dose. 04/28/2024 Patient was seen and examined today. Patient feeling better today. Alert and oriented x 3. Blood sugars are controlled. Afebrile, heart rate 68, respiratory rate 18, blood pressure 110/72, saturating 95% on room air. 04/29. Patient seen and examined. Blood sugars remain low, decrease Levemir to 10 units at night 04/30. Patient seen and examined. Levemir dose decreased to 8 units at night. Complaining of tooth pain. Continues to have poor appetite 05/01. Patient seen and examined. Appetite has slightly improved. Blood sugars are more stable compared to yesterday with no episodes of blood sugar less than 70 05/02. Patient seen and examined. Patient had an episode of low blood sugar in 40s this morning. Discussed with patient still regarding the need for her to increase her oral intake. Adjusted patient Levemir from night time dosing to twice daily dosing. 05/03. Patient seen and examined. Patient blood sugars are elevated now, no further episodes of hypoglycemia. Will keep patient on Levemir 5 units twice a day with sliding scale insulin at discharge PHYSICAL EXAMINATION: GENERAL: The patient is alert and oriented x3, not in any acute distress. Well developed, well nourished. HEENT: Pupils are round and equally reacting to light. EOMI. No scleral icterus. No conjunctival pallor. Normocephalic, atraumatic. No pharyngeal erythema. No thyromegaly. CARDIOVASCULAR: S1 and S2 present. No murmurs, rubs, or gallops. PULMONARY: Chest is clear to auscultation, no wheezing or crackles. ABDOMEN: Soft, nontender, nondistended, normoactive bowel sounds. No palpable organomegaly. MUSCULOSKELETAL: No joint swelling or deformity. EXTREMITIES: No cyanosis, clubbing, or pedal edema. NEUROLOGICAL: Gross neurological examination did not reveal any focal deficits. SKIN: No rashes. Dictation was produced using [employer] dictation software. please excuse any grammatical, word or spelling errors. Patient Condition at Discharge: Good Plan - Discharge Summary Discharge Rx Participant: Yes New Discharge Prescriptions: New Insulin Detemir (Levemir) [Levemir] 5 unit SQ BID each Continue Venlafaxine HCl [Effexor XR] 225 mg PO DAILY Pantoprazole Sodium [Protonix] 40 mg PO BID Aspirin EC [Ecotrin Low Dose] 81 mg PO DAILY Mirtazapine 7.5 mg PO HS cilostazoL [Pletal] 100 mg PO BID Metoprolol Succinate (ER) [Toprol XL] 25 mg PO DAILY #60 tab Folic Acid 1 mg PO DAILY tab Isosorbide Mononitrate ER [Imdur] 30 mg PO DAILY Linagliptin [Tradjenta] 5 mg PO DAILY #30 tab INSULIN LISPRO (HumaLOG) [humaLOG] See Protocol SQ AC-TID PRN PRN Reason: Blood Sugar - High Acetaminophen Tab [Tylenol] 650 mg PO Q6HR PRN tab PRN Reason: Mild To Moderate Pain (1 - 6) Cyanocobalamin [Vitamin B-12] 1,000 mcg PO TID Nystatin 100,000 Unit/gm Powd [Mycostatin Powder] 1 applic TOPICAL TID 7 Days #30 gm Levothyroxine Sodium [Synthroid] 50 mcg PO DAILY #30 tab Fluconazole [Diflucan] 150 mg PO DIRECTED Discontinued Insulin Glargine,Hum.rec.anlog [Lantus Solostar Pen] 25 units SQ HS #5 each Amoxic-Pot Clav 875-125Mg [Augmentin 875-125] 1 tab PO DIRECTED Discharge Medication List Venlafaxine HCl [Effexor XR] 225 mg PO DAILY 10/21/16 [History] Pantoprazole Sodium [Protonix] 40 mg PO BID 04/06/20 [History] Aspirin EC [Ecotrin Low Dose] 81 mg PO DAILY 10/03/22 [History] Isosorbide Mononitrate ER [Imdur] 30 mg PO DAILY 04/10/23 [History] Mirtazapine 7.5 mg PO HS 04/10/23 [History] cilostazoL [Pletal] 100 mg PO BID 08/02/23 [History] Metoprolol Succinate (ER) [Toprol XL] 25 mg PO DAILY #60 tab 08/05/23 [Rx] Linagliptin [Tradjenta] 5 mg PO DAILY #30 tab 09/05/23 [Rx] INSULIN LISPRO (HumaLOG) [humaLOG] See Protocol SQ AC-TID PRN 02/12/24 [History] Acetaminophen Tab [Tylenol] 650 mg PO Q6HR PRN tab 02/18/24 [Rx] Folic Acid 1 mg PO DAILY tab 02/18/24 [Rx] Cyanocobalamin [Vitamin B-12] 1,000 mcg PO TID 03/26/24 [History] Nystatin 100,000 Unit/gm Powd [Mycostatin Powder] 1 applic TOPICAL TID 7 Days #30 gm 04/13/24 [Rx] Levothyroxine Sodium [Synthroid] 50 mcg PO DAILY #30 tab 04/17/24 [Rx] Fluconazole [Diflucan] 150 mg PO DIRECTED 04/25/24 [History] Insulin Detemir (Levemir) [Levemir] 5 unit SQ BID each 05/03/24 [Rx] Follow up Appointment(s)/Referral(s): None,Stated [Primary Care Provider] - 1-2 days Discharge/Stand Alone Forms: Area PCPs Discharge Disposition: HOME SELF-CARE
== END 2024-05-03 14:24 | disposition home or self-care (01) | DRG 420 ==
LOC: EC 21:19 → 2SICU 04-25 00:57 → 5NMEDONC 04-28 20:21
PROVIDERS: ADMIT Hospitalist; ATTEND Hospitalist
PROC: 02HV33Z Insertion of Infusion Device into Superior Vena Cava, Percutaneous Approach (ICD-10-PCS; principal; 2024-04-25)
DX: E11.10 Type 2 diabetes mellitus with ketoacidosis without coma (principal); E11.42 Type 2 diabetes mellitus with diabetic polyneuropathy; E11.51 Type 2 diabetes mellitus with diabetic peripheral angiopathy without gangrene; E11.649 Type 2 diabetes mellitus with hypoglycemia without coma; G93.41 Metabolic encephalopathy; N17.9 Acute kidney failure, unspecified; E87.0 Hyperosmolality and hypernatremia; J84.10 Pulmonary fibrosis, unspecified; G93.89 Other specified disorders of brain; I11.0 Hypertensive heart disease with heart failure; I50.9 Heart failure, unspecified; J44.9 Chronic obstructive pulmonary disease, unspecified; E03.9 Hypothyroidism, unspecified; E78.5 Hyperlipidemia, unspecified; F32.A Depression, unspecified; G25.81 Restless legs syndrome; I25.10 Atherosclerotic heart disease of native coronary artery without angina pectoris; M06.9 Rheumatoid arthritis, unspecified; G47.30 Sleep apnea, unspecified; K21.9 Gastro-esophageal reflux disease without esophagitis; I25.2 Old myocardial infarction; Z79.82 Long term (current) use of aspirin; Z79.890 Hormone replacement therapy; Z79.02 Long term (current) use of antithrombotics/antiplatelets; Z79.4 Long term (current) use of insulin; Z79.84 Long term (current) use of oral hypoglycemic drugs; Z79.899 Other long term (current) drug therapy; Z96.1 Presence of intraocular lens; Z95.5 Presence of coronary angioplasty implant and graft; Z90.5 Acquired absence of kidney; Z87.891 Personal history of nicotine dependence; Z86.73 Personal history of transient ischemic attack (TIA), and cerebral infarction without residual deficits; Z86.718 Personal history of other venous thrombosis and embolism; Z85.528 Personal history of other malignant neoplasm of kidney; Z88.2 Allergy status to sulfonamides; Z88.8 Allergy status to other drugs, medicaments and biological substances; Z91.040 Latex allergy status; Z83.3 Family history of diabetes mellitus; Z82.49 Family history of ischemic heart disease and other diseases of the circulatory system
CPT/HCPCS: 36415; 36556; 51702; 70450; 71045; 80048; 80051; 80053; 80306; 80320; 81003; 82009; 82565; 82803; 82947; 83735; 84100; 84484; 84520; 85025; 85610; 85730; 93005; 94760; 96360; 96361; 99291